=== PATIENT | male | born 1945 | race Caucasian/White ===

== ENCOUNTER 2023-03-13 09:13 | Outpatient (OUT) | payer MEDICARE, SELFPAY ==
--- NOTE | 2023-03-13 13:02 | PM.CN ---
Consult Note: HPI Data of Consult Patient: known to practice within the last 3 years Consult date: 03/13/23 Requesting Physician: DEANNA FAUST NP Primary Care Provider: Valentino ANDRES Consult Narrative Reason for consult: low back pain Narrative: Ramon is here for f/u of first dx MBB bilat L4/5, L5/S1 done 02/25/23. He had 100% relief of pain and increased fx for several hours after procedure. He would like to proceed with the second dx MBB. He is on plavix. No new sensorimotor or bowel or bladder issues. Pain is in bilat lower back worse with ROM. No radicular sx. cc:: CC: DEANNA FAUST NP Review of Systems ROS Status of ROS 10 or more systems reviewed and unremarkable except as noted in history and below [facility] Medical History (Updated 03/13/23 @ 13:06 by DEANNA FAUST NP) Surgical History Meds Home Medications and Allergies Home Medications Medication Instructions Recorded Confirmed Type B complex 11-folic acid 1 mg-C 100 1 tab PO QDAY 03/13/23 03/13/23 History mg-biotin 300 mcg-zinc 50 mg tablet (Dialyvite) acetaminophen 325 mg capsule 500 mg PO QID PRN pain 03/13/23 03/13/23 History (Tylenol) amlodipine 10 mg tablet 10 mg PO QDAY 03/13/23 03/13/23 History ascorbic acid (vitamin C) 1,000 mg 1 g PO QDAY 03/13/23 03/13/23 History tablet (C-1000) aspirin 325 mg tablet,delayed 81 mg PO QDAY 03/13/23 03/13/23 History release atorvastatin 20 mg tablet 20 mg PO QDAY 03/13/23 03/13/23 History baclofen 10 mg tablet 10 mg PO BID 03/13/23 03/13/23 History clopidogrel 75 mg tablet (Plavix) 75 mg PO QDAY 03/13/23 03/13/23 History coenzyme Q10 75 mg capsule (Ultra 75 mg PO QDAY 03/13/23 03/13/23 History CoQ10) glimepiride 1 mg tablet (Amaryl) 1 mg PO QDAY 03/13/23 03/13/23 History hydrocodone 5 mg-acetaminophen 325 1 tab PO BID 03/13/23 03/13/23 History mg tablet insulin glargine 100 unit/mL (3 10 unit subcut QAM 03/13/23 03/13/23 History mL) subcutaneous pen (Lantus Solostar U-100 Insulin) lisinopril 10 mg tablet 10 mg PO QDAY 03/13/23 03/13/23 History metoprolol succinate 25 mg PO QDAY 03/13/23 03/13/23 History omega 5-dip-msb-fish oil 1,000 mg 1 cap PO QDAY 03/13/23 03/13/23 History (120 mg-180 mg) capsule (Fish Oil) oxybutynin chloride 10 mg 10 mg PO QDAY 03/13/23 03/13/23 History tablet,extended release 24 hr vitamin B complex (B 1 tab PO QDAY 03/13/23 03/13/23 History Complex-Vitamin B12 tablet) vitamin E 268 mg (400 unit) capsule 180 mg PO QDAY 03/13/23 03/13/23 History Allergies Allergy/AdvReac Type Severity Reaction Status Date / Time No Known Drug Allergies Allergy Verified 03/13/23 11:51 Exam Constitutional: Common normals: no apparent distress, average body habitus, oriented x3, no limitations, healthy appearing, alert and well nourished Exam limitations: physical limitations General appearance: cooperative, comfortable, well developed and well hydrated Orientation/consciousness: Yes awake, Yes oriented to person, Yes oriented to place and Yes oriented to time HENMT: Common normals: normocephalic Head and scalp: normal to inspection Respiratory: Common normals: normal respiratory effort, no retractions and no use of accessory muscles Effort & inspection: able to speak in complete sentences Back & Pelvis: Lumbar spine/lower back: normal to inspection, ROM limited, pain with ROM, paraspinal muscle tenderness, straight leg raise negative bilaterally and other soft tissue findings (positive facet loading bilat) Other lumbar soft tissue findings laterality: bilateral Extremity: Common normals: normal to inspection and normal capillary refill Other: muscle strength 4/5 bilat with intact sensation to LE bilat Skin: Common normals: no rashes or lesions noted Assessment and Plan Assessment and Plan (1) Lumbar spondylosis: Plan schedule second dx MBB bilat lumbar L4/5, L5/S1 under fluoroscopy with ultimate progression to thermal RFA
== END 2023-03-13 09:14 ==
PROVIDERS: PCP Family Medicine; Visit Provider Nurse Practitioner
DX: M47.816 Spondylosis without myelopathy or radiculopathy, lumbar region (principal)
CPT/HCPCS: G0463

== ENCOUNTER 2023-04-08 09:16 | Day surgery (SDC) | payer MEDICARE, SELFPAY ==
[2023-04-08 11:01] VITALS: BP 156/96; PULSE 62; RESP 18; TEMP 37; O2SAT 98
[2023-04-08 11:07] LABS: Glucometer 222 mg/dL (74-106)
[2023-04-08 11:31] VITALS: RESP 20
[2023-04-08 11:33] VITALS: BP 156/77; PULSE 81; O2SAT 96
[2023-04-08] MEDS: BUPIVACAINE HCL 0.25% PF 25 MG/10 ML VIAL 8 ML INJ (11:34)
[2023-04-08 11:37] VITALS: BP 159/80; PULSE 78; O2SAT 97
--- NOTE | 2023-04-08 11:41 | W.PM.PROCNOT ---
Date of procedure: 04/08/23 Procedure: Bilateral Lumbar 4/5 & 5/Sacral 1 facet injection Preop diagnosis includes pain secondary to lumbar spondylosis, Postop diagnosis same Under fluoroscopic guidance Solution injected: 2milliliters Marcaine 0.25% Anesthesia :none Immediate complications none Time out process compliant After informed consent obtained from the patient placed in the [employer] proposition . area was prepped and draped in a sterile fashion using betadine. 25 gauge spinal needle inserted over each of the above mentioned target areas . [place] were directed towards the target under fluoroscopic guidance . after encountering each of the targets , no indication of intravascular intraneuronal or intrathecal needle tip placement. Then 0 .5 to 1 Milliliter was injected at each level. [place] removed postoperatively. patient transferred to recovery in stable condition to be discharged home after meeting criteria Surgeon: Mery Peterson
== END 2023-04-08 11:42 | disposition home or self-care (01) ==
LOC: SURGOUT 09:19
PROVIDERS: PCP Family Medicine; Visit Provider Anesthesiology Pain Medicine
DX: M47.816 Spondylosis without myelopathy or radiculopathy, lumbar region (principal)
CPT/HCPCS: 36415; 64493; 64494; 82948

== ENCOUNTER 2023-04-24 09:42 | Outpatient (OUT) | payer MEDICARE, SELFPAY ==
--- NOTE | 2023-04-24 10:04 | PM.CN ---
Consult Note: HPI Data of Consult Patient: known to practice within the last 3 years Consult date: 04/24/23 Requesting Physician: DEANNA FAUST NP Primary Care Provider: Valentino ANDRES Consult Narrative Narrative: Here for f/u of second MBB lumbar done 04/08/23. He received 100% relief of pain with increased fx for several hours after procedure. He would like to proceed with RFA of same area. Procedure discussed in detail. Pain is bilat lumbar area worse with all ROM. No radicular sx. No new sensorimotor or bowel or bladder issues. No adverse med SE. cc:: CC: DEANNA FAUST NP Review of Systems ROS Status of ROS 10 or more systems reviewed and unremarkable except as noted in history and below Musculoskeletal Reports: back pain PFSH PFSH Medical History (Updated 04/24/23 @ 10:14 by DEANNA FAUST NP) Surgical History Meds Home Medications and Allergies Home Medications Medication Instructions Recorded Confirmed Type B complex 11-folic acid 1 mg-C 100 1 tab PO QDAY 03/13/23 04/08/23 History mg-biotin 300 mcg-zinc 50 mg tablet (Dialyvite) acetaminophen 325 mg capsule 500 mg PO QID PRN pain 03/13/23 04/08/23 History (Tylenol) amlodipine 10 mg tablet 10 mg PO QDAY 03/13/23 04/08/23 History ascorbic acid (vitamin C) 1,000 mg 1 g PO QDAY 03/13/23 04/08/23 History tablet (C-1000) aspirin 325 mg tablet,delayed 81 mg PO QDAY 03/13/23 04/08/23 History release atorvastatin 20 mg tablet 20 mg PO QDAY 03/13/23 04/08/23 History baclofen 10 mg tablet 10 mg PO BID 03/13/23 04/08/23 History clopidogrel 75 mg tablet (Plavix) 75 mg PO QDAY 03/13/23 04/08/23 History coenzyme Q10 75 mg capsule (Ultra 75 mg PO QDAY 03/13/23 04/08/23 History CoQ10) glimepiride 1 mg tablet (Amaryl) 1 mg PO QDAY 03/13/23 04/08/23 History hydrocodone 5 mg-acetaminophen 325 1 tab PO BID 03/13/23 04/08/23 History mg tablet insulin glargine 100 unit/mL (3 10 unit subcut QAM 03/13/23 04/08/23 History mL) subcutaneous pen (Lantus Solostar U-100 Insulin) lisinopril 10 mg tablet 10 mg PO QDAY 03/13/23 04/08/23 History metoprolol succinate 25 mg PO QDAY 03/13/23 04/08/23 History omega 9-wed-zkm-fish oil 1,000 mg 1 cap PO QDAY 03/13/23 04/08/23 History (120 mg-180 mg) capsule (Fish Oil) oxybutynin chloride 10 mg 10 mg PO QDAY 03/13/23 04/08/23 History tablet,extended release 24 hr vitamin B complex (B 1 tab PO QDAY 03/13/23 04/08/23 History Complex-Vitamin B12 tablet) vitamin E 268 mg (400 unit) capsule 180 mg PO QDAY 03/13/23 04/08/23 History Allergies Allergy/AdvReac Type Severity Reaction Status Date / Time No Known Drug Allergies Allergy Verified 04/08/23 10:57 Exam Constitutional Documenting provider has reviewed patient's vital signs: yes Common normals: no apparent distress, average body habitus, oriented x3, alert and well nourished General appearance: cooperative, comfortable and well developed Orientation/consciousness: Yes awake, Yes oriented to person, Yes oriented to place and Yes oriented to time HENMO Common normals: normocephalic and moist oral mucous membranes Respiratory Common normals: normal respiratory effort, no retractions and no use of accessory muscles Effort & inspection: able to speak in complete sentences and symmetric chest movement Back & Pelvis Lumbar spine/lower back: normal to inspection, ROM limited, pain with ROM, paraspinal muscle tenderness and paraspinal muscle spasm Other: muscle strength 4/5 bilat LE with intact sensation no radicular sx positive facet load bilat Assessment and Plan Assessment and Plan (1) Lumbar spondylosis: (2) Muscle spasm: Plan schedule for right sided thermal RFA L4/5, L5/S1 followed by left RFA L4/5, L5/S1 under fluoroscopy
== END 2023-04-24 09:43 | disposition home or self-care (01) ==
LOC: PM 09:43
PROVIDERS: PCP Family Medicine; Visit Provider Nurse Practitioner
DX: M47.816 Spondylosis without myelopathy or radiculopathy, lumbar region (principal); M62.838 Other muscle spasm
CPT/HCPCS: G0463

== ENCOUNTER 2023-05-22 06:58 | Day surgery (SDC) | payer MEDICARE, SELFPAY ==
[2023-05-22 07:24] VITALS: BP 142/77; PULSE 73; RESP 18; TEMP 36.1; O2SAT 99
[2023-05-22 08:11] VITALS: RESP 20
[2023-05-22 08:13] VITALS: BP 194/63; PULSE 65; O2SAT 96
[2023-05-22 08:15] LABS: Glucometer 107 mg/dL (74-106)
[2023-05-22] MEDS: METHYLPREDNISOLONE ACETATE 40 MG/ML VIAL INJ (08:17)
[2023-05-22] MEDS: BUPIVACAINE HCL 0.25% PF 25 MG/10 ML VIAL 4 ML INJ (08:17)
[2023-05-22] MEDS: LIDOCAINE HCL 2% 400 MG/20 ML MDV 15 ML INJ (08:17)
[2023-05-22 08:19] VITALS: BP 169/77; PULSE 60; O2SAT 97
--- NOTE | 2023-05-22 08:47 | PC.NURSE ---
Stephanie interrogated post procedure, pt tolerated well. [employer] rep received transmission and stated that pacer was working properly. Written report faxed and p laced on pts chart.
--- NOTE | 2023-05-22 11:10 | W.PM.PROCNOT ---
Date of procedure: 05/22/23 Pre-op diagnosis: lumbar spondylosis Post-op diagnosis: same as pre-op Procedure: Right lumbar 4/5, 5/sacral 1 Radiofrequency ablation Under fluoroscopic guidance Rhizotomy was created using radio frequency ablation at 80?C for 90 seconds 1 to 2 lesions created at each site. Post lesioning injection of 2 mL each of 0.25% Marcaine and 2% lidocaine with Depo-Medrol 40mg. 0.5 to 1 mL injected at each site IV in place yes/no If Intravenous fluids: NS at KVO Anesthesia local 2% lidocaine for Anesthesia Other: MAC Timeout process compliant After informed consent obtained.Patient brought to the procedure room placed in the prone position skin overlying the area was prepped and draped in a sterile fashion using betadine. 25 gauge needle was used to create a skin wheal over each of the targeted areas utilizing 2% lidocaine. A rhizotomy needle with a 10 mm active tip was inserted over each of the anesthetized areas and directed towards each of the medial branches accomplished under fluoroscopic guidance. after encountering the same we had positive sensory stimulation, negative motor stimulation was noted. lesions were then created. Post lesioning, steroid solution was injected needles removed. Patient was transferred to recovery room in stable condition to be discharged home after meeting criteria. Anesthesia: MAC Surgeon: Mery Peterson Condition: stable
== END 2023-05-22 08:47 | disposition home or self-care (01) ==
PROVIDERS: PCP Family Medicine; Visit Provider Anesthesiology Pain Medicine
DX: M47.816 Spondylosis without myelopathy or radiculopathy, lumbar region (principal); E11.9 Type 2 diabetes mellitus without complications
CPT/HCPCS: 36415; 36416; 64635; 64636; 82948; J1030

== ENCOUNTER 2023-06-17 09:46 | Day surgery (SDC) | payer MEDICARE, SELFPAY ==
[2023-06-17 10:18] VITALS: BP 151/69; RESP 16; TEMP 37
[2023-06-17 11:15] VITALS: BP 142/69; PULSE 76; RESP 18; O2SAT 99
[2023-06-17] MEDS: LIDOCAINE HCL 2% 400 MG/20 ML MDV 15 ML INJ (11:17)
[2023-06-17] MEDS: BUPIVACAINE HCL 0.25% PF 25 MG/10 ML VIAL INJ (11:17)
[2023-06-17] MEDS: METHYLPREDNISOLONE ACETATE 40 MG/ML VIAL INJ (11:18)
[2023-06-17 11:20] VITALS: BP 140/69; PULSE 63; RESP 18; O2SAT 99
--- NOTE | 2023-06-17 13:03 | PC.NURSE ---
Patient cleared by [employer] Erick tran via phonecall after report transmitted. There was problematic connection on getting it transmitted to them, which was why the patient had to remain in recovery for so long. He was sending report by fax to us.
--- NOTE | 2023-06-17 13:12 | W.PM.PROCNOT ---
Date of procedure: 06/17/23 Pre-op diagnosis: Lumbar spondylosis Post-op diagnosis: same as pre-op Procedure: Left lumbar 4/5, 5/Sacral 1 Radiofrequency ablation Under fluoroscopic guidance Rhizotomy was created using radio frequency ablation at 80?C for 90 seconds 1 to 2 lesions created at each site. Post lesioning injection of 2 mL each of 0.25% Marcaine and 2% lidocaine with Depo-Medrol 40mg. 0.5 to 1 mL injected at each site If Intravenous fluids: NS at KVO Anesthesia local 2% lidocaine for Anesthesia Other: local, no IV Timeout process compliant After informed consent obtained.Patient brought to the procedure room placed in the prone position skin overlying the area was prepped and draped in a sterile fashion using betadine. 25 gauge needle was used to create a skin wheal over each of the targeted areas utilizing 2% lidocaine. A rhizotomy needle with a 10 mm active tip was inserted over each of the anesthetized areas and directed towards each of the medial branches accomplished under fluoroscopic guidance. after encountering the same we had positive sensory stimulation, negative motor stimulation was noted. lesions were then created. Post lesioning, steroid solution was injected needles removed. Patient was transferred to recovery room in stable condition to be discharged home after meeting criteria. Anesthesia: Local Surgeon: eMry Peterson Condition: stable
== END 2023-06-17 12:59 | disposition home or self-care (01) ==
LOC: SURGOUT 09:48
PROVIDERS: PCP Family Medicine; Visit Provider Anesthesiology Pain Medicine
DX: M47.816 Spondylosis without myelopathy or radiculopathy, lumbar region (principal); Z79.84 Long term (current) use of oral hypoglycemic drugs; Z79.4 Long term (current) use of insulin
CPT/HCPCS: 64635; 64636; 82948; J1030

== ENCOUNTER 2023-07-24 09:20 | Outpatient (OUT) | payer MEDICARE, SELFPAY ==
--- NOTE | 2023-07-24 09:45 | P.CN_ITS ---
Consult Note: HPI Data of Consult Patient: known to practice within the last 3 years Requesting Physician: DEANNA FAUST NP Primary Care Provider: Valentino ANDRES Consult Narrative Reason for consult: f/u Narrative: Ramon Mariee a pleasant 78 year old male presents for evaluation and management of chronic low back pain without radiculopathy. Today rating pain 4/10, pain is increased with walking standing ADLS bending lifting and decreased with rest and sleep. Patient recently had left and right L4-5 L5-S1 RFAs with 10% pain relief, no functional improvement per patient. Patient would like to discuss medication management. Patient has been taking tylenol without relief. Previously tried tramadol without relief, had filled hydrocodone-acetaminophen unsure of benefit. cc:: CC: DEANNA FAUST NP Review of Systems ROS Status of ROS 10 or more systems reviewed and unremarkable except as noted in history and below Musculoskeletal Reports: back pain PFSH PFSH Medical History Acute prostatitis ?N41.0 - Acute prostatitis (ICD-10) Angina at rest ?I20.8 - Other forms of angina pectoris (ICD-10) Congestive heart failure ?I50.9 - Heart failure, unspecified (ICD-10) Diabetes ?E11.9 - Type 2 diabetes mellitus without complications (ICD-10) Heart attack ?I21.9 - Acute myocardial infarction, unspecified (ICD-10) High cholesterol ?E78.00 - Pure hypercholesterolemia, unspecified (ICD-10) Hypertension ?I10 - Essential (primary) hypertension (ICD-10) Low back pain ?M54.50 - Low back pain, unspecified (ICD-10) Pacemaker ?Z95.0 - Presence of cardiac pacemaker (ICD-10) Surgical History H/O heart artery stent ?Z95.5 - Presence of coronary angioplasty implant and graft (ICD-10) History of arthroplasty of left knee ?Z96.652 - Presence of left artificial knee joint (ICD-10) History of arthroplasty of right knee ?Z96.651 - Presence of right artificial knee joint (ICD-10) History of cholecystectomy ?Z90.49 - Acquired absence of other specified parts of digestive tract (ICD- 10) Meds Home Medications and Allergies Home Medications Medication Instructions Recorded Confirmed Type B complex 11-folic acid 1 mg-C 100 1 tab PO QDAY 03/13/23 06/17/23 History mg-biotin 300 mcg-zinc 50 mg tablet (Dialyvite) acetaminophen 325 mg capsule 500 mg PO QID PRN pain 03/13/23 06/17/23 History (Tylenol) amlodipine 10 mg tablet 10 mg PO QDAY 03/13/23 06/17/23 History ascorbic acid (vitamin C) 1,000 mg 1 g PO QDAY 03/13/23 06/17/23 History tablet (C-1000) aspirin 325 mg tablet,delayed 81 mg PO QDAY 03/13/23 06/17/23 History release atorvastatin 20 mg tablet 20 mg PO QDAY 03/13/23 06/17/23 History clopidogrel 75 mg tablet (Plavix) 75 mg PO QDAY 03/13/23 06/17/23 History coenzyme Q10 75 mg capsule (Ultra 75 mg PO QDAY 03/13/23 06/17/23 History CoQ10) glimepiride 1 mg tablet (Amaryl) 1 mg PO QDAY 03/13/23 06/17/23 History insulin glargine 100 unit/mL (3 10 unit subcut QAM 03/13/23 06/17/23 History mL) subcutaneous pen (Lantus Solostar U-100 Insulin) lisinopril 10 mg tablet 10 mg PO QDAY 03/13/23 06/17/23 History metoprolol succinate 25 mg PO QDAY 03/13/23 06/17/23 History omega 6-fzv-vui-fish oil 1,000 mg 1 cap PO QDAY 03/13/23 06/17/23 History (120 mg-180 mg) capsule (Fish Oil) oxybutynin chloride 10 mg 10 mg PO QDAY 03/13/23 06/17/23 History tablet,extended release 24 hr vitamin B complex (B 1 tab PO QDAY 03/13/23 06/17/23 History Complex-Vitamin B12 tablet) vitamin E 268 mg (400 unit) capsule 180 mg PO QDAY 03/13/23 06/17/23 History Allergies Allergy/AdvReac Type Severity Reaction Status Date / Time No Known Drug Allergies Allergy Verified 06/17/23 10:24 Exam Constitutional Documenting provider has reviewed patient's vital signs: yes Common normals: no apparent distress, oriented x3, healthy appearing, alert and well nourished General appearance: cooperative HENMT Common normals: normocephalic, hearing grossly normal bilaterally and moist oral mucous membranes Head and scalp: normocephalic Eye Common normals: PERRL Pupil: PERRL Neck & C-Spine Common normals: full ROM General: normal visual inspection Chest Common normals: inspection of chest normal Respiratory Common normals: normal respiratory effort, no retractions and no use of accessory muscles Back & Pelvis Lumbar spine/lower back: ROM limited and pain with ROM Other: positive facet loading in low back no radiculopathy no RADU Extremity Common normals: normal to inspection and full ROM Neuro Common normals: oriented x3, CN's II-XII intact bilaterally, moves all extremities, no focal motor deficits, no sensory deficits noted and deep tendon reflexes 2+ bilaterally Sensorium/orientation: alert Gait (neuro): antalgic Motor exam: strength 5/5 throughout and no movement abnormalities noted Psych Common normals: mental status grossly normal, thought process normal, cooperative, affect normal, speech normal and activity/motor behavior normal Speech: normal speech Thought process: normal thought process Results Additional Findings Additional findings: I have checked an [place] report on this patient today and there are no aberrancies noted in the prescribing history.?? A drug screen was completed and reviewed within the last year, and if there has not been a drug screen completed we ordered one today to monitor higher risk, state monitored pain medication use. As part of providing excellent, safe, comprehensive care, the following was completed at our patient's visit: 1. A medication reconciliation and review to ensure accurate knowledge of current/active medications, including asking our patients to inform us about any [id number]-scl-[id number] medications or herbal remedies/nutritional supplements/alternative remedies. 2. A review to specifically ensure our patients have had annual screening for: elevated body mass index (BMI), tobacco use, screening for depression, and screening for unhealthy alcohol use. When screening is concerning, patients are provided with education and the specific recommendation to discuss the concerning health issue and treatment options with their primary care provider. Assessment and Plan Assessment and Plan (1) Lumbar spondylosis: (2) Muscle spasm: Plan refill hydrocodone-acetaminophen 5-325mg BID PRN moderate to severe pain. no side effects. risks vs benefits discussed. naloxone previously discussed and prescribed continue PRN baclofen 10mg PRN muscle spasms continue OTC tylenol PRN mild to moderate pain continue HEP f/u 3 months
== END 2023-07-24 09:21 | disposition home or self-care (01) ==
PROVIDERS: PCP Family Medicine; Visit Provider Nurse Practitioner
DX: M47.816 Spondylosis without myelopathy or radiculopathy, lumbar region (principal); M62.838 Other muscle spasm
CPT/HCPCS: G0463

== ENCOUNTER 2023-10-23 12:37 | Outpatient (OUT) | payer MEDICARE, SELFPAY ==
--- OUTSIDE RECORDS SUMMARY | 2023-10-23 12:40 | XMS_ITS | CCD ---
Author Name Unknown Address [address] [place] [address] Organization [facility] Care Team Providers Care Reheater Name Role Phone Poli Mercado MD Unavailable Unavailable Ashlee Henry Unavailable Unavailable Danny Thomson Unavailable Unavailable Ashlee Henry Unavailable Unavailable Unavailable Poli Mercado Attending Unavailable Dr. Ashlee Henry Primary Care Unavailable Poli Mercado Attending Unavailable UNKNOWN, PCP Referring Unavailable Dr. Ashlee Henry Primary Care Unavailable Valentino FIELD DO Primary Care Unavailable JOSY LEACH MD Attending Unavailable Valentino FIELD DO Primary Care Unavailable JOSY LEACH MD Referring Unavailable JOSY LEACH MD Attending Unavailable TOM FIELD Primary Care Unavailable Ethan Chowdary Admitting Unavailable Ethan Chowdary Attending Unavailable ORLANDO ., DR SADIE Parry Attending Unavailable ORLANDO ., DR SADIE Parry Admitting Unavailable DMITRY, DR Valentino LOPEZ Primary Care Unavailable DIAMANTE CONNORS Consulting Unavailable ORLANDO ., DR SADIE Parry Attending Unavailable ORLANDO ., DR SADIE Parry Admitting Unavailable DMITRY, DR Valentino LOPEZ Primary Care Unavailable ORLANDO ., DR SADIE Parry Consulting Unavailable ORLANDO ., DR SADIE Parry Attending Unavailable ORLANDO ., DR SADIE Parry Admitting Unavailable DMITRY, DR Valentino LOPEZ Primary Care Unavailable ARAMIS, DR AMATO Consulting Unavailable DEANNA ONTIVEROS Attending Unavailable DEANNA ONTIVEROS Admitting Unavailable DMITRY, DR Valentino LOPEZ Primary Care Unavailable ORLANDO ., DR SADIE Parry Attending Unavailable ORLANDO ., DR SADIE Parry Admitting Unavailable ARAMIS, DR AMATO Consulting Unavailable DR Valentino FIELD Primary Care Unavailable ORLANDO ., DR SADIE Parry Consulting Unavailable PERRY ., DR SADIE Parry Attending Unavailable PERRY ., DR SADIE Parry Admitting Unavailable KAFTAN, DR Valentino LOPEZ Primary Care Unavailable PERRY ., DR SADIE Parry Consulting Unavailable SPAULDING ., DIAMANTE Consulting Unavailable PERRY ., DR SADIE Parry Attending Unavailable SPAULDING ., DIAMANTE Consulting Unavailable KAFTAN, DR Valentino LOPEZ Primary Care Unavailable PERRY ., DR SADIE Parry Admitting Unavailable PERRY ., DR SADIE Parry Attending Unavailable SPAULDING ., DIAMANTE Consulting Unavailable KAFTAN, DR Valentino LOPEZ Primary Care Unavailable PERRY ., DR SADIE Parry Admitting Unavailable LAKSHMIPATHY ., NARENDRANATH Admitting Josy vailable LAKSHMIPATHY ., NARENDRANATH Consulting Josy vailable KAFTAN, DR Valentino LOPEZ Primary Care Unavailable LAKSHMIPATHY ., NARENDRANATH Attending Josy vailable SPAULDING ., DIAMANTE Attending Unavailable SPAULDING ., DIAMANTE Admitting Unavailable KALEIGHTON, DR Valentino LOPEZ Primary Care Unavailable LAKSHMIPATHY ., NARENDRANATH Attending Josy vailable LAKSHMIPATHY ., NARENDRANATH Admitting Josy vailable LAKSHMIPATHY ., NARENDRANATH Consulting Josy vailable KAFTAN, DR Valentino LOPEZ Primary Care Unavailable LAKSHMIPATHY ., NARENDRANATH Attending Josy vailable LAKSHMIPATHY ., NARENDRANATH Admitting Josy vailable LAKSHMIPATHY ., NARENDRANATH Consulting Josy vailable KALEIGHTON, DR Valentino LOPEZ Primary Care Unavailable Gregory Ybarra Unavailable MD Gregory Ybarra Attending Provider [phone] DO Benedicto Field Primary Care Provider DO Benedicto Field Referring Provider [phone] DO Benedicto Field Primary Care Provider MD Gregory Ybarra Attending Provider Benedicto Field Primary Care Unavailable Benedicto Field Referring Unavailable Gregory Ybarra Admitting Unavailable Gregory Ybarra Attending Unavailable Gregory Ybarra Admitting Unavailable Gregory Ybarra Attending Unavailable Benedicto Field Primary Care Unavailable TOM FIELD Attending Unavailable TOM FIELD Referring Unavailable SADIA CARRINGTON Attending Unavailable DAJA GUERRERO Attending Unavailable TOM FIELD Referring Unavailable DAJA GUERRERO Attending Unavailable TOM FIELD Referring Unavailable DAJA GUERRERO Attending Unavailable TOM FIELD Attending Unavailable TOM FIELD Referring Unavailable Medications Current Medications Medication Drug Class(es) Dates Sig (Normalized) Sig (Original) ascorbic acid 1000 mg oral tablet (1 source) Vitamin C take 1 tablet by mouth once daily Ascorbic Acid 1000 MG 1 tablet Orally Once a day Active aspirin 81 mg delayed release oral tablet (3 sources) Platelet Aggregation Inhibitor, Nonsteroidal Anti-inflammatory Drug Start: 06-04-2020 take 1 tablet by mouth once daily Aspirin (Ecotrin Low Strength) 81 mg Tablet,Delayed Release (Dr/Ec) Active 81 MG PO Daily June 03, 2020 11:00pm take 1 tablet by mouth once jean-pierre y Aspirin 81 81 MG 1 tablet Orally Once a day Active atorvastatin 20 mg oral tablet (20 sources) HMG-CoA Reductase Inhibitor Start: 04-12-2019 Atorvastatin Active TABLET June 03, 2020 11:00pm take 1 tablet by libra th every twenty-four hours Atorvastatin Calcium 10 MG 1 tablet Oral ly Once a day Active clopidogrel 75 mg oral tablet (20 sources) P2Y12 Platelet Inhibitor Start: 05-12-2012 Clopidogrel Active TABLET June 03, 2020 11:00pm CPAP Machine (1 source) CPAP Machine Act rosalva Fish Oils (1 source) take 1 capsule by mouth once daily Fish Oil 1000 MG 1 capsule Orally Once a day Active furosemide 40 mg oral tablet (1 source) Loop Diuretic take 1 tablet by mouth every twenty-four hours Furosemide 40 MG 1 tablet Orally Once a day Active glimepiride 1 mg oral tablet (20 sources) Sulfonylurea Start: 04-07-2019 Glimepiride Active MG TABLET June 03, 2020 11:00pm levothyroxine sodium 0.025 mg oral tablet (2 sources) l-Thyroxine Start: 06-04-2020 Levothyroxine Active TABLET June 03, 2020 11:00pm turmeric extract 450 mg oral capsule (1 source) Turmeric 450 MG as directed Orally Active ubidecarenone 200 mg oral capsule (1 source) CoQ10 200 MG as directed Orally Active vitamin B12 (1 source) Vitamin B12 Vitamin B12 Acti ve Vitamin D3 (1 source) Vitamin D3 Activ e Completed/Discontinued Medications Medication Drug Class(es) Dates Sig (Normalized) Sig (Original) acetaminophen 325 mg oral capsule (20 sources) Start: 08-15-2016 Tylenol 325 MG Oral Capsule as directed Quantity: 0 Refills: 0 Ordered: 15-Aug-2016 DO Start : 15-Aug-2016 Active Start: 08-15-2016 Tylenol 325 MG Oral Capsule as directed Refills: 0 Start : 15-Aug-2016 Active Tylenol Active amLODIPine 10 mg oral tablet (20 sources) Dihydropyridine Calcium Channel Mckenna Start: 08-25-2019 take 1 tablet by mouth once daily amLODIPine Besylate 10 MG Oral Tablet TAKE 1 TABLET BY MOUTH EVERY DAY Quantity: 90 Refills: 2 Ordered: 09-Jun-2020 Poli Mercado MD Start : 25-Aug-2019 Active azithromycin 250 mg oral tablet (1 source) Macrolide Antimicrobial Start: 03-28-2022 Azithromycin 250 MG Oral Tablet Quantity: 6 Refills: 0 Ordered: 28-Mar-2022 DO Start : 28-Mar-2022 Complete benzonatate 200 mg oral capsule (1 source) Non-narcotic Antitussive Start: 03-28-2022 take 1 capsule by mouth three times daily as needed Benzonatate 200 MG Oral Capsule TAKE 1 CAPSULE BY MOUTH THREE TIMES A DAY NEEDED Quantity: 20 Refills: 0 Ordered: 28-Mar-2022 DO Start : 28-Mar-2022 Complete doxycycline hyclate 100 mg oral capsule (3 sources) Tetracycline-class Drug Start: 10-17-2021 Doxycycline Hyclate 100 MG Oral Capsule Quantity: 10 Refills: 0 Ordered: 18-Oct-2021 DO Start : 17-Oct-2021 Complete Start: 06-04-2020 take 100 mg by mouth twice daily Doxycycline Hyclate Active 100 MG PO Twice daily June 03, 2020 11:00pm famotidine 20 mg oral tablet (18 sources) Histamine-2 Receptor Antagonist Start: 06-25-2021 Famotidine 20 MG Oral Tablet Quantity: 90 Refills: 0 Ordered: 25-Jun-2021 DO Start : 25-Jun-2021 Active ferrous sulfate 325 mg oral tablet (2 sources) Start: 05-05-2022 take 1 tablet by mouth twice daily Ferrous Sulfate 325 (65 Fe) MG Oral Tablet TAKE 1 TABLET BY MOUTH TWICE A DAY Quantity: 180 Refills: 0 Ordered: 05-May-2022 DO Start : 05-May-2022 Complete take 1 tablet by libra th every twenty-four hours Ferrous Sulfate 325 (65 Fe) MG 1 tablet Orally Once a day Active FreeStyle InsuLinx System w/Device Kit (2 sources) Start: 08-19-2017 FreeStyle Insu Linx System w/Device Kit USE DIRECTED Quantity: 1 Refills: 0 Poli Mercado MD Start : 19-Aug-2017 Active 3 ml insulin glargine 100 unt/ml pen injector (20 sources) Insulin Analog Start: 11-12-2012 Lantus SoloSta r 100 UNIT/ML Subcutaneous Solution Pen-injector INJECT 20 UNITS SUBCUTANEOUSLY EVERY DAY OR AMOUNT DIRECTED Quantity: 1 Refills: 1 Ordered: 10-May-2022 Poli Mercado MD Start : 12-Nov-2012 Active Lantus SoloStar 100 UNIT/ML 8 units as directed Subcutaneous Active ammonium lactate 120 mg/ml topical lotion (4 sources) Start: 08-22-2017 AmLactin 12 % External Lotion APPLY AND RUB IN A THIN FILM TO AFFECTED AREAS TWICE DAILY.(AM AND PM). Quantity: 1 Refills: 5 Ordered: 22-Aug-2017 Poli Mercado MD Start : 22-Aug-2017 Active Start: 08-22-2017 AmLactin 12 % External Lotion APPLY AND RUB IN A THIN FILM TO AFFECTED AREAS TWICE DAILY.(AM AND PM). Quantity: 1 Refills: 5 Poli Mercado MD Start : 22-Aug-2017 Active 225 GM Bottle lisinopril 20 mg oral tablet (20 sources) Angiotensin Converting Enzyme Inhibitor Start: 05-16-2021 Lisinopril 10 MG Ora l Tablet Quantity: 90 Refills: 0 Ordered: 12-Aug-2021 DO Start : 16-May-2021 Active Start: 06-04-2020 Lisinopril Act rosalva TABLET June 03, 2020 11:00pm meloxicam 15 mg oral tablet (3 sources) Nonsteroidal Anti-inflammatory Drug Start: 08-11-2020 Meloxicam 15 MG Oral Tablet Quantity: 30 Refills: 0 Ordered: 20-Feb-2021 DO Start : 11-Aug-2020 Active 24 hr metoprolol succinate 25 mg extended release oral tablet (18 sources) beta-Adrenergic Mckenna Start: 03-27-2021 take 1 tablet by mouth every twenty-four hours Metoprolol Succinate ER 25 MG Oral Tablet Extended Release 24 Hour Quantity: 90 Refills: 0 Ordered: 22-Jun-2021 DO Start : 27-Mar-2021 Active oseltamivir 30 mg oral capsule (1 source) Neuraminidase Inhibitor Start: 03-18-2022 take 1 capsule by mouth twice daily Oseltamivir Phosphate 30 MG Oral Capsule TAKE 1 CAPSULE BY MOUTH TWICE DAILY FOR 5 DAYS Quantity: 10 Refills: 0 Ordered: 18-Mar-2022 DO Start : 18-Mar-2022 Complete 24 hr oxybutynin chloride 10 mg extended release oral tablet (19 sources) Cholinergic Muscarinic Antagonist Start: 10-19-2020 take 1 tablet by mouth every twenty-four hours Oxybutynin Chloride ER 10 MG Oral Tablet Extended Release 24 Hour Quantity: 90 Refills: 0 Ordered: 02-Jul-2021 DO Start : 19-Oct-2020 Active take 1 tablet by libra th every twenty-four hours oxyBUTYnin Chloride ER 10 MG 1 tablet Orally Once a day Active ramipril 10 mg oral capsule (13 sources) Angiotensin Converting Enzyme Inhibitor Start: 08-31-2012 take 1 capsule by mouth once daily Ramipril 10 MG Oral Capsule TAKE 1 CAPSULE BY MOUTH DAILY Quantity: 90 Refills: 3 Ordered: 30-Jul-2019 Poli Mercado MD Start : 31-Aug-2012 Active sildenafil 100 mg oral tablet (1 source) Phosphodiesterase 5 Inhibitor Start: 01-24-2022 take 1 tablet by mouth once daily as needed Sildenafil Citrate 100 MG Oral Tablet TAKE 1 TABLET BY MOUTH NEEDED ONCE DAILY Quantity: 30 Refills: 0 Ordered: 24-Jan-2022 DO Start : 24-Jan-2022 Complete traMADol hydrochloride 50 mg oral tablet (19 sources) Opioid Agonist Start: 03-29-2021 traMADol HCl - 50 MG Oral Tablet Quantity: 120 Refills: 0 Ordered: 29-Mar-2021 DO Start : 29-Mar-2021 Active take 1 tablet by libra th every twenty-four hours traMADol HCl 50 MG 1 tablet as needed Orally Once a day Active Problems Active Problems Problem Classification Problem Date Documented Date Episodic/Chronic Congestive heart failure; nonhypertensive (2 sources) Chronic systolic heart failure; Translations: [Chronic systolic (congestive) heart failure] Chronic Coronary atherosclerosis and other heart disease (20 sources) Coronary arteriosclerosis; Translations: [Coronary atherosclerosis of unspecified type of vessel, cabazon or graft] Chronic Diabetes mellitus without complication (20 sources) Secondary diabetes mellitus; Translations: [Secondary diabetes mellitus without mention of complication, not stated as uncontrolled, or unspecified] Onset: 10-03-2022 Chronic Disorders of lipid metabolism (20 sources) Hyperlipidemia; Translations: [Other and unspecified hyperlipidemia] Chronic Essential hypertension (20 sources) Hypertensive disorder; Translations: [Unspecified essential hypertension] Chronic Joint disorders and dislocations; trauma-related (20 sources) Tear of medial meniscus of knee; Translations: [Tear of medial cartilage or meniscus of knee, current] Episodic Nutritional deficiencies (20 sources) Vitamin D deficiency; Translations: [Unspecified vitamin D deficiency] Chronic Other connective tissue disease (20 sources) Pain in lower limb; Translations: [Pain in limb] Episodic Other connective tissue disease (20 sources) H/O: osteoarthritis; Translations: [Personal history of arthritis] Episodic Other connective tissue disease (5 sources) Other muscle spasm; Translations: [OTHER MUSCLE SPASM] Onset: 11-12-2022 Episodic Other diseases of veins and lymphatics (20 sources) Vascular insufficiency; Translations: [Venous (peripheral) insufficiency, unspecified] Episodic Other lower respiratory disease (20 sources) Snoring; Translations: [Other respiratory abnormalities] Episodic Other male genital disorders (20 sources) H/O: male genital disorder; Translations: [Personal history of other specified diseases] Episodic Other nervous system disorders (1 source) H/O: eye disorder; Translations: [Personal history of other disorders of nervous system and sense organs] Episodic Other nervous system disorders (20 sources) Personal history of other diseases of the nervous system and sense organs; Translations: [History of conjunctivitis] Episodic Other nutritional; endocrine; and metabolic disorders (20 sources) Obesity; Translations: [Obesity, unspecified] Chronic Other nutritional; endocrine; and metabolic disorders (20 sources) Hyperphosphatemia; 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] Chronic Other nutritional; endocrine; and metabolic disorders (1 source) Body mass index 30+ - obesity; Translations: [Body mass index (BMI) 31.0-31.9, adult] Chronic Other nutritional; endocrine; and metabolic disorders (1 source) Body mass index (BMI) 31.0-31.9, adult Chronic Other nutritional; endocrine; and metabolic disorders (20 sources) H/O: raised blood lipids; Translations: [Personal history of other endocrine, metabolic, and immunity disorders] Episodic Other screening for suspected conditions (not mental disorders or infectious disease) (20 sources) Patient encounter status; Translations: [Screening for malignant neoplasms of prostate] Episodic Peripheral and visceral atherosclerosis (20 sources) Peripheral vascular disease, unspecified; Translations: [PAD (peripheral artery disease)] Chronic Residual codes; unclassified (20 sources) Obstructive sleep apnea syndrome; Translations: [Obstructive sleep apnea (adult)(pediatric)] Chronic Residual codes; unclassified (2 sources) Sleep apnea, unspecified; Translations: [Sleep apnea] Onset: 07-02-2023 Chronic Residual codes; unclassified (1 source) Obstructive sleep apnea (adult) (pediatric) Chronic Residual codes; unclassified (1 source) Obstructive sleep apnea (adult)(pediatric); Translations: [Obstructive sleep apnea (adult) (pediatric)] Onset: 10-01-2023 Chronic Residual codes; unclassified (1 source) Family history of malignant neoplasm of digestive organs; Translations: [Family history of colon cancer] Episodic Residual codes; unclassified (1 source) Other specified health status Episodic Skin and subcutaneous tissue infections (2 sources) Cellulitis; Translations: [Cellulitis, unspecified] 06-04-2020 Episodic Spondylosis; intervertebral disc disorders; other back problems (8 sources) Spondylosis without myelopathy or radiculopathy, lumbosacral region; Translations: [Other spondylosis, sacral and sacrococcygeal region] Onset: 02-28-2022 Chronic Spondylosis; intervertebral disc disorders; other back problems (18 sources) Spinal stenosis, site unspecified; Translations: [Radiculopathy, lumbar region] Onset: 05-23-2022 Episodic Unclassified (4 sources) LOW BACK PAIN, UNSPECIFIED; Translations: [LOW BACK PAIN, UNSPECIFIED] Onset: 03-06-2022 Past or Other Problems Problem Classification Problem Date Documented Da te Episodic/Chronic Other connective tissue disease (1 source) Muscle wasting and atrophy, not elsewhere classified, unspecified site; Translations: [MUSCLE WASTING ATROPHY NEC UNS SITE] Onset: 05-27-2022 Episodic Unclassified (1 source) LOW BACK PAIN, UNSPECIFIED; Translations: [LOW BACK PAIN, UNSPECIFIED] Onset: 02-06-2023 NEGATED: Highlighted row has not occurred!Residual codes; unclassified (6 sources) Disease Episodic Results Test Name Value Interpretation Reference Range Facility POINT OF CARE GLUCOSEon 05- Glucose [Mass/Vol] 223 mg/dL Critically high 74-[address] [facility] Comment on above: Performed By: #### P OCGLUC #### [facility] [address] [place] [address] Dr. Radha Camarena Coding Summaryon 01-30-2023 Coding Summary HTMLBase 64 EboczxecNEk7zYi+PGhlYW Q+EL0SPMBsM37zbSDwxX9R Q9rIKY2VWLTRYJICRX9JIN 1zjNG8BQifS1GkiiSs ShajhFOaHO57EBm6UEF8fY ekBApspS9nxVGlL7k7OiBj YG23wB43PVtpMOBrOuU5Gw ZpbjsgbWFy N8gwPwHxtJHoHtg+PHRhYm xlIHdpZHRoPScxMDAlJyBz aEhgWA7vAm3cYBStZXBweF xhcHNlOiBj g7jyJAXkGIlpAU1ipFxoF7 GrtWP0FOGxt9o4Ms13pCH+ IIImFFL5rVaiQZazx705Ep Cbu2drDVY4 jUSqEDtfKFQ8U13ag9B5KD HkDVEhENQ1pAA8cD4udYul vfqzI3WddXSmMpI6GSV0kZ VsnN1rfDcn lrdktO5pEtx+J51NRD3ZXY CCPY0MBrq3H7TsOochrHS+ GV45OLWdWP12mLNwxQQec9 ohgGc7WyHf PCEnXIO1yLmcOCupy1GzJV BoH68gaWWjj2Q8KFShwTwt vXBqLvIqwSR1tP1iKQnxxp lal9ajcvxf Ptxph5zokp51aR81Q57mUW usVBFeKAW9WKAwMGZwsDvs tz6ifQ0nFm6+ZFveb5owg5 joiQc5PgUy JABbijQjhRedQCJ3u9RmUn 40S4SrcVbcr1ScMjk9dq65 xFKyj8R4tFP8ACrkQLAtrV 2pDNpdWkJ8 OONgBnYlwQ29zTXyOWpfJz 9mwMfwaIuwZO3mGRAyqwtu EWReyN8eZUCrdWCncQdwUE 4wNTBpbjtm b483MxJaURW7GZGuyRFxE7 UnwJ6mZdEyUMBaBRYrW5Zb kOOuQYwqE745KEuuLlB6WI RusfYiV4Fp KJFarLmbOxY0j4O9Ip9Zj6 JbvpheEXF5OOryIKY7EtBs DuBfMdO5F3HqYyh6EECljR vlSC9eV2Lk LNKeqjuqqixqeKG7PRGfEA ZneK19vROyCJzbAt0kh0X5 u134BGNfWXPteF51Va5aiI ogMTBwdCBU hD4voyrcr2mjcwwcGbEbWP IwZIr4OKj6RHIbnEjmXyJm IVM0FuG1CKC3cWTeaX2npP qrafxcmO1t Oyc+Q25lhE6hZCU1OON1cl ofPEKuqxTmYG48LW19D1Di PjwvdGFibGU+PGRpdiBzdH amGQ1dHkVm y1ldy5BvGWcoP5PiLMDoQS kpJgk4QZMhUWB4jKP1fY1v QIPvSTajt9K0pQA9J4Peic Gyuz2vi3rd TEYbEJgyW90wlUBkc4T5PJ ZqmPA7YWYmkVwtMxMdvO09 Oyc+RJWtuObgj1ZuFntpp2 uqe1bgmFh6 HaNsGQPgelEsbHcyOQK5b6 DnJv67W66hDWpoBUOkDRJm KZBrMOLmzNsjdb1uwV7kHd 8+PGNvbCB3 cVH9oA4kTFLjYdC3FJmuA0 76EpJjfHAdJicsr2vor8xv gIy3TdAkOYDowgLjiKpbZU I6z3AjId66 F47tPTebUQIrJJZeSEKuMB DitJihgs8zxZ2bHy2+PC9j e0mrsz82lH84uKM+PHRkIH M7aDysLMha AZNyuZ8hKXazOsS2LDPgRe AwrJ93iYUnIHcdOw7leTmq xJliLP5iNOImndclo950Us Eqh1edOIVx pPTtEOspAQX9J68qr3A1UF OjCUDuVFX1xQX5eJ1dtXdd bjogbGVmdDsgdmVydGljYW arGAqvG636 IHRvcDsnPlBhdGllbnQgTm XgEQb6A6EnJiw3LQRnuIoa ZH7kvELyWVyeBj9upTyjeD pdOU1jNSGf rgsjf287PdNfp4yfINGxwP IsVUchHVF6T81fn3D2JWWe SPTiVFC7iEK9kP2vnSlpnt ogbGVmdDsg mqCxqZitAQrvOBzyJ685DZ RvcDsnPkJpcnRoIERhdGU6 LE53OO16eTKhu3I3lEB9K4 BhZGRpbmct znsjkCN7TGToTOKybP97Np 0frMzcWl9bNWAwMQG4CFPy tLKnA4OicX9uFmAnMYKdJG ZmA3SfvZDh DAsdB914ILzdTcV1DYLbbx ViU4WvFRBcrCrxUhA3g6J6 Eh8KO0Q2DA23RH68eHWyo8 S9yMQ2S1Tn JFSlqqrfcjimtGH6KEIsSS OrmH01Kw1qvFppTn1cQXBk EWX3WIGcdAEdK9VtdT7bOl AjMDAwMDAw Y4HkrDJhNLygY431WIejRp Q0QZXcvgOyC6OqQHTopSkw VyX8w0R1Yu2ASSi9XB70QO 04oHIwl6G4 aCB0C5KbBNAyfzsyuynddE U4JYOdEAOldM89Ro9zlGel Pf8cQOEkDPL6YAOoiCYgF1 HgtI3aZmHf MOHeOBQqS9DkhZMwMSqsU7 40ELddIlZ1DMMiehLyD4Ul ZCLenSglKkB5o0W8Ol0ZCI HbAK86IYR8 zER5CU96SE34A3LzSzwpaJ FibGU+PHRhYmxlIHdpZHRo JTxtOLQzYkWcsUixDL4qTd 9yZGVyLWNv dWlkiOVzPmWxf8njKELlKC skOR4zwRmqJ6VryIL8DSQf h2w9Qx47Y92iO5ZgjGW+PG FvzDX9pRA1 yM6kEdNlWkP1YTkqL083Xk DecQKrNahzm7ksc1gqxAi7 SzR5XVWvjrPqfDdbQTY4o1 OcFf73K52r IHdpZHRoPSIxNSUiIHZhbG jgdr2ltQ9cLc8+PGNvbCB3 rUI4yC4uLpToDoV3IUpeZ1 49InRvcCIv Yfjnh8ced1hsuCh8LvDzMK LyatHlxGwmELS3b9MaFp70 G6ArhDqkb9ZiYvv4wt82oJ Lox9M1vUX7 L7KhHKXyzdbalLOmxSeeKE 0gWFBfopkhPWDrmV8tMORv W1b8UpQjFdW2TLcmN4Gxux P1LBBrpPYd IKriNGJ0T83gh7N8OVQxAA GgBLJ8wGW0uO0ooJukzulh bGVmdDsgdmVydGljYWwtYW leU902KSVm nSnqOLGpoV5rJTUswPTdgT kqNF2zUYTuvlriHyaUCCiS JjvvH6rPIFdJUILDUOUNYT JKNT41OC54 jRKlw0U2fPD1Q3CcYBTauy hholljlHZ0GLMrDDFghE82 mIFaGHrjAr2jb7X5q289FO BcROQauU57 Zh7lsHfsYVTfqEFGcT2ahf tid8jjiymxZvReDAZuMBi9 SJd9EXGipCmmRqUbXDS8Rg D4KDT1zHEc tL0nzBpqiqazwT0rPoc+MT LsRDmtOQe7SXyzwXM+PHRk NBA9kWrqFYxwOZXkvW1iKZ GyJ7h6ArLg KbV6QOpoL9TqOOJczkfnQn 44lA5dLwJgKyW3KTmcR6Fd rlJ1YOJmwMGjAYzpUKR6H9 8zb6C4LZWz DRUuGUS9fMY7nF7dbKtxvn ogbGVmdDsgdmVydGljYWwt COfqR810AVTqsNdxFrx4VF cbJLQuOG73 MQ65pBQzv1F9gZQ1S9UjUQ AakpulrchtcWC5COMnMONg yT94jPNjKJqrZg1bq5O0s0 06IDAuMDUw oR18Oe1gsOjiRDPfmMTDmW 9ppystu6yveduaXjYjMGIt MNk3YJp8KVSsjQnqVhAhQY G7PiK5IVD4 kUSaqF3jiFltblozfZ9fQd c+TUFMRTwvdGQ+PHRkIHN0 xRntPXgiZSWfuT2pGFOsJ5 y6SxWuSqP3 IQssY0ZgFCIxnkhsEo25vZ 0dIiAhWpO5SLahX8AcmzU9 FQZlfDAwVXzzROG3H01zx9 D6LMYrYODm NLC0nCK6rE4pfUrbizuhrP VmdDsgdmVydGljYWwtYWxp U768CGCxlThtFb9PXK15EF 21A0DdXalh dGFibGU+PHRhYmxlIHdpZH PjPFncVQEnIiFqmZdiNC8t Kn6xPENkEEJjlXykdOIeTm Fiu2viCMXg PJrlLH6lmQlcJ0FcqBX4GD Njc7z6Yc66N54nZ0MezMG+ NGWydZC1oVH3bS6eJtOsSd K4CQgqR200 NwUteGVfBptoa4wfg4gmqI p0MaKnZVZcgiXwmHqqDJF9 u1QzJw46I21kRXmeDGKmJC IyMCUiIHZh jUqmke3wcD1eBk9+PGNvbC O9pMI8oF6lVcOwLsW6VSdm I294FwBnjOPwHbvbS97mU9 JvdXA+PHRy Fym2KQKalFtbCL3tcPVnGT jiOq7uEXG9XpEqJjSnCHec O0YvZHJczmytkfaykAZ9YJ YnCKExlX55 Bs5nkSphGn2bMLRpDLQ3UL BlbDDtM3KryE6fKlJiVBKd QBCmK4MzzBQjCXubH462AW pyPgH2YLVs kcAxX7JjUBUlhPaiKpM9e0 K1Bw5NyNdjlIPaCE9pJqTs YOg6R2WeTgd7RWNvlUsbZM 0ncGFkZGlu Od6qpUoleIzvIQ3fTFIptk lci016HpZxe5eeWKIqeSDd YXzgSNJ0D88bt8T7JZYgVY HyYGL5dJI6 rH9gmRayaulatADjfNvkgn GjlAjgXIutMWwxJ238YGMg aVooTfUMUul8R0WuAlv9WV HxtLswGT5o sLMxCIfjOh7zuTwnhAvgYD 5cZKKbcrdjy392XiUza4nu IBChwKStNRngGLX3V54ag8 V3XMDbWDCw EBS5vCD4gE4qqLcyzkyptJ VmdDsgdmVydGljYWwtYWxp P825GOAdkXhtCw4QYzh7Q9 TdMkw6RIYn pGwwBK6isTXvQEmhWv8ryO pufFcmLH9gGWEvntcju810 IyUyp7ynKOGpfVYjIOxhNF Q1A34hw8G7 LZZkDTDiHYD7dIW2eB1acV lnbjogbGVmdDsgdmVydGlj UHvwSFdrE549TNXtsMzqLg BheWVyOjwv dGQ+GT85eq43S2AnCnjhOq y8XMZlGMV9rCW1sZ4nMWXh CMffy2L6sLE0Y2UxfkOkib 3am8srPQNh ZTo (more content not included)... Normal [facility] Provider [place]erson 01-29-2023 Provider Orders [id number]#1.0 0OTGTIFF Normal [facility] PSA Diagnosticon 01-28-2023 PSA Diagnostic 5.10 ng/mL High 0.00-4.00 [facility] Comment on above: Result Comment: [employer] Clinical System (Chemiluminescence) Values obtained with different assay methods or kits cannot be used interchangeably. Results cannot be interpreted as absolute evidence of the presence or absence of malignant disease. Performed By: #### [id number] #### [facility] (DEFAULT) [address] [place] [address] MR LUMBAR SPINE WO CONTRASTo n 12-06-2022 MR LUMBAR SPINE WO CONTRAST MR LUMBAR SPINE WITHOUT IV CONTRAST TECHNIQUE: Sagittal T2, T1 and STIR; axial T1 and T2 weighted images. ORDERING PROVIDER: JOSY LEACH CLINICAL STATEMENT: M54.50;PAIN. TECHNOLOGIST NOTES: WHAT SYMPTOMS ARE YOU EXPERIENCING? - back pain pt has a medtronic pacemaker COMPARISON: MRI lumbar spine 07/06/2021. Lumbar spine radiograph same day. FINDINGS: For purposes of this dictation, it is assumed that there are 5 nus-cma-qdhgmxt, lumbar-type vertebrae, and the most caudal fully segmented lumbar vertebra is labeled L5. Anatomic alignment without acute fracture. No pathologic marrow replacement. The conus medullaris terminates at a normal level and the nerve roots of the cauda equina appear normal. The included paraspinal soft tissues and retroperitoneal structures are grossly normal. L1-2: Mild left greater than right foraminal stenosis. Small disc protrusion. Mild facet hypertrophy. L2-3: Mild left greater than right foraminal stenosis. Mild spinal canal stenosis. Disc extrusions into the foraminal zones. Mild to moderate facet hypertrophy. L3-4: Moderate bilateral foraminal stenosis, unchanged. Unchanged severe spinal canal stenosis. Broad disc extrusion. Moderate facet hypertrophy. L4-5: Unchanged moderate to severe bilateral foraminal stenosis and spinal canal stenosis. Disc extrusion. Severe facet hypertrophy with ligament flavum hypertrophy. L5-S1: Unchanged bilateral severe foraminal stenosis. Mild spinal canal stenosis. Severe facet hypertrophy. Disc extrusions into the right greater left subarticular zone with mass effect on the descending right S1 nerve root, also unchanged. IMPRESSION: Unchanged exam with multilevel degenerative disc disease and facet arthropathy detailed as above with severe spinal canal stenosis at L3-4 and L4-5 with severe bilateral foraminal stenosis at L5-S1. Electronically signed by: Inder Robb MD 12/06/2022 8:40 AM THERAPEUTIC PROGRAM WORKER Technologist: JR SHEFALI Dictated By: INDER ROBB DO Signed By: INDER ROBB DO Signed Out: 12/06/22 09:40:58 Normal [facility] XR LS SPINE W BEND MIN 6 VIE WSon 12-05-2022 XR LS SPINE W BEND MIN 6 VIEWS EXAM: XR LS SPINE W BEND MIN 6 VIEWS 12/02/2022 10:45 AM THERAPEUTIC PROGRAM WORKER HISTORY: BACK PAIN TECHNOLOGIST NOTES: WHAT SYMPTOMS ARE YOU EXPERIENCING? - low back pain COMPARISON: MRI December 02, 2022 FINDINGS: No compression deformity, malalignment or instability is evident in the lumbar spine. Multilevel endplate spurring is present. Mild disc space narrowing is present at L2-S1 levels. No pars defects are evident. Paraspinal soft tissue planes are maintained. Vascular calcifications are present. IMPRESSION: No compression deformity or significant listhesis. Multilevel degenerative disc disease. Electronically signed by: Chente Reaves MD 12/05/2022 3:25 PM THERAPEUTIC PROGRAM WORKER Technologist: SANTOSH TABARES Dictated By: CHENTE REAVES MD Signed By: CHENTE REAVES MD Signed Out: 12/05/22 16:25:19 Normal [facility] POINT OF CARE GLUCOSEon 12-2 Glucose [Mass/Vol] 95 mg/dL Normal 74-106 [facility] Comment on above: Performed By: #### P OCGLUC #### [facility] [address] [place], [place] [address] Dr. Radha Camarena XR Chest 2 Views*on 09-02-20 22 XR Chest 2 Views* CLINICAL HISTORY: Cough. COMPARISON: None. TECHNIQUE: Chest radiographs, PA and lateral RESULT: Eventration right hemidiaphragm. No distinct focal consolidation. No pleural effusion. No pneumothorax. Enlarged cardiomediastinal silhouette. Aortic vascular calcifications. Granulomatous calcifications. No acute osseous findings. Degenerative changes. Bridging endplate osteophytes. Left transvenous pacemaker. IMPRESSION: No acute radiographic abnormality. Report reported and signed by Roe Garcia on 09/02/2022 1057 Normal [facility] HEMOGLOBIN A1Con 05-28-2022 Glucose [Mass/Vol] 160 mg/dL Normal [facility] Comment on above: Order Comment: PATIE NT FASTING Performed By: #### H BA1E #### [facility] [address] [place] [address] HbA1c (Bld) [Mass fraction] 7.2 % Abnormal [facility] Comment on above: Order Comment: PATIE NT FASTING Result Comment: Diag nosis of Diabetes-Adults Non-Diabetic: < or = 5.6% Increased risk for developing diabetes: 5.7-6.4% Diagnostic of diabetes: > or = 6.5% . Monitoring of Diabetes Age (y) Therapeutic Goal (%) Adults: >18 <7.0 Pediatrics: 13-18 <7.5 7-12 <8.0 0- 6 7.5-8.5 [place] [employer]. Diabetes Care 33(S1), Oct 2009. Performed By: #### H BA1E #### [facility] [address] [place] [address] BASIC METABOLIC PANELon 05-13 Anion gap [Moles/Vol] 13 mmol/L Normal 10 - 20 [facility] Comment on above: Order Comment: PATIE NT FASTING Performed By: #### B MP #### [facility] [address] [place] [address] Calcium [Mass/Vol] 9.9 mg/dL Normal 8.6 - 10.6 [facility] Comment on above: Order Comment: PATIE NT FASTING Performed By: #### B MP #### [facility] [place] [address] Chloride [Moles/Vol] 101 mmol/L Normal 98 - 107 [facility] Comment on above: Order Comment: PATIE NT FASTING Performed By: #### B MP #### [facility] [address] [place] [address] Creatinine [Mass/Vol] 1.21 mg/dL Normal 0.50 - 1.30 [facility] Comment on above: Order Comment: PATIE NT FASTING Performed By: #### B MP #### [facility] [address] [place] [address] GFR/1.73 sq M.predicted among non-blacks MDRD (S/P/Bld) [Vol rate/Area] 62 mL/min/{1.73_m2} Normal >90 [facility] Comment on above: Order Comment: PATIE NT FASTING Result Comment: CALC ULATIONS OF ESTIMATED GFR ARE PERFORMED USING THE 2020 CKD-EPI STUDY REFIT EQUATION WITHOUT THE RACE VARIABLE FOR THE IDMS-TRACEABLE CREATININE METHODS. https://jasn.asnjournals.org/content/early//ASN.667092128 8 Performed By: #### B MP #### [facility] [address] [place] [address] Glucose [Mass/Vol] 88 mg/dL Normal 74 - 99 [facility] Comment on above: Order Comment: PATIE NT FASTING Performed By: #### B MP #### [facility] [address] [place] [address] HCO3 (Bld) [Moles/Vol] 30 mmol/L Normal 21 - 32 [facility] Comment on above: Order Comment: PATIE NT FASTING Performed By: #### B MP #### [facility] [place] [address] Potassium [Moles/Vol] 4.6 mmol/L Normal 3.5 - 5.3 [facility] Comment on above: Order Comment: PATIE NT FASTING Performed By: #### B MP #### [facility] [address] [place] [address] Sodium [Moles/Vol] 139 mmol/L Normal 136 - 145 [facility] Comment on above: Order Comment: PATIE NT FASTING Performed By: #### B MP #### [facility] [address] [place] [address] Urea nitrogen [Mass/Vol] 28 mg/dL High 6 - 23 [facility] Comment on above: Order Comment: PATIE NT FASTING Performed By: #### B MP #### [facility] [address] [place] [address] Blood Pressure Cuff Sizeon 0 05-27-2022 Fall risk assessment a) No falls within the last year [facility] Work Phone: Tobacco use status CPHS b) No -[employer] [facility] Work Phone: Blood Pressure Cuff Size Adult [facility] Work Phone: Hemoglobin A1Con 05-27-2022 Glucose [Mass/Vol] 160 mg/dL [facility] Work Phone: HbA1c (Bld) [Mass fraction] 7.2 % Abnormal [facility] Work Phone: Comment on above: Diagnosis of Diabete s-Adults Non-Diabetic: < or = 5.6% Increased risk for developing diabetes: 5.7-6.4% Diagnostic of diabetes: > or = 6.5%. Monitoring of Diabetes Age (y) Therapeutic Goal (%) Adults: >18 <7.0 Pediatrics: 13-18 <7.5 7-12 <8.0 0- 6 7.5-8.5 [place] [employer]. Diabetes Care 33(S1), Oct 2009. LIPID PANEL (CORONARY RISK 2 )on 05-27-2022 Cholesterol [Mass/Vol] 131 mg/dL Normal 0 - 199 [facility] Comment on above: Order Comment: PATIE NT FASTING Result Comment: . AGE DESIRABLE BORDERLINE HIGH HIGH 0-19 Y 0 - 169 170 - 199 >/= 200 20-24 Y 0 - 189 190 - 224 >/= 225 >24 Y 0 - 199 200 - 239 >/= 240 All ranges are based on fasting samples. Specific therapeutic targets will vary based on patient-specific cardiac risk. . Pediatric guidelines reference:Pediatrics 2011, 128(S5). Adult guidelines reference: NCEP ATPIII Guidelines, WALTER 2001, 258:2486-97 . Venipuncture immediately after or during the administration of Metamizole may lead to falsely low results. Testing should be performed immediately prior to Metamizole dosing. Performed By: #### L IPID #### [facility] [address] [place] [address] Cholesterol in HDL [Mass/Vol] 37.8 mg/dL Abnormal [facility] Comment on above: Order Comment: RICHARD NT FASTING Result Comment: . AGE VERY LOW LOW NORMAL HIGH 0-19 Y < 35 < 40 40-45 ---- 20-24 Y ---- < 40 >45 ---- >24 Y ---- < 40 40-60 >60 . Performed By: #### L IPID #### [facility] [address] [place] [address] Cholesterol in LDL [Mass/Vol] 59 mg/dL Normal 0 - 99 [facility] Comment on above: Order Comment: RICHARD VOSS FASTING Result Comment: . NEAR BORD AGE DESIRABLE OPTIMAL HIGH HIGH VERY HIGH 0-19 Y 0 - 109 --- 110-129 >/= 130 ---- 20-24 Y 0 - 119 --- 120-159 >/= 160 ---- >24 Y 0 - 99 100-129 130-159 160-189 >/=190 . Performed By: #### L IPID #### [facility] [address] [place] [address] Cholesterol in VLDL [Mass/Vol] 34 mg/dL Normal 0 - 40 [facility] Comment on above: Order Comment: NORME NT FASTING Performed By: #### L IPID #### [facility] [address] [place] [address] Cholesterol.total/ Cholesterol in HDL [Mass ratio] 3.5 {ratio} Normal [facility] Comment on above: Order Comment: PATIE NT FASTING Result Comment: REF VALUES DESIRABLE < 3.4 HIGH RISK > 5.0 Performed By: #### L IPID #### [facility] [address] [place] [address] Triglyceride [Mass/Vol] 169 mg/dL High 0 - 149 [facility] Comment on above: Order Comment: NORME NT FASTING Result Comment: . AGE DESIRABLE BORDERLINE HIGH HIGH VERY HIGH 0 D-90 D 19 - 174 ---- ---- ---- 91 D- 9 Y 0 - 74 75 - 99 >/= 100 ---- 10-19 Y 0 - 89 90 - 129 >/= 130 ---- 20-24 Y 0 - 114 115 - 149 >/= 150 ---- >24 Y 0 - 149 150 - 199 200- 499 >/= 500 . Venipuncture immediately after or during the administration of Metamizole may lead to falsely low results. Testing should be performed immediately prior to Metamizole dosing. Performed By: #### L IPID #### [facility] [address] [place] [address] Laboratory - Chemistry and C hemistry - challengeon 05-27-2022 Anion gap [Moles/Vol] 13 mmol/L 10 - 20 [facility] Work Phone: Calcium [Mass/Vol] 9.9 mg/dL 8.6 - 10.6 [facility] Work Phone: Chloride [Moles/Vol] 101 mmol/L 98 - 107 [facility] Work Phone: CO2 [Moles/Vol] 30 mmol/L 21 - 32 [facility] Work Phone: Creatinine [Mass/Vol] 1.21 mg/dL See Below [facility] Work Phone: Comment on above: Reference Range: 0.5 0 - 1.30 Glucose [Mass/Vol] 88 mg/dL 74 - 99 [facility] Work Phone: Potassium [Moles/Vol] 4.6 mmol/L 3.5 - 5.3 [facility] Work Phone: Sodium [Moles/Vol] 139 mmol/L 136 - 145 [facility] Work Phone: Urea nitrogen [Mass/Vol] 28 mg/dL above high threshold 6 - 23 [facility] Work Phone: Lipid Panelon 05-27-2022 Cholesterol [Mass/Vol] 131 mg/dL 0 - 199 [facility] Work Phone: Comment on above: . AGE DESIRABLE BORD JASMIN HIGH HIGH 0-19 Y 0 - 169 170 - 199 >/= 200 20-24 Y 0 - 189 190 - 224 >/= 225 >24 Y 0 - 199 200 - 239 >/= 240 All ranges are based on fasting samples. Specific therapeutic targets will vary based on patient-specific cardiac risk.. Pediatric guidelines reference:Pediatrics 2011, 128(S5). Adult guidelines reference: NCEP ATPIII Guidelines, WALTER 2001, 258:1764-97. Venipuncture immediately after or during the administration of Metamizole may lead to falsely low results. Testing should be performed immediately prior to Metamizole dosing. Cholesterol in HDL [Mass/Vol] 37.8 mg/dL Abnormal [facility] Work Phone: Comment on above: . AGE VERY LOW LOW N ORMAL HIGH 0-19 Y < 35 < 40 40-45 ---- 20- 24 Y ---- < 40 >45 ---- >24 Y ---- < 40 40-60 >60. Cholesterol in LDL [Mass/Vol] 59 mg/dL 0 - 99 [facility] Work Phone: Comment on above: . NEAR BORD AGE ANNE RABLE OPTIMAL HIGH HIGH VERY HIGH 0-19 Y 0 - 109 --- 110-129 >/= 130 ---- 20-24 Y 0 - 119 --- 120-159 >/= 160 ---- >24 Y 0 - 99 100-129 130-159 160-189 >/=190. Cholesterol.total/ Cholesterol in HDL [Mass ratio] 3.5 {ratio} [facility] Work Phone: Comment on above: REF VALUESDESIRABLE < 3.4HIGH RISK > 5.0 Triglyceride [Mass/Vol] 169 mg/dL above high threshold 0 - 149 [facility] Work Phone: Comment on above: . AGE DESIRABLE BORD JASMIN HIGH HIGH VERY HIGH 0 D-90 D 19 - 174 ---- ---- ----91 D- 9 Y 0 - 74 75 - 99 >/= 100 ---- 10-19 Y 0 - 89 90 - 129 >/= 130 ---- 20-24 Y 0 - 114 115 - 149 >/= 150 ---- >24 Y 0 - 149 150 - 199 200- 499 >/= 500. Venipuncture immediately after or during the administration of Metamizole may lead to falsely low results. Testing should be performed immediately prior to Metamizole dosing. 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.00) (E08.9) Elevated PSA (790.93) (R97.20) Diabetes mellitus (250.00) (E11.9) Orders Diabetes mellitus Stop: Ramipril 10 MG Oral Capsule Rx By: Poli Mercado; Dispense: 90 Days ; #:90 Capsule; Refill: 3;For: Diabetes mellitus; GAVIN = N; Print Rx Continue: BD Pen Needle Mini U/F 31G X 5 MM; use once a day as directed Rx By: Poli Mercado; Dispense: 0 Days ; #:1 X 100 Unit Box; Refill: 2;For: Diabetes mellitus; GAVIN = N; Verified Transmission to [facility]; Last Updated By: Pratima Callahan; 05/27/2022 10:05:07 AM Continue: FreeStyle InsuLinx System w/Device Kit; USE DIRECTED Rx By: Poli Mercado; Dispense: 0 Days ; #:1 Kit; Refill: 0;For: Diabetes mellitus; GAVIN = N; Verified Transmission to [facility]; Last Updated By: Pratima Callahan; 05/27/2022 10:05:07 AM Continue: FreeStyle InsuLinx Test In Vitro Strip; TEST ONCE DAILY *E11.9* Rx By: Poli Mercado; Dispense: 90 Days ; #:100 Strip; Refill: 3;For: Diabetes mellitus; GAVIN = N; Verified Transmission to [facility]; Last Updated By: Pratima Callahan; 05/27/2022 10:05:07 AM Continue: Glimepiride 1 MG Oral Tablet; TAKE 1 TABLET BY MOUTH EVERY DAY Rx By: Poli Mercado; Dispense: 90 Days ; #:90 Tablet; Refill: 2;For: Diabetes mellitus; GAVIN = N; Verified Transmission to [facility]; Last Updated By: Pratima Callahan; 05/27/2022 10:05:07 AM Continue: Lantus SoloStar 100 UNIT/ML Subcutaneous Solution Pen-injector; INJECT 20 UNITS SUBCUTANEOUSLY EVERY DAY OR AMOUNT DIRECTED Rx By: Poli Mercado; Dispense: 0 Days ; #:1 X 5 x 3 ML Pen; Refill: 1;For: Diabetes mellitus; AGVIN = N; Verified Transmission to [facility]; Last Updated By: Pratima Callahan; 05/27/2022 10:05:07 AM 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 Hemoglobin A1C; Status:In Progress - Specimen/Data Collected; Done: [id number] Perform:Lab Services - Lab To Draw (Blood Test); Due:25Aug2022;Ordered; For: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; Ordered By:Poli Mercado; Elevated PSA Prostate Specific Antigen; Status:In Progress - Specimen/Data Collected; Done: [id number] Perform:Lab Services - Lab To Draw (Blood Test); Due:25Aug2022;Ordered; For:Elevated PSA; Ordered By:Poli Mercado; Hyperlipidemia Continue: Atorvastatin Calcium 20 MG Oral Tablet; TAKE 1 TABLET BY MOUTH EVERY DAY Rx By: Poli Mercado; Dispense: 90 Days ; #:90 Tablet; Refill: 3;For: Hyperlipidemia; GAVIN = N; Verified Transmission to [facility]; Last Updated By: Pratima Callahan; 05/27/2022 10:05:07 AM Hypertension Start: Lisinopril 20 MG Oral Tablet; TAKE 1 TABLET DAILY Rx By: Poli Mercado; Dispense: 90 Days ; #:90 Tablet; Refill: 3;For: Hypertension; GAVIN = N; Verified Transmission to [facility]; Last Updated By: Alesha Claudio; 05/27/2022 10:28:27 AM Basic Metabolic Panel; Status:In Progress - Specimen/Data Collected; Done: [id number] Perform:Lab Services - Lab To Draw (Blood Test); Due:25Aug2022;Ordered; For:Hypertension; Ordered By:Poli Mercado; Continue: amLODIPine Besylate 10 MG Oral Tablet; TAKE 1 TABLET BY MOUTH EVERY DAY Rx By: Poli Mercado; Dispense: 90 Days ; #:90 Tablet; Refill: 2;For: Hypertension; GAVIN = N; Verified Transmission to [facility]; Last Updated By: Pratima Callahan; 05/27/2022 10:05:07 AM Lipid Panel; Status:In Progress - Specimen/Data Collected; Done: [id number] Perform:Lab Services - Lab To Draw (Blood Test); Due:25Aug2022;Ordered; For:Hypertension; Ordered By:Poli Mercado; Continue: Clopidogrel Bisulfate 75 MG Oral Tablet; TAKE 1 TABLET BY MOUTH EVERY DAY Rx By: Poli Mercado; Dispense: 90 Days ; #:90 Tablet; Refill: 3;For: Hypertension; GAVIN = N; Verified Transmission to [facility]; Last Updated By: Pratima Callahan; 05/27/2022 10:05:07 AM Unlinked Stop: Lisinopril 10 MG Oral Tablet Rx By: NICHOL; Dispense: 90 Days ; #:90; Refill: 0; GAVIN = N; Record; Last Updated By: Poli Mercado; 05/27/2022 10:27:56 AM Continue: Famotidine 20 MG Oral Tablet Rx By: DMITRY; Dispense: 90 Days ; #:90; Refill: 0; GAVIN = N; Record; Last Updated By: Pratima Callahan; 05/27/2022 10:05:07 AM Continue: Metoprolol Succinate ER 25 MG Oral Tablet Extended Release 24 Hour Rx By: DAVID; Dispense: 90 Days ; #:90; Refill: 0; GAVIN = N; Record; Last Updated By: Pratima Callahan; 05/27/2022 10:05:07 AM Continue: Oxybutynin Chloride ER 10 MG Oral Tablet Extended Release 24 Hour Rx By: JOSÉ LUIS; Dispense: 90 Days ; #:90; Refill: 0; GAVIN = N; Record; Last Updated By: Pratima Callahan; 05/27/2022 10:05:07 AM Continue: traMADol HCl - 50 MG Oral Tablet Rx By: TERE; Dispense: 30 Days ; #:120; Refill: 0; GAVIN = N; Record; Last Updated By: Pratima Callahan; 05/27/2022 10:05:07 AM Continue: Tylenol 325 MG Oral Capsule; as directed Dispense: 0 Days ; #: Sufficient Capsule; Refill: 0; GAVIN = N; Record; Last Updated (more content not included)... Normal [facility] PROSTATE SPECIFIC AGon 05-27 Prostate specific Ag [Mass/Vol] 4.54 ng/mL High 0.00 - 4.00 [facility] Comment on above: Order Comment: RICHARD NT FASTING Result Comment: The FDA requires that the method used for PSA assay be reported to the physician. Values obtained with different assay methods must not be used interchangeably. This test was performed at [facility] using the Siemens [employer] PSA method, which is a sandwich immunoassay using chemiluminescence for quantitation. The assay is approved for measurement of prostate-specific antigen (PSA) in serum and may be used in conjunction with a digital rectal examination in men 50 years and older as an aid in detection of prostate cancer. 6-Jkyzy-cjltaoqpn inhibitors (e.g. Proscar, Finasteride, Avodart, Dutasteride and Varsha) for the treatment of BPH have been shown to lower PSA levels by an average of 50% after 6 months of treatment. Performed By: #### P #### [facility] [address] [place] [address] Prostate Specific Antigenon 05-27-2022 Prostate specific Ag [Mass/Vol] 4.54 ng/mL above high threshold See Below [facility] Work Phone: Comment on above: Reference Range: 0.0 0 - 4.00The FDA requires that the method used for PSA assay be reported to the physician. Values obtained with different assay methods must not be used interchangeably. This test was performed at [facility] using the [employer] PSA method, which is a sandwich immunoassay using chemiluminescence for quantitation. The assay is approvedfor measurement of prostate-specific antigen (PSA) in serum and may be used in conjunction with a digital rectalexamination in men 50 years and older as an aid in detection of prostate cancer. 6-Hiejt-urqaptzco inhibitors (e.g. Proscar, Finasteride, Avodart, Dutasteride and Varsha) for the treatment of BPH have been shown to lower PSA levels by an average of 50% after 6 months of treatment. Prostatic Specific Antigen, Totalon 01-16-2022 TPSA 4.280 ng/mL High <4.000 [facility] Comment on above: Result Comment: PSA Test Method: ECLIA/Dung e 601 Performed By: #### P SA #### [facility] [address] [place], [place] [id number] BUNon 10-08-2021 Urea nitrogen [Mass/Vol] 31 mg/dL High 7-25 [facility] Comment on above: Performed By: #### C GUSTAVO, BUN #### [facility] [address] [place], [place] [id number] Creatinineon 10-08-2021 Creatinine [Mass/Vol] 1.3 mg/dL Normal 0.7-1.4 [facility] Comment on above: Performed By: #### C GUSTAVO, BUN #### [facility] [address] [place], [place] [id number] eGFRAA 66 mL/min/1.73m2 Normal >60 [facility] Comment on above: Performed By: #### C GUSTAVO, BUN #### [facility] [address] [place], [place] [id number] eGFRNAA 54 mL/min/1.73m2 Low >60 [facility]st Comment on above: Performed By: #### C GUSTAVO, BUN #### [facility] [address] [place], [place] [id number] Hemoglobin A1Con 10-08-2021 EAG 162.81 Normal [facility] Analyst Comment on above: Performed By: #### A 1C #### [facility] [address] [place], [place] [id number] HbA1c (Bld) [Mass fraction] 7.3 % High 4.0-6.0 [facility] Analyst Comment on above: Performed By: #### A 1C #### [facility] [address] [place], [place] [id number] Hemoglobin A1Con 09-05-2021 Glucose [Mass/Vol] 154 mg/dL [employer] [facility] Work Phone: HbA1c (Bld) [Mass fraction] 7.0 % Abnormal [facility] Work Phone: Comment on above: Diagnosis of Diabete s-Adults Non-Diabetic: < or = 5.6% Increased risk for developing diabetes: 5.7-6.4% Diagnostic of diabetes: > or = 6.5%. Monitoring of Diabetes Age (y) Therapeutic Goal (%) Adults: >18 <7.0 Pediatrics: 13-18 <7.5 7-12 <8.0 0- 6 7.5-8.5 [place] [employer]. Diabetes Care 33(S1), Oct 2009. Laboratory - Chemistry and C hemistry - challengeon 09-05-2021 Anion gap [Moles/Vol] 12 mmol/L 10 - 20 [facility] Work Phone: Calcium [Mass/Vol] 10.0 mg/dL 8.6 - 10.6 [employer] [facility] Work Phone: Chloride [Moles/Vol] 103 mmol/L 98 - 107 [facility] Work Phone: CO2 [Moles/Vol] 32 mmol/L 21 - 32 [facility] Work Phone: Creatinine [Mass/Vol] 1.50 mg/dL above high threshold See Below [facility] Work Phone: Comment on above: Reference Range: 0.5 0 - 1.30 Glucose [Mass/Vol] 109 mg/dL above high threshold 74 - 99 [facility] Work Phone: Potassium [Moles/Vol] 5.2 mmol/L 3.5 - 5.3 [facility] Work Phone: Sodium [Moles/Vol] 142 mmol/L 136 - 145 -[facility] Work Phone: Urea nitrogen [Mass/Vol] 26 mg/dL above high threshold 6 - 23 -[facility] Work Phone: Lipid Panelon 09-05-2021 Cholesterol [Mass/Vol] 141 mg/dL 0 - 199 -[facility] Work Phone: Comment on above: . AGE DESIRABLE BORD JASMIN HIGH HIGH 0-19 Y 0 - 169 170 - 199 >/= 200 20-24 Y 0 - 189 190 - 224 >/= 225 >24 Y 0 - 199 200 - 239 >/= 240 All ranges are based on fasting samples. Specific therapeutic targets will vary based on patient-specific cardiac risk.. Pediatric guidelines reference:Pediatrics 2011, 128(S5). Adult guidelines reference: NCEP ATPIII Guidelines, WALTER 2001, 258:2486-97. Venipuncture immediately after or during the administration of Metamizole may lead to falsely low results. Testing should be performed immediately prior to Metamizole dosing. Cholesterol in HDL [Mass/Vol] 48.3 mg/dL -[facility] Work Phone: Comment on above: . AGE VERY LOW LOW N ORMAL HIGH 0-19 Y < 35 < 40 40-45 ---- 20- 24 Y ---- < 40 >45 ---- >24 Y ---- < 40 40-60 >60. Cholesterol in LDL [Mass/Vol] 75 mg/dL 0 - 99 [facility] Work Phone: Comment on above: . NEAR BORD AGE ANNE RABLE OPTIMAL HIGH HIGH VERY HIGH 0-19 Y 0 - 109 --- 110-129 >/= 130 ---- 20-24 Y 0 - 119 --- 120-159 >/= 160 ---- >24 Y 0 - 99 100-129 130-159 160-189 >/=190. Cholesterol.total/ Cholesterol in HDL [Mass ratio] 2.9 {ratio} [employer] [facility] [place] Work Phone: Comment on above: REF VALUESDESIRABLE < 3.4HIGH RISK > 5.0 Triglyceride [Mass/Vol] 87 mg/dL 0 - 149 [employer] [facility] [place] [place] Work Phone: Comment on above: . AGE DESIRABLE BORD JASMIN HIGH HIGH VERY HIGH 0 D-90 D 19 - 174 ---- ---- ----91 D- 9 Y 0 - 74 75 - 99 >/= 100 ---- 10-19 Y 0 - 89 90 - 129 >/= 130 ---- 20-24 Y 0 - 114 115 - 149 >/= 150 ---- >24 Y 0 - 149 150 - 199 200- 499 >/= 500. Venipuncture immediately after or during the administration of Metamizole may lead to falsely low results. Testing should be performed immediately prior to Metamizole dosing. Lipid Panel 17 mg/dL 0 - 40 [employer] [facility] Work Phone: No Panel Informationon 09-05 54 {mL/min/1.73m2} Abnormal >60 [employer] [facility] Work Phone: Comment on above: CALCULATIONS OF ARISTIDES MATED GFR ARE PERFORMED USING THE MDRD STUDY EQUATION FOR THE IDMS-TRACEABLE CREATININE METHODS. CLIN CHEM 2007;53:766-72 45 {mL/min/1.73m2} Abnormal >60 -[facility] Work Phone: Office Visit (Internal Medic ine)on 09-05-2021 Follow-up visit Diagnoses/Problems Assessed Diabetes mellitus (250.00) (E11.9) 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 (249.00) (E08.9) Hypertension (401.9) (I10) Orders Diabetes mellitus Continue: BD Pen Needle Mini U/F 31G X 5 MM; use once a day as directed Rx By: Poli Mercado; Dispense: 0 Days ; #:100 Each; Refill: 2;For: Diabetes mellitus; GAVIN = N; Verified Transmission to [id number]; Last Updated By: Pratima Callahan; 09/05/2021 10:22:32 AM Basic Metabolic Panel; Status:In Progress - Specimen/Data Collected; Done: 05Sep2021 Perform:Lab Services - Lab To Draw (Blood Test); Due:04Dec2021;Ordered; For:Diabetes mellitus; Ordered By:Poli Mercado; Continue: FreeStyle In[employer]Linx System w/Device Kit; USE DIRECTED Rx By: Poli Mercado; Dispense: 0 Days ; #:1 Kit; Refill: 0;For: Diabetes mellitus; GAVIN = N; Verified Transmission to [employer] 00467; Last Updated By: Pratima Callahan; 09/05/2021 10:22:32 AM Continue: FreeStyle [employer] Test In Vitro Strip; TEST ONCE DAILY *E11.9* Rx By: Poli Mercado; Dispense: 90 Days ; #:100 Strip; Refill: 3;For: Diabetes mellitus; GAVIN = N; Verified Transmission to [facility]; Last Updated By: Pratima Callahan; 09/05/2021 10:22:32 AM Continue: Glimepiride 1 MG Oral Tablet; TAKE 1 TABLET BY MOUTH EVERY DAY Rx By: Poli Mercado; Dispense: 90 Days ; #:90 Tablet; Refill: 2;For: Diabetes mellitus; GAVIN = N; Verified Transmission to [id number]; Last Updated By: Pratima Callahan; 09/05/2021 10:22:32 AM Continue: Lantus SoloStar 100 UNIT/ML Subcutaneous Solution Pen-injector; INJECT 20 UNITS SUBCUTANEOUSLY EVERYDAY Rx By: Poli Mercado; Dispense: 0 Days ; #:1 X 5 x 3 ML Pen; Refill: 1;For: Diabetes mellitus; GAVIN = N; Verified Transmission to [facility]; Last Updated By: Pratima Callahan; 09/05/2021 10:22:32 AM Continue: Ramipril 10 MG Oral Capsule; TAKE 1 CAPSULE BY MOUTH DAILY Rx By: Poli Mercado; Dispense: 90 Days ; #:90 Capsule; Refill: 3;For: Diabetes mellitus; GAVIN = N; Print Rx; Last Updated By: Pratima Callahan; 09/05/2021 10:22:32 AM 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 Hemoglobin A1C; Status:In Progress - Specimen/Data Collected; Done: 05Sep2021 Perform:Lab Services - Lab To Draw (Blood Test); Due:04Dec2021;Ordered; For: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; Ordered By:Poli Mercado; Lipid Panel; Status:In Progress - Specimen/Data Collected; Done: 05Sep2021 Perform:Lab Services - Lab To Draw (Blood Test); Due:04Dec2021;Ordered; For: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; Ordered By:Poli Mercado; Hyperlipidemia Continue: Atorvastatin Calcium 20 MG Oral Tablet; TAKE 1 TABLET BY MOUTH EVERY DAY Rx By: Poli Mercado; Dispense: 90 Days ; #:90 Tablet; Refill: 3;For: Hyperlipidemia; GAVIN = N; Verified Transmission to [facility]; Last Updated By: Pratima Callahan; 09/05/2021 10:22:32 AM Hypertension Continue: amLODIPine Besylate 10 MG Oral Tablet; TAKE 1 TABLET BY MOUTH EVERY DAY Rx By: Poli Mercado; Dispense: 90 Days ; #:90 Tablet; Refill: 2;For: Hypertension; GAVIN = N; Verified Transmission to [id number]; Last Updated By: Pratima Callaahn; 09/05/2021 10:22:32 AM Continue: Clopidogrel Bisulfate 75 MG Oral Tablet; TAKE 1 TABLET BY MOUTH EVERY DAY Rx By: Poli Mercado; Dispense: 90 Days ; #:90 Tablet; Refill: 3;For: Hypertension; GAVIN = N; Verified Transmission to [id number]; Last Updated By: Pratima Callahan; 09/05/2021 10:22:32 AM Unlinked Continue: Tylenol 325 MG Oral Capsule; as directed Dispense: 0 Days ; #: Sufficient Capsule; Refill: 0; GAVIN = N; Record; Last Updated By: Pratima Callahan; 09/05/2021 10:22:32 AM Patient Discussion/Summary lab same meds follow 6 months Provider Impressions dm clin ok bp on rx..fair control Chief Complaint follow dm//bp History of Present Illness[place] had flu sjot/ had covid booster eye.. dr. mg sommer in [place] hg 120 s no log here, agent lantus plus glimep has a pcp in [facility] no hypos feels well drove here from [facility] this am will travel to [place] this winter Review of Systems Constitutional: no fever, no chills and not feeling poorly. ENT: no sore throat and no hoarseness. Cardiovascular: no chest pain, no palpitations and no lower extremity edema. Respiratory: no cough and no shortness of breath during exertion. Gastrointestinal: no abdominal pain, no nausea and no diarrhea. Genitourinary: no dysuria. Musculoskeletal: no arthralgias, no myalgias and no limb swelling. Neurological: no headache and no dizziness. Active Problems Problems CAD (coronary artery disease) (414.00) (I25.10) Claudication (443.9) (I73.9) Diabetes mellitus (250.00) (E11.9) 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 (249.00) (E08.9) Hyperlipidemia (272.4) (E78.5) Hypertension (401.9) (I10) Obes (more content not included)... Normal [facility] Vital Signs Date Time Vital Sign Value Performing Clinician Facility 07-02-2023 14:00-0400 Body height 172.72 cm Gregory Ybarra Other [facility] Other 07-02-2023 14:00-0400 Body mass index (BMI) [Ratio] 31.17 kg/m2 Gregory Ybarra Other [facility] Other 07-02-2023 14:00-0400 Body weight 92.99 kg Gregory Ybarra Other [facility] Other 07-02-2023 14:00-0400 Diastolic blood pressure 56 mm[Hg] Gregory Ybarra Other [facility] Other 07-02-2023 14:00-0400 SaO2% (BldA) [Mass fraction] 61 % Gregory Ybarra Other [facility] Other 07-02-2023 14:00-0400 Systolic blood pressure 137 mm[Hg] Gregory Ybarra Other [facility] Other 05-27-2022 10:03-0400 Body height 172.72 cm Ashlee C Kodz Work Phone: [employer] [place] Work Phone: 05-27-2022 10:03-0400 Body mass index (BMI) [Ratio] 31.78 kg/m2 [place] C Kodz Work Phone: [facility] Work Phone: 05-27-2022 10:03-0400 Body surface area Derived from formula 2.08 m2 Ashlee C Kodz Work Phone: [employer] [place] Work Phone: 05-27-2022 10:03-0400 Body temperature 96.4 [degF] [place] C Kodz Work Phone: [facility] Work Phone: 05-27-2022 10:03-0400 Body weight 94.8 kg [place] C Kodz Work Phone: [employer] [facility] Work Phone: 05-27-2022 10:03-0400 Diastolic blood pressure 62 mm[Hg] [place] C Kodz Work Phone: [employer] [facility] Work Phone: 05-27-2022 10:03-0400 Heart rate 70 /min Ashlee Henry Work Phone: [employer] [facility] Work Phone: 05-27-2022 10:03-0400 SaO2% (BldA) [Mass fraction] 98 % Ashlee Henry Work Phone: [employer] [facility] Work Phone: 05-27-2022 10:03-0400 Systolic blood pressure 140 mm[Hg] Ashlee Henry Work Phone: [employer] [facility] Work Phone: Encounters Encounter Date Encounter Type Care Provider Facility Start: 10-20-2023 End: 10-20-2023 ambulatory TOM FIELD Not Available Start: 10-02-2023 End: 10-02-2023 ambulatory TOM FIELD Not Available Start: 10-01-2023 End: 10-01-2023 ambulatory Gregory Ybarra Facility:[facility] Start: 10-01-2023 End: 10-01-2023 ambulatory DO Benedicto Field Work Phone: [facility] Work Phone: Start: 10-01-2023 End: 10-01-2023 Patient encounter procedure DO Benedicto Field Work Phone: [facility] Work Phone: Start: 09-24-2023 End: 09-24-2023 ambulatory DAJA GUERRERO Not Available Start: 09-17-2023 End: 09-17-2023 ambulatory DAJA GUERRERO Not Available Start: 09-10-2023 End: 09-10-2023 ambulatory DAJA GUERRERO Not Available Start: 08-30-2023 End: 08-30-2023 ambulatory SADIA CARRINGTON Not Available Start: 07-02-2023 Office outpatient ne w 45 minutes Gergory Ybarra [facility] Start: 07-02-2023 End: 07-02-2023 ambulatory DO Benedicto Field Work Phone: [facility] Work Phone: Start: 07-02-2023 End: 07-02-2023 Patient encounter procedure DO Benedicto Field Work Phone: [facility] Work Phone: Start: 03-13-2023 ambulatory DEANNA FAUST . Facili ty:[facility] Start: 02-25-2023 End: 02-25-2023 ambulatory NARENDRANATH LAKSHMIPATHY . Facility:[facility] Start: 02-06-2023 End: 02-07-2023 ambulatory NARENDRANATH LAKSHMIPATHY . Facility:[facility] Start: 01-28-2023 End: 01-29-2023 ambulatory TOM RODRIGUEZGRISELDA Facility:[facility] Start: 01-09-2023 End: 01-10-2023 ambulatory NARENDRANATH LAKSHMIPATHY . Facility:[facility] Start: 01-02-2023 ambulatory DIAMANTE SPAULDING . Facility:[facility] 1 Start: 12-19-2022 End: 12-20-[address] SADIE PERRY . Facility:[facility] Start: 12-14-2022 Rx Renewal [place] Mati Kodz Work Phone: [facility] Work Phone: Start: 12-02-2022 End: 12-03-2022 ambulatory Valentino BARNARDGRISELDA DO Facility:[id number] Start: 12-02-2022 End: 12-03-2022 ambulatory Valentino FIELD DO Facility:[id number] Start: 11-12-2022 End: 11-13-[address] SADIE PERRY . Facility:[facility] Start: 10-24-[address] SADIE PERRY . Faci lity:[facility]1 Start: 10-24-2022 Rx Renewal [place] C Kodz Work Phone: [facility] Work Phone: Start: 10-21-2022 ambulatory Poli Evan Jess Facil ity:[id number] Start: 10-18-2022 Rx Renewal Ashlee C Kodz Work Phone: -[facility] Work Phone: Start: 10-01-2022 End: 10-01-[address] SADIE PERRY . Facility:[facility]1 Start: 09-03-2022 End: 09-04-[address] SADIE PERRY . Facility:[facility] Start: 08-04-2022 Rx Renewal [place] C Kodz Work Phone: [facility] Work Phone: Start: 05-29-2022 AUDIT Ashlee C Kodz Work Phone: -[facility] Work Phone: Start: 05-27-2022 Office outpatient visit 25 minutes Ashlee C Kodz Work Phone: [facility] Work Phone: Start: 05-27-2022 ambulatory Poli Mercado [facility] ity:[id number] Start: 05-23-2022 End: 05-24-[address] SADIE PERRY . Facility:[facility] Start: 05-10-2022 Rx Renewal Ashlee C Kodz Work Phone: [facility] Work Phone: Start: 03-04-2022 Telephone encounter Ashlee C Ko dz Work Phone: -[facility] Work Phone: Start: 02-28-2022 End: 03-01-[address] SADIE PERRY . Facility:[facility]1 Start: 12-18-2021 Rx Renewal [place] C Kodz Work Phone: -[facility] Work Phone: Start: 10-06-2021 Rx Renewal Ashlee C Kodz Work Phone: -[facility] Work Phone: Start: 09-26-2021 AUDIT Ashlee C Kodz Work Phone: [employer] [facility] Work Phone: Start: 09-10-2021 AUDIT Ashlee C Kodz Work Phone: [employer] [facility] Work Phone: Start: 09-06-2021 Rx Renewal [place] C Kodz Work Phone: [employer] [facility] Work Phone: Start: 09-05-2021 Office outpatient visit 15 minutes [place] C Kodz Work Phone: [employer] [facility] Work Phone: Start: 09-05-2021 Patient encounter procedure [place] C Kodz Work Phone: [employer] [facility] Work Phone: Start: 08-12-2021 Rx Renewal Ashlee C Kodz Work Phone: [employer] [facility] Work Phone: Start: 03-09-2021 Rx Renewal Ashlee C Kodz Work Phone: [employer] [facility] Work Phone: Start: 02-23-2020 Patient encounter procedure Poli Mercado MD [id number] [facility] Work Phone: Start: 08-25-2019 Patient encounter procedure Poli Mercado MD [id number] [facility] Work Phone: Start: 04-07-2019 Patient encounter procedure Poli Mercado MD [employer] [facility] Work Phone: Procedures Date Procedure Procedure Detail Performing Clinician History of Cath Plac ement Of Stent 3 Poli Mercado MD Total knee replacement Yolanda Mercado MD Comment on above: Bilateral; Plan of Treatment Date Care Activity Detail Author Start: 10-21-2022 FUV, Provider: Poli Mercado, Status: Pen, Time: 9:45 AM FUV, Provider: Poli Mercado, Status: Pen, Time: 9:45 AM [facility] Work [facility]: Start: 05-27-2022 FUV, Provider: Poli Mercado, Status: Pen, Time: 11:00 AM FUV, Provider: Poli Mercado, Status: Pen, Time: 11:00 AM [employer] Work Phone: Start: 05-02-2022 FUV, Provider: Poli Mercado, Status: Pen, Time: 10:30 AM FUV, Provider: Poli Mercado, Status: Pen, Time: 10:30 AM [facility] Work [facility]: Start: 09-05-2021 FUV, Provider: Poli Mercado, Status: Pen, Time: 10:00 AM FUV, Provider: Poli Mercado, Status: Pen, Time: 10:00 AM [facility] Work Phone: Immunizations Immunization Date Immunization Notes Care Provider Oscar leon 08-24-2022 Pfizer COVID-19 Vac Bivalent 30 MCG/0.3ML Intramuscular Suspension Ashlee C Kodz Work Phone: [facility] Work Phone: 07-18-2022 influenza, injectabl e, quadrivalent, contains preservative Ashlee C Kodz Work Phone: [facility] Work Phone: 01-24-2022 Moderna COVID-19 Vac cine 100 MCG/0.5ML Intramuscular Suspension [place] C Kodz Work [facility] Work Phone: 08-09-2021 Moderna COVID-19 Vac cine 100 MCG/0.5ML Intramuscular Suspension Ashlee C Kodz Work Phone[facility] Work Phone: 2021 Fluzone High-Dose Quadrivalent 0.7 ML Intramuscular Suspension Prefilled Syringe [place] C Kodz Work Phone: [facility] Work Phone: 12-05-2020 Moderna COVID-19 Vac cine 100 MCG/0.5ML Intramuscular Suspension Ashlee C Kodz Work Phone: -[facility] Work Phone: 11-07-2020 Moderna COVID-19 Vac cine 100 MCG/0.5ML Intramuscular Suspension [place] C Kodz Work Phone: [facility] Work Phone: 10-04-2020 zoster vaccine recombinant [place] C Kodz Work Phone: [facility] Work Phone: 08-04-2020 zoster vaccine recombinant [place] C Kodz Work Phone: [facility] Work Phone: 2020 Fluad Quadrivalent 0 .5 ML Intramuscular Prefilled Syringe Ashlee C Kodz Work Phone: [facility] Work Phone: 07-28-2019 influenza, high dose seasonal, preservative-free Poli Mercado MD -[facility] Work Phone: Comment on above: Series: 08-25-2018 pneumococcal polysaccharide vaccine, 23 valent [place] C Kodz Work Phone: [facility] Work Phone: 07-13-2018 influenza, high dose seasonal, preservative-free [employer] Work Phone: [facility] Work Phone: 07-28-2017 influenza, high dose seasonal, preservative-free [employer] C [employer] Work Phone: -[facility] Work Phone: 07-26-2015 influenza, high dose seasonal, preservative-free [employer] C [employer] Work Phone: [facility] Work Phone: 07-21-2014 influenza, high dose seasonal, preservative-free Poli Mercado MD -[facility] Work Phone: Comment on above: Series: 11-04-2012 pneumococcal polysaccharide vaccine, 23 valent Poli Mercado MD [facility] Work Phone: Comment on above: Series: 10-09-2012 zoster vaccine, live Poli Mercado MD -[facility] Work Phone: Comment on above: Series: Payers Date Payer Category Payer Self-pay [id number] 2008 Medicare 2008 Private Health Insurance 1959 Medicare [id number] 1959 Unknown [id number] 1945 Unknown [id number] [id number]6 1945 Unknown [id number] 2..840.1.237213.3.579.2.356 1945 Unknown [id number] 2.16.840.1.457168.3.579.2.159 1945 Unknown [id number] 2.16.840.1.721790.3.579.2.159 1945 Unknown [id number] 2.16.840.1.368860.3.579.2.718 1945 Unknown [id number] 2.16.840.1.858612.3.579.2.593 1945 Unknown [id number] 2.16.840.1.724190.3.579.2.593 1945 Unknown [id number] 2.16.840.1.026199.3.579.2.593 1945 Unknown [id number] 2.16.840.1.490759.3.579.2.593 1945 Unknown [id number] 2.16.840.1.097627.3.579.2.593 1945 Unknown [id number] 2.16.840.1.726307.3.579.2.593 1945 Unknown [id number] 2.16.840.1.123703.3.579.2.593 1945 Unknown [id number] 2.16.840.1.958836.3.579.2.593 1945 Unknown [id number] 2.16.840.1.451905.3.579.2.593 1945 Unknown [id number] 2.16.840.1.069642.3.579.2.593 1945 Unknown [id number] 2.16.840.1.401367.3.579.2.593 1945 Unknown [id number] 2.16.840.1.464885.3.579.2.593 1945 Unknown [id number] 2.16.840.1.180395.3.579.2.125 9 1945 Unknown [id number] 2.16.840.1.654522.3.579.2.125 9 1945 Unknown [id number] 2.16.840.1.246060.3.579.2.125 9 1945 Unknown [id number] 2.16.840.1.815936.3.579.2.125 9 1945 Unknown [id number] 2.16.840.1.243009.3.579.2.125 9 1945 Unknown [id number] 2.16.840.1.228600.3.579.2.125 9 Medicare Medicare Outpatient [id number] 8A [id number] Unknown Unknown [id number] 2.16.840.1.070049.3.579.2.531 Unknown [id number] 2.16.840.1.138685.3.579.2.531 Social History Date Type Detail Facility Never Drank Alcohol Never Drank Alcohol [facility] Work Phone: Comment on above: Quit 1987 (1PPD x 20 years); Sex Assigned At Sex Assigned At [facility] Other Start: 06-04-2020 End: 06-04-2020 Tobacco smoking status NHIS Ex-smoker (finding) [facility] Start: 1945 Sex Assigned At Male [facility] NEGATED: Highlighted row - - [facility] [place] Work Phone: Medical Equipment Procedure Code Equipment Code Equipment Origin al Text Equipment Identifier Dates BD Pen Needle Mi ni U/F 31G X 5 MM use once a day as directed Quantity: 1 Refills: 2 Poli Mercado MD Start : 17-Jan-2014 Active 100 Unit Box Start: 01-17-2014 [employer] nx Test In Vitro Strip TEST ONCE DAILY *E11.9* Quantity: 100 Refills: 3 Poli Mercado MD Start : 23-Feb-2014 Active Start: 02-23-2014 BD Pen Needle Mi ni U/F 31G X 5 MM use once a day as directed Quantity: 1 Refills: 2 Poli Mercado MD Start : 17-Jan-2014 Active 100 Unit Box Start: 01-17-2014 FreeStyle InsuLi nx Test In Vitro Strip TEST ONCE DAILY *E11.9* Quantity: 100 Refills: 3 Poli Mercado MD Start : 23-Feb-2014 Active Start: 02-23-2014 Functional Status Date Assessment Result Facility NEGATED: Highlighted row Functional performance Functional status health issues are not documented Disease [facility] Work Phone: Mental Status Date Assessment Result Facility NEGATED: Highlighted row Cognitive function [Interpretation] Cognitive status health issues are not documented Disease [facility] Work Phone: Clinical Notes 02-28-2022 to 07-02-2023 Note Date & Type Note Facility 07-02-2023 Evaluation note Encounter Date Diagnosis Assessment Notes Jun, Obstructive sleep apnea (ICD-10 - G47.33) His previous sleep test showed apnea-hypopnea index of over 17 events per hour, and this moderate range of apnea can have significant medical and functional complications if not addressed. Over time apnea severity may also have changed. The patient and his providers would like reassessment of sleep apnea severity. Even more importantly, we need to enable the patient to effectively use the device on a daily basis so CPAP intolerance is a primary issue. I will try to get a download to assess current control and clarify current settings, and I encouraged the patient to use the device every night and all night. He will return after sleep testing Jun, Intolerance of continuous positive airway pressure (CPAP) ventilation (ICD-10 - Z78.9) He reports he is only using his device 2 days/week at most. He reports that when he does use it he sleeps better and feels better in the daytime. He reports the primary reason he does not use the device is that he does not think it is working right. , and that it gives pressures that feel too low much of the time. I am hopeful that appropriate settings and mask selection may improve toleration substantially for him. One way or another, achieving good control of sleep apnea is important as it will have substantial impact on his overall health and wellbeing Jun, Chronic systolic congestive heart failure (ICD-10 - I50.22) There is a strong, bidirectional relationship between congestive heart failure and severe sleep apnea. Patients with CHF will have sleep apnea a full 60% of the time, and controlling sleep apnea can have a substantial effect on cardiac function after hypoxia and catecholamine overload caused by recurring apneas are controlled. Jun, BMI 31.0-31.9,adult (ICD-10 - Z68.31) Weight reduction would be broadly beneficial for overall health, but would also have direct benefits on apnea severity and sleep quality. Even moderate weight reduction can affect LOPEZ and snoring, and in some patients weight reduction can completely resolve sleep apnea Jun, Essential hypertension (ICD-10 - I10) Control of sleep apnea will frequently have a positive effect on blood pressure control, and may additionally reduce blood pressure lability. Jun, Other The diagnosis of Sleep Apnea was reviewed in detail, and handout materials were provided. The patient expresses good understanding, We also reviewed the medical and accident risks associated with sleep apnea and excessive fatigue. The patient is advised to adhere to a proper sleep hygiene schedule and to assure adequate total sleep time; The patient was advised to continue efforts at progressive weight loss, including decreased overall caloric intake quantity and better food choices.The patient was advised to call or return any difficulties arise, including changes in symptoms and/or problems with treatment [facility] Other 03-30-2023 NoteCONSULTATION CONSULTATION DATE: 01/09/2023 TO: Dr. Field CHIEF COMPLAINT: Includes mild to moderate right lower back pain. HISTORY: He reports the pain as being 5-7/10 pain, sharp in character, increased with activities such as standing, walking and performing transitioning maneuvers. He reports no change in bowel and bladder habits or new sensorimotor changes in the lower extremities. EXAM: Notable for patient having some very mild weakness of his iliopsoas muscle bilaterally, as well as quadriceps. DTRs appear to be symmetrical but depressed bilaterally. He has negative straight leg raise and nothing to suggest myelopathy on examination on today's visit. He had nothing to suggest SI joint dysfunction or lumbar facet joint loaded pain clinically. Patient did have mild myofascial spasm involving the lumbar paravertebral muscles. IMPRESSION: Our impression is a patient with chronic pain secondary to known spinal stenosis. PLAN: At this point, I feel patient's pain is somewhat stable. I have asked him to continue with tramadol, if needed, 50 mg pill, half a pill to one pill t. i.d., 55 pills to last one month's time. Since he is doing fairly well, we will have him return to the office in three months' time or sooner if needed. He was informed to contact our office in approximately 1-2 weeks' time to update us on the response to his change in medication.[facility] 12-19-2022 NoteCONSULTATION CONSULTATION DATE: 12/26/2022 HISTORY: This is a 77-year-old gentleman who returns to the clinic for a two month follow up, as well as follow up from a gluteal trigger point injection completed on 11/12/2022. The patient received 90% relief for 12 hours. He is accompanied by his today and they present multiple medical papers and imaging from a physician they saw at the [facility]. The patient and the are interested in possible procedures before back surgery will need to be done. The patient has multiple comorbidities, so surgery would be risky. He rates his pain at rest 5/5 with increased. With increased activity it is 7/10. Standing, walking, lifting and bending aggravate his pain. Medications include tramadol 50 mg t.i.d., Plavix and a multivitamin regimen. Patient [facility], which shows advanced pathology. He leads a very sedentary life and does not move about a lot. Patient's REVIEW OF SYSTEMS / PAST MEDICAL HISTORY / ALLERGIES and IMAGES have been reviewed and noted on the chart. PHYSICAL EXAM: VITAL SIGNS: Blood pressure is 114/67. Heart rate is 76. Temperature is 98.2. He is 5'8 , weighs 92 kg. GENERAL IMPRESSION: Pleasant, appropriate, in no acute distress. FOCUSED EXAM - BACK: Range of motion is guarded in lateral rotation and flexion/extension. Point tenderness along the lower lumbar facet upon compression of L1, L2, L3, L4, L5, S1 bilaterally. Paravertebral muscles are taut but non-spasmodic. Jessica's point tender bilaterally with radiation to the hips. Positive compression and thigh thrust test. MUSCULOSKELETAL: Motor is 3/5 bilaterally. He walks with an assisted with a very slow, slightly shuffled gait. Bilateral pedal edema is noted. NEUROLOGICAL: Diffuse polyneuropathy bilateral lower extremities to the level of the toes. Blunt patellar and Achilles reflexes bilaterally. Patient is cognitively intact. DIAGNOSIS: Lumbar radiculopathy, lumbar spinal canal stenosis. PLAN: The patient will attend aqua therapy 2-3 times a week for six weeks. At the end of the six weeks, I recommended he follow up with Dr. Davidson [facility]. At that time, he can go more thoroughly in depth of the patient's MRI and to make a future plan of care. Patient and agree with this plan, and he will be scheduled at six weeks.[id number] Note CONSULTATION CONSULTATION DATE: 11/12/2022 CHIEF COMPLAINT: Tailbone pain. HISTORY OF PRESENT ILLNESS: This is a very pleasant, 77-year-old gentleman who is accompanied by his . The patient has chronic tailbone pain. The patient, in the past, was treated for lumbar spondylosis. The pain has now rescinded over there. The patient notices more of the pain; it was initially at the level of L5-S1 junction, not it is focused in his tailbone. We had performed a caudal epidural steroid injection that afforded the patient 90% improvement of his pain; however, the pain which was in the interspinous region, now is along the sacrococcygeal area. Sitting mitigates the pain. Standing, walking, activities, ADLs aggravate the pain. The patient has had a very sedentary lifestyle and the patient's states that, for the last two years, he has not done much and will sit constantly. Under x-ray/under fluoroscopy, we were able to define that the patient has arthrosis along the sacrococcygeal junction and also arthrosis along the distal sacral vertebral body. The patient's PAST MEDICAL HISTORY / SURGICAL HISTORY / REVIEW OF SYSTEMS are noted on the chart, along with the MEDICATION LIST / ALLERGIES and the X-RAYS and the FLUOROSCOPY which were reviewed in office today. PHYSICAL EXAM: Upon physical examination, this is a pleasant, cooperative gentleman, who does not appear to be in any acute distress. He is very soft spoken to baseline. VITAL SIGNS: 124/69 with a heart rate of 69. At a height of 5'8 , the patient weighs 92 kg. FOCUSED EVALUATION: Along the sacrococcygeal region shows the patient has exquisite tenderness along the gluteal muscle and also tenderness along the sacrococcygeal junction. 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 PLAN: We will look to perform gluteal trigger point injections in office today. The patient and his understand and would like to proceed.[facility] [id number] NoteCONSULTATION PROCEDURE DATE: 11/12/2022 PREOPERATIVE DIAGNOSIS: Gluteal spasm. POSTOPERATIVE DIAGNOSIS: Gluteal spasm. PROCEDURE: Bilateral gluteal trigger point injection x2. Subsequent to obtaining informed consent, the patient was placed in the prone position. Alcohol prep was used to sterilize the site. A 25 gauge needle was advanced and it comes to rest along the gluteal trigger points. Negative aspiration. Marcaine 0.125% along with Kenalog 20 mg are placed on each side, for a total volume of 2 cc. Negative heme. We will have the patient follow up, at which time, depending on how the patient responds, the patient would be a candidate for superior sacrococcygeal joint injection in the future.[facility] [id number] NoteCONSULTATION CONSULTATION DATE: 09/03/2022 CHIEF COMPLAINT: Low back pain. HISTORY OF PRESENT ILLNESS: This is a very pleasant, 77-year-old gentleman who is known to the [facility]. The patient has chronic low back pain, lumbar degenerative disc disease, lumbar spondylosis. The patient reports having increased pain with the change in weather. Walking aggravates the patient's pain. The patient currently does not take any pain medication. The patient is on Plavix and, as such, cannot take NSAIDs. The patient's PAST MEDICAL HISTORY / SURGICAL HISTORY / REVIEW OF SYSTEMS are noted on the chart, along with the MEDICATION LIST / ALLERGIES and the RADIOLOGICAL IMAGES. PHYSICAL EXAM: Upon physical examination, this is a pleasant, cooperative gentleman, who is soft spoken. VITAL SIGNS: 135/65, with a heart rate of 69. At a height of 5'8 , the patient weighs 96 kg. FOCUSED EXAMINATION: The patient is guarded with his movements. The patient has some rigidity throughout his whole body. With regards to his back, loss of lumbar lordosis is noted. Pelvis is rotated anteriorly. Extension, compression does not create overt pain. Deep palpation aggravates and reproduces the patient's pain interspinously at the level of L5-S1. EXTREMITIES: No pedal edema. MUSCULOSKELETAL: The patient does have generalized motor weakness in his lower extremities. Iliopsoas muscles is weak. NEUROLOGICALLY: The patient has hypoesthesia along the L5 distribution, left hand side greater than right hand side. PSYCHIATRICALLY: Affect is appropriate. IMPRESSION: Lumbosacral neuritis, radiculitis, deconditioning. PLAN: We will schedule the patient for a caudal epidural steroid injection under fluoroscopy. Subsequent to that, we will attempt to have the patient participate with physical therapy. The patient understands and would like to proceed.[facility] [id number] NoteCONSULTATION CONSULTATION DATE: 05/23/2022 This is a 76-year-old gentleman returning to the clinic for a 3-month follow-up with chronic lower back pain. He did have radiofrequency ablations in September of 2021 and they have been successful for him. He was last seen on 02/12/2022 which at that time he had bilateral SI joint injections that afford him 100% relief. He has no SI joint pain today, but is complaining of lower diffuse lumbar pain which is aggravated by prolonged standing and walking only. Sitting down mitigates his pain. He leads a very sedentary lifestyle, does not use heat, heat rub, magnesium or exercise. He is on Plavix and Tramadol 50 mg p.r.n. He is accompanied by his today. REVIEW OF SYSTEMS, PAST MEDICAL HISTORY, ALLERGIES AND IMAGES: Have been reviewed and noted in the chart. PHYSICAL EXAM: VITAL SIGNS: Blood pressure 13/67, heart rate is 81, temperature is 97.7. Height is 5'8 , weighs 95 kg. GENERAL APPEARANCE: Flat affect, quiet, no acute distress but appropriate. FOCUSED EXAM: BACK: Range of motion is decreased in lateral rotation and flexion/extension. Paravertebral muscles are spasmodic with bilateral trigger points identified along L4-L5 bilaterally. Compression along those trigger points reproduces the patient pain pattern. No reproduction of spinoaxial pain to facet compressions of L2, L3 and L4, L5 bilaterally. The pain is non-radiating. Jessica's point is nontender bilaterally. MUSCULOSKELETAL: Diffuse muscle atrophy noted to bilateral lower extremities. The patient does walk in a slow, shuffled gait. Does not use and assistive device. Motor is 4 out of 5 bilaterally. NEUROLOGICAL: Radicular sensory is intact. Negative polyneuropathy, +1 bilateral patellar and Achilles reflexes. DIAGNOSIS: Lumbar paravertebral spasms, lumbar spondylosis, lumbar degenerative disk disease and muscle atrophy. PLAN: The patient will receive bilateral lumbar trigger point injections which he does consent to in the office today. I discussed with him about getting up moving, doing exercise, walking and being more compliant heat rub and heat application. He is compliant with his vitamins. He will be seen in the clinic in 3 months' time unless otherwise indicated and the patient agrees with his plan.[facility] [id number] NoteCONSULTATION PROCEDURE DATE: 05/23/2022 PRE AND POSTOPERATIVE DIAGNOSIS: Bilateral lumbar paravertebral spasms. PROCEDURE: Bilateral lumbar trigger point injections. Subsequent to obtaining informed consent, the patient was placed in the upright standing forward flexion position. Alcohol prep was used to sterilize the site in two locations. 25-gauge needle with 0.125% Marcaine and 40 mg of Kenalog was divided into two locations. The needle was placed to rest inside the trigger zone, negative heme. Medication was dispersed in a fan-like pattern and the patient tolerated it well. He will be followed up in the office.[facility] [id number] NoteCONSULTATION CONSULTATION DATE: 02/28/2022 This is a pleasant 76-year-old gentleman returning to the clinic status post bilateral SI joint injection completed on 02/12/2022 that afforded him 100% relief and is ongoing. The patient is very pleased with his results and feels that he is getting around with better ease in all his activities. He is currently going to aquatic therapy at the hospital which will be completed on 03/19. The patient states he has felt significant benefit from that therapy. He is also going through cardiac rehab at the same time. He does not list any aggravating factors at this time. Medications include Tramadol 50 mg p.r.n. as well as vitamin D, fish oil, multivitamin and B12. He does take Plavix. He denies any new radicular pain or vasomotor changes. REVIEW OF SYSTEMS, PAST MEDICAL HISTORY, ALLERGIES AND IMAGES: Have been reviewed and noted in the chart. PHYSICAL EXAM: VITAL SIGNS: Blood pressure 138/65, heart rate is 64, temperature is 97.3. Height is 5'8 , weighs 94 kg. . GENERAL APPEARANCE: No acute distress, pleasant, appropriate and sitting in the chair. FOCUSED EXAM: BACK: No reproduction of spinoaxial pain to direct compression along the posterior elements of the facets. Paravertebral muscles are non-spasmodic. Jessica's point is nontender, Fidel's and compression test negative. MUSCULOSKELETAL: Motor is intact, 4 out of 5 bilaterally. The patient walks with a stable gait and does not use an assistive device. NEUROLOGICAL: Negative polyneuropathy, bilateral patellar reflexes are+1. DIAGNOSIS: Bilateral sacroiliitis and chronic spinoaxial lower back pain. PLAN: The patient is to continue with his aquatic therapy which will be completed next month. We will continue to prescribe p.r.n. Tramadol 50 mg. Overall the patient is doing quite well and is compliant with his vitamin and his Boost supplements. We will see him in three months' time to maintain his medications unless otherwise indicated. [facility] Signed and Approved by: DIAMANTE SPAULDING . 03/04/2022 15:07:00[facility] noteNo assessment information availableHolzer Hospital Work Phone: Hisgscf general Narrative - Reported* Type Description Date Medical History HTN Medical History DM Medical History AK Medical History CAD Medical History LOPEZ Medical History Congestive heart failure Surgical History 8 stents Surgical History pacemaker 03/26/21 Hospitalization History see above [facility] Other History of Present illness Narrative* moved to [facility] near [place] * had flu sjot/ had covid booster * eye.. dr. mg sommer in [place] * hgm 120 s * no log here, ran out of test strips * agent lantus plus glimep * has a pcp in [facility] * no hypos [employer] [facility] Work Phone: History of Present illness Narrative* moved to [facility] [place] * had flu sjot/ had covid booster * eye.. dr. mg sommer in [place] * hgm 120 s * no log here, * agent lantus plus glimep * has a pcp in [facility] * no hypos * feels well * drove here from [facility] this am * will travel to [place] this winter [employer] [facility] [place] Work Phone: History of Present illness Narrative* feels well * takes meds ok * hobbies... TV * agent lantus plus glimep * hgm 100-130 * cards d.r G * eye in [place] * no sob or chest pains [employer] [facility] Work Phone: Instructions* Name Dates Details Instructions not documented [facility] Work Phone: Family History No Family History Records Found Mother Name Dates Details Family history of Adenocarci noma Of The Liver Status:Active Family history of Mother Dec eased At Age ___ Status:Active Father Name Dates Details Family history of Coronary A rtery Disease(V17.49) Status:Active Family history of Father Dec eased At Age ___ Status:Active Unknown Family Member Name Dates Details Adenocarcinoma Of The Liver: Mother Status:Active Mother At Age ___: Mother Status:Active Coronary Artery Disease: Fat her(V17.49) Status:Active Father At Age ___: Father Status:Active Unknown Family Member Name Dates Details Adenocarcinoma Of The Liver: Mother Status:Active Mother At Age ___: Mother Status:Active Coronary Artery Disease: Fat her(V1749) Status:Active Father At Age ___: Father Status:Active Unknown Family Member Name Dates Details Adenocarcinoma Of The Liver: Mother Status:Active Mother At Age ___: Mother Status:Active Coronary Artery Disease: Fat her(V17.49) Status:Active Father At Age ___: Father Status:Active Unknown Family Member Name Dates Details Father At Age ___: Father Status:Active Coronary Artery Disease: Fat her(V1749) Status:Active Mother At Age ___: Mother Status:Active Adenocarcinoma Of The Liver: Mother Status:Active Unknown Family Member Name Dates Details Adenocarcinoma Of The Liver: Mother Status:Active Mother At Age ___: Mother Status:Active Coronary Artery Disease: Fat her(V1749) Status:Active Father At Age ___: Father Status:Active Unknown Family Member Name Dates Details Father At Age ___: Father Status:Active Coronary Artery Disease: Fat her(V1749) Status:Active Mother At Age ___: Mother Status:Active Adenocarcinoma Of The Liver: Mother Status:Active Unknown Family Member Name Dates Details Father At Age ___: Father Status:Active Coronary Artery Disease: Fat her(V1749) Status:Active Mother At Age ___: Mother Status:Active Adenocarcinoma Of The Liver: Mother Status:Active Unknown Family Member Name Dates Details Father At Age ___: Father Status:Active Coronary Artery Disease: Fat her(V17.49) Status:Active Mother At Age ___: Mother Status:Active Adenocarcinoma Of The Liver: Mother Status:Active Unknown Family Member Name Dates Details Adenocarcinoma Of The Liver: Mother Status:Active Mother At Age ___: Mother Status:Active Coronary Artery Disease: Fat her(V17.49) Status:Active Father At Age ___: Father Status:Active Unknown Family Member Name Dates Details Adenocarcinoma Of The Liver: Mother Status:Active Mother At Age ___: Mother Status:Active Coronary Artery Disease: Fat her(V1749) Status:Active Father At Age ___: Father Status:Active Unknown Family Member Name Dates Details Father At Age ___: Father Status:Active Coronary Artery Disease: Fat her(V1749) Status:Active Mother At Age ___: Mother Status:Active Adenocarcinoma Of The Liver: Mother Status:Active Unknown Family Member Name Dates Details Adenocarcinoma Of The Liver: Mother Status:Active Mother At Age ___: Mother Status:Active Coronary Artery Disease: Fat her(V1749) Status:Active Father At Age ___: Father Status:Active Unknown Family Member Name Dates Details Father At Age ___: Father Status:Active Coronary Artery Disease: Fat her() Status:Active Mother At Age ___: Mother Status:Active Adenocarcinoma Of The Liver: Mother Status:Active Unknown Family Member Name Dates Details Adenocarcinoma Of The Liver: Mother Status:Active Mother At Age ___: Mother Status:Active Coronary Artery Disease: Fat her(V1749) Status:Active Father At Age ___: Father Status:Active Unknown Family Member Name Dates Details Adenocarcinoma Of The Liver: Mother Status:Active Mother At Age ___: Mother Status:Active Coronary Artery Disease: Fat her(V1749) Status:Active Father At Age ___: Father Status:Active Unknown Family Member Name Dates Details Adenocarcinoma Of The Liver: Mother Status:Active Mother At Age ___: Mother Status:Active Coronary Artery Disease: Fat her(V1749) Status:Active Father At Age ___: Father Status:Active Unknown Family Member Name Dates Details Adenocarcinoma Of The Liver: Mother Status:Active Mother At Age ___: Mother Status:Active Coronary Artery Disease: Fat her(V17.49) Status:Active Father At Age ___: Father Status:Active Unknown Family Member Name Dates Details Adenocarcinoma Of The Liver: Mother Status:Active Mother At Age ___: Mother Status:Active Coronary Artery Disease: Fat her(V17) Status:Active Father At Age ___: Father Status:Active Chief Complaint follow dm//bpfollow dm//bphere for DM / bp visit Summary Purpose Advance Directives No Advanced Directives Records Found Advance Directive Response Recorded Date/ Time Advance Directives No September 17, 2019 10:56am Advance Directive Response Recorded Date/ Time Advance Directives No September 17, 2019 9:56am Chief Complaint and Reason for Visit Chief Complaint Obstructive sleep ap lauri Additional Source Comments (unrecognized sect ion and content) No Status Records FoundNo Status Records FoundNo Status Records FoundNo Status Records FoundNo Status Records FoundNo Status Records FoundNo Status Records FoundNo Status Records FoundNo Status Records Found INFORMATION SOURCE (unrecogn ized section and content) DATE CREATED AUTHOR 05/27/2022 [employer] DATE CREATED AUTHOR AUTHOR'S ORGANIZ ATION 09/02/2022 [facility] DATE CREATED AUTHOR AUTHOR'S ORGANIZ ATION 10/21/2022 [facility] DATE CREATED AUTHOR AUTHOR'S ORGANIZ ATION 12/03/2022 [facility] DATE CREATED AUTHOR AUTHOR'S ORGANIZ ATION 12/06/2022 [facility] DATE CREATED AUTHOR AUTHOR'S ORGANIZ ATION 01/30/2023 [facility] DATE CREATED AUTHOR AUTHOR'S ORGANIZ ATION 02/26/2023 [facility] DATE CREATED AUTHOR AUTHOR'S ORGANIZ ATION 10/09/2023 [facility] DATE CREATED AUTHOR AUTHOR'S ORGANIZ ATION 10/21/2023 [facility] EPIC Care Teams (unrecognized sec tion and content) Team Status: Active Member Role Status Dates Benedicto Field DO Primary Care Provider Active Team Status: Inactive Member Role Status Dates Gregory Ybarra MD Attending Provider Active Benedicto Field DO Primary Care Provider, Referring Provider Active Team Status: Inactive Member Role Status Dates Benedicto Field DO Primary Care Provider Active Gregory N. Tate , MD Attending Provider Active Goals (unrecognized section and content) Goals may be documented in a n alternate section FOR RECORDS PERTAINING TO PATIENTS WHO ARE OR HAVE BEEN ENROLLED IN A CHEMICAL DEPENDENCY/SUBSTANCEABUSE PROGRAM, SOME INFORMATION MAY BE OMITTED. This clinical summary was aggregated from multiple sources. Caution should be exercised in using it in the provision of clinical care. This summary normalizes information from multiple sources, and as a consequence, information in this document may materially change the coding, format and clinical context of patient data. In addition, data may be omitted in some cases. CLINICAL DECISIONS SHOULD BE BASED ON THE PRIMARY CLINICAL RECORDS. [employer] [facility]. provides no warranty or guarantee of the accuracy or completeness of information in this document."
--- NOTE | 2023-10-23 12:41 | PM.CN ---
Consult Note: HPI Data of Consult Patient: known to practice within the last 3 years Requesting Physician: Machelle Jimenez NP Primary Care Provider: Valentino ANDRES Consult Narrative Reason for consult: f/u Narrative: Ramon Mariee a pleasant 78 year old male presents for evaluation and management of chronic low back pain without radiculopathy. Today rating pain 4/10, pain is increased with walking standing ADLS bending lifting and decreased with rest and sleep. Patient is unsure of his response to norco. Notices mild benefit from baclofen. cc:: CC: Machelle Jimenez NP Review of Systems ROS Status of ROS 10 or more systems reviewed and unremarkable except as noted in history and below Musculoskeletal Reports: back pain PFSH PFSH Medical History Pacemaker ?Z95.0 - Presence of cardiac pacemaker (ICD-10) Low back pain ?M54.50 - Low back pain, unspecified (ICD-10) Diabetes ?E11.9 - Type 2 diabetes mellitus without complications (ICD-10) Acute prostatitis ?N41.0 - Acute prostatitis (ICD-10) High cholesterol ?E78.00 - Pure hypercholesterolemia, unspecified (ICD-10) Hypertension ?I10 - Essential (primary) hypertension (ICD-10) Congestive heart failure ?I50.9 - Heart failure, unspecified (ICD-10) Angina at rest ?I20.8 - Other forms of angina pectoris (ICD-10) Heart attack ?I21.9 - Acute myocardial infarction, unspecified (ICD-10) Surgical History H/O heart artery stent ?Z95.5 - Presence of coronary angioplasty implant and graft (ICD-10) History of arthroplasty of left knee ?Z96.652 - Presence of left artificial knee joint (ICD-10) History of arthroplasty of right knee ?Z96.651 - Presence of right artificial knee joint (ICD-10) History of cholecystectomy ?Z90.49 - Acquired absence of other specified parts of digestive tract (ICD-10) Meds Home Medications and Allergies Home Medications Medication Instructions Recorded Confirmed Type B complex 11-folic acid 1 mg-C 100 1 tab PO QDAY 03/13/23 06/17/23 History mg-biotin 300 mcg-zinc 50 mg tablet (Dialyvite) acetaminophen 325 mg capsule 500 mg PO QID PRN pain 03/13/23 06/17/23 History (Tylenol) amlodipine 10 mg tablet 10 mg PO QDAY 03/13/23 06/17/23 History ascorbic acid (vitamin C) 1,000 mg 1 g PO QDAY 03/13/23 06/17/23 History tablet (C-1000) aspirin 325 mg tablet,delayed 81 mg PO QDAY 03/13/23 06/17/23 History release atorvastatin 20 mg tablet 20 mg PO QDAY 03/13/23 06/17/23 History clopidogrel 75 mg tablet (Plavix) 75 mg PO QDAY 03/13/23 06/17/23 History coenzyme Q10 75 mg capsule (Ultra 75 mg PO QDAY 03/13/23 06/17/23 History CoQ10) glimepiride 1 mg tablet (Amaryl) 1 mg PO QDAY 03/13/23 06/17/23 History insulin glargine 100 unit/mL (3 10 unit subcut QAM 03/13/23 06/17/23 History mL) subcutaneous pen (Lantus Solostar U-100 Insulin) lisinopril 10 mg tablet 10 mg PO QDAY 03/13/23 06/17/23 History metoprolol succinate 25 mg PO QDAY 03/13/23 06/17/23 History omega 7-fem-lqb-fish oil 1,000 mg 1 cap PO QDAY 03/13/23 06/17/23 History (120 mg-180 mg) capsule (Fish Oil) oxybutynin chloride 10 mg 10 mg PO QDAY 03/13/23 06/17/23 History tablet,extended release 24 hr vitamin B complex (B 1 tab PO QDAY 03/13/23 06/17/23 History Complex-Vitamin B12 tablet) vitamin E 268 mg (400 unit) capsule 180 mg PO QDAY 03/13/23 06/17/23 History hydrocodone 5 mg-acetaminophen 325 1 tab PO BID PRN pain #60 tabs 07/24/23 Rx mg tablet Allergies Allergy/AdvReac Type Severity Reaction Status Date / Time No Known Drug Allergies Allergy Verified 06/17/23 10:24 Exam Constitutional Documenting provider has reviewed patient's vital signs: yes Common normals: no apparent distress, oriented x3, healthy appearing, alert and well nourished General appearance: cooperative HENMT Common normals: normocephalic, hearing grossly normal bilaterally and moist oral mucous membranes Head and scalp: normocephalic Eye Common normals: PERRL Pupil: PERRL Neck & C-Spine Common normals: full ROM General: normal visual inspection Chest Common normals: inspection of chest normal Respiratory Common normals: normal respiratory effort, no retractions and no use of accessory muscles Back & Pelvis Lumbar spine/lower back: ROM limited and pain with ROM Other: positive facet loading in low back no radiculopathy no RADU Extremity Common normals: normal to inspection and full ROM Neuro Common normals: oriented x3, CN's II-XII intact bilaterally, moves all extremities, no focal motor deficits, no sensory deficits noted and deep tendon reflexes 2+ bilaterally Sensorium/orientation: alert Gait (neuro): antalgic Motor exam: strength 5/5 throughout and no movement abnormalities noted Psych Common normals: mental status grossly normal, thought process normal, cooperative, affect normal, speech normal and activity/motor behavior normal Speech: normal speech Thought process: normal thought process Results Additional Findings Additional findings: I have checked an [place] report on this patient today and there are no aberrancies noted in the prescribing history.?? A drug screen was completed and reviewed within the last year, and if there has not been a drug screen completed we ordered one today to monitor higher risk, state monitored pain medication use. As part of providing excellent, safe, comprehensive care, the following was completed at our patient's visit: 1. A medication reconciliation and review to ensure accurate knowledge of current/active medications, including asking our patients to inform us about any frne-evz-kpxlurl medications or herbal remedies/nutritional supplements/alternative remedies. 2. A review to specifically ensure our patients have had annual screening for: elevated body mass index (BMI), tobacco use, screening for depression, and screening for unhealthy alcohol use. When screening is concerning, patients are provided with education and the specific recommendation to discuss the concerning health issue and treatment options with their primary care provider. Assessment and Plan Assessment and Plan (1) Lumbar spondylosis: (2) Muscle spasm: (3) Chronic, continuous use of opioids: Assessment and Plan: I feel these medications are improving the patient's quality of life and allow them to tolerate activities of daily living as well as participate in recreational activity.? The patient does not report intolerable side effects. The patient is NOT opioid naive and non-pharmacologic and non-opioid treatment has failed to significantly relieve the patient's pain and improve functionality. The patient has a diagnosis that is related to a somatic or visceral pain etiology. ? ?? I reviewed with the patient the potential risks and side effects with the use of? opioid medications including but not limited to respiratory depression,? sedation, and even . I verified the patient has access to naloxone should? these effects occur. I advised the patient to avoid the use of any other? sedation substances including alcohol, THC, and benzodiazepines while? taking opioid medications due to the risk of compounding side effects and? detrimental outcomes. I reviewed the [employer], pain treatment agreement, urine? drug screen, and opioid start talking forms. The patient was advised to let? their family know they had Naloxone in case they would need to administer? the medication.? ?? A drug screen was completed within the last year, and no aberrancies were noted regarding their use of controlled substances. The patient understands they are subject to the terms and conditions of the pain contract that they have signed. ? ?? I have checked an [place] report on this patient today and there are no aberrancies noted in the prescribing history.? Plan refill hydrocodone-acetaminophen 5-325mg BID PRN moderate to severe pain 14 tablets for a 1 week trial as patient cannot remember how much it helped in the past. narcan previously ordered and discussed today continue PRN baclofen 10mg PRN muscle spasms continue OTC tylenol PRN mild to moderate pain continue HEP f/u 1 month. encouraged to call next week to discuss hydrocodone-acetaminophen, I will have my nursing staff call him and discuss effectiveness.
== END 2023-10-23 12:38 | disposition home or self-care (01) ==
LOC: PM 12:37
PROVIDERS: PCP Family Medicine; Visit Provider Nurse Practitioner
DX: M47.816 Spondylosis without myelopathy or radiculopathy, lumbar region (principal); Z79.891 Long term (current) use of opiate analgesic
CPT/HCPCS: G0463

== ENCOUNTER 2023-11-20 13:14 | Outpatient (OUT) | payer MEDICARE, SELFPAY ==
--- OUTSIDE RECORDS SUMMARY | 2023-11-20 13:18 | XMS_ITS | CCD ---
Author Name Unknown Address [address] [place] [address] Organization [facility] Care Team Providers Care Funeral Car Driver Name Role Phone Poli Mercado MD Unavailable [...] Attending Unavailable SPAULDING ., DIAMANTE Admitting Unavailable KAFTAN, DR Valentino LOPEZ Primary Care Unavailable LAKSHMIPATHY ., NARENDRANATH Attending Josy vailable LAKSHMIPATHY ., NARENDRANATH Admitting Josy vailable LAKSHMIPATHY ., NARENDRANATH Consulting Josy vailable KAFTAN, DR Valentino LOPEZ Primary Care Unavailable LAKSHMIPATHY ., NARENDRANATH Attending Josy vailable LAKSHMIPATHY ., NARENDRANATH Admitting Josy vailable LAKSHMIPATHY ., NARENDRANATH Consulting Josy vailable KAFTGRISELDA, DR Valentino LOPEZ Primary Care Unavailable Gregory Ybarra Unavailable MD Gregory Ybarra Attending Provider DO Benedicto Field Primary Care Provider [phone] DO Benedicto Field Referring Provider [phone] DO Benedicto Field Primary Care Provider [phone] MD Gregory Ybarra Attending Provider Benedicto Field Primary Care Unavailable Benedicto Field Referring Unavailable Gregory Ybarra Admitting Unavailable Gregory Ybarra Attending Unavailable Gregory Ybarra Admitting Unavailable Gregory Ybarra Attending Unavailable Benedicto Field Primary Care Unavailable TOM FIELD Attending Unavailable TOM FIELD Referring Unavailable TOM FIELD Attending Unavailable DAJA GUERRERO Attending Unavailable TOM FIELD Referring Unavailable CHARISSA SADIA Yesenia Attending Unavailable DAJA GUERRERO Attending Unavailable TOM [...] [Coronary atherosclerosis of unspecified type of vessel, [place] cour[place] oreilles or graft] Chronic Diabetes mellitus without complication [...] Test Name Value Interpretation Reference Range Facility CT LUNG SCREENING LOW DOSEon 11-18-2023 CT LUNG SCREENING LOW DOSE This is a summary report. The complete report is available in the patient's medical record. If you cannot access the medical record, please contact the sending organization for a detailed fax or copy. EXAMINATION: CT LUNG SCREENING LOW DOSE, 11/18/2023 1:48 PM CLINICAL HISTORY: screening, smoking history COMPARISON: None TECHNIQUE: Multidetector LDCT was performed through the chest using screening low dose CT scanning parameters without contrast. All CT scans at this facility use dose modulation, iterative reconstruction, and/or weight based dosing when appropriate to reduce radiation dose to as low as reasonably achievable. 3-D, sagittal and coronal reconstructions were performed. FINDINGS: There is a cardiac pacemaker on the left. The thyroid gland is within normal limits. The axillary regions demonstrate no significant lymphadenopathy or solid or cystic lesions. There are numerous calcified lymph nodes in the pretracheal and prevascular spaces. There are calcified lymph nodes in the right paratracheal space and the bilateral jonathan and in the subcarinal space. There is cardiomegaly and there are coronary artery calcifications. There is no pericardial effusion. The great vessels of the chest are normal in course and caliber. The lungs are free of focal consolidations or infiltrates. There are numerous heavily calcified nodules in both lungs, greater on the right consistent with prior carcinomatous inflammation. There are no solid or groundglass nodules. There are no pleural effusions. There are no acute bony abnormalities. The visualized portions of the upper abdomen are within normal limits. IMPRESSION: There are no acute cardiopulmonary changes. There are numerous small calcified nodules in both lungs, greater on the right and numerous calcified lymph nodes in the bilateral jonathan and in the other mediastinal spaces indicating prior granulomatous inflammation. There are no solid or groundglass nodules. Lung RADS Category 2. Continue annual screening with LDCT in 12 months ELECTRONICALLY SIGNED BY: Chino Landry MD Normal Not Available POINT OF CARE GLUCOSEon 05 Glucose [Mass/Vol] 223 mg/dL Critically high 74-106 [facility] Comment on above: Performed By: #### P OCGLUC #### [facility] [address] [place] [address] Dr. Radha Camarena Coding Summaryon 01-30-2023 Coding Summary HTMLBase 64 WfxjnebbRQl5iDm+PGhlYW Q+CE6MQJHpZ58mjVQdqA8O R1hENT7CLGXIBOARNY0QJK 6nsCJ8ZYnzY9WiesOc TirtqWZcJC78BKs4ONU4fE spULnevY6xrYHvV1k5YeXl RC94vM80WNsaUOHcDkE7Yw ZpbjsgbWFy H9lkNhSbnNEyPli+PHRhYm xlIHdpZHRoPScxMDAlJyBz uYtiIZ1wKa8fCKOyWGWnaW xhcHNlOiBj b5qwJNGdJCdlJU3opNuvZ1 CgqGB0MGQgz4t7Gt06mZP+ SWVuRWM6aRklXMxgw834Hl Jsp8swWRS1 qJShWNayEHB4Q35hh1D7IA TzBDAwJPW2kGR9sT2gbHji cemwL2JkiSCaNhN0QNG6gD HoeD3djRgc rmbpcJ2kYxp+E24HGQ5PQX IBSY8MClr2K5VqGqwlwOO+ IE80NUYrXR07oVSvtFDil5 ywmZa0UaDf IEZiTAV7fXhzEOowt4UxQT JqS71bfWDva4O5TDHrvXes lQIdTdImuRZ3eL6mJPpoim keh7roezzu Ycupx9faif97dC33Q32qAU uqBXUqKMJ7TZTvSRFlqIwd ms6nwW3eLl2+OQxdu0aqn5 tdzRg8JfMx UPNohxVqjTydNOU7l9BdYf 51A3GgpLprp0XmXqx2vm66 oACwy5V9uHP0CQreNUYxrU 7qOWwcNkW4 UVBmSkStyF17mIDbKKsvFt 4dpNpjmOrvCU0pALBgtbqr SBHkxM5eAUJfvSJpdEjfHR 4wNTBpbjtm e738RcWfIOQ2ZZOnuJZjU2 MkfD8tOvQsSKDhAACtF1Ga gBQqTLmoV242CJksZeJ9UU KjudIwB2Nn QRJpkFkaHbI6c0W0Sw7Wa3 BeifmcBCW0SQfbGPG4XcCi DgGzDbO6M5KiLcy8AYPugP rjCD0oS2Eq PXBkvkjntkmwcXG9NIDvGX YjwD09fYBtESwsLn1oh9R5 v199YVBlNAYqpY08Sh3hiI ogMTBwdCBU oS3doswux6bcckdlUjZaQV McSOm8CIm6ZMFhcUpoBvUj EPF1FrR1ZAG6uECeyU7mhC gdxqgnvO0d Oyc+X60tvO9yYCW2GCJ1va fsCFZtxeBrMZ73UK72A4Ui PjwvdGFibGU+PGRpdiBzdH kaMJ6qYdZb s4oxe5HdAVwiT2MeHIOyCT bfQxi9GGRuQLM8pYE0xW4m RVQpFJmvq1R1eSL3M6Mkri Kenb2lh1fi HPBqIEozE69dcXJhr9A4ZO BynPK2WJGysKfyWiRsuF59 Oyc+BIRrnNeap6EtWbehe8 cjo2wzxGz8 QvXxGNKnalSjrTusILZ3v7 VbPv41F82rOKtaEVGlUZYm PZRmEYRnbQlomi6iiA7rHr 8+PGNvbCB3 hXL9nL0aLKNuQkL4PXglG2 49JdDyyBRjZiazm9xhz1eq vOt5QkOqTYYlnqXvaBngHT R6c9JlTp35 C18kSVwvYZQmHNXeODWuDT ClgJnqmf3jyQ5fAr1+PC9j l8zduw02pE01xPC+PHRkIH V4sLkiKIgi XHMczM9iRHsbEoE6ASNeUk IfrT12pPQiXCuvQh6zaRvr pJrgLF4hIXPudhzhv461Lh Llv5asUUEd rFLbZQshCFZ5O38ts5R5IA MhPAIqPXU9vVY9sF4alGbc bjogbGVmdDsgdmVydGljYW mkCLrgQ043 IHRvcDsnPlBhdGllbnQgTm KpBTe6B2NyRxy7OMPbnEsk UW4avDLbUBvcXp7gmWpzsM dcJR0bVQFc tzddm022OjDfu2jtTTMglP PzIMccSIY5E56gi0Z4GMNd YCCzQJV3iXU9pN3baRkspr ogbGVmdDsg mkZcmKqcANuiJLhlX204WL RvcDsnPkJpcnRoIERhdGU6 KD20CH51cDItj0F0rLI8M4 BhZGRpbmct ncbekOM9HIWoKKOccE55Ai 1qrWifUc5kPCVnDZE3UUBp cYFbN2OaiC8kYmUwWVTiOJ RuQ0SkhBAk HXqvE571NRhvGpM9EAZzhq LfR0QlRRVqzRqkOaP4r0B9 Vn8OY8C5TE74UA00mREik2 B6uCX2G9Wg KWApjhfiegsuxWX4IUMdEO GpiT99Bi2vmHhbQy0qPPIc YDQ6SYUrrCNeP4BfoX6uUi AjMDAwMDAw P8FbkRYfYQptY065WOrgIa K4RRVaijZmK0EaTSXvdObk QaC2x3R1Lo5LCYy4MX85RR 44bJJxp4F0 xCR0D2UzZBYruyisxxymxO F1STVsRKXhqH21Rw6bbAhy Wa8yGUTqSQK2SBRruVQrB1 AmaO4aUkGs QZPlOXGbL0BnkEWdYCagA3 89DBzmRgO0XSFnzyUmM9Rx LOOrmTyhJfK7j8K7Dn4XTJ OuJO10ZBR4 gVF2QM63ZM13Q3GkVivmrN FibGU+PHRhYmxlIHdpZHRo ICbaJDVrKpDkvFxeKG2sZg 9yZGVyLWNv uUsatPVfOoTrj5xkJVQpQI lgLP0nhLwfT1QgcSP0RSXe c9u7Nf55C47mH3RfqKF+PG KynTA2iSC0 wK4tUdLwMuO5XQhnU302Zf LfrFJeCxhiw6xar5oytCk2 YiZ1GIIejgUauJzzRUC8a3 EzGn62T58s IHdpZHRoPSIxNSUiIHZhbG wpui1xvD7uWq7+PGNvbCB3 eWP2jP0tXiXdYqI0TFyiF1 49InRvcCIv Ptyzp8jka0uytSz7VjBiPT IwjtNflSpdAOO2t2VnLq49 K4JflQkud0SoSow5jw00wE Qzl7L5jRV7 C8HoMWOjmsnexJJieDmsJQ 8yWBSiixgzEEAjtS5xODNx F7x7UuAfOfI2HTraS3Wvwe I1DGHrzPDt JOamCSL9J36nv1L2ENBzDZ MxOSZ8rIZ1yP4jpAlmszza bGVmdDsgdmVydGljYWwtYW qdU176CQFa pVwxSHPifW5xVXPalPTfxF mnZX3bEHIxjbycDkePHZzK VrfnT8nVEPyPRDYTOBMSPF YPED96SF47 gVHcb4G3qHL4L1QtEYXemd ywrphthOQ8XVYiEWPyzU06 vYFlBMllGk1qw5V7m959JP QxFSUyhR64 Xz5rxNkfOVOlgEAQvC6fqp elt2arsvjaYnKlCSFaJBf4 YSr1DQMmfTibXaLdSTT8Ny B8IMV7lUOe hY3wiBbvenhdmQ9qWkn+MT FiBVqzBMa7XQccqGO+PHRk LFY2cYwpZVlyPHIbfV9gBH TmV2f3ZxYc RoK4DLycE5JyEIEbojqsJy 77tQ5lZuJuEfK4ETwtP8Yc whC0YJHtoWTpHTyvRQG0G7 3nw5P1JGCr XOCjSVN8hOH1xA5pyKpesf ogbGVmdDsgdmVydGljYWwt KJouA794UTOaaPrsFct5CM fwVDRhXS30 DS14vGEwd4O0yLZ1Y5EpFT VtuqvjgtmuoRG9EOPyOYOd pQ68fOSdKXwbAh4tc7D5c2 06IDAuMDUw pB45Pl2euZsoMCQuhEBFkN 8mitnst0netmtcNxWcMBEy TVt2CQm0RCLtbTrjIyFtZA H2JrZ5KXM4 sRFfjG0iqLiskjymsB5mDc c+TUFMRTwvdGQ+PHRkIHN0 eIotTJweYZLbvP8cNHSyN0 f7QtMtOpD4 XSdlY7VjBVFhvjveGg67qU 7dPjYkJlW3NQnhG7FqluI9 GYJpzNExZDuvKPV8D60bh0 Y7CYHzRUSk EAJ1xRX7hM9hnObianxsbN VmdDsgdmVydGljYWwtYWxp H227OBHvwOfqKo8EZY82WD 59F6JiJkju dGFibGU+PHRhYmxlIHdpZH QuJMduJLVsQuQglMwvET4g Yu8gQXOhQLComLxgiHJkDn Brn5jsONWq KUpsIL5ndOpjR5FczUW8KY Bza7w1Ty07C32mJ0CywRQ+ EIDvcQZ0qDV5eV2bDqBiFf S4YCqjP560 NrIweJJeOamgn0ktz5nfeB c6GhYxGCPiiqWkrBsxFGK2 p2YhJj40F92pXSmdZFHhXM IyMCUiIHZh iNvgdm9fnV7iWu6+PGNvbC F8sWF4fH6rPlHgXrZ6TLba B957RzAyaRXjCexxO19vY5 JvdXA+PHRy Ujl6CYNmpCamTJ5bwPPkQM ugSd6nGVL2QoTbMtIvUHvy V8MiAHVnkdbrptzjjXR1OS VsBOQbbL00 Fi9ucVehAr6pTNXeKNW5MI WraIAlJ9XafO0wNrGwBJMm VPJpJ7DrhWVfQNbpG568ZI umBpN6BPBu nmUrS4PuTTNpcAvwYjQ7r5 Y8Eb9FzAmwfDHcRX2xRtIh KJf0T5KfAqr7RGLabVdzRX 0ncGFkZGlu Oz3blDrkmSdlRK9hHPLalz ulj383LcOgx7miBLArsPSr RUotWOY8X10hl5Q5PHXuAL AjKFY9eTW9 kQ6lvVkgaveueMMhdHbbor EcdZnzKElbSKfwJ855EXIs jMrnXgTJXxi1U6TxWaw2GH TxpJivPT5v sEAqHOywVw1hvCxvcSgtGD 6fVGIwugjdy427JdQra7eh EQHisJBhKJmpYFY4G87kp6 L0JBDmZGNy CSP3hGJ1uZ8qtIclmswamW VmdDsgdmVydGljYWwtYWxp L906JUIyjFrvHu1UIem9F7 VwOfl5KMIb aHshKJ7niZLtULxrCo5xaP vbsWewFS5oFLRocxzxr756 FgTfm7dhRPUeaBWoMYmlPJ W2N93ax6F2 OZVvDKRcBML3qML3iM6kkT lnbjogbGVmdDsgdmVydGlj NKbvKQhdT532IMLegAkoUh BheWVyOjwv dGQ+GJ20hf70O9PrBqhbQn p2XLBuUXF4iMB1wK8zPTSd HQecm7S5xDC7Y0VvyzWqtf 1sa9rsAIGl ZTo (more content not included)... Normal [facility] Provider Orderson 01-29-2023 Provider Orders [id number]#[id number] 0OTGTIFF Normal [facility] PSA Diagnosticon 01-28-2023 PSA Diagnostic 5.10 ng/mL High 0.00-4.00 [facility] Comment on above: Result Comment: Access[employer] DxI [facility] Clinical System (Chemiluminescence) Values obtained with different assay methods or kits cannot be used interchangeably. Results cannot be interpreted as absolute evidence of the presence or absence of malignant disease. Performed By: #### [id number] #### [facility] (DEFAULT) [address] [place] [address] MR LUMBAR SPINE WO CONTRASTo n 12-06-2022 [...] it is assumed that there are 5 adh-avw-vcgqdtt, lumbar-type vertebrae, and the most caudal fully [...] by: Inder Robb MD 12/06/2022 8:40 AM HOT KNIFE FOXING CUTTER Technologist: JR SHEFALI Dictated By: INDER ROBB DO Signed By: INDER ROBB DO Signed Out: 12/06/22 09:40:58 Normal [facility] XR LS SPINE W BEND MIN 6 VIE WSon 12-05-2022 XR LS SPINE W BEND MIN 6 VIEWS EXAM: XR LS SPINE W BEND MIN 6 VIEWS 12/02/2022 10:45 AM HOT KNIFE FOXING CUTTER HISTORY: BACK PAIN TECHNOLOGIST NOTES: WHAT SYMPTOMS [...] by: Chente Reaves MD 12/05/2022 3:25 PM HOT KNIFE FOXING CUTTER Technologist: SANTOSH TABARES Dictated By: CHENTE REAVES MD Signed By: CHENTE REAVES MD Signed Out: 12/05/22 16:25:19 Normal [facility] POINT OF CARE GLUCOSEon 12-2 Glucose [Mass/Vol] 95 mg/dL Normal 74-106 [facility] Comment on above: Performed By: #### P OCGLUC #### [facility] [address] [place] [address] Dr. Radha Camarena XR Chest 2 Views*on [...] by Roe Garcia on 09/02/2022 1057 Normal [facility] [employer] Mechan[employer] HEMOGLOBIN A1Con 05-28-2022 Glucose [Mass/Vol] 160 mg/dL Normal [facility] Comment on above: Order Comment: PATIE NT FASTING Performed By: #### H BA1E #### [facility] [address] [place] [address] HbA1c (Bld) [Mass fraction] 7.2 % Abnormal [facility] Comment on above: Order Comment: PATIE NT FASTING Result Comment: Diag nosis of Diabetes-Adults Non-Diabetic: < or = 5.6% Increased risk for developing diabetes: 5.7-6.4% Diagnostic of diabetes: > or = 6.5% . Monitoring of Diabetes Age (y) Therapeutic Goal (%) Adults: >18 <7.0 Pediatrics: 13-18 <7.5 7-12 <8.0 0- 6 7.5-8.5 [place] [employer]. Diabetes Care 33(S1), Oct 2009. Performed By: #### H BA1E #### [facility] [address] [place] [address] BASIC METABOLIC PANELon 05-13 Anion gap [Moles/Vol] 13 mmol/L Normal 10 - 20 [facility] Comment on above: Order Comment: PATIE NT FASTING Performed By: #### B MP #### [facility] [address] [place] [address] Calcium [Mass/Vol] 9.9 mg/dL Normal 8.6 - 10.6 [facility] Comment on above: Order Comment: PATIE NT FASTING Performed By: #### B MP #### [facility] [address] [place] [address] Chloride [Moles/Vol] 101 mmol/L Normal 98 - 107 [facility] Comment on above: Order Comment: PATIE NT FASTING Performed By: #### B MP #### [facility] [address] [place] [address] Creatinine [Mass/Vol] 1.21 mg/dL Normal 0.50 - 1.30 [facility] Comment on above: Order Comment: PATIE NT FASTING Performed By: #### B MP #### [facility] [address] [place] [address] GFR/1.73 sq M.predicted among non-blacks MDRD (S/P/Bld) [Vol rate/Area] 62 mL/min/{1.73_m2} Normal >90 [facility] Comment on above: Order Comment: PATIE NT FASTING Result Comment: CALC ULATIONS OF ESTIMATED GFR ARE PERFORMED USING THE 2020 CKD-EPI STUDY REFIT EQUATION WITHOUT THE RACE VARIABLE FOR THE IDMS-TRACEABLE CREATININE METHODS. https://jasn.asnjournals.org/content/early//ASN.836899803 8 Performed By: #### B MP #### [facility] [address] [place] [address] Glucose [Mass/Vol] 88 mg/dL Normal 74 - 99 [facility] Comment on above: Order Comment: PATIE NT FASTING Performed By: #### B MP #### [facility] [address] [place] [address] HCO3 (Bld) [Moles/Vol] 30 mmol/L Normal 21 - 32 [facility] Comment on above: Order Comment: PATIE NT FASTING Performed By: #### B MP #### [facility] [address] [place] [address] Potassium [Moles/Vol] 4.6 mmol/L Normal 3.5 - 5.3 [facility] Comment on above: Order Comment: PATIE NT FASTING Performed By: #### B MP #### [facility] [address] [place] [address] Sodium [Moles/Vol] 139 mmol/L Normal 136 - 145 [facility] Comment on above: Order Comment: PATIE NT FASTING Performed By: #### B MP #### [facility] [address] [place] [address] Urea nitrogen [Mass/Vol] 28 mg/dL High 6 - 23 [facility] Comment on above: Order Comment: PATIE NT FASTING Performed By: #### B MP #### [facility] [address] [place] [address] Blood Pressure Cuff Sizeon 0 05-27-2022 Fall risk assessment a) No falls within the last year [email or web address] [facility] Work Phone: Tobacco use status [facility]PH[facility] b) No SMS [email or web address] [facility] Work Phone: Blood Pressure Cuff Size Adult SMS [email or web address] [facility] Work Phone: Hemoglobin A1Con 05-27-2022 Glucose [Mass/Vol] 160 mg/dL [facility] Work Phone: HbA1c (Bld) [Mass fraction] 7.2 % Abnormal [facility] Work Phone: Comment on above: Diagnosis of Diabete s-Adults Non-Diabetic: < or = 5.6% Increased risk for developing diabetes: 5.7-6.4% Diagnostic of diabetes: > or = 6.5%. Monitoring of Diabetes Age (y) Therapeutic Goal (%) Adults: >18 <7.0 Pediatrics: 13-18 <7.5 7-12 <8.0 0- 6 7.5-8.5 [place] [employer]. Diabetes Care 33(S1), Oct 2009. LIPID PANEL (CORONARY RISK 2 )on 05-27-2022 Cholesterol [Mass/Vol] 131 mg/dL Normal 0 - 199 [facility] Comment on above: Order Comment: PATIE NT [...] Performed By: #### L IPID #### [facility] [address] [place] [address] Cholesterol in HDL [Mass/Vol] 37.8 mg/dL Abnormal [facility] Comment on above: Order Comment: PATIE NT FASTING Result Comment: . AGE VERY LOW LOW NORMAL HIGH 0-19 Y < 35 < 40 40-45 ---- 20-24 Y ---- < 40 >45 ---- >24 Y ---- < 40 40-60 >60 . Performed By: #### L IPID #### [facility] [address] [place] [address] Cholesterol in LDL [Mass/Vol] 59 mg/dL Normal 0 - 99 [facility] Comment on above: Order Comment: PATIE NT FASTING Result Comment: . NEAR BORD AGE DESIRABLE OPTIMAL HIGH HIGH VERY HIGH 0-19 Y 0 - 109 --- 110-129 >/= 130 ---- 20-24 Y 0 - 119 --- 120-159 >/= 160 ---- >24 Y 0 - 99 100-129 130-159 160-189 >/=190 . Performed By: #### L IPID #### [facility] [address] [place] [address] Cholesterol in VLDL [Mass/Vol] 34 mg/dL Normal 0 - 40 [facility] Comment on above: Order Comment: PATIE NT FASTING Performed By: #### L IPID #### [facility] [address] [place] [address] Cholesterol.total/ Cholesterol in HDL [Mass ratio] 3.5 {ratio} Normal [facility] Comment on above: Order Comment: PATIE NT FASTING Result Comment: REF VALUES DESIRABLE < 3.4 HIGH RISK > 5.0 Performed By: #### L IPID #### [facility] [address] [place] [address] Triglyceride [Mass/Vol] 169 mg/dL High 0 - 149 [facility] Comment on above: Order Comment: RICHARD NT FASTING Result Comment: . AGE DESIRABLE [...] dosing. Performed By: #### L IPID #### [facility] [address] [place] [address] Laboratory - Chemistry and C hemistry - challengeon 05-27-2022 Anion gap [Moles/Vol] 13 mmol/L 10 - 20 [facility] Work Phone: Calcium [Mass/Vol] 9.9 mg/dL 8.6 - 10.6 [facility] Work Phone: Chloride [Moles/Vol] 101 mmol/L 98 - 107 [facility] Work Phone: CO2 [Moles/Vol] 30 mmol/L 21 - 32 [facility] Work Phone: Creatinine [Mass/Vol] 1.21 mg/dL See Below [facility] Work Phone: Comment on above: Reference Range: 0.5 0 - 1.30 Glucose [Mass/Vol] 88 mg/dL 74 - 99 [facility] Work Phone: Potassium [Moles/Vol] 4.6 mmol/L 3.5 - 5.3 [facility] Work Phone: Sodium [Moles/Vol] 139 mmol/L 136 - 145 [facility] Work Phone: Urea nitrogen [Mass/Vol] 28 mg/dL above high threshold 6 - 23 [facility] Work Phone: Lipid Panelon 05-27-2022 Cholesterol [Mass/Vol] 131 mg/dL 0 - 199 [facility] Work Phone: Comment on above: . [...] Cholesterol in HDL [Mass/Vol] 37.8 mg/dL Abnormal [facility] Work Phone: Comment on above: . AGE VERY LOW LOW N ORMAL HIGH 0-19 Y < 35 < 40 40-45 ---- 20- 24 Y ---- < 40 >45 ---- >24 Y ---- < 40 40-60 >60. Cholesterol in LDL [Mass/Vol] 59 mg/dL 0 - 99 [facility] Work Phone: Comment on above: . NEAR BORD AGE ANNE RABLE OPTIMAL HIGH HIGH VERY HIGH 0-19 Y 0 - 109 --- 110-129 >/= 130 ---- 20-24 Y 0 - 119 --- 120-159 >/= 160 ---- >24 Y 0 - 99 100-129 130-159 160-189 >/=190. Cholesterol.total/ Cholesterol in HDL [Mass ratio] 3.5 {ratio} [facility] Work Phone: Comment on above: REF VALUESDESIRABLE < 3.4HIGH RISK > 5.0 Triglyceride [Mass/Vol] 169 mg/dL above high threshold 0 - 149 [facility] Work Phone: Comment on above: . [...] Lipid Panel 34 mg/dL 0 - 40 [facility] Work Phone: No Panel Informationon 05-27 62 {mL/min/1.73m2} >90 [facility] Work Phone: Comment on above: CALCULATIONS OF ARISTIDES MATED GFR ARE PERFORMED USING THE 2020 CKD-EPI STUDY REFIT EQUATION WITHOUT THE RACE VARIABLE FOR THE IDMS-TRACEABLE CREATININE METHODS.https://jasn.asnjournals.org/content/early//ASN.2 606305051 Office Visit (Internal Medic ine)on 05-27-2022 Follow-up [...] [address]; Refill: 2;For: Diabetes mellitus; GAVNI = N; Verified Transmission to [id number]; Last Updated By: Pratima Callahan; 05/27/2022 10:05:07 AM Continue: FreeStyle InsuLinx System w/Device Kit; USE DIRECTED Rx By: Poli Mercado; Dispense: 0 Days ; #:1 Kit; Refill: 0;For: Diabetes mellitus; GAVIN = N; Verified Transmission to [facility] [employer] [facility]; Last Updated By: Pratima Callahan; 05/27/2022 10:05:07 AM Continue: FreeStyle In[employer]x Test In Vitro Strip; TEST ONCE DAILY *E11.9* Rx By: Poli Mercado; Dispense: 90 Days ; #:100 Strip; Refill: 3;For: Diabetes mellitus; GAVIN = N; Verified Transmission to [facility][id number]; Last Updated By: Pratima Callahan; 05/27/2022 10:05:07 AM Continue: Glimepiride 1 MG Oral Tablet; TAKE 1 TABLET BY MOUTH EVERY DAY Rx By: Poli Mercado; Dispense: 90 Days ; #:90 Tablet; Refill: 2;For: Diabetes mellitus; GAVIN = N; Verified Transmission to [facility] #[id number]; Last Updated By: Pratima Callahan; 05/27/2022 10:05:07 AM Continue: Lantus SoloStar 100 UNIT/ML Subcutaneous Solution Pen-injector; INJECT 20 UNITS SUBCUTANEOUSLY EVERY DAY OR AMOUNT DIRECTED Rx By: Poli Mercado; Dispense: 0 Days ; #:1 X 5 x 3 ML Pen; Refill: 1;For: Diabetes mellitus; GAVIN = N; Verified Transmission to [facility] #[id number]; Last Updated By: Pratima Callahan; 05/27/2022 10:05:07 AM 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 Hemoglobin A1C; Status:In Progress - Specimen/Data Collected; Done: [id number] Perform:Lab Services - Lab To Draw (Blood Test); Due:25Aug2022;Ordered; For: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; Ordered By:Poli Mercado; Elevated PSA Prostate Specific Antigen; Status:In Progress - Specimen/Data Collected; Done: [id number] Perform:Lab Services - Lab To Draw (Blood Test); Due:25Aug2022;Ordered; For:Elevated PSA; Ordered By:Poli Mercado; Hyperlipidemia Continue: Atorvastatin Calcium 20 MG Oral Tablet; TAKE 1 TABLET BY MOUTH EVERY DAY Rx By: Poli Mercado; Dispense: 90 Days ; #:90 Tablet; Refill: 3;For: Hyperlipidemia; GAVIN = N; Verified Transmission to [facility][id number]; Last Updated By: Pratima Callahan; 05/27/2022 10:05:07 AM Hypertension Start: Lisinopril 20 MG Oral Tablet; TAKE 1 TABLET DAILY Rx By: Poli Mercado; Dispense: 90 Days ; #:90 Tablet; Refill: 3;For: Hypertension; GAVIN = N; Verified Transmission to [facility][id number]; Last Updated By: Alesha Claudio; 05/27/2022 10:28:27 AM Basic Metabolic Panel; Status:In Progress - Specimen/Data Collected; Done: [id number] Perform:Lab Services - Lab To Draw (Blood Test); Due:25Aug2022;Ordered; For:Hypertension; Ordered By:Poli Mercado; Continue: amLODIPine Besylate 10 MG Oral Tablet; TAKE 1 TABLET BY MOUTH EVERY DAY Rx By: Poli Mercado; Dispense: 90 Days ; #:90 Tablet; Refill: 2;For: Hypertension; GAVIN = N; Verified Transmission to [facility][id number]; Last Updated By: Pratima Callahan; 05/27/2022 10:05:07 AM Lipid Panel; Status:In Progress - Specimen/Data Collected; Done: [id number] Perform:Lab Services - Lab To Draw (Blood Test); Due:25Aug2022;Ordered; For:Hypertension; Ordered By:Poli Mercado; Continue: Clopidogrel Bisulfate 75 MG Oral Tablet; TAKE 1 TABLET BY MOUTH EVERY DAY Rx By: Poli Mercado; Dispense: 90 Days ; #:90 Tablet; Refill: 3;For: Hypertension; GAVIN = N; Verified Transmission to [facility][id number]; Last Updated By: Pratima Callahan; 05/27/2022 [...] Last Updated (more content not included)... Normal [facility] PROSTATE SPECIFIC AGon 05-27 Prostate specific Ag [Mass/Vol] 4.54 ng/mL High 0.00 - 4.00 [facility] Comment on above: Order Comment: PATIE NT FASTING Result Comment: The FDA requires that the method used for PSA assay be reported to the physician. Values obtained with different assay methods must not be used interchangeably. This test was performed at [facility] using the Siemens Light HarmonicllGreen Is Good PSA method, which is a sandwich immunoassay using chemiluminescence for quantitation. The assay is approved for measurement of prostate-specific antigen (PSA) in serum and may be used in conjunction with a digital rectal examination in men 50 years and older as an aid in detection of prostate cancer. 3-Jymje-zchbowpnz inhibitors (e.g. Proscar, Finasteride, Avodart, Dutasteride and Varsha) for the treatment of BPH have been shown to lower PSA levels by an average of 50% after 6 months of treatment. Performed By: #### P SA #### [facility] [id number] [place] [address] Prostate Specific Antigenon 05-27-2022 Prostate specific Ag [Mass/Vol] 4.54 ng/mL above high threshold See Below [employer] Work Phone: Comment on above: Reference Range: 0.0 0 - 4.00The FDA requires that the method used for PSA assay be reported to the physician. Values obtained with different assay methods must not be used interchangeably. This test was performed at [facility] using the aaTag PSA method, which is a sandwich immunoassay using chemiluminescence for quantitation. The assay is approvedfor measurement of prostate-specific antigen (PSA) in serum and may be used in conjunction with a digital rectalexamination in men 50 years and older as an aid in detection of prostate cancer. 6-Glenc-txsjxxpaw inhibitors (e.g. Proscar, Finasteride, Avodart, Dutasteride and Varsha) for the treatment of BPH have been shown to lower PSA levels by an average of 50% after 6 months of treatment. Prostatic Specific Antigen, Totalon 01-16-2022 TPSA 4.280 ng/mL High <4.000 [facility] Specialist Comment on above: Result Comment: PSA Test Method: ECLIA/Dung e 601 Performed By: #### P SA #### [facility] [address], [place] [id number] BUNon 10-08-2021 Urea nitrogen [Mass/Vol] 31 mg/dL High 7-25 [facility] Specialist Comment on above: Performed By: #### C GUSTAVO, BUN #### [facility] [address], [place] [id number] Creatinineon 10-08-2021 Creatinine [Mass/Vol] 1.3 mg/dL Normal 0.7-1.4 [facility] Comment on above: Performed By: #### C GUSTAVO, BUN #### [facility] [address], [place] [id number] eGFRAA 66 mL/min/1.73m2 Normal >60 [facility] Specialist Comment on above: Performed By: #### C GUSTAVO, BUN #### [facility] [address], [place] [id number] eGFRNAA 54 mL/min/1.73m2 Low >60 [facility] Specialist Comment on above: Performed By: #### C GUSTAVO, BUN #### [facility] [address], [place] [id number] Hemoglobin A1Con 10-08-2021 EAG 162.81 Normal [facility] Specialist Comment on above: Performed By: #### A 1C #### [facility] [address] [place], [place] [id number] HbA1c (Bld) [Mass fraction] 7.3 % High 4.0-6.0 [employer] Comment on above: Performed By: #### A 1C #### [facility] [address], [place] [id number] Hemoglobin A1Con 09-05-2021 Glucose [Mass/Vol] 154 mg/dL [facility] Work Phone: HbA1c (Bld) [Mass fraction] 7.0 % Abnormal -[facility] Work Phone: Comment on above: Diagnosis of Diabete s-Adults Non-Diabetic: < or = 5.6% Increased risk for developing diabetes: 5.7-6.4% Diagnostic of diabetes: > or = 6.5%. Monitoring of Diabetes Age (y) Therapeutic Goal (%) Adults: >18 <7.0 Pediatrics: 13-18 <7.5 7-12 <8.0 0- 6 7.5-8.5 [place] [employer]. Diabetes Care 33(S1), Oct 2009. Laboratory - Chemistry and C hemistry - challengeon 09-05-2021 Anion gap [Moles/Vol] 12 mmol/L 10 - 20 [facility] Work Phone: Calcium [Mass/Vol] 10.0 mg/dL 8.6 - 10.6 [employer] [facility] Work Phone: Chloride [Moles/Vol] 103 mmol/L 98 - 107 -[facility] Work Phone: CO2 [Moles/Vol] 32 mmol/L 21 - 32 -[facility] Work Phone: Creatinine [Mass/Vol] 1.50 mg/dL above high threshold See Below [facility] Work Phone: Comment on above: Reference Range: 0.5 0 - 1.30 Glucose [Mass/Vol] 109 mg/dL above high threshold 74 - 99 [facility] Work Phone: Potassium [Moles/Vol] 5.2 mmol/L 3.5 - 5.3 -[facility] Work Phone: Sodium [Moles/Vol] 142 mmol/L 136 - 145 [facility] Work Phone: Urea nitrogen [Mass/Vol] 26 mg/dL above high threshold 6 - 23 -[facility] Work Phone: Lipid Panelon 09-05-2021 Cholesterol [Mass/Vol] 141 mg/dL 0 - 199 -[facility] Work Phone: Comment on above: . [...] dosing. Cholesterol in HDL [Mass/Vol] 48.3 mg/dL [facility] Work Phone: Comment on above: . AGE VERY LOW LOW N ORMAL HIGH 0-19 Y < 35 < 40 40-45 ---- 20- 24 Y ---- < 40 >45 ---- >24 Y ---- < 40 40-60 >60. Cholesterol in LDL [Mass/Vol] 75 mg/dL 0 - 99 -[facility] Work Phone: Comment on above: . NEAR BORD AGE ANNE RABLE OPTIMAL HIGH HIGH VERY HIGH 0-19 Y 0 - 109 --- 110-129 >/= 130 ---- 20-24 Y 0 - 119 --- 120-159 >/= 160 ---- >24 Y 0 - 99 100-129 130-159 160-189 >/=190. Cholesterol.total/ Cholesterol in HDL [Mass ratio] 2.9 {ratio} [facility] Work Phone: Comment on above: REF VALUESDESIRABLE < 3.4HIGH RISK > 5.0 Triglyceride [Mass/Vol] 87 mg/dL 0 - 149 [facility] Work Phone: Comment on above: . [...] Lipid Panel 17 mg/dL 0 - 40 [facility] Work Phone: No Panel Informationon 09-05 54 {mL/min/1.73m2} Abnormal >60 -[facility] Work Phone: Comment on above: CALCULATIONS OF ARISTIDES MATED GFR ARE PERFORMED USING THE MDRD STUDY EQUATION FOR THE IDMS-TRACEABLE CREATININE METHODS. CLIN CHEM 2007;53:766-72 45 {mL/min/1.73m2} Abnormal >60 [facility] Work Phone: Office Visit (Internal Medic ine)on [...] mellitus; GAVIN = N; Verified Transmission to [id number]; Last Updated By: Pratima Callahan; 09/05/2021 10:22:32 AM Basic Metabolic Panel; Status:In Progress - Specimen/Data Collected; Done: 05Sep2021 Perform:Lab Services - Lab To Draw (Blood Test); Due:[id number];Ordered; For:Diabetes mellitus; Ordered By:Poli Mercado; Continue: FreeStyle [employer] System w/Device Kit; USE DIRECTED Rx By: Poli Mercado; Dispense: 0 Days ; #:1 Kit; Refill: 0;For: Diabetes mellitus; GAVIN = N; Verified Transmission to [facility] [id number]; Last Updated By: Pratima Callahan; 09/05/2021 10:22:32 AM Continue: [employer]Style [employer] Test In Vitro Strip; TEST ONCE DAILY *E11.9* Rx By: Poli Mercado; Dispense: 90 Days ; #:100 Strip; Refill: 3;For: Diabetes mellitus; GAVIN = N; Verified Transmission to [id number]; Last Updated By: Pratima Callahan; 09/05/2021 10:22:32 AM Continue: Glimepiride 1 MG Oral Tablet; TAKE 1 TABLET BY MOUTH EVERY DAY Rx By: Poli Mercado; Dispense: 90 Days ; #:90 Tablet; Refill: 2;For: Diabetes mellitus; GAVIN = N; Verified Transmission to [facility]; Last Updated By: Pratima Callahan; 09/05/2021 10:22:32 AM Continue: Lantus SoloStar 100 UNIT/ML Subcutaneous Solution Pen-injector; INJECT 20 UNITS SUBCUTANEOUSLY EVERYDAY Rx By: Poli Mercado; Dispense: 0 Days ; #:1 X 5 x 3 ML Pen; Refill: 1;For: Diabetes mellitus; GAVIN = N; Verified Transmission to [id number]; Last Updated By: Pratima Callahan; 09/05/2021 [...] Hyperlipidemia; GAVIN = N; Verified Transmission to [facility]; Last Updated By: Pratima Callahan; 09/05/2021 10:22:32 AM Hypertension Continue: amLODIPine Besylate 10 MG Oral Tablet; TAKE 1 TABLET BY MOUTH EVERY DAY Rx By: Poli Mercado; Dispense: 90 Days ; #:90 Tablet; Refill: 2;For: Hypertension; GAVIN = N; Verified Transmission to [id number]; Last Updated By: Pratima Callahan; 09/05/2021 10:22:32 AM Continue: Clopidogrel Bisulfate 75 MG Oral Tablet; TAKE 1 TABLET BY MOUTH EVERY DAY Rx By: Poli Mercado; Dispense: 90 Days ; #:90 Tablet; Refill: 3;For: Hypertension; GAVIN = N; Verified Transmission to [id number]; Last Updated By: Pratima Callahan; 09/05/2021 [...] of Present Illness[place] had flu sjot/ had covid booster eye.. dr. mg sommer in [place] hgm 120 s no log here, agent lantus plus glimep has a pcp in [facility] no hypos feels well drove here from [facility] this am will travel to [place] this winter Review of Systems Constitutional: no [...] (I10) Obes (more content not included)... Normal [facility] Vital Signs Date Time Vital Sign Value Performing Clinician Facility 07-02-2023 14:00-0400 Body height 172.72 cm Gregory Ybarra Other [facility] Other 07-02-2023 14:00-0400 Body mass index (BMI) [Ratio] 31.17 kg/m2 Gregory Ybarra Other [facility] Other 07-02-2023 14:00-0400 Body weight 92.99 kg Gregory Ybarra Other [facility] Other 07-02-2023 14:00-0400 Diastolic blood pressure 56 mm[Hg] Gregory Ybarra Other [facility] Other 07-02-2023 14:00-0400 SaO2% (BldA) [Mass fraction] 61 % Gregory Ybarra Other [facility] Other 07-02-2023 14:00-0400 Systolic blood pressure 137 mm[Hg] Gregory Ybarra Other [facility] Other 05-27-2022 10:03-0400 Body height 172.72 cm [place] [facility] Work Phone: [facility] Work Phone: 05-27-2022 10:03-0400 Body mass index (BMI) [Ratio] 31.78 kg/m2 [place] [facility] Work Phone: [facility] Work Phone: 05-27-2022 10:03-0400 Body surface area Derived from formula 2.08 m2 [facility] C [facility] Work Phone: [facility] Work Phone: 05-27-2022 10:03-0400 Body temperature 96.4 [degF] [facility]lee C [facility] Work Phone: [facility] Work Phone: 05-27-2022 10:03-0400 Body weight 94.8 kg [place] [facility] Work Phone: [facility] Work Phone: 05-27-2022 10:03-0400 Diastolic blood pressure 62 mm[Hg] [place] [facility] Work Phone: [facility] Work Phone: 05-27-2022 10:03-0400 Heart rate 70 /min Ashlee C Kodz Work Phone: [facility] Work Phone: 05-27-2022 10:03-0400 SaO2% (BldA) [Mass fraction] 98 % Ashlee Henry Work Phone: [employer] Work Phone: 05-27-2022 10:03-0400 Systolic blood pressure 140 mm[Hg] Ashlee Copelandz Work Phone: [employer] Work Phone: Encounters Encounter Date Encounter Type Care Provider Facility Start: 11-18-2023 ambulatory TOM BARNARDGRISELDA Not Isis ilable Start: 11-03-2023 End: 11-03-2023 ambulatory DAJA GUERRERO Not Available Start: 10-20-2023 End: 10-20-2023 ambulatory TOM RODRIGUEZLEIGHTON Not Available Start: 10-02-2023 End: 10-02-2023 ambulatory TOM Mayank RODRIGUEZLEIGHTON Not Available Start: 10-01-2023 End: 10-01-2023 ambulatory Gregory Ybarra Facility:[facility] Start: 10-01-2023 End: 10-01-2023 ambulatory DO Diane Roberto Rodriguezleighton Work Phone: [facility] Work Phone: Start: 10-01-2023 End: 10-01-2023 Patient encounter procedure DO Benedicto Roberto Rodriguezleighton Work Phone: [facility] Work Phone: Start: 09-24-2023 End: 09-24-2023 ambulatory DAJA GUERRERO Not Available Start: 09-17-2023 End: 09-17-2023 ambulatory DAJA GUERRERO Not Available Start: 09-10-2023 End: 09-10-2023 ambulatory DAJA GUERRERO Not Available Start: 08-30-2023 End: 08-30-2023 ambulatory SADIA CARRINGTON Not Available Start: 07-02-2023 Office outpatient ne w 45 minutes Gregory Ybarra [facility] Start: 07-02-2023 End: 07-02-2023 ambulatory DO Benedicto Lopez Myraleighton Work Phone: [facility] Work Phone: Start: 07-02-2023 End: 07-02-2023 Patient encounter procedure DO Benedicto Field Work Phone: [facility] Work Phone: Start: 03-13-2023 ambulatory DEANNA FAUST . Facili ty:[facility]1 Start: 02-25-2023 End: 02-25-2023 ambulatory NARENDRANATH LAKSHMIPATHY . Facility:[facility] Start: 02-06-2023 End: 02-07-2023 ambulatory NARENDRANATH LAKSHMIPATHY . Facility: Start: 01-28-2023 End: 01-29-2023 ambulatory TOM RODRIGUEZGRISELDA Facility:[facility] Start: 01-09-2023 End: 01-10-2023 ambulatory NARENDRANATH LAKSHMIPATHY . Facility: Start: 01-02-2023 ambulatory DIAMANTE SPAULDING . Facility:[facility] Start: 12-19-2022 End: 12-20-[address] SADIE PERRY . Facility: Start: 12-14-2022 Rx Renewal [place] [facility] Work Phone: [facility] Work Phone: Start: 12-02-2022 End: 12-03-2022 ambulatory Valentino FIELD DO Facility:[id number] Start: 12-02-2022 End: 12-03-2022 ambulatory Valentino FIELD DO Facility:[id number] Start: 11-12-2022 End: 11-13-[address] SADIE PERRY . Facility:[facility] Start: 10-24-[address] SADIE PERRY . Faci lity:[facility] Start: 10-24-2022 Rx Renewal [place] C Kodz Work Phone: [facility] Work Phone: Start: 10-21-2022 ambulatory Poli Pierson Jess Facil [id number] Start: 10-18-2022 Rx Renewal [place] [facility] Work Phone: -[facility] Work Phone: Start: 10-01-2022 End: 10-01-[address] SADIE PERRY . Facility:[facility] Start: 09-03-2022 End: 09-04-[address] SADIE PERRY . Facility:[facility] Start: 08-04-2022 Rx Renewal Ashlee C Kodz Work Phone: [facility] Work Phone: Start: 05-29-2022 AUDIT Ashlee C Kodz Work Phone: [facility] Work Phone: Start: 05-27-2022 Office outpatient visit 25 minutes Ashlee C Kodz Work Phone: [facility] Work Phone: Start: 05-27-2022 ambulatory Poli Pierson Jess Vanegas [id number] Start: 05-23-2022 End: 05-24-[address] SADIE PERRY . Facility:[facility] Start: 05-10-2022 Rx Renewal [place] [facility] Work Phone: [facility] Work Phone: Start: 03-04-2022 Telephone encounter [place] [facility] Ko dz Work Phone: [facility] Work Phone: Start: 02-28-2022 End: 03-01-[address] SADIE PERRY . Facility:[facility] Start: 12-18-2021 Rx Renewal [place] [facility] Work Phone: [facility] Work Phone: Start: 10-06-2021 Rx Renewal [place] [facility] Work Phone: [facility] Work Phone: Start: 09-26-2021 AUDIT [place] [facility] Work Phone: [facility] Work Phone: Start: 09-10-2021 AUDIT Ashlee C Kodz Work Phone: [facility] Work Phone: Start: 09-06-2021 Rx Renewal [place] [facility] Work Phone: [facility] Work Phone: Start: 09-05-2021 Office outpatient visit 15 minutes [place] [facility] Work Phone: [facility] Work Phone: Start: 09-05-2021 Patient encounter procedure [place] [facility] Work Phone: [facility] Work Phone: Start: 08-12-2021 Rx Renewal Ashlee C Kodz Work Phone: [facility] Work Phone: Start: 03-09-2021 Rx Renewal [place] [facility] Work Phone: [facility] Work Phone: Start: 02-23-2020 Patient encounter procedure Poli Mercado MD [facility] Work Phone: Start: 08-25-2019 Patient encounter procedure Poli Mercado MD [facility] Work Phone: Start: 04-07-2019 Patient encounter procedure Poli Mercado MD [facility] Work Phone: Procedures Date Procedure Procedure Detail Performing Clinician History of Cath Plac ement Of Stent 3 Poli Mercado MD Total knee replacement Yolanda Mercado MD Comment on above: Bilateral; Plan of Treatment Date Care Activity Detail Author Start: 10-21-2022 FUV, Provider: Poli Mercado, Status: Pen, Time: 9:45 AM FUV, Provider: Poli Mercado, Status: Pen, Time: 9:45 AM [facility] Work Phone: Start: 05-27-2022 FUV, Provider: Poli Mercado, Status: Pen, Time: 11:00 AM FUV, Provider: Poli Mercado, Status: Pen, Time: 11:00 AM [facility] Work Phone: Start: 05-02-2022 FUV, Provider: Poli Mercado, Status: Pen, Time: 10:30 AM FUV, Provider: Poli Mercado, Status: Pen, Time: 10:30 AM [employer] Work Phone: Start: 09-05-2021 FUV, Provider: Poli Mercado, Status: Pen, Time: 10:00 AM FUV, Provider: Poli Mercado, Status: Pen, Time: 10:00 AM [facility] Work Phone: Immunizations Immunization Date Immunization Notes Care Provider Fa rebecca 08-24-2022 Pfizer COVID-19 Vac Bivalent 30 MCG/0.3ML Intramuscular Suspension [place] [facility] Work Phone: [facility] Work Phone: 07-18-2022 influenza, injectabl e, quadrivalent, contains preservative Ashlee C Kodz Work Phone: [facility] Work Phone: 01-24-2022 Moderna COVID-19 Vac cine 100 MCG/0.5ML Intramuscular Suspension Ashlee C Kodz Work Phone: [facility] Work Phone: 08-09-2021 Moderna COVID-19 Vac cine 100 MCG/0.5ML Intramuscular Suspension Ashlee C Kodz Work Phone: [facility] Work Phone: 2021 Fluzone High-Dose Quadrivalent 0.7 ML Intramuscular Suspension Prefilled Syringe [place] [facility] Work Phone: [employer] Work Phone: 12-05-2020 Moderna COVID-19 Vac cine 100 MCG/0.5ML Intramuscular Suspension [place] [facility] Work Phone: -[facility] Work Phone: 11-07-2020 Moderna COVID-19 Vac cine 100 MCG/0.5ML Intramuscular Suspension [place] [facility] Work Phone: [employer] Work Phone: 10-04-2020 zoster vaccine recombinant Ashlee C Kodz Work Phone: [facility] Work Phone: 08-04-2020 zoster vaccine recombinant [place] [facility] Work Phone: -[facility] Work Phone: 2020 Fluad Quadrivalent 0 .5 ML Intramuscular Prefilled Syringe [place] [facility] Work Phone: [facility] Work Phone: 07-28-2019 influenza, high dose seasonal, preservative-free Poli Mercado MD -[facility] Work Phone: Comment on above: Series: 08-25-2018 pneumococcal polysaccharide vaccine, 23 valent [place] [facility] Work Phone: -[facility] Work Phone: 07-13-2018 influenza, high dose seasonal, preservative-free Ashlee C Kodz Work Phone: [facility] Work Phone: 07-28-2017 influenza, high dose seasonal, preservative-free Ashlee C Kodz Work Phone: -[facility] Work Phone: 07-26-2015 influenza, high dose seasonal, preservative-free Ashlee Henry Work Phone: [facility] Work Phone: 07-21-2014 influenza, high dose seasonal, preservative-free Poli Mercado MD -[facility] Work Phone: Comment on above: Series: 11-04-2012 pneumococcal polysaccharide vaccine, 23 valent Poli Mercado MD -[facility] Work Phone: Comment on above: Series: 10-09-2012 zoster vaccine, live Poli Mercado MD [facility] Work Phone: Comment on above: Series: Payers Date Payer Category Payer Self-pay [id number] 2008 Medicare 2008 Private Health Insurance 1959 Medicare [id number] 1959 Unknown [id number] 1945 Unknown [id number] 2.16.840.1.196386.3.579.2.356 1945 Unknown [id number] 2..840.1.559342.3.579.2.356 1945 Unknown [id number] 2.16.840.1.467207.3.579.2.159 1945 Unknown [id number] 2.16.840.1.205452.3.579.2.159 1945 Unknown [id number] 2.16.840.1.410752.3.579.2.718 1945 Unknown [id number] 2.16.840.1.176032.3.579.2.593 1945 Unknown [id number] 2.16.840.1.241307.3.579.2.593 1945 Unknown [id number] 2.16.840.1.762762.3.579.2.593 1945 Unknown [id number] 2.16.840.1.999382.3.579.2.593 1945 Unknown [id number] 2.16.840.1.626075.3.579.2.593 1945 Unknown [id number] 2.16.840.1.998338.3.579.2.593 1945 Unknown [id number] 2.16.840.1.290734.3.579.2.593 1945 Unknown [id number] 2.16.840.1.780087.3.579.2.593 1945 Unknown [id number] 2.16.840.1.339912.3.579.2.593 1945 Unknown [id number] 2.16.840.1.378339.3.579.2.593 1945 Unknown [id number] 2.16.840.1.277562.3.579.2.593 1945 Unknown [id number] 2.16.840.1.587395.3.579.2.593 1945 Unknown [id number] 2.16.840.1.082849.3.579.2.125 9 1945 Unknown [id number] 2.16.840.1.790546.3.579.2.125 9 1945 Unknown [id number] 2.16.840.1.659319.3.579.2.125 9 1945 Unknown [id number] 2.16.840.1.573383.3.579.2.125 9 1945 Unknown [id number] 2.16.840.1.917723.3.579.2.125 9 1945 Unknown [id number] 2.16.840.1.154544.3.579.2.125 9 1945 Unknown [id number] 2.16.840.1.347757.3.579.2.125 9 1945 Unknown [id number] 2.16.840.1.706093.3.579.2.125 9 1945 Unknown [id number] 2.16.840.1.849030.3.579.2.125 9 Medicare Medicare Outpatient [id number] 8A [id number] Unknown Unknown [id number] 2.16.840.1.875195.3.579.2.531 Unknown [id number] 2.16.840.1.659932.3.579.2.531 Social History Date Type Detail Facility Never Drank Alcohol Never Drank Alcohol M [facility] Work Phone: Comment on above: Quit 1987 (1PPD x 20 years); Sex Assigned At Sex Assigned At [facility] Other Start: 06-04-2020 End: 06-04-2020 Tobacco smoking status NHIS Ex-smoker (finding) [facility] Start: 1945 Sex Assigned At Male [facility] NEGATED: Highlighted row - - [facility] Work Phone: Medical Equipment Procedure Code Equipment [...] ONCE DAILY *E11.9* Quantity: 100 Refills: 3 Jess WU Poli Start : 23-Feb-2014 Active Start: 02-23-2014 Functional Status Date Assessment Result Facility NEGATED: Highlighted row Functional performance Functional status health issues are not documented Disease -[facility] Work Phone: Mental Status Date Assessment Result Facility NEGATED: Highlighted row Cognitive function [Interpretation] Cognitive status health issues are not documented Disease [facility] Work Phone: Clinical Notes 02-28-2022 to 07-02-2023 [...] changes in symptoms and/or problems with treatment [facility] Other 03-30-2023 NoteCONSULTATION CONSULTATION DATE: 01/09/2023 TO: [...] the response to his change in medication.[facility] 12-19-2022 NoteCONSULTATION CONSULTATION DATE: 12/26/2022 HISTORY: This [...] from a physician they saw at the [facility]. The patient and the are interested in [...] he will be scheduled at six weeks.[id number] Note CONSULTATION CONSULTATION DATE: 11/12/2022 CHIEF COMPLAINT: [...] his understand and would like to proceed.[id number] NoteCONSULTATION PROCEDURE DATE: 11/12/2022 PREOPERATIVE DIAGNOSIS: Gluteal [...] superior sacrococcygeal joint injection in the future.[id number] NoteCONSULTATION CONSULTATION DATE: 09/03/2022 CHIEF COMPLAINT: Low [...] patient understands and would like to proceed.[id number] NoteCONSULTATION CONSULTATION DATE: 05/23/2022 This is a [...] and the patient agrees with his plan.[id number] NoteCONSULTATION PROCEDURE DATE: 05/23/2022 PRE AND POSTOPERATIVE [...] will be followed up in the office.[id number] NoteCONSULTATION CONSULTATION DATE: 02/28/2022 This is a [...] to maintain his medications unless otherwise indicated. [facility] Signed and Approved by: DIAMANTE SPAULDING . 03/04/2022 15:07:00[facility] noteNo assessment information [facility]Ber[facility] Work Phone: Hiszero general Narrative - Reported* Type Description Date Medical History HTN Medical History DM Medical History MA Medical History CAD Medical History LOPEZ Medical History Congestive heart failure Surgical History 8 stents Surgical History pacemaker 03/26/21 Hospitalization History see above [facility] Other History of Present illness Narrative* moved to [facility] * had flu sjot/ had covid booster * eye.. dr. mg sommer in [place] * hgm 120 s * no log here, ran out of test strips * agent lantus plus glimep * has a pcp in [facility] * no hypos [employer] [facility] Work Phone: History of Present illness Narrative* moved to [facility] * had flu sjot/ had covid booster * eye.. dr. mg sommer in [place] * hgm 120 s * no log here, * agent lantus plus glimep * has a pcp in [facility] * no hypos * feels well * drove here from [facility] this am * will travel to [place] this winter [employer] [facility] Work Phone: History of Present illness Narrative* feels well * takes meds ok * hobbies... TV * agent lantus plus glimep * hgm 100-130 * cards d.r G * eye dr. catherine martins * no sob or chest pains [employer] Work Phone: Instructions* Name Dates Details Instructions not documented [facility] [employer] Phone: Family History No Family History Records [...] ___: Mother Status:Active Coronary Artery Disease: Fat her(V149) Status:Active Father At Age ___: Father Status:Active [...] ___: Father Status:Active Coronary Artery Disease: Fat her(49) Status:Active Mother At Age ___: Mother Status:Active Adenocarcinoma Of The Liver: Mother Status:Active Unknown Family Member Name Dates Details Adenocarcinoma Of The Liver: Mother Status:Active Mother At Age ___: Mother Status:Active Coronary Artery Disease: Fat her(749) Status:Active Father At Age ___: Father Status:Active [...] section and content) DATE CREATED AUTHOR 05/27/2022 [employer] DATE CREATED AUTHOR AUTHOR'S ORGANIZ ATION 09/02/2022 [facility] dical Specialist DATE CREATED AUTHOR AUTHOR'S ORGANIZ ATION 10/21/2022 [facility] [place] DATE CREATED AUTHOR AUTHOR'S ORGANIZ ATION 12/03/2022 [facility] DATE CREATED AUTHOR AUTHOR'S ORGANIZ ATION 12/06/2022 [facility] DATE CREATED AUTHOR AUTHOR'S ORGANIZ ATION 01/30/2023 [facility] DATE CREATED AUTHOR AUTHOR'S ORGANIZ ATION 02/26/2023 [facility] DATE CREATED AUTHOR AUTHOR'S ORGANIZ ATION 10/09/2023 [facility] DATE CREATED AUTHOR AUTHOR'S ORGANIZ ATION 11/19/2023 [facility] dical Specialists EPIC Care Teams (unrecognized sec tion and content) Team Status: Active Member Role Status Dates Benedicto Field DO Primary Care Provider Active Team Status: Inactive Member Role Status Dates Gregory Ybarra MD Attending Provider Active Benedicto Field , Primary Care Provider, Referring Provider Active Team Status: Inactive Member Role Status Dates Benedicto Field , Primary Care Provider Active Gregory Ybarra MD Attending Provider Active Goals (unrecognized section [...] BE BASED ON THE PRIMARY CLINICAL RECORDS. [facility] [employer] [facility]. provides no warranty or guarantee of the accuracy or completeness of information in this document.
--- NOTE | 2023-11-20 13:49 | PM.CN ---
Consult Note: HPI Data of Consult Patient: known to practice within the last 3 years Requesting Physician: Machelle Jimenez NP Primary Care Provider: Valentino ANDRES Consult Narrative Reason for consult: f/u Narrative: Ramon Mariee a pleasant 78 year old male presents for evaluation and management of chronic low back pain without radiculopathy. Today rating pain 4/10, pain is increased with walking standing ADLS bending lifting and decreased with rest and sleep. Patient reports norco is not as effective for his pain and daily goals as tramadol. Notices mild benefit from baclofen. Patient would like to stand during moravian and improve ambulation. did not benefit from bilateral l4-5 L5-S1 facet medial branch RFA. Patient would like to go back on tramadol as he has failed to benefit from tylenol, and cannot take NSAIDs on plavix. cc:: CC: Machelle Jimenez NP Review of Systems ROS Status of ROS 10 or more systems reviewed and unremarkable except as noted in history and below Musculoskeletal Reports: back pain PFSH PFSH Medical History Pacemaker ?Z95.0 - Presence of cardiac pacemaker (ICD-10) Low back pain ?M54.50 - Low back pain, unspecified (ICD-10) Diabetes ?E11.9 - Type 2 diabetes mellitus without complications (ICD-10) Acute prostatitis ?N41.0 - Acute prostatitis (ICD-10) High cholesterol ?E78.00 - Pure hypercholesterolemia, unspecified (ICD-10) Hypertension ?I10 - Essential (primary) hypertension (ICD-10) Congestive heart failure ?I50.9 - Heart failure, unspecified (ICD-10) Angina at rest ?I20.8 - Other forms of angina pectoris (ICD-10) Heart attack ?I21.9 - Acute myocardial infarction, unspecified (ICD-10) Surgical History H/O heart artery stent ?Z95.5 - Presence of coronary angioplasty implant and graft (ICD-10) History of arthroplasty of left knee ?Z96.652 - Presence of left artificial knee joint (ICD-10) History of arthroplasty of right knee ?Z96.651 - Presence of right artificial knee joint (ICD-10) History of cholecystectomy ?Z90.49 - Acquired absence of other specified parts of digestive tract (ICD-10) Meds Home Medications and Allergies Home Medications Medication Instructions Recorded Confirmed Type B complex 11-folic acid 1 mg-C 100 1 tab PO QDAY 03/13/23 06/17/23 History mg-biotin 300 mcg-zinc 50 mg tablet (Dialyvite) acetaminophen 325 mg capsule 500 mg PO QID PRN pain 03/13/23 06/17/23 History (Tylenol) amlodipine 10 mg tablet 10 mg PO QDAY 03/13/23 06/17/23 History ascorbic acid (vitamin C) 1,000 mg 1 g PO QDAY 03/13/23 06/17/23 History tablet (C-1000) aspirin 325 mg tablet,delayed 81 mg PO QDAY 03/13/23 06/17/23 History release atorvastatin 20 mg tablet 20 mg PO QDAY 03/13/23 06/17/23 History clopidogrel 75 mg tablet (Plavix) 75 mg PO QDAY 03/13/23 06/17/23 History coenzyme Q10 75 mg capsule (Ultra 75 mg PO QDAY 03/13/23 06/17/23 History CoQ10) glimepiride 1 mg tablet (Amaryl) 1 mg PO QDAY 03/13/23 06/17/23 History insulin glargine 100 unit/mL (3 10 unit subcut QAM 03/13/23 06/17/23 History mL) subcutaneous pen (Lantus Solostar U-100 Insulin) lisinopril 10 mg tablet 10 mg PO QDAY 03/13/23 06/17/23 History metoprolol succinate 25 mg PO QDAY 03/13/23 06/17/23 History omega 6-ruj-fqu-fish oil 1,000 mg 1 cap PO QDAY 03/13/23 06/17/23 History (120 mg-180 mg) capsule (Fish Oil) oxybutynin chloride 10 mg 10 mg PO QDAY 03/13/23 06/17/23 History tablet,extended release 24 hr vitamin B complex (B 1 tab PO QDAY 03/13/23 06/17/23 History Complex-Vitamin B12 tablet) vitamin E 268 mg (400 unit) capsule 180 mg PO QDAY 03/13/23 06/17/23 History hydrocodone 5 mg-acetaminophen 325 1 tab PO BID PRN pain #60 tabs 07/24/23 Rx mg tablet baclofen 10 mg tablet 10 mg PO BID #60 tabs 10/23/23 Rx baclofen 10 mg tablet 10 mg PO BID #60 tabs 10/23/23 Rx hydrocodone 5 mg-acetaminophen 325 1 tab PO BID PRN pain #14 tabs 10/23/23 Rx mg tablet Allergies Allergy/AdvReac Type Severity Reaction Status Date / Time No Known Drug Allergies Allergy Verified 06/17/23 10:24 Exam Constitutional Documenting provider has reviewed patient's vital signs: yes Common normals: no apparent distress, oriented x3, healthy appearing, alert and well nourished General appearance: cooperative HENMT Common normals: normocephalic, hearing grossly normal bilaterally and moist oral mucous membranes Head and scalp: normocephalic Eye Common normals: PERRL Pupil: PERRL Neck & C-Spine Common normals: full ROM General: normal visual inspection Chest Common normals: inspection of chest normal Respiratory Common normals: normal respiratory effort, no retractions and no use of accessory muscles Back & Pelvis Lumbar spine/lower back: ROM limited and pain with ROM Other: positive facet loading in low back no radiculopathy no RADU Extremity Common normals: normal to inspection and full ROM Neuro Common normals: oriented x3, CN's II-XII intact bilaterally, moves all extremities, no focal motor deficits, no sensory deficits noted and deep tendon reflexes 2+ bilaterally Sensorium/orientation: alert Gait (neuro): antalgic Motor exam: strength 5/5 throughout and no movement abnormalities noted Psych Common normals: mental status grossly normal, thought process normal, cooperative, affect normal, speech normal and activity/motor behavior normal Speech: normal speech Thought process: normal thought process Results Additional Findings Additional findings: I have checked an OARRS report on this patient today and there are no aberrancies noted in the prescribing history.?? A drug screen was completed and reviewed within the last year, and if there has not been a drug screen completed we ordered one today to monitor higher risk, state monitored pain medication use. As part of providing excellent, safe, comprehensive care, the following was completed at our patient's visit: 1. A medication reconciliation and review to ensure accurate knowledge of current/active medications, including asking our patients to inform us about any [id number]-meb-[id number] medications or herbal remedies/nutritional supplements/alternative remedies. 2. A review to specifically ensure our patients have had annual screening for: elevated body mass index (BMI), tobacco use, screening for depression, and screening for unhealthy alcohol use. When screening is concerning, patients are provided with education and the specific recommendation to discuss the concerning health issue and treatment options with their primary care provider. Assessment and Plan Assessment and Plan (1) Lumbar spondylosis: (2) Muscle spasm: (3) Chronic, continuous use of opioids: Assessment and Plan: I feel these medications are improving the patient's quality of life and allow them to tolerate activities of daily living as well as participate in recreational activity.? The patient does not report intolerable side effects. The patient is NOT opioid naive and non-pharmacologic and non-opioid treatment has failed to significantly relieve the patient's pain and improve functionality. The patient has a diagnosis that is related to a somatic or visceral pain etiology. ? ?? I reviewed with the patient the potential risks and side effects with the use of? opioid medications including but not limited to respiratory depression,? sedation, and even . I verified the patient has access to naloxone should? these effects occur. I advised the patient to avoid the use of any other? sedation substances including alcohol, THC, and benzodiazepines while? taking opioid medications due to the risk of compounding side effects and? detrimental outcomes. I reviewed the [employer], pain treatment agreement, urine? drug screen, and opioid start talking forms. The patient was advised to let? their family know they had Naloxone in case they would need to administer? the medication.? ?? A drug screen was completed within the last year, and no aberrancies were noted regarding their use of controlled substances. The patient understands they are subject to the terms and conditions of the pain contract that they have signed. ? ?? I have checked an OARRS report on this patient today and there are no aberrancies noted in the prescribing history.? (4) Weakness: Plan restart tramadol 50mg BID PRN moderate to severe pain, will provide 1 week supply as a trial. If patient finds pain relief and functional improvement we will refill. PT for low back pain and weakness continue PRN baclofen 10mg PRN muscle spasms continue OTC tylenol PRN mild to moderate pain continue HEP f/u 2 months
== END 2023-11-20 13:15 | disposition home or self-care (01) ==
LOC: PM 13:15
PROVIDERS: PCP Family Medicine; Visit Provider Nurse Practitioner
DX: M47.816 Spondylosis without myelopathy or radiculopathy, lumbar region (principal); M62.838 Other muscle spasm; Z79.891 Long term (current) use of opiate analgesic; R53.1 Weakness
CPT/HCPCS: G0463

== ENCOUNTER 2023-11-24 09:27 | Outpatient (RCR) | payer MEDICARE, SELFPAY | END 2023-12-03 11:19 | disposition home or self-care (01) | LOC: PT 09:27 | PROVIDERS: PCP Family Medicine; Visit Provider Nurse Practitioner | DX: M54.50 Low back pain, unspecified (principal); R53.1 Weakness | CPT/HCPCS: 97110; 97161 ==

== ENCOUNTER 2024-03-12 18:39 | Emergency (ER) | payer MEDICARE, SELFPAY ==
[2024-03-12 18:41] VITALS: BP 136/67; PULSE 78; TEMP 36.6; O2SAT 97; BMI 29.5
[2024-03-12 18:54] VITALS: O2SAT 97
--- NOTE | 2024-03-12 19:13 | CT_ITS ---
The [address] [address] Patient Name: BEATRICE CRUZ MRN: [id number] date: 1945 Sex: M Assigned Patient Location: ER Current Patient Location: ER Accession/Order Number: [id number] Exam Date: 03/12/2024 19:19 Report Date: 03/12/2024 20:44 At the request of: KIM HILARIO Procedure: CT cervical spine wo con EXAM: CT cervical spine wo con HISTORY: neck pain s/p fall COMPARISON: None. TECHNIQUE: Unenhanced axial CT of the cervical spine was performed with coronal and sagittal reformats provided. FINDINGS: Craniocervical junction is maintained. Vertebral body heights and alignment are preserved. Prominent anteriorly projecting bridging osteophytes throughout the cervical spine. No acute fracture or aggressive osseous abnormality. Multilevel degenerative disc disease without significant osseous narrowing of the spinal canal. Multilevel bilateral facet arthrosis resulting in moderate to severe areas of neural foraminal narrowing more prominent on the left. Paraspinal soft tissues are within normal limits. Lung apices are clear. CT/CT cervical spine wo con IMPRESSION: No acute osseous abnormality of the cervical spine. Electronically authenticated by: MICAELA LIPSCOMB Date: 03/12/2024 20:44
--- NOTE | 2024-03-12 19:13 | CT_ITS ---
The [address] [address] Patient Name: BEATRICE CRUZ MRN: [id number] date: 1945 Sex: M Assigned Patient Location: ER Current Patient Location: ER Accession/Order Number: [id number] Exam Date: 03/12/2024 19:19 Report Date: 03/12/2024 20:09 At the request of: KIM HILARIO Procedure: CT head/brain wo con EXAM: CT head/brain wo con HISTORY: fall , head injury COMPARISON: None. TECHNIQUE: Axial CT scans through the head were obtained without IV contrast administration. Dose reduction techniques were achieved by using: automated exposure control and/or adjustment of mA and /or kV according to patient size and/or use of iterative reconstruction technique. FINDINGS: There is no evidence of acute intracranial hemorrhage or abnormal extra-axial fluid collection. No mass effect or midline shift is seen. There is no evidence of large acute territorial infarction. There is no hydrocephalus. Mild enlarged ventricles and sulci, consistent with age appropriate cerebral atrophy. Mild decreased attenuation of the supratentorial white matter, likely represents chronic microvascular ischemia. To the limit of CT, the posterior fossa appears unremarkable. No definite acute fracture is identified. Soft tissues are unremarkable. The visualized orbits show no abnormality. The visualized paranasal sinuses show no air-fluid level. There are mild opacifications of ethmoid air cells. Mastoid air cells are clear. CT/CT head/brain wo con IMPRESSION: No CT evidence of acute intracranial abnormality. Mild chronic microvascular ischemia and involutional changes. Electronically authenticated by: NAGI HAGEN Date: 03/12/2024 20:09
--- NOTE | 2024-03-12 19:17 | ED.FALL1 ---
HPI HPI - Fall General Chief Complaint: Fall Stated Complaint: FELL Time Seen by Provider: 03/12/24 19:05 Source: patient Mode of arrival: walk-in Limitations: no limitations History of Present Illness HPI Narrative: Patient is a 78-year-old male with a history of Parkinson's and diabetes who presents to the ER for evaluation of fall. Patient states he was walking into his bathroom, tripped over a pair of shoes falling backwards landing with his head up against a wall, he denies loss of consciousness. states she knew he fell immediately and contacted EMS to help him up and bring him in for evaluation. Patient only has complaint of very mild neck pain. He denies any headache or loss of consciousness. He denies any chest pain or shortness of breath. Patient is on Plavix and states he did strike the back of his head against the wall but the description of his fall was more seated with his legs half in a tub and half out. Patient has and daughter at the bedside. MD complaint: Reports fall Onset (ago): minute(s) Fall from: Reports standing Fall witnessed: Reports no Place fall occurred: Reports home Loss of consciousness: none Prolonged down time: Reports no Symptoms prior to fall: Reports none (tripped over shoes in walkway) Location of injury: Reports head, neck and other (Small abrasion/ Skin tear left forearm) Related Data Home Medications ?Medication ?Instructions ?Recorded ?Confirmed acetaminophen 500 mg tablet 500 mg PO .8 hours 03/12/24 03/12/24 (Tylenol Extra Strength) amlodipine 10 mg tablet (Norvasc) 10 mg PO DAILY 03/12/24 03/12/24 atorvastatin 20 mg tablet (Lipitor) 20 mg PO DAILY 03/12/24 03/12/24 carbidopa 25 mg-levodopa 100 mg 1 tab PO BID 03/12/24 03/12/24 tablet (Sinemet) clopidogrel 75 mg tablet (Plavix) 75 mg PO DAILY 03/12/24 03/12/24 insulin glargine 100 unit/mL (3 8 unit subcut QPM 03/12/24 03/12/24 mL) subcutaneous pen (Lantus Solostar U-100 Insulin) lisinopril 20 mg tablet 20 mg PO DAILY 03/12/24 03/12/24 metformin 500 mg tablet 500 mg PO DAILY 03/12/24 03/12/24 metoprolol succinate 25 mg 25 mg PO DAILY 03/12/24 03/12/24 tablet,extended release 24 hr tramadol 50 mg tablet 50 mg PO DAILY PRN pain 03/12/24 03/12/24 Allergies Allergy/AdvReac Type Severity Reaction Status Date / Time No Known Drug Allergies Allergy Verified 03/12/24 18:44 Opioid HPI Opioid Management Most Recent Pain and Opioid Data: Last Pain Scale 5 03/12/24 18:57 Last ED Pain Assessment 03/12/24 18:57 Review of Systems ROS Constitutional Denies: fever or chills Eyes Denies: change in vision or blurry vision Ears, nose, mouth, and throat Denies: throat pain or neck pain Cardiovascular Denies: chest pain Respiratory Denies: shortness of breath Gastrointestinal Denies: abdominal pain, nausea or vomiting Integumentary/Breast Denies: rash Neurological Denies: headache, numbness in extremities or weakness in extremities PFSH [facility] Medical History (Updated 03/12/24 @ 20:48 by BERE Erwin) Cellulitis of left lower leg ?L03.116 - Cellulitis of left lower limb (ICD-10) Parkinson disease ?G20.A1 - Parkinson's disease without dyskinesia, without mention of fluctuations (ICD-10) CKD (chronic kidney disease) ?N18.9 - Chronic kidney disease, unspecified (ICD-10) Diabetes type 2, controlled ?E11.9 - Type 2 diabetes mellitus without complications (ICD-10) Hypertension ?I10 - Essential (primary) hypertension (ICD-10) Exam Narrative Exam Narrative: Vital signs and nurses notes reviewed. The patient is not hypoxic. General: The patient appears well and in no apparent distress. Patient is resting comfortably on cart. c-collar placed on arrival Skin: Warm, dry, no pallor noted. The patient has no evidence of rash, petechiae, or purpura noted. , remote bruises to forearm. dorsal surface, small dime size skin tear left forearm non tender Head: Normocephalic, atraumatic, ? small swelling to occiput Neck: Supple, trachea mid-line, no tenderness ( pt reports pain) , no lymphadenopathy. No meningeal signs. No nuchal rigidity. Eye: Pupils are equal, round and reactive to light, EOMI Ears, Nose, Mouth, and Throat: Oral mucosa is moist, TMs are clear bilaterally, no hemotympanum noted. Cardiovascular: Regular Rate and Rhythm Respiratory: Patient is in no distress, no accessory muscle use, lungs are clear to auscultation, no wheezing, rales or rhonchi Back: non-tender to thoracic or lumbar spine, no CVA tenderness Musculoskeletal: normal ROM, no tenderness, no swelling, normal strength 5/5. Normal pulses to radial 2+ bilaterally and 2+ at DP and PT bilaterally and symmetrically. GI: Normal bowel sounds, no tenderness to palpation, no masses appreciated. No rebound, guarding, or rigidity noted. 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 The patient is not ataxic. The patient has normal speech. The patient has normal coordination. . Normal motor and sensory observed. Psychiatric: Cooperative Constitutional Vital Signs, click to edit/add: Last Vital Signs Temp 98 F 03/12/24 18:41 Pulse 78 03/12/24 18:41 Resp 16 03/12/24 18:41 BP 136/67 03/12/24 18:41 Pulse Ox 97 03/12/24 18:54 O2 Del Method Room Air 03/12/24 18:54 Course Vital Signs Vital signs: Vital Signs Temperature 98 F 03/12/24 18:41 Pulse Rate 78 03/12/24 18:41 Respiratory Rate 16 03/12/24 18:41 Blood Pressure 136/67 03/12/24 18:41 Pulse Oximetry 97 03/12/24 18:41 Oxygen Delivery Method Room Air 03/12/24 18:41 Temperature 98 F 03/12/24 18:41 Pulse Rate 78 03/12/24 18:41 Respiratory Rate 16 03/12/24 18:41 Blood Pressure 136/67 03/12/24 18:41 Pulse Oximetry 97 03/12/24 18:54 Oxygen Delivery Method Room Air 03/12/24 18:54 MDM - Fall MDM Narrative Medical decision making narrative: Mechanical fall, patient has Parkinson's, tripped over her shoes that were in the walkway. Recommend CT of the head and neck given complaint of vague neck pain and head injury with his Plavix use. Blood sugar stable per EMS, rechecked here. Patient ambulated here after CT Examination: With no further complaints. The patient is to followup with primary care physician in next 2-3 days or to return to the emergency department should any of the signs or symptoms worsen or new symptoms develop. Patient had questions answered. The patient agrees with the following Diagnosis and Treatment plan and the patient will be discharged home. Lab Data Attestation: I reviewed the patient's lab results. Labs: Lab Results 03/12/24 Range/Units 20:21 POC Glucose 156 H (74-106) mg/dL Imaging Data CT scan - head: Attestation: I personally reviewed and interpreted this imaging study as follows: Radiologist's impression: ITS Impressions Head CT 03/12/24 19:13 IMPRESSION: No CT evidence of acute intracranial abnormality. Mild chronic microvascular ischemia and involutional changes. Electronically authenticated by: Quote Roller Date: 03/12/2024 20:09 Ct C-spine: Radiologist's impression: ITS Impressions Cervical Spine CT 03/12/24 19:13 IMPRESSION: No acute osseous abnormality of the cervical spine. Electronically authenticated by: MICAELA LIPSCOMB Date: 03/12/2024 20:[address] 03/12/24 19:13 IMPRESSION: No CT evidence of acute intracranial abnormality. Mild chronic microvascular ischemia and involutional changes. Electronically authenticated by: [employer] Date: 03/12/2024 20:09 Discharge Plan Discharge Stand Alone Forms: Portal Instructions Chief Complaint: Fall Clinical Impression: Closed head injury, Neck pain Patient Disposition: Home, Self-Care Time of Disposition Decision: 20:48 Condition: Good Prescriptions / Home Meds: No Action acetaminophen [Tylenol Extra Strength] 500 mg tablet 500 mg PO .8 hours amlodipine [Norvasc] 10 mg tablet 10 mg PO DAILY atorvastatin [Lipitor] 20 mg tablet 20 mg PO DAILY carbidopa-levodopa [Sinemet] 25-100 mg tablet 1 tab PO BID clopidogrel [Plavix] 75 mg tablet 75 mg PO DAILY insulin glargine [Lantus Solostar U-100 Insulin] 100 unit/mL (3 mL) insulin pen 8 unit subcut QPM lisinopril 20 mg tablet 20 mg PO DAILY metformin 500 mg tablet 500 mg PO DAILY Rx Instructions: In evening metoprolol succinate 25 mg tablet extended release 24 hr 25 mg PO DAILY Rx Instructions: Toprol XL tramadol 50 mg tablet 50 mg PO DAILY PRN (Reason: pain) Print Language: Czech Instructions: Head Injury (ED) Referrals: Valentino ANDRES [Primary Care Provider] - As soon as possible
[2024-03-12] MEDS: BACITRACIN 0.9 GM PACKET 1 PACKET TOPICAL (19:43)
--- NOTE | 2024-03-12 19:47 | PC.NURSE ---
Skin tear to left arm cleaned, bacitracin applied per order & dry dressing placed. Pt. tolerated well. Pt. denies any needs at this time. Family at bedside.
[2024-03-12 20:22] LABS: Glucometer 156 mg/dL (74-106)
--- NOTE | 2024-03-12 20:56 | PC.NURSE ---
Pt. ambulated in hallway stand by assist. Pt. denies any dizziness. Per family pt. appears to be at baseline with ambulation.
== END 2024-03-12 20:58 | disposition home or self-care (01) ==
PROVIDERS: Emergency Provider Emergency Medicine Emergency Medical Services; PCP Family Medicine
DX: S09.8XXA Other specified injuries of head, initial encounter (principal); M54.2 Cervicalgia; W18.09XA Striking against other object with subsequent fall, initial encounter; Z79.02 Long term (current) use of antithrombotics/antiplatelets; E11.9 Type 2 diabetes mellitus without complications; G20.A1 Parkinson's disease without dyskinesia, without mention of fluctuations
CPT/HCPCS: 36415; 70450; 72125; 82948; 99284

== ENCOUNTER 2024-10-21 08:15 | Outpatient (OUT) | payer MEDICARE, SELFPAY ==
--- NOTE | 2024-10-21 08:27 | PM.CN ---
Consult Note: HPI Data of Consult Patient: known to practice within the last 3 years Requesting Physician: Machelle Jimenez NP Primary Care Provider: Valentino ANDRES Consult Narrative Reason for consult: f/u Narrative: Ramon Mariee a pleasant 79 year old male presents for evaluation and management of chronic low back pain without radiculopathy. Today rating pain 8/10, pain is increased with walking standing ADLS bending lifting and decreased with rest and sleep. longstanding hx of low back pain secondary to lumbar spondylosis. has completed 6 weeks of provider guided HEP without improvement in pain or function. no benefit to heat or ice. cannot take NSAIDs, on plavix. mild relief from baclofen and tylenol, moderate relief from tramadol. Pt and report prior bilateral L4-5 L5-S1 facet RFAs provided pt with significant pain relief, >50% improvement greater than 6 months and they would like to repeat. cc:: CC: Machelle Jimenez NP Review of Systems ROS Status of ROS 10 or more systems reviewed and unremarkable except as noted in history and below Musculoskeletal Reports: back pain PFSH PFSH Medical History Pacemaker ?Z95.0 - Presence of cardiac pacemaker (ICD-10) Low back pain ?M54.50 - Low back pain, unspecified (ICD-10) Diabetes ?E11.9 - Type 2 diabetes mellitus without complications (ICD-10) Acute prostatitis ?N41.0 - Acute prostatitis (ICD-10) High cholesterol ?E78.00 - Pure hypercholesterolemia, unspecified (ICD-10) Hypertension ?I10 - Essential (primary) hypertension (ICD-10) Congestive heart failure ?I50.9 - Heart failure, unspecified (ICD-10) Angina at rest ?I20.8 - Other forms of angina pectoris (ICD-10) Heart attack ?I21.9 - Acute myocardial infarction, unspecified (ICD-10) Surgical History H/O heart artery stent ?Z95.5 - Presence of coronary angioplasty implant and graft (ICD-10) History of arthroplasty of left knee ?Z96.652 - Presence of left artificial knee joint (ICD-10) History of arthroplasty of right knee ?Z96.651 - Presence of right artificial knee joint (ICD-10) History of cholecystectomy ?Z90.49 - Acquired absence of other specified parts of digestive tract (ICD-10) Meds Home Medications and Allergies Home Medications ?Medication ?Instructions ?Recorded ?Confirmed ?Type B complex 11-folic acid 1 mg-C 100 1 tab PO QDAY 03/13/23 06/17/23 History mg-biotin 300 mcg-zinc 50 mg tablet (Dialyvite) acetaminophen 325 mg capsule 500 mg PO QID PRN pain 03/13/23 06/17/23 History (Tylenol) amlodipine 10 mg tablet 10 mg PO QDAY 03/13/23 06/17/23 History ascorbic acid (vitamin C) 1,000 mg 1 g PO QDAY 03/13/23 06/17/23 History tablet (C-1000) aspirin 325 mg tablet,delayed 81 mg PO QDAY 03/13/23 06/17/23 History release atorvastatin 20 mg tablet 20 mg PO QDAY 03/13/23 06/17/23 History clopidogrel 75 mg tablet (Plavix) 75 mg PO QDAY 03/13/23 06/17/23 History coenzyme Q10 75 mg capsule (Ultra 75 mg PO QDAY 03/13/23 06/17/23 History CoQ10) glimepiride 1 mg tablet (Amaryl) 1 mg PO QDAY 03/13/23 06/17/23 History insulin glargine 100 unit/mL (3 10 unit subcut QAM 03/13/23 06/17/23 History mL) subcutaneous pen (Lantus Solostar U-100 Insulin) lisinopril 10 mg tablet 10 mg PO QDAY 03/13/23 06/17/23 History metoprolol succinate 25 mg PO QDAY 03/13/23 06/17/23 History omega 5-ujo-fvc-fish oil 1,000 mg 1 cap PO QDAY 03/13/23 06/17/23 History (120 mg-180 mg) capsule (Fish Oil) oxybutynin chloride 10 mg 10 mg PO QDAY 03/13/23 06/17/23 History tablet,extended release 24 hr vitamin B complex (B 1 tab PO QDAY 03/13/23 06/17/23 History Complex-Vitamin B12 tablet) vitamin E 268 mg (400 unit) capsule 180 mg PO QDAY 06/01/23 09/05/23 History baclofen 10 mg tablet 10 mg PO BID #60 tabs 10/23/23 Rx baclofen 10 mg tablet 10 mg PO BID #60 tabs 10/23/23 Rx tramadol 50 mg tablet 50 mg PO BID 11/20/23 History tramadol 50 mg tablet 50 mg PO BID PRN pain #14 tabs 01/07/24 Rx acetaminophen 500 mg tablet 500 mg PO .8 hours 03/12/24 03/12/24 History (Tylenol Extra Strength) amlodipine 10 mg tablet (Norvasc) 10 mg PO DAILY 03/12/24 03/12/24 History atorvastatin 20 mg tablet (Lipitor) 20 mg PO DAILY 03/12/24 03/12/24 History carbidopa 25 mg-levodopa 100 mg 1 tab PO BID 03/12/24 03/12/24 History tablet (Sinemet) clopidogrel 75 mg tablet (Plavix) 75 mg PO DAILY 03/12/24 03/12/24 History insulin glargine 100 unit/mL (3 8 unit subcut QPM 03/12/24 03/12/24 History mL) subcutaneous pen (Lantus Solostar U-100 Insulin) lisinopril 20 mg tablet 20 mg PO DAILY 03/12/24 03/12/24 History metformin 500 mg tablet 500 mg PO DAILY 03/12/24 03/12/24 History metoprolol succinate 25 mg 25 mg PO DAILY 03/12/24 03/12/24 History tablet,extended release 24 hr tramadol 50 mg tablet 50 mg PO DAILY PRN pain 03/12/24 03/12/24 History Allergies Allergy/AdvReac Type Severity Reaction Status Date / Time No Known Drug Allergies Allergy Verified 03/16/24 07:53 Exam Constitutional Documenting provider has reviewed patient's vital signs: yes Common normals: no apparent distress, oriented x3, healthy appearing, alert and well nourished General appearance: cooperative [facility] Common normals: normocephalic, hearing grossly normal bilaterally and moist oral mucous membranes Head and scalp: normocephalic Eye Common normals: PERRL Pupil: PERRL Neck & C-Spine Common normals: full ROM General: normal visual inspection Chest Common normals: inspection of chest normal Respiratory Common normals: normal respiratory effort, no retractions and no use of accessory muscles Back & Pelvis Lumbar spine/lower back: ROM limited, pain with ROM and straight leg raise negative bilaterally Other: positive facet loading in low back over L4-S1 sensation intact BLE strength 5/5 in BLE Extremity Common normals: normal to inspection and full ROM Neuro Common normals: oriented x3, CN's II-XII intact bilaterally, moves all extremities, no focal motor deficits, no sensory deficits noted and deep tendon reflexes 2+ bilaterally Sensorium/orientation: alert Gait (neuro): antalgic Motor exam: strength 5/5 throughout and no movement abnormalities noted Psych Common normals: mental status grossly normal, thought process normal, cooperative, affect normal, speech normal and activity/motor behavior normal Speech: normal speech Thought process: normal thought process Results Additional Findings Additional findings: I have checked an [place] report on this patient today and there are no aberrancies noted in the prescribing history.?? A drug screen was completed and reviewed within the last year, and if there has not been a drug screen completed we ordered one today to monitor higher risk, state monitored pain medication use. As part of providing excellent, safe, comprehensive care, the following was completed at our patient's visit: 1. A medication reconciliation and review to ensure accurate knowledge of current/active medications, including asking our patients to inform us about any [id number] medications or herbal remedies/nutritional supplements/alternative remedies. 2. A review to specifically ensure our patients have had annual screening for: elevated body mass index (BMI), tobacco use, screening for depression, and screening for unhealthy alcohol use. When screening is concerning, patients are provided with education and the specific recommendation to discuss the concerning health issue and treatment options with their primary care provider. Assessment and Plan Assessment and Plan (1) Lumbar spondylosis: Assessment and Plan: The patient has had over 3 months of moderate to severe low back pain with functional impairment and inadequate response to conservative care including NSAIDS (unless there are contraindication such as concurrent blood thinners), multiple oral or topical pain medications, and home exercise program/physical therapy.? Patient has completed >6 weeks of guided home exercise program and/or formal physical therapy program without relief of their symptoms.? I have reviewed the imaging of the lumbar spine and no red flags were identified.? The imaging reveals radiographic findings consistent with lumbar spondylosis The Oswestry Disability Index was completed, and the patient scored a 44%.? The patient noted the following:?? severe pain, severe pain with standing, walking, travel We discussed the risks and benefits of the procedure with the patient, and we are NOT planning on using sedation as outlined in the guidelines from Medicare unless there is a documented reason that sedation would be strongly recommended.?? ?The procedure will be completed with fluoroscopic guidance.? (2) Muscle spasm: Plan repeat right and left L4-5 L5-S1 facet RFA under fluoroscopy, risks vs benefits reviewed. will request 5 day hold of plavix prior to procedure and clear with cardiology, pt does have a pacemaker continue HEP as tolerated continue f/u with neurology and PCP f/u 1 month after RFAs complete
== END 2024-10-21 08:16 | disposition home or self-care (01) ==
LOC: PM 08:15
PROVIDERS: PCP Family Medicine; Visit Provider Nurse Practitioner
DX: M47.816 Spondylosis without myelopathy or radiculopathy, lumbar region (principal); M62.838 Other muscle spasm
CPT/HCPCS: G0463

== ENCOUNTER 2024-11-30 07:05 | Day surgery (SDC) | payer MEDICARE, SELFPAY ==
--- OUTSIDE RECORDS SUMMARY | 2024-11-30 07:09 | XMS_ITS | CCD ---
Author Organization [facility] Care Team Providers Care Tooth Cutter Pinion Name Role Phone Poli Mercado MD Unavailable Unavailable Ashlee Henry Unavailable Unavailable Danny Thomson Unavailable Unavailable sAhlee Henry Unavailable Unavailable Unavailable Poli Mercado Attending [...] ORLANDO ., DR SADIE Parry Admitting Unavailable RASHIDA, DR Valentino LOPEZ Primary Care Unavailable DIAMANTE CONNORS Consulting Unavailable ORLANDO ., DR SADIE Parry Attending Unavailable ORLANDO ., DR SADIE Parry Admitting Unavailable RASHIDA, DR Valentino LOPEZ Primary Care Unavailable PERRY ., DR SADIE Parry Consulting Unavailable PERRY ., DR SADIE Parry Attending Unavailable PERRY ., DR SADIE Parry Admitting Unavailable RASHIDA, DR Valentino LOPEZ Primary Care Unavailable ARAMIS, DR AMATO Consulting Unavailable DEANNA ONTIVEROS Attending Unavailable DEANNA ONTIVEROS Admitting Unavailable RASHIDA, DR Valentino LOPEZ Primary Care Unavailable ORLANDO ., DR SADIE Parry Attending Unavailable PERRY ., DR SADIE Parry Admitting Unavailable ARAMIS, DR AMATO Consulting Unavailable RASHIDA, DR Valentino LOPEZ Primary Care Unavailable ORLANDO ., DR SADIE Parry Consulting Unavailable ORLANDO ., DR SADIE Parry Attending Unavailable PERRY [...] Attending Unavailable SPAULDING ., DIAMANTE Consulting Unavailable KALEIGHTON, DR Valentino LOPEZ Primary Care Unavailable PERRY [...] KAFTAN, DR Valentino LOPEZ Primary Care Unavailable Lili Gonsales Unavailable MD Lili Gonsales Attending Provider [phone] DO Benedicto Field Primary Care Provider DO Benedicto Field Referring Provider DO Benedicto Field Primary Care Provider MD Lili Gonsales Attending Provider DO Benedicto Field Primary Care Provider MD Manda Lockwood Attending Provider [phone] MD Coleman Gale Attending Provider [phone] DO Benedicto Field Primary Care Provider [phone] MD Tom Conde Attending Provider Valentino FIELD DO Primary Care Unavailable DAVID WU-PhD, BARBY Attending Unavailable DO TOM FIELD Referring Unavailable Valentino FIELD DO Primary Care Unavailable DAVID WU-PhD, BARBY Attending Unavailable GISELLE GANDARA MD Attending Unavailable Valentino FIELD DO Primary Care Unavailable Tom Field DO Primary Care Provider Tom Field DO Unavailable [phone] Nate HENRIQUEZ, Charlene Unavailable Lili Gonsales MD Unavailable [phone] Sunny Vasquez DO Unavailable Truong WU, Eusebio Unavailable [phone] Tom Conde Admitting Unavaalejandro Conde, Tom Bueno Attending Benedicto Dunbar Primary Care Unavailable Tom Conde Admitting Jacques Conde, Tom Bueno Attending Benedicto Dunbar Primary Care Unavailable Robert Lockett Admitting Unavailable Robert Lockett Attending Unavailable Benedicto Field Primary Care Unavailable Tom Conde Admitting Jacques Conde, Tom Bueno Attending Benedicto Dunbar Primary Care Unavailable Asaad, Imad Admitting Unavailable Asaad Imad Attending Unavailable Benedicto Field Primary Care Unavailable Tom Conde Admitting Jacques Conde, Tom Bueno Attending Benedicto Dunbar Primary Care Unavailable Benedicto Field Primary Care Unavailable Roe Carpenter Admitting Unavailable Uday Raman Consulting Unavailable Homar Gonzalez Attending Unavailable Coleman Gale Admitting Unavailable Coleman Gale Attending Unavailable Benedicto Field Primary Care Unavailable TOM FIELD Referring Unavailable SARAH CONNELL Attending Unavailable TOM FIELD Attending Unavailable TOM FIELD Referring Unavailable SARA ORTIZ Attending Unavailable TOM FIELD Attending Unavailable TOM FIELD Referring Unavailable TOM FIELD Attending Unavailable TOM FIELD Referring Unavailable TOM FIELD Attending Unavailable TOM FIELD Referring Unavailable SARAH CONNELL Attending Unavailable FER GARCÍA Attending Unavailable TOM FIELD Attending Unavailable DAJA GUERRERO Attending Unavailable TOM IFELD Attending Unavailable FER GARCÍA Attending Unavailable TOM FIELD Attending Unavailable SARAH CONNELL Attending Unavailable SUNNY VASQUEZ Attending Unavailable LILI GONSALES Referring Unavailable AUTUMN VALENCIA Attending Unavailable SUNNY VASQUEZ Attending Unavailable SARAH CONNELL Attending Unavailable SUNNY VASQUEZ Attending Unavailable TOM FIELD Attending Unavailable Allergies Allergy Classification Reported Allergen(s) Allergy Type Date of Onset Reaction(s) Facility (20 sources) Lactose (non-medical use) Propensity to adverse reactions 4 [facility] Healthcare Work Phone: (1 source) Lactose Drug Allergy 4 [facility] Repository Medications Current Medications Medication Drug Class(es) Dates Sig (Normalized) Sig (Original) amLODIPine 10 mg oral tablet (20 sources) Dihydropyridine Calcium Channel Mckenna Start: 08-25-2019 take 10 mg by mouth once daily Amlodipine Active 10 MG PO Daily June 15, 2024 12:00am ascorbic acid 1000 mg oral tablet (1 source) Vitamin C take 1 tablet by mouth once daily Ascorbic Acid 1000 MG 1 tablet Orally Once a day Active aspirin 81 mg delayed release oral tablet (20 sources) Platelet Aggregation Inhibitor, Nonsteroidal Anti-inflammatory Drug Start: 06-04-2020 End: 06-18-2025 take 1 tablet by mouth once daily aspirin 81 MG EC tablet Indications: 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, unspecified vessel or lesion type, unspecified whether [place] or transplanted heart ([facility]) , Type 2 diabetes mellitus without complication, with long-term current use of insulin ([facility]) Take 1 tablet (81 mg) by mouth Daily 30 tablet 06/18/2024 06/18/2025 Active take 1 tablet by mouth once jean-pierre y Aspirin 81 81 MG 1 tablet Orally Once a day Active atorvastatin 20 mg oral tablet (20 sources) HMG-CoA Reductase Inhibitor Start: 08-20-2024 take 1 tablet by mouth once daily atorvastatin (Lipitor) 20 MG tablet Indications: Hypertensive heart disease with heart failure ([facility]) TAKE 1 TABLET BY MOUTH EVERYDAY AT THE SAME TIME 90 tablet 1 08/20/2024 Active Start: 04-12-2019 take 1 tablet by libra once daily atorvastatin (Lipitor) 20 MG tablet Indications: Hypertensive heart disease with heart failure (CMS/HCC) Take 1 tablet (20 mg) by mouth 1 (one) time each day at the same time 90 tablet 1 02/27/2024 Active take 1 tablet by libra every twenty-four hours Atorvastatin Calcium 10 MG 1 tablet Orally Once a day Active carbidopa 25 mg / levodopa 100 mg oral tablet (20 sources) Aromatic Amino Acid Decarboxylation Inhibitor, Aromatic Amino Acid Start: 09-17-2024 carbidopa-levodopa (Sinemet) 25-100 MG tablet Indications: 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) TAKE 2 TABLET BY MOUTH AT 8AM, 1 tablet at NOON, 2 tablets at 3PM, AND 1 tablet at 6PM 09/17/2024 Active Start: 08-10-2024 carbidopa-levo dopa (Sinemet) 25-100 MG tablet Indications: 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) TAKE 1 TABLET BY MOUTH AT 8AM, NOON, 3PM AND 6PM 360 tablet 08/10/2024 Active Start: 06-15-2024 take 1 tablet by libra th four times daily Carbidopa-Levodopa (Sinemet) 25-100 mg tablet Active 1 TAB PO Four times daily June 15, 2024 11:17am Start: 05-11-2024 carbidopa-levo dopa (Sinemet) 25-100 MG tablet Indications: 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) TAKE 1 TABLET BY MOUTH AT 8AM, NOON, 3PM, AND 6PM 360 tablet 05/11/2024 Active Start: 02-26-2024 End: 06-15-2024 take 1 tablet by mouth once at mealtime Carbidopa-Levodopa (Sinemet) 25-100 mg Tablet Discontinued 1 TAB PO 3x/Day with meals 270 90 February 26, 2024 12:00am June 15, 2024 11:19am clopidogrel 75 mg oral tablet (20 sources) [id number] Platelet Inhibitor Start: 05-12-2012 End: 06-18-2024 take 1 tablet by mouth in the morning clopidogrel (Plavix) 75 MG tablet Indications: Hypertensive heart disease with heart failure ([facility]) Take 1 tablet (75 mg) by mouth in the morning. 90 tablet 1 02/27/2024 06/18/2024 Discontinued (Therapy completed) Continuous Glucose Fund Controller (FreeStyle [place]) device (5 sources) Start: 02-02-2024 End: 06-15-2024 Continuous Glucose Fund Controller (FreeStyle [place]) device Indications: Type 2 diabetes mellitus without complication, with long-term current use of insulin ([facility]) Dispense 1 reader device for every day use to check blood sugars E11.9 1 each 02/02/2024 06/15/2024 Discontinued (Therapy completed) Start: 02-02-2024 Continuous Glu cose Fund Controller (FreeStyle [place]) device Indications: Type 2 diabetes mellitus without complication, with long-term current use of insulin ([facility]) Dispense 1 reader device for every day use to check blood sugars E11.9 1 each 02/02/2024 Active Continuous Glucose Sensor (FreeStyle Lillian 2 Sensor) misc (20 sources) Start: 06-30-2024 Continuous Glu cose Sensor (FreeStyle Lillian 2 Sensor) misc Indications: Type 2 diabetes mellitus with hyperglycemia, without long-term current use of insulin ([facility]) , Type 2 diabetes mellitus with stage 3b chronic kidney disease, without long-term current use of insulin ([facility]) ([facility]) 1 Units every 14 (fourteen) days 2 each 06/30/2024 Active Start: 04-19-2024 Continuous Glu cose Sensor (FreeStyle Lillian 2 Sensor) misc Indications: Type 2 diabetes mellitus with hyperglycemia, without long-term current use of insulin ([facility]) 1 Units every 14 (fourteen) days 1 each 04/19/2024 Active Start: 02-02-2024 Continuous Glu cose Sensor (FreeStyle Lillian 2 Sensor) misc Indications: Type 2 diabetes mellitus with hyperglycemia, without long-term current use of insulin ([facility]) , Type 2 diabetes mellitus with stage 3b chronic kidney disease, without long-term current use of insulin (HCC) ([facility]) 1 Units every 14 (fourteen) days 2 each 02/02/2024 Active CPAP Machine (1 source) CPAP Machine Act rosalva docosahexaenoic acid 120 mg / eicosapentaenoic acid 180 mg oral capsule (20 sources) Start: 06-15-20 24 omega-3, EPA+DHA, (Super Maple-3) 1000 MG capsule 1 capsule 06/15/2024 Active Fish Oil-Cholecalciferol (FISH OIL + D3 PO) (2 sources) End: 06-07-20 24 Fish Oil-Cholecalciferol (FISH OIL + D3 PO) Take by mouth 06/07/2024 Discontinued Fish Oils (1 source) take 1 capsule by mouth once daily Fish Oil 1000 MG 1 capsule Orally Once a day Active furosemide 40 mg oral tablet (1 source) Loop Diuretic take 1 tablet by mouth every twenty-four hours Furosemide 40 MG 1 tablet Orally Once a day Active 3 ml insulin glargine 100 unt/ml pen injector (20 sources) Insulin Analog Start: 03-24-20 24 inject 10 [IU] by subcutaneous injection once daily at bedtime insulin glargine (Lantus SoloStar) 100 UNIT/ML pen Indications: Type 2 diabetes mellitus without complication, with long-term current use of insulin (CMS/HCC) INJECT 10 UNITS UNDER THE SKIN EVERY DAY AT BEDTIME 15 mL 3 03/24/2024 Active Start: 02-24-2024 End: 02-26-2024 inject 100 [IU] by subcutaneous injection at bedtime Insulin Glargine (Lantus Solostar U-100 Insulin) 100 unit/mL (3 mL) insulin pen Active 6 UNIT SUBCUT Bedtime 3 February 26, 2024 5:19pm FreeTextSi to 12 units as directed Subcutaneous; Note: Source Status: Taking; Provider: Tate Jenkins ( ) Start: 11-12-2012 Lantus SoloSta r 100 UNIT/ML Subcutaneous Solution Pen-injector INJECT 20 UNITS SUBCUTANEOUSLY EVERY DAY OR AMOUNT DIRECTED Quantity: 1 Refills: 1 Ordered: 10-May-2022 Poli Mercado MD Start : 12-Nov-2012 Active Lantus SoloStar 100 UNIT/ML 8 units as directed Subcutaneous Active lisinopril 5 mg oral tablet (20 sources) Angiotensin Converting Enzyme Inhibitor Start: 04-07-2024 take 1 tablet by mouth once daily lisinopril 5 MG tablet Indications: Essential (primary) hypertension (CMS/HCC) Take 1 tablet (5 mg) by mouth Daily 30 tablet 11 04/07/2024 Active Start: 05-16-2021 Lisinopril 10 MG Oral Tablet Quantity: 90 Refills: 0 Ordered: 12-Aug-2021 DO Start : 16-May-2021 Active Start: 06-04-2020 End: 06-15-2024 take 20 mg by mouth once daily Lisinopril Discontinued 20 MG PO Daily June 04, 2020 12:00am June 15, 2024 11:18am 24 hr metFORMIN hydrochloride 500 mg extended release oral tablet (20 sources) Biguanide Start: 10-04-2024 take 2 tablets by mouth every twenty-four hours at bedtime metFORMIN XR (Glucophage-XR) 500 MG 24 hr tablet Indications: Type 2 diabetes mellitus without complication, with long-term current use of insulin (CMS/HCC) TAKE 2 TABLETS BY MOUTH IN THE MORNING AND BEFORE BEDTIME*DO NOT CRUSH,CHEW,OR SPLIT* 180 tablet 1 10/04/2024 Active Start: 06-18-2024 take 2 tablets by mo [facility] every twenty-four hours in the morning metFORMIN XR (Glucophage-XR) 500 MG 24 hr tablet Indications: Type 2 diabetes mellitus without complication, with long-term current use of insulin (CMS/HCC) Take 2 tablets (1,000 mg) by mouth in the morning and 2 tablets (1,000 mg) before bedtime. Do not crush, chew, or split.. 180 tablet 1 06/18/2024 Active Start: 06-18-2024 take 2 tablets by mo ut every twenty-four hours in the morning metFORMIN XR (Glucophage-XR) 500 MG 24 hr tablet Indications: Type 2 diabetes mellitus without complication, with long-term current use of insulin (CMS/HCC) Take 2 tablets (1,000 mg) by mouth in the morning and 2 tablets (1,000 mg) before bedtime. Do not crush, chew, or split.. 180 tablet 1 06/18/2024 Active Start: 06-15-2024 take 500 mg by mouth once jean-pierre y Metformin Active 500 MG PO Daily June 15, 2024 11:17am Start: 06-01-2024 End: 06-15-2024 Metformin Discontinued MG PO June 01, 2024 12:00am June 15, 2024 11:19am Start: 04-19-2024 End: 06-18-2024 take 2 tablets by mouth every twenty-four hours in the morning metFORMIN XR (Glucophage-XR) 500 MG 24 hr tablet Indications: Type 2 diabetes mellitus without complication, with long-term current use of insulin (CMS/HCC) Take 2 tablets (1,000 mg) by mouth in the morning and 2 tablets (1,000 mg) before bedtime. Do not crush, chew, or split.. 180 tablet 1 06/18/2024 Active 24 hr metoprolol succinate 25 mg extended release oral tablet (20 sources) beta-Adrenergic Mckenna Start: 07-26-2022 take 1 tablet by mouth once daily metoprolol succinate XL (Toprol-XL) 25 MG 24 hr tablet Take 1 tablet by mouth 1 (one) time each day. 07/26/2022 Active Start: 03-27-2021 take 1 tablet by libra th every twenty-four hours Metoprolol Succinate ER 25 MG Oral Tablet Extended Release 24 Hour Quantity: 90 Refills: 0 Ordered: 22-Jun-2021 DO Start : 27-Mar-2021 Active 24 hr mirabegron 50 mg extended release oral tablet (20 sources) beta3-Adrenergic Agonist Start: 03-18-2024 take 1 tablet by mouth once daily, then take 1 tablet by mouth every twenty-four hours mirabegron ER (Myrbetriq) 50 MG 24 hr tablet Take 50 mg by mouth 1 (one) time each day at the same time 03/18/2024 Active Misc. Devices (Rollator Ultra-Light) misc (20 sources) Start: 06-07-2024 End: 09-29-2024 Misc. Devices (Rollator Ultra-Light) misc Indications: 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) 1 rollator with seat for every day use 1 each 06/07/2024 09/29/2024 Discontinued Start: 06-07-2024 Misc. Devices (Rollator Ultra-Light) misc Indications: 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) 1 rollator with seat for every day use 1 each 06/07/2024 Active Multiple Vitamins-Minerals (CENTRUM SILVER 50+MEN PO) (2 sources) End: 06-07-2024 Multiple Vitamins-Minerals (CENTRUM SILVER 50+MEN PO) Take by mouth 06/07/2024 Discontinued Maple 6-Icw-Zkj-Fish Oil (Fish Oil) 1,000 mg (120 mg-180 mg) capsule (4 sources) Start: 06-15-2024 take 1 capsule by mouth once daily Maple 8-Umg-Cxw-Fish Oil (Fish Oil) 1,000 mg (120 mg-180 mg) capsule Active 1 CAP PO Daily June 15, 2024 12:00am terbinafine 250 mg oral tablet (20 sources) Allylamine Antifungal Start: 04-19-2024 End: 08-26-2024 take 1 tablet by mouth once daily terbinafine (LamISIL) 250 MG tablet Indications: Onychomycosis TAKE 1 TABLET BY MOUTH EVERY DAY 90 tablet 08/26/2024 Active traMADol hydrochloride 50 mg oral tablet (20 sources) Opioid Agonist Start: 08-26-2024 End: 10-21-2024 take 1 tablet by mouth every eight hours for pain traMADol (Ultram) 50 MG tablet Indications: Myalgia Take 1 tablet (50 mg) by mouth every 8 (eight) hours if needed for severe pain 30 tablet 10/21/2024 Active Start: 07-19-2024 End: 08-18-2024 take 1 tablet by mouth once daily as needed for pain traMADol (Ultram) 50 MG tablet Indications: Myalgia Take 1 tablet (50 mg) by mouth Daily as needed for severe pain 30 tablet 07/19/2024 08/18/2024 Active Start: 06-07-2024 End: 07-19-2024 take 1 tablet by mouth every eight hours for pain traMADol (Ultram) 50 MG tablet Indications: Myalgia Take 1 tablet (50 mg) by mouth every 8 (eight) hours if needed for severe pain 30 tablet 06/07/2024 07/19/2024 Discontinued Start: 02-24-2024 take 1 tablet by libra once daily as needed Tramadol Active 50 MG PO Daily February 24, 2024 12:00am FreeTextSi tablet as needed Orally Once a day; Note: Source Status: Taking; Provider: Tate Jenkins ( ) Start: 03-29-2021 traMADol HCl - 50 MG Oral Tablet Quantity: 120 Refills: 0 Ordered: 29-Mar-2021 DO Start : 29-Mar-2021 Active take 1 tablet by libra every twenty-four hours traMADol HCl 50 MG 1 tablet as needed Orally Once a day Active turmeric extract 450 mg oral capsule (1 source) Turmeric 450 MG as directed Orally Active ubidecarenone 200 mg oral ca psule (1 source) CoQ10 200 MG as directed [...] directed Refills: 0 Start : 15-Aug-2016 Active take 2 tablets by mo [facility] once daily acetaminophen (Tylenol) 500 MG tablet Indications: Pain Take 1,000 mg by mouth Daily Active Tylenol Active azithromycin 250 mg oral tablet (1 [...] 28-Mar-2022 DO Start : 28-Mar-2022 Complete doxycycline monohydrate 100 mg oral tablet (16 sources) Tetracycline-class Drug Start: 02-24-2024 End: 02-26-2024 take 100 mg by mouth twice daily Doxycycline Monohydrate Discontinued 100 MG PO Twice daily February 24, 2024 12:00am February 26, 2024 1:58pm started on 02/18/24 x7 days. Start: 10-17-2021 Doxycycline Hy clate 100 MG Oral Capsule Quantity: 10 Refills: 0 Ordered: 18-Oct-2021 DO Start : 17-Oct-2021 Complete Start: 06-04-2020 End: 02-06-2024 take 100 mg by mouth twice daily Doxycycline Hyclate Discontinued 100 MG PO Twice daily June 04, 2020 12:00am February 06, 2024 2:19pm erythromycin 0.005 mg/mg ophthalmic ointment (4 sources) Macrolide, Macrolide Antimicrobial Start: 09-15-2024 End: 10-25-2024 erythromycin (Romycin) 5 MG/GM ophthalmic ointment Apply 1 application to both eyes in the morning and 1 application in the evening and 1 application before bedtime. 09/15/2024 10/25/2024 Discontinued Start: 04-13-2024 End: 06-07-2024 erythromycin (Romycin) 5 MG/ GM ophthalmic ointment APPLY 1/4 INCH RIBBON TO BOTH EYES AT BEDTIME FOR 7 DAYS 04/13/2024 06/07/2024 Discontinued famotidine 20 mg oral tablet (18 sources) [...] Poli Mercado MD Start : 19-Aug-2017 Active glimepiride 1 mg oral tablet (20 sources) Sulfonylurea Start: 04-07-2019 End: 02-26-2024 take 1 mg by mouth once daily Glimepiride Discontinued 1 MG PO Daily June 04, 2020 12:00am February 26, 2024 1:58pm ammonium lactate 120 mg/ml topical lotion (4 [...] Start : 22-Aug-2017 Active 225 GM Bottle levothyroxine sodium 0.025 mg oral tablet (9 sources) l-Thyroxine Start: 06-04-2020 End: 02-06-2024 Levothyroxine Discontinued TABLET June 04, 2020 12:00am February 06, 2024 2:19pm meloxicam 15 mg oral tablet (3 sources) Nonsteroidal Anti-inflammatory Drug Start: 08-11-2020 Meloxicam 15 MG Oral Tablet Quantity: 30 Refills: 0 Ordered: 20-Feb-2021 DO Start : 11-Aug-2020 Active oseltamivir 30 mg oral capsule (1 source) Neuraminidase Inhibitor Start: 03-18-2022 take 1 capsule by mouth twice daily Oseltamivir Phosphate 30 MG Oral Capsule TAKE 1 CAPSULE BY MOUTH TWICE DAILY FOR 5 DAYS Quantity: 10 Refills: 0 Ordered: 18-Mar-2022 DO Start : 18-Mar-2022 Complete 24 hr oxybutynin chloride 10 mg extended release oral tablet (20 sources) Cholinergic Muscarinic Antagonist Start: 02-24-2024 End: 02-26-2024 take 10 mg by mouth once daily Oxybutynin Chloride Discontinued 10 MG PO Daily February 24, 2024 12:00am February 26, 2024 1:58pm Start: 10-19-2020 take 1 tablet by libra th every twenty-four hours Oxybutynin Chloride ER 10 [...] Ordered: 24-Jan-2022 DO Start : 24-Jan-2022 Complete Problems Active Problems Problem Classification Problem Date Documented Date Episodic/Chronic Acute myocardial infarction (20 sources) Myocardial infarction; Translations: [Acute myocardial infarction, unspecified] Onset: 08-07-2024 06-28-2024 Chronic Cardiac dysrhythmias (20 sources) Sick sinus syndrome; Translations: [Sick sinus syndrome] Onset: 05-15-2023 06-15-2024 Chronic Chronic kidney disease (20 sources) Chronic kidney disease stage 3A ; Translations: [Stage 3a chronic kidney disease (HCC)] Onset: 05-15-2023 05-15-2023 Chronic Complications of surgical procedures or medical care (19 sources) Complication of ventilation therapy; Translations: [Complication of inhalation therapy, initial encounter] Onset: 08-07-2024 08-07-2024 Episodic Conduction disorders (20 sources) H/O: cardiac pacemaker in situ; Translations: [Presence of cardiac pacemaker] Onset: 06-18-2024 06-15-2024 Chronic Congestive heart failure; nonhypertensive (20 sources) Chronic systolic heart failure; Translations: [Chronic systolic (congestive) heart failure] Onset: 05-15-2023 Chronic Coronary atherosclerosis and other heart disease (20 sources) Coronary arteriosclerosis; Translations: [Coronary atherosclerosis of unspecified type of vessel, [place] or graft] Onset: 03-09-2015 06-15-2024 Chronic Delirium, dementia, and amnestic and other cognitive disorders (7 sources) Dementia; Translations: [Unspecified dementia without behavioral disturbance] Onset: 02-25-2024 03-05-2024 Chronic Diabetes mellitus with complications (20 sources) Disorder of kidney due to diabetes mellitus; Translations: [Type 2 diabetes mellitus with diabetic nephropathy] Onset: 05-15-2023 05-15-2023 Chronic Diabetes mellitus without complication (20 sources) Secondary diabetes mellitus; Translations: [Secondary diabetes mellitus without mention of complication, not stated as uncontrolled, or unspecified] Onset: 10-03-2022 06-28-2024 Chronic Disorders of lipid metabolism (20 sources) Hyperlipidemia; Translations: [Other and unspecified hyperlipidemia] Onset: 05-15-2023 05-15-2023 Chronic Essential hypertension (20 sources) Hypertensive disorder; Translations: [Unspecified essential hypertension] Onset: 03-09-2015 Chronic Heart valve disorders (1 source) Cardiac murmur, unspecified; Translations: [Cardiac murmur, unspecified] Onset: 10-04-2024 Episodic Hyperplasia of prostate (20 sources) Benign prostatic hyperplasia; Translations: [Benign prostatic hyperplasia without lower urinary tract symptoms] Onset: 05-15-2023 05-15-2023 Chronic Hypertension with complications and secondary hypertension (2 sources) Hypertensive heart failure; Translations: [Hypertensive heart disease with heart failure] 10-24-2024 Chronic Joint disorders and dislocations; trauma-related (20 sources) Tear of medial meniscus of knee; Translations: [Tear of medial cartilage or meniscus of knee, current] Episodic Mycoses (3 sources) Onychomycosis; Translations: [Tinea unguium] 08-26-2024 Episodic Nutritional deficiencies (20 sources) Vitamin D deficiency; Translations: [Unspecified vitamin D deficiency] Onset: 02-01-2024 02-01-2024 Chronic Osteoarthritis (20 sources) Degenerative joint disease involving multiple joints; Translations: [Polyosteoarthritis, unspecified] Onset: 02-01-2024 02-01-2024 Chronic Other circulatory disease (2 sources) Raynaud's disease; Translations: [Raynaud's syndrome without gangrene] 10-25-2024 Chronic Other circulatory disease (6 sources) Abnormal peripheral pulse; Translations: [Other specified symptoms and signs involving the circulatory and respiratory systems] 06-01-2024 Episodic Other circulatory disease (6 sources) Other specified symptoms and signs involving the circulatory and respiratory systems; Translations: [Other symptoms involving cardiovascular system] 06-01-2024 Episodic Other connective tissue disease (20 sources) Pain in lower limb; Translations: [Pain in limb] Episodic Other connective tissue disease (20 sources) H/O: osteoarthritis; Translations: [Personal history of arthritis] Episodic Other connective tissue disease (5 sources) Other muscle spasm; Translations: [OTHER MUSCLE SPASM] Onset: 11-12-2022 Episodic Other connective tissue disease (5 sources) Muscle pain; Translations: [Myalgia, unspecified site] 07-18-2024 Episodic Other connective tissue disease (1 source) Pain in both feet; Translations: [Pain in right foot] 09-29-2024 Episodic Other diseases of veins and lymphatics (20 sources) Vascular insufficiency; Translations: [Venous (peripheral) insufficiency, unspecified] Episodic Other eye disorders (1 source) Myogenic ptosis of unspecified eyelid; Translations: [Myogenic ptosis of unspecified eyelid] Onset: 09-16-2024 Episodic Other lower respiratory disease (20 sources) Snoring; Translations: [Other respiratory abnormalities] Episodic Other lower respiratory disease (1 source) Shortness of breath; Translations: [Shortness of breath] Onset: 10-04-2024 Episodic Other male genital disorders (20 sources) [...] other endocrine, metabolic, and immunity disorders] Episodic Parkinson`s disease (1 source) Parkinson`s disease; Translations: [Parkinson's disease without dyskinesia, without mention of fluctuations] Onset: 02-25-2024 Peripheral and visceral atherosclerosis (20 sources) Peripheral vascular disease, unspecified; Translations: [PAD (peripheral artery disease)] Onset: 05-15-2023 06-01-2024 Chronic Residual codes; unclassified (20 sources) Obstructive sleep apnea syndrome; Translations: [Obstructive sleep apnea (adult)(pediatric)] Onset: 05-15-2023 06-28-2024 Chronic Residual codes; unclassified (1 source) Sleep apnea, unspecified; Translations: [Sleep apnea] Chronic Residual codes; unclassified (2 sources) Obstructive sleep apnea (adult) (pediatric); Translations: [Obstructive sleep apnea (adult)(pediatric)] Chronic Residual codes; unclassified (1 source) Family history of malignant neoplasm of digestive organs; Translations: [Family history of colon cancer] Episodic Residual codes; unclassified (5 sources) Other specified health status; Translations: [Other specified conditions influencing health status] Episodic Residual codes; unclassified (6 sources) Altered mental status; Translations: [Altered mental status, unspecified] 03-05-2024 Episodic Skin and subcutaneous tissue infections (9 sources) Cellulitis; Translations: [Cellulitis, unspecified] 06-04-2020 Episodic Spondylosis; intervertebral disc disorders; other back problems (20 sources) Spondylosis without myelopathy or radiculopathy, lumbosacral region; Translations: [Other spondylosis, sacral and sacrococcygeal region] Onset: 02-28-2022 Chronic Spondylosis; intervertebral disc disorders; other back problems (18 sources) Spinal stenosis, site unspecified; Translations: [Radiculopathy, lumbar region] Onset: 05-23-2022 Episodic Thyroid disorders (20 sources) Hypothyroidism; Translations: [Hypothyroidism, unspecified] Onset: 05-15-2023 05-15-2023 Chronic Unclassified (14 sources) Parkinson's disease; Translations: [Parkinson's disease] 03-05-2024 Chronic Unclassified (20 sources) Parkinsonism; Translations: [Parkinsonism] Onset: 03-01-2024 03-01-2024 Chronic Unclassified (4 sources) LOW BACK PAIN, UNSPECIFIED; Translations: [LOW BACK PAIN, UNSPECIFIED] Onset: 03-06-2022 Unclassified (2 sources) Complication of ventilation therapy; Translations: [Intolerance of noninvasive positive pressure therapy] 06-28-2024 Past or Other Problems Problem Classification Problem Date Documented Da te Episodic/Chronic Coronary atherosclerosis and other heart disease (20 sources) Patient post percutaneous transluminal coronary angioplasty; Translations: [Coronary angioplasty status] Onset: 03-09-2015 06-15-2024 Episodic Fluid and electrolyte disorders (7 sources) Dehydration; Translations: [Dehydration] Onset: 02-25-2024 03-05-2024 Episodic Mood disorders (20 sources) Mood disorders Onset: 11-03-2023 11-03-2023 Other connective tissue disease (1 source) Muscle wasting and atrophy, not elsewhere classified, unspecified site; Translations: [MUSCLE WASTING ATROPHY NEC UNS SITE] Onset: 05-27-2022 Episodic Other screening for suspected conditions (not mental disorders or infectious disease) (20 sources) Patient encounter status; Translations: [Screening for malignant neoplasms of prostate] Onset: 02-09-2024 03-05-2024 Episodic Residual codes; unclassified (1 source) Altered mental status, unspecified; Translations: [Altered mental status, unspecified] Onset: 02-25-2024 Episodic Unclassified (1 source) LOW BACK PAIN, UNSPECIFIED; Translations: [LOW BACK PAIN, UNSPECIFIED] Onset: 02-06-2023 NEGATED: Highlighted row has not occurred!Residual codes; unclassified (6 sources) Disease Episodic Results Test Name Value Interpretation Reference Range Facility CT LUNG SCREENING LOW DOSEon 11-22-2024 CT LUNG SCREENING LOW DOSE This is a summary report. The complete report is available in the patient's medical record. If you cannot access the medical record, please contact the sending organization for a detailed fax or copy. HISTORY: Smoking history. TECHNIQUE: Spiral low dose CT acquisition of the chest from the thoracic inlet to the upper abdomen without contrast for lung screening. All CT scans at this facility use dose modulation, iterative reconstruction, and/or weight based dosing when appropriate to reduce radiation dose to as low as reasonably achievable. COMPARISON: 11/18/2023. RESULT: Lung parenchyma and pleura: Central airways grossly patent. No consolidation. No pleural effusion. No pneumothorax. Dependent atelectasis. Multiple calcified granulomas, similar to prior. No suspicious lung nodules. Thoracic inlet, heart, and mediastinum: Visualized thyroid unremarkable. Calcified lymph nodes, similar to prior. Mild thoracic aorta atherosclerotic calcifications without aneurysm. Normal pulmonary size artery. Stable heart size. Coronary calcifications and/or stents. No pericardial effusion. Esophagus unremarkable. Bones and soft tissues: No acute osseous findings. No destructive osseous lesions. Degenerative changes. DISH. Underlying decreased bone mineral density. Left-sided pacemaker, grossly unchanged. Upper abdomen: No acute abnormality in the imaged upper abdomen. IMPRESSION: Lung-RADS: LUNGRADS 2 - Benign Follow-Up Recommendation: LDCT 1 Year ELECTRONICALLY SIGNED BY: Roe Garcia MD Normal Not Available [facility] echo transthoracicon [facility] echo transthoracic [facility] [place] [address] [place] [id number] Echocardiogram Signed Patient: Ramon Cruz MR#: [id number] : 1945 Acct:[id number] Age/Sex: 79 / M ADM Date: 10/04/24 Loc: Room: Type: [facility] Attending Dr: Tom Conde MD Ordering Provider: Tom Conde MD Date of Service: 10/04/24 [facility] echo transthoracic: R06.02 - Shortness of breath Copies to: MD Darlene Baca MD, [facility] Weight: 190 lb Performed By: BRENDA Batista BSA: 2.0 m2 BP: 152/73 mmHg HR: 54 Reason For Study: R06.02 - Shortness of breath History: CT, DM, former smoker, pacemaker, family history of CAD Interpretation Summary Mild concentric left ventricular hypertrophy. Left ventricular systolic function is normal. Ejection Fraction = 60-65%. A variety of Doppler measurements indicate impaired left ventricular relaxation, which is associated with grade I/IV or mild diastolic dysfunction. The left atrium appears mildly dilated. There is trace tricuspid regurgitation. The right ventricular systolic pressure is 40 mmHg. Right ventricular systolic pressure is consistent with mild pulmonary hypertension. Pacemaker wire seen There is no prior echocardiogram noted for this patient. Procedure/Quality: A two-dimensional transthoracic echocardiogram with color flow and Doppler was performed. The study was technically good in quality. There is no prior echocardiogram noted for this patient. Left Ventricle: Mild concentric left ventricular hypertrophy. Left ventricular systolic function is normal. Ejection Fraction = 60-65%. A variety of Doppler measurements indicate impaired left ventricular relaxation, which is associated with grade I/IV or mild diastolic dysfunction. Left Atrium: The left atrium appears mildly dilated. The atrial septum appears normal. Right Atrium: The right atrium appears normal in size. Right Ventricle: The right ventricular size, thickness and function are normal. Aortic Valve: The aortic valve is normal in structure and function. Mitral Valve: The mitral valve is mildly sclerotic. Tricuspid Valve: The tricuspid valve is normal. There is trace tricuspid regurgitation. The right ventricular systolic pressure is 40 mmHg. Right ventricular systolic pressure is consistent with mild pulmonary hypertension. Pulmonic Valve: The pulmonic valve is not well seen, but is grossly normal. Arteries: The aortic root is normal size. Pericardium/Pleura: No pericardial effusion seen. There is no pleural effusion. IVC/Hepatic Veins: The IVC is normal in size with an inspiratory collapse of greater then 50%, suggesting normal right atrial pressure. Miscellaneous: No thrombus, vegetation or mass is seen. Pacemaker wire seen. Measurements with Normals IVSd: 1.5 cm (0.7-1.1 cm)LVIDd: 5.1 cm (3.7-5.4 cm) LVPWd: 1.4 cm (0.7-1.1 cm)LVIDs: 4.4 cm (2.3-3.6 cm) LA dimension: 4.6 cm (2.3-4.0 cm)Ao root diam: 3.3 cm(2.0-3.6 cm) asc Aorta Diam: 3.3 cm(2.1-3.4cm) Doppler with Normals RVSP(TR): 40.7 mmHg (18-35mmHg) LV V1 max: 109.0 cm/sec (0.7-1.7m/s)MV E max kj: 71.6 cm/sec(0.8-1.3m/s) MV A max kj: 130.4 cm/sec(0.0-0.0m/s) MV E/A: 0.55 (<1.5) MMode/2D Measurements Calculations RVDd: 3.4 cm FS: 13.9 % Ao root area: LVOT diam: 2.0 cm TAPSE: 2.6 cm EDV(Teich): 8.7 cm2 LVOT area: 3.1 cm2 RV S Kj: 123.9 ml 11.3 cm/sec ESV(Teich): 87.2 ml EF(Teich): 29.6 % __ LVLd ap4: 8.3 cm SV(MOD-sp4): LAV(MOD-sp4): LA A2 area: 19.3 cm2 EDV(MOD-sp4): 45.5 ml 53.3 ml 73.4 ml LAV(MOD-sp2): LA A4 area: 21.3 cm2 LVLs ap4: 7.8 cm 45.1 ml LA length (vol): ESV(MOD-sp4): 6.7 cm 27.9 ml LA vol: 52.5 ml EF(MOD-sp4): 62.0 % LA vol index: 26.5 ml/m2 Doppler Measurements Calculations MV dec time: MV V2 max: E/E' lat: 8.2 MV dec slope: 0.30 sec 127.3 cm/sec E/E' med: 8.5 MV max P.5 mmHg 237.9 cm/sec2 MV V2 mean: 65.3 cm/sec MV mean P.0 mmHg MV V2 VTI: 34.3 cm MVA(VTI): 2.4 cm2 __ Ao V2 max: LV V1 max PG: TV max PG: TR max kj: 178.1 cm/sec 4.7 mmHg 36.0 mmHg 298.6 cm/sec Ao max PG: LV V1 mean PG: TR max P.7 mmHg 12.7 mmHg 2.4 mmHg RAP systole: 5.0 mmHg Ao mean PG: LV V1 mean: 8.3 mmHg 71.8 cm/sec Ao V2 mean: LV V1 VTI: 26.9 cm 138.4 cm/sec Ao V2 VTI: 46.4 cm SHON(I,D): 1.8 cm2 SHON(V,D): 1.9 cm2 Measurements from QLAB CI (HM): ED Mass (HM): LAEF (): 60.0 % BSA (): 2.0 m2 213.0 grams 3.2 l/min/m2 __ MAGALIS (): LAVmax (HM): LAVmin (HM): 35.0 mlPat Height (HM): 45.0 ml/m2 88.0 ml 170.0 cm __ Pat Weight (): 86.2 kg QLAB Heart Model EDV ()_phl: 194.0 ml EF ()_phl: 53.0 % ED Current ()_phl: 60.0 % ESV ()_phl: 91.0 ml HR ()_phl: 61.0 BPMES Current ()_phl: 30.0 % LV Length ED (HM)_phl: 98.0 mmSV (HM)_phl: 103.0 mlED Default (HM)_phl: 60.0 % LV Length ES (HM (more content not included)... Normal [facility] Complete Blood Count Auto Di ffon 09-16-2024 Basophils (Bld) [#/Vol] 0.1 10*3/uL Normal 0.0-0.2 [facility] Comment on above: Result Comment: PERF ORMED BY: [place] [address] PATHOLOGIST ACCOUNTING GENERALIST GEOFFREY VARGAS M.D. Performed By: #### C BC #### [address] Basophils/100 WBC (Bld) 0.7 % Normal . [facility] Comment on above: Performed By: #### C BC #### [address] Eosinophils (Bld) [#/Vol] 0.3 10*3/uL Normal 0.0-0.45 [facility] Comment on above: Performed By: #### C BC #### [address] Eosinophils/100 WBC (Bld) 3.7 % Normal . [facility] Comment on above: Performed By: #### C BC #### [address] Erythrocyte distribution width (RBC) [Ratio] 14.3 % Normal 12.0-14.8 [facility] Comment on above: Performed By: #### C BC #### [address] Hematocrit (Bld) [Volume fraction] 36.8 % Low 38.8-50.0 [facility] Comment on above: Performed By: #### C BC #### [address] Hemoglobin (Bld) [Mass/Vol] 12.1 g/dL Low 13.0-17.0 [facility] Comment on above: Performed By: #### C BC #### [address] Lymphocytes (Bld) [#/Vol] 2.5 10*3/uL Normal 1.00-4.8 [facility] Comment on above: Performed By: #### C BC #### [address] Lymphocytes/100 WBC (Bld) 26.8 % Normal . [facility] Comment on above: Performed By: #### C BC #### [address] MCH (RBC) [Entitic mass] 29.1 pg Normal 27.5-35.2 [facility] Comment on above: Performed By: #### C BC #### [address] MCV (RBC) [Entitic vol] 88.7 fL Normal 83.5-101 [facility] Comment on above: Performed By: #### C BC #### [address] Mean Corpuscular HGB Conc 32.9 g/dL Normal 32.5-35.6 [facility] Comment on above: Performed By: #### C BC #### [address] Monocytes (Bld) [#/Vol] 0.8 10*3/uL Normal 0.0-0.8 [facility] Comment on above: Performed By: #### C BC #### [address] Monocytes/100 WBC (Bld) 8.2 % Normal . [facility] Comment on above: Performed By: #### C BC #### [address] Neutrophils (Bld) [#/Vol] 5.7 10*3/uL Normal 1.8-7.7 [facility] Comment on above: Performed By: #### C BC #### [place] [address] Neutrophils/100 WBC (Bld) 60.6 % Normal . [facility] Comment on above: Performed By: #### C BC #### [address] NRBC% 0.0 /100{WBC} Normal 0-0.[address] [facility] Comment on above: Performed By: #### C BC #### [address] Platelet mean volume (Bld) [Entitic vol] 8.1 fL Normal 6.6-10.1 [facility] Comment on above: Performed By: #### C BC #### [address] Platelets (Bld) [#/Vol] 248 10*3/uL Normal 150-450 [facility] Comment on above: Performed By: #### C BC #### [address] RBC (Bld) [#/Vol] 4.15 10*6/uL Normal 3.90-5.60 [facility] Comment on above: Performed By: #### C BC #### [address] WBC (Bld) [#/Vol] 9.4 10*3/uL Normal 4.1-10.5 [facility] Comment on above: Performed By: #### C BC #### [address] CBC W Auto Differential pane l (Bld)on 06-16-2024 Basophils (Bld) [#/Vol] 0.1 10*3/uL [facility] Basophils/100 WBC (Bld) 1 % Not Estab. [facility] Eosinophils (Bld) [#/Vol] 0.5 10*3/uL High [facility] Eosinophils/100 WBC (Bld) 5 % Not Estab. [facility] Erythrocyte distribution width (RBC) [Ratio] 13.0 % 11.6 - 15.4 % [facility] Hematocrit (Bld) [Volume fraction] 36.2 % Low 37.5 - 51.0 % [facility] Hemoglobin (Bld) [Mass/Vol] 11.2 g/dL Low 13.0 - 17.7 g/dL [facility] Immature granulocytes (Bld) [#/Vol] 0.1 10*3/uL [facility] Immature granulocytes/100 WBC (Bld) 1 % Not Estab. [facility] Lymphocytes (Bld) [#/Vol] 3.0 10*3/uL [facility] Lymphocytes/100 WBC (Bld) 30 % Not Estab. [facility] MCH (RBC) [Entitic mass] 29.3 pg 26.6 - 33.0 pg [facility] MCHC (RBC) [Mass/Vol] 30.9 g/dL Low 31.5 - 35.7 g/dL [facility] MCV (RBC) [Entitic vol] 95 fL 79 - 97 fL [facility] Monocytes (Bld) [#/Vol] 0.7 10*3/uL [facility] Monocytes/100 WBC (Bld) 7 % Not Estab. [facility] Neutrophils (Bld) [#/Vol] 5.6 10*3/uL [facility] Neutrophils/100 WBC (Bld) 56 % Not Estab. [facility] Platelets (Bld) [#/Vol] 302 10*3/uL [facility] RBC (Bld) [#/Vol] 3.82 10*6/uL Low [facility] WBC (Bld) [#/Vol] 9.9 10*3/uL [facility] Comprehensive metabolic pane jt 06-16-2024 Albumin [Mass/Vol] 3.9 g/dL 3.8 - 4.8 g/dL [facility] ALP [Catalytic activity/Vol] 172 U/L High [facility] ALT [Catalytic activity/Vol] U/L [facility] Comment on above: Verified by repeat analysis AST [Catalytic activity/Vol] 14 U/L [facility] Bilirubin [Mass/Vol] 0.2 mg/dL 0.0 - 1 .2 mg/dL [facility] Calcium [Mass/Vol] 9.5 mg/dL 8.6 - 10. 2 mg/dL [facility] Chloride [Moles/Vol] 102 mmol/L 96 - 10 6 mmol/L [facility] CO2 [Moles/Vol] 22 mmol/L 20 - 29 mmol/L [facility] Creatinine [Mass/Vol] 1.63 mg/dL High 0.76 - 1.27 mg/dL [facility] GFR/1.73 sq M.predicted among non-blacks MDRD (S/P/Bld) [Vol rate/Area] 43 mL/min/{1.73_m2} Low 59 - PINF mL/min/1.73 [facility] Globulin (S) [Mass/Vol] 2.8 g/dL 1.5 - 4.5 g/dL [facility] Glucose [Mass/Vol] 165 mg/dL High 70 - 99 mg/dL [facility] Potassium [Moles/Vol] 5.5 mmol/L High 3.5 - 5.2 mmol/L [facility] Protein [Mass/Vol] 6.7 g/dL 6.0 - 8.5 g/dL [facility] Sodium [Moles/Vol] 137 mmol/L 134 - 144 mmol/L [facility] Urea nitrogen [Mass/Vol] 43 mg/dL High 8 - 27 mg/dL [facility] Urea nitrogen/Creatinine [Mass ratio] 26 mg/mg High 10 - 24 [facility] Hemoglobin A1con 06-16-2024 HbA1c (Bld) [Mass fraction] 7.6 % High 4.8 - 5.6 % [facility] Comment on above: Prediabetes: 5.7 - 6 .4 Diabetes: >6.4 Glycemic control for adults with diabetes: <7.0 Lipid 1996 panelon Cholesterol [Mass/Vol] 132 mg/dL 100 - 199 mg/dL [facility] Cholesterol in HDL [Mass/Vol] 43 mg/dL 39 - PINF mg/dL [facility] Cholesterol in LDL [Mass/Vol] 63 mg/dL 0 - 99 mg/dL [facility] Cholesterol in VLDL [Mass/Vol] 26 mg/dL 5 - 40 mg/dL [facility] Triglyceride [Mass/Vol] 149 mg/dL 0 - 149 mg/dL [facility] Microalbumin/Creatinine rati o panel (U)on 06-16-2024 Albumin DL <= 20 mg/L (U) [Mass/Vol] 17.0 ug/mL Not Estab. [facility] Albumin/Creatinine (U) [Mass ratio] 18 [facility] Comment on above: Normal: 0 - 29 Moderately increased: 30 - 300 Severely increased: >300 Creatinine (U) [Mass/Vol] 93.3 mg/dL Not Estab. [facility] No Panel Informationon 06-16 Interpretation and review of laboratory results Abnormal [facility] Performed at: [address] [place] [id number] Smokehouse Operator: Nahun Pickering PhD, Phone: [phone] [facility] Specimen Status Reporton Clindamycin Disk diffusion (KB) [[facility]] Comment [facility] Comment on above: Jennifer Veras LP Defa ult Jennifer Veras [employer] Default A hand-written panel/profile was received from your office. In accordance with the [facility] Ambiguous Test Code Policy dated April 2003, we have completed your order by using the closest currently or formerly recognized AMA panel. We have assigned Lipid Panel, Test Code #[id number] to this request. If this is not the testing you wished to receive on this specimen, please contact the [facility] Client Inquiry/Technical Services Department to clarify the test order. We appreciate your business. [facility] ECG *CARDIOLOGY ONLY*on 06-15-2024 [facility] ECG *CARDIOLOGY ONLY* [facility] [place] [address] [place] [address] Electrocardiograph Report Signed Patient: Ramon Cruz MR#: [id number] : 1945 Acct:[id number] Age/Sex: 78 / M ADM Date: 06/15/24 Loc: [facility] Room: Type: [facility] Attending Dr: Tom Conde MD Ordering Provider: Tom Conde MD Date of Service: 06/15/2401/03/1113 ECG/FPG ECG *CARDIOLOGY ONLY*: I49.1 - Atrial premature depolarization Copies to: Test Reason : Blood Pressure : */* mmHG Vent. Rate : 61 BPM Atrial Rate : 61 BPM P-R Int : 280 ms QRS Dur : 142 ms QT Int : 418 ms P-R-T Axes : 9 -52 190 degrees QTcB Int : 420 ms Atrial-paced rhythm with prolonged AV conduction Left bundle branch block Abnormal ECG When compared with ECG of 24-Feb-2024 23:01, Electronic atrial pacemaker has replaced Sinus rhythm Nonspecific T wave abnormality now evident in Inferior leads Confirmed by Tom Conde ([id number]) on 06/16/2024 3:02:16 PM Referred By: Electronically Signed By: Tom Conde Transcribed By: MUS Signed By Tom Conde MD 06/16/24 1501 Normal [facility] US ankle/arm indiceson 06-01 US ankle/arm indices [facility] [address] [place] [address] Ultrasound Report Signed Patient: Ramon Cruz MR#: [id number] : 1945 Acct:[id number] Age/Sex: 78 / M ADM Date: 06/01/24 Loc: [facility] Room: Type: [facility] Attending Dr: Coleman Gale MD Ordering Provider: Coleman Gale MD Date of Service: 06/01/24 US/US ankle/arm indices: I70.213 - Atherosclerosis of [place] arteries of extremiti... Copies to: Coleman Gale MD LOWER EXTREMITY SEGMENTAL ARTERIAL DOPSCAN (PVR) INDICATION: Follow-up known peripheral vascular occlusive disease PROCEDURE: Right arm blood pressure is 124 , left is 123 . Pressures at the right ankle are 175 using the posterior tibial artery, and 172 using the dorsalis pedis artery with ankle-brachial index of 1.41 1.39 . Pressures at the left ankle are 196 using the posterior tibial artery, and 178 with ankle-brachial index of 1.58 1.44 . Wave forms by plethysmography are normal US/US ankle/arm indices IMPRESSION: There is an element of incompressibility making higher than expected ankle-brachial indices bilaterally. However waveforms suggest overall good arterial perfusion. If there is any significant peripheral vascular occlusive disease it is likely to be mild Impression dictated by: Coleman Gale M.D.06/01/2024 2:27 PM Dictation Location: [place] [address] Tech: Maryan Otero Transcribed By: KEVEN 06/01/24 1427 Dictated By: Coleman Gale MD 06/01/24 1425 Signed By: 08/20/24 1427 Normal [facility] Glucose Poct Glucometerson 0 02-26-2024 Glucose [Mass/Vol] 95 mg/dL Normal [facility] Comment on above: Result Comment: [place] Glucose Reference Range is dependent on time and content of last meal. Glucose of more than 200 mg/dL in a nonstressed, ambulatory subject supports the diagnosis of Diabetes Mellitus. PERFORMED BY: [place] [address] PATHOLOGIST ACCOUNTING GENERALIST PADDY RAY M.D. Performed By: #### H S TROP, BMP #### [address] Commemt1 Glu2: Cleaned Meter Normal [facility] Comment on above: Result Comment: PERF ORMED BY: [place] [address] PATHOLOGIST ACCOUNTING GENERALIST PADDY RAY M.D. Performed By: #### H S TROP, BMP #### [address] Glucose [Mass/Vol] 204 mg/dL Normal [facility] Comment on above: Result Comment: [place] [facility] Glucose Reference Range is dependent on time and content of last meal. Glucose of more than 200 mg/dL in a nonstressed, ambulatory subject supports the diagnosis of Diabetes Mellitus. Performed By: #### H S TROP, BMP #### [address] Glucose [Mass/Vol] 121 mg/dL Normal [facility] Comment on above: Result Comment: [place] om Glucose Reference Range is dependent on time and content of last meal. Glucose of more than 200 mg/dL in a nonstressed, ambulatory subject supports the diagnosis of Diabetes Mellitus. PERFORMED BY: [place] [address] PATHOLOGIST ACCOUNTING GENERALIST PADDY RAY M.D. Performed By: #### G LULS #### Point of Care testing , MR head/brain wo conon 02-25 MR head/brain wo con [facility] [place] [address] MRI Report Signed Patient: Ramon Cruz MR#: [id number] : 1945 Acct:[id number] Age/Sex: 78 / M ADM Date: 02/25/24 Loc: 3T Room: [address] [place] [address] Type: ADM INOo Attending Dr: Homar Gonzalez MD Copies to: DO Homar Patel MD Ordering Provider: Uday Raman DO Date of Service: 02/26/24 MR/MR head/brain wo con: parkinsonism MR head/brain wo con 02/25/2024 1:46 PM SIGN AND SYMPTOMS: Decreased responsiveness, hyperglycemia, fatigue PROTOCOL: Multiplanar multisequence MR images of the brain were obtained without IV contrast COMPARISON: 02/24/2024 FINDINGS: Extra axial spaces: There is diffuse age-related cortical atrophy. Hemorrhage: None. Ventricular system: Within normal limits. Basal cisterns: Within normal limits and not effaced. Cerebral parenchyma: There is periventricular white matter T2 and FLAIR hyperintense signal suggesting chronic microvascular ischemic change. There is a peripherally T2 FLAIR hyperintense lesion which is centrally T2 FLAIR hyperintense in the right frontal cortex/subcortical white matter. This most likely represents a remote lacunar infarct. Midline shift: None.. Cerebellum: Within normal limits. Brainstem: Within normal limits. OTHER: Calvarium: Normal marrow signal. Vascular system: Satisfactory flow voids within the anterior and posterior circulation. Visualized Paranasal sinuses: Mucosal thickening is noted in the ethmoid air cells. Visualized Orbits: Within normal limits. Visualized upper cervical spine: Within normal limits. Sella and skull base: Within normal limits. MR/MR head/brain wo con IMPRESSION: No acute intracranial pathology. There is diffuse age-related cortical atrophy. There is periventricular white matter T2 and FLAIR hyperintense signal suggesting chronic microvascular ischemic change. There is a peripherally T2 FLAIR hyperintense lesion which is centrally T2 FLAIR hyperintense in the right frontal cortex/subcortical white matter. This most likely represents a remote lacunar infarct. Impression dictated by: Robert Callaway M.D.02/26/2024 3:13 PM Dictation Location: [place] [address] Transcribed By: [facility] 02/26/24 1513 Dictated By: Robert Callaway II, MD 02/26/24 1507 Signed By: 02/26/24 1513 Normal [facility] B-Type Natriuretic Peptideon 02-25-2024 Natriuretic peptide B (Bld) [Mass/Vol] 137.0 pg/mL High 5-100 [facility] Comment on above: Result Comment: PERF ORMED BY: [place] [address] PATHOLOGIST ACCOUNTING GENERALIST PADDY RAY M.D. Performed By: #### H S TROP, BMP #### [facility] [address] [place] [address] Basic Metabolic Panelon 02-10 Anion gap [Moles/Vol] 3.2 mmol/L Low 6.0-15.0 [facility] Comment on above: Performed By: #### H S TROP, BMP #### [facility] [address] [place] [address] Calcium [Mass/Vol] 9.2 mg/dL Normal 8.6-10.3 [facility] Comment on above: Performed By: #### H S TROP, BMP #### [place] [address] [place] Chloride [Moles/Vol] 106 mmol/L Normal 98-107 [facility] Comment on above: Performed By: #### H S TROP, BMP #### [facility] [address] [place] [address] [place] CO2 [Moles/Vol] 31.2 mmol/L High 21.0-31.0 [facility] Comment on above: Performed By: #### H S TROP, BMP #### [facility] [address] [place] [address] [place] Creatinine [Mass/Vol] 1.23 mg/dL Normal 0.70-1.30 [facility] Comment on above: Performed By: #### H S TROP, BMP #### [facility] [address] [place] [address] [place] Creatinine Clr Calc Pharmacy 51.09 Normal [facility] Comment on above: Result Comment: PERF ORMED BY: [place] [address] PATHOLOGIST ACCOUNTING GENERALIST PADDY RAY M.D. Performed By: #### H S TROP, BMP #### [place] [address] [place] GFR/1.73 sq M.predicted MDRD (S/P/Bld) [Vol rate/Area] mL/min/{1.73_m2} Normal [facility] Comment on above: Performed By: #### H S TROP, BMP #### [address] Glucose [Mass/Vol] 204 mg/dL High 70-100 [facility] Comment on above: Result Comment: [facility] [place] Glucose Reference Range is dependent on time and content of last meal. Glucose of more than 200 mg/dL in a nonstressed, ambulatory subject supports the diagnosis of Diabetes Mellitus. ADA recommended reference range Performed By: #### H S TROP, BMP #### [address] Potassium [Moles/Vol] 4.4 mmol/L Normal 3.5-5.1 [facility] Comment on above: Performed By: #### H S TROP, BMP #### [address] Sodium [Moles/Vol] 136 mmol/L Normal 136-145 [facility] Comment on above: Performed By: #### H S TROP, BMP #### [place] [address] [place] Urea nitrogen [Mass/Vol] 27 mg/dL High 7-25 [facility] Comment on above: Performed By: #### H S TROP, BMP #### [place] [address] head/brain wo kayla 02-24 CT head/brain wo [facility] [place] [address] [place] [address] CT Scan Report Signed Patient: Ramon Cruz MR#: [id number] : 1945 Acct:[id number] Age/Sex: 78 / M ADM Date: 02/25/24 Loc: Room: [address] [place] [address] Type: ADM INOo Attending Dr: Homar Gonzalez MD Copies to: MD Silvestre Gill Jr, MD Ordering Provider: Silvestre Alexander Jr, MD Date of Service: 02/25/24 CT/CT head/brain wo con: AMS, weak, not eating CT BRAIN WITHOUT CONTRAST: CLINICAL HISTORY: Altered mental status for one week. COMPARISON: None TECHNIQUE: Contiguous axial unenhanced images were obtained through the brain. This CT exam was performed using one or more following dose reduction techniques: Automated exposure control, adjustment of the mA and/or kV according to patient size, or use of iterative reconstruction technique. FINDINGS: There is no evidence of midline shift, intra or extra-axial fluid collection, hemorrhage or CT evidence of stroke. Cortical atrophy with chronic microvascular ischemic changes. Posterior fossa appears unremarkable. Visualized intraorbital contents demonstrate no acute findings. Visualized paranasal sinuses are clear. The surrounding soft tissues are normal. CT/CT head/brain wo con IMPRESSION: NO ACUTE INTRACRANIAL ABNORMALITY. Impression dictated by: Carlos Chen Jr., D.O.02/25/2024 9:44 AM Dictation Location: [place] [address] Transcribed By: [facility] 02/25/24 0944 Dictated By: Carlos Chen Jr, DO 02/25/24 0932 Signed By: 02/25/24 0944 Normal [facility] Complete Blood Count Auto Di ffon 02-25-2024 Basophils (Bld) [#/Vol] 0.1 10*3/uL Normal 0.0-0.2 [facility] Comment on above: Result Comment: PERF ORMED BY: [place] [address] PATHOLOGIST ACCOUNTING GENERALIST PADDY RAY M.D. Performed By: #### H S TROP, BMP #### [address] Basophils/100 WBC (Bld) 1.0 % Normal . [facility] Comment on above: Performed By: #### H S TROP, BMP #### [address] [place] [address] [place] Eosinophils (Bld) [#/Vol] 0.3 10*3/uL Normal 0.0-0.45 [facility] Comment on above: Performed By: #### H S TROP, BMP #### [place] [address] [place] Eosinophils/100 WBC (Bld) 3.3 % Normal . [facility] Comment on above: Performed By: #### H S TROP, BMP #### [address] Erythrocyte distribution width (RBC) [Ratio] 13.7 % Normal 12.0-14.8 [facility] Comment on above: Performed By: #### H S TROP, BMP #### [address] Hematocrit (Bld) [Volume fraction] 40.6 % Normal 38.8-50.0 [facility] Comment on above: Performed By: #### H S TROP, BMP #### [address] Hemoglobin (Bld) [Mass/Vol] 13.4 g/dL Normal 13.0-17.0 [facility] Comment on above: Performed By: #### H S TROP, BMP #### [place] [address] [place] Lymphocytes (Bld) [#/Vol] 2.2 10*3/uL Normal 1.00-4.8 [facility] Comment on above: Performed By: #### H S TROP, BMP #### [place] [address] [place] Lymphocytes/100 WBC (Bld) 26.0 % Normal . [facility] Comment on above: Performed By: #### H S TROP, BMP #### [address] MCH (RBC) [Entitic mass] 29.3 pg Normal 27.5-35.2 [facility] Comment on above: Performed By: #### H S TROP, BMP #### [address] MCV (RBC) [Entitic vol] 89.0 fL Normal 83.5-101 [facility] Comment on above: Performed By: #### H S TROP, BMP #### [address] Mean Corpuscular HGB Conc 32.9 g/dL Normal 32.5-35.6 [facility] Comment on above: Performed By: #### H S TROP, BMP #### [place] [address] [place] Monocytes (Bld) [#/Vol] 0.8 10*3/uL Normal 0.0-0.8 [facility] Comment on above: Performed By: #### H S TROP, BMP #### [address] Monocytes/100 WBC (Bld) 21.11 % High 0.00-20.00 [facility] Comment on above: Result Comment: For adults in ED, MDW > 20.0 may be associated with a higher risk of sepsis during the first 12 hrs of hospital admission Performed By: #### H S TROP, BMP #### [place] [address] [place] Monocytes/100 WBC (Bld) 8.9 % Normal . [facility] Comment on above: Performed By: #### H S TROP, BMP #### [place] [address] [place] Neutrophils (Bld) [#/Vol] 5.2 10*3/uL Normal 1.8-7.7 [facility] Comment on above: Performed By: #### H S TROP, BMP #### [place] [address] [place] Neutrophils/100 WBC (Bld) 60.8 % Normal . [facility] Comment on above: Performed By: #### H S TROP, BMP #### [place] [address] [place] NRBC% 0.1 /100{WBC} Normal 0-0.[address] [facility] Comment on above: Performed By: #### H S TROP, BMP #### [address] Platelet mean volume (Bld) [Entitic vol] 8.2 fL Normal 6.6-10.1 [facility] Comment on above: Performed By: #### H S TROP, BMP #### [address] Platelets (Bld) [#/Vol] 271 10*3/uL Normal 150-450 [facility] Comment on above: Performed By: #### H S TROP, BMP #### [address] RBC (Bld) [#/Vol] 4.57 10*6/uL Normal 3.90-5.60 [facility] Comment on above: Performed By: #### H S TROP, BMP #### [address] WBC (Bld) [#/Vol] 8.6 10*3/uL Normal 4.1-10.5 [facility] Comment on above: Performed By: #### H S TROP, BMP #### [address] Comprehensive Metabolic Pane jt 02-25-2024 Albumin [Mass/Vol] 3.8 g/dL Normal 3.5-5.7 [facility] Comment on above: Performed By: #### H S TROP, BMP #### [address] Albumin/Globulin [Mass ratio] 1.1 {ratio} Normal [facility] Comment on above: Performed By: #### H S TROP, BMP #### [address] ALP [Catalytic activity/Vol] 114 U/L High 34-104 [facility] Comment on above: Performed By: #### H S TROP, BMP #### [address] ALT [Catalytic activity/Vol] 7 U/L Normal 7-52 [facility] Comment on above: Performed By: #### H S TROP, BMP #### [address] Anion gap [Moles/Vol] 7.7 mmol/L Normal 6.0-15.0 [facility] Comment on above: Performed By: #### H S TROP, BMP #### [address] AST [Catalytic activity/Vol] 17 U/L Normal 13-39 [facility] Comment on above: Performed By: #### H S TROP, BMP #### [address] Bilirubin [Mass/Vol] 0.4 mg/dL Normal 0.3-1.0 [facility] Comment on above: Performed By: #### H S TROP, BMP #### [address] Calcium [Mass/Vol] 9.8 mg/dL Normal 8.6-10.3 [facility] Comment on above: Performed By: #### H S TROP, BMP #### [place] [address] [place] Chloride [Moles/Vol] 102 mmol/L Normal 98-107 [facility] Comment on above: Performed By: #### H S TROP, BMP #### [address] CO2 [Moles/Vol] 31.8 mmol/L High 21.0-31.0 [facility] Comment on above: Performed By: #### H S TROP, BMP #### [place] [address] [place] Creatinine [Mass/Vol] 1.46 mg/dL High 0.70-1.30 [facility] Comment on above: Performed By: #### H S TROP, BMP #### [facility] [address] [place] [address] [place] Creatinine Clr Calc Pharmacy 43.83 Normal [facility] Comment on above: Performed By: #### H S TROP, BMP #### [facility] [address] [place] [address] [place] GFR/1.73 sq M.predicted MDRD (S/P/Bld) [Vol rate/Area] 48.919 mL/min/{1.73_m2} Normal [facility] Comment on above: Performed By: #### H S TROP, BMP #### [facility] [address] [place] [address] [place] Globulin (S) [Mass/Vol] 3.5 g/dL Normal [facility] Comment on above: Performed By: #### H S TROP, BMP #### [address] Glucose [Mass/Vol] 216 mg/dL High 70-100 [facility] Comment on above: Result Comment: [place] Glucose Reference Range is dependent on time and content of last meal. Glucose of more than 200 mg/dL in a nonstressed, ambulatory subject supports the diagnosis of Diabetes Mellitus. ADA recommended reference range Performed By: #### H S TROP, BMP #### [place] [address] [place] Potassium [Moles/Vol] 4.5 mmol/L Normal 3.5-5.1 [facility] Comment on above: Performed By: #### H S TROP, BMP #### [place] [address] [place] Protein [Mass/Vol] 7.3 g/dL Normal 6.4-8.9 [facility] Comment on above: Performed By: #### H S TROP, BMP #### [place] [address] [place] Sodium [Moles/Vol] 137 mmol/L Normal 136-145 [facility] Comment on above: Performed By: #### H S TROP, BMP #### [place] [address] [place] Urea nitrogen [Mass/Vol] 31 mg/dL High 7-25 [facility] Comment on above: Performed By: #### H S TROP, BMP #### [facility] [address] [place] [address] [place] Dipstick and Microscopicon 0 02-25-2024 Appearance (U) Clear Normal Clear [facility] Comment on above: Order Comment: Name Collection Type:: Clean-Voided Midstream Performed By: #### H S TROP, BMP #### [place] [address] [place] Bacteria,Urine None Seen Normal None Seen [facility] Comment on above: Order Comment: Name Collection Type:: Clean-Voided Midstream Performed By: #### H S TROP, BMP #### [place] [address] [place] Bilirubin,Urine Negative Normal Negative [facility] Comment on above: Order Comment: Name Collection Type:: Clean-Voided Midstream Performed By: #### H S TROP, BMP #### [address] Color (U) Yellow Normal Yellow [facility] Comment on above: Order Comment: Name Collection Type:: Clean-Voided Midstream Performed By: #### H S TROP, BMP #### [address] Glucose Ql (U) 500 mg/dL High Normal [facility] Comment on above: Order Comment: Name Collection Type:: Clean-Voided Midstream Performed By: #### H S TROP, BMP #### [place] [address] [place] Hyaline Casts,Urine None Seen Normal 0-8 [facility] Comment on above: Order Comment: Name Collection Type:: Clean-Voided Midstream Result Comment: PERF ORMED BY: [place] [address] PATHOLOGIST ACCOUNTING GENERALIST PADDY RAY M.D. Performed By: #### H S TROP, BMP #### [address] Ketones Ql (U) Negative Normal Negative [facility] Comment on above: Order Comment: Name Collection Type:: Clean-Voided Midstream Performed By: #### H S TROP, BMP #### [address] Leukocyte esterase Test strip Ql (U) Negative Normal Negative [facility] Comment on above: Order Comment: Name Collection Type:: Clean-Voided Midstream Performed By: #### H S TROP, BMP #### [address] Nitrite,Urine Negative Normal Negative [facility] Comment on above: Order Comment: Name Collection Type:: Clean-Voided Midstream Performed By: #### H S TROP, BMP #### [address] Occult Blood,Urine Negative Normal Negative [facility] Comment on above: Order Comment: Name Collection Type:: Clean-Voided Midstream Result Comment: PERF ORMED BY: [place] [address] PATHOLOGIST ACCOUNTING GENERALIST PADDY RAY M.D. Performed By: #### H S TROP, BMP #### [address] pH (U) 5.0 [pH] Normal 5.0-9.0 [facility] Comment on above: Order Comment: Name Collection Type:: Clean-Voided Midstream Performed By: #### H S TROP, BMP #### [address] Protein (U) [Mass/Vol] 100 mg/dL High Negative Th [facility] Comment on above: Order Comment: Name Collection Type:: Clean-Voided Midstream Performed By: #### H S TROP, BMP #### [place] [address] [place] RBC LM.HPF (Urine sed) [#/Area] 0 /[HPF] Normal 0-4 [facility] Comment on above: Order Comment: Name Collection Type:: Clean-Voided Midstream Performed By: #### H S TROP, BMP #### [address] Specificy [place],Urine 1.019 Normal 1.001-1.030 [facility] Comment on above: Order Comment: Name Collection Type:: Clean-Voided Midstream Performed By: #### H S TROP, BMP #### [address] Squamous Epithelial Cell,Urine None Seen Normal 0-2 [facility] Comment on above: Order Comment: Name Collection Type:: Clean-Voided Midstream Performed By: #### H S TROP, BMP #### [address] Urobilinogen,Urine Normal Normal Normal [facility] Comment on above: Order Comment: Name Collection Type:: Clean-Voided Midstream Performed By: #### H S TROP, BMP #### [address] WBC LM.HPF (Urine sed) [#/Area] 0 /[HPF] Normal 0-4 [facility] Comment on above: Order Comment: Name Collection Type:: Clean-Voided Midstream Performed By: #### H S TROP, BMP #### [address] Glucose Poct Glucometerson 0 02-25-2024 Glucose [Mass/Vol] 224 mg/dL Normal [facility] Comment on above: Result Comment: [place] Glucose Reference Range is dependent on time and content of last meal. Glucose of more than 200 mg/dL in a nonstressed, ambulatory subject supports the diagnosis of Diabetes Mellitus. PERFORMED BY: [place] [address] PATHOLOGIST ACCOUNTING GENERALIST PADDY RAY M.D. Performed By: #### G LULS #### Point of Care testing , Commemt1 Normal [facility] Comment on above: Result Comment: Glu2 : WILL NOTIFY DR/RN Performed By: #### H S TROP, BMP #### [address] Commemt2 Cleaned Meter Normal The [facility] Comment on above: Result Comment: PERF ORMED BY: [place] [address] PATHOLOGIST ACCOUNTING GENERALIST PADDY RAY M.D. Performed By: #### H S TROP, BMP #### [address] Glucose [Mass/Vol] 72 mg/dL Normal [facility] Comment on above: Result Comment: [place] om Glucose Reference Range is dependent on time and content of last meal. Glucose of more than 200 mg/dL in a nonstressed, ambulatory subject supports the diagnosis of Diabetes Mellitus. Performed By: #### H S TROP, BMP #### [address] Commemt1 Glu2: Cleaned Meter Normal [facility] Comment on above: Result Comment: PERF ORMED BY: [place] [address] PATHOLOGIST ACCOUNTING GENERALIST PADDY RAY M.D. Performed By: #### G LULS #### Point of Care testing , Glucose [Mass/Vol] 258 mg/dL Normal [facility] Comment on above: Result Comment: [place] om Glucose Reference Range is dependent on time and content of last meal. Glucose of more than 200 mg/dL in a nonstressed, ambulatory subject supports the diagnosis of Diabetes Mellitus. Performed By: #### G LULS #### Point of Care testing , Glucose [Mass/Vol] 197 mg/dL Normal [facility] Comment on above: Result Comment: [place] om Glucose Reference Range is dependent on time and content of last meal. Glucose of more than 200 mg/dL in a nonstressed, ambulatory subject supports the diagnosis of Diabetes Mellitus. PERFORMED BY: [place] [address] PATHOLOGIST ACCOUNTING GENERALIST PADDY RAY M.D. Performed By: #### G LULS #### Point of Care testing , Glucose [Mass/Vol] 194 mg/dL Normal [facility] Comment on above: Result Comment: [place] om Glucose Reference Range is dependent on time and content of last meal. Glucose of more than 200 mg/dL in a nonstressed, ambulatory subject supports the diagnosis of Diabetes Mellitus. PERFORMED BY: [place] [address] PATHOLOGIST ACCOUNTING GENERALIST PADDY RAY M.D. Performed By: #### G MONET #### Point of Care testing , Magnesiumon 02-25-2024 Magnesium [Mass/Vol] 2.0 mg/dL Normal 1.9-2.7 [facility] Comment on above: Performed By: #### H S TROP, BMP #### [place] [address] [place] Partial Thromboplastin Timeo n 02-25-2024 aPTT Coag (Bld) [Time] 26.4 s Normal 25.1-36.5 Th e [facility] Comment on above: Result Comment: A he matocrit value greater than 55% may lead to inaccurate results in coagulation testing. Patients having hematocrit values >55% require a special collection tube for coagulation studies. Please contact the laboratory at [phone] for redraw instructions. PERFORMED BY: [place] [id number] PATHOLOGIST ACCOUNTING GENERALIST PADDY RAY M.D. Performed By: #### H S TROP, BMP #### [address] [address] [place] Prothrombin Time INRon 02-24 INR Coag (PPP) [Relative time] 1.0 {INR} Normal [facility] Comment on above: Result Comment: INR Therapeutic Range A) Pre- and Peroperative OAT started two weeks before surgery. NOT HIP SURGERY: 1.5 - 2.5 HIP SURGERY: 2 - 3 B) Primary and secondary prevention of venous THROMBOSIS: 2 - 3 C) Active venous thrombosis, pulmonary embolism and prevention of recurrent venous thrombosis: 2 - 3 D) Prevention of arterial thromboembolism including patients with mechanical heart valves: 3 - 4.5 Performed By: #### H S TROP, BMP #### [address] [address] [place] PT Coag (PPP) [Time] 12.0 s Normal 9.0-12.9 [facility] Comment on above: Result Comment: A he matocrit value greater than 55% may lead to inaccurate results in coagulation testing. Patients having hematocrit values >55% require a special collection tube for coagulation studies. Please contact the laboratory at [phone] for redraw instructions. Performed By: #### H S TROP, BMP #### [address] Thyroid Stimulating Hormoneo n 02-25-2024 TSH Qn 1.69 m[IU]/L Normal 0.45-5.33 [facility] Comment on above: Result Comment: PERF ORMED BY: [place] [address] PATHOLOGIST ACCOUNTING GENERALIST PADDY RAY M.D. Performed By: #### H S TROP, BMP #### [address] Troponin I High Sensitivityo n 02-25-2024 Troponin I High Sensitivity 93.3 pg/mL Off scale high 0.0-20.0 [facility] Comment on above: Result Comment: Crit ical Result : Called to and read back by: NATASHA QUIÑONES at: 02/25/2024 08:20:19 by:[id number] PERFORMED BY: [place] [address] PATHOLOGIST ACCOUNTING GENERALIST PADDY RAY M.D. Performed By: #### H S TROP, BMP #### [address] Troponin I High Sensitivity 130.7 pg/mL Off scale high 0.0-20.0 [facility] Comment on above: Result Comment: Crit ical Result : Called to and read back by: CASH MANCINI at: 02/25/2024 03:54:01 by:[id number] PERFORMED BY: [place] [address] PATHOLOGIST ACCOUNTING GENERALIST PADDY RAY M.D. Performed By: #### H S TROP, BMP #### [address] XR chest 1V portableon 02-24 XR chest 1V portable [facility] Main [place] [id number] XRay Report Signed Patient: Ramon Cruz MR#: [id number] : 1945 Acct:[id number] Age/Sex: 78 / M ADM Date: 02/25/24 Loc: 3T Room: [address] [place] [address] Type: ADM INOo Attending Dr: Homar Gonzalez MD Copies to: MD Silvestre Gill Jr, MD Ordering Provider: Silvestre Alexander Jr, MD Date of Service: 02/25/24 XR/XR chest 1V portable: Recheck/Abnormal Lab/Rx XR chest 1V portable 02/25/2024 2:02 AM SIGNS AND SYMPTOMS: Hypertension, difficulty ambulating PROTOCOL: Frontal radiograph of the chest COMPARISON: None FINDINGS: The trachea is midline. There is a dual lead pacer device in the left hemithorax. The heart and mediastinal structures are within normal limits. The lung parenchyma is clear. The bony thorax is intact. Degenerative changes are noted in the shoulders and thoracic spine. XR/XR chest 1V portable IMPRESSION: No acute cardiopulmonary pathology. Impression dictated by: Robert Callaway M.D.02/25/2024 9:28 AM Dictation Location: [place] [address] Transcribed By: [facility] 02/25/24927 Dictated By: Robert Callaway II, MD 02/25/24926 Signed By: 02/25/24927 Normal [facility] ECG 12 lead ECGon 02-24-2024 ECG 12 lead ECG [facility] Main [address] [address] Electrocardiograph Report Signed Patient: Ramon Cruz MR#: [id number] : 1945 Acct:[id number] Age/Sex: 78 / M ADM Date: 02/25/24 Loc: 3T Room: [address] [place] [address] Type: ADM INOo Attending Dr: Roe Carpenter MD Ordering Provider: Silvestre Alexander Jr, MD Date of Service: 05/ ECG/ECG 12 lead ECG: Weakness Copies to: Test Reason : Blood Pressure : / mmHG Vent. Rate : 061 BPM Atrial Rate : 061 BPM P-R Int : 170 ms QRS Dur : 124 ms QT Int : 410 ms P-R-T Axes : -17 -64 102 degrees QTc Int : 412 ms Atrial-paced rhythm Nonspecific intraventricular conduction delay Abnormal ECG When compared with ECG of 02-JUL-2014 11:48, Sinus rhythm has replaced Junctional rhythm Confirmed by SILVESTRE ALEXANDER MD ([id number]) on 02/25/2024 5:41:44 AM Referred By: Electronically Signed By:SILVESTRE ALEXANDER MD Transcribed By: MUS Signed By Silvestre Alexander Jr, MD 0541 Normal [facility] Glucose Poct Glucometerson 0 02-24-2024 Commemt1 Glu2: Cleaned Meter Normal [facility] Comment on above: Result Comment: PERF ORMED BY: [address] [address] PATHOLOGIST ACCOUNTING GENERALIST PADDY RAY M.D. Performed By: #### G LULS #### Point of Care testing , Glucose [Mass/Vol] 230 mg/dL Normal [facility] Comment on above: Result Comment: [facility] [place] Glucose Reference Range is dependent on time and content of last meal. Glucose of more than 200 mg/dL in a nonstressed, ambulatory subject supports the diagnosis of Diabetes Mellitus. Performed By: #### G LULS #### Point of Care testing , Capillary blood glucose jerardo urement by glucometer (mass/volume)Ordered By: Manda [place] on 02-09-2024 Glucose [Mass/Vol] 165 mg/dL Normal [facility] Comment on above: Random Glucose Refer ence Range is dependent on time and content of last meal. Glucose of more than 200 mg/dL in a nonstressed, ambulatory subject supports the diagnosis of Diabetes Mellitus. Result Comment: [facility] [place] Glucose Reference Range is dependent on time and content of last meal. Glucose of more than 200 mg/dL in a nonstressed, ambulatory subject supports the diagnosis of Diabetes Mellitus. Performed By: #### H S TROP, BMP #### [address] [place] [address] [place] Glucose Poct Glucometerson 0 02-09-2024 Commemt1 Glu2: Cleaned Meter Normal [facility] Comment on above: Result Comment: PERF ORMED BY: [address] [place] [address] PATHOLOGIST ACCOUNTING GENERALIST PADDY RAY M.D. Performed By: #### H S TROP, BMP #### [place] [address] [place] Jt 02-09-2024 L Specimen: [id number] Received: 02/09/24 Status: SOUJina Renoemi Num: [id number] Spec Type: Surgical Subm Dr: Manda [place] MD Tissues: A Colon Biopsy (SIGMOID POLYP) Procedures: HE/2, Gross/Micro L4 Age/ Patient Sex Location Account Attending Physician Ramon Cruz 78/M [id number] Manda [place] MD SPEC NUM: [id number] RECD: 02/09/24 STATUS: RAMBO ERNST NUM: [id number] CAIO: 02/09/24 DR: Manda [place] MD ENTERED: 02/09/24 [facility] DR: SPEC TYPE: Surgical DEPT: S ORDERED: HE/2, Gross/Micro L4 ORDERED: HE/2, Gross/Micro L4 Pathological Diagnosis Sigmoid polyp, polypectomy: - Hyperplastic polyp. Gross Description Received in formalin, labeled with the patient's name, date of and sigmoid polyp is a 0.5 x 0.4 x 0.1 cm griffith polypoid tissue fragment admixed with mucus, entirely submitted in A1. Clinical history: Family history of colon cancer CPT Codes 68325 -------- -------- Specimen: [id number] Received: 02/09/24-1040 Status: RAMBO Ernst Num: [id number] Spec Type: Surgical Subm Dr: Manda [place] MD Tissues: A Colon Biopsy (SIGMOID POLYP) Procedures: HE/2, Gross/Micro L4 -------- Patient: Ramon Cruz [id number] (Continued) -------- Signed (signature on file) Lili Vicente MD 02/10/24 1037 Normal [facility] No Panel InformationOrdered By: Manda [place] on 02-09-2024 Bedside Glucose Comment Glu2: cleaned meter [facility] POINT OF CARE GLUCOSEon 05- Glucose [Mass/Vol] 223 mg/dL Critically high 74-106 [facility] Comment on above: Performed By: #### P OCGLUC #### [facility] [address] [place] [address] Dr. Radha Camarena Coding Summaryon 01-30-2023 Coding Summary HTMLBase 64 XrqbycqmMNc7tMa+PGhlY WQ+RI4MVCXaX65auCJztA 2BV0pNER5AUEHXNLEVTN3 KXM3nnLJ3HQrzO3JuedSl ZgqvtXJvJT81UZj3SBI0n MqkRQvmqF5ipHFdA2p3Ho LxDS97tA31PUfbSPEjDdU 3LjZpbjsgbWFy G1ujMkKhsWYzKqi+PHRhY mxlIHdpZHRoPScxMDAlJy IfzBjxPF5pDi2yOOBfSGE vbGxhcHNlOiBj c1vgQFPkFZvqBE1uiRsqA 6ZemLA9UKJea7q3Kn33yX I+KRCbROW9bRnwFLldh54 6WoGmx3dsJQR8 hMHgAIipPAF1J29ld9Y1H BIiVCXgBFX2xQO2gI8zdO fzweqdU5HlpIJaExN7ERW 7gDKmnC3iwAug cvinyU1fMjf+I14KGV0IE RQTPC9PCbm2C2UyCvfbqF I+KZ72ZTBtIZ18iEPbmBL js7innUd5EjLa HWSlZST1fWjbRQoma9FmZ YKjM63mgMHbr8H9RGYurF szhDKyHhIawGN9eY0zKAn sjrlyn3gfgipr Bjske3zslt53xC20M13xI YekOBYlLNR0DNHsPLWtlR jbyv0apK5pLv2+MAzkg1n rd1uqvNu8SgLn WVNdcdKdfGhlOHR6y0XuQ j71A5OjgEohx9MpUzx3vs 25tHAxb9G6pEB4MMyaEYP woC6zTAraOcV8 KLDzGoJziL74tOFlGAgzC j6yxDucsUajXO2xAZEdxt phDDSthO7rLDKwvCHxeOn aOF9vUFKssusy y879DgMjNAS4RTNanRNgZ 2WgzB7yRlUjCJHkVIXdK2 BvgOQrSTepX396AIdaXmI 4PSCpvtSuG1Dz LLEtvGtlGfN1t1W7Et6Ze 7ZplvylGYR6SAayBOJ5Fi XlHsVoUyF5R3DgDgv6TZY gpBioOX7cZ6Wc UYYosvnjoauipIO1ZLJuJ CCplN82eYHyBHcdEp9in0 K7n917GSVeCKOwsT46Pk4 udDogMTBwdCBU gZ4yiffzb3rpfanxDrSuU RJnXAw2QAc8VUQgpWwdHt LmPVF6KqG2CHB3rHFelL2 xfIkpyifsiU2d Oyc+Q89txM9mMAJ7HTL0a xaeVHXwgjHlKP65ED37E2 RyPjwvdGFibGU+PGRpdiB cpXmgVE8wQfGv v1gxx9TfEAwqG7RpFIPxS XbtKey7EIEnSMP5qNI3jG 2bFIQnNXsdh0T9wYW1N2X imyAtwq0qe4gr PZMrHYxxV62jbWXpi7L8N TPqcGB0PZPzlJarPpWinS 93Oyc+YJLtmUpzj6SpWxz ma0owx6ghkLf4 HdKuOONihwPgtQqcATQ2q 7OjRe33S41wJOpuMYVyJM TdDNJnGUSlaHtdrv2hrX4 wIi8+PGNvbCB3 mPT5xS6iBSAyHuC0YFkwE 496WxLeyAIaJtgae2lnf4 ltuAe8SlCrVNPrjtLncSa cBDN4d3TxWz25 I03zZOwjVWOqAGTpNXLeD BKnkOehuw8fqD5rEa1+PC 3uj4ofnc49lM44gUL+PHR wQYD6dNubJRvh KPJbqU0oUYakPuV8YTHkG oDavO58hLBzGBfwZq4psQ qeyOgvMZ7vRHYqysgxx60 4GwEle0fxCRJf gWGyQKhzNER9P56lc8Z8F CHmBXAiABS4pCF5sG4ujS lnbjogbGVmdDsgdmVydGl zEQppQUfyZ822 IHRvcDsnPlBhdGllbnQgT bAvLBj2J2QjFyg0CGTwkO igDA5exSMkXShuWk6ixHj ruCdpTD2pWLIw jjlbd556SyPlh3gtPUTxg SOwJLfmAFO1C10rp0M1NO DpDLAzCRJ1pUR6yS3spHy nbjogbGVmdDsg lvEnwXxnMUiwERxbJ736Q HRvcDsnPkJpcnRoIERhdG O4JD21NU91jQXfk0B2jUM 0K6CgNYPbmhrk dqcmeEA8XQYtQJJbmD27W v8vdWkfYe0zJWMzTHO4JU NklZLlC3DteC6bQxFmWNW cBSVtY8LllRSx LJvjZ546NOjzGeJ4AQVrc tMaX8MlPMEbcPueMsQ3i7 F7Uo8KI2H5CO23HE31yNT uy1I5lOR8F3Bv TVUimzpfrjkffZK8OWHtJ LImeB36Rp7bjPrhXd8tQQ XgXUZ5EGEobWEzR6WusA1 yOiAjMDAwMDAw N1SacFTeIYipP314WIljB iU3LQGidjNzL2TrSFRhlE tgCqW2v7D1Ty4VADh4JI1 4YB95vZOwz9Z2 fSV3L8EiTOMrdzfkfzuuv NM5IONkLINhjG80Fz8wbK olGx5nUPTiAJR3YPUceKQ qU9PidG7iDxAm LWIyHEZfP6AvuKHnUWbmA 636OZgnBzJ0UFJofxLkN6 ZjFMNccDxvAwV2q7E8Yh1 HQOMkZI06ARL9 pHE7XL29TR07H3JxEbznf GFibGU+PHRhYmxlIHdpZH RoPScxMDAlJyBzdHlsZT0 gYb0zFZInZLNr bWhsbZRoVjNts3luEVLtM CdpYP9jwJcoJ8UcyOL7OU Qof4c5Vn84W72uE8ByxJK +CDIwePL7fUL6 mZ5dAzBvUuG6LEmxO445L qThvEDtRksyh9sbi4vstP a5FxF7YGZmpoPkaKwbGSH 1n5XpYh92X40b IHdpZHRoPSIxNSUiIHZhb Cgjbz8bjV0gLi4+PGNvbC S1aFD1sR6fLtMqVrI8MXw oN969SpRnhUWv Wytdf3iia4zusUl3YzKxT EBfkmCbqOlvJPD2q1EqOq 40P6UajGixq7RoHla1fs5 2eVYyi1E7jVH9 J2KgQMZkjgbegNGkoNrvB J8xLYHleuinVYOixR2vKO FuR7z5NvDlEjR7DRfjO2M ewrK4QLKcvMTl ICxqLPX6T08wf2H2YNPbB MWfATZ6nVK6tR7fjKrdsc ogbGVmdDsgdmVydGljYWw tVXijW558CVEm lDkiCJHzgC8nHAEyjIDkw XmfCE7pEWLybjxpZriUZJ fVUkjwK9jSSHgFMDPZTHA DNJWRUH96LE79 dHRsr3S0dPB4H2NlYLYnu qmgruceyFX8PLQyACLixS 54aAWdXRvxBt5tu0O4w37 9RNBfQBElnC89 Gf4mmYvnRXFxdKCJsU5fa gowf1wcznxcWiSwGYQgDU x2XJn8HDRvfZahHwPxXWV 0EyM3BYI3ySTg aN2wzKpebiuiiH0bKix+M EVhTJthRLh5ZAtzcNT+PH WaHKJ3gEucJGxqAUXfvR7 iXCMdR9n7PlAb PyP8JDgaV4UyCVDwgqlbK g99tZ5zNwUcVvV6BYdnW5 UbldO0RMCfxXFmIGpuSIP 7G35yu7E7UELj ACOvRYH2bIM8rZ8ykSxge jogbGVmdDsgdmVydGljYW egHGmnA050TDOdoRhmJbi 4JFxjHUPyJC20 BK85zVRqw6X5mQZ6R8ItB LPtooevrjcduIO4IZZyFA NoiO88hHUeEShtLv1io5J 4s897DDHcULMw lH28Cg4keTucUFKbvJONm J6dlstzy4gjvkknIkExKA MjXWc0NLq3QGKzwDxtBrY pWXK5IhO6VFT1 nPSbwJ2ecZlteioqfG5bG yc+TUFMRTwvdGQ+PHRkIH G5yAvdUTakZNZooF9jXRS nA9j4DzTuRbR1 INytL1XgZSNjhhlyQc87o F9oMdWcCxC2NDqfQ3Odnv H6KPMuaUHkWXsjQOO1T16 ad7J3FBQyFGIg XBY7wHD3nT8vmCbwdgnzj GVmdDsgdmVydGljYWwtYW dbV702WLBlxLagVv7FKE9 3JP30U1OyRave dGFibGU+PHRhYmxlIHdpZ HRoPScxMDAlJyBzdHlsZT 4zBn2gGAVrIAWlcJbnbSJ sZlYrf9ljYQIb SOusZR3jwDezT5AarEK5Y ORhd2h9Sq11H71cU3WzrB A+TYDtjTJ5iWB5hY3hCjM uEqZ2ZYccI895 KnYemZTiQypex0spf4yuv Ll8DlKgKOFizbQgnGyuAA M2j1XzKq17R75hFWdhBYF oPSIyMCUiIHZh mVupst8pkV9vNa0+PGNvb VN9pTZ9mB0lRiOfEdH2OQ reQ347YoUylQLoBmpuK72 mU3MjqZX+PHRy Fdi3TTHxxNhmOL6zdQRlF EpoJe4mJXS2JbLwFkSuWP piS0LlZVXetenrvqvegNQ 3XANlFTTsvE03 Cf5ccTpjNo8yGFTyRDC2Y NXocJEiF7SygK2aMcMnHN SqRTEpI7MwsWKhLIzhI77 1UKqcSjM7UQPn msQpJ0MzYRDjoSlaGaG7h 0X9Ny2GxSzeiMRjRB0bEu ZyWUz5W7TvGar9CFUkaAn kRV8ouLMeQCma Ik7usAuekVtpVL2jEGRwo hpmy914XjNtt6vlALHhkR YeYSphLMO1Y04mb2C8UYJ aYGOdBYB5jEO0 pJ5zwRkdpmozzKKmhTsff zImtZxdOSrrSCezP245QE UxiQvaArBGUho9L2GsFmu 1ICFihKhxLN4b bLIyPEmzEv5hmAynjDcnX C7iVZEjrjxso315BqOmi5 ojFOXmfFPpZDfjGJJ6U26 co9S7FOSkEBDn GKZ2zNP6xR1fdTxdghokw GVmdDsgdmVydGljYWwtYW znC010AMZahYlrSx7VRqg 3Z2DfJke0YMOo bXwcPB8lfJPwKPknXf6th NskqCpdMB2iXCEaiidro4 49PlHif0ctPSRjnBKtBTg fIXC6P41hw6R4 HCJjNUKiOLL8bDM5lF2gf GlnbjogbGVmdDsgdmVydG rmLJgoCMwhW498YNPrdCz nPlBheWVyOjwv dGQ+BH94jz96O0AlRhpwQ ix4TYZmDZD4rIX5fJ6xFU PvQFazt3N6fES5F0KnyjV gnn1et8dyAMSb ZTo (more content not included)... Normal [facility] Provider Orderson 01-29-2023 Provider Orders [id number] .[id number] Normal [facility] PSA Diagnosticon 01-28-2023 PSA Diagnostic 5.10 ng/mL High 0.00-4.00 [facility] Comment on above: Result Comment: [employer] DxI Fubles Clinical System (Chemiluminescence) Values obtained with different assay methods or kits cannot be used interchangeably. Results cannot be interpreted as absolute evidence of the presence or absence of malignant disease. Performed By: #### [id number] #### [facility] (DEFAULT) [address] [place] [address] POINT OF CARE GLUCOSEon 09-13 Glucose [Mass/Vol] 95 mg/dL Normal 74-106 [facility] Comment on above: Performed By: #### P OCGLUC #### [facility] [address] [place], [place] [address] Dr. Radha Camarena XR Chest 2 Views*on [...] by Roe Garcia on 09/02/2022 1057 Normal [facility] Specialist HEMOGLOBIN A1Con 05-28-2022 Glucose [Mass/Vol] 160 mg/dL Normal [facility] Comment on above: Order Comment: PATIE NT FASTING Performed By: #### H BA1E #### [facility] [address] [place] [address] HbA1c (Bld) [Mass fraction] 7.2 % Abnormal [facility] Comment on above: Order Comment: PATIE NT FASTING Result Comment: Diag nosis of Diabetes-Adults Non-Diabetic: < or = 5.6% Increased risk for developing diabetes: 5.7-6.4% Diagnostic of diabetes: > or = 6.5% . Monitoring of Diabetes Age (y) Therapeutic Goal (%) Adults: >18 <7.0 Pediatrics: 13-18 <7.5 7-12 <8.0 0- 6 7.5-8.5 [place] [employer]. Diabetes Care 33(S1), Oct 2009. Performed By: #### H BA1E #### [facility] [address] [place] [address] BASIC METABOLIC PANELon 08- Anion gap [Moles/Vol] 13 mmol/L Normal 10 - 20 [facility] Comment on above: Order Comment: PATIE NT FASTING Performed By: #### B MP #### [facility] [address] [place] [address] Calcium [Mass/Vol] 9.9 mg/dL Normal 8.6 - 10.6 [facility] Comment on above: Order Comment: PATIE NT FASTING Performed By: #### B MP #### [facility] [address] [place] [address] Chloride [Moles/Vol] 101 mmol/L Normal 98 - 107 [facility] Comment on above: Order Comment: PATIE NT FASTING Performed By: #### B MP #### [facility] [address] [place] [address] Creatinine [Mass/Vol] 1.21 mg/dL Normal 0.50 - 1.30 [facility] Comment on above: Order Comment: PATIE NT FASTING Performed By: #### B MP #### [facility] [address] [place] [address] GFR/1.73 sq M.predicted among non-blacks MDRD (S/P/Bld) [Vol rate/Area] 62 mL/min/{1.73_m2} Normal >90 [facility] Comment on above: Order Comment: PATIE NT FASTING Result Comment: CALC ULATIONS OF ESTIMATED GFR ARE PERFORMED USING THE 2020 CKD-EPI STUDY REFIT EQUATION WITHOUT THE RACE VARIABLE FOR THE IDMS-TRACEABLE CREATININE METHODS. https://jasn.asnjournals.org/content//ASN.32650 30815 Performed By: #### B MP #### [facility] [address] [place] [address] Glucose [Mass/Vol] 88 mg/dL Normal 74 - 99 [facility] Comment on above: Order Comment: PATIE NT FASTING Performed By: #### B MP #### [facility] [address] [place] [address] HCO3 (Bld) [Moles/Vol] 30 mmol/L Normal 21 - 32 [facility] Comment on above: Order Comment: PATIE NT FASTING Performed By: #### B MP #### [facility] [address] [place] [address] Potassium [Moles/Vol] 4.6 mmol/L Normal 3.5 - 5.3 [facility] Comment on above: Order Comment: PATIE NT FASTING Performed By: #### B MP #### [facility] [address] [place] [address] Sodium [Moles/Vol] 139 mmol/L Normal 136 - 145 [facility] Comment on above: Order Comment: PATIE NT FASTING Performed By: #### B MP #### [facility] [address] [place] [address] Urea nitrogen [Mass/Vol] 28 mg/dL High 6 - 23 [facility] Comment on above: Order Comment: PATIE NT FASTING Performed By: #### B MP #### [facility] [address] [place] [address] Blood Pressure Cuff Sizeon 0 05-27-2022 Fall risk assessment a) No falls within the last year -[facility] Work Phone: Tobacco use status CPHS b) No -[facility] Work Phone: Blood Pressure Cuff Size Adult MP-[facility] Work Phone: Hemoglobin A1Con 05-27-2022 Glucose [Mass/Vol] 160 mg/dL [facility] Work Phone: HbA1c (Bld) [Mass fraction] 7.2 % Abnormal [facility] Work Phone: Comment on above: Diagnosis of Diabete s-Adults Non-Diabetic: < or = 5.6% Increased risk for developing diabetes: 5.7-6.4% Diagnostic of diabetes: > or = 6.5%. Monitoring of Diabetes Age (y) Therapeutic Goal (%) Adults: >18 <7.0 Pediatrics: 13-18 <7.5 7-12 <8.0 0- 6 7.5-8.5 [place] [employer]. Diabetes Care 33(S1), Oct 2009. LIPID PANEL (CORONARY RISK 2 )on 05-27-2022 Cholesterol [Mass/Vol] 131 mg/dL Normal 0 - 199 [facility] Comment on above: Order Comment: RICHARD NT [...] dosing. Performed By: #### L IPID #### [facility] [address] [place] [address] Cholesterol in HDL [Mass/Vol] 37.8 mg/dL Abnormal [facility] Comment on above: Order Comment: RICHARD NT FASTING Result Comment: . AGE VERY LOW LOW NORMAL HIGH 0-19 Y < 35 < 40 40-45 ---- 20-24 Y ---- < 40 >45 ---- >24 Y ---- < 40 40-60 >60 . Performed By: #### L IPID #### [facility] [address] [place] [address] Cholesterol in LDL [Mass/Vol] 59 mg/dL Normal 0 - 99 [facility] Comment on above: Order Comment: PATIE NT FASTING Result Comment: . NEAR BORD AGE DESIRABLE OPTIMAL HIGH HIGH VERY HIGH 0-19 Y 0 - 109 --- 110-129 >/= 130 ---- 20-24 Y 0 - 119 --- 120-159 >/= 160 ---- >24 Y 0 - 99 100-129 130-159 160-189 >/=190 . Performed By: #### L IPID #### [facility] [address] [place] [address] Cholesterol in VLDL [Mass/Vol] 34 mg/dL Normal 0 - 40 [facility] Comment on above: Order Comment: PATIE NT FASTING Performed By: #### L IPID #### [facility] [address] [place] [address] Cholesterol.total/Chol esterol in HDL [Mass ratio] 3.5 {ratio} Normal [facility] Comment on above: Order Comment: PATIE NT FASTING Result Comment: REF VALUES DESIRABLE < 3.4 HIGH RISK > 5.0 Performed By: #### L IPID #### [facility] [address] [place] [address] Triglyceride [Mass/Vol] 169 mg/dL High 0 - 149 [facility] Comment on above: Order Comment: PATIE NT [...] Performed By: #### L IPID #### [facility] [address] [place] [address] Laboratory - Chemistry and C hemistry - challengeon 05-27-2022 Anion gap [Moles/Vol] 13 mmol/L 10 - 20 [facility] Work Phone: Calcium [Mass/Vol] 9.9 mg/dL 8.6 - 10.6 [facility] Work Phone: Chloride [Moles/Vol] 101 mmol/L 98 - 107 [facility] Work Phone: CO2 [Moles/Vol] 30 mmol/L 21 - 32 [facility] Work Phone: Creatinine [Mass/Vol] 1.21 mg/dL See Below [facility] Work Phone: [phone] Comment on above: Reference Range: 0.5 0 - 1.30 Glucose [Mass/Vol] 88 mg/dL 74 - 99 [facility] Work Phone: Potassium [Moles/Vol] 4.6 mmol/L 3.5 - 5.3 [facility] Work Phone: [phone] Sodium [Moles/Vol] 139 mmol/L 136 - 145 [facility] Work Phone: Urea nitrogen [Mass/Vol] 28 mg/dL above high threshold 6 - 23 [facility] Work Phone: Lipid Panelon 05-27-2022 Cholesterol [Mass/Vol] 131 mg/dL 0 - 199 [facility] Work Phone: Comment on above: . AGE [...] guidelines reference: NCEP ATPIII Guidelines, WALTER 2001, 258:[id number]. Venipuncture immediately after or during the administration of Metamizole may lead to falsely low results. Testing should be performed immediately prior to Metamizole dosing. Cholesterol in HDL [Mass/Vol] 37.8 mg/dL Abnormal [facility] Work Phone: Comment on above: . AGE VERY LOW LOW N ORMAL HIGH 0-19 Y < 35 < 40 40-45 ---- 20-24 Y ---- < 40 >45 ---- >24 Y ---- < 40 40-60 >60. Cholesterol in LDL [Mass/Vol] 59 mg/dL 0 - 99 [facility] Work Phone: Comment on above: . NEAR BORD AGE ANNE RABLE OPTIMAL HIGH HIGH VERY HIGH 0-19 Y 0 - 109 --- 110-129 >/= 130 ---- 20-24 Y 0 - 119 --- 120-159 >/= 160 ---- >24 Y 0 - 99 100-129 130-159 160-189 >/=190. Cholesterol.total/Chol esterol in HDL [Mass ratio] 3.5 {ratio} [facility] Work Phone: Comment on above: REF VALUESDESIRABLE < 3.4HIGH RISK > 5.0 Triglyceride [Mass/Vol] 169 mg/dL above high threshold 0 - 149 [facility] Work Phone: Comment on above: . AGE [...] 34 mg/dL 0 - 40 [facility] Work Phone: No Panel Informationon 05-27 62 {mL/min/1.73m2} >90 [facility] Work Phone: Comment on above: CALCULATIONS OF ARISTIDES MATED GFR ARE PERFORMED USING THE 2020 CKD-EPI STUDY REFIT EQUATION WITHOUT THE RACE VARIABLE FOR THE IDMS-TRACEABLE CREATININE METHODS.https://jasn.asnjournals.org/content/early/A SN.4122479996 Office Visit (Internal Medic ine)on 05-27-2022 Follow-up [...] mellitus; GAVIN = N; Verified Transmission to [id number]; Last Updated By: Pratima Callahan; 05/27/2022 10:05:07 AM Continue: FreeStyle InsuLinx System w/Device Kit; USE DIRECTED Rx By: Poli Mercado; Dispense: 0 Days ; #:1 Kit; Refill: 0;For: Diabetes mellitus; GAVIN = N; Verified Transmission to [facility] [place] [id number]; Last Updated By: Pratima Callahan; 05/27/2022 10:05:07 AM Continue: FreeStyle InsuLinx Test In Vitro Strip; TEST ONCE DAILY *E11.9* Rx By: Ploi Mercado; Dispense: 90 Days ; #:100 Strip; Refill: 3;For: Diabetes mellitus; GAVIN = N; Verified Transmission to [id number]; Last Updated By: Pratima Callahan; 05/27/2022 10:05:07 AM Continue: Glimepiride 1 MG Oral Tablet; TAKE 1 TABLET BY MOUTH EVERY DAY Rx By: Poli Mercado; Dispense: 90 Days ; #:90 Tablet; Refill: 2;For: Diabetes mellitus; GAVIN = N; Verified Transmission to [id number]; Last Updated By: Pratima Callahan; 05/27/2022 10:05:07 AM Continue: Lantus SoloStar 100 UNIT/ML Subcutaneous Solution Pen-injector; INJECT 20 UNITS SUBCUTANEOUSLY EVERY DAY OR AMOUNT DIRECTED Rx By: Poli Mercado; Dispense: 0 Days ; #:1 X 5 x 3 ML Pen; Refill: 1;For: Diabetes mellitus; GAVIN = N; Verified Transmission to [id number]; Last Updated By: Pratima Callahan; 05/27/2022 10:05:07 AM 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 Hemoglobin A1C; Status:In Progress - Specimen/Data Collected; Done: 27May2022 Perform:Lab Services - Lab To Draw (Blood Test); Due:25Aug2022;Ordered ; For: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; Ordered By:Poli Mercado; Elevated PSA Prostate Specific Antigen; Status:In Progress - Specimen/Data Collected; Done: 27May2022 Perform:Lab Services - Lab To Draw (Blood Test); Due:25Aug2022;Ordered ; For:Elevated PSA; Ordered By:Poli Mercado; Hyperlipidemia Continue: Atorvastatin Calcium 20 MG Oral Tablet; TAKE 1 TABLET BY MOUTH EVERY DAY Rx By: Poli Mercado; Dispense: 90 Days ; #:90 Tablet; Refill: 3;For: Hyperlipidemia; GAVIN = N; Verified Transmission to [facility] #[id number]; Last Updated By: Pratima Callahan; 05/27/2022 10:05:07 AM Hypertension Start: Lisinopril 20 MG Oral Tablet; TAKE 1 TABLET DAILY Rx By: Poli Mercado; Dispense: 90 Days ; #:90 Tablet; Refill: 3;For: Hypertension; GAVIN = N; Verified Transmission to [id number]; Last Updated By: Alesha Claudio; 05/27/2022 10:28:27 AM Basic Metabolic Panel; Status:In Progress - Specimen/Data Collected; Done: 27May2022 Perform:Lab Services - Lab To Draw (Blood Test); Due:25Aug2022;Ordered ; For:Hypertension; Ordered By:Poli Mercado; Continue: amLODIPine Besylate 10 MG Oral Tablet; TAKE 1 TABLET BY MOUTH EVERY DAY Rx By: Poli Mercado; Dispense: 90 Days ; #:90 Tablet; Refill: 2;For: Hypertension; GAVIN = N; Verified Transmission to [id number]; Last Updated By: Pratima Callahan; 05/27/2022 10:05:07 AM Lipid Panel; Status:In Progress - Specimen/Data Collected; Done: [id number] Perform:Lab Services - Lab To Draw (Blood Test); Due:25Aug2022;Ordered ; For:Hypertension; Ordered By:Poli Mercado; Continue: Clopidogrel Bisulfate 75 MG Oral Tablet; TAKE 1 TABLET BY MOUTH EVERY DAY Rx By: Poli Mercado; Dispense: 90 Days ; #:90 Tablet; Refill: 3;For: Hypertension; GAVIN = N; Verified Transmission to [id number]; Last Updated By: Pratima Callahan; 05/27/2022 10:05:07 AM Unlinked Stop: Lisinopril 10 MG Oral Tablet Rx By: NICHOL; Dispense: 90 Days ; #:90; Refill: 0; GAVIN = N; Record; Last Updated By: Poli Mercado; 05/27/2022 10:27:56 AM Continue: Famotidine 20 MG Oral Tablet Rx By: RASHIDA; Dispense: 90 Days ; #:90; Refill: 0; [...] Last Updated (more content not included)... Normal [facility] PROSTATE SPECIFIC AGon 05-27 Prostate specific Ag [Mass/Vol] 4.54 ng/mL High 0.00 - 4.00 [facility] Comment on above: Order Comment: RICHARD NT FASTING Result Comment: The FDA requires that the method used for PSA assay be reported to the physician. Values obtained with different assay methods must not be used interchangeably. This test was performed at [facility] using the Siemens Atellica PSA method, which is a sandwich immunoassay using chemiluminescence for quantitation. The assay is approved for measurement of prostate-specific antigen (PSA) in serum and may be used in conjunction with a digital rectal examination in men 50 years and older as an aid in detection of prostate cancer. 3-Edzzw-zstfbaear inhibitors (e.g. Proscar, Finasteride, Avodart, Dutasteride and Varsha) for the treatment of BPH have been shown to lower PSA levels by an average of 50% after 6 months of treatment. Performed By: #### P SA #### [facility] [address] [place] [address] Prostate Specific Antigenon 05-27-2022 Prostate specific Ag [Mass/Vol] 4.54 ng/mL above high threshold See Below [facility] Work Phone: Comment on above: Reference Range: 0.0 0 - 4.00The FDA requires that the method used for PSA assay be reported to the physician. Values obtained with different assay methods must not be used interchangeably. This test was performed at [facility] using the SiemensAtellica PSA method, which is a sandwich immunoassay using chemiluminescence for quantitation. The assay is approvedfor measurement of prostate-specific antigen (PSA) in serum and may be used in conjunction with a digital rectalexamination in men 50 years and older as an aid in detection of prostate cancer. 0-Vrlsc-ficaiisfm inhibitors (e.g. Proscar, Finasteride, Avodart, Dutasteride and Varsha) for the treatment of BPH have been shown to lower PSA levels by an average of 50% after 6 months of treatment. Prostatic Specific Antigen, Totalon 01-16-2022 TPSA 4.280 ng/mL High <4.000 [facility] Comment on above: Result Comment: PSA Test Method: ECLIA/Dung e 601 Performed By: #### P SA #### [facility] [address], [place] [id number] BUNon 10-08-2021 Urea nitrogen [Mass/Vol] 31 mg/dL High 7-25 [facility] Comment on above: Performed By: #### C GUSTAVO, BUN #### [facility] [address], [place] [id number] Creatinineon 10-08-2021 Creatinine [Mass/Vol] 1.3 mg/dL Normal 0.7-1.4 [facility] Comment on above: Performed By: #### C GUSTAVO, BUN #### [facility] [address], [place] [id number] eGFRAA 66 mL/min/1.73m2 Normal >60 [facility] Special[facility] Comment on above: Performed By: #### C GUSTAVO, BUN #### [facility] [address], [place] [id number] eGFRNAA 54 mL/min/1.73m2 Low >60 [facility] Special[facility] Comment on above: Performed By: #### C GUSTAVO, BUN #### [facility] [address], [place] [id number] Hemoglobin A1Con 10-08-2021 EAG 162.81 Normal [facility] Comment on above: Performed By: #### A 1C #### [facility] [address], [place] [id number] HbA1c (Bld) [Mass fraction] 7.3 % High 4.0-6.0 [facility] Comment on above: Performed By: #### A 1C #### [facility] [address], [place] [id number] Hemoglobin A1Con 09-05-2021 Glucose [Mass/Vol] 154 mg/dL [facility] Work Phone: HbA1c (Bld) [Mass fraction] 7.0 % Abnormal [facility] Work Phone: Comment on above: Diagnosis of Diabete s-Adults Non-Diabetic: < or = 5.6% Increased risk for developing diabetes: 5.7-6.4% Diagnostic of diabetes: > or = 6.5%. Monitoring of Diabetes Age (y) Therapeutic Goal (%) Adults: >18 <7.0 Pediatrics: 13-18 <7.5 7-12 <8.0 0- 6 7.5-8.5 [place] [employer]. Diabetes Care 33(S1), Oct 2009. Laboratory - Chemistry and C hemistry - challengeon 09-05-2021 Anion gap [Moles/Vol] 12 mmol/L 10 - 20 [facility]- [facility] n Work Phone: Calcium [Mass/Vol] 10.0 mg/dL 8.6 - 10.6 [facility] n Work Phone: Chloride [Moles/Vol] 103 mmol/L 98 - 107 -S [facility] Work Phone: CO2 [Moles/Vol] 32 mmol/L 21 - 32 [facility] Work Phone: Creatinine [Mass/Vol] 1.50 mg/dL above high threshold See Below [facility] n Work Phone: Comment on above: Reference Range: 0.5 0 - 1.30 Glucose [Mass/Vol] 109 mg/dL above high threshold 74 - 99 [facility] n Work Phone: [phone] Potassium [Moles/Vol] 5.2 mmol/L 3.5 - 5.3 [facility]- [facility] Work Phone: Sodium [Moles/Vol] 142 mmol/L 136 - 145 [facility] Work Phone: Urea nitrogen [Mass/Vol] 26 mg/dL above high threshold 6 - 23 [facility] Work Phone: [phone] Lipid Panelon 09-05-2021 Cholesterol [Mass/Vol] 141 mg/dL 0 - 199 [employer] [facility] Work Phone: Comment on above: . AGE [...] dosing. Cholesterol in HDL [Mass/Vol] 48.3 mg/dL [employer] [facility] Work Phone: Comment on above: . AGE VERY LOW LOW N ORMAL HIGH 0-19 Y < 35 < 40 40-45 ---- 20-24 Y ---- < 40 >45 ---- >24 Y ---- < 40 40-60 >60. Cholesterol in LDL [Mass/Vol] 75 mg/dL 0 - 99 [employer] [facility] Work Phone: Comment on above: . NEAR BORD AGE ANNE RABLE OPTIMAL HIGH HIGH VERY HIGH 0-19 Y 0 - 109 --- 110-129 >/= 130 ---- 20-24 Y 0 - 119 --- 120-159 >/= 160 ---- >24 Y 0 - 99 100-129 130-159 160-189 >/=190. Cholesterol.total/Chol esterol in HDL [Mass ratio] 2.9 {ratio} [employer] [facility] Work Phone: Comment on above: REF VALUESDESIRABLE < 3.4HIGH RISK > 5.0 Triglyceride [Mass/Vol] 87 mg/dL 0 - 149 [employer] [facility] Work Phone: Comment on above: . AGE [...] Lipid Panel 17 mg/dL 0 - 40 [facility] Work Phone: No Panel Informationon 09-05 54 {mL/min/1.73m2} Abnormal >60 [facility] Work Phone: Comment on above: CALCULATIONS OF ARISTIDES MATED GFR ARE PERFORMED USING THE MDRD STUDY EQUATION FOR THE IDMS-TRACEABLE CREATININE METHODS. CLIN CHEM 2007;53:766-72 45 {mL/min/1.73m2} Abnormal >60 [facility] Work Phone: Office Visit (Internal Medic [...] mellitus; GAVIN = N; Verified Transmission to [facility] #[id number]; Last Updated By: Pratima Callahan; 09/05/2021 10:22:32 AM Basic Metabolic Panel; Status:In Progress - Specimen/Data Collected; Done: 05Sep2021 Perform:Lab Services - Lab To Draw (Blood Test); Due:04Dec2021;Ordered ; For:Diabetes mellitus; Ordered By:Poli Mercado; Continue: FreeStyle [employer] System w/Device Kit; USE DIRECTED Rx By: Poli Mercado; Dispense: 0 Days ; #:1 Kit; Refill: 0;For: Diabetes mellitus; GAVIN = N; Verified Transmission to [id number]; Last Updated By: Pratima Callahan; 09/05/2021 10:22:32 AM Continue: FreeStyle [employer] Test In Vitro Strip; TEST ONCE DAILY *E11.9* Rx By: Poli Mercado; Dispense: 90 Days ; #:100 Strip; Refill: 3;For: Diabetes mellitus; GAVIN = N; Verified Transmission to [facility][id number]; Last Updated By: Pratima Callahan; 09/05/2021 10:22:32 AM Continue: Glimepiride 1 MG Oral Tablet; TAKE 1 TABLET BY MOUTH EVERY DAY Rx By: Poli Mercado; Dispense: 90 Days ; #:90 Tablet; Refill: 2;For: Diabetes mellitus; GAVIN = N; Verified Transmission to [id number]; Last Updated By: Pratima Callahan; 09/05/2021 10:22:32 AM Continue: Lantus SoloStar 100 UNIT/ML Subcutaneous Solution Pen-injector; INJECT 20 UNITS SUBCUTANEOUSLY EVERYDAY Rx By: Poli Mercado; Dispense: 0 Days ; #:1 X 5 x 3 ML Pen; Refill: 1;For: Diabetes mellitus; GAVIN = N; [id number]; Last Updated By: Pratima Callahan; 09/05/2021 [...] Services - Lab To Draw (Blood Test); Due:04Dec2021;Ordered ; For: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; Ordered By:Poli Mercado; Lipid Panel; Status:In Progress - Specimen/Data Collected; Done: 05Sep2021 Perform:Lab Services - Lab To Draw (Blood Test); Due:[id number];Ordered ; For: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; Ordered By:Poli Mercado; Hyperlipidemia Continue: Atorvastatin Calcium 20 MG Oral Tablet; TAKE 1 TABLET BY MOUTH EVERY DAY Rx By: Poli Mercado; Dispense: 90 Days ; #:90 Tablet; Refill: 3;For: Hyperlipidemia; GAVIN = N; Verified Transmission to [id number]; Last Updated By: Pratima Callahan; 09/05/2021 10:22:32 AM Hypertension Continue: amLODIPine Besylate 10 MG Oral Tablet; TAKE 1 TABLET BY MOUTH EVERY DAY Rx By: Poli Mercado; Dispense: 90 Days ; #:90 Tablet; Refill: 2;For: Hypertension; GAVIN = N; Verified Transmission to [id number]; Last Updated By: Pratima Callahan; 09/05/2021 10:22:32 AM Continue: Clopidogrel Bisulfate 75 MG Oral Tablet; TAKE 1 TABLET BY MOUTH EVERY DAY Rx By: Poli Mercado; Dispense: 90 Days ; #:90 Tablet; Refill: 3;For: Hypertension; GAVIN = N; Verified Transmission to [id number]; Last Updated By: Pratima Callahan; 09/05/2021 [...] follow dm//bp History of Present Illnessmoved to [facility] town near [place] had flu sjot/ had covid booster eye.. dr. mg sommer in [place] hg 120 s no log here, agent lantus plus glimep has a pcp in [facility] no hypos feels well drove here from [facility] this am will travel to [place] this winter Review of Systems Constitutional: no [...] (I10) Obes (more content not included)... Normal [facility] Vital Signs Date Time Vital Sign Value Performing Clinician Facility 10-25-2024 10:13-0500 Body height 170.2 cm Tom Field [employer] Phone: [facility] [employer] 10-25-2024 10:13-0500 Body temperature 97.3 [degF] Tom [employer] Phone: [facility] [employer] 10-25-2024 10:13-0500 Diastolic blood pressure 60 mm[Hg] Sydney Seed [employer] Phone: [facility] [employer] 10-25-2024 10:13-0500 Heart rate 62 /min Tom [employer] Phone: [facility] [employer] 10-25-2024 10:13-0500 SaO2% (BldA) [Mass fraction] 97 % Tom [employer] Phone: [facility] [employer] 10-25-2024 10:13-0500 Systolic blood pressure 122 mm[Hg] Tom [employer] Phone: [facility] [employer] 10-05-2024 07:56-0500 Body height 170.2 cm Sunny Vasquez [employer] Phone: [facility] [employer] 10-05-2024 07:56-0500 Body mass index (BMI) [Ratio] 29.76 kg/m2 Sunny [employer] Phone: [facility] [employer] 10-05-2024 07:56-0500 Body weight 86.18 kg Sunny Phank DO Work Phone: [facility] 09-06-2024 10:17-0500 Body height 170.2 cm Autumn Valencia PA Work Phone: [facility] 09-06-2024 10:17-0500 Body mass index (BMI) [Ratio] 29.76 kg/m2 Autumn Valencia PA Work Phone: [facility] 09-06-2024 10:17-0500 Body weight 86.18 kg Autumn Valencia PA Work Phone: [facility] 09-06-2024 10:17-0500 Diastolic blood pressure 74 mm[Hg] Autumn Valencia PA Work Phone: [facility] 09-06-2024 10:17-0500 Heart rate 66 /min Autumn Valencia PA Work Phone: [facility] 09-06-2024 10:17-0500 Respiratory rate 16 /min Autumn Valencia PA Work Phone: [facility] 09-06-2024 10:17-0500 SaO2% (BldA) [Mass fraction] 95 % Autumn Valencia PA Work Phone: [facility] 09-06-2024 10:17-0500 Systolic blood pressure 130 mm[Hg] Autumn Valencia PA Work Phone: [facility] 08-10-2024 09:10-0400 Body height 170.2 cm Sunny Phank DO Work Phone: [facility] 08-10-2024 09:10-0400 Body mass index (BMI) [Ratio] 30.07 kg/m2 Sunny Phank DO Work Phone: [facility] 08-10-2024 09:10-0400 Body weight 87.09 kg Sunny Phank DO Work Phone: [facility] 06-28-2024 15:12-0400 Body height 167.64 cm DO Benedicto Field Work Phone: [facility] 06-28-2024 15:12-0400 Body mass index (BMI) [Ratio] 30.2 kg/m2 DO Benedicto Field Work Phone: [facility] 06-28-2024 15:12-0400 Body weight 84.82 kg DO Benedicto Field Work Phone: [facility] 06-28-2024 15:12-0400 Diastolic blood pressure 61 mm[Hg] DO Benedicto Field Work Phone: [facility] 06-28-2024 15:12-0400 Heart rate 78 /min DO Benedicto Field Work Phone: [facility] 06-28-2024 15:12-0400 SaO2% (BldA) [Mass fraction] 98 % DO Benedicto Field Work Phone: [facility] 06-28-2024 15:12-0400 Systolic blood pressure 102 mm[Hg] DO Benedicto Field Work Phone: [facility] 06-18-2024 12:30-0400 Body height 172.7 cm Tom Field DO Work Phone: [facility] 06-18-2024 12:30-0400 Body mass index (BMI) [Ratio] 28.74 kg/m2 Tom Field DO Work Phone: [facility] 06-18-2024 12:30-0400 Body temperature 97.39 [degF] Tom Field DO Work Phone: [facility] 06-18-2024 12:30-0400 Body weight 85.73 kg Tom Field DO Work Phone: [facility] 06-18-2024 12:30-0400 Diastolic blood pressure 62 mm[Hg] Tom Graffan DO Work Phone: [facility] 06-18-2024 12:30-0400 Heart rate 60 /min Tom Field DO Work Phone: [facility] 06-18-2024 12:30-0400 SaO2% (BldA) [Mass fraction] 100 % Tom Field DO Work Phone: [facility] 06-18-2024 12:30-0400 Systolic blood pressure 118 mm[Hg] Tom Field DO Work Phone: [facility] 06-15-2024 11:24-0400 Body height 170.18 cm DO Benedicto Field Work Phone: [facility] 06-15-2024 11:24-0400 Body mass index (BMI) [Ratio] 30.4 kg/m2 DO Benedicto Field Work Phone: [facility] 06-15-2024 11:24-0400 Body weight 87.99 kg DO Benedicto Field Work Phone: [facility] 06-15-2024 11:24-0400 Diastolic blood pressure 62 mm[Hg] DO Benedicto Field Work Phone: [facility] 06-15-2024 11:24-0400 Heart rate 61 /min DO Benedicto Field Work Phone: [facility] 06-15-2024 11:24-0400 Respiratory rate 18 /min DO Benedicto Field Work Phone: [facility] 06-15-2024 11:24-0400 SaO2% (BldA) [Mass fraction] 98 % DO Benedicto Field Work Phone: [facility] 06-15-2024 11:24-0400 Systolic blood pressure 120 mm[Hg] DO Benedicto Field Work Phone: [facility] 06-15-2024 08:34-0400 Body height 172.7 cm Fer García [employer] Work Phone: [facility] 06-15-2024 08:34-0400 Body mass index (BMI) [Ratio] 29.5 kg/m2 Fer García [employer] Work Phone: [facility] 06-15-2024 08:34-0400 Body weight 88 kg Fer García [employer] TECHNIC[employer] Work Phone: [facility] 06-15-2024 08:34-0400 Diastolic blood pressure 60 mm[Hg] Fer García [employer] TECHNIC[employer] Work Phone: [facility] 06-15-2024 08:34-0400 Heart rate 75 /min Fer García [employer] TECH[employer]IC[employer] Work Phone: [facility] 06-15-2024 08:34-0400 Systolic blood pressure 126 mm[Hg] Fer García [employer]CHNIC[employer] Work Phone: [facility] 06-07-2024 10:03-0400 Body height 172.7 cm Tom Field DO Work Phone: [facility] 06-07-2024 10:03-0400 Body mass index (BMI) [Ratio] 29.32 kg/m2 Tom Field DO Work Phone: [facility] 06-07-2024 10:03-0400 Body temperature 97.3 [degF] Tom Field DO Work Phone: [facility] 06-07-2024 10:03-0400 Body weight 87.45 kg Tom Field DO Work Phone: [facility] 06-07-2024 10:03-0400 Diastolic blood pressure 62 mm[Hg] Tom Field DO Work Phone: [facility] 06-07-2024 10:03-0400 Heart rate 61 /min Tom Field DO Work Phone: [facility] 06-07-2024 10:03-0400 SaO2% (BldA) [Mass fraction] 97 % Tom Field DO Work Phone: [facility] 06-07-2024 10:03-0400 Systolic blood pressure 118 mm[Hg] Tom Field DO Work Phone: [facility] 06-01-2024 10:44-0400 Body height 167.64 cm DO Benedicto Field Work Phone: [facility] 06-01-2024 10:44-0400 Body mass index (BMI) [Ratio] 31.4 kg/m2 DO Benedicto Field Work Phone: [facility] 06-01-2024 10:44-0400 Body temperature 97.8 [degF] DO Benedicto Field Work Phone: [facility] 06-01-2024 10:44-0400 Body weight 88.45 kg DO Benedicto Field Work Phone: [facility] 06-01-2024 10:44-0400 Diastolic blood pressure 76 mm[Hg] DO Benedicto Field Work Phone: [facility] 06-01-2024 10:44-0400 Heart rate 68 /min DO Benedicto Field Work Phone: [facility] 06-01-2024 10:44-0400 Respiratory rate 16 /min DO Benedicto Field Work Phone: [facility] 06-01-2024 10:44-0400 SaO2% (BldA) [Mass fraction] 98 % DO Benedicto Field Work Phone: [facility] 06-01-2024 10:44-0400 Systolic blood pressure 122 mm[Hg] DO Benedicto Field Work Phone: [facility] 02-09-2024 10:28-0400 Diastolic blood pressure 62 mm[Hg] DO Benedicto Field Work Phone: [facility] 02-09-2024 10:28-0400 Heart rate 62 /min DO Benedicto Field Work Phone: [facility] 02-09-2024 10:28-0400 Respiratory rate 18 /min DO Benedicto Field Work Phone: [facility] 02-09-2024 10:28-0400 SaO2% (BldA) [Mass fraction] 98 % DO Benedicto Field Work Phone: [facility] 02-09-2024 10:28-0400 Systolic blood pressure 120 mm[Hg] DO Benedicto Field Work Phone: [facility] 02-09-2024 07:44-0400 Body height 172.72 cm DO Benedicto Field Work Phone: [facility] 02-09-2024 07:44-0400 Body weight 87.09 kg DO Benedicto Field Work Phone: [facility] 07-02-2023 14:00-0400 Body height 172.72 cm Lili Gonsales Other [facility] [employer] Other 07-02-2023 14:00-0400 Body mass index (BMI) [Ratio] 31.17 kg/m2 Lili Gonsales Other [employer] Other 07-02-2023 14:00-0400 Body weight 92.99 kg Lili Gonsales Other [employer] Other 07-02-2023 14:00-0400 Diastolic blood pressure 56 mm[Hg] Lili Gonsales Other [employer] Other 07-02-2023 14:00-0400 SaO2% (BldA) [Mass fraction] 61 % Lili Gonsales Other [employer] Other 07-02-2023 14:00-0400 Systolic blood pressure 137 mm[Hg] Lili Gonsales Other [employer] Other 05-27-2022 10:03-0400 Body height 172.72 cm Ashlee Henry Work Phone: [facility] Work Phone: 05-27-2022 10:03-0400 Body mass index (BMI) [Ratio] 31.78 kg/m2 Ashlee Henry Work Phone: [employer] [facility] Work Phone: 05-27-2022 10:03-0400 Body surface area Derived from formula 2.08 m2 Ashlee Thorne Kodz Work Phone: [employer] [facility] Work Phone: 05-27-2022 10:03-0400 Body temperature 96.4 [degF] Ashlee Thorne Kodtarah Work Phone: [employer] [facility] Work Phone: 05-27-2022 10:03-0400 Body weight 94.8 kg Ashlee Thorne Kodz Work Phone: [employer] [facility] Work Phone: 05-27-2022 10:03-0400 Diastolic blood pressure 62 mm[Hg] Ashlee Thorne Kodz Work Phone: [employer] [facility] Work Phone: 05-27-2022 10:03-0400 Heart rate 70 /min Ashlee Thorne Kodtarah Work Phone: [employer] [facility] Work Phone: 05-27-2022 10:03-0400 SaO2% (BldA) [Mass fraction] 98 % Ashlee Thorne Kodz Work Phone: [employer] [facility] Work Phone: 05-27-2022 10:03-0400 Systolic blood pressure 140 mm[Hg] Ashlee C Kodz Work Phone: [employer] [facility] Work Phone: Encounters Encounter Date Encounter Type Care Provider Facility Start: 11-22-2024 End: 11-22-2024 ambulatory TOM FIELD Not Available Start: 10-25-2024 End: 10-25-2024 Bamboo flowsheet Tom Field DO Work Phone: [facility] 230 Start: 10-25-2024 End: 10-25-2024 Bamboo flowsheet Tom Field DO [facility] Start: 10-25-2024 End: 10-25-2024 Office outpatient visit 25 minutes Tom Field DO 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, unspecified vessel or lesion type, unspecified whether [place] or transplanted heart (CMS/HCC) (Primary Dx); Type 2 diabetes mellitus with diabetic chronic kidney disease ([facility]/HCC); Chronic kidney disease, stage 3b (HCC) ([facility]/HCC); Sick sinus syndrome ([facility]/HCC); Hypertensive heart disease with heart failure ([facility]/HCC); Hypertension, unspecified type ([facility]/HCC); Mixed hyperlipidemia ([facility]/HCC); Stage 3a chronic kidney disease (HCC) ([facility]); Type 2 diabetes mellitus with hyperglycemia, without long-term current use of insulin ([facility]); Raynaud's disease without gangrene Start: 10-25-2024 End: 10-25-2024 ambulatory TOM FIELD Not Available Start: 10-21-2024 End: 10-21-2024 Refill Frankie Cordon LPN Work Phone: [facility] 230 Comment on above: Myalgia Start: 10-08-2024 End: 10-08-2024 ambulatory Tom Conde Facility:[facility] Start: 10-05-2024 End: 10-05-2024 Bamboo flowsheet Sunny Vasquez DO Work Phone: [facility] Start: 10-05-2024 End: 10-05-2024 Bamboo flowsheet Sunny Vasquez DO Work Phone: [facility] Start: 10-05-2024 End: 10-05-2024 Office outpatient visit 25 minutes Sunny Vasquez DO Work Phone: [facility] Comment on above: Obstructive sleep ap lauri (Primary Dx); Intolerance of continuous positive airway pressure (CPAP) ventilation Start: 10-05-2024 End: 10-05-2024 ambulatory SUNNY Yusuf CHANDLERLUCIUS Not Available Start: 10-04-2024 End: 10-04-2024 ambulatory Tom Conde Facility:[facility] Start: 09-29-2024 End: 09-29-2024 Bamboo flowsheet Sarah Connell DPM Work Phone: [facility] Start: 09-29-2024 End: 09-29-2024 Bamboo flowsheet Sarah Connell DPM Work Phone: [facility] Start: 09-29-2024 End: 09-29-2024 Patient encounter procedure Sarah Connell DPM Work Phone: [facility] Comment on above: Onychomycosis (Prima ry Dx); Type II diabetes mellitus with neurological manifestations (CMS/HCC); Pain in both feet Start: 09-29-2024 End: 09-29-2024 ambulatory SARAH CONNELL Not Available Start: 09-27-2024 End: 09-27-2024 ambulatory SUNNY Yusuf PEDRO Not Available Start: 09-27-2024 End: 09-27-2024 Patient encounter procedure Sunny Yusuf Chandlernannettelupe DO Work Phone: [facility] EXT DEP Comment on above: LOPEZ (obstructive sle ep apnea) (Primary Dx) Start: 09-23-2024 End: 09-23-2024 Telephone encounter Dwight Anand MA [facility] NEUROLOGY Start: 09-16-2024 End: 09-16-2024 ambulatory Robert Lockett Facility:[facility] Start: 09-06-2024 End: 09-06-2024 Bamboo flowsheet Autumn BLACKBURN Work Phone: [facility] [address] [facility] Start: 09-06-2024 End: 09-06-2024 Bamboo flowsheet Autumn BLACKBURN Work Phone: [facility] [address] Start: 09-06-2024 End: 09-06-2024 Office outpatient visit 25 minutes Autumn Hill PA Work Phone: [facility] [place] [address] Comment on above: 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) (Primary Dx); Obstructive sleep apnea syndrome Start: 09-06-2024 End: 09-06-2024 ambulatory AUTUMN VALENCIA Not Available Start: 08-26-2024 End: 08-26-2024 Refill Tom Field DO Work Phone: [facility] [address] Comment on above: Myalgia Onychomycosis Start: 08-23-2024 End: 08-23-2024 Telephone encounter Tom Talley Myraleighton DO Work Phone: [facility] [address] Start: 08-10-2024 End: 08-10-2024 Office outpatient new 45 minutes Sunny Vasquez DO Work Phone: [facility] [place] Comment on above: Obstructive sleep ap lauri (Primary Dx); Intolerance of continuous positive airway pressure (CPAP) ventilation Start: 08-10-2024 End: 08-10-2024 ambulatory SUNNY VASQUEZ Not Available Start: 07-18-2024 End: 07-19-2024 Refill Tom Talley Myraleighton DO Work Phone: [facility] [address] Comment on above: Myalgia Start: 07-07-2024 End: 07-07-2024 Patient encounter procedure DO Benedicto Field Work Phone: [facility] Start: 07-07-2024 End: 07-07-2024 ambulatory DO Benedicto Field Work Phone: [facility] Work Phone: Start: 06-30-2024 End: 06-30-2024 ambulatory GISELLE GANDARA MD Facility:[id number] Start: 06-30-2024 End: 06-30-2024 Patient encounter procedure Sarah NOGUERAM Work Phone: [facility] Comment on above: Onychomycosis (Prima ry Dx); Type II diabetes mellitus with neurological manifestations (CMS/HCC) Start: 06-30-2024 End: 06-30-2024 ambulatory SARAH H ANKIT Not Available Start: 06-28-2024 End: 06-28-2024 ambulatory DO Benedicto Field Work Phone: [facility] Work Phone: Start: 06-28-2024 End: 06-28-2024 Patient encounter procedure DO Benedicto Field Work Phone: [facility] Sleep Lab Work Phone: Start: 06-27-2024 End: 06-27-2024 ambulatory Valentino FIELD DO Facility:[facility] Start: 06-18-2024 End: 06-18-2024 Bamboo flowsheet Tom Fiedl DO Work Phone: [facility] [address] Start: 06-18-2024 End: 06-18-2024 Bamboo flowsheet Tom Field DO Work Phone: [facility] [address] Start: 06-18-2024 End: 06-18-2024 Office outpatient visit 25 minutes Tom Rodriguezleighton DO Work Phone: [facility] [address] Comment on above: 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, unspecified vessel or lesion type, unspecified whether [place] or transplanted heart ([facility]/HCC) (Primary Dx); Type 2 diabetes mellitus without complication, with long-term current use of insulin ([facility]); Diabetic nephropathy associated with type 2 diabetes mellitus (HCC) ([facility]); Mixed hyperlipidemia ([facility]/HCC); Hypertension, unspecified type ([facility]/HCC); Hypothyroidism, unspecified type ([facility]/HCC) Start: 06-18-2024 End: 06-18-2024 ambulatory TOM FIELD Not Available Start: 06-15-2024 End: 06-15-2024 Bamboo flowsheet Fer García SOLAR LAB TECHNICIAN Work Phone: [facility] [employer] [address] Start: 06-15-2024 End: 06-15-2024 Bamboo flowsheet Fer García SOLAR LAB TECHNICIAN Work Phone: [facility] [place] [address] Start: 06-15-2024 End: 06-16-2024 Orders Only Tom Mayank Field DO Work Phone: [facility] External Department Unsolicited Start: 06-15-2024 End: 06-15-2024 ambulatory DO Benedicto Field Work Phone: [facility] Work Phone: Start: 06-15-2024 End: 06-15-2024 Patient encounter procedure DO Benedicto Field Work Phone: [facility] Cardiology Work Phone: Start: 06-15-2024 End: 06-15-2024 Office outpatient visit 25 minutes Fer García SOLAR LAB TECHNICIAN Work Phone: [facility] Comment on above: 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) (Primary Dx) Start: 06-15-2024 End: 06-15-2024 ambulatory FER GARCÍA Not Available Start: 06-07-2024 End: 06-07-2024 Office outpatient visit 25 minutes Tom Field DO Work Phone: [facility] 230 Comment on above: 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) (Primary Dx); Peripheral vascular disease (CMS/HCC); Hypertension, unspecified type (CMS/HCC); Hypothyroidism, unspecified type (CMS/HCC); Stage 3a chronic kidney disease (HCC) (CMS/HCC); 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, unspecified vessel or lesion type, unspecified whether [place] or transplanted heart (CMS/HCC); Type 2 diabetes mellitus with hyperglycemia, without long-term current use of insulin (CMS/HCC); Myalgia Start: 06-07-2024 End: 06-07-2024 ambulatory TOM FIELD Not Available Start: 06-01-2024 End: 06-01-2024 ambulatory DO Benedicto Field Work Phone: [facility] Work Phone: Start: 06-01-2024 End: 06-01-2024 Patient encounter procedure DO Benedicto Rodriguezsarinafelix Work Phone: [facility] Physician [facility] Vascular Surgery Work Phone: Start: 04-13-2024 End: 04-13-2024 ambulatory DAJA Patterson GUERRERO Not Available Start: 03-26-2024 End: 03-26-2024 ambulatory TOM Talley RASHIDA Not Available Start: 03-23-2024 End: 03-23-2024 ambulatory FERPRABHJOT GARCÍA Not Available Start: 03-22-2024 End: 03-22-2024 ambulatory SARAH CONNELL Not Available Start: 03-11-2024 End: 03-11-2024 ambulatory TOM RODRIGUEZLEIGHTON Not Available Start: 03-01-2024 End: 03-01-2024 ambulatory TOM RODRIGUEZLEIGHTON Not Available Start: 02-25-2024 End: 02-26-2024 ambulatory Benedicto Roberto Rashida Facility:[facility] Start: 02-17-2024 End: 02-17-2024 ambulatory TOM RODRIGUEZLEIGHTON Not Available Start: 02-13-2024 End: 02-13-2024 ambulatory SARA Talley DIANA Not Available Start: 02-09-2024 Non-patient / Non-visit DO Benedicto Rodriguezsarinafelix Work Phone: [facility] Physician [facility] Gastroenterology Work Phone: Start: 02-09-2024 End: 02-09-2024 Admission to same day surgery center DO Benedcito Rodriguezsarinafelix Work Phone: [facility] Work Phone: Start: 02-09-2024 End: 02-09-2024 ambulatory DO Benedicto Rodriguezsarinafelix Work Phone: [facility] Work Phone: Start: 02-02-2024 End: 02-02-2024 ambulatory TOM RODRIGUEZLEIGHTON Not Available Start: 12-04-2023 End: 12-04-2023 ambulatory SARAH CONNELL Not Available Start: 10-01-2023 End: 10-01-2023 ambulatory DO Benedicto Rodriguezleighton Work Phone: [facility] Work Phone: Start: 10-01-2023 End: 10-01-2023 Patient encounter procedure DO Benedicto Field Work Phone: [facility] Work Phone: Start: 07-02-2023 Office outpatient ne w 45 minutes Lili [facility] Start: 07-02-2023 End: 07-02-2023 ambulatory DO Benedicto Field Work Phone: [facility] Work Phone: Start: 07-02-2023 End: 07-02-2023 Patient encounter procedure DO Benedicto Field Work Phone: [facility] Work Phone: Start: 03-13-2023 ambulatory DEANNA FAUST . Facili ty:H1 Start: 02-25-2023 End: 02-25-2023 ambulatory NARENDRANATH LAKSHMIPATHY . Facility:[facility]1 Start: 02-06-2023 End: 02-07-2023 ambulatory NARENDRANATH LAKSHMIPATHY . Facility:[facility] Start: 01-28-2023 End: 01-29-2023 ambulatory TOM FIELD Facility:[facility] Start: 01-09-2023 End: 01-10-2023 ambulatory NARENDRANATH LAKSHMIPATHY . Facility:[facility] Start: 01-02-2023 ambulatory DIAMANTE SPAULDING . Facility:H 1 Start: 12-19-2022 End: 12-20-[address] SADIE PERRY . Facility:[facility]1 Start: 12-14-2022 Rx Renewal Ashlee Henry Work Phone: [facility] Work Phone: Start: 12-02-2022 End: 12-03-2022 ambulatory Valentino FIELD DO Facility:[id number] Start: 12-02-2022 End: 12-03-2022 ambulatory Valentino RODRIGUEZLEIGHTON DO Facility:[id number] Start: 11-12-2022 End: 11-13-[address] SADIE PERRY . Facility:[facility]1 Start: 10-24-[address] SADIE PERRY . Faci lity:H1 Start: 10-24-2022 Rx Renewal Ashlee C Kodz Work Phone: [facility] Work Phone: Start: 10-21-2022 ambulatory Poli Dangelo Kruger Facil [id number] Start: 10-18-2022 Rx Renewal [place] Kodz Work Phone: [facility] Work Phone: Start: 10-01-2022 End: 10-01-[address] SADIE PERRY . Facility:[facility]1 Start: 09-03-2022 End: 09-04-[address] SADIE PERRY . Facility:H1 Start: 08-04-2022 Rx Renewal [place] C Kodz Work Phone: [facility] Work Phone: Start: 05-29-2022 AUDIT [place] C Kodz Work Phone: [facility] Work Phone: Start: 05-27-2022 Office outpatient vi sit 25 minutes [place] C Kodz Work Phone: -[facility] Work Phone: Start: 05-27-2022 ambulatory Poli Dangelo Kruger Facil [id number] Start: 05-23-2022 End: 05-24-[address] SADIE PERRY . Facility:H1 Start: 05-10-2022 Rx Renewal Ashlee C Kodz Work Phone: [facility] Work Phone: Start: 03-04-2022 Telephone encounter Ashlee C Ko dz Work Phone: [facility] Work Phone: Start: 02-28-2022 End: 03-01-[address] SADIE PERRY . Facility: Start: 12-18-2021 Rx Renewal Ashlee C Kodz Work Phone: [employer] [facility] Work Phone: Start: 10-06-2021 Rx Renewal Ashlee C Kodz Work Phone: [employer] [facility] Work Phone: Start: 09-26-2021 AUDIT [place] C Kodz Work Phone: [employer] Work Phone: Start: 09-10-2021 AUDIT [place] Kodz Work Phone: [employer] [facility] Work Phone: Start: 09-06-2021 Rx Renewal [place] Kodz Work Phone: [employer] [facility] Work Phone: Start: 09-05-2021 Office outpatient vi sit 15 minutes [place] Kodz Work Phone: [employer] [facility] Work Phone: Start: 09-05-2021 Patient encounter procedure Ashlee C Kodz Work Phone: [employer] [facility] Work Phone: Start: 08-12-2021 Rx Renewal [place] C Kodz Work Phone: [employer] [facility] Work Phone: Start: 03-09-2021 Rx Renewal [place] Kodz Work Phone: [employer] [facility] Work Phone: Start: 02-23-2020 Patient encounter procedure Poli Mercado MD [employer] Work Phone: Start: 08-25-2019 Patient encounter procedure Poli Mercado MD [employer] [facility] Work Phone: Start: 04-07-2019 Patient encounter procedure Poli Mercado MD -[facility] Work Phone: Procedures Date Procedure Procedure Detail Performing Clinician Start: 06-15-2024 Complete blood count with white cell differential, automated Tom Field DO Work Phone: Start: 06-15-2024 Comprehensive metabo lic panel Tom Fiedl DO Work Phone: Start: 06-15-2024 Lipid panel Tom Quiroga caiogladis DO Work Phone: Start: 06-15-2024 SPECIMEN STATUS REPORT Tom Field DO Work Phone: Start: 06-15-2024 Urine albumin quantitative Tom Field DO Work Phone: Start: 06-01-2024 Ankle brachial press ure index DO Benedicto Field Work Phone: Start: 02-09-2024 Colonoscopy DO Benedicto Joshua Rashida Work Phone: History of Cath Plac ement Of Stent 3 Poli Mercado MD Total knee replacement Yolanda Mercado MD Comment on above: Bilateral; Plan of Treatment Date Care Activity Detail Author Start: 04-23-2026 Glaucoma screening Diabetes: R etinopathy Screening [facility] Start: 10-19-2025 Urine screening for protein Diabetes: Urine Protein Screening [facility] Start: 06-15-2025 Urine screening for protein Diabetes: Urine Protein Screening [facility] Start: 03-26-2025 Urine screening for protein Diabetes: Urine Protein Screening [facility] Start: 03-01-2025 End: 03-01-2025 Patient encounter procedure 03/01/2025 9:00 AM EDT Office Visit [facility] [address] [place] [address] Tom Field DO [address] [place] [address] [facility] [address] Start: 02-22-2025 End: 10-25-2025 CBC W Auto Differential panel - Blood CBC and differential Lab Routine 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/HCC) Chronic kidney disease, stage 3b (HCC) (CMS/HCC) Sick sinus syndrome (CMS/HCC) Hypertensive heart disease with heart failure (CMS/HCC) 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, unspecified vessel or lesion type, unspecified whether [place] or transplanted heart (CMS/HCC) Hypertension, unspecified type (CMS/HCC) Mixed hyperlipidemia (CMS/HCC) Stage 3a chronic kidney disease (HCC) (CMS/HCC) Type 2 diabetes mellitus with hyperglycemia, without long-term current use of insulin (CMS/HCC) Raynaud's disease without gangrene Expected: 02/22/2025 (Approximate), Expires: 10/25/2025 [facility] Comment on above: Expected: 02/22/2025 (Approximate), Expires: 10/25/2025 Start: 02-22-2025 End: 10-25-2025 Comprehensive metabolic 2000 panel - Serum or Plasma Comprehensive metabolic panel Lab Routine 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/HCC) Chronic kidney disease, stage 3b (HCC) (CMS/HCC) Sick sinus syndrome (CMS/HCC) Hypertensive heart disease with heart failure (CMS/HCC) 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, unspecified vessel or lesion type, unspecified whether [place] or transplanted heart (CMS/HCC) Hypertension, unspecified type (CMS/HCC) Mixed hyperlipidemia (CMS/HCC) Stage 3a chronic kidney disease (HCC) (CMS/HCC) Type 2 diabetes mellitus with hyperglycemia, without long-term current use of insulin (CMS/HCC) Raynaud's disease without gangrene Expected: 02/22/2025 (Approximate), Expires: 10/25/2025 [facility] Comment on above: Expected: 02/22/2025 (Approximate), Expires: 10/25/2025 Start: 02-22-2025 End: 10-25-2025 Hemoglobin A1c/Hemoglobin.total in Blood Hemoglobin A1c Lab Routine 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/HCC) Expected: 02/22/2025 (Approximate), Expires: 10/25/2025 [facility] Comment on above: Expected: 02/22/2025 (Approximate), Expires: 10/25/2025 Start: 02-22-2025 End: 10-25-2025 Lipid 1996 panel - Serum or Plasma Lipid panel Lab Routine 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, unspecified vessel or lesion type, unspecified whether [place] or transplanted heart ([facility]/HCC) Hypertension, unspecified type ([facility]/HCC) Expected: 02/22/2025 (Approximate), Expires: 10/25/2025 [facility] Comment on above: Expected: 02/22/2025 (Approximate), Expires: 10/25/2025 Start: 02-22-2025 End: 10-25-2025 Microalbumin/Creatinine panel in random Urine Microalbumin / creatinine urine ratio Lab Routine Type 2 diabetes mellitus with diabetic chronic kidney disease ([facility]) Expected: 02/22/2025 (Approximate), Expires: 10/25/2025 [facility] Work Phone: Comment on above: Expected: 02/22/2025 (Approximate), Expires: 10/25/2025 Start: 01-18-2025 End: 01-18-2025 Patient encounter procedure 01/18/2025 11:30 AM EDT Procedure Visit [facility] [address] [place] [phone] Sarah Connell DPM [address] [place] [address] [facility] Start: 01-17-2025 Hemoglobin A1c measurement Diabetes: Hemoglobin A1C [facility] Start: 12-29-2024 End: 12-29-2024 Patient encounter procedure [facility] [place] [facility] Start: 11-01-2024 End: 11-01-2024 Patient encounter procedure 11/01/2024 8:40 AM EST Office Visit [facility] [place] [address] [place] [phone] Fer García, WILL [address] [place] [address] [facility] Start: 10-25-2024 End: 10-25-2024 Patient encounter procedure [facility] [address] Comment on above: Type 2 diabetes li itus with diabetic chronic kidney disease ([facility]/HCC); Chronic kidney disease, stage 3b (HCC) (CMS/HCC); Sick sinus syndrome (CMS/HCC); Hypertensive heart disease with heart failure (CMS/HCC) Start: 10-18-2024 End: 06-18-2025 CBC W Auto Differential panel - Blood CBC and differential Lab Routine Mixed hyperlipidemia (CMS/HCC) Hypertension, unspecified type (CMS/HCC) Hypothyroidism, unspecified type (CMS/HCC) Expected: 10/18/2024 (Approximate), Expires: 06/18/2025 [facility] Comment on above: Expected: 10/18/2024 (Approximate), Expires: 06/18/2025 Start: 10-18-2024 End: 06-18-2025 Comprehensive metabolic 2000 panel - Serum or Plasma Comprehensive metabolic panel Lab Routine 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, unspecified vessel or lesion type, unspecified whether [place] or transplanted heart ([facility]/HCC) Type 2 diabetes mellitus without complication, with long-term current use of insulin ([facility]) Diabetic nephropathy associated with type 2 diabetes mellitus (HCC) ([facility]/HCC) Expected: 10/18/2024 (Approximate), Expires: 06/18/2025 [facility] Comment on above: Expected: 10/18/2024 (Approximate), Expires: 06/18/2025 Start: 10-18-2024 End: 06-18-2025 Hemoglobin A1c/Hemoglobin.total in Blood Hemoglobin A1c Lab Routine Type 2 diabetes mellitus without complication, with long-term current use of insulin ([facility]/HCC) Expected: 10/18/2024 (Approximate), Expires: 06/18/2025 [facility] Comment on above: Expected: 10/18/2024 (Approximate), Expires: 06/18/2025 Start: 10-18-2024 End: 06-18-2025 Microalbumin/Creatinine panel in random Urine Microalbumin / creatinine urine ratio Lab Routine 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, unspecified vessel or lesion type, unspecified whether [place] or transplanted heart ([facility]/HCC) Type 2 diabetes mellitus without complication, with long-term current use of insulin ([facility]) Diabetic nephropathy associated with type 2 diabetes mellitus (HCC) ([facility]/HCC) Hypertension, unspecified type ([facility]/HCC) Expected: 10/18/2024 (Approximate), Expires: 06/18/2025 [facility] Work Phone: Comment on above: Expected: 10/18/2024 (Approximate), Expires: 06/18/2025 Start: 10-05-2024 End: 10-05-2024 Patient encounter procedure [facility] [place] Comment on above: Arrived Start: 09-29-2024 End: 09-29-2024 Patient encounter procedure [facility] Comment on above: Arrived Start: 09-27-2024 End: 09-27-2024 Patient encounter procedure 09/27/2024 10:20 AM EST Office Visit [facility] [address] [place] [address] Tom Field, DO [address] [place] [address] [facility] [address] Start: 09-14-2024 Hemoglobin A1c measurement Diabetes: Hemoglobin A1C [facility] Start: 09-07-2024 End: 09-07-2024 Patient encounter procedure 09/07/2024 10:00 AM EST Office Visit [facility] [place] [address] [place] [address] Fer García, SOLAR LAB TECHNICIAN [address] [place] [address] [facility] Start: 09-06-2024 End: 09-06-2024 Patient encounter procedure [facility] Comment on above: Arrived Start: 08-10-2024 End: 08-10-2024 Patient encounter procedure 08/10/2024 9:30 AM EDT Office Visit [facility] [place] [address] [place] [address] Sunny Vasquez, DO [address] [place] [place] [address] [facility] [place] Start: 06-28-2024 End: 06-28-2024 Patient encounter procedure 06/28/2024 8:00 AM EDT Procedure Visit [facility] [address] [place] [phone] Sarah Connell DPM [address] [place] [address] [facility] Start: 06-18-2024 End: 06-18-2024 Patient encounter procedure 06/18/2024 12:20 PM EDT Office Visit [facility] [address] [place] [phone] Tom Field DO [address] [place] [address] Arrived [facility] [address] Comment on above: Arrived Start: 06-15-2024 End: 06-15-2024 Patient encounter procedure [facility] [place] [address] Comment on above: Arrived Start: 06-13-2024 Influenza vaccination Influenza Vacc ine (#1) [facility] Start: 06-01-2024 Ankle brachial press ure index [facility] Start: 05-03-2024 Hemoglobin A1c measurement Diabetes: Hemoglobin A1C [facility] Start: 02-09-2024 [facility] Start: 10-21-2022 FUV, Provider: Poli Mercado, Status: Pen, Time: 9:45 AM FUV, Provider: Poli Mercado, Status: Pen, Time: 9:45 AM [employer] [facility] Work Phone: Start: 05-27-2022 FUV, Provider: Poli Mercado, Status: Pen, Time: 11:00 AM FUV, Provider: Poli Mercado, Status: Pen, Time: 11:00 AM [employer] [facility] Work Phone: Start: 05-02-2022 FUV, Provider: Poli Mercado, Status: Pen, Time: 10:30 AM FUV, Provider: Poli Mercado, Status: Uziel, Time: 10:30 AM [facility] [employer] [facility] Work Phone: Start: 09-05-2021 FUV, Provider: Poli Mercado, Status: Uziel, Time: 10:00 AM FUV, Provider: Poli Mercado, Status: Uziel, Time: 10:00 AM [facility] Work [facility]: Patient Education Colon polyps H emorrhoids (DC) Diverticulosis (DC) [facility] Work Phone: [facility] Immunizations Immunization Date Immunization Notes Care Provider Oscar leon 08-12-2024 Seasonal trivalent influenza vaccine, adjuvanted, preservative free Dwight Anand MA [facility] 06-22-2024 RSV, recombinant, protein subunit RSVpreF, adjuvant reconstitu, 120mcg/0.5mL, PF (Arexvy) Sunny Pedro DO Work Phone: [facility] 08-27-2023 Influenza, Seasonal, Quadrivalent, Adjuvanted Tmo Field DO Work Phone: [facility] 08-27-2023 influenza virus vacc ine, unspecified formulation Tom Field DO Work Phone: [facility] 10-24-2022 Pneumococcal Conjuga te PCV 20 Tom Field DO Work Phone: [facility] 08-24-2022 Moderna Bivalent Conrad ster Vaccination Tom [facility] DO Work Phone: [facility] 08-24-2022 Pfizer COVID-19 Vac Bivalent 30 MCG/0.3ML Intramuscular Suspension Ashlee Henry Work Phone: [employer] [facility] Work Phone: 07-22-2022 Influenza, High-dose Seasonal, Quadrivalent, Preservative Free Tom Field DO Work Phone: [facility] 07-18-2022 influenza, injectabl e, quadrivalent, contains preservative Ashlee C Kodz Work Phone: -[facility] Work Phone: 01-24-2022 Moderna COVID-19 Vac cine 100 MCG/0.5ML Intramuscular Suspension Ashlee C Kodz Work Phone: [facility] Work Phone: 08-09-2021 Moderna COVID-19 Vac cine 100 MCG/0.5ML Intramuscular Suspension Ashlee C Kodz Work Phone: -[facility] Work Phone: 2021 Fluzone High-Dose Quadrivalent 0.7 ML Intramuscular Suspension Prefilled Syringe Ashlee C Kodz Work Phone: [facility] Work Phone: 2021 influenza, high dose seasonal, preservative-free Tom Field Work Phone: [facility] 12-05-2020 Moderna COVID-19 Vac cine 100 MCG/0.5ML Intramuscular Suspension Ashlee C Kodz Work Phone: [facility] Work Phone: 11-07-2020 Moderna COVID-19 Vac cine 100 MCG/0.5ML Intramuscular Suspension [place] Kodz Work Phone: [facility] Work Phone: 10-04-2020 zoster vaccine recombinant Ashlee C Kodz Work Phone: -[facility] Work Phone: 08-04-2020 zoster vaccine recombinant [place] Kodz Work Phone: -[facility] Work Phone: 2020 Fluad Quadrivalent 0 .5 ML Intramuscular Prefilled Syringe [place] C Kodz Work Phone: [facility] Work Phone: 07-28-2019 influenza, high dose seasonal, preservative-free Poli Mercado MD -[facility] Work Phone: Comment on above: Series: 07-28-2019 influenza, injectabl e, quadrivalent, preservative free Tom Kaftan DO Work Phone: [facility] 08-25-2018 pneumococcal polysaccharide vaccine, 23 valent Ashlee C Kodz Work Phone: [facility] 07-13-2018 influenza, high dose seasonal, preservative-free Ashlee C Kodz Work Phone: [facility] Work Phone: 07-13-2018 influenza, injectabl e, quadrivalent, preservative free Tom Kaftan DO Work Phone: [facility] 07-28-2017 influenza, high dose seasonal, preservative-free Ashlee C Kodz Work Phone: [facility] Work Phone: 07-28-2017 influenza, injectabl e, quadrivalent, preservative free Tom Kaftan DO Work Phone: [facility] 07-26-2015 influenza, high dose seasonal, preservative-free [place] C Kodz Work Phone: [facility] Work Phone: 07-26-2015 influenza, injectabl e, quadrivalent, preservative free Tom Kaftan DO Work Phone: [facility] 09-23-2014 tetanus toxoid, redu priyank diphtheria toxoid, and acellular pertussis vaccine, adsorbed Tom Kaftan DO Work Phone: [facility] 07-21-2014 influenza, high dose seasonal, preservative-free Poli Mercado MD [facility] Work Phone: Comment on above: Series: 11-04-2012 pneumococcal polysaccharide vaccine, 23 valent Poli Mercado MD [facility] Work Phone: Comment on above: Series: 10-09-2012 zoster vaccine, live Poli Mercado MD [facility] Work Phone: Comment on above: Series: Payers Date Payer Category Payer Self-pay [id number] 2022 Unknown 2008 Medicare 2008 Private Health Insurance 1959 Medicare [id number] 1959 Unknown [id number] 1945 Unknown [id number] 2.16.840.1.522207.3.579.2.356 1945 Unknown [id number] 2.16.840.1.106941.3.579.2.356 1945 Unknown [id number] 2.16.840.1.114815.3.579.2.159 1945 Unknown [id number] 2.16.840.1.264553.3.579.2.159 1945 Unknown [id number] 2.16.840.1.011507.3.579.2.718 1945 Unknown [id number] 2.16.840.1.734850.3.579.2.593 1945 Unknown [id number] 2.16.840.1.121439.3.579.2.593 1945 Unknown [id number] 2.16.840.1.490615.3.579.2.593 1945 Unknown [id number] 2.16.840.1.229146.3.579.2.593 1945 Unknown [id number] 2.16.840.1.543648.3.579.2.593 1945 Unknown [id number] 2.16.840.1.799266.3.579.2.593 1945 Unknown [id number] 2.16.840.1.068877.3.579.2.593 1945 Unknown [id number] 2.16.840.1.749372.3.579.2.593 1945 Unknown [id number] 2.16.840.1.503170.3.579.2.593 1945 Unknown [id number] 2.16.840.1.957226.3.579.2.593 1945 Unknown [id number] 2.16.840.1.394236.3.579.2.593 1945 Unknown [id number] 2.16.840.1.532157.3.579.2.593 1945 Unknown [id number] 2.16.840.1.110582.3.579.2.159 1945 Unknown [id number] 2.16.840.1.426940.3.579.2.159 1945 Unknown [id number] 2.16.840.1.649481.3.579.2.159 1945 Unknown [id number] 2.16.840.1.580331.3.579.2.125 9 1945 Unknown [id number] 2.16.840.1.461700.3.579.2.125 9 1945 Unknown [id number] 2.16.840.1.512248.3.579.2.125 9 1945 Unknown [id number] 2.16.840.1.937310.3.579.2.125 9 1945 Unknown [id number] 2.16.840.1.120366.3.579.2.125 9 1945 Unknown [id number] 2.16.840.1.598613.3.579.2.125 9 1945 Unknown [id number] 2.16.840.1.354690.3.579.2.125 9 1945 Unknown [id number] 2.16.840.1.320804.3.579.2.125 9 1945 Unknown [id number] 2.16.840.1.884609.3.579.2.125 9 1945 Unknown [id number] 2.16.840.1.463274.3.579.2.125 9 1945 Unknown [id number] 2.16.840.1.242276.3.579.2.125 9 1945 Unknown [id number] 2.16.840.1.512265.3.579.2.125 9 1945 Unknown [id number] 2.16.840.1.184971.3.579.2.125 9 1945 Unknown [id number] 2.16.840.1.114272.3.579.2.125 9 1945 Unknown [id number] 2.16.840.1.697301.3.579.2.125 9 1945 Unknown [id number] 2.16.840.1.332277.3.579.2.125 9 1945 Unknown [id number] 2.16.840.1.873066.3.579.2.125 9 1945 Unknown [id number] 2.16.840.1.837160.3.579.2.125 9 1945 Unknown [id number] 2.16.840.1.197341.3.579.2.125 9 1945 Unknown [id number] 2.16.840.1.803833.3.579.2.125 9 1945 Unknown [id number] 2.16.840.1.249291.3.579.2.125 9 Medicare Medicare Outpatient [id number] 8A [id number] Unknown [id number] 2.16.840.1.801026.3.579.2.531 Unknown [id number] 2.16.840.1.835685.3.579.2.531 Unknown [id number] 2.16.840.1.575471.3.579.2.531 Unknown [id number] 2.16.840.1.606527.3.579.2.531 Unknown [id number] 2.16.840.1.683944.3.579.2.531 Unknown [id number] 2.16.840.1.599499.3.579.2.531 Unknown [id number] 2.16.840.1.463675.3.579.2.531 Unknown [id number] 2.16.840.1.823412.3.579.2.531 Social History Date Type Detail Facility Start: 03-17-2024 End: 03-25-2024 Never Drank Alcohol Never Drank Alcohol [facility] Comment on above: Quit 1987 (1PPD x 20 years); Start: 03-17-2024 End: 03-25-2024 Sex Assigned At [facility] Start: 06-04-2020 End: 06-15-2024 Tobacco smoking status KYIS Ex-smoker (finding) [facility] Start: 1945 Sex Assigned At Male F [facility] Start: 05-15-2023 Tobacco smoking stat us [facility] Never smoked tobacco [facility] Start: 05-15-2023 Tobacco use and exposure Smoke less tobacco non-user [facility] Start: 06-30-2024 End: 10-25-2024 Alcoholic beverage intake Ex-drinker (finding) [facility] How often do you nee d to have someone help you when you read instructions, pamphlets, or other written material from your doctor or pharmacy [SILS] Rarely [facility] Do you belong to any clubs or organizations such as temple groups, unions, fraternal or athletic groups, or school groups? No [facility] Are you now , , , , never or living with a partner? [facility] How often to you hav e a drink containing alcohol? Monthly or less [facility] How many standard dr inks containing alcohol do you have on a typical day? 1 or 2 [facility] How often do you hav e 6 or more drinks on 1 occasion? Never [facility] Do you feel stress - tense, restless, nervous, or anxious, or unable to sleep at night because your mind is troubled all the time - these days [OSQ] Not at all [facility] (I/We) worried wheth er (my/our) food would run out before (I/we) got money to buy more. Never true [facility] Start: 09-11-2023 Alcohol Comment caffeine intak e : none [facility] Start: 1945 Sex assigned at Not on file [facility] NEGATED: Highlighted row - - [employer] [facility] Work Phone: Medical Equipment Procedure Code Equipment [...] MD Start : 23-Feb-2014 Active Start: 02-23-2014 Use daily as directed [id number] Start: 02-02-2024 Goals Date Patient Goal Desired Activity /State Functional Status Date Assessment Result Facility NEGATED: Highlighted row Functional performance Functional status health issues are not documented Disease [employer] [facility]: Mental Status Date Assessment Result Facility NEGATED: Highlighted row Cognitive function [Interpretation] Cognitive status health issues are not documented [facility] Work Phone: Clinical Notes 02-28-2022 to 10-25-2024 Tom Field, DO - 10/25/2024 10:20 AM ESTSunny Vasquez, DO - 10/05/2024 8:00 AM Sixto Connell, DPM - 09/29/2024 11:30 AM ESTBenabdifatah Vasquez, DO - 09/27/2024 10:45 AM EST Note Date & Type Note Facility 10-25-2024 History of Present illness Narrative Images from the original note were not included. SUBJECTIVE: Ramon Cruz is a 79 y.o. male presents with chief complaint of Results, Diabetes, Pain, Hypertension, and Hyperlipidemia Pt presents to the office for routine OV, review blood work results. Pt does have a lillian device and has been monitoring sugars regularly. states sugar has been about the same since last OV. states if sugar does increase they do make quick diet changes. Denies any hypoglycemic episodes since last OV. Chronic pain: Pt states he is now taking 2 tramadol bid for chronic pain. She states he started taking 1 in the am and 1 at bedtime pain is well managed. Would like this updated for future refills. Hand issue: Has complaints of bilateral hand coldness and fingers gets white. Onset: this past winter. Denies any numbness or tingling when this occurs. Diabetes He presents for his follow-up diabetic visit. He has type 2 diabetes mellitus. His disease course has been stable. Pain This is a chronic problem. The current episode started more than 1 year ago. The problem occurs constantly. Hypertension This is a chronic problem. The current episode started more than 1 year ago. The problem is unchanged. The problem is controlled. Hyperlipidemia This is a chronic problem. The current episode started more than 1 year ago. The problem is controlled. Recent lipid tests were reviewed and are normal. Review of Systems: Review of Systems Problem List: Patient Active Problem List Diagnosis Benign prostatic hyperplasia Coronary artery disease (CMS/HCC) Diabetic renal disease (CMS/HCC) Exercise-induced angina (CMS/HCC) Heart failure (CMS/HCC) Hyperlipidemia (CMS/HCC) Hypothyroid (CMS/HCC) Obstructive sleep apnea syndrome Hypertension (CMS/HCC) Peripheral vascular disease (CMS/HCC) Sick sinus syndrome (CMS/HCC) Stage 3a chronic kidney disease (HCC) (CMS/HCC) Stented coronary artery Type 2 diabetes mellitus with hyperglycemia, without long-term current use of insulin (CMS/HCC) Vitamin D deficiency Generalized osteoarthritis DDD (degenerative disc disease), lumbosacral Parkinsonism (CMS/HCC) PAC (premature atrial contraction) S/P placement of cardiac pacemaker S/P PTCA (percutaneous transluminal coronary angioplasty) Complication of ventilation therapy Myocardial infarction (CMS/HCC) Past Medical History: Past Medical History: Diagnosis Date Diabetes (CMS/HCC) Heart attack (CMS/HCC) Hypercholesteremia (CMS/HCC) Hypertension (CMS/HCC) Family History: Family History Problem Relation Name Age of Onset Cancer Mother Heart disease Father Diabetes Sister Allergies: Allergies Allergen Reactions Lactose Surgical History: Past Surgical History: Procedure Laterality Date CARDIAC PACEMAKER PLACEMENT 03/2021 CARDIAC SURGERY 2019 CORONARY STENT PLACEMENT 8 stents OTHER SURGICAL HISTORY 09/27/2024 DISE TOTAL KNEE ARTHROPLASTY 2009; 2011 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 [employer] Tobacco Use: Low Risk (10/25/2024) Patient History Smoking Tobacco Use: Never Smokeless Tobacco Use: Never Passive Exposure: Not on file Alcohol Use: Not At Risk (03/25/2024) AUDIT-C Frequency of Alcohol Consumption: Monthly or less Average Number of Drinks: 1 or 2 Frequency of Binge Drinking: Never Financial Resource Strain: Low Risk (03/25/2024) Overall Financial Resource Strain (CARDIA) Difficulty of Paying Living Expenses: Not hard at all Food Insecurity: No Food Insecurity (03/25/2024) Hunger Vital Sign Worried About Running Out of Food in the Last Year: Never true Ran Out of Food in the Last Year: Never true Transportation Needs: No Transportation Needs (03/25/2024) PRAPARE - Transportation Lack of Transportation (Medical): No Lack of Transportation (Non-Medical): No Physical Activity: Inactive (03/25/2024) Exercise Vital Sign Days of Exercise per Week: 0 days Minutes of Exercise per Session: 0 min Stress: No Stress Concern Present (03/25/2024) [employer] - Occupational Stress Questionnaire Feeling of Stress : Not at all Recent Concern: Stress - Stress Concern Present (03/17/2024) [employer] - Occupational Stress Questionnaire Feeling of Stress : To some extent Social Connections: Moderately Integrated (03/25/2024) Social Connection and Isolation Panel [NHANES] Frequency of Communication with Friends and Family: Three times a week Frequency of Social Gatherings with Friends and Family: Not on file Attends Yazidi Services: More than 4 times per year Active Member of Clubs or Organizations: No Attends Club or Organization Meetings: Never Marital Status: Intimate Partner Violence: Not on file Depression: Not at risk (10/25/2024) PHQ-2 PHQ-2 Score: 0 Housing Stability: Low Risk (03/25/2024) Housing Stability Vital Sign Unable to Pay for Housing in the Last Year: No Number of Times Moved in the Last Year: 0 Homeless in the Last Year: No Health Literacy: Adequate Health Literacy (03/25/2024) B1300 Health Literacy Frequency of need for help with medical instructions: Rarely OBJECTIVE: Visit Vitals Ht 5' 7 BMI 29.76 kg/m Smoking Status Never BSA 2.02 m Physical Exam Constitutional: General: He is not in acute distress. Appearance: Normal appearance. He is obese. He is ill-appearing. HENT: Head: Normocephalic and atraumatic. Mouth/Throat: Mouth: Mucous membranes are moist. Neck: Vascular: No carotid bruit. Cardiovascular: Rate and Rhythm: Normal rate and regular rhythm. Pulses: Normal pulses. Heart sounds: No murmur heard. No friction rub. No gallop. Pulmonary: Effort: No respiratory distress. Breath sounds: Normal breath sounds. No wheezing, rhonchi or rales. Abdominal: General: Bowel sounds are normal. There is no distension. Palpations: Abdomen is soft. Tenderness: There is no abdominal tenderness. Musculoskeletal: Cervical back: Neck supple. No tenderness. Right lower leg: Edema present. Left lower leg: Edema present. Skin: General: Skin is warm and dry. Findings: Erythema: of LLE; warm to touch; no abscesses or abrasions. Neurological: General: No focal deficit present. Mental Status: He is alert and oriented to person, place, and time. Motor: Weakness present. Coordination: Coordination abnormal. Gait: Gait abnormal (slow; shuffling). Psychiatric: Mood and Affect: Mood normal. Behavior: Behavior normal. Judgment: Judgment normal. Recent Results (from the past 4 weeks) Microalbumin / creatinine urine ratio Collection Time: 10/19/24 9:48 AM Result Value Ref Range Creat Ur 74.0 Not Estab. mg/dL Albumin Ur 35.0 Not Estab. ug/mL Alb/Creat Ratio Urine 47 (H) 0 - 29 mg/g creat Comprehensive metabolic panel Collection Time: 10/19/24 9:48 AM Result Value Ref Range Glucose 168 (H) 70 - 99 mg/dL BUN 33 (H) 8 - 27 mg/dL Creat 1.59 (H) 0.76 - 1.27 mg/dL EGFR 44 (L) >59 mL/min/1.73 BUN/Creat Ratio 21 10 - 24 Sodium 140 134 - 144 mmol/L Potassium 5.2 3.5 - 5.2 mmol/L Chloride 105 96 - 106 mmol/L Carbon Dioxide 23 20 - 29 mmol/L Calcium 9.5 8.6 - 10.2 mg/dL Protein Total 6.6 6.0 - 8.5 g/dL Albumin 3.9 3.8 - 4.8 g/dL Globulin Total 2.7 1.5 - 4.5 g/dL Bili Total 0.4 0.0 - 1.2 mg/dL Alk Phosphatase 170 (H) 44 - 121 IU/L AST 15 0 - 40 IU/L ALT <5 0 - 44 IU/L CBC and differential Collection Time: 10/19/24 9:48 AM Result Value Ref Range WBC 8.7 3.4 - 10.8 x10E3/uL RBC 4.25 4.14 - 5.80 x10E6/uL Hgb 12.1 (L) 13.0 - 17.7 g/dL Hct 38.3 37.5 - 51.0 % MCV 90 79 - 97 fL MCH 28.5 26.6 - 33.0 pg MCHC 31.6 31.5 - 35.7 g/dL RDW 13.1 11.6 - 15.4 % Platelets 264 150 - 450 x10E3/uL Neutrophils 53 Not Estab. % Lymphs 31 Not Estab. % Monocytes 8 Not Estab. % Eos 6 Not Estab. % Basos 1 Not Estab. % Neutrophils Abs 4.6 1.4 - 7.0 x10E3/uL Lymphs Abs 2.7 0.7 - 3.1 x10E3/uL MonocytesAbs 0.7 0.1 - 0.9 x10E3/uL Eos Abs 0.5 (H) 0.0 - 0.4 x10E3/uL Baso Abs 0.1 0.0 - 0.2 x10E3/uL Immature Granulocytes 1 Not Estab. % Immature Grans Abs 0.1 0.0 - 0.1 x10E3/uL Hemoglobin A1c Collection Time: 10/19/24 9:48 AM Result Value Ref Range HgbA1C 8.4 (H) 4.8 - 5.6 % ASSESSMENT AND PLAN: Assessment/Plan Diagnoses and all orders for this visit: 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, unspecified vessel or lesion type, unspecified whether [place] or transplanted heart ([facility]) Problem is stable, will continue with current treatment plan. Call or return to clinic if any changes occur - Lipid panel; Future - Comprehensive metabolic panel; Future - CBC and differential; Future Type 2 diabetes mellitus with diabetic chronic kidney disease ([facility]) Labs ordered today, will follow up when results available - Microalbumin / creatinine urine ratio; Future - Comprehensive metabolic panel; Future - CBC and differential; Future - Hemoglobin A1c; Future Chronic kidney disease, stage 3b (HCC) ([facility]) - Comprehensive metabolic panel; Future - CBC and differential; Future Sick sinus syndrome ([facility]) - Comprehensive metabolic panel; Future - CBC and differential; Future Hypertensive heart disease with heart failure ([facility]) Record Blood Pressures 2-4 times weekly and record. Return with readings at next appointment. Call with readings if sees significant changes - Comprehensive metabolic panel; Future - CBC and differential; Future Hypertension, unspecified type ([facility]) - Lipid panel; Future - Comprehensive metabolic panel; Future - CBC and differential; Future Mixed hyperlipidemia ([facility]) - Comprehensive metabolic panel; Future - CBC and differential; Future Stage 3a chronic kidney disease (HCC) ([facility]) Labs ordered today, will follow up when results available - Comprehensive metabolic panel; Future - CBC and differential; Future Type 2 diabetes mellitus with hyperglycemia, without long-term current use of insulin ([facility]) - Comprehensive metabolic panel; Future - CBC and differential; Future Raynaud's disease without gangrene Patient advised to return if symptoms worsen and/or persist despite treatment. - Comprehensive metabolic panel; Future - CBC and differential; Future Updated Medications: I have reviewed and reconciled the history and medication list with the patient today. Current Outpatient Medications: acetaminophen (Tylenol) 500 MG tablet, Take 1,000 mg by mouth Daily, Disp: , Rfl: amLODIPine (Norvasc) 10 MG tablet, 1 (one) time each day at the same time., Disp: , Rfl: aspirin 81 MG EC tablet, Take 1 tablet (81 mg) by mouth Daily, Disp: 30 tablet, Rfl: 11 atorvastatin (Lipitor) 20 MG tablet, TAKE 1 TABLET BY MOUTH EVERYDAY AT THE SAME TIME, Disp: 90 tablet, Rfl: 1 carbidopa-levodopa (Sinemet) 25-100 MG tablet, TAKE 2 TABLET BY MOUTH AT 8AM, 1 tablet at NOON, 2 tablets at 3PM, AND 1 tablet at 6PM, Disp: , Rfl: Continuous Glucose Sensor (FreeStyle Lillian 2 Sensor) misc, 1 Units every 14 (fourteen) days, Disp: 2 each, Rfl: 11 insulin glargine (Lantus SoloStar) 100 UNIT/ML pen, INJECT 10 UNITS UNDER THE SKIN EVERY DAY AT BEDTIME, Disp: 15 mL, Rfl: 3 insulin pen needle (B-D UF III MINI PEN NEEDLES) 31G x 5 mm misc, Use daily as directed, Disp: 100 each, Rfl: 11 lisinopril 5 MG tablet, Take 1 tablet (5 mg) by mouth Daily, Disp: 30 tablet, Rfl: 11 metFORMIN XR (Glucophage-XR) 500 MG 24 hr tablet, TAKE 2 TABLETS BY MOUTH IN THE MORNING AND BEFORE BEDTIME*DO NOT CRUSH,CHEW,OR SPLIT*, Disp: 180 tablet, Rfl: 1 metoprolol succinate XL (Toprol-XL) 25 MG 24 hr tablet, Take 1 tablet by mouth 1 (one) time each day., Disp: , Rfl: mirabegron ER (Myrbetriq) 50 MG 24 hr tablet, Take 50 mg by mouth 1 (one) time each day at the same time, Disp: , Rfl: omega-3, EPA+DHA, (Super Maple-3) 1000 MG capsule, 1 capsule, Disp: , Rfl: terbinafine (LamISIL) 250 MG tablet, TAKE 1 TABLET BY MOUTH EVERY DAY, Disp: 90 tablet, Rfl: 0 traMADol (Ultram) 50 MG tablet, Take 1 tablet (50 mg) by mouth every 8 (eight) hours if needed for severe pain, Disp: 30 tablet, Rfl: 0 documented in this encounter [facility] 10-05-2024 History of Present illness Narrative Allergies as of 10/05/2024 - Reviewed 09/29/2024 Allergen Reaction Noted Lactose 03/01/2024 Past Medical History: Diagnosis Date Diabetes (CMS/HCC) Heart attack (CMS/HCC) Hypercholesteremia (CMS/HCC) Hypertension (CMS/HCC) Current Outpatient Medications: acetaminophen (Tylenol) 500 MG tablet, Take 1,000 mg by mouth Daily, Disp: , Rfl: amLODIPine (Norvasc) 10 MG tablet, 1 (one) time each day at the same time., Disp: , Rfl: aspirin 81 MG EC tablet, Take 1 tablet (81 mg) by mouth Daily, Disp: 30 tablet, Rfl: 11 atorvastatin (Lipitor) 20 MG tablet, TAKE 1 TABLET BY MOUTH EVERYDAY AT THE SAME TIME, Disp: 90 tablet, Rfl: 1 carbidopa-levodopa (Sinemet) 25-100 MG tablet, TAKE 2 TABLET BY MOUTH AT 8AM, 1 tablet at NOON, 2 tablets at 3PM, AND 1 tablet at 6PM, Disp: , Rfl: Continuous Glucose Sensor (FreeStyle Lillian 2 Sensor) [facility] [place] [place], 1 Units every 14 (fourteen) days, Disp: 2 each, Rfl: 11 insulin glargine (Lantus SoloStar) 100 UNIT/ML pen, INJECT 10 UNITS UNDER THE SKIN EVERY DAY AT BEDTIME, Disp: 15 mL, Rfl: 3 insulin pen needle (B-D UF III MINI PEN NEEDLES) 31G x 5 mm [facility] [place], Use daily as directed, Disp: 100 each, Rfl: 11 lisinopril 5 MG tablet, Take 1 tablet (5 mg) by mouth Daily, Disp: 30 tablet, Rfl: 11 metFORMIN XR (Glucophage-XR) 500 MG 24 hr tablet, Take 2 tablets (1,000 mg) by mouth in the morning and 2 tablets (1,000 mg) before bedtime. Do not crush, chew, or split.., Disp: 180 tablet, Rfl: 1 metoprolol succinate XL (Toprol-XL) 25 MG 24 hr tablet, Take 1 tablet by mouth 1 (one) time each day., Disp: , Rfl: mirabegron ER (Myrbetriq) 50 MG 24 hr tablet, Take 50 mg by mouth 1 (one) time each day at the same time, Disp: , Rfl: omega-3, EPA+DHA, (Super Maple-3) 1000 MG capsule, 1 capsule, Disp: , Rfl: terbinafine (LamISIL) 250 MG tablet, TAKE 1 TABLET BY MOUTH EVERY DAY, Disp: 90 tablet, Rfl: 0 traMADol (Ultram) 50 MG tablet, Take 1 tablet (50 mg) by mouth every 8 (eight) hours if needed for severe pain, Disp: 30 tablet, Rfl: 0 Past Surgical History: Procedure Laterality Date CARDIAC PACEMAKER PLACEMENT 03/2021 CARDIAC SURGERY 2019 CORONARY STENT PLACEMENT 8 stents TOTAL KNEE ARTHROPLASTY 2011 Social History Socioeconomic History Marital status: Spouse name: Not on file Number of children: Not on file Years of education: Not on file Highest education level: Not on file Occupational History Not on file Tobacco Use Smoking status: Never Smokeless tobacco: Never Substance and Sexual Activity Alcohol use: Not Currently Comment: caffeine intake : none Drug use: Never Sexual activity: Not Currently Other Topics Concern Not on file Social History Narrative Not on file Social Drivers of Health Financial Resource Strain: Low Risk (03/25/2024) Overall Financial Resource Strain (CARDIA) Difficulty of Paying Living Expenses: Not hard at all Food Insecurity: No Food Insecurity (03/25/2024) Hunger Vital Sign Worried About Running Out of Food in the Last Year: Never true Ran Out of Food in the Last Year: Never true Transportation Needs: No Transportation Needs (03/25/2024) PRAPARE - Transportation Lack of Transportation (Medical): No Lack of Transportation (Non-Medical): No Physical Activity: Inactive (03/25/2024) Exercise Vital Sign Days of Exercise per Week: 0 days Minutes of Exercise per Session: 0 min Stress: No Stress Concern Present (03/25/2024) [employer] - Occupational Stress Questionnaire Feeling of Stress : Not at all Recent Concern: Stress - Stress Concern Present (03/17/2024) [employer] - Occupational Stress Questionnaire Feeling of Stress : To some extent Social Connections: Moderately Integrated (03/25/2024) Social Connection and Isolation Panel [NHANES] Frequency of Communication with Friends and Family: Three times a week Frequency of Social Gatherings with Friends and Family: Not on file Attends Yazidi Services: More than 4 times per year Active Member of Clubs or Organizations: No Attends Club or Organization Meetings: Never Marital Status: Intimate Partner Violence: Not on file Housing Stability: Low Risk (03/25/2024) Housing Stability Vital Sign Unable to Pay for Housing in the Last Year: No Number of Times Moved in the Last Year: 0 Homeless in the Last Year: No Subjective Patient ID: HPI Patient presents today status post DISE a week ago. During the procedure 85+ percent of his obstruction secondary to posterior tongue movement obstructing the airway, he has virtually no lateral wall movement and nearly 100 percent at the level of the soft palate. Review of Systems ROS The specialty specific review of systems is noncontributory except for that recorded in the intake questionnaire and /or described in the history of present illness. Objective ENT Physical Exam Physical Exam Constitutional: Appearance: Normal appearance. HENT: Head: Atraumatic. Ears: External ear shows no abnormality Bilateral ear canals are clear Tympanic membranes intact, no evidence of middle ear fluid or other pathology. Nose: External nose appears to be normal Nares patent. Septal deviation to the right No evidence of polyp, mass or pus bilaterally. Oral Cavity: No evidence of trismus Lips appear normal Dental decent Tongue of normal size and configuration, floor of mouth mucosa clear. Buccal mucosa shows no evidence of ulceration, mass or other abnormality Hard palate soft palate mucosa intact with no evidence of mass, ulceration or other abnormality. Mild laxity of the soft palate Uvula of normal size and configuration Oropharynx: Tonsils atrophic Posterior pharyngeal wall normal Neck: No evidence of palpable abnormality Thyroid without evidence of thyromegaly or mass. No cervical lymphadenopathy present. Cardiovascular: Rate and Rhythm: Normal rate and regular rhythm. . Skin: General: Skin is warm and dry. Neurological: General: No focal deficit present. Mental Status: alert and oriented to person, place, and time. Assessment/Plan Ramon was seen today for sleep apnea. Diagnoses and all orders for this visit: Obstructive sleep apnea (Primary) Comments: Patient anatomically as a reasonable candidate for the inspire implant and he would like to proceed. Intolerance of continuous positive airway pressure (CPAP) ventilation Comments: See above The risks and benefits of implantation of a hypoglossal nerve stimulator(Inspire or similar device)were discussed with the patient. These include but are not limited to bleeding, infection, poor cosmetic outcome, scaring, need for further surgery, neurovascular injury, difficulty speaking or eating, damage to the marginal mandibular nerve, pneumothorax, need for a chest tube, need to explant the device, etc. The patient has consented to proceed. We will get this approved by the insurance company, call him to schedule once it is. documented in this encounter [facility] 09-29-2024 History of Present illness Narrative Images from the original note were not included. HPI: Patient presents to clinic for diabetic nailcare. They were diagnosed with diabetes years. He states that they has no pain in the feet. There is pain related to the toenails, especially with shoe gear and pressure. They have difficulty with trimming the nails due to trouble reaching them and because of the thickness in the nail. Patient has not problems with slow healing wounds or sores on the feet. Patient does have burning, tingling and numbness in the feet. Patient's PCP is Tom Field DO. Date of Last visit: 06/18/24. No other pedal complaints at this time. Exam: General Examination: GENERAL APPEARANCE: awake, aware of surroundings, in no acute distress FOOT EXAM: 09/24/24 Vascular: DORSALIS PEDIS PULSE: 2/4 bilateral POSTERIOR TIBIAL PULSE: 1/4 bilateral TEMPERATURE GRADIENT: warm to cool EDEMA: none CAPILLARY FILLING TIME(sec): capillary fill intact bilateral digits less than 3 secs Neurologic: VIBRATORY: decreased to the hallux IPJ bilateral SEMMES-MIKE 5.07 MONOFILAMENT: decreased along the toes, intact to the plantar ball of the foot and toes Dermatologic: SKIN FINDINGS: normal HYPERKERATOSIS: none NAIL PATHOLOGY: digits 1-5 bilateral are intact SKIN PATHOLOGY: thin, decreased hair growth bilateral Nail Pathology: Left Foot: 1 (great toe): Long, Thick, Crumbly, Deformed, Discolored, Brittle, Dystrophic 2: Long, Thick, Crumbly, Deformed, Discolored, Brittle, Dystrophic 3: Long, Thick, Crumbly, Deformed, Discolored, Brittle, Dystrophic 4: Long, Thick, Crumbly, Deformed, Discolored, Brittle, Dystrophic 5: Long, Thick, Crumbly, Deformed, Discolored, Brittle, Dystrophic Nail Pathology: Right Foot: 1 (great toe): Long, Thick, Crumbly, Deformed, Discolored, Brittle, Dystrophic 2: Long, Thick, Crumbly, Deformed, Discolored, Brittle, Dystrophic 3: Long, Thick, Crumbly, Deformed, Discolored, Brittle, Dystrophic 4: Long, Thick, Crumbly, Deformed, Discolored, Brittle, Dystrophic 5: Long, Thick, Crumbly, Deformed, Discolored, Brittle, Dystrophic Orthopedic: FOOT MORPHOLOGY: neutral JOINT RANGE OF MOTION: without pain or crepitus to the ankle, subtalar joint and 1st MPJ bilateral DEFORMITIES: mild hammertoes bilateral MUSCLE STRENGTH: 5/5 for all pedal groups tested Modifier: -: Q9 Assessments: ICD 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 Nails were debrided in length and thickness by manual and mechanical means. 2. Advised patient on continued proper diabetic foot care including daily monitoring of their feet for any new complaints or concerns that may arise. 3. Discussed importance of tight blood sugar control to prevent future complications. 4. RTC: 9-12 weeks or as needed if problems arise. documented in this encounter [facility] 09-27-2024 History of Present illness Narrative mmm mmm documented in this encounter [facility] 09-23-2024 Telephone encounter Note Robert [facility] calls to state that they've set up pt for PT once weekly for the next 9 weeks. [facility] 09-23-2024 Miscellaneous Notes Robert [facility] calls to state that they've set up pt for PT once weekly for the next 9 weeks. documented in this encounter [facility] 09-06-2024 History of Present illness Narrative Subjective Ramon Cruz is a 79 y.o. year old male Chief Complaint Patient presents with Parkinson's Disease Past Medical History: Diagnosis Date Diabetes (CMS/HCC) Heart attack (CMS/HCC) Hypercholesteremia (CMS/HCC) Hypertension (CMS/HCC) Past Surgical History: Procedure Laterality Date CARDIAC PACEMAKER PLACEMENT 03/2021 CARDIAC SURGERY 2019 CORONARY STENT PLACEMENT 8 stents TOTAL KNEE ARTHROPLASTY 2009; 2011 Family History Problem Relation Name Age of Onset Cancer Mother Heart disease Father Diabetes Sister Social History Tobacco Use Smoking status: Never Smokeless tobacco: Never Substance Use Topics Alcohol use: Not Currently Comment: caffeine intake : none Medication Documentation Review Audit Reviewed by Marcia eSlf MA (Maintenance Planner) on 09/06/24 at 1026 Medication Order Taking? Sig Documenting Provider Last Dose Status acetaminophen (Tylenol) 500 MG tablet [id number] No Take 1,000 mg by mouth Daily Taking Active amLODIPine (Norvasc) 10 MG tablet [id number] No 1 (one) time each day at the same time. Historical Provider, Taking Active aspirin 81 MG EC tablet [id number] Take 1 tablet (81 mg) by mouth Daily Tom Field DO Active atorvastatin (Lipitor) 20 MG tablet [id number] TAKE 1 TABLET BY MOUTH EVERYDAY AT THE SAME TIME Tom Field DO Active carbidopa-levodopa (Sinemet) 25-100 MG tablet [id number] TAKE 1 TABLET BY MOUTH AT 8AM, NOON, 3PM AND 6PM Fer García NP Active Continuous Glucose Sensor (FreeStyle Lillian 2 Sensor) [facility] [place] [id number] No 1 Units every 14 (fourteen) days Tom Field DO Taking Active Continuous Glucose Sensor (FreeStyle Lillian 2 Sensor) mis [id number] 1 Units every 14 (fourteen) days Tom Field DO Active insulin glargine (Lantus SoloStar) 100 UNIT/ML pen [id number] No INJECT 10 UNITS UNDER THE SKIN EVERY DAY AT BEDTIME Tom Field DO Taking Active insulin pen needle (B-D UF III MINI PEN NEEDLES) 31G x 5 mm misc [id number] No Use daily as directed Tom Field DO Taking Active lisinopril 5 MG tablet [id number] No Take 1 tablet (5 mg) by mouth Daily Tom Field DO Taking Active metFORMIN XR (Glucophage-XR) 500 MG 24 hr tablet [id number] Take 2 tablets (1,000 mg) by mouth in the morning and 2 tablets (1,000 mg) before bedtime. Do not crush, chew, or split.. Tom Field DO Active metoprolol succinate XL (Toprol-XL) 25 MG 24 hr tablet [id number] No Take 1 tablet by mouth 1 (one) time each day. Historical Provider, Taking Active mirabegron ER (Myrbetriq) 50 MG 24 hr tablet [id number] No Take 50 mg by mouth 1 (one) time each day at the same time Taking Active Misc. Devices (Rollator Ultra-Light) [facility] [place] [id number] No 1 rollator with seat for every day use Tom Field DO Taking Active omega-3, EPA+DHA, (Super Maple-3) 1000 MG capsule [id number] No 1 capsule Tom Field DO Taking Active terbinafine (LamISIL) 250 MG tablet [id number] TAKE 1 TABLET BY MOUTH EVERY DAY Sarah Connell DPM Active traMADol (Ultram) 50 MG tablet [id number] Take 1 tablet (50 mg) by mouth every 8 (eight) hours if needed for severe pain Tom Field DO Active HPI HPI PARKINSON DISEASE -on the sinemet -denies any tremor -slowness in movement has become a little more slow - reports more shuffling of his feet -admits to some imbalance -denies any recent falls -occasional freezing up spells -sleeping well at night - states he will yell out in his sleep on occasion -averages 8 hours a night -does not wake feeling rested -currently working on Needle ROS Review of Systems Constitutional: Positive for fatigue. Negative for appetite change. Respiratory: Negative for cough and shortness of breath. Cardiovascular: Negative for chest pain and palpitations. Gastrointestinal: Negative for nausea and vomiting. Musculoskeletal: Positive for gait problem. Negative for back pain and neck pain. Neurological: Negative for dizziness, tremors, numbness and headaches. Objective Visit Vitals BP 130/74 Pulse 66 Resp 16 Ht 5' 7 Wt 190 lb SpO2 95% BMI 29.76 kg/m Smoking Status Never BSA 2.02 m GENERAL Apical RRR, no murmur Neurological Exam Mental Status Awake, alert and oriented to person, place and time. Speech is normal. Language is fluent with no aphasia. Attention and concentration are normal. Fund of knowledge is appropriate for level of education. Cranial Nerves CN II: Visual acuity is normal. Visual abreu full to confrontation. CN III, IV, : Extraocular movements intact bilaterally. Normal lids and orbits bilaterally. Pupils equal round and reactive to light bilaterally. CN V: Facial sensation is normal. Masked facies. CN VII: Full and symmetric facial movement. CN VIII: Hearing is normal. CN IX, X: Palate elevates symmetrically. Normal gag reflex. CN XI: Shoulder shrug strength is normal. CN XII: Tongue midline without atrophy or fasciculations. Sensory Light touch is normal in upper and lower extremities. Coordination Right: Rapid alternating movement abnormality:Left: Rapid alternating movement abnormality: Bradykinesia noted with MONY. Gait Slow, shuffle gait. Decreased arm swing bilaterally. Uses arms to get out of the chair. Motor Examination RUE Strength deltoid, biceps, triceps, wrist extensors, wrist extensors, wrist flexor, physician coding specialist strength 5/5. LUE Strength deltoid, biceps, triceps, wrist extensors, wrist extensors, wrist flexor, physician coding specialist strength 5/5. RLE Strength illopsoas, quadriceps, tibialis anterior, and gastrocnemius strength 5/5. LLE Strength illopsoas, quadriceps, tibialis anterior, and gastrocnemius strength 5/5. Slight cogwheel rigidity at the wrist bilaterally and elbows, L>R Reflexes: RUE biceps reflex 2, brachioradialis reflex 2 LUE biceps reflex 2, brachioradialis reflex 2 RLE knee reflex 2, LLE knee reflex 2, Assessment and Plan Diagnoses and all orders for this visit: 1. Parkinsonism - 79-year-old male who [place] [facility] [place] with altered mental status and general unwell feeling for approximately 2 weeks. Medical history includes obstructive sleep apnea, diabetes mellitus type 2, hyperlipidemia, coronary artery disease, cellulitis and hypertension. He had a CT head and MRI brain that did not reveal acute pathology. He was noted to exhibit Parkinsonian features and started on Sinemet 25/100 TID. His and daughter state they have seen improvement in his gait and he is moving better but the medication seem to wear off with a definite notable difference. He did fall in February 2024 after his hospitalization and was evaluated at [facility] with nonacute CT head and cervical spine that were nonacute. I counseled the patient, and daughter on the diagnosis, prognosis, and possible treatment options. His Sinemet has since been increased to QID to see if this minimizes off time. He has had increase in freezing episodes and bradykinesia reportedly. I counseled the patient and family on fall precautions. I discussed the high risk of trauma and debility associated with falls. Patient verbalized understanding. He has a walker that he uses at times. He would likely benefit to repeat PT and ST. 2. LOPEZ - Patient has a CPAP that he does not wear. He followed with Dr Gonsales [place] [facility] His will call to schedule an appointment to discuss alternative therapies and/or mask. He is working towards Inspire device. We discussed the affects and risks associated with untreated LOPEZ Evaluation [place] [facility] [place] [address] scan of the head can cervical spine nonacute 2. MRI scan of the brain was nonacute. Cortical atrophy and small-vessel ischemic changes noted 3. TSH 1.69. BUN 31 and creatinine 1.46. PLAN Increase sinemet to 25/100 2 tabs PO 8am, 1 tab PO noon, 2 tabs PO 3pm, and 1 tab PO 6pm. I counseled the patient on fall precautions. I discussed the high risk of trauma and debility associated with falls. Patient verbalized understanding. I will refer patient to home health PT for strengthening and balance I will refer patient to home health ST Fall precautions discussed. I will see the patient back in 2-3 months or sooner if needed documented in this encounter [facility] 08-26-2024 Telephone encounter Note Patient's recent lab work in June was normal for LFTs. He can continue with the Lamisil. Rx was sent. [facility] 08-26-2024 Miscellaneous Notes Patient's recent lab work in June was normal for LFTs. He can continue with the Lamisil. Rx was sent. documented in this encounter [facility] 08-23-2024 Telephone encounter Note Rescheduled appt for after labs are completed. [facility] 08-23-2024 Miscellaneous Notes Rescheduled appt for after labs are completed. Pt's spouse called and wanted to make sure the labs ordered are active and can be done prior to appointment on 09/27. I told her yes they were active. She would like someone to call her to confirm this. documented in this encounter [facility] 08-23-2024 Telephone encounter Note Pt's spouse called and wanted to make sure the labs ordered are active and can be done prior to appointment on 09/27. I told her yes they were active. She would like someone to call her to confirm this. [facility] 08-10-2024 History of Present illness Narrative Allergies as of 08/10/2024 - Reviewed 06/30/2024 Allergen Reaction Noted Lactose 03/01/2024 Past Medical History: Diagnosis Date Diabetes ([facility]) Heart attack (CMS/HCC) Hypercholesteremia (CMS/HCC) Hypertension (CMS/HCC) Current Outpatient Medications: acetaminophen (Tylenol) 500 MG tablet, Take 1,000 mg by mouth Daily, Disp: , Rfl: amLODIPine (Norvasc) 10 MG tablet, 1 (one) time each day at the same time., Disp: , Rfl: aspirin 81 MG EC tablet, Take 1 tablet (81 mg) by mouth Daily, Disp: 30 tablet, Rfl: 11 atorvastatin (Lipitor) 20 MG tablet, Take 1 tablet (20 mg) by mouth 1 (one) time each day at the same time, Disp: 90 tablet, Rfl: 1 carbidopa-levodopa (Sinemet) 25-100 MG tablet, TAKE 1 TABLET BY MOUTH AT 8AM, NOON, 3PM, AND 6PM, Disp: 360 tablet, Rfl: 0 Continuous Glucose Sensor (FreeStyle Lillian 2 Sensor) misc, 1 Units every 14 (fourteen) days, Disp: 1 each, Rfl: 0 Continuous Glucose Sensor (FreeStyle Lillian 2 Sensor) misc, 1 Units every 14 (fourteen) days, Disp: 2 each, Rfl: 11 insulin glargine (Lantus SoloStar) 100 UNIT/ML pen, INJECT 10 UNITS UNDER THE SKIN EVERY DAY AT BEDTIME, Disp: 15 mL, Rfl: 3 insulin pen needle (B-D UF III MINI PEN NEEDLES) 31G x 5 mm misc, Use daily as directed, Disp: 100 each, Rfl: 11 lisinopril 5 MG tablet, Take 1 tablet (5 mg) by mouth Daily, Disp: 30 tablet, Rfl: 11 metFORMIN XR (Glucophage-XR) 500 MG 24 hr tablet, Take 2 tablets (1,000 mg) by mouth in the morning and 2 tablets (1,000 mg) before bedtime. Do not crush, chew, or split.., Disp: 180 tablet, Rfl: 1 metoprolol succinate XL (Toprol-XL) 25 MG 24 hr tablet, Take 1 tablet by mouth 1 (one) time each day., Disp: , Rfl: mirabegron ER (Myrbetriq) 50 MG 24 hr tablet, Take 50 mg by mouth 1 (one) time each day at the same time, Disp: , Rfl: Misc. Devices (Rollator Ultra-Light) misc, 1 rollator with seat for every day use, Disp: 1 each, Rfl: 0 omega-3, EPA+DHA, (Super Maple-3) 1000 MG capsule, 1 capsule, Disp: , Rfl: terbinafine (LamISIL) 250 MG tablet, TAKE 1 TABLET BY MOUTH EVERY DAY, Disp: 90 tablet, Rfl: 0 traMADol (Ultram) 50 MG tablet, Take 1 tablet (50 mg) by mouth Daily as needed for severe pain, Disp: 30 tablet, Rfl: 0 Past Surgical History: Procedure Laterality Date CARDIAC PACEMAKER PLACEMENT 03/2021 CARDIAC SURGERY 2019 CORONARY STENT PLACEMENT 8 stents TOTAL KNEE ARTHROPLASTY 2009; 2011 Social History Socioeconomic History Marital status: Spouse name: Not on file Number of children: Not on file Years of education: Not on file Highest education level: Not on file Occupational History Not on file Tobacco Use Smoking status: Never Smokeless tobacco: Never Substance and Sexual Activity Alcohol use: Not Currently Comment: caffeine intake : none Drug use: Never Sexual activity: Not Currently Other Topics Concern Not on file Social History Narrative Not on file Social Drivers of Health Financial Resource Strain: Low Risk (03/25/2024) Overall Financial Resource Strain (CARDIA) Difficulty of Paying Living Expenses: Not hard at all Food Insecurity: No Food Insecurity (03/25/2024) Hunger Vital Sign Worried About Running Out of Food in the Last Year: Never true Ran Out of Food in the Last Year: Never true Transportation Needs: No Transportation Needs (03/25/2024) PRAPARE - Transportation Lack of Transportation (Medical): No Lack of Transportation (Non-Medical): No Physical Activity: Inactive (03/25/2024) Exercise Vital Sign Days of Exercise per Week: 0 days Minutes of Exercise per Session: 0 min Stress: No Stress Concern Present (03/25/2024) [employer] - Occupational Stress Questionnaire Feeling of Stress : Not at all Recent Concern: Stress - Stress Concern Present (03/17/2024) [employer] - Occupational Stress Questionnaire Feeling of Stress : To some extent Social Connections: Moderately Integrated (03/25/2024) Social Connection and Isolation Panel [NHANES] Frequency of Communication with Friends and Family: Three times a week Frequency of Social Gatherings with Friends and Family: Not on file Attends Yazidi Services: More than 4 times per year Active Member of Clubs or Organizations: No Attends Club or Organization Meetings: Never Marital Status: Intimate Partner Violence: Not on file Housing Stability: Low Risk (03/25/2024) Housing Stability Vital Sign Unable to Pay for Housing in the Last Year: No Number of Times Moved in the Last Year: 0 Homeless in the Last Year: No Subjective Patient ID: HPI Patient is a 79-year-old male referred by the sleep lab for consideration of inspire. Patient has been diagnosed with moderately severe sleep apnea, RDI of 25, initially was compliant with CPAP but really isn't using it any longer. He feels claustrophobic with the, often ripping it off at nighttime. He has some underlying medical issues including multiple coronary stents and has a pacemaker. Review of Systems ROS The specialty specific review of systems is noncontributory except for that recorded in the intake questionnaire and /or described in the history of present illness. Objective ENT Physical Exam Physical Exam Constitutional: Appearance: Normal appearance. HENT: Head: Atraumatic. Ears: External ear shows no abnormality Bilateral ear canals are clear Tympanic membranes intact, no evidence of middle ear fluid or other pathology. Nose: External nose appears to be normal Nares patent. Septal deviation to the left No evidence of polyp, mass or pus bilaterally. Oral Cavity: No evidence of trismus Lips appear normal Dental , edentulous Tongue of normal size and configuration, floor of mouth mucosa clear. Buccal mucosa shows no evidence of ulceration, mass or other abnormality Hard palate soft palate mucosa intact with no evidence of mass, ulceration or other abnormality Uvula of normal size and configuration Oropharynx: Tonsils 1+ Posterior pharyngeal wall normal Neck: No evidence of palpable abnormality Thyroid without evidence of thyromegaly or mass. No cervical lymphadenopathy present. Cardiovascular: Rate and Rhythm: Normal rate and regular rhythm. . Skin: General: Skin is warm and dry. Neurological: General: No focal deficit present. Mental Status: alert and oriented to person, place, and time. FIBEROPTIC NASOPHARYNGOLARYNGOSCOPY A diagnostic flexible fiberoptic laryngoscopy was performed. The flexible fiberoptic laryngoscope was placed into the nose and advanced to the level of the tip of the epiglottis. Examination of the larynx including both surfaces of the epiglottis false and true vocal folds, arytenoids and surrounding mucosal surfaces show no evidence of lesion, ulceration or mass. Normal bilateral true vocal fold motion is present. Bilateral piriform sinuses and base of tongue appear without lesion . Patient has significant retroflexion of epiglottis. With extrusion of the tongue that takes care of itself. Valadez's maneuver performed at the level of the tongue base shows about a 50 percent posterior movement, very minimal lateral wall collapse. 100 percent collapse at the level of soft palate. Assessment/Plan Ramon was seen today for inspire. Diagnoses and all orders for this visit: Obstructive sleep apnea (Primary) Comments: Patient appears to be reasonable candidate for consideration of inspire. Would like to proceed. Intolerance of continuous positive airway pressure (CPAP) ventilation I explained drug-induced sleep endoscopy with the patient and his , he would like to undergo this. We will get that approved by insurance and schedule him once we have approval. documented in this encounter [facility] 06-30-2024 History of Present illness Narrative Images from the original note were not included. HPI: Patient presents to clinic for diabetic nailcare. They were diagnosed with diabetes years. He states that they has no pain in the feet. There is pain related to the toenails, especially with shoe gear and pressure. They have difficulty with trimming the nails due to trouble reaching them and because of the thickness in the nail. Patient has not problems with slow healing wounds or sores on the feet. Patient does have burning, tingling and numbness in the feet. Patient's PCP is Tom Field DO. Date of Last visit: 03/11/24. No other pedal complaints at this time. Exam: General Examination: GENERAL APPEARANCE: awake, aware of surroundings, in no acute distress FOOT EXAM: 06/30/24 Vascular: DORSALIS PEDIS PULSE: 2/4 bilateral POSTERIOR TIBIAL PULSE: 1/4 bilateral TEMPERATURE GRADIENT: warm to cool EDEMA: none CAPILLARY FILLING TIME(sec): capillary fill intact bilateral digits less than 3 secs Neurologic: VIBRATORY: decreased to the hallux IPJ bilateral SEMMES-MIKE 5.07 MONOFILAMENT: decreased along the toes, intact to the plantar ball of the foot and toes Dermatologic: SKIN FINDINGS: normal HYPERKERATOSIS: none NAIL PATHOLOGY: digits 1-5 bilateral are intact SKIN PATHOLOGY: thin, decreased hair growth bilateral Nail Pathology: Left Foot: 1 (great toe): Long, Thick, Crumbly, Deformed, Discolored, Brittle, Dystrophic 2: Long, Thick, Crumbly, Deformed, Discolored, Brittle, Dystrophic 3: Long, Thick, Crumbly, Deformed, Discolored, Brittle, Dystrophic 4: Long, Thick, Crumbly, Deformed, Discolored, Brittle, Dystrophic 5: Long, Thick, Crumbly, Deformed, Discolored, Brittle, Dystrophic Nail Pathology: Right Foot: 1 (great toe): Long, Thick, Crumbly, Deformed, Discolored, Brittle, Dystrophic 2: Long, Thick, Crumbly, Deformed, Discolored, Brittle, Dystrophic 3: Long, Thick, Crumbly, Deformed, Discolored, Brittle, Dystrophic 4: Long, Thick, Crumbly, Deformed, Discolored, Brittle, Dystrophic 5: Long, Thick, Crumbly, Deformed, Discolored, Brittle, Dystrophic Orthopedic: FOOT MORPHOLOGY: neutral JOINT RANGE OF MOTION: without pain or crepitus to the ankle, subtalar joint and 1st MPJ bilateral DEFORMITIES: mild hammertoes bilateral MUSCLE STRENGTH: 5/5 for all pedal groups tested Modifier: -: Q9 Assessments: ICD 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 Affected nails were debrided in length and thickness by manual and mechanical means. 2. Instructed patient that there is clearing noted to the affected tonails. We discussed that it can take 6-9 months for a toenail to completely grow out and that they should continue to notice improvement over time. 3. Advised patient on conservative treatment options to prevent recurrence. 4. RTC: 3-4 months for recheck. Diabetes, Onychomycosis: 1. Nails were debrided in length and thickness by manual and mechanical means. 2. Advised patient on continued proper diabetic foot care including daily monitoring of their feet for any new complaints or concerns that may arise. 3. Discussed importance of tight blood sugar control to prevent future complications. 4. RTC: 9-12 weeks or as needed if problems arise. documented in this encounter [facility] 06-18-2024 History of Present illness Narrative Images from the original note were not included. SUBJECTIVE: Ramon Cruz is a 78 y.o. male presents with chief complaint of No chief complaint on file. Pt presents to discuss his lab results. Pt's notes that pt now has diabetic retinopathy. No other concerns at this time. Review of Systems: Review of Systems All other systems reviewed and are negative. Problem List: Patient Active Problem List Diagnosis Benign prostatic hyperplasia Coronary artery disease (CMS/HCC) Diabetic renal disease (CMS/HCC) Exercise-induced angina (CMS/HCC) Heart failure (CMS/HCC) Hyperlipidemia (CMS/HCC) Hypothyroid (CMS/HCC) Obstructive sleep apnea syndrome Hypertension (CMS/HCC) Peripheral vascular disease (CMS/HCC) Sick sinus syndrome (CMS/HCC) Stage 3a chronic kidney disease (HCC) (CMS/HCC) Stented coronary artery Type 2 diabetes mellitus with hyperglycemia, without long-term current use of insulin (CMS/HCC) Vitamin D deficiency Generalized osteoarthritis DDD (degenerative disc disease), lumbosacral Parkinsonism (CMS/HCC) PAC (premature atrial contraction) S/P placement of cardiac pacemaker S/P PTCA (percutaneous transluminal coronary angioplasty) Past Medical History: Past Medical History: Diagnosis Date Diabetes (CMS/HCC) Heart attack (CMS/HCC) Hypercholesteremia (CMS/HCC) Hypertension (CMS/HCC) Family History: Family History Problem Relation Name Age of Onset Cancer Mother Heart disease Father Diabetes Sister Allergies: Allergies Allergen Reactions Lactose Surgical History: Past Surgical History: Procedure Laterality Date CARDIAC PACEMAKER PLACEMENT 03/2021 CARDIAC SURGERY 2019 CORONARY STENT PLACEMENT 8 stents TOTAL KNEE ARTHROPLASTY 2009; 2011 Social History: Social Determinants of Health Tobacco Use: Low Risk (06/15/2024) Patient History Smoking Tobacco Use: Never Smokeless Tobacco Use: Never Passive Exposure: Not on file Alcohol Use: Not At Risk (03/25/2024) AUDIT-C Frequency of Alcohol Consumption: Monthly or less Average Number of Drinks: 1 or 2 Frequency of Binge Drinking: Never Financial Resource Strain: Low Risk (03/25/2024) Overall Financial Resource Strain (CARDIA) Difficulty of Paying Living Expenses: Not hard at all Food Insecurity: No Food Insecurity (03/25/2024) Hunger Vital Sign Worried About Running Out of Food in the Last Year: Never true Ran Out of Food in the Last Year: Never true Transportation Needs: No Transportation Needs (03/25/2024) PRAPARE - Transportation Lack of Transportation (Medical): No Lack of Transportation (Non-Medical): No Physical Activity: Inactive (03/25/2024) Exercise Vital Sign Days of Exercise per Week: 0 days Minutes of Exercise per Session: 0 min Stress: No Stress Concern Present (03/25/2024) [employer] - Occupational Stress Questionnaire Feeling of Stress : Not at all Recent Concern: Stress - Stress Concern Present (03/17/2024) [employer] - Occupational Stress Questionnaire Feeling of Stress : To some extent Social Connections: Moderately Integrated (03/25/2024) Social Connection and Isolation Panel [NHANES] Frequency of Communication with Friends and Family: Three times a week Frequency of Social Gatherings with Friends and Family: Not on file Attends Yazidi Services: More than 4 times per year Active Member of Clubs or Organizations: No Attends Club or Organization Meetings: Never Marital Status: Intimate Partner Violence: Not on file Depression: Not at risk (06/07/2024) PHQ-2 PHQ-2 Score: 0 Housing Stability: Low Risk (03/25/2024) Housing Stability Vital Sign Unable to Pay for Housing in the Last Year: No Number of Times Moved in the Last Year: 0 Homeless in the Last Year: No Health Literacy: Adequate Health Literacy (03/25/2024) B1300 Health Literacy Frequency of need for help with medical instructions: Rarely OBJECTIVE: Visit Vitals Smoking Status Never Physical Exam Constitutional: General: He is not in acute distress. Appearance: Normal appearance. HENT: Head: Normocephalic and atraumatic. Mouth/Throat: Mouth: Mucous membranes are moist. Neck: Vascular: No carotid bruit. Cardiovascular: Rate and Rhythm: Normal rate and regular rhythm. Pulses: Normal pulses. Heart sounds: No murmur heard. No friction rub. No gallop. Pulmonary: Effort: No respiratory distress. Breath sounds: Normal breath sounds. No wheezing, rhonchi or rales. Abdominal: General: Bowel sounds are normal. There is no distension. Palpations: Abdomen is soft. Tenderness: There is no abdominal tenderness. Musculoskeletal: Cervical back: Neck supple. No tenderness. Right lower leg: Edema present. Left lower leg: Edema present. Skin: General: Skin is warm and dry. Findings: Erythema: of LLE; warm to touch; no abscesses or abrasions. Neurological: General: No focal deficit present. Mental Status: He is alert and oriented to person, place, and time. Motor: Weakness present. Coordination: Coordination abnormal. Gait: Gait abnormal (slow; shuffling). Psychiatric: Mood and Affect: Mood normal. Behavior: Behavior normal. Judgment: Judgment normal. Recent Results (from the past 672 hour(s)) CBC and differential Collection Time: 06/15/24 7:51 AM Result Value Ref Range WBC 9.9 3.4 - 10.8 x10E3/uL RBC 3.82 (L) 4.14 - 5.80 x10E6/uL Hgb 11.2 (L) 13.0 - 17.7 g/dL Hct 36.2 (L) 37.5 - 51.0 % MCV 95 79 - 97 fL MCH 29.3 26.6 - 33.0 pg MCHC 30.9 (L) 31.5 - 35.7 g/dL RDW 13.0 11.6 - 15.4 % Platelets 302 150 - 450 x10E3/uL Neutrophils 56 Not Estab. % Lymphs 30 Not Estab. % Monocytes 7 Not Estab. % Eos 5 Not Estab. % Basos 1 Not Estab. % Neutrophils Abs 5.6 1.4 - 7.0 x10E3/uL Lymphs Abs 3.0 0.7 - 3.1 x10E3/uL MonocytesAbs 0.7 0.1 - 0.9 x10E3/uL Eos Abs 0.5 (H) 0.0 - 0.4 x10E3/uL Baso Abs 0.1 0.0 - 0.2 x10E3/uL Immature Granulocytes 1 Not Estab. % Immature Grans Abs 0.1 0.0 - 0.1 x10E3/uL Comprehensive metabolic panel Collection Time: 06/15/24 7:51 AM Result Value Ref Range Glucose 165 (H) 70 - 99 mg/dL BUN 43 (H) 8 - 27 mg/dL Creat 1.63 (H) 0.76 - 1.27 mg/dL EGFR 43 (L) >59 mL/min/1.73 BUN/Creat Ratio 26 (H) 10 - 24 Sodium 137 134 - 144 mmol/L Potassium 5.5 (H) 3.5 - 5.2 mmol/L Chloride 102 96 - 106 mmol/L Carbon Dioxide 22 20 - 29 mmol/L Calcium 9.5 8.6 - 10.2 mg/dL Protein Total 6.7 6.0 - 8.5 g/dL Albumin 3.9 3.8 - 4.8 g/dL Globulin Total 2.8 1.5 - 4.5 g/dL Bili Total 0.2 0.0 - 1.2 mg/dL Alk Phosphatase 172 (H) 44 - 121 IU/L AST 14 0 - 40 IU/L ALT <5 0 - 44 IU/L Lipid panel Collection Time: 06/15/24 7:51 AM Result Value Ref Range Cholesterol, Total 132 100 - 199 mg/dL Triglycerides 149 0 - 149 mg/dL HDL Cholesterol 43 >39 mg/dL VLDL Cholesterol Jose 26 5 - 40 mg/dL LDL Chol Calc (NIH) 63 0 - 99 mg/dL Microalbumin / creatinine urine ratio Collection Time: 06/15/24 7:51 AM Result Value Ref Range Creat Ur 93.3 Not Estab. mg/dL Albumin Ur 17.0 Not Estab. ug/mL Alb/Creat Ratio Urine 18 0 - 29 mg/g creat Hemoglobin A1c Collection Time: 06/15/24 7:51 AM Result Value Ref Range HgbA1C 7.6 (H) 4.8 - 5.6 % Specimen Status Report Collection Time: 06/15/24 7:51 AM Result Value Ref Range Clindamycin Comment ASSESSMENT AND PLAN: Assessment/Plan Diagnoses and all orders for this visit: 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, unspecified vessel or lesion type, unspecified whether [place] or transplanted heart ([facility]) Problem is stable, will continue with current treatment plan. Call or return to clinic if any changes occur - aspirin 81 MG EC tablet; Take 1 tablet (81 mg) by mouth Daily - Microalbumin / creatinine urine ratio; Future - Comprehensive metabolic panel; Future Type 2 diabetes mellitus without complication, with long-term current use of insulin ([facility]) Reviewed labs and/or imaging at ov today. Will continue current treatment regimen and follow up at next scheduled visit unless problems arise. - metFORMIN XR (Glucophage-XR) 500 MG 24 hr tablet; Take 2 tablets (1,000 mg) by mouth in the morning and 2 tablets (1,000 mg) before bedtime. Do not crush, chew, or split.. - aspirin 81 MG EC tablet; Take 1 tablet (81 mg) by mouth Daily - Microalbumin / creatinine urine ratio; Future - Comprehensive metabolic panel; Future - Hemoglobin A1c; Future Diabetic nephropathy associated with type 2 diabetes mellitus (HCC) ([facility]) Reviewed labs and/or imaging at ov today. advised that it appears that he is dehydrated and this may be contributing to the kidney problems - Microalbumin / creatinine urine ratio; Future - Comprehensive metabolic panel; Future Mixed hyperlipidemia ([facility]) Reviewed labs and/or imaging at ov today. Will continue current treatment regimen and follow up at next scheduled visit unless problems arise. - CBC and differential; Future Hypertension, unspecified type ([facility]) Record Blood Pressures 2-4 times weekly and record. Return with readings at next appointment. Call with readings if sees significant changes - Microalbumin / creatinine urine ratio; Future - CBC and differential; Future Hypothyroidism, unspecified type ([facility]) Problem is stable, will continue with current treatment plan. Call or return to clinic if any changes occur - CBC and differential; Future Updated Medications: I have reviewed and reconciled the history and medication list with the patient today. Current Outpatient Medications: omega-3, EPA+DHA, (Super Maple-3) 1000 MG capsule, 1 capsule, Disp: , Rfl: acetaminophen (Tylenol) 500 MG tablet, Take 1,000 mg by mouth Daily, Disp: , Rfl: amLODIPine (Norvasc) 10 MG tablet, 1 (one) time each day at the same time., Disp: , Rfl: atorvastatin (Lipitor) 20 MG tablet, Take 1 tablet (20 mg) by mouth 1 (one) time each day at the same time, Disp: 90 tablet, Rfl: 1 carbidopa-levodopa (Sinemet) 25-100 MG tablet, TAKE 1 TABLET BY MOUTH AT 8AM, NOON, 3PM, AND 6PM, Disp: 360 tablet, Rfl: 0 clopidogrel (Plavix) 75 MG tablet, Take 1 tablet (75 mg) by mouth in the morning., Disp: 90 tablet, Rfl: 1 Continuous Glucose Sensor (FreeStyle Lillian 2 Sensor) misc, 1 Units every 14 (fourteen) days, Disp: 2 each, Rfl: 11 Continuous Glucose Sensor (FreeStyle Lillian 2 Sensor) misc, 1 Units every 14 (fourteen) days, Disp: 1 each, Rfl: 0 insulin glargine (Lantus SoloStar) 100 UNIT/ML pen, INJECT 10 UNITS UNDER THE SKIN EVERY DAY AT BEDTIME, Disp: 15 mL, Rfl: 3 insulin pen needle (B-D UF III MINI PEN NEEDLES) 31G x 5 mm misc, Use daily as directed, Disp: 100 each, Rfl: 11 lisinopril 5 MG tablet, Take 1 tablet (5 mg) by mouth Daily, Disp: 30 tablet, Rfl: 11 metFORMIN XR (Glucophage-XR) 500 MG 24 hr tablet, TAKE 1 TABLET BY MOUTH IN THE EVENING. TAKE WITH MEALS DO NOT CRUSH, CHEW, OR SPLIT., Disp: 90 tablet, Rfl: 1 metoprolol succinate XL (Toprol-XL) 25 MG 24 hr tablet, Take 1 tablet by mouth 1 (one) time each day., Disp: , Rfl: mirabegron ER (Myrbetriq) 50 MG 24 hr tablet, Take 50 mg by mouth 1 (one) time each day at the same time, Disp: , Rfl: Misc. Devices (Rollator Ultra-Light) misc, 1 rollator with seat for every day use, Disp: 1 each, Rfl: 0 terbinafine (LamISIL) 250 MG tablet, TAKE 1 TABLET BY MOUTH EVERY DAY, Disp: 90 tablet, Rfl: 0 traMADol (Ultram) 50 MG tablet, Take 1 tablet (50 mg) by mouth every 8 (eight) hours if needed for severe pain, Disp: 30 tablet, Rfl: 0 documented in this encounter [facility] 06-15-2024 History of Present illness Narrative Subjective Ramon Cruz is a 78 y.o. year old male No chief complaint on file. Past Medical History: Diagnosis Date Diabetes (CMS/HCC) Heart attack (CMS/HCC) Hypercholesteremia (CMS/HCC) Hypertension (CMS/HCC) Past Surgical History: Procedure Laterality Date CARDIAC PACEMAKER PLACEMENT 03/2021 CARDIAC SURGERY 2019 CORONARY STENT PLACEMENT 8 stents TOTAL KNEE ARTHROPLASTY 2009; 2011 Family History Problem Relation Name Age of Onset Cancer Mother Heart disease Father Diabetes Sister Social History Tobacco Use Smoking status: Never Smokeless tobacco: Never Substance Use Topics Alcohol use: Not Currently Comment: caffeine intake : none Medication Documentation Review Audit Reviewed by Frankie Cosby MA (Maintenance Planner) on 06/15/24 at 0841 Medication Order Taking? Sig Documenting Provider Last Dose Status acetaminophen (Tylenol) 500 MG tablet [id number] Take 1,000 mg by mouth Daily Active amLODIPine (Norvasc) 10 MG tablet [id number] 1 (one) time each day at the same time. Historical Provider, Active atorvastatin (Lipitor) 20 MG tablet [id number] Take 1 tablet (20 mg) by mouth 1 (one) time each day at the same time Tom Field DO Active carbidopa-levodopa (Sinemet) 25-100 MG tablet [id number] TAKE 1 TABLET BY MOUTH AT 8AM, NOON, 3PM, AND 6PM Fer García NP Active clopidogrel (Plavix) 75 MG tablet [id number] Take 1 tablet (75 mg) by mouth in the morning. Tom Field DO Active Continuous Glucose Fund Controller (FreeStyle L[place] 2 [place]) device [id number] Dispense 1 reader device for every day use to check blood sugars E11.9 Tom Field DO Active Continuous Glucose Sensor (FreeStyle Lillian 2 Sensor) [facility] [id number] 1 Units every 14 (fourteen) days Tom Field DO Active Continuous Glucose Sensor (FreeStyle Lillian 2 Sensor) [facility] [place] [id number] 1 Units every 14 (fourteen) days Tom Field DO Active insulin glargine (Lantus SoloStar) 100 UNIT/ML pen [id number] INJECT 10 UNITS UNDER THE SKIN EVERY DAY AT BEDTIME Tom Field DO Active insulin pen needle (B-D UF III MINI PEN NEEDLES) 31G x 5 mm [facility] [id number] Use daily as directed Tom Field DO Active lisinopril 5 MG tablet [id number] Take 1 tablet (5 mg) by mouth Daily Tom Field DO Active metFORMIN XR (Glucophage-XR) 500 MG 24 hr tablet [id number] TAKE 1 TABLET BY MOUTH IN THE EVENING. TAKE WITH MEALS DO NOT CRUSH, CHEW, OR SPLIT. Tom Field, DO Active metoprolol succinate XL (Toprol-XL) 25 MG 24 hr tablet [id number] Take 1 tablet by mouth 1 (one) time each day. Historical Provider, Active mirabegron ER (Myrbetriq) 50 MG 24 hr tablet [id number] Take 50 mg by mouth 1 (one) time each day at the same time Active Misc. Devices (Rollator Ultra-Light) [facility] [place] [id number] 1 rollator with seat for every day use Tom Field DO Active terbinafine (LamISIL) 250 MG tablet [id number] TAKE 1 TABLET BY MOUTH EVERY DAY Sarah Connell DPM Active traMADol (Ultram) 50 MG tablet [id number] Take 1 tablet (50 mg) by mouth every 8 (eight) hours if needed for severe pain Tom Field DO Active HPI HPI AMS/PARKINSON DISEASE -Patient states he is doing well on the sinemet, spouse says if he remembers to take the sinemet. Her forgets this on average once a day -His spouse states she check his vital signs at home which are good. -He felt tired and his daughter stated he was glassy eyed. -spouse states patient fell in March and was seen at [facility], was not admitted. Did hit his head. He fell into the tub after tripping on his shoes -he tripped over a folding chair and tripped on the chair and fell into the recliner, this was a month ago -He is tolerating the sinemet without side effects. -The patient has not had a tremor. -He did have bradykinesias and the sinemet is helping with this. His can tell when it wears off or he misses a dose -He denies changes in taste or smell. -He denies postural lightheadedness. -He was having freezing spells before starting sinemet but this had resolved since being on the medication. -He is still fatigued. spouse states this is all the time. -His appetite is better with antibiotic changes. -He denies nausea. -He is sleeping better. 8 hours during the night. -Patient admits to sleeping during the day. -He has trouble staying asleep. He has a CPAP that he does not wear. He refuses to wear the CPAP so has an appt to discuss the Inspire Device -he is taking tramadol for back pain at night ROS Review of Systems Constitutional: Positive for fatigue. Negative for appetite change. Respiratory: Negative for cough and shortness of breath. Cardiovascular: Negative for chest pain and palpitations. Gastrointestinal: Negative for nausea and vomiting. Musculoskeletal: Negative for back pain and neck pain. Neurological: Negative for dizziness, tremors, numbness and headaches. Objective Visit Vitals BP 126/60 Pulse 75 Ht 5' 8 Wt 194 lb BMI 29.50 kg/m Smoking Status Never BSA 2.05 m GENERAL Apical RRR, no murmur LS CTA throughout, dimished Carotid - no bruit Abdomen soft, BS normal Neurological Exam Mental Status Awake, alert and oriented to person, place and time. Speech is normal. Language is fluent with no aphasia. Attention and concentration are normal. Fund of knowledge is appropriate for level of education. Cranial Nerves CN II: Visual acuity is normal. Visual abreu full to confrontation. CN III, IV, : Extraocular movements intact bilaterally. Normal lids and orbits bilaterally. Pupils equal round and reactive to light bilaterally. CN V: Facial sensation is normal. Masked facies. CN VII: Full and symmetric facial movement. CN VIII: Hearing is normal. CN IX, X: Palate elevates symmetrically. Normal gag reflex. CN XI: Shoulder shrug strength is normal. CN XII: Tongue midline without atrophy or fasciculations. Sensory Light touch is normal in upper and lower extremities. Temperature is normal in upper and lower extremities. Vibration abnormality: Decreased at the knee, ankle and great toe bilaterally. Coordination Right: [id number] normal. Rapid alternating movement abnormality:Left: [id number]-[id number]-eiga normal. Rapid alternating movement abnormality: Bradykinesia noted with MONY. Gait Slow, shuffle gait. Decreased arm swing bilaterally. Uses arms to get out of the chair. Motor Examination RUE Strength deltoid, biceps, triceps, wrist extensors, wrist extensors, wrist flexor, physician coding specialist strength 5/5. LUE Strength deltoid, biceps, triceps, wrist extensors, wrist extensors, wrist flexor, physician coding specialist strength 5/5. RLE Strength illopsoas, quadriceps, tibialis anterior, and gastrocnemius strength 5/5. LLE Strength illopsoas, quadriceps, tibialis anterior, and gastrocnemius strength 5/5. Slight cogwheel rigidity at the wrist bilaterally Reflexes: RUE biceps reflex 2, brachioradialis reflex 2 LUE biceps reflex 2, brachioradialis reflex 2 RLE knee reflex 2, LLE knee reflex 2, Assessment and Plan 1. Parkinsonism - 78-year-old male who is being [place] [facility] [place] with altered mental status and general feeling if un wellness for approximately 2 weeks. Medical history includes obstructive sleep apnea, diabetes mellitus type 2, hyperlipidemia, coronary artery disease, cellulitis and hypertension. He had a CT head and MRI brain that did not reveal acute pathology. He was noted to exhibit Parkinsonian features and started on Sinemet 25/100 TID. His and daughter state they have seen improvement in his gait and he is moving better but the medication seem to wear off with a definite notable difference. He did fall in February 2024 after his hospitalization and was evaluated at [facility] with nonacute CT head and cervical spine that were nonacute. He is working with PT/OT. I counseled the patient, and daughter on the diagnosis, prognosis, and possible treatment options. We will continue the Sinemet to QID to see if this minimizes off time. His will look into a med minder or set the alarm on his phone so he does not forget to take his medication. I counseled the patient and family on fall precautions. I discussed the high risk of trauma and debility associated with falls. Patient verbalized understanding. He has a walker that he uses at times. 2. LOPEZ - Patient has a CPAP that he does not wear. He followed with Dr Gonsales at [facility]. His will call to schedule an appointment to discuss alternative therapies and/or mask. He has an appt to discuss the Inspire device. We discussed the affects and risks associated with untreated LOPEZ Evaluation at [facility] in February 2024: 1. CT scan of the head can cervical spine nonacute 2. MRI scan of the brain was nonacute. Cortical atrophy and small-vessel ischemic changes noted 3. TSH 1.69. BUN 31 and creatinine 1.46. Diagnoses and all orders for this visit: 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) PLAN: I counseled the patient on the diagnosis, prognosis, and possible treatment options. Continue sinemet to 25/100 QID. 8am, noon, 3pm, and 6pm. He will set an alarm to remind him to take his meds or look into a med-minder I counseled the patient on fall precautions. I discussed the high risk of trauma and debility associated with falls. Patient verbalized understanding. His made an appt with Dr Gonsales, sleep medicine, to discuss untreated LOPEZ Fall precautions discussed. I will see the patient back in 4 months or sooner if needed documented in this encounter [facility] 06-07-2024 History of Present illness Narrative Images from the original note were not included. SUBJECTIVE: Ramon Cruz is a 78 y.o. male presents with chief complaint of Diabetes, Hypothyroidism, and Hypertension Pt presents to the office with to routine OV and a few concerns. states they discontinued both the Centrum and vitamin d + fish oil. Pt discontinued as she read it effected the sinemet rx. Cardiology: Pt is now seeing Dr. Conde cardiology recently switched from [facility]. Has upcoming appt. Weakness/ Unsteady gait. Parkinsonism: Pt currently uses a Rollator walker for every day use due to above diagnoses. Asking if new Rollator rx could be prescribed as the currently one is currently beyond repair. He is unable to use a standard walker or cane due to unsteadiness. He needs the Rollator as it is helpful when having to take a break. Diabetes: Sugars are running 68-245. Sugar was 68 in the middle of the night the other day. Pt states last night sugar was 69. is asking what is the high and low they should be looking out for. Pt does have free style lillian 2 device and has been helpful in regulating and monitoring blood sugars. Chronic pain: is asking if tramadol can still be prescribed as not currently seeing pain management. She states pt has increased to once a night and has been very helpful. Diabetes He presents for his follow-up diabetic visit. He has type 2 diabetes mellitus. His disease course has been stable. There are no hypoglycemic complications. Hypertension This is a chronic problem. The current episode started more than 1 year ago. The problem is unchanged. The problem is controlled. Review of Systems: Review of Systems Problem List: Patient Active Problem List Diagnosis Benign prostatic hyperplasia Coronary artery disease (CMS/HCC) Diabetic renal disease (CMS/HCC) Exercise-induced angina (CMS/HCC) Heart failure (CMS/HCC) Hyperlipidemia (CMS/HCC) Hypothyroid (CMS/HCC) Obstructive sleep apnea syndrome Hypertension (CMS/HCC) Peripheral vascular disease (CMS/HCC) Sick sinus syndrome (CMS/HCC) Stage 3a chronic kidney disease (HCC) (CMS/HCC) Stented coronary artery Type 2 diabetes mellitus with hyperglycemia, without long-term current use of insulin (CMS/HCC) Vitamin D deficiency Generalized osteoarthritis DDD (degenerative disc disease), lumbosacral Parkinsonism (CMS/HCC) Past Medical History: Past Medical History: Diagnosis Date Diabetes (CMS/HCC) Heart attack (CMS/HCC) Hypercholesteremia (CMS/HCC) Hypertension (CMS/HCC) Family History: Family History Problem Relation Name Age of Onset Cancer Mother Heart disease Father Diabetes Sister Allergies: Allergies Allergen Reactions Lactose Surgical History: Past Surgical History: Procedure Laterality Date CARDIAC PACEMAKER PLACEMENT 03/2021 CARDIAC SURGERY 2019 CORONARY STENT PLACEMENT 8 stents TOTAL KNEE ARTHROPLASTY 2009; 2011 Social History: Social Determinants of Health Tobacco Use: Low Risk (06/07/2024) Patient History Smoking Tobacco Use: Never Smokeless Tobacco Use: Never Passive Exposure: Not on file Alcohol Use: Not At Risk (03/25/2024) AUDIT-C Frequency of Alcohol Consumption: Monthly or less Average Number of Drinks: 1 or 2 Frequency of Binge Drinking: Never Financial Resource Strain: Low Risk (03/25/2024) Overall Financial Resource Strain (CARDIA) Difficulty of Paying Living Expenses: Not hard at all Food Insecurity: No Food Insecurity (03/25/2024) Hunger Vital Sign Worried About Running Out of Food in the Last Year: Never true Ran Out of Food in the Last Year: Never true Transportation Needs: No Transportation Needs (03/25/2024) PRAPARE - Transportation Lack of Transportation (Medical): No Lack of Transportation (Non-Medical): No Physical Activity: Inactive (03/25/2024) Exercise Vital Sign Days of Exercise per Week: 0 days Minutes of Exercise per Session: 0 min Stress: No Stress Concern Present (03/25/2024) [employer] - Occupational Stress Questionnaire Feeling of Stress : Not at all Recent Concern: Stress - Stress Concern Present (03/17/2024) [employer] - Occupational Stress Questionnaire Feeling of Stress : To some extent Social Connections: Moderately Integrated (03/25/2024) Social Connection and Isolation Panel [NHANES] Frequency of Communication with Friends and Family: Three times a week Frequency of Social Gatherings with Friends and Family: Not on file Attends Yazidi Services: More than 4 times per year Active Member of Clubs or Organizations: No Attends Club or Organization Meetings: Never Marital Status: Intimate Partner Violence: Not on file Depression: Not at risk (06/07/2024) PHQ-2 PHQ-2 Score: 0 Housing Stability: Low Risk (03/25/2024) Housing Stability Vital Sign Unable to Pay for Housing in the Last Year: No Number of Times Moved in the Last Year: 0 Homeless in the Last Year: No Health Literacy: Adequate Health Literacy (03/25/2024) B1300 Health Literacy Frequency of need for help with medical instructions: Rarely OBJECTIVE: Visit Vitals Ht 5' 8 Wt 192 lb 12.8 oz BMI 29.32 kg/m Smoking Status Never BSA 2.05 m Physical Exam Constitutional: General: He is not in acute distress. Appearance: Normal appearance. HENT: Head: Normocephalic and atraumatic. Mouth/Throat: Mouth: Mucous membranes are moist. Neck: Vascular: No carotid bruit. Cardiovascular: Rate and Rhythm: Normal rate and regular rhythm. Pulses: Normal pulses. Heart sounds: No murmur heard. No friction rub. No gallop. Pulmonary: Effort: No respiratory distress. Breath sounds: Normal breath sounds. No wheezing, rhonchi or rales. Abdominal: General: Bowel sounds are normal. There is no distension. Palpations: Abdomen is soft. Tenderness: There is no abdominal tenderness. Musculoskeletal: Cervical back: Neck supple. No tenderness. Skin: General: Skin is warm and dry. Findings: Erythema: of LLE; warm to touch; no abscesses or abrasions. Comments: LLE mild edema with erythema and peeling skin, no open wounds Neurological: General: No focal deficit present. Mental Status: He is alert and oriented to person, place, and time. Motor: Weakness present. Coordination: Coordination abnormal. Gait: Gait abnormal (slow; shuffling). Psychiatric: Mood and Affect: Mood normal. Behavior: Behavior normal. Judgment: Judgment normal. No results found for this or any previous visit (from the past 672 hour(s)). ASSESSMENT AND PLAN: Assessment/Plan Diagnoses and all orders for this visit: Parkinson's disease with dyskinesia and fluctuating manifestations ([facility]/HCC) Patient has need of a walker/rollator in home to help her complete her ADL's i.e. walking to toilet, walking to kitchen, walking to bedroom and weakness in legs require to have a seat on walker to sit when needed to prevent further falls. Pt is able to safely use walker and her functional mobility in home would be resolved by the use of a walker. Discussed patient's need for a front wheel walker. The patient has mobility limitations that significantly impair their ability to participate in activities of daily living without the risk of fall. The patient would benefit from this walker to reasonably complete activities of daily living and an acceptable timeframe given current limitations. As the patient is considered a fall risk, the utilization of a front-wheeled walker would mitigate the risk for height morbidity and mortality secondary to the possibility of fall. After further discussion at bedside the patient is able to safely use a walker in the benefit of walker use would improve her functional mobility to resolve deficit discussed above in her diagnosis. - Misc. Devices (Rollator Ultra-Light) misc; 1 rollator with seat for every day use Peripheral vascular disease ([facility]/HCC) Reviewed vascular surgery notes in office today. Will continue current treatment regimen and follow up at next scheduled visit unless problems arise. Hypertension, unspecified type ([facility]/HCC) Record Blood Pressures 2-4 times weekly and record. Return with readings at next appointment. Call with readings if sees significant changes Hypothyroidism, unspecified type (CMS/HCC) Labs ordered today, will follow up when results available Stage 3a chronic kidney disease (HCC) (CMS/HCC) Problem is stable, will continue with current treatment plan. Call or return to clinic if any changes occur 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, unspecified vessel or lesion type, unspecified whether [place] or transplanted heart ([facility]) Patient advised to return if symptoms worsen and/or persist despite treatment. Type 2 diabetes mellitus with hyperglycemia, without long-term current use of insulin ([facility]) Labs ordered today, will follow up when results availableProblem is stable, will continue with current treatment plan. Call or return to clinic if any changes occur Myalgia improved significantly, continue current treatment - traMADol (Ultram) 50 MG tablet; Take 1 tablet (50 mg) by mouth every 8 (eight) hours if needed for severe pain Updated Medications: I have reviewed and reconciled the history and medication list with the patient today. Current Outpatient Medications: acetaminophen (Tylenol) 500 MG tablet, Take 1,000 mg by mouth Daily, Disp: , Rfl: amLODIPine (Norvasc) 10 MG tablet, 1 (one) time each day at the same time., Disp: , Rfl: atorvastatin (Lipitor) 20 MG tablet, Take 1 tablet (20 mg) by mouth 1 (one) time each day at the same time, Disp: 90 tablet, Rfl: 1 carbidopa-levodopa (Sinemet) 25-100 MG tablet, TAKE 1 TABLET BY MOUTH AT 8AM, NOON, 3PM, AND 6PM, Disp: 360 tablet, Rfl: 0 clopidogrel (Plavix) 75 MG tablet, Take 1 tablet (75 mg) by mouth in the morning., Disp: 90 tablet, Rfl: 1 Continuous Glucose Fund Controller (FreeStyle Lillian 2 [place]aks) device, Dispense 1 reader device for every day use to check blood sugars E11.9, Disp: 1 each, Rfl: 0 Continuous Glucose Sensor (FreeStyle Lillian 2 Sensor) misc, 1 Units every 14 (fourteen) days, Disp: 2 each, Rfl: 11 Continuous Glucose Sensor (FreeStyle Lillian 2 Sensor) misc, 1 Units every 14 (fourteen) days, Disp: 1 each, Rfl: 0 insulin glargine (Lantus SoloStar) 100 UNIT/ML pen, INJECT 10 UNITS UNDER THE SKIN EVERY DAY AT BEDTIME, Disp: 15 mL, Rfl: 3 insulin pen needle (B-D UF III MINI PEN NEEDLES) 31G x 5 mm misc, Use daily as directed, Disp: 100 each, Rfl: 11 lisinopril 5 MG tablet, Take 1 tablet (5 mg) by mouth Daily, Disp: 30 tablet, Rfl: 11 metFORMIN XR (Glucophage-XR) 500 MG 24 hr tablet, TAKE 1 TABLET BY MOUTH IN THE EVENING. TAKE WITH MEALS DO NOT CRUSH, CHEW, OR SPLIT., Disp: 90 tablet, Rfl: 1 metoprolol succinate XL (Toprol-XL) 25 MG 24 hr tablet, Take 1 tablet by mouth 1 (one) time each day., Disp: , Rfl: mirabegron ER (Myrbetriq) 50 MG 24 hr tablet, Take 50 mg by mouth 1 (one) time each day at the same time, Disp: , Rfl: terbinafine (LamISIL) 250 MG tablet, TAKE 1 TABLET BY MOUTH EVERY DAY, Disp: 90 tablet, Rfl: 0 documented in this encounter [facility] 02-09-2024 Procedure note [facility] 07-02-2023 Evaluation note Encounter Date Diagnosis Assessment [...] changes in symptoms and/or problems with treatment [employer] Other 03-30-2023 NoteCONSULTATION CONSULTATION DATE: 01/09/2023 TO: [...] the response to his change in medication.[facility] 12-19-2022 NoteCONSULTATION CONSULTATION DATE: 12/26/2022 HISTORY: This [...] from a physician they saw at the [facility]. The patient and the are interested in [...] he will be scheduled at six weeks.[facility] [id number] Note CONSULTATION CONSULTATION DATE: 11/12/2022 CHIEF COMPLAINT: [...] his understand and would like to proceed.[facility] [id number] NoteCONSULTATION PROCEDURE DATE: 11/12/2022 PREOPERATIVE DIAGNOSIS: Gluteal [...] superior sacrococcygeal joint injection in the future.[facility] [id number] NoteCONSULTATION CONSULTATION DATE: 09/03/2022 CHIEF COMPLAINT: Low [...] patient understands and would like to proceed.[facility] [id number] NoteCONSULTATION CONSULTATION DATE: 05/23/2022 This is a [...] and the patient agrees with his plan.[facility] [id number] NoteCONSULTATION PROCEDURE DATE: 05/23/2022 PRE AND POSTOPERATIVE [...] will be followed up in the office.[facility] [id number] NoteCONSULTATION CONSULTATION DATE: 02/28/2022 This is a [...] to maintain his medications unless otherwise indicated. [facility] Signed and Approved by: DIAMANTE SPAULDING . 03/04/2022 15:07:00[facility] noteNo assessment information availableVeterans Health Administration Work Phone: Evaluation note* Diagnosis Onset Date Resolution Status Diminished pulses in lower extremity acute PVD (peripheral vascular disease) acute [facility] Work Phone: Evaluation note* Diagnosis Onset Date Resolution Status Diminished pulses in lower extremity acute PVD (peripheral vascular disease) acute [id number] acute S/P placement of cardiac pacemaker acute S/P PTCA (percutaneous trans luminal coronary angioplasty) acute Sick sinus syndrome acute [facility] Work Phone: Evaluation note* Diagnosis Onset Date Resolution Status Diminished pulses in lower extremity acute PVD (peripheral vascular disease) acute [id number] acute S/P placement of cardiac pacemaker acute S/P PTCA (percutaneous trans luminal coronary angioplasty) acute Sick sinus syndrome acute Congestive heart failure acu te Diabetes acute HTN (hypertension) acute Intolerance to BiPAP/CPAP ac quechan Myocardial infarction acute Obstructive sleep apnea acut e [facility] Work Phone: Evaluation note* Diagnosis Myalgia Unspecified myalgia and myositis documented in this encounter [facility]* Diagnosis Obstructive sleep apnea- Primary Obstructive sleep apnea (adult) (pediatric) Intolerance of continuous positive airway pressure (CPAP) ventilation documented in this encounter [facility]* Diagnosis Onychomycosis Dermatophytosis of nail documented in this encounter [facility]* Diagnosis Parkinson's disease with dyskinesia and fluctuating manifestations ([facility]/HCC)- Primary Obstructive sleep apnea syndrome Obstructive sleep apnea (adult) (pediatric) documented in this encounter [facility]* Diagnosis Onychomycosis- Primary Dermatophytosis of nail Type II diabetes mellitus with neurological manifestations ([facility]/HCC) Type II or unspecified type diabetes mellitus with neurological manifestations, not stated as uncontrolled documented [facility] encounter [facility]* Diagnosis LOPEZ (obstructive sleep apnea)- Primary Obstructive sleep apnea (adult) (pediatric) documented in [facility] encounter [facility]* Diagnosis Parkinson's disease with dyskinesia and fluctuating manifestations ([facility])- Primary Peripheral vascular disease ([facility]) Unspecified peripheral vascular disease Hypertension, unspecified type ([facility]) Hypothyroidism, unspecified type ([facility]) Stage 3a chronic kidney disease (HCC) ([facility]) 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, unspecified vessel or lesion type, unspecified whether [place] or transplanted heart ([facility]) Type 2 diabetes mellitus with hyperglycemia, without long-term current use of insulin ([facility]) Myalgia Unspecified myalgia and myositis documented [facility] encounter [facility]* Diagnosis Onychomycosis- Primary Dermatophytosis of nail Type II diabetes mellitus with neurological manifestations ([facility]) Type II or unspecified type diabetes mellitus with neurological manifestations, not stated as uncontrolled Pain in both feet documented in this encounter [facility]* Diagnosis Parkinson's disease with dyskinesia and fluctuating manifestations ([facility])- Primary documented in this encounter [facility]* Diagnosis 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, unspecified vessel or lesion type, unspecified whether [place] or transplanted heart ([facility])- Primary Type 2 diabetes mellitus without complication, with long-term current use of insulin ([facility]) Diabetic nephropathy associated with type 2 diabetes mellitus (HCC) ([facility]) Mixed hyperlipidemia ([facility]) Mixed hyperlipidemia Hypertension, unspecified type ([facility]) Hypothyroidism, unspecified type ([facility]) documented in this encounter [facility]* Diagnosis Obstructive sleep apnea- Primary Obstructive sleep apnea (adult) (pediatric) Intolerance of continuous positive airway pressure (CPAP) ventilation documented in this encounter [facility]* Diagnosis Myalgia Unspecified myalgia and myositis documented in this encounter [facility]* Diagnosis 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, unspecified vessel or lesion type, unspecified whether [place] or transplanted heart (CMS/HCC)- Primary 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/HCC) Chronic kidney disease, stage 3b (HCC) (CMS/HCC) Sick sinus syndrome (CMS/HCC) Sinoatrial node dysfunction Hypertensive heart disease with heart failure (CMS/HCC) Unspecified hypertensive heart disease with heart failure Hypertension, unspecified type (CMS/HCC) Mixed hyperlipidemia (CMS/HCC) Mixed hyperlipidemia Stage 3a chronic kidney disease (HCC) (CMS/HCC) Type 2 diabetes mellitus with hyperglycemia, without long-term current use of insulin (CMS/HCC) Raynaud's disease without gangrene documented in this encounter [facility] HealthcareHistory and physical note Author Manda Lockwood [facility] February 09, 2024 9:53am Note Date/Time February 09, 2024 9:2 0am [facility] [address] [place] [address] Gastroenterology H&P Signed Patient: Ramon Cruz MR#: [id number] : 1945 Acct:[id number] Age/Sex: 78 / M Adm Date: 4 Loc: Room: Type: [facility] Attending Dr: Manda Lockwood MD Copies to: Valentino Field Jr, DO Manda Lockwood MD~ Date of Service: 02/09/2024 HISTORY & PHYSICAL: Patient's history with special attention to the cardiovascular, pulmonary systems and the current problem was reviewed with the patient immediately prior to the procedure. Present medications and doses reviewed in the EMR. Allergies and pertinent laboratory tests were also reviewedat this time in the EMR. The physical examination, as below, was then performed. Indication, assessment and HPI: 78-year-old man with family history of colon cancer(sister) here for screening colonoscopy Family history of GI malignancy? Yes PHYSICAL EXAMINATION General appearance: Pleasant, NAD Skin: No jaundice Head: NC/AT Eyes: Anicteric Neck: Supple Lungs: Normal respiratory effort, no use of accessory muscles Abdomen: Soft, nondistended Neuro: Ox3. REVIEW OF SYSTEMS Constitutional: Denies malaise, fevers Cardiovascular: Denies chest pain, palpitations Respiratory: Denies shortness of breath, wheezing Gastrointestinal: As per HPI Genitourinary: Denies dysuria, polyuria Musculoskeletal: Denies joint swelling, joint stiffness Neurological: Denies confusion, numbness, tingling Endocrine: Denies fatigue Written informed consent obtained from the [patient]. Risks (including but not limited to perforation, infection, bloating, bleeding, need for emergent surgery and loss of life), benefits and alternatives explained and questions answered. The [patient] verbalized understanding. Based on history patient is an appropriate candidate for the procedure. Manda Lockwood M.D. Documented By: Manda Lockwood MD 02/09/24 0920 Signed By: <Electronically signed by Manda Lockwood MD> 02/09/24 0996 [facility] Work Phone: History general Narrative - Reported* Type Description Date Medical History HTN Medical History DM Medical History CT Medical History CAD Medical History LOPEZ Medical History Congestive heart failure Surgical History 8 stents Surgical History pacemaker 03/26/21 Hospitalization History see above [employer] Other History of Present illness Narrative* moved to [facility] * had flu sjot/ had covid booster * eye.. dr. mg sommer in [place] * hgm 120 s * no log here, ran out of test strips * agent lantus plus glimep * has a pcp in [facility] * no hypos [employer] [facility] Work Phone: History of Present illness Narrative* moved to [facility] * had flu sjot/ had covid booster * eye.. dr. mg sommer in [place] * hgm 120 s * no log here, * agent lantus plus glimep * has a pcp in [facility] * no hypos * feels well * drove here from [facility] this am * will travel to [place] this winter [employer] [facility] Work Phone: History of Present illness Narrative* feels well * takes meds ok * hobbies... TV * agent lantus plus glimep * hgm 100-130 * cards d.r G * eye dr. catherine valentineusky * no sob or chest pains -[facility] Work Phone: Hospital Discharge instructions Additional Instructions DISCHARGE INSTRUCTIONS FOR COLONOSCOPY WHAT TO EXPECT: - You may feel full, gassy or cramping after your procedure. In some cases, this may be from a few hours to a day. Walking may help relieve the discomfort. - If you have polyp(s) removed you may note some minor bloody discharge after your first bowel movements. - You should begin to recover from anesthesia within 1 hour of the procedure, however may feel groggy for the next 24 hours. DO's AND DON'Ts: - Call your doctor right away if you have a hard abdomen, severe pain, are passing lots of bright red blood or clots. - Call your doctor if you develop any rashes, hives or difficulty breathing. - Let your doctor know if you have not had a bowel movement by 3 days after your procedure. - If you take 81 mg aspirin for your heart it is safe to resume this medication. - If you take other blood thinner medications your doctor will instruct you when these can safely be resumed. - Do NOT drive for 24 hours. - Do NOT operate machinery such as power tools, lawn mowers, snow blowers, sewing machines, etc. for 24 hours. - Avoid alcoholic beverages and drugs for allergies, nerves, or sleep. - Do NOT stay alone. Do NOT leave your child unattended. - Do NOT make important personal or business decisions or sign any legal documents. - Eat solid foods and drink liquids in smaller amounts than usual until normal appetite returns. If you should experience an upset stomach, liquids high in sugar content (soda, Gonzales-Aid, non-acid juices) are recommended. - You can resume normal activities tomorrow. FOLLOW UP & RECOMMENDATIONS: -Notify the doctor if you have any problems. -Repeat colonoscopy in 5 years. -Follow up with PCP. -Office number [phone]. [facility] Work Phone: Instructions* Name Dates Details Instructions not documented [employer] [facility] Work Phone: Family History No Family History [...] Status:Active Father At Age ___: Father Status:Active Relationship Condition Age at Onset Recorded Date/T jeff Not Specified Malignant neoplasm of breast Unknown sister Malignant neoplasm of colon Unknown Relationship Condition Age at Onset Recorded Date/T jeff mother Malignant neoplasm of breast Unknown sister Malignant neoplasm of colon Unknown Relationship Condition Age at Onset Recorded Date/T jeff mother Malignant neoplasm of breast Unknown Heart disease Unknown sister Malignant neoplasm of colon Unknown father Heart disease Unknown sister Heart disease Unknown sister Malignant neoplasm Unknown Chief Complaint follow dm//bpfollow dm//bphere for DM / bp visit Summary Purpose Advance Directives No Advanced Directives Records Found Advance Directive Response Recorded Date/ Time Advance Directives No September 17, 2019 10:56am Advance Directive Response Recorded Date/ Time Advance Directives No September 17, 2019 9:56am Documents on File Type Date Recorded [facility] [employer] Expl anation Advance Directives and Living Will 11/13/20222022.02.01 living [place] ll Documents on File Type Date Recorded [facility] [employer] Expl anation Advance Directives and Living Will 11/13/20222022.02.01 living wi ll Chief Complaint and Reason for Visit Chief Complaint Obstructive sleep ap lauri Chief Complaint fm hx of colon ca fm hx of colon ca Chief Complaint Ref from Dr. Field for PVD I70.213 - Atherosclerosis of [place] arteries of ex Reason for Visit Diminished pulses in lower extremity PVD (peripheral vascular disease) Chief Complaint Ref from Dr. Field for PVD I70.213 - Atherosclerosis of [place] arteries of ex pacemaker/stents establish Reason for Visit Diminished pulses in lower extremity PVD (peripheral vascular disease) Chief Complaint Ref from Dr. Field for PVD I70.213 - Atherosclerosis of [place] arteries of ex pacemaker/stents establish Reason for Visit Diminished pulses in lower extremity PVD (peripheral vascular disease) [id number] S/P placement of cardiac pacemaker S/P PTCA (percutaneous transluminal coronary angioplasty) Sick sinus syndrome Chief Complaint Ref from Dr. Field for PVD I70.213 - Atherosclerosis of [place] arteries of ex pacemaker/stents establish I49.1 I50.9 lopez/ interested in inspire Reason for Visit Diminished pulses in lower extremity PVD (peripheral vascular disease) [id number] S/P placement of cardiac pacemaker S/P PTCA (percutaneous transluminal coronary angioplasty) Sick sinus syndrome Chief Complaint Ref from Dr. Field for PVD I70.213 - Atherosclerosis of [place] arteries of ex pacemaker/stents establish I49.1 I50.9 lopez/ interested in inspire Z95.0 Reason for Visit Diminished pulses in lower extremity PVD (peripheral vascular disease) [id number] S/P placement of cardiac pacemaker S/P PTCA (percutaneous transluminal coronary angioplasty) Sick sinus syndrome Congestive heart failure Diabetes HTN (hypertension) Intolerance to BiPAP/CPAP Myocardial infarction Obstructive sleep apnea Additional Source Comments (unrecognized sect ion and content) No Status Records FoundNo Status Records FoundNo Status Records FoundNo Status Records FoundNo Status Records FoundNo Status Records FoundNo Status Records FoundNo Status Records FoundNo Status Records Found INFORMATION SOURCE (unrecogn ized section and content) DATE CREATED AUTHOR 05/27/2022 [employer] DATE CREATED AUTHOR AUTHOR'S ORGANIZ ATION 09/02/[address] [facility] dical Specialist DATE CREATED AUTHOR AUTHOR'S ORGANIZ ATION 10/21/2022 [facility] DATE CREATED AUTHOR AUTHOR'S ORGANIZ ATION 12/03/2022 [facility] DATE CREATED AUTHOR AUTHOR'S ORGANIZ ATION 01/30/2023 [facility] DATE CREATED AUTHOR AUTHOR'S ORGANIZ ATION 02/26/2023 [facility] DATE CREATED AUTHOR AUTHOR'S ORGANIZ ATION 07/03/2024 [facility] DATE CREATED AUTHOR AUTHOR'S ORGANIZ ATION 10/10/2024 [facility] DATE CREATED AUTHOR AUTHOR'S ORGANIZ ATION 11/28/[address] [facility] dical Specialists [employer] Care Teams (unrecognized sec tion and content) Team Status: Active Member Role Status Dates Benedicto Field DO Primary Care Provider Active Team Status: Inactive Member Role Status Dates Lili Gonsales MD Attending Provider Active Benedicto Field DO Primary Care Provider, Referring Provider Active Team Status: Inactive Member Role Status Dates Benedicto Field DO Primary Care Provider Active Lili Gonsales MD Attending Provider Active Team Status: Inactive Member Role Status Dates Benedicto Field DO Primary Care Provider Active Start: February 09, 2024 End: February 09, 2024 Manda Lockwood MD Attending Provider Active Start: February 09, 2024 End: February 09, 2024 Team Status: Active Member Role Status Dates Benedicto Field DO Primary Care Provider Active Start: February 09, 2024 Manda Lockwood MD Attending Provider, Other Provider Active Start: February 09, 2024 Team Status: Inactive Member Role Status Dates Benedicto Field DO Primary Care Provider Active Start: June 01, 2024 End: June 01, 2024 Coleman Gale MD Attending Provider Active S tart: June 01, 2024 End: June 01, 2024 Team Status: Active Member Role Status Dates Coleman Gale MD Attending Provider Active S tart: June 01, 2024 Benedicto Field DO Primary Care Provider Active Start: June 01, 2024 Team Status: Inactive Member Role Status Dates Coleman Gale MD Attending Provider Active S tart: June 01, 2024 End: June 01, 2024 Benedicto Field DO Primary Care Provider Active Start: June 01, 2024 End: June 01, 2024 Team Status: Inactive Member Role Status Dates Benedicto Field DO Primary Care Provider Active Start: June 15, 2024 End: June 15, 2024 Tom Conde MD Attending Provider Activ e Start: June 15, 2024 End: June 15, 2024 Team Status: Active Member Role Status Ina Field DO Primary Care Provider Active Start: June 15, 2024 Tom Conde MD Attending Provider Activ e Start: June 15, 2024 Team Status: Active Member Role Status Dates Tom Conde MD Marine Diesel Technician Active Benedicto Field DO Primary Care Provider Active Team Status: Inactive Member Role Status Ina Field DO Primary Care Provider Active Start: June 28, 2024 End: June 28, 2024 Apolonia Hardin NP Attending Provider Active Start: June 28, 2024 End: June 28, 2024 Team Status: Inactive Member Role Status Dates Benedicto Field DO Primary Care Provider Active Start: July 07, 2024 End: July 07, 2024 Tom Conde MD Attending Provider Active Start: June End: July 07, 2024 Tooth Cutter Pinion Relationship Specialty Start Date End Date Tom Field DO [address] [place] [address] PCP - General Family Medicine 02/18/23 Tom Field DO [address] [place] [address] PCP - ACO Reach 12/12/23 Charlene Sullivan, [place] Registered Nurse Family Medicine 03/17/24 Tooth Cutter Pinion Relationship Specialty Start Date End Date Tom Field DO [address] [place] [address] PCP - General Family Medicine 02/18/23 Tom Field DO [address] [place] [address] PCP - ACO Reach 12/12/23 Charlene Sullivan, [place] Registered Nurse Family Medicine 03/17/24 Lili Gonsales MD [address] [place] [address] Referring Physician Sleep Medicine 08/10/24 Sunny Vasquez, DO [address] [place] [address] Otolaryngology 08/10/24 Tooth Cutter Pinion Relationship Specialty Start Date End Date Tom Field DO [address] [place] [address] PCP - General Family Medicine 02/18/23 Tom Field DO [address] [place] [address] PCP - ACO Reach 12/12/23 Charlene Sullivan, [place] Registered Nurse Family Medicine 03/17/24 Lili Gonsales MD [address] [place] [address] Referring Physician Sleep Medicine 08/10/24 Sunny Vasquez, DO [address] [place] [address] Otolaryngology 08/10/24 Tooth Cutter Pinion Relationship Specialty Start Date End Date Tom Field DO [address] [place] [address] PCP - General Family Medicine 02/18/23 Tom Field DO [address] [place] [address] PCP - ACO Reach 12/12/23 Charlene Sullivan, RN Registered Nurse Family Medicine 03/17/24 Lili Gonsales MD [address] [place] [address] Referring Physician Sleep Medicine 08/10/24 Sunny Vasquez, DO [address] [place] [address] Otolaryngology 08/10/24 Tooth Cutter Pinion Relationship Specialty Start Date End Date Tom Field DO [address] [place] [address] PCP - General Family Medicine 02/18/23 Tom Field DO [address] [place] [address] PCP - ACO Reach 12/12/23 Charlene Sullivan, [place] Registered Nurse Family Medicine 03/17/24 Lili Gonsales MD [address] [place] [address] Referring Physician Sleep Medicine 08/10/24 Sunny Vasquez DO [address] [place] [address] Otolaryngology 08/10/24 Tooth Cutter Pinion Relationship Specialty Start Date End Date Tom Field DO [address] [place] [address] PCP - General Family Medicine 02/18/23 Tom Field DO [address] [place] [address] PCP - ACO Reach 12/12/23 Charlene Sullivan, RN Registered Nurse Family Medicine 03/17/24 Lili Gonsales MD [address] [place] [address] Referring Physician Sleep Medicine 08/10/24 Sunny Vasquez DO [address] [place] [address] Otolaryngology 08/10/24 Eusebio Guerin MD [address] [place] [address] Referring Physician Neurology 09/06/24 Tooth Cutter Pinion Relationship Specialty Start Date End Date Tom Field DO [address] [place] [address] PCP - General Family Medicine 02/18/23 Tom Field DO [address] [place] [address] PCP - ACO Reach 12/12/23 Charlene Sullivan, [place] Registered Nurse Family Medicine 03/17/24 Tooth Cutter Pinion Relationship Specialty Start Date End Date Tom Field DO [address] [place] [address] PCP - General Family Medicine 02/18/23 Tom Field DO [address] [place] [address] PCP - ACO Reach 12/12/23 Charlene Sullivan, [place] Registered Nurse Family Medicine 03/17/24 Lili Gonsales MD [address] [place] [address] Referring Physician Sleep Medicine 08/10/24 Sunny Vasquez, DO [address] [place] [address] Otolaryngology 08/10/24 Eusebio Guerin MD [address] [place] [address] Referring Physician Neurology 09/06/24 Tooth Cutter Pinion Relationship Specialty Start Date End Date Tom Field DO [address] [place] [address] PCP - General Family Medicine 02/18/23 Tom Field DO [address] [place] [address] PCP - ACO Reach 12/12/23 Charlene Sullivan, RN Registered Nurse Family Medicine 03/17/24 Lili Gonsales MD [address] [place] [address] Referring Physician Sleep Medicine 08/10/24 Sunny Vasquez DO [address] [place] [address] Otolaryngology 08/10/24 Eusebio Guerin MD [address] [place] [address] Referring Physician Neurology 09/06/24 Tooth Cutter Pinion Relationship Specialty Start Date End Date Tom Field DO [address] [place] [address] PCP - General Family Medicine 02/18/23 Tom Field DO [address] [place] [address] PCP - ACO Reach 12/12/23 Charlene Sullivan, [place] Registered Nurse Family Medicine 03/17/24 Lili Gonsales MD [address] [place] [address] Referring Physician Sleep Medicine 08/10/24 Sunny Vasquez, DO [address] [place] [address] Otolaryngology 08/10/24 Eusebio Guerin MD [address] [place] [address] Referring Physician Neurology 09/06/24 Tooth Cutter Pinion Relationship Specialty Start Date End Date Tom Field DO [address] [place] [address] PCP - General Family Medicine 02/18/23 Tom Field DO [address] [place] [address] PCP - ACO Reach 12/12/23 Charlene Sullivan, RN Registered Nurse Family Medicine 03/17/24 Tooth Cutter Pinion Relationship Specialty Start Date End Date Tom Field DO [address] [place] [address] PCP - General Family Medicine 02/18/23 Tom Field DO [address] [place] [address] PCP - ACO Reach 12/12/23 Charlene Sullivan, RN Registered Nurse Family Medicine 03/17/24 Lili Gonsales MD [address] [place] [address] Referring Physician Sleep Medicine 08/10/24 Sunny Vasquez, DO [address] [place] [address] Otolaryngology 08/10/24 Eusebio Guerin MD [address] [place] [address] Referring Physician Neurology 09/06/24 Tooth Cutter Pinion Relationship Specialty Start Date End Date Tom Field, DO [address] [place] [address] PCP - General Family Medicine 02/18/23 Tom Field, DO [address] [place] [address] PCP - ACO Reach 12/12/23 Charlene Sullivan, RN Registered Nurse Family Medicine 03/17/24 Tooth Cutter Pinion Relationship Specialty Start Date End Date Tom Field DO [address] [place] [address] PCP - General Family Medicine 02/18/23 Tom Field DO [address] [place] [address] PCP - ACO Reach 12/12/23 Charlene Sullivan, [place] Registered Nurse Family Medicine 03/17/24 Tooth Cutter Pinion Relationship Specialty Start Date End Date Tom Field DO [address] [place] [address] PCP - General Family Medicine 02/18/23 Tom Field DO [address] [place] [address] PCP - ACO Reach 12/12/23 Charlene Sullivan, [place] Registered Nurse Family Medicine 03/17/24 Tooth Cutter Pinion Relationship Specialty Start Date End Date Tom Field, DO [address] [place] [address] PCP - General Family Medicine 02/18/23 Tom Field, DO [address] [place] [address] PCP - ACO Reach 12/12/23 Charlene Sullivan, [place] Registered Nurse Family Medicine 03/17/24 Tooth Cutter Pinion Relationship Specialty Start Date End Date Tom Field, DO [address] [place] [address] PCP - General Family Medicine 02/18/23 Tom Field, DO [address] [place] [address] PCP - ACO Reach 12/12/23 Charlene Sullivan, [place] Registered Nurse Family Medicine 03/17/24 Lili Gonsales MD [address] [place] [address] Referring Physician Sleep Medicine 08/10/24 Sunny Vasquez, DO [address] [place] [address] Otolaryngology 08/10/24 Eusebio Guerin MD [address] [place] [address] Referring Physician Neurology 09/06/24 Tooth Cutter Pinion Relationship Specialty Start Date End Date Tom Field DO [address] [place] [address] PCP - General Family Medicine 02/18/23 Tom Field DO [address] [place] [address] PCP - ACO Reach 12/12/23 Charlene Sullivan, RN Registered Nurse Family Medicine 03/17/24 Lili Gonsales MD [address] [place] [address] Referring Physician Sleep Medicine 08/10/24 Sunny Vasquez DO [address] [facility] [place] [address] Otolaryngology 08/10/24 Eusebio Guerin MD [address] [place] [address] Referring Physician Neurology 09/06/24 Tooth Cutter Pinion Relationship Specialty Start Date End Date Tom Field DO [address] [place] [address] PCP - General Family Medicine 02/18/23 Tom Field DO [address] [place] [address] PCP - ACO Reach 12/12/23 Charlene Sullivan, RN Registered Nurse Family Medicine 03/17/24 Lili Gonsales MD [address] [place] [address] Referring Physician Sleep Medicine 08/10/24 Sunny Vasquez DO [address] [place] [address] Otolaryngology 08/10/24 Eusebio Guerin MD [address] [place] [address] Referring Physician Neurology 09/06/24 Goals (unrecognized section and content) Goals may be documented in a n alternate section Reason for Visit (unrecogniz ed section and content) Reason Comments Results Diabetes Pain Hypertension Hyperlipidemia Reason Onset Date Comments Med Refill 10/21/2024 Reason Comments Sleep Apnea S/p DISE Reason Comments Diabetes Hypothyroidism Hypertension Reason Comments Parkinson's Disease Reason Comments Inspire New Patient: Inspire Reason Comments Med Refill FOR RECORDS PERTAINING TO PATIENTS WHO ARE [...] BE BASED ON THE PRIMARY CLINICAL RECORDS. [employer] provides no warranty or guarantee of the accuracy or completeness of information in this document.
[2024-11-30 07:23] VITALS: BP 103/60; PULSE 68; TEMP 36.6; O2SAT 99
[2024-11-30 07:26] LABS: Glucometer 156 mg/dL (74-106)
[2024-11-30 07:57] VITALS: BP 116/56; PULSE 78; O2SAT 99
[2024-11-30 07:59] VITALS: BP 116/56; PULSE 66; O2SAT 99
[2024-11-30] MEDS: BUPIVACAINE HCL 0.25% PF 25 MG/10 ML VIAL 4 ML INJ (08:16)
[2024-11-30] MEDS: METHYLPREDNISOLONE ACETATE 40 MG/ML VIAL INJ (08:17)
[2024-11-30] MEDS: LIDOCAINE HCL 2% 400 MG/20 ML MDV 9 ML INJ (08:17)
[2024-11-30 08:20] VITALS: BP 117/56; PULSE 69; O2SAT 94
--- NOTE | 2024-11-30 08:21 | PC.NURSE ---
[employer] interrogation processing at bedside.
--- NOTE | 2024-11-30 08:25 | W.PM.PROCNOT ---
Date of procedure: 11/30/24 Post-op diagnosis: same as pre-op Procedure: Right Lumbar 4/5, 5/sacral 1 Radiofrequency ablation Under fluoroscopic guidance Rhizotomy was created using radio frequency ablation at 80?C for 90 seconds 1 to 2 lesions created at each site. Post lesioning injection of 2 mL each of 0.25% Marcaine and 2% lidocaine with Depo-Medrol 40mg. 0.5 to 1 mL injected at each site IV in place no If Intravenous fluids: NS at KVO Anesthesia local 2% lidocaine for Anesthesia Other: local Timeout process compliant After informed consent obtained.Patient brought to the procedure room placed in the prone position skin overlying the area was prepped and draped in a sterile fashion using betadine. 25 gauge needle was used to create a skin wheal over each of the targeted areas utilizing 2% lidocaine. A rhizotomy needle with a 10 mm active tip was inserted over each of the anesthetized areas and directed towards each of the medial branches accomplished under fluoroscopic guidance. after encountering the same we had positive sensory stimulation, negative motor stimulation was noted. lesions were then created. Post lesioning, steroid solution was injected needles removed. Patient was transferred to recovery room in stable condition to be discharged home after meeting criteria. Anesthesia: Local Surgeon: Mery Peterson Condition: stable
--- NOTE | 2024-11-30 08:26 | PC.NURSE ---
Nae from [employer] called to note good report with pacemaker interrogation
== END 2024-11-30 08:28 | disposition home or self-care (01) ==
LOC: SURGOUT 07:06
PROVIDERS: PCP Family Medicine; Visit Provider Anesthesiology Pain Medicine
DX: M47.816 Spondylosis without myelopathy or radiculopathy, lumbar region (principal); E11.9 Type 2 diabetes mellitus without complications; Z79.4 Long term (current) use of insulin
CPT/HCPCS: 36415; 64635; 64636; 82948; J0665; J1010

== ENCOUNTER 2024-12-14 06:40 | Day surgery (SDC) | payer MEDICARE, SELFPAY ==
--- OUTSIDE RECORDS SUMMARY | 2024-12-14 06:45 | XMS_ITS | CCD ---
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 Role Phone Poli Mercado MD Unavailable [...] Gonsales Unavailable MD Lili Gonsales Attending Provider [phone] DO Benedicto Field Primary Care Provider [phone] DO Benedicto Field Referring Provider DO Benedicto Field Primary Care Provider [phone] MD Lili Gonsales Attending Provider [phone] DO Benedicto Field Primary Care Provider MD Manda Lockwood Attending Provider [phone] MD Coleman Gale Attending Provider DO Benedicto Field Primary Care Provider MD Tom Conde Attending Provider Valentino FIELD DO Primary Care Unavailable DAVID WU-PhD, BARBY Attending Unavailable DO TOM FIELD Referring Unavailable Valentino FIELD DO Primary Care Unavailable DAVID WU-PhD, BARBY Attending Unavailable GISELLE GANDARA MD Attending Unavailable Valentino FIELD DO Primary Care Unavailable Tom Field DO Primary Care Provider Tom Field DO Unavailable [phone] Nate HENRIQUEZ, Charlene Unavailable Lili Gonsales MD Unavailable Sunny Vasquez DO Unavailable Truong WU, Eusebio Unavailable [phone] Tom Conde Admitting Unavaalejandro Conde, Tom [...] GUERRERO Attending Unavailable TOM FIELD Attending Unavailable FER GARCÍA Attending Unavailable TOM [...] (non-medical use) Propensity to adverse reactions 4 [facility] Healthcare Work Phone: (1 source) Lactose Drug Allergy 4 [facility] Medications Current Medications Medication Drug Class(es) [...] unspecified vessel or lesion type, unspecified whether qawalangin or transplanted heart ([facility]) , Type 2 diabetes mellitus without complication, with long-term current use of insulin ([facility]) Take 1 tablet (81 mg) by mouth Daily 30 tablet 06/18/2024 06/18/2025 Active take 1 tablet by mouth once jean-pierre y Aspirin 81 81 MG 1 tablet Orally Once a day Active atorvastatin 20 mg oral tablet (20 sources) HMG-CoA Reductase Inhibitor Start: 08-20-2024 take 1 tablet by mouth once daily atorvastatin (Lipitor) 20 MG tablet Indications: Hypertensive heart disease with heart failure ([facility]) TAKE 1 TABLET BY MOUTH EVERYDAY AT [...] Indications: Hypertensive heart disease with heart failure ([facility]) Take 1 tablet (75 mg) by mouth in the morning. 90 tablet 1 02/27/2024 06/18/2024 Discontinued (Therapy completed) Continuous Glucose Canvas Goods Supervisor (FreeStyle Lillian 2 [place]) device (5 sources) Start: 02-02-2024 End: 06-15-2024 Continuous Glucose Canvas Goods Supervisor (FreeStyle Llilian 2 [place]) device Indications: Type 2 diabetes mellitus without complication, with long-term current use of insulin ([facility]) Dispense 1 reader device for every day use to check blood sugars E11.9 1 each 02/02/2024 06/15/2024 Discontinued (Therapy completed) Start: 02-02-2024 Continuous Glu cose Canvas Goods Supervisor (FreeStyle Lillian 2 [place]) device Indications: Type 2 diabetes mellitus without complication, with long-term current use of insulin ([facility]) Dispense 1 reader device for every day use to check blood sugars E11.9 1 each 02/02/2024 Active Continuous Glucose Sensor (FreeStyle Lillian 2 Sensor) misc (20 sources) Start: 06-30-2024 Continuous Glu cose Sensor (FreeStyle Lillian 2 Sensor) misc Indications: Type 2 diabetes mellitus with hyperglycemia, without long-term current use of insulin ([facility]) , Type 2 diabetes mellitus with stage 3b chronic kidney disease, without long-term current use of insulin ([facility]) ([facility]) 1 Units every 14 (fourteen) days 2 each 06/30/2024 Active Start: 04-19-2024 Continuous Glu cose Sensor (FreeStyle Lillian 2 Sensor) misc Indications: Type 2 diabetes mellitus with hyperglycemia, without long-term current use of insulin ([facility]) 1 Units every 14 (fourteen) days 1 each 04/19/2024 Active Start: 02-02-2024 Continuous Glu cose Sensor (FreeStyle Lillian 2 Sensor) misc Indications: Type 2 diabetes mellitus with hyperglycemia, without long-term current use of insulin ([facility]) , Type 2 diabetes mellitus with stage 3b chronic kidney disease, without long-term current use of insulin (HCC) ([facility]) 1 Units every 14 (fourteen) days 2 each 02/02/2024 Active CPAP Machine (1 source) CPAP Machine Act rosalva docosahexaenoic acid 120 mg / eicosapentaenoic acid 180 mg oral capsule (20 sources) Start: 06-15-20 24 omega-3, EPA+DHA, ([place]-3) 1000 MG capsule 1 capsule 06/15/2024 Active [...] Start: 06-18-2024 take 2 tablets by mo [facility] every twenty-four hours in the morning [...] 50+MEN PO) Take by mouth 06/07/2024 Discontinued [place] 7-Uyp-Wyu-Fish Oil (Fish Oil) 1,000 mg (120 mg-180 mg) capsule (4 sources) Start: 06-15-2024 take 1 capsule by mouth once daily [place] 5-Qfe-Pll-Fish Oil (Fish Oil) 1,000 mg (120 mg-180 [...] 15-Aug-2016 Active take 2 tablets by mo [facility] once daily acetaminophen (Tylenol) 500 MG [...] [Coronary atherosclerosis of unspecified type of vessel, qawalangin or graft] Onset: 03-09-2015 06-15-2024 Chronic Delirium, [...] BY: Roe Garcia MD Normal Not Available [facility] echo transthoracicon [facility] echo transthoracic [facility] Main [place] [address] [place] [id number] Echocardiogram Signed Patient: Ramon Cruz MR#: [id number] : 1945 Acct:[id number] Age/Sex: 79 / M ADM Date: 10/04/24 Loc: Room: Type: [facility] Attending Dr: Tom Conde MD Ordering Provider: Tom Conde MD Date of Service: 10/04/24 [facility] echo transthoracic: R06.02 - Shortness of breath Copies to: MD Darlene Baca MD, [facility] Weight: 190 lb Performed By: BRENDA Batista BSA: 2.0 m2 BP: 152/73 mmHg HR: 54 Reason For Study: R06.02 - Shortness of breath History: [place], DM, former smoker, pacemaker, family history of [...] (HM (more content not included)... Normal [facility] Complete Blood Count Auto Di ffon 09-16-2024 Basophils (Bld) [#/Vol] 0.1 10*3/uL Normal 0.0-0.2 [facility] Comment on above: Result Comment: PERF ORMED BY: [place] [address] PATHOLOGIST RAYON WINDER GEOFFREY VARGAS M.D. Performed By: #### C BC #### [address] Basophils/100 WBC (Bld) 0.7 % Normal . [facility] Comment on above: Performed By: #### C BC #### [address] Eosinophils (Bld) [#/Vol] 0.3 10*3/uL Normal 0.0-0.45 [facility] Comment on above: Performed By: #### C BC #### [address] Eosinophils/100 WBC (Bld) 3.7 % Normal . [facility] Comment on above: Performed By: #### C BC #### [address] Erythrocyte distribution width (RBC) [Ratio] 14.3 % Normal 12.0-14.8 [facility] Comment on above: Performed By: #### C BC #### [address] Hematocrit (Bld) [Volume fraction] 36.8 % Low 38.8-50.0 [facility] Comment on above: Performed By: #### C BC #### [address] Hemoglobin (Bld) [Mass/Vol] 12.1 g/dL Low 13.0-17.0 [facility] Comment on above: Performed By: #### C BC #### [address] Lymphocytes (Bld) [#/Vol] 2.5 10*3/uL Normal 1.00-4.8 [facility] Comment on above: Performed By: #### C BC #### [address] Lymphocytes/100 WBC (Bld) 26.8 % Normal . [facility] Comment on above: Performed By: #### C BC #### [address] MCH (RBC) [Entitic mass] 29.1 pg Normal 27.5-35.2 [facility] Comment on above: Performed By: #### C BC #### [address] MCV (RBC) [Entitic vol] 88.7 fL Normal 83.5-101 [facility] Comment on above: Performed By: #### C BC #### [address] Mean Corpuscular HGB Conc 32.9 g/dL Normal 32.5-35.6 [facility] Comment on above: Performed By: #### C BC #### [address] Monocytes (Bld) [#/Vol] 0.8 10*3/uL Normal 0.0-0.8 [facility] Comment on above: Performed By: #### C BC #### [address] Monocytes/100 WBC (Bld) 8.2 % Normal . [facility] Comment on above: Performed By: #### C BC #### [address] Neutrophils (Bld) [#/Vol] 5.7 10*3/uL Normal 1.8-7.7 [facility] Comment on above: Performed By: #### C BC #### [place] [address] Neutrophils/100 WBC (Bld) 60.6 % Normal . [facility] Comment on above: Performed By: #### C BC #### [address] NRBC% 0.0 /100{WBC} Normal 0-0.5 [facility] Comment on above: Performed By: #### C BC #### [address] Platelet mean volume (Bld) [Entitic vol] 8.1 fL Normal 6.6-10.[address] [facility] Comment on above: Performed By: #### C BC #### [address] Platelets (Bld) [#/Vol] 248 10*3/uL Normal 150-450 [facility] Comment on above: Performed By: #### C BC #### [address] RBC (Bld) [#/Vol] 4.15 10*6/uL Normal 3.90-5.[address] [facility] Comment on above: Performed By: #### C BC #### [address] WBC (Bld) [#/Vol] 9.4 10*3/uL Normal 4.1-10.5 [facility] Comment on above: Performed By: #### C BC #### [address] CBC W Auto Differential pane l [...] 36.2 % Low 37.5 - 51.0 % [facility] Hemoglobin (Bld) [Mass/Vol] 11.2 g/dL Low 13.0 - 17.7 g/dL [facility] Immature granulocytes (Bld) [#/Vol] 0.1 10*3/uL [facility] Immature granulocytes/100 WBC (Bld) 1 % Not Estab. [facility] Lymphocytes (Bld) [#/Vol] 3.0 10*3/uL [facility] Lymphocytes/100 WBC (Bld) 30 % Not Estab. [facility] MCH (RBC) [Entitic mass] 29.3 pg 26.6 - 33.0 pg [facility] MCHC (RBC) [Mass/Vol] 30.9 g/dL Low 31.5 - 35.7 g/dL [facility] MCV (RBC) [Entitic vol] 95 fL 79 - 97 fL [facility] Monocytes (Bld) [#/Vol] 0.7 10*3/uL [facility] Monocytes/100 WBC (Bld) 7 % Not Estab. [facility] Neutrophils (Bld) [#/Vol] 5.6 10*3/uL [facility] Neutrophils/100 WBC (Bld) 56 % Not Estab. [facility] Platelets (Bld) [#/Vol] 302 10*3/uL [facility] RBC (Bld) [#/Vol] 3.82 10*6/uL Low [facility] WBC (Bld) [#/Vol] 9.9 10*3/uL [facility] Comprehensive metabolic pane jt 06-16-2024 Albumin [Mass/Vol] 3.9 g/dL 3.8 - 4.8 g/dL [facility] ALP [Catalytic activity/Vol] 172 U/L High [facility] ALT [Catalytic activity/Vol] U/L [facility] Comment on above: Verified by repeat analysis AST [Catalytic activity/Vol] 14 U/L [facility] Bilirubin [Mass/Vol] 0.2 mg/dL 0.0 - 1 .2 mg/dL [facility] Calcium [Mass/Vol] 9.5 mg/dL 8.6 - 10. 2 mg/dL [facility] Chloride [Moles/Vol] 102 mmol/L 96 - 10 6 mmol/L [facility] CO2 [Moles/Vol] 22 mmol/L 20 - 29 mmol/L [facility] Creatinine [Mass/Vol] 1.63 mg/dL High 0.76 - 1.27 mg/dL [facility] GFR/1.73 sq M.predicted among non-blacks MDRD (S/P/Bld) [Vol rate/Area] 43 mL/min/{1.73_m2} Low 59 - PINF mL/min/1.73 [facility] Globulin (S) [Mass/Vol] 2.8 g/dL 1.5 - 4.5 g/dL [facility] Glucose [Mass/Vol] 165 mg/dL High 70 - 99 mg/dL [facility] Potassium [Moles/Vol] 5.5 mmol/L High 3.5 - 5.2 mmol/L [facility] Protein [Mass/Vol] 6.7 g/dL 6.0 - 8.5 g/dL [facility] Sodium [Moles/Vol] 137 mmol/L 134 - 144 mmol/L [facility] Urea nitrogen [Mass/Vol] 43 mg/dL High 8 - 27 mg/dL [facility] Urea nitrogen/Creatinine [Mass ratio] 26 mg/mg High 10 - 24 [facility] Hemoglobin A1con 06-16-2024 HbA1c (Bld) [Mass fraction] 7.6 % High 4.8 - 5.6 % [facility] Comment on above: Prediabetes: 5.7 - 6 .4 Diabetes: >6.4 Glycemic control for adults with diabetes: <7.0 Lipid 1996 panelon Cholesterol [Mass/Vol] 132 mg/dL 100 - 199 mg/dL [facility] Cholesterol in HDL [Mass/Vol] 43 mg/dL 39 - PINF mg/dL [facility] Cholesterol in LDL [Mass/Vol] 63 mg/dL 0 - 99 mg/dL [facility] Cholesterol in VLDL [Mass/Vol] 26 mg/dL 5 - 40 mg/dL [facility] Triglyceride [Mass/Vol] 149 mg/dL 0 - 149 mg/dL [facility] Microalbumin/Creatinine rati o panel (U)on 06-16-2024 Albumin DL <= 20 mg/L (U) [Mass/Vol] 17.0 ug/mL Not Estab. [facility] Albumin/Creatinine (U) [Mass ratio] 18 [facility] Comment on above: Normal: 0 - 29 Moderately increased: 30 - 300 Severely increased: >300 Creatinine (U) [Mass/Vol] 93.3 mg/dL Not Estab. [facility] No Panel Informationon 06-16 Interpretation and review of laboratory results Abnormal [facility] Performed at: [address] [place] [id number] Stabilizer Operator: Nahun Pickering PhD, Phone: [phone] [facility] Specimen Status Reporton Clindamycin Disk diffusion (KB) [[facility]] Comment [facility] Comment on above: Jennifer Veras LP Defa ult Jennifer Veras [employer] Default A hand-written panel/profile was received from your office. In accordance with the [facility] Ambiguous Test Code Policy dated April 2003, we have completed your order by using the closest currently or formerly recognized AMA panel. We have assigned Lipid Panel, Test Code #503417 to this request. If this is not the testing you wished to receive on this specimen, please contact the [facility] Client Inquiry/Technical Services Department to clarify the test order. We appreciate your business. [facility] ECG *CARDIOLOGY ONLY*on 06-15-2024 [facility] ECG *CARDIOLOGY ONLY* [facility] Main [place] [address] [place] [address] Electrocardiograph Report Signed Patient: Ramon Cruz MR#: [id number] : 1945 Acct:[id number] Age/Sex: 78 / M ADM Date: 06/15/24 Loc: [facility] Room: Type: [facility] Attending Dr: Tom Conde MD Ordering Provider: [...] in Inferior leads Confirmed by Tom Conde ([id number]) on 06/16/2024 3:02:16 PM Referred By: Electronically Signed By: Tom Conde Transcribed By: MUS Signed By Tom Conde MD 06/16/24 1509 Normal [facility] US ankle/arm indiceson 06-01 US ankle/arm indices [facility] [address] [place] [address] Ultrasound Report Signed Patient: Ramon Cruz MR#: [id number] : 1945 Acct:[id number] Age/Sex: 78 / M ADM Date: 06/01/24 Loc: [facility] Room: Type: [facility] Attending Dr: Coleman Gale MD Ordering Provider: Coleman Gale MD Date of Service: 06/01/24 US/US ankle/arm indices: I70.213 - Atherosclerosis of qawalangin arteries of extremiti... Copies to: Coleman Gale [...] Coleman Gale M.D.06/01/2024 2:27 PM Dictation Location: [place] [address] Tech: Maryan Otero Transcribed By: KEVEN 06/01/24 1427 Dictated By: Coleman Gale MD 06/01/24 1425 Signed By: 08/20/24 1427 Normal [facility] Glucose Poct Glucometerson 0 02-26-2024 Glucose [Mass/Vol] 95 mg/dL Normal [facility] Comment on above: Result Comment: [place] om Glucose Reference Range is dependent on time and content of last meal. Glucose of more than 200 mg/dL in a nonstressed, ambulatory subject supports the diagnosis of Diabetes Mellitus. PERFORMED BY: [place] [address] PATHOLOGIST RAYON WINDER PADDY RAY M.D. Performed By: #### H S TROP, BMP #### [address] Commemt1 Glu2: Cleaned Meter Normal [facility] Comment on above: Result Comment: PERF ORMED BY: [place] [address] PATHOLOGIST RAYON WINDER PADDY RAY M.D. Performed By: #### H S TROP, BMP #### [address] Glucose [Mass/Vol] 204 mg/dL Normal [facility] Comment on above: Result Comment: [place] om Glucose Reference Range is dependent on time and content of last meal. Glucose of more than 200 mg/dL in a nonstressed, ambulatory subject supports the diagnosis of Diabetes Mellitus. Performed By: #### H S TROP, BMP #### [address] Glucose [Mass/Vol] 121 mg/dL Normal [facility] Comment on above: Result Comment: [place] om Glucose Reference Range is dependent on time and content of last meal. Glucose of more than 200 mg/dL in a nonstressed, ambulatory subject supports the diagnosis of Diabetes Mellitus. PERFORMED BY: [place] [address] PATHOLOGIST RAYON WINDER PADDY RAY M.D. Performed By: #### G LULS #### Point of Care testing , MR head/brain wo conon 02-25 MR head/brain wo con [facility] [address] MRI Report Signed Patient: Ramon Cruz MR#: [id number] : 1945 Acct:[id number] Age/Sex: 78 / M ADM Date: 02/25/24 Loc: 3T Room: [address] [place] [address] Type: ADM INOo Attending Dr: Homar Gonzalez [...] Robert Callaway M.D.02/26/2024 3:13 PM Dictation Location: [place] [address] Transcribed By: [facility] 02/26/24 1513 Dictated By: Robert Callaway II, MD 02/26/24 1507 Signed By: 02/26/24 1513 Normal [facility] B-Type Natriuretic Peptideon 02-25-2024 Natriuretic peptide B (Bld) [Mass/Vol] 137.0 pg/mL High 5-100 [facility] Comment on above: Result Comment: PERF ORMED BY: [place] [address] PATHOLOGIST RAYON WINDER PADDY RAY M.D. Performed By: #### H S TROP, BMP #### [facility] [address] [place] [address] Basic Metabolic Panelon 02-10 Anion gap [Moles/Vol] 3.2 mmol/L Low 6.0-15.0 [facility] Comment on above: Performed By: #### H S TROP, BMP #### [facility] [address] [place] [address] Calcium [Mass/Vol] 9.2 mg/dL Normal 8.6-10.3 [facility] Comment on above: Performed By: #### H S TROP, BMP #### [place] [address] [place] Chloride [Moles/Vol] 106 mmol/L Normal 98-107 [facility] Comment on above: Performed By: #### H S TROP, BMP #### [facility] [address] [place] [address] [place] CO2 [Moles/Vol] 31.2 mmol/L High 21.0-31.0 [facility] Comment on above: Performed By: #### H S TROP, BMP #### [facility] [address] [place] [address] [place] Creatinine [Mass/Vol] 1.23 mg/dL Normal 0.70-1.30 [facility] Comment on above: Performed By: #### H S TROP, BMP #### [facility] [address] [place] [address] [place] Creatinine Clr Calc Pharmacy 51.09 Normal [facility] Comment on above: Result Comment: PERF ORMED BY: [place] [address] PATHOLOGIST RAYON WINDER PADDY RAY M.D. Performed By: #### H S TROP, BMP #### [place] [address] [place] GFR/1.73 sq M.predicted MDRD (S/P/Bld) [Vol rate/Area] mL/min/{1.73_m2} Normal [facility] Comment on above: Performed By: #### H S TROP, BMP #### [address] Glucose [Mass/Vol] 204 mg/dL High 70-100 [facility] Comment on above: Result Comment: [facility] Glucose Reference Range is dependent on time and content of last meal. Glucose of more than 200 mg/dL in a nonstressed, ambulatory subject supports the diagnosis of Diabetes Mellitus. ADA recommended reference range Performed By: #### H S TROP, BMP #### [address] Potassium [Moles/Vol] 4.4 mmol/L Normal 3.5-5.1 [facility] Comment on above: Performed By: #### H S TROP, BMP #### [address] Sodium [Moles/Vol] 136 mmol/L Normal 136-145 [facility] Comment on above: Performed By: #### H S TROP, BMP #### [place] [address] [place] Urea nitrogen [Mass/Vol] 27 mg/dL High 7-25 [facility] Comment on above: Performed By: #### H S TROP, BMP #### [place] [address] head/brain wo kayla 02-24 CT head/brain wo [facility] [place] [address] [place] [address] CT Scan Report Signed Patient: Ramon Cruz MR#: [id number] : 1945 Acct:[id number] Age/Sex: 78 / M ADM Date: 02/25/24 Loc: Room: [address] [place] [address] Type: ADM INOo Attending Dr: Homar Gonzalez [...] Chen Jr., D.O.02/25/2024 9:44 AM Dictation Location: [place] [address] Transcribed By: [facility] 02/25/24 0944 Dictated By: Carlos Chen Jr, DO 02/25/24 0932 Signed By: 02/25/24 0944 Normal [facility] Complete Blood Count Auto Di ffon 02-25-2024 Basophils (Bld) [#/Vol] 0.1 10*3/uL Normal 0.0-0.2 [facility] Comment on above: Result Comment: PERF ORMED BY: [place] [address] PATHOLOGIST RAYON WINDER PADDY RAY M.D. Performed By: #### H S TROP, BMP #### [address] Basophils/100 WBC (Bld) 1.0 % Normal . [facility] Comment on above: Performed By: #### H S TROP, BMP #### [address] [place] [address] [place] Eosinophils (Bld) [#/Vol] 0.3 10*3/uL Normal 0.0-0.45 [facility] Comment on above: Performed By: #### H S TROP, BMP #### [place] [address] [place] Eosinophils/100 WBC (Bld) 3.3 % Normal . [facility] Comment on above: Performed By: #### H S TROP, BMP #### [address] Erythrocyte distribution width (RBC) [Ratio] 13.7 % Normal 12.0-14.8 [facility] Comment on above: Performed By: #### H S TROP, BMP #### [address] Hematocrit (Bld) [Volume fraction] 40.6 % Normal 38.8-50.0 [facility] Comment on above: Performed By: #### H S TROP, BMP #### [address] Hemoglobin (Bld) [Mass/Vol] 13.4 g/dL Normal 13.0-17.0 [facility] Comment on above: Performed By: #### H S TROP, BMP #### [place] [address] [place] Lymphocytes (Bld) [#/Vol] 2.2 10*3/uL Normal 1.00-4.8 [facility] Comment on above: Performed By: #### H S TROP, BMP #### [place] [address] [place] Lymphocytes/100 WBC (Bld) 26.0 % Normal . [facility] Comment on above: Performed By: #### H S TROP, BMP #### [address] MCH (RBC) [Entitic mass] 29.3 pg Normal 27.5-35.2 [facility] Comment on above: Performed By: #### H S TROP, BMP #### [address] MCV (RBC) [Entitic vol] 89.0 fL Normal 83.5-101 [facility] Comment on above: Performed By: #### H S TROP, BMP #### [address] Mean Corpuscular HGB Conc 32.9 g/dL Normal 32.5-35.6 [facility] Comment on above: Performed By: #### H S TROP, BMP #### [place] [address] [place] Monocytes (Bld) [#/Vol] 0.8 10*3/uL Normal 0.0-0.8 [facility] Comment on above: Performed By: #### H S TROP, BMP #### [address] Monocytes/100 WBC (Bld) 21.11 % High 0.00-20.00 [facility] Comment on above: Result Comment: For adults in ED, MDW > 20.0 may be associated with a higher risk of sepsis during the first 12 hrs of hospital admission Performed By: #### H S TROP, BMP #### [place] [address] [place] Monocytes/100 WBC (Bld) 8.9 % Normal . [facility] Comment on above: Performed By: #### H S TROP, BMP #### [place] [address] [place] Neutrophils (Bld) [#/Vol] 5.2 10*3/uL Normal 1.8-7.7 [facility] Comment on above: Performed By: #### H S TROP, BMP #### [place] [address] [place] Neutrophils/100 WBC (Bld) 60.8 % Normal . [facility] Comment on above: Performed By: #### H S TROP, BMP #### [place] [address] [place] NRBC% 0.1 /100{WBC} Normal 0-0.5 [facility] Comment on above: Performed By: #### H S TROP, BMP #### [address] Platelet mean volume (Bld) [Entitic vol] 8.2 fL Normal 6.6-10.[address] [facility] Comment on above: Performed By: #### H S TROP, BMP #### [address] Platelets (Bld) [#/Vol] 271 10*3/uL Normal 150-450 [facility] Comment on above: Performed By: #### H S TROP, BMP #### [address] RBC (Bld) [#/Vol] 4.57 10*6/uL Normal 3.90-5.[address] [facility] Comment on above: Performed By: #### H S TROP, BMP #### [address] WBC (Bld) [#/Vol] 8.6 10*3/uL Normal 4.1-10.5 [facility] Comment on above: Performed By: #### H S TROP, BMP #### [address] Comprehensive Metabolic Pane jt 02-25-2024 Albumin [Mass/Vol] 3.8 g/dL Normal 3.5-5.7 [facility] Comment on above: Performed By: #### H S TROP, BMP #### [address] Albumin/Globulin [Mass ratio] 1.1 {ratio} Normal [facility] Comment on above: Performed By: #### H S TROP, BMP #### [address] ALP [Catalytic activity/Vol] 114 U/L High 34-104 [facility] Comment on above: Performed By: #### H S TROP, BMP #### [address] ALT [Catalytic activity/Vol] 7 U/L Normal 7-52 [facility] Comment on above: Performed By: #### H S TROP, BMP #### [address] Anion gap [Moles/Vol] 7.7 mmol/L Normal 6.0-15.0 [facility] Comment on above: Performed By: #### H S TROP, BMP #### [address] AST [Catalytic activity/Vol] 17 U/L Normal 13-39 [facility] Comment on above: Performed By: #### H S TROP, BMP #### [address] Bilirubin [Mass/Vol] 0.4 mg/dL Normal 0.3-1.0 [facility] Comment on above: Performed By: #### H S TROP, BMP #### [address] Calcium [Mass/Vol] 9.8 mg/dL Normal 8.6-10.3 [facility] Comment on above: Performed By: #### H S TROP, BMP #### [place] [address] [place] Chloride [Moles/Vol] 102 mmol/L Normal 98-107 [facility] Comment on above: Performed By: #### H S TROP, BMP #### [address] CO2 [Moles/Vol] 31.8 mmol/L High 21.0-31.0 [facility] Comment on above: Performed By: #### H S TROP, BMP #### [place] [address] [place] Creatinine [Mass/Vol] 1.46 mg/dL High 0.70-1.30 [facility] Comment on above: Performed By: #### H S TROP, BMP #### [facility] [address] [place] [address] [place] Creatinine Clr Calc Pharmacy 43.83 Normal [facility] Comment on above: Performed By: #### H S TROP, BMP #### [facility] [address] [place] [address] [place] GFR/1.73 sq M.predicted MDRD (S/P/Bld) [Vol rate/Area] 48.919 mL/min/{1.73_m2} Normal [facility] Comment on above: Performed By: #### H S TROP, BMP #### [facility] [address] [place] [address] [place] Globulin (S) [Mass/Vol] 3.5 g/dL Normal [facility] Comment on above: Performed By: #### H S TROP, BMP #### [address] Glucose [Mass/Vol] 216 mg/dL High 70-100 [facility] Comment on above: Result Comment: [place] Glucose Reference Range is dependent on time and content of last meal. Glucose of more than 200 mg/dL in a nonstressed, ambulatory subject supports the diagnosis of Diabetes Mellitus. ADA recommended reference range Performed By: #### H S TROP, BMP #### [place] [address] [place] Potassium [Moles/Vol] 4.5 mmol/L Normal 3.5-5.1 [facility] Comment on above: Performed By: #### H S TROP, BMP #### [place] [address] [place] Protein [Mass/Vol] 7.3 g/dL Normal 6.4-8.9 [facility] Comment on above: Performed By: #### H S TROP, BMP #### [place] [address] [place] Sodium [Moles/Vol] 137 mmol/L Normal 136-145 [facility] Comment on above: Performed By: #### H S TROP, BMP #### [place] [address] [place] Urea nitrogen [Mass/Vol] 31 mg/dL High 7-25 [facility] Comment on above: Performed By: #### H S TROP, BMP #### [facility] [address] [place] [address] [place] Dipstick and Microscopicon 0 02-25-2024 Appearance (U) Clear Normal Clear [facility] Comment on above: Order Comment: Name Collection Type:: Clean-Voided Midstream Performed By: #### H S TROP, BMP #### [place] [address] [place] Bacteria,Urine None Seen Normal None Seen [facility] Comment on above: Order Comment: Name Collection Type:: Clean-Voided Midstream Performed By: #### H S TROP, BMP #### [place] [address] [place] Bilirubin,Urine Negative Normal Negative [facility] Comment on above: Order Comment: Name Collection Type:: Clean-Voided Midstream Performed By: #### H S TROP, BMP #### [address] Color (U) Yellow Normal Yellow [facility] Comment on above: Order Comment: Name Collection Type:: Clean-Voided Midstream Performed By: #### H S TROP, BMP #### [address] Glucose Ql (U) 500 mg/dL High Normal [facility] Comment on above: Order Comment: Name Collection Type:: Clean-Voided Midstream Performed By: #### H S TROP, BMP #### [place] [address] [place] Hyaline Casts,Urine None Seen Normal 0-8 [facility] Comment on above: Order Comment: Name Collection Type:: Clean-Voided Midstream Result Comment: PERF ORMED BY: [place] [address] PATHOLOGIST RAYON WINDER PADDY RAY M.D. Performed By: #### H S TROP, BMP #### [address] Ketones Ql (U) Negative Normal Negative [facility] Comment on above: Order Comment: Name Collection Type:: Clean-Voided Midstream Performed By: #### H S TROP, BMP #### [address] Leukocyte esterase Test strip Ql (U) Negative Normal Negative [facility] Comment on above: Order Comment: Name Collection Type:: Clean-Voided Midstream Performed By: #### H S TROP, BMP #### [address] Nitrite,Urine Negative Normal Negative [facility] Comment on above: Order Comment: Name Collection Type:: Clean-Voided Midstream Performed By: #### H S TROP, BMP #### [address] Occult Blood,Urine Negative Normal Negative [facility] Comment on above: Order Comment: Name Collection Type:: Clean-Voided Midstream Result Comment: PERF ORMED BY: [place] [address] PATHOLOGIST RAYON WINDER PADDY RAY M.D. Performed By: #### H S TROP, BMP #### [address] pH (U) 5.0 [pH] Normal 5.0-9.0 [facility] Comment on above: Order Comment: Name Collection Type:: Clean-Voided Midstream Performed By: #### H S TROP, BMP #### [address] Protein (U) [Mass/Vol] 100 mg/dL High Negative [facility] Comment on above: Order Comment: Name Collection Type:: Clean-Voided Midstream Performed By: #### H S TROP, BMP #### [place] [address] [place] RBC LM.HPF (Urine sed) [#/Area] 0 /[HPF] Normal 0-4 [facility] Comment on above: Order Comment: Name Collection Type:: Clean-Voided Midstream Performed By: #### H S TROP, BMP #### [address] Specificy [place],Urine 1.019 Normal 1.001-1.030 [facility] Comment on above: Order Comment: Name Collection Type:: Clean-Voided Midstream Performed By: #### H S TROP, BMP #### [address] Squamous Epithelial Cell,Urine None Seen Normal 0-2 [facility] Comment on above: Order Comment: Name Collection Type:: Clean-Voided Midstream Performed By: #### H S TROP, BMP #### [address] Urobilinogen,Urine Normal Normal Normal [facility] Comment on above: Order Comment: Name Collection Type:: Clean-Voided Midstream Performed By: #### H S TROP, BMP #### [address] WBC LM.HPF (Urine sed) [#/Area] 0 /[HPF] Normal 0-4 [facility] Comment on above: Order Comment: Name Collection Type:: Clean-Voided Midstream Performed By: #### H S TROP, BMP #### [address] Glucose Poct Glucometerson 0 02-25-2024 Glucose [Mass/Vol] 224 mg/dL Normal [facility] Comment on above: Result Comment: [place] Glucose Reference Range is dependent on time and content of last meal. Glucose of more than 200 mg/dL in a nonstressed, ambulatory subject supports the diagnosis of Diabetes Mellitus. PERFORMED BY: [place] [address] PATHOLOGIST RAYON WINDER PADDY RAY M.D. Performed By: #### G LULS #### Point of Care testing , Commemt1 Normal [facility] Comment on above: Result Comment: Glu2 : WILL NOTIFY DR/RN Performed By: #### H S TROP, BMP #### [address] Commemt2 Cleaned Meter Normal [facility] Comment on above: Result Comment: PERF ORMED BY: [place] [address] PATHOLOGIST RAYON WINDER PADDY RAY M.D. Performed By: #### H S TROP, BMP #### [address] Glucose [Mass/Vol] 72 mg/dL Normal [facility] Comment on above: Result Comment: [place] om Glucose Reference Range is dependent on time and content of last meal. Glucose of more than 200 mg/dL in a nonstressed, ambulatory subject supports the diagnosis of Diabetes Mellitus. Performed By: #### H S TROP, BMP #### [address] Commemt1 Glu2: Cleaned Meter Normal [facility] Comment on above: Result Comment: PERF ORMED BY: [place] [address] PATHOLOGIST RAYON WINDER PADDY RAY M.D. Performed By: #### G LULS #### Point of Care testing , Glucose [Mass/Vol] 258 mg/dL Normal [facility] Comment on above: Result Comment: [place] om Glucose Reference Range is dependent on time and content of last meal. Glucose of more than 200 mg/dL in a nonstressed, ambulatory subject supports the diagnosis of Diabetes Mellitus. Performed By: #### G LULS #### Point of Care testing , Glucose [Mass/Vol] 197 mg/dL Normal [facility] Comment on above: Result Comment: [place] om Glucose Reference Range is dependent on time and content of last meal. Glucose of more than 200 mg/dL in a nonstressed, ambulatory subject supports the diagnosis of Diabetes Mellitus. PERFORMED BY: [place] [address] PATHOLOGIST RAYON WINDER PADDY RAY M.D. Performed By: #### G LULS #### Point of Care testing , Glucose [Mass/Vol] 194 mg/dL Normal [facility] Comment on above: Result Comment: [place] om Glucose Reference Range is dependent on time and content of last meal. Glucose of more than 200 mg/dL in a nonstressed, ambulatory subject supports the diagnosis of Diabetes Mellitus. PERFORMED BY: [place] [address] PATHOLOGIST RAYON WINDER PADDY RAY M.D. Performed By: #### G MONET #### Point of Care testing , Magnesiumon 02-25-2024 Magnesium [Mass/Vol] 2.0 mg/dL Normal 1.9-2.7 [facility] Comment on above: Performed By: #### H S TROP, BMP #### [place] [address] [place] Partial Thromboplastin Timeo n 02-25-2024 aPTT Coag (Bld) [Time] 26.4 s Normal 25.1-36.5 [facility] Comment on above: Result Comment: A he matocrit value greater than 55% may lead to inaccurate results in coagulation testing. Patients having hematocrit values >55% require a special collection tube for coagulation studies. Please contact the laboratory at [phone] for redraw instructions. PERFORMED BY: [place] [id number] PATHOLOGIST RAYON WINDER PADDY RAY M.D. Performed By: #### H S TROP, BMP #### [address] [address] [place] Prothrombin Time INRon 02-24 INR Coag (PPP) [Relative time] 1.0 {INR} Normal [facility] Comment on above: Result Comment: [...] By: #### H S TROP, BMP #### [address] [address] [place] PT Coag (PPP) [Time] 12.0 s Normal 9.0-12.9 [facility] Comment on above: Result Comment: A he matocrit value greater than 55% may lead to inaccurate results in coagulation testing. Patients having hematocrit values >55% require a special collection tube for coagulation studies. Please contact the laboratory at [phone] for redraw instructions. Performed By: #### H S TROP, BMP #### [address] Thyroid Stimulating Hormoneo n 02-25-2024 TSH Qn 1.69 m[IU]/L Normal 0.45-5.[address] [facility] Comment on above: Result Comment: PERF ORMED BY: [place] [address] PATHOLOGIST RAYON WINDER PADDY RAY M.D. Performed By: #### H S TROP, BMP #### [address] Troponin I High Sensitivityo n 02-25-2024 Troponin I High Sensitivity 93.3 pg/mL Off scale high 0.0-20.0 [facility] Comment on above: Result Comment: Crit ical Result : Called to and read back by: NATASHA QUIÑONES at: 02/25/2024 08:20:19 by:[id number] PERFORMED BY: [place] [address] PATHOLOGIST RAYON WINDER PADDY RAY M.D. Performed By: #### H S TROP, BMP #### [address] Troponin I High Sensitivity 130.7 pg/mL Off scale high 0.0-20.0 [facility] Comment on above: Result Comment: Crit ical Result : Called to and read back by: CASH MANCINI at: 02/25/2024 03:54:01 by:[id number] PERFORMED BY: [place] [address] PATHOLOGIST RAYON WINDER PADDY RAY M.D. Performed By: #### H S TROP, BMP #### [address] XR chest 1V portableon 02-[address] [facility] Main [place] [id number] XRay Report Signed Patient: Ramon Cruz MR#: [id number] : 1945 Acct:[id number] Age/Sex: 78 / M ADM Date: 02/25/24 Loc: 3T Room: [address] [place] [address] Type: ADM INOo Attending Dr: Homar Gonzalez [...] No acute cardiopulmonary pathology. Impression dictated by: Roebrt Callaway M.D.02/25/2024 9:28 AM Dictation Location: [place] [address] Transcribed By: [facility] 02/25/24927 Dictated By: Robert Callaway II, MD 02/25/24926 Signed By: 02/25/24927 Normal [facility] ECG 12 lead ECGon 02-24-2024 [address] [facility] Main [address] [address] Electrocardiograph Report Signed Patient: Ramon Cruz MR#: [id number] : 1945 Acct:[id number] Age/Sex: 78 / M ADM Date: 02/25/24 Loc: 3T Room: [address] [place] [address] Type: ADM INOo Attending Dr: Roe Carpenter [...] Junctional rhythm Confirmed by SILVESTRE ALEXANDER MD ([id number]) on 02/25/2024 5:41:44 AM Referred By: Electronically Signed By:SILVESTRE ALEXANDER MD Transcribed By: MUS Signed By Silvestre Alexander Jr, MD 0541 Normal [facility] Glucose Poct Glucometerson 0 02-24-2024 Commemt1 Glu2: Cleaned Meter Normal [facility] Comment on above: Result Comment: PERF ORMED BY: [address] [address] PATHOLOGIST RAYON WINDER PADDY RAY M.D. Performed By: #### G LULS #### Point of Care testing , Glucose [Mass/Vol] 230 mg/dL Normal [facility] Comment on above: Result Comment: [facility] Glucose Reference Range is dependent on time and content of last meal. Glucose of more than 200 mg/dL in a nonstressed, ambulatory subject supports the diagnosis of Diabetes Mellitus. Performed By: #### G LULS #### Point of Care testing , Capillary blood glucose jerardo urement by glucometer (mass/volume)Ordered By: Manda Lockwood on 02-09-2024 Glucose [Mass/Vol] 165 mg/dL Normal [facility] Comment on above: Random Glucose Refer ence Range is dependent on time and content of last meal. Glucose of more than 200 mg/dL in a nonstressed, ambulatory subject supports the diagnosis of Diabetes Mellitus. Result Comment: [facility] Glucose Reference Range is dependent on time and content of last meal. Glucose of more than 200 mg/dL in a nonstressed, ambulatory subject supports the diagnosis of Diabetes Mellitus. Performed By: #### H S TROP, BMP #### [address] [place] [address] [place] Glucose Poct Glucometerson 0 02-09-2024 Commemt1 Glu2: Cleaned Meter Normal [facility] Comment on above: Result Comment: PERF ORMED BY: [address] [place] [address] PATHOLOGIST RAYON WINDER PADDY RAY M.D. Performed By: #### H S TROP, BMP #### [place] [address] [place] Jt 02-09-2024 L Specimen: [id number] Received: 02/09/24 Status: SOUJina Renoemi Num: [id number] Spec Type: Surgical Subm Dr: Manda Lockwood MD Tissues: A Colon Biopsy (SIGMOID POLYP) Procedures: HE/2, Gross/Micro L4 Age/ Patient Sex Location Account Attending Physician Ramon Cruz 78/M [id number] Manda Lockwood MD SPEC NUM: [id number] RECD: 02/09/24 STATUS: RAMBO ERNST NUM: [id number] CAIO: 02/09/24 DR: Manda Lockwood MD ENTERED: 02/09/[address] [facility] [address]: SPEC TYPE: Surgical DEPT: S ORDERED: [...] Family history of colon cancer CPT Codes 67012 -------- -------- Specimen: [id number] Received: 02/09/24-1040 Status: RAMBO Ernst Num: [id number] Spec Type: Surgical Subm Dr: Manda Lockwood MD Tissues: A Colon Biopsy (SIGMOID POLYP) Procedures: HE/2, Gross/Micro L4 -------- Patient: Ramon Cruz [id number] (Continued) -------- Signed (signature on file) Lili Vicente MD 02/10/24 1037 Normal [facility] No Panel InformationOrdered By: Manda Lockwood on 02-09-2024 Bedside Glucose Comment Glu2: cleaned meter [facility] POINT OF CARE GLUCOSEon 05- Glucose [Mass/Vol] 223 mg/dL Critically high 74-106 T [facility] Comment on above: Performed By: #### P OCGLUC #### [facility] [address] [place] [address] Dr. Radha Camarena Coding Summaryon 01-30-2023 Coding Summary HTMLBase 64 UcleonsrQIi4bHb+PGhlY WQ+UW4PXYFdR29meNWvuU 6QP9eZMA7RWRDETAHEHP9 STA6slYK4VJarN6NyouVf DjoceEVkXP61SXm0FDE0b MhcKPcplL5arQJuS3c6Jf IwLD70aQ08HDrpTXCsLbD 3LjZpbjsgbWFy G0jnWjYptCKpXgt+PHRhY mxlIHdpZHRoPScxMDAlJy ZbxFdcMF6gTf5cVYEnJMT vbGxhcHNlOiBj b4tsVSIyABlfBY9vwYrdD 8FhjVL7VJXvh6l6Gx01vW I+JGFnTFG5wMweJJtci17 9BlWkc3vjHPL4 zINqIEtpQGO9S79zo5P4E LOlFAIwTYP0oUH0rP6vnC kvvnjeC9MklOMkUpO3RSY 6fDHtcR1lsAqt ksbqhR6wOul+B01PVI7WL PMHCH5LRfv1Q1ZnUhfmcZ I+HN03IXTcCM51vYRgvFW mx4mngUl2TqMn NVTcINF0oHyhNRgwr8YsQ DNtL87ldHCzh8B7LHVuuN ymwOYoCjEdeXO3kC8qCNm nfinnf5pzrfmo Rguxm3gzbg76xZ48W85zX HbcQBDvWEG9TACrCMHdoK rwwk3bbS9fJk3+JWfdw9o xe3aqwVv7UmJw WVXtnvAunJabRAJ4p0YbT a65N8UymKhvl0XwTki7rs 25pHGyb1N5hBD2HXxrBJM fiZ8jOHukUqF6 JWMeVbHshH23xTYoMSahS g2reYsjqAucAT4gBJElvl nsRJKxvU5yVMRzhXXxpOx nEZ2pATGywyhz z609NiVgUAU8NBTmfCTxY 4PmfW0aXyYxGZGeYCWqW1 YdrMMkYOzyZ617CUluVrV 2ZOHgmeJfK0Dg OEKijHwgObZ5b1C6Ap6Zg 7YmhduaYCI6WLkrCQB6Ch GbGbGbPsE5I6TqLfi6PEL nwPmnWU4rZ2Gx UZAkidclfmteyGN7FPBwS BVyfR26hSNoYFcdKq4dh4 A9c130MVGiIYTndQ92Ww6 udDogMTBwdCBU sZ2cwipjx2uhglldQvMqZ QWpVEf2OPb1BGNccBtfOy TjORI3DcW0BLK2lCVdhM6 jzUbuxewvvP7a Oyc+N61flI2mAIH9ZAA7f bhcQPByhhCyKD64YT85M6 RyPjwvdGFibGU+PGRpdiB ueCdcHO9iNrIk v2mmn8YjGHjqR6GlIPKjW ApiXgl7TIDcFOZ9iHC9xH 7dGUEsHQudu2T9kHE2I8B tujQnkq8jm1tt CQSbIXidD14ntIShs8P2O HPesOF6TYGgmJlhXjCgxW 93Oyc+RJUwcNwuq7UvDab ht5kat8etqNi2 SuKbOKXlbsIxaFelUSS7t 5FtPx16X49iCBpqFEAcOU FyVFKrNSSupPoljf3jgH7 wIi8+PGNvbCB3 tZY2lI5nNVUgUnE1DSrtM 797AuZqaFQsLuzgp9nel1 klyQy8NuSyAHYhamDxjNu wPIA4n7LaEp03 I09zWAquATAlQYKbLKCrO TKcsVibry9htD7tDc0+PC 5lm7djxj87cB65mGT+PHR qXCG9oFipHCzf RCTejM4hMFcuAgC2UZOlU nJhnX56aXRiTEtnGf6fmX ukpNyxAN6kNVFtfntpp38 5BuMif9baUGFy dTBaONgaJRO5G56ka8X0D KBpZOLsFRN3uVU5yJ4uxP lnbjogbGVmdDsgdmVydGl lLIbrAMeyR599 IHRvcDsnPlBhdGllbnQgT wGpGEc7J0UgRfd0BDCspJ wqXN3mhMLhKEuuHy2fvJx dtVsoQM0hGHTz mttad843QcJax9wgKACxh WCyDTbeZUN6P28ww4J4ZC YzQXCcQBQ7iCR5bJ3auDx nbjogbGVmdDsg iuDvcNnfWHdlSWscJ908U HRvcDsnPkJpcnRoIERhdG U7OK44QG16kJEge1X2tMP 5W0GqEOZkdfao tfrlqTQ2OLFnOSZqxH78W v9dvCsbXw7mIVEzPLC6QE NpmQEgV3WddN3oXhGyZEP iYPVlX4YjyKSf BDrmU500PVmqZjF2WWIot tOmJ2LqCHNaiDojHmP3b1 I4Rr9KY6A8JC47UW07mAS vt0G3wVZ3Z2Ti NRLumvpalmldmVJ3TJCrJ TBkkZ78Vu3vwFwbZg2vIF QyAQT6TKLetLObB7LblO5 yOiAjMDAwMDAw H2WwvXLeMXhrC325XItpL zU0DTMwryDrH7LdOZEmpA ntSoV1v9J0We0WNEn1OQ3 0OG96pJUkb7C5 yBL1G1IaUSOclqrsdwpus OU4XNOnRJSwqA35Hv5vrG saOd2dYYJtJVJ8FXBzfRW eE9BskY1dEdPr TQHiQSIzO4AopDMtGTusJ 019IJzsNzA3BUZikxOlU6 GiHNEjyNddOgD4b8F8No3 BESHeQS26RZO7 aRY6AG05PL89P5LyFkger GFibGU+PHRhYmxlIHdpZH RoPScxMDAlJyBzdHlsZT0 oFb8pQRHgGAAr yCjsxHHuImSnm3lyUDUgN KvoRS7hzJnpV3XpaMR1SC Fdk1b8Gp41Y64dM8IrbGS +GSPwjSS4eEU4 wZ1lKqCtFbO9PEmpV287C aXfiOOfOkcku2gvf0bucB p9LeX5LUSsyiMbzRewUTR 8f5MzAo48P02p IHdpZHRoPSIxNSUiIHZhb Ghpdm4rbB4gZs1+PGNvbC L3xDA0iS6qOqJpZtS1VPz yS526AhGsoSHv Ynequ3lkl8weyNx9PmUcH EKuckFqtNrnCDR7l0HjAe 20P4LziUyny4IzOmo6cu2 7oCAtt9I6mFB4 U2EsCTThtevipOMxnZyrN P8hVOItgorxPVZrfR7zGB PqS5z6RsRnAlG7ZXqyQ0Y wbwG5GXSwjTIx ATjuZRB5T35qq6G1NAKqH UQeIYD8hAG5zH0agZkuak ogbGVmdDsgdmVydGljYWw eHOshX378IDQi oOirFLTwxF8fOHMukAAag OtoJG0pLHZezlvrStpFFD kUDxdyH0bUMLnWJADVTBS TCGRJKZ59KL08 lBHqs0I8lZM9Y3KfVQJso ujkiybkeCL0OLWzNPJqtI 40nIYqXRqwSq9ze1H2r46 4JFVaXENryC01 Ig5lxSmkSSMriSDKvS6lb skny0yjtrcfJmXdLCYhSC w9BQw0PLUxiEidUqMuUIO 1NyT4DPP5pDIi gK3laJxxtsgwsG4lTlq+M YIvDSpxCDf5RBpunGM+PH KpQAN5eQrjFKjzGYSvoO4 kTUTuH2j8JySv VcX7WKarK7RiNNFnloznI v79yC2eRqWmWaR6KGthZ2 PpsxV7LIOusCWcPAqeGHV 7U18ky1C7SPGq UBTzULB5hJC3mG8kkRfif jogbGVmdDsgdmVydGljYW qpBIjeR492WOFztUrlIqs 5YVeoEKOcHZ09 VQ62rKJyb8U1mVC3X3GgO AMdurgtynajwSH1IFPcFQ XksL70zVHvBKypBk2un2R 5r562CXKyEIZb aM74Kp4iqQkdQIYirBTQi G7jmmwgw2ligfhyAkCzKG HjNAi6OVr1DHYrjNimIwC wTBP9HyY0OFE8 kVPhmG7obQgsjieebO6eZ yc+TUFMRTwvdGQ+PHRkIH U2vPzaYJfoUFRpiJ1uBWB xN6q4UtIxCrO9 WOjsI1OkMCBiitesDy38h O2dSeTdUbX2RKlkB9Iqdi I1GTEgaJTwPZcjDYD9H89 wx4F5ZHHgKBJl DXM6lGB9aZ1peKjlwzddm GVmdDsgdmVydGljYWwtYW ueF935ILAcnJhgGk0XDT3 6KC71D2RtWbhf dGFibGU+PHRhYmxlIHdpZ HRoPScxMDAlJyBzdHlsZT 1yHi9lAWDwQSKrhVnepOD eIrIvp1hrBHGh YWrvDN9nvCoiE3VdfMR3K HHmd3u2Nc29T13eV9YepM A+PRJuaHN7yFH7cP6lWgY kPvG6JObnR184 AgVjhYBoKyasg6oue0tfu Vu0DjHiOBCxpqUdyZsnRE Q0i2RvCc49E43zBUdrZVV oPSIyMCUiIHZh zUehnm0hvA9kMk1+PGNvb GH4mUS8kN8sLqTiLdD3DV mrV679KdLyzNGqHuivH42 vB5YiyFY+PHRy Son2AWRvcPwhEI4vkUXuI HatSl5iLYZ7PlJtLpXaVZ biX9TsSKTrqexfoayjfMC 1PDLcHTYtoV39 Be9htPmcFk1dSURcUBV8L AFxtFFzV8SjqV1wYkDzCF IgLZUwN9XjoWPfBTndX53 4LRsqTdF0YIFf enRzW1DxTCYyoByxSfG4w 1T8Wr9EiVawqZEcDZ5oDv IzNBb6S6MiVxt1SFSvwZd qZO1udJLrPQdq Cm2luZgzcKjzDP2rYRGgj pzuu419FfLct7wfBIVatL FgIYqyLSQ6K23iz6C2UQM oZPSjHBY5nLM1 cN5owDumguzoaNDyvGadg dIbcDcmSFrhXGvqY522OY JsyRloVlESYrr2I1HwGlw 8ZZWkvIvaNA5n gPYiVAayZt3mrVroyRisZ Y7lNFWdyzagk963KqCng5 kwPFFqdPQsWFxuTFD5M16 ok7W9SSSgSUQc HST5iWF5iY7vkRbsfkiqo GVmdDsgdmVydGljYWwtYW bhE687XCHeoEdoJj8CZkt 6Q9QbDco1JDAn oTqkJT2gsUPdPUmnBp1sp SewmPjuFF3lXPGaddjtt8 09HxPac0yaBRZzdHBoXWa oMHE3B50lh8T1 OREeSQNiAMB3eBU1cV7md GlnbjogbGVmdDsgdmVydG kiRKeuGJhhZ753CVWopMo nPlBheWVyOjwv dGQ+CE70sd44Y2SyZswyW xk3PGSeWRD3eQY9zG4rPF BjUQxld6O6yFB1L5RbzuE els3dn5haJZNr ZTo (more content not included)... Normal [facility] Provider Orderson 01-29-2023 Provider Orders [id number] Normal [facility] PSA Diagnosticon 01-28-2023 PSA Diagnostic 5.10 ng/mL High 0.00-4.00 [facility] Comment on above: Result Comment: [employer] Clinical System (Chemiluminescence) Values obtained with different assay methods or kits cannot be used interchangeably. Results cannot be interpreted as absolute evidence of the presence or absence of malignant disease. Performed By: #### [id number] #### [facility] (DEFAULT) [address] [place] [address] POINT OF CARE GLUCOSEon 09-13 Glucose [Mass/Vol] 95 mg/dL Normal 74-106 [facility] Comment on above: Performed By: #### P OCGLUC #### [facility] [address] [place], [place] [address] Dr. Rdaha Camarena XR Chest 2 Views*on 09-02-20 22 [...] Roe Garcia on 09/02/2022 1057 Normal [facility] HEMOGLOBIN A1Con 05-28-2022 Glucose [Mass/Vol] 160 mg/dL Normal [facility] Comment on above: Order Comment: PATIE NT FASTING Performed By: #### H BA1E #### [facility] [address] [place] [address] HbA1c (Bld) [Mass fraction] 7.2 % Abnormal [facility] Comment on above: Order Comment: PATIE NT FASTING Result Comment: Diag nosis of Diabetes-Adults Non-Diabetic: < or = 5.6% Increased risk for developing diabetes: 5.7-6.4% Diagnostic of diabetes: > or = 6.5% . Monitoring of Diabetes Age (y) Therapeutic Goal (%) Adults: >18 <7.0 Pediatrics: 13-18 <7.5 7-12 <8.0 0- 6 7.5-8.5 [place] [employer]. Diabetes Care 33(S1), Oct 2009. Performed By: #### H BA1E #### [facility] [address] [place] [address] BASIC METABOLIC PANELon 08- Anion gap [Moles/Vol] 13 mmol/L Normal 10 - 20 [facility] Comment on above: Order Comment: PATIE NT FASTING Performed By: #### B MP #### [facility] [address] [place] [address] Calcium [Mass/Vol] 9.9 mg/dL Normal 8.6 - 10.6 [facility] Comment on above: Order Comment: PATIE NT FASTING Performed By: #### B MP #### [facility] [address] [place] [address] Chloride [Moles/Vol] 101 mmol/L Normal 98 - 107 [facility] Comment on above: Order Comment: PATIE NT FASTING Performed By: #### B MP #### [facility] [address] [place] [address] Creatinine [Mass/Vol] 1.21 mg/dL Normal 0.50 - 1.30 [facility] Comment on above: Order Comment: PATIE NT FASTING Performed By: #### B MP #### [facility] [address] [place] [address] GFR/1.73 sq M.predicted among non-blacks MDRD (S/P/Bld) [Vol rate/Area] 62 mL/min/{1.73_m2} Normal >90 [facility] Comment on above: Order Comment: PATIE NT FASTING Result Comment: CALC ULATIONS OF ESTIMATED GFR ARE PERFORMED USING THE 2020 CKD-EPI STUDY REFIT EQUATION WITHOUT THE RACE VARIABLE FOR THE IDMS-TRACEABLE CREATININE METHODS. https://jasn.asnjournals.org/content//ASN.41930 39495 Performed By: #### B MP #### [facility] [address] [place] [address] Glucose [Mass/Vol] 88 mg/dL Normal 74 - 99 [facility] Comment on above: Order Comment: PATIE NT FASTING Performed By: #### B MP #### [facility] [address] [place] [address] HCO3 (Bld) [Moles/Vol] 30 mmol/L Normal 21 - 32 [facility] Comment on above: Order Comment: PATIE NT FASTING Performed By: #### B MP #### [facility] [address] [place] [address] Potassium [Moles/Vol] 4.6 mmol/L Normal 3.5 - 5.3 [facility] Comment on above: Order Comment: PATIE NT FASTING Performed By: #### B MP #### [facility] [address] [place] [address] Sodium [Moles/Vol] 139 mmol/L Normal 136 - 145 [facility] Comment on above: Order Comment: PATIE NT FASTING Performed By: #### B MP #### [facility] [address] [place] [address] Urea nitrogen [Mass/Vol] 28 mg/dL High 6 - 23 [facility] Comment on above: Order Comment: PATIE NT FASTING Performed By: #### B MP #### [facility] [address] [place] [address] Blood Pressure Cuff Sizeon 0 05-27-2022 Fall risk assessment a) No falls within the last year -[facility] Work Phone: Tobacco use status CPHS b) No -[facility] Work Phone: Blood Pressure Cuff Size Adult MP-[facility] Work Phone: Hemoglobin A1Con 05-27-2022 Glucose [Mass/Vol] 160 mg/dL [facility] Work Phone: HbA1c (Bld) [Mass fraction] 7.2 % Abnormal [facility] Work Phone: Comment on above: Diagnosis of Diabete s-Adults Non-Diabetic: < or = 5.6% Increased risk for developing diabetes: 5.7-6.4% Diagnostic of diabetes: > or = 6.5%. Monitoring of Diabetes Age (y) Therapeutic Goal (%) Adults: >18 <7.0 Pediatrics: 13-18 <7.5 7-12 <8.0 0- 6 7.5-8.5 [place] [employer]. Diabetes Care 33(S1), Oct 2009. LIPID PANEL (CORONARY RISK 2 )on 05-27-2022 Cholesterol [Mass/Vol] 131 mg/dL Normal 0 - 199 [facility] Comment on above: Order Comment: RICHARD [...] dosing. Performed By: #### L IPID #### [facility] [address] [place] [address] Cholesterol in HDL [Mass/Vol] 37.8 mg/dL Abnormal [facility] Comment on above: Order Comment: RICHARD NT FASTING Result Comment: . AGE VERY LOW LOW NORMAL HIGH 0-19 Y < 35 < 40 40-45 ---- 20-24 Y ---- < 40 >45 ---- >24 Y ---- < 40 40-60 >60 . Performed By: #### L IPID #### [facility] [address] [place] [address] Cholesterol in LDL [Mass/Vol] 59 mg/dL Normal 0 - 99 [facility] Comment on above: Order Comment: PATIE NT FASTING Result Comment: . NEAR BORD AGE DESIRABLE OPTIMAL HIGH HIGH VERY HIGH 0-19 Y 0 - 109 --- 110-129 >/= 130 ---- 20-24 Y 0 - 119 --- 120-159 >/= 160 ---- >24 Y 0 - 99 100-129 130-159 160-189 >/=190 . Performed By: #### L IPID #### [facility] [address] [place] [address] Cholesterol in VLDL [Mass/Vol] 34 mg/dL Normal 0 - 40 [facility] Comment on above: Order Comment: PATIE NT FASTING Performed By: #### L IPID #### [facility] [address] [place] [address] Cholesterol.total/Chol esterol in HDL [Mass ratio] 3.5 {ratio} Normal [facility] Comment on above: Order Comment: PATIE NT FASTING Result Comment: REF VALUES DESIRABLE < 3.4 HIGH RISK > 5.0 Performed By: #### L IPID #### [facility] [address] [place] [address] Triglyceride [Mass/Vol] 169 mg/dL High 0 - 149 [facility] Comment on above: Order Comment: PATIE [...] Performed By: #### L IPID #### [facility] [address] [place] [address] Laboratory - Chemistry and C hemistry - challengeon 05-27-2022 Anion gap [Moles/Vol] 13 mmol/L 10 - 20 [facility] Work Phone: Calcium [Mass/Vol] 9.9 mg/dL 8.6 - 10.6 [facility] Work Phone: Chloride [Moles/Vol] 101 mmol/L 98 - 107 [facility] Work Phone: CO2 [Moles/Vol] 30 mmol/L 21 - 32 [facility] Work Phone: Creatinine [Mass/Vol] 1.21 mg/dL See Below [facility] Work Phone: [phone] Comment on above: Reference Range: 0.5 0 - 1.30 Glucose [Mass/Vol] 88 mg/dL 74 - 99 [facility] Work Phone: Potassium [Moles/Vol] 4.6 mmol/L 3.5 - 5.3 [facility] Work Phone: [phone] Sodium [Moles/Vol] 139 mmol/L 136 - 145 [facility] Work Phone: Urea nitrogen [Mass/Vol] 28 mg/dL above high threshold 6 - 23 [facility] Work Phone: Lipid Panelon 05-27-2022 Cholesterol [Mass/Vol] 131 mg/dL 0 - 199 [facility] Work Phone: Comment on above: . [...] guidelines reference: NCEP ATPIII Guidelines, WALTER 2001, 258:7176-97. Venipuncture immediately after or during the administration of Metamizole may lead to falsely low results. Testing should be performed immediately prior to Metamizole dosing. Cholesterol in HDL [Mass/Vol] 37.8 mg/dL Abnormal [facility] Work Phone: Comment on above: . AGE VERY LOW LOW N ORMAL HIGH 0-19 Y < 35 < 40 40-45 ---- 20-24 Y ---- < 40 >45 ---- >24 Y ---- < 40 40-60 >60. Cholesterol in LDL [Mass/Vol] 59 mg/dL 0 - 99 [facility] Work Phone: Comment on above: . NEAR BORD AGE ANNE RABLE OPTIMAL HIGH HIGH VERY HIGH 0-19 Y 0 - 109 --- 110-129 >/= 130 ---- 20-24 Y 0 - 119 --- 120-159 >/= 160 ---- >24 Y 0 - 99 100-129 130-159 160-189 >/=190. Cholesterol.total/Chol esterol in HDL [Mass ratio] 3.5 {ratio} [facility] Work Phone: Comment on above: REF VALUESDESIRABLE < 3.4HIGH RISK > 5.0 Triglyceride [Mass/Vol] 169 mg/dL above high threshold 0 - 149 [facility] Work Phone: Comment on above: [...] Lipid Panel 34 mg/dL 0 - 40 [facility] Work Phone: No Panel Informationon 05-27 62 {mL/min/1.73m2} >90 [facility] Work Phone: Comment on above: CALCULATIONS OF ARISTIDES MATED GFR ARE PERFORMED USING THE 2020 CKD-EPI STUDY REFIT EQUATION WITHOUT THE RACE VARIABLE FOR THE IDMS-TRACEABLE CREATININE METHODS.https://jasn.asnjournals.org/content/early/A SN.9072693142 Office Visit (Internal Medic ine)on 05-27-2022 Follow-up [...] mellitus; GAVIN = N; Verified Transmission to [facility]; Last Updated By: Pratima Callahan; 05/27/2022 10:05:07 AM Continue: FreeStyle InsuLinx System w/Device Kit; USE DIRECTED Rx By: Poli Mercado; Dispense: 0 Days ; #:1 Kit; Refill: 0;For: Diabetes mellitus; GAVIN = N; Verified Transmission to [id number]; Last Updated By: Pratima Callahan; 05/27/2022 10:05:07 AM Continue: FreeStyle InsuLinx Test In Vitro Strip; TEST ONCE DAILY *E11.9* Rx By: Poli Mercado; Dispense: 90 Days ; #:100 Strip; Refill: 3;For: Diabetes mellitus; GAVIN = N; Verified Transmission to [facility]; Last Updated By: Pratima Callahan; 05/27/2022 10:05:07 AM Continue: Glimepiride 1 MG Oral Tablet; TAKE 1 TABLET BY MOUTH EVERY DAY Rx By: Poli Mercado; Dispense: 90 Days ; #:90 Tablet; Refill: 2;For: Diabetes mellitus; GAVIN = N; Verified Transmission to [facility]; Last Updated By: Pratima Callahan; 05/27/2022 10:05:07 AM Continue: Lantus SoloStar 100 UNIT/ML Subcutaneous Solution Pen-injector; INJECT 20 UNITS SUBCUTANEOUSLY EVERY DAY OR AMOUNT DIRECTED Rx By: Poli Mercado; Dispense: 0 Days ; #:1 X 5 x 3 ML Pen; Refill: 1;For: Diabetes mellitus; GAVIN = N; Verified Transmission to [facility]; Last Updated By: Pratima Callahan; 05/27/2022 [...] Hyperlipidemia; GAVIN = N; Verified Transmission to [facility]; Last Updated By: Pratima Callahan; 05/27/2022 10:05:07 AM Hypertension Start: Lisinopril 20 MG Oral Tablet; TAKE 1 TABLET DAILY Rx By: Poli Mercado; Dispense: 90 Days ; #:90 Tablet; Refill: 3;For: Hypertension; GAVIN = N; Verified Transmission to [facility]; Last Updated By: Alesha Claudio; 05/27/2022 [...] Hypertension; GAVIN = N; Verified Transmission to [facility]; Last Updated By: Pratima Callahan; 05/27/2022 10:05:07 AM Lipid Panel; Status:In Progress - Specimen/Data Collected; Done: [id number] Perform:Lab Services - Lab To Draw (Blood Test); Due:25Aug2022;Ordered ; For:Hypertension; Ordered By:Poli Mercado; Continue: Clopidogrel Bisulfate 75 MG Oral Tablet; TAKE 1 TABLET BY MOUTH EVERY DAY Rx By: Poli Mercado; Dispense: 90 Days ; #:90 Tablet; Refill: 3;For: Hypertension; GAVIN = N; Verified Transmission to [facility]; Last Updated By: Pratima Callahan; 05/27/2022 [...] Last Updated (more content not included)... Normal [facility] PROSTATE SPECIFIC AGon 05-27 Prostate specific Ag [Mass/Vol] 4.54 ng/mL High 0.00 - 4.00 [facility] Comment on above: Order Comment: RICHARD NT FASTING Result Comment: The FDA requires that the method used for PSA assay be reported to the physician. Values obtained with different assay methods must not be used interchangeably. This test was performed at [facility] using the Siemens Atellica PSA method, which is a sandwich immunoassay using chemiluminescence for quantitation. The assay is approved for measurement of prostate-specific antigen (PSA) in serum and may be used in conjunction with a digital rectal examination in men 50 years and older as an aid in detection of prostate cancer. 5-Gxxbe-gomuerbcj inhibitors (e.g. Proscar, Finasteride, Avodart, Dutasteride and Varsha) for the treatment of BPH have been shown to lower PSA levels by an average of 50% after 6 months of treatment. Performed By: #### P SA #### [facility] [address] [place] [address] Prostate Specific Antigenon 05-27-2022 Prostate specific Ag [Mass/Vol] 4.54 ng/mL above high threshold See Below [facility] Work Phone: Comment on above: Reference Range: 0.0 0 - 4.00The FDA requires that the method used for PSA assay be reported to the physician. Values obtained with different assay methods must not be used interchangeably. This test was performed at [facility] using the SiemensAtellica PSA method, which is a sandwich immunoassay using chemiluminescence for quantitation. The assay is approvedfor measurement of prostate-specific antigen (PSA) in serum and may be used in conjunction with a digital rectalexamination in men 50 years and older as an aid in detection of prostate cancer. 3-Rxkyi-ruxavwbup inhibitors (e.g. Proscar, Finasteride, Avodart, Dutasteride and Varsha) for the treatment of BPH have been shown to lower PSA levels by an average of 50% after 6 months of treatment. Prostatic Specific Antigen, Totalon 01-16-2022 TPSA 4.280 ng/mL High <4.000 [facility] Comment on above: Result Comment: PSA Test Method: ECLIA/Dung e 601 Performed By: #### P SA #### [facility] [address], [place] [id number] BUNon 10-08-2021 Urea nitrogen [Mass/Vol] 31 mg/dL High 7-25 [facility] Comment on above: Performed By: #### C GUSTAVO, BUN #### [facility] [address], [place] [id number] Creatinineon 10-08-2021 Creatinine [Mass/Vol] 1.3 mg/dL Normal 0.7-1.4 [facility] Comment on above: Performed By: #### C GUSTAVO, BUN #### [facility] [address], [place] [id number] eGFRAA 66 mL/min/1.73m2 Normal >60 [facility] Comment on above: Performed By: #### C GUSTAVO, BUN #### [facility] [address], [place] [id number] eGFRNAA 54 mL/min/1.73m2 Low >60 [facility] Comment on above: Performed By: #### C GUSTAVO, BUN #### [facility] [address], [place] [id number] Hemoglobin A1Con 10-08-2021 EAG 162.81 Normal [facility] Comment on above: Performed By: #### A 1C #### [facility] [address], [place] [id number] HbA1c (Bld) [Mass fraction] 7.3 % High 4.0-6.0 [facility] Comment on above: Performed By: #### A 1C #### [facility] [address], [place] [id number] Hemoglobin A1Con 09-05-2021 Glucose [Mass/Vol] 154 mg/dL [facility] Work Phone: HbA1c (Bld) [Mass fraction] 7.0 % Abnormal [facility] Work Phone: Comment on above: Diagnosis of Diabete s-Adults Non-Diabetic: < or = 5.6% Increased risk for developing diabetes: 5.7-6.4% Diagnostic of diabetes: > or = 6.5%. Monitoring of Diabetes Age (y) Therapeutic Goal (%) Adults: >18 <7.0 Pediatrics: 13-18 <7.5 7-12 <8.0 0- 6 7.5-8.5 [place] [employer]. Diabetes Care 33(S1), Oct 2009. Laboratory - Chemistry and C hemistry - challengeon 09-05-2021 Anion gap [Moles/Vol] 12 mmol/L 10 - 20 MP- [facility] Work Phone: Calcium [Mass/Vol] 10.0 mg/dL 8.6 - 10.6 [facility] Work Phone: Chloride [Moles/Vol] 103 mmol/L 98 - 107 -[facility] Work Phone: CO2 [Moles/Vol] 32 mmol/L 21 - 32 [facility] Work Phone: Creatinine [Mass/Vol] 1.50 mg/dL above high threshold See Below [facility] Work Phone: Comment on above: Reference Range: 0.5 0 - 1.30 Glucose [Mass/Vol] 109 mg/dL above high threshold 74 - 99 [facility] Work Phone: Potassium [Moles/Vol] 5.2 mmol/L 3.5 - 5.3 [facility]- [facility] Work Phone: Sodium [Moles/Vol] 142 mmol/L 136 - 145 [facility] Work Phone: Urea nitrogen [Mass/Vol] 26 mg/dL above high threshold 6 - 23 [facility] Work Phone: Lipid Panelon 09-05-2021 Cholesterol [Mass/Vol] 141 mg/dL 0 - 199 [facility] Work Phone: Comment on above: [...] dosing. Cholesterol in HDL [Mass/Vol] 48.3 mg/dL [facility] Work Phone: Comment on above: . AGE VERY LOW LOW N ORMAL HIGH 0-19 Y < 35 < 40 40-45 ---- 20-24 Y ---- < 40 >45 ---- >24 Y ---- < 40 40-60 >60. Cholesterol in LDL [Mass/Vol] 75 mg/dL 0 - 99 [facility] Work Phone: Comment on above: . NEAR BORD AGE ANNE RABLE OPTIMAL HIGH HIGH VERY HIGH 0-19 Y 0 - 109 --- 110-129 >/= 130 ---- 20-24 Y 0 - 119 --- 120-159 >/= 160 ---- >24 Y 0 - 99 100-129 130-159 160-189 >/=190. Cholesterol.total/Chol esterol in HDL [Mass ratio] 2.9 {ratio} [facility] Work Phone: Comment on above: REF VALUESDESIRABLE < 3.4HIGH RISK > 5.0 Triglyceride [Mass/Vol] 87 mg/dL 0 - 149 [facility] Work Phone: Comment on above: [...] Lipid Panel 17 mg/dL 0 - 40 [facility] Work Phone: No Panel Informationon 09-05 54 {mL/min/1.73m2} Abnormal >60 MP-[facility] Work Phone: Comment on above: CALCULATIONS OF ARISTIDES MATED GFR ARE PERFORMED USING THE MDRD STUDY EQUATION FOR THE IDMS-TRACEABLE CREATININE METHODS. CLIN CHEM 2007;53:766-72 45 {mL/min/1.73m2} Abnormal >60 [facility] Work Phone: Office Visit [...] mellitus; GAVIN = N; Verified Transmission to [facility]; Last Updated By: Pratima Callahan; 09/05/2021 10:22:32 AM Basic Metabolic Panel; Status:In Progress - Specimen/Data Collected; Done: 05Sep2021 Perform:Lab Services - Lab To Draw (Blood Test); Due:04Dec2021;Ordered ; For:Diabetes mellitus; Ordered By:Poli Mercado; Continue: FreeStyle InsuLinx System w/Device Kit; USE DIRECTED Rx By: Poli Mercado; Dispense: 0 Days ; #:1 Kit; Refill: 0;For: Diabetes mellitus; GAVIN = N; Verified Transmission to [facility] [id number]; Last Updated By: Pratima Callahan; 09/05/2021 10:22:32 AM Continue: FreeStyle InsuLinx Test In Vitro Strip; TEST ONCE DAILY *E11.9* Rx By: Poli Mercado; Dispense: 90 Days ; #:100 Strip; Refill: 3;For: Diabetes mellitus; GAVIN = N; Verified Transmission to [facility]; Last Updated By: Pratima Callahan; 09/05/2021 10:22:32 AM Continue: Glimepiride 1 MG Oral Tablet; TAKE 1 TABLET BY MOUTH EVERY DAY Rx By: Poli Mercado; Dispense: 90 Days ; #:90 Tablet; Refill: 2;For: Diabetes mellitus; GAVIN = N; Verified Transmission to [facility]; Last Updated By: Pratima Callahan; 09/05/2021 10:22:32 AM Continue: Lantus SoloStar 100 UNIT/ML Subcutaneous Solution Pen-injector; INJECT 20 UNITS SUBCUTANEOUSLY EVERYDAY Rx By: Poli Mercado; Dispense: 0 Days ; #:1 X 5 x 3 ML Pen; Refill: 1;For: Diabetes mellitus; GAVIN = N; [facility]; Last Updated By: Pratima Callahan; 09/05/2021 [...] Services - Lab To Draw (Blood Test); Due:[id number];Ordered ; For: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; Ordered By:Poli Mercado; Hyperlipidemia Continue: Atorvastatin Calcium 20 MG Oral Tablet; TAKE 1 TABLET BY MOUTH EVERY DAY Rx By: Poli Mercado; Dispense: 90 Days ; #:90 Tablet; Refill: 3;For: Hyperlipidemia; GAVIN = N; Verified Transmission to [facility]; Last Updated By: Pratima Callahan; 09/05/2021 10:22:32 AM Hypertension Continue: amLODIPine Besylate 10 MG Oral Tablet; TAKE 1 TABLET BY MOUTH EVERY DAY Rx By: Poli Mercado; Dispense: 90 Days ; #:90 Tablet; Refill: 2;For: Hypertension; GAVIN = N; Verified Transmission to [facility]; Last Updated By: Pratima Callahan; 09/05/2021 10:22:32 AM Continue: Clopidogrel Bisulfate 75 MG Oral Tablet; TAKE 1 TABLET BY MOUTH EVERY DAY Rx By: Poli Mercado; Dispense: 90 Days ; #:90 Tablet; Refill: 3;For: Hypertension; GAVIN = N; Verified Transmission to [facility]; Last Updated By: Pratima Callahan; 09/05/2021 [...] follow dm//bp History of Present [facility]nessm[place] [facility] [place] had flu sjot/ had covid booster eye.. dr. mg sommer in [place] hg 120 s no log here, agent lantus plus glimep has a pcp in [facility] no hypos feels well drove here from [facility] this am will travel to [place] this winter Review of Systems Constitutional: no [...] (I10) Obes (more content not included)... Normal [facility] Vital Signs Date Time Vital Sign Value Performing Clinician Facility 10-25-2024 10:13-0500 Body height 170.2 cm Tom Field Couple Phone: [email or web address] 10-25-2024 10:13-0500 Body temperature 97.3 [degF] Tom RodriguezGolden [employer] Couple Phone: [email or web address] 10-25-2024 10:13-0500 Diastolic blood pressure 60 mm[Hg] [employer] Phone: [email or web address] 10-25-2024 10:13-0500 Heart rate 62 /min Tom [employer] Phone: [email or web address] 10-25-2024 10:13-0500 SaO2% (BldA) [Mass fraction] 97 % Tom [employer] Phone: [email or web address] 10-25-2024 10:13-0500 Systolic blood pressure 122 mm[Hg] Tom RodriguezGolden [employer] Couple Phone: [email or web address] 10-05-2024 07:56-0500 Body height 170.2 cm Sunny Vasquez Couple Phone: [email or web address] 10-05-2024 07:56-0500 Body mass index (BMI) [Ratio] 29.76 kg/m2 Sunny [employer] Phone: [email or web address] 10-05-2024 07:56-0500 Body weight 86.18 kg Sunny Phank DO Work Phone: [facility] 09-06-2024 10:17-0500 Body height 170.2 cm Autumn Valencia PA Work Phone: [facility] 09-06-2024 10:17-0500 Body mass index (BMI) [Ratio] 29.76 kg/m2 Autumn Valencia PA Work Phone: [facility] 09-06-2024 10:17-0500 Body weight 86.18 kg Autumn Valencia PA Work Phone: [facility] 09-06-2024 10:17-0500 Diastolic blood pressure 74 mm[Hg] Autumn Valencia PA Work Phone: [facility] 09-06-2024 10:17-0500 Heart rate 66 /min Autumn Valencia PA Work Phone: [facility] 09-06-2024 10:17-0500 Respiratory rate 16 /min Autumn Valencia PA Work Phone: [facility] 09-06-2024 10:17-0500 SaO2% (BldA) [Mass fraction] 95 % Autumn Valencia PA Work Phone: [facility] 09-06-2024 10:17-0500 Systolic blood pressure 130 mm[Hg] Autumn Valencia PA Work Phone: [facility] 08-10-2024 09:10-0400 Body height 170.2 cm Sunny Phank DO Work Phone: [facility] 08-10-2024 09:10-0400 Body mass index (BMI) [Ratio] 30.07 kg/m2 Sunny Phank DO Work Phone: [facility] 08-10-2024 09:10-0400 Body weight 87.09 kg Sunny Phank DO Work Phone: [facility] 06-28-2024 15:12-0400 Body height 167.64 cm DO Benedicto Field Work Phone: [facility] 06-28-2024 15:12-0400 Body mass index (BMI) [Ratio] 30.2 kg/m2 DO Benedicto Field Work Phone: [facility] 06-28-2024 15:12-0400 Body weight 84.82 kg DO Benedicto Field Work Phone: [facility] 06-28-2024 15:12-0400 Diastolic blood pressure 61 mm[Hg] DO Benedicto Field Work Phone: [facility] 06-28-2024 15:12-0400 Heart rate 78 /min DO Benedicto Field Work Phone: [facility] 06-28-2024 15:12-0400 SaO2% (BldA) [Mass fraction] 98 % DO Benedicto Field Work Phone: [facility] 06-28-2024 15:12-0400 Systolic blood pressure 102 mm[Hg] DO Benedicto Field Work Phone: [facility] 06-18-2024 12:30-0400 Body height 172.7 cm Tom Field DO Work Phone: [facility] 06-18-2024 12:30-0400 Body mass index (BMI) [Ratio] 28.74 kg/m2 Tom Field DO Work Phone: [facility] 06-18-2024 12:30-0400 Body temperature 97.39 [degF] Tom Field DO Work Phone: [facility] 06-18-2024 12:30-0400 Body weight 85.73 kg Tom Field DO Work Phone: [facility] 06-18-2024 12:30-0400 Diastolic blood pressure 62 mm[Hg] Tom Graffan DO Work Phone: [facility] 06-18-2024 12:30-0400 Heart rate 60 /min Tom Field DO Work Phone: [facility] 06-18-2024 12:30-0400 SaO2% (BldA) [Mass fraction] 100 % Tom Field DO Work Phone: [facility] 06-18-2024 12:30-0400 Systolic blood pressure 118 mm[Hg] Tom Field DO Work Phone: [facility] 06-15-2024 11:24-0400 Body height 170.18 cm DO Benedicto Field Work Phone: [facility] 06-15-2024 11:24-0400 Body mass index (BMI) [Ratio] 30.4 kg/m2 DO Benedicto Field Work Phone: [facility] 06-15-2024 11:24-0400 Body weight 87.99 kg DO Benedicto Field Work Phone: [facility] 06-15-2024 11:24-0400 Diastolic blood pressure 62 mm[Hg] DO Benedicto Field Work Phone: [facility] 06-15-2024 11:24-0400 Heart rate 61 /min DO Benedicto Field Work Phone: [facility] 06-15-2024 11:24-0400 Respiratory rate 18 /min DO Benedicto Field Work Phone: [facility] 06-15-2024 11:24-0400 SaO2% (BldA) [Mass fraction] 98 % DO Benedicto Field Work Phone: [facility] 06-15-2024 11:24-0400 Systolic blood pressure 120 mm[Hg] DO Benedicto Field Work Phone: [facility] 06-15-2024 08:34-0400 Body height 172.7 cm Fer García NUMERICAL CONTROL NESTING OPERATOR Work Phone: [facility] 06-15-2024 08:34-0400 Body mass index (BMI) [Ratio] 29.5 kg/m2 Fer García NUMERICAL CONTROL NESTING OPERATOR Work Phone: [facility] 06-15-2024 08:34-0400 Body weight 88 kg Fer García NUMERICAL CONTROL NESTING OPERATOR Work Phone: [facility] 06-15-2024 08:34-0400 Diastolic blood pressure 60 mm[Hg] Fer García NUMERICAL CONTROL NESTING OPERATOR Work Phone: [facility] 06-15-2024 08:34-0400 Heart rate 75 /min Fer García NUMERICAL CONTROL NESTING OPERATOR Work Phone: [facility] 06-15-2024 08:34-0400 Systolic blood pressure 126 mm[Hg] Fer García NUMERICAL CONTROL NESTING OPERATOR Work Phone: [facility] 06-07-2024 10:03-0400 Body height 172.7 cm Tom Field DO Work Phone: [facility] 06-07-2024 10:03-0400 Body mass index (BMI) [Ratio] 29.32 kg/m2 Tom Field DO Work Phone: [facility] 06-07-2024 10:03-0400 Body temperature 97.3 [degF] Tom Field DO Work Phone: [facility] 06-07-2024 10:03-0400 Body weight 87.45 kg Tom Field DO Work Phone: [facility] 06-07-2024 10:03-0400 Diastolic blood pressure 62 mm[Hg] Tom Field DO Work Phone: [facility] 06-07-2024 10:03-0400 Heart rate 61 /min Tom Field DO Work Phone: [facility] 06-07-2024 10:03-0400 SaO2% (BldA) [Mass fraction] 97 % Tom Field DO Work Phone: [facility] 06-07-2024 10:03-0400 Systolic blood pressure 118 mm[Hg] Tom Field DO Work Phone: [facility] 06-01-2024 10:44-0400 Body height 167.64 cm DO Benedicto Field Work Phone: [facility] 06-01-2024 10:44-0400 Body mass index (BMI) [Ratio] 31.4 kg/m2 DO Benedicto Field Work Phone: [facility] 06-01-2024 10:44-0400 Body temperature 97.8 [degF] DO Benedicto Field Work Phone: [facility] 06-01-2024 10:44-0400 Body weight 88.45 kg DO Benedicto Field Work Phone: [facility] 06-01-2024 10:44-0400 Diastolic blood pressure 76 mm[Hg] DO Benedicto Field Work Phone: [facility] 06-01-2024 10:44-0400 Heart rate 68 /min DO Benedicto Field Work Phone: [facility] 06-01-2024 10:44-0400 Respiratory rate 16 /min DO Benedicto Field Work Phone: [facility] 06-01-2024 10:44-0400 SaO2% (BldA) [Mass fraction] 98 % DO Benedicto Field Work Phone: [facility] 06-01-2024 10:44-0400 Systolic blood pressure 122 mm[Hg] DO Benedicto Field Work Phone: [facility] 02-09-2024 10:28-0400 Diastolic blood pressure 62 mm[Hg] DO Benedicto Field Work Phone: [facility] 02-09-2024 10:28-0400 Heart rate 62 /min DO Benedicto Field Work Phone: [facility] 02-09-2024 10:28-0400 Respiratory rate 18 /min DO Benedicto Field Work Phone: [facility] 02-09-2024 10:28-0400 SaO2% (BldA) [Mass fraction] 98 % DO Benedicto Field Work Phone: [facility] 02-09-2024 10:28-0400 Systolic blood pressure 120 mm[Hg] DO Benedicto Field Work Phone: [facility] 02-09-2024 07:44-0400 Body height 172.72 cm DO Benedicto Field Work Phone: [facility] 02-09-2024 07:44-0400 Body weight 87.09 kg DO Benedicto Field Work Phone: [facility] 07-02-2023 14:00-0400 Body height 172.72 cm Lili Gonsales Other [employer] [facility] [employer] Other 07-02-2023 14:00-0400 Body mass index (BMI) [Ratio] 31.17 kg/m2 Lili Gonsales Other [employer] Other 07-02-2023 14:00-0400 Body weight 92.99 kg Lili Gonsales Other [employer] Other 07-02-2023 14:00-0400 Diastolic blood pressure 56 mm[Hg] Lili Gonsales Other [employer] Other 07-02-2023 14:00-0400 SaO2% (BldA) [Mass fraction] 61 % Lili Gonsales Other [employer] Other 07-02-2023 14:00-0400 Systolic blood pressure 137 mm[Hg] Lili Gonsales Other [employer] Other 05-27-2022 10:03-0400 Body height 172.72 cm Ashlee Henry Work Phone: [facility] Work Phone: 05-27-2022 10:03-0400 Body mass index (BMI) [Ratio] 31.78 kg/m2 Ashlee Henry Work Phone: [employer] [facility] Work Phone: 05-27-2022 10:03-0400 Body surface area Derived from formula 2.08 m2 Ashlee Thorne Kodz Work Phone: [employer] [facility] Work Phone: 05-27-2022 10:03-0400 Body temperature 96.4 [degF] Ashlee Thorne Kodtarah Work Phone: [employer] [facility] Work Phone: 05-27-2022 10:03-0400 Body weight 94.8 kg Ashlee Thorne Kodz Work Phone: [employer] [facility] Work Phone: 05-27-2022 10:03-0400 Diastolic blood pressure 62 mm[Hg] Ashlee Thorne Kodz Work Phone: [employer] [facility] Work Phone: 05-27-2022 10:03-0400 Heart rate 70 /min Ashlee Thorne Kodtarah Work Phone: [employer] [facility] Work Phone: 05-27-2022 10:03-0400 SaO2% (BldA) [Mass fraction] 98 % Ashlee Thorne Kodz Work Phone: [employer] [facility] Work Phone: 05-27-2022 10:03-0400 Systolic blood pressure 140 mm[Hg] Ashlee C Kodz Work Phone: [employer] [facility] Work Phone: Encounters Encounter Date Encounter Type Care Provider Facility Start: 11-22-2024 End: 11-22-2024 ambulatory TOM FIELD Not Available Start: 10-25-2024 End: 10-25-2024 Bamboo flowsheet Tom Field DO Work Phone: [facility] 230 Start: 10-25-2024 End: 10-25-2024 Bamboo flowsheet Tom Field DO Work Phone: [facility] 230 Start: 10-25-2024 End: 10-25-2024 Office outpatient visit 25 minutes Tom Field DO Work Phone: [facility] 230 Comment on above: 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, unspecified vessel or lesion type, unspecified whether qawalangin or transplanted heart (CMS/HCC) (Primary Dx); Type 2 diabetes mellitus with diabetic chronic kidney disease ([facility]/HCC); Chronic kidney disease, stage 3b (HCC) ([facility]/HCC); Sick sinus syndrome ([facility]/HCC); Hypertensive heart disease with heart failure ([facility]/HCC); Hypertension, unspecified type ([facility]/HCC); Mixed hyperlipidemia ([facility]/HCC); Stage 3a chronic kidney disease (HCC) ([facility]); Type 2 diabetes mellitus with hyperglycemia, without long-term current use of insulin ([facility]); Raynaud's disease without gangrene Start: 10-25-2024 End: 10-25-2024 ambulatory TOM FIELD Not Available Start: 10-21-2024 End: 10-21-2024 Refill Frankie Cordon LPN Work Phone: [facility] 230 Comment on above: Myalgia Start: 10-08-2024 End: 10-08-2024 ambulatory Tom Conde Facility:[facility] Start: 10-05-2024 End: 10-05-2024 Bamboo flowsheet Sunny [...] Start: 10-04-2024 End: 10-04-2024 ambulatory Tom Conde Facility:[facility] Start: 09-29-2024 End: 09-29-2024 Bamboo flowsheet Sarah Connell DPM Work Phone: [facility] Start: 09-29-2024 End: 09-29-2024 Bamboo flowsheet Sarah Connell DPM Work Phone: [facility] Start: 09-29-2024 End: 09-29-2024 Patient encounter procedure Sarah Connell DPM Work Phone: [facility] Comment on above: Onychomycosis (Prima ry Dx); Type II diabetes mellitus with neurological manifestations (CMS/HCC); Pain in both feet Start: 09-29-2024 End: 09-29-2024 ambulatory SARAH CONNELL Not Available Start: 09-27-2024 End: 09-27-2024 ambulatory SUNNY Yusuf PEDRO Not Available Start: 09-27-2024 End: 09-27-2024 Patient encounter procedure Sunny Yusuf Chandlernannettelupe DO Work Phone: [facility] Comment on above: LOPEZ (obstructive sle ep apnea) (Primary Dx) Start: 09-23-2024 End: 09-23-2024 Telephone encounter Dwight Anand MA [facility] Start: 09-16-2024 End: 09-16-2024 ambulatory Robert Lockett Facility:[facility] Start: 09-06-2024 End: 09-06-2024 Bamboo flowsheet Autumn [...] Refill Tom Field DO Work Phone: [facility] 230 Comment on above: Myalgia Onychomycosis Start: 08-23-2024 End: 08-23-2024 Telephone encounter Tom Talley Myraleighton DO Work Phone: [facility] 230 Start: 08-10-2024 End: 08-10-2024 Office outpatient new 45 minutes Sunny Vasquez DO Work Phone: [facility] Comment on above: Obstructive sleep ap lauri (Primary Dx); Intolerance of continuous positive airway pressure (CPAP) ventilation Start: 08-10-2024 End: 08-10-2024 ambulatory SUNNY VASQUEZ Not Available Start: 07-18-2024 End: 07-19-2024 Refill Tom Talley Myraleighton DO Work Phone: [facility] 230 Comment on above: Myalgia Start: 07-07-2024 End: 07-07-2024 Patient encounter procedure DO Benedicto Field Work Phone: [facility] Start: 07-07-2024 End: 07-07-2024 ambulatory DO Benedicto Field Work Phone: [facility] Work Phone: Start: 06-30-2024 End: 06-30-2024 ambulatory GISELLE GANDARA MD Facility:[id number] Start: 06-30-2024 End: 06-30-2024 Patient encounter procedure Sarah NOGUERAM Work Phone: [facility] Comment on above: Onychomycosis (Prima ry Dx); Type II diabetes mellitus with neurological manifestations (CMS/HCC) Start: 06-30-2024 End: 06-30-2024 ambulatory SARAH H ANKIT Not Available Start: 06-28-2024 End: 06-28-2024 ambulatory DO Benedicto Field Work Phone: [facility] Work Phone: Start: 06-28-2024 End: 06-28-2024 Patient encounter procedure DO Benedicto Field Work Phone: [facility] Work Phone: Start: 06-27-2024 End: 06-27-2024 ambulatory Valentino FIELD DO Facility:[facility] Start: 06-18-2024 End: 06-18-2024 Bamboo flowsheet Tom Field DO Work Phone: [facility] 230 Start: 06-18-2024 End: 06-18-2024 Bamboo flowsheet Tom Feild DO Work Phone: [facility] 230 Start: 06-18-2024 End: 06-18-2024 Office outpatient visit 25 minutes Tom Rodriguezleighton DO Work Phone: [facility] 230 Comment on above: 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, unspecified vessel or lesion type, unspecified whether qawalangin or transplanted heart ([facility]/HCC) (Primary Dx); Type 2 diabetes mellitus without complication, with long-term current use of insulin ([facility]); Diabetic nephropathy associated with type 2 diabetes mellitus (HCC) ([facility]); Mixed hyperlipidemia ([facility]/HCC); Hypertension, unspecified type ([facility]/HCC); Hypothyroidism, unspecified type ([facility]/HCC) Start: 06-18-2024 End: 06-18-2024 ambulatory TOM FIELD Not Available Start: 06-15-2024 End: 06-15-2024 Bamboo flowsheet Fer García NUMERICAL CONTROL NESTING OPERATOR Work Phone: [facility] [employer] [address] Start: 06-15-2024 End: 06-15-2024 Bamboo flowsheet Fer García NUMERICAL CONTROL NESTING OPERATOR Work Phone: [facility] [place] [address] Start: 06-15-2024 End: 06-16-2024 Orders Only Tom Mayank Field DO Work Phone: [facility] External Department Unsolicited Start: 06-15-2024 End: 06-15-2024 ambulatory DO Benedicto Field Work Phone: [facility] Work Phone: Start: 06-15-2024 End: 06-15-2024 Patient encounter procedure DO Benedicto Field Work Phone: [facility] Card[facility] Work Phone: Start: 06-15-2024 End: 06-15-2024 Office outpatient visit 25 minutes Fer García NUMERICAL CONTROL NESTING OPERATOR Work Phone: [facility] Comment on above: 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) (Primary Dx) Start: 06-15-2024 End: 06-15-2024 ambulatory FER GARCÍA Not Available Start: 06-07-2024 End: 06-07-2024 Office outpatient visit 25 minutes Tom Field DO Work Phone: [facility] 230 Comment on above: 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) (Primary Dx); Peripheral vascular disease (CMS/HCC); Hypertension, unspecified type (CMS/HCC); Hypothyroidism, unspecified type (CMS/HCC); Stage 3a chronic kidney disease (HCC) (CMS/HCC); 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, unspecified vessel or lesion type, unspecified whether qawalangin or transplanted heart (CMS/HCC); Type 2 diabetes mellitus with hyperglycemia, without long-term current use of insulin (CMS/HCC); Myalgia Start: 06-07-2024 End: 06-07-2024 ambulatory TOM FIELD Not Available Start: 06-01-2024 End: 06-01-2024 ambulatory DO Benedicto Field Work Phone: [facility] Work Phone: Start: 06-01-2024 End: 06-01-2024 Patient encounter procedure DO Benedicto Rodriguezsarinafelix Work Phone: [facility] Vascular Surgery Work Phone: Start: 04-13-2024 [...] 02-25-2024 End: 02-26-2024 ambulatory Benedicto Roberto Rashida Facility:[facility] Start: 02-17-2024 End: 02-17-2024 ambulatory TOM RODRIGUEZLEIGHTON Not Available Start: 02-13-2024 End: 02-13-2024 ambulatory SARA Talley DIANA Not Available Start: 02-09-2024 Non-patient / Non-visit DO Benedicto Rodriguezsarinafelix Work Phone: [facility] Work Phone: Start: 02-09-2024 End: 02-09-2024 Admission to same day surgery center DO Benedicto Rodriguezsarinafelix Work Phone: [facility] Work Phone: Start: 02-09-2024 End: 02-09-2024 ambulatory DO Benedicto Rodriguezsarinafelix Work Phone: [facility] Work Phone: Start: 02-02-2024 End: 02-02-2024 ambulatory TOM RODRIGUEZLEIGHTON Not Available Start: 12-04-2023 End: 12-04-2023 ambulatory SARAH CONNELL Not Available Start: 10-01-2023 End: 10-01-2023 ambulatory DO Benedicto Rodriguezleighton Work Phone: [facility] Work Phone: Start: 10-01-2023 End: 10-01-2023 Patient encounter procedure DO Benedicto Field Work Phone: [facility] Work Phone: Start: 07-02-2023 Office outpatient ne w 45 minutes Lili [facility] Start: 07-02-2023 End: 07-02-2023 ambulatory DO Benedicto Field Work Phone: [facility] Work Phone: Start: 07-02-2023 End: 07-02-2023 Patient encounter procedure DO Benedicto Field Work Phone: [facility] Work Phone: Start: 03-13-2023 ambulatory DEANNA FAUST . Facili ty:[facility]1 Start: 02-25-2023 End: 02-25-2023 ambulatory NARENDRANATH LAKSHMIPATHY . Facility:[facility] Start: 02-06-2023 End: 02-07-2023 ambulatory NARENDRANATH LAKSHMIPATHY . Facility:[facility] Start: 01-28-2023 End: 01-29-2023 ambulatory TOM FIELD Facility:[facility] Start: 01-09-2023 End: 01-10-2023 ambulatory NARENDRANATH LAKSHMIPATHY . Facility:[facility] Start: 01-02-2023 ambulatory DIAMANTE SPAULDING . Facility:[facility] 1 Start: 12-19-2022 End: 12-20-[address] SADIE PERRY . Facility:[facility] Start: 12-14-2022 Rx Renewal Ashlee Henry Work Phone: [facility] Work Phone: Start: 12-02-2022 End: 12-03-2022 ambulatory Valentino FIELD DO Facility:[id number] Start: 12-02-2022 End: 12-03-2022 ambulatory Valentino RODRIGUEZLEIGHTON DO Facility:[id number] Start: 11-12-2022 End: 11-13-[address] SADIE PERRY . Facility:[facility] Start: 10-24-[address] SADIE PERRY . Faci lity:[facility]1 Start: 10-24-2022 Rx Renewal Ashlee C Kodz Work Phone: [facility] Work Phone: Start: 10-21-2022 ambulatory Poli Dangelo Kruger Facil [id number] Start: 10-18-2022 Rx Renewal Potter C Kodz Work Phone: [facility] Work Phone: Start: 10-01-2022 End: 10-01-[address] SADIE PERRY . Facility:[facility]1 Start: 09-03-2022 End: 09-04-[address] SADIE PERRY . Facility:[facility] Start: 08-04-2022 Rx Renewal Potter C Kodz Work Phone: [facility] Work Phone: Start: 05-29-2022 AUDIT Potter C Kodz Work Phone: [facility] Work Phone: Start: 05-27-2022 Office outpatient vi sit 25 minutes Ashlee C Kodz Work Phone: -[facility] Work Phone: Start: 05-27-2022 ambulatory Poli Dangelo Kruger Facil [id number] Start: 05-23-2022 End: 05-24-[address] SADIE PERRY . Facility:[facility]1 Start: 05-10-2022 Rx Renewal Ashlee C Kodz Work Phone: [facility] Work Phone: Start: 03-04-2022 Telephone encounter Ashlee C Ko dz Work Phone: [facility] Work Phone: Start: 02-28-2022 End: 03-01-[address] SADIE PERRY . Facility: Start: 12-18-2021 Rx Renewal Potter C Kodz Work Phone: [employer] [facility] Work Phone: Start: 10-06-2021 Rx Renewal Potter C Kodz Work Phone: [employer] [facility] Work Phone: Start: 09-26-2021 AUDIT Potter C Kodz Work Phone: [employer] [facility] Work Phone: Start: 09-10-2021 AUDIT Ashlee C Kodz Work Phone: [employer] [facility] Work Phone: Start: 09-06-2021 Rx Renewal Ashlee C Kodz Work Phone: [facility] [facility] Work Phone: Start: 09-05-2021 Office outpatient vi sit 15 minutes Potter C Kodz Work Phone: [facility] [facility] Work Phone: Start: 09-05-2021 Patient encounter procedure Ashlee C Kodz Work Phone: [employer] [facility] Work Phone: Start: 08-12-2021 Rx Renewal Ashlee C Kodz Work Phone: [employer] [facility] Work Phone: Start: 03-09-2021 Rx Renewal Potter C Kodz Work Phone: [employer] [facility] Work Phone: Start: 02-23-2020 Patient encounter procedure Poli Mercado MD [employer] [facility] Work Phone: Start: 08-25-2019 Patient encounter procedure Poli Mercado MD [employer] [facility] Work Phone: Start: 04-07-2019 Patient encounter procedure Poli Mercado MD -[facility] Work Phone: Procedures Date Procedure Procedure Detail Performing Clinician Start: 06-15-2024 Complete blood count with white cell differential, automated Tom Field DO Work Phone: Start: 06-15-2024 Comprehensive metabo lic panel Tom Field DO Work Phone: Start: 06-15-2024 Lipid panel [...] 04-23-2026 Glaucoma screening Diabetes: R etinopathy Screening [facility] Start: 10-19-2025 Urine screening for protein Diabetes: Urine Protein Screening [facility] Start: 06-15-2025 Urine screening for protein Diabetes: Urine Protein Screening [facility] Start: 03-26-2025 Urine screening for protein Diabetes: Urine Protein Screening [facility] Start: 03-01-2025 End: 03-01-2025 Patient encounter procedure 03/01/2025 9:00 AM EDT Office Visit [facility] [address] [place] [address] Tom Field DO [address] [place] [address] [facility] Start: 02-22-2025 End: [...] unspecified vessel or lesion type, unspecified whether qawalangin or transplanted heart (CMS/HCC) Hypertension, unspecified type (CMS/HCC) Mixed hyperlipidemia (CMS/HCC) Stage 3a chronic kidney disease (HCC) (CMS/HCC) Type 2 diabetes mellitus with hyperglycemia, without long-term current use of insulin (CMS/HCC) Raynaud's disease without gangrene Expected: 02/22/2025 (Approximate), Expires: 10/25/2025 [facility] Comment on above: Expected: 02/22/2025 (Approximate), [...] unspecified vessel or lesion type, unspecified whether qawalangin or transplanted heart (CMS/HCC) Hypertension, unspecified type (CMS/HCC) Mixed hyperlipidemia (CMS/HCC) Stage 3a chronic kidney disease (HCC) (CMS/HCC) Type 2 diabetes mellitus with hyperglycemia, without long-term current use of insulin (CMS/HCC) Raynaud's disease without gangrene Expected: 02/22/2025 (Approximate), Expires: 10/25/2025 [facility] Comment on above: Expected: 02/22/2025 (Approximate), Expires: 10/25/2025 Start: 02-22-2025 End: 10-25-2025 Hemoglobin A1c/Hemoglobin.total in Blood Hemoglobin A1c Lab Routine 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/HCC) Expected: 02/22/2025 (Approximate), Expires: 10/25/2025 [facility] Comment on above: Expected: 02/22/2025 (Approximate), Expires: 10/25/2025 Start: 02-22-2025 End: 10-25-2025 Lipid 1996 panel - Serum or Plasma Lipid panel Lab Routine 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, unspecified vessel or lesion type, unspecified whether qawalangin or transplanted heart ([facility]/HCC) Hypertension, unspecified type ([facility]/HCC) Expected: 02/22/2025 (Approximate), Expires: 10/25/2025 [facility] Comment on above: Expected: 02/22/2025 (Approximate), Expires: 10/25/2025 Start: 02-22-2025 End: 10-25-2025 Microalbumin/Creatinine panel in random Urine Microalbumin / creatinine urine ratio Lab Routine Type 2 diabetes mellitus with diabetic chronic kidney disease ([facility]) Expected: 02/22/2025 (Approximate), Expires: 10/25/2025 [facility] Work Phone: Comment on above: Expected: 02/22/2025 (Approximate), Expires: 10/25/2025 Start: 01-18-2025 End: 01-18-2025 Patient encounter procedure 01/18/2025 11:30 AM EDT Procedure Visit [facility] [address] [place] [id number] Sarah Connell DPM [address] [place] [address] [facility] Start: 01-17-2025 Hemoglobin A1c measurement Diabetes: Hemoglobin A1C [facility] Start: 12-29-2024 End: 12-29-2024 Patient encounter procedure [facility] [place] [address] Start: 11-01-2024 End: 11-01-2024 Patient encounter procedure 11/01/2024 8:40 AM EST Office Visit [facility] [place] [address] [place] [id number] Fer García, WILL [address] [place] [address] [facility] Start: 10-25-2024 End: 10-25-2024 Patient encounter procedure [facility] Comment on above: Type 2 diabetes li itus with diabetic chronic kidney disease ([facility]/HCC); Chronic kidney disease, stage 3b (HCC) (CMS/HCC); Sick sinus syndrome (CMS/HCC); Hypertensive heart disease with heart failure (CMS/HCC) Start: 10-18-2024 End: 06-18-2025 CBC W Auto Differential panel - Blood CBC and differential Lab Routine Mixed hyperlipidemia (CMS/HCC) Hypertension, unspecified type (CMS/HCC) Hypothyroidism, unspecified type (CMS/HCC) Expected: 10/18/2024 (Approximate), Expires: 06/18/2025 [facility] Comment on above: Expected: 10/18/2024 (Approximate), Expires: 06/18/2025 Start: 10-18-2024 End: 06-18-2025 Comprehensive metabolic 2000 panel - Serum or Plasma Comprehensive metabolic panel Lab Routine 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, unspecified vessel or lesion type, unspecified whether qawalangin or transplanted heart ([facility]/HCC) Type 2 diabetes mellitus without complication, with long-term current use of insulin ([facility]) Diabetic nephropathy associated with type 2 diabetes mellitus (HCC) ([facility]/HCC) Expected: 10/18/2024 (Approximate), Expires: 06/18/2025 [facility] Comment on above: Expected: 10/18/2024 (Approximate), Expires: 06/18/2025 Start: 10-18-2024 End: 06-18-2025 Hemoglobin A1c/Hemoglobin.total in Blood Hemoglobin A1c Lab Routine Type 2 diabetes mellitus without complication, with long-term current use of insulin ([facility]/HCC) Expected: 10/18/2024 (Approximate), Expires: 06/18/2025 [facility] Comment on above: Expected: 10/18/2024 (Approximate), Expires: 06/18/2025 Start: 10-18-2024 End: 06-18-2025 Microalbumin/Creatinine panel in random Urine Microalbumin / creatinine urine ratio Lab Routine 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, unspecified vessel or lesion type, unspecified whether qawalangin or transplanted heart ([facility]/HCC) Type 2 diabetes mellitus without complication, with long-term current use of insulin ([facility]) Diabetic nephropathy associated with type 2 diabetes mellitus (HCC) ([facility]/HCC) Hypertension, unspecified type ([facility]/HCC) Expected: 10/18/2024 (Approximate), Expires: 06/18/2025 [facility] Work Phone: Comment on above: Expected: 10/18/2024 (Approximate), Expires: 06/18/2025 Start: 10-05-2024 End: 10-05-2024 Patient encounter procedure [facility] [place] Comment on above: Arrived Start: 09-29-2024 End: 09-29-2024 Patient encounter procedure [facility] Comment on above: Arrived Start: 09-27-2024 End: 09-27-2024 Patient encounter procedure 09/27/2024 10:20 AM EST Office Visit [facility] [address] [place] [address] Tom Field, DO [address] [place] [address] [facility] [address] Start: 09-14-2024 Hemoglobin A1c measurement Diabetes: Hemoglobin A1C [facility] Start: 09-07-2024 End: 09-07-2024 Patient encounter procedure 09/07/2024 10:00 AM EST Office Visit [facility] [address] [place] [address] Fer García, NUMERICAL CONTROL NESTING OPERATOR [address] [place] [address] [facility] Start: 09-06-2024 End: 09-06-2024 Patient encounter procedure [facility] Comment on above: Arrived Start: 08-10-2024 End: 08-10-2024 Patient encounter procedure 08/10/2024 9:30 AM EDT Office Visit [facility] [place] [address] [place] [address] Sunny Vasquez, DO [address] [place] [address] [facility] [place] Start: 06-28-2024 End: 06-28-2024 Patient encounter procedure 06/28/2024 8:00 AM EDT Procedure Visit [facility] [address] [place] [phone] Sarah Connell DPM [address] [place] [address] [facility] Start: 06-18-2024 End: 06-18-2024 Patient encounter procedure 06/18/2024 12:20 PM EDT Office Visit [facility] [address] [place] [id number] Tom Field DO [address] [place] [address] Arrived [facility] [address] Comment on above: Arrived Start: 06-15-2024 End: 06-15-2024 Patient encounter procedure [facility] Comment on above: Arrived Start: 06-13-2024 Influenza vaccination Influenza Vacc ine (#1) [facility] Start: 06-01-2024 Ankle brachial press ure index [facility] Start: 05-03-2024 Hemoglobin A1c measurement Diabetes: Hemoglobin A1C [facility] Start: 02-09-2024 [facility] Start: 10-21-2022 FUV, Provider: Poli Mercado, Status: Pen, Time: 9:45 AM FUV, Provider: Poli Mercado, Status: Pen, Time: 9:45 AM [employer] [facility] Work Phone: Start: 05-27-2022 FUV, Provider: Poli Mercado, Status: Pen, Time: 11:00 AM FUV, Provider: Poli Mercado, Status: Pen, Time: 11:00 AM [employer] [facility] Work Phone: Start: 05-02-2022 FUV, Provider: Poli Mercado, Status: Pen, Time: 10:30 AM FUV, Provider: Poli Mercado, Status: Uziel, Time: 10:30 AM [facility] Work Phone: Start: 09-05-2021 FUV, Provider: Poli Mercado, Status: Uziel, Time: 10:00 AM FUV, Provider: Poli Mercado, Status: Uziel, Time: 10:00 AM [facility] Work Phone: Patient Education Colon polyps H emorrhoids (DC) Diverticulosis (DC) [facility] Work Phone: [facility] Immunizations Immunization Date Immunization Notes Care Provider Oscar leon 08-12-2024 Seasonal trivalent influenza vaccine, adjuvanted, preservative free Dwight Anand MA [facility] 06-22-2024 RSV, recombinant, protein subunit RSVpreF, adjuvant reconstitu, 120mcg/0.5mL, PF (Arexvy) Sunny Pedro DO Work Phone: [facility] 08-27-2023 Influenza, Seasonal, Quadrivalent, Adjuvanted Tom Field DO Work Phone: [facility] 08-27-2023 influenza virus vacc ine, unspecified formulation Tom Field DO Work Phone: [facility] 10-24-2022 Pneumococcal Conjuga te PCV 20 Tom Field DO Work Phone: [facility] 08-24-2022 Moderna Bivalent Conrad ster Vaccination [facility] Work Phone: [facility] 08-24-2022 Pfizer COVID-19 Vac Bivalent 30 MCG/0.3ML Intramuscular Suspension Ashlee Henry Work Phone: [facility] Work Phone: 07-22-2022 Influenza, High-dose Seasonal, Quadrivalent, Preservative Free Tom Field DO Work Phone: [facility] 07-18-2022 influenza, injectabl e, quadrivalent, contains preservative Ashlee C Kodz Work Phone: [facility] Work Phone: 01-24-2022 Moderna COVID-19 Vac cine 100 MCG/0.5ML Intramuscular Suspension Ashlee C Kodz Work Phone: [facility] Work Phone: 08-09-2021 Moderna COVID-19 Vac cine 100 MCG/0.5ML Intramuscular Suspension Potter C Kodz Work Phone: -[facility] Work Phone: 2021 Fluzone High-Dose Quadrivalent 0.7 ML Intramuscular Suspension Prefilled Syringe Potter C Kodz Work Phone: [facility] Work Phone: 2021 influenza, high dose seasonal, preservative-free Tom Field Work Phone: [facility] 12-05-2020 Moderna COVID-19 Vac cine 100 MCG/0.5ML Intramuscular Suspension Ashlee C Kodz Work Phone: [facility] Work Phone: 11-07-2020 Moderna COVID-19 Vac cine 100 MCG/0.5ML Intramuscular Suspension Potter C Kodz Work Phone: [facility] Work Phone: 10-04-2020 zoster vaccine recombinant Ashlee C Kodz Work Phone: -[facility] Work Phone: 08-04-2020 zoster vaccine recombinant Ashlee C Kodz Work Phone: -[facility] Work Phone: 2020 Fluad Quadrivalent 0 .5 ML Intramuscular Prefilled Syringe Ashlee C Kodz Work Phone: [facility] Work Phone: 07-28-2019 influenza, high dose seasonal, preservative-free Poli Mercado MD -[facility] Work Phone: Comment on above: Series: 07-28-2019 influenza, injectabl e, quadrivalent, preservative free Tom Kaftan DO Work Phone: [facility] 08-25-2018 pneumococcal polysaccharide vaccine, 23 valent Ashlee C Kodz Work Phone: [facility] 07-13-2018 influenza, high dose seasonal, preservative-free Potter C Kodz Work Phone: [facility] Work Phone: 07-13-2018 influenza, injectabl e, quadrivalent, preservative free Tom Kaftan DO Work Phone: [facility] 07-28-2017 influenza, high dose seasonal, preservative-free Ashlee C Kodz Work Phone: [facility] Work Phone: 07-28-2017 influenza, injectabl e, quadrivalent, preservative free Tom Kaftan DO Work Phone: [facility] 07-26-2015 influenza, high dose seasonal, preservative-free Ashlee C Kodz Work Phone: [facility] Work Phone: 07-26-2015 influenza, injectabl e, quadrivalent, preservative free Tom Kaftan DO Work Phone: [facility] 09-23-2014 tetanus toxoid, redu priyank diphtheria toxoid, and acellular pertussis vaccine, adsorbed Tom Kaftan DO Work Phone: [facility] 07-21-2014 influenza, high dose seasonal, preservative-free Poli Mercado MD [facility] Work Phone: Comment on above: Series: 11-04-2012 pneumococcal polysaccharide vaccine, 23 valent Poli Mercado MD [facility] Work Phone: Comment on above: Series: 10-09-2012 zoster vaccine, live Poli Mercado MD [facility] Work Phone: Comment on above: Series: Payers Date Payer Category Payer Self-pay [id number] 2022 Unknown 2008 Medicare 2008 Private Health Insurance 1959 Medicare [id number] 1959 Unknown [id number] 1945 Unknown [id number] 2.16.840.1.572495.3.579.2.356 1945 Unknown [id number] 2.16.840.1.606030.3.579.2.356 1945 Unknown [id number] 2.16.840.1.243938.3.579.2.159 1945 Unknown [id number] 2.16.840.1.576965.3.579.2.159 1945 Unknown [id number] 2.16.840.1.674261.3.579.2.718 1945 Unknown [id number] 2.16.840.1.838098.3.579.2.593 1945 Unknown [id number] 2.16.840.1.432947.3.579.2.593 1945 Unknown [id number] 2.16.840.1.051421.3.579.2.593 1945 Unknown [id number] 2.16.840.1.017797.3.579.2.593 1945 Unknown [id number] 2.16.840.1.329430.3.579.2.593 1945 Unknown [id number] 2.16.840.1.124240.3.579.2.593 1945 Unknown [id number] 2.16.840.1.944205.3.579.2.593 1945 Unknown [id number] 2.16.840.1.423356.3.579.2.593 1945 Unknown [id number] 2.16.840.1.655920.3.579.2.593 1945 Unknown [id number] 2.16.840.1.219875.3.579.2.593 1945 Unknown [id number] 2.16.840.1.557795.3.579.2.593 1945 Unknown [id number] 2.16.840.1.031208.3.579.2.593 1945 Unknown [id number] 2.16.840.1.656254.3.579.2.159 1945 Unknown [id number] 2.16.840.1.146478.3.579.2.159 1945 Unknown [id number] 2.16.840.1.541557.3.579.2.159 1945 Unknown [id number] 2.16.840.1.147636.3.579.2.125 9 1945 Unknown [id number] 2.16.840.1.253429.3.579.2.125 9 1945 Unknown [id number] 2.16.840.1.814070.3.579.2.125 9 1945 Unknown [id number] 2.16.840.1.736935.3.579.2.125 9 1945 Unknown [id number] 2.16.840.1.287246.3.579.2.125 9 1945 Unknown [id number] 2.16.840.1.546255.3.579.2.125 9 1945 Unknown [id number] 2.16.840.1.800901.3.579.2.125 9 1945 Unknown [id number] 2.16.840.1.833746.3.579.2.125 9 1945 Unknown [id number] 2.16.840.1.863701.3.579.2.125 9 1945 Unknown [id number] 2.16.840.1.401562.3.579.2.125 9 1945 Unknown [id number] 2.16.840.1.985423.3.579.2.125 9 1945 Unknown [id number] 2.16.840.1.758495.3.579.2.125 9 1945 Unknown [id number] 2.16.840.1.774580.3.579.2.125 9 1945 Unknown [id number] 2.16.840.1.045045.3.579.2.125 9 1945 Unknown [id number] 2.16.840.1.451878.3.579.2.125 9 1945 Unknown [id number] 2.16.840.1.113020.3.579.2.125 9 1945 Unknown [id number] 2.16.840.1.475331.3.579.2.125 9 1945 Unknown [id number] 2.16.840.1.792703.3.579.2.125 9 1945 Unknown [id number] 2.16.840.1.870903.3.579.2.125 9 1945 Unknown [id number] 2.16.840.1.109149.3.579.2.125 9 1945 Unknown [id number] 2.16.840.1.196461.3.579.2.125 9 Medicare Medicare Outpatient [id number] [id number] Unknown [id number] 2.16.840.1.644603.3.579.2.531 Unknown [id number] 2.16.840.1.411012.3.579.2.531 Unknown [id number] 2.16.840.1.557334.3.579.2.531 Unknown [id number] 2.16.840.1.611035.3.579.2.531 Unknown [id number] 2.16.840.1.030285.3.579.2.531 Unknown [id number] 2.16.840.1.103158.3.579.2.531 Unknown [id number] 2.16.840.1.475650.3.579.2.531 Unknown [id number] 2.16.840.1.382042.3.579.2.531 Social History Date Type Detail Facility Start: 03-17-2024 End: 03-25-2024 Never Drank Alcohol Never Drank Alcohol [facility] Comment on above: Quit 1987 (1PPD x 20 years); Start: 03-17-2024 End: 03-25-2024 Sex Assigned At [facility] Start: 06-04-2020 End: 06-15-2024 Tobacco smoking status RIIS Ex-smoker (finding) [facility] Start: 1945 Sex Assigned At Male F [facility] Start: 05-15-2023 Tobacco smoking stat us [facility] Never smoked tobacco [facility] Start: 05-15-2023 [...] to any clubs or organizations such as lutheran groups, unions, fraternal or athletic groups, or [...] [facility] NEGATED: Highlighted row - - [employer] [facility] Work Phone: Medical Equipment Procedure Code Equipment [...] Active Start: 02-23-2014 Use daily as directed [id number] Start: 02-02-2024 Goals Date Patient Goal Desired Activity /State Functional Status Date Assessment Result Facility NEGATED: Highlighted row Functional performance Functional status health issues are not documented Disease [employer] [facility] Work Phone: Mental Status Date Assessment Result Facility NEGATED: Highlighted row Cognitive function [Interpretation] Cognitive status health issues are not documented Disease [facility] Work Phone: Clinical Notes 02-28-2022 to 10-25-2024 [...] 2009; 2011 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 [employer] Tobacco Use: Low Risk (10/25/2024) Patient History [...] min Stress: No Stress Concern Present (03/25/2024) Citizen [place] [employer] - Occupational Stress Questionnaire Feeling of Stress : Not at all Recent Concern: Stress - Stress Concern Present (03/17/2024) Citizen [place] [employer] - Occupational Stress Questionnaire Feeling of Stress : To some extent Social Connections: Moderately Integrated (03/25/2024) Social Connection and Isolation Panel [NHANES] Frequency of Communication with Friends and Family: Three times a week Frequency of Social Gatherings with Friends and Family: Not on file Attends Christianity Services: More than 4 times per year [...] unspecified vessel or lesion type, unspecified whether qawalangin or transplanted heart ([facility]) Problem is stable, will continue with current treatment plan. Call or return to clinic if any changes occur - Lipid panel; Future - Comprehensive metabolic panel; Future - CBC and differential; Future Type 2 diabetes mellitus with diabetic chronic kidney disease ([facility]) Labs ordered today, will follow up when results available - Microalbumin / creatinine urine ratio; Future - Comprehensive metabolic panel; Future - CBC and differential; Future - Hemoglobin A1c; Future Chronic kidney disease, stage 3b (HCC) ([facility]) - Comprehensive metabolic panel; Future - CBC and differential; Future Sick sinus syndrome ([facility]) - Comprehensive metabolic panel; Future - CBC and differential; Future Hypertensive heart disease with heart failure ([facility]) Record Blood Pressures 2-4 times weekly and record. Return with readings at next appointment. Call with readings if sees significant changes - Comprehensive metabolic panel; Future - CBC and differential; Future Hypertension, unspecified type ([facility]) - Lipid panel; Future - Comprehensive metabolic panel; Future - CBC and differential; Future Mixed hyperlipidemia ([facility]) - Comprehensive metabolic panel; Future - CBC and differential; Future Stage 3a chronic kidney disease (HCC) ([facility]) Labs ordered today, will follow up when results available - Comprehensive metabolic panel; Future - CBC and differential; Future Type 2 diabetes mellitus with hyperglycemia, without long-term current use of insulin ([facility]) - Comprehensive metabolic panel; Future - CBC [...] time, Disp: , Rfl: omega-3, EPA+DHA, ([place]-3) 1000 MG capsule, 1 capsule, Disp: , Rfl: terbinafine (LamISIL) 250 MG tablet, TAKE 1 TABLET BY MOUTH EVERY DAY, Disp: 90 tablet, Rfl: 0 traMADol (Ultram) 50 MG tablet, Take 1 tablet (50 mg) by mouth every 8 (eight) hours if needed for severe pain, Disp: 30 tablet, Rfl: 0 documented in this encounter [facility] 10-05-2024 History of Present illness Narrative [...] Continuous Glucose Sensor (FreeStyle Lillian [address]) [facility], 1 Units every 14 (fourteen) days, Disp: 2 each, Rfl: 11 insulin glargine (Lantus SoloStar) 100 UNIT/ML pen, INJECT 10 UNITS UNDER THE SKIN EVERY DAY AT BEDTIME, Disp: 15 mL, Rfl: 3 insulin pen needle (B-D UF III MINI PEN NEEDLES) 31G x [address] [facility], Use daily as directed, Disp: 100 each, [...] time, Disp: , Rfl: omega-3, EPA+DHA, ([place]-3) 1000 MG capsule, 1 capsule, Disp: , [...] min Stress: No Stress Concern Present (03/25/2024) Citizen [place] [employer] - Occupational Stress Questionnaire Feeling of Stress : Not at all Recent Concern: Stress - Stress Concern Present (03/17/2024) Citizen [place] [employer] - Occupational Stress Questionnaire Feeling of Stress : To some extent Social Connections: Moderately Integrated (03/25/2024) Social Connection and Isolation Panel [NHANES] Frequency of Communication with Friends and Family: Three times a week Frequency of Social Gatherings with Friends and Family: Not on file Attends Christianity Services: More than 4 times per year [...] once it is. documented in this encounter [facility] 09-29-2024 History of Present illness Narrative [...] if problems arise. documented in this encounter [facility] 09-27-2024 History of Present illness Narrative mmm mmm documented in this encounter [facility] 09-23-2024 Telephone encounter Note [facility] calls to state that they've set up pt for PT once weekly for the next 9 weeks. [facility] 09-23-2024 Miscellaneous Notes Robert Her[facility] calls to state that they've set up pt for PT once weekly for the next 9 weeks. documented in this encounter [facility] 09-06-2024 History of Present illness Narrative [...] Medication Documentation Review Audit Reviewed by Marcia Self MA (Ice Rink Attendant) on 09/06/24 at 1026 Medication Order Taking? Sig Documenting Provider Last Dose Status acetaminophen (Tylenol) 500 MG tablet [id number] No Take 1,000 mg by mouth Daily Taking Active amLODIPine (Norvasc) 10 MG tablet [id number] No 1 (one) time each day at the same time. Historical Provider, Taking Active aspirin 81 MG EC tablet [id number] Take 1 tablet (81 mg) by mouth Daily Tom Field DO Active atorvastatin (Lipitor) 20 MG tablet [id number] TAKE 1 TABLET BY MOUTH EVERYDAY AT THE SAME TIME Tom Field DO Active carbidopa-levodopa (Sinemet) 25-100 MG tablet [id number] TAKE 1 TABLET BY MOUTH AT 8AM, NOON, 3PM AND 6PM Fer García NP Active Continuous Glucose Sensor (FreeStyle Lillian [address]) [facility] [id number] No 1 Units every 14 (fourteen) days Tom Field DO Taking Active Continuous Glucose Sensor (FreeStyle Lillian 2 Sensor) mis [id number] 1 Units every 14 (fourteen) days Tom Field DO Active insulin glargine (Lantus SoloStar) 100 UNIT/ML pen [id number] No INJECT 10 UNITS UNDER THE SKIN EVERY DAY AT BEDTIME Tom Field DO Taking Active insulin pen needle (B-D UF III MINI PEN NEEDLES) 31G x 5 mm misc [id number] No Use daily as directed Tom Field DO Taking Active lisinopril 5 MG tablet [id number] No Take 1 tablet (5 mg) by mouth Daily Tom Field DO Taking Active metFORMIN XR (Glucophage-XR) 500 MG 24 hr tablet [id number] Take 2 tablets (1,000 mg) by mouth in the morning and 2 tablets (1,000 mg) before bedtime. Do not crush, chew, or split.. Tom Field DO Active metoprolol succinate XL (Toprol-XL) 25 MG 24 hr tablet [id number] No Take 1 tablet by mouth 1 (one) time each day. Historical Provider, Taking Active mirabegron ER (Myrbetriq) 50 MG 24 hr tablet [id number] No Take 50 mg by mouth 1 (one) time each day at the same time Taking Active Misc. Devices (Rollator Ultra-Light) [facility] [id number] No 1 rollator with seat for every day use Tom Field DO Taking Active omega-3, EPA+DHA, ([place]-3) 1000 MG capsule [id number] No 1 capsule Tom Field DO Taking Active terbinafine (LamISIL) 250 MG tablet [id number] TAKE 1 TABLET BY MOUTH EVERY DAY Sarah Connell DPM Active traMADol (Ultram) 50 MG tablet [id number] Take 1 tablet (50 mg) by mouth [...] not wake feeling rested -currently working on [employer] ROS Review of Systems Constitutional: Positive for [...] triceps, wrist extensors, wrist extensors, wrist flexor, measurement operator strength 5/5. LUE Strength deltoid, biceps, triceps, wrist extensors, wrist extensors, wrist flexor, measurement operator strength 5/5. RLE Strength illopsoas, quadriceps, tibialis [...] - 79-year-old male who was seen at [facility] on 02/25/2024 with altered mental status and [...] after his hospitalization and was evaluated at [facility] with nonacute CT head and cervical spine [...] wear. He followed with Dr Gonsales at [facility]. His will call to schedule an appointment to discuss alternative therapies and/or mask. He is working towards Insp[employer] device. We discussed the affects and risks associated with untreated LOPEZ Evaluation at [facility] in February [address] scan of [...] sooner if needed documented in this encounter [facility] 08-26-2024 Telephone encounter Note Patient's recent lab work in June was normal for LFTs. He can continue with the Lamisil. Rx was sent. [facility] 08-26-2024 Miscellaneous Notes Patient's recent lab work in June was normal for LFTs. He can continue with the Lamisil. Rx was sent. documented in this encounter [facility] 08-23-2024 Telephone encounter Note Rescheduled appt for after labs are completed. [facility] 08-23-2024 Miscellaneous Notes Rescheduled appt for after labs are completed. Pt's spouse called and wanted to make sure the labs ordered are active and can be done prior to appointment on 09/27. I told her yes they were active. She would like someone to call her to confirm this. documented in this encounter [facility] 08-23-2024 Telephone encounter Note Pt's spouse called and wanted to make sure the labs ordered are active and can be done prior to appointment on 09/27. I told her yes they were active. She would like someone to call her to confirm this. [facility] 08-10-2024 History of Present illness Narrative Allergies as of 08/10/2024 - Reviewed 06/30/2024 Allergen Reaction Noted Lactose 03/01/2024 Past Medical History: Diagnosis Date Diabetes ([facility]) Heart attack (CMS/HCC) Hypercholesteremia (CMS/HCC) Hypertension (CMS/HCC) [...] 1 each, Rfl: 0 omega-3, EPA+DHA, ([place]-3) 1000 MG capsule, 1 capsule, Disp: , [...] min Stress: No Stress Concern Present (03/25/2024) Citizen [place] of Occupational Health - Occupational Stress Questionnaire Feeling of Stress : Not at all Recent Concern: Stress - Stress Concern Present (03/17/2024) [place] of Occupational Health - Occupational Stress Questionnaire Feeling of Stress : To some extent Social Connections: Moderately Integrated (03/25/2024) Social Connection and Isolation Panel [NHANES] Frequency of Communication with Friends and Family: Three times a week Frequency of Social Gatherings with Friends and Family: Not on file Attends Christianity Services: More than 4 times per year [...] we have approval. documented in this encounter [facility] 06-30-2024 History of Present illness Narrative [...] if problems arise. documented in this encounter [facility] 06-18-2024 History of Present illness Narrative [...] min Stress: No Stress Concern Present (03/25/2024) [place] of Occupational Health - Occupational Stress Questionnaire Feeling of Stress : Not at all Recent Concern: Stress - Stress Concern Present (03/17/2024) [place] of Occupational Health - Occupational Stress Questionnaire Feeling of Stress : To some extent Social Connections: Moderately Integrated (03/25/2024) Social Connection and Isolation Panel [NHANES] Frequency of Communication with Friends and Family: Three times a week Frequency of Social Gatherings with Friends and Family: Not on file Attends Christianity Services: More than 4 times per year [...] unspecified vessel or lesion type, unspecified whether qawalangin or transplanted heart ([facility]) Problem is stable, will continue with current treatment plan. Call or return to clinic if any changes occur - aspirin 81 MG EC tablet; Take 1 tablet (81 mg) by mouth Daily - Microalbumin / creatinine urine ratio; Future - Comprehensive metabolic panel; Future Type 2 diabetes mellitus without complication, with long-term current use of insulin ([facility]) Reviewed labs and/or imaging at ov today. [...] associated with type 2 diabetes mellitus (HCC) ([facility]) Reviewed labs and/or imaging at ov today. advised that it appears that he is dehydrated and this may be contributing to the kidney problems - Microalbumin / creatinine urine ratio; Future - Comprehensive metabolic panel; Future Mixed hyperlipidemia ([facility]) Reviewed labs and/or imaging at ov today. Will continue current treatment regimen and follow up at next scheduled visit unless problems arise. - CBC and differential; Future Hypertension, unspecified type ([facility]) Record Blood Pressures 2-4 times weekly and record. Return with readings at next appointment. Call with readings if sees significant changes - Microalbumin / creatinine urine ratio; Future - CBC and differential; Future Hypothyroidism, unspecified type ([facility]) Problem is stable, will continue with current treatment plan. Call or return to clinic if any changes occur - CBC and differential; Future Updated Medications: I have reviewed and reconciled the history and medication list with the patient today. Current Outpatient Medications: omega-3, EPA+DHA, ([place]-3) 1000 MG capsule, 1 capsule, Disp: , [...] tablet, Rfl: 0 documented in this encounter [facility] 06-15-2024 History of Present illness Narrative [...] Review Audit Reviewed by Frankie Cosby MA (Ice Rink Attendant) on 06/15/24 at 0841 Medication Order Taking? Sig Documenting Provider Last Dose Status acetaminophen (Tylenol) 500 MG tablet [id number] Take 1,000 mg by mouth Daily Active amLODIPine (Norvasc) 10 MG tablet [id number] 1 (one) time each day at the same time. Historical Provider, Active atorvastatin (Lipitor) 20 MG tablet [id number] Take 1 tablet (20 mg) by mouth 1 (one) time each day at the same time Tom Field DO Active carbidopa-levodopa (Sinemet) 25-100 MG tablet [id number] TAKE 1 TABLET BY MOUTH AT 8AM, NOON, 3PM, AND 6PM Fer García NP Active clopidogrel (Plavix) 75 MG tablet [id number] Take 1 tablet (75 mg) by mouth in the morning. Tom Field DO Active Continuous Glucose Canvas Goods Supervisor (FreeStyle Lillian 2 [place]) device [id number] Dispense 1 reader device for every day use to check blood sugars E11.9 Tom Field DO Active Continuous Glucose Sensor (FreeStyle Lillian 2 Sensor) [facility] [id number] 1 Units every 14 (fourteen) days Tom Field DO Active Continuous Glucose Sensor (FreeStyle Lillian [address]) [facility] [id number] 1 Units every 14 (fourteen) days Tom Field DO Active insulin glargine (Lantus SoloStar) 100 UNIT/ML pen [id number] INJECT 10 UNITS UNDER THE SKIN EVERY DAY AT BEDTIME Tom Field DO Active insulin pen needle (B-D UF III MINI PEN NEEDLES) 31G x [address] [facility] [id number] Use daily as directed Tom Field DO Active lisinopril 5 MG tablet [id number] Take 1 tablet (5 mg) by mouth Daily Tom Field DO Active metFORMIN XR (Glucophage-XR) 500 MG 24 hr tablet [id number] TAKE 1 TABLET BY MOUTH IN THE EVENING. TAKE WITH MEALS DO NOT CRUSH, CHEW, OR SPLIT. Tom Field, DO Active metoprolol succinate XL (Toprol-XL) 25 MG 24 hr tablet [id number] Take 1 tablet by mouth 1 (one) time each day. Historical Provider, Active mirabegron ER (Myrbetriq) 50 MG 24 hr tablet [id number] Take 50 mg by mouth 1 (one) time each day at the same time Active Misc. Devices (Rollator Ultra-Light) [facility] [id number] 1 rollator with seat for every day use Tom Field DO Active terbinafine (LamISIL) 250 MG tablet [id number] TAKE 1 TABLET BY MOUTH EVERY DAY Sarah Connell DPM Active traMADol (Ultram) 50 MG tablet [id number] Take 1 tablet (50 mg) by mouth [...] fell in March and was seen at [facility], was not admitted. Did hit his head. [...] ankle and great toe bilaterally. Coordination Right: [id number] normal. Rapid alternating movement abnormality:Left: Hfymry-rp-qwrk normal. Rapid alternating movement abnormality: Bradykinesia noted with MONY. Gait Slow, shuffle gait. Decreased arm swing bilaterally. Uses arms to get out of the chair. Motor Examination RUE Strength deltoid, biceps, triceps, wrist extensors, wrist extensors, wrist flexor, measurement operator strength 5/5. LUE Strength deltoid, biceps, triceps, wrist extensors, wrist extensors, wrist flexor, measurement operator strength 5/5. RLE Strength illopsoas, quadriceps, tibialis [...] male who is being seen in at [facility] on 02/25/2024 with altered mental status and [...] after his hospitalization and was evaluated at [facility] with nonacute CT head and cervical spine [...] wear. He followed with Dr Gonsales at [facility]. His will call to schedule an appointment to discuss alternative therapies and/or mask. He has an appt to discuss the Inspire device. We discussed the affects and risks associated with untreated LOPEZ Evaluation at [facility] in February 2024: 1. CT scan of [...] sooner if needed documented in this encounter [facility] 06-07-2024 History of Present illness Narrative [...] seeing Dr. Conde cardiology recently switched from [facility]. Has upcoming appt. Weakness/ Unsteady gait. Parkinsonism: [...] min Stress: No Stress Concern Present (03/25/2024) [place] of Occupational Health - Occupational Stress Questionnaire Feeling of Stress : Not at all Recent Concern: Stress - Stress Concern Present (03/17/2024) [place] of Occupational Health - Occupational Stress Questionnaire Feeling of Stress : To some extent Social Connections: Moderately Integrated (03/25/2024) Social Connection and Isolation Panel [NHANES] Frequency of Communication with Friends and Family: Three times a week Frequency of Social Gatherings with Friends and Family: Not on file Attends Christianity Services: More than 4 times per year [...] Parkinson's disease with dyskinesia and fluctuating manifestations ([facility]) Patient has need of a walker/rollator in [...] for every day use Peripheral vascular disease ([facility]) Reviewed vascular surgery notes in office today. Will continue current treatment regimen and follow up at next scheduled visit unless problems arise. Hypertension, unspecified type ([facility]) Record Blood Pressures 2-4 times weekly and [...] unspecified vessel or lesion type, unspecified whether qawalangin or transplanted heart ([facility]) Patient advised to return if symptoms worsen and/or persist despite treatment. Type 2 diabetes mellitus with hyperglycemia, without long-term current use of insulin ([facility]) Labs ordered today, will follow up when [...] Disp: 90 tablet, Rfl: 1 Continuous Glucose Canvas Goods Supervisor (FreeStyle Lillian 2 [place]house) device, Dispense 1 reader device for every [...] tablet, Rfl: 0 documented in this encounter [facility] 02-09-2024 Procedure note [facility] 07-02-2023 Evaluation note Encounter Date Diagnosis Assessment [...] changes in symptoms and/or problems with treatment [facility] Other 03-30-2023 NoteCONSULTATION CONSULTATION DATE: 01/09/2023 TO: [...] in medication.[facility] 12-19-2022 NoteCONSULTATION CONSULTATION DATE: 12/26/2022 HISTORY: This [...] from a physician they saw at the [facility]. The patient and the are interested in [...] six weeks.[id number] Note CONSULTATION CONSULTATION DATE: 11/12/2022 CHIEF COMPLAINT: [...] to proceed.[id number] NoteCONSULTATION PROCEDURE DATE: 11/12/2022 PREOPERATIVE DIAGNOSIS: Gluteal [...] the future.[id number] NoteCONSULTATION CONSULTATION DATE: 09/03/2022 CHIEF COMPLAINT: Low [...] to proceed.[id number] NoteCONSULTATION CONSULTATION DATE: 05/23/2022 This is a [...] his plan.[id number] NoteCONSULTATION PROCEDURE DATE: 05/23/2022 PRE AND POSTOPERATIVE [...] the office.[id number] NoteCONSULTATION CONSULTATION DATE: 02/28/2022 This is a [...] to maintain his medications unless otherwise indicated. [facility] Signed and Approved by: DIAMANTE SPAULDING . 03/04/2022 15:07:00[facility]Evaluation noteNo assessment information availableMagruder [facility] Hospital Work Phone: Evaluation note* Diagnosis Onset Date Resolution Status Diminished pulses in lower extremity acute PVD (peripheral vascular disease) acute [facility] Work Phone: Evaluation note* Diagnosis Onset Date Resolution Status Diminished pulses in lower extremity acute PVD (peripheral vascular disease) acute [id number] acute S/P placement of cardiac pacemaker acute S/P PTCA (percutaneous trans luminal coronary angioplasty) acute Sick sinus syndrome acute [facility] Work Phone: Evaluation note* Diagnosis Onset Date Resolution Status Diminished pulses in lower extremity acute PVD (peripheral vascular disease) acute [id number] acute S/P placement of cardiac pacemaker acute S/P PTCA (percutaneous trans luminal coronary angioplasty) acute Sick sinus syndrome acute Congestive heart failure acu te Diabetes acute HTN (hypertension) acute Intolerance to BiPAP/CPAP ac pauma Myocardial infarction acute Obstructive sleep apnea acut e [facility] Work Phone: Evaluation note* Diagnosis Myalgia Unspecified myalgia and myositis documented in [facility] encounter [facility]* Diagnosis Obstructive sleep apnea- Primary Obstructive sleep apnea (adult) (pediatric) Intolerance of continuous positive airway pressure (CPAP) ventilation documented in this encounter [facility]* Diagnosis Onychomycosis Dermatophytosis of nail documented in this encounter [facility]* Diagnosis Parkinson's disease with dyskinesia and fluctuating manifestations ([facility]CC)- Primary Obstructive sleep apnea syndrome Obstructive sleep apnea (adult) (pediatric) documented [facility] encounter [facility]* Diagnosis Onychomycosis- Primary Dermatophytosis of nail Type II diabetes mellitus with neurological manifestations ([facility]CC) Type II or unspecified type diabetes mellitus with neurological manifestations, not stated as uncontrolled documented [facility]* Diagnosis LOPEZ (obstructive sleep apnea)- Primary Obstructive sleep apnea (adult) (pediatric) documented [facility]* Diagnosis Parkinson's disease with dyskinesia and fluctuating manifestations ([facility])- Primary Peripheral vascular disease ([facility]) Unspecified peripheral vascular disease Hypertension, unspecified type ([facility]) Hypothyroidism, unspecified type ([facility]) Stage 3a chronic kidney disease (HCC) ([facility]) 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, unspecified vessel or lesion type, unspecified whether qawalangin or transplanted heart ([facility]) Type 2 diabetes mellitus with hyperglycemia, without long-term current use of insulin ([facility]) Myalgia Unspecified myalgia and myositis documented [facility]* Diagnosis Onychomycosis- Primary Dermatophytosis of nail Type II diabetes mellitus with neurological manifestations ([facility]) Type II or unspecified type diabetes mellitus with neurological manifestations, not stated as uncontrolled Pain in both feet documented [facility]* Diagnosis Parkinson's disease with dyskinesia and fluctuating manifestations ([facility])- Primary documented in [facility]* Diagnosis 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, unspecified vessel or lesion type, unspecified whether qawalangin or transplanted heart ([facility])- Primary Type 2 diabetes mellitus without complication, with long-term current use of insulin ([facility]) Diabetic nephropathy associated with type 2 diabetes mellitus (HCC) ([facility]) Mixed hyperlipidemia ([facility]) Mixed hyperlipidemia Hypertension, unspecified type ([facility]) Hypothyroidism, unspecified type ([facility]) documented [facility]* Diagnosis Obstructive sleep apnea- Primary Obstructive sleep apnea (adult) (pediatric) Intolerance of continuous positive airway pressure (CPAP) ventilation documented [facility]* Diagnosis Myalgia Unspecified myalgia and myositis documented [facility]* Diagnosis 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, unspecified vessel or lesion type, unspecified whether qawalangin or transplanted heart (CMS/HCC)- Primary Type 2 [...] HealthcareHistory and physical note Author Manda Lockwood [facility] February 09, 2024 9:53am Note Date/Time February 09, 2024 9:2 0am [facility] [address] [place] [address] Gastroenterology H&P Signed Patient: Ramon Cruz MR#: [id number] : 1945 Acct:[id number] Age/Sex: 78 / M Adm Date: 4 Loc: Room: Type: [facility] Attending Dr: Manda Lockwood MD Copies to: [...] <Electronically signed by Manda Lockwood MD> 02/09/24 0929 [facility] Work Phone: History general Narrative - Reported* Type Description Date Medical History HTN Medical History DM Medical History AR Medical History CAD Medical History LOPEZ Medical History Congestive heart failure Surgical History 8 stents Surgical History pacemaker 03/26/21 Hospitalization History see above [facility] Other History of Present illness Narrative* moved to [facility] * had flu sjot/ had covid booster * eye.. dr. mg sommer in [place] * hgm 120 s * no log here, ran out of test strips * agent lantus plus glimep * has a pcp in [facility] * no hypos [employer] [facility] Work Phone: History of Present illness Narrative* moved to [facility] * had flu sjot/ had covid booster * eye.. dr. mg sommer in [place] * hgm 120 s * no log here, * agent lantus plus glimep * has a pcp in [facility] * no hypos * feels well * drove here from [facility] this am * will travel to [place] this winter [employer] [facility] Work Phone: History of Present illness Narrative* feels well * takes meds ok * hobbies... TV * agent lantus plus glimep * hgm 100-130 * cards d.r G * eye dr. catherine valentineusky * no sob or chest pains -[employer] [facility] Work Phone: Hospital Discharge instructions Additional Instructions [...] years. -Follow up with PCP. -Office number [phone]. 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 Field for PVD I70.213 - Atherosclerosis of qawalangin arteries of ex Reason for Visit Diminished pulses in lower extremity PVD (peripheral vascular disease) Chief Complaint Ref from Dr. Field for PVD I70.213 - Atherosclerosis of qawalangin arteries of ex pacemaker/stents establish Reason for Visit Diminished pulses in lower extremity PVD (peripheral vascular disease) Chief Complaint Ref from Dr. Field for PVD I70.213 - Atherosclerosis of qawalangin arteries of ex pacemaker/stents establish Reason for Visit Diminished pulses in lower extremity PVD (peripheral vascular disease) [id number] S/P placement of cardiac pacemaker S/P PTCA (percutaneous transluminal coronary angioplasty) Sick sinus syndrome Chief Complaint Ref from Dr. Field for PVD I70.213 - Atherosclerosis of qawalangin arteries of ex pacemaker/stents establish I49.1 I50.9 lopez/ interested in inspire Reason for Visit Diminished pulses in lower extremity PVD (peripheral vascular disease) [id number] S/P placement of cardiac pacemaker S/P PTCA (percutaneous transluminal coronary angioplasty) Sick sinus syndrome Chief Complaint Ref from Dr. Field for PVD I70.213 - Atherosclerosis of q[place] arteries of ex pacemaker/stents establish I49.1 I50.9 lopez/ interested in inspire Z95.0 Reason for Visit Diminished pulses in lower extremity PVD (peripheral vascular disease) [id number] S/P placement of cardiac pacemaker S/P PTCA [...] section and content) DATE CREATED AUTHOR 05/27/2022 [employer] DATE CREATED AUTHOR AUTHOR'S ORGANIZ ATION 09/02/2022 [facility] dical Specialist DATE CREATED AUTHOR AUTHOR'S ORGANIZ ATION 10/21/2022 [facility] DATE CREATED AUTHOR AUTHOR'S ORGANIZ ATION 12/03/2022 [facility] DATE CREATED AUTHOR AUTHOR'S ORGANIZ ATION [facility]/2023 [facility] DATE CREATED AUTHOR AUTHOR'S ORGANIZ ATION 02/26/2023 [facility] DATE CREATED AUTHOR AUTHOR'S ORGANIZ ATION 07/03/2024 [facility] DATE CREATED AUTHOR AUTHOR'S ORGANIZ ATION 10/10/2024 [facility] DATE CREATED AUTHOR AUTHOR'S ORGANIZ ATION 11/28/2024 [facility] dical Specialists EPIC Care Teams (unrecognized sec [...] Member Role Status Dates Tom Conde MD Oil Expeller Active Benedicto Field DO Primary Care Provider [...] Active Start: June End: July 07, 2024 Drill Rig Operator Helper Relationship Specialty Start Date End Date Tom Field DO [address] [place] [address] PCP - General Family Medicine 02/18/23 Tom Field DO [address] [place] [address] PCP - ACO Reach 12/12/23 Charlene Sullivan, [place] Registered Nurse Family Medicine 03/17/24 Drill Rig Operator Helper Relationship Specialty Start Date End Date Tom Field DO [address] [place] [address] PCP - General Family Medicine 02/18/23 Tom Field DO [address] [place] [address] PCP - ACO Reach 12/12/23 Charlene Sullivan, [place] Registered Nurse Family Medicine 03/17/24 Lili Gonsales MD [address] [place] [address] Referring Physician Sleep Medicine 08/10/24 Sunny Vasquez, DO [address] [place] [address] Otolaryngology 08/10/24 Drill Rig Operator Helper Relationship Specialty Start Date End Date Tom Field DO [address] [place] [address] PCP - General Family Medicine 02/18/23 Tom Field DO [address] [place] [address] PCP - ACO Reach 12/12/23 Charlene Sullivan, [place] Registered Nurse Family Medicine 03/17/24 Lili Gonsales MD [address] [place] [address] Referring Physician Sleep Medicine 08/10/24 Sunny Vasquez, DO [address] [place] [address] Otolaryngology 08/10/24 Drill Rig Operator Helper Relationship Specialty Start Date End Date Tom Field DO [address] [place] [address] PCP - General Family Medicine 02/18/23 Tom Field DO [address] [place] [address] PCP - ACO Reach 12/12/23 Charlene Sullivan, RN Registered Nurse Family Medicine 03/17/24 Lili Gonsales MD [address] [place] [address] Referring Physician Sleep Medicine 08/10/24 Sunny Vasquez, DO [address] [place] [address] Otolaryngology 08/10/24 Drill Rig Operator Helper Relationship Specialty Start Date End Date Tom Field DO [address] [place] [address] PCP - General Family Medicine 02/18/23 Tom Field DO [address] [place] [address] PCP - ACO Reach 12/12/23 Charlene Sullivan, [place] Registered Nurse Family Medicine 03/17/24 Lili Gonsales MD [address] [place] [address] Referring Physician Sleep Medicine 08/10/24 Sunny Vasquez DO [address] [place] [address] Otolaryngology 08/10/24 Drill Rig Operator Helper Relationship Specialty Start Date End Date Tom Field DO [address] [place] [address] PCP - General Family Medicine 02/18/23 Tom Field DO [address] [place] [address] PCP - ACO Reach 12/12/23 Charlene Sullivan, RN Registered Nurse Family Medicine 03/17/24 Lili Gonsales MD [address] [place] [address] Referring Physician Sleep Medicine 08/10/24 Sunny Vasquez DO [address] [place] [address] Otolaryngology 08/10/24 Eusebio Guerin MD [address] [place] [address] Referring Physician Neurology 09/06/24 Drill Rig Operator Helper Relationship Specialty Start Date End Date Tom Field DO [address] [place] [address] PCP - General Family Medicine 02/18/23 Tom Field DO [address] [place] [address] PCP - ACO Reach 12/12/23 Charlene Sullivan, [place] Registered Nurse Family Medicine 03/17/24 Drill Rig Operator Helper Relationship Specialty Start Date End Date Tom Field DO [address] [place] [address] PCP - General Family Medicine 02/18/23 Tom Field DO [address] [place] [address] PCP - ACO Reach 12/12/23 Charlene Sullivan, [place] Registered Nurse Family Medicine 03/17/24 Lili Gonsales MD [address] [place] [address] Referring Physician Sleep Medicine 08/10/24 Sunny Vasquez, DO [address] [place] [address] Otolaryngology 08/10/24 Eusebio Guerin MD [address] [place] [address] Referring Physician Neurology 09/06/24 Drill Rig Operator Helper Relationship Specialty Start Date End Date Tom Field DO [address] [place] [address] PCP - General Family Medicine 02/18/23 Tom Field DO [address] [place] [address] PCP - ACO Reach 12/12/23 Charlene Sullivan, RN Registered Nurse Family Medicine 03/17/24 Lili Gonsales MD [address] [place] [address] Referring Physician Sleep Medicine 08/10/24 Sunny Vasquez DO [address] [place] [address] Otolaryngology 08/10/24 Eusebio Guerin MD [address] [place] [address] Referring Physician Neurology 09/06/24 Drill Rig Operator Helper Relationship Specialty Start Date End Date Tom Field DO [address] [place] [address] PCP - General Family Medicine 02/18/23 Tom Field DO [address] [place] [address] PCP - ACO Reach 12/12/23 Charlene Sullivan, [place] Registered Nurse Family Medicine 03/17/24 Lili Gonsales MD [address] [place] [address] Referring Physician Sleep Medicine 08/10/24 Sunny Vasquez, DO [address] [place] [address] Otolaryngology 08/10/24 Eusebio Guerin MD [address] [place] [address] Referring Physician Neurology 09/06/24 Drill Rig Operator Helper Relationship Specialty Start Date End Date Tom Field DO [address] [place] [address] PCP - General Family Medicine 02/18/23 Tom Field DO [address] [place] [address] PCP - ACO Reach 12/12/23 Charlene Sullivan, RN Registered Nurse Family Medicine 03/17/24 Drill Rig Operator Helper Relationship Specialty Start Date End Date Tom Field DO [address] [place] [address] PCP - General Family Medicine 02/18/23 Tom Field DO [address] [place] [address] PCP - ACO Reach 12/12/23 Charlene Sullivan, RN Registered Nurse Family Medicine 03/17/24 Lili Gonsales MD [address] [place] [address] Referring Physician Sleep Medicine 08/10/24 Sunny Vasquez, DO [address] [place] [address] Otolaryngology 08/10/24 Eusebio Guerin MD [address] [place] [address] Referring Physician Neurology 09/06/24 Drill Rig Operator Helper Relationship Specialty Start Date End Date Tom Field, DO [address] [place] [address] PCP - General Family Medicine 02/18/23 Tom Field, DO [address] [place] [address] PCP - ACO Reach 12/12/23 Charlene Sullivan, RN Registered Nurse Family Medicine 03/17/24 Drill Rig Operator Helper Relationship Specialty Start Date End Date Tom Field DO [address] [place] [address] PCP - General Family Medicine 02/18/23 Tom Field DO [address] [place] [address] PCP - ACO Reach 12/12/23 Charlene Sullivan, [place] Registered Nurse Family Medicine 03/17/24 Drill Rig Operator Helper Relationship Specialty Start Date End Date Tom Field DO [address] [place] [address] PCP - General Family Medicine 02/18/23 Tom Field DO [address] [place] [address] PCP - ACO Reach 12/12/23 Charlene Sullivan, [place] Registered Nurse Family Medicine 03/17/24 Drill Rig Operator Helper Relationship Specialty Start Date End Date Tom Field, DO [address] [place] [address] PCP - General Family Medicine 02/18/23 Tom Field, DO [address] [place] [address] PCP - ACO Reach 12/12/23 Charlene Sullivan, [place] Registered Nurse Family Medicine 03/17/24 Drill Rig Operator Helper Relationship Specialty Start Date End Date Tom Field, DO [address] [place] [address] PCP - General Family Medicine 02/18/23 Tom Field, DO [address] [place] [address] PCP - ACO Reach 12/12/23 Charlene Sullivan, [place] Registered Nurse Family Medicine 03/17/24 Lili Gonsales MD [address] [place] [address] Referring Physician Sleep Medicine 08/10/24 Sunny Vasquez, DO [address] [place] [address] Otolaryngology 08/10/24 Eusebio Guerin MD [address] [place] [address] Referring Physician Neurology 09/06/24 Drill Rig Operator Helper Relationship Specialty Start Date End Date Tom Field DO [address] [place] [address] PCP - General Family Medicine 02/18/23 Tom Field DO [address] [place] [address] PCP - ACO Reach 12/12/23 Charlene Sullivan, RN Registered Nurse Family Medicine 03/17/24 Lili Gonsales MD [address] [place] [address] Referring Physician Sleep Medicine 08/10/24 Sunny Vasquez DO [address] [facility] [place] [address] Otolaryngology 08/10/24 Eusebio Guerin MD [address] [place] [address] Referring Physician Neurology 09/06/24 Drill Rig Operator Helper Relationship Specialty Start Date End Date Tom Field DO [address] [place] [address] PCP - General Family Medicine 02/18/23 Tom Field DO [address] [place] [address] PCP - ACO Reach 12/12/23 Charlene Sullivan, RN Registered Nurse Family Medicine 03/17/24 Lili Gonsales MD [address] [place] [address] Referring Physician Sleep Medicine 08/10/24 Sunny Vasquez DO [address] [place] [address] Otolaryngology 08/10/24 Eusebio Guerin MD [address] [place] [address] Referring Physician Neurology 09/06/24 Goals (unrecognized section [...] BE BASED ON THE PRIMARY CLINICAL RECORDS. [employer] provides no warranty or guarantee of the accuracy or completeness of information in this document.
[2024-12-14 06:54] VITALS: BP 113/61; PULSE 48; TEMP 36.3; O2SAT 97
[2024-12-14 07:56] VITALS: BP 123/60; PULSE 84; O2SAT 99
[2024-12-14 07:58] VITALS: BP 138/72; PULSE 85; O2SAT 100
[2024-12-14] MEDS: METHYLPREDNISOLONE ACETATE 40 MG/ML VIAL INJ (08:06)
[2024-12-14] MEDS: LIDOCAINE HCL 2% 400 MG/20 ML MDV 5 ML INJ (08:19)
[2024-12-14] MEDS: BUPIVACAINE HCL 0.25% PF 25 MG/10 ML VIAL 5 ML INJ (08:19)
--- NOTE | 2024-12-14 08:41 | W.PM.PROCNOT ---
Date of procedure: 12/14/24 Pre-op diagnosis: Lumbar spondylosis Post-op diagnosis: same as pre-op Procedure: Left Lumbar 4/5, 5/sacral 1 Radiofrequency ablation Under fluoroscopic guidance Rhizotomy was created using radio frequency ablation at 80?C for 90 seconds 1 to 2 lesions created at each site. Post lesioning injection of 2 mL each of 0.25% Marcaine and 2% lidocaine with Depo-Medrol 40mg. 0.5 to 1 mL injected at each site IV in place no If Intravenous fluids: NS at KVO Anesthesia local 2% lidocaine for Anesthesia Other: local Timeout process compliant After informed consent obtained.Patient brought to the procedure room placed in the prone position skin overlying the area was prepped and draped in a sterile fashion using betadine. 25 gauge needle was used to create a skin wheal over each of the targeted areas utilizing 2% lidocaine. A rhizotomy needle with a 10 mm active tip was inserted over each of the anesthetized areas and directed towards each of the medial branches accomplished under fluoroscopic guidance. after encountering the same we had positive sensory stimulation, negative motor stimulation was noted. lesions were then created. Post lesioning, steroid solution was injected needles removed. Patient was transferred to recovery room in stable condition to be discharged home after meeting criteria. Anesthesia: Local Surgeon: Mery Peterson Condition: stable
--- NOTE | 2024-12-14 08:42 | PC.NURSE ---
Nae [employer] rep, called to report no interference and stability with patient's pacemaker device. Ok to be discharged.
== END 2024-12-14 08:41 | disposition home or self-care (01) ==
LOC: SURGOUT 06:41
PROVIDERS: PCP Family Medicine; Visit Provider Anesthesiology Pain Medicine
DX: M47.816 Spondylosis without myelopathy or radiculopathy, lumbar region (principal); E11.9 Type 2 diabetes mellitus without complications; Z79.84 Long term (current) use of oral hypoglycemic drugs; Z79.4 Long term (current) use of insulin
CPT/HCPCS: 64635; 64636; 82948; J0665; J1010

== ENCOUNTER 2025-01-06 08:22 | Outpatient (OUT) | payer MEDICARE, SELFPAY ==
--- NOTE | 2025-01-06 08:57 | PM.CN ---
Consult Note: HPI Data of Consult Patient: known to practice within the last 3 years Requesting Physician: Machelle Jimenez NP Primary Care Provider: Valentino ANDRES Consult Narrative Reason for consult: f/u Narrative: Ramon Mariee a pleasant 79 year old male presents for evaluation and management of chronic low back pain. Today rating pain 8/10, pain is increased with walking standing ADLS bending lifting and decreased with rest and sleep. longstanding hx of low back pain secondary to lumbar spondylosis and lumbar stenosis. has completed 6 weeks of provider guided HEP without improvement in pain or function. no benefit to heat or ice. cannot take NSAIDs, on plavix. mild relief from baclofen and tylenol, moderate relief from tramadol. Recently underwent repeat right and left L4-5 L5-S1 facet RFA with significant improvement in axial pain, however hes having moderate to severe pain with standing and walking, improved with sitting and forward flexion. currently utilizing his walker. cc:: CC: Machelle Jimenez NP Review of Systems ROS Status of ROS 10 or more systems reviewed and unremarkable except as noted in history and below Musculoskeletal Reports: back pain PFSH PFSH Medical History Pacemaker ?Z95.0 - Presence of cardiac pacemaker (ICD-10) Low back pain ?M54.50 - Low back pain, unspecified (ICD-10) Diabetes ?E11.9 - Type 2 diabetes mellitus without complications (ICD-10) Acute prostatitis ?N41.0 - Acute prostatitis (ICD-10) High cholesterol ?E78.00 - Pure hypercholesterolemia, unspecified (ICD-10) Hypertension ?I10 - Essential (primary) hypertension (ICD-10) Congestive heart failure ?I50.9 - Heart failure, unspecified (ICD-10) Angina at rest ?I20.8 - Other forms of angina pectoris (ICD-10) Heart attack ?I21.9 - Acute myocardial infarction, unspecified (ICD-10) Surgical History H/O heart artery stent ?Z95.5 - Presence of coronary angioplasty implant and graft (ICD-10) History of arthroplasty of left knee ?Z96.652 - Presence of left artificial knee joint (ICD-10) History of arthroplasty of right knee ?Z96.651 - Presence of right artificial knee joint (ICD-10) History of cholecystectomy ?Z90.49 - Acquired absence of other specified parts of digestive tract (ICD-10) Meds Home Medications and Allergies Home Medications ?Medication ?Instructions ?Recorded ?Confirmed ?Type B complex 11-folic acid 1 mg-C 100 1 tab PO QDAY 03/13/23 12/14/24 History mg-biotin 300 mcg-zinc 50 mg tablet (Dialyvite) acetaminophen 325 mg capsule 500 mg PO QID PRN pain 03/13/23 12/14/24 History (Tylenol) amlodipine 10 mg tablet 10 mg PO QDAY 03/13/23 12/14/24 History aspirin 325 mg tablet,delayed 81 mg PO QDAY 03/13/23 12/14/24 History release atorvastatin 20 mg tablet 20 mg PO QDAY 03/13/23 12/14/24 History coenzyme Q10 75 mg capsule (Ultra 75 mg PO QDAY 03/13/23 12/14/24 History CoQ10) glimepiride 1 mg tablet (Amaryl) 1 mg PO QDAY 03/13/23 12/14/24 History insulin glargine 100 unit/mL (3 10 unit subcut QAM 03/13/23 12/14/24 History mL) subcutaneous pen (Lantus Solostar U-100 Insulin) lisinopril 10 mg tablet 5 mg PO QDAY 03/13/23 12/14/24 History metoprolol succinate 25 mg PO QDAY 03/13/23 12/14/24 History omega 6-vgn-joo-fish oil 1,000 mg 1 cap PO QDAY 03/13/23 12/14/24 History (120 mg-180 mg) capsule (Fish Oil) oxybutynin chloride 10 mg 10 mg PO QDAY 03/13/23 12/14/24 History tablet,extended release 24 hr vitamin E 268 mg (400 unit) capsule 180 mg PO QDAY 03/13/23 12/14/24 History tramadol 50 mg tablet 50 mg PO BID 11/20/23 12/14/24 History acetaminophen 500 mg tablet 500 mg PO .8 hours 03/12/24 12/14/24 History (Tylenol Extra Strength) carbidopa 25 mg-levodopa 100 mg 1 tab PO BID 03/12/24 12/14/24 History tablet (Sinemet) metformin 500 mg tablet 500 mg PO DAILY 03/12/24 12/14/24 History Allergies Allergy/AdvReac Type Severity Reaction Status Date / Time No Known Drug Allergies Allergy Verified 12/14/24 06:53 Exam Constitutional Documenting provider has reviewed patient's vital signs: yes Common normals: no apparent distress, oriented x3, healthy appearing, alert and well nourished General appearance: cooperative HENMT Common normals: normocephalic, hearing grossly normal bilaterally and moist oral mucous membranes Head and scalp: normocephalic Eye Common normals: PERRL Pupil: PERRL Neck & C-Spine Common normals: full ROM General: normal visual inspection Chest Common normals: inspection of chest normal Respiratory Common normals: normal respiratory effort, no retractions and no use of accessory muscles Back & Pelvis Lumbar spine/lower back: ROM limited, pain with ROM, straight leg raise positive right and straight leg raise positive left Other: decreased sensation bilateral L4,5,S1 strength 4/5 in BLE Extremity Common normals: normal to inspection and full ROM Neuro Common normals: oriented x3, CN's II-XII intact bilaterally, moves all extremities, no focal motor deficits, no sensory deficits noted and deep tendon reflexes 2+ bilaterally Sensorium/orientation: alert Gait (neuro): antalgic Motor exam: strength 5/5 throughout and no movement abnormalities noted Psych Common normals: mental status grossly normal, thought process normal, cooperative, affect normal, speech normal and activity/motor behavior normal Speech: normal speech Thought process: normal thought process Results Additional Findings Additional findings: I have checked an OARRS report on this patient today and there are no aberrancies noted in the prescribing history.?? A drug screen was completed and reviewed within the last year, and if there has not been a drug screen completed we ordered one today to monitor higher risk, state monitored pain medication use. As part of providing excellent, safe, comprehensive care, the following was completed at our patient's visit: 1. A medication reconciliation and review to ensure accurate knowledge of current/active medications, including asking our patients to inform us about any [id number] medications or herbal remedies/nutritional supplements/alternative remedies. 2. A review to specifically ensure our patients have had annual screening for: elevated body mass index (BMI), tobacco use, screening for depression, and screening for unhealthy alcohol use. When screening is concerning, patients are provided with education and the specific recommendation to discuss the concerning health issue and treatment options with their primary care provider. Assessment and Plan Assessment and Plan (1) Lumbar spondylosis: (2) Lumbar stenosis with neurogenic claudication: Assessment and Plan: The patient has had over 3 months of moderate to severe low back pain with functional impairment and inadequate response to conservative care including NSAIDS (unless there are contraindication such as concurrent blood thinners), multiple oral or topical pain medications, and home exercise program/physical therapy.? Patient has completed >6 weeks of guided home exercise program and/or formal physical therapy program without relief of their symptoms.? I have reviewed the imaging of the lumbar spine and no red flags were identified.? The imaging reveals radiographic findings consistent with lumbar spondylosis and lumbar stenosis with NC The Oswestry Disability Index was completed, and the patient scored a 67%.? The patient noted the following:?? severe pain, severe pain with standing, walking, travel We discussed the risks and benefits of the procedure with the patient, and we are NOT planning on using sedation as outlined in the guidelines from Medicare unless there is a documented reason that sedation would be strongly recommended.?? ?The procedure will be completed with fluoroscopic guidance.? 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 The patient does not report intolerable side effects. The patient is NOT opioid naive and non-pharmacologic and non-opioid treatment has failed to significantly relieve the patient's pain and improve functionality. The patient has a diagnosis that is related to a somatic or visceral pain etiology. ? ?? I reviewed with the patient the potential risks and side effects with the use of? opioid medications including but not limited to respiratory depression,? sedation, and even . Within the last 12 months I have verified the patient has access to naloxone should? these effects occur. The patient was advised to let? their family know they had Naloxone in case they would need to administer? the medication. I advised the patient to avoid the use of any other? sedation substances including alcohol, THC, and benzodiazepines while? taking opioid medications due to the risk of compounding side effects and? detrimental outcomes. within the last 12 months I have reviewed the BIOSOLIDS MANAGEMENT TECHNICIAN, pain treatment agreement and urine drug screen.? ?? A drug screen was completed within the last year, and no aberrancies were noted regarding their use of controlled substances. The patient understands they are subject to the terms and conditions of the pain contract that they have signed. ? ?? I have checked an OARRS report on this patient today and there are no aberrancies noted in the prescribing history.? Plan bilateral L4-5 TFESI under fluoroscopy for lumbar stenosis with NC, consider bilateral L5-S1 TFESI as well refill baclofen 10mg BID PRN pain/spasms continue tramadol 50mg BID PRN moderate to severe pain risks vs benefits of current medication reviewed f/u 2 weeks after injection
== END 2025-01-06 08:23 | disposition home or self-care (01) ==
LOC: PM 08:23
PROVIDERS: PCP Family Medicine; Visit Provider Nurse Practitioner
DX: M47.816 Spondylosis without myelopathy or radiculopathy, lumbar region (principal); M48.062 Spinal stenosis, lumbar region with neurogenic claudication; M62.838 Other muscle spasm; Z79.891 Long term (current) use of opiate analgesic
CPT/HCPCS: G0463

== ENCOUNTER 2025-03-16 08:28 | Outpatient (OUT) | payer MEDICARE, SELFPAY ==
--- OUTSIDE RECORDS SUMMARY | 2025-03-16 08:36 | XMS_ITS | CCD ---
Author Organization [facility] Care Team Providers Care Instructor Traffic Safety Name Role Phone Poli Mercado MD Unavailable Unavailable Ashlee Henry Unavailable Unavailable Danny Thomson Unavailable Unavailable Ashlee Henry Unavailable Unavailable Unavailable Poli Mercado Attending Unavailable Dr. Ashlee Henry Primary Care Unavailable Poli Mercado Attending Unavailable UNKNOWN, PCP Referring Unavailable Dr. Ashlee Henry Primary Care Unavailable Valentino FIELD DO Primary Care Unavailable JOSY LEACH MD Attending Unavailable Vlaentino FIELD DO Primary Care Unavailable JOSY LEACH [...] Gonsales Unavailable MD Lili Gonsales Attending Provider DO Benedicto Field Primary Care Provider DO Benedicto Field Referring Provider DO Benedicto Field Primary Care Provider [phone] MD Lili Gonsales Attending Provider DO Benedicto Field Primary Care Provider [phone] MD Manda Lockwood Attending Provider MD Coleman Gale Attending Provider DO Benedicto Field Primary Care Provider MD Tom Conde Attending Provider Valentino FIELD DO Primary Care Unavailable DAVID WU-PhD, BARBY Attending Unavailable DO TOM FIELD Referring Unavailable Valentino FIELD DO Primary Care Unavailable DAVID WU-PhD, BARBY Attending Unavailable GISELLE GANDARA MD Attending Unavailable Valentino FIELD DO Primary Care Unavailable MyraTom singer DO Primary Care Provider MyraTom singer DO Unavailable [phone] Nate HENRIQUEZ, Charlene Unavailable [phone] Lili Gonsales MD Unavailable Sunny Vasquez DO Unavailable [phone] Eusebio Guerin MD Unavailable Benedicto Field DO Primary Care Provider [phone] Tom Conde MD Attending Provider Sunny Vasquez DO Attending Provider Benedicto Field DO Primary Care Provider Tom Conde MD Attending Provider Uday Raman Consulting Unavailable Roe Carpenter Admitting Unavailable Homar Gonzalez Attending Unavailable Benedicto Field Primary Care Unavailable Benedicto Field Primary Care Unavailable Tom Conde Attending Tom Scott Admitting Unavai labSunny Blanc Admitting Unavailable Sunny Vasquez Attending Unavailable Benedicto Field Primary Care Unavailable Asaad, Imad Admitting Unavailable Asaad, Imad Attending Unavailable Benedicto Field Primary Care Unavailable Sunny Vasquez Admitting Unavailable Sunny Vasquez Attending Unavailable Benedicto Field Primary Care Unavailable Benedicto Field Primary Care Unavailable Coleman Gale Admitting Unavailable Coleman Gale Attending Unavailable Benedicto Field Primary Care Unavailable Tom Conde Admitting Unavai labTom Bernard Attending Benedicto Dunbar Primary Care Unavailable Tom Conde Admitting Tom Scott Attending Benedicto Dunbar Primary Care Unavailable Robert Lockett Admitting Unavailable Robert Lockett Attending Unavailable Benedicto Field Primary Care Unavailable Tom Conde Attending Tom Scott Admitting Benedicto Dunbar Primary Care Unavailable Tmo Conde Attending Tom Scott Admitting Lili Baca MD Unavailable [phone] Hillary Lyles Unavailable Lili Gonsales MD Unavailable [phone] Lili Gonsales MD Unavailable Eusebio Guerin MD Unavailable Unavailable TOM FIELD Referring Unavailable HILLARY WILHELM Attending Unavailable SUE LOVING Attending Unavailable TOM FIELD Attending Unavailable SARAH CONNELL Attending Unavailable HETAL DAVIES Attending Unavailable TOM FIELD Attending Unavailable TOM FIELD Referring Unavailable SARAH CONNELL Attending Unavailable FER GARCÍA Attending Unavailable TMO FIELD Attending Unavailable DAJA MORENO Attending Unavailable RASHIDA, TOM Talley Attending Unavailable DAJA MORENO Attending Unavailable HILLARY WILHELM Attending Unavailable TOM FIELD Attending Unavailable FER [...] (non-medical use) Propensity to adverse reactions 4 Unknown Reaction [facility] Work Phone: Comment on above: intolerant (17 sources) HYDROcodone; Translations: [hydrocodone] Drug Allergy [facility] (1 source) Lactose Drug Allergy [address] [place] [address] Repository Medications Current Medications Medication Drug Class(es) Dates Sig (Normalized) Sig (Original) acetaminophen 500 mg / diphenhydrAMINE hydrochloride 25 mg oral tablet (3 sources) Histamine-1 Receptor Antagonist Start: 12-20-2024 take 2 tablets by mouth once daily at bedtime as needed for sleep and pain Diphenhydramine-A cetaminophen (Tylenol Pm Extra Strength) 25-500 mg tablet Active 2 TAB PO Daily at bedtime as needed for sleep and pain December 20, 2024 12:00am amLODIPine 10 mg oral tablet (20 sources) Dihydropyridine Calcium Channel Mckenna Start: 08-25-2019 take 1 tablet by mouth once daily in the morning Amlodipine 10 mg tablet Active 10 MG PO Every morning June 15, 2024 12:00am ascorbic acid 1000 [...] unspecified vessel or lesion type, unspecified whether upper [place] or transplanted heart (CMS/HCC) , Type 2 diabetes mellitus without complication, with long-term current use of insulin Take 1 tablet (81 mg) by mouth Daily 30 tablet 06/18/2024 06/18/2025 Active take 1 tablet by mouth once jean-pierre y Aspirin 81 81 MG 1 tablet Orally Once a day Active atorvastatin 20 mg oral tablet (20 sources) HMG-CoA Reductase Inhibitor Start: 01-14-2025 take 1 tablet by mouth once daily atorvastatin (Lipitor) 20 MG tablet Indications: Hypertensive heart disease with heart failure (CMS/HCC) TAKE 1 TABLET BY MOUTH EVERYDAY AT THE SAME TIME 90 tablet 1 01/14/2025 Active Start: 04-12-2019 take 1 tablet by libra th once daily atorvastatin (Lipitor) 20 MG tablet Indications: Hypertensive heart disease with heart failure (CMS/HCC) TAKE 1 TABLET BY MOUTH EVERYDAY AT THE SAME TIME 90 tablet 1 08/20/2024 Active take 1 tablet by libra th every twenty-four hours Atorvastatin Calcium 10 MG 1 tablet Orally Once a day Active baclofen 10 mg oral tablet (10 sources) gamma-Aminobutyric Acid-ergic Agonist Start: 01-06-2025 take 1 tablet by mouth in the morning baclofen (Lioresal) 10 MG tablet Take 10 mg by mouth in the morning and 10 mg before bedtime. 01/06/2025 Active carbidopa 25 mg / levodopa 100 mg oral tablet (20 sources) Aromatic Amino Acid Decarboxylation Inhibitor, Aromatic Amino Acid Start: 09-14-2024 carbidopa-levodopa (Sinemet) 25-100 MG tablet Indications: 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) TAKE 2 TABLET BY MOUTH AT 8AM, 2 tablet at NOON, 2 tablets at 3PM, AND 2 tablet at 6PM 240 tablet 3 12/29/2024 Active Start: 08-10-2024 carbidopa-levo dopa (Sinemet) 25-100 MG tablet Indications: 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) TAKE 1 TABLET BY MOUTH AT 8AM, NOON, 3PM AND 6PM 360 tablet 08/10/2024 Active Start: 06-15-2024 End: 09-14-2024 take 1 tablet by mouth four times daily Carbidopa-Levodopa (Sinemet) 25-100 mg tablet Discontinued 1 TAB PO Four times daily June 15, 2024 11:17am September 14, 2024 11:32am Start: 05-11-2024 carbidopa-levo dopa (Sinemet) 25-100 MG [...] 26, 2024 12:00am June 15, 2024 11:19am Continuous Glucose Hospice Administrator (FreeStyle Lillian [facility] [place]) device (5 sources) Start: 02-02-2024 End: 06-15-2024 Continuous Glucose Hospice Administrator (FreeStyle Lillian 2 [place]) device Indications: Type 2 diabetes mellitus without complication, with long-term current use of insulin (CMS/HCC) Dispense 1 reader device for every day use to check blood sugars E11.9 1 each 02/02/2024 06/15/2024 Discontinued (Therapy completed) Start: 02-02-2024 Continuous Glu cose Hospice Administrator (FreeStyle Lillian 2 [place]) device Indications: Type 2 diabetes mellitus without complication, with long-term current use of insulin (CMS/[facility]) Dispense 1 reader device for every day use to check blood sugars E11.9 1 each 02/02/2024 Active Continuous Glucose Sensor (FreeStyle Lillian 2 Sensor) [facility] (20 sources) Start: 06-30-2024 Continuous Glu cose Sensor (FreeStyle Lillian 2 Sensor) [facility] Indications: Type 2 diabetes mellitus with hyperglycemia, without long-term current use of insulin (CMS/HCC) , Type 2 diabetes mellitus with stage 3b chronic kidney disease, without long-term current use of insulin (HCC) (CMS/[facility]) 1 Units every 14 (fourteen) days 2 each 06/30/2024 Active Start: 04-19-2024 Continuous Glu cose Sensor (FreeStyle Lillian 2 Sensor) [facility] Indications: Type 2 diabetes mellitus with hyperglycemia, without long-term current use of insulin (CMS/HCC) 1 Units every 14 (fourteen) days 1 each 04/19/2024 Active Start: 02-02-2024 Continuous Glu cose Sensor (FreeStyle Lillian 2 Sensor) [facility] Indications: Type 2 diabetes mellitus with hyperglycemia, without long-term current use of insulin (CMS/HCC) , Type 2 diabetes mellitus with stage 3b chronic kidney disease, without long-term current use of insulin (HCC) (CMS/[facility]) 1 Units every 14 (fourteen) days 2 each 02/02/2024 Active CPAP Machine (1 source) CPAP Machine Act rosalva 24 hr dapagliflozin 10 mg / metFORMIN hydrochloride 500 mg extended release oral tablet (5 sources) Biguanide, Sodium-Glucose Cotransporter 2 Inhibitor Start: 025 dapagliflozin-metFO RMIN ER (Xigduo XR) 10-500 MG per 24 hr tablet 1 tablet docosahexaenoic acid 120 mg / eicosapentaenoic acid 180 mg oral capsule (20 sources) Start: 024 omega-3, EPA+DHA, (Super Social Circle-3) 1000 MG capsule 1 capsule 06/15/2024 Active Fish Oil-Cholecalciferol (FISH OIL + D3 PO) (2 sources) End: Fish Oil-Cholecalciferol (FISH OIL + D3 PO) [...] pen injector (20 sources) Insulin Analog Start: End: insulin glargine (Lantus SoloStar) 100 UNIT/ML pen Indications: Type 2 diabetes mellitus without complication, with long-term current use of insulin If blood sugar below 180 do not take. If blood sugar between 180 and 250 take 5 units. If blood sugar over 250 take 10 units. 15 mL 3 03/01/2025 03/01/2025 Discontinued Start: 03-01-2025 insulin glargi ne (Lantus SoloStar) 100 UNIT/ML pen Indications: Type 2 diabetes mellitus without complication, with long-term current use of insulin If blood sugar below 180 do not take. If blood sugar between 180 and 250 take 5 units. If blood sugar over 250 take 10 units. 15 mL 3 03/01/2025 Active Start: 12-20-2024 inject 100 [IU] by s ubcutaneous injection at bedtime Insulin Glargine (Lantus Solostar U-100 Insulin) 100 unit/mL (3 mL) insulin pen Active 10 UNIT SUBCUT Bedtime December 20, 2024 12:00am FreeTextSi to 12 units as directed Subcutaneous; Note: Source Status: Taking; Provider: Tate Jenkins ( ) Start: 03-24-2024 End: 03-01-2025 inject 10 [IU] by subcutaneous injection once daily at bedtime insulin glargine (Lantus SoloStar) 100 UNIT/ML pen Indications: Type 2 diabetes mellitus without complication, with long-term current use of insulin INJECT 10 UNITS UNDER THE SKIN EVERY DAY AT BEDTIME 15 mL 3 03/24/2024 03/01/2025 Discontinued (Reorder) Start: 02-24-2024 End: 12-20-2024 inject 100 [IU] by subcutaneous injection at bedtime Insulin Glargine (Lantus Solostar U-100 Insulin) 100 unit/mL (3 mL) insulin pen Discontinued 6 UNIT SUBCUT Bedtime 3 February 26, 2024 5:19pm December 20, 2024 10:51am FreeTextSi to 12 units as directed Subcutaneous; [...] sources) Angiotensin Converting Enzyme Inhibitor Start: 04-07-2024 End: 01-13-2025 take 1 tablet by mouth once daily lisinopril 5 MG tablet Indications: Essential (primary) hypertension (CMS/HCC) TAKE 1 TABLET BY MOUTH EVERY DAY 90 tablet 3 01/13/2025 Active Start: 05-16-2021 Lisinopril 10 MG Oral Tablet Quantity: 90 Refills: 0 Ordered: 12-Aug-2021 DO Start : 16-May-2021 Active Start: 06-04-2020 End: 06-15-2024 take 1 tablet by mouth once daily Lisinopril 20 mg tablet Discontinued 20 MG PO Daily June 04, 2020 12:00am June 15, 2024 11:18am 24 hr metFORMIN hydrochloride 500 mg extended release oral tablet (20 sources) Biguanide Start: 01-31-2025 End: 03-01-2025 take 2 tablets by mouth every twenty-four hours at bedtime metFORMIN XR (Glucophage-XR) 500 MG 24 hr tablet Indications: Type 2 diabetes mellitus without complication, with long-term current use of insulin TAKE 2 TABLETS BY MOUTH IN THE MORNING AND BEFORE BEDTIME*DO NOT CRUSH,CHEW,OR SPLIT* 180 tablet 1 01/31/2025 03/01/2025 Discontinued (Ineffective) Start: 10-04-2024 take 2 tablets by mo [facility] every twenty-four hours at bedtime metFORMIN XR (Glucophage-XR) 500 MG 24 hr tablet Indications: Type 2 diabetes mellitus without complication, with long-term current use of insulin TAKE 2 TABLETS BY MOUTH IN THE MORNING AND BEFORE BEDTIME*DO NOT CRUSH,CHEW,OR SPLIT* 180 tablet 1 10/04/2024 Active Start: 09-14-2024 take 1 tablet by libra twice daily Metformin 500 mg tablet extended release 24 hr Active 500 MG PO Twice daily September 14, 2024 11:30am Start: 06-18-2024 take 2 tablets by mo uth every twenty-four hours in the morning metFORMIN XR (Glucophage-XR) 500 MG 24 hr tablet Indications: Type 2 diabetes mellitus without complication, with long-term current use of insulin (CMS/HCC) Take 2 tablets (1,000 mg) by mouth in the morning and 2 tablets (1,000 mg) before bedtime. Do not crush, chew, or split.. 180 tablet 1 06/18/2024 Active Start: 06-18-2024 take 2 tablets by mo uth every twenty-four hours in the morning metFORMIN XR (Glucophage-XR) 500 MG 24 hr tablet Indications: Type 2 diabetes mellitus without complication, with long-term current use of insulin (CMS/HCC) Take 2 tablets (1,000 mg) by mouth in the morning and 2 tablets (1,000 mg) before bedtime. Do not crush, chew, or split.. 180 tablet 1 06/18/2024 Active Start: 06-15-2024 End: 09-14-2024 take 1 tablet by mouth once daily Metformin 500 mg tablet extended release 24 hr Discontinued 500 MG PO Daily June 15, 2024 11:17am September 14, 2024 11:32am Start: 06-01-2024 End: 06-15-2024 take 1 tablet by mouth every twenty-four hours Metformin 500 mg tablet extended release 24 hr Discontinued MG PO June 01, 2024 12:00am June 15, 2024 11:19am Start: 06-01-2024 End: 06-15-2024 Metformin Discontinued MG [...] oral tablet (20 sources) beta-Adrenergic Mckenna Start: 02-04-2025 take 1 tablet by mouth once daily metoprolol succinate XL (Toprol-XL) 25 MG 24 hr tablet Indications: Hypertensive heart disease with heart failure (CMS/HCC) Take 1 tablet (25 mg) by mouth Daily 90 tablet 3 02/04/2025 Active Start: 07-26-2022 take 1 tablet by libra th once daily metoprolol succinate XL (Toprol-XL) 25 MG 24 hr tablet Take 1 tablet by mouth 1 (one) time each day 07/26/2022 Active Start: 03-27-2021 take 1 tablet [...] 50+MEN PO) Take by mouth 06/07/2024 Discontinued [place] 5-Ttr-Pno-Fish Oil (Fish Oil) 1,000 mg (120 mg-180 mg) capsule (7 sources) Start: 06-15-2024 take 1 capsule by mouth once daily [place] 1-Vba-Syg-Fish Oil (Fish Oil) 1,000 mg (120 mg-180 mg) capsule Active 1 CAP PO Daily June 15, 2024 12:00am sildenafil 100 mg oral tablet (6 sources) Phosphodiesterase 5 Inhibitor Start: 03-01-2025 End: 03-01-2026 take 1 tablet by mouth once daily as needed sildenafil (Viagra) 100 MG tablet Indications: Erectile dysfunction, unspecified erectile dysfunction type Take 1 tablet (100 mg) by mouth Daily as needed for erectile dysfunction 12 tablet 5 03/01/2025 03/01/2026 Active Start: 01-24-2022 take 1 tablet by libra once daily as needed Sildenafil Citrate 100 MG Oral Tablet TAKE 1 TABLET BY MOUTH NEEDED ONCE DAILY Quantity: 30 Refills: 0 Ordered: 24-Jan-2022 DO Start : 24-Jan-2022 Complete tamsulosin hydrochloride 0.4 mg oral capsule (16 sources) alpha-Adrenergic Mckenna Start: 12-20-2024 take 1 capsule by mouth once daily Tamsulosin (Flomax) 0.4 mg capsule Active 0.4 MG PO Daily December 20, 2024 12:00am Start: 12-16-2024 take 1 capsule by mo [facility] every twenty-four hours at bedtime tamsulosin (Flomax) 0.4 MG 24 hr capsule Take 0.4 mg by mouth at bedtime 12/16/2024 Active terbinafine 250 mg oral tablet (20 sources) Allylamine Antifungal Start: 02-07-2025 take 1 tablet by mouth once daily terbinafine (LamISIL) 250 MG tablet Indications: Onychomycosis Take 1 tablet (250 mg) by mouth Daily 90 tablet 02/07/2025 Active Start: 04-19-2024 End: 02-03-2025 take 1 tablet by mouth once daily terbinafine (LamISIL) 250 MG tablet Indications: Onychomycosis TAKE 1 TABLET BY MOUTH EVERY DAY 90 tablet 08/26/2024 02/03/2025 Discontinued (Reorder) traMADol hydrochloride 50 mg oral tablet (20 sources) Opioid Agonist Start: 08-26-2024 End: 10-21-2024 take 1 tablet by mouth every eight hours for pain traMADol (Ultram) 50 MG tablet Indications: Myalgia Take 1 tablet (50 mg) by mouth every 8 (eight) hours if needed for severe pain 30 tablet 10/21/2024 Active Start: 06-07-2024 End: 07-19-2024 take 1 tablet by mouth every eight hours for pain traMADol (Ultram) 50 MG tablet Indications: Myalgia Take 1 tablet (50 mg) by mouth every 8 (eight) hours if needed for severe pain 30 tablet 06/07/2024 07/19/2024 Discontinued Start: 02-24-2024 End: 08-18-2024 take 1 tablet by mouth once daily as needed for pain Tramadol 50 mg tablet Active 50 MG PO Daily as needed for pain February 24, 2024 12:00am FreeTextSi tablet as [...] 15-Aug-2016 Active take 2 tablets by mo [facility] once daily acetaminophen (Tylenol) 500 MG tablet [...] Ordered: 28-Mar-2022 DO Start : 28-Mar-2022 Complete clopidogrel 75 mg oral tablet (20 sources) [id number] Platelet Inhibitor Start: 05-12-2012 End: 06-18-2024 take 1 tablet by mouth once daily Clopidogrel 75 mg tablet Discontinued 75 MG PO Daily June 04, 2020 12:00am June 15, 2024 12:00pm doxycycline monohydrate 100 mg oral tablet (20 sources) Tetracycline-class Drug Start: 02-24-2024 End: 02-26-2024 take 1 tablet by mouth twice daily Doxycycline Monohydrate 100 mg tablet Discontinued 100 MG PO Twice daily February 24, 2024 12:00am February 26, 2024 1:58pm started on 02/18/24 x7 days. Start: 10-17-2021 Doxycycline Hy clate 100 MG Oral Capsule Quantity: 10 Refills: 0 Ordered: 18-Oct-2021 DO Start : 17-Oct-2021 Complete Start: 06-04-2020 End: 02-06-2024 take 1 capsule by mouth twice daily Doxycycline Hyclate 100 mg capsule Discontinued 100 MG PO Twice daily June [...] Sulfonylurea Start: 04-07-2019 End: 02-26-2024 take 1 tablet by mouth once daily Glimepiride 1 mg tablet Discontinued 1 MG PO Daily June 04, [...] Bottle levothyroxine sodium 0.025 mg oral tablet (12 sources) l-Thyroxine Start: 06-04-2020 End: 02-06-2024 Levothyroxine 25 mcg tablet Discontinued TABLET June 04, 2020 12:00am February 06, 2024 2:19pm Start: 06-04-2020 End: 02-06-2024 Levothyroxine Discontinued T ABLET June 04, 2020 12:00am February 06, 2024 [...] Muscarinic Antagonist Start: 02-24-2024 End: 02-26-2024 take 1 tablet by mouth once daily Oxybutynin Chloride 10 mg tablet extended release 24hr Discontinued 10 MG PO Daily February 24, [...] Poli Mercado MD Start : 31-Aug-2012 Active Problems Active Problems Problem Classification Problem [...] kidney disease (HCC)] Onset: 05-15-2023 05-15-2023 Chronic Conduction disorders (20 sources) H/O: cardiac pacemaker in situ; Translations: [Presence of cardiac pacemaker] Onset: 06-18-2024 06-15-2024 Chronic Congestive heart failure; nonhypertensive (20 sources) Chronic systolic heart failure; Translations: [Chronic systolic (congestive) heart failure] Onset: 05-15-2023 Chronic Coronary atherosclerosis and other heart disease (20 sources) Coronary arteriosclerosis; Translations: [Coronary atherosclerosis of unspecified type of vessel, upper [place] or graft] Onset: 03-09-2015 06-15-2024 Chronic Delirium, dementia, and amnestic and other cognitive disorders (10 sources) Dementia; Translations: [Unspecified dementia without behavioral [...] Translations: [Unspecified essential hypertension] Onset: 03-09-2015 Chronic Fluid and electrolyte disorders (20 sources) Dehydration; Translations: [Dehydration] Onset: 02-25-2024 03-05-2024 Episodic Hyperplasia of prostate (20 sources) Benign [...] or meniscus of knee, current] Episodic Mycoses (5 sources) Onychomycosis; Translations: [Tinea unguium] 08-26-2024 Episodic Neoplasms of unspecified nature or uncertain behavior (2 sources) Neoplastic disease; Translations: [Neoplasm of unspecified behavior of bone, soft tissue, and skin] 02-01-2025 Episodic Nutritional deficiencies (20 sources) Vitamin D deficiency; Translations: [Unspecified vitamin D deficiency] Onset: 02-01-2024 02-01-2024 Chronic Osteoarthritis (20 sources) Degenerative joint disease involving multiple joints; Translations: [Polyosteoarthritis, unspecified] Onset: 02-01-2024 02-01-2024 Chronic Other circulatory disease (2 sources) Raynaud's disease; Translations: [Raynaud's syndrome without gangrene] 10-25-2024 Chronic Other circulatory disease (9 sources) Abnormal peripheral pulse; Translations: [Other specified symptoms and signs involving the circulatory and respiratory systems] 06-01-2024 Episodic Other circulatory disease (6 sources) Other specified symptoms and signs involving the circulatory and respiratory systems; Translations: [Other symptoms involving cardiovascular system] 06-01-2024 Episodic Other circulatory disease (2 sources) Spider nevus; Translations: [Nevus, non-neoplastic] 02-01-2025 Episodic Other connective tissue disease (20 sources) [...] site] 07-18-2024 Episodic Other connective tissue disease (2 sources) Pain in both feet; Translations: [Pain in right foot] 09-29-2024 Episodic Other diseases of veins and lymphatics (20 sources) Vascular insufficiency; Translations: [Venous (peripheral) insufficiency, unspecified] Episodic Other lower respiratory disease (20 sources) Snoring; Translations: [Other respiratory abnormalities] Episodic Other male genital disorders (2 sources) Male erectile dysfunction, unspecified; Translations: [Impotence of organic origin] 03-01-2025 Chronic Other male genital disorders (20 sources) H/O: [...] organs; Translations: [History of conjunctivitis] Episodic Other non-epithelial cancer of skin (2 sources) History of malignant neoplasm of skin; Translations: [Personal history of other malignant neoplasm of skin] 02-01-2025 Episodic Other nutritional; endocrine; and metabolic disorders [...] endocrine, metabolic, and immunity disorders] Episodic Other skin disorders (2 sources) Seborrheic keratosis; Translations: [Other seborrheic keratosis] 02-01-2025 Episodic Other skin disorders (2 sources) Lentiginosis; Translations: [Other melanin hyperpigmentation] 02-01-2025 Episodic Parkinson`s disease (1 source) Parkinson`s disease; Translations: [Parkinson's disease without dyskinesia, without mention of fluctuations] Onset: 02-25-2024 Peripheral and visceral atherosclerosis (20 sources) Peripheral vascular disease, unspecified; Translations: [PAD (peripheral artery disease)] Onset: 05-15-2023 06-01-2024 Chronic Residual codes; unclassified (20 sources) Obstructive sleep apnea syndrome; Translations: [Obstructive sleep apnea (adult)(pediatric)] Onset: 05-15-2023 06-28-2024 Chronic Comment on above: unable to tolerate c pap Residual codes; unclassified (1 source) Sleep apnea, unspecified; Translations: [Sleep apnea] Chronic Residual codes; unclassified (3 sources) Obstructive sleep apnea (adult) (pediatric); Translations: [Obstructive sleep apnea (adult)(pediatric)] Onset: 01-03-2025 Chronic Residual codes; unclassified (1 source) Family history of malignant neoplasm of digestive organs; Translations: [Family history of colon cancer] Episodic Residual codes; unclassified (5 sources) Other specified health status; Translations: [Other specified conditions influencing health status] Episodic Residual codes; unclassified (9 sources) Altered mental status; Translations: [Altered mental status, unspecified] 03-05-2024 Episodic Skin and subcutaneous tissue infections (12 sources) Cellulitis; Translations: [Cellulitis, unspecified] 06-04-2020 Episodic Comment on above: Problem List clean-u p per request of Phys. EHR Cmte Spondylosis; intervertebral disc disorders; other back problems (20 sources) Spondylosis without myelopathy or radiculopathy, lumbosacral region; Translations: [Other spondylosis, sacral and sacrococcygeal region] Onset: 02-28-2022 Chronic Spondylosis; intervertebral disc disorders; other back problems (18 sources) Spinal stenosis, site unspecified; Translations: [Radiculopathy, lumbar region] Onset: 05-23-2022 Episodic Thyroid disorders (20 sources) Hypothyroidism; Translations: [Hypothyroidism, unspecified] Onset: 05-15-2023 05-15-2023 Chronic Unclassified (17 sources) Parkinson's disease; Translations: [Parkinson's disease] 03-05-2024 Chronic Unclassified (20 sources) Parkinsonism; Translations: [Parkinsonism] Onset: 03-01-2024 03-01-2024 Chronic Unclassified (4 sources) LOW BACK PAIN, UNSPECIFIED; Translations: [LOW BACK PAIN, UNSPECIFIED] Onset: 03-06-2022 Unclassified (2 sources) Complication of ventilation therapy; Translations: [Intolerance of noninvasive positive pressure therapy] 06-28-2024 Past or Other Problems Problem Classification Problem Date Documented Da te Episodic/Chronic Complications of surgical procedures or medical care (20 sources) Complication of ventilation therapy; Translations: [Complication of inhalation therapy, initial encounter] Onset: 08-07-2024 08-07-2024 Episodic Coronary atherosclerosis and other heart disease (20 sources) Patient post percutaneous transluminal coronary angioplasty; Translations: [Coronary angioplasty status] Onset: 03-09-2015 06-15-2024 Episodic Heart valve disorders (1 source) Cardiac murmur, unspecified; Translations: [Cardiac murmur, unspecified] Onset: 10-04-2024 Episodic Mood disorders (20 sources) Mood disorders Onset: 11-03-2023 Resolved: 03-01-2025 11-03-2023 Other connective tissue disease (1 source) Muscle wasting and atrophy, not elsewhere classified, unspecified site; Translations: [MUSCLE WASTING ATROPHY NEC UNS SITE] Onset: 05-27-2022 Episodic Other eye disorders (1 source) Myogenic ptosis of unspecified eyelid; Translations: [Myogenic ptosis of unspecified eyelid] Onset: 09-16-2024 Episodic Other lower respiratory disease (1 source) Shortness of breath; Translations: [Shortness of breath] Onset: 10-04-2024 Episodic Other screening for suspected conditions (not [...] Test Name Value Interpretation Reference Range Facility No Panel Informationon 02-01 Type of biopsy: tangential Informed consent: discussed and consent obtained Informed consent comment: The risks and benefits of the biopsy were discussed. Risks include but are not limited to bleeding, infection, scarring, pain, and nerve damage. An opportunity to ask questions prior to the procedure was permitted and all questions were answered. Patient was prepped and draped in usual sterile fashion: area cleansed with alcohol. Anesthesia: the lesion was anesthetized in a standard fashion Anesthetic: 1% lidocaine w/ epinephrine 1-100,000 buffered w/ 8.4% NaHCO3 Instrument used: DermaBlade Hemostasis achieved with: electrodesiccation Outcome: patient tolerated procedure well Outcome comment: The specimen was placed in a prelabeled formalin container to be sent for pathology Post-procedure details: sterile dressing applied and wound care instructions given Post-procedure details comment: Emphasized need to contact clinic for any signs of infection, uncontrollable bleeding, or complications. Dressing type: bandage Additional details: Photo taken Amount of lidocaine used: 1.0 cc [facility] Arterial blood standard base excess determination by calculationOrdered By: Sunny Vasquez on 01-03-2025 Base excess standard Calc (BldA) [Moles/Vol] Arterial blood standard base excess determination by calculation Low -2-3 [facility] Basic Metabolic Panelon 12-12 Anion gap [Moles/Vol] 12.3 mmol/L Normal 6.0-15.0 [facility] Comment on above: Performed By: #### B DANISH, K #### [address] Calcium [Mass/Vol] 8.9 mg/dL Normal 8.6-10.3 [facility] Comment on above: Performed By: #### Rao PENG, K #### [address] Chloride [Moles/Vol] 110 mmol/L High 98-107 [facility] Comment on above: Performed By: #### Rao PENG, K #### [address] CO2 [Moles/Vol] 22.6 mmol/L Normal 21.0-31.0 [facility] Comment on above: Performed By: #### B DANISH, K #### [address] Creatinine [Mass/Vol] 1.66 mg/dL High 0.70-1.30 [facility] Comment on above: Performed By: #### Rao PENG, K #### [place] [address] [place] Creatinine Clr Calc Pharmacy 37.41 Normal [facility] Comment on above: Result Comment: PERF ORMED BY: [place] [address] PATHOLOGIST TRAFFIC ATTENDANT GEOFFREY VARGAS M.D. Performed By: #### B DANISH, K #### [place] [address] [place] Estimated GFR 41.675 mL/Min Normal [facility] Comment on above: Performed By: #### B DANISH, K #### [facility] [address] Glucose [Mass/Vol] 183 mg/dL High 70-100 [facility] Comment on above: Result Comment: [place] Glucose Reference Range is dependent on time and content of last meal. Glucose of more than 200 mg/dL in a nonstressed, ambulatory subject supports the diagnosis of Diabetes Mellitus. ADA recommended reference range Performed By: #### B DANISH, K #### [facility] [address] Sodium [Moles/Vol] 139 mmol/L Normal 136-145 [facility] Comment on above: Performed By: #### B DANISH, K #### [facility] [address] Urea nitrogen [Mass/Vol] 54 mg/dL High 7-25 [facility] Comment on above: Performed By: #### B DANISH, K #### [facility] [address] Blood carbon dioxide, total measurement by calculation (moles/volume)Ordered By: Sunny Vasquez on 01-03-2025 CO2 Calc (Bld) [Moles/Vol] Blood carbon dioxide, total measurement by calculation (moles/volume) 23- [facility] Calcium [Mass/volume] in Ser um or PlasmaOrdered By: LILI VALADEZ on 01-03-2025 Calcium [Mass/Vol] Calcium [Mass/volume ] in Serum or Plasma 8.6-10.3 [facility] Carbon dioxide WBOrdered By: Sunny Vasquez on 01-03-2025 Basophil percentage Basophil percentage Low 80-105 [facility] Carbon dioxide, total [Moles /volume] in Serum or PlasmaOrdered By: LILI VALADEZ on 01-03-2025 CO2 [Moles/Vol] Carbon dioxide, tota l [Moles/volume] in Serum or Plasma 21.0-31.0 [facility] Chloride [Moles/volume] in S renee or PlasmaOrdered By: LILI VALADEZ on 01-03-2025 Chloride [Moles/Vol] Chloride [Moles/volume] in Serum or Plasma High 98-107 [facility] Creatinine [Mass/volume] in Serum or PlasmaOrdered By: LILI VALADEZ on 01-03-2025 Creatinine [Mass/Vol] Creatinine [Mass/volume] in Serum or Plasma High 0.70-1.30 [facility] ECG 12 lead ECGon 01-03-2025 ECG 12 lead ECG [facility] [address] Electrocardiograph Report Signed Patient: Ramon Cruz MR#: [id number] : 1945 Acct:[id number] Age/Sex: 79 / M ADM Date: 01/03/25 Loc: [place] Room: Type: [facility] Attending Dr: Sunny Vasquez DO Ordering Provider: LILI VALADEZ DO Date of Service: 01/03/25 ECG/ECG 12 lead ECG: elevated K+ Copies to: Test Reason : Blood Pressure : */* mmHG Vent. Rate : 60 BPM Atrial Rate : 60 BPM P-R Int : 260 ms QRS Dur : 136 ms QT Int : 402 ms P-R-T Axes : * -58 105 degrees QTcB Int : 402 ms Atrial-paced rhythm with prolonged AV conduction Left bundle branch block Abnormal ECG When compared with ECG of 20-Dec-2024 10:35, No significant change was found Confirmed by ROMAINE WU [facility] ([id number][facility] on 01/03/2025 11:53:16 AM Referred By: Electronically Signed By: DARLENE GAVIN MD [facility] Transcribed By: MUS Signed By Darlene Gavin MD, FAC 01/03/25 1153 Normal [facility] Glucose Glucometer (BldC) [M ass/Vol]Ordered By: Sunny Vasquez on 01-03-2025 Glucose [Mass/Vol] Capillary blood glucose measurement by glucometer (mass/volume) High 70-105 [facility] Glucose [Mass/Vol] Capillary blood glucose measurement by glucometer (mass/volume) [facility] Comment on above: Random Glucose Refer ence Range is dependent on time and content of last meal. Glucose of more than 200 mg/dL in a nonstressed, ambulatory subject supports the diagnosis of Diabetes Mellitus. Glucose Poct Glucometerson 0 01-03-2025 Commemt1 Glu2: Cleaned Meter Normal [facility] Comment on above: Result Comment: PERF ORMED BY: [place] [address] PATHOLOGIST TRAFFIC ATTENDANT GEOFFREY VARGAS M.D. Performed By: #### G LULS #### Point of Care testing , Glucose [Mass/Vol] 178 mg/dL Normal [facility] Comment on above: Result Comment: [place] Glucose Reference Range is dependent on time and content of last meal. Glucose of more than 200 mg/dL in a nonstressed, ambulatory subject supports the diagnosis of Diabetes Mellitus. Performed By: #### G LULS #### Point of Care testing , Glucose [Mass/volume] in Ser um or PlasmaOrdered By: LILI VALADEZ on 01-03-2025 Glucose [Mass/Vol] Glucose [Mass/volume ] in Serum or Plasma High 70-100 [facility] Comment on above: ADA recommended refe rence rangeRandom Glucose Reference Range is dependent on time and content of last meal. Glucose of more than 200 mg/dL in a nonstressed, ambulatory subject supports the diagnosis of Diabetes Mellitus. Hemoglobin Calc (Bld) [Mass/ Vol]Ordered By: Sunny Vasquez on 01-03-2025 Hemoglobin (Bld) [Mass/Vol] Blood hemoglobin measurement by calculation (mass/volume) Low 12.0-17.0 [facility] ISTAT ABGon 01-03-2025 CO2 [Moles/Vol] 23 mmol/L Normal 23-29 [facility] Comment on above: Performed By: #### I SABG #### [address] Glucose [Mass/Vol] 174 mg/dL High 70-105 [facility] Comment on above: Result Comment: PERF ORMED BY: [address] [address] PATHOLOGIST TRAFFIC ATTENDANT GEOFFREY VARGAS M.D. Performed By: #### I SABG #### [address] HCO3 (Bld) [Moles/Vol] 22.2 mmol/L Normal 22.0-28.0 [facility] Comment on above: Performed By: #### I SABG #### [address] Hemoglobin (Bld) [Mass/Vol] 11.6 g/dL Low 12.0-17.0 [facility] Comment on above: Performed By: #### I SABG #### [address] ISTAT Base Excess -3 mmol/L Low -2 TO 3 [facility] Comment on above: Performed By: #### I SABG #### [address] ISTAT Ionized Calcium 1.24 mol/L Normal 1.12-1.32 [facility] Comment on above: Performed By: #### I SABG #### [address] ISTAT PCO2 38.9 mm[Hg] Normal 35-51 [facility] Comment on above: Performed By: #### I SABG #### [address] ISTAT Ph 7.364 Normal 7.31-7.45 [facility] Comment on above: Performed By: #### I SABG #### [address] ISTAT PO2 49 mm[Hg] Low 80-105 [facility] Comment on above: Performed By: #### I SABG #### [address] Oxygen saturation in Blood 83 % Low 95-98 [facility] Comment on above: Result Comment: Refe rence ranges reflect baseline specimens only Performed By: #### I SABG #### [address] Potassium [Moles/Vol] 6.2 mmol/L Off scale high 3.5-4.9 [facility] Comment on above: Performed By: #### I SABG #### [address] Sodium [Moles/Vol] 139 mmol/L Normal 138-146 [facility] Comment on above: Performed By: #### I SABG #### [facility] [address] [place] [address] ISTAT ABGOrdered By: Yaneth Vasquez on 01-03-2025 Hematocrit (Bld) [Volume fraction] 34.0 % Low 38.0-51.0 [facility] Comment on above: Performed By: #### I SABG #### [address] No Panel InformationOrdered By: LILI VALADEZ on 01-03-2025 Estimated GFR (CKD-EPI) 41.675 mL/Min [facility] Creatinine Clearance (Chem 37.41 [facility] No Panel InformationOrdered By: Sunny Vasquez on 01-03-2025 Bedside Glucose Comment Glu2: cleaned meter [facility] Potassiumon 01-03-2025 Potassium [Moles/Vol] 5.9 mmol/L High 3.5-5.1 [facility] Comment on above: Result Comment: PERF ORMED BY: [place] [address] PATHOLOGIST TRAFFIC ATTENDANT GEOFFREY VARGAS M.D. Performed By: #### B MP, K #### [address] Potassium (Bld) [Moles/Vol]O rdered By: Sunny Vasquez on 01-03-2025 Potassium [Moles/Vol] Whole blood potass ium measurement Critically high 3.5-4.9 [facility] Potassium [Moles/volume] in Serum or PlasmaOrdered By: LILI VALADEZ on 01-03-2025 Potassium [Moles/Vol] Potassium [Moles/volume] in Serum or Plasma High 3.5-5.1 [facility] Serum or plasma anion gap de terminationOrdered By: LILI VALADEZ on 01-03-2025 Anion gap [Moles/Vol] Serum or plasma an ion gap determination 6.0-15.0 [facility] Sodium (Bld) [Moles/Vol]Orde red By: Sunny Vasquez on 01-03-2025 Sodium [Moles/Vol] Whole blood sodium measurement 138-146 [facility] Sodium [Moles/volume] in Ser um or PlasmaOrdered By: LILI VALADEZ on 01-03-2025 Sodium [Moles/Vol] Sodium [Moles/volume ] in Serum or Plasma 136-145 [facility] Urea nitrogen [Mass/volume] in Serum or PlasmaOrdered By: LILI VALADEZ on 01-03-2025 Urea nitrogen [Mass/Vol] Urea nitrogen [Mass/volume] in Serum or Plasma High 7-25 [facility] Whole blood bicarbonate jerardo urementOrdered By: Sunny Vasquez on 01-03-2025 HCO3 (Bld) [Moles/Vol] Whole blood bicarbonate measurement 22.0-28.0 [facility] Whole blood ionized calcium measurement (moles/volume)Ordered By: Sunny Vasquez on 01-03-2025 Calcium.ionized (Bld) [Moles/Vol] Whole blood ionized calcium measurement (moles/volume) 1.12-1.32 [facility] Whole blood oxygen saturatio n measurementOrdered By: Sunny Vasquez on 01-03-2025 Oxygen saturation in Blood Whole blood oxygen saturation measurement Low 95-98 [facility] Comment on above: Reference ranges ref lect baseline specimens only Whole blood pHOrdered By: Gustavo Vasquez on 01-03-2025 pH (Bld) Whole blood pH 7.31-7.45 [facility] Basic Metabolic Panelon 12-11 Anion gap [Moles/Vol] 9.9 mmol/L Normal 6.0-15.0 [facility] Comment on above: Performed By: #### B MP, CBC #### [address] Calcium [Mass/Vol] 8.9 mg/dL Normal 8.6-10.3 [facility] Comment on above: Result Comment: PERF ORMED BY: [place] [address] PATHOLOGIST TRAFFIC ATTENDANT GEOFFREY VARGAS M.D. Performed By: #### B MP, CBC #### [place] [address] [place] Chloride [Moles/Vol] 107 mmol/L Normal 98-107 [facility] Comment on above: Performed By: #### B MP, CBC #### [place] [address] [place] CO2 [Moles/Vol] 26.4 mmol/L Normal 21.0-31.0 [facility] Comment on above: Performed By: #### B MP, CBC #### [address] Creatinine [Mass/Vol] 1.39 mg/dL High 0.70-1.30 [facility] Comment on above: Performed By: #### B MP, CBC #### [address] Estimated GFR 51.568 mL/Min Normal [facility] Comment on above: Performed By: #### B MP, CBC #### [address] Glucose [Mass/Vol] 214 mg/dL High 70-100 [facility] Comment on above: Result Comment: [place] Glucose Reference Range is dependent on time and content of last meal. Glucose of more than 200 mg/dL in a nonstressed, ambulatory subject supports the diagnosis of Diabetes Mellitus. ADA recommended reference range Performed By: #### B MP, CBC #### [place] [address] [place] Potassium [Moles/Vol] 5.3 mmol/L High 3.5-5.1 [facility] Comment on above: Performed By: #### B MP, CBC #### [place] [address] [place] Sodium [Moles/Vol] 138 mmol/L Normal 136-145 [facility] Comment on above: Performed By: #### B MP, CBC #### [place] [address] [place] Urea nitrogen [Mass/Vol] 49 mg/dL High 7-25 [facility] Comment on above: Performed By: #### B MP, CBC #### [facility] [address] Basophils Auto (Bld) [#/Vol] Ordered By: Sunny Vasquez on 12-20-2024 Basophils (Bld) [#/Vol] Automated basoph il count 0.0-0.2 [facility] Basophils/100 WBC Auto (Bld) Ordered By: Sunny Vasquez on 12-20-2024 Basophils/100 WBC (Bld) Automated basophil % . [facility] Calcium [Mass/volume] in Ser um or PlasmaOrdered By: Sunny Vasquez on 12-20-2024 Calcium [Mass/Vol] Calcium [Mass/volume ] in Serum or Plasma 8.6-10.3 [facility] Carbon dioxide, total [Moles /volume] in Serum or PlasmaOrdered By: Sunny Vasquez on 12-20-2024 CO2 [Moles/Vol] Carbon dioxide, tota l [Moles/volume] in Serum or Plasma 21.0-31.0 [facility] Chloride [Moles/volume] in S renee or PlasmaOrdered By: Sunny Vasquez on 12-20-2024 Chloride [Moles/Vol] Chloride [Moles/volume] in Serum or Plasma 98-107 [facility] Complete Blood Count Auto Di ffon 12-20-2024 Basophils (Bld) [#/Vol] 0.0 10*3/uL Normal 0.0-0.2 [facility] Comment on above: Result Comment: PERF ORMED BY: [place] [address] PATHOLOGIST TRAFFIC ATTENDANT GEOFFREY VARGAS M.D. Performed By: #### B MP, CBC #### [address] Basophils/100 WBC (Bld) 0.4 % Normal . [facility] Comment on above: Performed By: #### B MP, CBC #### [facility] [address] [place] [address] Eosinophils (Bld) [#/Vol] 0.2 10*3/uL Normal 0.0-0.45 [facility] Comment on above: Performed By: #### B MP, CBC #### [address] Eosinophils/100 WBC (Bld) 2.9 % Normal . [facility] Comment on above: Performed By: #### B MP, CBC #### [address] Erythrocyte distribution width (RBC) [Ratio] 15.3 % High 12.0-14.8 [facility] Comment on above: Performed By: #### B MP, CBC #### [address] Hematocrit (Bld) [Volume fraction] 36.2 % Low 38.8-50.0 [facility] Comment on above: Performed By: #### B MP, CBC #### [address] Hemoglobin (Bld) [Mass/Vol] 12.0 g/dL Low 13.0-17.0 [facility] Comment on above: Performed By: #### B MP, CBC #### [address] Lymphocytes (Bld) [#/Vol] 1.6 10*3/uL Normal 1.00-4.8 [facility] Comment on above: Performed By: #### B MP, CBC #### [address] Lymphocytes/100 WBC (Bld) 18.9 % Normal . [facility] Comment on above: Performed By: #### B MP, CBC #### [address] MCH (RBC) [Entitic mass] 29.6 pg Normal 27.5-35.2 [facility] Comment on above: Performed By: #### B MP, CBC #### [address] MCV (RBC) [Entitic vol] 89.1 fL Normal 83.5-101 [facility] Comment on above: Performed By: #### B MP, CBC #### [address] Mean Corpuscular HGB Conc 33.2 g/dL Normal 32.5-35.6 [facility] Comment on above: Performed By: #### B MP, CBC #### [address] Monocytes (Bld) [#/Vol] 0.5 10*3/uL Normal 0.0-0.8 [facility] Comment on above: Performed By: #### B MP, CBC #### [address] Monocytes/100 WBC (Bld) 6.1 % Normal . [facility] Comment on above: Performed By: #### B MP, CBC #### [address] Neutrophils (Bld) [#/Vol] 6.0 10*3/uL Normal 1.8-7.7 [facility] Comment on above: Performed By: #### B MP, CBC #### [address] Neutrophils/100 WBC (Bld) 71.7 % Normal . [facility] Comment on above: Performed By: #### B MP, CBC #### [address] NRBC% 0.0 /100{WBC} Normal 0-0.5 [facility] Comment on above: Performed By: #### B MP, CBC #### [address] Platelet mean volume (Bld) [Entitic vol] 8.7 fL Normal 6.6-10.1 [facility] Comment on above: Performed By: #### B MP, CBC #### [address] Platelets (Bld) [#/Vol] 211 10*3/uL Normal 150-450 [facility] Comment on above: Performed By: #### B MP, CBC #### [address] RBC (Bld) [#/Vol] 4.06 10*6/uL Normal 3.90-5.60 [facility] Comment on above: Performed By: #### B MP, CBC #### [facility] [address] WBC (Bld) [#/Vol] 8.4 10*3/uL Normal 4.1-10.5 [facility] Comment on above: Performed By: #### B MP, CBC #### [address] Creatinine [Mass/volume] in Serum or PlasmaOrdered By: Sunny Vasquez on 12-20-2024 Creatinine [Mass/Vol] Creatinine [Mass/volume] in Serum or Plasma High 0.70-1.30 [facility] ECG 12 lead ECGon 12-20-2024 ECG 12 lead ECG [facility] [place] [address] [place] [address] Electrocardiograph Report Signed Patient: Ramon Cruz MR#: [id number] : 1945 Acct:[id number] Age/Sex: 79 / M ADM Date: 12/20/24 Loc: Room: Type: [facility] Attending Dr: Sunny Vasquez DO Ordering Provider: Sunny Vasquez DO Date of Service: 12/20/2408/06/1016 ECG/ECG 12 lead ECG: surgery 01/03 Copies to: Test Reason : Blood Pressure : */* mmHG Vent. Rate : 60 BPM Atrial Rate : 60 BPM P-R Int : 216 ms QRS Dur : 140 ms QT Int : 422 ms P-R-T Axes : * -69 115 degrees QTcB Int : 422 ms Atrial-paced rhythm with prolonged AV conduction Left bundle branch block Abnormal ECG Confirmed by Tom Conde ([id number]) on 12/20/2024 4:19:47 PM Referred By: Electronically Signed By: Tom Conde Transcribed By: MUS Signed By Tom Conde MD 12/20/24 1619 Normal [facility] Eosinophils Auto (Bld) [#/Vo l]Ordered By: Sunny Vasquez on 12-20-2024 Eosinophils (Bld) [#/Vol] Automated eosinophil count 0.0-0.45 [facility] Eosinophils/100 WBC Auto (Bl d)Ordered By: Sunny Vasquez on 12-20-2024 Eosinophils/100 WBC (Bld) Automated eosinophil % . [facility] Erythrocyte distribution wid th Auto (RBC) [Ratio]Ordered By: Sunny Vasquez on 12-20-2024 Erythrocyte distribution width (RBC) [Ratio] Erythrocyte distribution width [Ratio] by Automated count High 12.0-14.8 [facility] Glucose [Mass/volume] in Ser um or PlasmaOrdered By: Sunny Vasquez on 12-20-2024 Glucose [Mass/Vol] Glucose [Mass/volume ] in Serum or Plasma High 70-100 [facility] Comment on above: ADA recommended refe rence rangeRandom Glucose Reference Range is dependent on time and content of last meal. Glucose of more than 200 mg/dL in a nonstressed, ambulatory subject supports the diagnosis of Diabetes Mellitus. Hematocrit Auto (Bld) [Volum e fraction]Ordered By: Sunny Vasquez on 12-20-2024 Hematocrit (Bld) [Volume fraction] Hematocrit [Volume Fraction] of Blood by Automated count Low 38.8-50.0 [facility] Hemoglobin [Mass/volume] in BloodOrdered By: Sunny Vasquez on 12-20-2024 Hemoglobin (Bld) [Mass/Vol] Hemoglobin [Mass/volume] in Blood Low 13.0-17.0 [facility] Leukocytes [#/volume] correc phil for nucleated erythrocytes in Blood by Automated counOrdered By: Sunny Vasquez on 12-20-2024 WBC corrected for nucl RBC Auto (Bld) [#/Vol] Leukocytes [#/volume] corrected for nucleated erythrocytes in Blood by Automated coun 4.1-10.5 [facility] Lymphocytes Auto (Bld) [#/Vo l]Ordered By: Sunny Vasquez on 12-20-2024 Lymphocytes (Bld) [#/Vol] Lymphocytes [#/volume] in Blood by Automated count 1.00-4.8 [facility] Lymphocytes/100 WBC Auto (Bl d)Ordered By: Sunny Vasquez on 12-20-2024 Lymphocytes/100 WBC (Bld) Lymphocytes/100 leukocytes in Blood by Automated count . [facility] MCH Auto (RBC) [Entitic mass ]Ordered By: Sunny Vasquez on 12-20-2024 MCH (RBC) [Entitic mass] MCH [Entitic mass] by Automated count 27.5-35.2 [facility] MCHC Auto (RBC) [Mass/Vol]Or dered By: Sunny Vasquez on 12-20-2024 MCHC (RBC) [Mass/Vol] MCHC [Mass/volume] by Automated count 32.5-35.6 [facility] MCV Auto (RBC) [Entitic vol] Ordered By: Sunny Vasquez on 12-20-2024 MCV (RBC) [Entitic vol] MCV [Entitic vol ume] by Automated count 83.5-101 [facility] Monocytes Auto (Bld) [#/Vol] Ordered By: Sunny Vasquez on 12-20-2024 Monocytes (Bld) [#/Vol] Automated blood monocyte count 0.0-0.8 [facility] Monocytes/100 WBC Auto (Bld) Ordered By: Sunny Vasquez on 12-20-2024 Monocytes/100 WBC (Bld) Automated monocyte % . [facility] Neutrophils Auto (Bld) [#/Vo l]Ordered By: Sunny Vasquez on 12-20-2024 Neutrophils (Bld) [#/Vol] Neutrophils [#/volume] in Blood by Automated count 1.8-7.7 [facility] Neutrophils/100 WBC Auto (Bl d)Ordered By: Sunny Vasquez on 12-20-2024 Neutrophils/100 WBC (Bld) Automated neutrophil % . [facility] No Panel InformationOrdered By: Sunny Vasquez on 12-20-2024 Estimated GFR (CKD-EPI) 51.568 mL/Min [facility] Creatinine Clearance (Chem N/A [facility] Nucleated erythrocytes [Pres ence] in Blood by Automated countOrdered By: Sunny Vasquez on 12-20-2024 Nucleated RBC Auto Ql (Bld) Nucleated erythrocytes [Presence] in Blood by Automated count 0-0.5 [facility] Platelet mean volume Auto (B ld) [Entitic vol]Ordered By: Sunny Vasquez on 12-20-2024 Platelet mean volume (Bld) [Entitic vol] Platelet mean volume [Entitic volume] in Blood by Automated count 6.6-10.1 [facility] Platelets Auto (Bld) [#/Vol] Ordered By: Sunny Vasquez on 12-20-2024 Platelets (Bld) [#/Vol] Platelets [#/vol ume] in Blood by Automated count 150-450 [facility] Potassium [Moles/volume] in Serum or PlasmaOrdered By: Sunny Vasquez on 12-20-2024 Potassium [Moles/Vol] Potassium [Moles/volume] in Serum or Plasma High 3.5-5.1 [facility] RBC Auto (Bld) [#/Vol]Ordere d By: Sunny Vasquez on 12-20-2024 RBC (Bld) [#/Vol] Erythrocytes [#/volume] in Blood by Automated count 3.90-5.60 [facility] Serum or plasma anion gap de terminationOrdered By: Sunny Vasquez on 12-20-2024 Anion gap [Moles/Vol] Serum or plasma an ion gap determination 6.0-15.0 [facility] Sodium [Moles/volume] in Ser um or PlasmaOrdered By: Sunny Vasquez on 12-20-2024 Sodium [Moles/Vol] Sodium [Moles/volume ] in Serum or Plasma 136-145 [facility] Urea nitrogen [Mass/volume] in Serum or PlasmaOrdered By: Sunny Vasquez on 12-20-2024 Urea nitrogen [Mass/Vol] Urea nitrogen [Mass/volume] in Serum or Plasma High 7-25 [facility] WBC Auto (Bld) [#/Vol]Ordere d By: Sunny Vasquez on 12-20-2024 WBC (Bld) [#/Vol] Leukocytes [#/volume ] in Blood by Automated count 4.1-10.[address] [facility] [address] LUNG SCREENING LOW DOSEon 11-22-2024 CT [...] BY: Roe Garcia MD Normal Not Available [facility] echo transthoracicon [facility] echo transthoracic [facility] [place] [address] [place] [address] Echocardiogram Signed Patient: Ramon Cruz MR#: [id number] : 1945 Acct:[id number] Age/Sex: 79 / M ADM Date: 10/04/24 Loc: Room: Type: [facility] Attending Dr: Tom Conde MD Ordering Provider: Tom Conde MD Date of Service: 10/04/24 [facility] echo transthoracic: R06.02 - Shortness of breath Copies to: MD Darlene Baca MD, [facility] Weight: 190 lb Performed By: BRENDA Batista BSA: 2.0 m2 BP: 152/73 mmHg HR: 54 Reason For Study: R06.02 - Shortness of breath History: [place], DM, former smoker, pacemaker, family history of [...] V2 VTI: 46.4 cm SHON(I,D): 1.8 cm2 SOHN(V,D): 1.9 cm2 Measurements from QLAB CI (HM): ED Mass (HM): LAEF (HM): 60.0 % BSA (HM): 2.0 m2 213.0 grams 3.2 l/min/m2 __ MAGALIS (HM): LAVmax (HM): LAVmin (HM): 35.0 mlPat Height (HM): 45.0 ml/m2 88.0 ml 170.0 cm __ Pat Weight (HM): 86.2 kg QLAB Heart Model EDV (HM)_phl: 194.0 ml EF (HM)_phl: 53.0 % ED Current (HM)_phl: 60.0 % ESV (HM)_phl: 91.0 ml HR (HM)_phl: 61.0 BPMES Current (HM)_phl: 30.0 % LV Length ED (HM)_phl: 98.0 mmSV (HM)_phl: 103.0 mlED Default (HM)_phl: 60.0 % LV Length ES (HM (more content not included)... Normal [facility] Complete Blood Count Auto Di ffon 09-16-2024 Basophils (Bld) [#/Vol] 0.1 10*3/uL Normal 0.0-0.2 [facility] Comment on above: Result Comment: PERF ORMED BY: [facility] [address] [place] [address] PATHOLOGIST TRAFFIC ATTENDANT GEOFFREY VARGAS M.D. Performed By: #### G LULS #### Point of Care testing , Basophils/100 WBC (Bld) 0.7 % Normal . [facility] Comment on above: Performed By: #### G LULS #### Point of Care testing , Eosinophils (Bld) [#/Vol] 0.3 10*3/uL Normal 0.0-0.45 [facility] Comment on above: Performed By: #### G LULS #### Point of Care testing , Eosinophils/100 WBC (Bld) 3.7 % Normal . [facility] Comment on above: Performed By: #### G LULS #### Point of Care testing , Erythrocyte distribution width (RBC) [Ratio] 14.3 % Normal 12.0-14.8 [facility] Comment on above: Performed By: #### G LULS #### Point of Care testing , Hematocrit (Bld) [Volume fraction] 36.8 % Low 38.8-50.0 [facility] Comment on above: Performed By: #### G LULS #### Point of Care testing , Hemoglobin (Bld) [Mass/Vol] 12.1 g/dL Low 13.0-17.0 [facility] Comment on above: Performed By: #### G LULS #### Point of Care testing , Lymphocytes (Bld) [#/Vol] 2.5 10*3/uL Normal 1.00-4.8 [facility] Comment on above: Performed By: #### G LULS #### Point of Care testing , Lymphocytes/100 WBC (Bld) 26.8 % Normal . [facility] Comment on above: Performed By: #### G LULS #### Point of Care testing , MCH (RBC) [Entitic mass] 29.1 pg Normal 27.5-35.2 [facility] Comment on above: Performed By: #### G LULS #### Point of Care testing , MCV (RBC) [Entitic vol] 88.7 fL Normal 83.5-101 [facility] Comment on above: Performed By: #### G LULS #### Point of Care testing , Mean Corpuscular HGB Conc 32.9 g/dL Normal 32.5-35.6 [facility] Comment on above: Performed By: #### G LULS #### Point of Care testing , Monocytes (Bld) [#/Vol] 0.8 10*3/uL Normal 0.0-0.8 [facility] Comment on above: Performed By: #### G LULS #### Point of Care testing , Monocytes/100 WBC (Bld) 8.2 % Normal . T [facility] Comment on above: Performed By: #### G LULS #### Point of Care testing , Neutrophils (Bld) [#/Vol] 5.7 10*3/uL Normal 1.8-7.7 [facility] Comment on above: Performed By: #### G LULS #### Point of Care testing , Neutrophils/100 WBC (Bld) 60.6 % Normal . [facility] Comment on above: Performed By: #### G LULS #### Point of Care testing , NRBC% 0.0 /100{WBC} Normal 0-0.5 [facility] Comment on above: Performed By: #### G LULS #### Point of Care testing , Platelet mean volume (Bld) [Entitic vol] 8.1 fL Normal 6.6-10.1 [facility] Comment on above: Performed By: #### G LULS #### Point of Care testing , Platelets (Bld) [#/Vol] 248 10*3/uL Normal 150-450 [facility] Comment on above: Performed By: #### G LULS #### Point of Care testing , RBC (Bld) [#/Vol] 4.15 10*6/uL Normal 3.90-5.60 [facility] Comment on above: Performed By: #### G LULS #### Point of Care testing , WBC (Bld) [#/Vol] 9.4 10*3/uL Normal 4.1-10.5 [facility] Comment on above: Performed By: #### G LULS #### Point of Care testing , CBC W Auto Differential pane l (Bld)on 06-16-2024 Basophils (Bld) [#/Vol] 0.1 10*3/uL [facility] Basophils/100 WBC (Bld) 1 % Not Estab. N [facility] Eosinophils (Bld) [#/Vol] 0.5 10*3/uL High [facility] Eosinophils/100 WBC (Bld) 5 % Not Estab. [facility] Erythrocyte distribution width (RBC) [Ratio] 13.0 % 11.6 - 15.4 % [facility] Hematocrit (Bld) [Volume fraction] 36.2 % Low 37.5 - 51.0 % [facility] Hemoglobin (Bld) [Mass/Vol] 11.2 g/dL Low 13.0 - 17.7 g/dL [facility] Immature granulocytes (Bld) [#/Vol] 0.1 10*3/uL [facility] Immature granulocytes/100 WBC (Bld) 1 % Not Estab. [facility] Lymphocytes (Bld) [#/Vol] 3.0 10*3/uL [facility] Lymphocytes/100 WBC (Bld) 30 % Not Estab. [facility] MCH (RBC) [Entitic mass] 29.3 pg 26.6 - 33.0 pg [facility] MCHC (RBC) [Mass/Vol] 30.9 g/dL Low 31.5 - 35.7 g/dL [facility] MCV (RBC) [Entitic vol] 95 fL 79 - 97 fL N [facility] Monocytes (Bld) [#/Vol] 0.7 10*3/uL [facility] Monocytes/100 WBC (Bld) 7 % Not Estab. N [facility] Neutrophils (Bld) [#/Vol] 5.6 10*3/uL [facility] Neutrophils/100 WBC (Bld) 56 % Not Estab. [facility] Platelets (Bld) [#/Vol] 302 10*3/uL [facility] RBC (Bld) [#/Vol] 3.82 10*6/uL Low [facility] WBC (Bld) [#/Vol] 9.9 10*3/uL [facility] Comprehensive metabolic pane jt 06-16-2024 Albumin [Mass/Vol] 3.9 g/dL 3.8 - 4.8 g/dL [facility] ALP [Catalytic activity/Vol] 172 U/L High [facility] ALT [Catalytic activity/Vol] U/L [facility] Comment on above: Verified by repeat analysis AST [Catalytic activity/Vol] 14 U/L [facility] Bilirubin [Mass/Vol] 0.2 mg/dL 0.0 - 1 .2 mg/dL [facility] Calcium [Mass/Vol] 9.5 mg/dL 8.6 - 10. 2 mg/dL [facility] Chloride [Moles/Vol] 102 mmol/L 96 - 10 6 mmol/L [facility] CO2 [Moles/Vol] 22 mmol/L 20 - 29 mmol/L [facility] Creatinine [Mass/Vol] 1.63 mg/dL High 0.76 - 1.27 mg/dL [facility] GFR/1.73 sq M.predicted among non-blacks MDRD (S/P/Bld) [Vol rate/Area] 43 mL/min/{1.73_m2} Low 59 - PINF mL/min/1.73 [facility] Globulin (S) [Mass/Vol] 2.8 g/dL 1.5 - 4.5 g/dL [facility] Glucose [Mass/Vol] 165 mg/dL High 70 - 99 mg/dL [facility] Potassium [Moles/Vol] 5.5 mmol/L High 3.5 - 5.2 mmol/L [facility] Protein [Mass/Vol] 6.7 g/dL 6.0 - 8.5 g/dL [facility] Sodium [Moles/Vol] 137 mmol/L 134 - 144 mmol/L [facility] Urea nitrogen [Mass/Vol] 43 mg/dL High 8 - 27 mg/dL [facility] Urea nitrogen/Creatinine [Mass ratio] 26 mg/mg High 10 - 24 [facility] Hemoglobin A1con 06-16-2024 HbA1c (Bld) [Mass fraction] 7.6 % High 4.8 - 5.6 % [facility] Comment on above: Prediabetes: 5.7 - 6 .4 Diabetes: >6.4 Glycemic control for adults with diabetes: <7.0 Lipid 1996 panelon Cholesterol [Mass/Vol] 132 mg/dL 100 - 199 mg/dL [facility] Cholesterol in HDL [Mass/Vol] 43 mg/dL 39 - PINF mg/dL [facility] Cholesterol in LDL [Mass/Vol] 63 mg/dL 0 - 99 mg/dL [facility] Cholesterol in VLDL [Mass/Vol] 26 mg/dL 5 - 40 mg/dL [facility] Triglyceride [Mass/Vol] 149 mg/dL 0 - 149 mg/dL [facility] Microalbumin/Creatinine rati o panel (U)on 06-16-2024 Albumin DL <= 20 mg/L (U) [Mass/Vol] 17.0 ug/mL Not Estab. [facility] Albumin/Creatinine (U) [Mass ratio] 18 [facility] Comment on above: Normal: 0 - 29 Moderately increased: 30 - 300 Severely increased: >300 Creatinine (U) [Mass/Vol] 93.3 mg/dL Not Estab. [facility] No Panel Informationon 06-16 Interpretation and review of laboratory results Abnormal [facility] Performed at: [address] [id number] Shelf Filler: Nahun Pickering PhD, Phone: [phone] [facility] Specimen Status Reporton Clindamycin Disk diffusion (KB) [[facility]] Comment [facility] Comment on above: Jennifer Veras [employer] Defa ult Jennifer [employer]as [employer] Default A hand-written panel/profile was received from your office. In accordance with the [facility] Ambiguous Test Code Policy dated April 2003, we have completed your order by using the closest currently or formerly recognized AMA panel. We have assigned Lipid Panel, Test Code #003403 to this request. If this is not the testing you wished to receive on this specimen, please contact the [facility] Client Inquiry/Technical Services Department to clarify the test order. We appreciate your business. [facility] ECG *CARDIOLOGY ONLY*on 06-15-2024 [facility]PG ECG *CARDIOLOGY ONLY* [facility] [address] [place] [address] [place] [address] Electrocardiograph Report Signed Patient: Ramon Cruz MR#: [id number] : 1945 Acct:[id number] Age/Sex: 78 / M ADM Date: 06/15/24 Loc: [facility] Room: Type: [facility] Attending Dr: Tom Conde MD Ordering Provider: [...] in Inferior leads Confirmed by Tom Conde ([id number]) on 06/16/2024 3:02:16 PM Referred By: Electronically Signed By: Tom Conde Transcribed By: MUS Signed By Tom Conde MD 06/16/24 1506 Normal [facility] US ankle/arm indiceson 06-01 US ankle/arm indices [facility] [address] [place] [address] Ultrasound Report Signed Patient: Ramon Cruz MR#: [id number] : 1945 Acct:[id number] Age/Sex: 78 / M ADM Date: 06/01/24 Loc: [facility] Room: Type: [facility] Attending Dr: Coleman Gale MD Ordering Provider: Coleman Gale MD Date of Service: 06/01/24 US/US ankle/arm indices: I70.213 - Atherosclerosis of upper [place] arteries of extremiti... Copies to: Coleman Gale [...] Coleman Gale M.D.06/01/2024 2:27 PM Dictation Location: [place] [address] Tech: Maryan Otero Transcribed By: KEVEN 06/01/24 1427 Dictated By: Coleman Gale MD 06/01/24 1425 Signed By: 06/01/24 1427 Normal [facility] Glucose Poct Glucometerson 0 02-26-2024 Glucose [Mass/Vol] 95 mg/dL Normal [facility] Comment on above: Result Comment: [place] Glucose Reference Range is dependent on time and content of last meal. Glucose of more than 200 mg/dL in a nonstressed, ambulatory subject supports the diagnosis of Diabetes Mellitus. PERFORMED BY: [place] [address] PATHOLOGIST TRAFFIC ATTENDANT PADDY RAY M.D. Performed By: #### G LULS #### Point of Care testing , Commemt1 Glu2: Cleaned Meter Normal [facility] Comment on above: Result Comment: PERF ORMED BY: [place] [address] PATHOLOGIST TRAFFIC ATTENDANT PADDY RAY M.D. Performed By: #### B MP, CBC #### [address] Glucose [Mass/Vol] 204 mg/dL Normal [facility] Comment on above: Result Comment: [place] Glucose Reference Range is dependent on time and content of last meal. Glucose of more than 200 mg/dL in a nonstressed, ambulatory subject supports the diagnosis of Diabetes Mellitus. Performed By: #### B MP, CBC #### [address] Glucose [Mass/Vol] 121 mg/dL Normal [facility] Comment on above: Result Comment: [place] Glucose Reference Range is dependent on time and content of last meal. Glucose of more than 200 mg/dL in a nonstressed, ambulatory subject supports the diagnosis of Diabetes Mellitus. PERFORMED BY: [place] [address] PATHOLOGIST TRAFFIC ATTENDANT PADDY RAY M.D. Performed By: #### B MP, CBC #### [facility] [address] [place], [place] [id number] [facility] MR head/brain wo conon 02-25 MR head/brain wo con [facility] [address] [place] [address] [place] [address] MRI Report Signed Patient: Ramon Cruz MR#: [id number] : 1945 Acct:[id number] Age/Sex: 78 / M ADM Date: 02/25/24 Loc: 3T Room: [address] [place] [address] Type: ADM INOo Attending Dr: Homar Gonzalez [...] Robert Callaway M.D.02/26/2024 3:13 PM Dictation Location: [place] [address] Transcribed By: KEVEN 02/26/24 1513 Dictated By: Robert Callaway II, MD 02/26/24 1507 Signed By: 02/26/24 1513 Normal [facility] B-Type Natriuretic Peptideon 02-25-2024 Natriuretic peptide B (Bld) [Mass/Vol] 137.0 pg/mL High 5-100 [facility] Comment on above: Result Comment: PERF ORMED BY: [place] [address] PATHOLOGIST TRAFFIC ATTENDANT PADDY RAY M.D. Performed By: #### B MP, CBC #### [address] Basic Metabolic Panelon 02-10 Anion gap [Moles/Vol] 3.2 mmol/L Low 6.0-15.0 [facility] Comment on above: Performed By: #### B MP, CBC #### [address] Calcium [Mass/Vol] 9.2 mg/dL Normal 8.6-10.3 [facility] Comment on above: Performed By: #### B MP, CBC #### [place] [address] [place] Chloride [Moles/Vol] 106 mmol/L Normal 98-107 [facility] Comment on above: Performed By: #### B MP, CBC #### [address] CO2 [Moles/Vol] 31.2 mmol/L High 21.0-31.0 [facility] Comment on above: Performed By: #### B MP, CBC #### [place] [address] [place] Creatinine [Mass/Vol] 1.23 mg/dL Normal 0.70-1.30 [facility] Comment on above: Performed By: #### B MP, CBC #### [place] [address] [place] Creatinine Clr Calc Pharmacy 51.09 Normal [facility] Comment on above: Result Comment: PERF ORMED BY: [place] [address] PATHOLOGIST TRAFFIC ATTENDANT PADDY RAY M.D. Performed By: #### B MP, CBC #### [place] [address] [place] GFR/1.73 sq M.predicted MDRD (S/P/Bld) [Vol rate/Area] mL/min/{1.73_m2} Normal [facility] Comment on above: Performed By: #### B MP, CBC #### [address] Glucose [Mass/Vol] 204 mg/dL High 70-100 [facility] Comment on above: Result Comment: [facility] Glucose Reference Range is dependent on time and content of last meal. Glucose of more than 200 mg/dL in a nonstressed, ambulatory subject supports the diagnosis of Diabetes Mellitus. ADA recommended reference range Performed By: #### B MP, CBC #### [address] Potassium [Moles/Vol] 4.4 mmol/L Normal 3.5-5.1 [facility] Comment on above: Performed By: #### B MP, CBC #### [address] Sodium [Moles/Vol] 136 mmol/L Normal 136-145 [facility] Comment on above: Performed By: #### B MP, CBC #### [place] [address] [place] Urea nitrogen [Mass/Vol] 27 mg/dL High 7-25 [facility] Comment on above: Performed By: #### B MP, CBC #### [address] head/brain wo kayla 02-24 CT head/brain wo [facility] [place] [address] CT Scan Report Signed Patient: Ramon Cruz MR#: [id number] : 1945 Acct:[id number] Age/Sex: 78 / M ADM Date: 02/25/24 Loc: 3T Room: [address] [place] [address] Type: ADM INOo Attending Dr: Homar Gonzalez [...] ABNORMALITY. Impression dictated by: Carlos Chen Jr., Kishan02/25/2024 9:44 AM Dictation Location: [place] [address] Transcribed By: [facility] 02/25/24 0944 Dictated By: Carlos Chen Jr, DO 02/25/24 0932 Signed By: 02/25/24 0944 Normal [facility] Complete Blood Count Auto Di ffon 02-25-2024 Basophils (Bld) [#/Vol] 0.1 10*3/uL Normal 0.0-0.2 [facility] Comment on above: Result Comment: PERF ORMED BY: [facility] [address] [place] [address] PATHOLOGIST TRAFFIC ATTENDANT PADDY RAY M.D. Performed By: #### G LULS #### Point of Care testing , Basophils/100 WBC (Bld) 1.0 % Normal . T [facility] Comment on above: Performed By: #### G LULS #### Point of Care testing , Eosinophils (Bld) [#/Vol] 0.3 10*3/uL Normal 0.0-0.45 [facility] Comment on above: Performed By: #### G LULS #### Point of Care testing , Eosinophils/100 WBC (Bld) 3.3 % Normal . [facility] Comment on above: Performed By: #### G LULS #### Point of Care testing , Erythrocyte distribution width (RBC) [Ratio] 13.7 % Normal 12.0-14.8 [facility] Comment on above: Performed By: #### G LULS #### Point of Care testing , Hematocrit (Bld) [Volume fraction] 40.6 % Normal 38.8-50.0 [facility] Comment on above: Performed By: #### G LULS #### Point of Care testing , Hemoglobin (Bld) [Mass/Vol] 13.4 g/dL Normal 13.0-17.0 [facility] Comment on above: Performed By: #### G LULS #### Point of Care testing , Lymphocytes (Bld) [#/Vol] 2.2 10*3/uL Normal 1.00-4.8 [facility] Comment on above: Performed By: #### G LULS #### Point of Care testing , Lymphocytes/100 WBC (Bld) 26.0 % Normal . [facility] Comment on above: Performed By: #### G LULS #### Point of Care testing , MCH (RBC) [Entitic mass] 29.3 pg Normal 27.5-35.2 [facility] Comment on above: Performed By: #### G LULS #### Point of Care testing , MCV (RBC) [Entitic vol] 89.0 fL Normal 83.5-101 T [facility] Comment on above: Performed By: #### G LULS #### Point of Care testing , Mean Corpuscular HGB Conc 32.9 g/dL Normal 32.5-35.6 [facility] Comment on above: Performed By: #### G LULS #### Point of Care testing , Monocytes (Bld) [#/Vol] 0.8 10*3/uL Normal 0.0-0.8 [facility] Comment on above: Performed By: #### G LULS #### Point of Care testing , Monocytes/100 WBC (Bld) 21.11 % High 0.00-20.00 [facility] Comment on above: Result Comment: For adults in ED, MDW > 20.0 may be associated with a higher risk of sepsis during the first 12 hrs of hospital admission Performed By: #### G LULS #### Point of Care testing , Monocytes/100 WBC (Bld) 8.9 % Normal . T [facility] Comment on above: Performed By: #### G LULS #### Point of Care testing , Neutrophils (Bld) [#/Vol] 5.2 10*3/uL Normal 1.8-7.7 [facility] Comment on above: Performed By: #### G LULS #### Point of Care testing , Neutrophils/100 WBC (Bld) 60.8 % Normal . [facility] Comment on above: Performed By: #### G LULS #### Point of Care testing , NRBC% 0.1 /100{WBC} Normal 0-0.5 [facility] Comment on above: Performed By: #### G LULS #### Point of Care testing , Platelet mean volume (Bld) [Entitic vol] 8.2 fL Normal 6.6-10.1 [facility] Comment on above: Performed By: #### G LULS #### Point of Care testing , Platelets (Bld) [#/Vol] 271 10*3/uL Normal 150-450 [facility] Comment on above: Performed By: #### G LULS #### Point of Care testing , RBC (Bld) [#/Vol] 4.57 10*6/uL Normal 3.90-5.60 [facility] Comment on above: Performed By: #### G LULS #### Point of Care testing , WBC (Bld) [#/Vol] 8.6 10*3/uL Normal 4.1-10.5 [facility] [facility] Comment on above: Performed By: #### G LULS #### Point of Care testing , Comprehensive Metabolic Pane jt 02-25-2024 Albumin [Mass/Vol] 3.8 g/dL Normal 3.5-5.7 [facility] Comment on above: Performed By: #### G NIKLS #### Point of Care testing , Albumin/Globulin [Mass ratio] 1.1 {ratio} Normal [facility] Comment on above: Performed By: #### G LULS #### Point of Care testing , ALP [Catalytic activity/Vol] 114 U/L High 34-104 [facility] Comment on above: Performed By: #### G LULS #### Point of Care testing , ALT [Catalytic activity/Vol] 7 U/L Normal 7-52 [facility] Comment on above: Performed By: #### G NIKLS #### Point of Care testing , Anion gap [Moles/Vol] 7.7 mmol/L Normal 6.0-15.0 [facility] Comment on above: Performed By: #### G NIKLS #### Point of Care testing , AST [Catalytic activity/Vol] 17 U/L Normal 13-39 [facility] Comment on above: Performed By: #### G NIKLS #### Point of Care testing , Bilirubin [Mass/Vol] 0.4 mg/dL Normal 0.3-1.0 [facility] Comment on above: Performed By: #### G NIKLS #### Point of Care testing , Calcium [Mass/Vol] 9.8 mg/dL Normal 8.6-10.3 [facility] Comment on above: Performed By: #### G NIKLS #### Point of Care testing , Chloride [Moles/Vol] 102 mmol/L Normal 98-107 [facility] Comment on above: Performed By: #### G NIKLS #### Point of Care testing , CO2 [Moles/Vol] 31.8 mmol/L High 21.0-31.0 [facility] Comment on above: Performed By: #### G NIKLS #### Point of Care testing , Creatinine [Mass/Vol] 1.46 mg/dL High 0.70-1.30 [facility] Comment on above: Performed By: #### G LULS #### Point of Care testing , Creatinine Clr Calc Pharmacy 43.83 Normal [facility] Comment on above: Performed By: #### G LULS #### Point of Care testing , GFR/1.73 sq M.predicted MDRD (S/P/Bld) [Vol rate/Area] 48.919 mL/min/{1.73_m2} Normal [facility] Comment on above: Performed By: #### G LULS #### Point of Care testing , Globulin (S) [Mass/Vol] 3.5 g/dL Normal T [facility] Comment on above: Performed By: #### G LULS #### Point of Care testing , Glucose [Mass/Vol] 216 mg/dL High 70-100 [facility] Comment on above: Result Comment: [facility] Glucose Reference Range is dependent on time and content of last meal. Glucose of more than 200 mg/dL in a nonstressed, ambulatory subject supports the diagnosis of Diabetes Mellitus. ADA recommended reference range Performed By: #### G LULS #### Point of Care testing , Potassium [Moles/Vol] 4.5 mmol/L Normal 3.5-5.1 [facility] Comment on above: Performed By: #### G LULS #### Point of Care testing , Protein [Mass/Vol] 7.3 g/dL Normal 6.4-8.9 [facility] Comment on above: Performed By: #### G LULS #### Point of Care testing , Sodium [Moles/Vol] 137 mmol/L Normal 136-145 [facility] Comment on above: Performed By: #### G LULS #### Point of Care testing , Urea nitrogen [Mass/Vol] 31 mg/dL High 7-25 [facility] Comment on above: Performed By: #### G LULS #### Point of Care testing , Dipstick and Microscopicon 0 02-25-2024 Appearance (U) Clear Normal Clear [facility] Comment on above: Order Comment: Name Collection Type:: Clean-Voided Midstream Performed By: #### B MP, CBC #### [facility] [address] [place] [address] Bacteria,Urine None Seen Normal None Seen [facility] Comment on above: Order Comment: Name Collection Type:: Clean-Voided Midstream Performed By: #### B MP, CBC #### [place] [address] [place] Bilirubin,Urine Negative Normal Negative [facility] Comment on above: Order Comment: Name Collection Type:: Clean-Voided Midstream Performed By: #### B MP, CBC #### [address] Color (U) Yellow Normal Yellow [facility] Comment on above: Order Comment: Name Collection Type:: Clean-Voided Midstream Performed By: #### B MP, CBC #### [address] Glucose Ql (U) 500 mg/dL High Normal [facility] Comment on above: Order Comment: Name Collection Type:: Clean-Voided Midstream Performed By: #### B MP, CBC #### [address] Hyaline Casts,Urine None Seen Normal 0-8 [facility] Comment on above: Order Comment: Name Collection Type:: Clean-Voided Midstream Result Comment: PERF ORMED BY: [place] [address] PATHOLOGIST TRAFFIC ATTENDANT PADDY RAY M.D. Performed By: #### B MP, CBC #### [place] [address] [place] Ketones Ql (U) Negative Normal Negative [facility] Comment on above: Order Comment: Name Collection Type:: Clean-Voided Midstream Performed By: #### B MP, CBC #### [place] [address] [place] Leukocyte esterase Test strip Ql (U) Negative Normal Negative [facility] Comment on above: Order Comment: Name Collection Type:: Clean-Voided Midstream Performed By: #### B MP, CBC #### [place] [address] [place] Nitrite,Urine Negative Normal Negative [facility] Comment on above: Order Comment: Name Collection Type:: Clean-Voided Midstream Performed By: #### B MP, CBC #### [address] Occult Blood,Urine Negative Normal Negative [facility] Comment on above: Order Comment: Name Collection Type:: Clean-Voided Midstream Result Comment: PERF ORMED BY: [place] [address] PATHOLOGIST TRAFFIC ATTENDANT PADDY RAY M.D. Performed By: #### B MP, CBC #### [address] pH (U) 5.0 [pH] Normal 5.0-9.0 [facility] Comment on above: Order Comment: Name Collection Type:: Clean-Voided Midstream Performed By: #### B MP, CBC #### [address] Protein (U) [Mass/Vol] 100 mg/dL High Negative [facility] Comment on above: Order Comment: Name Collection Type:: Clean-Voided Midstream Performed By: #### B MP, CBC #### [address] RBC LM.HPF (Urine sed) [#/Area] 0 /[HPF] Normal 0-4 [facility] Comment on above: Order Comment: Name Collection Type:: Clean-Voided Midstream Performed By: #### B MP, CBC #### [address] Specificy [place],Urine 1.019 Normal 1.001-1.030 [facility] Comment on above: Order Comment: Name Collection Type:: Clean-Voided Midstream Performed By: #### B MP, CBC #### [address] Squamous Epithelial Cell,Urine None Seen Normal 0-2 [facility] Comment on above: Order Comment: Name Collection Type:: Clean-Voided Midstream Performed By: #### B MP, CBC #### [facility] [address] Urobilinogen,Urine Normal Normal Normal [facility] Comment on above: Order Comment: Name Collection Type:: Clean-Voided Midstream Performed By: #### B MP, CBC #### [facility] [address] WBC LM.HPF (Urine sed) [#/Area] 0 /[HPF] Normal 0-4 [facility] Comment on above: Order Comment: Name Collection Type:: Clean-Voided Midstream Performed By: #### B MP, CBC #### [address] Glucose Poct Glucometerson 0 02-25-2024 Glucose [Mass/Vol] 224 mg/dL Normal [facility] Comment on above: Result Comment: [place] om Glucose Reference Range is dependent on time and content of last meal. Glucose of more than 200 mg/dL in a nonstressed, ambulatory subject supports the diagnosis of Diabetes Mellitus. PERFORMED BY: [place] [address] PATHOLOGIST TRAFFIC ATTENDANT PADDY RAY M.D. Performed By: #### B MP, CBC #### [address] Commemt1 Normal [facility] Comment on above: Result Comment: Glu2 : WILL NOTIFY DR/RN Performed By: #### B MP, CBC #### [address] Commemt2 Cleaned Meter Normal [facility] Comment on above: Result Comment: PERF ORMED BY: [place] [address] PATHOLOGIST TRAFFIC ATTENDANT PADDY RAY M.D. Performed By: #### B MP, CBC #### [address] Glucose [Mass/Vol] 72 mg/dL Normal [facility] Comment on above: Result Comment: [place] om Glucose Reference Range is dependent on time and content of last meal. Glucose of more than 200 mg/dL in a nonstressed, ambulatory subject supports the diagnosis of Diabetes Mellitus. Performed By: #### B MP, CBC #### [address] Commemt1 Glu2: Cleaned Meter Normal [facility] Comment on above: Result Comment: PERF ORMED BY: [place] [address] PATHOLOGIST TRAFFIC ATTENDANT PADDY RAY M.D. Performed By: #### B MP, CBC #### [address] Glucose [Mass/Vol] 258 mg/dL Normal [facility] Comment on above: Result Comment: [place] om Glucose Reference Range is dependent on time and content of last meal. Glucose of more than 200 mg/dL in a nonstressed, ambulatory subject supports the diagnosis of Diabetes Mellitus. Performed By: #### B MP, CBC #### [address] Glucose [Mass/Vol] 197 mg/dL Normal [facility] Comment on above: Result Comment: [place] om Glucose Reference Range is dependent on time and content of last meal. Glucose of more than 200 mg/dL in a nonstressed, ambulatory subject supports the diagnosis of Diabetes Mellitus. PERFORMED BY: [place] [address] PATHOLOGIST TRAFFIC ATTENDANT PADDY RAY M.D. Performed By: #### B MP, CBC #### [address] Glucose [Mass/Vol] 194 mg/dL Normal [facility] Comment on above: Result Comment: [place] om Glucose Reference Range is dependent on time and content of last meal. Glucose of more than 200 mg/dL in a nonstressed, ambulatory subject supports the diagnosis of Diabetes Mellitus. PERFORMED BY: [place] [address] PATHOLOGIST TRAFFIC ATTENDANT PADDY RAY M.D. Performed By: #### B MP, CBC #### [address] [place] [address] [facility] Magnesiumon 02-25-2024 Magnesium [Mass/Vol] 2.0 mg/dL Normal 1.9-2.7 [facility] Comment on above: Performed By: #### G MONET #### Point of Care testing , Partial Thromboplastin Timeo n 02-25-2024 aPTT Coag (Bld) [Time] 26.4 s Normal 25.1-36.5 [facility] Comment on above: Result Comment: A he matocrit value greater than 55% may lead to inaccurate results in coagulation testing. Patients having hematocrit values >55% require a special collection tube for coagulation studies. Please contact the laboratory at [phone] for redraw instructions. PERFORMED BY: [place] [address] PATHOLOGIST TRAFFIC ATTENDANT PADDY RAY M.D. Performed By: #### G MONET #### Point of Care testing , Prothrombin Time INRon 02-24 INR Coag (PPP) [Relative time] 1.0 {INR} Normal [facility] Comment on above: Result Comment: [...] valves: 3 - 4.5 Performed By: #### B MP, CBC #### [place] [id number] [facility] PT Coag (PPP) [Time] 12.0 s Normal 9.0-12.9 [facility] Comment on above: Result Comment: A he matocrit value greater than 55% may lead to inaccurate results in coagulation testing. Patients having hematocrit values >55% require a special collection tube for coagulation studies. Please contact the laboratory at [phone] for redraw instructions. Performed By: #### B MP, CBC #### [place] [id number] [facility] Thyroid Stimulating Hormoneo n 02-25-2024 TSH Qn 1.69 m[IU]/L Normal 0.45-5.33 [facility] Comment on above: Result Comment: PERF ORMED BY: [place] [id number] PATHOLOGIST TRAFFIC ATTENDANT PADDY RAY M.D. Performed By: #### G LULS #### Point of Care testing , Troponin I High Sensitivityo n 02-25-2024 Troponin I High Sensitivity 93.3 pg/mL Off scale high 0.0-20.0 [facility] Comment on above: Result Comment: Crit ical Result : Called to and read back by: NATASHA QUIÑONES at: 02/25/2024 08:20:19 by:[id number] PERFORMED BY: [phone] PATHOLOGIST TRAFFIC ATTENDANT PADDY RAY M.D. Performed By: #### B MP, CBC #### [address] Troponin I High Sensitivity 130.7 pg/mL Off scale high 0.0-20.0 [facility] Comment on above: Result Comment: Crit ical Result : Called to and read back by: CASH MANCINI at: 02/25/2024 03:54:01 by:[id number] PERFORMED BY: [phone] PATHOLOGIST TRAFFIC ATTENDANT PADDY RAY M.D. Performed By: #### G LULS #### Point of Care testing , XR chest 1V portableon 02-24 XR chest 1V portable [facility] [place] [address] [place] [address] XRay Report Signed Patient: Ramon Cruz MR#: [id number] : 1945 Acct:[id number] Age/Sex: 78 / M ADM Date: 02/25/24 Loc: Room: [address] [place] [address] Type: ADM INOo Attending Dr: Homar Gonzalez [...] Robert Callaway M.D.02/25/2024 9:28 AM Dictation Location: [place] [address] Transcribed By: [facility] 02/25/24927 Dictated By: Robert Callaway II, MD 02/25/24926 Signed By: 02/25/24927 Normal [facility] ECG 12 lead ECGon 02-24-2024 ECG 12 lead ECG [facility] [place] [address] [place] [address] Electrocardiograph Report Signed Patient: Ramon Cruz MR#: [id number] : 1945 Acct:[id number] Age/Sex: 78 / M ADM Date: 02/25/24 Loc: Room: [address] [place] [address] Type: ADM INOo Attending Dr: Roe Carpenter MD Ordering Provider: Silvestre Alexander Jr, MD Date of Service: 02/24/24 ECG/ECG 12 lead ECG: Weakness Copies to: [...] Junctional rhythm Confirmed by SILVESTRE ALEXANDER MD ([id number]) on 02/25/2024 5:41:44 AM Referred By: Electronically Signed By:SILVESTRE ALEXANDER MD Transcribed By: MUS Signed By Silvestre Alexander Jr, MD 0541 Normal [facility] Glucose Poct Glucometerson 0 02-24-2024 Commemt1 Glu2: Cleaned Meter Normal [facility] Comment on above: Result Comment: PERF ORMED BY: [facility] [address] [place] [address] PATHOLOGIST TRAFFIC ATTENDANT PADDY RAY M.D. Performed By: #### G LULS #### Point of Care testing , Glucose [Mass/Vol] 230 mg/dL Normal [facility] Comment on above: Result Comment: [place] om Glucose Reference Range is dependent on time and content of last meal. Glucose of more than 200 mg/dL in a nonstressed, ambulatory subject supports the diagnosis of Diabetes Mellitus. Performed By: #### G LULS #### Point of Care testing , Capillary blood glucose jerardo urement by glucometer (mass/volume)Ordered By: Manda Lockwood on 02-09-2024 Glucose [Mass/Vol] 165 mg/dL Normal [facility] Comment on above: Random Glucose Refer ence Range is dependent on time and content of last meal. Glucose of more than 200 mg/dL in a nonstressed, ambulatory subject supports the diagnosis of Diabetes Mellitus. Result Comment: [place] om Glucose Reference Range is dependent on time and content of last meal. Glucose of more than 200 mg/dL in a nonstressed, ambulatory subject supports the diagnosis of Diabetes Mellitus. Performed By: #### G LULS #### Point of Care testing , Glucose Poct Glucometerson 0 02-09-2024 Commemt1 Glu2: Cleaned Meter Normal [facility] Comment on above: Result Comment: PERF ORMED BY: [facility] [address] [place] [address] PATHOLOGIST TRAFFIC ATTENDANT PADDY RAY M.D. Performed By: #### G LULS #### Point of Care testing , Jt 02-09-2024 L Specimen: [id number] Received: 02/09/24-1040 Status: SOUT Req Num: [id number] Spec Type: Surgical Subm Dr: Manda Lockwood MD Tissues: A Colon Biopsy (SIGMOID POLYP) Procedures: HE/2, Gross/Micro L4 Age/ Patient Sex Location Account Attending Physician Ramon Cruz 78/M [id number] Manda Lockwood MD SPEC NUM: [id number] RECD: 02/09/24 STATUS: RAMBO SUJATA NUM: [id number] CAIO: 02/09/24- SUBM DR: Manda Lockwood MD ENTERED: 02/09/24 [facility] DR: SPEC TYPE: Surgical DEPT: [...] Family history of colon cancer CPT Codes 62068 -------- -------- Specimen: [id number] Received: 02/09/24 Status: DAVIDJina Pina Num: [id number] Spec Type: Surgical Subm Dr: Manda Lockwood MD Tissues: A Colon Biopsy (SIGMOID POLYP) Procedures: HE/2, Gross/Micro L4 -------- Patient: Ramon Cruz [id number] (Continued) -------- Signed (signature on file) Lili Vicente MD 02/10/24 1037 Normal [facility] No Panel InformationOrdered By: Manda Lockwood on 02-09-2024 Bedside Glucose Comment Glu2: cleaned meter [facility] POINT OF CARE GLUCOSEon 05- Glucose [Mass/Vol] 223 mg/dL Critically high 74-106 T [facility] Comment on above: Performed By: #### P OCGLUC #### [facility] [place] [facility] [address] [place] [address] Dr. Radha Camarena Coding Summaryon 01-30-2023 Coding Summary HTMLBase 64 IqghfxqbERg2dVi+PGhlY WQ+OA4RHYXuH90dvTNfdF 5VR8mBOQ0RRIRWXPKRXV6 MLK7elRO9FVvxD9RotoBx YbbhvXBtOT46YAb2NZK7u DfxQGckqR7ldPMxI1m5Bc NnGZ15nU82GFptOTOsUqL 3LjZpbjsgbWFy J8nnZhMqnKTaXji+PHRhY mxlIHdpZHRoPScxMDAlJy AsvYsvBH3hIm8tDQPkRCV vbGxhcHNlOiBj f2zyCFVeGFhqAG5dtPaxT 6YgxOL5HAIwu3h2Mo55sQ I+BITrCBH1pNvdDSajo76 9TcBzk6owOER6 uDHgPRlnOAI7Z64fs1T7O ANeQFIcSKB2lDK7dH7fzZ mfpvpxD4ZdmRGqSuM0SIA 9lXPfsD3ysOsa sutrfO1zJdb+Q29GZS4UX MOLUN7NChe3X4SyUomykG I+PY89EHZtBO40tEMlsAG nl8qgcAx7AyTq MZFpWNR2hOfaSDfid2BiH LRgK30quVCbl3A2WXKzdB qrhDXvCvBdrFW4zB5sWUn hpsrrn3ehrbuq Lpfay7hfjk63yP29G07oS FjcFMQpBKS1ENAcKNGwoK lmez7egT1xIq3+MBwqo6j ey0jzeLl3WkZe YPItynGvqLypGGK8x3LtF r94E7TyzMici2DrXiv0qm 25sYKqf0U3iYM7GLctFZX lkO0dHUesJhT4 LCWeQkDsbB84wHAmJVngS k1usUewhFdoJM0tBTVtht eaVOHhmS6qZUDusFCurHy jRX9cCTMmdkui k235BgDwAQF5AMZcnIOfD 5SegP4kQtErSDAzATDxK4 UvlHVkQVntC110WIpgJsJ 9PVNcloMjI8Jc XLIprWvxShT3l1Y1Ta7Gr 8ZvxbzwMVY6QGzcGWM5Ag HyDcRaMbJ6W4DpObg9YAR rcAwlPX1aU2Wb LXQbngxnbknwgKQ6XRKyO JTjqX42aYKlTKxjFk9ap6 J6y037NTGgPGUweM56Rq6 udDogMTBwdCBU pE1xhmkyz3zkgnesIbBnY PRdGVi4JCk7HUFnpUfkGz IyGTI3OeL4IVI5xSMqrU5 vsWjfeeisuZ2a Oyc+R12ybN1fPUF4SGW2m hhlNTTiklBfCO72GV71E4 RyPjwvdGFibGU+PGRpdiB qtPjrDU9dPvXr f0mro5BuVBliU3LmPNVuU HqpMct2SFUdNJM6oQE6bL 0yFLOfVYrfy7F2wUB0J0M rsuCbzl5ou3xw ZZLxETjaO93rrPRnp7G7E NWjxVX8LEWniOpyDgZyaB 93Oyc+NRXirZhio1VmJfa pe2kbn4tytLk2 QhJrOVEudpJlvKfxNYS1y 6PgPc64O49jEPeeJFTnIW MeNSPsKVIdfRdgty8zjD1 wIi8+PGNvbCB3 bPE9sB6vTDImDdO2TBrtK 424BsHdoXAqBnkqb9tqf4 mcuWh1XkAiBSCamwEyeJc iBLH2x5QuDb94 I31hFHsxYVSfXSDoIGWeG AAheEopap2axQ2mHd0+PC 0dm3kqui64aL41kND+PHR aQJJ9mVrgCWgk HWBfpO7uIVvlIlL8UATdP hNdvQ51jBKoKBeyLo5qqJ nifAztMA0xKURybhmnw89 9EkWfk8ybRDAo hELhEBfoQJR4N72iw2S2Q YJeRVLqIPW3rDE1hN8ygM lnbjogbGVmdDsgdmVydGl jBOijMExiA203 IHRvcDsnPlBhdGllbnQgT hOwKTg1J9HuGfa4QGRdeX iwNL2wpZPsHWgjHe2khYn hoJcgBF7yMREj wfiqt299PkSsw8ugVCEsu SJjITauHPT3S49ck0Z0LW VhVMScWZT9lFN0nI4jdPs nbjogbGVmdDsg wbPqfThkSXbhRZmhN523E HRvcDsnPkJpcnRoIERhdG X9DJ32OO05eYGbj6N6aEM 5W4QeMYHehujt cxeouZA7GKLvZNKbkL11N n2uuNmhEi5oHZUdWFB6ZU YjhUMlB3PziQ0tVaOwKLM mXTPlB7KgiJNd AGzhR931FDfcTkI8IFRbz pHjO0ToNHNtqCcfEwA1n7 C0Xu8XS3T3VQ42OW64pLQ mw8D8uOT2M0Yg GCXwquhnwrwmnIQ7IFXmY VHooN05Zc6dsUglUp9aCY UtBBI4XDHlkWIoP6ElnW8 yOiAjMDAwMDAw I3KicLAfRWqkI254DKhvW xA1IDTnyrFtY8FbTMDmwE ekXvW2v4G3Vu4ZTUy1JF4 3WV60iYWpi6H9 kSU6I3RnVPBrzcriljwzo EP0EFRuRMBcsW13Jn0idG hdCf5fSYOfVXU2DGUvaNV lD1RamK2xWxMw WJSbJZBkQ9KryFFpVHlvS 332NVteWeX1QVNinfFwV9 XpVJKxhUszYaH9z1F0Jv6 EGBGvAV48KVP9 aCU2PW50CH55H4TrYpehy GFibGU+PHRhYmxlIHdpZH RoPScxMDAlJyBzdHlsZT0 iFo6cHNHySJSy yTbraZSvCmFkw8miPAPaN RqkAO6djJwmG7GwfQM4QH Gvw0m7Sr29N74dR6HnqFB +LZYxiUH1vHA1 hF8gCfFrPgP9IVntH558Y lMedYAyBicuh5pzi1qisF s3MwQ4LWZwvsEygSfkGMZ 0i5UfVz65I94w IHdpZHRoPSIxNSUiIHZhb Efvpq6pvX8cBj1+PGNvbC F0xOS5hR4yApUvHvB5HGg zS477BdBmkKWo Yqwzk1rfo3dydVp6YxFgJ FMcfnXtbDrkAVK2p6ObPy 81Z7UinXdcr3ImSsz6rs1 7xKVzq1A7lCX6 W0TfBRJkgoraxWYvaGrqN I1wQIGxncxoZWAxhT6uHR DmY4s3UvYrFsB2PZmvQ0Z mmrG7UDXtoIAi IGqyJXC5W92mn5I7GPDaB BUoSRN6zLW0oH8wiSpxnj ogbGVmdDsgdmVydGljYWw wOEaoO297TKSc gNtuSVDqcL1qPUAvrNHda EvtDI2lOSVqcyjnZhbYGL jDDiirC8mSMXmILFPDXVQ YCXAWRT68YD24 kKXvb0N3rIL3G1WuOQDjc lmiwslxiJA1RVWfCEGhwQ 95gQVfABvgZb9mc5A6r63 9MTSwFCRtiA95 Ib7lvCaiSSZulRAFiT6io slzh0ydtgzwIkPcOCLgXG g7KVx7BSNsqCfzFfBhZIP 9GuM7EMH9uJWj jO4jtMspkiwjmT5cEay+M RZzUSjqRDa0LOnvhFT+PH ClNMD2cLheTCfnFSYzyB8 gENCvE3m5NdSs IgT8FQnsY2RpJQJejubsW g36vP8sJmJdTeC9TPpkJ2 JngxE7TAXkxHUjUTqpRBW 2N56hj0O5YBMj RLZgXDU8tPR2gO7vvLkki jogbGVmdDsgdmVydGljYW bwTYzgA512BHKekWlkTgu 4DTtvWWUcXX55 QY60hOSnz2Z2tWW6Z8TfR EYejesavpbusGK5HOViXP OyyO81wPKrARyqMv1iy8G 7p376YICpMFMj sV19Js8nnCmbFOPxtUJMa H9rrymjg2rhmfcsFpHkXI NnDYv2NKf8QVVxvMswOrZ dNMC8OkB5HGA5 gMFzjO2bxJutomsqlD7yD yc+TUFMRTwvdGQ+PHRkIH V3dUssOAviGBCkaN5eTIT mB9t2SmFdJhR1 VWqhC5UaPHIajpqlVa86b P0fMkZpMrU6YZxwZ8Samy Q7UKCxkMKsAKwlRII7V58 ad0J6OOXfKEId BTU5qCZ2iZ4ijRwyzsjcf GVmdDsgdmVydGljYWwtYW oqX033ZTIjpGkjZl3CGM2 5HA84Q7SfUnib dGFibGU+PHRhYmxlIHdpZ HRoPScxMDAlJyBzdHlsZT 3zTi2kZMTjQEFjlMtteFO zFrVyb9jiQUEz TSadFU4rvRsnS0XowUT4B EAtj1r7Nb25U77sH8PjwJ A+TYCidRJ1zSS7hW9mHmU iJvU6INvoG827 NuCepJQbFyrdp2vnj9cyw Ha9VvXeJKQvlbRneHwsFK S3p4RpPv35V41dWInzPSQ oPSIyMCUiIHZh uXopnk4bkM6rJy7+PGNvb IO5iSP4rC3gPcZcYwG5MS lsB398IaXqgREaEgumY77 hM9DzlAO+PHRy Pyx0KCYniAniYY9xyAWuD EgxKv5uEBN2PiTvKaVsAR htU2NvLUYlduabrbwiqBK 6RSEgLHIovV26 Rd7jiLnlFs0eAOSxTYZ7W MXneARwK9GubA6lYuWkZG ViNITtL8OxvQBaDAhsI49 8KLqsJvX7VRFw trLhV4YyNXSclQehBuC5f 6U3Vh9ZzUoqzGYqAJ0vOg VmJWs1C4BqFbl6ITYrxMb iTG8wqNFeHHww Kg0zcKngqLfeXU8tPGOmh fctt977FrUyo8nsEDRudF RpBThhTVF4W80bt3U8SVJ fYQGpPWX7bIV7 vB7rxDhilmsqtNCbmRyco bGtlRnhKKlmEKxaK690NL SasSjiEwCIPol5V5NjWip 4NMPvnAnzNF6f mUFzVMueVm9wlSovvEliE S7xEEYokocgm233QqKzr7 kmPIWahWDeUXklLKU3X68 np3R1OIUzBHEi ZWD0jSK3rW9kpPhluzqbo GVmdDsgdmVydGljYWwtYW ghL285HNUxdWtiQc1APhd 0T0EmBct3FFJb tCllUL1ksZNuRCmvLt8ty FlblCjjCF7tTWPrdukas7 11DmCjv3pcBYPkmNSdKLj wELQ1A09ae6Y0 OTXvTEKhUZS5sML0fR1bt GlnbjogbGVmdDsgdmVydG huURayWCjdD685SLWjkEx nPlBheWVyOjwv dGQ+LM20tx49Q8YjXxtdY pb6FHInJUD2cWM7oF3rJP KnITafa0X4hVT6T7TqrhW dtc0eb7ohPGMj ZTo (more content not included)... Normal [facility] Provider [facility]erson 01-29-2023 Provider Orders [id number] [facility] PSA Diagnosticon 01-28-2023 PSA Diagnostic 5.10 ng/mL High 0.00-4.00 [facility] Comment on above: Result Comment: [employer] Clinical System (Chemiluminescence) Values obtained with different assay methods or kits cannot be used interchangeably. Results cannot be interpreted as absolute evidence of the presence or absence of malignant disease. Performed By: #### [id number] #### [facility] (DEFAULT) [address] [place] [address] POINT OF CARE GLUCOSEon 09-13 Glucose [Mass/Vol] 95 mg/dL Normal 74-106 [facility] Comment on above: Performed By: #### P OCGLUC #### [facility] [address], [place] [address] Dr. Radha Camarena XR Chest 2 Views*on [...] by Roe Garcia on 09/02/2022 1057 Normal [facility] Specialist HEMOGLOBIN A1Con 05-28-2022 Glucose [Mass/Vol] 160 mg/dL Normal [facility] Comment on above: Order Comment: RICHARD NT FASTING Performed By: #### H BA1E #### [facility] [address] [place] [address] HbA1c (Bld) [Mass fraction] 7.2 % Abnormal [facility] Comment on above: Order Comment: RICHARD NT FASTING Result Comment: Diag nosis of Diabetes-Adults Non-Diabetic: < or = 5.6% Increased risk for developing diabetes: 5.7-6.4% Diagnostic of diabetes: > or = 6.5% . Monitoring of Diabetes Age (y) Therapeutic Goal (%) Adults: >18 <7.0 Pediatrics: 13-18 <7.5 7-12 <8.0 0- 6 7.5-8.5 [employer]. Diabetes Care 33(S1), Oct 2009. Performed By: #### H BA1E #### [facility] [address] [place] [address] BASIC METABOLIC PANELon 05-13 Anion gap [Moles/Vol] 13 mmol/L Normal 10 - 20 [facility] Comment on above: Order Comment: PATIE NT FASTING Performed By: #### B MP #### [facility] [address] [place] [address] Calcium [Mass/Vol] 9.9 mg/dL Normal 8.6 - 10.6 [facility] Comment on above: Order Comment: PATIE NT FASTING Performed By: #### B MP #### [facility] [address] [place] [address] Chloride [Moles/Vol] 101 mmol/L Normal 98 - 107 [facility] [place] Comment on above: Order Comment: PATIE NT FASTING Performed By: #### B MP #### [facility] [address] [place] [address] Creatinine [Mass/Vol] 1.21 mg/dL Normal 0.50 - 1.30 [facility] Comment on above: Order Comment: PATIE NT FASTING Performed By: #### B MP #### [facility] [address] [place] [address] GFR/1.73 sq M.predicted among non-blacks MDRD (S/P/Bld) [Vol rate/Area] 62 mL/min/{1.73_m2} Normal >90 [facility] Comment on above: Order Comment: PATIE NT FASTING Result Comment: CALC ULATIONS OF ESTIMATED GFR ARE PERFORMED USING THE 2020 CKD-EPI STUDY REFIT EQUATION WITHOUT THE RACE VARIABLE FOR THE IDMS-TRACEABLE CREATININE METHODS. https://jasn.asnjournals.org/content/early//ASN.2020 316170 Performed By: #### B MP #### [facility] [address] [place] [address] Glucose [Mass/Vol] 88 mg/dL Normal 74 - 99 [facility] Comment on above: Order Comment: PATIE NT FASTING Performed By: #### B MP #### [facility] [address] [place] [address] HCO3 (Bld) [Moles/Vol] 30 mmol/L Normal 21 - 32 [facility] Comment on above: Order Comment: PATIE NT FASTING Performed By: #### B MP #### [facility] [address] [place] [address] Potassium [Moles/Vol] 4.6 mmol/L Normal 3.5 - 5.3 [facility] Comment on above: Order Comment: PATIE NT FASTING Performed By: #### B MP #### [facility] [address] [place] [address] Sodium [Moles/Vol] 139 mmol/L Normal 136 - 145 [facility] Comment on above: Order Comment: PATIE NT FASTING Performed By: #### B MP #### [facility] [address] [place] [address] Urea nitrogen [Mass/Vol] 28 mg/dL High 6 - 23 [facility] Comment on above: Order Comment: PATIE NT FASTING Performed By: #### B MP #### [facility] [address] [place] [address] Blood Pressure Cuff Sizeon 0 05-27-2022 Fall risk assessment a) No falls within the last year [facility] on Work Phone: Tobacco use status CPHS b) No M [facility] on Work Phone: Blood Pressure Cuff Size Adult [facility] Work Phone: Hemoglobin A1Con 05-27-2022 Glucose [Mass/Vol] 160 mg/dL [facility] Work Phone: HbA1c (Bld) [Mass fraction] 7.2 % [facility] Work Phone: Comment on above: Diagnosis of Diabete s-Adults Non-Diabetic: < or = 5.6% Increased risk for developing diabetes: 5.7-6.4% Diagnostic of diabetes: > or = 6.5%. Monitoring of Diabetes Age (y) Therapeutic Goal (%) Adults: >18 <7.0 Pediatrics: 13-18 <7.5 7-12 <8.0 0- 6 7.5-8.5 [employer]. Diabetes Care 33(S1), Oct 2009. LIPID PANEL (CORONARY RISK 2 )on 05-27-2022 Cholesterol [Mass/Vol] 131 mg/dL Normal 0 - 199 [facility] Comment on above: Order Comment: PATIE [...] guidelines reference: NCEP ATPIII Guidelines, WALTER 2001, 258:7126-97 . Venipuncture immediately after or during the administration of Metamizole may lead to falsely low results. Testing should be performed immediately prior to Metamizole dosing. Performed By: #### L IPID #### [facility] [address] [place] [address] Cholesterol in HDL [Mass/Vol] 37.8 mg/dL Abnormal [facility] Comment on above: Order Comment: PATIE NT FASTING Result Comment: . AGE VERY LOW LOW NORMAL HIGH 0-19 Y < 35 < 40 40-45 ---- 20-24 Y ---- < 40 >45 ---- >24 Y ---- < 40 40-60 >60 . Performed By: #### L IPID #### [facility] [address] [place] [address] Cholesterol in LDL [Mass/Vol] 59 mg/dL Normal 0 - 99 [facility] Comment on above: Order Comment: PATIE NT FASTING Result Comment: . NEAR BORD AGE DESIRABLE OPTIMAL HIGH HIGH VERY HIGH 0-19 Y 0 - 109 --- 110-129 >/= 130 ---- 20-24 Y 0 - 119 --- 120-159 >/= 160 ---- >24 Y 0 - 99 100-129 130-159 160-189 >/=190 . Performed By: #### L IPID #### [facility] [address] [place] [address] Cholesterol in VLDL [Mass/Vol] 34 mg/dL Normal 0 - 40 [facility] Comment on above: Order Comment: PATIE NT FASTING Performed By: #### L IPID #### [facility] [address] [place] [address] Cholesterol.total/Maryellen sterol in HDL [Mass ratio] 3.5 {ratio} Normal [facility] Comment on above: Order Comment: PATIE NT FASTING Result Comment: REF VALUES DESIRABLE < 3.4 HIGH RISK > 5.0 Performed By: #### L IPID #### [facility] [address] [place] [address] Triglyceride [Mass/Vol] 169 mg/dL High 0 - 149 [facility] Comment on above: Order Comment: PATIE [...] Performed By: #### L IPID #### [facility] [address] [place] [address] Laboratory - Chemistry and C hemistry - challengeon 05-27-2022 Anion gap [Moles/Vol] 13 mmol/L 10 - 20 [facility] Work Phone: Calcium [Mass/Vol] 9.9 mg/dL 8.6 - 10.6 [facility] Work Phone: Chloride [Moles/Vol] 101 mmol/L 98 - 107 [facility] Work Phone: CO2 [Moles/Vol] 30 mmol/L 21 - 32 [facility] Work Phone: Creatinine [Mass/Vol] 1.21 mg/dL See Below [facility] Work Phone: Comment on above: Reference Range: 0.5 0 - 1.30 Glucose [Mass/Vol] 88 mg/dL 74 - 99 [facility] Work Phone: Potassium [Moles/Vol] 4.6 mmol/L 3.5 - 5.3 [facility] Work Phone: Sodium [Moles/Vol] 139 mmol/L 136 - 145 [facility] Work Phone: Urea nitrogen [Mass/Vol] 28 mg/dL above high threshold 6 - 23 [facility] Work Phone: Lipid Panelon 05-27-2022 Cholesterol [Mass/Vol] 131 mg/dL 0 - 199 [facility] Work Phone: Comment on above: [...] Cholesterol in HDL [Mass/Vol] 37.8 mg/dL Abnormal [facility] Work Phone: Comment on above: . AGE VERY LOW LOW N ORMAL HIGH 0-19 Y < 35 < 40 40-45 ---- 20-24 Y ---- < 40 >45 ---- >24 Y ---- < 40 40-60 >60. Cholesterol in LDL [Mass/Vol] 59 mg/dL 0 - 99 [facility] Work Phone: Comment on above: . NEAR BORD AGE ANNE RABLE OPTIMAL HIGH HIGH VERY HIGH 0-19 Y 0 - 109 --- 110-129 >/= 130 ---- 20-24 Y 0 - 119 --- 120-159 >/= 160 ---- >24 Y 0 - 99 100-129 130-159 160-189 >/=190. Cholesterol.total/Maryellen sterol in HDL [Mass ratio] 3.5 {ratio} [facility] Work Phone: Comment on above: REF VALUESDESIRABLE < 3.4HIGH RISK > 5.0 Triglyceride [Mass/Vol] 169 mg/dL above hi gh threshold 0 - 149 [facility] Work Phone: Comment on above: . [...] Lipid Panel 34 mg/dL 0 - 40 [facility] Work Phone: No Panel Informationon 05-27 62 {mL/min/1.73m2} >90 [facility] Work Phone: Comment on above: CALCULATIONS OF ARISTIDES MATED GFR ARE PERFORMED USING THE 2020 CKD-EPI STUDY REFIT EQUATION WITHOUT THE RACE VARIABLE FOR THE IDMS-TRACEABLE CREATININE METHODS.https://jasn.asnjournals.org/content// ASN.3144351939 Office Visit (Internal Medic ine)on 05-27-2022 Follow-up [...] mellitus; GAVIN = N; [facility]; Last Updated By: Pratima Callahan; 05/27/2022 10:05:07 AM Continue: FreeStyle InsuLinx System w/Device Kit; USE DIRECTED Rx By: Poli Mercado; Dispense: 0 Days ; #:1 Kit; Refill: 0;For: Diabetes mellitus; GAVIN = N; Verified Transmission to [facility] [address]; Last Updated By: Pratima Callahan; 05/27/2022 10:05:07 AM Continue: FreeStyle InsuLinx Test In Vitro Strip; TEST ONCE DAILY *E11.9* Rx By: Poli Mercado; Dispense: 90 Days ; #:100 Strip; Refill: 3;For: Diabetes mellitus; GAVIN = N; Verified Transmission to [facility]; Last Updated By: Pratima Callahan; 05/27/2022 10:05:07 AM Continue: Glimepiride 1 MG Oral Tablet; TAKE 1 TABLET BY MOUTH EVERY DAY Rx By: Poli Mercado; Dispense: 90 Days ; #:90 Tablet; Refill: 2;For: Diabetes mellitus; GAVIN = N; Verified Transmission to [facility]; Last Updated By: Pratima Callahan; 05/27/2022 10:05:07 AM Continue: Lantus SoloStar 100 UNIT/ML Subcutaneous Solution Pen-injector; INJECT 20 UNITS SUBCUTANEOUSLY EVERY DAY OR AMOUNT DIRECTED Rx By: Poli Mercado; Dispense: 0 Days ; #:1 X 5 x 3 ML Pen; Refill: 1;For: Diabetes mellitus; GAVIN = N; Verified Transmission to [facility]; Last Updated By: Pratima Callahan; 05/27/2022 10:05:07 AM 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 Hemoglobin A1C; Status:In Progress - Specimen/Data Collected; Done: [id number] Perform:Lab Services - Lab To Draw (Blood Test); Due:25Aug2022;Ordered ; For: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; Ordered By:Poli Mercado; Elevated PSA Prostate Specific Antigen; Status:In Progress - Specimen/Data Collected; Done: [id number] Perform:Lab Services - Lab To Draw (Blood Test); Due:25Aug2022;Ordered ; For:Elevated PSA; Ordered By:Poli Mercado; Hyperlipidemia Continue: Atorvastatin Calcium 20 MG Oral Tablet; TAKE 1 TABLET BY MOUTH EVERY DAY Rx By: Poli Mercado; Dispense: 90 Days ; #:90 Tablet; Refill: 3;For: Hyperlipidemia; GAVIN = N; Verified Transmission to [facility]; Last Updated By: Pratima Callahan; 05/27/2022 10:05:07 AM Hypertension Start: Lisinopril 20 MG Oral Tablet; TAKE 1 TABLET DAILY Rx By: Poli Mercado; Dispense: 90 Days ; #:90 Tablet; Refill: 3;For: Hypertension; GAVIN = N; Verified Transmission to [facility]; Last Updated By: Alesha Claudio; 05/27/2022 10:28:27 AM Basic Metabolic Panel; Status:In Progress - Specimen/Data Collected; Done: [id number] Perform:Lab Services - Lab To Draw (Blood Test); Due:25Aug2022;Ordered ; For:Hypertension; Ordered By:Poli Mercado; Continue: amLODIPine Besylate 10 MG Oral Tablet; TAKE 1 TABLET BY MOUTH EVERY DAY Rx By: Poli Mercado; Dispense: 90 Days ; #:90 Tablet; Refill: 2;For: Hypertension; GAVIN = N; Verified Transmission to [facility]; Last Updated By: Pratima Callahan; 05/27/2022 10:05:07 AM Lipid Panel; Status:In Progress - Specimen/Data Collected; Done: [id number] Perform:Lab Services - Lab To Draw (Blood Test); Due:25Aug2022;Ordered ; For:Hypertension; Ordered By:Poli Mercado; Continue: Clopidogrel Bisulfate 75 MG Oral Tablet; TAKE 1 TABLET BY MOUTH EVERY DAY Rx By: Poli Mercado; Dispense: 90 Days ; #:90 Tablet; Refill: 3;For: Hypertension; GAVIN = N; Verified Transmission to [facility]; Last Updated By: Pratima Callahan; [...] Last Updated (more content not included)... Normal [facility] PROSTATE SPECIFIC AGon 05-27 Prostate specific Ag [Mass/Vol] 4.54 ng/mL High 0.00 - 4.00 [facility] Comment on above: Order Comment: RICHARD NT FASTING Result Comment: The FDA requires that the method used for PSA assay be reported to the physician. Values obtained with different assay methods must not be used interchangeably. This test was performed at [facility] using the Siemens Atellica PSA method, which is a sandwich immunoassay using chemiluminescence for quantitation. The assay is approved for measurement of prostate-specific antigen (PSA) in serum and may be used in conjunction with a digital rectal examination in men 50 years and older as an aid in detection of prostate cancer. 4-Ladqk-vnhgzeueg inhibitors (e.g. Proscar, Finasteride, Avodart, Dutasteride and Varsha) for the treatment of BPH have been shown to lower PSA levels by an average of 50% after 6 months of treatment. Performed By: #### P SA #### [facility] [address] [place] [address] Prostate Specific Antigenon 05-27-2022 Prostate specific Ag [Mass/Vol] 4.54 ng/mL above high threshold See Below [facility] Work Phone: Comment on above: Reference Range: 0.0 0 - 4.00The FDA requires that the method used for PSA assay be reported to the physician. Values obtained with different assay methods must not be used interchangeably. This test was performed at [facility] using the INSOMENIA PSA method, which is a sandwich immunoassay using chemiluminescence for quantitation. The assay is approvedfor measurement of prostate-specific antigen (PSA) in serum and may be used in conjunction with a digital rectalexamination in men 50 years and older as an aid in detection of prostate cancer. 3-Imcyh-pjcksjygg inhibitors (e.g. Proscar, Finasteride, Avodart, Dutasteride and Varsha) for the treatment of BPH have been shown to lower PSA levels by an average of 50% after 6 months of treatment. Prostatic Specific Antigen, Totalon 01-16-2022 TPSA 4.280 ng/mL High <4.000 [facility] Comment on above: Result Comment: PSA Test Method: ECLIA/Dung e 601 Performed By: #### P SA #### [facility] [address], [place] [id number] BUNon 10-08-2021 Urea nitrogen [Mass/Vol] 31 mg/dL High 7-25 [facility] Comment on above: Performed By: #### C GUSTAVO BUN #### [facility] [address], [place] [id number] Creatinineon 10-08-2021 Creatinine [Mass/Vol] 1.3 mg/dL Normal 0.7-1.4 [facility] Comment on above: Performed By: #### C GUSTAVO, BUN #### [facility] [address], [place] [id number] eGFRAA 66 mL/min/1.73m2 Normal >60 [facility] Facilities Officer Comment on above: Performed By: #### C GUSTAVO, BUN #### [facility] [address], [place] [id number] eGFRNAA 54 mL/min/1.73m2 Low >60 [facility] Facilities Officer Comment on above: Performed By: #### C GUSTAVO, BUN #### [facility] [address], [place] [id number] Hemoglobin A1Con 10-08-2021 EAG 162.81 Normal [facility] Comment on above: Performed By: #### A 1C #### [facility] [address], [place] [id number] HbA1c (Bld) [Mass fraction] 7.3 % High 4.0-6.0 [facility] Facilities Officer Comment on above: Performed By: #### A 1C #### [facility] [address], [place] [id number] Hemoglobin A1Con 09-05-2021 Glucose [Mass/Vol] 154 mg/dL [employer] [facility] on Work Phone: HbA1c (Bld) [Mass fraction] 7.0 % Abnormal [employer] on Work Phone: Comment on above: Diagnosis of Diabete s-Adults Non-Diabetic: < or = 5.6% Increased risk for developing diabetes: 5.7-6.4% Diagnostic of diabetes: > or = 6.5%. Monitoring of Diabetes Age (y) Therapeutic Goal (%) Adults: >18 <7.0 Pediatrics: 13-18 <7.5 7-12 <8.0 0- 6 7.5-8.5 [employer]. Diabetes Care 33(S1), Oct 2009. Laboratory - Chemistry and C hemistry - challengeon 09-05-2021 Anion gap [Moles/Vol] 12 mmol/L 10 - 20 [employer] Work Phone: Calcium [Mass/Vol] 10.0 mg/dL 8.6 - 10.6 [facility] Work Phone: [phone] Chloride [Moles/Vol] 103 mmol/L 98 - 107 [facility] Work Phone: CO2 [Moles/Vol] 32 mmol/L 21 - 32 [facility] Work Phone: [phone] Creatinine [Mass/Vol] 1.50 mg/dL above high threshold See Below [facility] Work Phone: [phone] Comment on above: Reference Range: 0.5 0 - 1.30 Glucose [Mass/Vol] 109 mg/dL above high threshold 74 - 99 [facility] Work Phone: [phone] Potassium [Moles/Vol] 5.2 mmol/L 3.5 - 5.3 [facility] Work Phone: [phone] Sodium [Moles/Vol] 142 mmol/L 136 - 145 [facility] Work Phone: [phone] Urea nitrogen [Mass/Vol] 26 mg/dL above high threshold 6 - 23 [facility] Work Phone: [phone] Lipid Panelon 09-05-2021 Cholesterol [Mass/Vol] 141 mg/dL 0 - 199 [facility] Work Phone: [phone] Comment on above: . AGE DESIRABLE BORD [...] guidelines reference: NCEP ATPIII Guidelines, WALTER 2001, 258:6986-97. Venipuncture immediately after or during the administration of Metamizole may lead to falsely low results. Testing should be performed immediately prior to Metamizole dosing. Cholesterol in HDL [Mass/Vol] 48.3 mg/dL [facility] on Work Phone: Comment on above: . AGE VERY LOW LOW N ORMAL HIGH 0-19 Y < 35 < 40 40-45 ---- 20-24 Y ---- < 40 >45 ---- >24 Y ---- < 40 40-60 >60. Cholesterol in LDL [Mass/Vol] 75 mg/dL 0 - 99 -[facility] on Work Phone: Comment on above: . NEAR BORD AGE ANNE RABLE OPTIMAL HIGH HIGH VERY HIGH 0-19 Y 0 - 109 --- 110-129 >/= 130 ---- 20-24 Y 0 - 119 --- 120-159 >/= 160 ---- >24 Y 0 - 99 100-129 130-159 160-189 >/=190. Cholesterol.total/Maryellen sterol in HDL [Mass ratio] 2.9 {ratio} -[facility] on Work Phone: Comment on above: REF VALUESDESIRABLE < 3.4HIGH RISK > 5.0 Triglyceride [Mass/Vol] 87 mg/dL 0 - 149 [facility] -[facility] on Work Phone: Comment on above: . AGE [...] Lipid Panel 17 mg/dL 0 - 40 -[facility] on Work Phone: No Panel Informationon 09-05 54 {mL/min/1.73m2} Abnormal >60 -[facility] on Work Phone: Comment on above: CALCULATIONS OF ARISTIDES MATED GFR ARE PERFORMED USING THE MDRD STUDY EQUATION FOR THE IDMS-TRACEABLE CREATININE METHODS. CLIN CHEM 2007;53:766-72 45 {mL/min/1.73m2} Abnormal >60 [facility] on Work Phone: Office Visit (Internal Medic ine)on [...] mellitus; GAVIN = N; Verified Transmission to [facility]167; Last Updated By: Pratima Callahan; 09/05/2021 10:22:32 AM Basic Metabolic Panel; Status:In Progress - Specimen/Data Collected; Done: 05Sep2021 Perform:Lab Services - Lab To Draw (Blood Test); Due:[id number];Ordered ; For:Diabetes mellitus; Ordered By:Poli Mercado; Continue: FreeStyle InsuLinx System w/Device Kit; USE DIRECTED Rx By: Poli Mercado; Dispense: 0 Days ; #:1 Kit; Refill: 0;For: Diabetes mellitus; GAVIN = N; Verified Transmission to [facility] [address]; Last Updated By: Pratima Callahan; 09/05/2021 10:22:32 AM Continue: FreeStyle InsuLinx Test In Vitro Strip; TEST ONCE DAILY *E11.9* Rx By: Poli Mercado; Dispense: 90 Days ; #:100 Strip; Refill: 3;For: Diabetes mellitus; GAVIN = N; Verified Transmission to [facility]6122; Last Updated By: Pratima Callahan; 09/05/2021 10:22:32 AM Continue: Glimepiride 1 MG Oral Tablet; TAKE 1 TABLET BY MOUTH EVERY DAY Rx By: Poli Mercado; Dispense: 90 Days ; #:90 Tablet; Refill: 2;For: Diabetes mellitus; GAVIN = N; Verified Transmission to [facility]; Last Updated By: Pratima Callahan; 09/05/2021 10:22:32 AM Continue: Lantus SoloStar 100 UNIT/ML Subcutaneous Solution Pen-injector; INJECT 20 UNITS SUBCUTANEOUSLY EVERYDAY Rx By: Poli Mercado; Dispense: 0 Days ; #:1 X 5 x 3 ML Pen; Refill: 1;For: Diabetes mellitus; GAVIN = N; Verified Transmission to [facility]; Last Updated By: Pratima Callahan; [...] Services - Lab To Draw (Blood Test); Due:[id number];Ordered ; For: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; Ordered By:Poli Mercado; Hyperlipidemia Continue: Atorvastatin Calcium 20 MG Oral Tablet; TAKE 1 TABLET BY MOUTH EVERY DAY Rx By: Poli Mercado; Dispense: 90 Days ; #:90 Tablet; Refill: 3;For: Hyperlipidemia; GAVIN = N; Verified Transmission to [facility]; Last Updated By: Pratima Callahan; 09/05/2021 10:22:32 AM Hypertension Continue: amLODIPine Besylate 10 MG Oral Tablet; TAKE 1 TABLET BY MOUTH EVERY DAY Rx By: Poli Mercado; Dispense: 90 Days ; #:90 Tablet; Refill: 2;For: Hypertension; GAVIN = N; Verified Transmission to [facility]; Last Updated By: Pratima Callahan; 09/05/2021 10:22:32 AM Continue: Clopidogrel Bisulfate 75 MG Oral Tablet; TAKE 1 TABLET BY MOUTH EVERY DAY Rx By: Poli Mercado; Dispense: 90 Days ; #:90 Tablet; Refill: 3;For: Hypertension; GAVIN = N; Verified Transmission to [facility]; Last Updated By: Pratima Callahan; [...] follow dm//bp History of Present [facility] [place] [facility] [place] had flu sjot/ had covid booster eye.. dr. mg sommer in [place] hg 120 s no log here, agent lantus plus glimep has a pcp in [facility] no hypos feels well drove here from [facility] this am will travel to [place] this winter Review of Systems Constitutional: no [...] (I10) Obes (more content not included)... Normal [facility] Vital Signs Date Time Vital Sign Value Performing Clinician Facility 03-01-2025 10:04-0400 Body height 170.2 cm Daja Moreno PA Work Phone: [facility] 03-01-2025 10:04-0400 Body mass index (BMI) [Ratio] 31.01 kg/m2 Daja Moreno PA Work Phone: [facility] 03-01-2025 10:04-0400 Body temperature 97.3 [degF] Daja Moreno PA Work Phone: [facility] 03-01-2025 10:04-0400 Body weight 89.81 kg Daja Moreno PA Work Phone: [facility] 03-01-2025 10:04-0400 Diastolic blood pressure 62 mm[Hg] Daja Moreno PA Work Phone: [facility] 03-01-2025 10:04-0400 Heart rate 63 /min Daja Moreno PA Work Phone: [facility] 03-01-2025 10:04-0400 SaO2% (BldA) [Mass fraction] 96 % Daja Moreno PA Work Phone: [facility] 03-01-2025 10:04-0400 Systolic blood pressure 100 mm[Hg] Daja Moreno PA Work Phone: [facility] 03-01-2025 09:03-0400 Body height 170.2 cm Tom Field DO Work Phone: [facility] 03-01-2025 09:03-0400 Body mass index (BMI) [Ratio] 31.01 kg/m2 Tom Rashida DO Work Phone: [facility] 03-01-2025 09:03-0400 Body temperature 97.3 [degF] Tom Field DO Work Phone: [facility] 03-01-2025 09:03-0400 Body weight 89.81 kg Tom Field DO Work Phone: [facility] 03-01-2025 09:03-0400 Diastolic blood pressure 62 mm[Hg] Tom Rashida DO Work Phone: [facility] 03-01-2025 09:03-0400 Heart rate 63 /min Tom Prernafelix DO Work Phone: [facility] 03-01-2025 09:03-0400 SaO2% (BldA) [Mass fraction] 96 % Tom Field DO Work Phone: [facility] 03-01-2025 09:03-0400 Systolic blood pressure 100 mm[Hg] Tom Field DO Work Phone: [facility] 01-03-2025 06:32-0400 Body height 167.64 cm GGlendy Field DO Work Phone: [facility] 01-03-2025 06:32-0400 Body temperature 97.4 [degF] Benedicto Field DO Work Phone: [facility] 01-03-2025 06:32-0400 Body weight 87.54 kg Benedicto Field DO Work Phone: [facility] 01-03-2025 06:32-0400 Diastolic blood pressure 57 mm[Hg] Benedicto Field DO Work Phone: [facility] 01-03-2025 06:32-0400 Heart rate 62 /min G. Roberto Field DO Work Phone: [facility] 01-03-2025 06:32-0400 Respiratory rate 16 /min Benedicto Field DO Work Phone: [facility] 01-03-2025 06:32-0400 SaO2% (BldA) [Mass fraction] 97 % Benedicto Field DO Work Phone: [facility] 01-03-2025 06:32-0400 Systolic blood pressure 120 mm[Hg] Benedicto Field DO Work [facility] [employer] 10-25-2024 10:130500 Body height 170.2 cm Tom Field DO Work Phone: [facility] 10-25-2024 10:130500 Body temperature 97.3 [degF] Tom Grafffelix DO Work Phone: [facility] 10-25-2024 10:13-0500 Diastolic blood pressure 60 mm[Hg] Tom Field DO Work Phone: [facility] 10-25-2024 10:130500 Heart rate 62 /min Tom Field DO Work Phone: [facility] 10-25-2024 10:13-0500 SaO2% (BldA) [Mass fraction] 97 % Tom Field DO Work Phone: [facility] 10-25-2024 10:13-0500 Systolic blood pressure 122 mm[Hg] Tom Field DO Work Phone: [facility] 10-05-2024 07:56-0500 Body height 170.2 cm Sunny Vasquez DO Work Phone: [facility] 10-05-2024 07:56-0500 Body mass index (BMI) [Ratio] 29.76 kg/m2 Sunny Vasquez DO Work Phone: [facility] 10-05-2024 07:56-0500 Body weight 86.18 kg Sunny Phank DO Work Phone: [facility] 09-06-2024 10:17-0500 Body height 170.2 cm Autumn Valencia PA Work Phone: [facility] 09-06-2024 10:17-0500 Body mass index (BMI) [Ratio] 29.76 kg/m2 Autumn Valencia PA Work Phone: [facility] 09-06-2024 10:17-0500 Body weight 86.18 kg Autumn Valencia PA Work Phone: [facility] 09-06-2024 10:17-0500 Diastolic blood pressure 74 mm[Hg] Autumn Valencia PA Work Phone: [facility] 09-06-2024 10:17-0500 Heart rate 66 /min Autumn Valencia PA Work Phone: [facility] 09-06-2024 10:17-0500 Respiratory rate 16 /min Autumn Valencia PA Work Phone: [facility] 09-06-2024 10:17-0500 SaO2% (BldA) [Mass fraction] 95 % Autumn BLACKBURN Work Phone: [facility] 09-06-2024 10:17-0500 Systolic blood pressure 130 mm[Hg] Autumn BLACKBURN Work Phone: [facility] 08-10-2024 09:10-0400 Body height 170.2 cm Sunny Vasquez DO Work Phone: [facility] 08-10-2024 09:10-0400 Body mass index (BMI) [Ratio] 30.07 kg/m2 Sunny Vasquez DO Work Phone: [facility] 08-10-2024 09:10-0400 Body weight 87.09 kg Sunny Vasquez DO Work Phone: [facility] 06-28-2024 15:12-0400 Body height 167.64 cm DO Benedicto Field Work Phone: [facility] 06-28-2024 15:12-0400 Body mass index (BMI) [Ratio] 30.2 kg/m2 DO Benedicto Field Work Phone: [facility] 06-28-2024 15:12-0400 Body weight 84.82 kg DO Benedicto Field Work Phone: [facility] 06-28-2024 15:12-0400 Diastolic blood pressure 61 mm[Hg] DO Benedicto Field Work Phone: [facility] 06-28-2024 15:12-0400 Heart rate 78 /min DO Benedicto Field Work Phone: [facility] 06-28-2024 15:12-0400 SaO2% (BldA) [Mass fraction] 98 % DO Benedicto Rodrigueznicolasafelix Work Phone: [facility] 06-28-2024 15:12-0400 Systolic blood pressure 102 mm[Hg] DO ValentinoGlendy Rodriguezleighton Work Phone: [facility] 06-18-2024 12:30-0400 Body height 172.7 cm Tom Field DO Work Phone: [facility] 06-18-2024 12:30-0400 Body mass index (BMI) [Ratio] 28.74 kg/m2 Tom Field DO Work Phone: [facility] 06-18-2024 12:30-0400 Body temperature 97.39 [degF] Tmo Field DO Work Phone: [facility] 06-18-2024 12:30-0400 Body weight 85.73 kg Tom Field DO Work Phone: [facility] 06-18-2024 12:30-0400 Diastolic blood pressure 62 mm[Hg] Tom Field DO Work Phone: [facility] 06-18-2024 12:30-0400 Heart rate 60 /min Tom Field DO Work Phone: [facility] 06-18-2024 12:30-0400 SaO2% (BldA) [Mass fraction] 100 % Tom Field DO Work Phone: [facility] 06-18-2024 12:30-0400 Systolic blood pressure 118 mm[Hg] Tom Field DO Work Phone: [facility] 06-15-2024 11:24-0400 Body height 170.18 cm DO Benedicto Rodriguezleighton Work Phone: [facility] 06-15-2024 11:24-0400 Body mass index (BMI) [Ratio] 30.4 kg/m2 DO Benedicto Lopez Myraleighton Work Phone: [facility] 06-15-2024 11:24-0400 Body weight 87.99 kg DO Benedicto Lopez Myraleighton Work Phone: [facility] 06-15-2024 11:24-0400 Diastolic blood pressure 62 mm[Hg] DO Benedicto Lopez Myraleighton Work Phone: [facility] 06-15-2024 11:24-0400 Heart rate 61 /min DO Benedicto Field Work Phone: [facility] 06-15-2024 11:24-0400 Respiratory rate 18 /min DO Benedicto Field Work Phone: [facility] 06-15-2024 11:24-0400 SaO2% (BldA) [Mass fraction] 98 % DO Benedicto Field Work Phone: [facility] 06-15-2024 11:24-0400 Systolic blood pressure 120 mm[Hg] DO Benedicto Field Work Phone: [facility] 06-15-2024 08:34-0400 Body height 172.7 cm Fer Mabelizzy SHOWPLACE MANAGER Work Phone: [facility] 06-15-2024 08:34-0400 Body mass index (BMI) [Ratio] 29.5 kg/m2 Fer Monroegel SHOWPLACE MANAGER Work Phone: [facility] 06-15-2024 08:34-0400 Body weight 88 kg Fer Bandaremeritagel SHOWPLACE MANAGER Work Phone: [facility] 06-15-2024 08:34-0400 Diastolic blood pressure 60 mm[Hg] Fer Bandarnagel SHOWPLACE MANAGER Work Phone: [facility] 06-15-2024 08:34-0400 Heart rate 75 /min Fer Mabelgel SHOWPLACE MANAGER Work Phone: [facility] 06-15-2024 08:34-0400 Systolic blood pressure 126 mm[Hg] Fer Bandarnagel SHOWPLACE MANAGER Work Phone: [facility] 06-07-2024 10:03-0400 Body height 172.7 cm Tom Grafffelix DO Work Phone: [facility] 06-07-2024 10:03-0400 Body mass index (BMI) [Ratio] 29.32 kg/m2 Tom Grafffelix DO Work Phone: [facility] 06-07-2024 10:03-0400 Body temperature 97.3 [degF] Tom Myraleighton DO Work Phone: [facility] 06-07-2024 10:03-0400 Body weight 87.45 kg Tom Field DO Work Phone: [facility] 06-07-2024 10:03-0400 Diastolic blood pressure 62 mm[Hg] Tom Field DO Work Phone: [facility] 06-07-2024 10:03-0400 Heart rate 61 /min Tom Field DO Work Phone: [facility] 06-07-2024 10:03-0400 SaO2% (BldA) [Mass fraction] 97 % Tom Field DO Work Phone: [facility] 06-07-2024 10:03-0400 Systolic blood pressure 118 mm[Hg] Tom Field DO Work Phone: [facility] 06-01-2024 10:44-0400 Body height 167.64 cm DO Benedicto Field Work Phone: [facility] 06-01-2024 10:44-0400 Body mass index (BMI) [Ratio] 31.4 kg/m2 DO Benedicto Field Work Phone: [facility] 06-01-2024 10:44-0400 Body temperature 97.8 [degF] DO Benedicto Field Work Phone: [facility] 06-01-2024 10:44-0400 Body weight 88.45 kg DO Benedicto Field Work Phone: [facility] 06-01-2024 10:44-0400 Diastolic blood pressure 76 mm[Hg] DO Benedicto Field Work Phone: [facility] 06-01-2024 10:44-0400 Heart rate 68 /min DO Benedicto Rodrigueznicolasafelix Work Phone: [facility] 06-01-2024 10:44-0400 Respiratory rate 16 /min DO Benedicto Rodriguezleighton Work Phone: [facility] 06-01-2024 10:44-0400 SaO2% (BldA) [Mass fraction] 98 % DO Benedicto Field Work Phone: [facility] 06-01-2024 10:44-0400 Systolic blood pressure 122 mm[Hg] DO Benedicto Field Work Phone: [facility] 02-09-2024 10:28-0400 Diastolic blood pressure 62 mm[Hg] DO Benedicto Field Work Phone: [facility] 02-09-2024 10:28-0400 Heart rate 62 /min DO Benedicto Field Work Phone: [facility] 02-09-2024 10:28-0400 Respiratory rate 18 /min DO Benedicto Field Work Phone: [facility] 02-09-2024 10:28-0400 SaO2% (BldA) [Mass fraction] 98 % DO Benedicto Field Work Phone: [facility] 02-09-2024 10:28-0400 Systolic blood pressure 120 mm[Hg] DO Benedicto Field Work Phone: [facility] 02-09-2024 07:44-0400 Body height 172.72 cm DO Benedicto Field Work Phone: [facility] 02-09-2024 07:44-0400 Body weight 87.09 kg DO Benedicto Field Work Phone: [facility] 07-02-2023 14:00-0400 Body height 172.72 cm Lili Gonsales Other [employer] Other 07-02-2023 14:00-0400 Body mass index (BMI) [Ratio] 31.17 kg/m2 Lili Gonsales Other [employer] [facility] [employer] Other 07-02-2023 14:00-0400 Body weight 92.99 kg Lili Gonsales Other [employer] Other 07-02-2023 14:00-0400 Diastolic blood pressure 56 mm[Hg] Lili Gonsales Other [employer] Other 07-02-2023 14:00-0400 SaO2% (BldA) [Mass fraction] 61 % Lili Gonsales Other [employer] Other 07-02-2023 14:00-0400 Systolic blood pressure 137 mm[Hg] Lili Gonsales Other [employer] Other 05-27-2022 10:03-0400 Body height 172.72 cm Ivalee C Kodz Work Phone: [employer] Work Phone: 05-27-2022 10:03-0400 Body mass index (BMI) [Ratio] 31.78 kg/m2 Ashlee C Kodz Work Phone: [employer] Work Phone: 05-27-2022 10:03-0400 Body surface area Derived from formula 2.08 m2 Ashlee C Kodz Work Phone: [employer] Work Phone: 05-27-2022 10:03-0400 Body temperature 96.4 [degF] Ivalee C Kodz [facility] Work Phone: 05-27-2022 10:03-0400 Body weight 94.8 kg Ashlee C Kodz Work Phone: [employer] [facility] Work Phone: 05-27-2022 10:03-0400 Diastolic blood pressure 62 mm[Hg] Ashlee C Kodz Work Phone: [facility] Work Phone: 05-27-2022 10:03-0400 Heart rate 70 /min Ashlee Henry Work Phone: [employer] [facility] Work Phone: 05-27-2022 10:03-0400 SaO2% (BldA) [Mass fraction] 98 % Ashlee Henry Work Phone: [employer] [facility] Work Phone: 05-27-2022 10:03-0400 Systolic blood pressure 140 mm[Hg] Ashlee Henry Work Phone: [employer] [facility] Work Phone: Encounters Encounter Date Encounter Type Care Provider Facility Start: 03-03-2025 End: 03-03-2025 ambulatory HILLARY WILHELM Not Available Start: 03-01-2025 End: 03-01-2025 Bamboo flowsheet Tom Field [employer] Work Phone: [facility] Start: 03-01-2025 End: 03-01-2025 Bamboo flowsheet Tom Field [employer] Work Phone: [facility] Start: 03-01-2025 End: 03-01-2025 Assay of hemosiderin, quant Daja BLACKBURN Work Phone: [employer] Work Phone: Start: 03-01-2025 End: 03-01-2025 Patient encounter procedure Daja BLACKBURN Work Phone: [facility] Comment on above: Routine general medi feng examination at health care facility (Primary Dx) Start: 03-01-2025 End: 03-01-2025 Office outpatient visit 25 minutes Tom Field [employer] Work Phone: [facility] 230 Comment on above: 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, unspecified vessel or lesion type, unspecified whether upper sioux or transplanted heart (CMS/HCC) (Primary Dx); Type 2 diabetes mellitus without complication, with long-term current use of insulin; Hypertension, unspecified type ([facility]/HCC); Mixed hyperlipidemia ([facility]/HCC); Stage 3a chronic kidney disease (HCC) ([facility]); Type 2 diabetes mellitus with hyperglycemia, without long-term current use of insulin ([facility]); Erectile dysfunction, unspecified erectile dysfunction type Start: 03-01-2025 End: 03-01-2025 Refill Tom Field Work Phone: [facility] 230 Comment on above: Type 2 diabetes li itus without complication, with long-term current use of insulin Start: 02-03-2025 End: 02-07-2025 Refill Sarah Connell DPM Work Phone: [facility] Comment on above: Onychomycosis Start: 02-01-2025 End: 02-01-2025 Aditi Davies MD Work Phone: [facility] Start: 02-01-2025 End: 02-01-2025 Bamboo panda Davies MD Work Phone: [facility] Start: 02-01-2025 End: 02-01-2025 Office outpatient new 30 minutes Hetal Davies MD Work Phone: [facility] Comment on above: Seborrheic keratosis (Primary Dx); Lentigines; Capillary angioma; Neoplasm of unspecified behavior of bone, soft tissue, and skin; History of skin cancer Start: 02-01-2025 End: 02-01-2025 ambulatory HETAL DAVIES Not Available Start: 01-18-2025 End: 01-18-2025 Bamboo flowsheet Sarah Connell DPM Work Phone: [facility] Start: 01-18-2025 End: 01-18-2025 Lydiao panda Connell DPM Work Phone: [facility] Start: 01-18-2025 End: 01-18-2025 Patient encounter procedure Sarah Connell DPM Work Phone: [facility] Comment on above: Onychomycosis (Prima ry Dx); Type II diabetes mellitus with neurological manifestations (CMS/HCC); Pain in both feet Start: 01-18-2025 End: 01-18-2025 ambulatory SARAH CONNELL Not Available Start: 01-13-2025 End: 01-13-2025 Refill Tom Field DO Work Phone: [facility] 230 Comment on above: Essential (primary) hypertension (CMS/HCC) Start: 01-05-2025 End: 01-05-2025 Patient encounter procedure Benedicto Field DO Work Phone: [facility]-Pacemaker Check Start: 01-05-2025 End: 01-05-2025 ambulatory Benedicto Field DO Work Phone: [facility] Work Phone: Start: 01-05-2025 Non-patient / Non-visit eBnedicto Field DO Work Phone: [facility] Start: 01-04-2025 End: 01-04-2025 ambulatory TOM FIELD Not Available Start: 01-03-2025 End: 01-03-2025 Admission to same day surgery center Benedicto Field DO Work Phone: [facility] [place] Start: 01-03-2025 End: 01-03-2025 ambulatory Benedicto Field DO Work Phone: [facility] Work Phone: Start: 12-31-2024 End: 12-31-2024 ambulatory SUE LOVING Not Available Start: 12-29-2024 End: 12-29-2024 ambulatory HILLARY WILHELM Not Available Start: 12-20-2024 End: 12-20-2024 Patient encounter procedure Benedicto Field DO Work Phone: [facility]-Pre-Surgical Testing Work Phone: Start: 12-20-2024 End: 12-20-2024 ambulatory Benedicto Field DO Work Phone: [facility] Work Phone: Start: 12-20-2024 Encounter for preprocedural laboratory examination Sunny Vasquez [facility] Start: 11-22-2024 End: 11-22-2024 ambulatory TOM Mayank RASHIDA Not Available Start: 10-25-2024 End: 10-25-2024 Bamboo flowsheet Tom Rodriguezleighton DO Work Phone: [facility] Start: 10-25-2024 End: 10-25-2024 Bamboo flowsheet Tom Rodriguezleighton DO Work Phone: [facility] Start: 10-25-2024 End: 10-25-2024 Office outpatient visit 25 minutes Tom Field DO Work Phone: [facility] 230 Comment on above: 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, unspecified vessel or lesion type, unspecified whether upper [place] or transplanted heart (CMS/HCC) (Primary Dx); 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/HCC); Chronic kidney disease, stage 3b (HCC) (CMS/HCC); Sick sinus syndrome (CMS/HCC); Hypertensive heart disease with heart failure (CMS/HCC); Hypertension, unspecified type (CMS/HCC); Mixed hyperlipidemia (CMS/HCC); Stage 3a chronic kidney disease (HCC) ([facility]/HCC); Type 2 diabetes mellitus with hyperglycemia, without long-term current use of insulin ([facility]/HCC); Raynaud's disease without gangrene Start: 10-25-2024 End: 10-25-2024 ambulatory TOM FIELD Not Available Start: 10-21-2024 End: 10-21-2024 Refill Frankie Cordon LPN Work Phone: [facility] 175 Comment on above: Myalgia Start: 10-08-2024 Non-patient / Non-visit Benedicto Field DO Work Phone: [facility] Start: 10-08-2024 End: 10-08-2024 Patient encounter procedure Benedicto Field DO Work Phone: [facility] Start: 10-08-2024 End: 10-08-2024 ambulatory Benedicto Field Facility:[facility] Start: 10-05-2024 End: 10-05-2024 Bamboo flowsheet Sunny [...] ventilation Start: 10-05-2024 End: 10-05-2024 ambulatory SUNNY VASQUEZ Not Available Start: 10-04-2024 End: 10-04-2024 Patient encounter procedure Benedicto Field DO Work Phone: [facility]-Electrodiagnostics Work Phone: Start: 10-04-2024 End: 10-04-2024 ambulatory Benedicto Field Facility:[facility] Start: 09-29-2024 End: 09-29-2024 Bamboo flowsheet Sarah Connell DPM Work Phone: [facility] Start: 09-29-2024 End: 09-29-2024 Bamboo flowsheet Sarah Connell DPM Work Phone: [facility] Start: 09-29-2024 End: 09-29-2024 Patient encounter procedure Sarah Connell DPM Work Phone: [facility] Comment on above: Onychomycosis (Prima ry Dx); Type II diabetes mellitus with neurological manifestations (CMS/HCC); Pain in both feet Start: 09-29-2024 End: 09-29-2024 ambulatory SARAH Rouse ANKIT Not Available Start: 09-27-2024 End: 09-27-2024 ambulatory SUNNY Yusuf HAILEYKimber Not Available Start: 09-27-2024 End: 09-27-2024 Patient encounter procedure Sunny Vasquez DO Work Phone: [facility] Comment on above: LOPEZ (obstructive sle ep apnea) (Primary Dx) Start: 09-23-2024 End: 09-23-2024 Telephone encounter Dwight Anand MA [facility] Start: 09-16-2024 End: 09-16-2024 ambulatory Benedicto Field Facility:[facility] Start: 09-06-2024 End: 09-06-2024 Bamboo flowsheet Autumn BLACKBURN [facility] [address] Start: 09-06-2024 End: 09-06-2024 Bamboo flowsheet Autumn BLACKBURN [facility] [address] Start: 09-06-2024 End: 09-06-2024 Office outpatient visit 25 minutes Autumn BLACKBURN Work Phone: [facility] [address] Comment on above: 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) (Primary Dx); Obstructive sleep apnea syndrome Start: 09-06-2024 End: 09-06-2024 ambulatory AUTUMN VALENCIA Not Available Start: 08-26-2024 End: 08-26-2024 Refill Tom Field DO Work Phone: [facility] Comment on above: Myalgia Onychomycosis Start: 08-23-2024 End: 08-23-2024 Telephone encounter Tom Field DO Work Phone: [facility] Start: 08-10-2024 End: 08-10-2024 Office outpatient new 45 minutes Sunny Yusuf Pedro DO Work Phone: [facility] Comment on above: Obstructive sleep ap lauri (Primary Dx); Intolerance of continuous positive airway pressure (CPAP) ventilation Start: 08-10-2024 End: 08-10-2024 ambulatory SUNNY VASQUEZ Not Available Start: 07-18-2024 End: 07-19-2024 Refill Tom Field DO Work Phone: [facility] Comment on above: Myalgia Start: 07-07-2024 End: 07-07-2024 Patient encounter procedure DO Benedicto Field Work Phone: [facility] Start: 07-07-2024 End: 07-07-2024 ambulatory DO Benedicto Field Work Phone: [facility] Work Phone: Start: 06-30-2024 End: 06-30-2024 ambulatory GISELLE GANDARA MD Facility:[facility] Start: 06-30-2024 End: 06-30-2024 Patient encounter procedure Sarah Connell DPM Work Phone: [facility] Comment on above: Onychomycosis (Prima ry Dx); Type II diabetes mellitus with neurological manifestations ([facility]) Start: 06-30-2024 End: 06-30-2024 ambulatory SARAH CONNELL Not Available Start: 06-28-2024 End: 06-28-2024 ambulatory DO Benedicto Field Work Phone: [facility] Work Phone: Start: 06-28-2024 End: 06-28-2024 Patient encounter procedure DO Benedicto Field Work Phone: [facility] Work Phone: Start: 06-27-2024 End: 06-27-2024 ambulatory Valentino FIELD DO Facility:[facility] Start: 06-18-2024 End: 06-18-2024 Bamboo flowsheet Tom Field DO Work Phone: [facility] Start: 06-18-2024 End: 06-18-2024 Bamboo flowsheet Tom Field DO Work Phone: [facility] Start: 06-18-2024 End: 06-18-2024 Office outpatient visit 25 minutes Tom Field DO Work Phone: [facility] 230 Comment on above: 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, unspecified vessel or lesion type, unspecified whether upper [place] or transplanted heart (CMS/HCC) (Primary Dx); Type 2 diabetes mellitus without complication, with long-term current use of insulin (CMS/HCC); 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); Mixed hyperlipidemia (CMS/HCC); Hypertension, unspecified type (CMS/HCC); Hypothyroidism, unspecified type (CMS/HCC) Start: 06-18-2024 End: 06-18-2024 ambulatory TOM RODRIGUEZNICOLASAFELIX Not Available Start: 06-15-2024 End: 06-15-2024 Bamboo flowsheet Fer García SHOWPLACE MANAGER Work Phone: [facility] Start: 06-15-2024 End: 06-15-2024 Bamboo flowsheet Fer García SHOWPLACE MANAGER Work Phone: [facility] [employer] [address] Start: 06-15-2024 End: 06-16-2024 Orders Only Tom Field DO Work Phone: [facility] Department Unsolicited Start: 06-15-2024 End: 06-15-2024 ambulatory DO Beendicto Rodrigueznicolasafelix Work Phone: [facility] Work Phone: Start: 06-15-2024 End: 06-15-2024 Patient encounter procedure DO Benedicto Field Work Phone: [facility] Cardiology Work Phone: Start: 06-15-2024 End: 06-15-2024 Office outpatient visit 25 minutes Fer García SHOWPLACE MANAGER Work Phone: [facility] [employer] [address] Comment on above: Parkinson's disease with dyskinesia and fluctuating manifestations ([facility]/HCC) (Primary Dx) Start: 06-15-2024 End: 06-15-2024 ambulatory FER GARCÍA Not Available Start: 06-07-2024 End: 06-07-2024 Office outpatient visit 25 minutes Tom Field DO Work Phone: [facility] 230 Comment on above: 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) (Primary Dx); Peripheral vascular disease (CMS/HCC); Hypertension, unspecified type (CMS/HCC); Hypothyroidism, unspecified type (CMS/HCC); Stage 3a chronic kidney disease (HCC) (CMS/HCC); 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, unspecified vessel or lesion type, unspecified whether upper [place] or transplanted heart (CMS/HCC); Type 2 diabetes mellitus with hyperglycemia, without long-term current use of insulin ([facility]); Myalgia Start: 06-07-2024 End: 06-07-2024 ambulatory TOM FIELD Not Available Start: 06-01-2024 End: 06-01-2024 ambulatory DO Benedicto Field Work Phone: [facility] Work Phone: Start: 06-01-2024 End: 06-01-2024 Patient encounter procedure DO Benedicto Field Work Phone: [facility] Vascular Surgery Work Phone: Start: 04-13-2024 End: 04-13-2024 ambulatory DAJA MORENO Not Available Start: 03-26-2024 End: 03-26-2024 ambulatory TOM FIELD Not Available Start: 03-23-2024 End: 03-23-2024 ambulatory FER GARCÍA Not Available Start: 03-22-2024 End: 03-22-2024 ambulatory SARAH CONNELL Not Available Start: 03-11-2024 End: 03-11-2024 ambulatory TOM FIELD Not Available Start: 02-25-2024 End: 02-26-2024 ambulatory Uday Raman Facility:[facility] Start: 02-09-2024 Non-patient / Non-visit DO Benedicto Field Work Phone: [facility] Gastroenterology Work Phone: Start: 02-09-2024 End: 02-09-2024 Admission to same day surgery center DO Benedicto Field Work Phone: [facility] Work Phone: Start: 02-09-2024 End: 02-09-2024 ambulatory DO Benedicto Field Work Phone: [facility] Work Phone: Start: 10-01-2023 End: 10-01-2023 ambulatory DO Benedicto Field Work Phone: [facility] Work Phone: Start: 10-01-2023 End: 10-01-2023 Patient encounter procedure DO Benedicto Field Work Phone: [facility] Work Phone: Start: 07-02-2023 Office outpatient ne w [address] [facility] Start: 07-02-2023 End: 07-02-2023 ambulatory DO Benedicto Field Work Phone: [facility] Work Phone: Start: 07-02-2023 End: 07-02-2023 Patient encounter procedure DO Benedicto Field Work Phone: [facility] Work Phone: Start: 03-13-2023 ambulatory DEANNA FAUST . Facili ty:H1 Start: 02-25-2023 End: 02-25-2023 ambulatory NARENDRANATH LAKSHMIPATHY . Facility:H1 Start: 02-06-2023 End: 02-07-2023 ambulatory NARENDRANATH LAKSHMIPATHY . Facility:H1 Start: 01-28-2023 End: 01-29-2023 ambulatory TOM FIELD Facility[facility] Start: 01-09-2023 End: 01-10-2023 ambulatory NARENDRANATH LAKSHMIPATHY . Facility:H1 Start: 01-02-2023 ambulatory DIAMANTE SPAULDING . Facility:H 1 Start: 12-19-2022 End: 12-20-[address] SADIE PERRY . Facility:H1 Start: 12-14-2022 Rx Renewal Ashlee C Kodz Work Phone: [facility] Work Phone: Start: 12-02-2022 End: 12-03-2022 ambulatory Valentino FIELD DO Facility:[id number] Start: 12-02-2022 End: 12-03-2022 ambulatory Valentino FIELD DO Facility:[id number] Start: 11-12-2022 End: 11-13-[address] SADIE PERRY . Facility:H1 Start: 10-24-[address] SADIE PERRY . Faci lity:H1 Start: 10-24-2022 Rx Renewal Ashlee C Kodz Work Phone: [facility] Work Phone: Start: 10-21-2022 ambulatory Poli Krugeranival [facility] [id number] Start: 10-18-2022 Rx Renewal Ashlee C Kodz Work Phone: [facility] Work Phone: Start: 10-01-2022 End: 10-01-[address] SADIE PERRY . Facility:H1 Start: 09-03-2022 End: 09-04-[address] SADIE PERRY . Facility:H1 Start: 08-04-2022 Rx Renewal Ashlee C Kodz Work Phone: -[facility] Work Phone: Start: 05-29-2022 AUDIT Ivalee C Kodz Work Phone: [employer] Work Phone: Start: 05-27-2022 Office outpatient vi sit 25 minutes Ivalee C Kodz Work Phone: [employer] Work Phone: Start: 05-27-2022 ambulatory Poli Vanegas [id number] Start: 05-23-2022 End: 05-24-[address] SADIE PERRY . Facility:H1 Start: 05-10-2022 Rx Renewal Ashlee C Kodz Work Phone: -[facility] Work Phone: Start: 03-04-2022 Telephone encounter Ashlee C Ko dz Work Phone: -[facility] Work Phone: Start: 02-28-2022 End: 03-01-[address] SADIE PERRY . Facility:H1 Start: 12-18-2021 Rx Renewal Ashlee C Kodz Work Phone: -[facility] Work Phone: Start: 10-06-2021 Rx Renewal Ashlee C Kodz Work Phone: -[facility] Work Phone: Start: 09-26-2021 AUDIT Ashlee C Kodz Work Phone: [facility] Work Phone: Start: 09-10-2021 AUDIT Ashlee C Kodz Work Phone: -[facility] Work Phone: Start: 09-06-2021 Rx Renewal Ashlee C Kodz Work Phone: -[facility] Work Phone: Start: 09-05-2021 Office outpatient vi sit 15 minutes Ivalee C Kodz Work Phone: [facility] Work Phone: Start: 09-05-2021 Patient encounter procedure Ashlee C Kodz Work Phone: -[facility] Work Phone: Start: 08-12-2021 Rx Renewal Ashlee C Kodz Work Phone: [employer] [facility] Work Phone: Start: 03-09-2021 Rx Renewal Ashlee Henry Work Phone: [employer] [facility] Work Phone: Start: 02-23-2020 Patient encounter procedure Poli Mercado MD -[facility] Work Phone: Start: 08-25-2019 Patient encounter procedure Poli Mercado MD -[employer] [facility] Work Phone: Start: 04-07-2019 Patient encounter procedure Poli Mercado MD -[facility] Work Phone: Procedures Date Procedure Procedure Detail Performing Clinician Start: 02-01-2025 SKIN / NAIL BIOPSY Dinesh Davies MD Work Phone: Start: 06-15-2024 Complete blood count with white cell differential, automated Tom Field DO Work Phone: Start: 06-15-2024 Comprehensive metabo lic panel Tom Field DO Work Phone: Start: 06-15-2024 Lipid panel Tom Talley Kimber kearneygladis DO Work Phone: Start: 06-15-2024 SPECIMEN STATUS REPORT Tom Field DO Work Phone: Start: 06-15-2024 Urine albumin quantitative Tom Mayank [employer] Work Phone: Start: 06-01-2024 Ankle brachial press ure index DO Benedicto Lopez [employer] Work Phone: Start: 02-09-2024 Colonoscopy DO Benedicto gaytan Rashida Work Phone: History of Cath Plac ement Of Stent 3 Poli Mercado MD Total knee replacement Yolanda Mercado MD Comment on above: Bilateral; Plan of Treatment Date Care Activity Detail Author Start: 11-15-2026 Glaucoma screening Diabetes: Retinopathy Screening [facility] Start: 04-23-2026 Glaucoma screening Diabetes: Retinopathy Screening [facility] Start: 03-01-2026 Medicare Annual Wellness (AWV) Medicare Annual Wellness (AWV) [facility] Start: 02-22-2026 Urine screening for protein Diabetes: Urine Protein Screening [facility] Start: 02-01-2026 End: 02-01-2026 Patient encounter procedure 02/01/2026 9:05 AM EDT Office Visit [facility] [address] [place] [phone] Hetal Davies MD [address] [place] [address] [facility] Start: 10-19-2025 Urine screening for protein Diabetes: Urine Protein Screening [facility] Start: 06-15-2025 Urine screening for protein Diabetes: Urine Protein Screening [facility] Start: 06-14-2025 End: 06-14-2025 Patient encounter procedure 06/14/2025 9:00 AM EDT Office Visit [facility] [address] [place] [phone] Tom Field DO [address] [place] [address] [facility] [address] Start: 05-30-2025 End: 07-29-2025 CBC W Auto Differential panel - Blood CBC and differential Lab Routine Type 2 diabetes mellitus without complication, with long-term current use of insulin 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, unspecified vessel or lesion type, unspecified whether upper sioux or transplanted heart ([facility]) Hypertension, unspecified type ([facility]) Mixed hyperlipidemia ([facility]) Stage 3a chronic kidney disease (HCC) ([facility]) Type 2 diabetes mellitus with hyperglycemia, without long-term current use of insulin ([facility]) Erectile dysfunction, unspecified erectile dysfunction type Expected: 05/30/2025 (Approximate), Expires: 07/29/2025 [facility] Comment on above: Expected: 05/30/2025 (Approximate), Expi res: 07/29/2025 Start: 05-30-2025 End: 07-29-2025 Comprehensive metabolic 2000 panel - Serum or Plasma Comprehensive metabolic panel Lab Routine Type 2 diabetes mellitus without complication, with long-term current use of insulin 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, unspecified vessel or lesion type, unspecified whether upper sioux or transplanted heart ([facility]) Hypertension, unspecified type ([facility]/HCC) Mixed hyperlipidemia ([facility]) Stage 3a chronic kidney disease (HCC) ([facility]) Type 2 diabetes mellitus with hyperglycemia, without long-term current use of insulin ([facility]) Erectile dysfunction, unspecified erectile dysfunction type Expected: 05/30/2025 (Approximate), Expires: 07/29/2025 [facility] Comment on above: Expected: 05/30/2025 (Approximate), Expi res: 07/29/2025 Start: 05-30-2025 End: 07-29-2025 Hemoglobin A1c/Hemoglobin.total in Blood Hemoglobin A1c Lab Routine Type 2 diabetes mellitus without complication, with long-term current use of insulin Expected: 05/30/2025 (Approximate), Expires: 07/29/2025 [facility] Comment on above: Expected: 05/30/2025 (Approximate), Expi res: 07/29/2025 Start: 05-30-2025 End: 07-29-2025 Microalbumin/Creatinine panel in random Urine Microalbumin / creatinine urine ratio Lab Routine Type 2 diabetes mellitus without complication, with long-term current use of insulin Expected: 05/30/2025 (Approximate), Expires: 07/29/2025 [facility] Work Phone: Comment on above: Expected: 05/30/2025 (Approximate), Expi res: 07/29/2025 Start: 05-25-2025 Hemoglobin A1c measurement Diabetes: Hemoglobin A1C [facility] Start: 04-25-2025 End: 04-25-2025 Patient encounter procedure 04/25/2025 10:15 AM EDT Procedure Visit [facility] [address] [place] [phone] Sarah Connell DPM [address] [place] [address] [facility] Start: 04-06-2025 End: 04-06-2025 Patient encounter procedure 04/06/2025 1:30 PM EDT Office Visit [facility] [address] [place] [address] Silvestre Key MD [address] [place] [address] [facility] Start: 03-26-2025 Urine screening for protein Diabetes: Urine Protein Screening [facility] Start: 03-23-2025 End: 03-23-2025 Patient encounter procedure 03/23/2025 10:00 AM EDT Office Visit [facility] [address] [place] [phone] Hillary Wilhelm PA [address] [place] [address] [facility] Start: 03-03-2025 End: 03-03-2025 Patient encounter procedure 03/03/2025 8:40 AM EDT Office Visit [facility] [address] [place] [phone] Hillary Wilhelm PA [address] [place] [address] [facility] Start: 03-01-2025 End: 03-01-2025 Patient encounter procedure [facility] [address] Comment on above: Arrived Start: 02-22-2025 End: 10-25-2025 CBC W Auto Differential panel - Blood CBC and differential Lab Routine 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/HCC) Chronic kidney disease, stage 3b (HCC) (CMS/HCC) Sick sinus syndrome (CMS/HCC) Hypertensive heart disease with heart failure (CMS/HCC) 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, unspecified vessel or lesion type, unspecified whether upper sioux or transplanted heart (CMS/HCC) Hypertension, unspecified type (CMS/HCC) Mixed hyperlipidemia (CMS/HCC) Stage 3a chronic kidney disease (HCC) (CMS/HCC) Type 2 diabetes mellitus with hyperglycemia, without long-term current use of insulin (CMS/HCC) Raynaud's disease without gangrene Expected: 02/22/2025 (Approximate), Expires: 10/25/2025 [facility] Comment on above: Expected: 02/22/2025 (Approximate), Expi res: 10/25/2025 Start: 02-22-2025 End: 10-25-2025 Comprehensive metabolic 2000 panel - Serum or Plasma Comprehensive metabolic panel Lab Routine Type 2 diabetes mellitus with diabetic chronic kidney disease ([facility]/HCC) Chronic kidney disease, stage 3b (HCC) ([facility]/HCC) Sick sinus syndrome (CMS/HCC) Hypertensive heart disease with heart failure (CMS/HCC) 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, unspecified vessel or lesion type, unspecified whether upper sioux or transplanted heart (CMS/HCC) Hypertension, unspecified type (CMS/HCC) Mixed hyperlipidemia (CMS/HCC) Stage 3a chronic kidney disease (HCC) ([facility]/HCC) Type 2 diabetes mellitus with hyperglycemia, without long-term current use of insulin ([facility]/HCC) Raynaud's disease without gangrene Expected: 02/22/2025 (Approximate), Expires: 10/25/2025 [facility] Comment on above: Expected: 02/22/2025 (Approximate), Expi res: 10/25/2025 Start: 02-22-2025 End: 10-25-2025 Hemoglobin A1c/Hemoglobin.total in Blood Hemoglobin A1c Lab Routine 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/HCC) Expected: 02/22/2025 (Approximate), Expires: 10/25/2025 [facility] Comment on above: Expected: 02/22/2025 (Approximate), Expi res: 10/25/2025 Start: 02-22-2025 End: 10-25-2025 Lipid 1996 panel - Serum or Plasma Lipid panel Lab Routine 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, unspecified vessel or lesion type, unspecified whether upper sioux or transplanted heart ([facility]/HCC) Hypertension, unspecified type (CMS/HCC) Expected: 02/22/2025 (Approximate), Expires: 10/25/2025 [facility] Comment on above: Expected: 02/22/2025 (Approximate), Expi res: 10/25/2025 Start: 02-22-2025 End: 10-25-2025 Microalbumin/Creatinine panel in random Urine Microalbumin / creatinine urine ratio Lab Routine 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/HCC) Expected: 02/22/2025 (Approximate), Expires: 10/25/2025 [facility] Work Phone: Comment on above: Expected: 02/22/2025 (Approximate), Expi res: 10/25/2025 Start: 02-01-2025 End: 02-01-2025 Patient encounter procedure [facility] Comment on above: Arrived Start: 01-18-2025 End: 01-18-2025 Patient encounter procedure [facility] Comment on above: Arrived Start: 01-17-2025 Hemoglobin A1c measurement Diabetes: Hemoglobin A1C [facility] Start: 01-03-2025 [facility] Start: 01-03-2025 Neurostimulation of cranial nerve OR Inspire Hypoglossal Nerve Stim Imp (Not Applicable) [facility] Start: 12-29-2024 End: 12-29-2024 Patient encounter procedure [facility] Start: 11-03-2024 Medicare Annual Wellness (AWV) Medicare Annual Wellness (AWV) [facility] Start: 11-01-2024 End: 11-01-2024 Patient encounter procedure 11/01/2024 8:40 AM EST Office Visit [facility] [address] [facility] [address] [place] [phone] Fer García, SHOWPLACE MANAGER [address] [place] [address] [facility] Start: 10-25-2024 End: 10-25-2024 Patient encounter procedure [facility] Comment on above: Type 2 diabetes mellitus with diabetic c hronic kidney disease (CMS/HCC); Chronic kidney disease, stage 3b (HCC) (CMS/HCC); Sick sinus syndrome (CMS/HCC); Hypertensive heart disease with heart failure (CMS/HCC) Start: 10-18-2024 End: 06-18-2025 CBC W Auto Differential panel - Blood CBC and differential Lab Routine Mixed hyperlipidemia (CMS/HCC) Hypertension, unspecified type (CMS/HCC) Hypothyroidism, unspecified type (CMS/HCC) Expected: 10/18/2024 (Approximate), Expires: 06/18/2025 [facility] Comment on above: Expected: 10/18/2024 (Approximate), Expi res: 06/18/2025 Start: 10-18-2024 End: 06-18-2025 Comprehensive metabolic 2000 panel - Serum or Plasma Comprehensive metabolic panel Lab Routine 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, unspecified vessel or lesion type, unspecified whether upper sioux or transplanted heart (CMS/HCC) Type 2 diabetes mellitus without complication, with long-term current use of insulin (CMS/HCC) 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) Expected: 10/18/2024 (Approximate), Expires: 06/18/2025 [facility] Comment on above: Expected: 10/18/2024 (Approximate), Expi res: 06/18/2025 Start: 10-18-2024 End: 06-18-2025 Hemoglobin A1c/Hemoglobin.total in Blood Hemoglobin A1c Lab Routine Type 2 diabetes mellitus without complication, with long-term current use of insulin (CMS/HCC) Expected: 10/18/2024 (Approximate), Expires: 06/18/2025 [facility] Comment on above: Expected: 10/18/2024 (Approximate), Expi res: 06/18/2025 Start: 10-18-2024 End: 06-18-2025 Microalbumin/Creatinine panel in random Urine Microalbumin / creatinine urine ratio Lab Routine 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, unspecified vessel or lesion type, unspecified whether upper sioux or transplanted heart (CMS/HCC) Type 2 diabetes mellitus without complication, with long-term current use of insulin (CMS/HCC) Diabetic nephropathy associated with type 2 diabetes mellitus (HCC) ([facility]/HCC) Hypertension, unspecified type (CMS/HCC) Expected: 10/18/2024 (Approximate), Expires: 06/18/2025 [facility] Work Phone: Comment on above: Expected: 10/18/2024 (Approximate), Expi res: 06/18/2025 Start: 10-05-2024 End: 10-05-2024 Patient encounter procedure [facility] Comment on above: Arrived Start: 09-29-2024 End: 09-29-2024 Patient encounter procedure [facility] Comment on above: Arrived Start: 09-27-2024 End: 09-27-2024 Patient encounter procedure 09/27/2024 10:20 AM EST Office Visit [facility] [address] [place] [address] Tom Field, DO [address] [place] [address] [facility] Start: 09-14-2024 Hemoglobin A1c measurement Diabetes: Hemoglobin A1C [facility] Start: 09-07-2024 End: 09-07-2024 Patient encounter procedure 09/07/2024 10:00 AM EST Office Visit [facility] [address] [facility] [address] [place] [address] [address] Fer García, SHOWPLACE MANAGER [address] [place] [address] [facility] Start: 09-06-2024 End: 09-06-2024 Patient encounter procedure [facility] Comment on above: Arrived Start: 08-10-2024 End: 08-10-2024 Patient encounter procedure 08/10/2024 9:30 AM EDT Office Visit [facility] [place] [address] [place] [address] Sunny Vasquez, DO [address] [place] [address] [facility] [place] Start: 06-28-2024 End: 06-28-2024 Patient encounter procedure 06/28/2024 8:00 AM EDT Procedure Visit [facility] [address] [place] [address] Sarah Connell DPM [address] [place] [address] [facility] Start: 06-18-2024 End: 06-18-2024 Patient encounter procedure 06/18/2024 12:20 PM EDT Office Visit [facility] [address] [place] [address] Tom Field DO [address] [place] [address] Arrived [facility] [address] Comment on above: Arrived Start: 06-15-2024 End: 06-15-2024 Patient encounter procedure [facility] [address] Comment on above: Arrived Start: 06-13-2024 Influenza vaccination Influenza Vaccine (#1) [facility] Start: 06-01-2024 Ankle brachial pressure index [facility] Start: 05-03-2024 Hemoglobin A1c measurement Diabetes: Hemoglobin A1C [facility] Start: 02-09-2024 [facility] Start: 10-21-2022 FUV, Provider: Poli Mercado, Status: Pen, Time: 9:45 AM FUV, Provider: Poli Mercado, Status: Pen, Time: 9:45 AM [employer] [facility] Work Phone: Start: 05-27-2022 FUV, Provider: Poli Mercado, Status: Pen, Time: 11:00 AM FUV, Provider: Poli Mercado, Status: Pen, Time: 11:00 AM [employer] [facility] Work Phone: Start: 05-02-2022 FUV, Provider: Poli Mercado, Status: Pen, Time: 10:30 AM FUV, Provider: Poli Mercado, Status: Pen, Time: 10:30 AM [employer] [facility] Work Phone: Start: 09-05-2021 FUV, Provider: Poli Mercado, Status: Pen, Time: 10:00 AM FUV, Provider: Poli Mercado, Status: Pen, Time: 10:00 AM [facility] Work Phone: Dermatopathology exam Dermatopat hology exam Pathology and Cytology Timed Neoplasm of unspecified behavior of bone, soft tissue, and skin Release Upon Ordering for 1 Occurrences starting 02/01/2025 [facility] Work Phone: Comment on above: Release Upon Ordering for 1 Occurrences starting 02/01/2025 Patient Education [facility] Work Phone: Patient referral [facility] Work Phone: [facility] Immunizations Immunization Date Immunization Notes Care Provider Fa carolyn 10-21-2024 COVID-19 (PFIZER) 12Y and older Benedicto Field DO Work Phone: [facility] 08-12-2024 Seasonal trivalent influenza vaccine, adjuvanted, preservative free Dwight Anand MA [facility] 06-22-2024 RSV, recombinant, protein subunit RSVpreF, adjuvant reconstitu, 120mcg/0.5mL, PF (Arexvy) Sunny Vasquez DO Work Phone: [facility] 09-14-2023 COVID-19 (PFIZER) 12Y and older Benedicto Field DO Work Phone: [facility] 08-27-2023 Influenza, Seasonal, Quadrivalent, Adjuvanted Tom Field DO Work Phone: [facility] 08-27-2023 influenza virus vacc ine, unspecified formulation Tom Field DO Work Phone: [facility] 10-24-2022 Pneumococcal Conjuga te PCV 20 Tom Field DO Work Phone: [facility] 08-24-2022 Moderna Bivalent Conrad ster Vaccination Tom Field DO Work Phone: [facility] 08-24-2022 Pfizer COVID-19 Vac Bivalent 30 MCG/0.3ML Intramuscular Suspension Ashlee Henry Work Phone: [facility] 07-22-2022 Influenza, High-dose Seasonal, Quadrivalent, Preservative Free Tom Field DO Work Phone: [facility] 07-18-2022 influenza, injectabl e, quadrivalent, contains preservative Ashlee C Kodz Work Phone: [facility] Work Phone: 01-24-2022 Moderna COVID-19 Vac cine 100 MCG/0.5ML Intramuscular Suspension Ashlee C Kodz Work Phone: [facility] 08-09-2021 Moderna COVID-19 Vac cine 100 MCG/0.5ML Intramuscular Suspension Ivalee C Kodz Work Phone: [facility] 2021 Fluzone High-Dose Quadrivalent 0.7 ML Intramuscular Suspension Prefilled Syringe Ivalee C Kodz Work Phone: [facility] Work Phone: 2021 influenza, high dose seasonal, preservative-free Tom Field DO Work Phone: [facility] 12-05-2020 Moderna COVID-19 Vac cine 100 MCG/0.5ML Intramuscular Suspension Ivalee C Kodz Work Phone: [facility] 11-07-2020 Moderna COVID-19 Vac cine 100 MCG/0.5ML Intramuscular Suspension Ivalee C Kodz Work Phone: [facility] 10-04-2020 zoster vaccine recombinant Ivalee C Kodz Work Phone: [facility] Work Phone: 08-04-2020 zoster vaccine recombinant Ashlee C Kodz Work Phone: [facility] Work Phone: 2020 Fluad Quadrivalent 0 .5 ML Intramuscular Prefilled Syringe Ashlee C Kodz Work Phone: -[facility] Work Phone: 07-28-2019 influenza, high dose seasonal, preservative-free Poli Mercado MD -[facility] Work Phone: Comment on above: Series: 07-28-2019 influenza, injectabl e, quadrivalent, preservative free Tom Kaftan DO Work Phone: [facility] 08-25-2018 pneumococcal polysaccharide vaccine, 23 valent Ivalee C Kodz Work Phone: [facility] 07-13-2018 influenza, high dose seasonal, preservative-free Ashlee C Kodz Work Phone: [facility] Work Phone: 07-13-2018 influenza, injectabl e, quadrivalent, preservative free Tom Kaftan DO Work Phone: [facility] 07-28-2017 influenza, high dose seasonal, preservative-free Ashlee C Kodz Work Phone: [facility] Work Phone: 07-28-2017 influenza, injectabl e, quadrivalent, preservative free Tom Kaftan DO Work Phone: [facility] 07-26-2015 influenza, high dose seasonal, preservative-free Ivalee C Kodz Work Phone: [facility] Work Phone: 07-26-2015 influenza, injectabl e, quadrivalent, preservative free Tom Kaftan DO Work Phone: [facility] 09-23-2014 tetanus toxoid, redu priyank diphtheria toxoid, and acellular pertussis vaccine, adsorbed Tom Kaftan DO Work Phone: [facility] 07-21-2014 influenza, high dose seasonal, preservative-free Poli Mercado MD [facility] Work Phone: Comment on above: Series: 11-04-2012 pneumococcal polysaccharide vaccine, 23 valent Poli Mercado MD -[facility] Work Phone: Comment on above: Series: 10-09-2012 zoster vaccine, live Poli Mercado MD -[facility] Work Phone: Comment on above: Series: Payers Date Payer Category Payer Self-pay [id number] 2022 Unknown 2008 Medicare 2008 Private Health Insurance 1959 Medicare [id number] 1959 Unknown [id number] 1945 Unknown [id number] 2.16.840.1.546695.3.579.2.356 1945 Unknown [id number] 2.16.840.1.222650.3.579.2.356 1945 Unknown [id number] 2.16.840.1.651551.3.579.2.159 1945 Unknown [id number] 2.16.840.1.091538.3.579.2.159 1945 Unknown [id number] 2.16.840.1.805049.3.579.2.718 1945 Unknown [id number] 2.16.840.1.641592.3.579.2.593 1945 Unknown [id number] 2.16.840.1.542609.3.579.2.593 1945 Unknown [id number] 2.16.840.1.173939.3.579.2.593 1945 Unknown [id number] 2.16.840.1.948130.3.579.2.593 1945 Unknown [id number] 2.16.840.1.944978.3.579.2.593 1945 Unknown [id number] 2.16.840.1.442254.3.579.2.593 1945 Unknown [id number] 2.16.840.1.174792.3.579.2.593 1945 Unknown [id number] 2.16.840.1.826130.3.579.2.593 1945 Unknown [id number] 2.16.840.1.093936.3.579.2.593 1945 Unknown [id number] 2.16.840.1.529585.3.579.2.593 1945 Unknown [id number] 2.16.840.1.673526.3.579.2.593 1945 Unknown [id number] 2.16.840.1.540184.3.579.2.593 1945 Unknown [id number] 2.840.1.155564.3.579.2.159 1945 Unknown [id number] 2.16.840.1.065866.3.579.2.159 1945 Unknown [id number] 2.16.840.1.324311.3.579.2.159 1945 Unknown [id number] 2..840.1.380799.3.579.2.125 9 1945 Unknown [id number] 2..840.1.771258.3.579.2.125 9 1945 Unknown [id number] 2.16.840.1.067062.3.579.2.125 9 1945 Unknown [id number] 2.16.840.1.662525.3.579.2.125 9 1945 Unknown [id number] 2.16.840.1.267552.3.579.2.125 9 1945 Unknown [id number] 2.16.840.1.220522.3.579.2.125 9 1945 Unknown [id number] 2.16.840.1.781067.3.579.2.125 9 1945 Unknown [id number] 2.16.840.1.020809.3.579.2.125 9 1945 Unknown [id number] 2.16.840.1.743926.3.579.2.125 9 1945 Unknown [id number] 2.16.840.1.961976.3.579.2.125 9 1945 Unknown [id number] 2.16.840.1.476595.3.579.2.125 9 1945 Unknown [id number] 2.16.840.1.196593.3.579.2.125 9 1945 Unknown [id number] 2.16.840.1.974897.3.579.2.125 9 1945 Unknown [id number] 2.16.840.1.162412.3.579.2.125 9 1945 Unknown [id number] 2.16.840.1.874254.3.579.2.125 9 1945 Unknown [id number] 2.16.840.1.211675.3.579.2.125 9 1945 Unknown [id number] 2.16.840.1.173344.3.579.2.125 9 1945 Unknown [id number] 2.16.840.1.204765.3.579.2.125 9 1945 Unknown [id number] 2.16.840.1.227397.3.579.2.125 9 1945 Unknown [id number] 2.16.840.1.940162.3.579.2.125 9 1945 Unknown [id number] 2.16.840.1.676305.3.579.2.125 9 1945 Unknown [id number] 2.16.840.1.780335.3.579.2.125 9 1945 Unknown [id number] 2.16.840.1.408829.3.579.2.125 9 1945 Unknown [id number] 2.16.840.1.495649.3.579.2.125 9 Medicare Medicare Outpatient [id number] Unknown [id number] 2.16.840.1.193210.3.579.2.531 Unknown [id number] 2.16.840.1.558584.3.579.2.531 Unknown [id number] 2.16.840.1.113354.3.579.2.531 Unknown [id number] 2.16.840.1.179532.3.579.2.531 Unknown [id number] 2.16.840.1.584407.3.579.2.531 Unknown [id number] 2.16.840.1.953613.3.579.2.531 Unknown [id number] 2.16.840.1.177033.3.579.2.531 Unknown [id number] 2.16.840.1.110296.3.579.2.531 Unknown [id number] 2.16.840.1.791122.3.579.2.531 Unknown [id number] 2.16.840.1.948727.3.579.2.531 Unknown [id number] 2.16.840.1.476251.3.579.2.531 Social History Date Type Detail Facility Start: 03-17-2024 End: 03-25-2024 Never Drank Alcohol Never Drank Alcohol [facility] Comment on above: Quit 1987 (1PPD x 20 years); Start: 03-17-2024 End: 03-25-2024 Sex Assigned At [facility] Start: 06-04-2020 End: 01-04-2025 Tobacco smoking status OHIS Ex-smoker (finding) [facility] Start: 1945 Sex Assigned At Male F [facility] Start: 05-15-2023 Tobacco smoking stat us NHIS Never smoked tobacco [facility] Start: 05-15-2023 End: 01-04-2025 Tobacco use and exposure Smokeless tobacco non-user [facility] Start: 06-30-2024 End: 03-01-2025 Alcoholic beverage intake Ex-drinker (finding) [facility] How often do you nee d to have someone help you when you read instructions, pamphlets, or other written material from your doctor or pharmacy [SILS] Rarely [facility] Do you belong to any clubs or organizations such as orthodox groups, unions, fraternal or athletic groups, or [...] Not at all [facility] (I/We) worried christine er (my/our) food would run out before (I/we) got money to buy more. Never true [facility] Start: 09-11-2023 Alcohol Comment caffeine intak e : none [facility] Start: 1945 Sex assigned at Not on file [facility] Start: 12-21-2024 End: 01-06-2025 Sex Male (finding) [facility] History of tobacco use Current smoker [facility] History of tobacco use Cigarette Smoker [facility] How often do you nee d to have someone help you when you read instructions, pamphlets, or other written material from your doctor or pharmacy [SILS] Rarely [facility] NEGATED: Highlighted row - - [facility] Work Phone: Medical Equipment Procedure Code Equipment [...] Active Start: 02-23-2014 Use daily as directed [id number] Start: 02-02-2024 Goals Date Patient Goal Desired Activity /State Functional Status Date Assessment Result Facility 03-01-2025 Patient Health Questionnaire 2 item (PHQ-2) [Reported] [facility] NEGATED: Highlighted row Functional performance Functional status health issues are not documented Disease -[facility] Work Phone: Mental Status Date Assessment Result Facility NEGATED: Highlighted row Cognitive function [Interpretation] Cognitive status health issues are not documented Disease [facility] Work Phone: Clinical Notes 02-28-2022 to 03-01-2025 BERE Montenegro - 03/01/2025 9:20 AM Savi Field DO - 03/01/2025 9:00 AM EDTTelephone Encounter - Adwoa Luis MA - 02/07/2025 8:04 AM Maranda Davies MD - 02/01/2025 9:00 AM EDT Note Date & Type Note Facility 03-01-2025 History of Present illness Narrative Images from the original note were not included. Subjective Chief Complaint: Ramon Cruz is an 79 y.o. male here for an annual wellness visit. I have reviewed and reconciled the history and medication list with the patient today. Current Outpatient Medications Medication Sig Dispense Refill acetaminophen (Tylenol) 500 MG tablet Take 1,000 mg by mouth Daily amLODIPine (Norvasc) 10 MG tablet 1 (one) time each day at the same time aspirin 81 MG EC tablet Take 1 tablet (81 mg) by mouth Daily 30 tablet 11 atorvastatin (Lipitor) 20 MG tablet TAKE 1 TABLET BY MOUTH EVERYDAY AT THE SAME TIME 90 tablet 1 baclofen (Lioresal) 10 MG tablet Take 10 mg by mouth in the morning and 10 mg before bedtime. carbidopa-levodopa (Sinemet) 25-100 MG tablet TAKE 2 TABLET BY MOUTH AT 8AM, 2 tablet at NOON, 2 tablets at 3PM, AND 2 tablet at 6PM 240 tablet 3 Continuous Glucose Sensor (FreeStyle Lillian 2 Sensor) misc 1 Units every 14 (fourteen) days 2 each 11 insulin glargine (Lantus SoloStar) 100 UNIT/ML pen If blood sugar below 180 do not take. If blood sugar between 180 and 250 take 5 units. If blood sugar over 250 take 10 units. 15 mL 3 insulin pen needle (B-D UF III MINI PEN NEEDLES) 31G x 5 mm misc Use daily as directed 100 each 11 lisinopril 5 MG tablet TAKE 1 TABLET BY MOUTH EVERY DAY 90 tablet 3 metoprolol succinate XL (Toprol-XL) 25 MG 24 hr tablet Take 1 tablet (25 mg) by mouth Daily 90 tablet 3 mirabegron ER (Myrbetriq) 50 MG 24 hr tablet Take 50 mg by mouth 1 (one) time each day at the same time omega-3, EPA+DHA, (Super Social Circle-3) 1000 MG capsule 1 capsule sildenafil (Viagra) 100 MG tablet Take 1 tablet (100 mg) by mouth Daily as needed for erectile dysfunction 12 tablet 5 tamsulosin (Flomax) 0.4 MG 24 hr capsule Take 0.4 mg by mouth at bedtime terbinafine (LamISIL) 250 MG tablet Take 1 tablet (250 mg) by mouth Daily 90 tablet 0 traMADol (Ultram) 50 MG tablet Take 1 tablet (50 mg) by mouth every 8 (eight) hours if needed for severe pain 30 tablet 0 Current Facility-Administered Medications Medication Dose Route Frequency Provider Last Rate Last Admin dapagliflozin-metFORMIN ER (Xigduo XR) 10-500 MG per 24 hr tablet 1 tablet 1 tablet Oral Daily with breakfast Tom R Kaftan, DO Review of Systems All other systems reviewed and are negative. List of current healthcare providers: Patient Care Team: Tom Field DO as PCP - General (Family Medicine) Tom Field DO as PCP - [facility] Reach Lili Gonsales MD as Referring Physician (Sleep Medicine) Sunny Vasquez DO (Otolaryngology) Eusebio Guerin MD as Referring Physician (Neurology) BERE Quesada as Physician [employer] (Neurology) Medicare Annual Visit Over the past 2 weeks, how often have you been bothered by any of the following problems? Little interest or pleasure in doing things: Not at all Feeling down, depressed, or hopeless: Not at all Patient Health Questionnaire-2 Score: 0 Over the past 2 weeks, how often have you been bothered by any of the following problems? Trouble falling or staying asleep, or sleeping too much: Not at all Feeling tired or having little energy: Not at all Poor appetite or overeating: Not at all Feeling bad about yourself - or that you are a failure or have let yourself or your family down: Not at all Trouble concentrating on things, such as reading the newspaper or watching television: Not at all Moving or speaking so slowly that other people could have noticed? Or the opposite - being so fidgety or restless that you have been moving around a lot more than usual.: Not at all Thoughts that you would be better off or hurting yourself in some way: Not at all Patient Health Questionnaire-9 Score: 0 Alonzo Fall Risk History of Falling, Immediate or Within 3 Months: No Secondary Diagnosis: No Ambulatory Aid: Crutches/cane/walker (As needed) Intravenous Therapy/Heparin Lock: No Gait/Transferring: Normal/bedrest/immobile Mental Status: Oriented to own ability Alonzo Fall Risk Score: 15 Health Risk Assessment Form Do you need help eating, bathing, using the toilet, dressing, or getting around your home?: No Can you prepare your own meals?: Yes Can you do your own housework without help?: Yes Can you shop for groceries or clothes without help?: Yes Do you exercise for about 20 minutes 3 or more days a week?: No How confident are you that you can control and manage most of your health problems?: Very confident Can you mange your money, credit cards and accounts, pay bills and taxes?: Yes Vision Screening: Yes, no gross abnormalities Hearing Screening: Not done Cognitive Screening Three Word Registration: Ilya Minaya, Chair Clock Drawing: Normal Clock - 2 Three Word Recall: 2/3 words correct - 2 Total Score (0-5 Points): 4 Pain Assessment Pain Score: 9 Advance Care Planning Do you have a living will?: Yes Do you have a medical power of spare fixer?: Yes Who is your medical power of spare fixer?: Keri daughter Objective BP 100/62 Pulse 63 Temp 97.3 F Ht 5' 7 Wt 198 lb SpO2 96% BMI 31.01 kg/m Physical Exam Constitutional: General: He is not in acute distress. Appearance: Normal appearance. HENT: Head: Normocephalic and atraumatic. Mouth/Throat: Mouth: Mucous membranes are moist. Eyes: Extraocular Movements: Extraocular movements intact. Neck: Vascular: No carotid bruit. Cardiovascular: Rate and Rhythm: Normal rate and regular rhythm. Pulses: Normal pulses. Heart sounds: No murmur heard. No friction rub. No gallop. Pulmonary: Effort: No respiratory distress. Breath sounds: Normal breath sounds. No wheezing, rhonchi or rales. Abdominal: General: Bowel sounds are normal. There is no distension. Palpations: Abdomen is soft. Tenderness: There is no abdominal tenderness. Musculoskeletal: Right lower leg: Edema present. Left lower leg: Edema present. Skin: General: Skin is warm and dry. Findings: No rash. Neurological: General: No focal deficit present. Mental Status: He is alert and oriented to person, place, and time. Psychiatric: Mood and Affect: Mood normal. Behavior: Behavior normal. Judgment: Judgment normal. Assessment/Plan The following health maintenance schedule was reviewed with the patient and provided in printed form in the after visit summary: Health Maintenance Topic Date Due Medicare Annual Wellness (AWV) 11/03/2024 Diabetes: Hemoglobin A1C 05/25/2025 Diabetes: Urine Protein Screening 02/22/2026 Diabetes: Retinopathy Screening 11/15/2026 Influenza Vaccine Completed Pneumococcal Vaccine: 65+ Years Completed Patient Active Problem List Diagnosis Benign prostatic hyperplasia Coronary artery disease (CMS/HCC) Diabetic renal disease (CMS/HCC) Exercise-induced angina (CMS/HCC) Heart failure Hyperlipidemia (CMS/HCC) Hypothyroid ([facility]/HCC) Obstructive sleep apnea syndrome Hypertension ([facility]/HCC) Peripheral vascular disease ([facility] Sick sinus syndrome ([facility]) Stage 3a chronic kidney disease (HCC) ([facility]) Stented coronary artery Type 2 diabetes mellitus with hyperglycemia, without long-term current use of insulin ([facility]) Vitamin D deficiency Generalized osteoarthritis DDD (degenerative disc disease), lumbosacral Parkinsonism ([facility]) PAC (premature atrial contraction) S/P placement of cardiac pacemaker S/P PTCA (percutaneous transluminal coronary angioplasty) Complication of ventilation therapy Myocardial infarction ([facility]) Dehydration Continue with care team regarding the diagnoses above: Patient here for annual Medicare Wellness visit. Demographics were updated. Self-assessment was completed. Past medical, family and social history were updated. The medication list, including supplements being taken, was updated. A list of other current medical providers was established/updated. Time was spent discussing health maintenance issues, ordering proper testing, and schedule was provided regarding recommended screening. We discussed safety issues and fall risk. Depression screening was completed and addressed. Cognitive function was assessed by direct observation and assessment of ability to perform ADL's and IADL's was done. We also discussed Advanced Directives and code status. The current BMI was provided along with an education packet regarding healthy living and maintenance of a healthy weight. The BMI will continue to be monitored at routine office visits as well. Major risk factors for chronic disease including family history were discussed. documented in this encounter [facility] 03-01-2025 History of Present illness Narrative Images from the original note were not included. SUBJECTIVE: Ramon Cruz is a 79 y.o. male presents with chief complaint of Results, Hyperlipidemia, Hypertension, Hypothyroidism, Diabetes. Pt presents to the office for a routine check up and to review blood work results. Diabetes: Pt does have lillian 3 device and monitors sugars regularly. States sugars have been well controlled. Diabetes He presents for his follow-up diabetic visit. He has type 2 diabetes mellitus. His disease course has been stable. Hypertension This is a chronic problem. The current episode started more than 1 year ago. The problem is unchanged. The problem is controlled. Hyperlipidemia This is a chronic problem. The current episode started more than 1 year ago. The problem is controlled. Review of Systems: Review of Systems Problem List: Patient Active Problem List Diagnosis Benign prostatic hyperplasia Coronary artery disease ([facility]/HCC) Diabetic renal disease ([facility]/HCC) Exercise-induced angina ([facility]/HCC) Heart failure Hyperlipidemia (CMS/HCC) Hypothyroid (CMS/HCC) Obstructive sleep apnea syndrome Hypertension (CMS/HCC) Peripheral vascular disease ([facility]/HCC) Sick sinus syndrome ([facility]/HCC) Stage 3a chronic kidney disease (HCC) ([facility]) Stented coronary artery Type 2 diabetes mellitus with hyperglycemia, without long-term current use of insulin ([facility]/HCC) Vitamin D deficiency Generalized osteoarthritis DDD (degenerative disc disease), lumbosacral Parkinsonism (CMS/HCC) PAC (premature atrial contraction) S/P placement of cardiac pacemaker S/P PTCA (percutaneous transluminal coronary angioplasty) Complication of ventilation therapy Myocardial infarction ([facility]/HCC) Dehydration Past Medical History: Past Medical History: Diagnosis Date Arthritis Diabetes ([facility]/HCC) Eczema Heart attack ([facility]/HCC) Hypercholesteremia ([facility]/HCC) Hypertension ([facility]) Family History: Family History Problem Relation Name Age of Onset Cancer Mother Vicky Cruz Heart disease Father Pastor Cruz Diabetes Sister Morelia Cruz Allergies: Allergies Allergen Reactions Hydrocodone Other Reaction(s): Nausea Lactose Surgical History: Past Surgical History: Procedure Laterality Date CARDIAC PACEMAKER PLACEMENT 03/2021 CARDIAC SURGERY 2019 CORONARY STENT PLACEMENT 8 stents EYE SURGERY JOINT REPLACEMENT OTHER SURGICAL HISTORY 09/27/2024 DISE TOTAL KNEE ARTHROPLASTY 2009; 2011 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 Health Tobacco Use: Medium Risk (02/01/2025) Patient History Smoking Tobacco Use: Former Smokeless Tobacco Use: Never Passive Exposure: Not [...] min Stress: No Stress Concern Present (03/25/2024) [employer] [place] [employer] - Occupational Stress Questionnaire Feeling of Stress : Not at all Recent Concern: Stress - Stress Concern Present (03/17/2024) [employer] [place] [employer] - Occupational Stress Questionnaire Feeling of Stress : To some extent Social Connections: Moderately Integrated (03/25/2024) Social Connection and Isolation Panel [NHANES] Frequency of Communication with Friends and Family: Three times a week Frequency of Social Gatherings with Friends and Family: Not on file Attends Spiritism Services: More than 4 times per year Active Member of Clubs or Organizations: No Attends Club or Organization Meetings: Never Marital Status: Intimate Partner Violence: Not on file Depression: Not at risk (01/04/2025) PHQ-2 PHQ-2 Score: 0 Housing Stability: Low Risk (03/25/2024) Housing Stability Vital Sign Unable to Pay for Housing in the Last Year: No Number of Times Moved in the Last Year: 0 Homeless in the Last Year: No Health Literacy: Adequate Health Literacy (03/25/2024) B1300 Health Literacy Frequency of need for help with medical instructions: Rarely OBJECTIVE: Visit Vitals Smoking Status Former Physical Exam Constitutional: General: He is not [...] Microalbumin / creatinine urine ratio Collection Time: 02/22/25 8:13 AM Result Value Ref Range Creat Ur 72.0 Not Estab. mg/dL Albumin Ur 43.1 Not Estab. ug/mL Alb/Creat Ratio Urine 60 (H) 0 - 29 mg/g creat Lipid panel Collection Time: 02/22/25 8:13 AM Result Value Ref Range Cholesterol, Total 135 100 - 199 mg/dL Triglycerides 58 0 - 149 mg/dL HDL Cholesterol 54 >39 mg/dL VLDL Cholesterol Feng 12 5 - 40 mg/dL LDL Chol Calc (NIH) 69 0 - 99 mg/dL Comprehensive metabolic panel Collection Time: 02/22/25 8:13 AM Result Value Ref Range Glucose 155 (H) 70 - 99 mg/dL BUN 21 8 - 27 mg/dL Creat 1.13 0.76 - 1.27 mg/dL EGFR 66 >59 mL/min/1.73 BUN/Creat Ratio 19 10 - 24 Sodium 141 134 - 144 mmol/L Potassium 4.8 3.5 - 5.2 mmol/L Chloride 106 96 - 106 mmol/L Carbon Dioxide 26 20 - 29 mmol/L Calcium 9.8 8.6 - 10.2 mg/dL Protein Total 6.8 6.0 - 8.5 g/dL Albumin 4.2 3.8 - 4.8 g/dL Globulin Total 2.6 1.5 - 4.5 g/dL Bili Total 0.4 0.0 - 1.2 mg/dL Alk Phosphatase 168 (H) 44 - 121 IU/L AST 17 15 - 59 IU/L ALT <5 0 - 50 IU/L CBC and differential Collection Time: 02/22/25 8:13 AM Result Value Ref Range WBC 8.0 3.4 - 10.8 x10E3/uL RBC 3.93 (L) 4.14 - 5.80 x10E6/uL Hgb 11.8 (L) 13.0 - 17.7 g/dL Hct 37.4 (L) 37.5 - 51.0 % MCV 95 79 - 97 fL MCH 30.0 26.6 - 33.0 pg MCHC 31.6 31.5 - 35.7 g/dL RDW 13.5 11.6 - 15.4 % Platelets 302 150 - 450 x10E3/uL Neutrophils 54 Not Estab. % Lymphs 30 Not Estab. % Monocytes 9 Not Estab. % Eos 6 Not Estab. % Basos 1 Not Estab. % Neutrophils Abs 4.3 1.4 - 7.0 x10E3/uL Lymphs Abs 2.4 0.7 - 3.1 x10E3/uL MonocytesAbs 0.7 0.1 - 0.9 x10E3/uL Eos Abs 0.5 (H) 0.0 - 0.4 x10E3/uL Baso Abs 0.0 0.0 - 0.2 x10E3/uL Immature Granulocytes 0 Not Estab. % Immature Grans Abs 0.0 0.0 - 0.1 x10E3/uL Hemoglobin A1c Collection Time: 02/22/25 8:13 AM Result Value Ref Range HgbA1C 8.0 (H) 4.8 - 5.6 % ASSESSMENT AND PLAN: Assessment/Plan Diagnoses and all orders for this visit: 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, unspecified vessel or lesion type, unspecified whether [place] or transplanted heart ([facility]) Problem is stable, will continue with current treatment plan. Call or return to clinic if any changes occur - Comprehensive metabolic panel; Future - CBC and differential; Future Type 2 diabetes mellitus without complication, with long-term current use of insulin Reviewed labs and/or imaging at today. Will continue current treatment regimen and follow up at next scheduled visit unless problems arise. - dapagliflozin-metFORMIN ER (Xigduo XR) 10-500 MG per 24 hr tablet 1 tablet - insulin glargine (Lantus SoloStar) 100 UNIT/ML pen; If blood sugar below 180 do not take. If blood sugar between 180 and 250 take 5 units. If blood sugar over 250 take 10 units. - Microalbumin / creatinine urine ratio; Future - Comprehensive metabolic panel; Future - CBC and differential; Future - Hemoglobin A1c; Future Hypertension, unspecified type ([facility]) Record Blood Pressures 2-4 times weekly and record. Return with readings at next appointment. Call with readings if sees significant changes - Comprehensive metabolic panel; Future - CBC and differential; Future Mixed hyperlipidemia (CMS/HCC) - Comprehensive metabolic panel; Future - CBC and differential; Future Stage 3a chronic kidney disease (HCC) ([facility]) Reviewed labs and/or imaging at today. Will continue current treatment regimen and follow up at next scheduled visit unless problems arise. - Comprehensive metabolic panel; Future - CBC and differential; Future Type 2 diabetes mellitus with hyperglycemia, without long-term current use of insulin ([facility]) - Comprehensive metabolic panel; Future - CBC and differential; Future Erectile dysfunction, unspecified erectile dysfunction type - sildenafil (Viagra) 100 MG tablet; Take 1 tablet (100 mg) by mouth Daily as needed for erectile dysfunction - Comprehensive metabolic panel; Future - CBC and differential; Future Updated Medications: I have reviewed and reconciled the history and medication list with the patient today. Current Outpatient Medications: acetaminophen (Tylenol) 500 MG tablet, Take 1,000 mg by mouth Daily, Disp: , Rfl: amLODIPine (Norvasc) 10 MG tablet, 1 (one) time each day at the same time, Disp: , Rfl: aspirin 81 MG EC tablet, Take 1 tablet (81 mg) by mouth Daily, Disp: 30 tablet, Rfl: 11 atorvastatin (Lipitor) 20 MG tablet, TAKE 1 TABLET BY MOUTH EVERYDAY AT THE SAME TIME, Disp: 90 tablet, Rfl: 1 baclofen (Lioresal) 10 MG tablet, Take 10 mg by mouth in the morning and 10 mg before bedtime., Disp: , Rfl: carbidopa-levodopa (Sinemet) 25-100 MG tablet, TAKE 2 TABLET BY MOUTH AT 8AM, 2 tablet at NOON, 2 tablets at 3PM, AND 2 tablet at 6PM, Disp: 240 tablet, Rfl: 3 Continuous Glucose Sensor (FreeStyle Lillian 2 Sensor) misc, 1 Units every 14 (fourteen) days, Disp: 2 each, Rfl: 11 insulin glargine (Lantus SoloStar) 100 UNIT/ML pen, INJECT 10 UNITS UNDER THE SKIN EVERY DAY AT BEDTIME, Disp: 15 mL, Rfl: 3 insulin pen needle (B-D UF III MINI PEN NEEDLES) 31G x 5 mm [facility], Use daily as directed, Disp: 100 each, Rfl: 11 lisinopril 5 MG tablet, TAKE 1 TABLET BY MOUTH EVERY DAY, Disp: 90 tablet, Rfl: 3 metFORMIN XR (Glucophage-XR) 500 MG 24 hr tablet, TAKE 2 TABLETS BY MOUTH IN THE MORNING AND BEFORE BEDTIME*DO NOT CRUSH,CHEW,OR SPLIT*, Disp: 180 tablet, Rfl: 1 metoprolol succinate XL (Toprol-XL) 25 MG 24 hr tablet, Take 1 tablet (25 mg) by mouth Daily, Disp: 90 tablet, Rfl: 3 mirabegron ER (Myrbetriq) 50 MG 24 hr tablet, Take 50 mg by mouth 1 (one) time each day at the same time, Disp: , Rfl: omega-3, EPA+DHA, (Super Social Circle-3) 1000 MG capsule, 1 capsule, Disp: , Rfl: tamsulosin (Flomax) 0.4 MG 24 hr capsule, Take 0.4 mg by mouth at bedtime, Disp: , Rfl: terbinafine (LamISIL) 250 MG tablet, Take 1 tablet (250 mg) by mouth Daily, Disp: 90 tablet, Rfl: 0 traMADol (Ultram) 50 MG tablet, Take 1 tablet (50 mg) by mouth every 8 (eight) hours if needed for severe pain, Disp: 30 tablet, Rfl: 0 documented in this encounter [facility] 02-07-2025 Telephone encounter Note Please advise, thank you. [facility] 02-07-2025 Miscellaneous Notes Please advise, thank you. documented in this encounter [facility] 02-01-2025 History of Present illness Narrative Images from the original note were not included. Skin Check Location: Patient requests a skin examination from the waist up Dermatologic history: history of skin cancer (unsure what type), history of actinic keratosis New patient. All pertinent medical history, medications, and allergies were reviewed. General Exam: alert, oriented to person, place, and time, normal affect, well appearing Unaccompanied A complete skin exam was offered, pt declined. Areas not examined despite medical recommendation: From the waist down Scalp, Examined Head, Face Examined Neck Examined Chest Examined Back Examined Abdomen Examined Right arm Examined Left arm Examined Hands Examined Digits,nails: Examined Lymphatics: Not examined Skin Exam 1. SEBORRHEIC KERATOSIS Generalized Stuck on verrucous, griffith-brown papules and plaques. Patient was counseled regarding these benign growths. Removal is normally not necessary, but they may be removed if they are symptomatic or for cosmetic reasons. 2. LENTIGINES Trunk Scattered griffith macules in sun-exposed areas. The patient was informed that lentigines are benign pigmented lesions that occur on sun-exposed and sun-damaged skin. No treatment is necessary. Recommended regular use of broad spectrum sunscreen SPF 30 or higher 3. CAPILLARY ANGIOMA Trunk Scattered bunch-red papule(s). The patient was informed that angiomas are benign growths on the the skin. No treatment is necessary. 4. NEOPLASM OF UNSPECIFIED BEHAVIOR OF BONE, SOFT TISSUE, AND SKIN Right Temporal Scalp Erythematous hyperkeratotic patch. Lesion biopsy Type of biopsy: tangential Informed consent: discussed and consent obtained Informed consent comment: The risks and benefits of the biopsy were discussed. Risks include but are not limited to bleeding, infection, scarring, pain, and nerve damage. An opportunity to ask questions prior to the procedure was permitted and all questions were answered. Patient was prepped and draped in usual sterile fashion: area cleansed with alcohol. Anesthesia: the lesion was anesthetized in a standard fashion Anesthetic: 1% lidocaine w/ epinephrine 1-100,000 buffered w/ 8.4% NaHCO3 Instrument used: DermaBlade Hemostasis achieved with: electrodesiccation Outcome: patient tolerated procedure well Outcome comment: The specimen was placed in a prelabeled formalin container to be sent for pathology Post-procedure details: sterile dressing applied and wound care instructions given Post-procedure details comment: Emphasized need to contact clinic for any signs of infection, uncontrollable bleeding, or complications. Dressing type: bandage Additional details: Photo taken Amount of lidocaine used: 1.0 cc Specimen A - Dermatopathology exam Differential Diagnosis: AK vs SCC vs jose alberto derm Check Margins: No Size of lesion: 1.8 x 1.8 cm 5. HISTORY OF SKIN CANCER Unspecified The patient was counseled that scars from excisional sites of nonmelanoma skin cancers should be monitored closely for recurrence. The patient was instructed to contact the office for any new, changing, or symptomatic moles. The patient was also instructed to contact the office for any new lesions that develop within or around the previous surgery scar. Next Visit: 1 year documented in this encounter [facility] 01-18-2025 History of Present illness Narrative Images from [...] surroundings, in no acute distress FOOT EXAM: 01/18/25 Vascular: DORSALIS PEDIS PULSE: 2/4 bilateral POSTERIOR [...] if problems arise. documented in this encounter [facility] 10-25-2024 History of Present illness Narrative Images [...] Diagnosis Benign prostatic hyperplasia Coronary artery disease ([facility]/HCC) Diabetic renal disease ([facility]/HCC) Exercise-induced angina ([facility]/HCC) Heart failure ([facility]/HCC) Hyperlipidemia ([facility]/HCC) Hypothyroid ([facility]/HCC) Obstructive sleep apnea syndrome Hypertension ([facility]/HCC) Peripheral vascular disease ([facility] Sick sinus syndrome ([facility]) Stage 3a chronic kidney disease (HCC) ([facility]) Stented coronary artery Type 2 diabetes mellitus with hyperglycemia, without long-term current use of insulin ([facility]) Vitamin D deficiency Generalized osteoarthritis DDD (degenerative disc disease), lumbosacral Parkinsonism ([facility]/HCC) PAC (premature atrial contraction) S/P placement of cardiac pacemaker S/P PTCA (percutaneous transluminal coronary angioplasty) Complication of ventilation therapy Myocardial infarction ([facility]) Past Medical History: Past Medical History: Diagnosis Date Diabetes ([facility]/HCC) Heart attack ([facility]/HCC) Hypercholesteremia ([facility]) Hypertension ([facility]) Family History: Family History Problem Relation Name Age of Onset Cancer Mother Heart disease Father Diabetes Sister Allergies: Allergies Allergen Reactions Lactose Surgical History: Past Surgical History: Procedure Laterality Date CARDIAC PACEMAKER PLACEMENT 03/2021 CARDIAC SURGERY 2019 CORONARY STENT PLACEMENT 8 stents OTHER SURGICAL HISTORY 09/27/2024 DISE TOTAL KNEE ARTHROPLASTY 2009; 2011 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 Health Tobacco Use: Low Risk (10/25/2024) Patient History [...] min Stress: No Stress Concern Present (03/25/2024) [employer] [place] [employer] - Occupational Stress Questionnaire Feeling of Stress : Not at all Recent Concern: Stress - Stress Concern Present (03/17/2024) [employer] [place] [employer] - Occupational Stress Questionnaire Feeling of Stress : To some extent Social Connections: Moderately Integrated (03/25/2024) Social Connection and Isolation Panel [NHANES] Frequency of Communication with Friends and Family: Three times a week Frequency of Social Gatherings with Friends and Family: Not on file Attends Spiritism Services: More than 4 times per year [...] unspecified vessel or lesion type, unspecified whether [place] or transplanted heart ([facility]) Problem is stable, will continue with current treatment plan. Call or return to clinic if any changes occur - Lipid panel; Future - Comprehensive metabolic panel; Future - CBC and differential; Future Type 2 diabetes mellitus with diabetic chronic kidney disease ([facility]) Labs ordered today, will follow up when results available - Microalbumin / creatinine urine ratio; Future - Comprehensive metabolic panel; Future - CBC and differential; Future - Hemoglobin A1c; Future Chronic kidney disease, stage 3b (HCC) ([facility]) - Comprehensive metabolic panel; Future - CBC and differential; Future Sick sinus syndrome ([facility]) - Comprehensive metabolic panel; Future - CBC and differential; Future Hypertensive heart disease with heart failure ([facility]) Record Blood Pressures 2-4 times weekly and record. Return with readings at next appointment. Call with readings if sees significant changes - Comprehensive metabolic panel; Future - CBC and differential; Future Hypertension, unspecified type (CMS/HCC) - Lipid panel; Future - Comprehensive metabolic panel; Future - CBC and differential; Future Mixed hyperlipidemia (CMS/HCC) - Comprehensive metabolic panel; Future - CBC and differential; Future Stage 3a chronic kidney disease (HCC) ([facility]) Labs ordered today, will follow up when results available - Comprehensive metabolic panel; Future - CBC and differential; Future Type 2 diabetes mellitus with hyperglycemia, without long-term current use of insulin ([facility]) - Comprehensive metabolic panel; Future - [...] Continuous Glucose Sensor (FreeStyle Lillian 2 Sensor) [facility], 1 Units every 14 (fourteen) days, Disp: 2 each, Rfl: 11 insulin glargine (Lantus SoloStar) 100 UNIT/ML pen, INJECT 10 UNITS UNDER THE SKIN EVERY DAY AT BEDTIME, Disp: 15 mL, Rfl: 3 insulin pen needle (B-D UF III MINI PEN NEEDLES) 31G x 5 mm mis, Use daily as directed, Disp: 100 each, [...] time, Disp: , Rfl: omega-3, EPA+DHA, (Super Social Circle-3) 1000 MG capsule, 1 capsule, Disp: , Rfl: terbinafine (LamISIL) 250 MG tablet, TAKE 1 TABLET BY MOUTH EVERY DAY, Disp: 90 tablet, Rfl: 0 traMADol (Ultram) 50 MG tablet, Take 1 tablet (50 mg) by mouth every 8 (eight) hours if needed for severe pain, Disp: 30 tablet, Rfl: 0 documented in this encounter [facility] 10-05-2024 History of Present illness [...] MINI PEN NEEDLES) 31G x 5 mm [facility], Use daily as directed, Disp: 100 each, [...] time, Disp: , Rfl: omega-3, EPA+DHA, (Super Social Circle-3) 1000 MG capsule, 1 capsule, Disp: , [...] min Stress: No Stress Concern Present (03/25/2024) [employer] [place] [employer] - Occupational Stress Questionnaire Feeling of Stress : Not at all Recent Concern: Stress - Stress Concern Present (03/17/2024) [employer] [place] [employer] - Occupational Stress Questionnaire Feeling of Stress : To some extent Social Connections: Moderately Integrated (03/25/2024) Social Connection and Isolation Panel [NHANES] Frequency of Communication with Friends and Family: Three times a week Frequency of Social Gatherings with Friends and Family: Not on file Attends Spiritism Services: More than 4 times per year [...] once it is. documented in this encounter [facility] 09-29-2024 History of Present illness [...] if problems arise. documented in this encounter [facility] 09-27-2024 History of Present illness Narrative mmm mmm documented in this encounter [facility] 09-23-2024 Telephone encounter Note [facility] calls to state that they've set up pt for PT once weekly for the next 9 weeks. [facility] 09-23-2024 Miscellaneous Notes [facility] calls to state that they've set up pt for PT once weekly for the next 9 weeks. documented in this encounter [facility] 09-06-2024 History of Present illness Narrative Subjective Ramon Cruz is a 79 y.o. year old male Chief Complaint Patient presents with Parkinson's Disease Past Medical History: Diagnosis Date Diabetes (CMS/HCC) Heart attack (CMS/HCC) Hypercholesteremia ([facility]/HCC) Hypertension ([facility]/HCC) Past Surgical History: Procedure Laterality Date CARDIAC [...] Review Audit Reviewed by Marcia Self MA (Reservation Agent) on 09/06/24 at 1026 Medication Order Taking? Sig Documenting Provider Last Dose Status acetaminophen (Tylenol) 500 MG tablet [id number] No Take 1,000 mg by mouth Daily Taking Active amLODIPine (Norvasc) 10 MG tablet [id number] No 1 (one) time each day at the same time. Historical Provider, Taking Active aspirin 81 MG EC tablet [id number] Take 1 tablet (81 mg) by mouth Daily Tom Field DO Active atorvastatin (Lipitor) 20 MG tablet [id number] TAKE 1 TABLET BY MOUTH EVERYDAY AT THE SAME TIME Tom Field DO Active carbidopa-levodopa (Sinemet) 25-100 MG tablet [id number] TAKE 1 TABLET BY MOUTH AT 8AM, NOON, 3PM AND 6PM Fer García NP Active Continuous Glucose Sensor (FreeStyle Lillian 2 Sensor) [facility] [id number] No 1 Units every 14 (fourteen) days Tom Field DO Taking Active Continuous Glucose Sensor (FreeStyle Lillian 2 Sensor) mis [id number] 1 Units every 14 (fourteen) days Tom Field DO Active insulin glargine (Lantus SoloStar) 100 UNIT/ML pen [id number] No INJECT 10 UNITS UNDER THE SKIN EVERY DAY AT BEDTIME Tom Field DO Taking Active insulin pen needle (B-D UF III MINI PEN NEEDLES) 31G x 5 mm [facility] [id number] No Use daily as directed Tom Field DO Taking Active lisinopril 5 MG tablet [id number] No Take 1 tablet (5 mg) by mouth Daily Tom Field DO Taking Active metFORMIN XR (Glucophage-XR) 500 MG 24 hr tablet [id number] Take 2 tablets (1,000 mg) by mouth in the morning and 2 tablets (1,000 mg) before bedtime. Do not crush, chew, or split.. Tom Field DO Active metoprolol succinate XL (Toprol-XL) 25 MG 24 hr tablet [id number] No Take 1 tablet by mouth 1 (one) time each day. Historical Provider, Taking Active mirabegron ER (Myrbetriq) 50 MG 24 hr tablet [id number] No Take 50 mg by mouth 1 (one) time each day at the same time Taking Active Misc. Devices (Rollator Ultra-Light) [facility] [id number] No 1 rollator with seat for every day use Tom Field DO Taking Active omega-3, EPA+DHA, (Super Social Circle-3) 1000 MG capsule [id number] No 1 capsule Tom FieldDO Taking Active terbinafine (LamISIL) 250 MG tablet [id number] TAKE 1 TABLET BY MOUTH EVERY DAY Sarah Connell DPM Active traMADol (Ultram) 50 MG tablet [id number] Take 1 tablet (50 mg) by mouth every 8 (eight) hours if needed for severe pain Tom Field Active HPI HPI PARKINSON DISEASE -on the [...] not wake feeling rested -currently working on [facility] [employer] Review of Systems Constitutional: Positive for fatigue. [...] triceps, wrist extensors, wrist extensors, wrist flexor, manager social strength 5/5. LUE Strength deltoid, biceps, triceps, wrist extensors, wrist extensors, wrist flexor, manager social strength 5/5. RLE Strength illopsoas, quadriceps, tibialis [...] - 79-year-old male who [place] [facility] [place] with altered mental status and [...] after his hospitalization and was evaluated at [facility] with nonacute CT head and cervical spine [...] wear. He followed with Dr Gonsales [place] [facility] [place] His will call to schedule an appointment to discuss alternative therapies and/or mask. He is working towards curated.by. We discussed the affects and risks associated with untreated LOPEZ [place] [facility] [place] [address] scan of [...] sooner if needed documented in this encounter [facility] 08-26-2024 Telephone encounter Note Patient's recent lab work in June was normal for LFTs. He can continue with the Lamisil. Rx was sent. [facility] 08-26-2024 Miscellaneous Notes Patient's recent lab work in June was normal for LFTs. He can continue with the Lamisil. Rx was sent. documented in this encounter [facility] 08-23-2024 Telephone encounter Note Rescheduled appt for after labs are completed. [facility] 08-23-2024 Miscellaneous Notes Rescheduled appt for after labs are completed. Pt's spouse called and wanted to make sure the labs ordered are active and can be done prior to appointment on 09/27. I told her yes they were active. She would like someone to call her to confirm this. documented in this encounter [facility] 08-23-2024 Telephone encounter Note Pt's spouse called and wanted to make sure the labs ordered are active and can be done prior to appointment on 09/27. I told her yes they were active. She would like someone to call her to confirm this. [facility] 08-10-2024 History of Present illness Narrative Allergies as of 08/10/2024 - Reviewed 06/30/2024 Allergen Reaction Noted Lactose 03/01/2024 Past Medical History: Diagnosis Date Diabetes ([facility]) Heart attack ([facility] Hypercholesteremia ([facility]) Hypertension ([facility]) Current Outpatient Medications: acetaminophen (Tylenol) 500 MG [...] 1 each, Rfl: 0 omega-3, EPA+DHA, (Super Social Circle-3) 1000 MG capsule, 1 capsule, Disp: , [...] min Stress: No Stress Concern Present (03/25/2024) [employer] [place] [employer] - Occupational Stress Questionnaire Feeling of Stress : Not at all Recent Concern: Stress - Stress Concern Present (03/17/2024) [employer] [place] [employer] - Occupational Stress Questionnaire Feeling of Stress : To some extent Social Connections: Moderately Integrated (03/25/2024) Social Connection and Isolation Panel [NHANES] Frequency of Communication with Friends and Family: Three times a week Frequency of Social Gatherings with Friends and Family: Not on file Attends Spiritism Services: More than 4 times per year [...] we have approval. documented in this encounter [facility] 06-30-2024 History of Present illness [...] if problems arise. documented in this encounter [facility] 06-18-2024 History of Present illness [...] min Stress: No Stress Concern Present (03/25/2024) [employer] [place] [employer] - Occupational Stress Questionnaire Feeling of Stress : Not at all Recent Concern: Stress - Stress Concern Present (03/17/2024) [employer] [place] [employer] - Occupational Stress Questionnaire Feeling of Stress : To some extent Social Connections: Moderately Integrated (03/25/2024) Social Connection and Isolation Panel [NHANES] Frequency of Communication with Friends and Family: Three times a week Frequency of Social Gatherings with Friends and Family: Not on file Attends Spiritism Services: More than 4 times per year [...] HDL Cholesterol 43 >39 mg/dL VLDL Cholesterol Feng 26 5 - 40 mg/dL LDL Chol [...] unspecified vessel or lesion type, unspecified whether [place] or transplanted heart ([facility]) Problem is stable, will continue with current treatment plan. Call or return to clinic if any changes occur - aspirin 81 MG EC tablet; Take 1 tablet (81 mg) by mouth Daily - Microalbumin / creatinine urine ratio; Future - Comprehensive metabolic panel; Future Type 2 diabetes mellitus without complication, with long-term current use of insulin ([facility]) Reviewed labs and/or imaging at ov [...] associated with type 2 diabetes mellitus (HCC) ([facility]) Reviewed labs and/or imaging at ov today. advised that it appears that he is dehydrated and this may be contributing to the kidney problems - Microalbumin / creatinine urine ratio; Future - Comprehensive metabolic panel; Future Mixed hyperlipidemia ([facility]) Reviewed labs and/or imaging at ov today. Will continue current treatment regimen and follow up at next scheduled visit unless problems arise. - CBC and differential; Future Hypertension, unspecified type ([facility]) Record Blood Pressures 2-4 times weekly and record. Return with readings at next appointment. Call with readings if sees significant changes - Microalbumin / creatinine urine ratio; Future - CBC and differential; Future Hypothyroidism, unspecified type ([facility]) Problem is stable, will continue with current treatment plan. Call or return to clinic if any changes occur - CBC and differential; Future Updated Medications: I have reviewed and reconciled the history and medication list with the patient today. Current Outpatient Medications: omega-3, EPA+DHA, (Super Social Circle-3) 1000 MG capsule, 1 capsule, Disp: , [...] tablet, Rfl: 0 documented in this encounter [facility] 06-15-2024 History of Present illness [...] Review Audit Reviewed by Frankie Cosby MA (Reservation Agent) on 06/15/24 at 0841 Medication Order Taking? Sig Documenting Provider Last Dose Status acetaminophen (Tylenol) 500 MG tablet [id number] Take 1,000 mg by mouth Daily Active amLODIPine (Norvasc) 10 MG tablet [id number] 1 (one) time each day at the same time. Historical Provider, Active atorvastatin (Lipitor) 20 MG tablet [id number] Take 1 tablet (20 mg) by mouth 1 (one) time each day at the same time Tom Field DO Active carbidopa-levodopa (Sinemet) 25-100 MG tablet [id number] TAKE 1 TABLET BY MOUTH AT 8AM, NOON, 3PM, AND 6PM Fer García NP Active clopidogrel (Plavix) 75 MG tablet [id number] Take 1 tablet (75 mg) by mouth in the morning. Tom Field DO Active Continuous Glucose Hospice Administrator (FreeStyle Lillian 2 [place]) device [id number] Dispense 1 reader device for every day use to check blood sugars E11.9 Tom Field DO Active Continuous Glucose Sensor (FreeStyle Lillian 2 Sensor) [facility] [id number] 1 Units every 14 (fourteen) days Tom Field DO Active Continuous Glucose Sensor (FreeStyle Lillian 2 Sensor) [facility] [id number] 1 Units every 14 (fourteen) days Tom Field DO Active insulin glargine (Lantus SoloStar) 100 UNIT/ML pen [id number] INJECT 10 UNITS UNDER THE SKIN EVERY DAY AT BEDTIME Tom Field DO Active insulin pen needle (B-D UF III MINI PEN NEEDLES) 31G x 5 mm [facility] [id number] Use daily as directed Tom Field DO Active lisinopril 5 MG tablet [id number] Take 1 tablet (5 mg) by mouth Daily Tom Field DO Active metFORMIN XR (Glucophage-XR) 500 MG 24 hr tablet [id number] TAKE 1 TABLET BY MOUTH IN THE EVENING. TAKE WITH MEALS DO NOT CRUSH, CHEW, OR SPLIT. Tom Field DO Active metoprolol succinate XL (Toprol-XL) 25 MG 24 hr tablet [id number] Take 1 tablet by mouth 1 (one) time each day. Historical Provider, Active mirabegron ER (Myrbetriq) 50 MG 24 hr tablet [id number] Take 50 mg by mouth 1 (one) time each day at the same time Active Misc. Devices (Rollator Ultra-Light) [facility] [id number] 1 rollator with seat for every day use Tom Field DO Active terbinafine (LamISIL) 250 MG tablet [id number] TAKE 1 TABLET BY MOUTH EVERY DAY Sarah Connell DPM Active traMADol (Ultram) 50 MG tablet [id number] Take 1 tablet (50 mg) by mouth [...] fell in March and was seen at [facility], was not admitted. Did hit his [...] ankle and great toe bilaterally. Coordination Right: Sbotuv-by-acjr normal. Rapid alternating movement abnormality:Left: Atrgbw-xv-gqro normal. Rapid alternating movement abnormality: Bradykinesia noted with MONY. Gait Slow, shuffle gait. Decreased arm swing bilaterally. Uses arms to get out of the chair. Motor Examination RUE Strength deltoid, biceps, triceps, wrist extensors, wrist extensors, wrist flexor, manager social strength 5/5. LUE Strength deltoid, biceps, triceps, wrist extensors, wrist extensors, wrist flexor, manager social strength 5/5. RLE Strength illopsoas, quadriceps, tibialis [...] male who [place] [facility] [place] with altered mental status and [...] after his hospitalization and was evaluated at [facility] with nonacute CT head and cervical spine [...] wear. He followed with Dr Gonsales [place] [facility]. His will call to schedule an appointment to discuss alternative therapies and/or mask. He has an appt to discuss the Inspire device. We discussed the affects and risks associated with untreated LOPEZ Evaluation [place] [facility] in February [place]: 1. CT scan of [...] sooner if needed documented in this encounter [facility] 06-07-2024 History of Present illness [...] seeing Dr. Conde cardiology recently switched from [facility]. Has upcoming appt. Weakness/ Unsteady gait. Parkinsonism: [...] (CMS/HCC) Diabetic renal disease (CMS/HCC) Exercise-induced angina ([facility]/HCC) Heart failure ([facility]/HCC) Hyperlipidemia ([facility]/HCC) Hypothyroid ([facility]/HCC) Obstructive sleep apnea syndrome Hypertension (CMS/HCC) Peripheral vascular disease (CMS/HCC) Sick sinus syndrome (CMS/HCC) Stage 3a chronic kidney disease (HCC) (CMS/HCC) Stented coronary artery Type 2 diabetes mellitus with hyperglycemia, without long-term current use of insulin ([facility]/HCC) Vitamin D deficiency Generalized osteoarthritis DDD (degenerative disc disease), lumbosacral Parkinsonism (CMS/HCC) Past Medical History: Past Medical History: Diagnosis Date Diabetes ([facility]/HCC) Heart attack ([facility]/HCC) Hypercholesteremia ([facility]/HCC) Hypertension ([facility]/HCC) Family History: Family History Problem Relation Name [...] min Stress: No Stress Concern Present (03/25/2024) [employer] [place] [employer] - Occupational Stress Questionnaire Feeling of Stress : Not at all Recent Concern: Stress - Stress Concern Present (03/17/2024) [employer] [place] [employer] - Occupational Stress Questionnaire Feeling of Stress : To some extent Social Connections: Moderately Integrated (03/25/2024) Social Connection and Isolation Panel [NHANES] Frequency of Communication with Friends and Family: Three times a week Frequency of Social Gatherings with Friends and Family: Not on file Attends Spiritism Services: More than 4 times per year [...] disease with dyskinesia and fluctuating manifestations (CMS/HCC) Patient has need of a walker/rollator in [...] for every day use Peripheral vascular disease ([facility]) Reviewed vascular surgery notes in office today. Will continue current treatment regimen and follow up at next scheduled visit unless problems arise. Hypertension, unspecified type ([facility]) Record Blood Pressures 2-4 times weekly and record. Return with readings at next appointment. Call with readings if sees significant changes Hypothyroidism, unspecified type ([facility]) Labs ordered today, will follow up when results available Stage 3a chronic kidney disease (HCC) ([facility]) Problem is stable, will continue with current treatment plan. Call or return to clinic if any changes occur 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, unspecified vessel or lesion type, unspecified whether upper sioux or transplanted heart ([facility]) Patient advised to return if symptoms worsen and/or persist despite treatment. Type 2 diabetes mellitus with hyperglycemia, without long-term current use of insulin ([facility]) Labs ordered today, will follow up [...] Disp: 90 tablet, Rfl: 1 Continuous Glucose Hospice Administrator (FreeStyle Lillian 2 [place]) device, Dispense 1 reader device for every [...] MINI PEN NEEDLES) 31G x 5 mm [facility], Use daily as directed, Disp: 100 each, [...] tablet, Rfl: 0 documented in this encounter [facility] 02-09-2024 Procedure note [facility] 07-02-2023 Evaluation note Encounter Date Diagnosis Assessment [...] changes in symptoms and/or problems with treatment [employer] Other 03-30-2023 NoteCONSULTATION CONSULTATION DATE: 01/09/2023 TO: [...] the response to his change in medication.[facility] 12-19-2022 NoteCONSULTATION CONSULTATION DATE: 12/26/2022 HISTORY: [...] from a physician they saw at the [facility] [place]. The patient and the are interested in [...] he will be scheduled at six weeks.[facility] [id number] Note CONSULTATION CONSULTATION DATE: 11/12/2022 CHIEF COMPLAINT: [...] his understand and would like to proceed.[facility] [id number] NoteCONSULTATION PROCEDURE DATE: 11/12/2022 PREOPERATIVE DIAGNOSIS: Gluteal [...] superior sacrococcygeal joint injection in the future.[facility] [id number] NoteCONSULTATION CONSULTATION DATE: 09/03/2022 CHIEF COMPLAINT: Low [...] patient understands and would like to proceed.[facility] [id number] NoteCONSULTATION CONSULTATION DATE: 05/23/2022 This is a [...] and the patient agrees with his plan.[facility] [id number] NoteCONSULTATION PROCEDURE DATE: 05/23/2022 PRE AND POSTOPERATIVE [...] will be followed up in the office.[facility] [id number] NoteCONSULTATION CONSULTATION DATE: 02/28/2022 This is a [...] and Approved by: DIAMANTE SPAULDING . 03/04/2022 15:07:00[facility] noteNo assessment information available[facility] Work Phone: Evaluation note* Diagnosis Onset Date Resolution Status Diminished pulses in lower extremity acute PVD (peripheral vascular disease) [facility] Work Phone: Evaluation note* Diagnosis Onset Date Resolution Status Diminished pulses in lower extremity acute PVD (peripheral vascular disease) acute [id number] acute S/P placement of cardiac pacemaker acute S/P PTCA (percutaneous trans luminal coronary angioplasty) acute Sick sinus syndrome [facility] Work Phone: Evaluation note* Diagnosis Onset Date Resolution Status Diminished pulses in lower extremity acute PVD (peripheral vascular disease) acute [id number] acute S/P placement of cardiac pacemaker acute S/P PTCA (percutaneous trans luminal coronary angioplasty) acute Sick sinus syndrome acute Congestive heart failure acu te Diabetes acute HTN (hypertension) acute Intolerance to BiPAP/CPAP ac elliott Myocardial infarction acute Obstructive sleep apnea acut e [facility] Work Phone: Evaluation note* Diagnosis Myalgia Unspecified myalgia and myositis [facility] Diagnosis Obstructive sleep apnea- Primary Obstructive sleep apnea (adult) (pediatric) Intolerance of continuous positive airway pressure (CPAP) ventilation [facility] Diagnosis Onychomycosis Dermatophytosis of nail [facility]* Diagnosis 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)- Primary Obstructive sleep apnea syndrome Obstructive sleep apnea (adult) (pediatric) [facility] Diagnosis Onychomycosis- Primary Dermatophytosis of nail Type II diabetes mellitus with neurological manifestations (CMS/HCC) Type II or unspecified type diabetes mellitus with neurological manifestations, not stated as uncontrolled [facility] Diagnosis LOPEZ (obstructive sleep apnea)- Primary Obstructive sleep apnea (adult) (pediatric) [facility]* Diagnosis 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)- Primary Peripheral vascular disease (CMS/HCC) Unspecified peripheral vascular disease Hypertension, unspecified type (CMS/HCC) Hypothyroidism, unspecified type (CMS/HCC) Stage 3a chronic kidney disease (HCC) (CMS/HCC) 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, unspecified vessel or lesion type, unspecified whether upper sioux or transplanted heart (CMS/HCC) Type 2 diabetes mellitus with hyperglycemia, without long-term current use of insulin (CMS/HCC) Myalgia Unspecified myalgia and myositis [facility] Diagnosis Onychomycosis- Primary Dermatophytosis of nail Type II diabetes mellitus with neurological manifestations (CMS/HCC) Type II or unspecified type diabetes mellitus with neurological manifestations, not stated as uncontrolled Pain in both feet [facility]* Diagnosis 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)- Primary [facility]* Diagnosis 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, unspecified vessel or lesion type, unspecified whether upper sioux or transplanted heart ([facility])- Primary Type 2 diabetes mellitus without complication, with long-term current use of insulin ([facility]) Diabetic nephropathy associated with type 2 diabetes mellitus (HCC) ([facility]) Mixed hyperlipidemia ([facility]) Mixed hyperlipidemia Hypertension, unspecified type ([facility]) Hypothyroidism, unspecified type ([facility]) [facility] Diagnosis Obstructive sleep apnea- Primary Obstructive sleep apnea (adult) (pediatric) Intolerance of continuous positive airway pressure (CPAP) ventilation [facility]* Diagnosis Myalgia Unspecified myalgia and myositis [facility]* Diagnosis 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, unspecified vessel or lesion type, unspecified whether upper sioux or transplanted heart ([facility])- Primary Type 2 diabetes mellitus with diabetic chronic kidney disease ([facility]) Chronic kidney disease, stage 3b (HCC) ([facility]) Sick sinus syndrome ([facility]) Sinoatrial node dysfunction Hypertensive heart disease with heart failure ([facility]) Unspecified hypertensive heart disease with heart failure Hypertension, unspecified type ([facility]) Mixed hyperlipidemia ([facility]) Mixed hyperlipidemia Stage 3a chronic kidney disease (HCC) ([facility]) Type 2 diabetes mellitus with hyperglycemia, without long-term current use of insulin ([facility]) Raynaud's disease without gangrene [facility]* Diagnosis Essential (primary) hypertension ([facility]) Unspecified essential hypertension [facility]* Diagnosis Onychomycosis- Primary Dermatophytosis of nail Type II diabetes mellitus with neurological manifestations ([facility]) Type II or unspecified type diabetes mellitus with neurological manifestations, not stated as uncontrolled Pain in both feet [facility]* Diagnosis Seborrheic keratosis- Primary Lentigines Capillary angioma Nevus, non-neoplastic Neoplasm of unspecified behavior of bone, soft tissue, and skin History of skin cancer Personal history of other malignant neoplasm of skin [facility]* Diagnosis Onychomycosis Dermatophytosis of nail [facility]* Diagnosis 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, unspecified vessel or lesion type, unspecified whether upper sioux or transplanted heart (CMS/HCC)- Primary Type 2 diabetes mellitus without complication, with long-term current use of insulin Hypertension, unspecified type (CMS/HCC) Mixed hyperlipidemia (CMS/HCC) Mixed hyperlipidemia Stage 3a chronic kidney disease (HCC) ([facility]/HCC) Type 2 diabetes mellitus with hyperglycemia, without long-term current use of insulin ([facility]/HCC) Erectile dysfunction, unspecified erectile dysfunction type [facility]* Diagnosis Routine general medical examination at health care facility- Primary Routine general medical examination at a health care facility [facility]* Diagnosis Type 2 diabetes mellitus without complication, with long-term current use of insulin documented [facility] encounter [facility] HealthcareHistory and physical note Author Manda Lockwood [facility] February 09, 2024 9:53am Note Date/Time February 09, 2024 9:2 0am [facility] [address] [place] [address] Gastroenterology H&P Signed Patient: Ramon Cruz MR#: [id number] : 1945 Acct:[id number] Age/Sex: 78 / M Adm Date: 4 Loc: Room: Type: [facility] Attending Dr: Manda Lockwood MD Copies to: [...] Lockwood M.D. Documented By: Manda Lockwood MD 02/09/24919 Signed By: <Electronically signed by Manda Lockwood MD> 02/09/24 0953 [facility] Work Phone: Hiszhwh general Narrative - Reported* Type Description Date Medical History HTN Medical History DM Medical History IA Medical History CAD Medical History LOPEZ Medical History Congestive heart failure Surgical History 8 stents Surgical History pacemaker 03/26/21 Hospitalization History see above [employer] Other History of Present illness Narrative* moved to [facility] * had flu sjot/ had covid booster * eye.. dr. mg sommer in [place] * hgm 120 s * no log here, ran out of test strips * agent lantus plus glimep * has a pcp in [facility] * no hypos [facility] Work Phone: History of Present illness Narrative* moved to [facility] * had flu sjot/ had covid booster * eye.. dr. mg sommer in [place] * hgm 120 s * no log here, * agent lantus plus glimep * has a pcp in [facility] * no hypos * feels well * drove here from [facility] this am * will travel to [place] this winter [facility] Work Phone: History of Present illness Narrative* feels well * takes meds ok * hobbies... TV * agent lantus plus glimep * [facility] 100-130 * cards d.r G * eye dr. catherine valentineusky * no sob or chest pains -[facility] Work Phone: Hospital Discharge instructions Additional Instructions [...] machinery such as power tools, lawn mowers, [employer] blowers, sewing machines, etc. for 24 hours. [...] years. -Follow up with PCP. -Office number [phone]. 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 Field for PVD I70.213 - Atherosclerosis of upper [place] arteries of ex Reason for Visit Diminished pulses in lower extremity PVD (peripheral vascular disease) Chief Complaint Ref from Dr. Field for PVD I70.213 - Atherosclerosis of upper [place] arteries of ex pacemaker/stents establish Reason for Visit Diminished pulses in lower extremity PVD (peripheral vascular disease) Chief Complaint Ref from Dr. Field for PVD I70.213 - Atherosclerosis of upper [place] arteries of ex pacemaker/stents establish Reason for Visit Diminished pulses in lower extremity PVD (peripheral vascular disease) [id number] S/P placement of cardiac pacemaker S/P PTCA (percutaneous transluminal coronary angioplasty) Sick sinus syndrome Chief Complaint Ref from Dr. Fiedl for PVD I70.213 - Atherosclerosis of upper [place] arteries of ex pacemaker/stents establish I49.1 I50.9 lopez/ interested in inspire Reason for Visit Diminished pulses in lower extremity PVD (peripheral vascular disease) [id number] S/P placement of cardiac pacemaker S/P PTCA (percutaneous transluminal coronary angioplasty) Sick sinus syndrome Chief Complaint Ref from Dr. Field for PVD I70.213 - Atherosclerosis of upper [place] arteries of ex pacemaker/stents establish I49.1 I50.9 lopez/ interested in inspire Z95.0 Reason for Visit Diminished pulses in lower extremity PVD (peripheral vascular disease) [id number] S/P placement of cardiac pacemaker S/P PTCA (percutaneous transluminal coronary angioplasty) Sick sinus syndrome Congestive heart failure Diabetes HTN (hypertension) Intolerance to BiPAP/CPAP Myocardial infarction Obstructive sleep apnea Chief Complaint Admit Date R06.02 October 04, 2024 9:24am Z95.0 October 08, 2024 11:37am Z95.0 October 08, 2024 3:30pm sleep apnea December 20, 2024 9:5 7am Chief Complaint Admit Date Z95.0 October 08, 2024 11:37am Z95.0 October 08, 2024 3:30pm sleep apnea December 20, 2024 9:5 7am sleep apnea January 03, 2025 6:0 2am Chief Complaint Admit Date Z95.0 October 08, 2024 11:37am Z95.0 October 08, 2024 3:30pm sleep apnea December 20, 2024 9:5 7am sleep apnea January 03, 2025 6:0 2am Z95.0 January 05, 2025 8:0 0am Z95.0 January 05, 2025 2:0 3pm Additional Source Comments (unrecognized sect ion and content) No Status Records FoundNo Status Records FoundNo Status Records FoundNo Status Records FoundNo Status Records FoundNo Status Records FoundNo Status Records FoundNo Status Records FoundNo Status Records Found INFORMATION SOURCE (unrecogn ized section and content) DATE CREATED AUTHOR 05/27/2022 [employer] DATE CREATED AUTHOR AUTHOR'S ORGANIZ ATION 09/02/2022 [facility] dical Specialist DATE CREATED AUTHOR AUTHOR'S ORGANIZ ATION 10/21/2022 [facility] DATE CREATED AUTHOR AUTHOR'S ORGANIZ ATION 12/03/2022 [facility] DATE CREATED AUTHOR AUTHOR'S ORGANIZ ATION 01/30/2023 [facility] DATE CREATED AUTHOR AUTHOR'S ORGANIZ ATION 02/26/2023 [facility] DATE CREATED AUTHOR AUTHOR'S ORGANIZ ATION 07/03/2024 [facility] DATE CREATED AUTHOR AUTHOR'S ORGANIZ ATION 01/12/2025 [facility] DATE CREATED AUTHOR AUTHOR'S ORGANIZ ATION 03/09/2025 [facility] dical Specialists EPIC Care Teams [...] Member Role Status Dates Tom Conde MD Cnp Active Benedicto Field DO Primary Care Provider [...] Active Start: June End: July 07, 2024 Instructor Traffic Safety Relationship Specialty Start Date End Date Tom Field DO [address] [place] [address] PCP - General Family Medicine 02/18/23 Tom Field DO [address] [place] [address] PCP - ACO Reach 12/12/23 Charlene Sullivan, [place] Registered Nurse Family Medicine 03/17/24 Instructor Traffic Safety Relationship Specialty Start Date End Date Tom Field DO [address] [place] [address] PCP - General Family Medicine 02/18/23 Tom Field DO [address] [place] [address] PCP - ACO Reach 12/12/23 Charlene Sullivan, [place] Registered Nurse Family Medicine 03/17/24 Lili Gonsales MD [address] [place] [address] Referring Physician Sleep Medicine 08/10/24 Sunny Vasquez, DO [address] [address] Otolaryngology 08/10/24 Instructor Traffic Safety Relationship Specialty Start Date End Date Tom Field DO [address] [place] [address] PCP - General Family Medicine 02/18/23 Tom Field DO [address] [place] [address] PCP - ACO Reach 12/12/23 Charlene Sullivan, [place] Registered Nurse Family Medicine 03/17/24 Lili Gonsales MD [address] [place] [address] Referring Physician Sleep Medicine 08/10/24 Sunny Vasquez, DO [address] [place] [address] Otolaryngology 08/10/24 Instructor Traffic Safety Relationship Specialty Start Date End Date Tom Field DO [address] [place] [address] PCP - General Family Medicine 02/18/23 Tom Field DO [address] [place] [address] PCP - ACO Reach 12/12/23 Charlene Sullivan, RN Registered Nurse Family Medicine 03/17/24 Lili Gonsales MD [address] [place] [address] Referring Physician Sleep Medicine 08/10/24 Sunny Vasquez, DO [address] [place] [address] Otolaryngology 08/10/24 Instructor Traffic Safety Relationship Specialty Start Date End Date Tom Field DO [address] [place] [address] PCP - General Family Medicine 02/18/23 Tom Field, [address] [place] [address] PCP - ACO Reach 12/12/23 Charlene Sullivan, RN Registered Nurse Family Medicine 03/17/24 Lili Gonsales MD [address] [place] [address] Referring Physician Sleep Medicine 08/10/24 Sunny Vasquez, DO [address] [place] [address] Otolaryngology 08/10/24 Instructor Traffic Safety Relationship Specialty Start Date End Date Tom Field, DO [address] [place] [address] PCP - General Family Medicine 02/18/23 Tom Field DO [address] [place] [address] PCP - ACO Reach 12/12/23 Charlene Sullivan, [place] Registered Nurse Family Medicine 03/17/24 Lili Gonsales MD [address] [place] [address] Referring Physician Sleep Medicine 08/10/24 Sunny Vasquez DO [address] [facility] [place] [address] Otolaryngology 08/10/24 Eusebio Guerin MD [address] [place] [address] Referring Physician Neurology 09/06/24 Instructor Traffic Safety Relationship Specialty Start Date End Date Tom Field DO [address] [place] [address] PCP - General Family Medicine 02/18/23 Tom Field DO [address] [place] [address] PCP - ACO Reach 12/12/23 Charlene Sullivan, [place] Registered Nurse Family Medicine 03/17/24 Instructor Traffic Safety Relationship Specialty Start Date End Date Tom Field DO [address] [place] [address] PCP - General Family Medicine 02/18/23 Tom Field DO [address] [place] [address] PCP - ACO Reach 12/12/23 Charlene Sullivan, [place] Registered Nurse Family Medicine 03/17/24 Lili Gonsales MD [address] [place] [address] Referring Physician Sleep Medicine 08/10/24 Sunny Vasquez DO [address] [place] [address] Otolaryngology 08/10/24 Eusebio Guerin MD [address] [place] [address] Referring Physician Neurology 09/06/24 Instructor Traffic Safety Relationship Specialty Start Date End Date Tom Field DO [address] [place] [address] PCP - General Family Medicine 02/18/23 Tom Field DO [address] [place] [address] PCP - ACO Reach 12/12/23 Charlene Sullivan, [place] Registered Nurse Family Medicine 03/17/24 Lili Gonsales MD [address] [place] [address] Referring Physician Sleep Medicine 08/10/24 Sunny Vasquez DO [address] [place] [address] Otolaryngology 08/10/24 Eusebio Guerin MD [address] [place] [address] Referring Physician Neurology 09/06/24 Instructor Traffic Safety Relationship Specialty Start Date End Date Tom Field DO [address] [place] [address] PCP - General Family Medicine 02/18/23 Tom Field DO [address] [place] [address] PCP - ACO Reach 12/12/23 Charlene Sullivan RN Registered Nurse Family Medicine 03/17/24 Lili Gonsales MD [address] [place] [address] Referring Physician Sleep Medicine 08/10/24 Sunny Vasquez DO [address] [place] [address] Otolaryngology 08/10/24 Eusebio Guerin MD [address] [place] [address] Referring Physician Neurology 09/06/24 Instructor Traffic Safety Relationship Specialty Start Date End Date Tom Field DO [address] [place] [address] PCP - General Family Medicine 02/18/23 Tom Field DO [address] [place] [address] PCP - ACO Reach 12/12/23 Charlene Sullivan RN Registered Nurse Family Medicine 03/17/24 Instructor Traffic Safety Relationship Specialty Start Date End Date Tom Field, DO [address] [place] [address] PCP - General Family Medicine 02/18/23 Tom Field DO [address] [place] [address] PCP - ACO Reach 12/12/23 Charlene Sullivan, [place] Registered Nurse Family Medicine 03/17/24 Lili Gonsales MD [address] [place] [address] Referring Physician Sleep Medicine 08/10/24 Sunny Vasquez, DO [address] [place] [address] Otolaryngology 08/10/24 Eusebio Guerin MD [address] [place] [address] Referring Physician Neurology 09/06/24 Instructor Traffic Safety Relationship Specialty Start Date End Date Tom Field DO [address] [place] [address] PCP - General Family Medicine 02/18/23 Tom Field, DO [address] [place] [address] PCP - ACO Reach 12/12/23 Charlene Sullivan, [place] Registered Nurse Family Medicine 03/17/24 Instructor Traffic Safety Relationship Specialty Start Date End Date Tom Field DO [address] [place] [address] PCP - General Family Medicine 02/18/23 Tom Field, [address] [place] [address] PCP - ACO Reach 12/12/23 Charlene Sullivan, [place] Registered Nurse Family Medicine 03/17/24 Instructor Traffic Safety Relationship Specialty Start Date End Date Tom Field DO [address] [place] [address] PCP - General Family Medicine 02/18/23 Tom Field DO [address] [place] [address] PCP - ACO Reach 12/12/23 Charlene Sullivan, [place] Registered Nurse Family Medicine 03/17/24 Instructor Traffic Safety Relationship Specialty Start Date End Date Tom Field DO [address] [place] [address] PCP - General Family Medicine 02/18/23 Tom Field DO [address] [place] [address] PCP - ACO Reach 12/12/23 Charlene Sullivan, [place] Registered Nurse Family Medicine 03/17/24 Instructor Traffic Safety Relationship Specialty Start Date End Date Tom Field DO [address] [place] [address] PCP - General Family Medicine 02/18/23 Tom Field DO [address] [place] [address] PCP - ACO Reach 12/12/23 Charlene Sullivan, [place] Registered Nurse Family Medicine 03/17/24 Lili Gonsales MD [address] [place] [address] Referring Physician Sleep Medicine 08/10/24 Sunny Vasquez, DO [address] [place] [address] Otolaryngology 08/10/24 Eusebio Guerin MD [address] [place] [address] Referring Physician Neurology 09/06/24 Instructor Traffic Safety Relationship Specialty Start Date End Date Tom Field DO [address] [place] [address] PCP - General Family Medicine 02/18/23 Tom Field DO [address] [place] [address] PCP - ACO Reach 12/12/23 Charlene Sullivan, [place] Registered Nurse Family Medicine 03/17/24 Lili Gonsales MD [address] [place] [address] Referring Physician Sleep Medicine 08/10/24 Sunny Vasquez, DO [address] [place] [address] Otolaryngology 08/10/24 Eusebio Guerin MD [address] [place] [address] Referring Physician Neurology 09/06/24 Instructor Traffic Safety Relationship Specialty Start Date End Date Tom Field DO [address] [place] [address] PCP - General Family Medicine 02/18/23 Tom Field DO [address] [place] [address] PCP - ACO Reach 12/12/23 Charlene Sullivan, RN Registered Nurse Family Medicine 03/17/24 Lili Gonsalse MD [address] [place] [address] Referring Physician Sleep Medicine 08/10/24 Sunny Vasquez DO [address] [place] [address] Otolaryngology 08/10/24 Eusebio Guerin MD [address] [place] [address] Referring Physician Neurology 09/06/24 Team Status: Inactive Member Role Status Dates Benedicto Field DO Primary Care Provider Active Start: October 04, 2024 End: October 04, 2024 Tom Conde MD Attending Provider Activ e Start: October 04, 2024 End: October 04, 2024 Team Status: Inactive Member Role Status Dates Benedicto Field DO Primary Care Provider Active Start: October 08, 2024 End: October 08, 2024 Tom Conde MD Attending Provider Activ e Start: October 08, 2024 End: October 08, 2024 Team Status: Active Member Role Status Dates Benedicto Field DO Primary Care Provider Active Start: October 08, 2024 Tom Conde MD Other Provider Active Start: October 08, 2024 Alf Levine MD Attending Provider Active Start: October 08, 2024 Team Status: Inactive Member Role Status Dates Benedicto Field DO Primary Care Provider Active Start: December 20, 2024 End: December 20, 2024 Sunny Vasquez DO Attending Provider Active S tart: December 20, 2024 End: December 20, 2024 Team Status: Inactive Member Role Status Dates Benedicto Field DO Primary Care Provider Active Start: January 03, 2025 End: January 03, 2025 Sunny Vasquez DO Attending Provider Active S tart: January 03, 2025 End: January 03, 2025 Team Status: Active Member Role Status Dates Benedicto Field DO Primary Care Provider Active Start: January 05, 2025 Tom Conde MD Other Provider Active Start: January 05, 2025 Alf Levine MD Attending Provider Active Start: January 05, 2025 Team Status: Inactive Member Role Status Dates Benedicto Field DO Primary Care Provider Active Start: January 05, 2025 End: January 05, 2025 Tom Conde MD Attending Provider Activ e Start: January 05, 2025 End: January 05, 2025 Instructor Traffic Safety Relationship Specialty Start Date End Date Tom Field DO [address] [place] [address] PCP - General Family Medicine 02/18/23 Tom Field DO [address] [place] [address] PCP - ACO Reach 12/12/23 Charlene Sullivan, RN Registered Nurse Family Medicine 03/17/24 Lili Gonsales MD [address] [place] [id number] Referring Physician Sleep Medicine 08/10/24 Sunny Vasquez, DO [address] [place] [address] Otolaryngology 08/10/24 Eusebio Guerin MD [address] [place] [address] Referring Physician Neurology 09/06/24 Hillary Wilhelm PA [address] [place], [place] [address] Physician Maker [employer] Neurology 12/29/24 Instructor Traffic Safety Relationship Specialty Start Date End Date Tom Field DO [address] [place] [address] PCP - General Family Medicine 02/18/23 Tom Field DO [address] [facility] [address] [facility] [address] [place] [address] PCP - ACO Reach 12/12/23 Charlene Sullivan, [place] Registered Nurse Family Medicine 03/17/24 Lili Gonsales MD [address] [facility] [place] [id number] Referring Physician Sleep Medicine 08/10/24 Sunny Vasquez, DO [address] [place] [address] Otolaryngology 08/10/24 Eusebio Guerin MD [address] [place] [address] Referring Physician Neurology 09/06/24 Hillary Wilhelm PA [address] [place] [address] Physician Maker [employer] Neurology 12/29/24 Instructor Traffic Safety Relationship Specialty Start Date End Date Tom Field DO [address] [place] [address] PCP - General Family Medicine 02/18/23 Tom Field DO [address] [place] [address] PCP - ACO Reach 12/12/23 Charlene Sullivan, [place] Registered Nurse Family Medicine 03/17/24 Lili Gonsales MD Referring Physician Sleep Medicine 08/10/24 Sunny Vasquez DO [address] [place] [address] Otolaryngology 08/10/24 Eusebio Guerin MD [address] [facility] [place] [address] Referring Physician Neurology 09/06/24 Hillary Wilhelm PA [address] [facility] [address] Physician Maker [employer] Neurology 12/29/24 Instructor Traffic Safety Relationship Specialty Start Date End Date Tom Field DO [address] [place] [address] PCP - General Family Medicine 02/18/23 Tom Field DO [address] [place] [address] PCP - ACO Reach 12/12/23 Charlene Sullivan, RN Registered Nurse Family Medicine 03/17/24 Lili Gonsales MD Referring Physician Sleep Medicine 08/10/24 Sunny Vasquez DO [address] [facility] [place] [address] Otolaryngology 08/10/24 Eusebio Guerin MD [address] [place], [place] [address] Referring Physician Neurology 09/06/24 Hillary Wilhelm PA [address] [place] [address] Physician Maker [employer] Neurology 12/29/24 Instructor Traffic Safety Relationship Specialty Start Date End Date Tom Field DO [address] [place] [address] PCP - General Family Medicine 02/18/23 Tom Field DO [address] [place] [address] PCP - ACO Reach 12/12/23 Charlene Sullivan, [place] Registered Nurse Family Medicine 03/17/24 Lili Gonsales MD Referring Physician Sleep Medicine 08/10/24 Sunny Vasquez DO [address] [place] [address] Otolaryngology 08/10/24 Eusebio Guerin MD [address] [place] [address] Referring Physician Neurology 09/06/24 Hillary Wilhelm PA [address] [place] [address] Physician Maker [employer] Neurology 12/29/24 Instructor Traffic Safety Relationship Specialty Start Date End Date Tom Field DO [address] [place] [address] PCP - General Family Medicine 02/18/23 Tom Field DO [address] [place] [address] PCP - ACO Reach 12/12/23 Lili Gonsales MD [address] [place] [address] Referring Physician Sleep Medicine 08/10/24 Sunny Vasquez DO [address] [place] [address] Otolaryngology 08/10/24 Eusebio Guerin MD [address] [place] [address] Referring Physician Neurology 09/06/24 Hillary Wilhelm PA [address] [place] [address] Physician Maker [employer] Neurology 12/29/24 Instructor Traffic Safety Relationship Specialty Start Date End Date Tom Field DO [address] [place] [address] PCP - General Family Medicine 02/18/23 Tom Field DO [address] [place] [address] PCP - ACO Reach 12/12/23 Lili Gonsales MD [address] [place] [address] Referring Physician Sleep Medicine 08/10/24 Sunny Vasquez DO [address] [place] [address] Otolaryngology 08/10/24 Eusebio Guerin MD [address] [place] [address] Referring Physician Neurology 09/06/24 Hillary Wilhelm PA [address] [place] [address] Physician Maker [employer] Neurology 12/29/24 Instructor Traffic Safety Relationship Specialty Start Date End Date Tom Field DO [address] [place] [address] PCP - General Family Medicine 02/18/23 Tom Field DO [address] [place] [address] PCP - ACO Reach 12/12/23 Lili Gonsales MD [address] [place] [address] Referring Physician Sleep Medicine 08/10/24 Sunny Vasquez DO [address] [place] [address] Otolaryngology 08/10/24 Eusebio Guerin MD [address] [place] [address] Referring Physician Neurology 09/06/24 Hillary Wilhelm PA [address] [place] [address] Physician Maker [employer] Neurology 12/29/24 Instructor Traffic Safety Relationship Specialty Start Date End Date Tom Field DO [address] [place] [address] PCP - General Family Medicine 02/18/23 Tom Field DO [address] [place] [address] PCP - ACO Reach 12/12/23 Lili Gonsales MD [address] [place] [address] Referring Physician Sleep Medicine 08/10/24 Sunny Vasquez DO [address] [place] [address] Otolaryngology 08/10/24 Eusebio Guerin MD [address] [place] [address] Referring Physician Neurology 09/06/24 Hillary Wilhelm PA [address] [place] [address] Physician Maker [employer] Neurology 12/29/24 Goals (unrecognized section and content) Goals may be documented in a n alternate section Reason for Visit (unrecogniz ed section and content) Reason Comments Med Change Request Reason Onset Date Comments Med Refill 02/03/2025 Reason Comments Skin Check Reason Comments Results Diabetes Pain Hypertension Hyperlipidemia [...] BE BASED ON THE PRIMARY CLINICAL RECORDS. [employer] provides no warranty or guarantee of the accuracy or completeness of information in this document.
--- NOTE | 2025-03-16 08:38 | PM.CN ---
Consult Note: HPI Data of Consult Patient: known to practice within the last 3 years Requesting Physician: Machelle Jimenez NP Primary Care Provider: Valentino ANDRES Consult Narrative Reason for consult: f/u Narrative: Ramon Mariee a pleasant 79 year old male presents for evaluation and management of chronic low back pain. Today rating pain 4/10, pain is increased with walking standing ADLS bending lifting and decreased with rest and sleep. longstanding hx of low back pain secondary to lumbar spondylosis and lumbar stenosis. has completed 6 weeks of provider guided HEP without improvement in pain or function. no benefit to heat or ice. mild relief from baclofen and tylenol, moderate relief from tramadol. since last visit has noticed his pain and functional ability has been well controlled with his current medication regimen. he is not interested in steroidal injections right now as he is trying to improve his A1c. cc:: CC: Machelle Jimenez NP Review of Systems ROS Status of ROS 10 or more systems reviewed and unremarkable except as noted in history and below [facility] Medical History Pacemaker ?Z95.0 - Presence of cardiac pacemaker (ICD-10) Low back pain ?M54.50 - Low back pain, unspecified (ICD-10) Diabetes ?E11.9 - Type 2 diabetes mellitus without complications (ICD-10) Acute prostatitis ?N41.0 - Acute prostatitis (ICD-10) High cholesterol ?E78.00 - Pure hypercholesterolemia, unspecified (ICD-10) Hypertension ?I10 - Essential (primary) hypertension (ICD-10) Congestive heart failure ?I50.9 - Heart failure, unspecified (ICD-10) Angina at rest ?I20.8 - Other forms of angina pectoris (ICD-10) Heart attack ?I21.9 - Acute myocardial infarction, unspecified (ICD-10) Surgical History H/O heart artery stent ?Z95.5 - Presence of coronary angioplasty implant and graft (ICD-10) History of arthroplasty of left knee ?Z96.652 - Presence of left artificial knee joint (ICD-10) History of arthroplasty of right knee ?Z96.651 - Presence of right artificial knee joint (ICD-10) History of cholecystectomy ?Z90.49 - Acquired absence of other specified parts of digestive tract (ICD-10) Meds Home Medications and Allergies Home Medications ?Medication ?Instructions ?Recorded ?Confirmed ?Type B complex 11-folic acid 1 mg-C 100 1 tab PO QDAY 03/13/23 12/14/24 History mg-biotin 300 mcg-zinc 50 mg tablet (Dialyvite) acetaminophen 325 mg capsule 500 mg PO QID PRN pain 03/13/23 12/14/24 History (Tylenol) amlodipine 10 mg tablet 10 mg PO QDAY 03/13/23 12/14/24 History aspirin 325 mg tablet,delayed 81 mg PO QDAY 03/13/23 12/14/24 History release atorvastatin 20 mg tablet 20 mg PO QDAY 03/13/23 12/14/24 History coenzyme Q10 75 mg capsule (Ultra 75 mg PO QDAY 03/13/23 12/14/24 History CoQ10) glimepiride 1 mg tablet (Amaryl) 1 mg PO QDAY 03/13/23 12/14/24 History insulin glargine 100 unit/mL (3 10 unit subcut QAM 03/13/23 12/14/24 History mL) subcutaneous pen (Lantus Solostar U-100 Insulin) lisinopril 10 mg tablet 5 mg PO QDAY 03/13/23 12/14/24 History metoprolol succinate 25 mg PO QDAY 03/13/23 12/14/24 History omega 2-ive-gjz-fish oil 1,000 mg 1 cap PO QDAY 03/13/23 12/14/24 History (120 mg-180 mg) capsule (Fish Oil) oxybutynin chloride 10 mg 10 mg PO QDAY 03/13/23 12/14/24 History tablet,extended release 24 hr vitamin E 268 mg (400 unit) capsule 180 mg PO QDAY 03/13/23 12/14/24 History tramadol 50 mg tablet 50 mg PO BID 11/20/23 12/14/24 History acetaminophen 500 mg tablet 500 mg PO .8 hours 03/12/24 12/14/24 History (Tylenol Extra Strength) carbidopa 25 mg-levodopa 100 mg 1 tab PO BID 03/12/24 12/14/24 History tablet (Sinemet) metformin 500 mg tablet 500 mg PO DAILY 03/12/24 12/14/24 History baclofen 10 mg tablet 10 mg PO BID #60 tabs 01/06/25 Rx tramadol 50 mg tablet 50 mg PO BID PRN pain #60 tabs 01/06/25 Rx Allergies Allergy/AdvReac Type Severity Reaction Status Date / Time No Known Drug Allergies Allergy Verified 12/14/24 06:53 Exam Constitutional Documenting provider has reviewed patient's vital signs: yes Common normals: no apparent distress, oriented x3, healthy appearing, alert and well nourished General appearance: cooperative HENMT Common normals: normocephalic, hearing grossly normal bilaterally and moist oral mucous membranes Head and scalp: normocephalic Eye Common normals: PERRL Pupil: PERRL Neck & C-Spine Common normals: full ROM General: normal visual inspection Chest Common normals: inspection of chest normal Respiratory Common normals: normal respiratory effort, no retractions and no use of accessory muscles Back & Pelvis Lumbar spine/lower back: ROM limited, pain with ROM, straight leg raise positive right and straight leg raise positive left Other: decreased sensation bilateral L4,5,S1 strength 4/5 in BLE Extremity Common normals: normal to inspection and full ROM Neuro Common normals: oriented x3 Sensorium/orientation: alert Gait (neuro): antalgic Motor exam: strength 5/5 throughout and no movement abnormalities noted Psych Common normals: mental status grossly normal, thought process normal, cooperative, affect normal, speech normal and activity/motor behavior normal Speech: normal speech Thought process: normal thought process Results Additional Findings Additional findings: If on a controlled substance or opioids, I have checked an [place] report on this patient and there are no aberrancies noted in the prescribing history.??If on a controlled substance or opioid a drug screen was completed and reviewed within the last year, and if there has not been a drug screen completed we ordered one today to monitor higher risk, state monitored pain medication use. As part of providing excellent, safe, comprehensive care, the following was completed at our patient's visit: 1. A medication reconciliation and review to ensure accurate knowledge of current/active medications, including asking our patients to inform us about any [id number] medications or herbal remedies/nutritional supplements/alternative remedies. 2. A review to specifically ensure our patients have had annual screening for screening for depression, screening for tobacco use, and screening for unhealthy alcohol use. For concerning screenings had a discussion with the patient, provided patient education, and recommended follow-up with primary care provider when appropriate. If patient noted with a risk of falling, they received education on strength, gait, and balance training to prevent future risk of falling. Portions of this note may have been carried over from the previous visit and updated as appropriate. Please note this office utilizes paper charting in addition to the electronic medical record. A list of current medications, vitals, and PMH is available there as the clinical staff outside of myself do not have access to [employer] charting during the clinic day operations. As part of providing quality comprehensive care the current medications, vitals, and PMH were reviewed in the paper chart. Assessment and Plan Assessment and Plan (1) Lumbar stenosis with neurogenic claudication: Assessment and Plan: The patient has had over 3 months of moderate to severe low back pain with functional impairment and inadequate response to conservative care including NSAIDS (unless there are contraindication such as concurrent blood thinners), multiple oral or topical pain medications, and home exercise program/physical therapy.? Patient has completed >6 weeks of guided home exercise program and/or formal physical therapy program without relief of their symptoms.? I have reviewed the imaging of the lumbar spine and no red flags were identified.? The imaging reveals radiographic findings consistent with lumbar spondylosis and lumbar stenosis with NC The Oswestry Disability Index was completed, and the patient scored a 38%.?significant improvement from prior The patient noted the following:?? 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 The patient does not report intolerable side effects. The patient is NOT opioid naive and non-pharmacologic and non-opioid treatment has failed to significantly relieve the patient's pain and improve functionality. The patient has a diagnosis that is related to a somatic or visceral pain etiology. ? ?? I reviewed with the patient the potential risks and side effects with the use of? opioid medications including but not limited to respiratory depression,? sedation, and even . Within the last 12 months I have verified the patient has access to naloxone should? these effects occur. The patient was advised to let? their family know they had Naloxone in case they would need to administer? the medication. I advised the patient to avoid the use of any other? sedation substances including alcohol, THC, and benzodiazepines while? taking opioid medications due to the risk of compounding side effects and? detrimental outcomes. within the last 12 months I have reviewed the [employer], pain treatment agreement and urine drug screen.? ?? A drug screen was completed within the last year, and no aberrancies were noted regarding their use of controlled substances. The patient understands they are subject to the terms and conditions of the pain contract that they have signed. ? ?? I have checked an [place] report on this patient today and there are no aberrancies noted in the prescribing history.? Plan continue baclofen 10mg BID PRN pain/spasms continue tramadol 50mg BID PRN moderate to severe pain risks vs benefits of current medication reviewed update narcan script f/u 3 months, sooner if needed
== END 2025-03-16 08:29 | disposition home or self-care (01) ==
PROVIDERS: PCP Family Medicine; Visit Provider Nurse Practitioner
DX: M48.062 Spinal stenosis, lumbar region with neurogenic claudication (principal); M47.816 Spondylosis without myelopathy or radiculopathy, lumbar region; M79.18 Myalgia, other site; Z79.891 Long term (current) use of opiate analgesic
CPT/HCPCS: G0463

== ENCOUNTER 2025-06-08 08:17 | Outpatient (OUT) | payer MEDICARE, SELFPAY ==
--- OUTSIDE RECORDS SUMMARY | 2025-06-08 08:34 | XMS_ITS | CCD ---
Author Organization [facility] Care Team Providers Care Dental Biller Name Role Phone Poli Mercado MD Unavailable Unavailable Ashlee Henry Unavailable Unavailable Danny Thomson Unavailable Unavailable Ashlee Henry Unavailable Unavailable Unavailable Poli Mercado Attending Unavailable Carl, Dr. Ashlee Thorne Primary Care Unavailable Poli Mercado Attending Unavailable UNKNOWN, PCP Referring Unavailable Carl, Dr. Ashlee Thorne Primary Care Unavailable Valentino FIELD DO Primary Care Unavailable JOSY LEACH MD Attending Unavailable Valentino FIELD DO Primary Care Unavailable JOSY LEACH MD Referring Unavailable JOSY LEACH MD Attending Unavailable PERRY ., DR SADIE Parry Attending Unavailable PERRY ., DR SADIE Parry Admitting Unavailable KANICOLASAAN, DR Valentino LOPEZ Primary Care Unavailable DIAMANTE CONNORS Consulting Unavailable PERRY ., DR SADIE Parry Attending Unavailable PERRY ., DR SADIE Parry Admitting Unavailable KALEIGHTON, DR Valentino LOPEZ Primary Care Unavailable PERRY ., DR SADIE Parry Consulting Unavailable PERRY ., DR SADIE Parry Attending Unavailable PERRY ., DR SADIE Parry Admitting Unavailable KALEIGHTON, DR Valentino LOPEZ Primary Care Unavailable ARAMIS, DR AMATO Consulting Unavailable DEANNA ONTIVEROS Attending Unavailable CHRISTIANNE .DEANNA Admitting Unavailable RASHIDA, DR Valentino LOPEZ Primary [...] PERRY ., DR SADIE Parry Consulting Unavailable JASSON .DIAMANTE Consulting Unavailable PERRY ., DR SADIE Parry Attending Unavailable SPAULDING ., DIAMANTE Consulting Unavailable RASHIDA, DR Valentino LOPEZ Primary [...] vailable LAKSHMIPATHY ., NARENDRANATH Consulting Josy vailable KAFTFELIX, DR Valentino LOPEZ Primary Care Unavailable Lili Gonsales Unavailable MD Lili Gonsales Attending Provider DO Benedicto Field Primary Care Provider [phone] DO Benedicto Field Referring Provider [phone] DO Benedicto Field Primary Care Provider MD Lili Gonsales Attending Provider DO Benedicto Field Primary Care Provider [phone] MD Manda Lockwood Attending Provider [phone] MD Coleman Gale Attending Provider DO [...] Primary Care Provider Tom Field DO Unavailable Nate RN, Charlene Unavailable Lili Gonsales MD Unavailable [phone] Sunny Vasquez DO Unavailable Eusebio Guerin MD Unavailable Benedicto Field DO Primary Care Provider Tom Conde MD Attending Provider Sunny Vasquez DO Attending Provider Benedicto Field DO Primary Care Provider [phone] Tom Conde MD Attending Provider Lili Gonsales MD Unavailable [phone] Hillary Lyles Unavailable Lili Gonsales MD Unavailable Lili Gonsales MD Unavailable Eusebio Guerin MD Unavailable Unavailable Benedicto Field DO Primary Care Provider Tom Conde MD Attending Provider Benedicto Field DO Primary Care Provider Tom Conde MD Attending Provider Tom Conde MD Referring Provider Alf Levine MD Attending Provider Eusebio Guerin MD Unavailable Nnamdi Dozier DO Emergency Provider [phone] TOM FIELD Referring Unavailable HILLARY WILHELM Attending Unavailable SUE LOVING Attending Unavailable TOM FIELD Attending Unavailable SARAH CONNELL Attending Unavailable HETAL DAVIES Attending Unavailable TOM FIELD Attending Unavailable DAJA MORENO Attending Unavailable HILLARY WILHELM Attending Unavailable SILVESRTE COOLEY Attending Unavailable SARAH CONNELL Attending Unavailable TOM FIELD Attending Unavailable TOM FIELD Referring Unavailable TOM FIELD Attending Unavailable FER GARCÍA Attending Unavailable TOM FIELD Attending Unavailable SARAH CONNELL Attending Unavailable SUNNY VASQUEZ Attending Unavailable LILI GONSALES Referring Unavailable AUTUMN VALENCIA Attending Unavailable SUNNY VASQUEZ Attending Unavailable SARAH CONNELL Attending Unavailable SUNNY VASQUEZ Attending Unavailable TOM FIELD Attending Unavailable Benedicto Field Primary Care Unavailable Elton, Tom Bueno Attending Unavai lable Elton, Tom Bueno Referring Unavai lable Elton, Tom Bueno Admitting Unavai lable Sunny Vasquez Admitting Unavailable Sunny Vasquez Attending Unavailable Benedicto Field Primary Care Unavailable Sunny Vasquez Attending Unavailable Benedicto Field Primary Care Unavailable Sunny Vasquez Admitting Unavailable Nnamdi Dozier Admitting Unavailable Nnamdi Dozier Attending Unavailable Benedicto Field Primary Care Unavailable Coleman Gale Admitting Unavailable Coleman Gale Attending Unavailable Benedicto Field Primary Care Unavailable Patriciaomnick, Tom Bueno Admitting Unavai lable Benedicto Field Primary Care Unavailable PatriciaomTom romero Attending JosyvaBenedicto Andrews Primary Care Unavailable PatriciaomTom romero Attending Unavai lable Tom Conde Admitting Unavai lable Benedicto Field Primary Care Unavailable Robert Lockett Admitting Unavailable Robert Lockett Attending Unavailable Benedicto Field Primary Care Unavailable Tom Conde Attending Unavai lable Tom Conde Admitting Unavai lable Benedicto Field Primary Care Unavailable PatriciaomTom romero Attending Unavai lable PatriciaomTom romero Admitting Unavai lable Benedicto Field Primary Care Unavailable KoromTom romero Attending Unavai lable Patriciaomnick, Tom Bueno Admitting Unavai lable Allergies Allergy Classification Reported Allergen(s) Allergy Type Date of Onset Reaction(s) Facility (20 sources) Lactose (non-medical use) Propensity to adverse reactions 4 Unknown Reaction [facility] Work Phone: Comment on above: intolerant (20 sources) HYDROcodone; Translations: [hydrocodone] Drug Allergy 5 Nausea [facility] (1 source) Lactose Drug Allergy 5 [facility] Repository Medications Current Medications Medication Drug Class(es) Dates Sig (Normalized) Sig (Original) amLODIPine 5 mg oral tablet (20 sources) Dihydropyridine Calcium Channel Mckenna Start: 05-04-2025 take 1 tablet by mouth once daily amLODIPine (Norvasc) 5 MG tablet Indications: Hypertension, unspecified type , Orthostatic lightheadedness Take 1 tablet (5 mg) by mouth 1 (one) time each day at the same time 90 tablet 1 05/04/2025 Active Start: 05-04-2025 take 1 tablet by libra once daily amLODIPine (Norvasc) 5 MG tablet Indications: Hypertension, unspecified type , Orthostatic lightheadedness Take 1 tablet (5 mg) by mouth 1 (one) time each day at the same time 90 tablet 1 05/04/2025 Active Start: 08-25-2019 End: 05-04-2025 take 1 tablet by mouth once daily in the morning ascorbic acid 1000 mg oral tablet (1 source) Vitamin C take 1 tablet by mouth once daily Ascorbic Acid 1000 MG 1 tablet Orally Once a day Active aspirin 81 mg delayed release oral tablet (20 sources) Platelet Aggregation Inhibitor, Nonsteroidal Anti-inflammatory Drug Start: 0 End: 5 take 1 tablet by mouth once daily Aspirin Low Dose 81 MG EC tablet Indications: 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, unspecified vessel or lesion type, unspecified whether [place] or transplanted heart , Type 2 diabetes mellitus without complication, with long-term current use of insulin (HCC) TAKE 1 TABLET BY MOUTH EVERY DAY 90 tablet 3 04/14/2025 Active take 1 tablet by mouth once jean-pierre y Aspirin 81 81 MG 1 tablet Orally Once a day Active atorvastatin 20 mg oral tablet (20 sources) HMG-CoA Reductase Inhibitor Start: 04-12-2019 take 1 tablet by mouth once daily atorvastatin (Lipitor) 20 MG tablet Indications: Hypertensive heart disease with heart failure (HCC) TAKE 1 TABLET BY MOUTH EVERYDAY AT THE SAME TIME 90 tablet 1 01/14/2025 Active take 1 tablet by libra th every twenty-four hours Atorvastatin Calcium 10 MG 1 tablet Oral ly Once a day Active baclofen 10 mg oral tablet (20 sources) gamma-Aminobutyric Acid-ergic Agonist Start: 01-06-2025 End: 05-04-2025 take 1 tablet by mouth in the morning baclofen (Lioresal) 10 MG tablet Take 10 mg by mouth in the morning and 10 mg before bedtime. 01/06/2025 05/04/2025 Discontinued carbidopa 25 mg / levodopa 100 mg oral tablet (20 sources) Aromatic Amino Acid Decarboxylation Inhibitor, Aromatic Amino Acid Start: 05-04-2025 carbidopa-levodopa (Sinemet) 25-100 MG tablet Indications: Parkinson's disease with dyskinesia and fluctuating manifestations (HCC) TAKE 2 TABLET BY MOUTH AT 8AM, 2 tablet at eleven, 2 tablets at 2PM, AND 2 tablet at 5PM 05/04/2025 Active Start: 05-04-2025 carbidopa-levo dopa (Sinemet) 25-100 MG tablet Indications: Parkinson's disease with dyskinesia and fluctuating manifestations (HCC) TAKE 2 TABLET BY MOUTH AT 8AM, 2 tablet at eleven, 2 tablets at 2PM, AND 2 tablet at 5PM 05/04/2025 Active Start: 05-02-2025 take 2 tablets by mo uth four times daily Start: 09-14-2024 End: 05-04-2025 carbidopa-levodopa (Sinemet) 25-100 MG tablet Indications: Parkinson's disease with dyskinesia and fluctuating manifestations (HCC) TAKE 2 TABLET BY MOUTH AT 8AM, 2 tablet at NOON, 2 tablets at 3PM, AND 2 tablet at 6PM 240 tablet 3 12/29/2024 05/04/2025 Discontinued Start: 09-14-2024 End: 05-02-2025 take 2 tablets by mouth every three hours Carbidopa-Levodopa (Sinemet) 25-100 mg tablet Discontinued 1 TAB PO .COMPLEX September 14, 2024 11:29am May 02, 2025 2:48pm take 2 tabs q3h Start: 08-10-2024 carbidopa-levo dopa (Sinemet) 25-100 MG [...] 12:00am June 15, 2024 11:19am Continuous Glucose Advertisement Distributor (FreeStyle Lillian 2 Markle) device (5 sources) Start: 02-02-2024 End: 06-15-2024 Continuous Glucose Advertisement Distributor (FreeStyle Lillian 2 Markle) device Indications: Type 2 diabetes mellitus without complication, with long-term current use of insulin ([facility]) Dispense 1 reader device for every day use to check blood sugars E11.9 1 each 02/02/2024 06/15/2024 Discontinued (Therapy completed) Start: 02-02-2024 Continuous Glu cose Advertisement Distributor (FreeStyle Lillian 2 Markle) device Indications: Type 2 diabetes mellitus without complication, with long-term current use of insulin ([facility]) Dispense 1 reader device for every day use to check blood sugars E11.9 1 each 02/02/2024 Active Continuous Glucose Sensor (FreeStyle Lillian 2 Sensor) misc (20 sources) Start: 06-30-2024 Continuous Glu cose Sensor (FreeStyle Lillian 2 Sensor) misc Indications: Type 2 diabetes mellitus with hyperglycemia, without long-term current use of insulin ([facility]) , Type 2 diabetes mellitus with stage 3b chronic kidney disease, without long-term current use of insulin ([facility]) 1 Units every 14 (fourteen) days 2 each 06/30/2024 Active Start: 06-30-2024 Continuous Glu cose Sensor (FreeStyle Lillian 2 Sensor) [facility] Indications: Type 2 diabetes mellitus with hyperglycemia, without long-term current use of insulin (CMS/HCC) , Type 2 diabetes mellitus with stage 3b chronic kidney disease, without long-term current use of insulin (HCC) (CMS/HCC) 1 Units every 14 (fourteen) days 2 each 06/30/2024 Active Start: 04-19-2024 Continuous Glu cose Sensor (FreeStyle Lillian 2 Sensor) [facility] Indications: Type 2 diabetes mellitus with hyperglycemia, without long-term current use of insulin (CMS/HCC) 1 Units every 14 (fourteen) days 1 each 04/19/2024 Active Start: 02-02-2024 Continuous Glu cose Sensor (FreeStyle Lillian 2 Sensor) [facility] Indications: Type 2 diabetes mellitus with hyperglycemia, without long-term current use of insulin (CMS/HCC) , Type 2 diabetes mellitus with stage 3b chronic kidney disease, without long-term current use of insulin (HCC) (CMS/HCC) 1 Units every 14 (fourteen) days 2 each 02/02/2024 Active CPAP Machine (1 source) CPAP Machine Active 24 hr dapagliflozin 10 mg / metFORMIN hydrochloride 500 mg extended release oral tablet (20 sources) Biguanide, Sodium-Glucose Cotransporter 2 Inhibitor Start: take 1 tablet by mouth once daily in the morning Start: 03-01-2025 take 1 tablet by libra th at mealtime dapagliflozin-metFORMIN ER (Xigduo XR) 10-500 MG Indications: Type 2 diabetes mellitus without complication, with long-term current use of insulin ([facility]) Take 1 tablet by mouth in the morning. Take with meals. 30 tablet 5 03/01/2025 Active Start: 03-01-2025 End: 05-04-2025 dapagliflozin-metFORMIN ER ( Xigduo XR) 10-500 MG per 24 hr tablet 1 tablet docosahexaenoic acid 120 mg / eicosapentaenoic acid 180 mg oral capsule (20 sources) Start: 06-15-2024 End: 05-04-2025 omega-3, EPA+DHA, (Super Sieper-3) 1000 MG capsule 1 capsule 06/15/2024 05/04/2025 Discontinued Fish Oil-Cholecalciferol (FISH OIL + D3 PO) (2 sources) End: 06-07-2024 Fish Oil-Cholecalcifero l (FISH OIL + D3 PO) Take by [...] pen injector (20 sources) Insulin Analog Start: 03-01-2025 insulin glargine (Lantus SoloStar) 100 UNIT/ML pen Indications: Type 2 diabetes mellitus without complication, with long-term current use of insulin (HCC) IF BLOOD SUGAR BELOW 180 DO NOT TAKE, IF BLOOD SUGAR BETWEEN 180 AND 250 INJECT 5 UNITS UNDER THE SKIN. IF BLOOD SUGAR OVER 250 INJECT 10 UNITS ONLY ONCE DAILY. 15 mL 3 03/01/2025 Active Start: 03-01-2025 End: 03-01-2025 insulin glargine (Lantus Tracy oStar) 100 UNIT/ML pen Indications: Type 2 diabetes mellitus without complication, with long-term current use of insulin If blood sugar below 180 do not take. If blood sugar between 180 and 250 take 5 units. If blood sugar over 250 take 10 units. 15 mL 3 03/01/2025 03/01/2025 Discontinued Start: 12-20-2024 Start: 12-20-2024 inject 100 [IU] by s ubcutaneous injection at bedtime Start: 03-24-2024 End: 03-01-2025 inject 10 [IU] [...] 5 MG tablet Indications: Essential (primary) hypertension TAKE 1 TABLET BY MOUTH EVERY DAY [...] Start: 10-04-2024 take 2 tablets by mo uth every twenty-four hours at bedtime metFORMIN XR (Glucophage-XR) 500 MG 24 hr tablet Indications: Type 2 diabetes mellitus without complication, with long-term current use of insulin TAKE 2 TABLETS BY MOUTH IN THE MORNING AND BEFORE BEDTIME*DO NOT CRUSH,CHEW,OR SPLIT* 180 tablet 1 10/04/2024 Active Start: 09-14-2024 End: 03-15-2025 take 1 tablet by mouth twice daily Metformin 500 mg tablet extended release 24 hr Discontinued 500 MG PO Twice daily September 14, 2024 11:30am March 15, 2025 10:20am Start: 06-18-2024 take 2 tablets by mo [...] Indications: Hypertensive heart disease with heart failure (HCC) Take 1 tablet (25 mg) by mouth Daily 90 tablet 3 02/04/2025 Active Start: 03-27-2021 take 1 tablet by [...] 50+MEN PO) Take by mouth 06/07/2024 Discontinued Sieper 7-Uzu-Qnp-Fish Oil (Fish Oil) 1,000 mg (120 mg-180 mg) capsule (10 sources) Start: 06-15-2024 take 1 capsule by mouth once daily Start: 06-15-2024 take 1 capsule by mo uth once daily Sieper 7-Hzu-Pes-Fish Oil (Fish Oil) 1,000 mg (120 mg-180 mg) capsule Active 1 CAP PO Daily June 15, 2024 12:00am psyllium 400 mg oral capsule (10 sources) Start: 03-15-2025 take 6 capsules by mouth once da chraisma psyllium (Metamucil) 0.36 g capsule Take 6 capsules by mouth Daily Active Psyllium Husk (Metamucil) 0.4 gram capsule (1 source) Start: 03-15-2025 Psyllium Husk (Metamucil) 0.4 gram capsule Active 0.4 GM PO Twice daily March 15, 2025 12:00am sildenafil 100 mg oral tablet (17 sources) Phosphodiesterase 5 Inhibitor Start: 03-01-2025 End: 03-01-2026 take 1 tablet by mouth once daily as needed sildenafil (Viagra) 100 MG tablet Indications: Erectile dysfunction, unspecified erectile dysfunction type Take 1 tablet (100 mg) by mouth Daily as needed for erectile dysfunction 12 tablet 5 03/01/2025 03/01/2026 Active Start: 01-24-2022 take 1 tablet by [facility] once daily as needed Sildenafil Citrate 100 MG Oral Tablet TAKE 1 TABLET BY MOUTH NEEDED ONCE DAILY Quantity: 30 Refills: 0 Ordered: 24-Jan-2022 DO Start : 24-Jan-2022 Complete tamsulosin hydrochloride 0.4 mg oral capsule (20 sources) alpha-Adrenergic Mckenna Start: 12-20-2024 take 1 capsule by mouth once daily Start: 12-16-2024 take 1 capsule by [facility] every twenty-four hours at bedtime tamsulosin (Flomax) [...] by mouth Daily 90 tablet 02/07/2025 Active traMADol hydrochloride 50 mg oral tablet [...] mouth once daily as needed for pain Start: 03-29-2021 traMADol HCl - 50 MG [...] 15-Aug-2016 Active take 2 tablets by mo [facility] once daily acetaminophen (Tylenol) 500 MG tablet Indications: Pain Take 1,000 mg by mouth Daily Active Tylenol Active acetaminophen 500 mg / diphenhydrAMINE hydrochloride 25 mg oral tablet (6 sources) Histamine-1 Receptor Antagonist Start: 12-20-2024 End: 05-02-2025 take 2 tablets by mouth once daily at bedtime as needed for sleep and pain Diphenhydramine-Acetaminophen (Tylenol Pm Extra Strength) 25-500 mg tablet Discontinued 2 TAB PO Daily at bedtime as needed for sleep and pain December 20, 2024 12:00am May 02, 2025 12:29pm azithromycin 250 mg oral tablet (1 source) Macrolide Antimicrobial Start: 03-28-2022 Azithromycin 250 MG Oral Tab let Quantity: 6 Refills: 0 Ordered: 28-Mar-2022 DO [...] monohydrate 100 mg oral tablet (20 sources) Tetracycline-cl ass Drug Start: 02-24-2024 End: 02-26-2024 take 1 [...] Bottle levothyroxine sodium 0.025 mg oral tablet (15 sources) l-Thyroxine Start: 06-04-2020 End: 02-06-2024 Levothyroxine 25 mcg tablet Discontinued June 04, 2020 12:00am February 06, 2024 2:19pm Start: 06-04-2020 End: 02-06-2024 Levothyroxine 25 mcg [...] kidney disease (HCC)] Onset: 05-15-2023 05-15-2023 Chronic Conditions associated with dizziness or vertigo (7 sources) Orthostatic hypotension; Translations: [Dizziness and giddiness] Onset: 05-03-2025 05-02-2025 Episodic Conduction disorders (20 sources) H/O: cardiac pacemaker in situ; Translations: [Presence of cardiac pacemaker] Onset: 06-18-2024 06-15-2024 Chronic Congestive heart failure; nonhypertensive (20 sources) Chronic systolic heart failure; Translations: [Chronic systolic (congestive) heart failure] Onset: 05-15-2023 Chronic Coronary atherosclerosis and other heart disease (20 sources) Coronary arteriosclerosis; Translations: [Coronary atherosclerosis of unspecified type of vessel, [place] or graft] Onset: 03-09-2015 06-15-2024 Chronic Delirium, dementia, and amnestic and other cognitive disorders (12 sources) Dementia; Translations: [Unspecified dementia without behavioral disturbance] 03-05-2024 Chronic Diabetes mellitus with complications (20 [...] and unspecified hyperlipidemia] Onset: 05-15-2023 05-15-2023 Chronic E Codes: Fall (2 sources) Fall; Translations: [Unspecified fall, sequela] 05-04-2025 Episodic Essential hypertension (20 sources) Hypertensive disorder; Translations: [Unspecified essential hypertension] Onset: 03-09-2015 Chronic Hyperplasia of prostate (20 sources) Benign prostatic [...] or meniscus of knee, current] Episodic Mycoses (6 sources) Onychomycosis; Translations: [Tinea unguium] 08-26-2024 Episodic [...] without gangrene] 10-25-2024 Chronic Other circulatory disease (12 sources) Abnormal peripheral pulse; Translations: [Other specified [...] site] 07-18-2024 Episodic Other connective tissue disease (3 sources) Pain in both feet; Translations: [Pain [...] conjunctivitis] Episodic Other non-epithelial cancer of skin (4 sources) History of malignant neoplasm of skin; Translations: [Personal history of other malignant neoplasm of skin] 02-01-2025 Episodic Other non-traumatic joint disorders (2 sources) Pain in right knee; Translations: [Pain in joint, lower leg] 05-04-2025 Episodic Other nutritional; endocrine; and metabolic disorders [...] Translations: [Screening for malignant neoplasms of prostate] 03-05-2024 Episodic Other skin disorders (2 sources) Seborrheic keratosis; Translations: [Other seborrheic keratosis] 02-01-2025 Episodic Other skin disorders (2 sources) Lentiginosis; Translations: [Other melanin hyperpigmentation] 02-01-2025 Episodic Peripheral and visceral atherosclerosis (20 sources) [...] influencing health status] Episodic Residual codes; unclassified (12 sources) Altered mental status; Translations: [Altered mental status, unspecified] 03-05-2024 Episodic Skin and subcutaneous tissue infections (15 sources) Cellulitis; Translations: [Cellulitis, unspecified] 06-04-2020 Episodic [...] Translations: [Radiculopathy, lumbar region] Onset: 05-23-2022 Episodic Syncope (2 sources) Near syncope; Translations: [Syncope and collapse] Onset: 05-02-2025 05-02-2025 Episodic Thyroid disorders (20 sources) Hypothyroidism; Translations: [Hypothyroidism, unspecified] Onset: 05-15-2023 05-15-2023 Chronic Unclassified (20 sources) Parkinson's disease; Translations: [Parkinson's disease] 03-05-2024 [...] 03-09-2015 06-15-2024 Episodic Fluid and electrolyte disorders (20 sources) Dehydration; Translations: [Dehydration] Onset: 01-04-2025 03-05-2024 Episodic Heart valve disorders (1 source) Cardiac [...] Translations: [Shortness of breath] Onset: 10-04-2024 Episodic Unclassified (1 source) LOW BACK PAIN, UNSPECIFIED; Translations: [LOW BACK PAIN, UNSPECIFIED] Onset: 02-06-2023 NEGATED: Highlighted row has not occurred!Residual codes; unclassified (6 sources) Disease Episodic Results Test Name Value Interpretation Reference Range Facility Hepatic function 2000 panelo n 05-12-2025 Albumin [Mass/Vol] 3.9 g/dL 3.8 - 4.8 g/dL [facility] ALP [Catalytic activity/Vol] 160 U/L High [facility] ALT [Catalytic activity/Vol] U/L [facility] Comment on above: Verified by repeat analysis AST [Catalytic activity/Vol] 6 U/L [facility] Bilirubin [Mass/Vol] 0.3 mg/dL 0.0 - 1 .2 mg/dL [facility] Bilirubin.direct [Mass/Vol] 0.13 mg/dL 0.00 - 0.40 mg/dL [facility] Interpretation and review of laboratory results Abnormal [facility] Protein [Mass/Vol] 6.8 g/dL 6.0 - 8.5 g/dL [facility] No Panel Informationon 05-12 Performed at: [address] [place] [id number] Heel Splitter: Nahun Pickering PhD, Phone: [phone] [facility] Specimen Status Reporton Clindamycin Disk diffusion (KB) [Susc] Comment [facility] Comment on above: Jennifer Veras [facility] Default A hand-written panel/profile was received from your office. In accordance with the [facility] Ambiguous Test Code Policy dated April 2003, we have completed your order by using the closest currently or formerly recognized AMA panel. We have assigned Hepatic Function Panel (7), Test Code #[id number] to this request. If this is not the testing you wished to receive on this specimen, please contact the [facility] Client Inquiry/Technical Services Department to clarify the test order. We appreciate your business. XR KNEE 3 VIEWS RIGHTon 04-13 XR KNEE 3 VIEWS RIGHT EXAMINATION/TECHNI QUE : XR KNEE 3 VIEWS RIGHT HISTORY: Fall with right knee pain. COMPARISON: None RESULT: Right total knee arthroplasty with patellar resurfacing. Hardware grossly intact. No evidence for periprosthetic fracture or acute fracture elsewhere about the knee. Mild soft tissue edema. Vascular calcifications. IMPRESSION: No acute osseous findings. ELECTRONICALLY SIGNED BY: Roe Garcia MD Normal Not Available B-Type Natriuretic Peptideon 05-02-2025 Natriuretic peptide B (Bld) [Mass/Vol] 83.0 pg/mL Normal 5-100 [facility] Comment on above: Result Comment: PERF ORMED BY: [facility] [address] [place] [address] PATHOLOGIST JACQUARD LOOM WEAVER MARE CARLOS M.D. Performed By: #### B PROOF MACHINE OPERATOR, CBC, PT, CMP, CK, HS TROP, MG, PTT ####[address] Complete Blood Count Auto Di ffon 05-02-2025 Basophils (Bld) [#/Vol] 0.0 10*3/uL Normal 0.0-0.2 [facility] Comment on above: Result Comment: PERF ORMED BY: [facility] [address] [place] [address] PATHOLOGIST JACQUARD LOOM WEAVER MARE CARLOS M.D. Performed By: #### B PROOF MACHINE OPERATOR, CBC, PT, CMP, CK, HS TROP, MG, PTT ####[address] Basophils/100 WBC (Bld) 0.6 % Normal . [facility] [facility] Comment on above: Performed By: #### B PROOF MACHINE OPERATOR, CBC, PT, CMP, CK, HS TROP, MG, PTT ####[address] Eosinophils (Bld) [#/Vol] 0.3 10*3/uL Normal 0.0-0.45 [facility] Comment on above: Performed By: #### B PROOF MACHINE OPERATOR, CBC, PT, CMP, CK, HS TROP, MG, PTT ####[address] Eosinophils/100 WBC (Bld) 3.8 % Normal . [facility] Comment on above: Performed By: #### B PROOF MACHINE OPERATOR, CBC, PT, CMP, CK, HS TROP, MG, PTT ####[address] Erythrocyte distribution width (RBC) [Ratio] 14.5 % Normal 12.0-14.8 [facility] Comment on above: Performed By: #### B PROOF MACHINE OPERATOR, CBC, PT, CMP, CK, HS TROP, MG, PTT ####[address] Hematocrit (Bld) [Volume fraction] 37.6 % Low 38.8-50.0 [facility] Comment on above: Performed By: #### B PROOF MACHINE OPERATOR, CBC, PT, CMP, CK, HS TROP, MG, PTT ####[address] Hemoglobin (Bld) [Mass/Vol] 12.4 g/dL Low 13.0-17.0 [facility] Comment on above: Performed By: #### B PROOF MACHINE OPERATOR, CBC, PT, CMP, CK, HS TROP, MG, PTT ####[address] Lymphocytes (Bld) [#/Vol] 2.2 10*3/uL Normal 1.00-4.8 [facility] Comment on above: Performed By: #### B PROOF MACHINE OPERATOR, CBC, PT, CMP, CK, HS TROP, MG, PTT ####[address] Lymphocytes/100 WBC (Bld) 30.5 % Normal . [facility] Comment on above: Performed By: #### B PROOF MACHINE OPERATOR, CBC, PT, CMP, CK, HS TROP, MG, PTT ####[address] MCH (RBC) [Entitic mass] 29.4 pg Normal 27.5-35.2 [facility] Comment on above: Performed By: #### B PROOF MACHINE OPERATOR, CBC, PT, CMP, CK, HS TROP, MG, PTT ####[address] MCV (RBC) [Entitic vol] 89.2 fL Normal 83.5-101 [facility] Comment on above: Performed By: #### B PROOF MACHINE OPERATOR, CBC, PT, CMP, CK, HS TROP, MG, PTT ####[address] Mean Corpuscular HGB Conc 33.0 g/dL Normal 32.5-35.6 [facility] Comment on above: Performed By: #### B PROOF MACHINE OPERATOR, CBC, PT, CMP, CK, HS TROP, MG, PTT ####[address] Monocytes (Bld) [#/Vol] 0.6 10*3/uL Normal 0.0-0.8 [facility] Comment on above: Performed By: #### B PROOF MACHINE OPERATOR, CBC, PT, CMP, CK, HS TROP, MG, PTT ####[address] Monocytes/100 WBC (Bld) 18.89 % Normal 0.00-20.00 [facility] Comment on above: Performed By: #### B PROOF MACHINE OPERATOR, CBC, PT, CMP, CK, HS TROP, MG, PTT ####[address] Monocytes/100 WBC (Bld) 8.0 % Normal . [facility] Comment on above: Performed By: #### B PROOF MACHINE OPERATOR, CBC, PT, CMP, CK, HS TROP, MG, PTT ####[address] Neutrophils (Bld) [#/Vol] 4.1 10*3/uL Normal 1.8-7.7 [facility] Comment on above: Performed By: #### B PROOF MACHINE OPERATOR, CBC, PT, CMP, CK, HS TROP, MG, PTT ####[address] Neutrophils/100 WBC (Bld) 57.1 % Normal . [facility] Comment on above: Performed By: #### B PROOF MACHINE OPERATOR, CBC, PT, CMP, CK, HS TROP, MG, PTT ####[address] NRBC% 0.1 /100{WBC} Normal 0-0.5 [facility] Comment on above: Performed By: #### B PROOF MACHINE OPERATOR, CBC, PT, CMP, CK, HS TROP, MG, PTT ####[address] Platelet mean volume (Bld) [Entitic vol] 8.4 fL Normal 6.6-10.1 [facility] Comment on above: Performed By: #### B PROOF MACHINE OPERATOR, CBC, PT, CMP, CK, HS TROP, MG, PTT ####[address] Platelets (Bld) [#/Vol] 254 10*3/uL Normal 150-450 [facility] Comment on above: Performed By: #### B PROOF MACHINE OPERATOR, CBC, PT, CMP, CK, HS TROP, MG, PTT ####[address] RBC (Bld) [#/Vol] 4.22 10*6/uL Normal 3.90-5.60 [facility] Comment on above: Performed By: #### B PROOF MACHINE OPERATOR, CBC, PT, CMP, CK, HS TROP, MG, PTT ####[address] WBC (Bld) [#/Vol] 7.2 10*3/uL Normal 4.1-10.5 [facility] Comment on above: Performed By: #### B PROOF MACHINE OPERATOR, CBC, PT, CMP, CK, HS TROP, MG, PTT ####[address] White Blood Count 7.2 [CFU]/mL Normal 4.1-10.5 [facility] Comment on above: Performed By: #### B PROOF MACHINE OPERATOR, CBC, PT, CMP, CK, HS TROP, MG, PTT ####[address] Comprehensive Metabolic Pane lars 05-02-2025 Albumin [Mass/Vol] 3.8 g/dL Normal 3.5-5.7 [facility] Comment on above: Performed By: #### B PROOF MACHINE OPERATOR, CBC, PT, CMP, CK, HS TROP, MG, PTT ####[address] Albumin/Globulin [Mass ratio] 1.2 {ratio} Normal [facility] Comment on above: Performed By: #### B PROOF MACHINE OPERATOR, CBC, PT, CMP, CK, HS TROP, MG, PTT ####[address] ALP [Catalytic activity/Vol] 146 U/L High 34-104 [facility] Comment on above: Performed By: #### B PROOF MACHINE OPERATOR, CBC, PT, CMP, CK, HS TROP, MG, PTT ####[address] ALT [Catalytic activity/Vol] U/L Low 7-52 [facility] Comment on above: Performed By: #### B PROOF MACHINE OPERATOR, CBC, PT, CMP, CK, HS TROP, MG, PTT ####[address] Anion gap [Moles/Vol] 10.7 mmol/L Normal 6.0-15.0 [facility] Comment on above: Performed By: #### B PROOF MACHINE OPERATOR, CBC, PT, CMP, CK, HS TROP, MG, PTT ####[address] AST [Catalytic activity/Vol] 12 U/L Low 13-39 [facility] Comment on above: Performed By: #### B PROOF MACHINE OPERATOR, CBC, PT, CMP, CK, HS TROP, MG, PTT ####[address] Bilirubin [Mass/Vol] 0.4 mg/dL Normal 0.3-1.0 [facility] Comment on above: Performed By: #### B PROOF MACHINE OPERATOR, CBC, PT, CMP, CK, HS TROP, MG, PTT ####[address] Calcium [Mass/Vol] 9.4 mg/dL Normal 8.6-10.3 [facility] Comment on above: Performed By: #### B PROOF MACHINE OPERATOR, CBC, PT, CMP, CK, HS TROP, MG, PTT ####[address] Chloride [Moles/Vol] 106 mmol/L Normal 98-107 [facility] Comment on above: Performed By: #### B PROOF MACHINE OPERATOR, CBC, PT, CMP, CK, HS TROP, MG, PTT ####[address] CO2 [Moles/Vol] 23.7 mmol/L Normal 21.0-31.0 [facility] Comment on above: Performed By: #### B PROOF MACHINE OPERATOR, CBC, PT, CMP, CK, HS TROP, MG, PTT ####[address] Creatinine [Mass/Vol] 1.55 mg/dL High 0.70-1.30 [facility] Comment on above: Performed By: #### B PROOF MACHINE OPERATOR, CBC, PT, CMP, CK, HS TROP, MG, PTT ####[address] Creatinine Clr Calc Pharmacy 42.23 Normal [facility] Comment on above: Performed By: #### B PROOF MACHINE OPERATOR, CBC, PT, CMP, CK, HS TROP, MG, PTT ####[address] GFR/1.73 sq M.predicted MDRD (S/P/Bld) [Vol rate/Area] 45.249 mL/min/{1.73_m2} Normal [facility] Comment on above: Performed By: #### B PROOF MACHINE OPERATOR, CBC, PT, CMP, CK, HS TROP, MG, PTT ####[address] Globulin (S) [Mass/Vol] 3.2 g/dL Normal [facility] Comment on above: Performed By: #### B PROOF MACHINE OPERATOR, CBC, PT, CMP, CK, HS TROP, MG, PTT ####[address] Glucose [Mass/Vol] 192 mg/dL High 70-100 [facility] Comment on above: Result Comment: [place] Glucose Reference Range is dependent on time and content of last meal. Glucose of more than 200 mg/dL in a nonstressed, ambulatory subject supports the diagnosis of Diabetes Mellitus. ADA recommended reference range Performed By: #### B PROOF MACHINE OPERATOR, CBC, PT, CMP, CK, HS TROP, MG, PTT ####[address] Potassium [Moles/Vol] 4.4 mmol/L Normal 3.5-5.1 [facility] Comment on above: Performed By: #### B PROOF MACHINE OPERATOR, CBC, PT, CMP, CK, HS TROP, MG, PTT ####[address] Protein [Mass/Vol] 7.0 g/dL Normal 6.4-8.9 [facility] Comment on above: Performed By: #### B PROOF MACHINE OPERATOR, CBC, PT, CMP, CK, HS TROP, MG, PTT ####[address] Sodium [Moles/Vol] 136 mmol/L Normal 136-145 [facility] Comment on above: Performed By: #### B PROOF MACHINE OPERATOR, CBC, PT, CMP, CK, HS TROP, MG, PTT ####[address] Urea nitrogen [Mass/Vol] 35 mg/dL High 7-25 [facility] Comment on above: Performed By: #### B PROOF MACHINE OPERATOR, CBC, PT, CMP, CK, HS TROP, MG, PTT ####[place] [id number] [facility] Creatine Kinaseon 05-02-2025 CK [Catalytic activity/Vol] 41 U/L Normal 30-223 [facility] Comment on above: Performed By: #### B PROOF MACHINE OPERATOR, CBC, PT, CMP, CK, HS TROP, MG, PTT ####[place] [id number] [facility] ECG 12 lead ECGon 05-02-2025 ECG 12 lead ECG [facility] [address] [place] [address] Electrocardiograph Report Signed Patient: Ramon Mariee MR#: [id number] : 1945 Acct:[id number] Age/Sex: 79 / M ADM Date: 05/02/25 Loc: ER Room: Type: [facility] ER Attending Dr: Ordering Provider: Nnamdi Dozier DO Date of Service: 05/02/25 ECG/ECG 12 lead ECG: Syncope Copies to: Test Reason : Blood Pressure : 129/62 mmHG Vent. Rate : 76 BPM Atrial Rate : 76 BPM P-R Int : 370 ms QRS Dur : 144 ms QT Int : 398 ms P-R-T Axes : * -63 105 degrees QTcB Int : 447 ms Atrial-paced rhythm with prolonged AV conduction with occasional supraventricular complexes Confirmed by Nnamdi DOZIER DO ([id number]) on 05/02/2025 7:13:53 PM Referred By: Electronically Signed By: Nnamdi DOZIER DO Transcribed By: MUS Signed By Nnamdi Dozier DO 0 05/02/251912 Normal [facility] Glucose Poct Glucometerson 0 05-02-2025 Glucose [Mass/Vol] 172 mg/dL Normal [facility] Comment on above: Result Comment: [place] Glucose Reference Range is dependent on time and content of last meal. Glucose of more than 200 mg/dL in a nonstressed, ambulatory subject supports the diagnosis of Diabetes Mellitus. PERFORMED BY: [facility] [address] [place] [address] PATHOLOGIST JACQUARD LOOM WEAVER MARE CARLOS M.D. Performed By: #### G MONET #### Point of Care testing , Magnesiumon 05-02-2025 Magnesium [Mass/Vol] 2.1 mg/dL Normal 1.9-2.7 [facility] Comment on above: Result Comment: PERF ORMED BY: [address] [address] PATHOLOGIST JACQUARD LOOM WEAVER MARE CARLOS M.D. Performed By: #### B PROOF MACHINE OPERATOR, CBC, PT, CMP, CK, HS TROP, MG, PTT ####[facility] [id number] [place] [address] [place] Partial Thromboplastin Timeo n 05-02-2025 aPTT Coag (Bld) [Time] 27.9 s Normal 25.1-36.5 [facility] Comment on above: Result Comment: A he matocrit value greater than 55% may lead to inaccurate results in coagulation testing. Patients having hematocrit values >55% require a special collection tube for coagulation studies. Please contact the laboratory at [phone] for redraw instructions. PERFORMED BY: [facility] [address] [place] [address] PATHOLOGIST JACQUARD LOOM WEAVER MARE CARLOS M.D. Performed By: #### B PROOF MACHINE OPERATOR, CBC, PT, CMP, CK, HS TROP, MG, PTT ####[place] [id number] [place] [id number] [facility] Prothrombin Time INRon 05-02 INR Coag (PPP) [Relative time] 1.0 {INR} Normal [facility] Comment on above: Result Comment: [...] 3 - 4.5 Performed By: #### B PROOF MACHINE OPERATOR, CBC, PT, CMP, CK, HS TROP, MG, PTT ####[place] [id number] [place] [address] [facility] PT Coag (PPP) [Time] 11.2 s Normal 9.0-12.9 [facility] Comment on above: Result Comment: A he matocrit value greater than 55% may lead to inaccurate results in coagulation testing. Patients having hematocrit values >55% require a special collection tube for coagulation studies. Please contact the laboratory at [phone] for redraw instructions. Performed By: #### B PROOF MACHINE OPERATOR, CBC, PT, CMP, CK, HS TROP, MG, PTT ####[place] [id number] [place] [id number] [facility] Troponin I High Sensitivityo n 05-02-2025 Troponin I High Sensitivity 9 Normal 0-20 [facility] Comment on above: Result Comment: The Troponin units of report have been changed to meet the Chest Pain Accreditation requirement, element EC5.M1l2. Troponin units are changed from pg/ml to ng/L. Also, the decimal is removed and results are in whole numbers. PERFORMED BY: [place] [address] PATHOLOGIST JACQUARD LOOM WEAVER MARE CARLOS M.D. Performed By: #### H S TROP #### [address] Troponin I High Sensitivity 9 Normal 0-20 [facility] Comment on above: Result Comment: The Troponin units of report have been changed to meet the Chest Pain Accreditation requirement, element EC5.M1l2. Troponin units are changed from pg/ml to ng/L. Also, the decimal is removed and results are in whole numbers. PERFORMED BY: [place] [address] PATHOLOGIST JACQUARD LOOM WEAVER MARE CARLOS M.D. Performed By: #### B PROOF MACHINE OPERATOR, CBC, PT, CMP, CK, HS TROP, MG, PTT ####[address] Urinalysison 05-02-2025 Appearance (U) Clear Normal Clear [facility] Comment on above: Order Comment: Name Collection Type:: Clean-Voided Midstream Performed By: #### U A #### [address] Bilirubin,Urine Negative Normal Negative [facility] Comment on above: Order Comment: Name Collection Type:: Clean-Voided Midstream Performed By: #### U A #### [address] Color (U) Yellow Normal Yellow [facility] Comment on above: Order Comment: Name Collection Type:: Clean-Voided Midstream Performed By: #### U A #### [address] Glucose Ql (U) >= Normal Normal [facility] Comment on above: Order Comment: Name Collection Type:: Clean-Voided Midstream Performed By: #### U A #### [address] Ketones Ql (U) Negative Normal Negative [facility] Comment on above: Order Comment: Name Collection Type:: Clean-Voided Midstream Performed By: #### U A #### [address] Leukocyte esterase Test strip Ql (U) Negative Normal Negative [facility] Comment on above: Order Comment: Name Collection Type:: Clean-Voided Midstream Performed By: #### U A #### [place] [address] [place] Nitrite,Urine Negative Normal Negative [facility] Comment on above: Order Comment: Name Collection Type:: Clean-Voided Midstream Performed By: #### U A #### [address] Occult Blood,Urine Negative Normal Negative [facility] Comment on above: Order Comment: Name Collection Type:: Clean-Voided Midstream Result Comment: PERF ORMED BY: [place] [address] PATHOLOGIST JACQUARD LOOM WEAVER MARE CARLOS M.D. Performed By: #### U A #### [address] pH (U) 7.0 [pH] Normal 5.0-9.0 [facility] Comment on above: Order Comment: Name Collection Type:: Clean-Voided Midstream Performed By: #### U A #### [place] [address] [place] Protein,Urine Negative Normal Negative [facility] Comment on above: Order Comment: Name Collection Type:: Clean-Voided Midstream Performed By: #### U A #### [place] [address] [place] Specificy [place],Urine 1.019 Normal 1.001-1.030 [facility] Comment on above: Order Comment: Name Collection Type:: Clean-Voided Midstream Performed By: #### U A #### [place] [address] [place] Urobilinogen,Urine Normal Normal Normal [facility] Comment on above: Order Comment: Name Collection Type:: Clean-Voided Midstream Performed By: #### U A #### [facility] [address] [place] [address] [facility] XR chest 2V*on 05-02-2025 XR chest 2V* [facility] [address] [place] [address] XRay Report Signed Patient: Ramon Mariee MR#: [id number] : 1945 Acct:[id number] Age/Sex: 79 / M ADM Date: 05/02/25 Loc: ER Room: Type: PRE ER Attending Dr: Copies to: Nnamdi Dozier DO Ordering Provider: Nnamdi Dozier DO Date of Service: 05/02/25 XR/XR chest 2V*: Syncope Chest 2 views CLINICAL HISTORY: Dizziness syncopal episode. COMPARISON: Chest 02/25/2024 FINDINGS: Pacemaker device in place. Heart is normal in size. Evidence of old granulomatous disease. No consolidation pneumothorax pleural effusion or free air. XR/XR chest 2V* IMPRESSION: NO ACUTE CARDIOPULMONARY ABNORMALITY. Impression dictated by: Carlos Chen Jr., D.OGlendy 05/02/2025 1:03 PM Dictation Location: [facility]--22 Transcribed By: [facility] 05/02/25 1303 Dictated By: Carlos Chen Jr, DO 05/02/25 1303 Signed By: 05/02/25 1303 Normal [facility] No Panel Informationon 04-06 Consent obtained: written (The rationale for Mohs as well as the risks, benefits, and alternatives. The risks of infection, scarring, bleeding, prolonged wound healing, incomplete removal, allergy to anesthesia or meds, nerve injury, and recurrence were addressed.) [place] Protocol: Procedure explained and questions answered to patient or proxy's satisfaction: Yes Test results available and properly labeled: Yes Pathology report reviewed: Yes Photo or diagram used for site identification: Yes Site/side marked: Yes Anticoagulation: Is the patient taking prescription anticoagulant and/or aspirin prescribed/recommende d by a physician? Yes (81 mg ASA) Was the anticoagulation regimen changed prior to Mohs? 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 No Mohs Appropriate Use Criteria Score: 8 Details of micrographic surgery: Mohs accession number: [id number] Micrographic Surgery Details: Post-operative length (cm): 3.1 Post-operative width (cm): 1.8 Number of Mohs stages: 1 Post surgery depth of defect: dermis Stage 1 Comments: The area was prepped with Betadine, draped in a sterile fashion, and infiltrated with local anesthetic. Sterile technique was used throughout the procedure. The marked area of clinical tumor with a small rim of clinically normal surrounding skin was removed using Mohs technique with beveled edges. Hash mar were placed for orientation of the specimen. Hemostasis was achieved with electrodessication. After hemostasis, the defect was measured and recorded, a temporary sterile dressing was placed over the wound, and the patient was escorted to the waiting area. The specimen was oriented, mapped, and if necessary, divided into sections. A Mohs map was prepared. The specimen was placed in a labeled paddy dish and was taken to the Mohs lab where it was chromacoded and processed. Mohs sections were prepared with serial tissue sections, stained, and evaluated by Dr. Cooley for interpretation of deep and peripheral margins. The Mohs map was marked accordingly. Amount of lidocaine used: 4.0 cc Estimated blood loss: <1.0 mL Defect size: 3.1 x 1.8 cm Number of blocks per stage: 2 Number of positive blocks: 0. Tumor free margins were obtained and the Mohs procedure was considered complete. Tumor features identified on Mohs section: no tumor identified Depth of tumor invasion after stage: dermis Patient tolerance of procedure: tolerated well, no immediate complications Reconstruction: Was the defect reconstructed?: No Antibiotics: Were antibiotics given on the day of surgery?: No [facility] Consultation/Specialist Note on 03-24-2025 Consultation/Specialist Note [id number]# 1.00[facility] Outside Recordson 03-24-2025 Outside Records [id number]# 1.00[facility] No Panel Informationon 02-01 Type of biopsy: [...] taken Amount of lidocaine used: 1.0 cc [facility] Arterial blood standard base excess determination by calculationOrdered By: Sunny Vasquez on 01-03-2025 Base excess standard Calc (BldA) [Moles/Vol] Arterial blood standard base excess determination by calculation Low -2-3 [facility] Basic Metabolic Panelon 12-12 Anion gap [Moles/Vol] 12.3 mmol/L Normal 6.0-15.0 [facility] Comment on above: Performed By: #### B Kimber PENG ####[facility] [place] [address] [facility] Calcium [Mass/Vol] 8.9 mg/dL Normal 8.6-10.3 [facility] Comment on above: Performed By: #### B DANISH K ####[facility] [id number] Chloride [Moles/Vol] 110 mmol/L High 98-107 [facility] Comment on above: Performed By: #### Rao PENG, K ####[address] CO2 [Moles/Vol] 22.6 mmol/L Normal 21.0-31.0 [facility] Comment on above: Performed By: #### Rao PENG, K ####[address] Creatinine [Mass/Vol] 1.66 mg/dL High 0.70-1.30 [facility] Comment on above: Performed By: #### Rao PENG, K ####[address] Creatinine Clr Calc Pharmacy 37.41 Normal [facility] Comment on above: Result Comment: PERF ORMED BY: [facility] [address] [facility] [place] [address] PATHOLOGIST JACQUARD LOOM WEAVER GEOFFREY VARGAS M.D. Performed By: #### Rao PENG, K ####[address] Estimated GFR 41.675 mL/Min Normal [facility] Comment on above: Performed By: #### Rao PENG, K ####[address] Glucose [Mass/Vol] 183 mg/dL High 70-100 [facility] Comment on above: Result Comment: [place] Glucose Reference Range is dependent on time and content of last meal. Glucose of more than 200 mg/dL in a nonstressed, ambulatory subject supports the diagnosis of Diabetes Mellitus. ADA recommended reference range Performed By: #### Rao PENG, K ####[address] Sodium [Moles/Vol] 139 mmol/L Normal 136-145 [facility] Comment on above: Performed By: #### Rao PENG, K ####[address] Urea nitrogen [Mass/Vol] 54 mg/dL High 7-25 [facility] Comment on above: Performed By: #### B MP, K ####[facility] [id number] Blood carbon dioxide, total measurement by calculation (moles/volume)Ordered By: Sunny Vasquez on 01-03-2025 CO2 Calc (Bld) [Moles/Vol] Blood carbon dioxide, total measurement by calculation (moles/volume) 23-29 [facility] Calcium [Mass/volume] in Ser um or PlasmaOrdered By: LILI VALADEZ on 01-03-2025 Calcium [Mass/Vol] Calcium [Mass/volume ] in Serum or Plasma 8.6-10.3 [facility] Carbon dioxide WBOrdered By: Sunny Vasquez on 01-03-2025 Basophil percentage Basophil percentage Low 80-105 [facility] Carbon dioxide, total [Moles /volume] in Serum or PlasmaOrdered By: LILI VALADEZ on 01-03-2025 CO2 [Moles/Vol] Carbon dioxide, tota l [Moles/volume] in Serum or Plasma 21.0-31.0 [facility] Chloride [Moles/volume] in S re[place] or PlasmaOrdered By: LILI VALADEZ on 01-03-2025 Chloride [Moles/Vol] Chloride [Moles/volume] in Serum or Plasma High 98-107 [facility] Creatinine [Mass/volume] in Serum or PlasmaOrdered By: LILI VALADEZ on 01-03-2025 Creatinine [Mass/Vol] Creatinine [Mass/volume] in Serum or Plasma High 0.70-1.30 [facility] ECG 12 lead ECGon 01-03-2025 ECG 12 lead ECG [facility] [address] [place] [address] Electrocardiograph Report Signed Patient: Ramon Mariee MR#: [id number] : 1945 Acct:[id number] Age/Sex: 79 / M ADM Date: 01/03/25 Loc: [place] Room: Type: [facility] Attending Dr: [...] change was found Confirmed by ROMAINE WU [facility], DARLENE ([id number]) on 01/03/2025 11:53:16 AM Referred By: Electronically Signed By: DARLENE GAVIN MD [facility] Transcribed By: MUS Signed By Darlene Gavin MD, [facility] 01/03/25 1153 Normal [facility] Glucose Glucometer (BldC) [M ass/Vol]Ordered By: Sunny Vasquez on 01-03-2025 Glucose [Mass/Vol] Capillary blood glucose measurement by glucometer (mass/volume) High 70-105 [facility] Glucose [Mass/Vol] Capillary blood glucose measurement by glucometer (mass/volume) [facility] Comment on above: Random Glucose Refer ence Range is dependent on time and content of last meal. Glucose of more than 200 mg/dL in a nonstressed, ambulatory subject supports the diagnosis of Diabetes Mellitus. Glucose Poct Glucometerson 0 01-03-2025 Commemt1 Glu2: Cleaned Meter Normal [facility] Comment on above: Result Comment: PERF ORMED BY: [facility] [address] [facility] [place] [address] PATHOLOGIST JACQUARD LOOM WEAVER GEOFFREY VARGAS M.D. Performed By: #### G LULS #### Point of Care testing , Glucose [Mass/Vol] 178 mg/dL Normal [facility] Comment on above: Result Comment: [place] Glucose Reference Range is dependent on time and content of last meal. Glucose of more than 200 mg/dL in a nonstressed, ambulatory subject supports the diagnosis of Diabetes Mellitus. Performed By: #### G LULS #### Point of Care testing , Glucose [Mass/volume] in Ser um or PlasmaOrdered By: LILI VALADEZ on 01-03-2025 Glucose [Mass/Vol] Glucose [Mass/volume ] in Serum or Plasma High 70-100 [facility] Comment on above: ADA recommended refe rence rangeRandom Glucose Reference Range is dependent on time and content of last meal. Glucose of more than 200 mg/dL in a nonstressed, ambulatory subject supports the diagnosis of Diabetes Mellitus. Hemoglobin Calc (Bld) [Mass/ Vol]Ordered By: Sunny Vasquez on 01-03-2025 Hemoglobin (Bld) [Mass/Vol] Blood hemoglobin measurement by calculation (mass/volume) Low 12.0-17.0 [facility] ISTAT ABGon 01-03-2025 CO2 [Moles/Vol] 23 mmol/L Normal 23-29 [facility] Comment on above: Performed By: #### I SABG ####[address] Glucose [Mass/Vol] 174 mg/dL High 70-105 [facility] Comment on above: Result Comment: PERF ORMED BY: [facility] [address] [place] [address] PATHOLOGIST JACQUARD LOOM WEAVER GEOFFREY VARGAS M.D. Performed By: #### I SABG ####[address] HCO3 (Bld) [Moles/Vol] 22.2 mmol/L Normal 22.0-28.0 [facility] Comment on above: Performed By: #### I SABG ####[place] [id number] [facility] Hemoglobin (Bld) [Mass/Vol] 11.6 g/dL Low 12.0-17.0 [facility] Comment on above: Performed By: #### I SABG ####[address] ISTAT Base Excess -3 mmol/L Low -2 TO 3 [facility] Comment on above: Performed By: #### I SABG ####[address] ISTAT Ionized Calcium 1.24 mol/L Normal 1.12-1.32 [facility] Comment on above: Performed By: #### I SABG ####[place] [id number] [facility] ISTAT PCO2 38.9 mm[Hg] Normal 35-51 [facility] Comment on above: Performed By: #### I SABG ####[place] [id number] [facility] ISTAT Ph 7.364 Normal 7.31-7.45 [facility] Comment on above: Performed By: #### I SABG ####[place] [id number] [facility] ISTAT PO2 49 mm[Hg] Low 80-105 [facility] Comment on above: Performed By: #### I SABG ####[place] [id number] [facility] Oxygen saturation in Blood 83 % Low 95-98 [facility] Comment on above: Result Comment: Refe rence ranges reflect baseline specimens only Performed By: #### I SABG ####[place] [id number] [facility] Potassium [Moles/Vol] 6.2 mmol/L Off scale high 3.5-4.9 [facility] Comment on above: Performed By: #### I SABG ####[place] [id number] [facility] Sodium [Moles/Vol] 139 mmol/L Normal 138-146 [facility] Comment on above: Performed By: #### I SABG ####[address] [address] [facility] ISTAT ABGOrdered By: Yaneth Vasquez on 01-03-2025 Hematocrit (Bld) [Volume fraction] 34.0 % Low 38.0-51.0 [facility] Comment on above: Performed By: #### I SABG ####[place] [id number] [facility] No Panel InformationOrdered By: LILI VALADEZ on 01-03-2025 Estimated GFR (CKD-EPI) 41.675 mL/Min [facility] Pharmacy Creatinine Clearance (Chem 37.41 [facility] No Panel InformationOrdered By: Sunny Vasquez on 01-03-2025 Bedside Glucose Comment Glu2: cleaned meter [facility] Potassiumon 01-03-2025 Potassium [Moles/Vol] 5.9 mmol/L High 3.5-5.1 [facility] Comment on above: Result Comment: PERF ORMED BY: [facility] [address] [place] [id number] PATHOLOGIST JACQUARD LOOM WEAVER GEOFFREY VARGAS M.D. Performed By: #### B Kimber PENG ####[facility] [place] [id number] [facility] Potassium (Bld) [Moles/Vol]O rdered By: Sunny Vasquez on 01-03-2025 Potassium [Moles/Vol] Whole blood potass ium measurement Critically high 3.5-4.9 [facility] Potassium [Moles/volume] in Serum or PlasmaOrdered By: LILI VALADEZ on 01-03-2025 Potassium [Moles/Vol] Potassium [Moles/volume] in Serum or Plasma High 3.5-5.1 [facility] Serum or plasma anion gap de terminationOrdered By: LILI VALADEZ on 01-03-2025 Anion gap [Moles/Vol] Serum or plasma an ion gap determination 6.0-15.0 [facility] Sodium (Bld) [Moles/Vol]Orde red By: Sunny Vasquez on 01-03-2025 Sodium [Moles/Vol] Whole blood sodium measurement 138-146 [facility] Sodium [Moles/volume] in Ser um or PlasmaOrdered By: LILI VALADEZ on 01-03-2025 Sodium [Moles/Vol] Sodium [Moles/volume ] in Serum or Plasma 136-145 [facility] Urea nitrogen [Mass/volume] in Serum or PlasmaOrdered By: LILI VALADEZ on 01-03-2025 Urea nitrogen [Mass/Vol] Urea nitrogen [Mass/volume] in Serum or Plasma High 7-25 [facility] Whole blood bicarbonate jerardo urementOrdered By: Sunny Vasquez on 01-03-2025 HCO3 (Bld) [Moles/Vol] Whole blood bicarbonate measurement 22.0-28.0 [facility] Whole blood ionized calcium measurement (moles/volume)Ordered By: Sunny Vasquez on 01-03-2025 Calcium.ionized (Bld) [Moles/Vol] Whole blood ionized calcium measurement (moles/volume) 1.12-1.32 [facility] Whole blood oxygen saturatio n measurementOrdered By: Sunny Vasquez on 01-03-2025 Oxygen saturation in Blood Whole blood oxygen saturation measurement Low 95-98 [facility] Comment on above: Reference ranges ref lect baseline specimens only Whole blood pHOrdered By: Gustavo Vasquez on 01-03-2025 pH (Bld) Whole blood pH 7.31-7.45 [facility] Basic Metabolic Panelon 12-11 Anion gap [Moles/Vol] 9.9 mmol/L Normal 6.0-15.0 [facility] Comment on above: Performed By: #### B MP, CBC #### [address] Calcium [Mass/Vol] 8.9 mg/dL Normal 8.6-10.3 [facility] Comment on above: Result Comment: PERF ORMED BY: [place] [address] PATHOLOGIST JACQUARD LOOM WEAVER GEOFFREY VARGAS M.D. Performed By: #### B MP, CBC #### [address] Chloride [Moles/Vol] 107 mmol/L Normal 98-107 [facility] Comment on above: Performed By: #### B MP, CBC #### [facility] [address] [place] [address] [place] CO2 [Moles/Vol] 26.4 mmol/L Normal 21.0-31.0 [facility] Comment on above: Performed By: #### B MP, CBC #### [facility] [address] [place] [address] [place] Creatinine [Mass/Vol] 1.39 mg/dL High 0.70-1.30 [facility] Comment on above: Performed By: #### B MP, CBC #### [address] Estimated GFR 51.568 mL/Min Normal [facility] Comment on above: Performed By: #### B MP, CBC #### [address] Glucose [Mass/Vol] 214 mg/dL High 70-100 [facility] Comment on above: Result Comment: [facility] Glucose Reference Range is dependent on time and content of last meal. Glucose of more than 200 mg/dL in a nonstressed, ambulatory subject supports the diagnosis of Diabetes Mellitus. ADA recommended reference range Performed By: #### B MP, CBC #### [address] Potassium [Moles/Vol] 5.3 mmol/L High 3.5-5.1 [facility] Comment on above: Performed By: #### B MP, CBC #### [address] Sodium [Moles/Vol] 138 mmol/L Normal 136-145 [facility] Comment on above: Performed By: #### B MP, CBC #### [address] Urea nitrogen [Mass/Vol] 49 mg/dL High 7-25 [facility] Comment on above: Performed By: #### B MP, CBC #### [place] [address] [place] Basophils Auto (Bld) [#/Vol] Ordered By: Sunny Vasquez on 12-20-2024 Basophils (Bld) [#/Vol] Automated basoph il count 0.0-0.2 [facility] Basophils/100 WBC Auto (Bld) Ordered By: Sunny Vasquez on 12-20-2024 Basophils/100 WBC (Bld) Automated basophil % . [facility] Calcium [Mass/volume] in Ser um or PlasmaOrdered By: Sunny Vasquez on 12-20-2024 Calcium [Mass/Vol] Calcium [Mass/volume ] in Serum or Plasma 8.6-10.3 [facility] Carbon dioxide, total [Moles /volume] in Serum or PlasmaOrdered By: Sunny Vasquez on 12-20-2024 CO2 [Moles/Vol] Carbon dioxide, tota l [Moles/volume] in Serum or Plasma 21.0-31.0 [facility] Chloride [Moles/volume] in S [place] or PlasmaOrdered By: Sunny Vasquez on 12-20-2024 Chloride [Moles/Vol] Chloride [Moles/volume] in Serum or Plasma 98-107 [facility] Complete Blood Count Auto Di ffon 12-20-2024 Basophils (Bld) [#/Vol] 0.0 10*3/uL Normal 0.0-0.2 [facility] Comment on above: Result Comment: PERF ORMED BY: [place] [address] PATHOLOGIST JACQUARD LOOM WEAVER GEOFFREY VARGAS M.D. Performed By: #### B MP, CBC #### [address] Basophils/100 WBC (Bld) 0.4 % Normal . [facility] Comment on above: Performed By: #### B MP, CBC #### [address] Eosinophils (Bld) [#/Vol] 0.2 10*3/uL Normal 0.0-0.45 [facility] Comment on above: Performed By: #### B MP, CBC #### [address] Eosinophils/100 WBC (Bld) 2.9 % Normal . [facility] Comment on above: Performed By: #### B MP, CBC #### [address] Erythrocyte distribution width (RBC) [Ratio] 15.3 % High 12.0-14.8 [facility] Comment on above: Performed By: #### B MP, CBC #### [address] [place] [address] [place] Hematocrit (Bld) [Volume fraction] 36.2 % Low 38.8-50.0 [facility] Comment on above: Performed By: #### B MP, CBC #### [address] Hemoglobin (Bld) [Mass/Vol] 12.0 g/dL Low 13.0-17.0 [facility] Comment on above: Performed By: #### B MP, CBC #### [address] Lymphocytes (Bld) [#/Vol] 1.6 10*3/uL Normal 1.00-4.8 [facility] Comment on above: Performed By: #### B MP, CBC #### [address] Lymphocytes/100 WBC (Bld) 18.9 % Normal . [facility] Comment on above: Performed By: #### B MP, CBC #### [address] MCH (RBC) [Entitic mass] 29.6 pg Normal 27.5-35.2 [facility] Comment on above: Performed By: #### B MP, CBC #### [address] MCV (RBC) [Entitic vol] 89.1 fL Normal 83.5-101 [facility] Comment on above: Performed By: #### B MP, CBC #### [address] Mean Corpuscular HGB Conc 33.2 g/dL Normal 32.5-35.6 [facility] Comment on above: Performed By: #### B MP, CBC #### [address] Monocytes (Bld) [#/Vol] 0.5 10*3/uL Normal 0.0-0.8 [facility] Comment on above: Performed By: #### B MP, CBC #### [address] Monocytes/100 WBC (Bld) 6.1 % Normal . [facility] Comment on above: Performed By: #### B MP, CBC #### [address] Neutrophils (Bld) [#/Vol] 6.0 10*3/uL Normal 1.8-7.7 [facility] Comment on above: Performed By: #### B MP, CBC #### [address] Neutrophils/100 WBC (Bld) 71.7 % Normal . [facility] Comment on above: Performed By: #### B MP, CBC #### [address] NRBC% 0.0 /100{WBC} Normal 0-0.5 [facility] Comment on above: Performed By: #### B MP, CBC #### [address] Platelet mean volume (Bld) [Entitic vol] 8.7 fL Normal 6.6-10.1 [facility] Comment on above: Performed By: #### B MP, CBC #### [place] [address] [place] Platelets (Bld) [#/Vol] 211 10*3/uL Normal 150-450 [facility] Comment on above: Performed By: #### B MP, CBC #### [place] [address] [place] RBC (Bld) [#/Vol] 4.06 10*6/uL Normal 3.90-5.60 [facility] Comment on above: Performed By: #### B MP, CBC #### [place] [address] [place] WBC (Bld) [#/Vol] 8.4 10*3/uL Normal 4.1-10.5 [facility] Comment on above: Performed By: #### B MP, CBC #### [place] [id number] [facility] Creatinine [Mass/volume] in Serum or PlasmaOrdered By: uSnny Vasquez on 12-20-2024 Creatinine [Mass/Vol] Creatinine [Mass/volume] in Serum or Plasma High 0.70-1.30 [facility] ECG 12 lead ECGon 12-20-2024 ECG 12 lead ECG [facility] [address] [place] [address] Electrocardiograph Report Signed Patient: Ramon Mariee MR#: [id number] : 1945 Acct:[id number] Age/Sex: 79 / M ADM Date: 12/20/24 Loc: Room: Type: [facility] Attending Dr: Sunny Vasquez DO Ordering [...] block Abnormal ECG Confirmed by Tom Conde ([id number]) on 12/20/2024 4:19:47 PM Referred By: Electronically Signed By: Tom Conde Transcribed By: MUS Signed By Tom Conde MD 12/20/24 1619 Normal [facility] Eosinophils Auto (Bld) [#/Vo l]Ordered By: Sunny Vasquez on 12-20-2024 Eosinophils (Bld) [#/Vol] Automated eosinophil count 0.0-0.45 [facility] Eosinophils/100 WBC Auto (Bl d)Ordered By: Sunny Vasquez on 12-20-2024 Eosinophils/100 WBC (Bld) Automated eosinophil % . [facility] Erythrocyte distribution wid th Auto (RBC) [Ratio]Ordered By: Sunny Vasquez on 12-20-2024 Erythrocyte distribution width (RBC) [Ratio] Erythrocyte distribution width [Ratio] by Automated count High 12.0-14.8 [facility] Glucose [Mass/volume] in Ser um or PlasmaOrdered By: Sunny Vasquez on 12-20-2024 Glucose [Mass/Vol] Glucose [Mass/volume ] in Serum or Plasma High 70-100 [facility] Comment on above: ADA recommended refe rence rangeRandom Glucose Reference Range is dependent on time and content of last meal. Glucose of more than 200 mg/dL in a nonstressed, ambulatory subject supports the diagnosis of Diabetes Mellitus. Hematocrit Auto (Bld) [Volum e fraction]Ordered By: Sunny Vasquez on 12-20-2024 Hematocrit (Bld) [Volume fraction] Hematocrit [Volume Fraction] of Blood by Automated count Low 38.8-50.0 [facility] Hemoglobin [Mass/volume] in BloodOrdered By: Sunny Vasquez on 12-20-2024 Hemoglobin (Bld) [Mass/Vol] Hemoglobin [Mass/volume] in Blood Low 13.0-17.0 [facility] Leukocytes [#/volume] correc phil for nucleated erythrocytes in Blood by Automated counOrdered By: Sunny Vasquez on 12-20-2024 WBC corrected for nucl RBC Auto (Bld) [#/Vol] Leukocytes [#/volume] corrected for nucleated erythrocytes in Blood by Automated coun 4.1-10.5 [facility] Lymphocytes Auto (Bld) [#/Vo l]Ordered By: Sunny Vasquez on 12-20-2024 Lymphocytes (Bld) [#/Vol] Lymphocytes [#/volume] in Blood by Automated count 1.00-4.8 [facility] Lymphocytes/100 WBC Auto (Bl d)Ordered By: Sunny Vasquez on 12-20-2024 Lymphocytes/100 WBC (Bld) Lymphocytes/100 leukocytes in Blood by Automated count . [facility] MCH Auto (RBC) [Entitic mass ]Ordered By: Sunny Vasquez on 12-20-2024 MCH (RBC) [Entitic mass] MCH [Entitic mass] by Automated count 27.5-35.2 [facility] MCHC Auto (RBC) [Mass/Vol]Or dered By: Sunny Vasquez on 12-20-2024 MCHC (RBC) [Mass/Vol] MCHC [Mass/volume] by Automated count 32.5-35.6 [facility] MCV Auto (RBC) [Entitic vol] Ordered By: Sunny Vasquez on 12-20-2024 MCV (RBC) [Entitic vol] MCV [Entitic vol ume] by Automated count 83.5-101 [facility] Monocytes Auto (Bld) [#/Vol] Ordered By: Sunny Vasquez on 12-20-2024 Monocytes (Bld) [#/Vol] Automated blood monocyte count 0.0-0.8 [facility] Monocytes/100 WBC Auto (Bld) Ordered By: Sunny Vasquez on 12-20-2024 Monocytes/100 WBC (Bld) Automated monocyte % . [facility] Neutrophils Auto (Bld) [#/Vo l]Ordered By: Sunny Vasquez on 12-20-2024 Neutrophils (Bld) [#/Vol] Neutrophils [#/volume] in Blood by Automated count 1.8-7.7 [facility] Neutrophils/100 WBC Auto (Bl d)Ordered By: Sunny Vasquez on 12-20-2024 Neutrophils/100 WBC (Bld) Automated neutrophil % . [facility] No Panel InformationOrdered By: Sunny Vasquez on 12-20-2024 Estimated GFR (CKD-EPI) 51.568 mL/Min [facility] Pharmacy Creatinine Clearance (Chem N/A [facility] Nucleated erythrocytes [Pres ence] in Blood by Automated countOrdered By: Sunny Vasquez on 12-20-2024 Nucleated RBC Auto Ql (Bld) Nucleated erythrocytes [Presence] in Blood by Automated count 0-0.5 [facility] Platelet mean volume Auto (B ld) [Entitic vol]Ordered By: Sunny Vasquez on 12-20-2024 Platelet mean volume (Bld) [Entitic vol] Platelet mean volume [Entitic volume] in Blood by Automated count 6.6-10.1 [facility] Platelets Auto (Bld) [#/Vol] Ordered By: Sunny Vasquez on 12-20-2024 Platelets (Bld) [#/Vol] Platelets [#/vol ume] in Blood by Automated count 150-450 [facility] Potassium [Moles/volume] in Serum or PlasmaOrdered By: Sunny Vasquez on 12-20-2024 Potassium [Moles/Vol] Potassium [Moles/volume] in Serum or Plasma High 3.5-5.1 [facility] RBC Auto (Bld) [#/Vol]Ordere d By: Sunny Vasquez on 12-20-2024 RBC (Bld) [#/Vol] Erythrocytes [#/volume] in Blood by Automated count 3.90-5.60 [facility] Serum or plasma anion gap de terminationOrdered By: Sunny Vasquez on 12-20-2024 Anion gap [Moles/Vol] Serum or plasma an ion gap determination 6.0-15.0 [facility] Sodium [Moles/volume] in Ser um or PlasmaOrdered By: Sunny Vasquez on 12-20-2024 Sodium [Moles/Vol] Sodium [Moles/volume ] in Serum or Plasma 136-145 [facility] Urea nitrogen [Mass/volume] in Serum or PlasmaOrdered By: Sunny Vasquez on 12-20-2024 Urea nitrogen [Mass/Vol] Urea nitrogen [Mass/volume] in Serum or Plasma High 7-25 [facility] WBC Auto (Bld) [#/Vol]Ordere d By: Sunny Vasquez on 12-20-2024 WBC (Bld) [#/Vol] Leukocytes [#/volume ] in Blood by Automated count 4.1-10.5 [facility] CT LUNG SCREENING LOW DOSEon 11-22-2024 CT [...] BY: Roe Garcia MD Normal Not Available [facility] echo transthoracicon [facility] echo transthoracic [facility] [address] [place] [address] Echocardiogram Signed Patient: Ramon Mariee MR#: [id number] : 1945 Acct:[id number] Age/Sex: 79 / M ADM Date: 10/04/24 Loc: Room: Type: [facility] Attending Dr: Tom Conde MD Ordering Provider: Tom Conde MD Date of Service: 10/04/24 [facility] echo transthoracic: R06.02 - Shortness of breath Copies to: MD Darlene Baca MD, [facility] Weight: 190 lb Performed By: BRENDA Batista BSA: 2.0 m2 BP: 152/73 mmHg HR: 54 Reason For Study: R06.02 - Shortness of breath History: SC, DM, former smoker, pacemaker, family history of [...] SHON(V,D): 1.9 cm2 Measurements from QLAB CI (): ED Mass (): LAEF (): 60.0 % BSA (): 2.0 m2 213.0 grams 3.2 l/min/m2 __ MAGALIS (): LAVmax (): LAVmin (): 35.0 mlPat Height (HM): 45.0 ml/m2 88.0 ml 170.0 cm __ Pat Weight (): 86.2 kg QLAB Heart Model EDV (HM)_phl: 194.0 ml EF (HM)_phl: 53.0 % ED Current (HM)_phl: 60.0 % ESV (HM)_phl: 91.0 ml HR (HM)_phl: 61.0 BPMES Current (HM)_phl: 30.0 % LV Length ED (HM)_phl: 98.0 mmSV (HM)_phl: 103.0 mlED Default (HM)_phl: 60.0 % LV Length ES (HM (more content not included)... Normal [facility] Complete Blood Count Auto Di ffon 09-16-2024 Basophils (Bld) [#/Vol] 0.1 10*3/uL Normal 0.0-0.2 [facility] Comment on above: Result Comment: PERF ORMED BY: [place] [address] PATHOLOGIST JACQUARD LOOM WEAVER GEOFFREY VARGAS M.D. Performed By: #### C BC #### [address] Basophils/100 WBC (Bld) 0.7 % Normal . [facility] Comment on above: Performed By: #### C BC #### [address] Eosinophils (Bld) [#/Vol] 0.3 10*3/uL Normal 0.0-0.45 [facility] Comment on above: Performed By: #### C BC #### [address] Eosinophils/100 WBC (Bld) 3.7 % Normal . [facility] Comment on above: Performed By: #### C BC #### [address] Erythrocyte distribution width (RBC) [Ratio] 14.3 % Normal 12.0-14.8 [facility] Comment on above: Performed By: #### C BC #### [address] Hematocrit (Bld) [Volume fraction] 36.8 % Low 38.8-50.0 [facility] Comment on above: Performed By: #### C BC #### [address] Hemoglobin (Bld) [Mass/Vol] 12.1 g/dL Low 13.0-17.0 [facility] [facility] Comment on above: Performed By: #### C BC #### [address] Lymphocytes (Bld) [#/Vol] 2.5 10*3/uL Normal 1.00-4.8 [facility] Comment on above: Performed By: #### C BC #### [address] Lymphocytes/100 WBC (Bld) 26.8 % Normal . [facility] Comment on above: Performed By: #### C BC #### [address] MCH (RBC) [Entitic mass] 29.1 pg Normal 27.5-35.2 [facility] Comment on above: Performed By: #### C BC #### [address] MCV (RBC) [Entitic vol] 88.7 fL Normal 83.5-101 [facility] Comment on above: Performed By: #### C BC #### [address] Mean Corpuscular HGB Conc 32.9 g/dL Normal 32.5-35.6 [facility] Comment on above: Performed By: #### C BC #### [address] Monocytes (Bld) [#/Vol] 0.8 10*3/uL Normal 0.0-0.8 [facility] Comment on above: Performed By: #### C BC #### [address] Monocytes/100 WBC (Bld) 8.2 % Normal . [facility] Comment on above: Performed By: #### C BC #### [address] Neutrophils (Bld) [#/Vol] 5.7 10*3/uL Normal 1.8-7.7 [facility] Comment on above: Performed By: #### C BC #### [address] Neutrophils/100 WBC (Bld) 60.6 % Normal . [facility] Comment on above: Performed By: #### C BC #### [address] NRBC% 0.0 /100{WBC} Normal 0-0.5 [facility] Comment on above: Performed By: #### C BC #### [address] Platelet mean volume (Bld) [Entitic vol] 8.1 fL Normal 6.6-10.1 [facility] Comment on above: Performed By: #### C BC #### [address] Platelets (Bld) [#/Vol] 248 10*3/uL Normal 150-450 [facility] Comment on above: Performed By: #### C BC #### [address] RBC (Bld) [#/Vol] 4.15 10*6/uL Normal 3.90-5.60 [facility] Comment on above: Performed By: #### C BC #### [address] WBC (Bld) [#/Vol] 9.4 10*3/uL Normal 4.1-10.5 [facility] Comment on above: Performed By: #### C BC #### [address] CBC W Auto Differential pane l (Bld)on 06-16-2024 Basophils (Bld) [#/Vol] 0.1 10*3/uL [facility] Basophils/100 WBC (Bld) 1 % Not Estab. N [facility] Eosinophils (Bld) [#/Vol] 0.5 10*3/uL High [facility] Eosinophils/100 WBC (Bld) 5 % Not Estab. [facility] Erythrocyte distribution width (RBC) [Ratio] 13.0 % 11.6 - 15.4 % [facility] Hematocrit (Bld) [Volume fraction] 36.2 % Low 37.5 - 51.0 % [facility] Hemoglobin (Bld) [Mass/Vol] 11.2 g/dL Low 13.0 - 17.7 g/dL [facility] Immature granulocytes (Bld) [#/Vol] 0.1 10*3/uL [facility] Immature granulocytes/100 WBC (Bld) 1 % Not Estab. [facility] Lymphocytes (Bld) [#/Vol] 3.0 10*3/uL [facility] Lymphocytes/100 WBC (Bld) 30 % Not Estab. [facility] MCH (RBC) [Entitic mass] 29.3 pg 26.6 - 33.0 pg [facility] MCHC (RBC) [Mass/Vol] 30.9 g/dL Low 31.5 - 35.7 g/dL [facility] MCV (RBC) [Entitic vol] 95 fL 79 - 97 fL N [facility] Monocytes (Bld) [#/Vol] 0.7 10*3/uL [facility] Monocytes/100 WBC (Bld) 7 % Not Estab. N [facility] Neutrophils (Bld) [#/Vol] 5.6 10*3/uL [facility] Neutrophils/100 WBC (Bld) 56 % Not Estab. [facility] Platelets (Bld) [#/Vol] 302 10*3/uL [facility] RBC (Bld) [#/Vol] 3.82 10*6/uL Low [facility] WBC (Bld) [#/Vol] 9.9 10*3/uL [facility] Comprehensive metabolic pane lars 06-16-2024 Albumin [Mass/Vol] 3.9 g/dL 3.8 - 4.8 g/dL [facility] ALP [Catalytic activity/Vol] 172 U/L High [facility] ALT [Catalytic activity/Vol] U/L [facility] Comment on above: Verified by repeat analysis AST [Catalytic activity/Vol] 14 U/L [facility] Bilirubin [Mass/Vol] 0.2 mg/dL 0.0 - 1 .2 mg/dL [facility] Calcium [Mass/Vol] 9.5 mg/dL 8.6 - 10. 2 mg/dL [facility] Chloride [Moles/Vol] 102 mmol/L 96 - 10 6 mmol/L [facility] CO2 [Moles/Vol] 22 mmol/L 20 - 29 mmol/L [facility] Creatinine [Mass/Vol] 1.63 mg/dL High 0.76 - 1.27 mg/dL [facility] GFR/1.73 sq M.predicted among non-blacks MDRD (S/P/Bld) [Vol rate/Area] 43 mL/min/{1.73_m2} Low 59 - PINF mL/min/1.73 [facility] Globulin (S) [Mass/Vol] 2.8 g/dL 1.5 - 4.5 g/dL [facility] Glucose [Mass/Vol] 165 mg/dL High 70 - 99 mg/dL [facility] Potassium [Moles/Vol] 5.5 mmol/L High 3.5 - 5.2 mmol/L [facility] Protein [Mass/Vol] 6.7 g/dL 6.0 - 8.5 g/dL [facility] Sodium [Moles/Vol] 137 mmol/L 134 - 144 mmol/L [facility] Urea nitrogen [Mass/Vol] 43 mg/dL High 8 - 27 mg/dL [facility] Urea nitrogen/Creatinine [Mass ratio] 26 mg/mg High 10 - 24 [facility] Hemoglobin A1con 06-16-2024 HbA1c (Bld) [Mass fraction] 7.6 % High 4.8 - 5.6 % [facility] Comment on above: Prediabetes: 5.7 - 6 .4 Diabetes: >6.4 Glycemic control for adults with diabetes: <7.0 Lipid 1996 panelon Cholesterol [Mass/Vol] 132 mg/dL 100 - 199 mg/dL [facility] Cholesterol in HDL [Mass/Vol] 43 mg/dL 39 - PINF mg/dL [facility] Cholesterol in LDL [Mass/Vol] 63 mg/dL 0 - 99 mg/dL [facility] Cholesterol in VLDL [Mass/Vol] 26 mg/dL 5 - 40 mg/dL [facility] Triglyceride [Mass/Vol] 149 mg/dL 0 - 149 mg/dL [facility] Microalbumin/Creatinine rati o panel (U)on 06-16-2024 Albumin DL <= 20 mg/L (U) [Mass/Vol] 17.0 ug/mL Not Estab. [facility] Albumin/Creatinine (U) [Mass ratio] 18 [facility] Comment on above: Normal: 0 - 29 Moderately increased: 30 - 300 Severely increased: >300 Creatinine (U) [Mass/Vol] 93.3 mg/dL Not Estab. [facility] No Panel Informationon 06-16 Interpretation and review of laboratory results Abnormal [facility] Performed at: [address] [place] [id number] Heel Splitter: Nahun Pickering PhD, Phone: [phone] [facility] Specimen Status Reporton Clindamycin Disk diffusion (KB) [[facility]] Comment [facility] Comment on above: Jennifer Veras LP Defa ult Jennifer eVras LP Default A hand-written panel/profile was received from your office. In accordance with the [facility] Ambiguous Test Code Policy dated April 2003, we have completed your order by using the closest currently or formerly recognized AMA panel. We have assigned Lipid Panel, Test Code #[id number] to this request. If this is not the testing you wished to receive on this specimen, please contact the [employer] Client Inquiry/Technical Services Department to clarify the test order. We appreciate your business. [facility] ECG *CARDIOLOGY ONLY*on 06-15-2024 [facility] ECG *CARDIOLOGY ONLY* [facility] Main [place] [address] [place] [address] Electrocardiograph Report Signed Patient: Ramon Mariee MR#: [id number] : 1945 Acct:[id number] Age/Sex: 78 / M ADM Date: 06/15/24 Loc: [facility] Room: Type: [facility] Attending Dr: Tom Conde MD Ordering Provider: [...] in Inferior leads Confirmed by Tom Conde ([id number]) on 06/16/2024 3:02:16 PM Referred By: Electronically Signed By: Tom Conde Transcribed By: MUS Signed By Tom Conde MD 06/16/24 1502 Normal [facility] US ankle/arm indiceson 06-01 US ankle/arm indices [facility] [address] [place] [address] Ultrasound Report Signed Patient: Ramon Mariee MR#: [id number] : 1945 Acct:[id number] Age/Sex: 78 / M ADM Date: 06/01/24 Loc: [facility] Room: Type: [facility] Attending Dr: Coleman Gale MD Ordering Provider: Coleman Gale MD Date of Service: 06/01/24 US/US ankle/arm indices: I70.213 - Atherosclerosis of [place] arteries [facility]... Copies to: Coleman Gale MD LOWER EXTREMITY [...] Coleman Gale M.D.06/01/2024 2:27 PM Dictation Location: [place] [address] Tech: Maryan Desaiesteban Transcribed By: KEVEN 06/01/24 1427 Dictated By: Coleman Gale MD 06/01/24 1425 Signed By: 06/01/24 1427 Normal [facility] Glucose Glucometer (BldC) [M ass/Vol]Ordered By: Manda Lockwood on 02-09-2024 Glucose [Mass/Vol] 165 mg/dL [facility] Comment on above: Random Glucose Refer ence Range is dependent on time and content of last meal. Glucose of more than 200 mg/dL in a nonstressed, ambulatory subject supports the diagnosis of Diabetes Mellitus. No Panel InformationOrdered By: Manda Lockwood on 02-09-2024 Bedside Glucose Comment Glu2: cleaned meter [facility] POINT OF CARE GLUCOSEon 05-1 Glucose [Mass/Vol] 223 mg/dL Critically high 74-106 [facility] Comment on above: Performed By: #### P OCGLUC #### [facility] [address] [address] [address] Radha Camarena POINT OF CARE GLUCOSEon 12-2 Glucose [Mass/Vol] 95 mg/dL Normal 74-106 [facility] Comment on above: Performed By: #### P OCGLUC #### [facility] [address] [place], [place] [address] Dr. Radha Camarena XR Chest 2 Views*on [...] by Roe Garcia on 09/02/2022 1057 Normal [facility] Specialist HEMOGLOBIN A1Con 05-28-2022 Glucose [Mass/Vol] 160 mg/dL Normal [facility] Comment on above: Order Comment: PATIE NT FASTING Performed By: #### H BA1E #### [facility] [address] [place] [address] HbA1c (Bld) [Mass fraction] 7.2 % Abnormal [facility] Comment on above: Order Comment: PATIE NT FASTING Result Comment: Diag nosis of Diabetes-Adults Non-Diabetic: < or = 5.6% Increased risk for developing diabetes: 5.7-6.4% Diagnostic of diabetes: > or = 6.5% . Monitoring of Diabetes Age (y) Therapeutic Goal (%) Adults: >18 <7.0 Pediatrics: 13-18 <7.5 7-12 <8.0 0- 6 7.5-8.5 [employer] [employer]. Diabetes Care 33(S1), Oct 2009. Performed By: #### H BA1E #### [facility] [address] [place] [address] BASIC METABOLIC PANELon 08- Anion gap [Moles/Vol] 13 mmol/L Normal 10 - 20 [facility] Comment on above: Order Comment: PATIE NT FASTING Performed By: #### B MP #### [facility] [address] [place] [address] Calcium [Mass/Vol] 9.9 mg/dL Normal 8.6 - 10.6 [facility] Comment on above: Order Comment: PATIE NT FASTING Performed By: #### B MP #### [facility] [address] [place] [address] Chloride [Moles/Vol] 101 mmol/L Normal 98 - 107 [facility] Comment on above: Order Comment: PATIE NT FASTING Performed By: #### B MP #### [facility] [address] [place] [address] Creatinine [Mass/Vol] 1.21 mg/dL Normal 0.50 - 1.30 [facility] Comment on above: Order Comment: PATIE NT FASTING Performed By: #### B MP #### [facility] [address] [place] [address] GFR/1.73 sq M.predicted among non-blacks MDRD (S/P/Bld) [Vol rate/Area] 62 mL/min/{1.73_m2} Normal >90 [facility] Comment on above: Order Comment: PATIE NT FASTING Result Comment: CALC ULATIONS OF ESTIMATED GFR ARE PERFORMED USING THE 2020 CKD-EPI STUDY REFIT EQUATION WITHOUT THE RACE VARIABLE FOR THE IDMS-TRACEABLE CREATININE METHODS. https://jasn.asnjournals.org/content/early//ASN.2020 777815 Performed By: #### B MP #### [facility] [address] [place] [address] Glucose [Mass/Vol] 88 mg/dL Normal 74 - 99 [facility] Comment on above: Order Comment: PATIE NT FASTING Performed By: #### B MP #### [facility] [address] [place] [address] HCO3 (Bld) [Moles/Vol] 30 mmol/L Normal 21 - 32 [facility] Comment on above: Order Comment: PATIE NT FASTING Performed By: #### B MP #### [facility] [address] [place] [address] Potassium [Moles/Vol] 4.6 mmol/L Normal 3.5 - 5.3 [facility] Comment on above: Order Comment: PATIE NT FASTING Performed By: #### B MP #### [facility] [address] [place] [address] Sodium [Moles/Vol] 139 mmol/L Normal 136 - 145 [facility] Comment on above: Order Comment: PATIE NT FASTING Performed By: #### B MP #### [facility] [address] [place] [address] Urea nitrogen [Mass/Vol] 28 mg/dL High 6 - 23 [facility] Comment on above: Order Comment: PATIE NT FASTING Performed By: #### B MP #### [facility] [address] [place] [address] Blood Pressure Cuff Sizeon 0 05-27-2022 Fall risk assessment a) No falls within the last year [facility] Work Phone: Tobacco use status CPHS b) No M [facility] Work Phone: Blood Pressure Cuff Size Adult [facility] on Work Phone: Hemoglobin A1Con 05-27-2022 Glucose [Mass/Vol] 160 mg/dL [facility] Work Phone: HbA1c (Bld) [Mass fraction] 7.2 % Abnormal [facility] Work Phone: Comment on above: Diagnosis of Diabete s-Adults Non-Diabetic: < or = 5.6% Increased risk for developing diabetes: 5.7-6.4% Diagnostic of diabetes: > or = 6.5%. Monitoring of Diabetes Age (y) Therapeutic Goal (%) Adults: >18 <7.0 Pediatrics: 13-18 <7.5 7-12 <8.0 0- 6 7.5-8.5 [employer]. Diabetes Care 33(S1), Oct 2009. LIPID PANEL (CORONARY RISK 2 )on 05-27-2022 Cholesterol [Mass/Vol] 131 mg/dL Normal 0 - 199 [facility] Comment on above: Order Comment: RICHARD NT [...] dosing. Performed By: #### L IPID #### [facility] [address] [place] [address] Cholesterol in HDL [Mass/Vol] 37.8 mg/dL Abnormal [facility] Comment on above: Order Comment: PATIE NT FASTING Result Comment: . AGE VERY LOW LOW NORMAL HIGH 0-19 Y < 35 < 40 40-45 ---- 20-24 Y ---- < 40 >45 ---- >24 Y ---- < 40 40-60 >60 . Performed By: #### L IPID #### [facility] [address] [place] [address] Cholesterol in LDL [Mass/Vol] 59 mg/dL Normal 0 - 99 [facility] Comment on above: Order Comment: PATIE NT FASTING Result Comment: . NEAR BORD AGE DESIRABLE OPTIMAL HIGH HIGH VERY HIGH 0-19 Y 0 - 109 --- 110-129 >/= 130 ---- 20-24 Y 0 - 119 --- 120-159 >/= 160 ---- >24 Y 0 - 99 100-129 130-159 160-189 >/=190 . Performed By: #### L IPID #### [facility] [address] [place] [address] Cholesterol in VLDL [Mass/Vol] 34 mg/dL Normal 0 - 40 [facility] Comment on above: Order Comment: PATIE NT FASTING Performed By: #### L IPID #### [facility] [address] [place] [address] Cholesterol.total/Maryellen sterol in HDL [Mass ratio] 3.5 {ratio} Normal [facility] Comment on above: Order Comment: PATIE NT FASTING Result Comment: REF VALUES DESIRABLE < 3.4 HIGH RISK > 5.0 Performed By: #### L IPID #### [facility] [address] [place] [address] Triglyceride [Mass/Vol] 169 mg/dL High 0 - 149 [facility] Comment on above: Order Comment: PATIE NT [...] Performed By: #### L IPID #### [facility] [address] [place] [address] Laboratory - Chemistry and C hemistry - challengeon 05-27-2022 Anion gap [Moles/Vol] 13 mmol/L 10 - 20 [facility] Work Phone: [phone] Calcium [Mass/Vol] 9.9 mg/dL 8.6 - 10.6 [facility] Work Phone: [phone] Chloride [Moles/Vol] 101 mmol/L 98 - 107 [facility] Work Phone: [phone] CO2 [Moles/Vol] 30 mmol/L 21 - 32 [facility] Work Phone: [phone] Creatinine [Mass/Vol] 1.21 mg/dL See Below [facility] Work Phone: [phone] Comment on above: Reference Range: 0.5 0 - 1.30 Glucose [Mass/Vol] 88 mg/dL 74 - 99 [facility] Work Phone: [phone] Potassium [Moles/Vol] 4.6 mmol/L 3.5 - 5.3 [facility] Work Phone: [phone] Sodium [Moles/Vol] 139 mmol/L 136 - 145 [facility] Work Phone: [phone] Urea nitrogen [Mass/Vol] 28 mg/dL above high threshold 6 - [address] [facility] Work Phone: [phone] Lipid Panelon 05-27-2022 Cholesterol [Mass/Vol] 131 mg/dL 0 - 199 [facility] Work Phone: [phone] Comment on above: . AGE DESIRABLE [...] Cholesterol in HDL [Mass/Vol] 37.8 mg/dL Abnormal [facility] Work Phone: Comment on above: . AGE VERY LOW LOW N ORMAL HIGH 0-19 Y < 35 < 40 40-45 ---- 20-24 Y ---- < 40 >45 ---- >24 Y ---- < 40 40-60 >60. Cholesterol in LDL [Mass/Vol] 59 mg/dL 0 - [address] [facility] Work Phone: Comment on above: . NEAR BORD AGE ANNE RABLE OPTIMAL HIGH HIGH VERY HIGH 0-19 Y 0 - 109 --- 110-129 >/= 130 ---- 20-24 Y 0 - 119 --- 120-159 >/= 160 ---- >24 Y 0 - 99 100-129 130-159 160-189 >/=190. Cholesterol.total/Maryellen sterol in HDL [Mass ratio] 3.5 {ratio} [facility] Work Phone: Comment on above: REF VALUESDESIRABLE < 3.4HIGH RISK > 5.0 Triglyceride [Mass/Vol] 169 mg/dL above hi gh threshold 0 - [address] [facility] Work Phone: Comment on above: . [...] Lipid Panel 34 mg/dL 0 - [address] [facility] Work Phone: No Panel Informationon 05-27 62 {mL/min/1.73m2} >90 [facility] Work Phone: Comment on above: CALCULATIONS OF ARISTIDES MATED GFR ARE PERFORMED USING THE 2020 CKD-EPI STUDY REFIT EQUATION WITHOUT THE RACE VARIABLE FOR THE IDMS-TRACEABLE CREATININE METHODS.https://jasn.asnjournals.org/content// ASN.1608640189 Office Visit (Internal Medic ine)on 05-27-2022 Follow-up [...] mellitus; GAVIN = N; Verified Transmission to [facility]; Last Updated By: Pratima Callahan; 05/27/2022 10:05:07 AM Continue: FreeStyle InsuLinx System w/Device Kit; USE DIRECTED Rx By: Poli Mercado; Dispense: 0 Days ; #:1 Kit; Refill: 0;For: Diabetes mellitus; GAVIN = N; Verified Transmission to [facility] [id number]; Last Updated By: Pratima Callahan; 05/27/2022 10:05:07 AM Continue: FreeStyle InsuLinx Test In Vitro Strip; TEST ONCE DAILY *E11.9* Rx By: Poli Mercado; Dispense: 90 Days ; #:100 Strip; Refill: 3;For: Diabetes mellitus; GAVIN = N; Verified Transmission to [facility]; Last Updated By: Pratima Callahan; 05/27/2022 10:05:07 AM Continue: Glimepiride 1 MG Oral Tablet; TAKE 1 TABLET BY MOUTH EVERY DAY Rx By: Poli Mercado; Dispense: 90 Days ; #:90 Tablet; Refill: 2;For: Diabetes mellitus; GAVIN = N; Verified Transmission to [facility]; Last Updated By: Pratima Callahan; 05/27/2022 10:05:07 AM Continue: Lantus SoloStar 100 UNIT/ML Subcutaneous Solution Pen-injector; INJECT 20 UNITS SUBCUTANEOUSLY EVERY DAY OR AMOUNT DIRECTED Rx By: Poli Mercado; Dispense: 0 Days ; #:1 X 5 x 3 ML Pen; Refill: 1;For: Diabetes mellitus; GAVIN = N; Verified Transmission to [facility]; Last Updated By: Pratima Callahan; 05/27/2022 10:05:07 AM 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 Hemoglobin A1C; Status:In Progress - Specimen/Data Collected; Done: [id number] Perform:Lab Services - Lab To Draw (Blood [...] Hyperlipidemia; GAVIN = N; Verified Transmission to [facility]; Last Updated By: Pratima Callahan; 05/27/2022 10:05:07 AM Hypertension Start: Lisinopril 20 MG Oral Tablet; TAKE 1 TABLET DAILY Rx By: Poli Mercado; Dispense: 90 Days ; #:90 Tablet; Refill: 3;For: Hypertension; GAVIN = N; Verified Transmission to [facility]; Last Updated By: Alesha Claudio; 05/27/2022 10:28:27 AM Basic Metabolic Panel; Status:In Progress - Specimen/Data Collected; Done: [id number] Perform:Lab Services - Lab To Draw (Blood Test); Due:25Aug2022;Ordered ; For:Hypertension; Ordered By:Poli Mercado; Continue: amLODIPine Besylate 10 MG Oral Tablet; TAKE 1 TABLET BY MOUTH EVERY DAY Rx By: Poli Mercado; Dispense: 90 Days ; #:90 Tablet; Refill: 2;For: Hypertension; GAVIN = N; Verified Transmission to [facility]; Last Updated By: Pratima Callahan; 05/27/2022 10:05:07 AM Lipid Panel; Status:In Progress - Specimen/Data Collected; Done: [id number] Perform:Lab Services - Lab To Draw (Blood Test); Due:[id number];Ordered ; For:Hypertension; Ordered By:Poli Mercado; Continue: Clopidogrel Bisulfate 75 MG Oral Tablet; TAKE 1 TABLET BY MOUTH EVERY DAY Rx By: Poli Mercado; Dispense: 90 Days ; #:90 Tablet; Refill: 3;For: Hypertension; GAVIN = N; Verified Transmission to [facility]; Last Updated By: Pratima Callahan; 05/27/2022 [...] Last Updated (more content not included)... Normal [facility] PROSTATE SPECIFIC AGon 05-27 Prostate specific Ag [Mass/Vol] 4.54 ng/mL High 0.00 - 4.00 [facility] Comment on above: Order Comment: PATIE NT FASTING Result Comment: The FDA requires that the method used for PSA assay be reported to the physician. Values obtained with different assay methods must not be used interchangeably. This test was performed at [facility] using the Siemens Atellica PSA method, which is a sandwich immunoassay using chemiluminescence for quantitation. The assay is approved for measurement of prostate-specific antigen (PSA) in serum and may be used in conjunction with a digital rectal examination in men 50 years and older as an aid in detection of prostate cancer. 3-Eadkm-vtthxbmuz inhibitors (e.g. Proscar, Finasteride, Avodart, Dutasteride and Varsha) for the treatment of BPH have been shown to lower PSA levels by an average of 50% after 6 months of treatment. Performed By: #### P #### [facility] [address] [place] [address] Prostate Specific Antigenon 05-27-2022 Prostate specific Ag [Mass/Vol] 4.54 ng/mL above high threshold See Below [facility] Work Phone: Comment on above: Reference Range: 0.0 0 - 4.00The FDA requires that the method used for PSA assay be reported to the physician. Values obtained with different assay methods must not be used interchangeably. This test was performed at [facility] using the SiemensAtellica PSA method, which is a sandwich immunoassay using chemiluminescence for quantitation. The assay is approvedfor measurement of prostate-specific antigen (PSA) in serum and may be used in conjunction with a digital rectalexamination in men 50 years and older as an aid in detection of prostate cancer. 1-Cmpir-gjbwrxmoy inhibitors (e.g. Proscar, Finasteride, Avodart, Dutasteride and Varsha) for the treatment of BPH have been shown to lower PSA levels by an average of 50% after 6 months of treatment. Prostatic Specific Antigen, Totalon 01-16-2022 TPSA 4.280 ng/mL High <4.000 [facility] Comment on above: Result Comment: PSA Test Method: ECLIA/Dung e 601 Performed By: #### P SA #### [facility] [address] [place], [place] [id number] BUNon 10-08-2021 Urea nitrogen [Mass/Vol] 31 mg/dL High 7-25 [facility] Specialist Comment on above: Performed By: #### C GUSTAVO, BUN #### [facility] [address] [place], [place] [id number] Creatinineon 10-08-2021 Creatinine [Mass/Vol] 1.3 mg/dL Normal 0.7-1.4 [facility] Comment on above: Performed By: #### C GUSTAVO, BUN #### [facility] [address] [place], [place] [id number] eGFRAA 66 mL/min/1.73m2 Normal >60 [facility] Specialist Comment on above: Performed By: #### C GUSTAVO, BUN #### [facility] [address] [place], [place] [id number] eGFRNAA 54 mL/min/1.73m2 Low >60 [facility] Specialist Comment on above: Performed By: #### C GUSTAVO, BUN #### [facility] [address] [place], [place] [id number] Hemoglobin A1Con 10-08-2021 EAG 162.81 Normal [facility] Comment on above: Performed By: #### A 1C #### [facility] [address] [place], [place] [id number] HbA1c (Bld) [Mass fraction] 7.3 % High 4.0-6.0 [facility] Specialist Comment on above: Performed By: #### A 1C #### [facility] [address] [place], [place] [id number] Hemoglobin A1Con 09-05-2021 Glucose [Mass/Vol] 154 mg/dL [facility] on Work Phone: HbA1c (Bld) [Mass fraction] 7.0 % Abnormal [facility] on Work Phone: [phone] Comment on above: Diagnosis of Diabete s-Adults Non-Diabetic: < or = 5.6% Increased risk for developing diabetes: 5.7-6.4% Diagnostic of diabetes: > or = 6.5%. Monitoring of Diabetes Age (y) Therapeutic Goal (%) Adults: >18 <7.0 Pediatrics: 13-18 <7.5 7-12 <8.0 0- 6 7.5-8.5 [employer]. Diabetes Care 33(S1), Oct 2009. Laboratory - Chemistry and C hemistry - challengeon 09-05-2021 Anion gap [Moles/Vol] 12 mmol/L 10 - 20 [facility] on Work Phone: [phone] Calcium [Mass/Vol] 10.0 mg/dL 8.6 - 10.6 [facility] on Work Phone: [phone] Chloride [Moles/Vol] 103 mmol/L 98 - 107 [facility] on Work Phone: [phone] CO2 [Moles/Vol] 32 mmol/L 21 - 32 [facility] on Work Phone: [phone] Creatinine [Mass/Vol] 1.50 mg/dL above high threshold See Below [facility] on Work Phone: [phone] Comment on above: Reference Range: 0.5 0 - 1.30 Glucose [Mass/Vol] 109 mg/dL above high threshold 74 - 99 [facility] on Work Phone: Potassium [Moles/Vol] 5.2 mmol/L 3.5 - 5.3 [facility] on Work Phone: Sodium [Moles/Vol] 142 mmol/L 136 - 145 [facility] on Work Phone: Urea nitrogen [Mass/Vol] 26 mg/dL above high threshold 6 - 23 [facility] on Work Phone: Lipid Panelon 09-05-2021 Cholesterol [Mass/Vol] 141 mg/dL 0 - 199 -[facility] on Work Phone: Comment on above: . [...] dosing. Cholesterol in HDL [Mass/Vol] 48.3 mg/dL -[facility] on Work Phone: Comment on above: . AGE VERY LOW LOW N ORMAL HIGH 0-19 Y < 35 < 40 40-45 ---- 20-24 Y ---- < 40 >45 ---- >24 Y ---- < 40 40-60 >60. Cholesterol in LDL [Mass/Vol] 75 mg/dL 0 - 99 -[facility] on Work Phone: Comment on above: . NEAR BORD AGE ANNE RABLE OPTIMAL HIGH HIGH VERY HIGH 0-19 Y 0 - 109 --- 110-129 >/= 130 ---- 20-24 Y 0 - 119 --- 120-159 >/= 160 ---- >24 Y 0 - 99 100-129 130-159 160-189 >/=190. Cholesterol.total/Maryellen sterol in HDL [Mass ratio] 2.9 {ratio} [facility] on Work Phone: Comment on above: REF VALUESDESIRABLE < 3.4HIGH RISK > 5.0 Triglyceride [Mass/Vol] 87 mg/dL 0 - 149 M -[facility] on Work Phone: Comment on above: . [...] Lipid Panel 17 mg/dL 0 - 40 [facility] on Work Phone: No Panel Informationon 09-05 54 {mL/min/1.73m2} Abnormal >60 [facility] on Work Phone: Comment on above: CALCULATIONS OF ARISTIDES MATED GFR ARE PERFORMED USING THE MDRD STUDY EQUATION FOR THE IDMS-TRACEABLE CREATININE METHODS. CLIN CHEM 2007;53:766-72 45 {mL/min/1.73m2} Abnormal >60 [facility] on Work Phone: Office Visit (Internal Medic [...] mellitus; GAVIN = N; Verified Transmission to [id number]; Last Updated By: Pratima Callahan; 09/05/2021 10:22:32 AM Basic Metabolic Panel; Status:In Progress - Specimen/Data Collected; Done: 05Sep2021 Perform:Lab Services - Lab To Draw (Blood Test); Due:04Dec2021;Ordered ; For:Diabetes mellitus; Ordered By:Poli Mercado; Continue: FreeStyle InsuLinx System w/Device Kit; USE DIRECTED Rx By: Poli Mercado; Dispense: 0 Days ; #:1 Kit; Refill: 0;For: Diabetes mellitus; GAVIN = N; Verified Transmission to [id number]; Last Updated By: Pratima Callahan; 09/05/2021 10:22:32 AM Continue: FreeStyle InsuLinx Test In Vitro Strip; TEST ONCE DAILY *E11.9* Rx By: Poli Mercado; Dispense: 90 Days ; #:100 Strip; Refill: 3;For: Diabetes mellitus; GAVIN = N; Verified Transmission to [id number]; Last Updated By: Pratima Callahan; 09/05/2021 10:22:32 AM Continue: Glimepiride 1 MG Oral Tablet; TAKE 1 TABLET BY MOUTH EVERY DAY Rx By: Poli Mercado; Dispense: 90 Days ; #:90 Tablet; Refill: 2;For: Diabetes mellitus; GAVIN = N; Verified Transmission to [id number]; Last Updated By: Pratima Callahan; 09/05/2021 10:22:32 AM Continue: Lantus SoloStar 100 UNIT/ML Subcutaneous Solution Pen-injector; INJECT 20 UNITS SUBCUTANEOUSLY EVERYDAY Rx By: Poli Mercado; Dispense: 0 Days ; #:1 X 5 x 3 ML Pen; Refill: 1;For: Diabetes mellitus; GAVIN = N; Verified Transmission to [id number]; Last Updated By: Pratima Callahan; 09/05/2021 [...] Services - Lab To Draw (Blood Test); Due:[id number];Ordered ; For: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; Ordered By:Poli Mercado; Hyperlipidemia Continue: Atorvastatin Calcium 20 MG Oral Tablet; TAKE 1 TABLET BY MOUTH EVERY DAY Rx By: Poli Mercado; Dispense: 90 Days ; #:90 Tablet; Refill: 3;For: Hyperlipidemia; GAVIN = N; Verified Transmission to [id number]; Last Updated By: Pratima Callahan; 09/05/2021 10:22:32 AM Hypertension Continue: amLODIPine Besylate 10 MG Oral Tablet; TAKE 1 TABLET BY MOUTH EVERY DAY Rx By: Poli Mercado; Dispense: 90 Days ; #:90 Tablet; Refill: 2;For: Hypertension; GAVIN = N; Verified Transmission to [id number]; Last Updated By: Pratima Callahan; 09/05/2021 10:22:32 AM Continue: Clopidogrel Bisulfate 75 MG Oral Tablet; TAKE 1 TABLET BY MOUTH EVERY DAY Rx By: Poli Mercado; Dispense: 90 Days ; #:90 Tablet; Refill: 3;For: Hypertension; GAVIN = N; Verified Transmission to [id number]; Last Updated By: Pratima Callahan; 09/05/2021 [...] of Present [place] had flu sjot/ had covid booster eye.. dr. mg sommer in [facility] 120 s no log here, agent lantus plus glimep has a pcp in [facility] no hypos feels well drove here from [facility] this [place] travel [place] [...] (I10) Obes (more content not included)... Normal [employer] Vital Signs Date Time Vital Sign Value Performing Clinician Facility 05-04-2025 10:41-0400 Body height 167.6 cm Tom Field [employer] Phone: [facility] 05-04-2025 10:41-0400 Body mass index (BMI) [Ratio] 29.86 kg/m2 Tom Field [employer] Phone: [facility] 05-04-2025 10:41-0400 Body temperature 96.91 [degF] Tom Field [employer] [facility] 05-04-2025 10:41-0400 Body weight 83.92 kg Tom Field [employer] Phone: [facility] [employer] [facility] 05-04-2025 10:41-0400 Diastolic blood pressure 58 mm[Hg] Tom Field [employer] Phone: [facility] 05-04-2025 10:41-0400 Heart rate 62 /min Tom Field [employer] Phone: [facility] 05-04-2025 10:41-0400 SaO2% (BldA) [Mass fraction] 99 % Tom Field [employer] Phone: [facility] 05-04-2025 10:41-0400 Systolic blood pressure 100 mm[Hg] Tom Field [employer] Phone: [facility] 05-02-2025 16:38-0400 Diastolic blood pressure 54 mm[Hg] Benedicto Field DO Work Phone: [facility] 05-02-2025 16:38-0400 Heart rate 83 /min Benedicto Field DO Work Phone: [facility] 05-02-2025 16:38-0400 Respiratory rate 22 /min Benedicto Field DO Work Phone: [facility] 05-02-2025 16:38-0400 SaO2% (BldA) [Mass fraction] 97 % Benedicto Field DO Work Phone: [facility] 05-02-2025 16:38-0400 Systolic blood pressure 99 mm[Hg] Benedicto Field DO Work Phone: [facility] 05-02-2025 12:30-0400 Body height 175.26 cm Benedicto Field DO Work Phone: [facility] 05-02-2025 12:30-0400 Body temperature 97.7 [degF] Benedicto Field DO Work Phone: [facility] 05-02-2025 12:30-0400 Body weight 87.08 kg Benedicto Field DO Work Phone: [facility] 04-06-2025 15:13-0400 Diastolic blood pressure 87 mm[Hg] Silvestre Cooley MD Work Phone: [facility] 04-06-2025 15:13-0400 Systolic blood pressure 176 mm[Hg] Silvestre Cooley MD Work Phone: [facility] 03-15-2025 10:30-0400 Body height 172.72 cm Benedicto Field DO Work Phone: [facility] 03-15-2025 10:30-0400 Body mass index (BMI) [Ratio] 29.7 kg/m2 Benedicto Field DO Work Phone: [facility] 03-15-2025 10:30-0400 Body weight 88.9 kg Benedicto Field DO Work Phone: [facility] 03-15-2025 10:30-0400 Diastolic blood pressure 60 mm[Hg] Benedicto Field DO Work Phone: [facility] 03-15-2025 10:30-0400 Heart rate 67 /min Benedicto Field DO Work Phone: [facility] 03-15-2025 10:30-0400 Respiratory rate 18 /min Benedicto Field DO Work Phone: [facility] 03-15-2025 10:30-0400 SaO2% (BldA) [Mass fraction] 97 % Benedicto Field DO Work Phone: [facility] 03-15-2025 10:30-0400 Systolic blood pressure 136 mm[Hg] Benedicto Field DO Work Phone: [facility] 03-01-2025 10:04-0400 Body height 170.2 cm Daja Moreno PA Work Phone: [facility] 03-01-2025 10:04-0400 Body mass index (BMI) [Ratio] 31.01 kg/m2 Daja Moreno PA Work Phone: [facility] 03-01-2025 10:04-0400 Body temperature 97.3 [degF] Daja Moreno PA Work Phone: [facility] 03-01-2025 10:04-0400 Body weight 89.81 kg Daja Moreno PA Work Phone: [facility] 03-01-2025 10:04-0400 Diastolic blood pressure 62 mm[Hg] Daja Moreno PA Work Phone: [facility] 03-01-2025 10:04-0400 Heart rate 63 /min Daja Moreno PA Work Phone: [facility] 03-01-2025 10:04-0400 SaO2% (BldA) [Mass fraction] 96 % Daja Moreno PA Work Phone: [facility] 03-01-2025 10:04-0400 Systolic blood pressure 100 mm[Hg] Daja Moreno PA Work Phone: [facility] 03-01-2025 09:03-0400 Body height 170.2 cm Tom Field DO Work Phone: [facility] 03-01-2025 09:03-0400 Body mass index (BMI) [Ratio] 31.01 kg/m2 Tom Field DO Work Phone: [facility] 03-01-2025 09:03-0400 Body temperature 97.3 [degF] Tom Field DO Work Phone: [facility] 03-01-2025 09:03-0400 Body weight 89.81 kg Tom Field DO Work Phone: [facility] 03-01-2025 09:03-0400 Diastolic blood pressure 62 mm[Hg] Tom Field DO Work Phone: [facility] 03-01-2025 09:03-0400 Heart rate 63 /min Tom Field DO Work Phone: [facility] 03-01-2025 09:03-0400 SaO2% (BldA) [Mass fraction] 96 % Tom Field DO Work Phone: [facility] 03-01-2025 09:03-0400 Systolic blood pressure 100 mm[Hg] Tom Field DO Work Phone: [facility] 01-03-2025 06:32-0400 Body height 167.64 cm Benedicto Field DO Work Phone: [facility] 01-03-2025 06:32-0400 Body temperature 97.4 [degF] Benedicto Grafffelix DO Work Phone: [facility] 01-03-2025 06:32-0400 Body weight 87.54 kg Benedicto Field DO Work Phone: [facility] 01-03-2025 06:32-0400 Diastolic blood pressure 57 mm[Hg] Benedicto Field DO Work Phone: [facility] 01-03-2025 06:32-0400 Heart rate 62 /min Benedicto Field DO Work Phone: [facility] 01-03-2025 06:32-0400 Respiratory rate 16 /min Benedicto Field DO Work Phone: [facility] 01-03-2025 06:32-0400 SaO2% (BldA) [Mass fraction] 97 % Benedicto Field DO Work Phone: [facility] 01-03-2025 06:32-0400 Systolic blood pressure 120 mm[Hg] Benedicto Field DO Work Phone: [facility] 10-25-2024 10:13-0500 Body height 170.2 cm Tom Field DO Work Phone: [facility] 10-25-2024 10:13-0500 Body temperature 97.3 [degF] Tom Field DO Work Phone: [facility] 10-25-2024 10:13-0500 Diastolic blood pressure 60 mm[Hg] Tom Field DO Work Phone: [facility] 10-25-2024 10:13-0500 Heart rate 62 /min Tom Field DO Work Phone: [facility] 10-25-2024 10:13-0500 SaO2% (BldA) [Mass fraction] 97 % Tom Field DO Work Phone: [facility] 10-25-2024 10:13-0500 Systolic blood pressure 122 mm[Hg] Tom Field DO Work Phone: [facility] 10-05-2024 07:56-0500 Body height 170.2 cm Sunny Vasquez DO Work Phone: [facility] 10-05-2024 07:56-0500 Body mass index (BMI) [Ratio] 29.76 kg/m2 Sunny Vasquez DO Work Phone: [facility] 10-05-2024 07:56-0500 Body weight 86.18 kg Sunny Vasquez DO Work Phone: [facility] 09-06-2024 10:17-0500 Body height 170.2 cm Autumn Valencia PA Work Phone: [facility] 09-06-2024 10:17-0500 Body mass index (BMI) [Ratio] 29.76 kg/m2 Autumn Valencia PA Work Phone: [facility] 09-06-2024 10:17-0500 Body weight 86.18 kg Autumn Valencia PA Work Phone: [facility] 09-06-2024 10:17-0500 Diastolic blood pressure 74 mm[Hg] Autumn Valencia PA Work Phone: [facility] 09-06-2024 10:17-0500 Heart rate 66 /min Autumn Valencia PA Work Phone: [facility] 09-06-2024 10:17-0500 Respiratory rate 16 /min Autumn Valencia PA Work Phone: [facility] 09-06-2024 10:17-0500 SaO2% (BldA) [Mass fraction] 95 % Autumn Valencia PA Work Phone: [facility] 09-06-2024 10:17-0500 Systolic blood pressure 130 mm[Hg] Autumn Valencia PA Work Phone: [facility] 08-10-2024 09:10-0400 Body height 170.2 cm Sunny Vasquez DO Work Phone: [facility] 08-10-2024 09:10-0400 Body mass index (BMI) [Ratio] 30.07 kg/m2 Sunny Vasquez DO Work Phone: [facility] 08-10-2024 09:10-0400 Body weight 87.09 kg Sunny Vasquez DO Work Phone: [facility] 06-28-2024 15:12-0400 Body height 167.64 cm DO Benedicto Field Work Phone: [facility] 06-28-2024 15:12-0400 Body mass index (BMI) [Ratio] 30.2 kg/m2 DO Benedicto Field Work Phone: [facility] 06-28-2024 15:12-0400 Body weight 84.82 kg DO Benedicto Field Work Phone: [facility] 06-28-2024 15:12-0400 Diastolic blood pressure 61 mm[Hg] DO Benedicto Field Work Phone: [facility] 06-28-2024 15:12-0400 Heart rate 78 /min DO Benedicto Field Work Phone: [facility] 06-28-2024 15:12-0400 SaO2% (BldA) [Mass fraction] 98 % DO Benedicto Field Work Phone: [facility] 06-28-2024 15:12-0400 Systolic blood pressure 102 mm[Hg] DO Benedicto Field Work Phone: [facility] 06-18-2024 12:30-0400 Body height 172.7 cm Tom Field DO Work Phone: [facility] 06-18-2024 12:30-0400 Body mass index (BMI) [Ratio] 28.74 kg/m2 Tom Field DO Work Phone: [facility] 06-18-2024 12:30-0400 Body temperature 97.39 [degF] Tom Field DO Work Phone: [facility] 06-18-2024 12:30-0400 Body weight 85.73 kg Tom Field DO Work Phone: [facility] 06-18-2024 12:30-0400 Diastolic blood pressure 62 mm[Hg] Tom Prernafelix DO Work Phone: [facility] 06-18-2024 12:30-0400 Heart rate 60 /min Tom Myraleighton DO Work Phone: [facility] 06-18-2024 12:30-0400 SaO2% (BldA) [Mass fraction] 100 % Tom Field DO Work Phone: [facility] 06-18-2024 12:30-0400 Systolic blood pressure 118 mm[Hg] Tom Field DO Work Phone: [facility] 06-15-2024 11:24-0400 Body height 170.18 cm DO Benedicto Field Work Phone: [facility] 06-15-2024 11:24-0400 Body mass index (BMI) [Ratio] 30.4 kg/m2 DO Benedicto Field Work Phone: [facility] 06-15-2024 11:24-0400 Body weight 87.99 kg DO Benedicto Field Work Phone: [facility] 06-15-2024 11:24-0400 Diastolic blood pressure 62 mm[Hg] DO Benedicto Field Work Phone: [facility] 06-15-2024 11:24-0400 Heart rate 61 /min DO Benedicto Field Work Phone: [facility] 06-15-2024 11:24-0400 Respiratory rate 18 /min DO Benedicto Field Work Phone: [facility] 06-15-2024 11:24-0400 SaO2% (BldA) [Mass fraction] 98 % DO Benedicto Field Work Phone: [facility] 06-15-2024 11:24-0400 Systolic blood pressure 120 mm[Hg] DO Benedicto Field Work Phone: [facility] 06-15-2024 08:34-0400 Body height 172.7 cm Fer García PROOF MACHINE OPERATOR Work Phone: [facility] 06-15-2024 08:34-0400 Body mass index (BMI) [Ratio] 29.5 kg/m2 Fer García PROOF MACHINE OPERATOR Work Phone: [facility] 06-15-2024 08:34-0400 Body weight 88 kg Fer García PROOF MACHINE OPERATOR Work Phone: [facility] 06-15-2024 08:34-0400 Diastolic blood pressure 60 mm[Hg] Fer García PROOF MACHINE OPERATOR Work Phone: [facility] 06-15-2024 08:34-0400 Heart rate 75 /min Fer García PROOF MACHINE OPERATOR Work Phone: [facility] 06-15-2024 08:34-0400 Systolic blood pressure 126 mm[Hg] Fer García PROOF MACHINE OPERATOR Work Phone: [facility] 06-07-2024 10:03-0400 Body height 172.7 cm Tom Field DO Work Phone: [facility] 06-07-2024 10:03-0400 Body mass index (BMI) [Ratio] 29.32 kg/m2 Tom Field DO Work Phone: [facility] 06-07-2024 10:03-0400 Body temperature 97.3 [degF] Tom Field DO Work Phone: [facility] 06-07-2024 10:03-0400 Body weight 87.45 kg Tom Field DO Work Phone: [facility] 06-07-2024 10:03-0400 Diastolic blood pressure 62 mm[Hg] Tom Field DO Work Phone: [facility] 06-07-2024 10:03-0400 Heart rate 61 /min Tom Field DO Work Phone: [facility] 06-07-2024 10:03-0400 SaO2% (BldA) [Mass fraction] 97 % Tom Field DO Work Phone: [facility] 06-07-2024 10:03-0400 Systolic blood pressure 118 mm[Hg] Tom Field DO Work Phone: [facility] 06-01-2024 10:44-0400 Body height 167.64 cm DO Benedicto Field Work Phone: [facility] 06-01-2024 10:44-0400 Body mass index (BMI) [Ratio] 31.4 kg/m2 DO Benedicto Field Work Phone: [facility] 06-01-2024 10:44-0400 Body temperature 97.8 [degF] DO Benedicto Field Work Phone: [facility] 06-01-2024 10:44-0400 Body weight 88.45 kg DO Benedicto Field Work Phone: [facility] 06-01-2024 10:44-0400 Diastolic blood pressure 76 mm[Hg] DO Benedicto Field Work Phone: [facility] 06-01-2024 10:44-0400 Heart rate 68 /min DO Benedicto Field Work Phone: [facility] 06-01-2024 10:44-0400 Respiratory rate 16 /min DO Benedicto Field Work Phone: [facility] 06-01-2024 10:44-0400 SaO2% (BldA) [Mass fraction] 98 % DO Benedicto Field Work Phone: [facility] 06-01-2024 10:44-0400 Systolic blood pressure 122 mm[Hg] DO Benedicto Field Work Phone: [facility] 02-09-2024 10:28-0400 Diastolic blood pressure 62 mm[Hg] DO Benedicto Field Work Phone: [facility] 02-09-2024 10:28-0400 Heart rate 62 /min DO Benedicto Field Work Phone: [facility] 02-09-2024 10:28-0400 Respiratory rate 18 /min DO Benedicto Field Work Phone: [facility] 02-09-2024 10:28-0400 SaO2% (BldA) [Mass fraction] 98 % DO Benedicto Field Work Phone: [facility] 02-09-2024 10:28-0400 Systolic blood pressure 120 mm[Hg] DO Benedicto Field Work Phone: [facility] 02-09-2024 07:44-0400 Body height 172.72 cm DO Benedicto Field Work Phone: [facility] 02-09-2024 07:44-0400 Body weight 87.09 kg DO Benedicto Field Work Phone: [facility] 07-02-2023 14:00-0400 Body height 172.72 cm Lili Gonsales Other [facility] Other 07-02-2023 14:00-0400 Body mass index (BMI) [Ratio] 31.17 kg/m2 Lili Gonsales Other [facility] Other 07-02-2023 14:00-0400 Body weight 92.99 kg Lili Gonsales Other [facility] Other 07-02-2023 14:00-0400 Diastolic blood pressure 56 mm[Hg] Lili Gonsales Other [facility] Other 07-02-2023 14:00-0400 SaO2% (BldA) [Mass fraction] 61 % Lili Gonsales Other [facility] Other 07-02-2023 14:00-0400 Systolic blood pressure 137 mm[Hg] Lili Gonsales Other [facility] Other 05-27-2022 10:03-0400 Body height 172.72 cm Ashlee Henry Work Phone: [facility] Work Phone: 05-27-2022 10:03-0400 Body mass index (BMI) [Ratio] 31.78 kg/m2 Colmesneil C Kodz Work Phone: [facility] [facility] Work Phone: 05-27-2022 10:03-0400 Body surface area Derived from formula 2.08 m2 Ashlee C Kodz Work Phone: [employer] [facility] Work Phone: 05-27-2022 10:03-0400 Body temperature 96.4 [degF] Colmesneil C Kodz Work Phone: [facility] Work Phone: 05-27-2022 10:03-0400 Body weight 94.8 kg Colmesneil C Kodz Work Phone: [facility] [facility] Work Phone: 05-27-2022 10:03-0400 Diastolic blood pressure 62 mm[Hg] Ashele C Kodz Work Phone: [facility] Work Phone: 05-27-2022 10:03-0400 Heart rate 70 /min Ashlee C Kodz Work Phone: [facility] Work Phone: 05-27-2022 10:03-0400 SaO2% (BldA) [Mass fraction] 98 % Ashlee C Kodz Work Phone: [employer] [facility] Work Phone: 05-27-2022 10:03-0400 Systolic blood pressure 140 mm[Hg] Colmesneil C Kodz Work Phone: [facility] Work Phone: Encounters Encounter Date Encounter Type Care Provider Facility Start: 05-11-2025 End: 05-12-2025 Orders Only Sarah Connell DPM Work Phone: [facility] External Department Unsolicited Start: 05-04-2025 End: 05-04-2025 Bamboo flowsheet Tom Field DO Work Phone: [facility] [address] Start: 05-04-2025 End: 05-04-2025 Bamboo flowsheet Tom Field DO Work Phone: [facility] [address] Start: 05-04-2025 End: 05-04-2025 Office outpatient visit 25 minutes Tom Field DO Work Phone: [facility] [address] Comment on above: Orthostatic lighthea dedness (Primary Dx); Parkinson's disease with dyskinesia and fluctuating manifestations (HCC); Hypertension, unspecified type ; Hypothyroidism, unspecified type ; Fall, sequela; Acute pain of right knee Start: 05-04-2025 End: 05-04-2025 ambulatory TOM FIELD Not Available Start: 05-02-2025 End: 05-02-2025 Emergency department patient visit Nnamdi Dozier Facility:[facility] Start: 05-02-2025 Non-patient / Non-visit [facility] Start: 04-25-2025 End: 04-25-2025 Bamboo flowsheet Sarah Connell DPM Work Phone: [facility] Start: 04-25-2025 End: 04-25-2025 Bamboo flowsheet Sarah Connell DPM Work Phone: [facility] Start: 04-25-2025 End: 04-25-2025 ambulatory SARAH CONNELL Not Available Start: 04-25-2025 End: 04-25-2025 Patient encounter procedure Sarah Connell DPM Work Phone: [facility] Comment on above: Onychomycosis (Prima ry Dx); Type II diabetes mellitus with neurological manifestations (HCC); Pain in both feet Start: 04-06-2025 End: 04-06-2025 Patient encounter procedure Tom Conde MD -Pacemaker Check Start: 04-06-2025 End: 04-06-2025 ambulatory Benedicto Field DO Work Phone: [facility] Work Phone: Start: 04-06-2025 End: 04-06-2025 Patient encounter procedure Silvestre Cooley MD Work Phone: [facility] Comment on above: 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 Start: 04-06-2025 End: 04-06-2025 ambulatory SILVESTRE COOLEY Not Available Start: 04-06-2025 Non-patient / [facility] Start: 03-15-2025 End: 03-15-2025 ambulatory Benedicto Field DO Work Phone: [facility] Work Phone: Start: 03-15-2025 End: 03-15-2025 Patient encounter procedure Benedicto Renterianicolasafelix DO Work Phone: [facility] Work Phone: Start: 03-03-2025 End: 03-03-2025 ambulatory HILLARY WILHELM Not Available Start: 03-01-2025 End: 03-01-2025 Bamboo flowsheet Tom Field DO Work Phone: [facility] Start: 03-01-2025 End: 03-01-2025 Bamboo flowsheet Tom Field DO Work Phone: [facility] Start: 03-01-2025 End: 03-01-2025 Assay of hemosiderin, quant Daja BLACKBURN Work Phone: [facility] Work Phone: Start: 03-01-2025 End: 03-01-2025 Patient encounter procedure Daja BLACKBURN Work Phone: [facility] Comment on above: Routine general medi feng examination at health care facility (Primary Dx) Start: 03-01-2025 End: 03-01-2025 Office outpatient visit 25 minutes Tom Field DO Work Phone: [facility] 230 Comment on above: 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, unspecified vessel or lesion type, unspecified whether [place] or transplanted heart ([facility]/HCC) (Primary Dx); Type 2 diabetes mellitus without complication, with long-term current use of insulin; Hypertension, unspecified type ([facility]); Mixed hyperlipidemia ([facility]); Stage 3a chronic kidney disease (HCC) ([facility]); Type 2 diabetes mellitus with hyperglycemia, without long-term current use of insulin ([facility]); Erectile dysfunction, unspecified erectile dysfunction type Start: 03-01-2025 End: 03-01-2025 Refill Tom Field DO Work Phone: [facility] 230 Comment on above: Type 2 diabetes li itus without complication, with long-term current use of insulin Start: 02-03-2025 End: 02-07-2025 Refill Sarah NOGUERAM Work Phone: [facility] Comment on above: Onychomycosis Start: 02-01-2025 End: 02-01-2025 Bamboo flowsorlando Davies MD Work Phone: [facility] Start: 02-01-2025 End: 02-01-2025 Bamboo flowsorlando Davies MD Work Phone: [facility] Start: 02-01-2025 End: 02-01-2025 Office outpatient new 30 minutes Hetal Davies MD Work Phone: [facility] Comment on above: Seborrheic keratosis (Primary Dx); Lentigines; Capillary angioma; Neoplasm of unspecified behavior of bone, soft tissue, and skin; History of skin cancer Start: 02-01-2025 End: 02-01-2025 ambulatory HETAL DAVIES Not Available Start: 01-18-2025 End: 01-18-2025 Bamboo flowsheet Sarah NOGUERAM Work Phone: [facility] Start: 01-18-2025 End: 01-18-2025 Bamboo flowsheet Sarah Connell DPM Work Phone: [facility] Start: 01-18-2025 End: 01-18-2025 Patient encounter procedure Sarah Connell DPM Work Phone: [facility] Comment on above: Onychomycosis (Prima ry Dx); Type II diabetes mellitus with neurological manifestations (CMS/HCC); Pain in both feet Start: 01-18-2025 End: 01-18-2025 ambulatory SARAH CONNELL Not Available Start: 01-13-2025 End: 01-13-2025 Refill Tom Field DO Work Phone: [facility] 230 Comment on above: Essential (primary) hypertension (CMS/HCC) Start: 01-05-2025 End: 01-05-2025 Patient encounter procedure Benedicto Field DO Work Phone: [facility]-Pacemaker Check Start: 01-05-2025 End: 01-05-2025 ambulatory Benedicto Field DO Work Phone: [facility] Work Phone: Start: 01-05-2025 Non-patient / Non-visit Benedicto Field DO Work Phone: [facility] Start: 01-04-2025 End: 01-04-2025 ambulatory TOM FIELD Not Available Start: 01-03-2025 End: 01-03-2025 Admission to same day surgery center Benedicto Field DO Work Phone: [facility] [place] Start: 01-03-2025 End: 01-03-2025 ambulatory Benedicto Field DO Work Phone: [facility] Work Phone: Start: 12-31-2024 End: 12-31-2024 ambulatory SUE LOVING Not Available Start: 12-29-2024 End: 12-29-2024 ambulatory HILLARY WILHELM Not Available Start: 12-20-2024 End: 12-20-2024 Patient encounter procedure Benedicto Field DO Work Phone: [facility] Work Phone: Start: 12-20-2024 End: 12-20-2024 ambulatory Benedicto Field DO Work Phone: [facility] Work Phone: Start: 12-20-2024 Encounter for preprocedural laboratory examination Sunny Vasquez [facility] Start: 11-22-2024 End: 11-22-2024 ambulatory TOM FIELD Not Available Start: 10-25-2024 End: 10-25-2024 Bamboo flowsheet Tom Field DO Work Phone: [facility] Start: 10-25-2024 End: 10-25-2024 Bamboo flowsheet Tom Field DO Work Phone: [facility] Start: 10-25-2024 End: 10-25-2024 Office outpatient visit 25 minutes Tom Field DO Work Phone: [facility] 230 Comment on above: 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, unspecified vessel or lesion type, unspecified whether [place] or transplanted heart ([facility]/HCC) (Primary Dx); Type 2 diabetes mellitus with diabetic chronic kidney disease ([facility]/HCC); Chronic kidney disease, stage 3b (HCC) ([facility]/HCC); Sick sinus syndrome ([facility]/HCC); Hypertensive heart disease with heart failure ([facility]/HCC); Hypertension, unspecified type ([facility]/HCC); Mixed hyperlipidemia ([facility]/HCC); Stage 3a chronic kidney disease (HCC) ([facility]/HCC); Type 2 diabetes mellitus with hyperglycemia, without long-term current use of insulin ([facility]); Raynaud's disease without gangrene Start: 10-25-2024 End: 10-25-2024 ambulatory TOM FIELD Not Available Start: 10-21-2024 End: 10-21-2024 Refill Frankie Cordon LPN Work Phone: [facility] 230 Comment on above: Myalgia Start: 10-08-2024 Non-patient / Non-visit Benedicto Field DO Work Phone: [facility] Start: 10-08-2024 End: 10-08-2024 Patient encounter procedure Benedicto Field DO Work Phone: [facility]-Pacemaker Check Start: 10-08-2024 End: 10-08-2024 ambulatory Benedicto Field Facility:[facility] Start: 10-05-2024 End: 10-05-2024 Bamboo flowsheet Sunny Yusuf Pedro DO Work Phone: [facility] Start: 10-05-2024 End: 10-05-2024 Bamboo flowsheet Sunny Yusuf Michaelfrancois DO Work Phone: [facility] Start: 10-05-2024 End: 10-05-2024 Office outpatient visit 25 minutes Sunny Vasquez DO Work Phone: [facility] Comment on above: Obstructive sleep ap lauri (Primary Dx); Intolerance of continuous positive airway pressure (CPAP) ventilation Start: 10-05-2024 End: 10-05-2024 ambulatory SUNNY Yusuf PEDRO Not Available Start: 10-04-2024 End: 10-04-2024 Patient encounter procedure Benedicto Field DO Work Phone: [facility] Work Phone: Start: 10-04-2024 End: 10-04-2024 ambulatory Benedicto Field Facility:[facility] Start: 09-29-2024 End: 09-29-2024 Bamboo flowsheet Sarah Connell DPM Work Phone: [facility] Start: 09-29-2024 End: 09-29-2024 Bamboo flowsheet Sarah Connell DPM Work Phone: [facility] Start: 09-29-2024 End: 09-29-2024 Patient encounter procedure Sarah Connell DPM Work Phone: [facility] Comment on above: Onychomycosis (Prima ry Dx); Type II diabetes mellitus with neurological manifestations (CMS/HCC); Pain in both feet Start: 09-29-2024 End: 09-29-2024 ambulatory SARAH H ANKIT Not Available Start: 09-27-2024 End: 09-27-2024 ambulatory SUNNY VASQUEZ Not Available Start: 09-27-2024 End: 09-27-2024 Patient encounter procedure Sunny Vasquez DO Work Phone: [facility] Comment on above: LOPEZ (obstructive sle ep apnea) (Primary Dx) Start: 09-23-2024 End: 09-23-2024 Telephone encounter Dwight Anand MA [facility] Start: 09-16-2024 End: 09-16-2024 ambulatory Benedicto Field Facility:[facility] Start: 09-06-2024 End: 09-06-2024 Bamboo flowsheet Autumn BLACKBURN Work Phone: [facility] Start: 09-06-2024 End: 09-06-2024 Bamboo flowsheet Autumn BLACKBURN Work Phone: [facility] Start: 09-06-2024 End: 09-06-2024 Office [...] encounter procedure DO Benedicto Field Work Phone: [facility]Pacemaker Check Start: 07-07-2024 End: 07-07-2024 ambulatory DO Benedicto Field Work Phone: [facility] Work Phone: Start: 06-30-2024 End: 06-30-2024 ambulatory GISELLE GANDARA MD Facility:[facility] Start: 06-30-2024 End: 06-30-2024 Patient encounter procedure Sarah Connell DPM Work Phone: [facility] Comment on above: Onychomycosis (Prima ry Dx); Type II diabetes mellitus with neurological manifestations ([facility]) Start: 06-30-2024 End: 06-30-2024 ambulatory SARAH CONNELL Not Available Start: 06-28-2024 End: 06-28-2024 ambulatory DO Benedicto Field Work Phone: [facility] Work Phone: Start: 06-28-2024 End: 06-28-2024 Patient encounter procedure DO Benedicto Field Work Phone: [facility] Work Phone: Start: 06-27-2024 End: 06-27-2024 ambulatory Valentino FIELD DO [facility] Start: 06-18-2024 End: 06-18-2024 Bamboo flowsheet Tom Field DO Work Phone: [facility] 230 Start: 06-18-2024 End: 06-18-2024 Bamboo flowsheet Tom Field DO Work Phone: [facility] 230 Start: 06-18-2024 End: 06-18-2024 Office outpatient visit 25 minutes Tom Field DO Work Phone: [facility] 230 Comment on above: 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, unspecified vessel or lesion type, unspecified whether [place] or transplanted heart (CMS/HCC) (Primary Dx); Type 2 diabetes mellitus without complication, with long-term current use of insulin ([facility]/HCC); Diabetic nephropathy associated with type 2 diabetes mellitus (HCC) ([facility]/HCC); Mixed hyperlipidemia ([facility]/HCC); Hypertension, unspecified type ([facility]/HCC); Hypothyroidism, unspecified type ([facility]/HCC) Start: 06-18-2024 End: 06-18-2024 ambulatory TOM FIELD Not Available Start: 06-15-2024 End: 06-15-2024 Bamboo flowsheet Fer García PROOF MACHINE OPERATOR Work Phone: [facility] Start: 06-15-2024 End: 06-15-2024 Bamboo flowsheet Fer García PROOF MACHINE OPERATOR Work Phone: [facility] Start: 06-15-2024 End: 06-16-2024 Orders Only Tom Field DO Work Phone: [facility] External Department Unsolicited Start: 06-15-2024 End: 06-15-2024 ambulatory DO Benedicto Field Work Phone: [facility] Work Phone: Start: 06-15-2024 End: 06-15-2024 Patient encounter procedure DO Benedicto Field Work Phone: [facility] Work Phone: Start: 06-15-2024 End: 06-15-2024 Office outpatient visit 25 minutes Fer García PROOF MACHINE OPERATOR Work Phone: [facility] Comment on above: 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) (Primary Dx) Start: 06-15-2024 End: 06-15-2024 ambulatory FER GARCÍA Not Available Start: 06-07-2024 End: 06-07-2024 Office outpatient visit 25 minutes Tom Field DO Work Phone: [facility] 230 Comment on above: 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) (Primary Dx); Peripheral vascular disease (CMS/HCC); Hypertension, unspecified type (CMS/HCC); Hypothyroidism, unspecified type (CMS/HCC); Stage 3a chronic kidney disease (HCC) (CMS/HCC); 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, unspecified vessel or lesion type, unspecified whether [place] or transplanted heart (CMS/HCC); Type 2 diabetes mellitus with hyperglycemia, without long-term current use of insulin (CMS/HCC); Myalgia Start: 06-07-2024 End: 06-07-2024 ambulatory TOM FIELD Not Available Start: 06-01-2024 End: 06-01-2024 ambulatory DO Benedicto Field Work Phone: [facility] Work Phone: Start: 06-01-2024 End: 06-01-2024 Patient encounter procedure DO Benedicto Field Work Phone: [facility] Work Phone: Start: 02-09-2024 Non-patient / Non-visit DO Benedicto Field Work Phone: [facility] Work Phone: Start: 02-09-2024 End: 02-09-2024 Admission to same day surgery center DO Benedicto Field Work Phone: [facility] Work Phone: Start: 02-09-2024 End: 02-09-2024 ambulatory DO Benedicto Field Work Phone: [facility] Work Phone: Start: 10-01-2023 End: 10-01-2023 ambulatory DO Benedicto Field Work Phone: [facility] Work Phone: Start: 10-01-2023 End: 10-01-2023 Patient encounter procedure DO Benedicto Field Work Phone: [facility] Work Phone: Start: 07-02-2023 Office outpatient ne w 45 minutes Lili [facility] Start: 07-02-2023 End: 07-02-2023 ambulatory DO Benedicto Field Work Phone: [facility] Work Phone: Start: 07-02-2023 End: 07-02-2023 Patient encounter procedure DO Benedicto Field Work Phone: [facility] Work Phone: Start: 03-13-2023 ambulatory DEANNA FAUST . Facili ty:H1 Start: 02-25-2023 End: 02-25-2023 ambulatory NARENDRANATH LAKSHMIPATHY . Facility:H1 Start: 02-06-2023 End: 02-07-2023 ambulatory NARENDRANATH LAKSHMIPATHY . Facility:H1 Start: 01-09-2023 End: 01-10-2023 ambulatory NARENDRANATH LAKSHMIPATHY . Facility:H1 Start: 01-02-2023 ambulatory DIAMANTE SPAULDING . Facility:H 1 Start: 12-19-2022 End: 12-20-[address] SADIE PERRY . Facility:H1 Start: 12-14-2022 Rx Renewal Ashlee Henry Work Phone: [facility] Work Phone: Start: 12-02-2022 End: 12-03-2022 ambulatory Valentino FIELD DO Facility:[id number] Start: 12-02-2022 End: 12-03-2022 ambulatory Valentino FIELD DO Facility:[id number] Start: 11-12-2022 End: 11-13-[address] SADIE PERRY . Facility:H1 Start: 10-24-[address] SADIE PERRY . Faci lity:H1 Start: 10-24-2022 Rx Renewal Ashlee C Kodz Work Phone: [facility] Work Phone: Start: 10-21-2022 ambulatory [place] [facility] Facil [id number] Start: 10-18-2022 Rx Renewal Ashlee C Kodz Work Phone: [facility] Work Phone: Start: 10-01-2022 End: 10-01-[address] SADIE PERRY . Facility:H1 Start: 09-03-2022 End: 09-04-[address] SADIE PERRY . Facility:H1 Start: 08-04-2022 Rx Renewal Ashlee C Kodz Work Phone: [facility] Work Phone: Start: 05-29-2022 AUDIT Ashlee C Kodz Work Phone: [facility] Work Phone: Start: 05-27-2022 Office outpatient vi sit 25 minutes Ashlee C Kodz Work Phone: [facility] Work Phone: Start: 05-27-[address] [facility] Facil [id number] Start: 05-23-2022 End: 05-24-[address] SADIE PERRY . Facility:H1 Start: 05-10-2022 Rx Renewal Ashlee C Kodz Work Phone: [facility] Work Phone: Start: 03-04-2022 Telephone encounter Ashlee C Ko dz Work Phone: [facility] Work Phone: Start: 02-28-2022 End: 03-01-[address] SADIE PERRY . Facility: Start: 12-18-2021 Rx Renewal Ashlee C Kodz Work Phone: [facility] Work Phone: Start: 10-06-2021 Rx Renewal Colmesneil C Kodz Work Phone: [facility] Work Phone: Start: 09-26-2021 AUDIT Ashlee C Kodz Work Phone: [facility] Work Phone: Start: 09-10-2021 AUDIT Colmesneil C Kodz Work Phone: [facility] Work Phone: Start: 09-06-2021 Rx Renewal Colmesneil C Kodz Work Phone: [facility] Work Phone: Start: 09-05-2021 Office outpatient vi sit 15 minutes Colmesneil C Kodz Work Phone: [facility] Work Phone: Start: 09-05-2021 Patient encounter procedure Ashlee C Kodz Work Phone: [facility] Work Phone: Start: 08-12-2021 Rx Renewal Colmesneil C Kodz Work Phone: [facility] Work Phone: Start: 03-09-2021 Rx Renewal Ashlee C Kodz Work Phone: [facility] Work Phone: Start: 02-23-2020 Patient encounter procedure Poli Mercado MD [facility] Work Phone: Start: 08-25-2019 Patient encounter procedure Poli Mercado MD -[facility] Work Phone: Start: 04-07-2019 Patient encounter procedure Poli Mercado MD -[facility] Work Phone: Procedures Date Procedure Procedure Detail Performing Clinician Start: 05-11-2025 Hepatic function panel Sarah Connell DPM Work Phone: Start: 05-11-2025 SPECIMEN STATUS REPORT Sarah Connell DPM Work Phone: Start: 04-06-2025 MOHS SURGERY Silvestre ambrose MD Work Phone: Start: 02-01-2025 SKIN / NAIL BIOPSY Dinesh Davies MD Work Phone: Start: 06-15-2024 Complete blood count with white cell differential, automated Tom Field DO Work Phone: Start: 06-15-2024 Comprehensive metabo lic panel Tom Field DO Work Phone: Start: 06-15-2024 Lipid panel Tom Quiroga caiogladis ABDUL Work Phone: Start: 06-15-2024 SPECIMEN STATUS REPORT [...] Start: 11-15-2026 Glaucoma screening Diabetes: Retinopathy Screening [facility] Start: 04-23-2026 Glaucoma screening Diabetes: Retinopathy Screening [facility] Start: 03-01-2026 Medicare Annual Wellness (AWV) Medicare Annual Wellness (AWV) [facility] Start: 02-22-2026 Urine screening for protein Diabetes: Urine Protein Screening [facility] Start: 02-01-2026 End: 02-01-2026 Patient encounter procedure [facility] Start: 10-19-2025 Urine screening for protein Diabetes: Urine Protein Screening [facility] Start: 07-26-2025 End: 07-26-2025 Patient encounter procedure [facility] Start: 06-15-2025 Urine screening for protein Diabetes: Urine Protein Screening [facility] Start: 06-14-2025 End: 06-14-2025 Patient encounter procedure [facility] Start: 06-13-2025 Influenza vaccination Influenza Vaccine (#1) [facility] Start: 05-30-2025 End: 07-29-2025 CBC W Auto Differential panel - Blood CBC and differential Lab Routine Type 2 diabetes mellitus without complication, with long-term current use of insulin 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, unspecified vessel or lesion type, unspecified whether [place] or transplanted heart (CMS/HCC) Hypertension, unspecified type (CMS/HCC) Mixed hyperlipidemia (CMS/HCC) Stage 3a chronic kidney disease (HCC) (CMS/HCC) Type 2 diabetes mellitus with hyperglycemia, without long-term current use of insulin (CMS/HCC) Erectile dysfunction, unspecified erectile dysfunction type Expected: 05/30/2025 (Approximate), Expires: 07/29/2025 [facility] Comment on above: Expected: 05/30/2025 (Approximate), Expi res: 07/29/2025 Start: 05-30-2025 End: 07-29-2025 Comprehensive metabolic 2000 panel - Serum or Plasma Comprehensive metabolic panel Lab Routine Type 2 diabetes mellitus without complication, with long-term current use of insulin 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, unspecified vessel or lesion type, unspecified whether [place] or transplanted heart (CMS/HCC) Hypertension, unspecified type (CMS/HCC) Mixed hyperlipidemia (CMS/HCC) Stage 3a chronic kidney disease (HCC) (CMS/HCC) Type 2 diabetes mellitus with hyperglycemia, without long-term current use of insulin (CMS/HCC) Erectile dysfunction, unspecified erectile dysfunction type Expected: 05/30/2025 (Approximate), Expires: 07/29/2025 [facility] Comment on above: Expected: 05/30/2025 (Approximate), Expi res: 07/29/2025 Start: 05-30-2025 End: 07-29-2025 Hemoglobin A1c/Hemoglobin.total in Blood Hemoglobin A1c Lab Routine Type 2 diabetes mellitus without complication, with long-term current use of insulin Expected: 05/30/2025 (Approximate), Expires: 07/29/2025 [facility] Comment on above: Expected: 05/30/2025 (Approximate), Expi res: 07/29/2025 Start: 05-30-2025 End: 07-29-2025 Microalbumin/Creatinine panel in random Urine Microalbumin / creatinine urine ratio Lab Routine Type 2 diabetes mellitus without complication, with long-term current use of insulin Expected: 05/30/2025 (Approximate), Expires: 07/29/2025 [facility] Work Phone: Comment on above: Expected: 05/30/2025 (Approximate), Expi res: 07/29/2025 Start: 05-25-2025 Hemoglobin A1c measurement Diabetes: Hemoglobin A1C [facility] Start: 05-05-2025 End: 06-03-2025 Thyrotropin [Units/volume] in Serum or Plasma TSH Lab Routine Hypothyroidism, unspecified type Expected: 05/05/2025 (Approximate), Expires: 06/03/2025 [facility] Comment on above: Expected: 05/05/2025 (Approximate), Expi res: 06/03/2025 Start: 05-05-2025 End: 06-03-2025 Thyroxine (T4) free [Mass/volume] in Serum or Plasma T4, free Lab Routine Hypothyroidism, unspecified type Expected: 05/05/2025 (Approximate), Expires: 06/03/2025 [facility] Comment on above: Expected: 05/05/2025 (Approximate), Expi res: 06/03/2025 Start: 05-05-2025 End: 06-03-2025 Triiodothyronine (T3) [Mass/volume] in Serum or Plasma T3 Lab Routine Hypothyroidism, unspecified type Expected: 05/05/2025 (Approximate), Expires: 06/03/2025 [facility] Comment on above: Expected: 05/05/2025 (Approximate), Expi res: 06/03/2025 Start: 05-04-2025 End: 05-04-2026 XR Knee - right 3 Views [facility] Work Phone: Comment on above: Expected: 05/04/2025, Expires: Start: 05-04-2025 End: 05-04-2025 Patient encounter procedure 05/04/2025 10:40 AM EDT Office Visit [facility] [address] [place] [id number] Tom Field DO [address] [place] [address] Arrived [facility] Comment on above: Arrived Start: 04-25-2025 End: 04-25-2025 Patient encounter procedure 04/25/2025 10:15 AM EDT Procedure Visit [facility] [address] [place] [phone] Sarah Connell DPM [address] [place] [address] [facility] Start: 04-06-2025 End: 04-06-2025 Patient encounter procedure 04/06/2025 1:30 PM EDT Office Visit [facility] [address] [place] [phone] Silvestre Cooley MD [address] [place] [address] [facility] Start: 03-26-2025 Urine screening for protein Diabetes: Urine Protein Screening [facility] Healthcare Start: 03-23-2025 End: 03-23-2025 Patient encounter procedure 03/23/2025 10:00 AM EDT Office Visit KRISTY SIL[facility] [address] [place] [phone] Hillary Wilhelm PA [address] [place] [address] KRISTY SIL[facility] Start: 03-03-2025 End: 03-03-2025 Patient encounter procedure 03/03/2025 8:40 AM EDT Office Visit KRISTY SILVA [address] [place] [phone] Hillary Wilhelm PA [address] [place] [address] KRISTY SILVA Start: 03-01-2025 End: 03-01-2025 Patient encounter procedure [facility] 230 Comment on above: Arrived Start: 02-22-2025 [...] unspecified vessel or lesion type, unspecified whether [place] or transplanted heart (CMS/HCC) Hypertension, unspecified type (CMS/HCC) Mixed hyperlipidemia (CMS/HCC) Stage 3a chronic kidney disease (HCC) (CMS/HCC) Type 2 diabetes mellitus with hyperglycemia, without long-term current use of insulin (CMS/HCC) Raynaud's disease without gangrene Expected: 02/22/2025 (Approximate), Expires: 10/25/2025 [facility] Comment on above: Expected: 02/22/2025 (Approximate), [...] unspecified vessel or lesion type, unspecified whether [place] or transplanted heart (CMS/HCC) Hypertension, unspecified type (CMS/HCC) Mixed hyperlipidemia (CMS/HCC) Stage 3a chronic kidney disease (HCC) (CMS/HCC) Type 2 diabetes mellitus with hyperglycemia, without long-term current use of insulin ([facility] Raynaud's disease without gangrene Expected: 02/22/2025 (Approximate), Expires: 10/25/2025 [facility] Comment on above: Expected: 02/22/2025 (Approximate), Expi res: 10/25/2025 Start: 02-22-2025 End: 10-25-2025 Hemoglobin A1c/Hemoglobin.total in Blood Hemoglobin A1c Lab Routine Type 2 diabetes mellitus with diabetic chronic kidney disease ([facility]) Expected: 02/22/2025 (Approximate), Expires: 10/25/2025 [facility] Comment on above: Expected: 02/22/2025 (Approximate), Expi res: 10/25/2025 Start: 02-22-2025 End: 10-25-2025 Lipid 1996 panel - Serum or Plasma Lipid panel Lab Routine 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, unspecified vessel or lesion type, unspecified whether [place] or transplanted heart ([facility]) Hypertension, unspecified type ([facility]) Expected: 02/22/2025 (Approximate), Expires: 10/25/2025 [facility] Comment on above: Expected: 02/22/2025 (Approximate), Expi res: 10/25/2025 Start: 02-22-2025 End: 10-25-2025 Microalbumin/Creatinine panel in random Urine Microalbumin / creatinine urine ratio Lab Routine Type 2 diabetes mellitus with diabetic chronic kidney disease ([facility]) Expected: 02/22/2025 (Approximate), Expires: 10/25/2025 [facility] Work Phone: Comment on above: Expected: 02/22/2025 (Approximate), Expi res: 10/25/2025 Start: 02-01-2025 End: 02-01-2025 Patient encounter procedure [facility] Comment on above: Arrived Start: 01-18-2025 End: 01-18-2025 Patient encounter procedure [facility] Comment on above: Arrived Start: 01-17-2025 Hemoglobin A1c measurement Diabetes: Hemoglobin A1C [facility] Start: 01-03-2025 [facility] Start: 01-03-2025 Neurostimulation of cranial nerve OR Inspire Hypoglossal Nerve Stim Imp (Not Applicable) [facility] Start: 12-29-2024 End: 12-29-2024 Patient encounter procedure [facility] [place] [address] Start: 11-03-2024 Medicare Annual Wellness (AWV) Medicare Annual Wellness (AWV) [facility] Start: 11-01-2024 End: 11-01-2024 Patient encounter procedure 11/01/2024 8:40 AM EST Office Visit [facility] [place] [facility] [address] [place] [phone] Fer García, PROOF MACHINE OPERATOR [address] [place] [address] [facility] [place] [facility] Start: 10-25-2024 End: 10-25-2024 Patient encounter procedure [facility] 230 Comment on above: Type 2 [...] type (CMS/HCC) Expected: 10/18/2024 (Approximate), Expires: 06/18/2025 [facility] Comment on above: Expected: 10/18/2024 (Approximate), Expi res: 06/18/2025 Start: 10-18-2024 End: 06-18-2025 Comprehensive metabolic 2000 panel - Serum or Plasma Comprehensive metabolic panel Lab Routine 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, unspecified vessel or lesion type, unspecified whether [place] or transplanted heart (CMS/HCC) Type 2 diabetes mellitus without complication, with long-term current use of insulin (CMS/HCC) 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) Expected: 10/18/2024 (Approximate), Expires: 06/18/2025 [facility] Comment on above: Expected: 10/18/2024 (Approximate), Expi res: 06/18/2025 Start: 10-18-2024 End: 06-18-2025 Hemoglobin A1c/Hemoglobin.total in Blood Hemoglobin A1c Lab Routine Type 2 diabetes mellitus without complication, with long-term current use of insulin ([facility]) Expected: 10/18/2024 (Approximate), Expires: 06/18/2025 [facility] Comment on above: Expected: 10/18/2024 (Approximate), Expi res: 06/18/2025 Start: 10-18-2024 End: 06-18-2025 Microalbumin/Creatinine panel in random Urine Microalbumin / creatinine urine ratio Lab Routine 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, unspecified vessel or lesion type, unspecified whether [place] or transplanted heart ([facility]) Type 2 diabetes mellitus without complication, with long-term current use of insulin ([facility]) Diabetic nephropathy associated with type 2 diabetes mellitus (HCC) ([facility]) Hypertension, unspecified type ([facility]) Expected: 10/18/2024 (Approximate), Expires: 06/18/2025 [facility] Healthcare Work Phone: Comment on above: Expected: 10/18/2024 (Approximate), Expi res: 06/18/2025 Start: 10-05-2024 End: 10-05-2024 Patient encounter procedure [facility] [place] Comment on above: Arrived Start: 09-29-2024 End: 09-29-2024 Patient encounter procedure [facility] Comment on above: Arrived Start: 09-27-2024 End: 09-27-2024 Patient encounter procedure 09/27/2024 10:20 AM EST Office Visit [facility] [address] [place] [phone] Tom Field DO [address] [place] [address] [facility] 230 Start: 09-14-2024 Hemoglobin A1c measurement Diabetes: Hemoglobin A1C [facility] Start: 09-07-2024 End: 09-07-2024 Patient encounter procedure 09/07/2024 10:00 AM EST Office Visit [facility] [place] [facility] [address] [facility] [address] [place] [phone] Fer García, PROOF MACHINE OPERATOR [address] [place] [address] [facility] Start: 09-06-2024 End: 09-06-2024 Patient encounter [facility] Comment on above: Arrived Start: 08-10-2024 End: 08-10-2024 Patient encounter procedure 08/10/2024 9:30 AM EDT Office Visit [facility] [place] [address] [place] [phone] Sunny Vasquez, DO [address] [place] [address] [facility] [place] Start: 06-28-2024 End: 06-28-2024 Patient encounter procedure 06/28/2024 8:00 AM EDT Procedure Visit [facility] [address] [place] [phone] Sarah Connell DPM [address] [place] [address] [facility] Start: 06-18-2024 End: 06-18-2024 Patient encounter procedure 06/18/2024 12:20 PM EDT Office Visit [facility] [address] [place] [phone] Tom Field, DO [address] [place] [address] Arrived [facility] 230 Comment on above: Arrived Start: 06-15-2024 End: 06-15-2024 Patient encounter procedure [facility] [place] [facility] Comment on above: Arrived Start: 06-13-2024 Influenza vaccination Influenza Vaccine (#1) [facility] Start: 06-01-2024 Ankle brachial pressure index [facility] Start: 05-03-2024 Hemoglobin A1c measurement Diabetes: Hemoglobin A1C [facility] Start: 02-09-2024 [facility] Start: 10-21-2022 FUV, Provider: Poli Mercado, Status: Pen, Time: 9:45 AM FUV, Provider: Poli Mercado, Status: Pen, Time: 9:45 AM -[facility] Work Phone: Start: 05-27-2022 FUV, Provider: Poli Mercado, Status: Pen, Time: 11:00 AM FUV, Provider: Poli Mercado, Status: Pen, Time: 11:00 AM [employer] [facility] Work Phone: Start: 05-02-2022 FUV, Provider: Poli Mercado, Status: Pen, Time: 10:30 AM FUV, Provider: Poli Mercado, Status: Pen, Time: 10:30 AM [employer] [facility] Work Phone: Start: 09-05-2021 FUV, Provider: Poli Mercado, Status: Pen, Time: 10:00 AM FUV, Provider: Poli Mercado, Status: Pen, Time: 10:00 AM [employer] [facility] Work Phone: Dermatopathology exam Dermatopat hology exam Pathology and Cytology Timed Neoplasm of unspecified behavior of bone, soft tissue, and skin Release Upon Ordering for 1 Occurrences starting 02/01/2025 [facility] Healthcare Work Phone: Comment on above: Release Upon Ordering for 1 Occurrences starting 02/01/2025 Patient Education [facility] Work Phone: Patient referral [facility] Work Phone: [facility] Immunizations Immunization Date Immunization Notes Care Provider Oscar leon 10-21-2024 COVID-19 (PFIZER) 12Y and older eBnedicto Field DO Work Phone: [facility] 08-12-2024 Seasonal trivalent influenza vaccine, adjuvanted, preservative free Dwight Anand MA [facility] 08-12-2024 influenza virus vacc ine, unspecified formulation Sarah Connell DPM Work Phone: [facility] 06-22-2024 RSV, recombinant, protein subunit RSVpreF, adjuvant reconstitu, 120mcg/0.5mL, PF (Arexvy) Sunny Vasquez DO Work Phone: [facility] 09-14-2023 COVID-19 (PFIZER) 12Y and older Benedicto Field DO Work Phone: [facility] 08-27-2023 Influenza, Seasonal, Quadrivalent, Adjuvanted Tom Field DO Work Phone: [facility] 08-27-2023 influenza virus vacc ine, unspecified formulation Tom Field DO Work Phone: [facility] 10-24-2022 Pneumococcal Conjuga te PCV 20 Tom Field DO Work Phone: [facility] 08-24-2022 Moderna Bivalent Conrda ster Vaccination Tom Field DO Work Phone: [facility] 08-24-2022 Pfizer COVID-19 Vac Bivalent 30 MCG/0.3ML Intramuscular Suspension Colmesneil C Kodz Work Phone: [facility] 07-22-2022 Influenza, High-dose Seasonal, Quadrivalent, Preservative Free Tom Field DO Work Phone: [facility] 07-18-2022 influenza, injectabl e, quadrivalent, contains preservative Colmesneil C Kodz Work Phone: [facility] Work Phone: 01-24-2022 Moderna COVID-19 Vac cine 100 MCG/0.5ML Intramuscular Suspension Colmesneil C Kodz Work Phone: [facility] 08-09-2021 Moderna COVID-19 Vac cine 100 MCG/0.5ML Intramuscular Suspension Colmesneil C Kodz Work Phone: [facility] 2021 Fluzone High-Dose Quadrivalent 0.7 ML Intramuscular Suspension Prefilled Syringe Colmesneil C Kodz Work Phone: [facility] Work Phone: 2021 influenza, high dose seasonal, preservative-free Tom Field DO Work Phone: [facility] 12-05-2020 Moderna COVID-19 Vac cine 100 MCG/0.5ML Intramuscular Suspension Colmesneil C Kodz Work Phone: [facility] 11-07-2020 Moderna COVID-19 Vac cine 100 MCG/0.5ML Intramuscular Suspension Ashlee C Kodz Work Phone: [facility] 10-04-2020 zoster vaccine recombinant Ashlee C Kodz Work Phone: [facility] Work Phone: 08-04-2020 zoster vaccine recombinant Ashlee C Kodz Work Phone: [facility] Work Phone: 2020 Fluad Quadrivalent 0 .5 ML Intramuscular Prefilled Syringe Ashlee C Kodz Work Phone: [facility] Work Phone: 07-28-2019 influenza, high dose seasonal, preservative-free Poli Mercado MD -[facility] Work Phone: Comment on above: Series: 07-28-2019 influenza, injectabl e, quadrivalent, preservative free Tom Field DO Work Phone: [facility] 08-25-2018 pneumococcal polysaccharide vaccine, 23 valent Ashlee C Kodz Work Phone: [facility] 07-13-2018 influenza, high dose seasonal, preservative-free Ashlee C Kodz Work Phone: [facility] Work Phone: 07-13-2018 influenza, injectabl e, quadrivalent, preservative free Tom Myraftan DO Work Phone: [facility] 07-28-2017 influenza, high dose seasonal, preservative-free Colmesneil C Kodz Work Phone: [facility] Work Phone: 07-28-2017 influenza, injectabl e, quadrivalent, preservative free Tom Kaftan DO Work Phone: [facility] 07-26-2015 influenza, high dose seasonal, preservative-free Ashlee C Kodz Work Phone: [facility] Work Phone: 07-26-2015 influenza, injectabl e, quadrivalent, preservative free Tom Myraftan DO Work Phone: [facility] 09-23-2014 tetanus toxoid, redu priyank diphtheria toxoid, and acellular pertussis vaccine, adsorbed Tom Field DO Work Phone: [facility] 07-21-2014 influenza, high dose seasonal, preservative-free Poli Mercado MD [facility] Work Phone: Comment on above: Series: 11-04-2012 pneumococcal polysaccharide vaccine, 23 valent Poli Mercado MD [facility] Work Phone: Comment on above: Series: 10-09-2012 zoster vaccine, live Poli Mercado MD -[facility] Work Phone: Comment on above: Series: Payers Date Payer Category Payer Self-pay [id number] 2022 Unknown 2008 Medicare 2008 Private Health Insurance 1959 Medicare [id number] 1959 Unknown [id number] 1945 Unknown [id number] 2.16.840.1.125409.3.579.2.356 1945 Unknown [id number] 2.16.840.1.612321.3.579.2.356 1945 Unknown [id number] 2.16.840.1.291736.3.579.2.159 1945 Unknown [id number] 2.16.840.1.175524.3.579.2.159 1945 Unknown [id number] 2.16.840.1.506916.3.579.2.593 1945 Unknown [id number] 2.16.840.1.143916.3.579.2.593 1945 Unknown [id number] 2.16.840.1.281283.3.579.2.593 1945 Unknown [id number] 2.16.840.1.474212.3.579.2.593 1945 Unknown [id number] 2.16.840.1.704432.3.579.2.593 1945 Unknown [id number] 2.16.840.1.542411.3.579.2.593 1945 Unknown [id number] 2.16.840.1.199976.3.579.2.593 1945 Unknown [id number] 2.16.840.1.092681.3.579.2.593 1945 Unknown [id number] 2.16.840.1.978140.3.579.2.593 1945 Unknown [id number] 2.16.840.1.476935.3.579.2.593 1945 Unknown [id number] 2.16.840.1.950079.3.579.2.593 1945 Unknown [id number] 2.16.840.1.292214.3.579.2.593 1945 Unknown [id number] 2.16.840.1.120189.3.579.2.159 1945 Unknown [id number] 2.16.840.1.073447.3.579.2.159 1945 Unknown [id number] 2.16.840.1.628132.3.579.2.159 1945 Unknown [id number] 2.16.840.1.372678.3.579.2.125 9 1945 Unknown [id number] 2.16.840.1.493642.3.579.2.125 9 1945 Unknown [id number] 2.16.840.1.723715.3.579.2.125 9 1945 Unknown [id number] 2.16.840.1.597093.3.579.2.125 9 1945 Unknown [id number] 2.16.840.1.883320.3.579.2.125 9 1945 Unknown [id number] 2.16.840.1.835298.3.579.2.125 9 1945 Unknown [id number] 2.16.840.1.602970.3.579.2.125 9 1945 Unknown [id number] 2.16.840.1.662961.3.579.2.125 9 1945 Unknown [id number] 2.16.840.1.857134.3.579.2.125 9 1945 Unknown [id number] 2.16.840.1.044554.3.579.2.125 9 1945 Unknown [id number] 2.16.840.1.747479.3.579.2.125 9 1945 Unknown [id number] 2.16.840.1.158467.3.579.2.125 9 1945 Unknown [id number] 2.16.840.1.769860.3.579.2.125 9 1945 Unknown [id number] 2.16.840.1.290455.3.579.2.125 9 1945 Unknown [id number] 2.16.840.1.490685.3.579.2.125 9 1945 Unknown [id number] 2.16.840.1.069121.3.579.2.125 9 1945 Unknown [id number] 2.16.840.1.406749.3.579.2.125 9 1945 Unknown [id number] 2..840.1.274353.3.579.2.125 9 1945 Unknown [id number] 2.16.840.1.127760.3.579.2.125 9 1945 Unknown [id number] 2..840.1.741261.3.579.2.125 9 1945 Unknown [id number] 2..840.1.442272.3.579.2.125 9 1945 Unknown [id number] 2..840.1.586696.3.579.2.125 9 1945 Unknown [id number] 2.16.840.1.339780.3.579.2.125 9 Medicare Medicare Outpatient [id number] Unknown [id number] 2.16.840.1.803289.3.579.2.531 Unknown [id number] 2.16.840.1.047500.3.579.2.531 Unknown [id number] 2.16.840.1.492118.3.579.2.531 Unknown [id number] 2.16.840.1.271563.3.579.2.531 Unknown [id number] 2.16.840.1.919583.3.579.2.531 Unknown [id number] 2.16.840.1.719282.3.579.2.531 Unknown [id number] 2.16.840.1.020337.3.579.2.531 Unknown [id number] 2.16.840.1.154542.3.579.2.531 Unknown [id number] 2.16.840.1.474456.3.579.2.531 Unknown [id number] 2.16.840.1.191147.3.579.2.531 Unknown [id number] 2.16.840.1.875154.3.579.2.531 Social History Date Type Detail Facility Start: 03-17-2024 End: 03-25-2024 Never Drank Alcohol Never Drank Alcohol [facility] Comment on above: Quit 1987 (1PPD x 20 years); Start: 03-17-2024 End: 03-25-2024 Sex Assigned At [facility] Start: 06-04-2020 End: 01-04-2025 Tobacco smoking status [facility] Ex-smoker (finding) [facility] Start: 1945 Sex Assigned At Male [facility] Start: 05-15-2023 End: 05-02-2025 Tobacco smoking status [facility] Never smoked tobacco [facility] Start: 05-15-2023 End: 01-04-2025 Tobacco use and exposure Smokeless tobacco non-user [facility] Start: 06-30-2024 End: 05-04-2025 Alcoholic beverage intake Ex-drinker (finding) [facility] How often do you nee d to have someone help you when you read instructions, pamphlets, or other written material from your doctor or pharmacy [SILS] Rarely [facility] Do you belong to any clubs or organizations such as episcopalian groups, unions, fraternal or athletic groups, or [...] file [facility] Start: 12-21-2024 End: 03-15-2025 Sex Male (finding) [facility] History of tobacco use Current smoker [facility] History of tobacco use Cigarette Smoker [facility] How often do you nee d to have someone help you when you read instructions, pamphlets, or other written material from your doctor or pharmacy [SILS] Rarely [facility] NEGATED: Highlighted row - - [facility] Work Phone: Medical Equipment Procedure Code Equipment [...] Active Start: 02-23-2014 Use daily as directed [id number] Start: 02-02-2024 Goals Date Patient Goal Desired Activity /State Functional Status Date Assessment Result Facility 03-01-2025 Patient Health Questionnaire 2 item (PHQ-2) [Reported] [facility] NEGATED: Highlighted row Functional performance Functional status health issues are not documented Disease -[facility] Work Phone: Mental Status Date Assessment Result Facility NEGATED: Highlighted row Cognitive function [Interpretation] Cognitive status health issues are not documented Disease -[facility] Work Phone: Clinical Notes 02-28-2022 to 05-04-2025 Tom Field, - 05/04/2025 10:40 AM EDYeimi Field, DO - 05/04/2025 10:40 AM EDYeimi Field, DO - 05/04/2025 10:40 AM EDYeimi Field, DO - 05/04/2025 10:40 AM EDT Note Date & Type Note Facility 05-04-2025 History of Presen t illness Narrative Associated Problem(s): Parkinsonism (HCC) Problem is stable, will continue with current treatment plan. Call or return to clinic if any changes occur Associated Problem(s): Hypertension Record Blood Pressures 2-4 times weekly and record. Return with readings at next appointment. Call with readings if sees significant changes Orders: amLODIPine (Norvasc) 5 MG tablet; Take 1 tablet (5 mg) by mouth 1 (one) time each day at the same time Associated Problem(s): Hypothyroid Labs ordered today, will follow up when results available Orders: TSH; Future T4, free; Future T3; Future Associated Problem(s): Orthostatic lightheadedness Reviewed ER notes including labs and imaging. Will lower amlodipine, as pt has lost weight since starting the xigduo and bp is trending lower. Orders: amLODIPine (Norvasc) 5 MG tablet; Take 1 tablet (5 mg) by mouth 1 (one) time each day at the same time Images from the original note were not included. Subjective Patient ID: Ramon Mariee is a 79 y.o. male who presents for ER follow up, SOB. Dyspnea Ramon Mariee is a 79 y.o. male who presents for evaluation of shortness of breath. Occurred approx 2 months ago. Dyspnea has been moderate. Episodes usually occur during little exertion and have been gradually worsening. Associated symptoms include: none. The symptoms are aggravated by exertion, and relieved by rest. Unintentional Weight loss: Pt has lost 13 lbs since last OV. Pt states he is eating a normal diet. Pt states sugars have been running ok. Pt was out of xigduo for a couple days but has the rx now. ER follow up: Seen at [facility] on 05/02 after syncopal episode resulting in a fall while coming into appt. XR and labs were done. Pt states he is overall doing well. Flowsheet Row Patient Outreach from 05/03/2025 in [facility] with Manasa Friday, [employer] Hospital Information ED, Hospital or [facility] Facility Discharge? ED Patient has been contacted within 2 days of being seen in the ED Yes Diagnosis Syncope Discharge Date 05/02/25 Discharged To: Home Setting Discharge [facility] Engagement Call Start Time 1615 Admission Date 05/02/25 Medications Discharge medications reviewed and reconciled from hospital? No [Spouse reported no new medication changes] Is the patient having any side effects they believe may be caused by any medication additions or changes? No Does the patient have all medications ordered at discharge? Not applicable Is the patient taking all medications as directed (includes completed medication regime)? Yes Appointments Does the patient have a primary care provider? Yes Does the patient have any upcoming specialty appointments? No Self Management Patient Teaching Does the patient have access to their discharge instructions? Yes What is the patient's perception of their health status since discharge? Worsening [Pt is having Right knee pain/ issues with it givig out on him while walking.] Is the patient/caregiver able to teach back the hierarchy of who to call/visit for symptoms/problems? PCP, Specialist, Home Health nurse, Urgent Care, ED, 911 Yes Wrap Up Wrap Up Additional Comments XR, Labs done while there. Pt is compaining of right knee issues causing it to give out while walking after ER visit. Call End Time 1621 Objective There were no vitals taken for this visit. Physical Exam Constitutional: General: He is not [...] normal. Behavior: Behavior normal. Judgment: Judgment normal. 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 Call or return to clinic if any changes occur Hypertension, unspecified type Record Blood Pressures 2-4 times weekly and record. Return with readings at next appointment. Call with readings if sees significant changes Orders: amLODIPine (Norvasc) 5 MG tablet; Take 1 tablet (5 mg) by mouth 1 (one) time each day at the same time Hypothyroidism, unspecified type Labs ordered today, will follow up when results available Orders: TSH; Future T4, free; Future T3; Future Orthostatic lightheadedness Reviewed ER notes including labs and imaging. Will lower amlodipine, as pt has lost weight since starting the xigduo and bp is trending lower. Orders: amLODIPine (Norvasc) 5 MG tablet; Take 1 tablet (5 mg) by mouth 1 (one) time each day at the same time Fall, sequela Reviewed ER notes including labs and imaging. Pt does seem to be improved. Advised to continue current meds and rtc if problem recurs Orders: XR knee 3 views right; Future Acute pain of right knee Patient advised to return if symptoms worsen and/or persist despite treatment. Orders: XR knee 3 views right; Future documented in this encounter [facility] 04-25-2025 History of Presen t illness Narrative Images from the original note [...] Tom Field DO. Date of Last visit: 03/01/25. No other pedal complaints at this time. Exam: General Examination: GENERAL APPEARANCE: awake, aware of surroundings, in no acute distress FOOT EXAM: 04/25/25 Vascular: DORSALIS PEDIS PULSE: 2/4 bilateral POSTERIOR [...] if problems arise. documented in this encounter [facility] 04-06-2025 History of Presen t illness Narrative Images from the original note were not included. Mohs Surgery Location: Right hinduism Date of biopsy: 02/01/2025 Diagnosis: Squamous Cell Carcinoma, in situ All pertinent medical history, medications, and allergies were reviewed. General Exam: alert, oriented to person, place, and time, normal affect, well appearing A focused exam completed based on patient reported problems, see below: Skin Exam 1. SQUAMOUS CELL CARCINOMA IN SITU (SCCIS) OF SKIN OF RIGHT [place] REGION Right hinduism Poorly defined, erythematous, hyperkeratotic patch at the biopsy site Mohs surgery Consent obtained: written (The rationale for Mohs as well as the risks, benefits, and alternatives. The risks of infection, scarring, bleeding, prolonged wound healing, incomplete removal, allergy to anesthesia or meds, nerve injury, and recurrence were addressed.) [facility] Protocol: Procedure explained and questions answered to patient or proxy's satisfaction: Yes Test results available and properly labeled: Yes Pathology report reviewed: Yes Photo or diagram used for site identification: Yes Site/side marked: Yes Anticoagulation: Is the patient taking prescription anticoagulant and/or aspirin prescribed/recommended by a physician? Yes (81 mg ASA) Was the anticoagulation regimen changed prior to Mohs? No Anesthesia: Anesthesia method: local infiltration Local anesthetic: lidocaine 1% WITH epi and sodium bicarbonate Procedure Details: Biopsy accession number: [id number] Biopsy lab: [facility] Date of biopsy: 02/01/2025 Frozen section biopsy performed: Yes Specimen debulked: No Pre-Op diagnosis: squamous cell carcinoma SCC subtype: in situ MohsAIQ Surgical site (if tumor spans multiple areas, please select predominant area): hinduism Surgery side: right Surgical site (from skin exam): Right hinduism Pre-operative length (cm): 1.8 Pre-operative width (cm): 1.8 Indications for Mohs surgery: anatomic location where tissue conservation is critical Other indications for Mohs surgery: tumor size is greater than 1 cm on the face Previously treated? No Mohs Appropriate Use Criteria Score: 8 Details of micrographic surgery: Mohs accession number: [id number] Micrographic Surgery Details: Post-operative length (cm): 3.1 Post-operative width (cm): 1.8 Number of Mohs stages: 1 Post surgery depth of defect: dermis Stage 1 Comments: The area was prepped with Betadine, draped in a sterile fashion, and infiltrated with local anesthetic. Sterile technique was used throughout the procedure. The marked area of clinical tumor with a small rim of clinically normal surrounding skin was removed using Mohs technique with beveled edges. Hash mar were placed for orientation of the specimen. Hemostasis was achieved with electrodessication. After hemostasis, the defect was measured and recorded, a temporary sterile dressing was placed over the wound, and the patient was escorted to the waiting area. The specimen was oriented, mapped, and if necessary, divided into sections. A Mohs map was prepared. The specimen was placed in a labeled paddy dish and was taken to the Mohs lab where it was chromacoded and processed. Mohs sections were prepared with serial tissue sections, stained, and evaluated by Dr. Cooley for interpretation of deep and peripheral margins. The Mohs map was marked accordingly. Amount of lidocaine used: 4.0 cc Estimated blood loss: <1.0 mL Defect size: 3.1 x 1.8 cm Number of blocks per stage: 2 Number of positive blocks: 0. Tumor free margins were obtained and the Mohs procedure was considered complete. Tumor features identified on Mohs section: no tumor identified Depth of tumor invasion after stage: dermis Patient tolerance of procedure: tolerated well, no immediate complications Reconstruction: Was the defect reconstructed?: No Antibiotics: Were antibiotics given on the day of surgery?: No Mohs Post Operative Type of repair: None. Wound to heal by secondary intention. Wound Care: A dressing was placed on the surgical wound. Post-operative instructions were given in writing and were reviewed with the patient. A follow-up appointment was made, and instructions were given to follow-up sooner if necessary. Next visit: 02/01/2026 documented in this encounter [facility] 03-15-2025 Evaluation note Diagnosis Onset Date Resolution Coronary artery disease involving [place] coronary artery of [place] heart wi acute March 15, 2025 10:11am S/P placement of cardiac pacemaker acute March 15, 2025 10:11am S/P PTCA (percutaneous transluminal coronary angioplasty) acute March 15, 2025 10:11am Sick sinus syndrome acute March 15, 2025 10:11am [facility] Work Phone: [phone] 246-320505-20-2025 History of Present illness Narrative* BERE Montenegro - 03/01/2025 9:20 AM EDT Images from the original note were not included. Subjective Chief Complaint: Ramon Mariee is an 79 y.o. male here for [...] at the same time omega-3, EPA+DHA, (Super Sieper-3) 1000 MG capsule 1 capsule sildenafil (Viagra) [...] tablet 1 tablet 1 tablet Oral Daily withbreakfast Tom Field DO Review of Systems All other systems reviewed and are negative. List of current healthcare providers: Patient Care Team: Tom Field DO as PCP - General (Family Medicine) Tom Field DO as PCP - ACO Reach Lili Gonsales MD as Referring Physician (Sleep Medicine) Sunny Vasquez DO (Otolaryngology) Eusebio Guerin MD as Referring Physician (Neurology) BERE Quesada as Physician [employer] [facility] (Neurology) Medicare Annual Visit Over the past [...] Not done Cognitive Screening Three Word Registration: Banana, [place], Chair Clock Drawing: Normal Clock - 2 Three Word Recall: 2/3 words correct - 2 Total Score (0-5 Points): 4 Pain Assessment Pain Score: 9 Advance Care Planning Do you have a living will?: Yes Do you have a medical power of nutrition tech?: Yes Who is your medical power of nutrition tech?: Keri daughter Objective BP 100/62 Pulse 63 [...] Diagnosis Benign prostatic hyperplasia Coronary artery disease ([facility]) Diabetic renal disease ([facility]) Exercise-induced angina ([facility]) Heart failure Hyperlipidemia ([facility] Hypothyroid ([facility] Obstructive sleep apnea syndrome Hypertension ([facility]) Peripheral vascular disease ([facility]) Sick sinus syndrome ([facility]) Stage 3a chronic kidney disease (HCC) ([facility]) Stented coronary artery Type 2 diabetes mellitus with hyperglycemia, without long-term current use of insulin ([facility]) Vitamin D deficiency Generalized osteoarthritis DDD (degenerative disc disease), lumbosacral Parkinsonism ([facility]) PAC (premature atrial contraction) S/P placement of cardiac pacemaker S/P PTCA (percutaneous transluminal coronary angioplasty) Complication of ventilation therapy Myocardial infarction ([facility]) Dehydration Continue with care team regarding [...] an education packet regarding healthy living and maintenanceof a healthy weight. The BMI will continue to be monitored at routine office visits as well. Major risk factors for chronic disease including family history were discussed. documented in this encounterSaint [facility] Health [id number] History of Present illness Narrative* Tom Field DO - 03/01/2025 9:00 AM EDT Images from the original note were not included. SUBJECTIVE: Ramon Mariee is a 79 y.o. male presents with [...] Diagnosis Benign prostatic hyperplasia Coronary artery disease ([facility]) Diabetic renal disease ([facility]) Exercise-induced angina ([facility]) Heart failure Hyperlipidemia ([facility] Hypothyroid ([facility]) Obstructive sleep apnea syndrome Hypertension ([facility]) Peripheral vascular disease ([facility]) Sick sinus syndrome ([facility]) Stage 3a chronic kidney disease (HCC) ([facility]) Stented coronary artery Type 2 diabetes mellitus with hyperglycemia, without long-term current use of insulin ([facility]) Vitamin D deficiency Generalized osteoarthritis DDD (degenerative disc disease), lumbosacral Parkinsonism ([facility]) PAC (premature atrial contraction) S/P placement of cardiac pacemaker S/P PTCA (percutaneous transluminal coronary angioplasty) Complication of ventilation therapy Myocardial infarction ([facility]) Dehydration Past Medical History: Past Medical History: Diagnosis Date Arthritis Diabetes ([facility]) Eczema Heart attack ([facility]) Hypercholesteremia ([facility]) Hypertension ([facility]) Family History: Family History Problem Relation Name Age of Onset Cancer Mother Vicky Mariee Heart disease Father Pastor Mariee Diabetes Sister Morelia Mariee Allergies: Allergies Allergen Reactions Hydrocodone Other Reaction(s): [...] min Stress: No Stress Concern Present (03/25/2024) [employer] - Occupational Stress Questionnaire Feeling of Stress : Not at all Recent Concern: Stress - Stress Concern Present (03/17/2024) [employer] - Occupational Stress Questionnaire Feeling of Stress : To some extent Social Connections: Moderately Integrated (03/25/2024) Social Connection and Isolation Panel [NHANES] Frequency of Communication with Friends and Family: Three times a week Frequency of Social Gatherings with Friends and Family: Not on file Attends Tenriism Services: More than 4 times per year [...] unspecified vessel or lesion type, unspecified whether [place] or transplanted heart ([facility]) Problem is stable, will continue with current [...] - Hemoglobin A1c; Future Hypertension, unspecified type ([facility]) Record Blood Pressures 2-4 times weekly and record. Return with readings at next appointment. Call with readings if sees significant changes - Comprehensive metabolic panel; Future - CBC and differential; Future Mixed hyperlipidemia ([facility]) - Comprehensive metabolic panel; Future - CBC and differential; Future Stage 3a chronic kidney disease (HCC) ([facility]) Reviewed labs and/or imaging at today. Will continue current treatment regimen and follow up at next scheduled visit unless problems arise. - Comprehensive metabolic panel; Future - CBC and differential; Future Type 2 diabetes mellitus with hyperglycemia, without long-term current use of insulin ([facility]) - Comprehensive metabolic panel; Future - [...] Continuous Glucose Sensor (FreeStyle Lillian 2 Sensor) [facility], 1 Units every 14 (fourteen) days, Disp: 2 each, Rfl: 11 insulin glargine (Lantus SoloStar) 100 UNIT/ML pen, INJECT 10 UNITS UNDER THE SKIN EVERY DAY AT BEDTIME, Disp: 15 mL, Rfl: 3 insulin pen needle (B-D UF III MINI PEN NEEDLES) 31G x 5 mm [facility], Use daily as directed, Disp: 100 each, Rfl: 11 lisinopril 5 MG tablet, TAKE 1 TABLET BY MOUTH EVERY DAY, Disp: 90 tablet, Rfl: 3 metFORMIN XR (Glucophage-XR) 500 MG 24 hr tablet, TAKE 2 TABLETS BY MOUTH IN THE MORNING AND BEFOREBEDTIME*DO NOT CRUSH,CHEW,OR SPLIT*, Disp: 180 tablet, Rfl: 1 metoprolol succinate XL (Toprol-XL) 25 MG 24 hr tablet, Take 1 tablet (25 mg) by mouth Daily, Disp:90 tablet, Rfl: 3 mirabegron ER (Myrbetriq) 50 MG 24 hr tablet, Take 50 mg by mouth 1 (one) time each day at the sametime, Disp: , Rfl: omega-3, EPA+DHA, (Super Sieper-3) 1000 MG capsule, 1 capsule, Disp: , [...] 30 tablet, Rfl: 0 documented in this encounterSaint Joseph Health [id number] Telephone encounter Note* Telephone Encounter - Adwoa Luis MA - 02/07/2025 8:04 AM EDT Please advise, thank you. [facility] [id number] Miscellaneous Notes* Telephone Encounter - Adwoa Luis MA - 02/07/2025 8:04 AM EDT Please advise, thank you. documented in this encounterSaint Joseph Health [id number] History of Present illness Narrative* Hetal Davies MD - 02/01/2025 9:00 AM EDT Images from the original note were not [...] benign pigmented lesions that occur on sun-exposed andsun-damaged skin. No treatment is necessary. Recommended regular [...] Next Visit: 1 year documented in this encounterSaint Joseph Health [id number] History of Present illness Narrative* Sarah Connell DPM - 01/18/2025 11:30 AM EDT Images from the original note were not [...] needed if problems arise. documented in this encounterSaint Joseph Health [id number] History of Present illness Narrative* Tom Field, DO - 10/25/2024 10:20 AM EST Images from the original note were not included. SUBJECTIVE: Ramon Mariee is a 79 y.o. male presents with [...] min Stress: No Stress Concern Present (03/25/2024) [employer] - Occupational Stress Questionnaire Feeling of Stress : Not at all Recent Concern: Stress - Stress Concern Present (03/17/2024) [employer] - Occupational Stress Questionnaire Feeling of Stress : To some extent Social Connections: Moderately Integrated (03/25/2024) Social Connection and Isolation Panel [NHANES] Frequency of Communication with Friends and Family: Three times a week Frequency of Social Gatherings with Friends and Family: Not on file Attends Tenriism Services: More than 4 times per year [...] unspecified vessel or lesion type, unspecified whether [place] or transplanted heart ([facility]) Problem is stable, will continue with current treatment plan. Call or return to clinic if any changes occur - Lipid panel; Future - Comprehensive metabolic panel; Future - CBC and differential; Future Type 2 diabetes mellitus with diabetic chronic kidney disease ([facility] Labs ordered today, will follow up when results available - Microalbumin / creatinine urine ratio; Future - Comprehensive metabolic panel; Future - CBC and differential; Future - Hemoglobin A1c; Future Chronic kidney disease, stage 3b (HCC) ([facility]) - Comprehensive metabolic panel; Future - CBC and differential; Future Sick sinus syndrome ([facility]) - Comprehensive metabolic panel; Future - CBC and differential; Future Hypertensive heart disease with heart failure ([facility]) Record Blood Pressures 2-4 times weekly and record. Return with readings at next appointment. Call with readings if sees significant changes - Comprehensive metabolic panel; Future - CBC and differential; Future Hypertension, unspecified type ([facility]) - Lipid panel; Future - Comprehensive metabolic panel; Future - CBC and differential; Future Mixed hyperlipidemia ([facility]) - Comprehensive metabolic panel; Future - CBC and differential; Future Stage 3a chronic kidney disease (HCC) ([facility] Labs ordered today, will follow up when results available - Comprehensive metabolic panel; Future - CBC and differential; Future Type 2 diabetes mellitus with hyperglycemia, without long-term current use of insulin ([facility]) - Comprehensive metabolic panel; Future - CBC [...] Continuous Glucose Sensor (FreeStyle Lillian 2 Sensor) mis, 1 Units every 14 (fourteen) days, Disp: 2 each, Rfl: 11 insulin glargine (Lantus SoloStar) 100 UNIT/ML pen, INJECT 10 UNITS UNDER THE SKIN EVERY DAY AT BEDTIME, Disp: 15 mL, Rfl: 3 insulin pen needle (B-D UF III MINI PEN NEEDLES) 31G x 5 mm [facility], Use daily as directed, Disp: 100 each, Rfl: 11 lisinopril 5 MG tablet, Take 1 tablet (5 mg) by mouth Daily, Disp: 30 tablet, Rfl: 11 metFORMIN XR (Glucophage-XR) 500 MG 24 hr tablet, TAKE 2 TABLETS BY MOUTH IN THE MORNING AND BEFOREBEDTIME*DO NOT CRUSH,CHEW,OR SPLIT*, Disp: 180 tablet, Rfl: 1 metoprolol succinate XL (Toprol-XL) 25 MG 24 hr tablet, Take 1 tablet by mouth 1 (one) time each day., Disp: , Rfl: mirabegron ER (Myrbetriq) 50 MG 24 hr tablet, Take 50 mg by mouth 1 (one) time each day at the sametime, Disp: , Rfl: omega-3, EPA+DHA, (Super Sieper-3) 1000 MG capsule, 1 capsule, Disp: , Rfl: terbinafine (LamISIL) 250 MG tablet, TAKE 1 TABLET BY MOUTH EVERY DAY, Disp: 90 tablet, Rfl: 0 traMADol (Ultram) 50 MG tablet, Take 1 tablet (50 mg) by mouth every 8 (eight) hours if needed for severe pain, Disp: 30 tablet, Rfl: 0 documented in this encounterSaint Joseph Health [id number] History of Present illness Narrative* Sunny Vasquez DO - 10/05/2024 8:00 AM EST Allergies as of 10/05/2024 - Reviewed 09/29/2024 [...] tablets (1,000 mg) by mouth in the morningand 2 tablets (1,000 mg) before bedtime. Do not crush, chew, or split.., Disp: 180 tablet, Rfl: 1 metoprolol succinate XL (Toprol-XL) 25 MG 24 hr tablet, Take 1 tablet by mouth 1 (one) time each day., Disp: , Rfl: mirabegron ER (Myrbetriq) 50 MG 24 hr tablet, Take 50 mg by mouth 1 (one) time each day at the sametime, Disp: , Rfl: omega-3, EPA+DHA, (Super Sieper-3) 1000 MG capsule, 1 capsule, Disp: , [...] min Stress: No Stress Concern Present (03/25/2024) [employer] - Occupational Stress Questionnaire Feeling of Stress : Not at all Recent Concern: Stress - Stress Concern Present (03/17/2024) [employer] - Occupational Stress Questionnaire Feeling of Stress : To some extent Social Connections: Moderately Integrated (03/25/2024) Social Connection and Isolation Panel [NHANES] Frequency of Communication with Friends and Family: Three times a week Frequency of Social Gatherings with Friends and Family: Not on file Attends Tenriism Services: More than 4 times per year [...] the airway, he has virtually no lateral wallmovement and nearly 100 percent at the level [...] schedule once it is. documented in this encounterSaint Joseph Health [id number] History of Present illness Narrative* Sarah Connell, DPM - 09/29/2024 11:30 AM EST Images from the original note were not [...] needed if problems arise. documented in this [facility]12-16-2024 History of Present illness Narrative* Sunny Vasquez DO - 09/27/2024 10:45 AM EST mmm * Sunny Vasquez DO - 09/27/2024 10:45 AM EST mmm documented in this [facility]12-12-2024 Telephone encounter Note* Telephone Encounter - Dwight Anand MA - 09/23/2024 10:43 AM EST [facility] calls to state that they've set up pt for PT once weekly for the next 9 weeks. [place] [id number] Miscellaneous Notes* Telephone Encounter - Dwight Anand MA - 09/23/2024 10:43 AM EST [facility] calls to state that they've set up pt for PT once weekly for the next 9 weeks. documented in this encounterSaint Joseph Health [id number] History of Present illness Narrative* BERE Valadez - 09/06/2024 10:20 AM EST Subjective Ramon Mariee is a 79 y.o. year old male [...] Review Audit Reviewed by Marcia Self MA ([employer] Tiler) on 09/06/24 at 1026 Medication Order Taking? Sig Documenting Provider Last Dose Status acetaminophen (Tylenol) 500 MG tablet [id number] No Take 1,000 mg by mouth Daily Taking Active amLODIPine (Norvasc) 10 MG tablet [id number] No 1 (one) time each day at the same time. Historical Provider, Taking Active aspirin 81 MG EC tablet [id number] Take 1 tablet (81 mg) by mouth Daily Tom Field DO Active atorvastatin (Lipitor) 20 MG tablet [id number] TAKE 1 TABLET BY MOUTH EVERYDAY AT THE SAME TIME Tom Field DO Active carbidopa-levodopa (Sinemet) 25-100 MG tablet [id number] TAKE 1 TABLET BY MOUTH AT 8AM, NOON, 3PM AND6PM Fer García NP Active Continuous Glucose Sensor (FreeStyle Lillian 2 Sensor) [facility] [id number] No 1 Units every 14 (fourteen) days Tom Field DO Taking Active Continuous Glucose Sensor (FreeStyle Lillian 2 Sensor) [facility] [id number] 1 Units every 14 (fourteen) daysGeorroshni Field DO Active insulin glargine (Lantus SoloStar) 100 UNIT/ML pen [id number] No INJECT 10 UNITS UNDER THE SKIN EVERYDAY AT BEDTIME Tom Field DO Taking Active insulin pen needle (B-D UF III MINI PEN NEEDLES) 31G x 5 mm [facility] [id number] No Use daily as directed Tom Field DO Taking Active lisinopril 5 MG tablet [id number] No Take 1 tablet (5 mg) by mouth Daily oTm Field DO Taking Active metFORMIN XR (Glucophage-XR) 500 MG 24 hr tablet [id number] Take 2 tablets (1,000 mg) by mouth in themorning and 2 tablets (1,000 mg) before bedtime. Do not crush, chew, or split.. Tom Field DOActive metoprolol succinate XL (Toprol-XL) 25 MG 24 hr tablet [id number] No Take 1 tablet by mouth 1 (one) time each day. Historical Provider, Taking Active mirabegron ER (Myrbetriq) 50 MG 24 hr tablet [id number] No Take 50 mg by mouth 1 (one) time each day at the same time Taking Active Misc. Devices (Rollator Ultra-Light) [facility] [id number] No 1 rollator with seat for every day use Néstor Field DO Taking Active omega-3, EPA+DHA, (Super Sieper-3) 1000 MG capsule [id number] No 1 capsule Tom Field DO Taking Active terbinafine (LamISIL) 250 MG tablet [id number] TAKE 1 TABLET BY MOUTH EVERY DAY Sarah Connell DPM Active traMADol (Ultram) 50 MG tablet [id number] Take 1 tablet (50 mg) by mouth [...] not wake feeling rested -currently working on [employer] Review of Systems Constitutional: Positive for fatigue. [...] triceps, wrist extensors, wrist extensors, wrist flexor, ncr operator strength 5/5. LUE Strength deltoid, biceps, triceps, wrist extensors, wrist extensors, wrist flexor, ncr operator strength 5/5. RLE Strength illopsoas, quadriceps, [...] - 79-year-old male who was seen at [facility] on 02/25/2024 with altered mental status and general unwell feeling for approximately 2 weeks. Medical history includes obstructive sleep apnea, diabetes mellitus type 2, hyperlipidemia, coronary artery disease, cellulitis and hypertension. Hehad a CT head and MRI brain that [...] after his hospitalization and was evaluated at [facility] with nonacute CT head and cervical spine that were nonacute. I counseled the patient, and daughter on the diagnosis, prognosis, and possible treatment options. His Sinemet has since been increased to QID to seeif this minimizes off time. He has had increase in freezing episodes and bradykinesia reportedly. Icounseled the patient and family on fall precautions. I discussed the high risk of trauma and debility associated with falls. Patient verbalized understanding. He has a walker that he uses at times. He would likely benefit to repeat PT and ST. 2. LOPEZ - Patient has a CPAP that he does not wear. He followed with Dr Gonsales at [facility]. His will call to schedule an appointment to discuss alternative therapies and/or mask. He is working towards Inspire device. We discussed the affects and risks associated with untreated LOPEZ Evaluation at [facility] in February [address] scan of [...] or sooner if needed documented in this encounterSaint Joseph Health [id number] Telephone encounter Note* Telephone Encounter - Sarah Connell DPM - 08/26/2024 4:32 PM EST Patient's recent lab work in June was normal for LFTs. He can continue with the Lamisil. Rx was sent. [facility] [id number] Miscellaneous Notes* Telephone Encounter - Sarah Connell DPM - 08/26/2024 4:32 PM EST Patient's recent lab work in June was normal for LFTs. He can continue with the Lamisil. Rx was sent. documented in this encounterSaint Joseph Health [id number] Telephone encounter Note* Telephone Encounter - Frankie Cordon LPN - 08/23/2024 10:45 AM EST Rescheduled appt for after labs are completed. [facility] [id number] Miscellaneous Notes* Telephone Encounter - Frankie Cordon LPN - 08/23/2024 10:45 AM EST Rescheduled appt for after labs are completed. * Telephone Encounter - Autumn Gibbons - 08/23/2024 9:51 AM EST Pt's spouse called and wanted to make sure the labs ordered are active and can be done prior to appointment on 09/27. I told her yes they were active. She would like someone to call her to confirm this. documented in this encounterSaint Joseph Health [id number] Telephone encounter Note* Telephone Encounter - Autumn Gibbons - 08/23/2024 9:51 AM EST Pt's spouse called and wanted to make sure the labs ordered are active and can be done prior to appointment on 09/27. I told her yes they were active. She would like someone to call her to confirm this. [facility] [id number] History of Present illness Narrative* Sunny Vasquez, - 08/10/2024 9:30 AM EDT Allergies as of 08/10/2024 - Reviewed 06/30/2024 [...] tablets (1,000 mg) by mouth in the morningand 2 tablets (1,000 mg) before bedtime. Do not crush, chew, or split.., Disp: 180 tablet, Rfl: 1 metoprolol succinate XL (Toprol-XL) 25 MG 24 hr tablet, Take 1 tablet by mouth 1 (one) time each day., Disp: , Rfl: mirabegron ER (Myrbetriq) 50 MG 24 hr tablet, Take 50 mg by mouth 1 (one) time each day at the sametime, Disp: , Rfl: Misc. Devices (Rollator Ultra-Light) misc, 1 rollator with seat for every day use, Disp: 1 each, Rfl: 0 omega-3, EPA+DHA, (Super Sieper-3) 1000 MG capsule, 1 capsule, Disp: , [...] min Stress: No Stress Concern Present (03/25/2024) [employer] [place] [employer] - Occupational Stress Questionnaire Feeling of Stress : Not at all Recent Concern: Stress - Stress Concern Present (03/17/2024) [employer] [place] [employer] - Occupational Stress Questionnaire Feeling of Stress : To some extent Social Connections: Moderately Integrated (03/25/2024) Social Connection and Isolation Panel [NHANES] Frequency of Communication with Friends and Family: Three times a week Frequency of Social Gatherings with Friends and Family: Not on file Attends Tenriism Services: More than 4 times per year [...] ulceration or mass. Normal bilateral true vocal foldmotion is present. Bilateral piriform sinuses and base [...] once we have approval. documented in this encounterSaint Joseph Health [id number] History of Present illness Narrative* Sarah Connell DPM - 06/30/2024 3:45 PM EDT Images from the original note were not [...] needed if problems arise. documented in this encounterSaint Joseph Health CenterObhwgjoyww63-21-1136 History of Present illness Narrative* Tom Field DO - 06/18/2024 12:20 PM EDT Images from the original note were not included. SUBJECTIVE: Ramon Mariee is a 78 y.o. male presents with [...] min Stress: No Stress Concern Present (03/25/2024) [employer] [place] [employer] - Occupational Stress Questionnaire Feeling of Stress : Not at all Recent Concern: Stress - Stress Concern Present (03/17/2024) [employer] [place] [employer] - Occupational Stress Questionnaire Feeling of Stress : To some extent Social Connections: Moderately Integrated (03/25/2024) Social Connection and Isolation Panel [NHANES] Frequency of Communication with Friends and Family: Three times a week Frequency of Social Gatherings with Friends and Family: Not on file Attends Tenriism Services: More than 4 times per year [...] unspecified vessel or lesion type, unspecified whether [place] or transplanted heart ([facility]) Problem is stable, will continue with current treatment plan. Call or return to clinic if any changes occur - aspirin 81 MG EC tablet; Take 1 tablet (81 mg) by mouth Daily - Microalbumin / creatinine urine ratio; Future - Comprehensive metabolic panel; Future Type 2 diabetes mellitus without complication, with long-term current use of insulin ([facility]) Reviewed labs and/or imaging at ov [...] associated with type 2 diabetes mellitus (HCC) ([facility]) Reviewed labs and/or imaging at ov today. advised that it appears that he is dehydrated and this may be contributing to the kidney problems - Microalbumin / creatinine urine ratio; Future - Comprehensive metabolic panel; Future Mixed hyperlipidemia ([facility]) Reviewed labs and/or imaging at ov today. Will continue current treatment regimen and follow up at next scheduled visit unless problems arise. - CBC and differential; Future Hypertension, unspecified type ([facility]) Record Blood Pressures 2-4 times weekly and record. Return with readings at next appointment. Call with readings if sees significant changes - Microalbumin / creatinine urine ratio; Future - CBC and differential; Future Hypothyroidism, unspecified type (CMS/HCC) Problem is stable, will continue with current treatment plan. Call or return to clinic if any changes occur - CBC and differential; Future Updated Medications: I have reviewed and reconciled the history and medication list with the patient today. Current Outpatient Medications: omega-3, EPA+DHA, (Super Sieper-3) 1000 MG capsule, 1 capsule, Disp: , [...] by mouth in the morning., Disp: 90 tablet,Rfl: 1 Continuous Glucose Sensor (FreeStyle Lillian 2 [...] 1 (one) time each day at the sametime, Disp: , Rfl: Misc. Devices (Rollator Ultra-Light) [...] 30 tablet, Rfl: 0 documented in this encounterSaint Joseph Health [id number] History of Present illness Narrative* Fer García NP - 06/15/2024 8:40 AM EDT Subjective Ramon Mariee is a 78 y.o. year old male [...] Review Audit Reviewed by Frankie Cosby MA (Mosaic Tiler) on 06/15/24 at 0841 Medication Order Taking? Sig Documenting Provider Last Dose Status acetaminophen (Tylenol) 500 MG tablet [id number] Take 1,000 mg by mouth Daily Active amLODIPine (Norvasc) 10 MG tablet [id number] 1 (one) time each day at the same time. Historical Provider, Active atorvastatin (Lipitor) 20 MG tablet [id number] Take 1 tablet (20 mg) by mouth 1 (one) time each day at the same time Tom Field DO Active carbidopa-levodopa (Sinemet) 25-100 MG tablet [id number] TAKE 1 TABLET BY MOUTH AT 8AM, NOON, 3PM, AND 6PM Fer García NP Active clopidogrel (Plavix) 75 MG tablet [id number] Take 1 tablet (75 mg) by mouth in the morning. Tom Field DO Active Continuous Glucose Advertisement Distributor (FreeStyle Lillian 2 Markle) device [id number] Dispense 1 reader device forevery day use to check blood sugars E11.9 Tom Field DO Active Continuous Glucose Sensor (FreeStyle Lillian 2 Sensor) [facility] [id number] 1 Units every 14 (fourteen) daysGeorroshni Field DO Active Continuous Glucose Sensor (FreeStyle Lillian 2 Sensor) [facility] [id number] 1 Units every 14 (fourteen) daysTom Field DO Active insulin glargine (Lantus SoloStar) 100 UNIT/ML pen [id number] INJECT 10 UNITS UNDER THE SKIN EVERY DAY AT BEDTIME Tom Field DO Active insulin pen needle (B-D UF III MINI PEN NEEDLES) 31G x 5 mm [facility] [id number] Use daily as directed Tom Field DO Active lisinopril 5 MG tablet [id number] Take 1 tablet (5 mg) by mouth Daily Tom Field DO Active metFORMIN XR (Glucophage-XR) 500 MG 24 hr tablet [id number] TAKE 1 TABLET BY MOUTH IN THE EVENING. TAKE WITH MEALS DO NOT CRUSH, CHEW, OR SPLIT. Tom Field DO Active metoprolol succinate XL (Toprol-XL) 25 MG 24 hr tablet [id number] Take 1 tablet by mouth 1 (one) timeeach day. Historical Provider, Active mirabegron ER (Myrbetriq) 50 MG 24 hr tablet [id number] Take 50 mg by mouth 1 (one) time each day at the same time Active Misc. Devices (Rollator Ultra-Light) mis [id number] 1 rollator with seat for every day use Tom Field DO Active terbinafine (LamISIL) 250 MG tablet [id number] TAKE 1 TABLET BY MOUTH EVERY DAY Sarah Connell DPM Active traMADol (Ultram) 50 MG tablet [id number] Take 1 tablet (50 mg) by mouth [...] fell in March and was seen at [facility], was not admitted. Did hit his [...] wear. He refuses to wear the CPAP sohas an appt to discuss the Inspire Device [...] ankle and great toe bilaterally. Coordination Right: Mfexwb-et-gcwp normal. Rapid alternating movement abnormality:Left: Fpnlgq-pu-aari normal. Rapid alternating movement abnormality: Bradykinesia noted with MONY. Gait Slow, shuffle gait. Decreased arm swing bilaterally. Uses arms to get out of the chair. Motor Examination RUE Strength deltoid, biceps, triceps, wrist extensors, wrist extensors, wrist flexor, ncr operator strength 5/5. LUE Strength deltoid, biceps, triceps, wrist extensors, wrist extensors, wrist flexor, ncr operator strength 5/5. RLE Strength illopsoas, quadriceps, [...] male who is being seen in at [facility] on 02/25/2024 with altered mental status and [...] 25/100 TID. His and daughter state they haveseen improvement in his gait and he is moving better but the medication seem to wear off with a definite notable difference. He did fall in February 2024 after his hospitalization [facility] [...] wear. He followed with Dr Gonsales at [facility]. His will call to schedule an appointment to discuss alternative therapies and/or mask. He has an appt to discuss the Inspire device. We discussed the affects and risks associated with untreated LOPEZ Evaluation at [facility] in February 2024: 1. CT scan of [...] set an alarm to remind him to takehis meds or look into a med-minder I counseled the patient on fall precautions. I discussed the high risk of trauma and debility associated with falls. Patient verbalized understanding. His made an appt with Dr Gonsales, sleep medicine, to discuss untreated LOPEZ Fall precautions discussed. I will see the patient back in 4 months or sooner if needed documented in this encounterSaint Joseph Health [id number] History of Present illness Narrative* Tom Field, - 06/07/2024 10:00 AM EDT Images from the original note were not included. SUBJECTIVE: Ramon Mariee is a 78 y.o. male presents with chief complaint of Diabetes, Hypothyroidism, and Hypertension Pt presents to the office with to routine OV and a few concerns. states they discontinued both the Centrum and vitamin d + fish oil. Pt discontinued as she read it effected the sinemet rx. Cardiology: Pt is now seeing Dr. Conde cardiology recently switched from [facility]. Has upcoming appt. Weakness/ Unsteady gait. [...] min Stress: No Stress Concern Present (03/25/2024) [employer] [employer] - Occupational Stress Questionnaire Feeling of Stress : Not at all Recent Concern: Stress - Stress Concern Present (03/17/2024) [employer] [employer] - Occupational Stress Questionnaire Feeling of Stress : To some extent Social Connections: Moderately Integrated (03/25/2024) Social Connection and Isolation Panel [NHANES] Frequency of Communication with Friends and Family: Three times a week Frequency of Social Gatherings with Friends and Family: Not on file Attends Tenriism Services: More than 4 times per year [...] Discussed patient's need for a front wheel walker.The patient has mobility limitations that significantly impair [...] for every day use Peripheral vascular disease ([facility]) Reviewed vascular surgery notes in office today. Will continue current treatment regimen and followup at next scheduled visit unless problems arise. Hypertension, unspecified type ([facility]) Record Blood Pressures 2-4 times weekly and record. Return with readings at next appointment. Call with readings if sees significant changes Hypothyroidism, unspecified type ([facility]) Labs ordered today, will follow up when results available Stage 3a chronic kidney disease (HCC) ([facility]) Problem is stable, will continue with current treatment plan. Call or return to clinic if any changes occur 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, unspecified vessel or lesion type, unspecified whether [place] or transplanted heart ([facility]) Patient advised to return if symptoms worsen and/or persist despite treatment. Type 2 diabetes mellitus with hyperglycemia, without long-term current use of insulin ([facility]) Labs ordered today, will follow up [...] by mouth in the morning., Disp: 90 tablet,Rfl: 1 Continuous Glucose Advertisement Distributor (FreeStyle Lillian 2 Markle) device, Dispense 1 reader device for every [...] 1 (one) time each day at the sametime, Disp: , Rfl: terbinafine (LamISIL) 250 MG tablet, TAKE 1 TABLET BY MOUTH EVERY DAY, Disp: 90 tablet, Rfl: 0 documented in this encounterSaint Joseph Health [id number] Procedure [facility]09-20-2023 Evaluation note* Encounter Date Diagnosis Assessment Notes Treatment Notes Treatment Clinical Notes Jun, Obstructive sleep apnea (ICD-10 - [...] blood pressure lability. Jun, Other The diagnosis o f Sleep Apnea was reviewed in detail, and [...] changes in symptoms and/or problems with treatment [employer] Other 03-30-2023 NoteCONSULTATION CONSULTATION DATE: 01/09/2023 TO: [...] the response to his change in medication.[facility] 12-19-2022 NoteCONSULTATION CONSULTATION DATE: 12/26/2022 [...] from a physician they saw at the [facility]. The patient and the are interested in [...] he will be scheduled at six weeks.[facility] [id number] Note CONSULTATION CONSULTATION DATE: 11/12/2022 CHIEF COMPLAINT: [...] his understand and would like to proceed.[facility] [id number] NoteCONSULTATION PROCEDURE DATE: 11/12/2022 PREOPERATIVE DIAGNOSIS: Gluteal [...] superior sacrococcygeal joint injection in the future.[facility] [id number] NoteCONSULTATION CONSULTATION DATE: 09/03/2022 CHIEF COMPLAINT: Low [...] patient understands and would like to proceed.[facility] [id number] NoteCONSULTATION CONSULTATION DATE: 05/23/2022 This is a [...] and the patient agrees with his plan.[facility] [id number] NoteCONSULTATION PROCEDURE DATE: 05/23/2022 PRE AND POSTOPERATIVE [...] will be followed up in the office.[facility] CenterKkbjidiv21-30-3622 NoteCONSULTATION CONSULTATION DATE: 02/28/2022 This is a [...] to maintain his medications unless otherwise indicated. [facility] Signed and Approved by: DIAMANTE SPAULDING . 03/04/2022 15:07:00[facility]Evaluation noteNo assessment information availableSelect [facility] Work Phone: Evaluation note* Diagnosis Onset Date Resolution Status Diminished pulses in lower extremity acute PVD (peripheral vascular disease) [facility] Work Phone: Evaluation note* Diagnosis Onset Date Resolution Status Diminished pulses in lower extremity acute PVD (peripheral vascular disease) acute [id number] acute S/P placement of cardiac pacemaker acute S/P PTCA (percutaneous trans luminal coronary angioplasty) acute Sick sinus syndrome acute [facility] Work Phone: Evaluation note* Diagnosis Onset Date Resolution Status Diminished pulses in lower extremity acute PVD (peripheral vascular disease) acute [id number] acute S/P placement of cardiac pacemaker acute S/P PTCA (percutaneous trans luminal coronary angioplasty) acute Sick sinus syndrome acute Congestive heart failure acu te Diabetes acute HTN (hypertension) acute Intolerance to BiPAP/CPAP ac elliott Myocardial infarction acute Obstructive sleep apnea acut e [facility] Work Phone: Evaluation note* Diagnosis Myalgia [...] Type II diabetes mellitus with neurological manifestations ([facility]) Type II or unspecified type diabetes mellitus [...] unspecified vessel or lesion type, unspecified whether [place] or transplanted heart (CMS/HCC) Type 2 diabetes mellitus with hyperglycemia, without long-term current use of insulin ([facility]) Myalgia Unspecified myalgia and myositis documented [facility] encounter [facility]* Diagnosis Onychomycosis- Primary Dermatophytosis of nail Type II diabetes mellitus with neurological manifestations ([facility]) Type II or unspecified type diabetes mellitus with neurological manifestations, not stated as uncontrolled Pain in both feet documented [facility]* Diagnosis Parkinson's disease with dyskinesia and fluctuating manifestations ([facility])- Primary documented in [facility]* Diagnosis 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, unspecified vessel or lesion type, unspecified whether [place] or transplanted heart ([facility])- Primary Type 2 diabetes mellitus without complication, with long-term current use of insulin ([facility]) Diabetic nephropathy associated with type 2 diabetes mellitus (HCC) ([facility]) Mixed hyperlipidemia ([facility]) Mixed hyperlipidemia Hypertension, unspecified type ([facility]) Hypothyroidism, unspecified type ([facility]) documented [facility]* Diagnosis Obstructive sleep apnea- Primary Obstructive sleep apnea (adult) (pediatric) Intolerance of continuous positive airway pressure (CPAP) ventilation documented [facility]* Diagnosis Myalgia Unspecified myalgia and myositis documented [facility]* Diagnosis 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, unspecified vessel or lesion type, unspecified whether [place] or transplanted heart ([facility])- Primary Type 2 diabetes mellitus with diabetic chronic kidney disease ([facility]) Chronic kidney disease, stage 3b (HCC) ([facility]) Sick sinus syndrome ([facility]) Sinoatrial node dysfunction Hypertensive heart disease with heart failure ([facility]) Unspecified hypertensive heart disease with heart failure Hypertension, unspecified type ([facility]) Mixed hyperlipidemia ([facility]) Mixed hyperlipidemia Stage 3a chronic kidney disease (HCC) ([facility]) Type 2 diabetes mellitus with hyperglycemia, without long-term current use of insulin ([facility]) Raynaud's disease without gangrene documented [facility]* Diagnosis Essential (primary) hypertension ([facility]) Unspecified essential hypertension documented [facility] this [facility]* Diagnosis Onychomycosis- Primary Dermatophytosis of nail Type II diabetes mellitus with neurological manifestations ([facility]) Type II or unspecified type diabetes mellitus with neurological manifestations, not stated as uncontrolled Pain in both feet documented in this encounter [facility]* Diagnosis Seborrheic keratosis- Primary Lentigines Capillary angioma Nevus, non-neoplastic Neoplasm of unspecified behavior of bone, soft tissue, and skin History of skin cancer Personal history of other malignant neoplasm of skin documented in this encounter [facility] HealthcareEvaluation note* Diagnosis Onychomycosis Dermatophytosis of nail documented in this encounter [facility] HealthcareEvaluation note* Diagnosis 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, unspecified vessel or lesion type, unspecified whether [place] or transplanted heart ([facility])- Primary Type 2 diabetes mellitus without complication, with long-term current use of insulin Hypertension, unspecified type ([facility]) Mixed hyperlipidemia ([facility]) Mixed hyperlipidemia Stage 3a chronic kidney disease (HCC) ([facility]) Type 2 diabetes mellitus with hyperglycemia, without long-term current use of insulin ([facility]) Erectile dysfunction, unspecified erectile dysfunction type documented in this encounter [facility] HealthcareEvaluation note* Diagnosis Routine general medical examination at health care facility- Primary Routine general medical examination at a health care facility documented in this encounter [facility] HealthcareEvaluation note* Diagnosis Type 2 diabetes mellitus without complication, with long-term current use of insulin documented in this encounter [facility] HealthcareEvaluation note* Diagnosis Onset Date Resolution Status Admit Date Coronary artery disease invo lving [place] coronary artery of [place] heart wi acute March 15, 2025 1 0:11am S/P placement of cardiac pacemaker acute March 15, 2025 1 0:11am S/P PTCA (percutaneous transluminal coronary angioplasty) acute March 15, 2025 1 0:11am Sick sinus syndrome acute March 15, 2025 10:11am [facility] Work Phone: Evaluation note* Diagnosis 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 documented in this encounter [facility] HealthcareEvaluation note* Diagnosis Onychomycosis- Primary Dermatophytosis of nail Type II diabetes mellitus with neurological manifestations (HCC) Type II or unspecified type diabetes mellitus with neurological manifestations, not stated as uncontrolled Pain in both feet documented in this encounter [facility]* Diagnosis Orthostatic lightheadedness- Primary Parkinson's disease with dyskinesia and fluctuating manifestations (HCC) Hypertension, unspecified type Hypothyroidism, unspecified type Fall, sequela Acute pain of right knee documented in this encounter [facility] HealthcareHistory and physical note Author Manda Lockwood [facility] February 09, 2024 9:53am Note Date/Time February 09, 2024 9:2 0am [facility] [address] [place] [address] Gastroenterology H&P Signed Patient: Ramon Mariee MR#: [id number] : 1945 Acct:[id number] Age/Sex: 78 / M Adm Date: 4 Loc: Room: Type: [facility] Attending Dr: Manda Lockwood MD [...] Lockwood M.D. Documented By: Manda Lockwood MD 02/09/2420 Signed By: <Electronically signed by Manda Lockwood MD> 02/09/24 0953 [facility] Work Phone: Hisaowk general Narrative - Reported* Type Description Date Medical History HTN Medical History DM Medical History SC Medical History CAD Medical History LOPEZ Medical History Congestive heart failure Surgical History 8 stents Surgical History pacemaker 03/26/21 Hospitalization History see above ACSIAN Other History of Present illness Narrative* [facility] [place] * had flu sjot/ had covid booster * eye.. dr. mg sommer in [place] * hgm 120 s * no log here, ran out of test strips * agent lantus plus glimep * has a pcp in [facility] * no hypos [employer] [facility] Work Phone: History of Present illness Narrative* [facility] [place] * had flu sjot/ had covid booster * eye.. dr. mg sommer in [place] * hgm 120 s * no log here, * agent lantus plus glimep * has a pcp in [facility] * no hypos * feels well * drove here from [facility] this am * will travel to [place] this winter [employer] [facility] Work Phone: History of Present illness Narrative* feels well * takes meds ok * hobbies... TV * agent lantus plus glimep * hgm 100-130 * cards d.r G * eye in [place] * no sob or chest pains [employer] [facility] Work Phone: Hospital Discharge instructions Additional Instructions [...] years. -Follow up with PCP. -Office number [phone]. [facility] [place] Work Phone: Hospital Discharge instructions Additional Instructions If your symptoms return/worsen or you develop any further concerns or symptoms please see your doctor or return to the emergency department immediately. It is imperative that you go over today's visit and all results with your primary care provider.[facility] [place] Work Phone: Instructions* Name Dates Details Instructions not documented -[facility] Work Phone: Reason for referral (narrative)No reason for referral information available[facility] 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 living wi ll Advance Directive Response Recorded Date/ Time Advance Directives No March 15 11:08am Chief Complaint and Reason for Visit Chief Complaint Admit Date 6 months March 15, 2025 10:11 am Z95.0 April 06, 2025 8:00 am Z95.0 April 06, 2025 2:51 pm Reason for Visit Admit Date Coronary artery disease invo lving [place] coronary artery of [place] heart wi March 15, 2025 10:11am S/P placement of cardiac pacemaker March 15, 2025 10:11am S/P PTCA (percutaneous transluminal juanito nary angioplasty) March 15, 2025 10:11am Sick sinus syndrome March 15, 2025 10:11 am Chief Complaint Obstructive sleep ap lauri Chief Complaint fm hx of colon ca fm hx of colon ca Chief Complaint Ref from Dr. Field for PVD I70.213 - Atherosclerosis of [place] arteries of ex Reason for Visit Diminished pulses in lower extremity PVD (peripheral vascular disease) Chief Complaint Ref from Dr. Field for PVD I70.213 - Atherosclerosis of [place] arteries of ex pacemaker/stents establish Reason for Visit Diminished pulses in lower extremity PVD (peripheral vascular disease) Chief Complaint Ref from Dr. Field for PVD I70.213 - Atherosclerosis of [place] arteries of ex pacemaker/stents establish Reason for Visit Diminished pulses in lower extremity PVD (peripheral vascular disease) [id number] S/P placement of cardiac pacemaker S/P PTCA (percutaneous transluminal coronary angioplasty) Sick sinus syndrome Chief Complaint Ref from Dr. Field for PVD I70.213 - Atherosclerosis of [place] arteries of ex pacemaker/stents establish I49.1 I50.9 lopez/ interested in inspire Reason for Visit Diminished pulses in lower extremity PVD (peripheral vascular disease) [id number] S/P placement of cardiac pacemaker S/P PTCA (percutaneous transluminal coronary angioplasty) Sick sinus syndrome Chief Complaint Ref from Dr. Field for PVD I70.213 - Atherosclerosis of [place] arteries of ex pacemaker/stents establish I49.1 I50.9 lopez/ interested in inspire Z95.0 Reason for Visit Diminished pulses in lower extremity PVD (peripheral vascular disease) [id number] S/P placement of cardiac pacemaker S/P PTCA [...] 0am Z95.0 January 05, 2025 2:0 3pm Chief Complaint Admit Date sleep apnea December 20, 2024 9:5 7am sleep apnea January 03, 2025 6:0 2am Z95.0 January 05, 2025 8:0 0am Z95.0 January 05, 2025 2:0 3pm 6 months March 15, 2025 10:11 am Chief Complaint Admit Date 6 months March 15, 2025 10:11 am Z95.0 April 06, 2025 8:00 am Z95.0 April 06, 2025 2:51 pm Syncope May 02, 2025 12:1 9pm Additional Source Comments (unrecognized sect ion and content) No Status Records FoundNo Status Records FoundNo Status Records FoundNo Status Records FoundNo Status Records FoundNo Status Records FoundNo Status Records FoundNo Status Records FoundNo Status Records Found INFORMATION SOURCE (unrecogn ized section and content) DATE CREATED AUTHOR 05/27/2022 [employer] DATE CREATED AUTHOR AUTHOR'S ORGANIZ ATION 09/02/2022 [facility] dical Specialist DATE CREATED AUTHOR AUTHOR'S ORGANIZ ATION 10/21/2022 [facility] DATE CREATED AUTHOR AUTHOR'S ORGANIZ ATION 12/03/2022 [facility] DATE CREATED AUTHOR AUTHOR'S ORGANIZ ATION 02/26/2023 [facility] DATE CREATED AUTHOR AUTHOR'S ORGANIZ ATION 07/03/2024 [facility] DATE CREATED AUTHOR AUTHOR'S ORGANIZ ATION 03/26/2025 [facility] DATE CREATED AUTHOR AUTHOR'S ORGANIZ ATION 05/08/2025 [facility] dical Specialists EPIC DATE CREATED AUTHOR AUTHOR'S ORGANIZ ATION 05/25/2025 [facility] ysician Group Care Teams (unrecognized sec tion and content) [...] Member Role Status Dates Tom Conde MD Legal Stenographer Active Benedicto Field DO Primary Care Provider [...] Active Start: June End: July 07, 2024 Dental Biller Relationship Specialty Start Date End Date Tom Field DO [address] [address] PCP - General Family Medicine 02/18/23 Tom Field, DO [address] [place] [address] PCP - ACO Reach 12/12/23 Charlene Sullivan RN Registered Nurse Family Medicine 03/17/24 Dental Biller Relationship Specialty Start Date End Date Tom Field, DO [address] [place] [address] PCP - General Family Medicine 02/18/23 Tom Field, DO [address] [place] [address] PCP - ACO Reach 12/12/23 Charlene Sullivan RN Registered Nurse Family Medicine 03/17/24 Lili Gonsales MD [address] [place] [address] Referring Physician Sleep Medicine 08/10/24 Sunny Vasquez, DO [address] [facility] [place] [address] Otolaryngology 08/10/24 Dental Biller Relationship Specialty Start Date End Date Tom Field, DO [address] [place] [address] PCP - General Family Medicine 02/18/23 Tom Field, DO [address] [place] [address] PCP - ACO Reach 12/12/23 Charlene Sullivan RN Registered Nurse Family Medicine 03/17/24 Lili Gonsales MD [address] [place] [address] Referring Physician Sleep Medicine 08/10/24 Sunny Vasquez, DO [address] [place] [address] Otolaryngology 08/10/24 Dental Biller Relationship Specialty Start Date End Date Tom Field DO [address] [place] [address] PCP - General Family Medicine 02/18/23 Tom Field DO [address] [place] [address] PCP - ACO Reach 12/12/23 Charlene Sullivan, RN Registered Nurse Family Medicine 03/17/24 Lili Gonsales MD [address] [place] [address] Referring Physician Sleep Medicine 08/10/24 Sunny Vasquez, DO [address] [place] [address] Otolaryngology 08/10/24 Dental Biller Relationship Specialty Start Date End Date Tom Field DO [address] [place] [address] PCP - General Family Medicine 02/18/23 Tom Field DO [address] [place] [address] PCP - ACO Reach 12/12/23 Charlene Sullivan, RN Registered Nurse Family Medicine 03/17/24 Lili Gonsales MD [address] [place] [address] Referring Physician Sleep Medicine 08/10/24 Sunny Vasquez, DO [address] [place] [address] Otolaryngology 08/10/24 Dental Biller Relationship Specialty Start Date End Date Tom Field DO [address] [place] [address] PCP - General Family Medicine 02/18/23 Tom Field DO [address] [place] [address] PCP - ACO Reach 12/12/23 Charlene Sullivan, RN Registered Nurse Family Medicine 03/17/24 Lili Gonsales MD [address] [place] [address] Referring Physician Sleep Medicine 08/10/24 Sunny Vasquez, DO [address] [place] [address] Otolaryngology 08/10/24 Eusebio Guerin MD [address] [place] [address] Referring Physician Neurology 09/06/24 Dental Biller Relationship Specialty Start Date End Date Tom Field, DO [address] [place] [address] PCP - General Family Medicine 02/18/23 Tom Field, DO [address] [place] [address] PCP - ACO Reach 12/12/23 Charlene Sullivan, [place] Registered Nurse Family Medicine 03/17/24 Dental Biller Relationship Specialty Start Date End Date Tom Field DO [address] [place] [address] PCP - General Family Medicine 02/18/23 Tom Field DO [address] [place] [address] PCP - ACO Reach 12/12/23 Charlene Sullivan, [place] Registered Nurse Family Medicine 03/17/24 Lili Gonsales MD [address] [place] [address] Referring Physician Sleep Medicine 08/10/24 Sunny Vasquez, DO [address] [place] [address] Otolaryngology 08/10/24 Eusebio Guerin MD [address] [place] [address] Referring Physician Neurology 09/06/24 Dental Biller Relationship Specialty Start Date End Date Tom Field DO [address] [place] [address] PCP - General Family Medicine 02/18/23 Tom Field DO [address] [place] [address] PCP - ACO Reach 12/12/23 Charlene Sullivan, [place] Registered Nurse Family Medicine 03/17/24 Lili Gonsales MD [address] [place] [address] Referring Physician Sleep Medicine 08/10/24 Sunny Vasquez DO [address] [place] [address] Otolaryngology 08/10/24 Eusebio Guerin MD [address] [place] [address] Referring Physician Neurology 09/06/24 Dental Biller Relationship Specialty Start Date End Date Tom Field DO [address] [facility] [address] [place] [address] PCP - General Family Medicine 02/18/23 Tom Field DO [address] [place] [address] PCP - ACO Reach 12/12/23 Charlene Sullivan, RN Registered Nurse Family Medicine 03/17/24 Lili Gonsales MD [address] [place] [address] Referring Physician Sleep Medicine 08/10/24 Sunny Vasquez DO [address] [place] [address] Otolaryngology 08/10/24 Eusebio Guerin MD [address] [place] [address] Referring Physician Neurology 09/06/24 Dental Biller Relationship Specialty Start Date End Date Tom Field, DO [address] [place] [address] PCP - General Family Medicine 02/18/23 Tom Field DO [address] [place] [address] PCP - ACO Reach 12/12/23 Charlene Sullivan, [place] Registered Nurse Family Medicine 03/17/24 Dental Biller Relationship Specialty Start Date End Date Tom Field DO [address] [place] [address] PCP - General Family Medicine 02/18/23 Tom Field DO [address] [place] [address] PCP - ACO Reach 12/12/23 Charlene Sullivan, [place] Registered Nurse Family Medicine 03/17/24 Lili Gonsales MD [address] [place] [address] Referring Physician Sleep Medicine 08/10/24 Sunny Vasquez DO [address] [place] [address] Otolaryngology 08/10/24 Eusebio Guerin MD [address] [place] [address] Referring Physician Neurology 09/06/24 Dental Biller Relationship Specialty Start Date End Date Tom Field DO [address] [place] [address] PCP - General Family Medicine 02/18/23 Tom Field, DO [address] [place] [address] PCP - ACO Reach 12/12/23 Charlene Sullivan, [place] Registered Nurse Family Medicine 03/17/24 Dental Biller Relationship Specialty Start Date End Date Tom Field DO [address] [place] [address] PCP - General Family Medicine 02/18/23 Tom Field DO [address] [place] [address] PCP - ACO Reach 12/12/23 Charlene Sullivan, [place] Registered Nurse Family Medicine 03/17/24 Dental Biller Relationship Specialty Start Date End Date Tom Field DO [address] [place] [address] PCP - General Family Medicine 02/18/23 Tom Field DO [address] [place] [address] PCP - ACO Reach 12/12/23 Charlene Sullivan, [place] Registered Nurse Family Medicine 03/17/24 Dental Biller Relationship Specialty Start Date End Date Tom Field, DO [address] [place] [address] PCP - General Family Medicine 02/18/23 Tom Field DO [address] [place] [address] PCP - ACO Reach 12/12/23 Charlene Sullivan, [place] Registered Nurse Family Medicine 03/17/24 Dental Biller Relationship Specialty Start Date End Date Tom Field DO [address] [place] [address] PCP - General Family Medicine 02/18/23 Tom Field DO [address] [place] [address] PCP - ACO Reach 12/12/23 Charlene Sullivan, [place] Registered Nurse Family Medicine 03/17/24 Lili Gonsales MD [address] [place] [address] Referring Physician Sleep Medicine 08/10/24 Sunny Vasquez, DO [address] [place] [address] Otolaryngology 08/10/24 Eusebio Guerin MD [address] [place] [address] Referring Physician Neurology 09/06/24 Dental Biller Relationship Specialty Start Date End Date Tom Field DO [address] [place] [address] PCP - General Family Medicine 02/18/23 Tom Field DO [address] [place] [address] PCP - ACO Reach 12/12/23 Charlene Sullivan, RN Registered Nurse Family Medicine 03/17/24 Lili Gonsales MD [address] [place] [address] Referring Physician Sleep Medicine 08/10/24 Sunny Vasquez, [address] [place] [address] Otolaryngology 08/10/24 Eusebio Guerin MD [address] [place] [address] Referring Physician Neurology 09/06/24 Dental Biller Relationship Specialty Start Date End Date Tom Field DO [address] [place] [address] PCP - General Family Medicine 02/18/23 Tom Field DO [address] [place] [address] PCP - ACO Reach 12/12/23 Charlene Sullivan, RN Registered Nurse Family Medicine 03/17/24 Lili Gonsales MD [address] [place] [address] Referring Physician Sleep Medicine 08/10/24 Sunny Vasquez DO [address] [place] [address] Otolaryngology 08/10/24 Eusebio Guerin MD [address] [place] [address] Referring Physician Neurology 09/06/24 Team Status: Inactive Member Role Status Dates Benedicto Field DO Primary Care Provider Active Start: October 04, 2024 End: October 04, 2024 Tom Conde MD Attending Provider Activ e Start: October 04, 2024 End: October 04, 2024 Team Status: Inactive Member Role Status Ina [...] 2025 Team Status: Active Member Role Status Ina [...] January 05, 2025 End: January 05, 2025 Dental Biller Relationship Specialty Start Date End Date Tom Field DO [address] [place] [address] PCP - General Family Medicine 02/18/23 Tom Field DO [address] [place] [address] PCP - ACO Reach 12/12/23 Charlene Sullivan, [place] Registered Nurse Family Medicine 03/17/24 Lili Gonsales MD [address] [facility] [address] [place] [address] Referring Physician Sleep Medicine 08/10/24 Sunny Vasquez DO [address] [facility] [place] [address] Otolaryngology 08/10/24 Eusebio Guerin MD [address] [place] [address] Referring Physician Neurology 09/06/24 Hillary Wilhelm PA [address] [place] [address] Physician Freight Car [employer] Neurology 12/29/24 Dental Biller Relationship Specialty Start Date End Date Tom Field DO [address] [place] [address] PCP - General Family Medicine 02/18/23 Tom Field DO [address] [place] [address] PCP - ACO Reach 12/12/23 Charlene Sullivan, RN Registered Nurse Family Medicine 03/17/24 Llii Gonsales MD [address] [place] [address] Referring Physician Sleep Medicine 08/10/24 Sunny Vasquez DO [address] [place] [address] Otolaryngology 08/10/24 Eusebio Guerin MD [address] [place] [address] Referring Physician Neurology 09/06/24 Hillary Wilhelm PA [address] [place] [address] Physician Freight Car [employer] Neurology 12/29/24 Dental Biller Relationship Specialty Start Date End Date Tom Field DO [address] [place] [address] PCP - General Family Medicine 02/18/23 Tom Field DO [address] [place] [address] PCP - ACO Reach 12/12/23 Charlene Sullivan, RN Registered Nurse Family Medicine 03/17/24 Lili Gonsales MD Referring Physician Sleep Medicine 08/10/24 Sunny Vasquez DO [address] [place] [address] Otolaryngology 08/10/24 Eusebio Guerin MD [address] [place] [id number] Referring Physician Neurology 09/06/24 Hillary Wilhelm PA [address] [place] [id number] Physician Freight Car [employer] Neurology 12/29/24 Dental Biller Relationship Specialty Start Date End Date Tom Field DO [address] [place] [address] PCP - General Family Medicine 02/18/23 Tom Field DO [address] [place] [address] PCP - ACO Reach 12/12/23 Charlene Sullivan, [place] Registered Nurse Family Medicine 03/17/24 Lili Gonsales MD Referring Physician Sleep Medicine 08/10/24 Sunny Vasquez DO [address] [place] [address] Otolaryngology 08/10/24 Eusebio Guerin MD [address] [place] [address] Referring Physician Neurology 09/06/24 Hillary Wilhelm PA [address] [place] [address] Physician Freight Car [employer] Neurology 12/29/24 Dental Biller Relationship Specialty Start Date End Date Tom Field DO [address] [place] [address] PCP - General Family Medicine 02/18/23 Tom Field DO [address] [place] [address] PCP - ACO Reach 12/12/23 Charlene Sullivan, [place] Registered Nurse Family Medicine 03/17/24 Lili Gonsales MD Referring Physician Sleep Medicine 08/10/24 Sunny Vasquez DO [address] [place] [address] Otolaryngology 08/10/24 Eusebio Guerin MD [address] [place] [address] Referring Physician Neurology 09/06/24 Hillary Wilhelm PA [address] [place] [address] Physician Freight Car [employer] Neurology 12/29/24 Dental Biller Relationship Specialty Start Date End Date Tom Field DO [address] [place] [address] PCP - General Family Medicine 02/18/23 Tom Field DO [address] [place] [address] PCP - ACO Reach 12/12/23 Lili Gonsales MD [address] [place] [address] Referring Physician Sleep Medicine 08/10/24 Sunny Vasquez DO [address] [place] [address] Otolaryngology 08/10/24 Eusebio Guerin MD [address] [place] [address] Referring Physician Neurology 09/06/24 Hillary Wilhelm PA [address] [facility] [address] [place] [address] Physician Freight Car [employer] Neurology 12/29/24 Dental Biller Relationship Specialty Start Date End Date Tom Field DO [address] [place] [address] PCP - General Family Medicine 02/18/23 Tom Field DO [address] [place] [address] PCP - ACO Reach 12/12/23 Lili Gonsales MD [address] [place] [address] Referring Physician Sleep Medicine 08/10/24 Sunny Vasquez DO [address] [place] [address] Otolaryngology 08/10/24 Eusebio Guerin MD [address] [place] [address] Referring Physician Neurology 09/06/24 Hillary Wilhelm PA [address] [place] [address] Physician Freight Car [employer] Neurology 12/29/24 Dental Biller Relationship Specialty Start Date End Date Tom Field DO [address] [place] [address] PCP - General Family Medicine 02/18/23 Tom Field DO [address] [place] [address] PCP - ACO Reach 12/12/23 Lili Gonsales MD [address] [place] [address] Referring Physician Sleep Medicine 08/10/24 Sunny Vasquez DO [address] [place] [address] Otolaryngology 08/10/24 Eusebio Guerin MD [address] [place] [address] Referring Physician Neurology 09/06/24 Hillary Wilhelm PA [address] [facility] [address] Physician Freight Car [employer] Neurology 12/29/24 Dental Biller Relationship Specialty Start Date End Date Tom Field DO [address] [place] [address] PCP - General Family Medicine 02/18/23 Tom Field DO [address] [place] [address] PCP - ACO Reach 12/12/23 Lili Gonsales MD [address] [place] [address] Referring Physician Sleep Medicine 08/10/24 Sunny Vasquez DO [address] [place] [address] Otolaryngology 08/10/24 Eusebio Guerin MD [address] [place] [address] Referring Physician Neurology 09/06/24 Hillary Wilhelm PA [address] [place] [address] Physician Freight Car [employer] Neurology 12/29/24 Team Status: Inactive Member Role Status Dates Benedicto Field DO Primary Care Provider Active Start: March 15, 2025 End: March 15, 2025 Tom Conde MD Attending Provider Activ e Start: March 15, 2025 End: March 15, 2025 Team Status: Active Member Role Status Dates Benedicto Field DO Primary Care Provider Active Start: April 06, 2025 Tom Conde MD Referring Provider Activ e Start: April 06, 2025 Tom Conde MD Other Provider Active Start: April 06, 2025 Alf Levine MD Attending Provider Active Start: April 06, 2025 Team Status: Inactive Member Role Status Dates Benedicto Field DO Primary Care Provider Active Start: April 06, 2025 End: April 06, 2025 Tom Conde MD Attending Provider Activ e Start: April 06, 2025 End: April 06, 2025 Tom Conde MD Referring Provider Activ e Start: April 06, 2025 End: April 06, 2025 Dental Biller Relationship Specialty Start Date End Date Tom Field DO [address] [place] [address] PCP - General Family Medicine 02/18/23 Tom Field DO [address] [place] [address] PCP - ACO Reach 12/12/23 Lili Gonsales MD [address] [place] [address] Referring Physician Sleep Medicine 08/10/24 Sunny Vasquez DO [address] [place] [address] Otolaryngology 08/10/24 Eusebio Guerin MD [address] [place] [address] Referring Physician Neurology 09/06/24 Hillary Wilhelm PA [address] [facility] [facility] [address] [place] [address] Physician Freight Car [employer] [facility] Neu[facility] 12/29/24 Dental Biller Relationship Specialty Start Date End Date Tom Field DO [address] [place] [address] PCP - General Family Medicine 02/18/23 Tom Field DO [address] [place] [address] PCP - ACO Reach 12/12/23 Lili Gonsales MD [address] [place] [address] Referring Physician Sleep Medicine 08/10/24 Sunny Vasquez, DO [address] [place] [address] Otolaryngology 08/10/24 Eusebio Guerin MD [address] [place] [address] Referring Physician Neurology 09/06/24 Hillary Wilhelm PA [address] [place] [address] Physician Freight [employer] [facility] 12/29/24 Team Status: Active Member Role Status Ina Field DO Primary Care Provider Active Start: May 02, 2025 Nnamdi Dozier DO Emergency Provider Active Start: May 02, 2025 Alf Levine MD Attending Provider Active Start: May 02, 2025 Dental Biller Relationship Specialty Start Date End Date Tom Field DO [address] [place] [address] PCP - General Family Medicine 02/18/23 Tom Field DO [address] [place] [address] PCP - ACO Reach 12/12/23 Lili Gonsales MD [address] [place] [address] Referring Physician Sleep Medicine 08/10/24 Sunny Vasquez DO [address] [place] [address] Otolaryngology 08/10/24 Eusebio Guerin MD [address] [place] [address] Referring Physician Neurology 09/06/24 Hillary Wilhelm PA [address] [place] [address] Physician Freight Car [employer] [facility] 12/29/24 Dental Biller Relationship Specialty Start Date End Date Tom Field DO [address] [place] [address] PCP - General Family Medicine 02/18/23 Tom Field DO [address] [place] [address] PCP - ACO Reach 12/12/23 Lili Gonsales MD [address] [place] [address] Referring Physician Sleep Medicine 08/10/24 Sunny Vasquez DO [address] [place] [address] Otolaryngology 08/10/24 Eusebio Guerin MD [address] [place] [address] Referring Physician Neurology 09/06/24 Hillary Wilhelm PA [address] [place] [address] Physician Freight Car [employer] [facility] 12/29/24 Dental Biller Relationship Specialty Start Date End Date Tom Field DO [address] [place] [address] PCP - General Family Medicine 02/18/23 Tom Field DO [address] [place] [address] PCP - ACO Reach 12/12/23 Lili Gonsales MD [address] [place] [address] Referring Physician Sleep Medicine 08/10/24 Sunny Vasquez DO [address] [place] [address] Otolaryngology 08/10/24 Eusebio Guerin MD [address] [place] [address] Referring Physician Neurology 09/06/24 Hillary Wilhelm PA [address] [place] [address] Physician Freight Car [employer] [facility] 12/29/24 Goals (unrecognized section and content) Goals may be documented in a n alternate section Reason for Visit (unrecogniz ed section and content) Reason Comments Mohs Micrographic Surgery Reason Comments Med Change Request Reason Onset [...] BE BASED ON THE PRIMARY CLINICAL RECORDS. [employer] [facility] provides no warranty or guarantee of the accuracy or completeness of information in this document.
--- NOTE | 2025-06-08 08:48 | PM.CN ---
Consult Note: HPI Data of Consult Patient: known to practice within the last 3 years Consult date: 06/08/25 Requesting Physician: Machelle Jimenez NP Primary Care Provider: Valentino ANDRES Consult Narrative Reason for consult: back pain Narrative: Ramon Mariee a pleasant 79 year old male presents for evaluation and management of chronic low back pain. Today rating pain 4/10, pain is increased with walking standing ADLS bending lifting and decreased with rest and sleep. longstanding hx of low back pain secondary to lumbar spondylosis and lumbar stenosis. no benefit to heat or ice. mild relief from baclofen and tylenol, moderate relief from tramadol. no longer utilizing baclofen, likely discontinued due to polypharmacy and frequent falls. since last visit has had numerous falls due to parkinsons, now utilizing a walker and has upcoming PT for frequent falls. cc:: CC: Machelle Jimenez NP Review of Systems ROS Status of ROS 10 or more systems reviewed and unremarkable except as noted in history and below [facility] Medical History Pacemaker ?Z95.0 - Presence of cardiac pacemaker (ICD-10) Low back pain ?M54.50 - Low back pain, unspecified (ICD-10) Diabetes ?E11.9 - Type 2 diabetes mellitus without complications (ICD-10) Acute prostatitis ?N41.0 - Acute prostatitis (ICD-10) High cholesterol ?E78.00 - Pure hypercholesterolemia, unspecified (ICD-10) Hypertension ?I10 - Essential (primary) hypertension (ICD-10) Congestive heart failure ?I50.9 - Heart failure, unspecified (ICD-10) Angina at rest ?I20.8 - Other forms of angina pectoris (ICD-10) Heart attack ?I21.9 - Acute myocardial infarction, unspecified (ICD-10) Surgical History H/O heart artery stent ?Z95.5 - Presence of coronary angioplasty implant and graft (ICD-10) History of arthroplasty of left knee ?Z96.652 - Presence of left artificial knee joint (ICD-10) History of arthroplasty of right knee ?Z96.651 - Presence of right artificial knee joint (ICD-10) History of cholecystectomy ?Z90.49 - Acquired absence of other specified parts of digestive tract (ICD-10) Meds Home Medications and Allergies Home Medications ?Medication ?Instructions ?Recorded ?Confirmed ?Type B complex 11-folic acid 1 mg-C 100 1 tab PO QDAY 03/13/23 12/14/24 History mg-biotin 300 mcg-zinc 50 mg tablet (Dialyvite) acetaminophen 325 mg capsule 500 mg PO QID PRN pain 03/13/23 12/14/24 History (Tylenol) amlodipine 10 mg tablet 10 mg PO QDAY 03/13/23 12/14/24 History aspirin 325 mg tablet,delayed 81 mg PO QDAY 03/13/23 12/14/24 History release atorvastatin 20 mg tablet 20 mg PO QDAY 03/13/23 12/14/24 History coenzyme Q10 75 mg capsule (Ultra 75 mg PO QDAY 03/13/23 12/14/24 History CoQ10) glimepiride 1 mg tablet (Amaryl) 1 mg PO QDAY 03/13/23 12/14/24 History insulin glargine 100 unit/mL (3 10 unit subcut QAM 03/13/23 12/14/24 History mL) subcutaneous pen (Lantus Solostar U-100 Insulin) lisinopril 10 mg tablet 5 mg PO QDAY 03/13/23 12/14/24 History metoprolol succinate 25 mg PO QDAY 03/13/23 12/14/24 History omega 6-knb-oua-fish oil 1,000 mg 1 cap PO QDAY 03/13/23 12/14/24 History (120 mg-180 mg) capsule (Fish Oil) oxybutynin chloride 10 mg 10 mg PO QDAY 03/13/23 12/14/24 History tablet,extended release 24 hr vitamin E 268 mg (400 unit) capsule 180 mg PO QDAY 03/13/23 12/14/24 History tramadol 50 mg tablet 50 mg PO BID 11/20/23 12/14/24 History acetaminophen 500 mg tablet 500 mg PO .8 hours 03/12/24 12/14/24 History (Tylenol Extra Strength) carbidopa 25 mg-levodopa 100 mg 1 tab PO BID 03/12/24 12/14/24 History tablet (Sinemet) metformin 500 mg tablet 500 mg PO DAILY 03/12/24 12/14/24 History baclofen 10 mg tablet 10 mg PO BID #60 tabs 01/06/25 Rx tramadol 50 mg tablet 50 mg PO BID PRN pain #60 tabs 01/06/25 Rx baclofen 10 mg tablet 10 mg PO BID PRN muscle spasm #60 03/16/25 Rx tabs naloxone 4 mg/actuation nasal 4 mg intranasal Q3M PRN opioid 03/16/25 Rx spray (Narcan) overdose #2 ea tramadol 50 mg tablet 50 mg PO BID PRN pain #60 tabs 03/16/25 Rx Allergies Allergy/AdvReac Type Severity Reaction Status Date / Time No Known Drug Allergies Allergy Verified 12/14/24 06:53 Exam Constitutional Documenting provider has reviewed patient's vital signs: yes Common normals: no apparent distress, oriented x3, healthy appearing, alert and well nourished General appearance: cooperative HENMT Common normals: normocephalic, hearing grossly normal bilaterally and moist oral mucous membranes Head and scalp: normocephalic Eye Common normals: PERRL Pupil: PERRL Neck & C-Spine Common normals: full ROM General: normal visual inspection Chest Common normals: inspection of chest normal Respiratory Common normals: normal respiratory effort, no retractions and no use of accessory muscles Back & Pelvis Lumbar spine/lower back: ROM limited, pain with ROM and straight leg raise negative bilaterally Extremity Common normals: normal to inspection and full ROM Neuro Common normals: oriented x3 Sensorium/orientation: alert Gait (neuro): antalgic Motor exam: strength 5/5 throughout and no movement abnormalities noted Psych Common normals: mental status grossly normal, thought process normal, cooperative, affect normal, speech normal and activity/motor behavior normal Speech: normal speech Thought process: normal thought process Results Additional Findings Additional findings: If on a controlled substance or opioids, I have checked an OARRS report on this patient and there are no aberrancies noted in the prescribing history.??If on a controlled substance or opioid a drug screen was completed and reviewed within the last year, and if there has not been a drug screen completed we ordered one today to monitor higher risk, state monitored pain medication use. As part of providing excellent, safe, comprehensive care, the following was completed at our patient's visit: 1. A medication reconciliation and review to ensure accurate knowledge of current/active medications, including asking our patients to inform us about any cqyv-xoa-njfoojd medications or herbal remedies/nutritional supplements/alternative remedies. 2. A review to specifically ensure our patients have had annual screening for screening for depression, screening for tobacco use, and screening for unhealthy alcohol use. For concerning screenings had a discussion with the patient, provided patient education, and recommended follow-up with primary care provider when appropriate. If patient noted with a risk of falling, they received education on strength, gait, and balance training to prevent future risk of falling. Portions of this note may have been carried over from the previous visit and updated as appropriate. Please note this office utilizes paper charting in addition to the electronic medical record. A list of current medications, vitals, and PMH is available there as the clinical staff outside of myself do not have access to [email or web address] charting during the clinic day operations. As part of providing quality comprehensive care the current medications, vitals, and PMH were reviewed in the paper chart. 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 The patient does not report intolerable side effects. The patient is NOT opioid naive and non-pharmacologic and non-opioid treatment has failed to significantly relieve the patient's pain and improve functionality. The patient has a diagnosis that is related to a somatic or visceral pain etiology. ? ?? I reviewed with the patient the potential risks and side effects with the use of? opioid medications including but not limited to respiratory depression,? sedation, and even . Within the last 12 months I have verified the patient has access to naloxone should? these effects occur. The patient was advised to let? their family know they had Naloxone in case they would need to administer? the medication. I advised the patient to avoid the use of any other? sedation substances including alcohol, THC, and benzodiazepines while? taking opioid medications due to the risk of compounding side effects and? detrimental outcomes. within the last 12 months I have reviewed the [employer], pain treatment agreement and urine drug screen.? ?? A drug screen was completed within the last year, and no aberrancies were noted regarding their use of controlled substances. The patient understands they are subject to the terms and conditions of the pain contract that they have signed. ? ?? I have checked an OARRS report on this patient today and there are no aberrancies noted in the prescribing history.? (3) Chronic myofascial pain: (4) Frequent falls: Plan continue tramadol 50mg BID PRN moderate to severe pain continue utilizing walker, continue with PT continue f/u with PC and neurology for parkinsons continue otc tylenol f/u 3 months for medication management, sooner if needed
== END 2025-06-08 08:18 | disposition home or self-care (01) ==
LOC: PM 08:17
PROVIDERS: PCP Family Medicine; Visit Provider Nurse Practitioner
DX: M47.816 Spondylosis without myelopathy or radiculopathy, lumbar region (principal); Z79.891 Long term (current) use of opiate analgesic; M79.18 Myalgia, other site; R29.6 Repeated falls
CPT/HCPCS: G0463

== ENCOUNTER 2025-09-07 10:31 | Outpatient (OUT) | payer MEDICARE, SELFPAY ==
--- OUTSIDE RECORDS SUMMARY | 2024-10-28 05:10 | XMS_ITS ---
Author Organization [facility] in [place] Address [address] [place] [address] Care Team Providers Care Air Brake Worker Name Role Phone Gerald Field DO Primary Care Provider Ethan Heredia [phone] REASON FOR VISIT 1 year f/u with PSA Encounters Encounter Location Date Provider Diagnosis Urology [facility] [address] [address] 10/28/2024 Ethan Chowdary Plan Of Treatment No Information Progress Notes * Ramon CRUZ BDOB: [birth year] (80 yo M)Acc No.[id number]:10/28/2024 UNLOCKED PROGRESS NOTE Patient:?Ramon CRUZ :?Ethan Chowdary MDDOB:1945???Age:79 Y ???Sex:MaleDate:10/28/2024Phone:[phone]:[id number] [facility] [address] [address] [place] [phone]:Gerald Field DO Subjective: * Chief Complaints: * 1 . 1 year f/u with PSA. * Medical History: Objective: * Vitals: Assessment: Plan: * Treatment: * * Electronic signature of Ethan Chowdary MD, [id number] on 09/07/2025 at 10:35 AM ESTSign off status: PendingVisit Status:?R/S (Rescheduled) * Provider: Rao Chowdary MD Date: 0 10/28/2024 Generated for Printing/Faxing/eTransmitting on:?09/07/2025 10:35 AM EST
--- OUTSIDE RECORDS SUMMARY | 2025-06-16 04:30 | XMS_ITS ---
Author Organization [facility] [place] Address [address] [place] [address] Care Team Providers Care Line Installer Trolley Name Role Phone Gerald Field DO Primary Care Provider Ethan Heredia [phone] REASON FOR VISIT 6 mo f/u w PVR Encounters Encounter Location Date Provider Diagnosis Urology [facility] [address] [address] 06/16/2025 Ethan Chowdary Plan Of Treatment No Information Progress Notes * Ramon CRUZ BDOB: [birth year] (80 yo M)Acc No.[id number]:06/16/2025 UNLOCKED PROGRESS NOTE Patient:?Ramon CRUZ :?Ethan Chowdary MDDOB:1945???Age:79 Y ???Sex:MaleDate:06/16/2025Phone:[phone]:[address] [place] [phone]:Gerald Field DO Subjective: * Chief Complaints: * 1 . 6 mo f/u w PVR. * Medical History: Objective: * Vitals: Assessment: Plan: * Treatment: * * Electronic signature of Ethan Chowdary MD, [id number] on 09/07/2025 at 10:35 AM ESTSign off status: PendingVisit Status:?CANC (Cancelled) * Provider: Rao Chowdary MD Date: 0 06/16/2025 Generated for Printing/Faxing/eTransmitting on:?09/07/2025 10:35 AM EST
--- OUTSIDE RECORDS SUMMARY | 2025-08-25 13:45 | XMS_ITS | Encounter Summary ---
Author Organization [facility] Address [address] [facility] [place] [address] Care Team Providers Care Inventory Control Coordinator Name Role Phone Gerald Field DO Primary Care Provider [phone] Gerald Field DO Unavailable Gregory Ybarra MD Unavailable [phone] Sunny Yusuf DO Unavailable Eusebio Guerin MD Unavailable Hillary Wilhelm Unavailable Encounter Details DateTypeDepartmentCare Team (Latest Contact Info)Zqohyumihuc77/13/2025 1:45 PM ESTOffice Visit [facility] [address] [place] [address] Tanja Connell DPM [address] [place] [address] Hammer toes of both feet (Primary Dx); Pain in both feet Social History Tobacco UseTypesPacks/DayYears UsedDateSmoking Tobacco: FormerCigarettes1.522 Smokeless Tobacco: NeverAlcohol UseStandard Drinks/WeekCommentsNot Currently0 (1 standard drink = 0.6 oz pure alcohol)caffeine intake : ourdS3723 Health Literacy AnswerDate RecordedHow often do you need to have someone help you when you read instructions, pamphlets, or other written material from your doctor or pharmacy? Zviqqx6103/25/2024Social Connection and Isolation PanelAnswerDate Recorded Frequency of Communication with Friends and FamilyNot on file03/25/2024Frequency of Social Gatherings with Friends and FamilyNot on file03/25/2024How often do you attend orthodox or scientologist services?More than 4 times per year03/25/2024o you belong to any clubs or organizations such as orthodox groups, unions, fraternal or athletic groups, or school groups?No03/25/2024How often do you attend meetings of the clubs or organizations you belong to?Never03/25/2024re you , , , , never , or living with a partner?Mohyhpm6603/25/2024UDIT-CAnswerDate RecordedQ1: How often do you have a drink containing alcohol?Monthly or less03/25/2024Q2: How many drinks containing alcohol do you have on a typical day when you are drinking?1 or Q3: How often do you have six or more drinks on one occasion?Never03/25/2024Overall Financial Resource Strain (CARDIA)AnswerDate RecordedHow hard is it for you to pay for the very basics like food, housing, medical care, and heating?Not hard at all03/25/2024HQ-2AnswerDate RecordedPatient Health Questionnaire-2 Score0 08/08/2025[facility] - Occupational Stress QuestionnaireAnswerDate RecordedDo you feel stress - tense, restless, nervous, or anxious, or unable to sleep at night because yourmind is troubled all the time - these days?Not at all03/25/2024Exercise Vital SignAnswerDate RecordedOn average, how many days per week do you engage in moderate to strenuous exercise (like a brisk walk)?0 days03/25/2024On average, how many minutes do you engage in exercise at this level?0 min03/25/2024Hunger Vital SignAnswerDate Recorded Within the past 12 months, you worried that your food would run out before you got the money to buymore.Never true03/25/2024Within the past 12 months, the food you bought just didn't last and you didn't have money to get more.Never true 03/25/2024RAPARE - TransportationAnswerDate RecordedIn the past 12 months, has lack of transportation kept you from medical appointments or from getting medications?No03/25/2024In the past 12 months, has lack of transportation kept you from meetings, work, or from getting things needed for daily living?No 03/25/2024Housing Stability Vital SignAnswerDate RecordedIn the last 12 months, was there a time when you were not able to pay the mortgage or rent on time?No 03/17/2024In the last 12 months, how many places have you lived?In the last 12 months, was there a time when you did not have a steady place to sleep or slept in ashelter (including now)?No03/17/2024Housing Stability Vital SignAnswerDate RecordedIn the last 12 months, was there a time when you were not able to pay the mortgage or rent on time?No03/25/2024In the past 12 months, how many times have you moved where you were living?t any time in the past 12 months, were you homeless or living in a care home (including now)?No 03/25/2024Sex and Gender InformationValueDate RecordedSex Assigned at BirthNot on fileLegal OutNjid1112/25/2022 10:58 PM EDTGender IdentityNot on fileSexual OrientationNot on filedocumented as of this encounter Progress Notes * Tanja Connell, JENA - 08/25/2025 1:45 PM EST Images from the original note were not included. HPI: Patient has noted a hammertoe deformity for the past chronic. He is having pain to the toe mostly related with shoe gear and pressure. Patient has tried none for treatment without improvement. They relate a negative family history of foot deformities. He tried the crest pads, but this started to cause a wound on the left 2nd digit so they discontinued it. They would like to proceed with the tenotomy procedure that we discussed due to his persistent pain and symptoms. No other pedal complaints. Exam: General Examination: GENERAL APPEARANCE: awake, aware of surroundings, in no acute distress FOOT EXAM: 08/17/25 Vascular: DORSALIS PEDIS PULSE: 2/4 bilateral POSTERIOR TIBIAL PULSE: 1/4 bilateral TEMPERATURE GRADIENT: warm to cool EDEMA: none CAPILLARY FILLING TIME(sec): capillary fill intact bilateral digits less than 3 secs Neurologic: VIBRATORY: decreased to the hallux IPJ bilateral SEMMES-MIKE 5.07 MONOFILAMENT: decreased along the toes, intact to the plantar ball of the foot and toes Dermatologic: SKIN FINDINGS: normal HYPERKERATOSIS: end of the left 2nd digit NAIL PATHOLOGY: digits 1-5 bilateral are intact SKIN PATHOLOGY: thin, decreased hair growth bilateral Orthopedic: FOOT MORPHOLOGY: neutral JOINT RANGE OF MOTION: without pain or crepitus to the ankle, subtalar joint and 1st MPJ bilateral DEFORMITIES: mild hammertoes bilateral, 2nd digit bilateral hammertoe MUSCLE STRENGTH: 5/5 for all pedal groups tested Assessments: ICD E11.49 - DM neuro manif type II: ICD B35.1 - Dermatophytosis of nail: ICD M79.672 - Pain in left foot: ICD M79.671 - Pain in right foot: Callous left 2nd digit Hammertoe 2nd digit bilateral Treatment Note: Hammertoe: 1. Discussed with patient the findings of the examination and further options for treatment including conservative and surgical treatment of the deformities. 2. Specifically discussed with the patient conservative treatment including shoe gear modification,stretching of the shoes, corrective splinting which may alleviate some tenderness but does not provide long-term correction of the deformity and padding with silpos vs. use of crest pads for splinting. 3. Briefly discussed with the patient the surgical options for correction of the deformity including hammertoe arthrodesis vs, arthroplasty and addressing the deformity at the MPJ if applicable and the associated surgical procedure, complications and recovery time. Based on the proximal nature of the hammertoe I do feel that the patient would be of a candidate for a flexor tenotomy. We discussed the benefits of this procedure be more minimally invasive as well as the shortened recovery time. documented in this encounter Plan of Treatment DateTypeDepartmentCare Team (Latest Contact Info)Whmzmdqyoqa83/04/2025 2:00 PM ESTOffice Visit [facility] [place] [facility] [address] [place] [phone] Tanja Connell, DPM [address] [place] [address] 09/20/2025 11:20 AM ESTOffice Visit [facility] [address] [place] [address] Gerald Field DO [address] [place] [address] 09/29/2025 1:45 PM ESTOffice Visit [facility] [place] [facility] [address] [place] [phone] Tanja Connell, DPM [address] [place] [address] 11/01/2025 10:00 AM ESTProcedure Visit [facility] [place] [facility] [address] [place] [address] Tanja Connell, DPM [address] [place] [address] 02/01/2026 9:05 AM EDTOffice Visit [facility] [facility] [address] [place] [phone] Mary Davies MD [address] [place] [address] documented as of this encounter Visit Diagnoses Diagnosis Hammer toes of both feet- Primary Pain in both feet documented in this encounter Additional Health Concerns AssessmentNoted TimePHQ-9 Depression Total Score: 6003/01/2025 10:00 AM EDT documented as of this encounter Care Teams Team MemberRelationshipSpecialtyStart DateEnd Date Gerald Field DO [address] [place] [address] PCP - GeneralFamily Medicine02/18/23 Gerald Field DO [address] [place] [address] PCP - ACO Reach12/12/23 Gregory Ybarra MD [address] [place] [address] Referring PhysicianSle Eefzjwgz83/29/24 Sunny Vasquez DO [address] [place] [address] Kebpfssnhcioye85/29/24 Eusebio Guerin MD [address] [place] [address] Referring IugmllrkvNvdnmotdj99/25/24 Hillary Wilhelm PA [address] [place] [address] Physician AssistantNeurology12/29/24documented as of this encounter
--- OUTSIDE RECORDS SUMMARY | 2025-09-07 10:34 | XMS_ITS | Clinical Summary ---
Author Organization [facility] Address [facility] [place] [address] Care Team Providers Care Superintendent Plant Name Role Phone Valentino Field DO Unavailable Unavailable Valentino Field DO Primary Care Provider Unavai lable Allergies No known active allergies Medications MedicationSigDispense QuantityRefillsLast FilledStart DateEnd DateStatus amLODIPine (NORVASC) 2.5 mg tablet Take 2.5 mg by mouth once daily.Active atorvastatin (LIPITOR) 20 mg tablet Take 20 mg by mouth once daily.Active clopidogrel (PLAVIX) 75 mg tablet Take 75 mg by mouth once daily.Active glipiZIDE (GLUCOTROL) 5 mg tablet Take 5 mg by mouth twice daily before meals.Active ramipril (ALTACE) 10 mg capsule Take 10 mg by mouth once daily.Active insulin glargine (LANTUS) 100 unit/mL injection Inject subcutaneously daily at bedtime.Active Active Problems ProblemNoted DateDiagnosed DateHTN (hypertension)03/09/2015Diabetes mellitus type 1, uncontrolled, without bqqxqafeuiqfy28/28/2015Stented coronary artery 03/09/2015ngina ugbpzw9403/09/2015 Social History Tobacco UseTypesPacks/DayYears UsedDateSmoking Tobacco: Never AssessedSex and Gender InformationValueDate RecordedSex Assigned at BirthNot on fileLegal Sex Male09/13/2012 10:21 AM ESTGender IdentityNot on fileSexual OrientationNot on file Last Filed Vital Signs Vital SignReadingTime TakenCommentsBlood Cxjznmcf230/7805 4:37 PM EDT Phxkk898503/09/2015 4:37 PM HQWNclietfuvit07.8 ??C (98.2 ??F)12/29/2008 8:00 AM EDTRespiratory Bbpn218712/29/2008 8:00 AM EDTOxygen Gagjpedtqs64%12/29/2008 8:00 AM EDTInhaled Oxygen Concentration--Ucrrzv961.3 kg (230 lb)03/09/2015 4:37 PM ZQNUylsmo088.7 cm (5' 8 )12/28/2008 3:00 PM EDTBody Mass Index34.9712/28/2008 3:00 PM EDT Plan of Treatment Health MaintenanceDue DateLast DoneCommentsAnxiety Nkhigmjcv79/08/1963Depression Zttqzzpns41/08/1963DTaP,Tdap,Td Vaccine (1 - Tdap)1964Pneumococcal Vaccine: 50+ (1 of 1 - PCV)1995Shingrix Vaccine (1 of 2)1995Diabetes Uctclhsbj36RSV Vaccine (1 - 1-dose 75+ series)2020 Advance Directive Vznixarems90/01/2025Covid-19 Vaccine (1 - 2024- season) 2025Influenza Vaccine (#1)2431QyexfedbbqcMkemddeaygpq39/16/2018, 08/19/2014Colorectal Cancer ScreeningDiscontinuedCT ColonographyDiscontinued Cologuard (FIT-DNA)DiscontinuedFecal Occult BloodDiscontinuedSigmoidoscopy Discontinued Procedures Procedure NamePriorityDate/TimeAssociated DiagnosisCommentsBASIC METABOLIC PANEL STAT12/28/2008 8:30 AM EDT from Last 3 Months or Most Recently Relevant to Health Maintenance Results * (ABNORMAL) BASIC METABOLIC PNL (12/28/2008 8:30 AM EDT)ComponentValueRef Range Test MethodAnalysis TimePerformed AtPathologist BaauykdvfCHR2391 - 25 mg/dL [facility] DXYOVHQSZHMucxzk612414 - 146 mmol/LFAIRVIEW LABORATORYPotassium4.33.5 - 5.0 mmol/L[facility] PNFMZRARHUUafcnjou30126 - 110 mmol/LFAIRVIEW LABOR[facility]ORY EI99936 - 32 mmol/L[facility] ZOYIAFNNXDGgkuxrr281(H)65 - 100 mg/dLFAIRVIEW LABORATORYCreatinine0.800.70 - 1.40 mg/dLFAIRVIEW LABORATORYCalcium9.58.5 - 10.5 mg/dLFAIRVIEW LABORATORYGlom Filtration Rate (SHERWIN)>60>60 ml/min/1.73sqm [facility] LABORATORYGlom Filtration Rate (AA)>60>60 ml/min/1.73sqmFAIRVIEW LABORATORYSpecimen (Source)Anatomical Location / LateralityCollection Method / VolumeCollection TimeReceived TimeBlood specimen (specimen)BLOOD SPECIMEN / Mnobyzh3412/28/2008 8:30 AM EDT12/28/2008 8:52 AM EDT Narrative Authorizing ProviderResult TypeResult StatusAli N (Hist) ShaikhLABORATORYFinal ResultPerforming OrganizationAddressCity/State/ZIP CodePhone Number [facility] [address] [place], [place] [id number] from Last 3 Months or Most Recently Relevant to Health Maintenance Insurance * Guarantor: Ramon Mariee TypeRelation to PatientDate of BirthPhone Billing AddressPersonal/WlbjlrBcqo1945 [id number] [address] Care Teams Team MemberRelationshipSpecialtyStart DateEnd Date Valentino Field DO PCP - GeneralFamily Fivlaofu97/10/20 Valentino Field DO [facility] Tduuuxxa88/10/20
--- OUTSIDE RECORDS SUMMARY | 2025-09-07 10:35 | XMS_ITS | Clinical Summary ---
Author Organization [facility] Address [address] [place] [address] Phone Care Team Providers Care Email Producer Name Role Phone Ashlee Henry MD Primary Care Provider [phone] Social History Tobacco UseTypesPacks/DayYears UsedDateSmoking Tobacco: Never AssessedSex and Gender InformationValueDate RecordedSex Assigned at BirthNot on fileLegal Sex Male09/06/2022 11:52 AM ESTGender IdentityNot on fileSexual OrientationNot on file Last Filed Vital Signs Vital SignReadingTime TakenCommentsBlood Iukpvfab727/6208 10:03 AM EDT Dzmbz384005/27/2022 10:03 AM JTLBugfwbbfrih85.8 ??C (96.4 ??F)05/27/2022 10:03 AM EDTRespiratory Rate--Oxygen Rycdsfciuj77%05/27/2022 10:03 AM EDTInhaled Oxygen Concentration--Rcapux62.8 kg (209 lb)05/27/2022 10:03 AM JVAZunucj371.7 cm (5' 8 )05/27/2022 10:03 AM EDTBody Mass Index31.78005/27/2022 10:03 AM EDT Plan of Treatment Health MaintenanceDue DateLast DoneCommentsDTaP/Tdap/Td Vaccines (1 - Tdap) 1967Zoster Vaccines (2 of 3)Pneumococcal Vaccine (2 of 2 - PCV), 11/04/2012RSV High Risk: (Elderly (60+) or Population) (1 - 1-dose 75+ series)2020Medicare Annual Wellness Visit (AWV)/12/2022, 09/27/2021, 06/28/2020, Additional history existsInfluenza Vaccine (#1)512/, 2021, 07/28/2019, Additional history existsCOVID-19 Vaccine ( - season)2025Lipid Panel/, 09/05/2021, 04/07/2019, Additional history exists Irritable Bowel GzukzmwjUruddksnmmtn73/07/2014HIB VaccinesAged OutNo longer eligible based on patient's age to complete this topicHPV VaccinesAged OutNo longer eligible based on patient's age to complete this topicHepatitis A VaccinesAged OutNo longer eligible based on patient's age to complete this topic Hepatitis B VaccinesAged OutNo longer eligible based on patient's age to complete this topicIPV VaccinesAged OutNo longer eligible based on patient's age to complete this topicMeningococcal VaccineAged OutNo longer eligible based on patient's age to complete this topicRotavirus VaccinesAged OutNo longer eligible based on patient's age to complete this topic Procedures Procedure NamePriorityDate/TimeAssociated DiagnosisCommentsLIPID PANELRoutine 05/27/2022 10:49 AM EDT OVDCRFKVEID47/07/2014 from Last 3 Months or Most Recently Relevant to Health Maintenance Results * (ABNORMAL) Lipid Panel (05/27/2022 10:49 AM EDT)ComponentValueRef RangeTest MethodAnalysis TimePerformed AtPathologist IrfegicnoXuilospdhpv3474 - 199 mg/dLKINDRED HEALTHCARE LABComment: . ?AGE ?DESIRABLE ?? BORDERLINE HIGH ?? HIGH 0-19 Y 0 - 169 170 - 199 >/= 200 20-24 Y 0 - 189 190 - 224 >/= 225 >24 Y 0 - 199 200 - 239 >/= 240 All ranges are based on fasting samples. Specific therapeutic targets will vary based on patient-specific cardiac risk. . Pediatric guidelines reference:Pediatrics 2011, 128(S5). Adult guidelines reference: NCEP ATPIII Guidelines, ??WALTER 2001, 258:2486-97 . Venipuncture immediately after or during the administration of Metamizole may lead to falsely low results. Testing should be performed immediately prior to Metamizole dosing. HDL37.8(A)mg/dLKINDRED HEALTHCARE LABComment: . ?AGE ?VERY LOW ?? LOW ? NORMAL ?HIGH ?? 0-19 Y < 35 < 40 40-45 ---- 20-24 Y ---- < 40 >45 ---- >24 Y ---- < 40 40-60 >60 . Cholesterol/HDL Ratio3.5[facility] LABComment: REF VALUES DESIRABLE < 3.4 HIGH RISK > 5.0 EFL510 - 99 mg/dLKINDRED HEALTHCARE LABComment: . ? NEAR ?BORD ?AGE ?DESIRABLE ??OPTIMAL ?HIGH ? HIGH ? VERY HIGH 0-19 Y 0 - 109 --- 110-129 >/= 130 ---- 20-24 Y 0 - 119 --- 120-159 >/= 160 ---- >24 Y 0 - 99 100-129 130-159 160-189 >/=190 . ZDLE756 - 40 mg/dLKINDRED [facility]ALTHCARE TXUPonfbjlovxyex833(H)0 - 149 mg/dLFIRSTHEALTH MOORE REGIONAL [facility]ITAL - RICHMONDC LABComment: . ?AGE ?DESIRABLE ?? BORDERLINE HIGH ?? HIGH ? VERY HIGH 0 D-90 D ?19 - 174 ? ---- ? ---- ?---- 91 D- 9 Y 0 - 74 [...] be performed immediately prior to Metamizole dosing. Specimen (Source)Anatomical Location / LateralityCollection Method / Volume Collection TimeReceived Time05/27/2022 10:49 AM EDT05/27/2022 7:12 PM EDT Narrative Authorizing ProviderResult TypeResult StatusPoli Mercado MDASHLAND HEALTH CENTER BLOOD ORDERABLESFinal ResultPerforming OrganizationAddressCity/State/ZIP CodePhone Number [facility] [address] [address] * COLONOSCOPY (08/19/2014)Anatomical RegionLateralityModalityEndoscopy Narrative 08/19/2014 Ordered by an unspecified provider. Authorizing ProviderResult TypeResult StatusOnbase ConversionENDOSCOPY PROCEDURE ORDERABLESFinal Result from Last 3 Months or Most Recently Relevant to Health Maintenance Insurance * Guarantor: Ramon Mariee TypeRelation to PatientDate of BirthPhone Billing AddressPersonal/RtenqkXrhl1945 [id number] [address] Care Teams Team MemberRelationshipSpecialtyStart DateEnd Date Ashlee Henry MD [facility] - General04/12/19
--- OUTSIDE RECORDS SUMMARY | 2025-09-07 10:35 | XMS_ITS | Clinical Summary ---
Author Organization [facility] Address [address] [place] [address] Care Team Providers Care [employer] Supervisor Name Role Phone Gerald Field DO Primary Care Provider [phone] Gerald Field DO Unavailable [phone] Gregory Ybarra MD Unavailable [phone] Sylvesterlupe Sunny Yusuf DO Unavailable Eusebio Guerin MD Unavailable Hillary Wilhelm Unavailable Allergies Active AllergyReactionsCriticalityNoted DbidVxrkdlzwRupfqodaodj31/24/2025 Other Reaction(s): Nausea Qmnjljx8803/01/2024 Medications MedicationSigDispense QuantityRefillsLast FilledStart DateEnd DateStatus insulin pen needle (B-D UF III MINI PEN NEEDLES) 31G x 5 mm misc Indications:Type 2 diabetes mellitus with hyperglycemia, without long-term current use of insulin (HCC)Use daily as directed 100 each 11002/02/2024ctive acetaminophen (Tylenol) 500 MG tablet Indications:PainTake 1,000 mg by mouth DailyActive mirabegron ER (Myrbetriq) 50 MG 24 hr tablet Take 50 mg by mouth 1 (one) time each day at the same time03/18/2024ctive Continuous Glucose Sensor (FreeStyle Wilfred 2 Sensor) misc Indications:Type 2 diabetes mellitus with hyperglycemia, without long-term current use of insulin (HCC),Type 2 diabetes mellitus with stage 3b chronic kidney disease, without long-term current use of insulin ([facility])1 Units every 14 (fourteen) days 2 each 4Active traMADol (Ultram) 50 MG tablet Indications:MyalgiaTake 1 tablet (50 mg) by mouth every 8 (eight) hours if needed for severe pain 30 tablet 5Active tamsulosin (Flomax) 0.4 MG 24 hr capsule Take 0.4 mg by mouth at zibnbfo63/06/2025Active lisinopril 5 MG tablet Indications:Essential (primary) hypertensionTAKE 1 TABLET BY MOUTH EVERY DAY 90 tablet 5Active metoprolol succinate XL (Toprol-XL) 25 MG 24 hr tablet Indications:Hypertensive heart disease with heart failure ([facility])Take 1 tablet (25 mg) by mouth Daily 90 tablet 5Active sildenafil (Viagra) 100 MG tablet Indications:Erectile dysfunction, unspecified erectile dysfunction typeTake 1 tablet (100 mg) by mouth Daily as needed for erectile dysfunction 12 tablet //6Active dapagliflozin-metFORMIN ER (Xigduo XR) 10-500 MG Indications:Type 2 diabetes mellitus without complication, with long-term current use of insulin ([facility])Take 1 tablet by mouth in the morning. Take with meals. 30 tablet 5Active psyllium (Metamucil) 0.36 g capsule Take 6 capsules by mouth DailyActive Aspirin Low Dose 81 MG EC tablet Indications: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, unspecified vessel or lesion type, unspecified whether napaimute or transplanted heart,Type 2 diabetes mellitus without complication, with long-term current use of insulin ([facility])TAKE 1 TABLET BY MOUTH EVERY DAY 90 tablet 5Active carbidopa-levodopa (Sinemet) 25-100 MG tablet Indications:Parkinson's disease with dyskinesia and fluctuating manifestations ([facility])TAKE 2 TABLET BY MOUTH AT 8AM, 2 tablet at eleven, 2 tablets at 2PM, AND 2 tablet at 5PM5Active terbinafine (LamISIL) 250 MG tablet Indications:OnychomycosisTake 1 tablet (250 mg) by mouth Daily 90 tablet 5Active atorvastatin (Lipitor) 20 MG tablet Indications:Hypertensive heart disease with heart failure (HCC)Take 1 tablet (20 mg) by mouth at bedtime 90 tablet 5Active entacapone (Comtan) 200 MG tablet Take 200 mg by mouth in the morning and 200 mg in the evening and 200 mg before bedtime.5Active insulin glargine (Lantus SoloStar) 100 UNIT/ML pen Indications:Type 2 diabetes mellitus without complication, with long-term current use of insulin (HCC)IF BLOOD SUGAR BELOW 150 DO NOT TAKE, IF BLOOD SUGAR BETWEEN 150 AND 250 INJECT 5 UNITS UNDER THE SKIN. IF BLOOD SUGAR OVER 250 INJECT 10 UNITS ONLY ONCE DAILY.5Active nystatin (Mycostatin) 003034 UNIT/GM powder Indications:Tinea crurisApply topically in the morning and before bedtime. ctive ciprofloxacin (Cipro) 500 MG tablet Indications:Cellulitis of other specified siteTake 1 tablet (500 mg) by mouth in the morning and 1 tablet (500 mg) before bedtime. Do all this for 10 days. 20 tablet Discontinued(Reorder) nystatin (Mycostatin) 087839 UNIT/GM powder Indications:Tinea crurisApply topically in the morning and before bedtime. 30 g Discontinued(Reorder) ciprofloxacin (Cipro) 500 MG tablet Indications:Cellulitis of other specified siteTake 1 tablet (500 mg) by mouth in the morning and 1 tablet (500 mg) before bedtime. Do all this for 5 days. 10 tablet Expired Active Problems ProblemNoted DateDiagnosed DateOrthostatic ycprwcvxpkweuhv66/22/2025 Assessment & Plan (05/04/2025 12:14 PM EDT): Reviewed ER notes including labs and imaging. Will lower amlodipine, as pt has lost weight since starting the xigduo and bp is trending lower. Orders: amLODIPine (Norvasc) 5 MG tablet; Take 1 tablet (5 mg) by mouth 1 (one) time each day at the same time Kjtefuljkbm65/25/2025omplication of ventilation ffvmdzc0208/07/2024Myocardial glqwayomiu36/26/2024AC (premature atrial contraction)06/18/2024Status post cardiac pacemaker dealggksc14/06/2024 Assessment & Plan (06/24/2025 12:46 PM EDT): stable S/P PTCA (percutaneous transluminal coronary angioplasty)06/18/2024arkinsonism 03/01/2024 Assessment & Plan (06/24/2025 12:46 PM EDT): Patient advised to return if symptoms worsen and/or persist despite treatment. Assessment & Plan (06/14/2025 9:37 AM EDT): Problem is stable, will continue with current treatment plan. Call or return to clinic if any changes occur Assessment & Plan (05/04/2025 12:14 PM EDT): Problem is stable, will continue with current treatment plan. Call or return to clinic if any changes occur Vitamin D egvyoieuiy77/21/2024Generalized ildjcfkrqamqov09/21/2024DD (degenerative disc disease), afaynpcaqvm69/21/2024 Assessment & Plan (06/14/2025 9:37 AM EDT): Patient advised to return if symptoms worsen and/or persist despite treatment. Type 2 diabetes mellitus with hyperglycemia, without long-term current use of fbjqysb9410/02/2023 Assessment & Plan (06/14/2025 9:37 AM EDT): Reviewed labs and/or imaging at ov today. Will continue current treatment regimen and follow up at next scheduled visit unless problems arise. Benign prostatic eslvfarpwwv25/03/2023oronary artery tjbqhad2905/15/2023iabetic renal brqsnpe4405/15/2023Heart rbsnzlw3405/15/20232464Xtmpydkkowipsk25/03/2023 Assessment & Plan (06/14/2025 9:37 AM EDT): Reviewed labs and/or imaging at ov today. Will continue current treatment regimen and follow up at next scheduled visit unless problems arise. Bolomvcrqas01/03/2023 Assessment & Plan (06/14/2025 9:37 AM EDT): Labs ordered today, will follow up when results available Assessment & Plan (05/04/2025 12:14 PM EDT): Labs ordered today, will follow up when results available Orders: TSH; Future T4, free; Future T3; Future Obstructive sleep apnea omvwszgb42/03/2023eripheral vascular vxokjrw4205/15/2023 Sick sinus yrbgpioz08/03/2023 Assessment & Plan (06/24/2025 12:46 PM EDT): Cont fu with cardiology Stage 3a chronic kidney jfwlmkd7505/15/2023 Assessment & Plan (06/14/2025 9:37 AM EDT): Reviewed labs and/or imaging at ov today. eincouraged hydration. Orders: Microalbumin / creatinine urine ratio; Future Comprehensive metabolic panel; Future CBC and differential; Future Exercise-induced ydfnxx9603/09/20153268Pkcvgovhwelv26/28/2015 Assessment & Plan (06/14/2025 9:37 AM EDT): Record Blood Pressures 2-4 times weekly and record. Return with readings at next appointment. Call with readings if sees significant changes Orders: Comprehensive metabolic panel; Future CBC and differential; Future Assessment & Plan (05/04/2025 12:14 PM EDT): Record Blood Pressures 2-4 times weekly and record. Return with readings at next appointment. Call with readings if sees significant changes Orders: amLODIPine (Norvasc) 5 MG tablet; Take 1 tablet (5 mg) by mouth 1 (one) time each day at the same time Stented coronary dzhldl4603/09/2015 Encounters DateTypeDepartmentCare GkekRsdkdbydadt88/13/2025 1:45 PM ESTOffice Visit [facility] [address] [place] [address] Tanja Connell, DPM Hammer toes of both feet (Primary Dx); Pain in both feet08/25/2025amboo flowsheet [facility] [address] [place] [address] Tanja Connell DPM 08/25/20253308Udlehd70/03/2025 12:40 PM ESTOffice Visit [facility] [address] [place] [address] Gerald Field DO Acquired hammertoes of both feet (Primary Dx); Cellulitis of other specified site; Tinea sdqxdm1710/15/2024amboo flowsheet [facility] [address] [place] [address] Gerald Field DO 08/15/20258371Klvlfc23/28/2025 10:15 AM EDTAncillary Procedure [facility] [address] [place] [address] Falls; Back pain, unspecified back location, unspecified back pain laterality, unspecified chronicity; Hip pain, unspecified uxyzbraskj83/28/2025Results Follow-Up [facility] [address] [place] [address] Frankie Cordon LPN XR hip right 2 or 3 views08/09/20258500Wtyqln64/27/2025 11:40 AM EDTOffice Visit [facility] [address] [place] [address] Gerald Field DO Scrotal edema (Primary Dx); Type 2 diabetes mellitus without complication, with long-term current use of insulin (HCC); Cellulitis of other specified site; Tinea cruris; Chronic bilateral low back pain, unspecified whether sciatica dcfvpvd0608/08/2025 Telephone [facility] [address] [place] [address] Gerald Field DO 08/08/2025amboo flowsheet [facility] [address] [place] [address] Gerald Feild DO 08/08/20251580Bulhix75/14/2025 9:15 AM EDTProcedure Visit [facility] [address] [place] [address] Tanja Connell, JENA Onychomycosis (Primary Dx); Type II diabetes mellitus with neurological manifestations (HCC); Pain in both feet; Corns and callosities; Hammer toes of both feet07/26/2025amboo flowsheet [facility] [address] [place] [address] Tanja Connell DPM 07/26/20253536Zgyove32/23/2025 9:00 AM EDTClinical Support [facility] [address] [place] [address] Urinary tract infection without hematuria, site bknotxuffcp15/23/2025Telephone [facility] [address] [place] [address] Frankie Cordon LPN Ogjyejk4107/05/20252456Etudut31/17/2025Results Follow-Up [facility] [address] [place] [address] Frankie Cordon LPN POCT Urinalysis dipstick, CBC and differential, Basic metabolic panel, Additional followed-up results: Telephone [facility] [address] [place] [address] Frankie Cordon LPN 06/28/2025Refill [facility] [address] [place] [address] Frankie Cordon LPN Urinary tract infection without hematuria, site ixfelynygmv05/12/2025 11:40 AM EDTOffice Visit [facility] [address] [facility] [place] [address] Gerald Field DO Hypotension, unspecified hypotension type (Primary Dx); Altered mental status, unspecified altered mental status type; Falls; Bradycardia; Sick sinus syndrome (HCC); Status post cardiac pacemaker procedure; Parkinson's disease with dyskinesia and fluctuating manifestations (HCC); Urinary tract infection without hematuria, site xibsspjplrw05/12/2025amb flowsheet [facility] [address] [facility] [place] [place] [address] Gerald Field DO 06/24/20251031Odibga05/02/2025 9:00 AM EDTOffice Visit [facility] [address] [facility] [place] [address] Gerald Field DO Degeneration of intervertebral disc of lumbosacral region, unspecified whether pain present (Primary Dx); Type 2 diabetes mellitus with hyperglycemia, without long-term current use of insulin (HCC); Mixed hyperlipidemia ; Hypertension, unspecified type ; Hypothyroidism, unspecified type ; Parkinson's disease with dyskinesia and fluctuating manifestations (HCC); Stage 3a chronic kidney disease ([facility]-HCC); Type 2 diabetes mellitus without complication, with long-term current use of insulin (HCC)06/14/2025[facility] flowsheet [facility] [address] [facility] [place] [address] Gerald Field DO 06/14/20259645Jwglmp53/28/2025Results Follow-Up [facility] [address] [facility] [address] [place] [address] Frankie Cordon LPN Microalbumin / creatinine urine ratio, Comprehensive metabolic panel, CBC and differential, Hemoglobin U8qtsyl Last 3 Months Immunizations ImmunizationAdministration DatesNext DueInfluenza, High Dose Seasonal, Preservative Free2021,07/28/2019,07/13/2018,07/28/2017,07/26/2015 Influenza, High-dose Seasonal, Quadrivalent, Preservative Free07/22/2022, 2021Influenza, Seasonal, Quadrivalent, Yicgkttudw23/15/2023,2020 Influenza, injectable, xkhshuhgbafg17/06/2022Influenza, injectable, quadrivalent, preservative free07/28/2019,07/13/2018,07/28/2017,07/26/2015 Influenza, trivalent, jnbrsboxbh04/31/2024Moderna Bivalent Booster Vaccination 2Pneumococcal Conjugate PCV 3Pneumococcal Polysaccharide TMQU913810/25/2017,11/04/2012RSV, recombinant, protein subunit RSVpreF, adjuvant reconstitu, 120mcg/0.5mL, PF (Arexvy)06/22/2024Tdap111/24/2013Zoster, Recombinant 10/04/2020,08/04/2020Zoster, live10/09/2012 Family History Medical HistoryRelationNameCommentsHeart diseaseFatherElmer KolkerCancerMother Vicky KolkerDiabetesSisterChristine KolkerRelationNameStatusCommentsDaughter2 daughtersFatherElmer KolkerDeceasedMotherMarie KolkerDeceasedSisterChristine KolkerAlive1 sisterSon1 son Social History Tobacco UseTypesPacks/DayYears UsedDateSmoking Tobacco: FormerCigarettes1.522 Smokeless Tobacco: Never Tobacco Cessation:Counseling Given: Yes Alcohol UseStandard Drinks/WeekCommentsNot Currently0 (1 standard drink = 0.6 oz pure alcohol)caffeine intake : inxzO6293 Health LiteracyAnswerDate RecordedHow often do you need to have someone help you when you read instructions, pamphlets, or other written material from your doctor or pharmacy?Rarely 03/25/2024Social Connection and Isolation PanelAnswerDate RecordedFrequency of Communication with Friends and FamilyNot on file03/25/2024Frequency of Social Gatherings with Friends and FamilyNot on file03/25/2024How often do you attend orthodoxy or mu-ism services?More than 4 times per year03/25/2024o you belong to any clubs or organizations such as orthodoxy groups, unions, fraternal or athletic groups, or school groups?No03/25/2024How often do you attend meetings of the clubs or organizations you belong to?Never03/25/2024re you , , , , never , or living with a partner? 03/25/2024UDIT-CAnswerDate RecordedQ1: How often do you have a [...] housing, medical care, and heating?Not hard at all 03/25/2024HQ-2AnswerDate RecordedPatient Health Questionnaire-2 Score0 08/08/2025[facility] [place] [facility] - Occupational Stress QuestionnaireAnswerDate [...] were you homeless or living in a group home (including now)?No 03/25/2024Sex and Gender InformationValueDate RecordedSex Assigned at BirthNot on fileLegal ZdjOmbe9012/25/2022 10:58 PM EDTGender IdentityNot on fileSexual OrientationNot on file Last Filed Vital Signs Vital SignReadingTime TakenCommentsBlood Xmaqxurq110/6408/15/2025 12:42 PM EST Oarcx833208/15/2025 12:42 PM TANCeppldvpetv25.1 ??C (96.9 ??F)08/15/2025 12:42 PM ESTRespiratory Frap668611/06/2023 10:17 AM ESTOxygen Myzbkhqbpu79%08/15/2025 12:42 PM ESTInhaled Oxygen Concentration--Jdkxue36 kg (183 lb)08/15/2025 12:42 PM EST Vyqhoa011.6 cm (5' 6 )08/15/2025 12:42 PM ESTBody Mass Index29.5408/15/2025 12:42 PM EST Plan of Treatment DateTypeDepartmentCare Team (Latest Contact Info)Hzmffqmqblr15/04/2025 2:00 PM ESTOffice Visit [facility] [address] [facility] [address] [place] [phone] Tanja Connell DPM [address] [facility] [address] [place] [address] 09/20/2025 11:20 AM ESTOffice Visit [facility] [address] [place] [address] Gerald Field DO [address] [place] [address] 09/29/2025 1:45 PM ESTOffice [address] [facility] [address] [place] [address] Tanja Connell, DPM [address] [place] [address] 11/01/2025 10:00 AM ESTProcedure Visit [facility] [address] [place] [address] Tanja Connell, DPM [address] [place] [address] 02/01/2026 9:05 AM EDTOffice Visit [facility] [address] [place] [address] Mary Davies MD [address] [place] [address] Health MaintenanceDue DateLast DoneCommentsCOVID-19 Vaccine ( season) , 10/21/2024, 09/14/2023, Additional history existsDiabetes: Hemoglobin A1C/, 02/22/2025, 10/19/2024, Additional history existsDiabetes: Urine Protein Fnecrahhw40, 02/22/2025, 10/19/2024, Additional history existsDiabetes: Retinopathy Nqgekqokd48/03/2027 11/15/2024, 4Pneumococcal Vaccine: 65+ CjmtoMbguomdjj74/12/2023, 08/25/2018, 11/04/2012Influenza DxwtphjWvpeooxss76/10/2025, 08/12/2024, 08/27/2023, Additional history exists Procedures Procedure NamePriorityDate/TimeAssociated DiagnosisCommentsXR HIP 2 OR 3 VW VDFNQCswebhg42/28/2025 10:20 AM EDT Falls Hip pain, unspecified laterality XR LUMBAR SPINE 2-3 GPMWFYgocwvn56/28/2025 10:20 AM EDT [place] Back pain, unspecified back location, unspecified back pain laterality, unspecified chronicity POCT URINALYSIS AQNHKXPLCmhosbz97/23/2025 9:44 AM EDT Urinary tract infection without hematuria, site unspecified BASIC METABOLIC OZEEXOrcgglh44/12/2025 12:49 PM EDT Altered mental status, unspecified altered mental status type Hypotension, unspecified hypotension type [place] CBC (INCLUDES DIFF/PLT)Zbjlcxf4806/24/2025 12:49 PM EDT Altered mental status, unspecified altered mental status type Hypotension, unspecified hypotension type Falls T3, DJXSGGtkeaww48/12/2025 12:48 PM EDT Hypothyroidism, unspecified type T4, TXJZKokqogi09/12/2025 12:48 PM EDT Hypothyroidism, unspecified type ZSGCtdkrvl48/12/2025 12:48 PM EDT Hypothyroidism, unspecified type POCT URINALYSIS HCFZLSDKOpnsyac18/12/2025 12:33 PM EDT Altered mental status, unspecified altered mental status type URINE CULTURE CLEAN CATCH HVZQSISeoqfkg72/12/2025 12:00 AM EDT CULTURE, URINE, YJGXMEOCfawwri12/12/2025 12:00 AM EDT Altered mental status, unspecified altered mental status type HEMOGLOBIN J4QZvxblzc39/27/2025 9:40 AM EDT Type 2 diabetes mellitus without complication, with long-term current use of insulin (HCC) CBC (INCLUDES DIFF/PLT)Esvkogt8906/08/2025 9:40 AM EDT Type 2 diabetes mellitus without complication, with long-term current use of insulin (HCC) 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, unspecified vessel or lesion type, unspecified whether napaimute or transplanted heart Hypertension, unspecified type Mixed hyperlipidemia Stage 3a chronic kidney disease ([facility]-HCC) Type 2 diabetes mellitus with hyperglycemia, without long-term current use of insulin (HCC) Erectile dysfunction, unspecified erectile dysfunction type COMPREHENSIVE METABOLIC CVEPEViclbtu35/27/2025 9:40 AM EDT Type 2 diabetes mellitus without complication, with long-term current use of insulin (HCC) 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, unspecified vessel or lesion type, unspecified whether napaim[place] or transplanted heart Hypertension, unspecified type Mixed hyperlipidemia Stage 3a chronic kidney disease (CMS-HCC) Type 2 diabetes mellitus with hyperglycemia, without long-term current use of insulin (HCC) Erectile dysfunction, unspecified erectile dysfunction type MICROALBUMIN / CREATININE URINE IQMOKDhjnggd08/27/2025 9:40 AM EDT Type 2 diabetes mellitus without complication, with long-term current use of insulin (HCC) DIABETIC RETINOPATHY SCREENING - OU - BOTH HPNMPnwkpxl43/03/2025 1:29 PM ESTfrom Last 3 Months or Most Recently Relevant to Health Maintenance Results * XR hip right 2 or 3 views (08/09/2025 10:20 AM EDT)Anatomical RegionLaterality ModalityLower Extremities, HipRightRadiographic ImagingSpecimen (Source) Anatomical Location / LateralityCollection Method / VolumeCollection Time Received Time08/09/2025 11:14 AM EDT Impressions 08/09/2025 11:15 AM EDT No acute osseous abnormality. ELECTRONICALLY SIGNED BY: Roberto Anders DO Narrative 08/09/2025 11:15 AM EDT EXAMINATION: XR HIP 2 OR 3 VW RIGHT HISTORY: Hip pain since a fall COMPARISONS: None available TECHNIQUE: Frontal view of the pelvis and frontal and lateral views of the hip. FINDINGS: No acute proximal femur fracture. ??No hip dislocation. Mild degenerative changes of both hips. Prominence at the femoral head-neck junction can be seen with cam type impingement. Visualized bones ofthe pelvis are within normal limits. Degenerative changes of the lower lumbar spine. Atherosclerotic vascular calcifications noted. Procedure Note Roberto Anders DO - 08/09/2025 EXAMINATION: XR HIP 2 OR 3 VW RIGHT HISTORY: Hip pain since a fall COMPARISONS: None available TECHNIQUE: Frontal view of the pelvis and frontal and lateral views of thehip. FINDINGS: No acute proximal femur fracture. No hip dislocation. Mild degenerativechanges of both hips. Prominence at the femoral head-neck junction can beseen with cam type impingement. Visualized bones of the pelvis are withinnormal limits. Degenerative changes of the lower lumbar spine.Atherosclerotic vascular calcifications noted. IMPRESSION: No acute osseous abnormality. ELECTRONICALLY SIGNED BY: Roberto Anders DO Authorizing ProviderResult TypeResult StatusGeorroshni Field DOI XR PROCEDURES Final Result * XR lumbar spine 2 or 3 views (08/09/2025 10:20 AM EDT)Anatomical Region LateralityModalitySpine, L-spineRadiographic ImagingSpecimen (Source) Anatomical Location / LateralityCollection Method / VolumeCollection Time Received Time08/09/2025 11:56 AM EDT Impressions 08/09/2025 12:04 PM EDT No acute osseous abnormality. Degenerative changes of the lumbar spine. ELECTRONICALLY SIGNED BY: Roberto Anders DO Narrative 08/09/2025 12:04 PM EDT EXAMINATION: XR LUMBAR SPINE 2-3 VIEWS TECHNIQUE: 4 views of the lumbar spine. HISTORY: Low back pain COMPARISONS: None available. FINDINGS: Minimal dextrocurvature. Lumbar vertebral body heights are maintained. Moderate intervertebral discheight loss at L5-S1 and mild intervertebral disc height loss elsewhere throughout the lumbar spine. Multilevel degenerative endplate spurring. Facet arthropathy throughout the lumbar spine. No acutefracture. No spondylolysis or spondylolisthesis. Atherosclerotic calcification of the abdominal aorta. Procedure Note Roberto Anders DO - 08/09/2025 EXAMINATION: XR LUMBAR SPINE 2-3 VIEWS TECHNIQUE: 4 views of the lumbar spine. HISTORY: Low back pain COMPARISONS: None available. FINDINGS: Minimal dextrocurvature. Lumbar vertebral body heights are maintained.Moderate intervertebral disc height loss at L5-S1 and mild intervertebraldisc height loss elsewhere throughout the lumbar spine. Multileveldegenerative endplate spurring. Facet arthropathy throughout the lumbarspine. No acute fracture. No spondylolysis or spondylolisthesis.Atherosclerotic calcification of the abdominal aorta. IMPRESSION: No acute osseous abnormality. Degenerative changes of the lumbar spine. ELECTRONICALLY SIGNED BY: Roberto Anders DO Authorizing ProviderResult TypeResult StatusGerald Field DOI XR PROCEDURES Final Result * POCT Urinalysis dipstick (07/05/2025 9:44 AM EDT) Only the most recent of2 resultswithin the time period is included. ComponentValueRef RangeTest MethodAnalysis TimePerformed AtPathologist Signature Color, UAYellowClarity, UAClearGlucose, UA2+Negative - 1999(110) ++++ mg/dL Bilirubin, UANegativeNegative - 4(70) +++ mg/dLKetones, UANegativeNegative - 160(16) ++++ mg/dLSpec Grav, UA1.0151 - 1.03Blood, UANegativeNegative - 50 Dario/mcLpH, UA5.05 - 9Protein, UANegativeNegative - 2000(20) ++++ mg/dL Urobilinogen, UA1.00.2 - 12 mg/dLLeukocytes, UANegativeNegative - 500+++ Jenn/mcL Nitrite, UANegativeNegative - PositiveSpecimen (Source)Anatomical Location / LateralityCollection Method / VolumeCollection TimeReceived HynvWeddl84/23/2025 9:44 AM EDT Narrative Authorizing ProviderResult TypeResult StatusGerald Field DOPOINT OF CARE TEST ENTER/EDIT ORDERABLESFinal Result * (ABNORMAL) CBC and differential (06/24/2025 12:49 PM EDT) Only the most recent of2 resultswithin the time period is included. ComponentValueRef RangeTest MethodAnalysis TimePerformed AtPathologist Signature WBC21.6(HH)3.4 - 10.8 x10E3/uLLABCORPRBC4.00(L)4.14 - 5.80 x10E6/uLLABCORPHgb 11.9(L)13.0 - 17.7 g/cULYFLTKXYqb47.9(L)37.5 - 51.0 %BTYBZLQWPE6965 - 97 fL REAERAMEVW31.826.6 - 33.0 chSWCZSFZAHSU73.131.5 - 35.7 g/vKBSEHMZYOCE68.211.6 - 15.4 %BBHNLNCMzogvudux046780 - 450 x10E3/vPKYKXOBXXiiervoyslr61Wez Estab. % ENSTOUEVlqhrd5Ozr Estab. %DGFLDZUZvnlxvswj3Grg Estab. %VCDKBCBWfq6Onr Estab. % STDEIAIOixem3Yfj Estab. %LABCORPNeutrophils Abs18.7(H)1.4 - 7.0 x10E3/uLLABCORP Lymphs Abs1.60.7 - 3.1 x10E3/uLLABCORPMonocytesAbs1.3(H)0.1 - 0.9 x10E3/uL LABCORPEos Abs0.00.0 - 0.4 x10E3/uLLABCORPBaso Abs0.10.0 - 0.2 x10E3/uLL[facility]P Immature Ekvmsmvdprqh1Aos Estab. %LABCORPImmature Grans Abs0.10.0 - 0.1 x10E3/uL LABCORPHem CommentsNote:LABCORPComment:Verified by microscopic examination. Specimen (Source)Anatomical Location / LateralityCollection Method / Volume Collection TimeReceived TimeBloodVenous blood specimen / Semnetw7006/24/2025 12:49 PM EDT06/24/2025 Narrative [facility] - 06/24/2025 5:07 PM EDT Performed at: 01 - [facility] [address] , [address], [place], [place] ??[id number] Ticket Worker: Edgar Armenta MD, Phone: ??[phone] Authorizing ProviderResult TypeResult StatusGecrispin JERNIGAN BLOOD ORDERABLESFinal ResultPerforming OrganizationAddressCity/State/ZIP CodePhone Number [facility] * (ABNORMAL) Basic metabolic panel (06/24/2025 12:49 PM EDT)ComponentValueRef RangeTest MethodAnalysis TimePerformed AtPathologist PoshnfircFhgagdb023(H)70 - 99 mg/gGDLGQSGWXNA81(H)8 - 27 mg/dLLABCORPCreat1.81(H)0.76 - 1.27 mg/dL WEZOKMFPMVG41(L)>59 mL/min/1.73LABCORPBUN/Creat Ratio28(H)10 - 24LABCORPSodium 476036 - 144 mmol/LLABCORPPotassium4.43.5 - 5.2 mmol/ACKXPWDRIlbdqyzc85266 - 106 mmol/LLABCORPCarbon Gjscsty80(L)20 - 29 mmol/LLABCORPCalcium9.18.6 - 10.2 mg/dLLABCORPSpecimen (Source)Anatomical Location / LateralityCollection Method / VolumeCollection TimeReceived TimeBloodVenous blood specimen / Unknown 06/24/2025 12:49 PM EDT06/24/2025 Narrative [facility] - 06/24/2025 5:07 PM EDT Performed at: 01 - [place] [address] [facility], [address], [place], [place] ??[id number] Ticket Worker: Edgar Armenta MD, Phone: ??[phone] Authorizing ProviderResult TypeResult StatusGeorroshni JERNIGAN BLOOD ORDERABLESFinal ResultPerforming OrganizationAddressCity/State/ZIP CodePhone Number [facility] * (ABNORMAL) T3 (06/24/2025 12:48 PM EDT)ComponentValueRef RangeTest Method Analysis TimePerformed AtPathologist SignatureT3 Xuzpnutlnnkkyduu87(L)71 - 180 ng/dLLABCORPSpecimen (Source)Anatomical Location / LateralityCollection Method / VolumeCollection TimeReceived TimeBloodVenous blood specimen / Unknown 06/24/2025 12:48 PM EDT06/24/2025 Narrative [facility] - 06/25/2025 6:07 AM EDT Performed at: 02 - [address] ??[id number] Ticket Worker: Nahun Pickering PhD, Phone: ??[phone] Authorizing ProviderResult TypeResult StatusGeorge R Kaftan DOLAB BLOOD ORDERABLESFinal ResultPerforming OrganizationAddressCity/State/ZIP CodePhone Number [facility] * TSH (06/24/2025 12:48 PM EDT)ComponentValueRef RangeTest MethodAnalysis Time Performed AtPathologist SignatureTSH1.9900.450 - 4.500 uIU/mLLABCORPSpecimen (Source)Anatomical Location / LateralityCollection Method / VolumeCollection TimeReceived TimeBloodVenous blood specimen / Qyclxnu4506/24/2025 12:48 PM EDT 06/24/2025 Narrative [facility] - 06/25/2025 6:07 AM EDT Performed at: - [place] [address] [address] [facility], [address] [place] [address] ??[id number] Ticket Worker: Edgar Armenta MD, Phone: ??[phone] Authorizing ProviderResult TypeResult StatusGeorge R Kaftan DOLAB BLOOD ORDERABLESFinal ResultPerforming OrganizationAddressCity/State/ZIP CodePhone Number [facility] * T4, free (06/24/2025 12:48 PM EDT)ComponentValueRef RangeTest MethodAnalysis TimePerformed AtPathologist OtvcydxwhJ1Knlg(Direct)1.390.82 - 1.77 ng/dL LABC[facility]PSpecimen (Source)Anatomical Location / LateralityCollection Method / VolumeCollection TimeReceived TimeBloodVenous blood specimen / Unknown 06/24/2025 12:48 PM EDT06/24/2025 Narrative [facility] - 06/25/2025 6:07 AM EDT Performed at: - [place] [address] [address] [facility], [address] [place] [address] ??[id number] Ticket Worker: Edgar Armenta MD, Phone: ??[phone] Authorizing ProviderResult TypeResult StatusGeorge R Kaftan DOLAB BLOOD ORDERABLESFinal ResultPerforming OrganizationAddressCity/State/ZIP CodePhone Number [facility] * (ABNORMAL) Urine Culture Clean Catch Reflex (06/24/2025 12:00 AM EDT)Component ValueRef RangeTest MethodAnalysis TimePerformed AtPathologist SignatureUr Cult 1Escherichia coli(A)LABCORPComment: Cefazolin with an AMARI <=16 predicts susceptibility to the oral agents cefaclor, cefdinir, cefpodoxime, cefprozil, cefuroxime, cephalexin, and loracarbef when used for therapy of uncomplicated urinary tract infections due to E. coli, Klebsiella pneumoniae, and Proteus mirabilis. Multi-Drug Resistant Organism Greater than 100,000 colony forming units per mL Ur Cult SuscepCommentLABCORPComment: ? S = Susceptible; I = Intermediate; R = Resistant ? P = Positive; N = Negative ?MICS are expressed in micrograms per mL ?? Antibiotic ? RSLT#1 ?RSLT#2 ?RSLT#3 ?RSLT#4 Amoxicillin/Clavulanic Acid ?S Ampicillin ? R Cefazolin ?S Cefepime ? S Cefoxitin ?S Cefpodoxime ?S Ceftriaxone ?S Ciprofloxacin ?R Ertapenem ?S Gentamicin ? S Levofloxacin ? I Meropenem ?S Nitrofurantoin ? S Piperacillin/Tazobactam ?S Tetracycline ? R Tobramycin ? S Trimethoprim/Sulfa ? R Specimen (Source)Anatomical Location / LateralityCollection Method / Volume Collection TimeReceived Time/09/2025 Narrative [facility] - 06/28/2025 5:07 PM EDT Performed at: [address] [place] [address] ??[id number] Ticket Worker: Nahun Pickering PhD, Phone: ??[phone] Authorizing ProviderResult TypeResult StatusGerald JERNIGAN URINE ORDERABLESFinal ResultPerforming OrganizationAddEllwood Medical Center/[facility] RockdalePhone Number [facility] * (ABNORMAL) Urine culture (clean catch) (06/24/2025 12:00 AM EDT)ComponentValue Ref RangeTest MethodAnalysis TimePerformed AtPathologist SignatureUrine Cult Rt StatusFinal report(A)LABCORPSpecimen (Source)Anatomical Location / LateralityCollection Method / VolumeCollection TimeReceived TimeUrineUrine specimen obtained by clean catch procedure / Sbrrkzk54 Comment:Urine, Clean Catch Pr Narrative [facility] - 06/28/2025 5:07 PM EDT Performed at: [address] [place] [id number] Ticket Worker: Nahun Pickering PhD, Phone: ??[phone] Authorizing ProviderResult TypeResult StatusGerald JERNIGAN MICROBIOLOGY - GENERAL ORDERABLESFinal ResultPerforming OrganizationAddressCity/State/ZIP Code Phone Number [facility] * Microalbumin / creatinine urine ratio (06/08/2025 9:40 AM EDT)ComponentValue Ref RangeTest MethodAnalysis TimePerformed AtPathologist SignatureCreat Ur74.2 Not Estab. mg/dLLABCORPAlbumin Ur18.5Not Estab. ug/mLLABCORPAlb/Creat Ratio Itavb766 - 29 mg/g creatLABCORPComment: ? Normal: ?0 - ??29 ? Moderately increased: 30 - 300 Severely increased: >300 Specimen (Source)Anatomical Location / LateralityCollection Method / Volume Collection TimeReceived TimeUrineUrine specimen obtained by clean catch procedure / Hlpvczn9606/08/2025 9:40 AM EDT06/08/2025 Narrative [facility] - 06/09/2025 6:07 AM EDT Performed at: 01 - [address] ??[id number] Ticket Worker: Nahun Pickering PhD, Phone: ??[phone] Authorizing ProviderResult TypeResult StatusGecrispin WEEMSAB URINE ORDERABLESFinal ResultPerforming OrganizationAddressCity/State/[facility] CodePhone Number [facility] * (ABNORMAL) Hemoglobin A1c (06/08/2025 9:40 AM EDT)ComponentValueRef RangeTest MethodAnalysis TimePerformed AtPathologist TgvnnkvoaYntD9J9.3(H)4.8 - 5.6 % L[facility]PComment: ? Prediabetes: 5.7 - 6.4 Diabetes: >6.4 Glycemic control for adults with diabetes: <7.0 Specimen (Source)Anatomical Location / LateralityCollection Method / Volume Collection TimeReceived TimeBloodVenous blood specimen / Wipvvke3806/08/2025 9:40 AM EDT06/08/2025 Narrative [facility] - 06/09/2025 6:07 AM EDT Performed at: 01 - [facility] ??[id number] Ticket Worker: Nahun Pickering PhD, Phone: ??[phone] Authorizing ProviderResult TypeResult StatusGerald WEEMSAB BLOOD ORDERABLESFinal ResultPerforming OrganizationAddressCity/State/ZIP CodePhone Number [facility] * (ABNORMAL) Comprehensive metabolic panel (06/08/2025 9:40 AM EDT)Component ValueRef RangeTest MethodAnalysis TimePerformed AtPathologist SignatureGlucose 139(H)70 - 99 mg/pVFEGQFISVOJ86(H)8 - 27 mg/dLLABCORPCreat1.57(H)0.76 - 1.27 mg/aXMDMRXFBHXBW64(L)>59 mL/min/1.73LABC[facility]PBUN/Creat Ratio27(H)10 - 24[facility] Cobokq175711 - 144 mmol/LLABCORPPotassium5.13.5 - 5.2 mmol/GSVKKZHXCzsjfbzq601 96 - 106 mmol/LLABCORPCarbon Tempemb60(L)20 - 29 mmol/LISQEURJXmgddbv19.08.6 - 10.2 mg/dLLABCORPProtein Total7.46.0 - 8.5 g/dLLABCORPAlbumin4.33.8 - 4.8 g/dL LABCORPGlobulin Total3.11.5 - 4.5 g/dLLABCORPBili Total0.40.0 - 1.2 mg/dL LABCORPAlk Eltraocgwnc907(H)44 - 121 IU/AITOHMUCLFA86 - 40 IU/[facility]ORPALT<50 - 44 IU/LLABCORPComment:Verified by repeat analysisSpecimen (Source) Anatomical Location / LateralityCollection Method / VolumeCollection Time Received TimeBloodVenous blood specimen / Qsgyyke3906/08/2025 9:40 AM EDT 06/08/2025 Narrative [facility] - 06/09/2025 6:07 AM EDT Performed at: [address] ??[id number] Ticket Worker: Nahun Pickering PhD, Phone: ??[phone] Authorizing ProviderResult TypeResult StatusGecrispin Field DOLAB BLOOD ORDERABLESFinal ResultPerforming OrganizationAddressCity/State/ZIP CodePhone Number [facility] * (ABNORMAL) Diabetic Retinopathy Screening - OU - Both Eyes (11/15/2024 1:29 PM EST)Anatomical RegionLateralityModalityHeadOther Narrative Authorizing ProviderResult TypeResult StatusGeorroshni Field DOOPH PHOTOGRAPHY Final Result from Last 3 Months or Most Recently Relevant to Health Maintenance Insurance Advance Directives TypeDate RecordedPatient RepresentativeExplanationAdvance Directives and Living [id number] living will Care Teams Team MemberRelationshipSpecialtyStart DateEnd Date Gerald Field DO [address] [place] [address] [facility] Gerald Field DO [address] [place] [address] PCP - ACO [place]12/12/23 Gregory Ybarra MD [address] [place] [address] Referring PhysicianSle Kqsanpvi29/29/24 Sunny Vasquez DO [address] [place] [address] Jkukgcuejtuozc49/29/24 Eusebio Guerin MD [address] [place] [address] [place] [address] Referring YwkdvcaddEyylshfcz12/25/24 Hillary Wilhelm PA [address] [place] [address] Physician AssistantNeurology12/29/24
--- OUTSIDE RECORDS SUMMARY | 2025-09-07 10:35 | XMS_ITS | Patient Health Record ---
Author Organization [facility] [place] Address [address] [place] [address] Care Team Providers Care Ribbon Inker Name Role Phone Gerald Field DO Primary Care Provider Ethan Heredia [phone] Allergies No Known Allergies Reason For Referral No Information Medications Medication SIG (Take, Route, Frequency, Duration) Notes Start Date End Date Status Myrbetriq 50 MG 1 tablet - sample Or ally Once a day; Duration: 30 days Lot# [id number] Exp: 04/202603/18/2024 ActiveFish OilActiveLantus SoloStarActiveLisinoprilActiveClindamycin HCl 300 MG TAKE 1 CAPSULE BY MOUTH IN THE MORNING, EVENING AND BEFORE BEDTIME FOR 10 DAYS Oral; Duration: 10 DaysNot-TakingVitamin CNot-TakingVitamin ENot-Taking Tamsulosin HCl 0.4 MG1 capsule Orally Once a day; Duration: 90 days12/16/2024 ActiveGlimepirideActiveVitamin B ComplexNot-TakingVitamin C32Iay-Bekpos Carbidopa-Levodopa 25-100 MGOral; Duration: 90 DaysActiveoxyBUTYnin Chloride ER 10 MG1 tablet Orally Once a day; Duration: Not-TakingClopidogrel BisulfateActiveSildenafil Citrate 100 MG1 tablet as needed Orally Once a day; Duration: 30 day(s)01/24/20226389Exw-AkbshfImdrp-08BujtliWjsuHag-TakingAtorvastatin CalciumActiveoxyBUTYnin Chloride ER 10 MG1 tablet Orally Once a day; Duration: Not-TakingCo Q 10Not-TakingamLODIPine BesylateActiveDitropan XL 10 MG1 tablet Orally Once a day; Duration: 90 days01/24/2022Not-Taking Social History Tobacco Use: Social History Observation Description Date Details (start date - stop date) Former Smoker NA - NA Tobacco Use/Smoking Question Answer Notes Patient is a former smoker AUDIT-C (Standard) Question Answer Notes Did you have a drink containing alcohol in the p ast year? No Ojxcsi1WvocyzxjugeyjlUuebvsqz Problems Problem Type SNOMED Code ICD Code Onset Dates Problem Status W/U Status Risk Notes Problem Urge incontinence of urine (97151870) Urg e incontinence (N39.41) ActiveconfirmedProblemBenign prostatic hyperplasia (501539664)BPH (benign prostatic hyperplasia) (N40.0)ActiveconfirmedProblemErectile dysfunction (disorder) (150440757)Erectile dysfunction, unspecified erectile dysfunction type (N52.9)ActiveconfirmedProblemLower urinary tract symptoms due to benign prostatic hypertrophy (40703073030071)Benign prostatic hyperplasia with lower urinary tract symptoms (N40.1)Activeconfirmed Vital Signs Height 68 in 12/16/2024 Akksii860 lbs12/16/2024BMI29.04 kg/m212/16/2024 Encounters Encounter Location Date Provider Diagnosis Urology [address] [address] 12/16/2024 Ethan Chowdary Frequency of micturition R35.0 ; Urge incontinence N39.41 and BPH (benign prostatic hyperplasia) N40.0 Assessments Encounter Date Diagnosis (ICD Code) Assessment Notes Treatment Notes Treatment Clinical Notes Section Notes 12/16/2024 Frequency of micturition (ICD-10 - R35.0) 12/16/2024Urge incontinence (ICD-10 - N39.41)12/16/2024PH (benign prostatic hyperplasia) (ICD-10 - N40.0)12/16/2024Other Continue Myrbetriq. Start Flomax. See back in 6 months w PVR Plan Of Treatment Pending Test Test Name Order Date UA DIP NONAUTO WO MICRO (51609) - IN OFF ICE 09/21/2020 Future Test Test Name Order Date PSA, TOTAL 01/31/2024 PSA, TOTAL 10/30/2024 Insurance Providers Payer Name Payer Address Payer Phone Subscriber Number Group Number Insured Name Patient Relationship to Insured Coverage Start Date Coverage End Date [place] [address] [place] [address] [id number] Jakob Mariee - patient is the [facility] [address] [place] [phone], WilliamSelf - patient is the [id number] 2012 Medical (General) History Medical History History ICD Code diabetes mellitus hypertensionhyperlipidemiaheart attackheart diseaseElevated prostate specific antigen (PSA)R97.20Frequency of hugojkvafabP93.0Leg infectionparkinsons disease Surgical History Surgery Date(Month/Year) right knee replacement left knee replacementcardiac ablationNerve [facility] Hospitalization History Reason Date(Month/Year)
--- OUTSIDE RECORDS SUMMARY | 2025-09-07 10:35 | XMS_ITS | Patient Health Record ---
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 [address] [id number] Jakob Mariee - [facility] the [facility])[address] [place] [id number] Jakob Vieira - patient is the insured
--- OUTSIDE RECORDS SUMMARY | 2025-09-07 10:36 | XMS_ITS | Encounter Summary ---
Author Organization [facility] Address [address] [place] [address] Care Team Providers Care Multi Purpose Machine Operator Name Role Phone Gerald Field DO Primary Care Provider [phone] Gerald Field DO Unavailable Gregory Ybarra MD Unavailable [phone] MichaelSunny parrish Madelin DO Unavailable Eusebio Guerin MD Unavailable Hillary Wilhelm Unavailable Encounter Details DateTypeDepartmentCare Team (Latest Contact Info)Iwvpadtguvf14/13/2025Bamboo flowsheet [facility] [place] [facility] [address] [place] [phone] Tanja Connell DPM [address] [place] [address] Social History Tobacco UseTypesPacks/DayYears UsedDateSmoking Tobacco: FormerCigarettes1.522 Smokeless Tobacco: NeverAlcohol UseStandard Drinks/WeekCommentsNot Currently0 (1 standard drink = 0.6 oz pure alcohol)caffeine intake : gucoD3364 Health Literacy AnswerDate RecordedHow often do you need to have someone help you when you read instructions, pamphlets, or other written material from your doctor or pharmacy? Laswta8503/25/2024Social Connection and Isolation PanelAnswerDate Recorded Frequency of Communication with Friends and FamilyNot on file03/25/2024Frequency of Social Gatherings with Friends and FamilyNot on file03/25/2024How often do you attend buddhist or anglican services?More than 4 times per year03/25/2024o you belong to any clubs or organizations such as buddhist groups, unions, fraternal or athletic groups, or school groups?No03/25/2024How often do you attend meetings of the clubs or organizations you belong to?Never03/25/2024re you , , , , never , or living with a partner?Ceoibqt7303/25/2024UDIT-CAnswerDate RecordedQ1: How often do you have a [...] hard at all03/25/2024HQ-2AnswerDate RecordedPatient Health Questionnaire-2 Score0 08/08/2025[facility] [place] of Occupational Health - Occupational Stress QuestionnaireAnswerDate [...] steady place to sleep or slept in [place] (including now)?No03/17/2024Housing Stability Vital SignAnswerDate RecordedIn the last 12 months, was there a time when you were not able to pay the mortgage or rent on time?No03/25/2024In the past 12 months, how many times have you moved where you were living?t any time in the past 12 months, were you homeless or living in a [place] (including now)?No 03/25/2024Sex and Gender InformationValueDate RecordedSex Assigned at BirthNot on fileLegal HrnZtfv7312/25/2022 10:58 PM EDTGender IdentityNot on fileSexual OrientationNot on filedocumented as of this encounter Plan of Treatment DateTypeDepartmentCare Team (Latest Contact Info)Tuelgvjzpeu98/04/2025 2:00 PM ESTOffice Visit [facility] [address] [place] [phone] Tanja Connell DPM [address] [place] [address] 09/20/2025 11:20 AM ESTOffice Visit [facility] [address] [place] [phone] Gerald Field DO [address] [place] [address] 09/29/2025 1:45 PM ESTOffice Visit [facility] [place] [facility] [address] [place] [phone] Tanja Connell, DPM [address] [place], [place] 11/01/2025 10:00 AM ESTProcedure Visit [facility] [place] [facility] [address] [place] [phone] Tanja Connell, DPM [address] [place] [address] 02/01/2026 9:05 AM EDTOffice Visit [facility] [place] [facility] [address] [place] [phone] Mary Davies MD [address] [place] [address] documented as of this encounter Visit Diagnoses Not on filedocumented in this encounter Additional Health Concerns AssessmentNoted TimePHQ-9 Depression Total Score: 6003/01/2025 10:00 AM EDT documented as of this encounter Care Teams Team MemberRelationshipSpecialtyStart DateEnd Date Gerald Field DO [address] [place] [address] PCP - GeneralFamily Medicine02/18/23 Gerald Field DO [address] [place] [address] PCP - ACO [facility]12/12/23 Gregory Ybarra MD [address] [place] [address] Referring PhysicianSle Bdnsoyqx61/29/24 Sunny Vasquez DO [address] [place] [address] Blwryldzvuochp02/29/24 Eusebio Guerin MD [address] [place] [address] [place] [address] Referring LptkrlycfPujmdwayj18/25/24 Hillary Wilhelm PA [address] [place] [address] Physician AssistantNeurology12/29/24documented as of this encounter
--- OUTSIDE RECORDS SUMMARY | 2025-09-07 10:36 | XMS_ITS | Encounter Summary ---
Author Organization [facility] Address [address] [place] [address] Care Team Providers Care Breakfast Manager Name Role Phone Gerald Field DO Primary Care Provider [phone] Gerald Field DO Unavailable [phone] Gregory Ybarra MD Unavailable [phone] SylvesterlupeSunny DO Unavailable [phone] Eusebio Guerin MD Unavailable Hillary Wilhelm Unavailable Encounter Details DateTypeDepartmentCare Team (Latest Contact Info)Bowbgxkoeuu50/13/2025Travel Social History Tobacco UseTypesPacks/DayYears UsedDateSmoking Tobacco: FormerCigarettes1.522 Smokeless Tobacco: NeverAlcohol UseStandard Drinks/WeekCommentsNot Currently0 (1 standard drink = 0.6 oz pure alcohol)caffeine intake : [id number] Health Literacy AnswerDate RecordedHow often do you need to have someone help you when you read instructions, pamphlets, or other written material from your doctor or pharmacy? Jhowfl5303/25/2024Social Connection and Isolation PanelAnswerDate Recorded Frequency of Communication with Friends and FamilyNot on file03/25/2024Frequency of Social Gatherings with Friends and FamilyNot on file03/25/2024How often do you attend christian or christian services?More than 4 times per year03/25/2024o you belong to any clubs or organizations such as christian groups, unions, fraternal or athletic groups, or school groups?No03/25/2024How often do you attend meetings of the clubs or organizations you belong to?Never03/25/2024re you , , , , never , or living with a partner?Dwqbybg6603/25/2024UDIT-CAnswerDate RecordedQ1: How often do you have a [...] hard at all03/25/2024HQ-2AnswerDate RecordedPatient Health Questionnaire-2 Score0 08/08/2025[facility] [place] [facility] - Occupational Stress QuestionnaireAnswerDate [...] steady place to sleep or slept in kellelter (including now)?No03/17/2024Housing Stability Vital SignAnswerDate RecordedIn the last 12 months, was there a time when you were not able to pay the mortgage or rent on time?No03/25/2024In the past 12 months, how many times have you moved where you were living?t any time in the past 12 months, were you homeless or living in a long term (including now)?No 03/25/2024Sex and Gender InformationValueDate RecordedSex Assigned at BirthNot on fileLegal EprZnwp3112/25/2022 10:58 PM EDTGender IdentityNot on fileSexual OrientationNot on filedocumented as of this encounter Plan of Treatment DateTypeDepartmentCare Team (Latest Contact Info)Eddvmueghfi66/04/2025 2:00 PM ESTOffice Visit [facility] [address] [place] [address] Tanja Connell DPM [address] [place] [address] 09/20/2025 11:20 AM ESTOffice Visit [facility] [address] [place] [phone] Gerald Field DO [address] [place] [address] 09/29/2025 1:45 PM ESTOffice Visit [facility] [place] [facility] [address] [place] [address] Tanja Connell, DPM [address] [place] [address] 11/01/2025 10:00 AM ESTProcedure Visit [facility] [place] [facility] [address] [place] [phone] Tanja Connell, DPM [address] [place] [address] 02/01/2026 9:05 AM EDTOffice Visit [facility] [place] [facility] [address] [place] [phone] Mary Davies MD [address] [place] [address] documented as of this encounter Visit Diagnoses Not on filedocumented in this encounter Additional Health Concerns AssessmentNoted TimePHQ-9 Depression Total Score: 6003/01/2025 10:00 AM EDT documented as of this encounter Care Teams Team MemberRelationshipSpecialtyStart DateEnd Date Gerald Field DO [address] [place] [address] [facility] - [facility]/23 Gerald Field DO [address] [place] [address] PCP - ACO Reach12/12/23 Gregory Ybarra MD [address] [place] [address] [facility]erring [facility] Tqzfdwsn41/29/24 Sunny Vasquez DO [address] [place] [place] [address] Xbuaqzxvijunbh46/29/24 Eusebio Guerin MD [address] [place] [address] [place] [address] Referring MlnkyowvqFigebnxfb53/25/24 Hillary Wilhelm PA [address] [place] [address] Physician AssistantNeurology12/29/24documented as of this encounter
--- OUTSIDE RECORDS SUMMARY | 2025-09-07 10:37 | XMS_ITS | CCD ---
Author Organization [facility] Care Team Providers Care Seismograph Shooter Name Role Phone Poli Mercado MD Unavailable [...] Referring Unavailable JOSY LEACH MD Attending Unavailable ORLANDO ., DR SADIE Parry [...] SPAULDING ., DIAMANTE Consulting Unavailable KALEIGHTON, DR Vlaentino LOPEZ Primary Care Unavailable PERRY ., DR [...] DR Valentino LOPEZ Primary Care Unavailable Lili Ybarra Unavailable MD Lili Ybarra Attending Provider DO Benedicto Field Primary Care Provider [phone] DO Benedicto Field Referring Provider DO Benedicto Field Primary Care Provider MD Lili Ybarra Attending Provider [phone] DO Benedicto Field Primary Care Provider MD Manda Lockwood Attending Provider MD Coleman Gale Attending Provider [phone] DO Benedicto Field Primary Care Provider [phone] MD Tom Conde Attending Provider Valentino FIELD DO Primary Care Unavailable DAVID WU-PhD, BARBY Attending Unavailable DO TOM FIELD Referring Unavailable Valentino FIELD DO Primary Care Unavailable DAVID WU-PhD, BARBY Attending Unavailable GISELLE GANDARA MD Attending Unavailable Valentino FIELD DO Primary Care Unavailable Tom Field DO Primary Care Provider Tom Field DO Unavailable Nate RN, Charlene Unavailable Lili Ybarra MD Unavailable Sunny Vasquez DO Unavailable Eusebio Guerin MD Unavailable [phone] Benedicto Field DO Primary Care Provider Tom Conde MD Attending Provider Sunny Vasquez DO Attending Provider Benedicto Field DO Primary Care Provider [phone] Tom Conde MD Attending Provider Lili Ybarra MD Unavailable [phone] Hillary Lyles Unavailable Lili Ybarra MD Unavailable Lili Ybarra MD Unavailable Eusebio Guerin MD Unavailable Unavailable Benedicto Field DO Primary Care Provider [phone] Tom Conde MD Attending Provider Benedicto Field DO Primary Care Provider Tom Conde MD Attending Provider Tom Conde MD Referring Provider Alf Levine MD Attending Provider Eusebio Guerin MD Unavailable [phone] Nnamdi Dozier DO Emergency Provider [phone] Ethan Chowdary Attending Unavailable TOM FIELD Primary Care Unavailable Valentino FIELD DO Primary Care Physician Unava ilable Benedicto Field DO Primary Care Provider [phone] Alf Levine MD Attending Provider Tom Conde MD Other Provider Nnamdi Dozier Admitting Unavailable Nnamdi Dozier Attending Unavailable Benedicto Field Primary Care Unavailable Koromia, Tom Bueno Referring Unavai lable Koromia, Tom Bueno Admitting Unavai lable Kaftan, Benedicto Lopez Primary Care Unavailable Koromia, Tom Bueno Attending Unavai lable Koromia, Tom Bueno Admitting Unavai lable Kaftan, Benedicto Lopez Primary Care Unavailable Koromia, Tom Bueno Attending Unavai lable KaBenedicto singer Primary Care Unavailable Robert Lockett Admitting Unavailable Robert Lockett Attending Unavailable [place], Benedicto Lopez Primary Care Unavailable Koromia, Tom Bueno Admitting Unavai lable Koromia, Tom Bueno Attending Unavai lable Koromnick, Tom Bueno Admitting Unavai lable KaftanBenedicto Primary Care Unavailable Koromia, Tom Bueno Attending Unavai lable Koromia, Tom Bueno Admitting Unavai lable Kaftan, Benedicto Lopez Primary Care Unavailable Koromnick, Tom Bueno Attending JosyvaSunny Vance Admitting Unavailable Sunny Vasquez Attending Unavailable Benedicto Field Primary Care Unavailable Sunny Vasquez Attending Unavailable Benedicto Field Primary Care Unavailable Sunny Vasquez Admitting Unavailable Hillary Lyles Unavailable TOM FIELD Referring Unavailable HILLARY WILHELM Attending Unavailable SUE LOVING Attending Unavailable TOM FIELD Attending Unavailable SARAH CONNELL Attending Unavailable HETAL DAVIES Attending Unavailable TOM FIELD Attending Unavailable DAJA MORENO Attending Unavailable HILLARY WILHELM Attending Unavailable SILVESTRE COOLEY Attending Unavailable SARAH CONNELL Attending Unavailable TOM FIELD Attending Unavailable TOM FIEDL Referring Unavailable TOM FIELD Attending Unavailable AUTUMN VALENCIA Attending Unavailable USNNY VASQUEZ Attending Unavailable SARAH CONNELL Attending Unavailable SUNNY VASQUEZ Attending Unavailable TOM FIELD Attending Unavailable TOM FIELD Attending Unavailable SARAH CONNELL Attending Unavailable TOM FIELD Attending Unavailable TOM FIELD Referring Unavailable TOM FIELD Referring Unavailable TOM FIELD Attending Unavailable Allergies Allergy ClassificationReported Allergen(s)Allergy TypeDate of OnsetReaction(s) Facility (20 sources)Lactose (non-medical use)Propensity to adverse [id number] Unknown ReactionNOMS Healthcare Work Phone: Comment on above:intolerant (20 sources)HYDROcodone; Translations: [hydrocodone]Drug Eupyawc17-97-1026LswducSumma Health [facility] (1 source)LactoseDrug Uyhblcz47-73-7330VgpcvsmagMer[facility] Health [facility] Rep[facility] Medications Current Medications MedicationDrug Class(es)DatesSig (Normalized)Sig (Original)ascorbic acid 1000 mg oral tablet (1 source)Vitamin Ctake 1 tablet by mouth once dailyAscorbic Acid 1000 MG 1 tablet Orally Once a day Activeaspirin 81 mg delayed release oral tablet (20 sources)Platelet Aggregation Inhibitor, Nonsteroidal Anti-inflammatory Drug Start: 06-04-2020 End: 02-31-6059tnlq 1 tablet by mouth once dailyAspirin Low Dose 81 MG EC tablet Indications: 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, unspecified vessel or lesion type, unspecified whether [place] or transplanted heart , Type 2 diabetes mellitus without complication, with long-term current use of insulin (HCC) TAKE 1 TABLET BYMOUTH EVERY DAY 90 tablet 3 04/14/2025 ActiveStart: 70-87-6024Hnjiyes Low Dose 81 mg oral enteric coated tablet 81 mg 1 tab(s), ORAL, DAILY WITH BREAKFAST, 30 tab(s), Date: 10/30/11 8:52:00 AM EST, Tablet EC Start Date: 10/30/11 Status: Ordered Medication Dispense Status: Completed Quantity: 30.0 Unit: tabs Total Allowed Fills: 1 Fills Dispensed: 0 atorvastatin 20 mg oral tablet (20 sources)HMG-CoA Reductase InhibitorStart: 30-04-2215ifyg 1 tablet by mouth at bedtimeatorvastatin (Lipitor) 20 MG tablet Indications: Hypertensive heart disease with heart failure (HCC) Take 1 tablet (20 mg) by mouth at bedtime 90 tablet 1 05/30/2025 Activetake 1 tablet by mouth every twenty-four hours Atorvastatin Calcium 10 MG 1 tablet Orally Once a day Activecarbidopa 25 mg / levodopa 100 mg oral tablet (20 sources)Aromatic Amino Acid Decarboxylation Inhibitor, Aromatic Amino Acid Start: 58-47-6397mpbp 2 tablets by mouth four times dailyStart: 09-14-2024 End: 01-82-4192wvrfkoenz-levodopa (Sinemet) 25-100 MG tablet Indications: Parkinson's disease with dyskinesia and fluctuating manifestations (HCC) TAKE 2 TABLET BY MOUTH AT 8AM, 2 tablet at eleven, 2 tablets at 2PM, AND 2 tablet at 5PM 05/04/2025 ActiveStart: 09-14-2024 End: 61-37-9061ytqw 2 tablets by mouth every three hoursCarbidopa-Levodopa (Sinemet) 25-100 mg tablet Discontinued 1 TAB PO .COMPLEX September 14, 2024 11:29am May 02, 2025 2:48pm take 2 tabs i0zRphcn: 57-51-9091tlgircewa- levodopa (Sinemet) 25-100 MG tablet Indications: 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) TAKE 1 TABLET BY MOUTH AT 8AM, NOON, 3PM AND 6PM 360 tablet 08/10/2024 ActiveStart: 06-15-2024 End: 05-35-5957wjvt 1 tablet by mouth four times dailyCarbidopa-Levodopa (Sinemet) 25-100 mg tablet Discontinued 1 TAB PO Four times daily June 15, 2024 11:17am September 14, 2024 11:32amStart: 57-45-2262fwrewypwx-levodopa (Sinemet) 25-100 MG tablet Indications: 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) TAKE 1 TABLET BY MOUTH AT 8AM, NOON, 3PM, AND 6PM 360 tablet 05/11/2024 ActiveStart: 02-26-2024 End: 88-57-1040usyz 1 tablet by mouth once at mealtimeCarbidopa-Levodopa (Sinemet) 25-100 mg Tablet Discontinued 1 TAB PO 3x/Day with meals 270 90 February 26, 2024 12:00am June 15, 2024 11:19amciprofloxacin 500 mg oral tablet (12 sources)Quinolone AntimicrobialStart: 08-08-2025 End: 02-06-8134xbhk 1 tablet by mouth in the morningciprofloxacin (Cipro) 500 MG tablet Indications: Cellulitis of other specified site Take 1 tablet (500 mg) by mouth in the morning and 1 tablet (500 mg) before bedtime. Do all this for 5 days. 10 tablet 08/15/2025 08/20/2025 ActiveStart: 06-24-2025 End: 87-40-6544agqm 1 tablet by mouth in the morningciprofloxacin (Cipro) 250 MG tablet Indications: Urinary tract infection without hematuria, site unspecified Take 1 tablet (250 mg) by mouth in the morning and 1 tablet (250 mg) before bedtime. Do all this for 5 days. 10 tablet 06/28/2025 07/03/2025 Active Continuous Glucose Marker Machine (FreeStyle Lillian 2 Mart) device (5 sources)Start: 02-02-2024 End: 38-81-6974Bpiewauowc Glucose Marker Machine (FreeStyle Lillian 2 Mart) device Indications: Type 2 diabetes mellituswithout complication, with long-term current use of insulin ([facility]) Dispense 1 reader device for every day use to check blood sugars E11.9 1 each 02/02/2024 06/15/2024 Discontinued (Therapy completed)Start: 50-12-3594Jyhxfbdlwj Glucose Marker Machine (FreeStyle Lillian 2 Mart) device Indications: Type 2 diabetes mellituswithout complication, with long-term current use of insulin ([facility]) Dispense 1 reader device for every day use to check blood sugars E11.9 1 each 02/02/2024 ActiveContinuous Glucose Sensor (FreeStyle Lillian 2 Sensor) misc (20 sources)Start: 29-80-9992Aaxryrvieb Glucose Sensor (FreeStyle Lillian 2 Sensor) [facility] Indications: Type 2 diabetes mellitus with hyperglycemia, without long-term current use of insulin ([facility]) , Type 2 diabetes mellitus with stage 3b chronic kidney disease, without long-term current use of insulin ([facility]) 1 Units every 14 (fourteen) days 2 each 06/30/2024 ActiveStart: 21-03-8087Vscoijqfgt Glucose Sensor (FreeStyle Lillian 2 Sensor) misc Indications: Type 2 diabetes mellitus with hyperglycemia, without long-term current use of insulin ([facility]) , Type 2 diabetes mellitus with stage 3b chronic kidney disease, without long- term current use of insulin (HCC) (CMS/HCC) 1 Units every 14 (fourteen) days 2 each 06/30/2024 ActiveStart: 58-57-1021Ohbkzffqwx Glucose Sensor (FreeStyle Lillian 2 Sensor) [facility] Indications: Type 2 diabetes mellitus with hyperglycemia, without long-term current use of insulin (CMS/HCC) 1 Units every 14 (fourteen) days1 each 04/19/2024 ActiveStart: 14-01-1765Bullrrpxcq Glucose Sensor (FreeStyle Lillian 2 Sensor) [facility] Indications: Type 2 diabetes mellitus with hyperglycemia, without long-term current use of insulin (CMS/HCC) , Type 2 diabetes mellitus with stage 3b chronic kidney disease, without long-term current use of insulin (HCC) ([facility]) 1 Units every 14 (fourteen) days 2 each 02/02/2024 ActiveCPAP Machine (1 source)CPAP Machine Oqnsmm12 hr dapagliflozin 10 mg / metFORMIN hydrochloride 500 mg extended release oral tablet (20 sources)Biguanide, Sodium-Glucose Cotransporter 2 InhibitorStart: 03-15-2025 take 1 tablet by mouth once daily in the morningStart: 08-23-3781gynl 1 tablet by mouth at mealtimedapagliflozin-metFORMIN ER (Xigduo XR) 10-500 MG Indications: Type 2 diabetes mellitus without complication, with long-term current use of insulin ([facility]) Take 1 tablet by mouth in the morning. Take with meals. 30 tablet 5 03/01/2025 ActiveStart: 03-01-2025 End: 24-03-6169ehtzkpqhuhqrs-metFORMIN ER (Xigduo XR) 10-500 MG per 24 hr tablet 1 tabletdocosahexaenoic acid 120 mg / eicosapentaenoic acid 180 mg oral capsule (20 sources)Start: 06-15-2024 End: 01-78-0229qsxvo-3, EPA+DHA, (Super [place]-3) 1000 MG capsule 1 capsule 06/15/2024 05/04/2025 Discontinuedentacapone 200 mg oral tablet (7 sources)Bflmdqsg-E-Bwwlsjxsoudcnwohc InhibitorStart: 97-04-1822evtv 1 tablet by mouth in the morning, then take 1 tablet by mouth in the evening, then take 1 tablet by mouth at bedtimeentacapone (Comtan) 200 MG tablet Take 200 mg by mouth in the morning and 200 mg in the evening byt248 mg before bedtime. 08/02/2025 ActiveFish Oil-Cholecalciferol (FISH OIL + D3 PO) (2 sources) End: 53-42-0770Fuyz Oil-Cholecalciferol (FISH OIL + D3 PO) Take by mouth 06/07/2024 DiscontinuedFish Oils (2 sources)Start: 17-14-4481Vmuh Oil 1000 mg oral capsule 1,000 mg 1 caps, ORAL, DAILY, Date: 05/13/18 10:34:00 AM EDT Start Date: 05/13/18 Status: Ordered Medication Dispense Status: Completed Total Allowed Fills: 1 Fills Dispensed: 0 take 1 capsule by mouth once dailyFish Oil 1000 MG 1 capsule Orally Once a day Activefurosemide 40 mg oral tablet (1 source)Loop Diuretictake 1 tablet by mouth every twenty-four hoursFurosemide 40 MG 1 tablet Orally Once a day Active3 ml insulin glargine 100 unt/ml pen injector (20 sources)Insulin AnalogStart: 05-30-2025 End: 61-92-7969wqxpvbj glargine (Lantus SoloStar) 100 UNIT/ML pen Indications: Type 2 diabetes mellitus without complication, with long-term current use of insulin (HCC) IF BLOOD SUGAR BELOW 150 DO NOT TAKE, IF BLOOD SUGAR BETWEEN 150 AND 250 INJECT 5 UNITS UNDER THE SKIN. IF BLOOD SUGAR OVER 250 INJECT 10 UNITS O NLY ONCE DAILY. 08/08/2025 ActiveStart: 21-53-6638oovwwpu glargine (Lantus SoloStar) 100 UNIT/ML pen Indications: Type 2 diabetes mellitus without com plication, with long-term current use of insulin (HCC) IF BLOOD SUGAR BELOW 180 DO NOT TAKE, IF BLOOD SUGAR BETWEEN 180 AND 250 INJECT 5 UNITS UNDER THE SKIN. IF BLOOD SUGAR OVER 250 INJECT 10 UNITS ONLY ONCE DAILY. 15 mL 3 03/01/2025 ActiveStart: 03-01-2025 End: 00-35-6216qjgrebc glargine (Lantus SoloStar) 100 UNIT/ML pen Indications: Type 2 diabetes mellitus without complication, with long-term current use of insulin If blood sugar below 180 do not take. If blood sugar between 180 and 250 take 5 units. If blood sugar over 250 take 10 units. 15 mL 3 03/01/20252024 DiscontinuedStart: 45-64-8965Qpbls: 20-99-3890gewqwn 100 [IU] by subcutaneous injection at bedtimeStart: 03-24-2024 End: 13-60-0194yqgdoj 10 [IU] by subcutaneous injection once daily at bedtime insulin glargine (Lantus SoloStar) 100 UNIT/ML pen Indications: Type 2 diabetes mellitus without complication, with long-term current use of insulin INJECT 10 UNITS UNDER THE SKIN EVERY DAY AT BEDTIME 15 mL 3 03/24/2024 03/01/2025 Discontinued (Reorder)Start: 02-24-2024 End: 40-31-4014nulefh 100 [IU] by subcutaneous injection at bedtimeInsulin Glargine (Lantus Solostar U-100 Insulin) 100 unit/mL (3 mL) insulin pen Discontinued 6 UNITSUBCUT Bedtime 3 February 26, 2024 5:19pm December 20, 2024 10:51am FreeTextSi to 12 units as directed Subcutaneous; Note: Source Status: Taking; Provider: Tate Jenkins ( )Start: 39-91-3402cuilsl 10 [IU] by subcutaneous injection once daily at bedtimeLantus Solostar Pen 100 units/mL subcutaneous solution 10 units, Subcutaneous, QHS, Date: 03/26/21 2: 11:00 PM EDT, Solution Start Date: 03/26/21 Status: Ordered Medication Dispense Status: Completed Total Allowed Fills: 1 Fills Dispensed: 0Start: 11-12-2012 Lantus SoloStar 100 UNIT/ML Subcutaneous Solution Pen-injector INJECT 20 UNITS SUBCUTANEOUSLY EVERYDAY OR AMOUNT DIRECTED Quantity: 1 Refills: 1 Ordered: 10-May-2022 Poli Mercado MD Start : 12-Nov-2012 ActiveLantus SoloStar 100 UNIT/ML 8 units as directed Subcutaneous Activelisinopril 5 mg oral tablet (20 sources)Angiotensin Converting Enzyme InhibitorStart: 04-07-2024 End: 82-88-3917kzwc 1 tablet by mouth once dailylisinopril 5 MG tablet Indications: Essential (primary) hypertension TAKE 1 TABLET BY MOUTH EVERY DAY 90 tablet 3 01/13/2025 ActiveStart: 25-53-0247Vtzlwvbbgw 10 MG Oral Tablet Quantity: 90 Refills: 0 Ordered: 12-Aug-2021 DO Start : 16-May-2021 ActiveStart: 06-04-2020 End: 32-32-7407vvzy 1 tablet by mouth once dailyLisinopril 20 mg tablet Discontinued 20 MG PO Daily June 04, 2020 12:00am June 15, 2024 11 :18am24 hr metFORMIN hydrochloride 500 mg extended release oral tablet (20 sources)BiguanideStart: 01-31-2025 End: 07-67-8134iwti 2 tablets by mouth every twenty-four hours at bedtime metFORMIN XR (Glucophage-XR) 500 MG 24 hr tablet Indications: Type 2 diabetes mellitus without complication, with long-term current use of insulin TAKE 2 TABLETS BY MOUTH IN THE MORNING AND BEFORE BEDTIME*DO NOT CRUSH,CHEW,OR SPLIT* 180 tablet 1 01/31/2025 03/01/2025 Discontinued (Ineffective)Start: 10-04-2024 take 2 tablets by mouth every twenty-four hours at bedtimemetFORMIN XR (Glucophage-XR) 500 MG 24 hr tablet Indications: Type 2 diabetes mellitus without complication, with long-term current use of insulin TAKE 2 TABLETS BY MOUTH IN THE MORNING AND BEFORE BEDTIME*DO NOT CRUSH,CHEW,OR SPLIT* 180 tablet 1 10/04/2024 ActiveStart: 09-14-2024 End: 82-86-6804ughc 1 tablet by mouth twice dailyMetformin 500 mg tablet extended release 24 hr Discontinued 500 MG PO Twice daily September 14, 2024 11:30am March 15, 2025 10:20amStart: 44-30-9429rfph 2 tablets by mouth every twenty-four hours in the morningmetFORMIN XR (Glucophage-XR) 500 MG 24 hr tablet Indications: Type 2 diabetes mellitus without complication, with long-term current use of insulin ([facility]) Take 2 tablets (1,000 mg) by mouth in the m orning and 2 tablets (1,000 mg) before bedtime. Do not crush, chew, or split.. 180 tablet 1 06/18/2024 ActiveStart: 66-90-3382ymrm 2 tablets by mouth every twenty-four hours in the morningmetFORMIN XR (Glucophage-XR) 500 MG 24 hr tablet Indications: Type 2 diabetes mellitus without complication, with long-term current use of insulin (CMS/HCC) Take 2 tablets (1,000 mg) by mouth in the m orning and 2 tablets (1,000 mg) before bedtime. Do not crush, chew, or split.. 180 tablet 1 06/18/2024 ActiveStart: 06-15-2024 End: 69-33-9616kvrt 1 tablet by mouth once dailyMetformin 500 mg tablet extended release 24 hr Discontinued 500 MG PO Daily June 15, 2024 11:17am September 14, 2024 11:32amStart: 06-01-2024 End: 97-53-1069ynjw 1 tablet by mouth every twenty-four hoursMetformin 500 mg tablet extended release 24 hr Discontinued MG PO June 01, 2024 12:00am June 15, 2024 11:19amStart: 06-01-2024 End: 31-36-8498Sdmasmnad Discontinued MG PO June 01, 2024 12:00am June 15, 2024 11:19amStart: 04-19-2024 End: 60-18-2174ozza 2 tablets by mouth every twenty-four hours in the morning metFORMIN XR (Glucophage-XR) 500 MG 24 hr tablet Indications: Type 2 diabetes mellitus without complication, with long-term current use of insulin (CMS/[facility]) Take 2 tablets (1,000 mg) by mouth in the morning and 2 tablets (1,000 mg) before bedtime. Do not crush, chew, or split.. 180 tablet 1 06/18/2024 Jwfdlb26 hr metoprolol succinate 25 mg extended release oral tablet (20 sources)beta-Adrenergic BlockerStart: 47-94-8768wqlf 1 tablet by mouth every twenty-four hoursMetoprolol Succinate ER 25 MG Oral Tablet Extended Release 24 Hour Quantity: 90 Refills: 0 Ordered:22-Jun-2021 DO Start : 27-Mar-2021 Active Start: 84-26-7746tynq 1 tablet by mouth once dailymetoprolol succinate XL (Toprol-XL) 25 MG 24 hr tablet Indications: Hypertensive heart disease withheart failure (HCC) Take 1 tablet (25 mg) by mouth Daily 90 tablet 3 02/04/2025 Gtbpio13 hr mirabegron 50 mg extended release oral tablet (20 sources)beta3-Adrenergic AgonistStart: 50-34-4025tlzi 1 tablet by mouth once daily, then take 1 tablet by mouth every twenty-four hoursmirabegron ER (Myrbetriq) 50 MG 24 hr tablet Take 50 mg by mouth 1 (one) time each day at the same time 03/18/2024 ActiveMisc. Devices (Rollator Ultra-Light) [facility] (20 sources)Start: 06-07-2024 End: 56-67-1477Fbur. Devices (Rollator Ultra-Light) [facility] Indications: 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) 1 rollator with seat for every day use 1 each 06/07/2024 09/29/2024iscontinued Start: 66-74-3209Jnyb. Devices (Rollator Ultra-Light) [facility] Indications: 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) 1 rollator with seat for every day use 1 each 06/07/2024 ActiveMultiple Vitamins- Minerals (CENTRUM SILVER 50+MEN PO) (2 sources) End: 48-13-5196Erxxwxwv Vitamins-Minerals (CENTRUM SILVER 50+MEN PO) Take by mouth 06/07/2024 Discontinuednitroglycerin 0.4 mg sublingual tablet (1 source)Nitrate VasodilatorStart: 01-29-0432uifxijzndpwyq 0.4 mg sublingual tablet 0.4 mg 1 tabs, Sublingual, Q5MIN, PRN, 25 tabs, Date: 08/12/18 9:50:00 AM [facility] [address], Tablet, 1 tabs Sublingual Q5MIN,PRN:Chest Pain Start Date: 08/12/18 Status: Ordered Medication Dispense Status: Completed Quantity: 25.0 Unit: tabs TotalAllowed Fills: 1 Fills Dispensed: 0nystatin 100 unt/mg topical powder (8 sources)Polyene AntifungalStart: 08-15-2025 End: 47-80-3728bhuvruvk (Mycostatin) 847235 UNIT/GM powder Indications: Tinea cruris Apply topically in the morning and before bedtime. 08/15/2025 08/15/2026 ActiveStart: 08-08-2025 End: 15-38-4426ymjakibv (Mycostatin) 273079 UNIT/GM powder Indications: Tinea cruris Apply topically in the morning and before bedtime. 30 g 1 08/08/2025 08/15/2025 Discontinued (Reorder)[place] 4-Zva-Uby-Fish Oil (Fish Oil) 1,000 mg (120 mg-180 mg) capsule (11 sources)Start: 12-60-5177ufbl 1 capsule by mouth once dailyStart: 06-15-2024 take 1 capsule by mouth once dailyOmega 5-Xtq-Ecp-Fish Oil (Fish Oil) 1,000 mg (120 mg-180 mg) capsule Active 1 CAP PO Daily June 15, 2024 12:00am psyllium 400 mg oral capsule (20 sources)Start: 46-80-6244yxhy 6 capsules by mouth once dailypsyllium (Metamucil) 0.36 g capsule Take 6 capsules by mouth Daily ActivePsyllium Husk (Metamucil) 0.4 gram capsule (1 source)Start: 68-17-5360Vrdsexzd Husk (Metamucil) 0.4 gram capsule Active 0.4 GM PO Twice daily March 15, 2025 12:00amsildenafil 100 mg oral tablet (20 sources)Phosphodiesterase 5 InhibitorStart: 03-01-2025 End: 67-69-0050jdhi 1 tablet by mouth once daily as neededsildenafil (Viagra) 100 MG tablet Indications: Erectile dysfunction, unspecified erectile dysfunctio n type Take 1 tablet (100 mg) by mouth Daily as needed for erectile dysfunction 12 tablet 5 03/01/2025 03/01/2026 ActiveStart: 79-80-4670opea 1 tablet by mouth once daily as neededSildenafil Citrate 100 MG Oral Tablet TAKE 1 TABLET BY MOUTH NEEDED ONCE DAILY Quantity: 30 Refills: 0 Ordered: 24-Jan-2022 DO Start : 24-Jan-2022 Completetamsulosin hydrochloride 0.4 mg oral capsule (20 sources)alpha-Adrenergic BlockerStart: 51-89-4492snug 1 capsule by mouth once dailyStart: 48-80-0616gtkq 1 capsule by mouth every twenty-four hours at bedtimetamsulosin (Flomax) 0.4 MG 24 hr capsule Take 0.4 mg by mouth at bedtime 12/16/2024 Activeterbinafine 250 mg oral tablet (20 sources)Allylamine AntifungalStart: 28-69-8463tvxm 1 tablet by mouth once dailyterbinafine (LamISIL) 250 MG tablet Indications: Onychomycosis Take 1 tablet (250 mg) by mouth Daily 90 tablet 1 05/12/2025 ActiveStart: 04-19-2024 End: 58-16-7952uvxr 1 tablet by mouth once dailyterbinafine (LamISIL) 250 MG tablet Indications: Onychomycosis Take 1 tablet (250 mg) by mouth Daily 90 tablet 1 05/12/2025 ActivetraMADol hydrochloride 50 mg oral tablet (20 sources)Opioid AgonistStart: 08-26-2024 End: 75-18-2598fgqq 1 tablet by mouth every eight hours for paintraMADol (Ultram) 50 MG tablet Indications: Myalgia Take 1 tablet (50 mg) by mouth every 8 (eight) hours if needed for severe pain 30 tablet 10/21/2024 ActiveStart: 06-07-2024 End: 69-63-0511glym 1 tablet by mouth every eight hours for paintraMADol (Ultram) 50 MG tablet Indications: Myalgia Take 1 tablet (50 mg) by mouth every 8 (eight) hours if needed for severe pain 30 tablet 06/07/2024 07/19/2024 DiscontinuedStart: 08-53-2930yafPQWes HCl - 50 MG Oral Tablet Quantity: 120 Refills: 0 Ordered: 29-Mar-2021 DO Start : 29-Mar-2021 ActiveStart: 03-26-2021 End: 12-02-7472byit 1 tablet by mouth once daily as needed for painturmeric extract 450 mg oral capsule (1 source)Turmeric 450 MG as directed Orally Activeubidecarenone 200 mg oral capsule (1 source)CoQ10 200 MG as directed Orally Activevitamin B12 (1 source)Vitamin N78Yydubea B12 ActiveVitamin B12 500 mcg oral tablet (1 source)Start: 10-47-2616Mdyrwgz B12 500 mcg oral tablet 500 mcg 1 tabs, ORAL, M,W,F, 90 tabs, Date: 08/25/18 9:23:00 AM [id number], Tablet Start Date: 08/25/18 Status: Ordered Medication Dispense Status: Completed Quantity: 90.0 Unit: tabs Total Allowed Fills: 1 Fills Dispensed: 0 Vitamin C 1000 mg oral tablet (1 source)Start: 48-23-6223Bdhnbmg C 1000 mg oral tablet 1,000 mg 1 tab(s), ORAL, DAILY, Date: 09/07/10 11:34:47 AM EST, Tablet Start Date: 09/07/10 Status: Ordered Medication Dispense Status: Completed Total Allowed Fills: 1 Fills Dispensed: 0Vitamin D3 (1 source)Vitamin D3 ActiveVitamin D3 5000 intl units oral capsule (1 source)Start: 58-76-9073Dkrvtwb D3 5000 intl units oral capsule 5,000 intl_unit 1 caps, ORAL, DAILY, with food, 100 caps, Date: 05/13/18 10:35:00 AM EDT, Capsule Start Date: 05/13/18 Status: Ordered Medication Dispense Status: C ompleted Quantity: 100.0 Unit: caps Total Allowed Fills: 1 Fills Dispensed: 0 vitamin e 180 mg oral capsule (1 source)Start: 55-79-1566bbdrggf E 400 intl units oral capsule 400 intl_unit 1 caps, ORAL, DAILY, Date: 05/13/18 10:35:00 AM EDT, Capsule Start Date: 05/13/18 Status: Ordered Medication Dispense Status: Completed Total Allowed Fills: 1 Fills Dispensed: 0 Completed/Discontinued Medications MedicationDrug Class(es)DatesSig (Normalized)Sig (Original)acetaminophen 325 mg oral capsule (20 sources)Start: 35-83-8115Jlozgzy 325 MG Oral Capsule as directed Quantity: 0 Refills: 0 Ordered: 15-Aug-2016 DO Start : 15-Aug-2016 ActiveStart: 08-15-2016 Tylenol 325 MG Oral Capsule as directed Refills: 0 Start : 15-Aug-2016 Activetake 2 tablets by mouth once dailyacetaminophen (Tylenol) 500 MG tablet Indications: Pain Take 1,000 mg by mouth Daily ActiveTylenol Activeacetaminophen 500 mg / diphenhydrAMINE hydrochloride 25 mg oral tablet (7 sources)Histamine-1 Receptor AntagonistStart: 12-20-2024 End: 61-59-8523roil 2 tablets by mouth once daily at bedtime as needed for sleep and painDiphenhydramine-Acetaminophen (Tylenol Pm Extra Strength) 25-500 mg tablet Discontinued 2 TAB PO Daily at bedtime as needed for sleep and pain December 20, 2024 12:00am May 02, 2025 12:29pmamLODIPine 5 mg oral tablet (20 sources)Dihydropyridine Calcium Channel BlockerStart: 05-04-2025 End: 44-29-2999dopq 1 tablet by mouth once dailyamLODIPine (Norvasc) 5 MG tablet Indications: Hypertension, unspecified type , Orthostatic lightheadedness Take 1 tablet (5 mg) by mouth 1 (one) time each day at the same time 90 tablet 1 05/04/2025 08/08/2025 DiscontinuedStart: 08-25-2019 End: 61-91-0188lydw 1 tablet by mouth once daily in the morningazithromycin 250 mg oral tablet (1 source)Macrolide AntimicrobialStart: 30-59-0374Gtbgawbsdkyw 250 MG Oral Tablet Quantity: 6 Refills: 0 Ordered: 28-Mar-2022 DO Start : 28-Mar-2022 C ompletebaclofen 10 mg oral tablet (20 sources)gamma-Aminobutyric Acid-ergic AgonistStart: 01-06-2025 End: 91-34-1407bjnr 1 tablet by mouth once daily at bedtimeBaclofen 10 mg tablet Discontinued 10 MG PO Daily at bedtime March 15, 2025 12:00am May 02, 2025 12:28pmbenzonatate 200 mg oral capsule (1 source)Non-narcotic AntitussiveStart: 17-31-4935knlm 1 capsule by mouth three times daily as neededBenzonatate 200 MG Oral Capsule TAKE 1 CAPSULE BY MOUTH THREE TIMES A DAY NEEDED Quantity: 20 Refills: 0 Ordered: 28-Mar-2022 DO Start : 28-Mar-2022 Completeclopidogrel 75 mg oral tablet (20 sources)P2Y12 Platelet InhibitorStart: 05-12-2012 End: 83-28-7821ylju 1 tablet by mouth once dailyClopidogrel 75 mg tablet Discontinued 75 MG PO Daily June 04, 2020 12:00am June 15, 2024 1 2:00pmdoxycycline monohydrate 100 mg oral tablet (20 sources)Tetracycline-class DrugStart: 02-24-2024 End: 71-95-1274scmt 1 tablet by mouth twice dailyDoxycycline Monohydrate 100 mg tablet Discontinued 100 MG PO Twice daily February 24, 2024 12:00am 2023 1:58pm started on 02/18/24 x7 days.Start: 60-13-3813Guplhxikrae Hyclate 100 MG Oral Capsule Quantity: 10 Refills: 0 Ordered: 18-Oct-2021 DO Start : 17-Oct-2021 CompleteStart: 06-04-2020 End: 84-87-8396kivk 1 capsule by mouth twice dailyDoxycycline Hyclate 100 mg capsule Discontinued 100 MG PO Twice daily June 04, 2020 12:00am February 06, 2024 2:19pmerythromycin 0.005 mg/mg ophthalmic ointment (4 sources)Macrolide, Macrolide AntimicrobialStart: 09-15-2024 End: 92-81-7289fstceaqljiwe (Romycin) 5 MG/GM ophthalmic ointment Apply 1 application to both eyes in the morning and 1 application in the evening and 1 application before bedtime. 09/15/2024 10/25/2024 DiscontinuedStart: 04-13-2024 End: 42-92-0224ahbwrjldubrx (Romycin) 5 MG/GM ophthalmic ointment APPLY 1/4 INCH RIBBON TO BOTH EYES AT BEDTIME FOR 7 DAYS 04/13/2024 06/07/2024 Discontinued famotidine 20 mg oral tablet (18 sources)Histamine-2 Receptor AntagonistStart: 64-52-2643Ubsgtfraxx 20 MG Oral Tablet Quantity: 90 Refills: 0 Ordered: 25-Jun-2021 DO Start : 25-Jun-2021 Activeferrous sulfate 325 mg oral tablet (2 sources)Start: 82-12-1640wbkc 1 tablet by mouth twice dailyFerrous Sulfate 325 (65 Fe) MG Oral Tablet TAKE 1 TABLET BY MOUTH TWICE A DAY Quantity: 180 Refills: 0 Ordered: 05-May-2022 DO Start : 05-May-2022 Completetake 1 tablet by mouth every twenty-four hoursFerrous Sulfate 325 (65 Fe) MG 1 tablet Orally Once a day ActiveFreeStyle InsuLinx System w/Device Kit (2 sources)Start: 61-14-2630XeepJvahc InsuLinx System w/Device Kit USE DIRECTED Quantity: 1 Refills: 0 Poli Mercado MD Start : 19-Aug-2017 Active glimepiride 1 mg oral tablet (20 sources)SulfonylureaStart: 04-07-2019 End: 50-05-5049vjug 1 tablet by mouth once dailyGlimepiride 1 mg tablet Discontinued 1 MG PO Daily June 04, 2020 12:00am February 26, 2024 1:58pm ammonium lactate 120 mg/ml topical lotion (4 sources)Start: 00-60-9367IcRaztju 12 % External Lotion APPLY AND RUB IN A THIN FILM TO AFFECTED AREAS TWICE DAILY.(AM AND PM). Quantity: 1 Refills: 5 Ordered: 22-Aug-2017 Poli Mercado MD Start : 22-Aug-2017 ActiveStart: 14-76-3882CsQrftnx 12 % External Lotion APPLY AND RUB IN A THIN FILM TO AFFECTED AREAS TWICE DAILY.(AM AND PM). Quantity: 1 Refills: 5 Poli Mercado MD Start : 22-Aug-2017 Active 225 GM Bottlelevothyroxine sodium 0.025 mg oral tablet (16 sources)l-ThyroxineStart: 06-04-2020 End: 87-35-5774Bcovutfsagryl 25 mcg tablet Discontinued June 04, 2020 12:00am February 06, 2024 2:19pmStart: 06-04-2020 End: 78-14-5600Aakynvapqvnda 25 mcg tablet Discontinued TABLET June 04, 2020 12:00am February 06, 2024 2:19pmStart: 06-04-2020 End: 89-19-4652Jxutehruwrxfm Discontinued TABLET June 04, 2020 12:00am February 06, 2024 2:19pmmeloxicam 15 mg oral tablet (3 sources)Nonsteroidal Anti-inflammatory DrugStart: 37-98-1913Qphruttzq 15 MG Oral Tablet Quantity: 30 Refills: 0 Ordered: 20-Feb-2021 DO Start : 11-Aug-2020 Activeoseltamivir 30 mg oral capsule (1 source)Neuraminidase InhibitorStart: 46-30-7485tbnj 1 capsule by mouth twice dailyOseltamivir Phosphate 30 MG Oral Capsule TAKE 1 CAPSULE BY MOUTH TWICE DAILY FOR 5 DAYS Quantity: 10 Refills: 0 Ordered: 18-Mar-2022 DO Start : 18-Mar-2022 Zzgnwqpu46 hr oxybutynin chloride 10 mg extended release oral tablet (20 sources)Cholinergic Muscarinic AntagonistStart: 03-26-2021 End: 30-05-3564kccr 1 tablet by mouth once dailyOxybutynin Chloride 10 mg tablet extended release 24hr Discontinued 10 MG PO Daily February 24, 2024 12:00am February 26, 2024 1:58pmStart: 87-11-1035opuq 1 tablet by mouth every twenty-four hours Oxybutynin Chloride ER 10 MG Oral Tablet Extended Release 24 Hour Quantity: 90 Refills: 0 Ordered: 02-Jul-2021 DO Start : 19-Oct-2020 Activeramipril 10 mg oral capsule (13 sources)Angiotensin Converting Enzyme InhibitorStart: 50-30-7019uwhc 1 capsule by mouth once dailyRamipril 10 MG Oral Capsule TAKE 1 CAPSULE BY MOUTH DAILY Quantity: 90 Refills: 3 Ordered: 30-Jul-2019 Poli Mercado MD Start : 31-Aug-2012 Active Problems Active Problems Problem ClassificationProblemDateDocumented DateEpisodic/ChronicAcquired foot deformities (3 sources)Hammer toe; Translations: [Other hammer toe(s) (acquired), right foot]36-28-0108ZzrtxifTvvgk myocardial infarction (20 sources)Myocardial infarction; Translations: [Acute myocardial infarction, unspecified]Onset: 169343-26-2446EqwfuwwGufaiscyysotdc/social admission (1 source)Total self-care cdlbcyh49-00-0787DynsbwjmMjybntx dysrhythmias (20 sources)Sick sinus syndrome; Translations: [Sick sinus syndrome]Onset: 650071-98-7003PgxfawuSzygveb dysrhythmias (3 sources)Bradycardia; Translations: [Bradycardia, unspecified]06-24-2025 EpisodicChronic kidney disease (20 sources)Chronic kidney disease stage 3A ; Translations: [Stage 3a chronic kidney disease (HCC)]Onset: 888056-99-6127GmtaidaZionmpyyot disorders (20 sources)H/O: cardiac pacemaker in situ; Translations: [Presence of cardiac pacemaker]Onset: 181421-14-5987RjnigeqDijctivwlm heart failure; nonhypertensive (20 sources)Chronic systolic heart failure; Translations: [Chronic systolic (congestive) heart failure]Onset: 72-36-3562SqbpwhvLfqcddaf atherosclerosis and other heart disease (20 sources)Coronary arteriosclerosis; Translations: [Coronary atherosclerosis of unspecified type of vessel, [place] or graft]Onset: ChronicDeficiency and other anemia (1 source)Flstjd31-58-2468QapladhwWlwaitpv, dementia, and amnestic and other cognitive disorders (13 sources)Dementia; Translations: [Unspecified dementia without behavioral disturbance]51-67-2651JjkbmqkMyepbezn mellitus with complications (20 sources)Disorder of kidney due to diabetes mellitus; Translations: [Type 2 diabetes mellitus with diabetic nephropathy]Onset: hronic Diabetes mellitus without complication (20 sources)Secondary diabetes mellitus; Translations: [Secondary diabetes mellitus without mention of complication, not stated as uncontrolled, or unspecified]Onset: 909151-70-0403ZtspxioPsiujlaiq of lipid metabolism (20 sources)Hyperlipidemia; Translations: [Other and unspecified hyperlipidemia] Onset: 670962-73-9922TyqmczpR Codes: Fall (2 sources)Fall; Translations: [Unspecified fall, sequela]86-65-6541Vwaqdpfu Essential hypertension (20 sources)Hypertensive disorder; Translations: [Unspecified essential hypertension]Onset: 32-34-1028YjhvudmCmrypzhvzrb of prostate (20 sources)Benign prostatic hyperplasia; Translations: [Benign prostatic hyperplasia without lower urinary tract symptoms]Onset: ChronicHypertension with complications and secondary hypertension (3 sources)Hypertensive heart failure; Translations: [Hypertensive heart disease with heart failure]88-92-8549UnmezsiSmdrj disorders and dislocations; trauma-related (20 sources)Tear of medial meniscus of knee; Translations: [Tear of medial cartilage or meniscus of knee, current]EpisodicMycoses (11 sources)Onychomycosis; Translations: [Tinea unguium]10-20-4417Ombgjitq Neoplasms of unspecified nature or uncertain behavior (2 sources)Neoplastic disease; Translations: [Neoplasm of unspecified behavior of bone, soft tissue, and skin]54-11-1187OgyqlmmtVbaobawrtcn deficiencies (20 sources)Vitamin D deficiency; Translations: [Unspecified vitamin D deficiency]Onset: 642839-83-6697TkjgohmZtrqnxgnxyrvgd (20 sources)Degenerative joint disease involving multiple joints; Translations: [Polyosteoarthritis, unspecified]Onset: 382680-40-9899ZwakhxxBioln circulatory disease (2 sources)Raynaud's disease; Translations: [Raynaud's syndrome without gangrene]83-64-3648VaxjmuhEwdcp circulatory disease (13 sources)Abnormal peripheral pulse; Translations: [Other specified symptoms and signs involving the circulatory and respiratory systems]72-57-4769Ygmczigd Other circulatory disease (6 sources)Other specified symptoms and signs involving the circulatory and respiratory systems; Translations:[Other symptoms involving cardiovascular system]49-04-7691HqhjfcgdPzhfe circulatory disease (2 sources)Spider nevus; Translations: [Nevus, non-neoplastic]64-57-7616Qjetdcqe Other circulatory disease (2 sources)Low blood pressure; Translations: [Hypotension, unspecified] 65-16-1236RbgmsxeiUtiiq connective tissue disease (20 sources)Pain in lower limb; Translations: [Pain in limb]EpisodicOther connective tissue disease (20 sources)H/O: osteoarthritis; Translations: [Personal history of arthritis] EpisodicOther connective tissue disease (5 sources)Other muscle spasm; Translations: [OTHER MUSCLE SPASM]Onset: 91-82-7633LpygwnvcRkmyc connective tissue disease (5 sources)Muscle pain; Translations: [Myalgia, unspecified site]07-18-2024 EpisodicOther connective tissue disease (4 sources)Pain in both feet; Translations: [Pain in right foot]09-29-2024 EpisodicOther connective tissue disease (2 sources)Recurrent falls ; Translations: [Repeated falls]18-17-4775Alhsrxqe Other diseases of bladder and urethra (1 source)Overactive bladder; Translations: [Overactive bladder]Onset: 54-23-4869FlkbolrCrrxm diseases of veins and lymphatics (20 sources)Vascular insufficiency; Translations: [Venous (peripheral) insufficiency, unspecified]EpisodicOther gastrointestinal disorders (1 source)Obese -18-9632EeqlbztzGnsix lower respiratory disease (20 sources)Snoring; Translations: [Other respiratory abnormalities]Episodic Other male genital disorders (2 sources)Male erectile dysfunction, unspecified; Translations: [Impotence of organic origin]17-44-8809WafmlyeKrnza male genital disorders (20 sources)H/O: male genital disorder; Translations: [Personal history of other specified diseases]EpisodicOther male genital disorders (2 sources)Edema of scrotum; Translations: [Other specified disorders of the male genital organs]32-38-4858RfvzlmkzYngqq nervous system disorders (1 source)H/O: eye disorder; Translations: [Personal history of other disorders of nervous system and sense organs]EpisodicOther nervous system disorders (20 sources)Personal history of other diseases of the nervous system and sense organs; Translations: [History of conjunctivitis]EpisodicOther non-epithelial cancer of skin (4 sources)History of malignant neoplasm of skin; Translations: [Personal history of other malignant neoplasm of skin]11-94-8415KvmjybjfBioxu non- traumatic joint disorders (2 sources)Pain in right knee; Translations: [Pain in joint, lower leg] 64-57-1326HgqiruocUmmte nutritional; endocrine; and metabolic disorders (20 sources)Obesity; Translations: [Obesity, unspecified]ChronicOther nutritional; endocrine; and metabolic disorders (20 sources)Hyperphosphatemia; 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]ChronicOther nutritional; endocrine; and metabolic disorders (1 source)Body mass index 30+ - obesity; Translations: [Body mass index (BMI) 31.0-31.9, adult]ChronicOther nutritional; endocrine; and metabolic disorders (1 source)Body mass index (BMI) 31.0-31.9, adultChronicOther nutritional; endocrine; and metabolic disorders (20 sources)H/O: raised blood lipids; Translations: [Personal history of other endocrine, metabolic, and immunity disorders]EpisodicOther screening for suspected conditions (not mental disorders or infectious disease) (20 sources)Patient encounter status; Translations: [Screening for malignant neoplasms of prostate]Onset: 002572-99-4116JfksyntwQmzis skin disorders (2 sources)Seborrheic keratosis; Translations: [Other seborrheic keratosis] 53-96-4249OpfrcxgwQeedu skin disorders (2 sources)Lentiginosis; Translations: [Other melanin hyperpigmentation] 47-36-3833CobrsarxRpotn skin disorders (1 source)Callosity; Translations: [Corns and callosities]30-13-0595Zwyynyma Peripheral and visceral atherosclerosis (20 sources)Peripheral vascular disease, unspecified; Translations: [PAD (peripheral artery disease)]Onset: 687959-70-6868ZhgqbmgPjcpcxmi codes; unclassified (20 sources)Obstructive sleep apnea syndrome; Translations: [Obstructive sleep apnea (adult)(pediatric)]Onset: 574000-75-5512JdxudezVhjmnzt on above: unable to tolerate cpapResidual codes; unclassified (1 source)Sleep apnea, unspecified; Translations: [Sleep apnea]ChronicResidual codes; unclassified (3 sources)Obstructive sleep apnea (adult) (pediatric); Translations: [Obstructive sleep apnea (adult)(pediatric)]Onset: 29-24-4533DwjivueRegxtcuh codes; unclassified (1 source)Family history of malignant neoplasm of digestive organs; Translations: [Family history of colon cancer]EpisodicResidual codes; unclassified (5 sources)Other specified health status; Translations: [Other specified conditions influencing health status]EpisodicResidual codes; unclassified (15 sources)Altered mental status; Translations: [Altered mental status, unspecified]56-62-7636SelgcpckVsqsihel codes; unclassified (1 source)Edema of right lower pppu93-49-1467GzujolacWabjwikn codes; unclassified (1 source)Requires -33-1798ZyycmujdVdvs and subcutaneous tissue infections (20 sources)Cellulitis; Translations: [Cellulitis, unspecified]06-04-2020 EpisodicComment on above:Problem List clean-up per request of Phys. EHR Cmte Spondylosis; intervertebral disc disorders; other back problems (20 sources)Spondylosis without myelopathy or radiculopathy, lumbosacral region; Translations: [Other spondylosis, sacral and sacrococcygeal region]Onset: 64-91-7591BvlyxcfCikpsvncebo; intervertebral disc disorders; other back problems (20 sources)Spinal stenosis, site unspecified; Translations: [Radiculopathy, lumbar region]Onset: 87-47-2244YskclonfMuwmfqp (3 sources)Near syncope; Translations: [Syncope and collapse]Onset: 05-02-2025 35-31-4811PclrkngbOcbjahb disorders (20 sources)Hypothyroidism; Translations: [Hypothyroidism, unspecified]Onset: 594102-05-4493XkokhvbTbqvsoxvhyko (20 sources)Parkinson's disease; Translations: [Parkinson's disease]03-05-2024 ChronicUnclassified (20 sources)Parkinsonism; Translations: [Parkinsonism]Onset: 03-01-2024 63-68-9297TjzmrcjFazijnrjudlm (4 sources)LOW BACK PAIN, UNSPECIFIED; Translations: [LOW BACK PAIN, UNSPECIFIED]Onset: 88-40-9679Qzwqszqnbjll (2 sources)Complication of ventilation therapy; Translations: [Intolerance of noninvasive positive pressure therapy]17-31-3582Klokrysmolur (1 source)Patient encounter -37-6080Ivjincs tract infections (3 sources)Urinary tract infectious disease; Translations: [Urinary tract infection, site not specified]52-16-1661Amtudryg Past or Other Problems Problem ClassificationProblemDateDocumented DateEpisodic/ChronicComplications of surgical procedures or medical care (20 sources)Complication of ventilation therapy; Translations: [Complication of inhalation therapy, initial encounter]Onset: 673024-94-1302Cadhqrml Conditions associated with dizziness or vertigo (20 sources)Orthostatic hypotension; Translations: [Dizziness and giddiness] Onset: 355049-82-6292HqhneggaLxvlpijh atherosclerosis and other heart disease (20 sources)Patient post percutaneous transluminal coronary angioplasty; Translations: [Coronary angioplasty status]Onset: 054358-09-5482Mapyqlzt Fluid and electrolyte disorders (20 sources)Dehydration; Translations: [Dehydration]Onset: EpisodicHeart valve disorders (1 source)Cardiac murmur, unspecified; Translations: [Cardiac murmur, unspecified]Onset: 92-69-3525VyezirlwGpwg disorders (20 sources)Mood disordersOnset: 11-03-2023 Resolved: Other connective tissue disease (1 source)Muscle wasting and atrophy, not elsewhere classified, unspecified site; Translations: [MUSCLE WASTING ATROPHY NEC UNS SITE]Onset: 05-27-2022 EpisodicOther eye disorders (1 source)Myogenic ptosis of unspecified eyelid; Translations: [Myogenic ptosis of unspecified eyelid]Onset: 56-14-5318AbidrnaxMuqrq lower respiratory disease (1 source)Shortness of breath; Translations: [Shortness of breath]Onset: 26-28-0433VcigyzzsLkgukjlbsanf (1 source)LOW BACK PAIN, UNSPECIFIED; Translations: [LOW BACK PAIN, UNSPECIFIED] Onset: 87-08-5374ZZZEUNL: Highlighted row has not occurred!Residual codes; unclassified (6 sources)DiseaseEpisodic Results Test NameValueInterpretationReference RangeFacilityXR HIP 2 OR 3 VW RIGHTon 32-03-6441PX HIP 2 OR 3 VW RIGHTEXAMINATION: XR HIP 2 OR 3 VW RIGHT HISTORY: Hip pain since a fall COMPARISONS: None available TECHNIQUE: Frontal view of the pelvis and frontal and lateral views of the hip. FINDINGS: No acute proximal femur fracture. No hip dislocation. Mild degenerative changes of both hips. Prominence at the femoral head-neck junction can be seen with cam type impingement. Visualized bones of the pelvis are within normal limits. Degenerative changes of the lower lumbar spine. Atherosclerotic vascular calcifications noted. IMPRESSION: No acute osseous abnormality. ELECTRONICALLY SIGNED BY: Bridgett Otto AvailableXR LUMBAR SPINE 2-3 VIEWSon [id number] LUMBAR SPINE 2-3 VIEWSEXAMINATION: XR LUMBAR SPINE 2-3 VIEWS TECHNIQUE: 4 [...] spondylolisthesis. Atherosclerotic calcification of the abdominal aorta. IMPRESSION: No acute osseous abnormality. Degenerative changes of the lumbar spine. ELECTRONICALLY SIGNED BY: Xochitl OttoNot AvailableUrinalysis macro (dipstick) panel (U)on 37-20-2295Gslzduqyz, UANegativeNegative - 4(70) +++ mg/dL [facility] HealthcareBlood, UAPositiveNegative - 50 Dario/mcLNOMS HealthcareComment on above:TraceClarity, UACloudyNOMS HealthcareColor, UAYellowNOMS Healthcare Glucose, UAManyNegative - 1999(110) ++++ mg/dLNOTX HealthcareInterpretation and review of laboratory resultsAbnormalNOTX HealthcareKetones, UANegativeNegative - 160(16) ++++ mg/dLNOTX HealthcareLeukocytes, UAPositiveNegative - 500+++ Jenn/mcL [facility] HealthcareComment on above:smallNitrite, UANegativeNegative - PositiveNOMS HealthcarepH, UA5.55 - 9NOMS HealthcareProtein, UA3+Negative - 1999(20) ++++ mg/dLNOTX HealthcareSpec Grav, UA1.0151 - 1.03NOMS HealthcareUrobilinogen, UA0.2 0.2 - 12 mg/dLNOParkland Health CenterNOTX HealthcareHepatic function 1999 panelon [id number] [Mass/Vol]3.9 g/dL3.8 - 4.8 g/dLNOTX HealthcareALP [Catalytic activity/Vol]160 U/LHighNOTX HealthcareALT [Catalytic activity/Vol]U/LNOMS HealthcareComment on above:Verified by repeat analysisAST [Catalytic activity/Vol]6 U/LNOMS HealthcareBilirubin [Mass/Vol]0.3 mg/dL0.0 - 1.2 mg/dL NOM HealthcareBilirubin.direct [Mass/Vol]0.13 mg/dL0.00 - 0.40 mg/dLNOTX HealthcareInterpretation and review of laboratory resultsAbnoSelect Specialty Hospital - York Protein [Mass/Vol]6.8 g/dL6.0 - 8.5 g/dLNOTX HealthcareNo Panel Informationon [id number] at: Lab[address] [id number] Technical Sales Consultant: Nahun Pickering PhD, Phone: [phone] Healthcare Specimen Status Reporton [id number] Disk diffusion (KB) [Susc]Comment NOMS HealthcareComment on above:Jennifer Veras HFP7 Default Jennifer Martinv HFP7 Default A hand-written panel/profile was received from your office. In accordance with the [facility] Ambig[facility] Test Code Policy dated April 2003, we have completed your order by using the closest currently or formerly recognized AMA panel. We have assigned Hepatic Function Panel (7), Test Code #[id number] to this request. If this is not the testing you wished to receive on this specimen, please contact the [facility] Client Inquiry/Technical Services Department to clarify the test order. We appreciate your business. XR KNEE 3 VIEWS RIGHTon [id number] KNEE 3 VIEWS RIGHTEXAMINATION/TECHNIQUE: XR KNEE 3 VIEWS RIGHT HISTORY: Fall with right knee pain. COMPARISON: None RESULT: Right total knee arthroplasty with patellar resurfacing. Hardware grossly intact. No evidence for periprosthetic fracture or acute fracture elsewhere about the knee. Mild soft tissue edema. Vascular calcifications. IMPRESSION: No acute osseous findings. ELECTRONICALLY SIGNED BY: Roe Garcia MDNorayrayalNot AvailableB-Type Natriuretic Peptideon [id number] peptide B (Bld) [Mass/Vol]83.0 pg/mL Normal5-100[facility] Physician [facility] Children'S HospitalComment on above:Result Comment: PERFORMED BY: [facility] [address] [place] [address] PATHOLOGIST HIP HOP ARTIST MARE CARLOS M.D.Performed By: #### BNP, CBC, PT, CMP, CK, HS TROP, MG, PTT ####[place] [id number] [place] [id number] [facility] Complete Blood Count Auto Diffon 69-24-3818Sntmmjxxg (Bld) [#/Vol]0.0 10*3/uL Normal0.0-0.2The [facility]. [facility]andt Veterans Affairs Medical CenterComment on above:Result Comment: PERFORMED BY: [facility] [address] [place] [id number] PATHOLOGIST HIP HOP ARTIST MARE CARLOS M.D.Performed By: #### BNP, CBC, PT, CMP, CK, HS TROP, MG, PTT ####[place] [address] [place] [id number] [facility] Basophils/100 WBC (Bld)0.6 %Normal.The [facility] Physician GroupComment on above:Performed By: #### BNP, CBC, PT, CMP, CK, HS TROP, MG, PTT ####[place] [address] USAEosinophils (Bld) [#/Vol]0.3 10*3/uLNormal0.0-0.45The [facility] Physician GroupComment on above: Performed By: #### BNP, CBC, PT, CMP, CK, HS TROP, MG, PTT ####[place] [address] USAEosinophils/100 WBC (Bld)3.8 %Normal.The [facility] Physician GroupComment on above:Performed By: #### BNP, CBC, PT, CMP, CK, HS TROP, MG, PTT ####[place] [address] USAErythrocyte distribution width (RBC) [Ratio]14.5 %Mykcij28.0-14.8The [facility] Physician GroupComment on above: Performed By: #### BNP, CBC, PT, CMP, CK, HS TROP, MG, PTT ####[place] [address] USAHematocrit (Bld) [Volume fraction]37.6 %Low38.8-50.0The [facility] Physician GroupComment on above:Performed By: #### BNP, CBC, PT, CMP, CK, HS TROP, MG, PTT ####[place] [address] USAHemoglobin (Bld) [Mass/Vol]12.4 g/dLLow13.0-17.0The [facility] Physician GroupComment on above: Performed By: #### BNP, CBC, PT, CMP, CK, HS TROP, MG, PTT ####[place] [address] USALymphocytes (Bld) [#/Vol]2.2 10*3/uLNormal1.00-4.8The [facility] Physician GroupComment on above: Performed By: #### BNP, CBC, PT, CMP, CK, HS TROP, MG, PTT ####[place] [address] USALymphocytes/100 WBC (Bld)30.5 %Normal.The [facility] Physician GroupComment on above:Performed By: #### BNP, CBC, PT, CMP, CK, HS TROP, MG, PTT ####[address] (RBC) [Entitic mass]29.4 pgNormal 27.5-35.2The [facility] Physician GroupComment on above:Performed By: #### BNP, CBC, PT, CMP, CK, HS TROP, MG, PTT ####[address] (RBC) [Entitic vol]89.2 tDPjvrfv94.5-101The [facility] Physician GroupComment on above:Performed By: #### BNP, CBC, PT, CMP, CK, HS TROP, MG, PTT ####[place] [address] USAMe Corpuscular HGB Conc33.0 g/dGBgpcgr47.5-35.6The [facility] Physician GroupComment on above:Performed By: #### BNP, CBC, PT, CMP, CK, HS TROP, MG, PTT ####[place] [address] USAMonocytes (Bld) [#/Vol]0.6 10*3/uLNormal0.0-0.8The [facility] Physician GroupComment on above:Performed By: #### BNP, CBC, PT, CMP, CK, HS TROP, MG, PTT ####[place] [address] USAMonocytes/100 WBC (Bld)18.89 %Normal0.00-20.00The [facility] Physician GroupComment on above:Performed By: #### BNP, CBC, PT, CMP, CK, HS TROP, MG, PTT ####[address]Monocytes/100 WBC (Bld)8.0 %Normal.The [facility] Physician GroupComment on above:Performed By: #### BNP, CBC, PT, CMP, CK, HS TROP, MG, PTT ####[place] [address] USANeutrophils (Bld) [#/Vol]4.1 10*3/uLNormal1.8-7.7The [facility] Physician GroupComment on above:Performed By: #### BNP, CBC, PT, CMP, CK, HS TROP, MG, PTT ####[place] [address] USANeutrophils/100 WBC (Bld)57.1 %Normal.The [facility] Comment on above:Performed By: #### BNP, CBC, PT, CMP, CK, HS TROP, MG, PTT ####[place] [address] USANRBC% 0.1 /100{WBC}Normal0-0.5The [facility] Physician GroupComment on above:Performed By: #### BNP, CBC, PT, CMP, CK, HS TROP, MG, PTT ####[place] [address] USAPlatelet mean volume (Bld) [Entitic vol]8.4 fLNormal6.6-10.1The [facility] Physician GroupComment on above:Performed By: #### BNP, CBC, PT, CMP, CK, HS TROP, MG, PTT ####[place] [address] USAPlatelets (Bld) [#/Vol]254 10*3/uL Ibrxwq195-030Dks [facility] Physician GroupComment on above:Performed By: #### BNP, CBC, PT, CMP, CK, HS TROP, MG, PTT ####[place] [address] USARBC (Bld) [#/Vol]4.22 10*6/uLNormal3.90-5.60 The [facility] Physician GroupComment on above:Performed By: #### BNP, CBC, PT, CMP, CK, HS TROP, MG, PTT ####[place] [address] USAWBC (Bld) [#/Vol]7.2 10*3/uLNormal4.1-10.5The [facility] Physician GroupComment on above:Performed By: #### BNP, CBC, PT, CMP, CK, HS TROP, MG, PTT ####[place] [address] USAWhite Blood Count7.2 [CFU]/mLNormal4.1-10.5The [facility] Physician GroupComment on above:Performed By: #### BNP, CBC, PT, CMP, CK, HS TROP, MG, PTT ####[place] [address] USAComprehensive Metabolic Panelon 43-54-5223Vzfmkoy [Mass/Vol]3.8 g/dLNormal3.5-5.7The [facility] Physician GroupComment on above: Performed By: #### BNP, CBC, PT, CMP, CK, HS TROP, MG, PTT ####[place] [address] USAAlbumin/Globulin [Mass ratio]1.2 {ratio}NormalThe [facility] Physician GroupComment on above: Performed By: #### BNP, CBC, PT, CMP, CK, HS TROP, MG, PTT ####[place] [address] USAALP [Catalytic activity/Vol]146 U/WSujs66-300Zdp [facility] Physician GroupComment on above: Performed By: #### BNP, CBC, PT, CMP, CK, HS TROP, MG, PTT ####[place] [address] USAALT [Catalytic activity/Vol]U/LLow7-52The [facility] Physician GroupComment on above:Performed By: #### BNP, CBC, PT, CMP, CK, HS TROP, MG, PTT ####[place] [address] USAAnion gap [Moles/Vol]10.7 mmol/LNormal 6.0-15.0The [facility] Physician GroupComment on above:Performed By: #### BNP, CBC, PT, CMP, CK, HS TROP, MG, PTT ####[place] [address] USAAST [Catalytic activity/Vol]12 U/XQos83-02Uyn [facility] Physician GroupComment on above:Performed By: #### BNP, CBC, PT, CMP, CK, HS TROP, MG, PTT ####[place] [address] USABilirubin [Mass/Vol]0.4 mg/dLNormal0.3-1.0The [facility] Physician GroupComment on above:Performed By: #### BNP, CBC, PT, CMP, CK, HS TROP, MG, PTT ####[place] [address] USACalcium [Mass/Vol]9.4 mg/dLNormal8.6-10.3The [facility] Physician GroupComment on above:Performed By: #### BNP, CBC, PT, CMP, CK, HS TROP, MG, PTT ####[place] [address] USAChloride [Moles/Vol]106 mmol/YJuwxlc23-181Lqc [facility] Physician GroupComment on above:Performed By: #### BNP, CBC, PT, CMP, CK, HS TROP, MG, PTT ####[place] [address] USACO2 [Moles/Vol]23.7 mmol/GVghrjx56.0-31.0The [facility] Physician GroupComment on above:Performed By: #### BNP, CBC, PT, CMP, CK, HS TROP, MG, PTT ####[place] [address] USACreatinine [Mass/Vol]1.55 mg/dLHigh0.70-1.30The [facility] Physician GroupComment on above:Performed By: #### BNP, CBC, PT, CMP, CK, HS TROP, MG, PTT ####[place] [address] [place] [id number] USACreatinine Clr Calc Uizhjkpv64.23NormalThe [facility] Physician GroupComment on above:Performed By: #### BNP, CBC, PT, CMP, CK, HS TROP, MG, PTT ####[place] [address] [place] [address] USAGFR/1.73 sq M.predicted MDRD (S/P/Bld) [Vol rate/Area]45.249 mL/min/{1.73_m2}NormalThe [facility] Physician GroupComment on above:Performed By: #### BNP, CBC, PT, CMP, CK, HS TROP, MG, PTT ####[place] [address] [place] [address] USAGlobulin (S) [Mass/Vol]3.2 g/dLNormal The [facility] Physician GroupComment on above:Performed By: #### BNP, CBC, PT, CMP, CK, HS TROP, MG, PTT ####[place] [address] USAGlucose [Mass/Vol]192 mg/yREued56-448Ltk [facility] Physician GroupComment on above:Result Comment: Random Glucose Reference Range is dependent on time and content of last meal. Glucose of more than 200 mg/dL in a nonstressed, ambulatory subject supports the diagnosis of Diabetes Mellitus. ADA recommended reference rangePerformed By: #### BNP, CBC, PT, CMP, CK, HS TROP, MG, PTT ####[place] [id number] USAPotassium [Moles/Vol]4.4 mmol/LNormal3.5-5.1The [facility] Physician GroupComment on above:Performed By: #### BNP, CBC, PT, CMP, CK, HS TROP, MG, PTT ####[place] [address] [place] Protein [Mass/Vol]7.0 g/dLNormal6.4-8.9The [facility] Physician GroupComment on above:Performed By: #### BNP, CBC, PT, CMP, CK, HS TROP, MG, PTT ####[place] [address] [place] [id number] USASodium [Moles/Vol]136 mmol/YJxajeq788-515Qod [facility] Physician GroupComment on above:Performed By: #### BNP, CBC, PT, CMP, CK, HS TROP, MG, PTT ####[place] [address] [place] [phone] USAUrea nitrogen [Mass/Vol]35 mg/dLHigh 7 [facility] Physician GroupComment on above:Performed By: #### BNP, CBC, PT, CMP, CK, HS TROP, MG, PTT ####[place] [address] [place] [phone] USACreatine Kinaseon 02-34-5991ZX [Catalytic activity/Vol]41 U/ZAwrzuy57-003Kub [facility] Physician [facility]S HospitalComment on above: Performed By: #### BNP, CBC, PT, CMP, CK, HS TROP, MG, PTT ####[place] [address] USAECG 12 lead ECGon 68-25-2344JHK 12 lead ECGST. [facility] Main [place] [address] [place] [address] Electrocardiograph Report Signed Patient: Ramon Mariee MR#: [id number] : 1945 Acct:[id number] Age/Sex: 79 / M ADM Date: 05/02/25 Loc: ER Room: Type: [facility] ER Attending Dr: Ordering Provider: Nnamdi [...] supraventricular complexes Confirmed by Nnamdi DOZIER DO ([id number]) on 05/02/2025 7:13:53 PM Referred By: Electronically Signed By: Nnamdi DOZIER DO Transcribed By: MUS Signed By Nnamdi Dozier, DO 0 05/02/25 1913NormBaptist Health [facility] Physician [facility]S HospitalGlucose Poct Glucometerson 20-22-8953Qxprixl [Mass/Vol]172 mg/dLNoSouthwest General Health CenterComment on above:Result Comment: Random Glucose Reference Range is dependent on time and content of last meal. Glucose of more than 200 mg/dL in a nonstressed, ambulatory subject supports the diagnosis of Diabetes Mellitus. PERFORMED BY: [address] [id number] PATHOLOGIST HIP HOP ARTIST MARE CARLOS M.D.Performed By: #### GLULS ####Point of Care testing, Magnesiumon 62-54-8899Lhumqexuf [Mass/Vol]2.1 mg/dLNormal1.9-2.7The [facility] Physician [facility]S HospitalComment on above:Result Comment: PERFORMED BY: [address] [id number] PATHOLOGIST HIP HOP ARTIST MARE CARLOS M.D.Performed By: #### BNP, CBC, PT, CMP, CK, HS TROP, MG, PTT ####[address] [address] USAPartial Thromboplastin Timeon 75-41-5837cRIK Coag (Bld) [Time]27.9 cZmwapg34.1-36.5The [facility] Physician [facility]S HospitalComment on above:Result Comment: A hematocrit value greater than 55% may lead to inaccurate results in coagulation testing. Patients having hematocrit values >55% require a special collection tube for coagulation studies. Please contact the laboratory at [phone] for redraw instructions. PERFORMED BY: [address] [place] [address] PATHOLOGIST HIP HOP ARTIST MARE CARLOS M.D.Performed By: #### BNP, CBC, PT, CMP, CK, HS TROP, MG, PTT ####[address] [address] [place] Prothrombin Time INRon 39-32-8913TPI Coag (PPP) [Relative time]1.0 {INR}Normal The [facility] Physician GroupComment on above:Result Comment: INR Therapeutic Range A) Pre- and [...] patients with mechanical heart valves: 3 - 4.5Performed By: #### BNP, CBC, PT, CMP, CK, HS TROP, MG, PTT ####[place] [address] [place] [phone] USAPT Coag (PPP) [Time]11.2 sNormal9.0-12.9The [facility] Physician GroupComment on above:Result Comment: A hematocrit value greater than 55% may lead to inaccurate results in coagulation testing. Patients having hematocrit values >55% require a special collection tube for coagulation studies. Please contact the laboratory at [phone] for redraw instructions.Performed By: #### BNP, CBC, PT, CMP, CK, HS TROP, MG, PTT ####[place] [id number] [place] Troponin I High Sensitivityon 14-89-4237Pjntqopl I High Blefdknldce5Cenvvf1-52 The [facility] Physician GroupComment on above:Result Comment: The Troponin units of report have been changed to meet the Chest Pain Accreditation requirement, element EC5.M1l2. Troponin units are changed from pg/ml to ng/L. Also, the decimal is removed and results are in whole numbers. PERFORMED BY: [place] [id number] PATHOLOGIST HIP HOP ARTIST MARE CARLOS M.D.Performed By: #### HS TROP #### [place] [address] USATroponin I High Xahkxtuqojg5Ghowfr3-16Hxt [facility] Physician GroupComment on above:Result Comment: The Troponin units of report have been changed to meet the Chest Pain Accreditation requirement, element EC5.M1l2. Troponin units are changed from pg/ml to ng/L. Also, the decimal is removed and results are in whole numbers. PERFORMED BY: [place] [id number] PATHOLOGIST HIP HOP ARTIST MARE CARLOS M.D.Performed By: #### BNP, CBC, PT, CMP, CK, HS TROP, MG, PTT ####[facility] [address] [place] [address] Urinalysison 56-94-7390Uxkappdchx (U)ClearNormalClearEd [facility] Physician GroupComment on above:Order Comment: Name Collection Type:: Clean-Voided MidstreamPerformed By: #### UA #### [place] [address] USABilirubin,UrineNegativeNormalNegativeEd [facility] Physician GroupComment on above:Order Comment: Name Collection Type:: Clean- Voided MidstreamPerformed By: #### UA #### [place] [address] USAColor (U)YellowNormalYellowEd [facility] Physician Group Comment on above:Order Comment: Name Collection Type:: Clean-Voided Midstream Performed By: #### UA #### [place] [address] USAGlucose Ql (U)>=NormalNormalThe [facility] Group Comment on above:Order Comment: Name Collection Type:: Clean-Voided Midstream Performed By: #### UA #### [place] [address] USAKetones Ql (U)NegativeNormalNegativeEd [facility] Physician GroupComment on above:Order Comment: Name Collection Type:: Clean- Voided MidstreamPerformed By: #### UA #### [place] [address] USALeukocyte esterase Test strip Ql (U)NegativeNormalNegative The [facility] Physician GroupComment on above:Order Comment: Name Collection Type:: Clean-Voided MidstreamPerformed By: #### UA #### [place] [address] USANitrite,UrineNegativeNormalNegativeThe [facility] Physician GroupComment on above:Order Comment: Name Collection Type:: Clean-Voided MidstreamPerformed By: #### UA #### [place] [address] USAOccult Blood,UrineNegativeNormalNegativeThe [facility] Physician GroupComment on above:Order Comment: Name Collection Type:: Clean- Voided MidstreamResult Comment: PERFORMED BY: [place] [id number] PATHOLOGIST HIP HOP ARTIST MARE CARLOS M.D.Performed By: #### UA #### [place] [address] USApH (U)7.0 [pH]Normal5.0-9.0The [facility] Comment on above:Order Comment: Name Collection Type:: Clean-Voided Midstream Performed By: #### UA #### [place] [address] USAProtein,UrineNegativeNormalNegativeThe [facility] Physician GroupComment on above:Order Comment: Name Collection Type:: Clean-Voided MidstreamPerformed By: #### UA #### [place] [address] USASpecificy [place],Urine1.569Zkpcdt2.001-1.030The [facility] Physician GroupComment on above:Order Comment: Name Collection Type:: Clean- Voided MidstreamPerformed By: #### UA #### [place] [address] USAUrobilinogen,UrineNormalNormalNormalThe [facility] Physician GroupComment on above:Order Comment: Name Collection Type:: Clean- Voided MidstreamPerformed By: #### UA #### [place] [address] USAXR chest 2V*on 61-85-4988ZS chest 2V*[facility] Main [place] [address] [place] [address] XRay Report Signed Patient: Ramon Mariee MR#: [id number] : 1945 Acct:[id number] Age/Sex: 79 / M ADM Date: 05/02/25 [...] ABNORMALITY. Impression dictated by: Carlos Chen Jr., D.O. 05/02/2025 1:03 PM Dictation Location: [place] [address] Transcribed By: [facility] 05/02/25 1303 Dictated By: Carlos Chen Jr, DO 05/02/25 1303 Signed By: 05/02/25 1303[facility] Physician GroupNo Panel Informationon 27-03-0755Tormrtb obtained: written (The rationale for Mohs as well as the risks, benefits, and alternatives. 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 MohsAIQ Surgical site (if tumor spans multiple areas, please select predominant area): mu-ism Surgery side: right Surgical site (from skin exam): Right mu-ism Pre-operative length (cm): 1.8 Pre-operative width (cm): [...] antibiotics given on the day of surgery?: NoNOMS HealthcareNOMS Healthcare Consultation/Specialist Noteon 09-89-5369Kgzuxlhfufck/Specialist Note 170...[id number]#1.00OTGTGenesis Hospital Outside Recordson 22-58-7178Gviaqie Records 170..[id number]#1.00OTGTIFFNoKettering Health Behavioral Medical Center Panel Informationon 72-77-6805Gchw of biopsy: tangential Informed consent: discussed and [...] Photo taken Amount of lidocaine used: 1.0 [facility] Medical CenterArterial blood standard base excess determination by calculationOrdered By: Sunny Vasquez on 75-82-3521Bjdl excess standard Calc (BldA) [Moles/Vol]Arterial blood standard base excess determination by hjodqanstrfRyx-0-8MouyhofchOhioHealth O'Bleness Hospital Basic Metabolic Panelon 51-21-2625Ymvfr gap [Moles/Vol]12.3 mmol/LNormal6.0-15.0 The [facility] Physician GroupComment on above:Performed By: #### GABRIELLE, K ####[place] [address] [place] [address] USACalcium [Mass/Vol]8.9 mg/dLNormal8.6-10.3The [facility] Physician GroupComment on above: Performed By: #### GABRIELLE K ####[facility] [place] [address] USAChloride [Moles/Vol]110 mmol/SMcpv71-046Srk [facility] Physician GroupComment on above:Performed By: #### GABRIELLE, K ####[facility] [place] [address] USACO2 [Moles/Vol]22.6 mmol/GFjwgou89.0-31.0The [facility] Physician GroupComment on above:Performed By: #### BMP, K ####[place] [address] USACreatinine [Mass/Vol]1.66 mg/dLHigh0.70-1.30The [facility] Physician GroupComment on above:Performed By: #### BMP, K ####[place] [address] [place] Creatinine Clr Calc Wxttahzs41.41NormBaptist Health Bethesda Hospital East Physician GroupComment on above:Result Comment: PERFORMED BY: [facility] [address] [facility] [place] [id number] PATHOLOGIST HIP HOP ARTIST GEOFFREY VARGAS M.D.Performed By: #### GABRIELLE, K ####[place] [address] USAEstimated GFR41.675 mL/Min NormalThe [facility] Physician GroupComment on above:Performed By: #### GABRIELLE, K ####[place] [address] USAGlucose [Mass/Vol]183 mg/hABmhy71-545Crf [facility] Physician GroupComment on above: Result Comment: Random Glucose Reference Range is dependent on time and content of last meal. Glucose of more than 200 mg/dL in a nonstressed, ambulatory subject supports the diagnosis of Diabetes Mellitus. ADA recommended reference rangePerformed By: #### BMP, K ####[place] [address] USASodium [Moles/Vol]139 mmol/L Deylme597-112Fwc [facility] Physician GroupComment on above:Performed By: #### BMP, K ####[place] [address] [place] Urea nitrogen [Mass/Vol]54 mg/dLHigh7-25The [facility] Physician GroupComment on above:Performed By: #### BMP, K ####[place] [address] USABlood carbon dioxide, total measurement by calculation (moles/volume)Ordered By: Sunny Vasquez on 67-20-3713QC4 Calc (Bld) [Moles/Vol]Blood carbon dioxide, total measurement by calculation (moles/volume)23-29[facility] HospitalCalcium [Mass/volume] in Serum or PlasmaOrdered By: LILI VALADEZ on 74-46-8519Jhbvtdt [Mass/Vol]Calcium [Mass/volume] in Serum or Plasma8.6-10.3FOhioHealth O'Bleness HospitalCarbon dioxide WBOrdered By: Sunny Vasquez on 30-37-9886Unzkcpcl percentageBasophil benibxuovgFwd08-138BtpnpuzfcMercy Health Perrysburg HospitalCarbon dioxide, total [Moles/volume] in Serum or PlasmaOrdered By: LILI VALADEZ on 73-79-2317KQ4 [Moles/Vol]Carbon dioxide, total [Moles/volume] in Serum or Mmtwkw46.0-31.0 [facility] HospitalChloride [Moles/volume] in Serum or Plasma Ordered By: LILI VALADEZ on 04-19-2934Trbjbdai [Moles/Vol]Chloride [Moles/volume] in Serum or FvjqfoHixu29-708EnitjipiyMercy Health Perrysburg Hospital Creatinine [Mass/volume] in Serum or PlasmaOrdered By: LILI VALADEZ on 68-83-8113Qbhzadijad [Mass/Vol]Creatinine [Mass/volume] in Serum or PlasmaHigh 0.70-1.30[facility] Perrysburg HospitalECG 12 lead ECGon 02-73-5537QXE 12 lead ECGST. MARY'S [place] [address] Electrocardiograph Report Signed Patient: Ramon Mareie MR#: [id number] : 1945 Acct:[id number] Age/Sex: 79 / M ADM Date: 01/03/25 Loc: [place] Room: Type: [facility] Attending Dr: Sunny Vasquez DO Ordering Provider: [...] change was found Confirmed by ROMAINE WU [facility], DARLENE ([id number]) on 01/03/2025 11:53:16 AM Referred By: Electronically Signed By: DARLENE GAVIN MD [facility] Transcribed By: MUS Signed By Darlene Gavin MD, [facility] 01/03/25 1153Swift [facility] Benson Health ServicesGlucose Glucometer (dC) [Mass/Vol]Ordered By: Sunny Vasquez on 59-52-4502Zijcqgu [Mass/Vol]Capillary blood glucose measurement by glucometer (mass/volume)Nztd95-986AiisxchhsMercy Health Perrysburg HospitalGlucose [Mass/Vol]Capillary blood glucose measurement by glucometer (mass/volume)[facility] HospitalComment on above:Random Glucose Reference Range is dependent on time and content of last meal. Glucose of more than 200 mg/dL in a nonstressed, ambulatory subject supports the diagnosis of Diabetes Mellitus.Glucose Poct Glucometerson 64-72-7891Ulcdwfe5 Glu2: Cleaned MeterNoSouthwest General Health CenterComment on above:Result Comment: PERFORMED BY: [facility] [address] [place] [address] PATHOLOGIST HIP HOP ARTIST GEOFFREY VARGAS M.D.Performed By: #### GLULS #### Point of Care testing ,Glucose [Mass/Vol]178 mg/dLSwift County Benson Health ServicesComment on above: Result Comment: Random Glucose Reference Range is dependent on time and content of last meal. Glucose of more than 200 mg/dL in a nonstressed, ambulatory subject supports the diagnosis of Diabetes Mellitus.Performed By: #### GLULS #### Point of Care testing ,Glucose [Mass/volume] in Serum or PlasmaOrdered By: LILI VALADEZ on 01-03-2025 Glucose [Mass/Vol]Glucose [Mass/volume] in Serum or LvpcklWxqv77-369ClfmgqbalMercy Health Perrysburg HospitalComment on above:ADA recommended reference rangeRandom Glucose Reference Range is dependent on time and content of last meal. Glucose of more than 200 mg/dL in a nonstressed, ambulatory subject supports the diagnosisof Diabetes Mellitus.Hemoglobin Calc (Bld) [Mass/Vol]Ordered By: Sunny Vasquez on 31-22-2774Ggrrrpxldv (Bld) [Mass/Vol]Blood hemoglobin measurement by calculation (mass/volume)Low12.0-17.0Mer[facility] Perrysburg HospitalISTAT ABGon 52-41-7660KJ3 [Moles/Vol]23 mmol/WKlbzrs69-69Rbp [facility] Physician GroupComment on above:Performed By: #### ISABG ####[place] [address] USAGlucose [Mass/Vol]174 mg/dL Pnhs53-378Gsw [facility] Physician GroupComment on above:Result Comment: PERFORMED BY: [facility] [address] [facility] CENTERJonyGlendy [place] [id number] PATHOLOGIST HIP HOP ARTIST GEOFFREY VARGAS M.D.Performed By: #### ISABG ####[place] [address] USAHCO3 (Bld) [Moles/Vol]22.2 mmol/KBgmwwg19.0-28.0The [facility] Physician GroupComment on above:Performed By: #### ISABG ####[address] [address] USAHemoglobin (Bld) [Mass/Vol]11.6 g/dLLow12.0-17.0The [facility] Physician GroupComment on above:Performed By: #### ISABG ####[place] [id number] USAISTAT Base Excess-3 mmol/LLow-2 TO 3 [facility] Physician GroupComment on above:Performed By: #### ISABG ####[place] [id number] [place] Ionized Calcium1.24 mol/LNormal1.12-1.32The [facility] Physician GroupComment on above:Performed By: #### ISABG ####[address] [address] [place]IST[place] QZY479.9 mm[Hg]Nhpchq16-48Utk [facility] Physician [facility]S HospitalComment on above:Performed By: #### ISABG ####[address] [address] USAISTAT Ph7.901Jgunbt9.31-7.45 [facility] Physician [facility]S HospitalComment on above:Performed By: #### ISABG ####[address] [address] USAISTAT PO249 mm[Hg]Nzt89-064Fyu [facility] Physician [facility]S HospitalComment on above:Performed By: #### ISABG ####[address] [address] USAOxygen saturation in Blood83 %Rpe45-19Elq [facility] Comment on above:Result Comment: Reference ranges reflect baseline specimens onlyPerformed By: #### ISABG ####[address] [address] USAPotassium [Moles/Vol]6.2 mmol/LOff scale high3.5-4.9 [facility] Physician [facility]S HospitalComment on above:Performed By: #### ISABG ####[address] [address] USASodium [Moles/Vol]139 mmol/LKfhgwn857-590Mlt [facility] Physician [facility] HospitalComment on above: Performed By: #### ISABG ####[address] [address] USAISTAT ABGOrdered By: Sunny Vasquez on 01-03-2025 Hematocrit (Bld) [Volume fraction]34.0 %Low38.0-51.0[facility] Perrysburg HospitalComment on above:Performed By: #### ISABG ####[address] [address] USANo Panel InformationOrdered By: LILI VALADEZ on 89-76-4919Ynjlyiwbz GFR (CKD-EPI)41.675 mL/MinMercy Health Perrysburg HospitalPharmacy Creatinine Clearance (Chem37.41[facility] HospitalNo Panel InformationOrdered By: Sunny Vasquez on 44-31-0570Sebdhzi Glucose CommentGlu2: cleaned meterMercy Health Perrysburg HospitalPotassiumon 63-73-7193Akvuyyiji [Moles/Vol]5.9 mmol/LHigh3.5-5.1The [facility] Physician GroupComment on above:Result Comment: PERFORMED BY: [facility] [address] [place] [id number] PATHOLOGIST HIP HOP ARTIST GEOFFREY VARGAS M.D.Performed By: #### GABRIELLE, K ####[facility] [place] [address] USAPotassium (Bld) [Moles/Vol] Ordered By: Sunny Vasquez on 56-83-2242Bftcpaagm [Moles/Vol]Whole blood potassium measurementCritically high3.5-4.9[facility] Potassium [Moles/volume] in Serum or PlasmaOrdered By: LILI VALADEZ on 44-66-8347Svehjdljz [Moles/Vol]Potassium [Moles/volume] in Serum or PlasmaHigh 3.5-5.1FClinton Memorial Hospitalerum or plasma anion gap determination Ordered By: LILI VALADEZ on 97-75-0686Cwkpo gap [Moles/Vol]Serum or plasma anion gap determination6.0-15.0[facility] Medical Centerodium (Bld) [Moles/Vol]Ordered By: Sunny Vasquez on 63-20-5937Zfobtn [Moles/Vol]Whole blood sodium fzqwgehhyhg155-895WmhfxnubhCommunity Regional Medical Centerodium [Moles/volume] in Serum or PlasmaOrdered By: LILI VALADEZ on 58-44-7685Ibvdvg [Moles/Vol]Sodium [Moles/volume] in Serum or Aucnwy239-889EokukirggMercy Health Perrysburg HospitalUrea nitrogen [Mass/volume] in Serum or PlasmaOrdered By: LILI VALADEZ on 19-61-8033Tfig nitrogen [Mass/Vol]Urea nitrogen [Mass/volume] in Serum or PlasmaHigh7-25[facility] HospitalWhole blood bicarbonate measurementOrdered By: Sunny Vasquez on 89-89-6392LFJ2 (Bld) [Moles/Vol]Whole blood bicarbonate ehpylrahpbo21.0-28.0[facility] HospitalWhole blood ionized calcium measurement (moles/volume)Ordered By: Sunny Vasquez on 14-72-8635Sllepwh.ionized (Bld) [Moles/Vol]Whole blood ionized calcium measurement (moles/volume)1.12-1.32[facility] HospitalWhole blood oxygen saturation measurementOrdered By: Sunny Vasquez on 88-24-5007Qeshhs saturation in BloodWhole blood oxygen saturation bdtxzdriyhgOpk44-08PeihojchcMercy Health Perrysburg HospitalComment on above:Reference ranges reflect baseline specimens onlyWhole blood pHOrdered By: Sunny Vasquez on 63-66-0252sQ (Bld) Whole blood pH7.31-7.45[facility] HospitalBasic Metabolic Panelon 27-53-2975Xoson gap [Moles/Vol]9.9 mmol/LNormal6.0-15.0The [facility] Physician GroupComment on above:Performed By: #### BMP, CBC #### [place] [address] USACalcium [Mass/Vol]8.9 mg/dLNormal8.6-10.3The [facility] Physician GroupComment on above:Result Comment: PERFORMED BY: [place] [id number] PATHOLOGIST HIP HOP ARTIST GEOFFREY VRAGAS M.D.Performed By: #### BMP, CBC #### [place] [address] USAChloride [Moles/Vol]107 mmol/TWvvzwk95-728Ght [facility] Physician GroupComment on above:Performed By: #### BMP, CBC #### [place] [address] USACO2 [Moles/Vol]26.4 mmol/PIwhnlz96.0-31.0The [facility] Physician GroupComment on above:Performed By: #### BMP, CBC #### [place] [address] USACreatinine [Mass/Vol]1.39 mg/dLHigh0.70-1.30The [facility] Physician GroupComment on above:Performed By: #### BMP, CBC #### [facility] [address] [place] [address] USAEstimated GFR51.568 mL/MinNormalThe [facility] Hospital Physician GroupComment on above:Performed By: #### BMP, CBC #### [facility] [address] [place] [address] USAGlucose [Mass/Vol]214 mg/kFPswn18-725Ekk [facility] Physician GroupComment on above:Result Comment: Random Glucose Reference Range is dependent on time and content of last meal. Glucose of more than 200 mg/dL in a nonstressed, ambulatory subject supports the diagnosis of Diabetes Mellitus. ADA recommended reference rangePerformed By: #### BMP, CBC #### [facility] [address] [place] [address] USAPotassium [Moles/Vol]5.3 mmol/LHigh3.5-5.1The [facility] Physician GroupComment on above:Performed By: #### BMP, CBC #### [facility] [address] [place] [address] USASodium [Moles/Vol]138 mmol/DHjjzdx593-427Eyj [facility] Physician GroupComment on above:Performed By: #### BMP, CBC #### [facility] [address] [place] [address] USAUrea nitrogen [Mass/Vol]49 mg/dLHigh7-25The [facility] Physician GroupComment on above:Performed By: #### BMP, CBC #### [facility] [address] [place] [address] USABasophils Auto (Bld) [#/Vol]Ordered By: Sunny Vasquez on 75-37-7872Tzhulrjjt (Bld) [#/Vol]Automated basophil count0.0-0.2FOhioHealth O'Bleness HospitalBasophils/100 WBC Auto (Bld)Ordered By: Sunny Vasquez on 15-69-7554Kmbqgdnrf/100 WBC (Bld)Automated basophil %.[facility] HospitalCalcium [Mass/volume] in Serum or PlasmaOrdered By: Sunny Vasquez on 56-67-2837Zmzgzeo [Mass/Vol]Calcium [Mass/volume] in Serum or Plasma 8.6-10.3FOhioHealth O'Bleness HospitalCarbon dioxide, total [Moles/volume] in Serum or PlasmaOrdered By: Sunny Vasquez on 27-51-8354QX4 [Moles/Vol]Carbon dioxide, total [Moles/volume] in Serum or Akwamk19.0-31.0[facility] HospitalChloride [Moles/volume] in Serum or PlasmaOrdered By: Sunny Vasquez on 71-27-9759Krqbxkwm [Moles/Vol]Chloride [Moles/volume] in Serum or Btypwi73-530GchyclsowMercy Health Perrysburg HospitalComplete Blood Count Auto Diffon 98-40-4191Tkcfzhfxm (Bld) [#/Vol]0.0 10*3/uLNormal0.0-0.2The [facility] Physician GroupComment on above:Result Comment: PERFORMED BY: [place] [id number] PATHOLOGIST HIP HOP ARTIST GEOFFREY VARGAS M.D.Performed By: #### BMP, CBC #### [facility] [address] [place] [address] USABasophils/100 WBC (Bld)0.4 %Normal.The [facility] Physician GroupComment on above:Performed By: #### BMP, CBC #### [facility] [address] [place] [address] USAEosinophils (Bld) [#/Vol]0.2 10*3/uLNormal0.0-0.45The [facility] Physician GroupComment on above:Performed By: #### BMP, CBC #### [place] [address] USAEosinophils/100 WBC (Bld)2.9 %Normal.The [facility] Physician GroupComment on above:Performed By: #### BMP, CBC #### [place] [address] USAErythrocyte distribution width (RBC) [Ratio]15.3 %High 12.0-14.8The [facility] Physician GroupComment on above:Performed By: #### BMP, CBC #### [facility] [address] [place] [address] USAHematocrit (Bld) [Volume fraction]36.2 %Low38.8-50.0The [facility] Physician GroupComment on above:Performed By: #### BMP, CBC #### [place] [address] USAHemoglobin (Bld) [Mass/Vol]12.0 g/dLLow13.0-17.0The [facility] Physician GroupComment on above:Performed By: #### BMP, CBC #### [place] [address] USALymphocytes (Bld) [#/Vol]1.6 10*3/uLNormal1.00-4.8The [facility] Physician GroupComment on above:Performed By: #### BMP, CBC #### [place] [address] USALymphocytes/100 WBC (Bld)18.9 %Normal.The [facility] Physician GroupComment on above:Performed By: #### BMP, CBC #### [place] [address] USAMCH (RBC) [Entitic mass]29.6 voQoeano73.5-35.2The [facility] Physician GroupComment on above:Performed By: #### BMP, CBC #### [place] [address] USAMCV (RBC) [Entitic vol]89.1 pEYtwzqd26.5-101The [facility] Physician GroupComment on above:Performed By: #### BMP, CBC #### [place] [address] USAMean Corpuscular HGB Conc33.2 g/wPJbnfhq53.5-35.6The [facility] Physician GroupComment on above:Performed By: #### BMP, CBC #### [place] [address] USAMonocytes (Bld) [#/Vol]0.5 10*3/uLNormal0.0-0.8The [facility] Physician GroupComment on above:Performed By: #### BMP, CBC #### [facility] [address] [place] [address] USAMonocytes/100 WBC (Bld)6.1 %Normal.The [facility] Physician GroupComment on above:Performed By: #### BMP, CBC #### [facility] [address] [place] [address] USANeutrophils (Bld) [#/Vol]6.0 10*3/uLNormal1.8-7.7The [facility] Physician GroupComment on above:Performed By: #### BMP, CBC #### [facility] [address] [place] [address] USANeutrophils/100 WBC (Bld)71.7 %Normal.The [facility] Physician GroupComment on above:Performed By: #### BMP, CBC #### [facility] [address] [place] [address] USANRBC%0.0 /100{WBC}Normal0-0.5[facility] Comment on above:Performed By: #### BMP, CBC #### [facility] [address] [place] [address] USAPlatelet mean volume (Bld) [Entitic vol]8.7 fLNormal 6.6-10.1The [facility] Physician GroupComment on above:Performed By: #### BMP, CBC #### [facility] [address] [place] [address] USAPlatelets (Bld) [#/Vol]211 10*3/mEObfmxw410-272Jyh [facility] Physician GroupComment on above:Performed By: #### BMP, CBC #### [facility] [address] [place] [address] USARBC (Bld) [#/Vol]4.06 10*6/uLNormal3.90-5.60The [facility] Physician GroupComment on above:Performed By: #### BMP, CBC #### [facility] [address] [place] [address] USAWBC (Bld) [#/Vol]8.4 10*3/uLNormal4.1-10.5The [facility] Physician GroupComment on above:Performed By: #### BMP, CBC #### [place] [address] USACreatinine [Mass/volume] in Serum or PlasmaOrdered By: Sunny Vasquez on 49-41-2242Ibdwqeldtz [Mass/Vol]Creatinine [Mass/volume] in Serum or PlasmaHigh0.70-1.30[facility] HospitalECG 12 lead ECGon 67-39-1188SSK 12 lead ECGST. [facility] Main [place] [address] [place] [address] Electrocardiograph Report Signed Patient: Ramon Mariee MR#: [id number] : 1945 Acct:[id number] Age/Sex: 79 / M ADM Date: 12/20/24 Loc: Room: Type: [facility] Attending Dr: Sunny Vasquez DO Ordering [...] block Abnormal ECG Confirmed by Tom Conde ([id number]) on 12/20/2024 4:19:47 PM Referred By: Electronically Signed By: Tom Conde Transcribed By: MUS Signed By Tom Conde MD 12/20/24 1619NoUNC [facility] Physician GroupEosinophils Auto (Bld) [#/Vol] Ordered By: Sunny Vasquez on 28-14-8070Yscwfgvdqyv (Bld) [#/Vol]Automated eosinophil count0.0-0.45[facility] HospitalEosinophils/100 WBC Auto (Bld)Ordered By: Sunny Vasquez on 91-91-0421Vankdhwefqu/100 WBC (Bld) Automated eosinophil %.[facility] HospitalErythrocyte distribution width Auto (RBC) [Ratio]Ordered By: Sunny Vasquez on 60-84-1855Qmdefpylufm distribution width (RBC) [Ratio]Erythrocyte distribution width [Ratio] by Automated lznrmRnuv11.0-14.8[facility] HospitalGlucose [Mass/volume] in Serum or PlasmaOrdered By: Sunny Vasquez on 48-44-4385Cvgkxnx [Mass/Vol]Glucose [Mass/volume] in Serum or XgjjcmSszv39-751YdxjtcsjkMercy Health Perrysburg HospitalComment on above:ADA recommended reference rangeRandom Glucose Reference Range is dependent on time and content of last meal. Glucose of more than 200 mg/dL in a nonstressed, ambulatory subject supports the diagnosisof Diabetes Mellitus.Hematocrit Auto (Bld) [Volume fraction]Ordered By: Sunny Vasquez on 98-35-8680Gqgdicyjyq (Bld) [Volume fraction]Hematocrit [Volume Fraction] of Blood by Automated odqobAhl37.8-50.0[facility] HospitalHemoglobin [Mass/volume] in BloodOrdered By: Sunny Vasquez on 12-20-2024 Hemoglobin (Bld) [Mass/Vol]Hemoglobin [Mass/volume] in InyhgJad04.0-17.0 [facility] HospitalLeukocytes [#/volume] corrected for nucleated erythrocytes in Blood by Automated counOrdered By: Sunny Vasquez on 12-20-2024 WBC corrected for nucl RBC Auto (Bld) [#/Vol]Leukocytes [#/volume] corrected for nucleated erythrocytes in Blood by Automated coun4.1-10.5FOhioHealth O'Bleness HospitalLymphocytes Auto (Bld) [#/Vol]Ordered By: Sunny Vasquez on 19-66-5445Gsgirwvkbia (Bld) [#/Vol]Lymphocytes [#/volume] in Blood by Automated count1.00-4.8[facility] HospitalLymphocytes/100 WBC Auto (Bld) Ordered By: Sunny Vasquez on 74-30-6402Uovcwzoayan/100 WBC (Bld) Lymphocytes/100 leukocytes in Blood by Automated count.[facility] HospitalMCH Auto (RBC) [Entitic mass]Ordered By: Sunny Vasquez on 33-99-0168MBQ (RBC) [Entitic mass]MCH [Entitic mass] by Automated count27.5-35.2 [facility] HospitalMCHC Auto (RBC) [Mass/Vol]Ordered By: Sunny Vasquez on 29-63-8674VWPG (RBC) [Mass/Vol]MCHC [Mass/volume] by Automated count 32.5-35.6FOhioHealth O'Bleness HospitalMCV Auto (RBC) [Entitic vol]Ordered By: Sunny Vasquez on 00-97-9989CXC (RBC) [Entitic vol]MCV [Entitic volume] by Automated count83.5-101Mer[facility] HospitalMonocytes Auto (Bld) [#/Vol]Ordered By: Sunny Vasquez on 25-88-7303Xwvlhknwf (Bld) [#/Vol]Automated blood monocyte count0.0-0.8[facility] HospitalMonocytes/100 WBC Auto (Bld)Ordered By: Sunny Vasquez on 30-43-4859Epipzzpfh/100 WBC (Bld) Automated monocyte %.[facility] HospitalNeutrophils Auto (Bld) [#/Vol]Ordered By: Sunny Vasquez on 15-75-2249Hooynesgllt (Bld) [#/Vol] Neutrophils [#/volume] in Blood by Automated count1.8-7.7FOhioHealth O'Bleness HospitalNeutrophils/100 WBC Auto (Bld)Ordered By: Sunny Vasquez on 00-55-4140Lzyocavaoqg/100 WBC (Bld)Automated neutrophil %.[facility] HospitalNo Panel InformationOrdered By: Sunny Vasquez on 12-20-2024 Estimated GFR (CKD-EPI)51.568 mL/MinMercy Health Perrysburg HospitalPharmacy Creatinine Clearance (ChemN/AFOhioHealth O'Bleness HospitalNucleated erythrocytes [Presence] in Blood by Automated countOrdered By: Sunny Vasquez on 35-13-1221Lxgnocenv RBC Auto Ql (Bld)Nucleated erythrocytes [Presence] in Blood by Automated count0-0.5FOhioHealth O'Bleness HospitalPlatelet mean volume Auto (Bld) [Entitic vol]Ordered By: Sunny Vasquez on 87-83-6240Zvifnejv mean volume (Bld) [Entitic vol]Platelet mean volume [Entitic volume] in Blood by Automated count6.6-10.1FOhioHealth O'Bleness HospitalPlatelets Auto (Bld) [#/Vol]Ordered By: Sunny Vasquez on 01-94-5605Wcrzmladd (Bld) [#/Vol]Platelets [#/volume] in Blood by Automated vurvh816-704IhzadtaaqMercy Health Perrysburg Hospital Potassium [Moles/volume] in Serum or PlasmaOrdered By: Sunny Vasquez on 13-05-7335Wiukpbaxt [Moles/Vol]Potassium [Moles/volume] in Serum or PlasmaHigh 3.5-5.1FOhioHealth O'Bleness HospitalRBC Auto (Bld) [#/Vol]Ordered By: Sunny Vasquez on 46-25-2210FJJ (Bld) [#/Vol]Erythrocytes [#/volume] in Blood by Automated count3.90-5.60[facility] Regional Medical Centererum or plasma anion gap determinationOrdered By: Sunny Vasquez on 61-65-3930Rtxia gap [Moles/Vol]Serum or plasma anion gap determination6.0-15.0[facility] Regional Medical Centerodium [Moles/volume] in Serum or PlasmaOrdered By: Sunny Vasquez on 43-77-8294Tjqpev [Moles/Vol]Sodium [Moles/volume] in Serum or Plasma 136-145Mer[facility] HospitalUrea nitrogen [Mass/volume] in Serum or PlasmaOrdered By: Sunny Vasquez on 35-39-8820Qded nitrogen [Mass/Vol]Urea nitrogen [Mass/volume] in Serum or PlasmaHigh7-25[facility] HospitalWBC Auto (Bld) [#/Vol]Ordered By: Sunny Vasquez on 90-31-4605XGR (Bld) [#/Vol]Leukocytes [#/volume] in Blood by Automated count4.1-10.5FOhioHealth O'Bleness HospitalCT LUNG SCREENING LOW DOSEon 29-80-3688UD LUNG SCREENING LOW DOSEThis is a summary report. The complete report is available in the patient's medical record. If you cannot access the medical record, please contact the sending organization for a detailed fax or copy. HISTORY: Smoking history. TECHNIQUE: Spiral low dose CT acquisition of the chest from the thoracic inlet to the upper abdomenwithout contrast for lung screening. All CT scans [...] thoracic aorta atherosclerotic calcifications without aneurysm. Normal pulmonarysize artery. Stable heart size. Coronary calcifications and/or stents. No pericardial effusion. Esophagus unremarkable. Bones and soft tissues: No acute osseous findings. No destructive osseous lesions. Degenerative changes. DISH. Underlying decreased bone mineral density. Left-sided pacemaker, grossly unchanged. Upper abdomen: No acute abnormality in the imaged upper abdomen. IMPRESSION: Lung-RADS: LUNGRADS 2 - Benign Follow-Up Recommendation: LDCT 1 Year ELECTRONICALLY SIGNED BY: Roe Garcia MDNorayrayalNot [facility] echo transthoracicon 65-05-4761NQG echo transthoracicST. MARY'S [facility] Main [place] [address] [place] [address] Echocardiogram Signed Patient: Ramon Mariee MR#: [id number] : 1945 Acct:[id number] Age/Sex: 79 / M ADM Date: 10/04/24 Loc: Room: Type: [facility] Attending Dr: Tom Conde MD Ordering Provider: Tom Conde MD Date of Service: 10/04/24 [facility] echo transthoracic: R06.02 - Shortness of breath Copies to: MD Darlene Baca MD, [facility] Weight: 190 lb Performed By: BRENDA Batista BSA: 2.0 m2 BP: 152/73 mmHg HR: 54 Reason For Study: R06.02 - Shortness of breath History: NE, DM, former smoker, pacemaker, family history of [...] ml EF (HM)_phl: 53.0 % ED Current ()_phl: 60.0 % ESV (HM)_phl: 91.0 ml HR (HM)_phl: 61.0 BPMES Current ()_phl: 30.0 % LV Length ED ()_phl: 98.0 mmSV ()_phl: 103.0 mlED Default ()_phl: 60.0 % LV Length ES (HM (more content not included)...NormalThe [facility] Physician GroupComplete Blood Count Auto Diffon 51-44-8673Lkdbmokaq (Bld) [#/Vol]0.1 10*3/uLNormal0.0-0.2The [facility] Physician GroupComment on above:Result Comment: PERFORMED BY: [place] [id number] PATHOLOGIST HIP HOP ARTIST GEOFFREY VARGAS M.D.Performed By: #### CBC #### [facility] [address] [place] [address] USABasophils/100 WBC (Bld)0.7 %Normal.The [facility] Physician GroupComment on above:Performed By: #### CBC #### [place] [address] USAEosinophils (Bld) [#/Vol]0.3 10*3/uLNormal0.0-0.45[facility] Physician [facility]S HospitalComment on above:Performed By: #### CBC #### [address] [place] [address] USAEosinophils/100 WBC (Bld)3.7 %Normal.The [facility] Physician GroupComment on above:Performed By: #### CBC #### [place] [address] USAErythrocyte distribution width (RBC) [Ratio]14.3 %Normal 12.0-14.8The [facility] Physician GroupComment on above:Performed By: #### CBC #### [place] [address] USAHematocrit (Bld) [Volume fraction]36.8 %Low38.8-50.0The [facility] Physician GroupComment on above:Performed By: #### CBC #### [place] [address] USAHemoglobin (Bld) [Mass/Vol]12.1 g/dLLow13.0-17.0The [facility] Physician GroupComment on above:Performed By: #### CBC #### [place] [address] USALymphocytes (Bld) [#/Vol]2.5 10*3/uLNormal1.00-4.8The [facility] Physician GroupComment on above:Performed By: #### CBC #### [place] [address] USALymphocytes/100 WBC (Bld)26.8 %Normal.[facility] Physician GroupComment on above:Performed By: #### CBC #### [place] [address] USAMCH (RBC) [Entitic mass]29.1 seTerngt44.5-35.2The [facility] Physician GroupComment on above:Performed By: #### CBC #### [place] [address] USAMCV (RBC) [Entitic vol]88.7 aJGtkexz04.5-101The [facility] Physician GroupComment on above:Performed By: #### CBC #### [place] [address] USAMean Corpuscular HGB Conc32.9 g/rHYgcutm18.5-35.6The [facility] Physician GroupComment on above:Performed By: #### CBC #### [place] [address] USAMonocytes (Bld) [#/Vol]0.8 10*3/uLNormal0.0-0.8The [facility] Physician GroupComment on above:Performed By: #### CBC #### [facility] [address] [place] [address] USAMonocytes/100 WBC (Bld)8.2 %Normal.The [facility] Physician GroupComment on above:Performed By: #### CBC #### [place] [address] USANeutrophils (Bld) [#/Vol]5.7 10*3/uLNormal1.8-7.7The [facility] Physician GroupComment on above:Performed By: #### CBC #### [place] [address] USANeutrophils/100 WBC (Bld)60.6 %Normal.The [facility] Physician GroupComment on above:Performed By: #### CBC #### [place] [address] USANRBC%0.0 /100{WBC}Normal0-0.5[facility] Comment on above:Performed By: #### CBC #### [place] [address] USAPlatelet mean volume (Bld) [Entitic vol]8.1 fLNormal 6.6-10.1The [facility] Physician GroupComment on above:Performed By: #### CBC #### [place] [address] USAPlatelets (Bld) [#/Vol]248 10*3/bSXetbmu445-566Ikc [facility] Physician GroupComment on above:Performed By: #### CBC #### [place] [address] USARBC (Bld) [#/Vol]4.15 10*6/uLNormal3.90-5.60The [facility] Physician GroupComment on above:Performed By: #### CBC #### [facility] [address] [place] [address] USAWBC (Bld) [#/Vol]9.4 10*3/uLNormal4.1-10.5The [facility] Physician GroupComment on above:Performed By: #### CBC #### [facility] [address] [place] [address] USACBC W Auto Differential panel (Bld)on 74-61-8629Fbbqcygpi (Bld) [#/Vol]0.1 10*3/uLNOMS HealthcareBasophils/100 WBC (Bld)1 %Not Estab.NOMS HealthcareEosinophils (Bld) [#/Vol]0.5 10*3/uLHighNOMS HealthcareEosinophils/100 WBC (Bld)5 %Not Estab.NOMS HealthcareErythrocyte distribution width (RBC) [Ratio]13.0 %11.6 - 15.4 %NOMS HealthcareHematocrit (Bld) [Volume fraction]36.2 %Low37.5 - 51.0 %NOMS HealthcareHemoglobin (Bld) [Mass/Vol]11.2 g/dLLow13.0 - 17.7 g/dLNOMS HealthcareImmature granulocytes (Bld) [#/Vol]0.1 10*3/uLNOMS HealthcareImmature granulocytes/100 WBC (Bld)1 %Not Estab.[facility] Lymphocytes (Bld) [#/Vol]3.0 10*3/uLNOMS HealthcareLymphocytes/100 WBC (Bld)30 % Not Estab.NOMS HealthcareMCH (RBC) [Entitic mass]29.3 pg26.6 - 33.0 pgNOMS HealthcareMCHC (RBC) [Mass/Vol]30.9 g/dLLow31.5 - 35.7 g/dLNOMS HealthcareMCV (RBC) [Entitic vol]95 fL79 - 97 fLNOMS HealthcareMonocytes (Bld) [#/Vol]0.7 10*3/uLNOMS HealthcareMonocytes/100 WBC (Bld)7 %Not Estab.[facility] Healthcare Neutrophils (Bld) [#/Vol]5.6 10*3/uLNOTX HealthcareNeutrophils/100 WBC (Bld)56 % Not Estab.[facility] HealthcarePlatelets (Bld) [#/Vol]302 10*3/uLNOTX HealthcareRBC (Bld) [#/Vol]3.82 10*6/uLLowNOTX HealthcareWBC (Bld) [#/Vol]9.9 10*3/[place] [facility] HealthcareComprehensive metabolic panelon 63-52-8864Olydtsu [Mass/Vol]3.9 g/dL 3.8 - 4.8 g/dLNOTX HealthcareALP [Catalytic activity/Vol]172 U/LHighNOTX HealthcareALT [Catalytic activity/Vol]U/LNOMS HealthcareComment on above: Verified by repeat analysisAST [Catalytic activity/Vol]14 U/LNOMS Healthcare Bilirubin [Mass/Vol]0.2 mg/dL0.0 - 1.2 mg/dLNOTX HealthcareCalcium [Mass/Vol]9.5 mg/dL8.6 - 10.2 mg/dLNOTX HealthcareChloride [Moles/Vol]102 mmol/L96 - 106 mmol/LNOMS HealthcareCO2 [Moles/Vol]22 mmol/L20 - 29 mmol/LNOMS Healthcare Creatinine [Mass/Vol]1.63 mg/dLHigh0.76 - 1.27 mg/dLNOTX HealthcareGFR/1.73 sq M.predicted among non-blacks MDRD (S/P/Bld) [Vol rate/Area]43 mL/min/{1.73_m2} Low59 - PINF mL/min/1.73NOMS HealthcareGlobulin (S) [Mass/Vol]2.8 g/dL1.5 - 4.5 g/dLNOTX HealthcareGlucose [Mass/Vol]165 mg/xYUeaw67 - 99 mg/dLNOTX Healthcare Potassium [Moles/Vol]5.5 mmol/LHigh3.5 - 5.2 mmol/LNOMS HealthcareProtein [Mass/Vol]6.7 g/dL6.0 - 8.5 g/dLNOTX HealthcareSodium [Moles/Vol]137 mmol/L134 - 144 mmol/LNOMS HealthcareUrea nitrogen [Mass/Vol]43 mg/dLHigh8 - 27 mg/dLNOTX HealthcareUrea nitrogen/Creatinine [Mass ratio]26 mg/cnTlfx94 - 24NOTX HealthcareHemoglobin A1con 02-55-9356XiJ1u (Bld) [Mass fraction]7.6 %High4.8 - 5.6 %[facility] HealthcareComment on above:Prediabetes: 5.7 - 6.4 Diabetes: >6.4 Glycemic control for adults with diabetes: <7.0 Lipid 1996 panelon 64-11-8398Njrjndlissu [Mass/Vol]132 mg/dL100 - 199 mg/dLNOTX HealthcareCholesterol in HDL [Mass/Vol]43 mg/dL39 - PINF mg/dLNOTX Healthcare Cholesterol in LDL [Mass/Vol]63 mg/dL0 - 99 mg/dLNOTX HealthcareCholesterol in VLDL [Mass/Vol]26 mg/dL5 - 40 mg/dLNOTX HealthcareTriglyceride [Mass/Vol]149 mg/dL0 - 149 mg/dLNorth Kansas City HospitalMicroalbumin/Creatinine ratio panel (U)on 82-86-5749Glnbrnd DL <= 20 mg/L (U) [Mass/Vol]17.0 ug/mLNot Estab.[facility] HealthcareAlbumin/Creatinine (U) [Mass ratio]18NOTX HealthcareComment on above: Normal: 0 - 29 Moderately increased: 30 - 300 Severely increased: >300 Creatinine (U) [Mass/Vol]93.3 mg/dLNot Estab.[facility] HealthcareNo Panel Information on 19-48-3477Bmtlfdaqkzqfnv and review of laboratory resultsAbnormEncompass Health Rehabilitation Hospital of MechanicsburgPerformed at: - [address] [id number] Technical Sales Consultant: Nahun Pickering PhD, Phone: [phone] Health Specimen Status Reporton 23-79-7922Alrdxkqqkah Disk diffusion (KB) [[facility]]Comment [facility] HealthcareComment on above:Jennifer Veras LP Default Jennifer Veras LP Default A hand-written panel/profile was received from your office. In accordance with the [facility] Ambiguous Test Code Policy dated April 2003, we have completed your order by using the closest currently or formerly recognized AMA panel. We have assigned Lipid Panel, Test Code #103373 to this request. If this is not the testing you wished to receive on this specimen, please contact the [facility] Client Inquiry/Technical Services Department to clarify the test order. We appreciate your business. Glucose Glucometer (BldC) [Mass/Vol]Ordered By: Manda Lockwood on 19-06-8294Mvmfdts [Mass/Vol]165 mg/dLMercy Health Perrysburg HospitalComment on above:Random Glucose Reference Range is dependent on time and content of last meal. Glucose of more than 200 mg/dL in a nonstressed, ambulatory subject supports the diagnosis of Diabetes Mellitus.No Panel InformationOrdered By: Manda Lockwood on 73-26-0368Gjoarhf Glucose CommentGlu2: cleaned meterMercy Health Perrysburg HospitalPOINT OF CARE GLUCOSEon 95-40-7933Mcggaue [Mass/Vol]223 mg/dLCritically qmix12-988NimHenry County HospitalComment on above:Performed By: #### POCGLUC #### [facility] [address] [place] [address] Dr. Garcia [facility] GLUCOSEon 72-68-3055Hxcagqq [Mass/Vol]95 mg/dL Rrcqlj66-202AimHenry County HospitalComment on above:Performed By: #### POCGLUC #### [facility] [address] [place] [address] Dr. Radha CamarenaXR Chest 2 Views*on 00-09-2366VP Chest 2 Views*CLINICAL HISTORY: Cough. COMPARISON: None. TECHNIQUE: Chest radiographs, PA and lateral RESULT: Eventration right hemidiaphragm. No distinct focal consolidation. No pleural effusion. No pneumothorax. Enlarged cardiomediastinal silhouette. Aortic vascular calcifications. Granulomatous calcifications. No acute osseous findings. Degenerative changes. Bridging endplate osteophytes. Left transvenous pacemaker. IMPRESSION: No acute radiographic abnormality. Report reported and signed by Roe Garcia on 09/02/[address] joseph's hospital and medical centern Midstate Medical CenterHEMOGLOBIN A1Con 28-90-0388Bnozvce [Mass/Vol]160 mg/dL NormalHealthSouth - Rehabilitation Hospital of Toms RiverComment on above:Order Comment: PATIENT FASTING Performed By: #### HBA1E #### [facility] [address] [place], [place] [address]TiP2y (Bld) [Mass fraction]7.2 %AbnormalHealthSouth - Rehabilitation Hospital of Toms RiverComment on above:Order Comment: PATIENT FASTINGResult Comment: Diagnosis of Diabetes-Adults Non-Diabetic: < or = 5.6% Increased risk for developing diabetes: 5.7-6.4% Diagnostic of diabetes: > or = 6.5% . Monitoring of Diabetes Age (y) Therapeutic Goal (%) Adults: >18 <7.0 Pediatrics: 13-18 <7.5 7-12 <8.0 0- 6 7.5-8.5 [place] [employer]. Diabetes Care 33(S1), Oct 2009.Performed By: #### HBA1E #### [facility] [address] [place], [place] [address]NICNJ METABOLIC PANELon 45-04-9308Cowfj gap [Moles/Vol]13 mmol/AHjcaau86 - 20[facility] of Toms RiverComment on above:Order Comment: PATIENT FASTINGPerformed By: #### BMP #### [facility] [address] [place], [place] [address]Zjmoagu [Mass/Vol]9.9 mg/dLNormal8.6 - 10.6Health[facility] Hospital of Toms RiverComment on above:Order Comment: PATIENT FASTINGPerformed By: #### BMP #### [facility] [address] [place], [place] [address]Qpercsev [Moles/Vol]101 mmol/IPltevu68 - 107[facility] of Toms RiverComment on above:Order Comment: PATIENT FASTINGPerformed By: #### BMP #### [facility] [address] [place], [place] [address]Unimatphfa [Mass/Vol]1.21 mg/dLNormal0.50 - 1.30[facility] of Toms RiverComment on above:Order Comment: PATIENT FASTINGPerformed By: #### BMP #### [facility] [address] [place], [place] [address]QOB/1.73 sq M.predicted among non-blacks MDRD (S/P/Bld) [Vol rate/Area]62 mL/min/{1.73_m2}Normal>90[facility] of Toms RiverComment on above:Order Comment: PATIENT FASTINGResult Comment: CALCULATIONS OF ESTIMATED GFR ARE PERFORMED USING THE 2020 CKD-EPI STUDY REFIT EQUATION WITHOUT THE RACE VARIABLE FOR THE IDMS-TRACEABLE CREATININE METHODS. https://jasn.asnjournals.org/content/early/ASN.0058854562Kbivewiub By: #### BMP #### [facility] [address] [place], [place] [address]Uscfmya [Mass/Vol]88 mg/kALcdnqc33 - 99[facility] Toms RiverComment on above:Order Comment: PATIENT FASTINGPerformed By: #### BMP #### [facility] [address] [place], [place] [address]XWA4 (Bld) [Moles/Vol]30 mmol/DBqqdrk45 - 32[facility] of Toms RiverComment on above:Order Comment: PATIENT FASTINGPerformed By: #### BMP #### [facility] [address] [place], [place] [address]Myztorgob [Moles/Vol]4.6 mmol/LNormal3.5 - 5.3[facility] Toms RiverComment on above:Order Comment: PATIENT FASTINGPerformed By: #### BMP #### [facility] [address] [place], [place] [address]Qjbwtq [Moles/Vol]139 mmol/PXigqcx270 - 145[facility] Toms RiverComment on above:Order Comment: PATIENT FASTINGPerformed By: #### BMP #### [facility] [address] [place], [place] [address]Hpsp nitrogen [Mass/Vol]28 mg/dLHigh6 - 23[facility] Toms RiverComment on above:Order Comment: PATIENT FASTINGPerformed By: #### BMP #### [facility] [address] [place], [place] [address]Kbanp Pressure Cuff Sizeon 15-73-7238Bcac risk assessmenta) No falls within the last year-[facility] Work Phone: Tobacco use status CPHSb) NoMP-[facility] Work Phone: Blood Pressure Cuff SizeAdultMP-[facility] GroupAtl[facility] Institute Work Phone: Hemoglobin A1Con 69-48-3451Hnpeemo [Mass/Vol]160 mg/dL [facility] Work Phone: HbA1c (Bld) [Mass fraction]7.2 %[facility] Work Phone: Comment on above:Diagnosis of Diabetes-Adults Non- Diabetic: < or = 5.6% Increased risk for developing diabetes: 5.7-6.4% Diagnostic of diabetes: > or = 6.5%. Monitoring of Diabetes Age (y) Therapeutic Goal (%) Adults: >18 <7.0 Pediatrics: 13-18 <7.5 7-12 <8.0 0- 6 7.5-8.5 [place] [employer]. Diabetes Care 33(S1), Oct 2009.LIPID PANEL (CORONARY RISK 2)on 70-73-0046Dlqmqivyjgx [Mass/Vol]131 mg/dLNormal0 - 199[facility] of Toms RiverComment on above:Order Comment: PATIENT FASTINGResult Comment: . AGE DESIRABLE BORDERLINE HIGH HIGH [...] should be performed immediately prior to Metamizole dosing.Performed By: #### LIPID #### [facility] [address] [place], [place] [address]Czendiqiomo in HDL [Mass/Vol]37.8 mg/dLAbnoMiddle Park Medical Center - GranbyComment on above:Order Comment: PATIENT FASTINGResult Comment: . AGE VERY LOW LOW NORMAL HIGH 0-19 Y < 35 < 40 40-45 ---- 20-24 Y ---- < 40 >45 ---- >24 Y ---- < 40 40-60 >60 .Performed By: #### LIPID #### [facility] [address] [place], [place] [address]Eavsdmzqnnu in LDL [Mass/Vol]59 mg/dLNormal0 - 99[facility] of Toms RiverComment on above:Order Comment: PATIENT FASTINGResult Comment: . NEAR BORD AGE DESIRABLE OPTIMAL HIGH HIGH VERY HIGH 0-19 Y 0 - 109 --- 110-129 >/= 130 ---- 20-24 Y 0 - 119 --- 120-159 >/= 160 ---- >24 Y 0 - 99 100-129 130-159 160-189 >/=190 .Performed By: #### LIPID #### [facility] [address] [place], [place] [address]Iqfiozivsrd in VLDL [Mass/Vol]34 mg/dLNormal0 - 40[facility] Toms RiverComment on above:Order Comment: PATIENT FASTINGPerformed By: #### LIPID #### [facility] [address] [place], [place] [address]Ihxhlzfxjhc.total/Cholesterol in HDL [Mass ratio]3.5 {ratio} NormalHealthSouth - Rehabilitation Hospital of Toms RiverComment on above:Order Comment: PATIENT FASTING Result Comment: REF VALUES DESIRABLE < 3.4 HIGH RISK > 5.0Performed By: #### LIPID #### [facility] [address] [place], [place] [address]Vensodkujjup [Mass/Vol]169 mg/dLHigh0 - 149[facility] Toms RiverComment on above:Order Comment: PATIENT FASTINGResult Comment: . AGE DESIRABLE BORDERLINE HIGH HIGH [...] should be performed immediately prior to Metamizole dosing.Performed By: #### LIPID #### [facility] [address] [place], [place] [address]Djrozlerac - Chemistry and Chemistry - challengeon 05-27-2022 Anion gap [Moles/Vol]13 mmol/L10 - 20[facility] Work Phone: Calcium [Mass/Vol]9.9 mg/dL8.6 - 10.6[facility] Work Phone: Chloride [Moles/Vol]101 mmol/L98 - 107[facility] Work Phone: HM7 [Moles/Vol]30 mmol/L21 - 32[facility] Work Phone: Creatinine [Mass/Vol]1.21 mg/dLSee BelowMemorial Health System Work Phone: Comment on above:Reference Range: 0.50 - 1.30Glucose [Mass/Vol]88 mg/dL74 - 99[facility] Work Phone: Potassium [Moles/Vol]4.6 mmol/L3.5 - 5.3[facility] Work Phone: Sodium [Moles/Vol]139 mmol/L136 - 145[facility] Work Phone: Urea nitrogen [Mass/Vol]28 mg/dLabove high threshold6 - 23[facility] Work Phone: Lipid Panelon 38-28-5946Mqozoxujvxx [Mass/Vol]131 mg/dL0 - 199[facility] Work Phone: [phone] on above:. AGE DESIRABLE BORDERLINE HIGH HIGH 0-19 Y [...] should be performed immediately prior to Metamizole dosing.Cholesterol in HDL [Mass/Vol]37.8 mg/dLAbMemorial Hermann Southwest Hospital Work Phone: Comment on above:. AGE VERY LOW LOW NORMAL HIGH 0-19 Y < 35 < 40 40-45 ---- 20-24 Y ---- < 40 >45 ---- >24 Y ---- < 40 40-60 >60. Cholesterol in LDL [Mass/Vol]59 mg/dL0 - 99[facility] Work Phone: Comment on above:. NEAR BORD AGE DESIRABLE OPTIMAL HIGH HIGH VERY HIGH 0-19 Y 0 - 109 --- 110-129 >/= 130 ---- 20-24 Y 0 - 119 --- 120-159 >/= 160 ---- >24 Y 0 - 99 100-129 130-159 160-189 >/=190. Cholesterol.total/Cholesterol in HDL [Mass ratio]3.5 {ratio}[facility] Work Phone: Comment on above:REF VALUESDESIRABLE < 3.4HIGH RISK > 5.0Triglyceride [Mass/Vol]169 mg/dLabove high threshold0 - 149[facility] Work Phone: Comydwq on above:. AGE DESIRABLE BORDERLINE HIGH HIGH VERY HIGH [...] should be performed immediately prior to Metamizole dosing.Lipid Panel34 mg/dL0 - 40 [facility] Work Phone: No Panel Informationon {mL/min/1.73m2}>90 [facility] Work Phone: comment on above:CALCULATIONS OF ESTIMATED GFR ARE PERFORMED USING THE 2020 CKD-EPI STUDY REFIT EQUATION WITHOUT THERACE VARIABLE FOR THE IDMS-TRACEABLE CREATININE METHODS.https://jasn.asnjournals.org/content//ASN.2653382992 Office Visit (Internal Medicine)on 56-26-4686Xjmdwj-up visitDiagnoses/Problems Assessed Hypertension (401.9) (I10) Diabetes mellitus due [...] mellitus; GAVIN = N; Verified Transmission to [facility]; Last Updated By: Pratima Callahan; 05/27/2022 10:05:07 AM Continue: FreeStyle InsuLinx System w/Device Kit; USE DIRECTED Rx By: Poli Mercado; Dispense: 0 Days ; #:1 Kit; Refill: 0;For: Diabetes mellitus; GAVIN = N; Verified Transmission to [facility] [address]; Last Updated By: Pratima Callahan; 05/27/2022 10:05:07 AM Continue: FreeStyle InsuLinx Test In Vitro Strip; TEST ONCE DAILY *E11.9* Rx By: Poli Mercado; Dispense: 90 Days ; #:100 Strip; Refill: 3;For: Diabetes mellitus; GAVIN = N; Verified Transmission to [facility]; Last Updated By: Pratima Callahan; 05/27/2022 10:05:07 AM Continue: Glimepiride 1 MG Oral Tablet; TAKE 1 TABLET BY MOUTH EVERY DAY Rx By: Poli Mercado; Dispense: 90 Days ; #:90 Tablet; Refill: 2;For: Diabetes mellitus; GAVIN = N; Verified Transmission to [facility]6177; Last Updated By: Pratima Callahan; 05/27/2022 10:05:07 AM Continue: Lantus SoloStar 100 UNIT/ML Subcutaneous Solution Pen-injector; INJECT 20 UNITS SUBCUTANEOUSLY EVERY DAY OR AMOUNT DIRECTED Rx By: Poli Mercado; Dispense: 0 Days ; #:1 X 5 x 3 ML Pen; Refill: 1;For: Diabetes mellitus; GAVIN = N; Verified Transmission to [facility]6177; Last Updated By: Pratima Callahan; [...] Hyperlipidemia; GAVIN = N; Verified Transmission to [facility]; Last Updated By: Pratima Callahan; 05/27/2022 10:05:07 AM Hypertension Start: Lisinopril 20 MG Oral Tablet; TAKE 1 TABLET DAILY Rx By: Poli Mercado; Dispense: 90 Days ; #:90 Tablet; Refill: 3;For: Hypertension; GAVIN = N; Verified Transmission to [facility]; Last Updated By: Alesha Claudio; [...] Hypertension; GAVIN = N; Verified Transmission to [facility]; Last Updated By: Pratima Callahan; 05/27/2022 10:05:07 AM Lipid Panel; Status:In Progress - Specimen/Data Collected; Done: [id number] Perform:Lab Services - Lab To Draw (Blood Test); Due:25Aug2022;Ordered; For:Hypertension; Ordered By:Poli Mercado; Continue: Clopidogrel Bisulfate 75 MG Oral Tablet; TAKE 1 TABLET BY MOUTH EVERY DAY Rx By: Poli Mercado; Dispense: 90 Days ; #:90 Tablet; Refill: 3;For: Hypertension; GAVIN = N; Verified Transmission to [facility]6177; Last Updated By: Pratima Callahan; 05/27/2022 10:05:07 AM Unlinked Stop: Lisinopril 10 MG Oral Tablet Rx By: NICHOL; Dispense: 90 Days ; #:90; Refill: 0; GAVIN = N; Record; Last Updated By: Poli Mercado;05/27/2022 10:27:56 AM Continue: Famotidine 20 MG Oral [...] N; Record; Last Updated (more content not included)...NormalUH TouchworksPROSTATE SPECIFIC AGon 10-34-1707Irhomkvs specific Ag [Mass/Vol]4.54 ng/mLHigh0.00 - 4.00[facility] Toms RiverComment on above:Order Comment: PATIENT FASTINGResult Comment: The FDA requires that the method used for PSA assay be reported to the physician. Values obtained with different assay methods must not be used interchangeably. This test was performed at [facility] using the Siemens Atellica PSA method, which is a sandwich immunoassay using chemiluminescence for quantitation. The assay is approved for measurement of prostate-specific antigen (PSA) in serum and may be used in conjunction with a digital rectal examination in men 50 years and older as an aid in detection of prostate cancer. 9-Ogvgh-pvworzsaq inhibitors (e.g. Proscar, Finasteride, Avodart, Dutasteride and Varsha) for the treatment of BPH have been shown to lower PSA levels by an average of 50% after 6 months of treatment.Performed By: #### PSA #### [facility] [address] [place], [place] [address]Bieyefev Specific Antigenon 95-68-1817Erwlyrwv specific Ag [Mass/Vol]4.54 ng/mLabGracie Square Hospital Work Phone: Comment on above:Reference Range: 0.00 - 4.00The FDA requires that the method used for PSA assay be reported to the physician. Values obtained with different assay methods must not be used interchangeably. This test was performed at [facility] using the SiemensAtellica PSA method, which is a sandwich immunoassay using chemiluminescence for quantitation. The assay is approvedfor measurement of prostate-specific antigen (PSA) in serum and may be used in conjunction with a digital rectalexamination in men 50 years and older as an aid in detection of prostate cancer. 4-Ninmn-portawqob inhibitors (e.g. Proscar, Finasteride, Avodart, Dutasteride and Varsha) for the treatment of BPH have been shownto lower PSA levels by an average of 50% after 6 months of treatment.Prostatic Specific Antigen, Totalon 04-86-6798JCMX7.280 ng/mLHigh<4.000NortSelect Medical Specialty [facility] SpecialistComment on above:Result Comment: PSA Test Method: ECLIA/Dung e 601Performed By: #### PSA #### [facility] [address] [place], [place] [id number] 40-50-2415Usxn nitrogen [Mass/Vol]31 mg/dLHigh7-25 [facility] SpecialistComment on above:Performed By: #### CREA, BUN #### [facility] [address] [place], [place] [id number] 90-09-9767Fopvdvoozq [Mass/Vol]1.3 mg/dLNormal 0.7-1.4NoSelect Medical Specialty Hospital [facility] [place] SpecialistComment on above:Performed By: #### CREA, BUN #### [facility] [address] [place], [place] [id number] mL/min/1.17a2Ynotnu>60NortSelect [facility] Specialty [facility] [place] SpecialistComment on above:Performed By: #### CREA, BUN #### [facility] [address] [place], [place] [id number] mL/min/1.32c7Pzy>60[facility] Specialist Comment on above:Performed By: #### CREA, BUN #### [facility] [address] [place], [place] [id number] A1Con 68-91-5378KFS217.81NormalNortSelect Medical Specialty Hospital - [place] SpecialistComment on above:Performed By: #### A1C #### [facility] [address] [place], [place] [id number] (Bld) [Mass fraction]7.3 %High4.0-6.0NoSelect Medical Specialty Hospital - [facility] [place] SpecialistComment on above:Performed By: #### A1C #### [facility] [address] [place], [place] [id number] A1Con 30-53-0555Wihymfc [Mass/Vol]154 mg/dLGreenwood Leflore Hospital Work Phone: HbA1c (Bld) [Mass fraction]7.0 %AbnormalMP-[facility] Work Phone: Comment on above:Diagnosis of Diabetes-Adults Non- Diabetic: < or = 5.6% Increased risk for developing diabetes: 5.7-6.4% Diagnostic of diabetes: > or = 6.5%. Monitoring of Diabetes Age (y) Therapeutic Goal (%) Adults: >18 <7.0 Pediatrics: 13-18 <7.5 7-12 <8.0 0- 6 7.5-8.5 [place] [employer]. Diabetes Care 33(S1), Oct 2009.Laboratory - Chemistry and Chemistry - challengeon 97-30-1593Xvmvs gap [Moles/Vol]12 mmol/L10 - 20MP-[facility] Work Phone: Calcium [Mass/Vol]10.0 mg/dL8.6 - 10.6MP-[facility] Work Phone: Chloride [Moles/Vol]103 mmol/L98 - 107MP-[facility] Work Phone: CD4 [Moles/Vol]32 mmol/L21 - 32MP-[facility] Work Phone: Creatinine [Mass/Vol]1.50 mg/dLabove high thresholdSee BelowMP-[facility] Work Phone: Comment on above:Reference Range: 0.50 - 1.30Glucose [Mass/Vol]109 mg/dLabove high hdxdfcwle03 - 99MP-[facility] Work Phone: Potassium [Moles/Vol]5.2 mmol/L3.5 - 5.3MP-[facility] Work Phone: Sodium [Moles/Vol]142 mmol/L136 - 145MP-[facility] Work Phone: Urea nitrogen [Mass/Vol]26 mg/dLabove high threshold6 - 23MP-[facility] Work Phone: Lipid Panelon 29-47-0190Epimlclwdrv [Mass/Vol]141 mg/dL0 - 199MP-[employer] [facility] Work Phone: Comment on above:. AGE DESIRABLE BORDERLINE HIGH HIGH 0-19 Y [...] should be performed immediately prior to Metamizole dosing.Cholesterol in HDL [Mass/Vol]48.3 mg/dL-[employer] [facility] Work Phone: Comment on above:. AGE VERY LOW LOW NORMAL HIGH 0-19 Y < 35 < 40 40-45 ---- 20-24 Y ---- < 40 >45 ---- >24 Y ---- < 40 40-60 >60. Cholesterol in LDL [Mass/Vol]75 mg/dL0 - 99MP-[facility] Work Phone: Comment on above:. NEAR BORD AGE DESIRABLE OPTIMAL HIGH HIGH VERY HIGH 0-19 Y 0 - 109 --- 110-129 >/= 130 ---- 20-24 Y 0 - 119 --- 120-159 >/= 160 ---- >24 Y 0 - 99 100-129 130-159 160-189 >/=190. Cholesterol.total/Cholesterol in HDL [Mass ratio]2.9 {ratio}MP-[employer] [facility] Work Phone: Comment on above:REF VALUESDESIRABLE < 3.4HIGH RISK > 5.0Triglyceride [Mass/Vol]87 mg/dL0 - 149MP-[employer] [facility] HospitalOsmosisPl[facility] Media Phone: Comment on above:. AGE DESIRABLE BORDERLINE HIGH HIGH VERY HIGH [...] should be performed immediately prior to Metamizole dosing.Lipid Panel17 mg/dL0 - 40 MP-[employer] Phone: No Panel Informationon {mL/min/1.73m2} Abnormal>60MP-[employer] [facility] HospitalVoltaire Phone: Comment on above:CALCULATIONS OF ESTIMATED GFR ARE PERFORMED USING THE MDRD STUDY EQUATION FOR THE IDMS-TRACEABLE CREATININE METHODS. 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 (249.00) (E08.9) Hypertension (401.9) (I10) Orders Diabetes mellitus Continue: BD Pen Needle Mini U/F 31G X 5 MM; use once a day as directed Rx By: Poli Mercado; Dispense: 0 Days ; #:100 Each; Refill: 2;For: Diabetes mellitus; GAVIN = N; Verified Transmission to [facility]; Last Updated By: Pratima Callahan; 09/05/2021 10:22:32 AM Basic Metabolic Panel; Status:In Progress - Specimen/Data Collected; Done: 05Sep2021 Perform:Lab Services - Lab To Draw (Blood Test); Due:04Dec2021;Ordered; For:Diabetes mellitus; Ordered By:Poli Mercado; Continue: FreeStyle InsuLinx System w/Device Kit; USE DIRECTED Rx By: Poli Mercado; Dispense: 0 Days ; #:1 Kit; Refill: 0;For: Diabetes mellitus; GAVIN = N; Verified Transmission to [facility] [address]; Last Updated By: Pratima Callahan; 09/05/2021 10:22:32AM Continue: FreeStyle InsuLinx Test In Vitro Strip; TEST ONCE DAILY *E11.9* Rx By: Poli Mercado; Dispense: 90 Days ; #:100 Strip; Refill: 3;For: Diabetes mellitus; GAVIN = N; Verified Transmission to [facility]177; Last Updated By: Pratima Callahan; 09/05/2021 10:22:32 AM Continue: Glimepiride 1 MG Oral Tablet; TAKE 1 TABLET BY MOUTH EVERY DAY Rx By: Poli Mercado; Dispense: 90 Days ; #:90 Tablet; Refill: 2;For: Diabetes mellitus; GAVIN = N; Verified Transmission to [id number]; Last Updated By: Pratima Callahan; 09/05/2021 10:22:32 AM Continue: Lantus SoloStar 100 UNIT/ML Subcutaneous Solution Pen-injector; INJECT 20 UNITS SUBCUTANEOUSLY EVERYDAY Rx By: Poli Mercado; Dispense: 0 Days ; #:1 X 5 x 3 ML Pen; Refill: 1;For: Diabetes mellitus; GAVIN = N; Verified Transmission to [id number]; Last Updated By: Pratima Callahan; [...] Services - Lab To Draw (Blood Test); Due:[id number];Ordered; For: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; Ordered By:Poli Mercado; Hyperlipidemia Continue: Atorvastatin Calcium 20 MG Oral Tablet; TAKE 1 TABLET BY MOUTH EVERY DAY Rx By: Poli Mercado; Dispense: 90 Days ; #:90 Tablet; Refill: 3;For: Hyperlipidemia; GAVIN = N; Verified Transmission to [id number]; Last Updated By: Pratima Callahan; 09/05/2021 10:22:32 AM Hypertension Continue: amLODIPine Besylate 10 MG Oral Tablet; TAKE 1 TABLET BY MOUTH EVERY DAY Rx By: Poli Mercado; Dispense: 90 Days ; #:90 Tablet; Refill: 2;For: Hypertension; GAVIN = N; Verified Transmission to [id number]; Last Updated By: Pratima Callahan; 09/05/2021 10:22:32 AM Continue: Clopidogrel Bisulfate 75 MG Oral Tablet; TAKE 1 TABLET BY MOUTH EVERY DAY Rx By: Poli Mercado; Dispense: 90 Days ; #:90 Tablet; Refill: 3;For: Hypertension; GAVIN = N; Verified Transmission to [facility]; Last Updated By: Pratima Callahan; [...] of Present Ill[place] had flu sjot/ had covid booster eye.. dr. mg sommer in [facility] 120 s no log here, agent lantus plus glimep has a pcp in [facility] no hypos feels well drove here from [facility] this am will travel to [place] this winter Review of Systems Constitutional: no [...] Hypertension (401.9) (I10) Obes (more content not included)...[facility] Vital Signs Date TimeVital SignValuePerforming JrivncktxWjgebgum68-00-8032 12:42-0500Body qfanal687.6 cmGeor MyraNifty After Fifty Phone: DatavolutionObwfprciao66-19-9432 12:42-0500Body mass index (BMI) [Ratio]29.54 kg/g8Rywhcm Allclasses Phone: 1(423)[employer]1199DatavolutionOajddzrvxl37-23-9598 12:42-0500Body temperature 96.91 [degF]Tom RenteriaWevodfelix [employer] Phone: 1(364)[employer]1199DatavolutionJajogcruhc61-93-0540 12:42-0500Body qodrrg73.01 kgGeorroshni RenteriaWevodfelix [employer] Phone: 1(164)[employer] CommunicationsConductricsFpksorfwfa48-61-1069 12:42-0500Diastolic blood mprlgjuj72 mm[Hg]Tom Field [employer] Phone: 1(549)[employer] CommunicationsConductricsLgyrcsulzb54-81-0593 12:42-0500Heart rate85 /min Tom Field [employer] Phone: 1(811)[employer]-8240DatavolutionJddbfntaxa45-83-7726 12:42-4085XyE3% (BldA) [Mass fraction]95 %Tom Field [employer] Phone: DatavolutionMdnburcuhi59-19-3755 12:42-0500Systolic blood zodjsfsm021 mm[Hg]Tom Field DO Work Phone: 1(912)[facility] [place], [place] [address]Xuzejxkvlg87-25-7904 11:47-0400Body wfyabl593.6 cmGeorroshni Field DO Work Phone: 1(143)[facility] [place], [place] [address]Mubuxzqfzk22-49-3522 11:47-0400Body mass index (BMI) [Ratio]29.38 kg/g1Nfoyjpcrispin Field DO Work Phone: 1(214)[facility] [place], [place] [address]Fuyrqgescx19-23-8869 11:47-0400Body temperature 96.91 [degF]Tom Field DO Work Phone: 1(268)[facility] [place], [place] [address]Mbzugxesui62-61-7913 11:47-0400Body .56 kgGeorroshni Field DO Work Phone: 1(466)[facility] [place], [place] [address]Jmxkndjtux69-89-6724 11:47-0400Diastolic blood oeeiulau48 mm[Hg]Tom Field DO Work Phone: 1(023)[facility] [place], [place] [address]Wbtrsbvenu83-54-7267 11:47-0400Heart rate62 /min Tom Field DO Work Phone: 1(867)[facility] [place], [place] [address]Wouxopyuma80-93-9465 11:47-4063PdX6% (BldA) [Mass fraction]99 %Tom Field DO Work Phone: 1(643)[facility] [place], [place] [address]Ttnpcuadbu26-38-7536 11:47-0400Systolic blood okdbxeoe735 mm[Hg]Tom Field DO Work Phone: 1(453)[facility] [place], [place] [address]Javmauhvpl61-84-1823 11:35-0400Body .6 cmGeorroshni Field DO Work Phone: 1(200)[facility] [place], [place] [address]Metpnmggdh53-61-8319 11:35-0400Body mass index (BMI) [Ratio]29.54 kg/o7Taovfucrispin Field DO Work Phone: 1(237)[address] [place], [place] 2843409-12-2025 11:35-0400Body temperature 97.81 [degF]Tom Field DO Work Phone: 1(561)[facility] [place] [address]-12-2025 11:35-0400Body nfewmo82.01 kgGeorroshni Field DO Work Phone: 1(517)625-[address] [place], [place] [address]Tcqdytgeye13-16-3312 11:35-0400Diastolic blood hiahmkba65 mm[Hg]Tom Field DO Work Phone: [facility] HospitalVbynmvkiob71-70-5990 11:35-0400Heart rate62 /min Tom Field DO Work Phone: [facility] HospitalZxpvbgaeeu43-09-6751 11:35-7389DsD5% (BldA) [Mass fraction]98 %Tom Field DO Work Phone: [facility] HospitalMbiluckvxg02-70-5807 11:35-0400Systolic blood wmhmovwy15 mm[Hg]Tom Field DO Work Phone: [facility] HospitalFrrzgtyxun23-54-5741 08:59-0400Body ovskwf788.6 cmGeorroshni Field DO Work Phone: [facility] HospitalUvniufjffy76-68-3839 08:59-0400Body mass index (BMI) [Ratio]29.86 kg/g7Gnndibroshni Field DO Work Phone: [facility] HospitalIiwoociwej03-03-9542 08:59-0400Body temperature 96.91 [degF]Tom Field DO Work Phone: [facility] HospitalPklxzyvhog66-79-9008 08:59-0400Body thufud13.92 kgGeorroshni Field DO Work Phone: [facility] HospitalGfxaulpyfg50-91-1991 08:59-0400Diastolic blood mm[Hg]Tom Field DO Work Phone: [facility] HospitalCjbbyzfhvw29-56-5911 08:59-0400Heart rate59 /min Tom Field DO Work Phone: Strike[employer] TechnologiesParkland Health CenterZohmacextc96-62-6489 08:59-7935XiF7% (BldA) [Mass fraction]99 %Tom Field DO Work Phone: [facility]OP[facility] CenterTgbzocqsuj66-25-6874 08:59-0400Systolic blood mm[Hg]Tom Field DO Work Phone: Strike[employer] TechnologiesParkland Health CenterQbkptfrngr70-95-3730 10:41-0400Body mktijr392.6 cmGeorge Kaftan DO Work Phone: [facility] HospitalCvihsfcian99-14-4027 10:41-0400Body mass index (BMI) [Ratio]29.86 kg/s1Pnsvlvcrispin Field DO Work Phone: [facility] HospitalZfqpjmpwzc65-27-8346 10:41-0400Body temperature 96.91 [degF]Tom Field DO Work Phone: 1(235)[facility] [place], [place] [address]Tabauhkdjc28-56-2932 10:41-0400Body pewfwz54.92 kgGeorroshni Field DO Work Phone: 1(721)[facility] [place], [place] [address]Khrkmzuwas39-81-5678 10:41-0400Diastolic blood llauesle12 mm[Hg]Tom Field DO Work Phone: 1(731)[facility] [place], [place] [address]Zqahihpliy03-77-2955 10:41-0400Heart rate62 /min Tom Field DO Work Phone: 1(379)[facility] [place], [place] [address]Xxyzdseiiu16-45-5502 10:41-0417BmM6% (BldA) [Mass fraction]99 %Tom Field DO Work Phone: 1(800)[facility] [place], [place] [address]Uttcnfszex69-72-5744 10:41-0400Systolic blood nersbexd508 mm[Hg]Tom Field DO Work Phone: 1(466)[facility] [place], [place] [address]Smozbktvrg98-18-9814 16:38-0400Diastolic blood ymgfmxzj29 mm[Hg]Benedicto Field DO Work Phone: 1(351)[facility] [place], [place] 1054907-21-2025 16:38-0400 Heart rate83 /UgoGlendy Field DO Work Phone: 1(837)[address]07-21-2025 16:38-0400 Respiratory rate22 /UgoGlendy Field DO Work Phone: 1(116)[facility] [place], [place] 1054907-21-2025 16:38-0400 SaO2% (BldA) [Mass fraction]97 %Benedicto Field DO Work Phone: 1(783)[address] [place], [place] 0204807-21-2025 16:38-0400 Systolic blood saemoozy08 mm[Hg]G. Jessica Field DO Work Phone: 1(682)[address] [place], [place] 0204807-21-2025 12:30-0400 Body kmwfuc200.26 cmG. Jessica Field DO Work Phone: 1(333)[address] [place], [place] 0204807-21-2025 12:30-0400 Body aruybunlima39.7 [degF]Benedicto Field DO Work Phone: 1(983)[address] [place], [place] 0204807-21-2025 12:30-0400 Body hbophz02.08 kgG. Jessica Field DO Work Phone: 1(353)[address] [place], [place] 0204806-25-2025 15:13-0400 Diastolic blood sfgagwgu68 mm[Hg]Silvestre Cooley MD Work Phone: 1(753)[address]06-25-2025 15:13-0400Systolic blood slcovluz178 mm[Hg]Silvestre Cooley MD Work Phone: 1(362)[address]06-03-2025 10:30-0400Body twoqcd300.72 cmG. Jessica Field DO Work Phone: 1(862)[address] [place], [place] 0204806-03-2025 10:30-0400 Body mass index (BMI) [Ratio]29.7 kg/m2G. Jessica Field DO Work Phone: 1(068)[address] [place], [place] 0204806-03-2025 10:30-0400 Body kabppb72.9 kgG. Jessica Field DO Work Phone: 1(109)[address] [place], [place] 0204806-03-2025 10:30-0400 Diastolic blood mm[Hg]G. Jessica Field DO Work Phone: 1(755)[address] [place], [place] 0204806-03-2025 10:30-0400 Heart rate67 /Ugo. Jessica Field DO Work Phone: 1(839)[address] [place], [place] 0204806-03-2025 10:30-0400 Respiratory rate18 /Ugo. Jessica Field DO Work Phone: 1(510)[address] [place], [place] 0204806-03-2025 10:30-0400 SaO2% (BldA) [Mass fraction]97 %Benedicto Renterialeighton DO Work Phone: 1(522)[address] [place], [place] 0204806-03-2025 10:30-0400 Systolic blood cowzmndr168 mm[Hg]Benedicto Renterialeighton DO Work Phone: 1(252)[address] [place], [place] 0204805-20-2025 10:04-0400 Body avdpum742.2 Jenniferryan Moreno PA Work Phone: 1(019)484-[address] [place], [place] [address]Bycopkkeuh26-85-9111 10:04-0400Body mass index (BMI) [Ratio]31.01 kg/m2Daja Moreno PA Work Phone: 1(407)675-[address] [place], [place] [address]Biqywqwzzr66-17-0956 10:04-0400Body temperature 97.3 [degF]Daja Moreno PA Work Phone: 1(828)[facility] [place], [place] [address]Scuezjpshb81-52-4925 10:04-0400Body .81 kgDaja Moreno PA Work Phone: [facility] HospitalGcxhxoqutg28-14-9807 10:04-0400Diastolic blood utpdmmhr58 mm[Hg]Daja Moreno PA Work Phone: [facility] HospitalSacrcpqkbw83-20-6520 10:04-0400Heart rate63 /min Daja Moreno PA Work Phone: 1(108)684-[address] [place], [place] [address]Qcycisajie91-86-7269 10:04-8776KoQ6% (BldA) [Mass fraction]96 %Daja Moreno PA Work Phone: [facility] HospitalBewnsjlmux09-20-8300 10:04-0400Systolic blood wurtktpd559 mm[Hg]Daja Moreno PA Work Phone: 1(958)387-[address] [place], [place] [address]Zssaqtibyf32-87-1782 09:03-0400Body .2 cmGecrispin Field DO Work Phone: [facility] HospitalIaofwbbqzu75-75-1750 09:03-0400Body mass index (BMI) [Ratio]31.01 kg/s1RpijynTom Field DO Work Phone: [facility] HospitalMwywvvmysy36-49-5089 09:03-0400Body temperature 97.3 [degF]Tom Field DO Work Phone: 1(247)689-[address] [place], [place] [address]Itmiysgwrh78-46-2467 09:03-0400Body enmjpu56.81 kgGeorge Rashida DO Work Phone: 1(597)490-[address] [place], [place] [address]Gxipcjnkga21-37-7584 09:03-0400Diastolic blood wyragvwn20 mm[Hg]Tom Field DO Work Phone: [facility] HospitalBorjtyqvcv82-99-1164 09:03-0400Heart rate63 /min Tom Field DO Work Phone: 1(417)710-[address] [place], [place] [address]Ftfdhmngdw08-91-3648 09:03-2203XuU0% (BldA) [Mass fraction]96 %Tom Field DO Work Phone: 1(044)726-[address] [place], [place] [address]Aeaucepeer17-09-5490 09:03-0400Systolic blood jmszgiau149 mm[Hg]Tom Field DO Work Phone: 1(847)595-[address] [place], [place] [address]Tlmtcefqyn42-17-1898 06:32-0400Body vzlxew892.64 cmG. Jessica Field DO Work Phone: 1(716)[address] [place], [place] 0204803-24-2025 06:32-0400 Body htpijifchnr95.4 [degF]Benedicto Field DO Work Phone: 1(910)[address] [place], [place] 0204803-24-2025 06:32-0400 Body vlgiwo07.54 kgG. Jessica Field DO Work Phone: 1(278)[address] [place], [place] 0204803-24-2025 06:32-0400 Diastolic blood usvudhrw22 mm[Hg]Benedicto Field DO Work Phone: 1(112)[address] [place], [place] 0204803-24-2025 06:32-0400 Heart rate62 /Ugo. Jessica Field DO Work Phone: 1(499)[address] [place], [place] 0204803-24-2025 06:32-0400 Respiratory rate16 /Ugo. Jessica Field DO Work Phone: 1(791)[address] [place], [place] 0204803-24-2025 06:32-0400 SaO2% (BldA) [Mass fraction]97 %Benedicto Field DO Work Phone: 1(300)[address] [place], [place] 0204803-24-2025 06:32-0400 Systolic blood ecyyxmnb843 mm[Hg]Benedicto Field DO Work Phone: [facility]01-13-2025 10:13-0500 Body .2 cmGecrispin Field DO Work Phone: [facility] HospitalIsisdopfiv32-70-6730 10:13-0500Body temperature 97.3 [degF]Tom Field DO Work Phone: [facility] HospitalRvbjuwhpvu91-14-2546 10:0500Diastolic blood suwbunue97 mm[Hg]Tom Field DO Work Phone: [facility] HospitalOfiqeaeguy54-46-0229 10:0500Heart rate62 /min Tom Field DO Work Phone: [facility] HospitalCcqglvdqvh71-47-3078 10:0769RtA8% (BldA) [Mass fraction]97 %Tom Field DO Work Phone: [facility] HospitalTbgpexqwrk34-57-2417 10:0500Systolic blood gykdapxf946 mm[Hg]Tom Field DO Work Phone: [facility] HospitalYtblnolhyn18-36-0468 07:56-0500Body kmksel726.2 cmSunny Vasquez DO Work Phone: [facility] HospitalGwxlbgeopt96-56-6012 07:56-0500Body mass index (BMI) [Ratio]29.76 kg/x4Zlvzzawbclinton Vasquez DO Work Phone: [facility] HospitalUqwzayjman39-29-7272 07:56-0500Body mmobio08.18 kgBenabdifatha Phank DO Work Phone: [facility] HospitalXcgxqzzrjk50-28-0326 10:17-0500Body .2 Yunier BLACKBURN Work Phone: [facility] HospitalLpzosyijsb93-38-8710 10:17-0500Body mass index (BMI) [Ratio]29.76 kg/m2Autumn BLACKBURN Work Phone: noParkland Health CenterJylsiosdnk06-20-2840 10:17-0500Body ubgzng94.18 Michaela BLACKBURN Work Phone: [facility] HospitalEiubvszawa02-06-2053 10:17-0500Diastolic blood wfcxhavl01 mm[Hg]Autumn Valencia PA Work Phone: [facility] HospitalNqfqfbtcsk18-10-5006 10:17-0500Heart rate66 /min Autumn Valencia PA Work Phone: [facility] HospitalRcatwxunzu33-90-3641 10:17-0500Respiratory rate16 /minAutumn Valencia PA Work Phone: [facility] HospitalImgzgqgbbb14-55-2658 10:17-0108HtG1% (BldA) [Mass fraction]95 %Autumn Valencia PA Work Phone: [facility] HospitalLyqrnuhmqv15-72-8944 10:17-0500Systolic blood tkszqtna909 mm[Hg]Autumn Valencia PA Work Phone: [facility] HospitalUaeetrontp65-14-3223 09:10-0400Body .2 cmBenabdifatah Murcek DO Work Phone: [facility] HospitalVwxfkweqqp17-64-1856 09:10-0400Body mass index (BMI) [Ratio]30.07 kg/l6Leemhpvd Murcek DO Work Phone: [facility] HospitalWoleiqxiyj57-53-3478 09:10-0400Body .09 kgBenchantalmin Murcek DO Work Phone: [facility] HospitalDeycneosvu51-19-0857 15:12-0400Body onpygw385.64 cmDO Benedicto Field Work Phone: [facility]09-16-2024 15:12-0400 Body mass index (BMI) [Ratio]30.2 kg/m2DO Benedicto Field Work Phone: [facility]09-16-2024 15:12-0400 Body iudvie95.82 kgDO Benedicto Field Work Phone: [facility]09-16-2024 15:12-0400 Diastolic blood peqmziqr39 mm[Hg]DO Benedicto Field Work Phone: 1(858)109-[address] [place], [place] 1054909-16-2024 15:12-0400 Heart rate78 /minDO Benedicto Field Work Phone: 1(403)[address] [place], [place] 0204809-16-2024 15:12-0400 SaO2% (BldA) [Mass fraction]98 %DO Benedicto Field Work Phone: 1(037)[address] [place], [place] 0204809-16-2024 15:12-0400 Systolic blood yyehpvjw695 mm[Hg]DO Benedicto Field Work Phone: 1(217)[address] [place], [place] 0204809-06-2024 12:30-0400 Body nsseeh433.7 cmGeorroshni Field DO Work Phone: 1(327)875-[address] [place], [place] [address]Meokvtqxqa77-87-2274 12:30-0400Body mass index (BMI) [Ratio]28.74 kg/w7Rkbfosroshni Field DO Work Phone: 1(149)091-[address] [place], [place] [address]Sfjzawyrvs52-83-4623 12:30-0400Body temperature 97.39 [degF]Tom Field DO Work Phone: 1(483)102-[address] [place], [place] [address]Asuqykxjkq40-70-8788 12:30-0400Body sfladu61.73 kgGeorroshni Field DO Work Phone: 1(466)732-[address] [place], [place] [address]Uaxubclkvy51-92-6666 12:30-0400Diastolic blood yfwqdnec62 mm[Hg]Tom Field DO Work Phone: 1(290)453-[address] [place], [place] [address]Mdhmmyhkwj63-60-0832 12:30-0400Heart rate60 /min Tom Field DO Work Phone: [facility] HospitalFrmlviltsl05-99-5697 12:30-6132TtC6% (BldA) [Mass fraction]100 %Tom Field DO Work Phone: 1(024)779-[address] [place], [place] [address]Vxncrjkbtt10-09-4271 12:30-0400Systolic blood fhduucxz909 mm[Hg]Tom Field DO Work Phone: [facility] HospitalPgfogkjumx14-42-5228 11:24-0400Body nxxlwu695.18 cmDO Benedicto Field Work Phone: 1(906)[address]09-03-2024 11:24-0400 Body mass index (BMI) [Ratio]30.4 kg/m2DO Benedicto Field Work Phone: 1(575)[address] [place], [place] 0204809-03-2024 11:24-0400 Body phgubg74.99 kgDO Benedicto Field Work Phone: 1(575)[address] [place], [place] 0204809-03-2024 11:24-0400 Diastolic blood lfuuxpkd62 mm[Hg]DO Benedicto Field Work Phone: 1(393)[address] [place], [place] 0204809-03-2024 11:24-0400 Heart rate61 /Danna Field Work Phone: 1(242)[address] [place], [place] 0204809-03-2024 11:24-0400 Respiratory rate18 /Danna Field Work Phone: 1(032)[address] [place], [place] 0204809-03-2024 11:24-0400 SaO2% (BldA) [Mass fraction]98 %DO Benedicto Field Work Phone: 1(723)[address] [place], [place] 0204809-03-2024 11:24-0400 Systolic blood ygsqiqir323 mm[Hg]DO Benedicto Field Work Phone: 1(305)[address] [place], [place] 0204809-03-2024 08:34-0400 Body osllfc720.7 cmFegonzalo García TELECOMMUNICATIONS SPECIALIST Work Phone: [facility] HospitalWotsfghjxp84-55-0346 08:34-0400Body mass index (BMI) [Ratio]29.5 kg/o2Ahoevlt Mabelgel TELECOMMUNICATIONS SPECIALIST Work Phone: [facility] HospitalKnyirdrvln50-44-8444 08:34-0400Body kg Amada Ricky TELECOMMUNICATIONS SPECIALIST Work Phone: [facility] HospitalAkxcauxpbf06-50-9339 08:34-0400Diastolic blood uysodqtv12 mm[Hg]Amada García TELECOMMUNICATIONS SPECIALIST Work Phone: [facility] HospitalBurlmatctj25-16-2323 08:34-0400Heart rate75 /min Amada Windnagel TELECOMMUNICATIONS SPECIALIST Work Phone: [facility]OP[facility] CenterPlnfgwkwrf53-21-1196 08:34-0400Systolic blood skklvivs897 mm[Hg]Amada García TELECOMMUNICATIONS SPECIALIST Work Phone: [facility]OP[facility] CenterVhmaxjbjhn70-11-5189 10:03-0400Body efuypa040.7 cmGeorroshni Field DO Work Phone: [facility]OP[facility] CenterGbovsiuyaa13-74-3251 10:03-0400Body mass index (BMI) [Ratio]29.32 kg/d0Svgugkroshni Field DO Work Phone: [facility]OP[facility] CenterKhqorfbjnl85-27-3484 10:03-0400Body temperature 97.3 [degF]Tom Field DO Work Phone: noParkland Health CenterBbkmieqvzt91-91-1501 10:03-0400Body ytteii73.45 kgGeorroshni Field DO Work Phone: NOP[facility] CenterRaoimaigjt06-89-1746 10:03-0400Diastolic blood oxjwugss49 mm[Hg]Tom Field DO Work Phone: noParkland Health CenterOlqpvglhkv92-34-4395 10:03-0400Heart rate61 /min Tom Field DO Work Phone: noParkland Health CenterDewyfpifnm31-05-5288 10:03-5896VxT8% (BldA) [Mass fraction]97 %Tom Field DO Work Phone: noParkland Health CenterRkkjzadymn64-34-5529 10:03-0400Systolic blood xcdekjti314 mm[Hg]Tom Field DO Work Phone: noParkland Health CenterAdlqjoiwgf03-05-6606 10:44-0400Body .64 cmDO Benedicto Field Work Phone: [facility]08-20-2024 10:44-0400 Body mass index (BMI) [Ratio]31.4 kg/m2DO Benedicto Field Work Phone: 1(661)903-[address] [place], [place] 1054908-20-2024 10:44-0400 Body axyqzkcxtvs20.8 [degF]DO Benedicto Field Work Phone: 1(260)[address] [place], [place] 0204808-20-2024 10:44-0400 Body ycfizf83.45 kgDO Benedicto Field Work Phone: 1(526)[address] [place], [place] 0204808-20-2024 10:44-0400 Diastolic blood ogsigcgu62 mm[Hg]DO Benedicto Field Work Phone: 1(706)[address] [place], [place] 0204808-20-2024 10:44-0400 Heart rate68 /minDO Benedicto Field Work Phone: 1(082)[address] [place], [place] 0204808-20-2024 10:44-0400 Respiratory rate16 /minDO Benedicto Renteriaftfelix Work Phone: 1(219)[address] [place], [place] 0204808-20-2024 10:44-0400 SaO2% (BldA) [Mass fraction]98 %DO Benedicto Field Work Phone: 1(993)[address] [place], [place] 0204808-20-2024 10:44-0400 Systolic blood pauidddh401 mm[Hg]DO Benedicto Field Work Phone: 1(171)[address] [place], [place] 0204804-29-2024 10:28-0400 Diastolic blood dwthyklz75 mm[Hg]DO Benedicto Field Work Phone: 1(219)[address] [place], [place] 0204804-29-2024 10:28-0400 Heart rate62 /minDO Benedicto Field Work Phone: 1(857)[address] [place], [place] 0204804-29-2024 10:28-0400 Respiratory rate18 /minDO Benedicto Field Work Phone: 1(077)[address] [place], [place] 0204804-29-2024 10:28-0400 SaO2% (BldA) [Mass fraction]98 %DO Benedicto Field Work Phone: 1(502)[address] [place], [place] 0204804-29-2024 10:28-0400 Systolic blood wtfsmfap716 mm[Hg]DO Benedicto Graffan Work Phone: 1(658)[address] [place], [place] 0204804-29-2024 07:44-0400 Body nntiyu093.72 cmDO Benedicto Field Work Phone: [facility]04-29-2024 07:44-0400 Body .09 kgDO Benedicto Field Work Phone: [facility]09-20-2023 14:00-0400 Body dvuafu225.72 cmKulwinderskylar Tate Other [employer] Other 09-20-2023 14:00-0400Body mass index (BMI) [Ratio] 31.17 kg/p8Xnqwi Tate Other [employer] Other 09-20-2023 14:00-0400Body jxxobu63.99 kgDaskylar Ybarra Other [employer] Other 09-20-2023 14:00-0400Diastolic blood jvqmrkty70 mm[Hg] Liil Ybarra Other [employer] Other 09-20-2023 14:00-6587RvH2% (BldA) [Mass fraction]61 % Lili Ybarra Other [employer] Other 09-20-2023 14:00-0400Systolic blood kravverx941 mm[Hg] Lili Ybarra Other [employer] Other 08-15-2022 10:03-0400Body mbobnk742.72 cmIreemerita Henry Work Phone: [id number]-OhnimlCinema [facility] Work Phone: 1(668) 179-964608-15-2022 10:03-0400Body mass index (BMI) [Ratio] 31.78 kg/d8AifoaAshlee Henry Work Phone: mp576-8479HD-Mvfoty [facility] Work Phone: 1(505) 933-844508-15-2022 10:03-0400Body surface area Derived from formula2.08 l9Rvkjy C Kodz Work Phone: mp-select [facility] Work Phone: 1(716) 563-617908-15-2022 10:03-0400Body nlmfziiuhwe90.4 [degF]Ashlee Thorne Kodz Work Phone: [id number]-Kagpgu [facility] Work Phone: 1(979) 452-727108-15-2022 10:03-0400Body dqcyxn08.8 kgIreemerita Thorne Kodz Work Phone: [id number]-Inuuac [facility] Work Phone: 1(695) 433-327608-15-2022 10:03-0400Diastolic blood lwinmqip98 mm[Hg] Ashlee C Kodz Work Phone: [id number]-Okcdne [facility] Work Phone: 1(105) 467-641208-15-2022 10:03-0400Heart rate70 /minIrena C Kodz Work Phone: [id number]-Bhkquv [facility] Work Phone: 1(387) 335-752408-15-2022 10:03-5383DdL0% (BldA) [Mass fraction]98 % Ashlee C Kodz Work Phone: [facility] Work Phone: 1(462) 374-995608-15-2022 10:03-0400Systolic blood slctfajc590 mm[Hg] [place] C Kodz Work Phone: [id number]-Bxhapp [facility] Work Phone: Encounters Encounter DateEncounter [facility] ProviderFacilityStart: 08-15-2025 End: 95-49-9592Nnsgkt flowsMagy Field DO Work Phone: NOYP [facility] 230Start: 08-15-2025 End: 65-74-4762Jznrar flowsheetGeorge R Kaftan DO Work Phone: NOMS [facility] 230Start: 08-15-2025 End: 58-37-7791Jjlfgc outpatient visit 15 minutesGeorge R Kaftan DO Work Phone: NOJY [facility] 230Comment on above: Acquired hammertoes of both feet (Primary Dx); Cellulitis of other specified site; Tinea crurisStart: 08-15-2025 End: 95-88-2519szbrksgunaVMYFHQ R KAFTANNot AvailableStart: 08-09-2025 End: 75-35-5149hpzjtkxbtsOPFKSL R KAFTANNot AvailableStart: 08-08-2025 End: 54-18-4617Hmkswo flowsheetGeorge R Kaftan DO Work Phone: [facility] 230Start: 08-08-2025 End: 74-71-0479Cwigsx flowsheetGeorge R Kaftan DO Work Phone: [facility] 230Start: 08-08-2025 End: 20-30-1527Seajicofh encounterGeorge R Kaftan DO Work Phone: [facility] 230Start: 08-08-2025 End: 17-89-3251[place] outpatient visit 25 minutesGeorge R Kaftan DO Work Phone: [facility] 230Comment on above: Scrotal edema (Primary Dx); Type 2 diabetes mellitus without complication, with long-term current use of insulin (HCC); Cellulitis of other specified site; Tinea cruris; Chronic bilateral low back pain, unspecified whether sciatica presentStart: 08-08-2025 End: 57-69-3667hvndamkzwiAWKQJE R KAFTANNot AvailableStart: 07-26-2025 End: 26-77-8046Qieouw flowsheetSarah Connell DPM Work Phone: noms [place] PodiatryStart: 07-26-2025 End: 10-87-1702Wadjrn flowsheetCassandra H Connell DPM Work Phone: [facility] PodiatryStart: 07-26-2025 End: 68-76-1951Nbhcsk outpatient visit 15 minutesSarah Padma Ko DPM Work Phone: NOMS [place] PodiatryComment on above:Onychomycosis (Primary Dx); Type II diabetes mellitus with neurological manifestations (HCC); Pain in both feet; Corns and callosities; Hammer toes of both feetStart: 07-26-2025 End: 10-78-1059vucaladzenUKFSDOMDO H SMITHNot AvailableStart: 07-21-2025 End: 00-45-1160eiyqborujcNqdncc Augustine KoromiaFacility:[facility] Centertart: 07-50-9347Ekw-patient / Non-visitMTess Levine- Heart Rhythm ClinicStart: 07-05-2025 End: 81-50-8686naxrmlbcmaUJXCKD KAFTANNot AvailableStart: 06-28-2025 End: 59-58-2018MzvuitUwvkxMkiel Cordon LPN Work Phone: noms [facility] 230Comment on above: Urinary tract infection without hematuria, site unspecifiedStart: 06-24-2025 End: 41-38-0306Ylsgtl flowsheetGeevelinge R Kaftan DO Work Phone: [facility] 230Start: 06-24-2025 End: 26-78-8276Lywdbm flowsheetGeorge R Kaftan DO Work Phone: noMS [facility] 230Start: 06-24-2025 End: 07-31-3673Rgcizf outpatient visit 25 minutesGeorge R Kaftan DO Work Phone: [facility] 230Comment on above: Hypotension, unspecified hypotension type (Primary Dx); Altered mental status, unspecified altered mental status type; Falls; Bradycardia; Sick sinus syndrome (HCC); Status post cardiac pacemaker procedure; Parkinson's disease with dyskinesia and fluctuating manifestations (HCC); Urinary tract infection without hematuria, site unspecifiedStart: 06-24-2025 End: 37-07-2608qjhhxuqlzaLTMRJV R KAFTANNot AvailableStart: 06-16-2025 End: 98-41-6637jorzvssxqgWbfjmweRonnie Gonzalezity: SURG CLINICStart: 06-14-2025 End: 68-47-3953Hytgly flowsheetTom R Kaftan DO Work Phone: NOQS [facility] 230Start: 06-14-2025 End: 55-46-1931Xrsedp flowsheetTom R Kaftan DO Work Phone: NO[facility] 230Start: 06-14-2025 End: 16-45-1377Wfvqmn outpatient visit 25 minutesGeorge R Myraftan DO Work Phone: noms [facility] 230Comment on above: Degeneration of intervertebral disc of lumbosacral region, unspecified whether pain present (Primary Dx); Type 2 diabetes mellitus with hyperglycemia, without long-term current use of insulin (HCC); Mixed hyperlipidemia ; Hypertension, unspecified type ; Hypothyroidism, unspecified type ; Parkinson's disease with dyskinesia and fluctuating manifestations (HCC); Stage 3a chronic kidney disease (CMS-HCC); Type 2 diabetes mellitus without complication, with long-term current use of insulin (HCC)Start: 06-14-2025 End: 49-84-6187aqvgaloxvyDIOEUJ R KAFTANNot AvailableStart: 05-11-2025 End: 56-93-3774Vkxfln Khloe Connell DPM Work Phone: NORE External Department UnsolicitedStart: 05-04-2025 End: 82-07-5325Efrkoc flowsheetGeevelinge R Kaftan DO Work Phone: [facility] 230Start: 05-04-2025 End: 77-11-1537Vpyigw flowsheetGeorge R Kaftan DO Work Phone: [facility] 230Start: 05-04-2025 End: 35-86-8925Qxsxjr outpatient visit 25 minutesGeorge R Kaftan DO Work Phone: noms [facility] 230Comment on above:Orthostatic lightheadedness (Primary Dx); Parkinson's disease with dyskinesia and fluctuating manifestations (HCC); Hypertension, unspecified type ; Hypothyroidism, unspecified type ; Fall, sequela; Acute pain of right kneeStart: 05-04-2025 End: 86-57-4432qrbkhycexyEKKWUH R KAFTANNot AvailableStart: 05-02-2025 End: 84-68-5992Zwubduovl department patient visitAlexandchuy Benitezliliana Facility:[facility]art: 74-99-8868Kmw-patient / Non-visitMTess Levine-Heart Rhythm ClinicStart: 04-25-2025 End: 77-81-7544Nphjzv Savita Connell DPM Work Phone: noms [facility] PODIATRYStart: 04-25-2025 End: 21-17-6259Ehwvrk flowsChidi Connell DPM Work Phone: noms [facility] PODIATRYStart: 04-25-2025 End: 52-77-7062yvzasbtvbgBKNPQTDWF H SMITHNot AvailableStart: 04-25-2025 End: 79-52-9409Chedftp encounter procedureCaoumou Connell DPM Work Phone: noms SWS PODIATRYComment on above:Onychomycosis (Primary Dx); Type II diabetes mellitus with neurological manifestations (HCC); Pain in both feetStart: 04-06-2025 End: 68-87-7478Vovjdtk encounter procedureGeorroshni Conde MD-Pacemaker CheckStart: 04-06-2025 End: 12-91-9950xtutmtpjfdTGlendy Field DO Work Phone: [facility] Work Phone: Start: 04-06-2025 End: 05-05-2483Aulsmwr encounter procedureSilvestre Cooley MD Work Phone: noms SWS DERMComment on above: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Start: 04-06-2025 End: 74-21-8258qrreedcksaAQLGWQ Jony Weiner AvailableStart: 68-62-1014Nlp- patient / Non-visitMTess Levine-Heart Rhythm ClinicStart: 03-15-2025 End: 84-22-8025qmlyfifrmnK. Jessica Field DO Work Phone: [facility] Work Phone: Start: 03-15-2025 End: 73-53-5432Brwgukd encounter procedureG. Jessica Field DO Work Phone: [facility] Work Phone: Start: 03-03-2025 End: 61-56-5011mpnwmbymswSRXTKQ LOWENot AvailableStart: 03-01-2025 End: 37-68-4874Hvbzhy flowsheetGecrispin Field DO Work Phone: [facility] 230Start: 03-01-2025 End: 53-29-5577Xmgqdm flowsheetGecrispin Field DO Work Phone: [facility] 230Start: 03-01-2025 End: 93-41-3723Fiuco of hemosiderin, quantDaja BLACKBURN Work Phone: [facility] Work Phone: Start: 03-01-2025 End: 56-52-1174Jumjzud encounter procedureDaja BLACKBURN Work Phone: [facility] 230Comment on above:Routine general medical examination at health care facility (Primary Dx)Start: 03-01-2025 End: 41-77-6071Ulmmfw outpatient visit 25 minutesGeorge Mayank Field DO Work Phone: [facility] 230Comment on above: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, unspecified vessel or lesion type, unspecified whether oneida or transplanted heart (CMS/HCC) (Primary Dx); Type 2 diabetes mellitus without complication, with long-term current use of insulin; Hypertension, unspecified type ([facility]); Mixed hyperlipidemia ([facility]/HCC); Stage 3a chronic kidney disease (HCC) ([facility]); Type 2 diabetes mellitus with hyperglycemia, without long-term current use of insulin ([facility]); Erectile dysfunction, unspecified erectile dysfunction typeStart: 03-01-2025 End: 52-48-7798QirqzdSjjtay R Kaftan DO Work Phone: [facility] FM 230Comment on above:Type 2 diabetes mellitus without complication, with long-term current use of insulinStart: 02-03-2025 End: 65-28-3967ZyfedtBopseheqm H Smith DPM Work Phone: N[facility] PODIATRYComment on above:OnychomycosisStart: 02-01-2025 End: 54-10-2318Wlsvsz flowsheetHetal Davies MD Work Phone: [facility] DERMStart: 02-01-2025 End: 57-05-4659Lyfodp flowsorlandoEmcharisma Davies MD Work Phone: [facility] DERMStart: 02-01-2025 End: 80-76-8606Yyjten outpatient new 30 minutesEmcharisma Davies MD Work Phone: [facility] DERMComment on above:Seborrheic keratosis (Primary Dx); Lentigines; Capillary angioma; Neoplasm of unspecified behavior of bone, soft tissue, and skin; History of skin cancerStart: 02-01-2025 End: 42-22-3447vwbqrtmjwcPAMUJ A PETITTINot AvailableStart: 01-18-2025 End: 07-16-8172Jgmsad Savita Connell DPM Work Phone: [facility] PODIATRYStart: 01-18-2025 End: 04-65-5362Iqlmgltriny Connell DPM Work Phone: noms [facility] PODIATRYStart: 01-18-2025 End: 55-46-9002Wwrtzzp encounter procedureCaoumou Connell DPM Work Phone: noms SWS PODIATRYComment on above:Onychomycosis (Primary Dx); Type II diabetes mellitus with neurological manifestations (CMS/HCC); Pain in both feetStart: 01-18-2025 End: 77-13-7067djfadbydpiRRCFPMDYT H SMITHNot AvailableStart: 01-13-2025 End: 85-48-4701DbcgduHtqyux R Kaftan DO Work Phone: noms [facility] 230Comment on above:Essential (primary) hypertension (CMS/HCC)Start: 01-05-2025 End: 11-00-6592Uurnuob encounter procedureG. Jessica Field DO Work Phone: [facility]-Pacemaker CheckStart: 01-05-2025 End: 45-71-7326ssvmfdijggW. Jessica Field DO Work Phone: [facility] Work Phone: Start: 59-45-9519Dob-patient / Non-visitG. Jessica Field DO Work Phone: [facility]-Heart Rhythm ClinicStart: 01-04-2025 End: 24-84-1875cholimkhxqNJVTQU R KAFTANNot AvailableStart: 01-03-2025 End: 99-77-0480Grxavcpws to same day surgery centerG. Jessica Field DO Work Phone: [facility] Main CampusStart: 01-03-2025 End: 61-46-0469dknhoackazM. Jessica Field DO Work Phone: [facility] Work Phone: Start: 12-31-2024 End: 94-69-7791cmdjfbkurwDDNMVKN N AUSTINNot AvailableStart: 12-29-2024 End: 59-72-4138umxbmfppweIRPETS LOWENot AvailableStart: 12-20-2024 End: 76-82-5847Ncstubt encounter procedureG. Jessica Field DO Work Phone: [facility] Ynw-Tes-Ogthpycy Testing Work Phone: Start: 12-20-2024 End: 90-66-5891bqpldkrwydL. Robert Rashida DO Work Phone: [facility] Work Phone: Start: 58-26-5010Eszzormkn for preprocedural laboratory examinationSunny Smith [facility] Physician GroupStart: 11-22-2024 End: 11-39-9009kpghjagudfJZBXFC R KAFTANNot AvailableStart: 10-25-2024 End: 23-28-3225Cnacmo flowsheetGecrispin R Myraftan DO Work Phone: [facility] 230Start: 10-25-2024 End: 06-61-8848Qacybi flowsheetGecrispin Talley Myraftan DO Work Phone: [facility] 230Start: 10-25-2024 End: 82-70-9058Hbdgfe outpatient visit 25 minutesGeorroshni Talley Myranicolasaan DO Work Phone: [facility] 230Comment on above: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, unspecified vessel or lesion type, unspecified whether oneida or transplanted heart (CMS/HCC) (Primary Dx); 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/HCC); Chronic kidney disease, stage 3b (HCC) (CMS/HCC); Sick sinus syndrome (CMS/HCC); Hypertensive heart disease with heart failure (CMS/HCC); Hypertension, unspecified type (CMS/HCC); Mixed hyperlipidemia (CMS/HCC); Stage 3a chronic kidney disease (HCC) (CMS/HCC); Type 2 diabetes mellitus with hyperglycemia, without long-term current use of insulin ([facility]/HCC); Raynaud's disease without gangreneStart: 10-25-2024 End: 56-16-1897nmoodgbiwjHVQFHG R KAFTANNot AvailableStart: 10-21-2024 End: 79-50-1906MsbpezBgxiaFrankie Cordon LPN Work Phone: [facility] 230Comment on above:MyalgiaStart: 66-23-6415Xsn-patient / Non-visitG. Jessica Renterialeighton DO Work Phone: [facility]-Heart Rhythm ClinicStart: 10-08-2024 End: 58-30-8169Thwufzz encounter procedureG. Jessica Renterianicolasafelix DO Work Phone: [facility]-Pacemaker CheckStart: 10-08-2024 End: 56-23-0201yzlwogrsavHwmpca Myles NoeliaFacility:[facility] Centertart: 10-05-2024 End: 89-98-9711Klrkon flowsheetBenjamin W Murcek DO Work Phone: noms ENT SANDUSKYStart: 10-05-2024 End: 73-55-7866Buhynv flowsheetBenjamin W Murcek DO Work Phone: noms ENT SANDUSKYStart: 10-05-2024 End: 39-45-6415Vawwoq outpatient visit 25 minutesBenjamin W Murcek DO Work Phone: noms ENT SANDUSKYComment on above:Obstructive sleep apnea (Primary Dx); Intolerance of continuous positive airway pressure (CPAP) ventilationStart: 10-05-2024 End: 38-56-4466amlontamhrZGLMUJWS W MURCEKNot AvailableStart: 10-04-2024 End: 58-20-7878Zzpwjwg encounter procedureG. Jessica Renterianicolasafelix DO Work Phone: [facility]-Electrodiagnostics Work Phone: Start: 10-04-2024 End: 30-81-0298yrxlxuaoqyK. Jessica FieldFacility:[facility] Centertart: 09-29-2024 End: 30-71-0898Bncgky Savita Connell DPM Work Phone: noms SWS PODIATRYStart: 09-29-2024 End: 13-41-0727Vzdbfd Savita Connell DPM Work Phone: noms SWS PODIATRYStart: 09-29-2024 End: 93-05-6230Ronzwrt encounter procedureSarah Connell DPM Work Phone: noms SWS PODIATRYComment on above:Onychomycosis (Primary Dx); Type II diabetes mellitus with neurological manifestations (CMS/HCC); Pain in both feetStart: 09-29-2024 End: 19-05-6954ysyyuqznexBEDLEDZGF H SMITHNot AvailableStart: 09-27-2024 End: 84-85-9706iactobpcnjZWAKNBAR Madelin URSULAot AvailableStart: 09-27-2024 End: 52-49-9989Ftoeeer encounter procedureBenchantalerasmo Vasquez DO Work Phone: NOMS EXT DEPComment on above:LOPEZ (obstructive sleep apnea) (Primary Dx)Start: 09-23-2024 End: 77-45-1036Mmjonlicz encounterNicjennie [facility] Cheng [facility] NEUROLOGYStart: 09-16-2024 End: 07-33-4313iukdfnaolrE. Jessica FieldFacility:[facility] Centertart: 09-06-2024 End: 74-71-8408Nflodl medical center barbourAutumn BLACKBURN Work Phone: N[facility] [place] [facility]TEStart: 09-06-2024 End: 89-82-1081Abzcfb [facility]adsdenjony BLACK[place]URN Work Phone: [facility]TEStart: 09-06-2024 End: 58-14-2495Byiyuj outpatient visit 25 minutesAnn Erik BLACKBURN Work Phone: NOM[facility] [facility] ROUTEComment on above: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) (Primary Dx); Obstructive sleep apnea syndromeStart: 09-06-2024 End: 28-07-7680oiihdeljitGPRX HILLNot AvailableStart: 08-26-2024 End: 61-41-5476YiypzdJxsuwj R Kaftan DO Work Phone: [facility] 230Comment on above:MyalgiaOnychomycosis Start: 08-23-2024 End: 67-03-3413Kgfadghsk encounterGeorroshni Mayank Field DO Work Phone: noms [facility] 230Start: 08-10-2024 End: 19-07-6283Crhwca outpatient new 45 minutesBenjamin W Sylvesterk DO Work Phone: noms ENT SANDUSKYComment on above:Obstructive sleep apnea (Primary Dx); Intolerance of continuous positive airway pressure (CPAP) ventilationStart: 07-18-2024 End: 31-89-2001EnquvyWrnpko R Kaftan DO Work Phone: noms [facility] 230Comment on above:MyalgiaStart: 07-07-2024 End: 24-57-3923ajztfwyuylRLIrvin Field Work Phone: [facility] Work Phone: Start: 07-07-2024 End: 93-45-2491Dokmibi encounter Joanna Field Work Phone: [facility]-Pacemaker CheckStart: 06-30-2024 End: 21-96-6144uiqvakgmcwNXCNV N COHEN MDFacility:AMBCVPAStart: 06-30-2024 End: 98-79-7967Zitrnrk encounter procedureCaoumou Connell DPM Work Phone: noms SWS PODIATRYComment on above:Onychomycosis (Primary Dx); Type II diabetes mellitus with neurological manifestations ([facility]/HCC)Start: 06-28-2024 End: 60-36-5379iioniyvwfoVJIrvin Field Work Phone: [facility] Work Phone: Start: 06-28-2024 End: 52-31-0697Zexzjul encounter Joanna Field Work Phone: [facility] Work Phone: Start: 06-27-2024 End: 36-73-8822mafdepnkreL ROBERT EVONFELIX DOFacility:AMBCVMHStart: 06-18-2024 End: 35-18-2011Veujqi flowsheetGeorge R Kaftan DO Work Phone: [facility] FM 230Start: 06-18-2024 End: 44-78-5060Qnbxfy flowsheetGeorge R Kaftan DO Work Phone: [facility] FM 230Start: 06-18-2024 End: 04-24-1576Dykubj outpatient visit 25 minutesGeorge R Myraftan DO Work Phone: [facility] FM 230Comment on above: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, unspecified vessel or lesion type, unspecified whether oneida or transplanted heart (CMS/HCC) (Primary Dx); Type 2 diabetes mellitus without complication, with long-term current use of insulin (CMS/HCC); 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); Mixed hyperlipidemia (CMS/HCC); Hypertension, unspecified type (CMS/HCC); Hypothyroidism, unspecified type (CMS/HCC)Start: 06-15-2024 End: 85-81-4196Eysduz Mirian García NP Work Phone: [facility] R[facility]TEStart: 06-15-2024 End: 59-87-1517Asybio Mirian García TELECOMMUNICATIONS SPECIALIST Work Phone: [facility] ROUTEStart: 06-15-2024 End: 23-33-7501Cruyhv OnlyGecrispin Field DO Work Phone: noms External Department UnsolicitedStart: 06-15-2024 End: 71-46-2203folpsjtiekLNIrvin Field Work Phone: [facility] Work Phone: Start: 06-15-2024 End: 00-94-6158Sthdkng encounter procedureDO Benedicto Field Work Phone: [facility] Work Phone: Start: 06-15-2024 End: 47-60-4828Wkaspr outpatient visit 25 minutesFegonzalo García TELECOMMUNICATIONS SPECIALIST Work Phone: noms [facility] R[facility]TEComment on above: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) (Primary Dx) Start: 06-07-2024 End: 13-58-9693Kcnulp outpatient visit 25 minutesGeorge Mayank Field DO Work Phone: noms [facility] 230Comment on above: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) (Primary Dx); Peripheral vascular disease (CMS/HCC); Hypertension, unspecified type (CMS/HCC); Hypothyroidism, unspecified type (CMS/HCC); Stage 3a chronic kidney disease (HCC) (CMS/HCC); 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, unspecified vessel or lesion type, unspecified whether oneida or transplanted heart (CMS/HCC); Type 2 diabetes mellitus with hyperglycemia, without long-term current use of insulin (CMS/HCC); MyalgiaStart: 06-01-2024 End: 46-27-7129dkabngdwteHQ Benedicto Field Work Phone: [facility] Work Phone: Start: 06-01-2024 End: 69-22-1214Ehagshu encounter procedureDO Benedicto Field Work Phone: [facility] Work Phone: Start: 05-27-2024 End: 22-61-8644Pbiirma encounter procedureG JESSICA FIELD DOOffice CVMA - MH C208 Start: 36-65-0839Zwg-patient / Non-visitDO Benedicto Field Work Phone: [facility] G[facility]ology Work Phone: Start: 02-09-2024 End: 49-34-6348Ewndftymu to same day surgery centerDO Benedicto Field Work Phone: [facility]-Digestive Health Work Phone: Start: 02-09-2024 End: 68-70-7137dapaylwpqsJO Benedicto Renterialeighton Work Phone: [facility] Work Phone: Start: 10-01-2023 End: 84-72-0382bqforjvlfyDE Benedicto Renterialeighton Work Phone: [facility] Work Phone: Start: 10-01-2023 End: 64-36-1095Bkijlrj encounter Joanna Benedicto Renterialeighton Work Phone: [phone] [place] [address] Ctr-Sleep Lab Work Phone: Start: 85-52-4353Enpuqf outpatient new 45 minutesDavid [facility] SouthStart: 07-02-2023 End: 03-20-6003zzbexacgvmDB Benedicto Renterialeighton Work Phone: [facility] Work Phone: Start: 07-02-2023 End: 17-74-2889Hybgilu encounter Joanna Field Work Phone: [phone] [place] [address] Ctr-Sleep Lab Work Phone: Start: 97-06-4624zoexqznxrvAQTNAHQ HALKER .Facility:H1 Start: 02-25-2023 End: 90-89-2685pcrxjuspovCAPPGWHIMCSX LAKSHMIPATHY .Facility:E8Dtgwf: 02-06-2023 End: 63-76-3695bkdtqibxtaDTJQAGAILKHB LAKSHMIPATHY .Facility:E6Ykarh: 01-09-2023 End: 08-14-9249yexnejffynWYHHQZTBMJJY LAKSHMIPATHY .Facility:Q6Ourkx: 01-02-2023 Jerson SPAULDING .Facility:S2Zevnl: 12-19-2022 End: 39-89-3411obzihqrjysCB SADIE S PERRY .Facility:J2Dodws: 85-45-5730Rt RenewalIrena C Kodz Work Phone: [phone]-Iwsobb [facility] Work Phone: Start: 12-02-2022 End: 69-70-2300cftwyqvgezL JESSICA FIELD DOFacility:51069Hssmg: 12-02-2022 End: 22-22-8161hewuoztvnyN JESSICA FIELD DOFacility:20304Fatew: 11-12-2022 End: 39-60-6190ntuwcysbcqFN SADIE S PERRY .Facility:B4Uqouy: 10-24-2022 ambulatoryDR SADIE S PERRY .Facility:O8Cjvzm: 33-06-2532Ur RenewalIrena C Kodz Work Phone: [phone]-TairmzUmmc [place] Work Phone: Start: 02-29-9099kodykbsifzGfxadoy Dangelo [facility] Facility:9153Start: 62-02-5335Zc RenewalIrena C Kodz Work Phone: [phone]-Gygyli [facility] Work Phone: Start: 10-01-2022 End: 57-18-3316ltvqcjelwkIL SADIE S PERRY .Facility:B6Kpcut: 09-03-2022 End: 08-48-4133mqfyqcyhmuOG SADIE S PERRY .Facility:L1Wpqjf: 75-63-2732Up RenewalIrena C Kodz Work Phone: [phone]-DyqnudUmmc [place] Work Phone: Start: 11-59-3264NBTOLJlgdy C Kodz Work Phone: [phone]-Sqxxyb [facility] Work Phone: Start: 27-99-3084Qdqwyr outpatient visit 25 minutes Ashlee C Kodz Work Phone: [phone]-Hzchev [facility] Work Phone: Start: 75-68-1532zzuhpsrsosQierxyx Dangelo [facility] Facility:9153Start: 05-23-2022 End: 22-60-9321yhdqucltzzLW SADIE Sohan [place] .Facility:Y2Yyxeh: 87-39-8762Zn RenewalIrena C Kodz Work Phone: [phone]-Pxckjt [facility] Work Phone: Start: 60-81-4038Usigquxhk encounterIrena C Kodz Work Phone: [phone]-Niepan [facility]Atl[facility] Work Phone: Start: 02-28-2022 End: 98-40-0831hjhkqvctwyKS SADIE S [place] .Facility:D8Pmdvc: 40-32-3915Aa RenewalIrena C Kodz Work Phone: [phone]-Fzqszq Medical [facility] Work Phone: Start: 29-78-6525Sd RenewalIrena C Kodz Work Phone: [phone]-Knlupu Medical [facility] Work Phone: Start: 38-05-3001PZWYIRxzaz C Kodz Work Phone: [phone]-Oypllp Medical [facility] Work Phone: Start: 63-81-9491DRQGQMzmwe C Kodz Work Phone: [phone]-Otcgtu Medical [facility] Work Phone: Start: 00-72-8154Yx RenewalIrena C Kodz Work Phone: [phone]-Tighdh Medical [facility] Work Phone: Start: 28-40-5304Kaoqfp outpatient visit 15 minutes [place] C Kodz Work Phone: [phone]-Auuugw Medical [facility] Work Phone: Start: 85-75-8043Mwnzapw encounter procedureIrena C Kodz Work Phone: [phone]-Knngbg Medical [facility] Work Phone: Start: 16-69-3837Nb RenewalIreemerita C Kodz Work Phone: [phone]-Lhgwls [facility] Work Phone: Start: 70-42-0366Qz [facility] HospitalIreemerita C Kodz Work Phone: [phone]-Dyuzya [facility] Work Phone: Start: 14-83-2602Zyspeqr encounter procedureB[facility]ing [facility] Work Phone: Start: 19-44-6639Eabjabm encounter procedureB[facility]ing Rock [facility] Work Phone: Start: 68-97-6837Upillis encounter procedureB[facility]ing Rock Hospital Work Phone: Procedures DateProcedureProcedure DetailPerforming ClinicianStart: 34-99-2884Dzhrk dip stick/tablet rgnt non-auto w/o micrscpGeorroshni Field DO Work Phone: Start: 11-23-2932Tzfiexg function panelCaoumou Connell DPM Work Phone: start: 26-46-1553RANXOMST STATUS REPORTCaoumou Connell DPM Work Phone: start: 67-37-6159IJRC SURGERYThomas Jony Cooley MD Work Phone: Start: 49-06-0355YDDC / NAIL BIOPSYEmily Miroslava Davies MD Work Phone: Start: 72-07-3139Znvgynyz blood count with white cell differential, automatedTom Field DO Work Phone: Start: 25-85-5907Enllsdodwrqlk metabolic panelTom Field DO Work Phone: Start: 49-88-5024Pynys panelTom Field DO Work Phone: Start: 68-05-5851YJKPKIGR STATUS REPORTGeorge R Kaftan DO Work Phone: Start: 78-90-4083Vkwwa albumin quantitativeGeorroshni Field DO Work Phone: Start: 04-86-7465Txwsg brachial pressure indexDO Benedicto Field Work Phone: Start: 93-27-9575EqxjybmplbdFQ Benedicto Renterialeighton Work Phone: Start: 21-79-6788Uun new/rplcmt prm pm w/transv eltrd atrial&ventG JESSICA FIELD DOStart: 86-82-3537Agvt plmt l hrt & arts w/njx & angio img s&iG JESSICA FIELD DOStart: 22-22-2286Pqwp Eluting Stent- Coronary Artery.G JESSICA FIELD DOStart: 14-46-0705Cyq trluml coronary angioplasty one art/branchG JESSICA FIELD DOStart: 35-35-1244eqwrpzqjrxq 1G JESSICA FIELD DO Comment on above:normal colonoscopyStart: 04-51-1677wknhb cataract surgeryG JESSICA FIELD DOStart: 77-05-0251vfmf cataract surgeryG JESSICA FIELD DO colonoscopy 2G JESSICA FIELD DOComment on above:about 3 years ago. no polyps. has appt in for another colonoscopy.five heart stentsG JESSICA FIELD DO History of cataract extractionHistory of cataract surgeryG JESSICA FIELD DO History of Cath Placement Of Stent 3Kjavad Mercado MDHistory of operative procedure on kneeHistory of bilateral knee replacementG JESSICA FIELD DOHistory of placement of stent for coronary artery diseaseH/O heart artery stentG JESSICA FIELD DOleft TKRG JESSICA FIELD DOleft total knee replacementG JESSICA FIELD DO right TKRG JESSICA FIELD DOTotal knee replacementKennetpadma Mercado MDComment on above:Bilateral; Plan of Treatment DateCare ActivityDetailAuthorStart: 00-18-7874Llwknkdl screeningDiabetes: Retinopathy ScreeningNOTX HealthcareStart: 47-43-3862[place] screening for protein Diabetes: Urine Protein ScreeningNOTX HealthcareStart: 52-92-6861Dkeblukx screeningDiabetes: Retinopathy ScreeningNOTX HealthcareStart: 05-20-2026Medicare Annual Wellness (AWV)Medicare Annual Wellness (AWV)[facility] HealthcareStart: 36-10-3110Tanke screening for proteinDiabetes: Urine Protein ScreeningNOTX HealthcareStart: 02-01-2026 End: 87-59-6265Gjutnkq encounter procedureNOTX SWS DERMStart: 11-01-2025 End: 67-56-8484Tvvozds encounter avjcshpzp99/20/2026 10:00 AM EST Procedure Visit [facility] [address] [place] [id number] Sarah Connell DPM [address] [place] [address] YOUNG Giron PodiatryStart: 10-19-2025 Urine screening for proteinDiabetes: Urine [facility]ening[facility] Start: 09-12-2025 End: 22-52-8989UMR W Auto Differential panel - BloodCBC and differential Lab Routine Type 2 diabetes mellitus with hyperglycemia, without long-term current use of insulin (HCC) Hypertension, unspecified type Stage 3a chronic kidney disease ([facility]-HCC) Expected: 09/12/2025 (Approximate), Expires: 11/11/2025NOTX HealthcareComment on above:Expected: 09/12/2025 (Approximate), Expires: 11/11/2025Start: 09-12-2025 End: 29-35-9728Upgvmutqkngrz metabolic 2000 panel - Serum or PlasmaComprehensive metabolic panel Lab Routine Type 2 diabetes mellitus with hyperglycemia, without long-term current use of insulin (HCC) Hypertension, unspecified type Stage 3a chronic kidney disease ([facility]-HCC) Expected: 09/12/2025 (Approximate), Expires: 11/11/2025NOTX HealthcareComment on above:Expected: 09/12/2025 (Approximate), Expires: 11/11/2025Start: 09-12-2025 End: 06-72-7709Aiicjjgobd A1c/Hemoglobin.total in BloodHemoglobin A1c Lab Routine Type 2 diabetes mellitus with hyperglycemia, without long-term current use of insulin (HCC) Expected: 09/12/2025 (Approximate), Expires: 11/11/2025NOTX HealthcareComment on above:Expected: 09/12/2025 (Approximate), Expires: 11/11/2025Start: 09-12-2025 End: 71-25-2130Wtpgjcmalkxb/Creatinine panel in random UrineMicroalbumin / creatinine urine ratio Lab Routine Stage 3a chronic kidney disease ([facility]-HCC) Expected: 09/12/2025 (Approximate), Expires: 11/11/2025[facility] Work Phone: Comment on above:Expected: 09/12/2025 (Approximate), Expires: 11/11/2025Start: 40-01-4541Wmxqimoevm A1c measurementDiabetes: Hemoglobin A5TESMV HealthcareStart: 67-34-2083HYGNB-19 Vaccine ( season)COVID-19 Vaccine ()[facility] HealthcareStart: 08-15-2025 End: 45-43-6802Edpbcxs encounter procedureNOFormerly [facility] 230 Comment on above:ArrivedStart: 08-08-2025 End: 47-02-4316Ltdgihm encounter miljenigc23/27/2025 11:40 AM EDT Office Visit Formerly [facility] [address] [place] [address] Tom Field DO [address] [place] [address] ArrivedFormerly [facility] 230Comment on above:ArrivedStart: 07-26-2025 End: 09-11-6464Ipjgmwq encounter procedureNOMS SWS PODIATRYComment on above: ArrivedStart: 06-25-2025 End: 67-15-8637Mgdkh metabolic 1998 panel - Serum or PlasmaBasic metabolic panel Lab Routine Altered mental status, unspecified altered mental status type Hypo tension, unspecified hypotension type Falls Expected: 06/25/2025 (Approximate), Expires: 07/24/2025NOTX HealthcareComment on above:Expected: 06/25/2025 (Approximate), Expires: 07/24/2025Start: 06-25-2025 End: 19-68-3165BPV W Auto Differential panel - BloodCBC and differential Lab Routine Altered mental status, unspecified altered mental status type Hypot ension, unspecified hypotension type Falls Expected: 06/25/2025 (Approximate), Expires: 07/24/2025NOTX Healthcare Work Phone: Comment on above:Expected: 06/25/2025 (Approximate), Expires: 07/24/2025Start: 06-24-2025 End: 26-05-7325Ijxacmqk identified in Urine by CultureUrine culture (clean catch) Microbiology Routine Altered mental status, unspecified altered mental s tatus type Expected: 06/24/2025 (Approximate), Expires: 06/24/2026[facility] HealthcareComment on above:Expected: 06/24/2025 (Approximate), Expires: 06/24/2026Start: 06-24-2025 End: 46-69-9071Tdhbqyk encounter klqvszydi97/12/2025 11:40 AM EDT Office Visit [facility] [address] [place] [address] Tom Field DO [address] [place] [address] ArrivedFormerly [facility] 230Comment on above:ArrivedStart: 63-90-2026Hfnre screening for protein Diabetes: Urine Protein ScreeningHUNTS[facility] M[facility] HealthcareStart: 06-14-2025 End: 24-35-1514Syahzra encounter [facility]NOSIER[facility] 230Comment on above: ArrivedStart: 68-32-2441Ugispqqss vaccinationInfluenza Vaccine (#1)[facility] HealthcareStart: 05-30-2025 End: 73-05-6533YBO W Auto Differential panel - BloodCBC and differential Lab Routine Type 2 diabetes mellitus without complication, with long-term current use of insulin 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, unspecified vessel orlesion type, unspecified whether oneida or transplanted heart (CMS/HCC) Hypertension, unspecified type (CMS/HCC) Mixed hyperlipidemia (CMS/HCC) Stage 3a chronic kidney disease (HCC) ([facility]/HCC) Type 2 diabetes mellitus with hyperglycemia, without long-term current use of insulin ([facility]/HCC) Erectile dysfunction, unspecified erectile dysfunction type Expected: 05/30/2025 (Approximate), Expires: 07/29/2025[facility] HealthcareComment on above:Expected: 05/30/2025 (Approximate), Expires: 07/29/2025Start: 05-30-2025 End: 02-02-2827Ovondjvtsemlj metabolic 2000 panel - Serum or PlasmaComprehensive metabolic panel Lab Routine Type 2 diabetes mellitus without complication, with long-term current use of insulin 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, unspecified vessel or lesion type, unspecified whether oneida or transplanted heart ([facility]/HCC) Hypertension, unspecified type ([facility]/HCC) Mixed hyperlipidemia ([facility]/HCC) Stage 3a chronic kidney disease (HCC) ([facility]/HCC) Type 2 diabetes mellitus with hyperglycemia, without long-term current use of insulin ([facility]) Erectile dysfunction, unspecified erectile dysfunction type Expected: 05/30/2025 (Approximate), Expires: 07/29/2025[facility] HealthcareComment on above: Expected: 05/30/2025 (Approximate), Expires: 07/29/2025Start: 05-30-2025 End: 18-84-8303Gwaagrmxub A1c/Hemoglobin.total in BloodHemoglobin A1c Lab Routine Type 2 diabetes mellitus without complication, with long-term current use of insulin Expected: 05/30/2025 (Approximate), Expires: 07/29/2025[facility] HealthcareComment on above:Expected: 05/30/2025 (Approximate), Expires: 07/29/2025Start: 05-30-2025 End: 67-85-5230Egvtkmwovwxf/Creatinine panel in random UrineMicroalbumin / creatinine urine ratio Lab Routine Type 2 diabetes mellitus without complication, with long-term current use of insulin Expected: 05/30/2025 (Approximate), Expires: 07/29/2025[facility] Healthcare Work Phone: Comment on above:Expected: 05/30/2025 (Approximate), Expires: 07/29/2025Start: 41-65-2732Rwdncrtzdn A1c measurementDiabetes: Hemoglobin M1AHKEH HealthcareStart: 05-05-2025 End: 20-97-7157Tpblxhefkzv [Units/volume] in Serum or PlasmaTSH Lab Routine Hypothyroidism, unspecified type Expected: 05/05/2025 (Approximate), Expires: 06/03/2025NOTX HealthcareComment on above:Expected: 05/05/2025 (Approximate), Expires: 06/03/2025Start: 05-05-2025 End: 21-64-2249Nsxjhtssz (T4) free [Mass/volume] in Serum or PlasmaT4, free Lab Routine Hypothyroidism, unspecified type Expected: 05/05/2025 (Approximate), Expires: 06/03/2025NOTX HealthcareComment on above:Expected: 05/05/2025 (Approximate), Expires: 06/03/2025Start: 05-05-2025 End: 87-92-8676Etibojzqbnsxmmlh (T3) [Mass/volume] in Serum or PlasmaT3 Lab Routine Hypothyroidism, unspecified type Expected: 05/05/2025 (Approximate), Expires: 06/03/2025NOTX HealthcareComment on above:Expected: 05/05/2025 (Approximate), Expires: 06/03/2025Start: 05-04-2025 End: 76-53-5964WT Knee - right 3 [facility] Work Phone: Comment on above:Expected: 05/04/2025, Expires: 05/04/2026Start: 05-04-2025 End: 12-42-9528Ulesqfi encounter doefqrffp64/23/2025 10:40 AM EDT Office Visit [facility] [address] [place] [phone] Tom Field DO [address] [place] [address] [facility]NOS[facility] 230Comment on above:ArrivedStart: 04-25-2025 End: 00-23-7608Omdhcol encounter mlduinfat48/14/2025 10:15 AM EDT Procedure Visit [facility] [address] [place] [address] Sarah Connell DPM [address] [place] [address] [facility]OM[facility]ER PODIATRYStart: 04-06-2025 End: 14-22-4219Xxmqayw encounter cjjgleyui93/25/2025 1:30 PM EDT Office Visit [facility] [address] [place] [phone] Silvestre Cooley MD [address] [place] [address] [facility] DERMStart: 97-82-3123Sgcco screening for proteinDiabetes: Urine Protein ScreeningNOTX HealthcareStart: 03-23-2025 End: 27-93-0261Sngppdu encounter qiuzmvdat20/11/2025 10:00 AM EDT Office Visit [facility] [address] [place] [phone] Hillary Wilhelm PA [address] [place] [address] KRISTY HADDADEVUEStart: 03-03-2025 End: 56-65-9345Qqdspqz encounter pvhaiwzti72/22/2025 8:40 AM EDT Office Visit [facility] [address] [place] [address] Hillary Wilhelm PA [address] [place] [address] KRISTY HADDADEVUEStart: 03-01-2025 End: 81-46-7607Bevtbrc encounter procedureNOSUTTER [facility] 230Comment on above: ArrivedStart: 02-22-2025 End: 25-17-7424HXV W Auto Differential panel - BloodCBC and differential Lab Routine 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/HCC) Chronic kidney disease, stage 3b (HCC) (CMS/HCC) Sick sinus syndrome (CMS/HCC) Hypertensive heart disease with heart failure (CMS/HCC) 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,unspecified vessel or lesion type, unspecified whether oneida or transplanted heart (CMS/HCC) Hypertension, unspecified type (CMS/HCC) Mixed hyperlipidemia (CMS/HCC) Stage 3a chronic kidney disease (HCC) (CMS/HCC) Type 2 diabetes mellitus with hyperglycemia, without long-term current use of insulin(CMS/HCC) Raynaud's disease without gangrene Expected: 02/22/2025 (Approximate), Expires: 10/25/2025[facility] Comment on above:Expected: 02/22/2025 (Approximate), Expires: 10/25/2025Start: 02-22-2025 End: 10-16-8054Moholvopshzfa metabolic 2000 panel - Serum or PlasmaComprehensive metabolic panel Lab Routine 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/HCC) Chronic kidney disease, stage 3b (HCC) (CMS/HCC) Sick sinus syndrome (CMS/HCC) Hypertensive heart disease with heart failure (CMS/HCC) 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, unspecified vessel or lesion type, unspecified whether oneida or transplanted heart (CMS/HCC) Hypertension, unspecified type (CMS/HCC) Mixed hyperlipidemia (CMS/HCC) Stage 3a chronic kidney disease (HCC) (CMS/HCC) Type 2 diabetes mellitus with hyperglycemia, without long-term current use of insulin (CMS/HCC) Raynaud's disease without gangrene Expected: 02/22/2025 (Approximate), Expires: 10/25/2025 [facility] HealthcareComment on above:Expected: 02/22/2025 (Approximate), Expires: 10/25/2025Start: 02-22-2025 End: 55-27-4578Iqhqddwkrq A1c/Hemoglobin.total in BloodHemoglobin A1c Lab Routine 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/HCC) Expected: 02/22/2025 (Approximate), Expires: 10/25/2025NOTX HealthcareComment on above:Expected: 02/22/2025 (Approximate), Expires: 10/25/2025Start: 02-22-2025 End: 32-78-2994Vulay 1996 panel - Serum or PlasmaLipid panel Lab Routine 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, unspecified vessel or lesion type, unspecified whether oneida or transplanted heart ([facility]) Hypertension, unspecified type ([facility]) Expected: 02/22/2025 (Approximate), Expires: 10/25/2025[facility] HealthcareComment on above:Expected: 02/22/2025 (Approximate), Expires: 10/25/2025Start: 02-22-2025 End: 10-37-0573Uwrhzefvunsc/Creatinine panel in random UrineMicroalbumin / creatinine urine ratio Lab Routine Type 2 diabetes mellitus with diabetic chronic kidney disease ([facility]) Expected: 02/22/2025 (Approximate), Expires: 10/25/2025[facility] Work Phone: Comment on above:Expected: 02/22/2025 (Approximate), Expires: 10/25/2025Start: 02-01-2025 End: 71-90-6028Sbligty encounter procedureNOMS SWS DERMComment on above:Arrived Start: 01-18-2025 End: 57-64-6920Jbuupwi encounter procedureNOMS SWS PODIATRYComment on above: ArrivedStart: 04-77-6828Ftcessqsre A1c measurementDiabetes: Hemoglobin W2PQNEO HealthcareStart: 82-92-6526SajyjgmuqCommunity Regional Medical Centertart: 01-03-2025 Neurostimulation of cranial nerveOR Inspire Hypoglossal Nerve Stim Imp (Not Applicable)[facility] Centertart: 12-29-2024 End: 64-15-8697Kmylkzf encounter procedureNOTX [place] ROUTEStart: 01-22-2025Medicare Annual Wellness (AWV)Medicare Annual Wellness (AWV)[facility] HealthcareStart: 11-01-2024 End: 57-63-7000Kxbrpdc encounter qezrmtdih99/20/2025 8:40 AM EST Office Visit [facility] [place] [facility] [address] [facility] [place] [phone] Amada García NP [address] [place] [address] [facility] R[facility]TEStart: 10-25-2024 End: 36-98-6758Usuazeb encounter procedureNOMS SWS FM 230Comment on above:Type 2 diabetes mellitus with diabetic chronic kidney disease ([facility]/HCC); Chronic kidney disease, stage 3b (HCC) ([facility]/HCC); Sick sinus syndrome ([facility]/HCC); Hypertensive heart disease with heart failure ([facility]/HCC)Start: 10-18-2024 End: 95-81-4831RBO W Auto Differential panel - BloodCBC and differential Lab Routine Mixed hyperlipidemia ([facility]/HCC) Hypertension, unspecified type ([facility]/HCC) Hypothyroidism, unspecified type ([facility]/HCC) Expected: 10/18/2024 (Approximate), Expires: 06/18/2025NOTX HealthcareComment on above:Expected: 10/18/2024 (Approximate), Expires: 06/18/2025Start: 10-18-2024 End: 84-54-1818Jpbtbukkxdvsw metabolic 2000 panel - Serum or PlasmaComprehensive metabolic panel Lab Routine 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, unspecified vessel or lesion type, unspecified whether oneida or transplanted heart ([facility]) Type 2 diabetes mellitus without complication, with long-term current use of insulin ([facility]) 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 (HCC) ([facility]) Expected: 10/18/2024 (Approximate), Expires: 06/18/2025NOTX HealthcareComment on above:Expected: 10/18/2024 (Approximate), Expires: 06/18/2025Start: 10-18-2024 End: 84-28-2381Vdlvcjjkhq A1c/Hemoglobin.total in BloodHemoglobin A1c Lab Routine Type 2 diabetes mellitus without complication, with long-term current use of insulin ([facility]/HCC) Expected: 10/18/2024 (Approximate), Expires: 06/18/2025 [facility] HealthcareComment on above:Expected: 10/18/2024 (Approximate), Expires: 06/18/2025Start: 10-18-2024 End: 28-77-1353Hyxlapmzftiw/Creatinine panel in random UrineMicroalbumin / creatinine urine ratio Lab Routine 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pectoris, unspecified vessel or lesion type, unspecified whether oneida or transplanted heart ([facility]/HCC) Type 2 diabetes mellitus without complication, with long-term current use of insulin (CMS/HCC) 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) Hypertension, unspecified type (CMS/HCC) Expected: 10/18/2024 (Approximate), Expires: 06/18/2025[facility] Work Phone: Comment on above:Expected: 10/18/2024 (Approximate), Expires: 06/18/2025Start: 10-05-2024 End: 22-78-5453Ohhziog encounter procedureNOMS ENT SANDUSKYComment on above: ArrivedStart: 09-29-2024 End: 43-27-1861Sehjrya encounter procedureNOMS SWS PODIATRYComment on above: ArrivedStart: 09-27-2024 End: 17-09-1233Nsmcbjp encounter gfysmydbo58/16/2024 10:20 AM EST Office Visit [facility] [address] [facility] [address] [place] [address] Tom Field, [address] [facility] 230 [place] [address] [facility] 230Start: 97-42-6716Uqbuokvkhj A1c measurementDiabetes: Hemoglobin W4ETEPV HealthcareStart: 09-07-2024 End: 14-84-6225Jyereya encounter dqeftievf11/26/2024 10:00 AM EST Office Visit [facility] [address] [place] [address] Amada García, TELECOMMUNICATIONS SPECIALIST [address] [place] [address] NOMS [place] [address] ROUTEStart: 09-06-2024 End: 46-15-5903Jputqqj encounter procedureNOMS [place] [facility] ROUTEComment on above:ArrivedStart: 08-10-2024 End: 12-01-6205Vwxauwo encounter vcxijcfds72/29/2024 9:30 AM EDT Office Visit [facility] [place] [address] [place] [phone] Sunny Vasquez W, DO [address] [place] [address] N[facility]S ENT SANDUSKYStart: 06-28-2024 End: 24-00-7611Qbkxczo encounter wdgxlipvc89/16/2024 8:00 AM EDT Procedure Visit [facility] [address] [place] [address] Sarah Connell DPM [address] [place] [address] NOMS SWS PODIATRYStart: 06-18-2024 End: 69-46-3142Oacikgo encounter qcgntogll72/06/2024 12:20 PM EDT Office Visit [facility] [address] [place] [address] Tom Field, DO [address] [place] [address] [facility] 230Comment on above:ArrivedStart: 06-15-2024 End: 24-17-5710Nafkfyz encounter procedureNOMS [facility] ROUTEComment on above:ArrivedStart: 31-05-8854Xsddcjyvb vaccinationInfluenza Vaccine (#1)[facility] HealthcareStart: 17-59-6602Hekws brachial pressure indexCommunity Regional Medical Centertart: 76-37-9293Fqqkxvktbi A1c measurementDiabetes: Hemoglobin B1NZFJY HealthcareStart: 39-23-0692VjcifecmoCommunity Regional Medical Centertart: 56-85-1074CXP, Provider: Poli Mercado, Status: Pen, Time: 9:45 AMFUV, Provider: Poli Mercado, Status: Pen, Time: 9:45 AM-[facility] Work Phone: Start: 81-71-3429GBJ, Provider: Poli Mercado, Status: Pen, Time: 11:00 AMFUV, Provider: Poli Mercado, Status: Pen, Time: 11:00 AM[facility] Work Phone: Start: 85-53-0491PNT, Provider: Poli Mercado, Status: Pen, Time: 10:30 AMFUV, Provider: Poli Mercado, Status: Pen, Time: 10:30 AM[facility] Work Phone: Start: 03-08-3540NIR, Provider: Poli Mercado, Status: Pen, Time: 10:00 AMFUV, Provider: Poli Mercado, Status: Pen, Time: 10:00 AMGreen[facility] Work Phone: Start: 82-28-3482GLuH/Tdap/Td Vaccines (2 - Td or Tdap)DTaP/Tdap/Td Vaccines (2 - Td or Tdap)[facility]S HealthcareDermatopathology exam Dermatopathology exam Pathology and Cytology Timed Neoplasm of unspecified behavior of bone, soft tissue, and skin Release Upon Ordering for 1 Occurrences starting 02/01/2025NOTX Healthcare Work Phone: comment on above:Release Upon Ordering for 1 Occurrences starting 02/01/2025[facility] EducationL[facility] Work Phone: [facility] referralL[facility] Work Phone: [facility] Immunizations Immunization DateImmunizationNotesCare ZbyjzsubXfpbdlft31-56-9990KKVYK-96 (PFIZER) [phone] 12Y and olderG. Jessica Field DO Work Phone: [facility]10-31-2024Seasonal trivalent influenza vaccine, adjuvanted, preservative freeNicholas Cheng [facility]'s Sleep CenterDhqdruqzco14-07-7369ipfllzddd virus vaccine, unspecified formulationSarah Connell DPM Work Phone: [facility]OPark[facility] CenterFdlfnjuyxb72-75-6822LOI, recombinant, protein subunit RSVpreF, adjuvant reconstitu, 120mcg/0.5mL, PF (Arexvy)Sunny Vasquez DO Work Phone: [facility] HospitalFbqhyesuwl23-46-7845JJZHA-91 (PFIZER) 12Y and olderG. Jessica Field DO Work Phone: [facility]11-15-2023Influenza, Seasonal, Quadrivalent, AdjuvantedGeorroshni Field DO Work Phone: NOParkland Health CenterQdzlxkxuto20-03-9433hjcmqspcg virus vaccine, unspecified formulationGeorroshni Field DO Work Phone: NOParkland Health CenterDoaonuhsig06-06-1970Zgkubvwbriwf Conjugate PCV 20 Tom Rashida DO Work Phone: NOParkland Health CenterYxoiddcwae27-56-0462Orbeshl Bivalent Booster VaccinationGeorroshni Field DO Work Phone: NOParkland Health CenterJusviccyfs02-36-1024Fujnit COVID-19 Vac Bivalent 30 MCG/0.3ML Intramuscular SuspensionIrena C Kodz Work Phone: [facility]10-10-2022Influenza, High-dose Seasonal, Quadrivalent, Preservative FreeGeorroshni Field DO Work Phone: noParkland Health CenterXqjqthtqjb66-45-3326tgdqahlpz, injectable, quadrivalent, contains preservativeIrena C Kodz Work Phone: [phone]-OnyqzcUmmc [facility] Work Phone: [phone] COVID-19 Vaccine 100 MCG/0.5ML Intramuscular SuspensionIrena C Kodz Work Phone: [facility]10-28-2021Moderna COVID-19 Vaccine 100 MCG/0.5ML Intramuscular SuspensionIrena C Kodz Work Phone: [facility]10-08-2021Fluzone High-Dose Quadrivalent 0.7 ML Intramuscular Suspension Prefilled SyringeIrena C Kodz Work Phone: [phone]-YdipxiForrest General Hospital Work Phone: [phone], high dose seasonal, preservative-freeGeorge Kaftan DO Work Phone: noParkland Health CenterMxezicrugp33-39-3185Yrfvovj COVID-19 Vaccine 100 MCG/0.5ML Intramuscular SuspensionIrena C Kodz Work Phone: [facility]01-26-2021Moderna COVID-19 Vaccine 100 MCG/0.5ML Intramuscular SuspensionIrena C Kodz Work Phone: [facility]12-23-2020zoster vaccine recombinantIrena C Kodz Work Phone: [phone]-FmaootUmmc [facility] Work Phone: [phone]) [phone] vaccine recombinantIrena C Kodz Work Phone: [phone]-KrqmofUmmc [facility] Work Phone: [phone] Quadrivalent 0.5 ML Intramuscular Prefilled SyringeIrena C Kodz Work Phone: [phone]-UctnphUmmc [facility] Work Phone: [phone], high dose seasonal, preservative-freeKenneth SaskiaMillie E. Hale HospitalP-[facility] Work Phone: Comment on above:Series:81-33-9670wvanmxnss, injectable, quadrivalent, preservative freeGeorge Kaftan DO Work Phone: NOParkland Health CenterMqcxzdqdur66-18-2370aqaumofqtnzi polysaccharide vaccine, 23 valent; Translations: [Pneumovax 23]Ashlee C Kodz Work Phone: [facility] HealthcareComment on above:Result Comment: LEFT FCMJBJK65-28-6808cdmxtfkdf, high dose seasonal, preservative-freeIrena C Kodz Work Phone: [phone]-NsggkbUmmc [place] Work Phone: [phone]m, injectable, quadrivalent, preservative freeGeorge Kaftan DO Work Phone: NOTX HealthcareComment on above:Result Comment: [07/16/2018] [facility] HospitalTzbtuanm40-33-5780zahbubdcz, high dose seasonal, preservative-freeIrena C Kodz Work Phone: [phone]-VznvauUmmc [place] Work Phone: [phone]kk, injectable, quadrivalent, preservative freeGeorge Kaftan DO Work Phone: noParkland Health CenterWfnjuhkdge62-72-5276nqodbujis, high dose seasonal, preservative-freeIrena C Kodz Work Phone: [phone]-HymxmuUmmc [place] Work Phone: [phone], injectable, quadrivalent, preservative freeGeorge Kaftan DO Work Phone: noParkland Health CenterZqwipxrlrb00-89-0876dyewcqr toxoid, reduced diphtheria toxoid, and acellular pertussis vaccine, adsorbedGeorge Kaftan DO Work Phone: noParkland Health CenterRhbpgriujl71-16-1673tuiqizpet, high dose seasonal, preservative-freePoli Mercado [facility] [place] Work Phone: Comment on above:Series:19-37-8009hvitfwgpixdb polysaccharide vaccine, 23 valentKenneth Nekl [facility] [place] Work Phone: Comment on above:Series:06-79-6282ldixqu vaccine, live Poli Nekl [facility] [place] Work Phone: Comment on above:Series: Payers DatePayer CategoryPayerEncompass Health [facility] [id number]-afe [id number] 2023Unknown2009Medicare 14-27-2628AyjotdiBatson Children'S Hospi[id number] 1960Unknown [id number] 2.16.840.1.687815.3.579.2.53621-21-7414 [id number] 2.16.840.1.201716.3.57[id number] 2.16.840.1.000521.3.57[id number] 2.16.840.1.410268.3.579.2.81072-22-7899Vpsvmzi4345075 2.840.1.293171.3.579.2.97597-45-2596Ylfyjos1096737 2..840.1.160297.3.579.2.54099-42-6162Ufykysg8338078 2.16.840.1.775375.3.579.2.34770-74-8133Dfmdphq2015341 2.16.840.1.505122.3.579.2.95453-72-5158Kakrlem4908960 2.16.840.1.037945.3.579.2.09719-57-9286Fqeelqp0023193 2.16.840.1.512819.3.579.2.41058-91-9619Gceinfe8087992 2.16.840.1.453452.3.579.2.25645-25-4965Klckazq5223511 2.16.840.1.576476.3.579.2.18846-26-5581Zhzotmr7340686 2.16.840.1.075276.3.579.2.87225-26-7114Txgarpr8327758 2.16.840.1.749586.3.579.2.34031-08-5097Kabtybi4634403 2.16.840.1.065685.3.579.2.58835-83-8641Qepaqqb0351777 2.16840.1.732170.3.579.2.48247-20-7357Gkicgdz36980054 2.16840.1.584613.3.579.2.97916-87-9755Rgzsins59672273 2.16840.1.686717.3.579.2.98104-78-8281Pssapls75938814 2.16840.1.119541.3.579.2.88562-76-2537Pyjhmjb39398133 2.840.1.776113.3.579.2.34852-81-5931Nqvsyrk49912615 2.16840.1.331377.3.579.2.843021-30-9453Ocugekc33488608 2.840.1.344393.3.579.2.246749-59-6061Yyrxixa45365540 2.840.1.188855.3.579.2.968814-50-9087Rrynsgb06442146 2.16840.1.730157.3.579.2.862467-52-5919Rqlomyq16784674 2.16.840.1.491500.3.579.2.792271-29-3746Fwvcsaj20828688 2.16840.1.632066.3.579.2.337382-55-6667Zmfnsuq50939731 2.16.840.1.396051.3.579.2.125180-89-6239Dnemjsz13031484 2.16.840.1.867030.3.579.2.154579-03-1628Uuujihb04801564 2.16.840.1.289187.3.579.2.390969-70-6939Andexme91029754 2.16840.1.418240.3.579.2.142173-02-6412Kbwvzky76568897 2.16840.1.973273.3.579.2.048585-57-9886Kwrsfmc5995193 2.16840.1.782910.3.579.2.982245-96-1680Nmsnmbs9376613 2.16840.1.796386.3.579.2.772398-94-7341Talvyyq6915240 2.160.1.014383.3.579.2.476681-47-3689Xzviuxs9541136 2.16840.1.262337.3.579.2.874333-67-2998Kipihfe4297545 2.840.1.694370.3.579.2.080382-46-9219Nfgdrgf0909257 2.840.1.245636.3.579.2.478733-34-6639Knfqpqf4092929 2.160.1.738949.3.579.2.280987-84-0212Jvjiemv8183603 2.16840.1.962726.3.579.2.032357-76-5545Qnilehu8932939 2.16840.1.273747.3.579.2.106559-64-9110Xbldogi4710062 2.16840.1.946216.3.579.2.191695-43-0946Fshanin6118535 2.16840.1.757018.3.579.2.348756-96-0398Sakchkq7473352 2..840.1.401145.3.579.2.127981-63-5740Zzqiymk8363930 2.16.840.1.151201.3.579.2.917965-34-8244Ybkyffa3490712 2.16.840.1.470787.3.579.2.1259MedicareMedicare [id number] 5410c08g-1549-9818-bq03-9a6723a151msXbqtzae11462455 2.16.840.1.570287.3.579.2.490Fddskwn85216982 2.16840.1.337981.3.579.2.531 Odahkwq55782465 2.840.1.384477.3.579.2.418Yufswmd42889481 2.16.840.1.829176.3.579.2.321Cyaukkq91969869 2.16.840.1.170727.3.579.2.531 Afhoqat04703726 2.16.840.1.172869.3.579.2.301Muzyfjr36012577 2.16.840.1.876535.3.579.2.943Amwjhgo87116621 2.840.1.977523.3.579.2.531 Gqhrcjd44572578 2.16840.1.182148.3.579.2.531 Social History DateTypeDetailFacilityStart: 03-17-2024 End: 88-83-9015Zuvhn Drank AlcoholNever Drank AlcoholNorth Kansas City HospitalComment on above:Quit 1987 (1PPD x 20years);Start: 03-17-2024 End: 68-33-7222Bxb [facility] HealthcareStart: 06-04-2020 End: 21-17-2837Pcvygff smoking status NHISEx-smoker (finding)[facility] HospitalComment on above:quit 1988Start: 16-10-9884Rgn Assigned At [facility]Community [facility] Centertart: 05-15-2023 End: 85-29-3787Jyjwexn smoking status NHISNever smoked tobaccoNOMS Healthcare Start: 05-15-2023 End: 74-58-1547Teawpzz use and exposureSmokeless tobacco non-userNOMS Healthcare Start: 06-30-2024 End: 47-93-1956Chzvdzcsk beverage intakeEx-drinker (finding)[facility] Start: 51-03-5903Jdi often do you need to have someone help you when you read instructions, pamphlets, or other written material from your doctor or pharmacy [SILS]RarelyNOMS HealthcareDo you belong to any clubs or organizations such as scientologist groups, TESAROs, fraIntegrated Media Measurement (IMMI) or athletic groups, or school groups?NoNOMS HealthcareAre you now , , , , never or living with a partner?MarriedNOMS HealthcareHow often to you have a drink containing alcohol?Monthly or lessNOMS HealthcareHow many standard drinks containing alcohol do you have on a typical day?1 or 2NOMS HealthcareHow often do you have 6 or more drinks on 1 occasion?NeverNOMS HealthcareDo you feel stress - tense, restless, nervous, or anxious, or unable to sleep at night because yourmind is troubled all the time - these days [OSQ]Not at allNOMS Healthcare(I/We) worried whether (my/our) food would run out before (I/we) got money to buy more.Never trueNOMS HealthcareStart: 71-15-5595Lrwqnap Comment caffeine intake : noneNOMS HealthcareStart: 75-81-5889Udc assigned at birthNot on fileNOMS HealthcareStart: 12-08-2007 End: 13-18-0209FjkJjmg (finding)[facility] HospitalHistory of tobacco useCurrent smokerNOMS HealthcareHistory of tobacco useCigarette Smoker NOMS HealthcareHow often do you need to have someone help you when you read instructions, pamphlets, or other written material from your doctor or pharmacy [SILS]RarelyNOMS HealthcareSexual OrientationOffice [facility] NEGATED: Highlighted row--[facility] Work Phone: Medical Equipment Procedure CodeEquipment CodeEquipment Original TextEquipment IdentifierDates Implantation (procedure)Implantation Unknown 03/26/21 Non Biological Unknown {[id number]{17}[id number]{21}[id number] FDAStart: 04-16-9115Uimgtzttwnrn (procedure)Implantation Unknown 03/26/21 Non Biological Unknown {[id number]{[id number]{21}[id number] FDAStart: 06-72-2304Zaohrrjsfwbv (procedure)Implantation Unknown 03/26/21 Non Biological Unknown {01}[id number]{17}[id number]{21}[id number] FDAStart: 34-57-9291OY Pen Needle Mini U/F 31G X 5 MM use once a day as directed Quantity: 1 Refills: 2 Poli Mercado MD Start : 17-Jan-2014 Active 100 Unit BoxStart: 02-69-7966YpynDbplc InsuLinx Test In Vitro Strip TEST ONCE DAILY *E11.9* Quantity: 100 Refills: 3 Poli Mercado MD Start : 23-Feb-2014 ActiveStart: 63-65-5059HQ Pen Needle Mini U/F 31G X 5 MM use once a day as directed Quantity: 1 Refills: 2 Poli Mercado MD Start : 17-Jan-2014 Active 100 Unit BoxStart: 03-49-5132VzmrJsjvx InsuLinx Test In Vitro Strip TEST ONCE DAILY *E11.9* Quantity: 100 Refills: 3 Poli Mercado MD Start : 23-Feb-2014 ActiveStart: 16-55-5124Fup daily as sduamufx92526709Gomgx: 02-02-2024 Goals DatePatient GoalDesired Activity/State Functional Status FljcXhhzndschbCvsmpaNfhbamag86-53-0813Rrcknun Health Questionnaire 2 item (PHQ- 2) [Reported][facility] HospitalWxgxohnugt24-83-5847Ubcvbuu Health Questionnaire 2 item (PHQ- 2) [Reported][facility] [place] HospitalNhzvawremt28-17-3980Rpknxxn Health Questionnaire 2 item (PHQ- 2) [Reported][facility] Ejkochbbht34-33-4031Nwcjhzx Health Questionnaire 2 item (PHQ- 2) [Reported][facility] HealthcareNOMS HealthcareNEGATED: Highlighted rowFunctional performanceFunctional status health issues are not documented DiseaseMP-[facility] Work Phone: Mental Status DateAssessmentResultFacilityNEGATED: Highlighted rowCognitive function [Interpretation]Cognitive status health issues are not documented DiseaseMP- [facility] Work Phone: Clinical Notes 02-28-2022 to 08-15-2025 Note Date & SjpoGuxrMednycwk76-05-4745 History of Present illness Narrative* Tom Field DO - 08/15/2025 12:40 PM EST Images from the original note were not included. Subjective ?Quick Links Last Note in Specialty Snapshot Current Meds Patient ID: Ramon Mariee is a 80 y.o. male who presents for Cellulitis, Tinea Cruris. Pt presents to the office to follow up re tinea cruris. Tinea Cruris: Prescribed nystatin powder and cipro( still on) to apply to groin area. Pt states rash has improved. Denies any other concerns. Medication Documentation Review Audit Reviewed by Frankie Cordon LPN (Licensed Nurse) on 08/08/25 at 1154 Medication Order Taking? Sig Documenting Provider Last Dose Status acetaminophen (Tylenol) 500 MG tablet [id number] Yes Take 1,000 mg by mouth Daily Active amLODIPine (Norvasc) 5 MG tablet [id number] Yes Take 1 tablet (5 mg) by mouth 1 (one) time each day at the same time Tom Field DO Active Aspirin Low Dose 81 MG EC tablet [id number] Yes TAKE 1 TABLET BY MOUTH EVERY DAY Tom Field DO Active atorvastatin (Lipitor) 20 MG tablet [id number] Yes Take 1 tablet (20 mg) by mouth at bedtime Tom Proctor DO Active carbidopa-levodopa (Sinemet) 25-100 MG tablet [id number] Yes TAKE 2 TABLET BY MOUTH AT 8AM, 2 tablet at eleven, 2 tablets at 2PM, AND 2 tablet at 5PM Tom R Kaftan, DO Active Continuous Glucose Sensor (FreeStyle Lillian 2 Sensor) [facility] [id number] Yes 1 Units every 14 (fourteen) days Tom Field DO Active dapagliflozin-metFORMIN ER (Xigduo XR) 10-500 MG [id number] Yes Take 1 tablet by mouth in the morning. Take with meals. Tom Field DO Active entacapone (Comtan) 200 MG tablet [id number] Yes Take 200 mg by mouth in the morning and 200 mg in the evening and 200 mg before bedtime. Tom Field DO Active insulin glargine (Lantus SoloStar) 100 UNIT/ML pen [id number] Yes IF BLOOD SUGAR BELOW 150 DO NOT TAKE, IF BLOOD SUGAR BETWEEN 150 AND 250 INJECT 5 UNITS UNDER THE SKIN. IF BLOOD SUGAR OVER 250 INJECT 10 UNITS ONLY ONCE DAILY. Tom Field DO Active insulin pen needle (B-D UF III MINI PEN NEEDLES) 31G x 5 mm [facility] [id number] Yes Use daily as directedGecrispin Field DO Active lisinopril 5 MG tablet [id number] Yes TAKE 1 TABLET BY MOUTH EVERY DAY Tom Field DO Active metoprolol succinate XL (Toprol-XL) 25 MG 24 hr tablet [id number] Yes Take 1 tablet (25 mg) by mouth Daily Tom Field DO Active mirabegron ER (Myrbetriq) 50 MG 24 hr tablet [id number] Yes Take 50 mg by mouth 1 (one) time each dayat the same time Active psyllium (Metamucil) 0.36 g capsule [id number] Yes Take 6 capsules by mouth Daily Historical Provider, Active sildenafil (Viagra) 100 MG tablet [id number] Yes Take 1 tablet (100 mg) by mouth Daily as needed for erectile dysfunction Tom Field DO Active tamsulosin (Flomax) 0.4 MG 24 hr capsule [id number] Yes Take 0.4 mg by mouth at bedtime Active terbinafine (LamISIL) 250 MG tablet [id number] Yes Take 1 tablet (250 mg) by mouth Daily Sarah Connell DPM Active traMADol (Ultram) 50 MG tablet [id number] Yes Take 1 tablet (50 mg) by mouth every 8 (eight) hours ifneeded for severe pain Tom Field, DO Active Review of Systems ?Quick Review Review Full History Meds - Current Medications[1] --- PMH - Arthritis Diabetes (HCC) Eczema Heart attack (HCC) Hypercholesteremia Hypertension Squamous cell skin cancer Objective ?Quick Links Timeline (Adult) Labs Imaging Results Review Trend Vitals ?? Avoid pulling in long tables of results. Comment on relevant results to support your medical decision making. There were no vitals taken for this visit. Physical Exam Constitutional: Appearance: Normal appearance. HENT: Head: Normocephalic and atraumatic. Eyes: Extraocular Movements: Extraocular movements intact. Pupils: Pupils are equal, round, and reactive to light. Cardiovascular: Rate and Rhythm: Normal rate and regular rhythm. Heart sounds: No murmur heard. Pulmonary: Effort: Pulmonary effort is normal. Breath sounds: Normal breath sounds. No wheezing, rhonchi or rales. Abdominal: General: Bowel sounds are normal. Palpations: Abdomen is soft. Tenderness: There is no abdominal tenderness. Musculoskeletal: General: Normal range of motion. Comments: Pain with lower back movement in all planes Skin: General: Skin is warm. Comments: Scrotal edema Neurological: General: No focal deficit present. Mental Status: He is alert and oriented to person, place, and time. Psychiatric: Mood and Affect: Mood normal. Behavior: Behavior normal. ?Quick Links Full Problem List Cardiology CHF Diabetes GI Hypertension Thyroid Assessment & Plan Cellulitis of other specified site Orders: ciprofloxacin (Cipro) 500 MG tablet; Take 1 tablet (500 mg) by mouth in the morning and 1 tablet (500 mg) before bedtime. Do all this for 5 days. Tinea cruris improved significantly, continue current treatment Orders: nystatin (Mycostatin) [id number] UNIT/GM powder; Apply topically in the morning and before bedtime. Acquired hammertoes of both feet To see podiatry regarding [1] acetaminophen (Tylenol) 500 MG tablet Aspirin Low Dose 81 MG EC tablet atorvastatin (Lipitor) 20 MG tablet carbidopa-levodopa (Sinemet) 25-100 MG tablet ciprofloxacin (Cipro) 500 MG tablet Continuous Glucose Sensor (FreeStyle Lillian 2 Sensor) misc dapagliflozin-metFORMIN ER (Xigduo XR) 10-500 MG entacapone (Comtan) 200 MG tablet insulin glargine (Lantus SoloStar) 100 UNIT/ML pen insulin pen needle (B-D UF III MINI PEN NEEDLES) 31G x 5 mm misc lisinopril 5 MG tablet metoprolol succinate XL (Toprol-XL) 25 MG 24 hr tablet mirabegron ER (Myrbetriq) 50 MG 24 hr tablet nystatin (Mycostatin) [id number] UNIT/GM powder psyllium (Metamucil) 0.36 g capsule sildenafil (Viagra) 100 MG tablet tamsulosin (Flomax) 0.4 MG 24 hr capsule terbinafine (LamISIL) 250 MG tablet traMADol (Ultram) 50 MG tablet [facility]10-27-[facility]25 Telephone encounter Note* Telephone Encounter - Ariadna Jara - 08/08/2025 3:19 PM EDT Pt's spouse called stating they were in this morning to see Dr. Field and she would like for orders for an XR of the Pt's lower back and right hip sent to [facility]. [facility] [place] [facility] HospitalSnadubetme39-73-3994 Miscellaneous Notes* Telephone Encounter - Ariadna Jara - 08/08/2025 3:19 PM EDT Pt's spouse called stating they were in this morning to see Dr. Field and she would like for orders for an XR of the Pt's lower back and right hip sent to [facility]. documented [facility]10[facility] History of Present illness Narrative* Tom Field DO - 08/08/2025 11:40 AM EDT Images from the original note were not included. Subjective ?Quick Links Last Note in Specialty Snapshot Current Meds Patient ID: Ramon Mariee is a 80 y.o. male who presents for Diabetes. Pt presents to the office with with concerns of possible side effects to the Xigduo. Pt states the after taking the medication the first month it went well. Over the last couple months blood sugar remains elevated after eating. States pt ate cornflakes and milk on Friday and glucose was 140 and was still that high at lunch. She also states she read the side effects: Bladder infection, yeast infection. She states he did have a recent bladder infection and now has possible yeast infection. Rash: Onset: approx 1 week ago. Located in groin area. States scrotum is red. Has been applying Vaseline. does keep area clean and dry. Fall: Pt did have a fall on 08/05 upon turning off light falling in bedroom on right side. Has noticed some back pain. There is some bruising of right arm per . Arm hit walker. Pt was not walkingwell yesterday. Pt took tramadol yesterday so thinks it may be related. Diabetes He presents for his follow-up diabetic visit. He has type 2 diabetes mellitus. His disease course has been stable. Medication Documentation Review Audit Reviewed by Adwoa Luis MA ([employer]) on 07/26/25 at 0921 Medication Order Taking? Sig Documenting Provider Last Dose Status acetaminophen (Tylenol) 500 MG tablet [id number] Take 1,000 mg by mouth Daily Active amLODIPine (Norvasc) 5 MG tablet [id number] Take 1 tablet (5 mg) by mouth 1 (one) time each day at the same time Tom Field, DO Active Aspirin Low Dose 81 MG EC tablet [id number] TAKE 1 TABLET BY MOUTH EVERY DAY Tom Field DO Active atorvastatin (Lipitor) 20 MG tablet [id number] Take 1 tablet (20 mg) by mouth at bedtime Tom Field DO Active carbidopa-levodopa (Sinemet) 25-100 MG tablet [id number] TAKE 2 TABLET BY MOUTH AT 8AM, 2 tablet at eleven, 2 tablets at 2PM, AND 2 tablet at 5PM Tom Field DO Active Continuous Glucose Sensor (FreeStyle Lillian 2 Sensor) [facility] [id number] 1 Units every 14 (fourteen) daysGecrispin Field DO Active dapagliflozin-metFORMIN ER (Xigduo XR) 10-500 MG [id number] Take 1 tablet by mouth in the morning. Take with meals. Tom Field DO Active insulin glargine (Lantus SoloStar) 100 UNIT/ML pen [id number] IF BLOOD SUGAR BELOW 150 DO NOT TAKE, IF BLOOD SUGAR BETWEEN 150 AND 250 INJECT 5 UNITS UNDER THE SKIN. IF BLOOD SUGAR OVER 250 INJECT 10 UNITS ONLY ONCE DAILY. Tom Field, DO Active insulin pen needle (B-D UF III MINI PEN NEEDLES) 31G x 5 mm [facility] [id number] Use daily as directed Tom Field DO Active lisinopril 5 MG tablet [id number] TAKE 1 TABLET BY MOUTH EVERY DAY Tom Field DO Active metoprolol succinate XL (Toprol-XL) 25 MG 24 hr tablet [id number] Take 1 tablet (25 mg) by mouth Daily Tom Field DO Active mirabegron ER (Myrbetriq) 50 MG 24 hr tablet [id number] Take 50 mg by mouth 1 (one) time each day at the same time Active psyllium (Metamucil) 0.36 g capsule [id number] Take 6 capsules by mouth Daily Historical Provider, MDActive sildenafil (Viagra) 100 MG tablet [id number] Take 1 tablet (100 mg) by mouth Daily as needed for erectile dysfunction Tom Field DO Active tamsulosin (Flomax) 0.4 MG 24 hr capsule [id number] Take 0.4 mg by mouth at bedtime Active terbinafine (LamISIL) 250 MG tablet [id number] Take 1 tablet (250 mg) by mouth Daily Sarah Connell DPM Active traMADol (Ultram) 50 MG tablet [id number] Take 1 tablet (50 mg) by mouth every 8 (eight) hours if needed for severe pain Tom Field, DO Active Review of Systems ?Quick Review Review Full History Meds - Current Medications[1] --- PMH - Arthritis Diabetes (HCC) Eczema Heart attack (HCC) Hypercholesteremia Hypertension Squamous cell skin cancer Objective ?Quick Links Timeline (Adult) Labs Imaging Results Review Trend Vitals ?? Avoid pulling in long tables of results. Comment on relevant results to support your medical decision making. There were no vitals taken for this visit. Physical Exam Constitutional: Appearance: Normal appearance. HENT: Head: Normocephalic and atraumatic. Eyes: Extraocular Movements: Extraocular movements intact. Pupils: Pupils are equal, round, and reactive to light. Cardiovascular: Rate and Rhythm: Normal rate and regular rhythm. Heart sounds: No murmur heard. Pulmonary: Effort: Pulmonary effort is normal. Breath sounds: Normal breath sounds. No wheezing, rhonchi or rales. Abdominal: General: Bowel sounds are normal. Palpations: Abdomen is soft. Tenderness: There is no abdominal tenderness. Musculoskeletal: Comments: Pain with lower back movement in all planes Skin: General: Skin is warm. Comments: Scrotal edema Neurological: General: No focal deficit present. Mental Status: He is alert and oriented to person, place, and time. Psychiatric: Mood and Affect: Mood normal. Behavior: Behavior normal. ?Quick Links Full Problem List Cardiology CHF Diabetes GI Hypertension Thyroid Assessment & Plan Type 2 diabetes mellitus without complication, with long-term current use of insulin ([facility]) Reviewed labs and/or imaging at today. Will continue current treatment regimen and follow up at next scheduled visit unless problems arise. Orders: insulin glargine (Lantus SoloStar) 100 UNIT/ML pen; IF BLOOD SUGAR BELOW 150 DO NOT TAKE, IF BLOOD SUGAR BETWEEN 150 AND 250 INJECT 5 UNITS UNDER THE SKIN. IF BLOOD SUGAR OVER 250 INJECT 10 UNITS ONLY ONCE DAILY. Scrotal edema Patient advised to return if symptoms worsen and/or persist despite treatment. Cellulitis of other specified site Should improve with the above prescribed medications. Call if not improved despite treatment. Orders: ciprofloxacin (Cipro) 500 MG tablet; Take 1 tablet (500 mg) by mouth in the morning and 1 tablet (500 mg) before bedtime. Do all this for 10 days. Tinea cruris Keep cool dry and open to the air Orders: nystatin (Mycostatin) [id number] UNIT/GM powder; Apply topically in the morning and before bedtime. Chronic bilateral low back pain, unspecified whether sciatica present Patient advised to return if symptoms worsen and/or persist despite treatment. [1] entacapone (Comtan) 200 MG tablet acetaminophen (Tylenol) 500 MG tablet amLODIPine (Norvasc) 5 MG tablet Aspirin Low Dose 81 MG EC tablet atorvastatin (Lipitor) 20 MG tablet carbidopa-levodopa (Sinemet) 25-100 MG tablet Continuous Glucose Sensor (FreeStyle Lillian 2 Sensor) misc dapagliflozin-metFORMIN ER (Xigduo XR) 10-500 MG insulin glargine (Lantus SoloStar) 100 UNIT/ML pen insulin pen needle (B-D UF III MINI PEN NEEDLES) 31G x 5 mm misc lisinopril 5 MG tablet metoprolol succinate XL (Toprol-XL) 25 MG 24 hr tablet mirabegron ER (Myrbetriq) 50 MG 24 hr tablet psyllium (Metamucil) 0.36 g capsule sildenafil (Viagra) 100 MG tablet tamsulosin (Flomax) 0.4 MG 24 hr capsule terbinafine (LamISIL) 250 MG tablet traMADol (Ultram) 50 MG tablet documented in this encounterNorth [facility] HospitalOtqkbccgxk08-54-6521 History of Present illness Narrative* Sarah Connell DPM - 07/26/2025 9:15 AM EDT Images from the original note [...] surroundings, in no acute distress FOOT EXAM: 07/26/25 Vascular: DORSALIS PEDIS PULSE: 2/4 bilateral POSTERIOR [...] digit Hammertoe 2nd digit bilateral Treatment Note: Diabetes, Onychomycosis: 1. Nails were debrided in length and thickness by manual and mechanical means. 2. Advised patient on continued proper diabetic foot care including daily monitoring of their feet for any new complaints or concerns that may arise. 3. Discussed importance of tight blood sugar control to prevent future complications. 4. RTC: 9-12 weeks or as needed if problems arise. Callous: 1. Hyperkeratosis/porokeratosis as above noted was debrided. 2. Instructed patient on use of aperture pads or Silipos padding/toe spacers to prevent rubbing andcontinued development of the hyperkeratosis. 3. Also discussed use of moisturizing creams for overall increased hydration to the skin. 4. Discussed continued use of proper foot gear to avoid excess pressure over the callous site. Hammertoe: 1. Discussed with patient the findings [...] the shortened recovery time. documented in this encounterNorth [place] City HospitalUnypiqdohu67-10-5043 History of Present illness Narrative* Tom Field DO - 06/24/2025 11:40 AM EDTAssociated Problem(s): Sick sinus syndrome (HCC) Cont fu with cardiology * Tom Field DO - 06/24/2025 11:40 AM EDTAssociated Problem(s): Status post cardiac pacemaker procedure stable * Tom Field DO - 06/24/2025 11:40 AM EDTAssociated Problem(s): Parkinsonism (HCC) Patient advised to return if symptoms worsen and/or persist despite treatment. * Tom Field DO - 06/24/2025 11:40 AM EDT Images from the original note were not included. Subjective ?Quick Links Last Note in Specialty Snapshot Edit RFV/CC Edit Screenings Current Meds Patient ID: Ramon Mariee is a 79 y.o. male who presents for Fall. Pt presents for a follow up from a fall. Pt's states that pt fell last night returning from the bathroom. Pt's states that he misjudged where he was siting on the bed and slid off the bed onto the floor. Pt's notes that pt is seeming a little off and not himself. Fall Medication Documentation Review Audit Reviewed by Frankie Cordon LPN (Licensed Nurse) on 06/14/25 at 0909 Medication Order Taking? Sig Documenting Provider Last Dose Status acetaminophen (Tylenol) 500 MG tablet [id number] Yes Take 1,000 mg by mouth Daily Active amLODIPine (Norvasc) 5 MG tablet [id number] Yes Take 1 tablet (5 mg) by mouth 1 (one) time each day at the same time Tom Field DO Active Aspirin Low Dose 81 MG EC tablet [id number] Yes TAKE 1 TABLET BY MOUTH EVERY DAY Tom Field DO Active atorvastatin (Lipitor) 20 MG tablet [id number] Yes Take 1 tablet (20 mg) by mouth at bedtime Tom Proctor DO Active carbidopa-levodopa (Sinemet) 25-100 MG tablet [id number] Yes TAKE 2 TABLET BY MOUTH AT 8AM, 2 tablet at eleven, 2 tablets at 2PM, AND 2 tablet at 5PM Tom Field DO Active Continuous Glucose Sensor (FreeStyle Lillian 2 Sensor) [facility] [id number] Yes 1 Units every 14 (fourteen) days Tom Field DO Active dapagliflozin-metFORMIN ER (Xigduo XR) 10-500 MG [id number] Yes Take 1 tablet by mouth in the morning. Take with meals. Tom Field, DO Active insulin glargine (Lantus SoloStar) 100 UNIT/ML pen [id number] Yes IF BLOOD SUGAR BELOW 180 DO NOT TAKE, IF BLOOD SUGAR BETWEEN 180 AND 250 INJECT 5 UNITS UNDER THE SKIN. IF BLOOD SUGAR OVER 250 INJECT 10 UNITS ONLY ONCE DAILY. Tom Field DO Active insulin pen needle (B-D UF III MINI PEN NEEDLES) 31G x 5 mm mis [id number] Yes Use daily as directedTom Field, DO Active lisinopril 5 MG tablet [id number] Yes TAKE 1 TABLET BY MOUTH EVERY DAY Tom Field DO Active metoprolol succinate XL (Toprol-XL) 25 MG 24 hr tablet [id number] Yes Take 1 tablet (25 mg) by mouth Daily Tom Field DO Active mirabegron ER (Myrbetriq) 50 MG 24 hr tablet [id number] Yes Take 50 mg by mouth 1 (one) time each dayat the same time Active psyllium (Metamucil) 0.36 g capsule [id number] Take 6 capsules by mouth Daily Patient not taking: Reported on 06/14/2025 Historical Provider, Active sildenafil (Viagra) 100 MG tablet [id number] Yes Take 1 tablet (100 mg) by mouth Daily as needed for erectile dysfunction Tom Field DO Active tamsulosin (Flomax) 0.4 MG 24 hr capsule [id number] Yes Take 0.4 mg by mouth at bedtime Active terbinafine (LamISIL) 250 MG tablet [id number] Yes Take 1 tablet (250 mg) by mouth Daily Sarah Connell DPM Active traMADol (Ultram) 50 MG tablet [id number] Yes Take 1 tablet (50 mg) by mouth every 8 (eight) hours ifneeded for severe pain Tom Field DO Active Review of Systems ?Quick Review Review Full History Edit History Meds - acetaminophen (Tylenol) 500 MG tablet amLODIPine (Norvasc) 5 MG tablet Aspirin Low Dose 81 MG EC tablet atorvastatin (Lipitor) 20 MG tablet carbidopa-levodopa (Sinemet) 25-100 MG tablet Continuous Glucose Sensor (FreeStyle Lillian 2 Sensor) misc dapagliflozin-metFORMIN ER (Xigduo XR) 10-500 MG insulin glargine (Lantus SoloStar) 100 UNIT/ML pen insulin pen needle (B-D UF III MINI PEN NEEDLES) 31G x 5 mm misc lisinopril 5 MG tablet metoprolol succinate XL (Toprol-XL) 25 MG 24 hr tablet mirabegron ER (Myrbetriq) 50 MG 24 hr tablet psyllium (Metamucil) 0.36 g capsule sildenafil (Viagra) 100 MG tablet tamsulosin (Flomax) 0.4 MG 24 hr capsule terbinafine (LamISIL) 250 MG tablet traMADol (Ultram) 50 MG tablet --- PMH - Arthritis Diabetes (HCC) Eczema Heart attack (HCC) Hypercholesteremia Hypertension Squamous cell skin cancer Objective ?Quick Links Add Vitals Timeline (Adult) Labs Imaging Results Review Trend Vitals ?? Avoid pulling in long tables of results. Comment on relevant results to support your medical decision making. Ht 5' 6 BMI 29.86 kg/m Physical Exam Constitutional: General: He is [...] normal. Behavior: Behavior normal. Judgment: Judgment normal. ?Quick Links Full Problem List Cardiology CHF Diabetes GI Hypertension Thyroid Assessment & Plan Altered mental status, unspecified altered mental status type Patient advised to return if symptoms worsen and/or persist despite treatment. Orders: POCT Urinalysis dipstick CBC and differential; Future Basic metabolic panel; Future Urine culture (clean catch); Future Hypotension, unspecified hypotension type Record Blood Pressures 2-4 times weekly and record. Return with readings at next appointment. Call with readings if sees significant changes. Will hold amlodipine for the time being as pt has lost a lot of weight and has had mult episodes of hypotension Orders: CBC and differential; Future Basic metabolic panel; Future Falls Orders: CBC and differential; Future Basic metabolic panel; Future Bradycardia As abvoe Sick sinus syndrome (HCC) Cont fu with cardiology Status post cardiac pacemaker procedure stable Parkinson's disease with dyskinesia and fluctuating manifestations (HCC) Patient advised to return if symptoms worsen and/or persist despite treatment. Urinary tract infection without hematuria, site unspecified Patient advised to return if symptoms worsen and/or persist despite treatment. Orders: ciprofloxacin (Cipro) 250 MG tablet; Take 1 tablet (250 mg) by mouth in the morning and 1 tablet (250 mg) before bedtime. Do all this for 5 days. documented in this encounterNorth Kansas City [id number] Note From: Hillary Oliver Sent: 06/14/2025 14:11:58 EDT Subject: General Message Caller Name: ANTHONY RAMON STREETER; Caller Number: H Refill Request Myrbetriq 50mg ER tab, PO, one tab, one time a day, 30 tabs, 3 refills sent to [place]09-02-2025 History of Present illness Narrative* Tom Field DO - 06/14/2025 9:00 AM EDTAssociated Problem(s): Type 2 diabetes mellitus with hyperglycemia, without long-term current use of insulin (HCC) Reviewed labs and/or imaging at today. Will continue current treatment regimen and follow up at next scheduled visit unless problems arise. * Tom Field DO - 06/14/2025 9:00 AM EDTAssociated Problem(s): DDD (degenerative disc disease), lumbosacral Patient advised to return if symptoms worsen and/or persist despite treatment. * Tom Field DO - 06/14/2025 9:00 AM EDTAssociated Problem(s): Hyperlipidemia Reviewed labs and/or imaging at ov today. Will continue current treatment regimen and follow up at next scheduled visit unless problems arise. * Tom Field DO - 06/14/2025 9:00 AM EDTAssociated Problem(s): Hypertension Record Blood Pressures 2-4 times weekly and record. Return with readings at next appointment. Call with readings if sees significant changes Orders: Comprehensive metabolic panel; Future CBC and differential; Future * Tom Field DO - 06/14/2025 9:00 AM EDTAssociated Problem(s): Hypothyroid Labs ordered today, will follow up when results available * Tom Field DO - 06/14/2025 9:00 AM EDTAssociated Problem(s): Parkinsonism (HCC) Problem is stable, will continue with current treatment plan. Call or return to clinic if any changes occur * Tom Field DO - 06/14/2025 9:00 AM EDTAssociated Problem(s): Stage 3a chronic kidney disease (CMS-HCC) Reviewed labs and/or imaging at ov today. eincouraged hydration. Orders: Microalbumin / creatinine urine ratio; Future Comprehensive metabolic panel; Future CBC and differential; Future * Tom Field DO - 06/14/2025 9:00 AM EDT Images from the original note were not included. Subjective ?Quick Links Last Note in Specialty Snapshot Current Meds Patient ID: Ramon Mariee is a 79 y.o. male who presents for Diabetes, Hyperlipidemia, Hypothyroidism, Hypertension. Pt presents to the office for a routine check up and to review blood work results. Diabetes: Pt does have lillian 3 device and monitors sugars regularly. Sugar has been stable overall, does not feel sugars may improve. Diabetes He presents for his follow-up diabetic [...] ago. The problem is controlled. Review of Systems ?Quick Review Review Full History Meds - acetaminophen (Tylenol) 500 MG tablet amLODIPine (Norvasc) 5 MG tablet Aspirin Low Dose 81 MG EC tablet atorvastatin (Lipitor) 20 MG tablet carbidopa-levodopa (Sinemet) 25-100 MG tablet Continuous Glucose Sensor (FreeStyle Lillian 2 Sensor) misc dapagliflozin-metFORMIN ER (Xigduo XR) 10-500 MG insulin glargine (Lantus SoloStar) 100 UNIT/ML pen insulin pen needle (B-D UF III MINI PEN NEEDLES) 31G x 5 mm misc lisinopril 5 MG tablet metoprolol succinate XL (Toprol-XL) 25 MG 24 hr tablet mirabegron ER (Myrbetriq) 50 MG 24 hr tablet psyllium (Metamucil) 0.36 g capsule sildenafil (Viagra) 100 MG tablet tamsulosin (Flomax) 0.4 MG 24 hr capsule terbinafine (LamISIL) 250 MG tablet traMADol (Ultram) 50 MG tablet --- PMH - Arthritis Diabetes (HCC) Eczema Heart attack (HCC) Hypercholesteremia Hypertension Squamous cell skin cancer Objective ?Quick Links Timeline (Adult) Labs Imaging Results Review Trend Vitals ?? Avoid pulling in long tables of results. Comment on relevant results to support your medical decision making. There were no vitals taken for this visit. Physical Exam ?Quick Links Full Problem List Cardiology CHF Diabetes GI Hypertension Thyroid Assessment & Plan Type 2 diabetes mellitus with hyperglycemia, without long-term current use of insulin (HCC) Reviewed labs and/or imaging at ov today. Will continue current treatment regimen and follow up at next scheduled visit unless problems arise. Degeneration of intervertebral disc of lumbosacral region, unspecified whether pain present Patient advised to return if symptoms worsen and/or persist despite treatment. Mixed hyperlipidemia Reviewed labs and/or imaging at ov today. Will continue current treatment regimen and follow up at next scheduled visit unless problems arise. Hypertension, unspecified type Record Blood Pressures 2-4 times weekly and record. Return with readings at next appointment. Call with readings if sees significant changes Orders: Comprehensive metabolic panel; Future CBC and differential; Future Hypothyroidism, unspecified type Labs ordered today, will follow up when results available Parkinson's disease with dyskinesia and fluctuating manifestations (HCC) Problem is stable, will continue with current treatment plan. Call or return to clinic if any changes occur Stage 3a chronic kidney disease ([facility]-HCC) Reviewed labs and/or imaging at ov today. eincouraged hydration. Orders: Microalbumin / creatinine urine ratio; Future Comprehensive metabolic panel; Future CBC and differential; Future Type 2 diabetes mellitus without complication, with long-term current use of insulin (HCC) Reviewed labs and/or imaging at ov today. Will continue current treatment regimen and follow up at next scheduled visit unless problems arise. Orders: insulin glargine (Lantus SoloStar) 100 UNIT/ML pen; IF BLOOD SUGAR BELOW 150 DO NOT TAKE, IF BLOOD SUGAR BETWEEN 150 AND 250 INJECT 5 UNITS UNDER THE SKIN. IF BLOOD SUGAR OVER 250 INJECT 10 UNITS ONLY ONCE DAILY. documented in this encounterNorth Kansas City [id number] History of Present illness Narrative* Tom Field DO - 05/04/2025 10:40 AM EDTAssociated Problem(s): Parkinsonism (HCC) Problem is stable, will continue with current treatment plan. Call or return to clinic if any changes occur * Tom Field DO - 05/04/2025 10:40 AM EDTAssociated Problem(s): Hypertension Record Blood Pressures 2-4 times weekly and record. Return with readings at next appointment. Call with readings if sees significant changes Orders: amLODIPine (Norvasc) 5 MG tablet; Take 1 tablet (5 mg) by mouth 1 (one) time each day at the same time * Tom Field DO - 05/04/2025 10:40 AM EDTAssociated Problem(s): Hypothyroid Labs ordered today, will follow up when results available Orders: TSH; Future T4, free; Future T3; Future * Tom Field DO - 05/04/2025 10:40 AM EDTAssociated Problem(s): Orthostatic lightheadedness Reviewed ER notes including labs and imaging. Will lower amlodipine, as pt has lost weight since starting the xigduo and bp is trending lower. Orders: amLODIPine (Norvasc) 5 MG tablet; Take 1 tablet (5 mg) by mouth 1 (one) time each day at the same time * Tom Field DO - 05/04/2025 10:40 AM EDT Images from the original note [...] rx now. ER follow up: Seen at [facility] on [place] after syncopal episode resulting in a fall while coming into appt. XR and labs were done. Pt states he is overall doing well. Flowsheet Row Patient Outreach from 05/03/2025 in [facility] [employer] [facility] with Manasa Friday, [employer] Hospital Information ED, Hospital or Long-Term Facility Discharge? ED Patient has been contacted within 2 days of being seen in the ED Yes Diagnosis Syncope Discharge Date 05/02/25 Discharged To: Home Setting Discharge Hospital [facility] Engagement Call Start Time 161 Admission Date 05/02/25 Medications Discharge medications reviewed [...] 3 views right; Future documented in this encounterNorth Kansas City [id number] History of Present illness Narrative* Sarah Connell DPM - 04/25/2025 10:15 AM EDT Images from the original note [...] needed if problems arise. documented in this [facility]06[facility] History of Present illness Narrative* Silvestre Cooley MD - 04/06/2025 1:30 PM EDT Images from the original note were not included. Mohs Surgery Location: Right mu-ism Date of biopsy: 02/01/2025 Diagnosis: Squamous Cell Carcinoma, in situ All pertinent medical history, medications, and allergies were reviewed. General Exam: alert, oriented to person, place, and time, normal affect, well appearing A focused exam completed based on patient reported problems, see below: Skin Exam 1. SQUAMOUS CELL CARCINOMA IN SITU (SCCIS) OF SKIN OF RIGHT CONFUCIANISM REGION Right mu-ism Poorly defined, erythematous, hyperkeratotic patch at the biopsy site Mohs surgery Consent obtained: written (The rationale for Mohs as well as the risks, benefits, and alternatives.The risks of infection, scarring, bleeding, prolonged wound healing, incomplete removal, allergy toanesthesia or meds, nerve injury, and recurrence were addressed.) Ignacio Protocol: Procedure explained and questions answered to [...] sodium bicarbonate Procedure Details: Biopsy accession number: [id number] Biopsy lab: [facility] Date of biopsy: 02/01/2025 Frozen section biopsy performed: Yes Specimen debulked: No Pre-Op diagnosis: squamous cell carcinoma SCC subtype: in situ MohsAIQ Surgical site (if tumor spans multiple areas, please select predominant area): mu-ism Surgery side: right Surgical site (from skin exam): Right mu-ism Pre-operative length (cm): 1.8 Pre-operative width (cm): [...] lab where it was chromacoded and processed. Mohssections were prepared with serial tissue sections, stained, [...] and were reviewed with the patient. A follow- up appointment was made, and instructions were given to follow-up sooner if necessary. Next visit: 02/01/2026 documented in this encounterNorth [place] City [id number] Evaluation note* Diagnosis Onset Date Resolution Status Admit Date Coronary artery disease involving oneida coronary artery of oneida heart wi acuteJune 2024 10:11amS/P [facility]:11[facility]S/P PTCA (percutaneous transluminal coronary angioplasty)acuteJune 2024 10:11amSick sinus syndromeacuteAt[facility] 2024 10:11am [facility] Work Phone: [phone] 420-381505-20-2025 History of Present illness Narrative* BERE [place] [...] at the same time omega-3, EPA+DHA, (Super [place]-3) 1000 MG capsule 1 capsule sildenafil (Viagra) [...] of current healthcare providers: Patient Care Team: oTm Field DO as PCP - General (Family Medicine) Tom Field DO as PCP - ACO Reach Lili Ybarra MD as Referring Physician (Sleep Medicine) Sunny Vasquez DO (Otolaryngology) Eusebio Guerin MD as Referring Physician (Neurology) BERE Quesada as Physician Director [employer] (Neurology) Medicare Annual Visit Over the past [...] at all Patient Health Questionnaire-9 Score: 0 [place] Fall Risk History of Falling, Immediate or [...] done Cognitive Screening Three Word Registration: Banana, [place], Chair Clock Drawing: Normal Clock - 2 Three Word Recall: 2/3 words correct - 2 Total Score (0-5 Points): 4 Pain Assessment Pain Score: 9 Advance Care Planning Do you have a living will?: Yes Do you have a medical power of technical sales consultant?: Yes Who is your medical power of technical sales consultant?: Keri daughter Objective BP 100/62 Pulse 63 [...] Diagnosis Benign prostatic hyperplasia Coronary artery disease ([facility]/HCC) Diabetic renal disease ([facility]) Exercise-induced angina ([facility]/HCC) Heart failure Hyperlipidemia ([facility]/HCC) Hypothyroid ([facility]/HCC) Obstructive sleep apnea syndrome Hypertension ([facility]/HCC) Peripheral vascular disease ([facility]/HCC) Sick sinus syndrome ([facility]/HCC) Stage 3a chronic kidney disease (HCC) ([facility]) Stented coronary artery Type 2 diabetes mellitus with hyperglycemia, without long-term current use of insulin ([facility]) Vitamin D deficiency Generalized osteoarthritis DDD (degenerative disc disease), lumbosacral Parkinsonism ([facility]/HCC) PAC (premature atrial contraction) S/P placement of cardiac pacemaker S/P PTCA (percutaneous transluminal coronary angioplasty) Complication of ventilation therapy Myocardial infarction ([facility]/HCC) Dehydration Continue with care team regarding the [...] family history were discussed. documented in this encounterNorth [place] City [id number] History of Present illness Narrative* Tom Field [...] angina (CMS/HCC) Heart failure Hyperlipidemia (CMS/HCC) Hypothyroid (CMS/HCC) Obstructive sleep apnea syndrome Hypertension (CMS/HCC) Peripheral vascular disease (CMS/HCC) Sick sinus syndrome (CMS/HCC) Stage 3a chronic kidney disease ([facility]) (CMS/HCC) Stented coronary artery Type 2 diabetes mellitus with hyperglycemia, without long-term current use of insulin (CMS/HCC) Vitamin D deficiency Generalized osteoarthritis DDD (degenerative disc disease), lumbosacral Parkinsonism (CMS/HCC) PAC (premature atrial contraction) S/P placement of cardiac pacemaker S/P PTCA (percutaneous transluminal coronary angioplasty) Complication of ventilation therapy Myocardial infarction (CMS/HCC) Dehydration Past Medical History: Past Medical History: Diagnosis Date Arthritis Diabetes (CMS/HCC) Eczema Heart attack (CMS/HCC) Hypercholesteremia (CMS/HCC) Hypertension (CMS/HCC) Family History: Family History Problem Relation Name Age of Onset Cancer Mother Vicky Mariee Heart disease Father Pasotr Mariee Diabetes Sister Morelia Mariee Allergies: Allergies Allergen Reactions Hydrocodone Other Reaction(s): Nausea Lactose Surgical History: Past Surgical History: Procedure Laterality Date CARDIAC PACEMAKER PLACEMENT 03/2021 CARDIAC SURGERY 2019 CORONARY STENT PLACEMENT 8 stents EYE SURGERY JOINT REPLACEMENT OTHER SURGICAL HISTORY 09/27/2024 DISE TOTAL KNEE ARTHROPLASTY 2009; 2011 Social History: [employer] Tobacco Use: Medium Risk (02/01/2025) Patient History [...] min Stress: No Stress Concern Present (03/25/2024) [employer] [place] [employer] - Occupational Stress Questionnaire Feeling of Stress : Not at all Recent Concern: Stress - Stress Concern Present (03/17/2024) [employer] [place] [employer] - Occupational Stress Questionnaire Feeling of Stress : To some extent Social Connections: Moderately Integrated (03/25/2024) Social Connection and Isolation Panel [NHANES] Frequency of Communication with Friends and Family: Three times a week Frequency of Social Gatherings with Friends and Family: Not on file Attends Congregational Services: More than 4 times per year [...] HDL Cholesterol 54 >39 mg/dL VLDL Cholesterol Jose 12 5 - 40 mg/dL LDL Chol Calc ([facility]) 69 0 - 99 mg/dL Comprehensive metabolic [...] unspecified vessel or lesion type, unspecified whether oneida or transplanted heart ([facility]/HCC) Problem is stable, will continue with current treatment plan. Call or return to clinic if any changes occur - Comprehensive metabolic panel; Future - CBC and differential; Future Type 2 diabetes mellitus without complication, with long-term current use of insulin Reviewed labs and/or imaging at ov today. [...] - Hemoglobin A1c; Future Hypertension, unspecified type ([facility]) Record Blood Pressures 2-4 times weekly and record. Return with readings at next appointment. Call with readings if sees significant changes - Comprehensive metabolic panel; Future - CBC and differential; Future Mixed hyperlipidemia ([facility]/HCC) - Comprehensive metabolic panel; Future - CBC and differential; Future Stage 3a chronic kidney disease (HCC) ([facility]/HCC) Reviewed labs and/or imaging at ov today. Will continue current treatment regimen and follow up at next scheduled visit unless problems arise. - Comprehensive metabolic panel; Future - CBC and differential; Future Type 2 diabetes mellitus with hyperglycemia, without long-term current use of insulin ([facility]) - Comprehensive metabolic panel; Future [...] sametime, Disp: , Rfl: omega-3, EPA+DHA, (Super [place]-3) 1000 MG capsule, 1 capsule, Disp: , [...] 30 tablet, Rfl: 0 documented in this [facility]04-28-2025 Telephone encounter Note* Telephone Encounter - Adwoa Luis MA - 02/07/2025 8:04 AM EDT Please advise, thank you. [place] [id number] Miscellaneous Notes* Telephone Encounter - Adwoa Luis MA - 02/07/2025 8:04 AM EDT Please advise, thank you. documented in this [facility]04-22-2025 History of Present illness Narrative* Hetal Davies [...] Next Visit: 1 year documented in this encounterNorth [place] City [id number] History of Present illness Narrative* Sarah Connell, DPM - 01/18/2025 11:30 AM EDT Images [...] needed if problems arise. documented in this encounterNorth [place] City [id number] History of Present illness Narrative* Tom Field DO - 10/25/2024 10:20 AM EST Images [...] apnea syndrome Hypertension (CMS/HCC) Peripheral vascular disease ([facility]/HCC) Sick sinus syndrome (CMS/HCC) Stage 3a chronic kidney disease (HCC) (CMS/HCC) Stented coronary artery Type 2 diabetes mellitus with hyperglycemia, without long-term current use of insulin (CMS/HCC) Vitamin D deficiency Generalized osteoarthritis DDD (degenerative disc disease), lumbosacral Parkinsonism (CMS/HCC) PAC (premature atrial contraction) S/P placement of cardiac pacemaker S/P PTCA (percutaneous transluminal coronary angioplasty) Complication of ventilation therapy Myocardial infarction ([facility]/HCC) Past Medical History: Past Medical History: Diagnosis Date Diabetes (CMS/HCC) Heart attack (CMS/HCC) Hypercholesteremia ([facility]/HCC) Hypertension ([facility]/HCC) Family History: Family History Problem Relation Name [...] min Stress: No Stress Concern Present (03/25/2024) [employer] [place] [employer] - Occupational Stress Questionnaire Feeling of Stress : Not at all Recent Concern: Stress - Stress Concern Present (03/17/2024) [facility] - Occupational Stress Questionnaire Feeling of Stress : To some extent Social Connections: Moderately Integrated (03/25/2024) Social Connection and Isolation Panel [NHANES] Frequency of Communication with Friends and Family: Three times a week Frequency of Social Gatherings with Friends and Family: Not on file Attends Congregational Services: More than 4 times per year [...] unspecified vessel or lesion type, unspecified whether oneida or transplanted heart ([facility]) Problem is stable, will continue with current treatment plan. Call or return to clinic if any changes occur - Lipid panel; Future - Comprehensive metabolic panel; Future - CBC and differential; Future Type 2 diabetes mellitus with diabetic chronic kidney disease ([facility]) Labs ordered today, will follow up when results available - Microalbumin / creatinine urine ratio; Future - Comprehensive metabolic panel; Future - CBC and differential; Future - Hemoglobin A1c; Future Chronic kidney disease, stage 3b (HCC) ([facility]) - Comprehensive metabolic panel; Future - CBC and differential; Future Sick sinus syndrome ([facility]) - Comprehensive metabolic panel; Future - CBC and differential; Future Hypertensive heart disease with heart failure ([facility]) Record Blood Pressures 2-4 times weekly and record. Return with readings at next appointment. Call with readings if sees significant changes - Comprehensive metabolic panel; Future - CBC and differential; Future Hypertension, unspecified type ([facility]) - Lipid panel; Future - Comprehensive metabolic panel; Future - CBC and differential; Future Mixed hyperlipidemia ([facility]) - Comprehensive metabolic panel; Future - CBC and differential; Future Stage 3a chronic kidney disease (HCC) ([facility]) Labs ordered today, will follow up when results available - Comprehensive metabolic panel; Future - CBC and differential; Future Type 2 diabetes mellitus with hyperglycemia, without long-term current use of insulin ([facility]) - Comprehensive metabolic panel; Future [...] Continuous Glucose Sensor (FreeStyle Lillian 2 Sensor) [facility], 1 Units every 14 (fourteen) days, Disp: 2 each, Rfl: 11 insulin glargine (Lantus SoloStar) 100 UNIT/ML pen, INJECT 10 UNITS UNDER THE SKIN EVERY DAY AT BEDTIME, Disp: 15 mL, Rfl: 3 insulin pen needle (B-D UF III MINI PEN NEEDLES) 31G x 5 mm [facility], Use daily as directed, Disp: 100 each, [...] sametime, Disp: , Rfl: omega-3, EPA+DHA, (Super Dublin-3) 1000 MG capsule, 1 capsule, Disp: , Rfl: terbinafine (LamISIL) 250 MG tablet, TAKE 1 TABLET BY MOUTH EVERY DAY, Disp: 90 tablet, Rfl: 0 traMADol (Ultram) 50 MG tablet, Take 1 tablet (50 mg) by mouth every 8 (eight) hours if needed for severe pain, Disp: 30 tablet, Rfl: 0 documented in this encounterNorth Kansas City HospitalDpkflxuzqt64-56-2097 History of Present illness Narrative* Sunny Vasquez DO - 10/05/2024 8:00 AM EST Allergies as of 10/05/2024 - Reviewed 09/29/2024 Allergen Reaction Noted Lactose 03/01/2024 Past Medical History: Diagnosis Date Diabetes (CMS/HCC) Heart attack (CMS/HCC) Hypercholesteremia (CMS/HCC) Hypertension ([facility]/HCC) Current Outpatient Medications: acetaminophen (Tylenol) 500 MG [...] sametime, Disp: , Rfl: omega-3, EPA+DHA, (Super Dublin-3) 1000 MG capsule, 1 capsule, Disp: , [...] min Stress: No Stress Concern Present (03/25/2024) [facility] - Occupational Stress Questionnaire Feeling of Stress : Not at all Recent Concern: Stress - Stress Concern Present (03/17/2024) [facility] - Occupational Stress Questionnaire Feeling of Stress : To some extent Social Connections: Moderately Integrated (03/25/2024) Social Connection and Isolation Panel [NHANES] Frequency of Communication with Friends and Family: Three times a week Frequency of Social Gatherings with Friends and Family: Not on file Attends Congregational Services: More than 4 times per year [...] schedule once it is. documented in this encounterNorth [place] City [id number] History of Present illness Narrative* Sarah Connell DPM - 09/29/2024 11:30 AM EST Images [...] in the feet. Patient's PCP is Tom R Kaftan, DO. Date of Last visit: 06/18/24. No [...] needed if problems arise. documented in this [facility]12-16-2024 History of Present illness Narrative* Sunny Vasquez DO - 09/27/2024 10:45 AM EST mmm * Sunny Vasquez DO - 09/27/2024 10:45 AM EST mmm documented in this [facility]12-12-2024 Telephone encounter Note* Telephone Encounter - Dwight Anand MA - 09/23/2024 10:43 AM EST Robert Herrera calls to state that they've set up pt for PT once weekly for the next 9 weeks. [place] [id number] Miscellaneous Notes* Telephone Encounter - Dwight Anand MA - 09/23/2024 10:43 AM EST Robert Herrera calls to state that they've set up pt for PT once weekly for the next 9 weeks. documented in this [facility]11-25-2024 History of Present illness Narrative* BERE Valadez [...] Review Audit Reviewed by Marcia Self MA ([employer]) on 09/06/24 at 1026 Medication Order Taking? Sig Documenting Provider Last Dose Status acetaminophen (Tylenol) 500 MG tablet [id number] No Take 1,000 mg by mouth Daily Taking Active amLODIPine (Norvasc) 10 MG tablet [id number] No 1 (one) time each day at the same time. Historical Provider, Taking Active aspirin 81 MG EC tablet [id number] Take 1 tablet (81 mg) by mouth Daily Tom Field DO Active atorvastatin (Lipitor) 20 MG tablet [id number] TAKE 1 TABLET BY MOUTH EVERYDAY AT THE SAME TIME Tom Field DO Active carbidopa-levodopa (Sinemet) 25-100 MG tablet [id number] TAKE 1 TABLET BY MOUTH AT 8AM, NOON, 3PM AND6PM Amada García NP Active Continuous Glucose Sensor (FreeStyle Lillian 2 Sensor) [facility] [id number] No 1 Units every 14 (fourteen) days Tom Field DO Taking Active Continuous Glucose Sensor (FreeStyle Lillian 2 Sensor) [facility] [id number] 1 Units every 14 (fourteen) daysRoshniorroshni Field DO Active insulin glargine (Lantus SoloStar) 100 UNIT/ML pen [id number] No INJECT 10 UNITS UNDER THE SKIN EVERYDAY AT BEDTIME Tom Field DO Taking Active insulin pen needle (B-D UF III MINI PEN NEEDLES) 31G x 5 mm [facility] [id number] No Use daily as directed Tom Field DO Taking Active lisinopril 5 MG tablet [id number] No Take 1 tablet (5 mg) by mouth Daily Tom Field DO Taking Active metFORMIN XR (Glucophage-XR) 500 MG 24 hr tablet [id number] Take 2 tablets (1,000 mg) by mouth in themorning and 2 tablets (1,000 mg) before bedtime. Do not crush, chew, or split.. Tom Field DOActive metoprolol succinate XL (Toprol-XL) 25 MG 24 hr tablet [id number] No Take 1 tablet by mouth 1 (one) time each day. Historical Provider, Taking Active mirabegron ER (Myrbetriq) 50 MG 24 hr tablet [id number] No Take 50 mg by mouth 1 (one) time each day at the same time Taking Active Misc. Devices (Rollator Ultra-Light) misc [id number] No 1 rollator with seat for every day use Néstor Field DO Taking Active omega-3, EPA+DHA, (Super Dublin-3) 1000 MG capsule [id number] No 1 capsule Tom Field DO Taking Active terbinafine (LamISIL) 250 MG tablet [id number] TAKE 1 TABLET BY MOUTH EVERY DAY Sarah Connell DPM Active traMADol (Ultram) 50 MG tablet [id number] Take 1 tablet (50 mg) by mouth [...] not wake feeling rested -currently working on [employer] Review of Systems Constitutional: Positive for fatigue. [...] triceps, wrist extensors, wrist extensors, wrist flexor, part time flexible clerk strength 5/5. LUE Strength deltoid, biceps, triceps, wrist extensors, wrist extensors, wrist flexor, part time flexible clerk strength 5/5. RLE Strength illopsoas, quadriceps, tibialis [...] - 79-year-old male who was seen at [facility] [place]24 with altered mental status and [...] after his hospitalization and was evaluated at [facility] with nonacute CT head and cervical [...] does not wear. He followed with Dr Ybarra at [facility]. His will call to schedule an appointment to discuss alternative therapies and/or mask. He is working towards [employer] device. We discussed the affects and risks associated with untreated LOPEZ Evaluation at [facility] in February [address] scan of [...] or sooner if needed documented in this encounterNorth [place] City HospitalYnsapxqjot26-74-9689 Telephone encounter Note* Telephone Encounter - Sarah Connell DPM - 08/26/2024 4:32 PM EST Patient's recent lab work in June was normal for LFTs. He can continue with the Lamisil. Rx was sent. [place] HospitalRlbvqbdwpq33-61-9821 Miscellaneous Notes* Telephone Encounter - Sarah Connell DPM - 08/26/2024 4:32 PM EST Patient's recent lab work in June was normal for LFTs. He can continue with the Lamisil. Rx was sent. documented in this [facility]11-11-2024 Telephone encounter Note* Telephone Encounter - Frankie Cordon LPN - 08/23/2024 10:45 AM EST Rescheduled appt for after labs are completed. [place] HospitalRebhdltmor75-63-9074 Miscellaneous Notes* Telephone Encounter - Frankie Cordon [...] her to confirm this. documented in this [facility]11-11-2024 Telephone encounter Note* Telephone Encounter - Autumn Gibbons - 08/23/2024 9:51 AM EST Pt's spouse called and wanted to make sure the labs ordered are active and can be done prior to appointment on 09/27. I told her yes they were active. She would like someone to call her to confirm this. [place] HospitalJgfegwwtkw48-46-9145 History of Present illness Narrative* Sunny Vasquez, - 08/10/2024 9:30 AM EDT Allergies as of 08/10/2024 - Reviewed 06/30/2024 Allergen Reaction Noted Lactose 03/01/2024 Past Medical History: Diagnosis Date Diabetes ([facility]) Heart attack (CMS/HCC) Hypercholesteremia (CMS/HCC) Hypertension [...] 1 each, Rfl: 0 omega-3, EPA+DHA, (Super Dublin-3) 1000 MG capsule, 1 capsule, Disp: , [...] min Stress: No Stress Concern Present (03/25/2024) [employer] [employer] [facility] - Occupational Stress Questionnaire Feeling of Stress : Not at all Recent Concern: Stress - Stress Concern Present (03/17/2024) [facility] [employer] - Occupational Stress Questionnaire Feeling of Stress : To some extent Social Connections: Moderately Integrated (03/25/2024) Social Connection and Isolation Panel [NHANES] Frequency of Communication with Friends and Family: Three times a week Frequency of Social Gatherings with Friends and Family: Not on file Attends Congregational Services: More than 4 times per year [...] once we have approval. documented in this encounterNorth Kansas City HospitalUkcihfqqle87-92-7747 History of Present illness Narrative* Sarah Connell [...] needed if problems arise. documented in this encounterNorth [place] City HospitalMqhjdxdwda71-85-4247 History of Present illness Narrative* Tom Field, DO - 06/18/2024 12:20 PM EDT Images [...] min Stress: No Stress Concern Present (03/25/2024) [facility] [employer] - Occupational Stress Questionnaire Feeling of Stress : Not at all Recent Concern: Stress - Stress Concern Present (03/17/2024) [facility] [employer] - Occupational Stress Questionnaire Feeling of Stress : To some extent Social Connections: Moderately Integrated (03/25/2024) Social Connection and Isolation Panel [NHANES] Frequency of Communication with Friends and Family: Three times a week Frequency of Social Gatherings with Friends and Family: Not on file Attends Congregational Services: More than 4 times per year [...] unspecified vessel or lesion type, unspecified whether oneida or transplanted heart (CMS/HCC) Problem is stable, will continue with current treatment plan. Call or return to clinic if any changes occur - aspirin 81 MG EC tablet; Take 1 tablet (81 mg) by mouth Daily - Microalbumin / creatinine urine ratio; Future - Comprehensive metabolic panel; Future Type 2 diabetes mellitus without complication, with long-term current use of insulin ([facility]) Reviewed labs and/or imaging at [...] associated with type 2 diabetes mellitus (HCC) ([facility]/HCC) Reviewed labs and/or imaging at ov today. advised that it appears that he is dehydrated and this may be contributing to the kidney problems - Microalbumin / creatinine urine ratio; Future - Comprehensive metabolic panel; Future Mixed hyperlipidemia ([facility]) Reviewed labs and/or imaging at [facility] today. Will continue current treatment regimen and follow up at next scheduled visit unless problems arise. - CBC and differential; Future Hypertension, unspecified type (CMS/HCC) Record Blood Pressures 2-4 times weekly and [...] today. Current Outpatient Medications: omega-3, EPA+DHA, (Super Dublin-3) 1000 MG capsule, 1 capsule, Disp: , [...] 30 tablet, Rfl: 0 documented in this encounterNorth [place] City HospitalXhqmurvtnp32-87-2067 History of Present illness Narrative* Amada García NP - 06/15/2024 8:40 AM EDT [...] Review Audit Reviewed by Frankie Cosby MA ([employer]) on 06/15/24 at 0841 Medication Order Taking? Sig Documenting Provider Last Dose Status acetaminophen (Tylenol) 500 MG tablet [id number] Take 1,000 mg by mouth Daily Active amLODIPine (Norvasc) 10 MG tablet [id number] 1 (one) time each day at the same time. Historical Provider, Active atorvastatin (Lipitor) 20 MG tablet [id number] Take 1 tablet (20 mg) by mouth 1 (one) time each day at the same time Tom Field DO Active carbidopa-levodopa (Sinemet) 25-100 MG tablet [id number] TAKE 1 TABLET BY MOUTH AT 8AM, NOON, 3PM, AND 6PM Amada García NP Active clopidogrel (Plavix) 75 MG tablet [id number] Take 1 tablet (75 mg) by mouth in the morning. Tom Field DO Active Continuous Glucose Marker Machine (FreeStyle Lillian 2 Mart) device [id number] Dispense 1 reader device forevery day use to check blood sugars E11.9 Tom Field DO Active Continuous Glucose Sensor (FreeStyle Lillian 2 Sensor) mis [id number] 1 Units every 14 (fourteen) daysGecrispin Field DO Active Continuous Glucose Sensor (FreeStyle Lillian 2 Sensor) mis [id number] 1 Units every 14 (fourteen) daysGecrispin Field DO Active insulin glargine (Lantus SoloStar) 100 UNIT/ML pen [id number] INJECT 10 UNITS UNDER THE SKIN EVERY DAY AT BEDTIME Tom Field DO Active insulin pen needle (B-D UF III MINI PEN NEEDLES) 31G x 5 mm [facility] [id number] Use daily as directed Tom Field DO Active lisinopril 5 MG tablet [id number] Take 1 tablet (5 mg) by mouth Daily Tom Field DO Active metFORMIN XR (Glucophage-XR) 500 MG 24 hr tablet [id number] TAKE 1 TABLET BY MOUTH IN THE EVENING. TAKE WITH MEALS DO NOT CRUSH, CHEW, OR SPLIT. Tom Field DO Active metoprolol succinate XL (Toprol-XL) 25 MG 24 hr tablet [id number] Take 1 tablet by mouth 1 (one) timeeach day. Historical Provider, Active mirabegron ER (Myrbetriq) 50 MG 24 hr tablet [id number] Take 50 mg by mouth 1 (one) time each day at the same time Active Mis. Devices (Rollator Ultra-Light) [facility] [id number] 1 rollator with seat for every day use Tom Field DO Active terbinafine (LamISIL) 250 MG tablet [id number] TAKE 1 TABLET BY MOUTH EVERY DAY Sarah Connell DPM Active traMADol (Ultram) 50 MG tablet [id number] Take 1 tablet (50 mg) by mouth [...] fell in March and was seen at [facility], was not admitted. Did hit his [...] ankle and great toe bilaterally. Coordination Right: Mmacwr-vs-efey normal. Rapid alternating movement abnormality:Left: Kocpns-qz-aaqt normal. Rapid alternating movement abnormality: Bradykinesia noted with MONY. Gait Slow, shuffle gait. Decreased arm swing bilaterally. Uses arms to get out of the chair. Motor Examination RUE Strength deltoid, biceps, triceps, wrist extensors, wrist extensors, wrist flexor, part time flexible clerk strength 5/5. LUE Strength deltoid, biceps, triceps, wrist extensors, wrist extensors, wrist flexor, part time flexible clerk strength 5/5. RLE Strength illopsoas, quadriceps, tibialis [...] male who is being seen in at [facility] [place]25[place]24 with altered mental status and [...] [facility] [...] does not wear. He followed with Dr Ybarra at [facility]. His will call to schedule an appointment to discuss alternative therapies and/or mask. He has an appt to discuss the Insp[employer] device. We discussed the affects and risks associated with untreated LOPEZ Evaluation at [facility] in February 2024: 1. CT scan of [...] understanding. His made an appt with Dr Ybarra, sleep medicine, to discuss untreated LOPEZ Fall precautions discussed. I will see the patient back in 4 months or sooner if needed documented in this encounterNorth [place] City HospitalDmueycobla20-83-0940 History of Present illness Narrative* Tom Field, DO - 06/07/2024 10:00 AM EDT Images from [...] Diagnosis Benign prostatic hyperplasia Coronary artery disease ([facility]/HCC) Diabetic renal disease ([facility]/HCC) Exercise-induced angina ([facility]/HCC) Heart failure ([facility]/HCC) Hyperlipidemia ([facility]/HCC) Hypothyroid ([facility]/HCC) Obstructive sleep apnea syndrome Hypertension ([facility]/HCC) Peripheral vascular disease ([facility]/HCC) Sick sinus syndrome ([facility]) Stage 3a chronic kidney disease (HCC) ([facility]) Stented coronary artery Type 2 diabetes mellitus with hyperglycemia, without long-term current use of insulin ([facility]) Vitamin D deficiency Generalized osteoarthritis DDD (degenerative disc disease), lumbosacral Parkinsonism ([facility]/HCC) Past Medical History: Past Medical History: Diagnosis Date Diabetes ([facility]/HCC) Heart attack ([facility]/HCC) Hypercholesteremia ([facility]/HCC) Hypertension ([facility]) Family History: Family History Problem [...] min Stress: No Stress Concern Present (03/25/2024) [employer] [employer] [facility] - Occupational Stress Questionnaire Feeling of Stress : Not at all Recent Concern: Stress - Stress Concern Present (03/17/2024) [employer] [employer] [facility] - Occupational Stress Questionnaire Feeling of Stress : To some extent Social Connections: Moderately Integrated (03/25/2024) Social Connection and Isolation Panel [NHANES] Frequency of Communication with Friends and Family: Three times a week Frequency of Social Gatherings with Friends and Family: Not on file Attends Congregational Services: More than 4 times per year [...] for every day use Peripheral vascular disease (CMS/HCC) Reviewed vascular surgery notes in office today. Will continue current treatment regimen and followup at next scheduled visit unless problems arise. Hypertension, unspecified type (CMS/HCC) Record Blood Pressures 2-4 times weekly and [...] unspecified vessel or lesion type, unspecified whether oneida or transplanted heart ([facility]) Patient advised to return if symptoms worsen and/or persist despite treatment. Type 2 diabetes mellitus with hyperglycemia, without long-term current use of insulin ([facility]) Labs ordered today, will follow up when [...] morning., Disp: 90 tablet,Rfl: 1 Continuous Glucose Marker Machine (FreeStyle Lillian 2 Mart) device, Dispense 1 reader device for every [...] 90 tablet, Rfl: 0 documented in this encounterNorth [place] City HospitalPrhxwhemum89-35-7808 [facility]* Encounter Date Diagnosis Assessment [...] and his providers would like reassessment of sleepapnea severity. Even more importantly, we need to enable the patient to effectively use the device on a daily basis so CPAP intolerance is a primary issue. I will try to get a download to assess current control and clarify current settings, and I encouraged the patient to use the device every nightand all night. He will return after sleep testing Jun,Intolerance of continuous positive airway pressure (CPAP) ventilation (ICD-10 - Z78.9)He reports he is only using his device [...] impact on his overall health and wellbeing Jun,hronic systolic congestive heart failure (ICD-10 - I50.22)There is a strong, bidirectional relationship between congestive heart failure and severe sleep apnea. Patients with CHF will have sleep apnea a full 60% of the time, and controlling sleep apnea can have a substantial effect on cardiac function after hypoxia and catecholamine overload caused by recurring apneas are controlled. Jun,MI 31.0-31.9,adult (ICD-10 - Z68.31)Weight reduction would be broadly beneficial for overall health, but would also have direct benefits on apnea severity and sleep quality. Even moderate weight reduction can affect LOPEZ and snoring, and in some patients weight reduction can completely resolve sleep apnea Jun,Essential hypertension (ICD-10 - I10)Control of sleep apnea will frequently have a positive effect on blood pressure control, and may add itionally reduce blood pressure lability. Jun,OtherThe diagnosis of Sleep Apnea was reviewed in [...] caloric intake quantity and better food choices.The patientwas advised to call or return any difficulties arise, including changes in symptoms and/or problemswith treatment [employer] Other 03-30-2023 NoteCONSULTATION CONSULTATION DATE: 01/09/2023 TO: [...] the response to his change in medication.[facility] 12-19-2022 NoteCONSULTATION CONSULTATION DATE: 12/26/2022 HISTORY: [...] from a physician they saw at the [facility]. The patient and the are interested in [...] he will be scheduled at six weeks.[facility] [id number] Note CONSULTATION CONSULTATION DATE: 11/12/2022 CHIEF COMPLAINT: [...] his understand and would like to proceed.[facility] HospitalPynumncd93-20-2456 NoteCONSULTATION PROCEDURE DATE: 11/12/2022 PREOPERATIVE DIAGNOSIS: Gluteal [...] superior sacrococcygeal joint injection in the future.[facility] HospitalLzxukdth11-13-3842 NoteCONSULTATION CONSULTATION DATE: 09/03/2022 CHIEF COMPLAINT: Low [...] patient understands and would like to proceed.[facility] HospitalEudliugi76-96-0248 NoteCONSULTATION CONSULTATION DATE: 05/23/2022 This is a [...] and the patient agrees with his plan.[facility] HospitalBcidxazg99-35-8916 NoteCONSULTATION PROCEDURE DATE: 05/23/2022 PRE AND POSTOPERATIVE [...] will be followed up in the office.[facility] [id number] NoteCONSULTATION CONSULTATION DATE: 02/28/2022 This is a [...] to maintain his medications unless otherwise indicated. [facility] Signed and Approved by: DIAMANTE SPAULDING . 03/04/2022 15:07:00[facility]Evaluation noteNo assessment information availableC[facility] Work Phone: Evaluation note* Diagnosis Onset Date Resolution Status Diminished pulses in lower extremity acutePVD (peripheral vascular disease)acute [facility] Work Phone: Evaluation note* Diagnosis Onset Date Resolution Status Diminished pulses in lower extremity acutePVD (peripheral vascular disease)[id number] placement of cardiac pacemakeracuteS/P PTCA (percutaneous transluminal coronary angioplasty)acuteSick sinus syndromeSt. [facility] of [facility] Work Phone: Evaluation note* Diagnosis Onset Date Resolution Status Diminished pulses in lower extremity acutePVD (peripheral vascular disease)[id number] placement of cardiac pacemakeracuteS/P PTCA (percutaneous transluminal coronary angioplasty)acuteSick sinus syndromeacuteCongestive heart failureacuteDiabetes acuteHTN (hypertension)acuteIntolerance to BiPAP/CPAPacuteMyocardial infarction acuteObstructive sleep apneaacute [facility] Work Phone: Evaluation note* Diagnosis Myalgia [...] unspecified vessel or lesion type, unspecified whether oneida or transplanted heart (CMS/HCC) Type 2 diabetes [...] unspecified vessel or lesion type, unspecified whether oneida or transplanted heart ([facility])- Primary Type 2 diabetes mellitus without complication, with long-term current use of insulin ([facility]) Diabetic nephropathy associated with type 2 diabetes mellitus (HCC) ([facility]) Mixed hyperlipidemia ([facility]) Mixed hyperlipidemia Hypertension, unspecified type ([facility]) Hypothyroidism, unspecified type ([facility]) documented in this encounter [facility] [...] unspecified vessel or lesion type, unspecified whether oneida or transplanted heart ([facility])- Primary Type 2 diabetes mellitus with diabetic chronic kidney disease ([facility]) Chronic kidney disease, stage 3b (HCC) ([facility]) Sick sinus syndrome ([facility]) Sinoatrial node dysfunction Hypertensive heart disease with heart failure ([facility]) Unspecified hypertensive heart disease with heart failure Hypertension, unspecified type ([facility]) Mixed hyperlipidemia ([facility]) Mixed hyperlipidemia Stage 3a chronic kidney disease (HCC) ([facility]) Type 2 diabetes mellitus with hyperglycemia, without long-term current use of insulin ([facility]) Raynaud's disease without gangrene documented in this encounter [facility]* Diagnosis Essential (primary) hypertension ([facility]) Unspecified essential hypertension documented in this encounter [facility]* Diagnosis Onychomycosis- Primary Dermatophytosis of nail Type II diabetes mellitus with neurological manifestations ([facility]) Type II or unspecified type [...] unspecified vessel or lesion type, unspecified whether oneida or transplanted heart ([facility]/HCC)- Primary Type 2 diabetes mellitus without complication, with long-term current use of insulin Hypertension, unspecified type ([facility]/HCC) Mixed hyperlipidemia ([facility]) Mixed hyperlipidemia Stage 3a chronic kidney disease (HCC) ([facility]) Type 2 diabetes mellitus with hyperglycemia, without long-term current use of insulin ([facility]) Erectile dysfunction, unspecified erectile dysfunction type documented in this encounter [facility] HealthcareEvaluation note* Diagnosis Routine general medical examination at health care facility- Primary Routine general medical examination at a health care facility documented in this encounter [facility] HealthcareEvaluation note* Diagnosis Type 2 diabetes mellitus without complication, with long-term current use of insulin documented in this encounter [facility] HealthcareEvaluation note* Diagnosis Onset Date Resolution Status Admit Date Coronary artery disease involving oneida coronary artery of oneida heart wi acuteJune 2024 10:11amS/P placement of cardiac pacemakeracuteJune 2024 10:11amS/P PTCA (percutaneous transluminal coronary angioplasty)[facility]:11amSick sinus syndromeacuteAt[facility] 2024 10:11am [facility] Work Phone: Evaluation note* Diagnosis 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 documented in this encounter [facility] HealthcareEvaluation note* Diagnosis Onychomycosis- Primary Dermatophytosis of nail Type II diabetes mellitus with neurological manifestations (HCC) Type II or unspecified type diabetes mellitus with neurological manifestations, not stated as uncontrolled Pain in both feet documented in this encounter [facility] HealthcareEvaluation note* Diagnosis Orthostatic lightheadedness- Primary Parkinson's disease with dyskinesia and fluctuating manifestations (HCC) Hypertension, unspecified type Hypothyroidism, unspecified type Fall, sequela Acute pain of right knee documented in this encounter [facility] HealthcareEvaluation note* Diagnosis Orthostatic lightheadedness- Primary Parkinson's disease with dyskinesia and fluctuating manifestations (HCC) Hypertension, unspecified type Hypothyroidism, unspecified type Fall, sequela Acute pain of right knee Degeneration of intervertebral disc of lumbosacral region, unspecified whether pain present- Primary Type 2 diabetes mellitus with hyperglycemia, without long-term current use of insulin ([facility]) Mixed hyperlipidemia Mixed hyperlipidemia Hypertension, unspecified type Hypothyroidism, unspecified type Parkinson's disease with dyskinesia and fluctuating manifestations (HCC) Stage 3a chronic kidney disease ([facility]) Type 2 diabetes mellitus without complication, with long-term current use of insulin ([facility]) documented in this encounter [facility] HealthcareEvaluation note* Diagnosis Orthostatic lightheadedness- Primary Parkinson's disease with dyskinesia and fluctuating manifestations (HCC) Hypertension, unspecified type Hypothyroidism, unspecified type Fall, sequela Acute pain of right knee Degeneration of intervertebral disc of lumbosacral region, unspecified whether pain present- Primary Type 2 diabetes mellitus with hyperglycemia, without long-term current use of insulin (HCC) Mixed hyperlipidemia Mixed hyperlipidemia Hypertension, unspecified type Hypothyroidism, unspecified type Parkinson's disease with dyskinesia and fluctuating manifestations (HCC) Stage 3a chronic kidney disease ([facility]) Type 2 diabetes mellitus without complication, with long-term current use of insulin (HCC) Hypotension, unspecified hypotension type- Primary Altered mental status, unspecified altered mental status type Falls Bradycardia Other specified cardiac dysrhythmias Sick sinus syndrome (HCC) Sinoatrial node dysfunction Status post cardiac pacemaker procedure Cardiac pacemaker in situ Parkinson's disease with dyskinesia and fluctuating manifestations (HCC) Urinary tract infection without hematuria, site unspecified documented in this encounter [facility] HealthcareEvaluation note* Diagnosis Orthostatic lightheadedness- Primary Parkinson's disease with dyskinesia and fluctuating manifestations (HCC) Hypertension, unspecified type Hypothyroidism, unspecified type Fall, sequela Acute pain of right knee Degeneration of intervertebral disc of lumbosacral region, unspecified whether pain present- Primary Type 2 diabetes mellitus with hyperglycemia, without long-term current use of insulin (HCC) Mixed hyperlipidemia Mixed hyperlipidemia Hypertension, unspecified type Hypothyroidism, unspecified type Parkinson's disease with dyskinesia and fluctuating manifestations (HCC) Stage 3a chronic kidney disease ([facility]) Type 2 diabetes mellitus without complication, with long-term current use of insulin (HCC) Hypotension, unspecified hypotension type- Primary Altered mental status, unspecified altered mental status type Falls Bradycardia Other specified cardiac dysrhythmias Sick sinus syndrome (HCC) Sinoatrial node dysfunction Status post cardiac pacemaker procedure Cardiac pacemaker in situ Parkinson's disease with dyskinesia and fluctuating manifestations (HCC) Urinary tract infection without hematuria, site unspecified Urinary tract infection without hematuria, site unspecified documented in this encounter [facility]* Diagnosis Orthostatic lightheadedness- Primary Parkinson's disease with dyskinesia and fluctuating manifestations (HCC) Hypertension, unspecified type Hypothyroidism, unspecified type Fall, sequela Acute pain of right knee Degeneration of intervertebral disc of lumbosacral region, unspecified whether pain present- Primary Type 2 diabetes mellitus with hyperglycemia, without long-term current use of insulin (HCC) Mixed hyperlipidemia Hypertension, unspecified type Hypothyroidism, unspecified type Parkinson's disease with dyskinesia and fluctuating manifestations (HCC) Stage 3a chronic kidney disease ([facility]) Type 2 diabetes mellitus without complication, with long-term current use of insulin (HCC) Hypotension, unspecified hypotension type- Primary Altered mental status, unspecified altered mental status type Falls Bradycardia Other specified cardiac dysrhythmias Sick sinus syndrome (HCC) Sinoatrial node dysfunction Status post cardiac pacemaker procedure Cardiac pacemaker in situ Parkinson's disease with dyskinesia and fluctuating manifestations (HCC) Urinary tract infection without hematuria, site unspecified Onychomycosis- Primary Dermatophytosis of nail Type II diabetes mellitus with neurological manifestations (HCC) Type II or unspecified type diabetes mellitus with neurological manifestations, not stated as uncontrolled Pain in both feet Corns and callosities Hammer toes of both feet documented in this encounter [facility]* Diagnosis Orthostatic lightheadedness- Primary Parkinson's disease with dyskinesia and fluctuating manifestations (HCC) Hypertension, unspecified type Hypothyroidism, unspecified type Fall, sequela Acute pain of right knee Degeneration of intervertebral disc of lumbosacral region, unspecified whether pain present- Primary Type 2 diabetes mellitus with hyperglycemia, without long-term current use of insulin (HCC) Mixed hyperlipidemia Hypertension, unspecified type Hypothyroidism, unspecified type Parkinson's disease with dyskinesia and fluctuating manifestations (HCC) Stage 3a chronic kidney disease ([facility]) Type 2 diabetes mellitus without complication, with long-term current use of insulin (HCC) Hypotension, unspecified hypotension type- Primary Altered mental status, unspecified altered mental status type Falls Bradycardia Other specified cardiac dysrhythmias Sick sinus syndrome (HCC) Sinoatrial node dysfunction Status post cardiac pacemaker procedure Cardiac pacemaker in situ Parkinson's disease with dyskinesia and fluctuating manifestations (HCC) Urinary tract infection without hematuria, site unspecified Scrotal edema- Primary Edema of male genital organs Type 2 diabetes mellitus without complication, with long-term current use of insulin (HCC) Cellulitis of other specified site Tinea cruris Dermatophytosis of groin and perianal area Chronic bilateral low back pain, unspecified whether sciatica present documented in this encounter [facility]* Diagnosis Orthostatic lightheadedness- Primary Parkinson's disease with dyskinesia and fluctuating manifestations (HCC) Hypertension, unspecified type Hypothyroidism, unspecified type Fall, sequela Acute pain of right knee Degeneration of intervertebral disc of lumbosacral region, unspecified whether pain present- Primary Type 2 diabetes mellitus with hyperglycemia, without long-term current use of insulin (HCC) Mixed hyperlipidemia Hypertension, unspecified type Hypothyroidism, unspecified type Parkinson's disease with dyskinesia and fluctuating manifestations (HCC) Stage 3a chronic kidney disease (CMS-HCC) Type 2 diabetes mellitus without complication, with long-term current use of insulin (HCC) Hypotension, unspecified hypotension type- Primary Altered mental status, unspecified altered mental status type Falls Bradycardia Other specified cardiac dysrhythmias Sick sinus syndrome (HCC) Sinoatrial node dysfunction Status post cardiac pacemaker procedure Cardiac pacemaker in situ Parkinson's disease with dyskinesia and fluctuating manifestations (HCC) Urinary tract infection without hematuria, site unspecified Acquired hammertoes of both feet- Primary Cellulitis of other specified site Tinea cruris Dermatophytosis of groin and perianal area documented in this encounter [facility] HealthcareHistory and physical note Author Manda Lockwood [facility] February 09, 2024 9:53amNote Date/TimeApril 2023 9:20[place] [address] Gastroenterology H&P Signed Patient: Ramon Mariee MR#: [id number] : 1945 Acct:[id number] Age/Sex: 78 / M Adm Date: 4 Loc: Room: Type: [facility] Attending Dr: Manda Lockwood MD Copies to: Valentino Field Jr, DO Manda Lockwood MD~ Date of Service: 02/09/2024 HISTORY & PHYSICAL: Patient's history with special attention to the cardiovascular, pulmonary systems and the current problem was reviewed with the patient immediately prior to the procedure. Present medications and doses reviewed in the EMR. Allergies and pertinent laboratory tests were also re viewedat this time in the EMR. The physical [...] M.D. Documented By: Manda Lockwood MD 02/09/24 09 Signed By: <Electronically signed by Manda Lockwood MD> 02/09/24 0953 [facility] Work Phone: History general Narrative - Reported* Type Description Date Medical History HTN Medical HistoryDMMedical HistoryMIMedical HistoryCADMedical HistoryOSAMedical HistoryCongestive heart failureSurgical History8 stentsSurgical Historypacemaker 03/26/21Hospitalization Historysee above Transit App Other History of Present illness Narrative* moved to [facility] near [place] * had flu sjot/ had covid booster * eye.. dr. mg sommer in [place] * hgm 120 s * no log here, ran out of test strips * agent lantus plus glimep * has a pcp in [facility] * [facility] hypos [facility] Work Phone: History of Present illness Narrative* moved to [facility] near [place] * had flu sjot/ had covid booster * eye.. dr. mg sommer in [place] * hgm 120 s * no log here, * agent lantus plus glimep * has a pcp in [facility] * no hypos * feels well * drove here from [facility] this am * will travel to [place] this winter [employer] [facility] Work Phone: History of Present illness Narrative* feels well * takes meds ok * hobbies... TV * agent lantus plus glimep * hgm 100-130 * cards d.r G * eye in [place] * no sob or chest pains [facility] [facility] Work Phone: Hospital course Narrative No data available for this section Office [facility] Hospital Discharge instructions Additional Instructions DISCHARGE INSTRUCTIONS [...] years. -Follow up with PCP. -Office number [phone]. [facility] Work Phone: Hospital Discharge instructions Additional Instructions If your symptoms return/worsen or you develop any further concerns or symptoms please see your doctor or return to the emergency department immediately. It is imperative that you go over today's visit and all results with your primary care provider.[facility] Work Phone: Hospital Discharge instructions No data available for this section Office [facility] Instructions* Name Dates Details Instructions not documented -[facility] Work Phone: Progress note No data available for this section Office [facility] Reason for referral (narrative)No reason for referral information availableL[facility] Work Phone: Family History Mother Name Dates Details Family history of Adenocarci noma Of The Liver Status:ActiveFamily history of Mother At Age ___ Status:Active Father Name Dates Details Family history of Coronary A rtery Disease(V17.49) Status:ActiveFamily history of Father At Age ___ Status:Active Unknown Family Member Name Dates Details Adenocarcinoma Of The Liver: Mother Status:ActiveMother At Age ___: Mother Status:ActiveCoronary Artery Disease: Father(V17.49) Status:ActiveFather At Age ___: Father Status:Active Unknown Family Member Name Dates Details Adenocarcinoma Of The Liver: Mother Status:ActiveMother At Age ___: Mother Status:ActiveCoronary Artery Disease: Father(V17.49) Status:ActiveFather At Age ___: Father Status:Active Unknown Family Member Name Dates Details Adenocarcinoma Of The Liver: Mother Status:ActiveMother At Age ___: Mother Status:ActiveCoronary Artery Disease: Father(V17.49) Status:ActiveFather At Age ___: Father Status:Active Unknown Family Member Name Dates Details Father At Age ___: Father Status:ActiveCoronary Artery Disease: Father(V17.49) Status:ActiveMother At Age ___: Mother Status:ActiveAdenocarcinoma Of The Liver: Mother Status:Active Unknown Family Member Name Dates Details Adenocarcinoma Of The Liver: Mother Status:ActiveMother At Age ___: Mother Status:ActiveCoronary Artery Disease: Father(V17.49) Status:ActiveFather At Age ___: Father Status:Active Unknown Family Member Name Dates Details Father At Age ___: Father Status:ActiveCoronary Artery Disease: Father(V17.49) Status:ActiveMother At Age ___: Mother Status:ActiveAdenocarcinoma Of The Liver: Mother Status:Active Unknown Family Member Name Dates Details Father At Age ___: Father Status:ActiveCoronary Artery Disease: Father(V17.49) Status:ActiveMother At Age ___: Mother Status:ActiveAdenocarcinoma Of The Liver: Mother Status:Active Unknown Family Member Name Dates Details Father At Age ___: Father Status:ActiveCoronary Artery Disease: Father(V17.49) Status:ActiveMother At Age ___: Mother Status:ActiveAdenocarcinoma Of The Liver: Mother Status:Active Unknown Family Member Name Dates Details Adenocarcinoma Of The Liver: Mother Status:ActiveMother At Age ___: Mother Status:ActiveCoronary Artery Disease: Father(V17.49) Status:ActiveFather At Age ___: Father Status:Active Unknown Family Member Name Dates Details Adenocarcinoma Of The Liver: Mother Status:ActiveMother At Age ___: Mother Status:ActiveCoronary Artery Disease: Father(V17.49) Status:ActiveFather At Age ___: Father Status:Active Unknown Family Member Name Dates Details Father At Age ___: Father Status:ActiveCoronary Artery Disease: Father(V17.49) Status:ActiveMother At Age ___: Mother Status:ActiveAdenocarcinoma Of The Liver: Mother Status:Active Unknown Family Member Name Dates Details Adenocarcinoma Of The Liver: Mother Status:ActiveMother At Age ___: Mother Status:ActiveCoronary Artery Disease: Father(V17.49) Status:ActiveFather At Age ___: Father Status:Active Unknown Family Member Name Dates Details Father At Age ___: Father Status:ActiveCoronary Artery Disease: Father(V17.49) Status:ActiveMother At Age ___: Mother Status:ActiveAdenocarcinoma Of The Liver: Mother Status:Active Unknown Family Member Name Dates Details Adenocarcinoma Of The Liver: Mother Status:ActiveMother At Age ___: Mother Status:ActiveCoronary Artery Disease: Father(V17.49) Status:ActiveFather At Age ___: Father Status:Active Unknown Family Member Name Dates Details Adenocarcinoma Of The Liver: Mother Status:ActiveMother At Age ___: Mother Status:ActiveCoronary Artery Disease: Father(V17.49) Status:ActiveFather At Age ___: Father Status:Active Unknown Family Member Name Dates Details Adenocarcinoma Of The Liver: Mother Status:ActiveMother At Age ___: Mother Status:ActiveCoronary Artery Disease: Father(V17.49) Status:ActiveFather At Age ___: Father Status:Active Unknown Family Member Name Dates Details Adenocarcinoma Of The Liver: Mother Status:ActiveMother At Age ___: Mother Status:ActiveCoronary Artery Disease: Father(V17.49) Status:ActiveFather At Age ___: Father Status:Active Unknown Family Member Name Dates Details Adenocarcinoma Of The Liver: Mother Status:ActiveMother At Age ___: Mother Status:ActiveCoronary Artery Disease: Father(V17.49) Status:ActiveFather At Age ___: Father Status:Active Relationship Condition Age at Onset Recorded Date/T jeff Not Specified Malignant neoplasm of breast Unknown sisterMalignant neoplasm of colonUnknown Relationship Condition Age at Onset Recorded Date/T jeff mother Malignant neoplasm of breast Unknown sisterMalignant neoplasm of colonUnknown Relationship Condition Age at Onset Recorded Date/T jeff mother Malignant neoplasm of breast Unknown Heart diseaseUnknownsisterMalignant neoplasm of colonUnknownfatherHeart disease UnknownsisterHeart diseaseUnknownsisterMalignant neoplasmUnknown Chief Complaint follow dm//bpfollow dm//bphere for DM / bp visit Summary Purpose Advance Directives Advance Directive Response Recorded Date/ Time Advance Directives No September 17, 2019 10:56am Advance Directive Response Recorded Date/ Time Advance Directives No September 17, 2019 9:56am TypeDate RecordedPatient RepresentativeExplanationAdvance Directives and Living Will.. 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 living will Advance Directive Response Recorded Date/ Time Advance Directives No March 15 11:08am Chief Complaint and Reason for Visit Chief Complaint Admit Date 6 months March 15, 2025 10:11 am Z95.0 April 06, 2025 8:00 am Z95.0 April 06, 2025 2:51 pm Reason for Visit Admit Date Coronary artery disease invo lving oneida coronary artery of oneida heart wi March 15, 2025 10:11am S/P [...] Field for PVD I70.213 - Atherosclerosis of oneida arteries of exReason for VisitDiminished pulses in lower extremity PVD (peripheral vascular disease) Chief Complaint Ref from Dr. Field for PVD I70.213 - Atherosclerosis of oneida arteries of ex pacemaker/stents establishReason for VisitDiminished pulses in lower extremity PVD (peripheral vascular disease) Chief Complaint Ref from Dr. Field for PVD I70.213 - Atherosclerosis of oneida arteries of ex pacemaker/stents establishReason for VisitDiminished pulses in lower extremity PVD (peripheral vascular disease) [id number] S/P placement of cardiac pacemaker S/P PTCA (percutaneous transluminal coronary angioplasty) Sick sinus syndrome Chief Complaint Ref from Dr. Field for PVD I70.213 - Atherosclerosis of oneida arteries of ex pacemaker/stents establish I49.1 I50.9 lopez/ interested in inspireReason for VisitDiminished pulses in lower extremity PVD (peripheral vascular disease) [id number] S/P placement of cardiac pacemaker S/P PTCA (percutaneous transluminal coronary angioplasty) Sick sinus syndrome Chief Complaint Ref from Dr. Field for PVD I70.213 - Atherosclerosis of oneida arteries of ex pacemaker/stents establish I49.1 I50.9 lopez/ interested in inspire Z95.0Reason for VisitDiminished pulses in lower extremity PVD (peripheral vascular disease) [id number] S/P placement of cardiac pacemaker S/P PTCA [...] Z95.0 January 05, 2025 2:0 3pm 6 March 15, 2025 10:11 am Chief Complaint Admit Date 6 March 15, 2025 10:11 am Z95.0 April 06, 2025 8:00 am Z95.0 April 06, 2025 2:51 pm Syncope May 02, 2025 12:1 9pm Chief Complaint Admit Date Syncope May 02, 2025 12:1 9pm Z95.0 July 21, 2025 8: 41am Additional Source Comments (unrecognized sect ion and content) No Status Records FoundNo Status Records FoundNo Status Records FoundNo Status Records FoundNo Status Records FoundNo Status Records FoundNo Status Records FoundNo Status Records FoundNo Status Records Found INFORMATION SOURCE (unrecogn ized section and content) DATE CREATED AUTHOR 05/27/2022 [employer] DATE CREATED AUTHOR AUTHOR'S ORGANIZ ATION 09/02/2022 [facility] DATE CREATED AUTHOR AUTHOR'S ORGANIZ ATION 10/21/2022 [facility] DATE CREATED AUTHOR AUTHOR'S ORGANIZ ATION 12/03/2022 [facility] DATE CREATED AUTHOR AUTHOR'S ORGANIZ ATION 02/26/2023 [facility] DATE CREATED AUTHOR AUTHOR'S ORGANIZ ATION 07/03/2024 [facility] DATE CREATED AUTHOR AUTHOR'S ORGANIZ ATION 06/18/[address] [facility] DATE CREATED AUTHOR AUTHOR'S ORGANIZ ATION 07/25/2025 [facility] DATE CREATED AUTHOR AUTHOR'S ORGANIZ ATION 08/16/2025 [facility] EPIC Care Teams (unrecognized sec tion and content) Team Status: Active Member Role Status Dates Benedicto Field DO Primary Care Provider Active Team Status: Inactive Member Role Status Dates Lili Ybarra MD Attending Provider Active Ashley Astudillo Care Provider, Referring ProviderActive Team Status: Inactive Member Role Status Dates Benedicto Field DO Primary Care Provider Active José Miguel Allan ProviderActive Team Status: Inactive Member Role Status Dates Benedicto Field DO Primary Care Provider Active Start: February 09, 2024 End: February 09, 2024José Miguel Wakefield ProviderActiveStart: February 09, 2024 End: February 09, 2024 Team Status: Active Member Role Status Dates Benedicto Field DO Primary Care Provider Active Start: February 09, 2024 José Miguel [place] Provider, Other ProviderActiveStart: February 09, 2024 Team Status: Inactive Member Role Status Dates Benedicto Field DO Primary Care Provider Active Start: June 01, 2024 End: June 01, 2024José Miguel Garg ProviderActiveStart: June 01, 2024 End: June 01, 2024 Team Status: Active Member Role Status Dates Coleman Gale MD Attending Provider Active S tart: June 01, 2024 Ashley Astudillo Care ProviderActiveStart: June 01, 2024 Team Status: Inactive Member Role Status Dates Coleman Gale MD Attending Provider Active S tart: June 01, 2024 End: June 01, 2024Ashley Astudillo Care ProviderActiveStart: June 01, 2024 End: June 01, 2024 Team Status: Inactive Member Role Status Dates Benedicto Field DO Primary Care Provider Active Start: June 15, 2024 End: June 15, 2024GeJosé Miguel Power ProviderActive Start: June 15, 2024 End: June 15, 2024 Team Status: Active Member Role Status Dates Benedicto Field DO Primary Care Provider Active Start: June 15, 2024 José Miguel Baca ProviderActiveStart: June 15, 2024 Team Status: Active Member Role Status Dates Tom Conde MD Lever Tender Active Ashley Astudillo ProviderActive Team Status: Inactive Member Role Status Dates Benedicto Field DO Primary Care Provider Active Start: June 28, 2024 End: June 28egramu Hardin NPAtttoshia ProviderActiveStart: June 28, 2024 End: June 28, 2024 Team Status: Inactive Member Role Status Dates Benedicto Field DO Primary Care Provider Active Start: July 07, 2024 End: July 07, 2024GeJosé Miguel Power ProviderActive Start: July 07, 2024 End: July 07, 2024Team MemberRelationshipSpecialtyStart DateEnd Date Tom Field DO [address] [place] [address] [facility]02/18/23 Tom Field DO [address] [place] [address] PCP - ACO [facility]12/12/23 Charlene Sullivan, [place] [facility]03/17/24Team MemberRelationshipSpecialtyStart Date End Date Tom Field DO [address] [place] [address] PCP - [facility]02/18/23 Tom Field DO [address] [place] [address] [facility] - [facility]12/12/23 Charlene Sullivan RN [facility]03/17/24 Lili Ybarra MD [address] [place] [address] Referring [facility] Ozroneja63/29/24 Sunny Vasquez DO [address] [place] [address] Rmfjovfwoerels42/29/24Team MemberRelationshipSpecialtyStart DateEnd Date Tom Field DO [address] [place] [address] PCP - [facility]02/18/23 Tom Field DO [address] [place] [address] PCP - O [facility]12/12/23 Charlene Sullivan RN [facility]03/17/24 Lili Ybarra MD [address] [place] [address] Referring PhysicianSle Uuqxbewy05/29/24 Sunny Vasquez, DO [address] [place] [address] Tizyofjrzkngiv07/29/24Team MemberRelationshipSpecialtyStart DateEnd Date Tom Field, DO [address] [place] [address] PCP - GeneralFamily Medicine02/18/23 Tom Field, DO [address] [place] [address] PCP - ACO [facility]12/12/23 Charlene Sullivan RN [facility]03/17/24 Lili Ybarra MD [address] [place] [address] Referring [facility] Iyewzeaj31/29/24 Sunny Vasquez, DO [address] [place] [address] Zvegpcqgbnbeyt24/29/24Team MemberRelationshipSpecialtyStart DateEnd Date Tom Field, DO [address] [place] [address] PCP - Generalmi Medicine02/18/23 Tom Field, DO [address] [place] [address] PCP - ACO [facility]12/12/23 Charlene Sullivan RN Registered [facility]03/17/24 Lili Ybarra MD [address] [place] [address] Referring PhysicianSle Rlouabah99/29/24 Sunny Vasquez, DO [address] [place] [address] Rvzxsflwnfsoxs97/29/24Team MemberRelationshipSpecialtyStart DateEnd Date Tom Field, [address] [place] [address] PCP - Generalmily Medicine02/18/23 Tom Field DO [address] [facility] [address] [place] [address] PCP - ACO [facility]12/12/23 Charlene Sullivan RN [facility] Medicine03/17/24 Lili Ybarra MD [address] [place] [address] Referring PhysicianS[facility] Utnvamcy69/29/24 Sunny Vasquez, DO [address] [place] [address] Dkrtmnushjmioc99/29/24 Eusebio Guerin MD [address] [place] [address] Referring FgynvecoaNdmhietqi62/25/24Team MemberRelationshipSpecialtyStart Date End Date Tom Field DO [address] [place] [address] PCP - [facility]02/18/23 Tom Field DO [address] [place] [address] PCP - ACO [facility]12/12/23 Charlene Sullivan, [place] Reg[facility]03/17/24Team MemberRelationshipSpecialtyStart Date End Date Tom Field DO [address] [place] [address] [facility]02/18/23 Tom Field DO [address] [place] [address] [facility] - [facility]12/12/23 Charlene Sullivan, [place] [facility]03/17/24 Lili Ybarra MD [address] [place] [address] Referring [facility]icianS[facility] Mohltgal05/29/24 Sunny Vasquez, DO [address] [place] [address] Cgxkkkvdbizpcj51/29/24 Eusebio Guerin MD [address] [place] [address] Referring FnfyygygsFojogwhiz07/25/24Team MemberRelationshipSpecialtyStart Date End Date Tom Field DO [address] [place] [address] PCP - GeneralFamily Medicine02/18/23 Tom Field DO [address] [place] [address] PCP - ACO [facility]12/12/23 Charlene Sullivan, [place] [facility] Medicine03/17/24 Lili Ybarra MD [address] [place] [address] Referring PhysicianSchildren[facility] [place] Stdiefsx57/29/24 Sunny Vasquez DO [address] [facility] [place] [address] Uguhxxozlcmlwi85/29/24 Eusebio Guerin MD [address] [place] [address] Referring WlhryegcaExndszefz43/25/24Team MemberRelationshipSpecialtyStart Date End Date Tom Field DO [address] [place] [address] PCP - [facility] Medicine02/18/23 Tom Field DO [address] [place] [address] PCP - ACO [facility]12/12/23 Charlene Sullivan, [place] [facility]03/17/24 Lili Ybarra MD [address] [place] [address] Referring PhysicianSle Nmnjitlb96/29/24 Sunny Vasquez, DO [address]ony [place] [address] Pswjylulniqtzt48/29/24 Eusebio Guerin MD [address] [place] [address] Referring VhyuinaxvMvkezyfhk98/25/24Team MemberRelationshipSpecialtyStart Date End Date Tom Field, DO [address] [place] [address] PCP - GeneralFamily Medicine02/18/23 Tom Field, [address] [place] [address] PCP - ACO [place]12/12/23 Charlene Sullivan, [place] [facility]03/17/24Team MemberRelationshipSpecialtyStart Date End Date Tom Field DO [address] [place] [address] PCP - GeneralFamily Medicine02/18/23 Tom Field, DO [address] [place] [address] PCP - ACO [facility]12/12/23 Charlene Sullivan, RN Registered NurseFamily Medicine03/17/24 Lili Ybarra MD [address] [place] [address] Referring PhysicianS[facility] Yiaeemly87/29/24 Sunny Vasquez, DO [address] [place] [address] Zoqjgpagoaztpf74/29/24 Eusebio Guerin MD [address] [place] [address] Referring XtoorfxceZklrbzhce20/25/24Team MemberRelationshipSpecialtyStart Date End Date Tom Field, DO [address] [place] [address] PCP - [facility] Medicine02/18/23 Tom Field, DO [address] [place] [address] PCP - ACO [place]12/12/23 Charlene Sullivan, [place] [facility] Medicine03/17/24Team MemberRelationshipSpecialtyStart Date End Date Tom Field DO [address] [place] [address] PCP - GeneralFamily Medicine02/18/23 Tom Field DO [address] [place] [address] PCP - ACO [facility]12/12/23 Charlene Sullivan, [place] Registered NurseFamily Medicine03/17/24Team MemberRelationshipSpecialtyStart Date End Date Tom Field DO [address] [place] [address] PCP - GeneralFamily Medicine02/18/23 Tom Field, DO [address] [place] [address] PCP - O [facility]12/12/23 Charlene Sullivan RN Registered [facility]03/17/24Team MemberRelationshipSpecialtyStart Date End Date Tom Field DO [address] [place] [address] PCP - [facility]02/18/23 Tom Field, DO [address] [place] [address] PCP - [facility]12/12/23 Charlene Sullivan RN Registered [facility]03/17/24Team MemberRelationshipSpecialtyStart Date End Date Tom Field, DO [address] [place] [address] [facility]02/18/23 Tom Field DO [address] [place] [address] [facility]12/12/23 Charlene Sullivan RN Registered [facility]03/17/24 Lili Ybarra MD [address] [place] [address] Referring [facility]08/10/24 Sunny Vasquez, DO [address] [place] [address] Flnwqvmezoqypo06/29/24 Eusebio Guerin MD [address] [place] [address] Referring KmwbhugjkHoagetfig77/25/24Team MemberRelationshipSpecialtyStart Date End Date Tom Field DO [address] [place] [address] PCP - [facility] Medicine02/18/23 Tom Field DO [address] [place] [address] PCP - ACO [facility]12/12/23 Charlene Sullivan, [place] [facility] Medicine03/17/24 Lili Ybarra MD [address] [place] [address] Referring PhysicianS[facility] Xuyefeto16/29/24 Sunny Vasquez DO [address] [place] [address] Edknbwczcdbbrs03/29/24 Eusebio Guerin MD [address] [place] [address] Referring RftyvsxgyXhftyiuba75/25/24Team MemberRelationshipSpecialtyStart Date End Date Tom Field DO [address] [place] [address] PCP - [facility] Medicine02/18/23 Tom Field DO [address] [place] [address] PCP - ACO [facility]12/12/23 Charlene Sullivan, [place] Registered NurseFamiPiedmont [facility]03/17/24 Lili Ybarra MD [address] [place] [address] Referring PhysicianSle Euodkrhf77/29/24 Sunny Vasquez DO [address] [place] [address] Gjwvfsyqaedwuj33/29/24 Eusebio Guerin MD [address] [place] [address] Referring EuenoeuzvPayhfywxi07/25/24 Team Status: Inactive Member Role Status Dates Benedicto Field DO Primary Care Provider Active Start: October 04, 2024 End: October 04, 2024GeJosé Miguel Power ProviderActive Start: October 04, 2024 End: October 04, 2024 Team Status: Inactive Member Role Status Dates Benedicto Field DO Primary Care Provider Active Start: October 08, 2024 End: October 08, 2024GeJosé Miguel Power ProviderActive Start: October 08, 2024 End: October 08, 2024 Team Status: Active Member Role Status Dates Benedicto Field DO Primary Care Provider Active Start: October 08, 2024 Sandra Baca ProviderActiveStart: October 08, 2024 José Miguel Saldivar ProviderActiveStart: October 08, 2024 Team Status: Inactive Member Role Status Dates Benedicto Field DO Primary Care Provider Active Start: December 20, 2024 End: December 20caleb Vasquez DOAtttoshia ProviderActiveStart: December 20, 2024 End: December 20, 2024 Team Status: Inactive Member Role Status Dates Benedicto Field DO Primary Care Provider Active Start: January 03, 2025 End: January 03rayabdifatah Vasquez Attending ProviderActiveStart: January 03, 2025 End: January 03, 2025 Team Status: Active Member Role Status Dates Benedicto Field DO Primary Care Provider Active Start: January 05, 2025 Sandra Baca ProviderActiveStart: January 05, 2025 Alf Levine MDAttending ProviderActiveStart: January 05, 2025 Team Status: Inactive Member Role Status Dates Benedicto Field DO Primary Care Provider Active Start: January 05, 2025 End: January 05, 2025Gecrispin Conde MDAttending ProviderActiveStart: January 05, 2025 End: January 05, 2025Team MemberRelationshipSpecialtyStart DateEnd Date Tom Field DO [address] [facility] [place] [address] PCP - GeneralFamily Medicine02/18/23 Tom Field DO [address] [place] [address] PCP - ACO [facility]12/12/23 Charlene Sullivan, [place] Registered NurseFami Medicine03/17/24 Lili Ybarra MD [address] [facility] [address] [place] [id number] Referring PhysicianSchildren[facility] [place] Pcdxoffz37/29/24 Sunny Vasquez DO [address] [place] [address] Kvxajajsloqlhg09/29/24 Eusebio Guerin MD [address] [place] [address] Referring ZxjfdrssxLddumrwot39/25/24 Hillary Wilhelm PA [address] [place] [address] Physician AssistantNeurology12/29/24Team MemberRelationshipSpecialtyStart DateEnd Date Tom Field, DO [address] [place] [address] PCP - GeneralFamily Medicine02/18/23 Tom Field DO [address] [place] [address] PCP - ACO [facility]12/12/23 Charlene Sullivan, [place] Registered NurseFamily Medicine03/17/24 Lili Ybarra MD [address] [place] [address] Referring PhysicianSchildren[facility] [place] Pktrejpt45/29/24 Sunny Vasquez, DO [address] [facility] [place] [address] Nyhlilskncvdzm75/29/24 Eusebio Guerin MD [address] [place] [address] Referring OrptashmhCcacrsqud40/25/24 Hillary Wilhelm PA [address] [place] [address] Physician AssistantNeurology12/29/24Team MemberRelationshipSpecialtyStart DateEnd Date Tom Field, DO [address] [place] [address] PCP - GeneralFawily Medicine02/18/23 Tom Field DO [address] [place] [address] PCP - ACO [facility]12/12/23 Charlene Sullivan, RN Registered [facility] Medicine03/17/24 Lili Ybarra MD Referring PhysicianSchildren[facility] [place] Bqhufdnm94/29/24 Sunny Vasquez DO [address] [facility] [place] [address] Elzqpzaldxddhy10/29/24 Eusebio Guerin MD [address] [place], [place] [address] Referring AenfqefwbEafsdtvbu25/25/24 Hillary Wilhelm PA [address] [place] [address] Physician AssistantNeurology12/29/24Team MemberRelationshipSpecialtyStart DateEnd Date Tom Field, DO [address] [place] [address] PCP - [facility]Spring[facility] Medicine02/18/23 Tom Field DO [address] [place] [address] PCP - ACO [facility]12/12/23 Charlene Sullivan, RN Registered NurseFamily Medicine03/17/24 Lili Ybarra MD Referring PhysicianSle Slfqssqd58/29/24 Sunny Vasquez, DO [address] [place] [address] Fggecjzdszzqkh34/29/24 Eusebio Guerin MD [address] [place] [address] Referring OphhuvytiOemfhoxnj00/25/24 Hillary Wilhelm PA [address] [place] [address] Physician AssistantNeurology12/29/24Team MemberRelationshipSpecialtyStart DateEnd Date Tom Field DO [address] [place] [address] PCP - GeneralFamily Medicine02/18/23 Tom Field DO [address] [place] [address] PCP - ACO [facility]12/12/23 Charlene Sullivan, RN Registered NurseFawily Medicine03/17/24 Lili Ybarra MD Referring [facility]icianS[facility] [place] Yuikvuwb45/29/24 Sunny Vasquez, DO [address] [place] [address] Crczlhsffxbyrj20/29/24 Eusebio Guerin MD [address] [place] [address] Referring FocqylrxbKklevmegm15/25/24 Hillary Wilhelm PA [address] [place] [address] Physician AssistantNeurology12/29/24Team MemberRelationshipSpecialtyStart DateEnd Date Tom Field DO [address] [place] [address] PCP - [facility]Spring[facility] Medicine02/18/23 Tom Field DO [address] [place] [address] PCP - ACO [facility]12/12/23 Lili Ybarra MD [address] [place] [address] Referring [facility]icianS[facility] Mtlkgfdh39/29/24 Sunny Vasquez DO [address] [place] [address] Conquuydejlguv60/29/24 Eusebio Guerin MD [address] [place] [address] Referring LepvvacriIyczmcynt85/25/24 Hillary Wilhelm PA [address] [place] [address] Physician AssistantNeurology12/29/24Team MemberRelationshipSpecialtyStart DateEnd Date Tom Field DO [address] [place] [address] PCP - GeneralFamily Medicine02/18/23 Tom Field DO [address] [place] [address] PCP - ACO [facility]12/12/23 Lili Ybarra MD [address] [place] [address] Referring PhysicianSchildren[facility] Bmgbphog07/29/24 Sunny Vasquez DO [address] [place] [address] Ewvjmmeffxuduc95/29/24 Eusebio Guerin MD [address] [place] [address] Referring MkwijgnqtOqmebnjky41/25/24 Hillary Wilhelm PA [address] [place] [address] Physician AssistantNeurology12/29/24Team MemberRelationshipSpecialtyStart DateEnd Date Tom Field DO [address] [place] [address] PCP - GeneralFawily Medicine02/18/23 Tom Field DO [address] [place] [address] PCP - ACO [facility]12/12/23 Lili Ybarra MD [address] [place] [address] Referring PhysicianSleep Xznjuclz62/29/24 Sunny Vasquez DO [address] [place] [address] Pyhqdwayotjcgh20/29/24 Eusebio Guerin MD [address] [place] [address] Referring RdrltivchTycbyrkmf46/25/24 Hillary Wilhelm PA [address] [place] [address] Physician AssistantNeurology12/29/24Team MemberRelationshipSpecialtyStart DateEnd Date Tom Field DO [address] [place] [address] PCP - GeneralFamily Medicine02/18/23 Tom Field DO [address] [place] [address] PCP - [facility]CO [facility]12/12/23 Lili Ybarra MD [address] [place] [address] Referring PhysicianSchildren's [facility] [place] Ikikdznj68/29/24 Sunny Vasquez DO [address] [place] [address] Swjqagusozaeaa75/29/24 Eusebio Guerin MD [address] [place] [address] Referring CasegrpzqMyckvuznf73/25/24 Hillary Wilhelm PA [address] [place] [id number] Physician AssistantNeurology12/29/24 Team Status: Inactive Member Role Status Dates Benedicto Field DO Primary Care Provider Active Start: March 15, 2025 End: March 15, 2025Georroshni Conde , MDAttending ProviderActiveStart: March 15, 2025 End: March 15, 2025 Team Status: Active Member Role Status Dates Benedicto Field DO Primary Care Provider Active Start: April 06, 2025 Tom Conde , BROeferring ProviderActiveStart: April 06, 2025 Sandra Baca ProviderActiveStart: April 06, 2025 Alf Levine , MDAttending ProviderActiveStart: April 06, 2025 Team Status: Inactive Member Role Status Dates Benedicto Field DO Primary Care Provider Active Start: April 06, 2025 End: April 06, 2025Georroshni Conde , MDAttending ProviderActiveStart: April 06, 2025 End: April 06, 2025Georroshni Noelia , MDReferring ProviderActiveStart: April 06, 2025 End: April 06, 2025Team MemberRelationshipSpecialtyStart DateEnd Date Tom Field DO [address] [place] [address] [facility] - [facility]02/18/23 Tom Field DO [address] [place] [address] PCP - ACO [facility]12/12/23 Lili Ybarra MD [address] [place] [address] Referring PhysicianSchildren[facility] Ijspfopp38/29/24 Sunny Vasquez DO [address] [place] [address] Cgtfgujkexqwep26/29/24 Eusebio Guerin MD [address] [place] [address] Referring PluxbvgnmDiodlvdgn22/25/24 Hillary Wilhelm PA [address] [place] [address] Physician AssistantNeurology12/29/24Team MemberRelationshipSpecialtyStart DateEnd Date Tom Field DO [address] [place] [address] PCP - GeneralFamily Medicine02/18/23 Tom Field DO [address] [place] [address] PCP - ACO [facility]12/12/23 Lili Ybarra MD [address] [place] [address] Referring PhysicianSchildren[facility] Jpxdesiy33/29/24 Sunny Vasquez DO [address] [place] [place] [address] Knefrumwaztnfg86/29/24 Eusebio Guerin MD [address] [place] [place] [address] Referring JzoncyaldFyalryaki85/25/24 Hillary Wilhelm PA [address] [place] [address] Physician AssistantNeurology12/29/24 Team Status: Active Member Role Status Dates Benedicto Field DO Primary Care Provider Active Start: May 02, 2025 Nnamdi Dozier DOEmerjennifer ProviderActiveStart: May 02, 2025 Alf Levine MDAttending ProviderActiveStart: May 02, 2025 Team MemberRelationshipSpecialtyStart DateEnd Date Tom Field DO [address] [place] [address] PCP - GeneralFamily Medicine02/18/23 Tom Field DO [address] [place] [address] PCP - ACO [facility]12/12/23 Lili Ybarra MD [address] [place] [address] Referring PhysicianSleep Efoxkqsc49/29/24 Sunny Vasquez DO [address] [place] [address] Elalnuwlbnmnhr55/29/24 Eusebio Guerin MD [address] [place] [address] Referring CcnsrogwlHdqpridph55/25/24 Hillary Wilhelm PA [address] [place] [address] Physician AssistantNeurology12/29/24Team MemberRelationshipSpecialtyStart DateEnd Date Tom Field DO [address] [place] [address] PCP - Generalmily Medicine02/18/23 Tom Field DO [address] [place] [address] PCP - ACO [facility]12/12/23 Lili Ybarra MD [address] [place] [address] Referring PhysicianSchildren[facility] [place] Acueaish70/29/24 Sunny Vasquez DO [address] [place] [address] Vkxffhsddettvg11/29/24 Eusebio Guerin MD [address] [place] [address] Referring SlvilpmoeIstdfzfun71/25/24 Hillary Wilhelm PA [address] [place] [address] Physician AssistantNeurology12/29/24Team MemberRelationshipSpecialtyStart DateEnd Date Tom Field DO [address] [place] [address] [facility]CP - [facility] Medicine02/18/23 Tom Field DO [address] [place] [address] PCP - ACO Reach12/12/23 Lili Ybarra MD [address] [place] [address] Referring PhysicianSleep Ljyxmwne51/29/24 Sunny Vasquez DO [address] [place] [address] Wveteyswxwxxer71/29/24 Eusebio Guerin MD [address] [place] [address] Referring FoyjmgnttBtsnzwxyv43/25/24 Hillary Wilhelm PA [address] [place] [address] Physician AssistantNeurology12/29/24Team MemberRelationshipSpecialtyStart DateEnd Date Tom Field DO [address] [place] [address] PCP - GeneralFamily Medicine02/18/23 Tom Field DO [address] [place] [address] PCP - ACO Reach12/12/23 Lili Ybarra MD [address] [place] [address] Referring PhysicianSleep Qygrynwz21/29/24 Sunny Vasquez DO [address] [place] [address] Eswoywprztwqyx56/29/24 Eusebio Guerin MD [address] [place] [address] Referring ArjvggtbdCmiicktth29/25/24 Hillary Wilhelm PA [address] [place] [address] Physician AssistantNeurology12/29/24Team MemberRelationshipSpecialtyStart DateEnd Date Tom Field DO [address] [place] [address] [facility]/23 Tom Field DO [address] [place] [address] PCP - ACO [facility]12/12/23 Lili Ybarra MD [address] [place] [address] Referring PhysicianSle Znqbjxpz41/29/24 Sunny Vasquez DO [address] [place] [address] Hagewumklrhulz76/29/24 Eusebio Guerin MD [address] [place] [address] Referring IwchvwutwTqdyfeskd54/25/24 Hillary Wilhelm PA [address] [place] [address] Physician AssistantNeurology12/29/24Team MemberRelationshipSpecialtyStart DateEnd Date Tom Field DO [address] [place] [address] PCP - Generalmily Medicine02/18/23 Tom Field DO [address] [place] [address] PCP - ACO Reach12/12/23 Lili Ybarra MD [address] [place] [address] Referring [facility] Njlnfokz34/29/24 Sunny Vasquez DO [address] [place] [address] Jusxnbjopnizuu24/29/24 Eusebio Guerin MD [address] [place] [address] Referring KpcvtshsiGokrpilgq51/25/24 Hillary Wilhelm PA [address] [place] [id number] Physician AssistantNeurology12/29/24Team MemberRelationshipSpecialtyStart DateEnd Date Tom Field DO [address] [place] [address] PCP - [facility] Medicine02/18/23 Tom Field DO [address] [place] [address] PCP - ACO [facility]12/12/23 Lili Ybarra MD [address] [place] [address] Referring [facility]icianSKadle[facility]08/10/24 Sunny Vasquez, DO [address] [place] [address] Hwiwityraqcrex49/29/24 Eusebio Guerin MD [address] [place] [address] Referring DowmhcznoGraesalke60/25/24 Hillary Wilhelm PA [address] [place] [address] Physician AssistantNeurology12/29/24Team MemberRelationshipSpecialtyStart DateEnd Date Tom Field DO [address] [place] [address] PCP - GeneralFamily Medicine02/18/23 Tom Field DO [address] [place] [address] PCP - ACO [facility]12/12/23 Lili Ybarra MD [address] [place] [address] Referring [facility]icianSchildren[facility] Zoofozui33/29/24 Sunny Vasquez DO [address] [place] [address] Viktykofxuwltv45/29/24 Eusebio Guerin MD [address] [place] [address] Referring PwhtboguaOlavyqyfn31/25/24 Hillary Wilhelm PA [address] [place] [address] Physician AssistantNeurology12/29/24 Team Status: Active Member Role Status Dates Benedicto Field DO Primary Care Provider Active Start: July 21, 2025 Tom Conde MDOther ProviderActiveStart: July 21, 2025 Alf Levine MDAttending ProviderActiveStart: July 21, 2025 Team MemberRelationshipSpecialtyStart DateEnd Date Tom Field DO [address] [place] [address] [facility] - [facility]02/18/23 Tom Field DO [address] [place] [address] PCP - ACO [facility]12/12/23 Lili Ybarra MD [address] [place] [address] Referring PhysicianSchildren[facility] Grsoywux83/29/24 Sunny Vasquez DO [address] [place] [address] Vjcxnichhttvqc56/29/24 Eusebio Guerin MD [address] [place] [address] Referring FwqgopgfcZjqktonke22/25/24 Hillary Wilhelm PA [address] [place] [address] Physician AssistantNeurology12/29/24Team MemberRelationshipSpecialtyStart DateEnd Date Tom Field, DO [address] [place] [address] PCP - [facility] Medicine02/18/23 Tom Field, DO [address] [place] [address] PCP - ACO [facility]12/12/23 Lili Ybarra MD [address] [place] [address] Referring PhysicianSchildren[facility] Chvwgsbh54/29/24 Sunny Vasquez, DO [address] [place] [address] Zhxirdfqpkajzz74/29/24 Eusebio Guerin MD [address] [place] [address] Referring WmaadocihQkjmphnmu59/25/24 Hillary Wilhelm PA [address] [facility] [address] [place] [address] Physician AssistantNeurology12/29/24Te MemberRelationshipSpecialtyStart DateEnd Date Tom Field, DO [address] [place] [address] PCP - [facility] Medicine02/18/23 Tom Field DO [address] [place] [address] PCP - ACO [facility]12/12/23 Lili Ybarra MD [address] [place] [address] Referring PhysicianSchildren[facility] Ycupbego23/29/24 Sunny Vasquez, DO [address] [place] [address] Xzumrktrsekujt38/29/24 Eusebio Guerin MD [address] [place] [address] Referring YxkcptqltYyvdnxalc20/25/24 Hillary Wilhelm PA [address] [place] [address] Physician AssistantNeurology12/29/24Team MemberRelationshipSpecialtyStart DateEnd Date Tom Field DO [address] [place] [address] [facility]02/18/23 Tom Field DO [address] [place] [address] PCP - ACO [facility]12/12/23 Lili Ybarra MD [address] [place] [address] Referring PhysicianSchildren[facility] Blrcoimj78/29/24 Sunny Vasquez DO [address] [place] [address] Vicescgoblitov23/29/24 Eusebio Guerin MD [address] [place] [address] Referring WvipdahsyFekthzyoq51/25/24 Hillary Wilhelm PA [address] [place] [address] Physician AssistantNeurology12/29/24Team MemberRelationshipSpecialtyStart DateEnd Date Tom Field, DO [address] [place] [address] [facility]02/18/23 Tom Field DO [address] [place] [address] PCP - ACO [facility]12/12/23 Lili Ybarra MD [address] [place] [address] Referring PhysicianSchildren[facility] Zpfnckqj96/29/24 Sunny Vasquez DO [address] [place] [address] Dnkninexgohscd63/29/24 Eusebio Guerin MD [address] [place] [address] Referring LnmxwvvowMytvjsrcm43/25/24 Hillary Wilhelm PA [address] [place] [address] Physician AssistantNeurology12/29/24Team MemberRelationshipSpecialtyStart DateEnd Date Tom Field DO [address] [place] [address] [facility]02/18/23 Tom Field DO [address] [place] [address] PCP - ACO Reach12/12/23 Lili Ybarra MD [address] [place] [address] Referring PhysicianSchildren[facility] Rslujvmc88/29/24 Sunny Vasquez DO [address] [place] [address] Qfkbqlbjwjrakb53/29/24 Eusebio Guerin MD [address] [place] [address] Referring WpauryekbJwnpdztmw79/25/24 Hillary Wilhelm PA [address] [place] [address] Physician AssistantNeurology12/29/24Team MemberRelationshipSpecialtyStart DateEnd Date Tom Field, DO [address] [place] [address] PCP - [facility] Medicine02/18/23 Tom Field DO [address] [place] [address] PCP - ACO Reach12/12/23 Lili Ybarra MD [address] [place] [address] Referring PhysicianSleep Xejsuqum48/29/24 Sunny Vasquez DO [address] [place] [address] Pmosdmyljikvds02/29/24 Eusebio Guerin MD [address] [place] [address] Referring MwrewxrcxFisioprcn65/25/24 Hillary Wilhelm PA [address] [place] [address] Physician AssistantNeurology12/29/24 Goals (unrecognized section and content) Goals may be documented in a n alternate section Reason for Visit (unrecogniz ed section and content) ReasonOnset DateCommentsMed Dhkaea0606/28/2025ReasonCommentsFallReasonCommentsMohs Micrographic SurgeryReasonCommentsMed Change RequestReasonOnset DateCommentsMed Sywjcx2802/03/2025ReasonCommentsSkin CheckReasonCommentsResultsDiabetesPain HypertensionHyperlipidemiaReasonOnset DateCommentsMed Kpmbjx4210/21/2024Reason CommentsSleep ApneaS/p DISEReasonCommentsDiabetesHypothyroidismHypertension ReasonCommentsParkinson's DiseaseReasonCommentsInspireNew Patient: InspireReason CommentsMed Refill FOR RECORDS PERTAINING TO PATIENTS WHO [...] BE BASED ON THE PRIMARY CLINICAL RECORDS. [facility] provides no warranty or guarantee of the accuracy or completeness of information in this document.
--- NOTE | 2025-09-07 11:04 | PM.CN ---
Consult Note: HPI Data of Consult Patient: known to practice within the last 3 years Consult date: 09/07/25 Requesting Physician: Machelle Jimenez NP Primary Care Provider: Valentino ANDRES Consult Narrative Reason for consult: back pain Narrative: Ramon Mariee a pleasant 80 year old male presents for evaluation and management of chronic low back pain. Today rating pain 2/10, pain is increased with walking standing ADLS bending lifting and decreased with rest and sleep. longstanding hx of low back pain secondary to lumbar spondylosis and lumbar stenosis. no benefit to heat or ice. mild relief from baclofen and tylenol, moderate relief from tramadol. since last visit patient has sparingly utilized tramadol, continues to engage in PT and HEP with moderate benefit in functional ability. cc:: CC: Machelle Jimenez NP Review of Systems ROS Status of ROS 10 or more systems reviewed and unremarkable except as noted in history and below [facility] Medical History Pacemaker ?Z95.0 - Presence of cardiac pacemaker (ICD-10) Low back pain ?M54.50 - Low back pain, unspecified (ICD-10) Diabetes ?E11.9 - Type 2 diabetes mellitus without complications (ICD-10) Acute prostatitis ?N41.0 - Acute prostatitis (ICD-10) High cholesterol ?E78.00 - Pure hypercholesterolemia, unspecified (ICD-10) Hypertension ?I10 - Essential (primary) hypertension (ICD-10) Congestive heart failure ?I50.9 - Heart failure, unspecified (ICD-10) Angina at rest ?I20.8 - Other forms of angina pectoris (ICD-10) Heart attack ?I21.9 - Acute myocardial infarction, unspecified (ICD-10) Surgical History H/O heart artery stent ?Z95.5 - Presence of coronary angioplasty implant and graft (ICD-10) History of arthroplasty of left knee ?Z96.652 - Presence of left artificial knee joint (ICD-10) History of arthroplasty of right knee ?Z96.651 - Presence of right artificial knee joint (ICD-10) History of cholecystectomy ?Z90.49 - Acquired absence of other specified parts of digestive tract (ICD-10) Meds Home Medications and Allergies Home Medications ?Medication ?Instructions ?Recorded ?Confirmed ?Type amlodipine 10 mg tablet 5 mg PO QDAY 03/13/23 06/08/25 History aspirin 325 mg tablet,delayed 81 mg PO QDAY 03/13/23 12/14/24 History release atorvastatin 20 mg tablet 20 mg PO QDAY 03/13/23 12/14/24 History insulin glargine 100 unit/mL (3 10 unit subcut QAM 03/13/23 12/14/24 History mL) subcutaneous pen (Lantus Solostar U-100 Insulin) lisinopril 10 mg tablet 5 mg PO QDAY 03/13/23 12/14/24 History metoprolol succinate 25 mg PO QDAY 03/13/23 12/14/24 History omega 6-ulp-qtg-fish oil 1,000 mg 1 cap PO QDAY 03/13/23 12/14/24 History (120 mg-180 mg) capsule (Fish Oil) tramadol 50 mg tablet 50 mg PO BID 11/20/23 12/14/24 History acetaminophen 500 mg tablet 500 mg PO .8 hours 03/12/24 12/14/24 History (Tylenol Extra Strength) carbidopa 25 mg-levodopa 100 mg 1 tab PO BID 03/12/24 12/14/24 History tablet (Sinemet) dapagliflozin propaned 10 1 tab PO DAILY 06/08/25 06/08/25 History mg-metformin ER 500 mg tablet, ext rel 24hr (Xigduo XR) mirabegron 25 mg tablet,extended 25 mg PO DAILY 06/08/25 06/08/25 History release 24 hr tamsulosin 0.4 mg capsule 0.4 mg PO DAILY 06/08/25 06/08/25 History terbinafine HCl 250 mg tablet 250 mg PO DAILY 06/08/25 06/08/25 History Allergies Allergy/AdvReac Type Severity Reaction Status Date / Time No Known Drug Allergies Allergy Verified 12/14/24 06:53 Exam Constitutional Documenting provider has reviewed patient's vital signs: yes Common normals: no apparent distress, oriented x3, healthy appearing, alert and well nourished General appearance: cooperative HENTX Common normals: normocephalic, hearing grossly normal bilaterally and moist oral mucous membranes Head and scalp: normocephalic Eye Common normals: PERRL Pupil: PERRL Neck & C-Spine Common normals: full ROM General: normal visual inspection Chest Common normals: inspection of chest normal Respiratory Common normals: normal respiratory effort, no retractions and no use of accessory muscles Back & Pelvis Lumbar spine/lower back: ROM limited, pain with ROM and straight leg raise negative bilaterally Extremity Common normals: normal to inspection and full ROM Neuro Common normals: oriented x3 Sensorium/orientation: alert Gait (neuro): antalgic Motor exam: strength 5/5 throughout and no movement abnormalities noted Psych Common normals: mental status grossly normal, thought process normal, cooperative, affect normal, speech normal and activity/motor behavior normal Speech: normal speech Thought process: normal thought process Results Additional Findings Additional findings: If on a controlled substance or opioids, I have checked an [place] report on this patient and there are no aberrancies noted in the prescribing history.??If on a controlled substance or opioid a drug screen was completed and reviewed within the last year, and if there has not been a drug screen completed we ordered one today to monitor higher risk, state monitored pain medication use. As part of providing excellent, safe, comprehensive care, the following was completed at our patient's visit: 1. A medication reconciliation and review to ensure accurate knowledge of current/active medications, including asking our patients to inform us about any vbav-srm-ffoxopu medications or herbal remedies/nutritional supplements/alternative remedies. 2. A review to specifically ensure our patients have had annual screening for screening for depression, screening for tobacco use, and screening for unhealthy alcohol use. For concerning screenings had a discussion with the patient, provided patient education, and recommended follow-up with primary care provider when appropriate. If patient noted with a risk of falling, they received education on strength, gait, and balance training to prevent future risk of falling. Portions of this note may have been carried over from the previous visit and updated as appropriate. Please note this office utilizes paper charting in addition to the electronic medical record. A list of current medications, vitals, and PMH is available there as the clinical staff outside of myself do not have access to [employer] charting during the clinic day operations. As part of providing quality comprehensive care the current medications, vitals, and PMH were reviewed in the paper chart. 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 The patient does not report intolerable side effects. The patient is NOT opioid naive and non-pharmacologic and non-opioid treatment has failed to significantly relieve the patient's pain and improve functionality. The patient has a diagnosis that is related to a somatic or visceral pain etiology. ? ?? I reviewed with the patient the potential risks and side effects with the use of? opioid medications including but not limited to respiratory depression,? sedation, and even . Within the last 12 months I have verified the patient has access to naloxone should? these effects occur. The patient was advised to let? their family know they had Naloxone in case they would need to administer? the medication. I advised the patient to avoid the use of any other? sedation substances including alcohol, THC, and benzodiazepines while? taking opioid medications due to the risk of compounding side effects and? detrimental outcomes. within the last 12 months I have reviewed the [employer], pain treatment agreement and urine drug screen.? ?? A drug screen was completed within the last year, and no aberrancies were noted regarding their use of controlled substances. The patient understands they are subject to the terms and conditions of the pain contract that they have signed. ? ?? I have checked an [place]AR[place] report on this patient today and there are no aberrancies noted in the prescribing history.? (3) Chronic myofascial pain: (4) Frequent falls: Assessment and Plan: continue PT as tolerated, continue to utilize walker Plan change tramadol 50mg daily prn moderate to severe pain, 10 tabs to last at least 30 days in the future continue f/u with PCP and neurology for parkinsons continue otc tylenol prn f/u 3 months for medication management, sooner if needed
== END 2025-09-07 10:32 | disposition home or self-care (01) ==
LOC: PM 10:32
PROVIDERS: PCP Family Medicine; Visit Provider Nurse Practitioner
DX: M47.816 Spondylosis without myelopathy or radiculopathy, lumbar region (principal); Z79.891 Long term (current) use of opiate analgesic; M79.18 Myalgia, other site; R29.6 Repeated falls
CPT/HCPCS: G0463

== ENCOUNTER 2025-09-30 19:55 | Emergency (ER) | payer MEDICARE, SELFPAY ==
--- OUTSIDE RECORDS SUMMARY | 2024-10-28 05:10 | XMS_ITS ---
Author Organization [facility] in [place] Address [address] [place] [address] Care Team Providers Care Program Schedule Clerk Name Role Phone Gerald Field DO Primary Care Provider Ethan Heredia [phone] REASON FOR VISIT 1 year f/u with PSA Encounters Encounter Location Date Provider Diagnosis Urology [facility] [address] [address] 10/28/2024 Ethan Chowdary Plan Of Treatment No Information Progress Notes * Ramon CRUZ BDOB: [birth year] (80 yo M)Acc No.[id number]:10/28/2024 UNLOCKED PROGRESS NOTE Patient:?Ramon CRUZ :?Ethan Chowdary MDDOB:1945???Age:79 Y ???Sex:MaleDate:10/28/2024Phone:[phone]:[id number] [facility] [address] [place] [id number]:Gerald Field DO Subjective: * Chief Complaints: * 1 . 1 year f/u with PSA. * Medical History: Objective: * Vitals: Assessment: Plan: * Treatment: * * Electronic signature of Ethan Chwodary MD, [id number] on 09/30/2025 at 08:36 PM ESTSign off status: PendingVisit Status:?R/S (Rescheduled) * Provider: Rao Chowdary MD Date: 0 10/28/2024 Generated for Printing/Faxing/eTransmitting on:?09/30/2025 08:36 PM EST
--- OUTSIDE RECORDS SUMMARY | 2025-06-16 04:30 | XMS_ITS ---
Author Organization [facility] [place] Address [address] [place] [place] [address] Care Team Providers Care Packager Or Packer And Weigher Name Role Phone Gerald Field DO Primary Care Provider Ethan Heredia [phone] REASON FOR VISIT 6 mo f/u w PVR Encounters Encounter Location Date Provider Diagnosis Urology [facility] [address] [address] 06/16/2025 Ethan Chowdary Plan Of Treatment No Information Progress Notes * Ramon CRUZ BDOB: [birth year] (80 yo M)Acc No.[id number]:06/16/2025 UNLOCKED PROGRESS NOTE Patient:?Ramon CRUZ :?Ethan Chowdary MDDOB:1945???Age:79 Y ???Sex:MaleDate:06/16/2025Phone:[phone]:[address] [place] [address]Pcp:Gerald Field DO Subjective: * Chief Complaints: * 1 . 6 mo f/u w PVR. * Medical History: Objective: * Vitals: Assessment: Plan: * Treatment: * * Electronic signature of Ethan Chowdary MD, [id number] on 09/30/2025 at 08:36 PM ESTSign off status: PendingVisit Status:?CANC (Cancelled) * Provider: Rao Chowdary MD Date: 0 06/16/2025 Generated for Printing/Faxing/eTransmitting on:?09/30/2025 08:36 PM EST
--- OUTSIDE RECORDS SUMMARY | 2025-09-20 11:20 | XMS_ITS | Encounter Summary ---
Author Organization [facility] Address [address] [place] [address] [address] Care Team Providers Care Principal Security Architect Name Role Phone Gerald Field DO Primary Care Provider [phone] Gerald Field DO Unavailable Gregory Ybarra MD Unavailable [phone] Sunny Vasquez DO Unavailable [phone] Eusebio Guerin MD Unavailable Hillary Wilhelm Unavailable Encounter Details DateTypeDepartmentCare Team (Latest Contact Info)Onolxapeqhx78/09/2025 11:20 AM ESTOffice Visit [facility] [address] [place] [phone] Gerald Field DO [address] [place] [address] 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, unspecified vessel or lesion type, unspecified whether koi or transplanted heart (Primary Dx); Tinea cruris; Diabetic nephropathy associated with type 2 diabetes mellitus (HCC); Mixed hyperlipidemia; Hypertension, unspecified type; Hypothyroidism, unspecified type; Parkinson's disease with dyskinesia and fluctuating manifestations (HCC); Type 2 diabetes mellitus with hyperglycemia, without long-term current use of insulin (HCC) Social History Tobacco UseTypesPacks/DayYears UsedDateSmoking Tobacco: FormerCigarettes1.522 Smokeless Tobacco: NeverAlcohol UseStandard Drinks/WeekCommentsNot Currently0 (1 standard drink = 0.6 oz pure alcohol)caffeine intake : [id number] Health Literacy AnswerDate RecordedHow often do you need to have someone help you when you read instructions, pamphlets, or other written material from your doctor or pharmacy? Mmqecv6703/25/2024Social Connection and Isolation PanelAnswerDate Recorded Frequency of Communication with Friends and FamilyNot on file03/25/2024Frequency of Social Gatherings with Friends and FamilyNot on file03/25/2024How often do you attend yazdanism or cheondoism services?More than 4 times per year03/25/2024o you belong to any clubs or organizations such as yazdanism groups, unions, fraternal or athletic groups, or school groups?No03/25/2024How often do you attend meetings of the clubs or organizations you belong to?Never03/25/2024re you , , , , never , or living with a partner?Kkqtwgt0403/25/2024UDIT-CAnswerDate RecordedQ1: How often do you have a [...] hard at all03/25/2024HQ-2AnswerDate RecordedPatient Health Questionnaire-2 Score0 09/20/2025[facility] [place] [facility] - Occupational Stress QuestionnaireAnswerDate [...] steady place to sleep or slept in [facility] (including now)?No03/17/2024Housing Stability Vital SignAnswerDate RecordedIn the last 12 months, was there a time when you were not able to pay the mortgage or rent on time?No03/25/2024In the past 12 months, how many times have you moved where you were living?t any time in the past 12 months, were you homeless or living in a senior care (including now)?No 03/25/2024Sex and Gender InformationValueDate RecordedSex Assigned at BirthNot on fileLegal IreAyyb7612/25/2022 10:58 PM EDTGender IdentityNot on fileSexual OrientationNot on filedocumented as of this encounter Last Filed Vital Signs Vital SignReadingTime TakenCommentsBlood Kgyaymrt815/6009/20/2025 11:11 AM EST Aqvil311009/20/2025 11:11 AM FNQHeamsiwqpac57 ??C (96.8 ??F)09/20/2025 11:11 AM ESTRespiratory Rate--Oxygen Panrboejlr03%09/20/2025 11:11 AM ESTInhaled Oxygen Concentration--Laroyv00.9 kg (174 lb)09/20/2025 11:11 AM VWFZmaxks164.6 cm (5' 6 )09/20/2025 11:11 AM ESTBody Mass Index28.0809/20/2025 11:11 AM ESTdocumented in this encounter Functional Status * Over the past 2 weeks, how often have you been bothered by any of the following problems?QuestionAnswerDate of AssessmentAuthorLittle interest or pleasure in doing thingsNot at all09/20/2025 11:10 AM Frankie Nagel LPNFeeling down, depressed, or hopelessNot at all09/20/2025 11:10 AM EST Frankie Cordon LPNPatient Health Questionnaire-2 Qitds07011/21/2024 11:10 AM Frankie Nagel LPN documented as of this encounter Progress Notes * Gerald Field DO - 09/20/2025 11:20 AM ESTAssociated Problem(s): Coronary artery disease Problem is stable, will continue with current treatment plan. Call or return to clinic if any changes occur Orders: Lipid panel; Future Comprehensive metabolic panel; Future CBC and differential; Future * Gerald Field DO - 09/20/2025 11:20 AM ESTAssociated Problem(s): Diabetic renal disease (HCC) Reviewed labs and/or imaging at today. improved significantly, Will continue current treatment regimen and follow up at next scheduled visit unless problems arise. Orders: Comprehensive metabolic panel; Future CBC and differential; Future * Gerald Field DO - 09/20/2025 11:20 AM ESTAssociated Problem(s): Hyperlipidemia Orders: Lipid panel; Future Comprehensive metabolic panel; Future CBC and differential; Future * Gerald Field DO - 09/20/2025 11:20 AM ESTAssociated Problem(s): Hypertension Record Blood Pressures 2-4 times weekly and record. Return with readings at next appointment. Call with readings if sees significant changes Orders: Microalbumin / creatinine urine ratio; Future Comprehensive metabolic panel; Future * Gerald Field DO - 09/20/2025 11:20 AM ESTAssociated Problem(s): Hypothyroid Labs ordered today, will follow up when results available Orders: TSH; Future T4, free; Future T3; Future * Gerald Field DO - 09/20/2025 11:20 AM ESTAssociated Problem(s): Parkinsonism (HCC) Problem is stable, but seems to be having side effects to meds so will call neuro for further recommendations * Gerald Field DO - 09/20/2025 11:20 AM ESTAssociated Problem(s): Type 2 diabetes mellitus with hyperglycemia, without long-term current use of insulin (HCC) Labs ordered today, will follow up when results availableReviewed labs and/or imaging at ov today. Will continue current treatment regimen and follow up at next scheduled visit unless problems arise. Orders: Microalbumin / creatinine urine ratio; Future Hemoglobin A1c; Future * Gerald Field DO - 09/20/2025 11:20 AM EST Images from the original note were not included. Subjective ?Quick Links Last Note in Specialty Snapshot Current Meds Patient ID: Ramon Mariee is a 80 y.o. male who presents for Results, Diabetes, Hyperlipidemia, Hypothyroidism, Hypertension. Pt presents to the office for a routine OV and to review lab results. Diabetes: Sugars have been well controlled. Rash: Still using nystatin powder. States when he does not use the redness on groin area reoccurs. SOB: Pt spouse states throughout the day pt has heavy breathing and more anxiousness. States this has ongoing. Does not occur at bedtime. States they have to talk to neurology regarding. Feels it maybe related to medication for parkinson's. Diabetes He presents for his follow-up diabetic visit. He has type 2 diabetes mellitus. Hypertension This is a chronic problem. The current episode started more than 1 year ago. The problem is unchanged. Hyperlipidemia This is a chronic problem. The current episode started more than 1 year ago. The problem is controlled. Medication Documentation Review Audit Reviewed by Adwoa Luis MA (Insurance Instructor) on 08/25/25 at 1353 Medication Order Taking? Sig Documenting Provider Last Dose Status acetaminophen (Tylenol) 500 MG tablet [id number] Take 1,000 mg by mouth Daily Active Aspirin Low Dose 81 MG EC tablet [id number] TAKE 1 TABLET BY MOUTH EVERY DAY Gerald Field DO Active atorvastatin (Lipitor) 20 MG tablet [id number] Take 1 tablet (20 mg) by mouth at bedtime Gerald Field DO Active carbidopa-levodopa (Sinemet) 25-100 MG tablet [id number] TAKE 2 TABLET BY MOUTH AT 8AM, 2 tablet at eleven, 2 tablets at 2PM, AND 2 tablet at 5PM Gerald Field DO Active ciprofloxacin (Cipro) 500 MG tablet [id number] Take 1 tablet (500 mg) by mouth in the morning and 1 tablet (500 mg) before bedtime. Do all this for 5 days. Gerald Field DO 08/20/25 2356 Continuous Glucose Sensor (FreeStyle Wilfred 2 Sensor) [facility] [id number] 1 Units every 14 (fourteen) daysGerald Field DO Active dapagliflozin-metFORMIN ER (Xigduo XR) 10-500 MG [id number] Take 1 tablet by mouth in the morning. Take with meals. Gerald Field DO Active entacapone (Comtan) 200 MG tablet [id number] Take 200 mg by mouth in the morning and 200 mg in the evening and 200 mg before bedtime. Gerald Field, DO Active insulin glargine (Lantus SoloStar) 100 UNIT/ML pen [id number] IF BLOOD SUGAR BELOW 150 DO NOT TAKE, IF BLOOD SUGAR BETWEEN 150 AND 250 INJECT 5 UNITS UNDER THE SKIN. IF BLOOD SUGAR OVER 250 INJECT 10 UNITS ONLY ONCE DAILY. Gerald Field, DO Active insulin pen needle (B-D UF III MINI PEN NEEDLES) 31G x 5 mm [facility] [id number] Use daily as directed Gerald Field DO Active lisinopril 5 MG tablet [id number] TAKE 1 TABLET BY MOUTH EVERY DAY Gerald Field DO Active metoprolol succinate XL (Toprol-XL) 25 MG 24 hr tablet [id number] Take 1 tablet (25 mg) by mouth Daily Gerald Field DO Active mirabegron ER (Myrbetriq) 50 MG 24 hr tablet [id number] Take 50 mg by mouth 1 (one) time each day at the same time Active nystatin (Mycostatin) 419106 UNIT/GM powder [id number] Apply topically in the morning and before bedtime. Gerald Field DO Active psyllium (Metamucil) 0.36 g capsule [id number] Take 6 capsules by mouth Daily Historical Provider, MDActive sildenafil (Viagra) 100 MG tablet [id number] Take 1 tablet (100 mg) by mouth Daily as needed for erectile dysfunction Gerald Field DO Active tamsulosin (Flomax) 0.4 MG 24 hr capsule [id number] Take 0.4 mg by mouth at bedtime Active terbinafine (LamISIL) 250 MG tablet [id number] Take 1 tablet (250 mg) by mouth Daily Tanja Connell DPM Active traMADol (Ultram) 50 MG tablet [id number] Take 1 tablet (50 mg) by mouth every 8 (eight) hours if needed for severe pain Gerald Field, DO Active Review of Systems ?Quick [...] Diabetes GI Hypertension Thyroid Assessment & Plan Tinea cruris Patient advised to return if symptoms worsen and/or persist despite treatment. 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 Call or return to clinic if any changes occur Orders: Lipid panel; Future Comprehensive metabolic panel; Future CBC and differential; Future Diabetic nephropathy associated with type 2 diabetes mellitus (HCC) Reviewed labs and/or imaging at today. improved significantly, Will continue current treatment regimen and follow up at next scheduled visit unless problems arise. Orders: Comprehensive metabolic panel; Future CBC and differential; Future Mixed hyperlipidemia Orders: Lipid panel; Future Comprehensive metabolic panel; Future CBC and differential; Future Hypertension, unspecified type Record Blood Pressures 2-4 times weekly and record. Return with readings at next appointment. Call with readings if sees significant changes Orders: Microalbumin / creatinine urine ratio; Future Comprehensive metabolic panel; Future Hypothyroidism, unspecified type Labs ordered today, will follow up when results available Orders: TSH; Future T4, free; Future T3; Future Parkinson's disease with dyskinesia and fluctuating manifestations (HCC) Problem is stable, but seems to be having side effects to meds so will call neuro for further recommendations Type 2 diabetes mellitus with hyperglycemia, without long-term current use of insulin (HCC) Labs ordered today, will follow up when results availableReviewed labs and/or imaging at today. Will continue current treatment regimen and follow up at next scheduled visit unless problems arise. Orders: Microalbumin / creatinine urine ratio; Future Hemoglobin A1c; Future [1] acetaminophen (Tylenol) 500 MG tablet Aspirin Low Dose 81 MG EC tablet atorvastatin (Lipitor) 20 MG tablet carbidopa-levodopa (Sinemet) 25-100 MG tablet Continuous Glucose Sensor (FreeStyle Wilfred 2 Sensor) misc dapagliflozin-metFORMIN ER (Xigduo XR) 10-500 MG entacapone (Comtan) 200 MG tablet insulin glargine (Lantus SoloStar) 100 UNIT/ML pen insulin pen needle (B-D UF III MINI PEN NEEDLES) 31G x 5 mm mis lisinopril 5 MG tablet metoprolol succinate XL (Toprol-XL) 25 MG 24 hr tablet mirabegron ER (Myrbetriq) 50 MG 24 hr tablet nystatin (Mycostatin) [id number] UNIT/GM powder psyllium (Metamucil) 0.36 g capsule sildenafil (Viagra) 100 MG tablet tamsulosin (Flomax) 0.4 MG 24 hr capsule terbinafine (LamISIL) 250 MG tablet traMADol (Ultram) 50 MG tablet documented in this encounter Plan of Treatment DateTypeDepartmentCare Team (Latest Contact Info)Qyrucfeoklm92/06/2026 2:45 PM ESTOffice Visit [facility] [address] [place] [phone] Tanja Connell DPM [address] [place] [address] 11/01/2025 10:00 AM ESTProcedure Visit [facility] [address] [place] [phone] Tanja Connell DPM [address] [place] [address] 02/01/2026 9:05 AM EDTOffice Visit [facility] [address] [place] [phone] Mary Davies MD [address] [place] [address] 02/13/2026 10:20 AM EDTOffice Visit [facility] [address] [place] [phone] Gerald Field DO [address] [place] [address] NameTypePriorityAssociated DiagnosesOrder ScheduleMicroalbumin / creatinine urine ratioLabRoutine Hypertension, unspecified type Type 2 diabetes mellitus with hyperglycemia, without long-term current use of insulin (HCC) Expected: 02/27/2026 (Approximate), Expires: 06/17/2026Lipid panelLabRoutine 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, unspecified vessel or lesion type, unspecified whether koi or transplanted heart Mixed hyperlipidemia Expected: 02/27/2026 (Approximate), Expires: 06/17/2026omprehensive metabolic panelLabRoutine 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, unspecified vessel or lesion type, unspecified whether koi or transplanted heart Diabetic nephropathy associated with type 2 diabetes mellitus (HCC) Mixed hyperlipidemia Hypertension, unspecified type Expected: 02/27/2026 (Approximate), Expires: 06/17/2026BC and differentialLab Routine 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, unspecified vessel or lesion type, unspecified whether koi or transplanted heart Diabetic nephropathy associated with type 2 diabetes mellitus (HCC) Mixed hyperlipidemia Expected: 02/27/2026 (Approximate), Expires: 06/17/2026Hemoglobin X3tTlcPsbspbk Type 2 diabetes mellitus with hyperglycemia, without long-term current use of insulin (HCC) Expected: 02/27/2026 (Approximate), Expires: 06/17/2026TSHLabRoutine Hypothyroidism, unspecified type Expected: 02/27/2026 (Approximate), Expires: 06/17/2026T4, freeLabRoutine Hypothyroidism, unspecified type Expected: 02/27/2026 (Approximate), Expires: 06/17/20269906N1MobLspiklr Hypothyroidism, unspecified type Expected: 02/27/2026 (Approximate), Expires: 06/17/2026documented as of this encounter Visit Diagnoses Diagnosis 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, unspecified vessel or lesion type, unspecified whether koi or transplanted heart- Primary Tinea cruris Dermatophytosis of groin and perianal area Diabetic nephropathy associated with type 2 diabetes mellitus (HCC) Mixed hyperlipidemia Hypertension, unspecified type Hypothyroidism, unspecified type Parkinson's disease with dyskinesia and fluctuating manifestations (HCC) Type 2 diabetes mellitus with hyperglycemia, without long-term current use of insulin (HCC) documented in this encounter Additional Health Concerns AssessmentNoted TimePHQ-9 Depression Total Score: 6003/01/2025 10:00 AM EDT documented as of this encounter Care Teams Team MemberRelationshipSpecialtyStart DateEnd Date Gerald Field DO [address] [place] [address] [facility] - [facility] Gerald Field DO [address] [place] [address] PCP - ACO [facility]12/12/23 Gregory Ybarra MD [address] [place] [address] Referring PhysicianSherrick campus Uwacsfun95/29/24 Sunny Vasquez DO [address] [facility] [place] [address] Vztnpvhzcyhfuv45/29/24 Eusebio Guerin MD [address] [place] [address] [place] [address] Referring EeqlztuenIwrhoqltv10/25/24 Hillary Wilhelm PA [address] [place] [address] Physician AssistantNeurology12/29/24documented as of this encounter
--- OUTSIDE RECORDS SUMMARY | 2025-09-27 08:30 | XMS_ITS | Continuity of Care Document ---
Author Organization [facility] Address [address] [place] [address] Phone Care Team Providers Care Metal Bed Assembler Name Role Phone Benedicto Field DO Primary Care Provider Gerald Conde MD Other Provider Alf Levine MD Attending Provider Gerald Conde MD Attending Provider Care Teams Patient Care Team Team Status: Active Member Role/Relationship Status Dates Gerald Conde MD Author Agent Active Ashley Astudillo Care ProviderActive Visit Care Team Team Status: Active Member Role/Relationship Status Dates Benedicto Field DO Primary Care Provider Active Start: July 21, 2025 Gerald Conde MDOther ProviderActiveStart: July 21, 2025 José Miguel Saldivar ProviderActiveStart: July 21, 2025 Patient Care Team Team Status: Inactive Member Role/Relationship Status Dates Benedicto Field DO Primary Care Provider Active Start: September 27, 2025 End: September 27, 2025GeJosé Miguel Power ProviderActive Start: September 27, 2025 End: [place] 16th, 2025 Chief Complaint and Reason for Visit Chief Complaint Admit Date Z95.0 July 21, 2025 8: 41am 6 month f/u September 27, 2025 12:47pm Reason for Visit Admit Date Coronary artery disease invo lving absentee-shawnee coronary artery of absentee-shawnee heart wi September 27, 2025 12:47pm S/P placement of cardiac pacemaker Decem 2024 12:47pm S/P PTCA (percutaneous transluminal juanito nary angioplasty) September 27, 2025 12:47pm Sick sinus syndrome September 27, 2025 12:47pm Allergies, Adverse Reactions, Alerts Allergen Type Severity Reaction Last Updated Verified Status Comments lactose Allergy Moderate Unknown Reaction September 27, 2025 12:54pm Yes Active intolerant hydrocodone Allergy Unknown Nausea September 12:54pm Yes Active Social History Smoking Status Status Start Date End Date Date of Observa tion Never smoked tobacco (finding) May 02, 2025 1:59pm Observation Status Observation Response Date of Response Legal Sex Male (finding) [facility] Family History Relationship Condition Age at Onset Recorded Date/T jeff mother Malignant neoplasm of breast Unknown Heart diseaseUnknownsisterMalignant neoplasm of colonUnknownfatherHeart disease UnknownsisterHeart diseaseUnknownsisterMalignant neoplasmUnknown Problems Active Problems Problem Diagnosis/Recorded Date Onset Date Status C omments Obstructive sleep apnea June 01, 2024 9:44am Unknown Active unable to tolerate cpap S/P placement of cardiac pacemaker June 15, 2024 1:52pm Unknown Active DiabetesAugust 2019 9:41amUnknownActiveDiminished pulses in lower extremityAugust 2023 10:08amUnknownActiveCongestive heart failureAugust 2023 9:44amUnknownActiveSick sinus syndromeSept2023 11:01am UnknownActiveIntolerance to BiPAP/CPAPSeptember 2023 2:28pmUnknownActive Myocardial infarctionAugust 2023 9:43amUnknownActivePAC (premature atrial contraction)June 15, 2024 10:13amUnknownActivePVD (peripheral vascular disease)June 01, 2024 10:08amUnknownActiveCoronary artery disease involving absentee-shawnee coronary artery of absentee-shawnee heart without angina pectorisSept2023 1:51pmUnknownActiveS/P PTCA (percutaneous transluminal coronary angioplasty)June 15, 2024 1:52pmUnknownActiveHTN (hypertension)June 04, 2020 9:41amUnknownActiveInactive/Resolved Problems Problem Diagnosis/Recorded Date Onset Date Status C omments Orthostatic lightheadedness May 02, 2025 3:47pm Unknown Resolved CellulitisAugust 2019 10:26amUnknownResolvedProblem List clean-up per request of Phys. EHR CmteDementiaMay 2023 2:58amUnknownResolvedPre-syncope May 02, 2025 3:47pmUnknownResolvedElevated troponinMay 2023 2:58am UnknownResolvedAMS (altered mental status)February 25, 2024 2:58amUnknownResolved Parkinson diseaseMay 2023 12:00pmUnknownResolvedDehydrationMay 2023 2:58amUnknownResolved Medications Medication Status Dose Units Route Directions Qty Days Refills S tart Date Stop Date End Date Reason(s) Instructions Adherence Carbidopa-Levodopa (Sinemet) 25-100 mg tablet Active 2 TAB PO Four times daily 240 30 3 May 02, 2025 1:44pm Complies with drug therapyAtorvastatin 20 mg hhibvmDbahcn52HCYRRhjopUsbzbn 2019 11:00pmComplies with drug therapyLisinopril 20 mg sggpclPbdvufxxyfxl29WLPE DailyAugust 2019 11:00pmSeptember 2023 10:18amClopidogrel 75 mg izdylhJdnzlhmyfxxt43OEHUIbnkmZynazy 2019 11:00pmSeptember 2023 11:00amAspirin (Ecotrin Low Strength) 81 mg Tablet,Delayed Release (Dr/Ec)Active 81MGPODailyAugust 2019 11:00pmComplies with drug therapyLevothyroxine 25 mcg tabletDiscontinuedAugust 2019 11:00pmApril 2023 1:19pm Glimepiride 1 mg hxsytyPcwbzdqqwbsb8JTRPKaolsMcgnof 2019 11:00pmMay 2023 12:58pmDoxycycline Hyclate 100 mg hrjzhqrIcxyrafsydnt925EBVCYheke June 03, 2020 11:00pmApril 2023 1:19pmDoxycycline Monohydrate 100 mg qxxnwsDqmmqwqpbluy840HWCJNdhyp dailyFebruary 23, 2024 11:00pmMa2023 12:58pm started on 02/18/24 x7 days.Oxybutynin Chloride 10 mg tablet extended release 24hr Voojlpsyfoct03LFIDJofzkBzs 13th, 2024 11:00pmMay 2023 12:58pmMetoprolol Succinate 25 mg tablet extended release 24 yyPfnhhn13SIZKDgbybKuj 2023 11:00pmComplies with drug therapyTramadol 50 mg anoemzYlongn89RKVIQkoca as needed for painFebruary 23, 2024 11:00pmFreeTextSi tablet as needed Orally Once a day; Note: Source Status: Taking; Provider: Tate Jenkins ( ) Complies with drug therapyInsulin Glargine (Lantus Solostar U-100 Insulin) 100 unit/mL (3 mL) insulin yzyMinsbrnaczmu9WPUPNPWJOGTjyyxjdTwt 13th, 2024 11:00pm February 26, 2024 4:19pmFreeTextSi to 10 units as directed Subcutaneous; Note: Source Status: Taking; Provider: Tate Jenkins ( )Carbidopa- Levodopa (Sinemet) 25-100 mg SsrjymLcenczvxhbmg6PYSNV9q/Day with okkhd844017Xhq 15th, 2024 11:00pmSeptember 2023 10:19amInsulin Glargine (Lantus Solostar U-100 Insulin) 100 unit/mL (3 mL) insulin lpuBmirosxksxel8MQOXQOXWOKWjeybix94Fna 16th, 2024 4:19pmDecch 2024 9:51amFreeTextSi to 12 units as directed Subcutaneous; Note: Source Status: Taking; Provider: Tate Jenkins ( )Diphenhydramine-Acetaminophen (Tylenol Pm Extra Strength) 25-500 mg hoiehtAeqiwdviegod1PQKLEHqiwq at bedtime as needed for sleep and painMarch 2024 11:00pmJuly 2024 11:29amInsulin Glargine (Lantus Solostar U-100 Insulin) 100 unit/mL (3 mL) insulin jyoFwzkdrkgrqei34SNERAMCRWTQvwxyyzDyjwa 2024 11:00pmDecember 2024 12:56pmFreeTextSi to 12 units as directed Subcutaneous; Note: Source Status: Taking; Provider: Tate Jenkins ( ) take when bs over 122Tamsulosin (Flomax) 0.4 mg capsuleActive0.4MGPO DailyMarch 2024 11:00pmComplies with drug therapyMetformin 500 mg tablet extended release 24 hrDiscontinuedMGPOAugust 2023 11:00pmSeptember 2023 10:19amMetformin 500 mg tablet extended release 24 uzJpsldwvargim461CPVR DailySept2023 10:17amDecemb2023 10:32amMetformin 500 mg tablet extended release 24 afJckceshozzvi443HECMMfrlc dailyDece2023 10:30amJune 2024 9:20amCarbidopa-Levodopa (Sinemet) 25-100 mg tablet Xhvqgficyzut7TBABCToej times dailySept2023 10:17amDecemb2023 10:32amMirabegron (Myrbetriq) 50 mg tablet extended release 24 isBmmqso77EMYT Every morningSept2023 11:00pmComplies with drug therapyLisinopril 5 mg pssfeeOxqfxm1BNRETlasxVapumzden 2nd, 2024 11:00pmComplies with drug therapy Amlodipine 10 mg xdrgzeNlufdrvtvpom27FRGSSuabc morningSept2023 11:00pmDecemb2024 12:55pmTerbinafine Hcl 250 mg nbexfuVzlifd184NVLY Every morningSept2023 11:00pmComplies with drug therapyOmega 5-Hjk-Wqj-Fish Oil (Fish Oil) 1,000 mg (120 mg-180 mg) dpnovdgOcdcgj5DDYEWMivgz June 14, 2024 11:00pmComplies with drug therapyCarbidopa-Levodopa (Sinemet) 25-100 mg ufdcewRjeyzuhvtihe0MWYIK.COMPLEX2023 10:29am May 02, 2025 1:48pmtake 2 tabs x4bWduiclxcagl Propaned-Metformin (Xigduo Xr) 10-500 mg tablet, IR - ER, biphasic 69cnPiimhg5DYWEHEbjsy morningJun2024 11:00pmComplies with drug therapyBaclofen 10 mg dhngqsPzzkheclcjkz45OCBYEptef at bedtimeJun2024 11:00pmJuly 2024 11:28amSildenafil 100 mg tablet Oyvddjaisptg132MJLRWevcoIhqa 2nd, 2025 11:00pmDebanner [facility] 2024 12:58pm Psyllium Husk (Metamucil) 0.4 gram capsuleActive0.4GMPOTwice dailyJun2024 11:00pmComplies with drug therapySildenafil 100 mg wcyyhlLbukru360ZQAZHcahj as neededDece2024 12:56pmComplies with drug therapyEntacapone 200 mg vrrvmqMpjwqf329KMUH.[facility] 2024 12:55ko205 mg orally 2 to 3 times a day;Complies with drug therapy Immunizations Immunization Event Date Not Given Reason Dose Number Seamer Lot Number Reason(s) Given Vaccine Information Statement (VIS) Detail Administration Location COVID-19 mRNA-1273 (Moderna) November 07, 2020 COVID-19 mRNA-1273 (Moderna)December 05OVID-19 mRNA-1273 (Moderna) August 09OVID-19 mRNA-1273 (Moderna)January 24OVID-19 mRNA Bivalent Booster (Pfizer)August 24OVID-19 (PFIZER) 12Y and older[facility] OVID-19 (PFIZER) 12Y and olderJanuary 2024Influenza, trivalentOctober 2023 Vital Signs Vital Reading Result Reference Range Collection Date/Time Height 66 [in_i] September 27, 2025 1:98oyZeiwun80.83 kgDecember 2024 1:00pmHeart Rate55 /bds50-897Nrjkyifr 16th, 2025 1:00pmRespiratory rate18 /bhm90-36Kzatvqzt 2024 1:00pmOxygen saturation by Pulse bkaflwbh64 %95-100September 27, 2025 1:00pmBP Pjytwntw877 mm[Hg]100-140Dece2024 1:00pmBP Rjqsevspk94 mm[Hg]60-100Deceer 2024 1:00pmBMI (Body Mass Index)28.4 kg/h7Styhgyjp 2024 1:00pm Advance Directives Advance Directive Response Recorded Date/ Time Advance Directives No March 15 10:08am Insurance Providers Guarantor Ramon Mariee Address [address] [facility] [address] [facility] [address]Ihcubef Info.Home Phone: Payer Group Member ID Coverage Type Subscriber Relationship to Subscriber Effective Date Expiration Date Medicare [id number] B Kolker Id: [id number] [address] [address] Home Phone: Email: [email or web address] Outpatient Id: PLAN [id number] Encounters Encounter Location(s) Arrival/Admit Date Discharge/Departure Date Discharge/Departure Disposition Provider(s) Non-patient / [facility]visit -[facility] July 212024 8:41am Julia Mareparted Physician/Provider [facility]pm[facility] 20[facility] 1:27pmDischarged to home care or self care (routine discharge)Gerald Conde MD Recent Diagnosis Onset Date Admit Date Coronary artery disease invo lving absentee-shawnee coronary artery of absentee-shawnee heart wi Unknown September 27, 2025 12:47pm S/P placement of cardiac pacemaker Unknown September 27, 2025 12:47pm S/P PTCA (percutaneous trans luminal coronary angioplasty) Unknown September 27, 2025 12:47pm Sick sinus syndrome Unknown September 12:47pm Assessments Diagnosis Onset Date Resolution Status Admit Date Coronary artery disease involving absentee-shawnee coronary artery of absentee-shawnee heart wi acuteSeptember 27, 2025 12:47pmS/P placement of cardiac pacemakeracuteSeptember 27, 2025 12:47pmS/P PTCA (percutaneous transluminal coronary angioplasty)acute September 27, 2025 12:47pmSick sinus syndromeacuteSeptember 27, 2025 12:47pm Plan of Treatment Author Yudy Cortez [facility] 2024 12:52pm # CAD s/p multiple PCI (total of 8 stents in the past, last episode was 3 stents placed in 2016) ??? no angina. # SSS s/p PPM (Medtronic Millie XT DR MRI implanted 03/26/2021) ??? functioning normally. # Hypertension ??? well-controlled. # Other: Sleep apnea, Parkinson's disease, diabetes. EKG 07/02/2024 ??? atrial paced rhythm, 61 bpm, LBBB. Pacemaker interrogation 02/26/2024 ??? battery life 10 years, normal thresholds and impedance. Programmed DDDR-60. RA pacing 87.6%, RV pacing 0.05%. No events. Pacemaker interrogation 07/10/2024 ??? battery life 10 years, underlying sinus yari in the 50s, normal threshold and impedance. RA pacing 91.6%. Echo 10/04/2024 ??? EF 60-65%, mild LVH, G1 DD, mildly dilated LA, trace TR, RVSP 40 mmHg. Pacemaker interrogation 01/05/2025 ??? normal sensing, threshold and impedance. Atrial paced 99%. Battery life 9.4 years. No significant mode switch. Lipid panel from an almost 02/22/25 ??? cholesterol 135, LDL 69, HDL 54, triglycerides 58. - I reviewed the recent pacemaker interrogation above. - Cont aspirin, Lipitor, amlodipine, lisinopril, metoprolol. No refills needed today. - He usually has his labs done by PCP and will bring them in at the next visit. - F/u 6 months Future Tests Future scheduled test information is unavailable Pending Tests Pending diagnostic test information is unavailable Future Visits Future appointment information is unavailable Future Procedures Future procedure information is unavailable Future Medications Future medication information is unavailable Patient Instructions Patient instructions are unavailable
--- OUTSIDE RECORDS SUMMARY | 2025-09-29 13:45 | XMS_ITS | Encounter Summary ---
Author Organization [facility] Address [address] [place] [address] Care Team Providers Care Dining Services Director Name Role Phone Gerald Field DO Primary Care Provider Gerald Field DO Unavailable [phone] Gregory Ybarra MD Unavailable [phone] Sylvesterlupe Sunny Yusuf DO Unavailable [phone] Eusebio Guerin MD Unavailable Hillary Wilhelm Unavailable Encounter Details DateTypeDepartmentCare Team (Latest Contact Info)Vmlumrscqrv21/18/2025 1:45 PM ESTOffice Visit [facility] [address] [place] [phone] Tanja Connell DPM [address] [place] [address] Hammer toe of right foot (Primary Dx); Pain of toe of right foot Social History Tobacco UseTypesPacks/DayYears UsedDateSmoking Tobacco: FormerCigarettes1.522 Smokeless Tobacco: NeverAlcohol UseStandard Drinks/WeekCommentsNot Currently0 (1 standard drink = 0.6 oz pure alcohol)caffeine intake : gnelI2652 Health Literacy AnswerDate RecordedHow often do you need to have someone help you when you read instructions, pamphlets, or other written material from your doctor or pharmacy? Exqnzh8503/25/2024Social Connection and Isolation PanelAnswerDate Recorded Frequency of Communication with Friends and FamilyNot on file03/25/2024Frequency of Social Gatherings with Friends and FamilyNot on file03/25/2024How often do you attend amish or anabaptist services?More than 4 times per year03/25/2024o you belong to any clubs or organizations such as amish groups, unions, fraternal or athletic groups, or school groups?No03/25/2024How often do you attend meetings of the clubs or organizations you belong to?Never03/25/2024re you , , , , never , or living with a partner?Knlruec1903/25/2024UDIT-CAnswerDate RecordedQ1: How often do you have a [...] hard at all03/25/2024HQ-2AnswerDate RecordedPatient Health Questionnaire-2 Score0 09/20/2025Finintermountain healthcare [place] of Occupational Health - Occupational Stress QuestionnaireAnswerDate [...] were you homeless or living in a custodial (including now)?No 03/25/2024Sex and Gender InformationValueDate RecordedSex Assigned at BirthNot on fileLegal CucElqy6412/25/2022 10:58 PM EDTGender IdentityNot on fileSexual OrientationNot on filedocumented as of this encounter Patient Instructions * Patient Instructions* Tanja Connell DPM - 09/29/2025 1:45 PM EST POST-OPERATIVE INSTRUCTIONS FOR TENOTOMY A podiatric surgical procedure has been performed on your foot. In a few hours, you will feel a throbbing sensation in your toe. This is the wearing off of the anesthetic used to numb your toe. You can take Tylenol, Aspirin or Advil if you wish for the minor pain. A certain amount of bleeding is normal as it cleanses the area. INSTRUCTIONS FOR CARE Keep the dressing on for 24 hours or until tomorrow morning. Keep it clean and dry. After removing the sponge and wrap part of the dressing, try to keep the long tape (Steri-strips) in place to keep the toe splinted. The tape will need to be changed every 2-3 days. You can bathe and shower as normal, but avoid soaking the foot as this will keep the tape from sticking. When reapplying the steri-strips, use a prep pad if needed to help make the skin sticky and help the tape to stay in place. Apply the tape to the bottom of the toe first at the tip of the toe. Then fold the tape over the top of the toe as you are holding the toe in a straight position. Be careful not to pull the toe up higher than the rest of the toes. We want to splint the toe to keep the tendon from reattaching and causing the hammertoe to recur. If any problems arise, please call the office at . If you reach the tow operator, inform them that you had a tenotomy procedure performed and you are experiencing problems. documented in this encounter Progress Notes * Tanja Connell DPM - 09/29/2025 1:45 PM EST Images from the original [...] like to proceed with the tenotomy procedure on the right foot that we discussed due to his persistent pain and symptoms. Patient presents today for follow-up flexor tenotomy of the left 2nd digit. he has been doing the splinting and has noted significant improvement in regards to the appearance and the position of the toes. he did not have any pain following the procedure. No other complaints. No other pedal complaints. Exam: General Examination: GENERAL APPEARANCE: awake, aware of surroundings, in no acute distress FOOT EXAM: 09/29/2025 Vascular: DORSALIS PEDIS PULSE: 2/4 bilateral POSTERIOR TIBIAL PULSE: 1/4 bilateral TEMPERATURE GRADIENT: warm to cool EDEMA: none CAPILLARY FILLING TIME(sec): capillary fill intact bilateral digits less than 3 secs Neurologic: VIBRATORY: decreased to the hallux IPJ bilateral SEMMES-MIKE 5.07 MONOFILAMENT: decreased along the toes, intact to the plantar ball of the foot and toes Dermatologic: SKIN FINDINGS: normal, wound to the plantar 2nd digit left is healed. 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 The risks, benefits, and alternatives were discussed. Adigital block was performed using a total of 3 cc of 2% Lidocaine plain. After a Betadine prep, attention was directed to the right 2nd digit where a flexible hammertoe deformity was noted. Using an 18 gauge needle at the plantar proximal interphalangeal joint, the tendon was released and freed from the attachment points. There was release of the contracture of the toe was noted. The toe was splinted with steri-strips and patient instructed on home care. Post-operative instructions were given. Patient to RTC in 2 weeks for follow-up. Surgery Follow-up Examination: Patient was advised that they can discontinue splinting to the prior hammertoe deformity. The toe is in a good anatomic position with no residual evidence of contracture. I did dispense a crest pad and instructed patient on use if there is any residual pain to the toe. Patient has return to normal shoe gear, activity and bathing without any restrictions. They should follow-up if they notice any persistent pain or problems. documented in this encounter Plan of Treatment DateTypeDepartmentCare Team (Latest Contact Info)Egekpwhnmrm04/06/2026 2:45 PM ESTOffice Visit [facility] [place] [facility] [address] [place] [phone] Tanja Connell DPM [address] [place] [address] 11/01/2025 10:00 AM ESTProcedure Visit [facility] [place] [facility] [address] [place] [phone] Tanja Connell DPM [address] [place] [address] 02/01/2026 9:05 AM EDTOffice Visit [facility] [place] [facility] [address] [place] [phone] Mary Davies MD [address] [place] [address] 02/13/2026 10:20 AM EDTOffice Visit [facility] [place] [facility] [address] [place] [phone] Gerald Field DO [address] [place] [address] documented as of this encounter Visit Diagnoses Diagnosis Hammer toe of right foot- Primary Pain of toe of right foot documented in this encounter Additional Health Concerns AssessmentNoted TimePHQ-9 Depression Total Score: 6003/01/2025 10:00 AM EDT documented as of this encounter Care Teams Team MemberRelationshipSpecialtyStart DateEnd Date Gerald Field DO [address] [place] [address] PCP - GeneralFamily Medicine02/18/23 Gerald Field DO [address] [place] [address] PCP - ACO Reach12/12/23 Gregory Ybarra MD [address] [place] [address] Referring PhysicianScity of [facility] Wxijhazm31/29/24 Sunny Vasquez DO [address] [place] [address] Coafifmqtcrpbi09/29/24 Eusebio Guerin MD [address] [place] [address] [place] [address] Referring ZbsiwcwwwYrvqmgoxy96/25/24 Hillary Wilhelm PA [address] [place] [address] Physician AssistantNeurology12/29/24documented as of this encounter
[2025-09-30 19:59] VITALS: BP 128/66; PULSE 75; TEMP 36.8; O2SAT 98; BMI 26.3
--- NOTE | 2025-09-30 20:09 | XR_ITS ---
The [place] [id number] Patient Name: BEATRICE CRUZ MRN: [id number] date: 1945 Sex: M Assigned Patient Location: ED.MAIN Current Patient Location: ED.MAIN Accession/Order Number: [id number] Exam Date: 09/30/2025 20:40 Report Date: 09/30/2025 21:49 At the request of: OLI ARMSTRONG MD Procedure: XR knee RT 3V XR knee RT 3V 09/30/2025 9:08 PM SIGNS AND SYMPTOMS: ^fall onto right side PROTOCOL: Frontal and lateral radiographs of the right knee COMPARISON: None FINDINGS: There is total right knee arthroplasty. There is no fracture or hardware complication. No malalignment. No soft tissue swelling. Vascular calcifications are present in the soft tissues. XR/XR knee RT 3V IMPRESSION: No acute bony injury. Uncomplicated total right knee arthroplasty. Impression dictated by: Robert Callaway M.D. 09/30/2025 9:49 PM Dictation Location: [place] [address] Electronically authenticated by: [id number] Y Date: 09/30/2025 21:49
--- NOTE | 2025-09-30 20:09 | XR_ITS ---
The [address] [address] Patient Name: BEATRICE CRUZ MRN: [id number] date: 1945 Sex: M Assigned Patient Location: ED.MAIN Current Patient Location: ED.MAIN Accession/Order Number: [id number] Exam Date: 09/30/2025 20:40 Report Date: 09/30/2025 21:48 At the request of: OLI ARMSTRONG MD Procedure: XR hip RT 2V w/ pelvis XR hip RT 2V w/ pelvis 09/30/2025 9:08 PM SIGNS AND SYMPTOMS: ^injury, fall onto right side PROTOCOL: Frontal radiograph the pelvis with frontal and frog-leg views of the right hip COMPARISON: None FINDINGS: Degenerative changes are noted in the lumbar spine, sacroiliac joints, and bilateral hips. Vascular calcifications are present in the pelvis. There is no evidence of fracture or dislocation. XR/XR hip RT 2V w/ pelvis IMPRESSION: No acute bony injury. Degenerative changes are noted as above. Impression dictated by: Robert Callaway M.D. 09/30/2025 9:48 PM Dictation Location: [place] [address] Electronically authenticated by: [id number] Y Date: 09/30/2025 21:48
--- NOTE | 2025-09-30 20:09 | CT_ITS ---
The [address] [address] Patient Name: BEATRICE CRUZ MRN: [id number] date: 1945 Sex: M Assigned Patient Location: ED.MAIN Current Patient Location: ED.MAIN Accession/Order Number: [id number] Exam Date: 09/30/2025 20:40 Report Date: 09/30/2025 21:47 At the request of: OLI ARMSTRONG MD Procedure: CT lumbar spine wo con CT lumbar spine wo con 09/30/2025 9:08 PM History:Fall TECHNIQUE: Multi detector CT axial slices of the lumbar spine were obtained without IV contrast. Volumetric acquisition sagittal, coronal, and 3-D reconstructions were performed and reviewed on a separate workstation. CT was performed with one or more of the following dose reduction techniques: Automated exposure control, adjustment of the mA and/or kV according to patient size, or use of iterative reconstruction technique. COMPARISON: None FINDINGS: There is preservation of the vertebral body heights. There is moderate disc height loss at L2-3 and L4-5. There is severe disc height loss at L5-S1. There is a circumferential disc bulge at L3-L4 and L4-5. This contributes to spinal canal stenosis at both levels. There is facet hypertrophy with endplate osteophyte formation contributing to neural foraminal stenosis at L4-5 and L5-S1. There is anterior osteophyte formation in the thoracolumbar spine greatest at L4-L5 and L5-S1. No fractures or dislocations are seen. The alignment of the lumbar spine is normal. The paraspinous soft tissues are within normal limits. The visualized lung parenchyma is unremarkable. Atherosclerotic changes are noted in the abdominal aorta and its branches. CT/CT lumbar spine wo con IMPRESSION: No acute bony injury. Significant multilevel degenerative changes noted as above. Impression dictated by: Robert Callaway M.D. 09/30/2025 9:47 PM Dictation Location: [facility] Electronically authenticated by: [id number] Y Date: 09/30/2025 21:47
--- NOTE | 2025-09-30 20:09 | CT_ITS ---
The [place] [id number] Patient Name: BEATRICE CRUZ MRN: [id number] date: 1945 Sex: M Assigned Patient Location: ED.MAIN Current Patient Location: ED.MAIN Accession/Order Number: [id number] Exam Date: 09/30/2025 20:40 Report Date: 09/30/2025 21:36 At the request of: OLI ARMSTRONG MD Procedure: CT head/brain wo con CT head/brain wo con 09/30/2025 9:08 PM SIGNS AND SYMPTOMS: ^fall TECHNIQUE:Multi-detector CT axial slices of the brain were obtained without IV contrast. CT was performed with one or more of the following dose reduction techniques: Automated exposure control, adjustment of the mA and/or kV according to patient size, or use of iterative reconstruction technique. COMPARISON: None. FINDINGS: There is no shift of the midline structures, acute intracranial bleeding, mass effects, or evidence of acute ischemia. There is age-related cortical atrophy. Atherosclerotic changes are noted in the V4 segment of the left vertebral artery and intracranial segments of the internal carotid arteries. There is periventricular white matter hypoattenuation. The ventricular system is normal in size. The brainstem and the cerebellum are unremarkable. The visualized intraorbital contents and the infratemporal soft tissues show no acute abnormality. Mucosal thickening is noted in the maxillary sinuses. The osseous structures in the skull base and the calvarium show no abnormality. CT/CT head/brain wo con IMPRESSION: No acute intracranial pathology. 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 Impression dictated by: Robert Callaway M.D. 09/30/2025 9:36 PM Dictation Location: [place] [address] Electronically authenticated by: [id number] Y Date: 09/30/2025 21:36
--- NOTE | 2025-09-30 20:09 | CT_ITS ---
The [address] [address] Patient Name: BEATRICE CRUZ MRN: [id number] date: 1945 Sex: M Assigned Patient Location: ED.MAIN Current Patient Location: ED.MAIN Accession/Order Number: [id number] Exam Date: 09/30/2025 20:40 Report Date: 09/30/2025 21:40 At the request of: OLI ARMSTRONG MD Procedure: CT cervical spine wo con CT cervical spine wo con 09/30/2025 9:08 PM SIGN AND SYMPTOMS: ^fall TECHNIQUE: Multi detector CT axial slices of the cervical spine were obtained without IV contrast. Volumetric acquisition sagittal, coronal, and 3-D reconstructions were performed and reviewed. CT was performed with one or more of the following dose reduction techniques: Automated exposure control, adjustment of the mA and/or kV according to patient size, or use of iterative reconstruction technique. COMPARISON: 03/12/2024 FINDINGS: There is preservation of the vertebral body heights. There is moderate to severe disc height loss at C6-C7 with moderate disc height loss at C5-C6 and C7-T1. There is bridging anterior osteophyte formation throughout the cervical spine consistent with diffuse idiopathic skeletal hyperostosis. There is facet hypertrophy throughout. There is ossification along the nuchal ligament. No fractures or dislocations are seen. The alignment of the cervical spine is normal. The craniocervical junction is within normal limits. Degenerative changes are noted in the atlantoaxial joint. The prevertebral soft tissues are within normal limits. The paraspinous soft tissues are within normal limits. The lung apices are unremarkable. Calcified plaque is noted in the carotid bifurcations. CT/CT cervical spine wo con IMPRESSION: No fracture or subluxation. Significant multilevel degenerative changes noted with findings consistent with diffuse idiopathic skeletal hyperostosis. Impression dictated by: Robert Callaway M.D. 09/30/2025 9:40 PM Dictation Location: [place] [address] Electronically authenticated by: [id number] Y Date: 09/30/2025 21:40
--- NOTE | 2025-09-30 20:11 | ED.FALL1 ---
HPI HPI - Fall General Chief Complaint: Fall Stated Complaint: FALL Time Seen by Provider: 09/30/25 20:03 Source: patient Source comment: And EMS Mode of arrival: ambulance Limitations: no limitations History of Present Illness HPI Narrative: states he tripped in the bathroom and struck his head. Denies LOC. States his helped him up. He was not able to walk due to knee pain. Right knee pain. Denies injury elsewhere. No complaint of neck pain, chest wall pain, abdominal pain. Able to move all extremities and only complains of the right knee pain. No nausea Related Data Home Medications ?Medication ?Instructions ?Recorded ?Confirmed aspirin 325 mg tablet,delayed 81 mg PO QDAY 03/13/23 09/30/25 release atorvastatin 20 mg tablet 20 mg PO QDAY 03/13/23 09/30/25 lisinopril 10 mg tablet 5 mg PO QDAY 03/13/23 09/30/25 metoprolol succinate 25 mg PO QDAY 03/13/23 09/30/25 omega 6-tjt-tey-fish oil 1,000 mg 1 cap PO QDAY 03/13/23 09/30/25 (120 mg-180 mg) capsule (Fish Oil) tramadol 50 mg tablet 50 mg PO BID PRN pain 11/20/23 09/30/25 acetaminophen 500 mg tablet 500 mg PO .8 hours PRN fever or 03/12/24 09/30/25 (Tylenol Extra Strength) pain carbidopa 25 mg-levodopa 100 mg 2 tab PO QID 03/12/24 09/30/25 tablet (Sinemet) dapagliflozin propaned 10 1 tab PO DAILY 06/08/25 09/30/25 mg-metformin ER 500 mg tablet, ext rel 24hr (Xigduo XR) mirabegron 25 mg tablet,extended 25 mg PO DAILY 06/08/25 09/30/25 release 24 hr tamsulosin 0.4 mg capsule 0.4 mg PO DAILY 06/08/25 09/30/25 terbinafine HCl 250 mg tablet 250 mg PO DAILY 06/08/25 09/30/25 entacapone 200 mg tablet 200 mg PO BID 09/30/25 09/30/25 escitalopram oxalate 5 mg tablet 5 mg PO DAILY 09/30/25 09/30/25 nystatin 100,000 unit/gram topical 1 applic topical BID 09/30/25 09/30/25 powder (Klayesta) Allergies Allergy/AdvReac Type Severity Reaction Status Date / Time No Known Drug Allergies Allergy Verified 09/30/25 20:04 Opioid HPI Opioid Management Most Recent Pain and Opioid Data: Last Pain Scale 7 Today, 20:20 Review of Systems ROS Status of ROS 10 or more systems reviewed and unremarkable except as noted in history and below [facility] Medical History (Updated 09/30/25 @ 23:10 by Blaine Gilmore MD) Cellulitis of left lower leg ?L03.116 - Cellulitis of left lower limb (ICD-10) Parkinson disease ?G20.A1 - Parkinson's disease without dyskinesia, without mention of fluctuations (ICD-10) CKD (chronic kidney disease) ?N18.9 - Chronic kidney disease, unspecified (ICD-10) Diabetes type 2, controlled ?E11.9 - Type 2 diabetes mellitus without complications (ICD-10) Hypertension ?I10 - Essential (primary) hypertension (ICD-10) Pacemaker ?Z95.0 - Presence of cardiac pacemaker (ICD-10) Low back pain ?M54.50 - Low back pain, unspecified (ICD-10) Diabetes ?E11.9 - Type 2 diabetes mellitus without complications (ICD-10) Acute prostatitis ?N41.0 - Acute prostatitis (ICD-10) High cholesterol ?E78.00 - Pure hypercholesterolemia, unspecified (ICD-10) Hypertension ?I10 - Essential (primary) hypertension (ICD-10) Angina at rest ?I20.8 - Other forms of angina pectoris (ICD-10) Heart attack ?I21.9 - Acute myocardial infarction, unspecified (ICD-10) Surgical History (Updated 09/30/25 @ 22:27 by Mercedes Stern) H/O heart artery stent ?Z95.5 - Presence of coronary angioplasty implant and graft (ICD-10) History of arthroplasty of left knee ?Z96.652 - Presence of left artificial knee joint (ICD-10) History of arthroplasty of right knee ?Z96.651 - Presence of right artificial knee joint (ICD-10) Social History Little interest or pleasure in doing things: not at all Feeling down, depressed, or hopeless: not at all Exam Constitutional Vital Signs, click to edit/add: Last Vital Signs Temp 98.2 F 09/30/25 19:59 Pulse 65 09/30/25 22:43 Resp 18 09/30/25 22:43 BP 150/63 H 09/30/25 22:43 Pulse Ox 99 09/30/25 22:43 O2 Del Method Room Air 09/30/25 22:43 Common normals: no apparent distress, oriented x3, healthy appearing, alert and well nourished [facility] Common normals: normocephalic Head images:  1. abrasion Eye Common normals: PERRL and EOMs intact bilaterally Neck & C-Spine Common normals: full ROM Chest Common normals: inspection of chest normal, palpation of chest normal and inspection of breasts normal Respiratory Common normals: normal respiratory effort, no retractions, no use of accessory muscles and clear to auscultation bilaterally Cardio Common normals: regular rate, regular rhythm, S1 normal heart sound and S2 normal heart sound GI Common normals: Normal to inspection, nondistended, normoactive bowel sounds present, soft to palpation and non-tender Back & Pelvis Common normals: no CVA tenderness Back image (male):  1. mild tenderness Extremity Common normals: normal to inspection Other: mild tenderness right knee. no gross deformity Neuro Common normals: oriented x3, CN's II-XII intact bilaterally, moves all extremities and no focal motor deficits Psych Appearance: grossly normal Course Vital Signs Vital signs: Vital Signs Temperature 98.2 F 09/30/25 19:59 Pulse Rate 75 09/30/25 19:59 Respiratory Rate 16 09/30/25 19:59 Blood Pressure 128/66 09/30/25 19:59 Pulse Oximetry 98 09/30/25 19:59 Oxygen Delivery Method Room Air 09/30/25 19:59 Temperature 98.2 F 09/30/25 19:59 Pulse Rate 65 09/30/25 22:43 Respiratory Rate 18 09/30/25 22:43 Blood Pressure 150/63 H 09/30/25 22:43 Pulse Oximetry 99 09/30/25 22:43 Oxygen Delivery Method Room Air 09/30/25 22:43 MDM - Fall MDM Narrative Medical decision making narrative: patient fell in the bathroom striking his head on the tub. helped him up and he was not able to walk because of pain. Transferred to the ED via Squad. Exam with finding of mild abrasion occipital scalp without swelling. Mild pain right knee with ROM. CTs brain, C-spine neg. xray right hip and right knee without acute findings. He did have some tenderness on exam of his lower back. CT L-spine without acute findings. Patient able to ambulate in the department with his walker. Basic labs including CBC, BMP and UA WNL. patient discharged home in the care of his family Lab Data Labs: Lab Results 09/30/25 09/30/25 Range/Units 20:25 22:15 WBC 11.2 H (4.0-11.0) 10^3/uL RBC 4.07 L (4.70-6.10) 10^6/uL Hgb 12.3 L (14.0-18.0) g/dL Hct 37.2 L (42.0-54.0) % MCV 91.4 (80.0-94.0) fL MCH 30.2 (25.9-34.0) pg MCHC 33.1 (29.9-35.2) g/dL RDW 15.1 H (11.0-15.0) % Plt Count 335 (150-450) 10^3/uL MPV 10.0 (9.5-13.5) fL Neut % (Auto) 64.4 (43.0-75.0) % Lymph % (Auto) 25.2 (20.5-60.0) % Antelope % (Auto) 9.0 (1.7-12.0) % Eos % (Auto) 0.6 L (0.9-7.0) % Baso % (Auto) 0.4 (0.2-2.0) % Neut # (Auto) 7.2 H (1.4-6.5) 10^3/uL Lymph # (Auto) 2.8 (1.2-3.8) 10^3/uL Antelope # (Auto) 1.0 H (0.3-0.8) 10^3/uL Eos # (Auto) 0.1 (0.0-0.7) 10^3/uL Baso # (Auto) 0.1 (0.0-0.1) 10^3/uL Abs Immat Gran (auto) 0.04 H (0.00-0.03) 10^3/uL Imm/Tot Granulo (auto) 0.4 (0.0-0.5) % Sodium 133 L (136-145) mmol/L Potassium 3.8 (3.5-5.1) mmol/L Chloride 103 (98-107) mmol/L Carbon Dioxide 21.1 (21.0-32.0) mmol/L Anion Gap 12.7 BUN 38.0 H (7.0-18.0) mg/dL Creatinine 1.69 H (0.70-1.30) mg/dL Est GFR ( Amer) 48 L (>=60 mL/min/1.73m^2) Est GFR (Non-Af Amer) 39 L (>=60 mL/min/1.73m^2) BUN/Creatinine Ratio 22.5 Glucose 126 H (74-106) mg/dL Calcium 9.2 (8.5-10.1) mg/dL Urine Color Yellow (YELLOW) Urine Clarity Clear (CLEAR) Urine pH 6.0 (5.0-9.0) Ur Specific [place] <=1.005 A (1.005-1.025) Urine Protein Negative (NEG/TRACE) mg/dL Urine Glucose (UA) 500 A (NEGATIVE) mg/dL Urine Ketones 15 A (NEGATIVE) mg/dL Urine Occult Blood Negative (NEGATIVE) Urine Nitrite Negative (NEGATIVE) Urine Bilirubin Negative (NEGATIVE) Urine Urobilinogen 0.2 (0.2-1.0) EU/dL Ur Leukocyte Esterase Negative (NEGATIVE) Urine RBC None seen (0-2) #/HPF Urine WBC 0-2 A (NONE SEEN) #/HPF Ur Squamous Epith Cells Rare (NONE/RARE) #/LPF Urine Crystals None seen (None Seen) #/HPF Urine Bacteria None seen (NONE SEEN) #/HPF Urine Casts None seen (NONE SEEN) #/LPF Urine Mucus None seen (NONE SEEN) Ur Culture Indicated? No Discharge Plan Discharge Chief Complaint: Fall Clinical Impression: Closed head injury, Right knee sprain Patient Disposition: Home, Self-Care Prescriptions / Home Meds: No Action aspirin 325 mg tablet,delayed release (DR/EC) 81 mg PO QDAY omega 8-ogs-xro-fish oil [Fish Oil] 1,000 mg (120 mg-180 mg) capsule 1 cap PO QDAY atorvastatin 20 mg tablet 20 mg PO QDAY lisinopril 10 mg tablet 5 mg PO QDAY metoprolol succinate 25 mg PO QDAY acetaminophen [Tylenol Extra Strength] 500 mg tablet 500 mg PO .8 hours PRN (Reason: fever or pain) carbidopa-levodopa [Sinemet] 25-100 mg tablet 2 tab PO QID terbinafine HCl 250 mg tablet 250 mg PO DAILY Xigduo XR 10-500 mg tablet, IR - ER, biphasic 24hr 1 tab PO DAILY tamsulosin 0.4 mg capsule 0.4 mg PO DAILY mirabegron 25 mg tablet extended release 24 hr 25 mg PO DAILY entacapone 200 mg tablet 200 mg PO BID Rx Instructions: can take up to TID escitalopram oxalate 5 mg tablet 5 mg PO DAILY nystatin [Klayesta] 100,000 unit/gram powder 1 applic TOPICAL BID tramadol 50 mg tablet 50 mg PO BID PRN (Reason: pain) Print Language: Welsh Instructions: Knee Sprain (ED), Head Injury (ED) Additional Instructions: follow up with your family doctor next week Referrals: Valentino ANDRES [Primary Care Provider, Family Practice] - 1 week
--- OUTSIDE RECORDS SUMMARY | 2025-09-30 20:37 | XMS_ITS | Encounter Summary ---
Author Organization [facility] Address [address] [facility] [place] [address] Care Team Providers Care Gluer And Wedger Name Role Phone Gerald Field DO Primary Care Provider Gerald Field DO Unavailable [phone] Gregory Ybarra MD Unavailable [phone] Michaelfrancois Sunny Yusuf DO Unavailable Eusebio Guerin MD Unavailable [phone] Hillary Wilhelm Unavailable Encounter Details DateTypeDepartmentCare Team (Latest Contact Info)Addjfbudoxv90/09/2025Telephone [facility] [place] [facility] [address] [facility] [address] [place] [address] Maryan Sweeney MA Social History Tobacco UseTypesPacks/DayYears UsedDateSmoking Tobacco: FormerCigarettes1.522 Smokeless Tobacco: NeverAlcohol UseStandard Drinks/WeekCommentsNot Currently0 (1 standard drink = 0.6 oz pure alcohol)caffeine intake : [id number] Health Literacy AnswerDate RecordedHow often do you need to have someone help you when you read instructions, pamphlets, or other written material from your doctor or pharmacy? Gsqniu4103/25/2024Social Connection and Isolation PanelAnswerDate Recorded Frequency of Communication with Friends and FamilyNot on file06/13/2024Frequency of Social Gatherings with Friends and FamilyNot on file03/25/2024How often do you attend sikhism or christian services?More than 4 times per year03/25/2024o you belong to any clubs or organizations such as sikhism groups, unions, fraternal or athletic groups, or school groups?No03/25/2024How often do you attend meetings of the clubs or organizations you belong to?Never03/25/2024re you , , , , never , or living with a partner?Gbcnrrc5503/25/2024UDIT-CAnswerDate RecordedQ1: How often do you have a [...] hard at all03/25/2024HQ-2AnswerDate RecordedPatient Health Questionnaire-2 Score0 09/20/2025[facility] [place] of Occup[facility] Health - Occupational Stress QuestionnaireAnswerDate [...] were you homeless or living in a usp (including now)?No 03/25/2024Sex and Gender InformationValueDate RecordedSex Assigned at BirthNot on fileLegal PipXrpd6412/25/2022 10:58 PM EDTGender IdentityNot on fileSexual OrientationNot on filedocumented as of this encounter Miscellaneous Notes * Telephone Encounter - Frankie Cordon LPN - 09/20/2025 12:02 PM EST We do have this documented in chart. Closing. * Telephone Encounter - Maryan Sweeney MA - 09/20/2025 11:53 AM EST Pt's spouse wanted to let you know that pt had both the COVID and Flu shot this year She stated that she keeps getting reminders to have this completed These where done at [facility] in [place] documented in this encounter Plan of Treatment DateTypeDepartmentCare Team (Latest Contact Info)Vcqpmpgwbyk20/06/2026 2:45 PM ESTOffice Visit [facility] [place] [facility] [address] [place] [phone] Tanja Connell, DPM [address] [place] [address] 11/01/2025 10:00 AM ESTProcedure Visit [facility] [place] [facility] [address] [place] [phone] Tanja Connell, DPM [address] [place] [address] 02/01/2026 9:05 AM EDTOffice Visit [facility] [place] [facility] [address] [place] [address] Mary Davies MD [address] [place] [address] 02/13/2026 10:20 AM EDTOffice Visit [facility] [address] [place] [phone] Gerald Field DO [address] [place] [address] documented as of this encounter Visit Diagnoses Not on filedocumented in this encounter Additional Health Concerns AssessmentNoted TimePHQ-9 Depression Total Score: 6003/01/2025 10:00 AM EDT documented as of this encounter Care Teams Team MemberRelationshipSpecialtyStart DateEnd Date Gerald Field DO [address] [place] [address] PCP - GeneralFamily Medicine02/18/23 Gerald Field DO [address] [place] [address] PCP - ACO Reach12/12/23 Gregory Ybarra MD [address] [place] [address] Referring PhysicianSle Pahxbxcw73/29/24 Sunny Vasquez DO [address] [place] [address] Ezdicqzafixctt41/29/24 Eusebio Guerin MD [address] [facility] [address] [place], [place] [id number] Referring XamkviaeaOmgagybax87/25/24 Hillary Wilhelm PA [address] [place] [address] Physician AssistantNeurology12/29/24documented as of this encounter
--- OUTSIDE RECORDS SUMMARY | 2025-09-30 20:37 | XMS_ITS | Encounter Summary ---
Author Organization [facility] Address [address] [place] [place] [address] Care Team Providers Care Hook Loader Name Role Phone Gerald Field DO Primary Care Provider [phone] Gerald Field DO Unavailable [phone] Gregory Ybarra MD Unavailable [phone] SylvesterlupeSunny DO Unavailable Eusebio Guerin MD Unavailable [phone] Hillary Wilhelm Unavailable Encounter Details DateTypeDepartmentCare Team (Latest Contact Info)Blzleafnxtn44/18/2025Travel Social History Tobacco UseTypesPacks/DayYears UsedDateSmoking Tobacco: FormerCigarettes1.522 Smokeless Tobacco: NeverAlcohol UseStandard Drinks/WeekCommentsNot Currently0 (1 standard drink = 0.6 oz pure alcohol)caffeine intake : [id number] Health Literacy AnswerDate RecordedHow often do you need to have someone help you when you read instructions, pamphlets, or other written material from your doctor or pharmacy? Rjzokl5203/25/2024Social Connection and Isolation PanelAnswerDate Recorded Frequency of Communication with Friends and FamilyNot on file03/25/2024Frequency of Social Gatherings with Friends and FamilyNot on file03/25/2024How often do you attend jainism or episcopalian services?More than 4 times per year03/25/2024o you belong to any clubs or organizations such as jainism groups, unions, fraternal or athletic groups, or school groups?No03/25/2024How often do you attend meetings of the clubs or organizations you belong to?Never03/25/2024re you , , , , never , or living with a partner?Fftbrji6903/25/2024UDIT-CAnswerDate RecordedQ1: How often do you have a [...] hard at all03/25/2024HQ-2AnswerDate RecordedPatient Health Questionnaire-2 Score0 09/20/2025[facility] [place] of Occupational Health - Occupational Stress QuestionnaireAnswerDate [...] steady place to sleep or slept in [place] (including now)?No03/17/2024Housing Stability Vital SignAnswerDate RecordedIn the last 12 months, was there a time when you were not able to pay the mortgage or rent on time?No03/25/2024In the past 12 months, how many times have you moved where you were living?t any time in the past 12 months, were you homeless or living in a half-way (including now)?No 03/25/2024Sex and Gender InformationValueDate RecordedSex Assigned at BirthNot on fileLegal DdpSifg6412/25/2022 10:58 PM EDTGender IdentityNot on fileSexual OrientationNot on filedocumented as of this encounter Plan of Treatment DateTypeDepartmentCare Team (Latest Contact Info)Uvtarpqftgd18/06/2026 2:45 PM ESTOffice Visit [facility] [place] [facility] [address] [place] [phone] Tanja Connell DPM [address] [place] [address] 11/01/2025 10:00 AM ESTProcedure Visit [facility] [place] [facility] [address] [place] [address] Tanja Connell DPM [address] [place] [address] 02/01/2026 9:05 AM EDTOffice Visit [facility] [place] [facility] [address] [place] [address] Mary Davies MD [address] [place] [address] 02/13/2026 10:20 AM EDTOffice Visit [facility] [address] [place] [phone] Gerald Field DO [address] [place] [address] documented as of this encounter Visit Diagnoses Not on filedocumented in this encounter Additional Health Concerns AssessmentNoted TimePQ-9 Depression Total Score: 6003/01/2025 10:00 AM EDT documented as of this encounter Care Teams Team MemberRelationshipSpecialtyStart DateEnd Date Gerald Field DO [address] [place] [address] PCP - GeneralFamily Medicine02/18/23 Gerald Field DO [address] [place] [address] PCP - ACO Reach12/12/23 Gregory Ybarra MD [address] [facility] [address] [place] [address] Referring [facility] Vlujnvzl19/29/24 Sunny Vasquez DO [address] [place] [address] Fygcvbscjxrulf07/29/24 Eusebio Guerin MD [address] [facility] [place] [address] Referring TqyhgslsdKogwpabax72/25/24 Hillary Wilhelm PA [address] [place] [id number] Physician AssistantNeurology12/29/24documented as of this encounter
--- OUTSIDE RECORDS SUMMARY | 2025-09-30 20:37 | XMS_ITS | Patient Health Record ---
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 [place] [address] [id number] Jakob Mariee - [facility] Supp[facility] (Secondary)[address] [place] [id number] Jakob Vieira - patient is the insured
--- OUTSIDE RECORDS SUMMARY | 2025-09-30 20:37 | XMS_ITS | Encounter Summary ---
Author Organization [facility] Address [address] [place] [address] Care Team Providers Care Underwriting Intern Name Role Phone Gerald Field DO Primary Care Provider Gerald Field DO Unavailable Gregory Ybarra MD Unavailable [phone] Sunny Vasquez DO Unavailable [phone] Eusebio Guerin MD Unavailable Hillary Wilhelm Unavailable Reason for Visit * ReasonCommentsMed Refill Encounter Details DateTypeDepartmentCare Team (Latest Contact Info)Rcdpllofawf73/10/2025Refill [facility] [address] [place] [phone] Gerald Field DO [address] [facility] [address] [place], [place] [phone] Type 2 diabetes mellitus without complication, with long-term current use of insulin (HCC) Social History Tobacco UseTypesPacks/DayYears UsedDateSmoking Tobacco: FormerCigarettes1.522 Smokeless Tobacco: NeverAlcohol UseStandard Drinks/WeekCommentsNot Currently0 (1 standard drink = 0.6 oz pure alcohol)caffeine intake : vmmyC1111 Health Literacy AnswerDate RecordedHow often do you need to have someone help you when you read instructions, pamphlets, or other written material from your doctor or pharmacy? Galeax1103/25/2024Social Connection and Isolation PanelAnswerDate Recorded Frequency of Communication with Friends and FamilyNot on file03/25/2024Frequency of Social Gatherings with Friends and FamilyNot on file03/25/2024How often do you attend voodoo or pentecostalism services?More than 4 times per year03/25/2024o you belong to any clubs or organizations such as voodoo groups, unions, fraternal or athletic groups, or school groups?No03/25/2024How often do you attend meetings of the clubs or organizations you belong to?Never03/25/2024re you , , , , never , or living with a partner?Zdonlem7403/25/2024UDIT-CAnswerDate RecordedQ1: How often do you have a [...] hard at all03/25/2024HQ-2AnswerDate RecordedPatient Health Questionnaire-2 Score0 09/20/2025[facility] [place] of Occupational Health - Occupational Stress QuestionnaireAnswerDate [...] steady place to sleep or slept in [place] (including now)?No03/17/2024Housing Stability Vital SignAnswerDate RecordedIn the last 12 months, was there a time when you were not able to pay the mortgage or rent on time?No03/25/2024In the past 12 months, how many times have you moved where you were living?t any time in the past 12 months, were you homeless or living in a alf (including now)?No 03/25/2024Sex and Gender InformationValueDate RecordedSex Assigned at BirthNot on fileLegal YgmHuoh3212/25/2022 10:58 PM EDTGender IdentityNot on fileSexual OrientationNot on filedocumented as of this encounter Plan of Treatment DateTypeDepartmentCare Team (Latest Contact Info)Uyognlluomn81/06/2026 2:45 PM ESTOffice Visit [facility] [address] [place] [phone] Tanja Connell DPM [address] [place] [address] 11/01/2025 10:00 AM ESTProcedure Visit [facility] [address] [place] [phone] Tanja Connell DPM [address] [place] [address] 02/01/2026 9:05 AM EDTOffice Visit [facility] [address] [place] [address] Mary Davies MD [address] [place] [address] 02/13/2026 10:20 AM EDTOffice Visit [facility] [address] [place] [address] Gerald Field DO [address] [place] [address] documented as of this encounter Visit Diagnoses Diagnosis Type 2 diabetes mellitus without complication, with long-term current use of insulin (HCC) documented in this encounter Additional Health Concerns AssessmentNoted TimePHQ-9 Depression Total Score: 6003/01/2025 10:00 AM EDT documented as of this encounter Care Teams Team MemberRelationshipSpecialtyStart DateEnd Date Gerald Field DO [address] [place] [address] PCP - GeneralFaflly Medicine02/18/23 Gerald Field DO [address] [place] [address] PCP - ACO [facility]12/12/23 Gregory Ybarra MD [address] [place] [address] Referring [facility] Fkzxwbpd29/29/24 Sunny Vasquez, DO [address] [place] [address] Vmmhmlpvucmfwa29/29/24 Eusebio Guerin MD [address] [place] [address] [place] [address] Referring VxofzoagdKvtljwlgi98/25/24 Hillary Wilhelm PA [address] [place] [address] Physician AssistantNeurology12/29/24documented as of this encounter
--- OUTSIDE RECORDS SUMMARY | 2025-09-30 20:37 | XMS_ITS | Encounter Summary ---
Author Organization [facility] Address [address] [facility] [place] [address] Care Team Providers Care Parcel Carrier Name Role Phone Gerald Field DO Primary Care Provider [phone] Gerald Field DO Unavailable [phone] Gregory Ybarra MD Unavailable [phone] SylvesterlupeSunny DO Unavailable Eusebio Guerin MD Unavailable [phone] Hillary Wilhelm Unavailable Encounter Details DateTypeDepartmentCare Team (Latest Contact Info)Vnhwbfhvzhm78/09/2025Travel Social History Tobacco UseTypesPacks/DayYears UsedDateSmoking Tobacco: FormerCigarettes1.522 Smokeless Tobacco: NeverAlcohol UseStandard Drinks/WeekCommentsNot Currently0 (1 standard drink = 0.6 oz pure alcohol)caffeine intake : ljxvM3221 Health Literacy AnswerDate RecordedHow often do you need to have someone help you when you read instructions, pamphlets, or other written material from your doctor or pharmacy? Nsmsmj7703/25/2024Social Connection and Isolation PanelAnswerDate Recorded Frequency of Communication with Friends and FamilyNot on file03/25/2024Frequency of Social Gatherings with Friends and FamilyNot on file03/25/2024How often do you attend shinto or jain services?More than 4 times per year03/25/2024o you belong to any clubs or organizations such as shinto groups, unions, fraternal or athletic groups, or school groups?No03/25/2024How often do you attend meetings of the clubs or organizations you belong to?Never03/25/2024re you , , , , never , or living with a partner?Bbpgldk0203/25/2024UDIT-CAnswerDate RecordedQ1: How often do you have a [...] hard at all03/25/2024HQ-2AnswerDate RecordedPatient Health Questionnaire-2 Score0 09/20/2025[facility] [place] of Occupational Health - Occupational Stress QuestionnaireAnswerDate [...] steady place to sleep or slept in [place] (including now)?No03/17/2024Housing Stability Vital SignAnswerDate RecordedIn the last 12 months, was there a time when you were not able to pay the mortgage or rent on time?No03/25/2024In the past 12 months, how many times have you moved where you were living?t any time in the past 12 months, were you homeless or living in a intermediate (including now)?No 03/25/2024Sex and Gender InformationValueDate RecordedSex Assigned at BirthNot on fileLegal OfpAjju3512/25/2022 10:58 PM EDTGender IdentityNot on fileSexual OrientationNot on filedocumented as of this encounter Plan of Treatment DateTypeDepartmentCare Team (Latest Contact Info)Lwqubahrzru67/06/2026 2:45 PM ESTOffice Visit [facility] [place] [facility] [address] [place] [phone] Tanja Connell DPM [address] [place] [address] 11/01/2025 10:00 AM ESTProcedure Visit [facility] [place] [address] [place] [address] Tanja Connell DPM [address] [place] [address] 02/01/2026 9:05 AM EDTOffice Visit [facility] [address] [place] [address] Mary Davies MD [address] [place] [address] 02/13/2026 10:20 AM EDTOffice Visit [facility] [address] [place] [phone] Gerald Field DO [address] [place] [address] documented as of this encounter Visit Diagnoses Not on filedocumented in this encounter Additional Health Concerns AssessmentNoted TimePQ-9 Depression Total Score: 6003/01/2025 10:00 AM EDT documented as of this encounter Care Teams Team MemberRelationshipSpecialtyStart DateEnd Date Gerald Field DO [address] [place] [address] PCP - GeneralFamily Medicine02/18/23 Gerald Field DO [address] [place] [address] PCP - ACO [facility]12/12/23 Gregory Ybarra MD [address] [facility] [address] [place] [address] Referring [facility] Sodpvefv06/29/24 Sunny Vasquez DO [address] [place] [address] Wctbzdlbwfisfz63/29/24 Eusebio Guerin MD [address] [facility] [place] [address] Referring NdgkovaxcKcqhejasc44/25/24 Hillary Wilehlm PA [address] [place] [id number] Physician AssistantNeurology12/29/24documented as of this encounter
--- OUTSIDE RECORDS SUMMARY | 2025-09-30 20:37 | XMS_ITS | Clinical Summary ---
Author Organization [facility] Address [facility] [place] [address] Care Team Providers Care Operations Support Analyst Name Role Phone Valentino Field DO Unavailable Unavailable Valentino Field DO Primary Care Provider Jacques labmilli Allergies No known active allergies Medications MedicationSigDispense [...] DateHTN (hypertension)03/09/2015Diabetes mellitus type 1, uncontrolled, without /28/2015Stented coronary artery 03/09/2015ngina upijng9703/09/2015 Social History Tobacco UseTypesPacks/DayYears UsedDateSmoking Tobacco: Never AssessedSex and Gender InformationValueDate RecordedSex Assigned at BirthNot on fileLegal Sex Male09/13/2012 10:21 AM ESTGender IdentityNot on fileSexual OrientationNot on file Last Filed Vital Signs Vital SignReadingTime TakenCommentsBlood Otqbvbay283/7805 4:37 PM EDT Rfamr2419 4:37 PM WSCZwzljrfwlan39.8 ??C (98.2 ??F)12/29/2008 8:00 AM EDTRespiratory Inar211812/29/2008 8:00 AM EDTOxygen Jsjvtdigiu39%12/29/2008 8:00 AM EDTInhaled Oxygen Concentration--Qiwsal471.3 kg (230 lb)03/09/2015 4:37 PM UFMXupsfw755.7 cm (5' 8 )12/28/2008 3:00 PM EDTBody Mass Index34.9712/28/2008 3:00 PM EDT Plan of Treatment Health MaintenanceDue DateLast DoneCommentsAnxiety Sazkjrdis58/08/1963Depression Tiiejuqpy56/08/1963DTaP,Tdap,Td Vaccine (1 - Tdap)1964Pneumococcal Vaccine: 50+ (1 of 1 - PCV)1995Shingrix Vaccine (1 of 2)1995Diabetes Lgyhrgblj83RSV Vaccine (1 - 1-dose 75+ series)2020 Advance Directive Nxpreiedsp84/01/2025Covid-19 Vaccine (1 - 2024- season) 2025Influenza Vaccine (#1)8750ItufaisknmnEmejotjqfjmy35/16/2018, 08/19/2014Colorectal Cancer ScreeningDiscontinuedCT ColonographyDiscontinued Cologuard (FIT-DNA)DiscontinuedFecal Occult BloodDiscontinuedSigmoidoscopy Discontinued Procedures Procedure NamePriorityDate/TimeAssociated DiagnosisCommentsBASIC METABOLIC PANEL STAT12/28/2008 8:30 AM EDT from Last 3 Months or Most Recently Relevant to Health Maintenance Results * (ABNORMAL) BASIC METABOLIC PNL (12/28/2008 8:30 AM EDT)ComponentValueRef Range Test MethodAnalysis TimePerformed AtPathologist SjoggjmrhAMG8959 - 25 mg/dL [facility] PEAAPFQUDUZoqlpo504502 - 146 mmol/LFAIRVIEW LABORATORYPotassium4.33.5 - 5.0 mmol/LFA[facility] FHTTOWIMZARqcsjsdf81334 - 110 mmol/LFAIRVIEW LABORATORY XG46614 - 32 mmol/LFA[facility]VIEW TREANGEPTUChwpehl531(H)65 - 100 mg/dLFAIRVIEW LABORATORYCreatinine0.800.70 - 1.40 mg/dLFAIRVIEW LABORATORYCalcium9.58.5 - 10.5 mg/dLFAIRVIEW LABORATORYGlom Filtration Rate (SHERWIN)>60>60 ml/min/1.73sqm [facility] LABORATORYGlom Filtration Rate (AA)>60>60 ml/min/1.73sqmFAIRVIEW LABORATORYSpecimen (Source)Anatomical Location / LateralityCollection Method / VolumeCollection TimeReceived TimeBlood specimen (specimen)BLOOD SPECIMEN / Mxbxgqu1712/28/2008 8:30 AM EDT12/28/2008 8:52 AM EDT Narrative Authorizing ProviderResult TypeResult StatusAli N (Hist) ShaikhLABORATORYFinal ResultPerforming OrganizationAddressCity/State/ZIP CodePhone Number [facility] [address] [place] [address] from Last 3 Months or Most Recently Relevant to Health Maintenance Insurance * Guarantor: Ramon Mariee TypeRelation to PatientDate of BirthPhone Billing AddressPersonal/NwyflaJzhq1945 [address] [address] Care Teams Team MemberRelationshipSpecialtyStart DateEnd Date Valentino Field DO PCP - GeneralFawyly Mihlqgpr58/10/20 Valentino Field DO [facility] Hkxjupii01/10/20
--- OUTSIDE RECORDS SUMMARY | 2025-09-30 20:37 | XMS_ITS | Data Portability ---
Author Organization [place] - [facility], [facility] OP Address [address] [place] [address] Care Team Providers Care Medical Technologist Microbiology Name Role Phone Valentino ANDRES JR Primary Care Provider [phone] Assessment No assessment recorded. Plan of Treatment Reminders Order DateSubmit DateProviderLast Modified ByOrganization DetailsLast Modified TimeDetailsAppointmentsFOLLOW UP 10:20BERE ESPINO-CNot availableNot availableNot availableLabNone recorded.[facility] referral - Parkinsonism, [facility] home health, PT for balance/gait, ST if available for dysp hagia/0728bvqtsou08Lji oiunuggoe17/02/2025 07:44:50ProceduresNone recorded.SurgeriesNone recorded.ImagingNone recorded.Medication Ordersentacapone 200 mg trbtdc45THENA[id number], [address] [place], [address], 11 10:35:33Comtan 200 mg tablet lowe109[id number], [address] [place], [address], 11 11:42:27 Patient TargetsNo targets recorded. Patient Instructions Encounter Date Encounter Id Patient Instructions Last Modified By Organization Details Last Modified Time 06/01/2025 [id number] 1. Old records reviewed. 2. Continue Sinemet 25-100mg 2 tabs PO 4 times daily for PD. 3. He is willing to participate with home health PT. He has previously used [facility]. 4. I counseled the patient on fall precautions at length. I discussed the high risk of trauma and debility associated with falls. The patient states understanding. The patient is at a high risk for morbidity and mortality due to frequent falls. [id number] Not available 06/01/2025 12:54:30 08/02/2025 785 1. Add Comtan 20 0mg PO BID and then adjust to TID if needed in between doses of Sinemet. 2. I counseled the patient and family on the side effects of medications. 3. Continue Sinemet 25-100mg 2 tabs PO 4 times daily for PD. 4. Consider Sinemet CR pending course. 5. Work with PT as ordered for fall prevention. 6. Plan also discussed with his daughters who were present. 7. I counseled the patient on fall precautions at length. I discussed the high risk of trauma and debility associated with falls. The patient states understanding. The patient is at a high risk for morbidity and mortality due to frequent falls. Follow up 4-6 weeks munno976Vud uxpegfxhz22/21/2025 10:06:33111861. Continue Sinemet 25- 100mg 2 tabs PO 4 times daily for PD. 2. Continue Comtan 200mg PO BID to TIDif needed in between doses of Sinemet. 3. Continue with PT and ST as ordered. 4. I counseled the patient on fall precautions at length. I discussed the high risk of trauma and debility associated with falls. The patient states understanding. The patient is at a high risk for morbidity and mortalitydue to frequent falls. Follow up 4 gklujbqkqzh198Zni gjeqrddqp99/25/2025 11:09:27 Reason for Referral Home Health Referral for Par kinsonism Parkinsonism, [facility] home health, PT for balance/gait, ST if available for dysphagia Referring Physician: Chikis Alves, Neurology, Encounter Date: 06/01/2025 Procedures Surgical History Date Name Laterality Status Provider Name and Address Organization Details Recorded Time implantation of cardiac pacemakercomkeSynereca Pharmaceuticalsdwaine MarurfoVirgin[facility] [place] 05/30/2025 13:30:28placement of stent in coronary arterycomUniversity [facility] Xiao [facility], [facility]05/30/2025 13:30:37operation on jointcompletedTaylor [facility], [facility]05/30/2025 13:30:59surgical procedure on eye region completedTaylor [facility]iqueSouthern [facility], [facility]05/30/2025 13:31:10arthroscopy of kneecompletcharlymelecio [facility], [facility]05/30/2025 13:31:22 Imaging Results None recorded. Procedure Notes None recorded. Medical Equipment None Reported. Allergies Allergen ID Allergen Name Allergen Category Reaction Reaction Severity Criticality Documentation Date Start Date Code Code System Note Provider Name and Address Organization Details Recorded Time 157 hydrocodone Not available Not available Not available Not mmubwbqgj10/18/26805357HeMmywLkdaigg Dameon [facility], [facility]05/30/2025 13:28:33694mrsgicxvpnx,medicationNot available Not available Not dhlseyynd13/18/71261035ArCwzzFvrrjgo [facility], [facility]05/30/2025 13:28:49 Medications Name Sig Start Date Stop Date Status Note LastModified by Organization Details LastModified Time atorvastatin 20 mg tablet TAKE 1 TABLET BY MOUTH EVERYDAY AT THE SAME TIME activeNot AvailableNot AvailableNot Availableclopidogrel 75 mg tabletTAKE 1 TABLET (75 MG) BY MOUTH IN THE EYFHURS5408/02/2025ompletedNot AvailableNot AvailableNot Availableciprofloxacin 250 mg tabletTAKE 1 TABLET BY MOUTH IN THE MORNING AND BEFORE BEDTIME FOR 5 DAYS07/30/2025ompletedNot AvailableNot AvailableNot Availableamlodipine 5 mg tabletTAKE 1 TABLET BY MOUTH ONCE DAILY AT THE SAME TIME08/02/2025ompletedNot AvailableNot AvailableNot Available ciprofloxacin 500 mg tabletTAKE 1 TABLET BY MOUTH IN THE MORNING AND BEFORE BEDTIME FOR 5 DAYSactiveNot AvailableNot AvailableNot Availableaspirin 81 mg tablet,delayed releaseTAKE 1 TABLET BY MOUTH EVERY DAYactiveNot AvailableNot AvailableNot Availabletramadol 50 mg tabletTAKE 1 TABLET BY MOUTH TWICE A DAY NEEDED FOR PAIN *MUST LAST 30 DAYS*activeNot AvailableNot AvailableNot Available acetaminophen 500 mg tabletTake 2 tablets every day by oral route in the morning.activeNot AvailableNot AvailableNot Availablesildenafil 100 mg tablet TAKE 1 TABLET BY MOUTH EVERY DAY NEEDED FOR ERECTILE DYSFUNCTIONactiveNot AvailableNot AvailableNot Availableterbinafine HCl 250 mg tabletTAKE 1 TABLET BY MOUTH EVERY DAYactiveNot AvailableNot AvailableNot Availableentacapone 200 mg tabletTAKE 1 TABLET BY MOUTH 2-3 TIMES A DAY5activeNot AvailableNot AvailableNot Availabletamsulosin 0.4 mg capsuleTAKE 1 CAPSULE BY MOUTH EVERY DAY FOR 90 DAYSactiveNot AvailableNot AvailableNot Availablebaclofen 10 mg tablet TAKE 1 TABLET BY MOUTH TWICE A DAY NEEDED FOR MUSCLE SPASM06/01/2025ompleted Not AvailableNot AvailableNot Availableamlodipine 10 mg tabletTAKE 1 TABLET BY MOUTH EVERYDAY AT DCNEQDN1806/01/2025ompletedNot AvailableNot AvailableNot Availableerythromycin 5 mg/gram (0.5 %) eye ointmentAPPLY TO BOTH EYES 3 TIMES DAILY FOR 1 WEEK06/01/2025ompletedNot AvailableNot AvailableNot Available lisinopril 5 mg tabletTAKE 1 TABLET BY MOUTH EVERY DAYactiveNot AvailableNot AvailableNot Availablemetoprolol succinate ER 25 mg tablet,extended release 24 hrTAKE 1 TABLET BY MOUTH EVERY DAYactiveNot AvailableNot AvailableNot Available carbidopa 25 mg-levodopa 100 mg tabletTAKE 2 TABLET BY MOUTH AT 8AM, 2 TABLET AT NOON, 2 TABLETS AT 3PM, AND 2 TABLET AT 6PMactiveNot AvailableNot AvailableNot Availablemetformin ER 500 mg tablet,extended release 24 hrTAKE 2 TABLETS BY MOUTH IN THE MORNING AND BEFORE BEDTIME*DO NOT CRUSH,CHEW,OR SPLIT*08/02/2025 completedNot AvailableNot AvailableNot Availableamoxicillin 875 mg-potassium clavulanate 125 mg tabletTAKE 1 TABLET BY MOUTH IN THE MORNING AND BEFORE BEDTIME FOR 5 DAYS5completedNot AvailableNot AvailableNot Available Lexapro 5 mg tabletTake 1 tablet every day by oral route.5activeNot AvailableNot AvailableNot AvailableBD Ultra-Fine Mini Pen Needle 31 gauge x 3/16 USE DAILY DIRECTEDactiveNot AvailableNot AvailableNot AvailableFish Oil activeNot AvailableNot AvailableNot AvailableLantus Solostar U-100 Insulin 100 unit/mL (3 mL) subcutaneous penINJECT 10 UNITS UNDER THE SKIN EVERY DAY AT BEDTIMEactiveNot AvailableNot AvailableNot AvailableMyrbetriq 50 mg tablet,extended releaseTAKE 1 TABLET BY MOUTH EVERY DAYactiveNot AvailableNot AvailableNot AvailableXigduo XR 10 mg-500 mg tablet,extended releaseTAKE 1 TABLET BY MOUTH IN THE MORNING WITH MEALSactiveNot AvailableNot AvailableNot AvailableKlayesta 100,000 unit/gram topical powderAPPLY TO THE AFFECTED AREA(S) IN THE MORNING AND BEFORE BEDTIME.activeNot AvailableNot AvailableNot Available Vitals Date Recorded Respiratory rate Body height Body weight Systolic And Diastolic Provider Name and Address Organization Details Last Updated DateTime 06/01/2025 16 /min 167.64 cm 00226.59 g 122/62 mm[Hg] Taylor Xiao [employer] 06/01/2025 10:26:03 Date Recorded Body height Respiratory rate Body weight Systolic And Diastolic Provider Name and Address Organization Details Last Updated DateTime 08/02/2025 167.64 cm 16 /min 14281.59 g 118/52 mm[Hg] Taylor Xiao [employer] 08/02/2025 09:20:03 Date Recorded Body height Respiratory rate Body weight Provider Name and Address Organization Details Last Updated DateTime 09/06/2025 167.64 cm 16 /min 43679.59 g Taylor [employer] 09/06/2025 10:19:45 Social History Question Answer Notes LastModified by Organization D etails LastModified Time Tobacco Smoking Status Former Smoker Taylor poon [employer], [facility]05/30/2025 13:30:08What Is Your Level Of Caffeine Consumption?Xtmeujnmvze26Unhtfmprdfe not qwjbiwpvn37/18/2025Do You Or Have You Ever Used Marijuana?Never Dyoenovgcvx05Uzrkmuxqpiz not iwpfhphjs44/18/2025 Sex: Unknown Functional Status Question Answer Note LastModified by Organization D etails LastModified Time Do you use any illicit or recreational drugs? No lmexppb89Duypfcwgowt not sojknubbr83/18/2025Do you or have you ever used any other forms of tobacco or nicotine?Wbjeoytil75Dhnxzczgoqy not available 05/30/2025What is your level of alcohol consumption?Evlkgmnjped66Dglgfdcbuwn not ljqurqqfh39/18/2025Do you or have you ever used any nicotine-free cigarettes, vape, or chewing tobacco?Kuxmammfg37Bqrfgukexya not tyfynodlk55/18/2025 Mental Status None recorded. Family History Relationship Description Onset Age of this Age Resolved Age Notes LastModified by Organization Details LastModified Time Mother Malignant neoplastic disease klayvie51Pje igihmqmcm91/18/2025 13:29:35FatherHeart lwqgfvjlpvvmrd11Cgk ningraxsu02/18/2025 13:29:44SisterDiabetes zoshilpvvabzdzk29Hdh available 05/30/2025 13:29:50 Medical History Condition Response Diabetes Y Heart Attack (DC) Y Hyperlipidemia Y Arthritis Y Hypertension Y Past Encounters Encounter ID Performer Location Encounter Start Date Encounter Closed Date Diagnosis/Indication Diagnosis SNOMED-CT Code Diagnosis ICD10 Code Diagnosis IMO Codes Diagnosis Note [id number] CHIKIS ALVES PA-C [place] [facility] [address] [place] [id number] 06/01/2025 10:15:49 06/01/2025 11:02:04 Sleep apnea 77445941 G47.30 Patient has a CPAP that he does not wear. He followed with Dr Ybarra at [facility]. He remains untreated.His notes he sleeps all the time .[id number] G20.C 41945856 The patient presents with history of Parkinsons disease. He was seen at [facility] on 02/25/2024 with altered mental status and general unwell feeling for approximately 2 weeks[address] He had a CT head and MRI brain that did not reveal acute pathology. He was noted to exhibit Parkinsonian features and started on Sinemet 25/100 TID. His and daughter state they have seen improvement in his gait and he is moving better but the medication seem to wear off with a definite notable difference. He had increasein freezing episodes and bradykinesia reportedly and has had some response to Sinemet adjustment when he takes 2 tabs. His tried given this to him every 2 hours while they were on vacation and she noted a remarkable difference. He is doing well with current dosing. He has done PT in the past for balance/gait and is willing to repeat. His notes 3 falls since February and one of the falls werewhen he forgot to take his medications. [id number] [facility]As[facility] [place] [facility] [address] [place] [address] 08/02/2025 09:12:0708/02/2025 09:51:16Sleep [id number] Patient has a CPAP that he does not wear. He followed with Dr Ybarra at [facility]. He remains untreated.He sleeps most of the day per his .Oypjhzqudpuy74190925 G20.C [id number] The patient presents with history of Parkinsons disease. He was seen at [facility] on 02/25/2024 with altered mental status and general unwell feeling for approximately 2 weeks[address] He had a CT head and MRI brain that did not reveal acute pathology. He was noted to exhibit Parkinsonian features and started on Sinemet 25/100 TID. His and daughter state they have seen improvement in his gait and he is moving better but the medication seem to wear off with a definite notable difference. He had increasein freezing episodes and bradykinesia reportedly and has had some response to Sinemet adjustment when he takes 2 tabs. His tried given this to him every 2 hours while they were on vacation and she noted a remarkable difference. He has started home health PT with [facility] and he has had 3 visits. He is having off symptoms prior to his next dose of Sinemet manifested as tachypnea and lip smacking. He notes he feels anxious.[id number] [facility] [address] [place] [address] 09/06/2025 10:16: 10:53:51Sleep tpguq59910918J77.30 Patient has a CPAP that he does not wear. He followed with Dr Ybarra at [facility]. He remains untreated.Pdkydrxgcubu94610477S73.C [id number] The patient presents with history of Parkinson's disease. He was seen at [facility] on 02/25/2024 with altered mental status and general unwell feeling for approximately [address] He had a [address] head and MRI brain that did not reveal acute pathology. He was noted to exhibit Parkinsonian features and started on Sinemet 25/100 TID. His and daughter state they have seen improvement in his gait and he is moving better but the medication seem to wear off with a definite notable difference. He had increase in freezing episodes and bradykinesia reportedly and has had some response to Sinemet adjustment when he takes 2 tabs. His tried given this to him every 2 hours while they were on vacation and she noted a remarkable difference. He has started home health PT with [facility] and he has had 3 visits. He is having off symptoms prior to his next dose of Sinemet manifested as tachypnea and lip smacking. He has responded well to Comtan addition and he is also working with PT and ST. Health Concerns Section Related Observation LastModified by Organization Detai ls LastModified Time None Recorded Concern Status LastModified by Organization Details LastModified Time None Recorded Advance Directives Directive None Recorded Payers Insurance Date Sequence Insurance Name Policy Number Policy Gao Covered Member ID Gao Member ID Guarantor Name 09/06/2025 2 [facility] Ramon [id number] B [id number] Ramon [id number] B Kolker Notes Date Note Type Note Provider Name and Address Orga nization Details Recorded Time 06/01/2025 text/html Sleep ProblemsRe ported by Patient Parkinson's DiseaseReported by Patient-takes Sinemet-denies tremors- reports 3 falls since last seen-at one time, he forgot his Sinemet dose, the other time he did not have his walker, and the other time he lost 13 lbs and needed blood pressure medication lowering per 's report-ambulates with his walker-using it more lately-slowness in movement- states spells don't last as long as before-sleeping well at night-averages 8 hours a night-does not wake feeling rested- reports he sleeps all day and all night-not getting inspire device after all-pulse ox has been good- reports some worsening mentally - worsening confusion and memory-denies hallucination The patient is here to establish care. He was previously followed by [facility].CHIKIS ALVES PA-C [address] [facility],[address] [place], [address], [facility], [facility]06/01/2025 12:57:381text/htmlParkinson's Disease Reported by Patient-takes Sinemet-denies tremors-reports 2 falls since May- states that he fell at the bed of the bed-states that he had another one where he slid on the floor-ambulates with his walker-slowness in movement-sleeping well at night-averages 8 hours a night-does not wake feeling rested-pulse ox has been good-patient denies worsening confusion-family would agree-denies hallucination-patient's family states that when the medication wears off he does some deep breathing and lip smacking-he does not he feels anxious as if his medication is wearing off-he is doing the home PT for balance and training- [facility] -he refuses to do some of the exercises on his own like he should-he has had 3 visitsCHIKIS ALVES PA-C [address] [facility], [place], [address], [facility], [facility]08/02/2025 10:06:4809/06/2025text/htmlParkinson's Disease Reported by Patient-takes Sinemet-started Comtan last visit, PT ordered-states that the medication has improved symptoms-his notes that he gets up earlier on Sundays and needs an extra Sinemet dose-denies tremors-ambulates with his walker-states that balance is improving-she is doing exercises that PT gives him even on the days that they are not coming in-this is really improving balance and strength-sleeping well at night-averages 8 hours a night-patient denies worsening confusion-family would agree-denies hallucinationCHIKIS ALVES PA-C [address] [facility], [place], [address], [facility] [place], [facility]09/06/2025 11:09:37
--- OUTSIDE RECORDS SUMMARY | 2025-09-30 20:37 | XMS_ITS | Encounter Summary ---
Author Organization [facility] Address [address] [place] [address] Care Team Providers Care Drum Maker Name Role Phone Gerald Field DO Primary Care Provider [phone] Gerald Field DO Unavailable Gregory Ybarra MD Unavailable [phone] Sunny Vasquez DO Unavailable Eusebio Guerin MD Unavailable Hillary Wilhelm Unavailable Encounter Details DateTypeDepartmentCare Team (Latest Contact Info)Itevycdtsfm75/09/2025Bamboo flowsheet [facility] [address] [place] [address] Gerald Field DO [address] [place] [address] Social History Tobacco UseTypesPacks/DayYears UsedDateSmoking Tobacco: FormerCigarettes1.522 Smokeless Tobacco: NeverAlcohol UseStandard Drinks/WeekCommentsNot Currently0 (1 standard drink = 0.6 oz pure alcohol)caffeine intake : [id number] Health Literacy AnswerDate RecordedHow often do you need to have someone help you when you read instructions, pamphlets, or other written material from your doctor or pharmacy? Vlowbc0003/25/2024Social Connection and Isolation PanelAnswerDate Recorded Frequency of Communication with Friends and FamilyNot on file03/25/2024Frequency of Social Gatherings with Friends and FamilyNot on file03/25/2024How often do you attend druze or roman catholic services?More than 4 times per year03/25/2024o you belong to any clubs or organizations such as druze groups, unions, fraternal or athletic groups, or school groups?No03/25/2024How often do you attend meetings of the clubs or organizations you belong to?Never03/25/2024re you , , , , never , or living with a partner?Jtxvvtm5803/25/2024UDIT-CAnswerDate RecordedQ1: How often do you have a [...] hard at all03/25/2024HQ-2AnswerDate RecordedPatient Health Questionnaire-2 Score0 09/20/2025[facility] [place] [facility] - Occupational Stress QuestionnaireAnswerDate [...] were you homeless or living in a mcc (including now)?No 03/25/2024Sex and Gender InformationValueDate RecordedSex Assigned at BirthNot on fileLegal GbeDmpj2712/25/2022 10:58 PM EDTGender IdentityNot on fileSexual OrientationNot on filedocumented as of this encounter Plan of Treatment DateTypeDepartmentCare Team (Latest Contact Info)Xrkqktuhtgw00/06/2026 2:45 PM ESTOffice Visit [facility] [address] [place] [address] Tanja Connell DPM [address] [place] [address] 11/01/2025 10:00 AM ESTProcedure Visit [facility] [place] [facility] [address] [place] [address] Tanja Connell DPM [address] [place] [address] 02/01/2026 9:05 AM EDTOffice Visit [facility] [address] [place] [address] Mary Davies MD [address] [place] [address] 02/13/2026 10:20 AM EDTOffice Visit [facility] [address] [place] [address] Gerald Field DO [address] [place] [address] documented as of this encounter Visit Diagnoses Not on filedocumented in this encounter Additional Health Concerns AssessmentNoted TimePQ-9 Depression Total Score: 6003/01/2025 10:00 AM EDT documented as of this encounter Care Teams Team MemberRelationshipSpecialtyStart DateEnd Date Gerald Field DO [address] [place] [address] [facility] - [facility]/23 Gerald Field DO [address] [place] [address] PCP - ACO Reach12/12/23 Gregory Ybarra MD [address] [place] [address] Referring PhysicianSmadera community hospital Qfsfslyl61/29/24 Sunny Vasquez DO [address] [place] [address] Fzmsxgexuvhpmo70/29/24 Eusebio Guerin MD [address] [place] [address] [place] [address] Referring LwkseqybgXwjftmowf13/25/24 Hillary Wilhelm PA [address] [facility] [address] [place] [id number] Physician AssistantNeurology12/29/24documented as of this encounter
--- OUTSIDE RECORDS SUMMARY | 2025-09-30 20:37 | XMS_ITS | Patient Health Record ---
Author Organization [facility] [place] in [place] Address [address] [place] [address] Care Team Providers Care Grey Tender Name Role Phone Gerald Field DO Primary Care Provider Ethan Heredia [phone] Allergies No Known Allergies Reason For Referral No Information Medications Medication SIG (Take, Route, Frequency, Duration) Notes Start Date End Date Status Myrbetriq 50 MG 1 tablet - sample Or ally Once a day; Duration: 30 days Lot# [id number] Exp: 04/202603/18/2024 ActiveFish OilActiveLantus SoloStarActiveLisinoprilActiveClindamycin HCl 300 MG TAKE 1 CAPSULE BY MOUTH IN THE MORNING, EVENING AND BEFORE BEDTIME FOR 10 DAYS Oral; Duration: 10 DaysNot-TakingVitamin CNot-TakingVitamin ENot-Taking Tamsulosin HCl 0.4 MG1 capsule Orally Once a day; Duration: 90 days12/16/2024 ActiveGlimepirideActiveVitamin B ComplexNot-TakingVitamin D90Gcm-Okgnim Carbidopa-Levodopa 25-100 MGOral; Duration: 90 DaysActiveoxyBUTYnin Chloride ER 10 MG1 tablet Orally Once a day; Duration: Not-TakingClopidogrel BisulfateActiveSildenafil Citrate 100 MG1 tablet as needed Orally Once a day; Duration: 30 day(s)01/24/20224678Ntw-ZvctiwOckny-93ZdfijeRxmfQce-TakingAtorvastatin CalciumActiveoxyBUTYnin Chloride ER 10 MG1 tablet Orally [...] alcohol in the p ast year? No Uvaosr6AqxatzimkqzrhlNjcgbuna Problems Problem Type SNOMED Code ICD Code Onset Dates Problem Status W/U Status Risk Notes Problem Urge incontinence of urine (89966513) Urg e incontinence (N39.41) ActiveconfirmedProblemBenign prostatic hyperplasia (918869491)BPH (benign prostatic hyperplasia) (N40.0)ActiveconfirmedProblemErectile dysfunction (disorder) (893460546)Erectile dysfunction, unspecified erectile dysfunction type (N52.9)ActiveconfirmedProblemLower urinary tract symptoms due to benign prostatic hypertrophy (91264210205212)Benign prostatic hyperplasia with lower urinary tract symptoms (N40.1)Activeconfirmed Vital Signs Height 68 in 12/16/2024 Ezqnqy278 lbs12/16/2024BMI29.04 kg/m212/16/2024 Encounters Encounter Location Date Provider Diagnosis Urology [address] [address] 12/16/2024 Ethan Chowdary Frequency of micturition R35.0 [...] Order Date UA DIP NONAUTO WO MICRO (94469) - IN OFF ICE 09/21/2020 Future Test Test Name Order Date PSA, TOTAL 01/31/2024 PSA, TOTAL 10/30/2024 Insurance Providers Payer Name Payer Address Payer Phone Subscriber Number Group Number Insured Name Patient Relationship to Insured Coverage Start Date Coverage End Date [place] [address] [place] [address] [id number] Jakob Mariee - [facility] the [facility] [address] [place] [phone], WilliamSelf - patient is the [id number] 2012 Medical (General) History Medical History History ICD Code diabetes mellitus hypertensionhyperlipidemiaheart attackheart diseaseElevated prostate specific antigen (PSA)R97.20Frequency of mnmiixdkrmsJ65.0Leg infectionparkinsons disease Surgical History Surgery Date(Month/Year) cardiac ablation left knee replacementright knee replacementNerve ablation in backfinger surgery Hospitalization History Reason Date(Month/Year)
--- OUTSIDE RECORDS SUMMARY | 2025-09-30 20:37 | XMS_ITS | Clinical Summary ---
Author Organization [facility] Address [address] [place] [address] Phone Care Team Providers Care Fisher Name Role Phone Ashlee Henry MD Primary Care Provider [phone] Social History Tobacco UseTypesPacks/DayYears UsedDateSmoking Tobacco: Never AssessedSex and Gender InformationValueDate RecordedSex Assigned at BirthNot on fileLegal Sex Male09/06/2022 11:52 AM ESTGender IdentityNot on fileSexual OrientationNot on file Last Filed Vital Signs Vital SignReadingTime TakenCommentsBlood Kfqaekbk360/6208 10:03 AM EDT Spdqd752105/27/2022 10:03 AM JJQCqgaxpitmmm75.8 ??C (96.4 ??F)05/27/2022 10:03 AM EDTRespiratory Rate--Oxygen Vguagiyyqk58%05/27/2022 10:03 AM EDTInhaled Oxygen Concentration--Jkehqs01.8 kg (209 lb)05/27/2022 10:03 AM XVFWfxbrm233.7 cm (5' 8 )05/27/2022 10:03 AM EDTBody [...] 09/05/2021, 04/07/2019, Additional history exists Irritable Bowel CkuanffgFnsqhakxkjtj40/07/2014HIB VaccinesAged OutNo longer eligible based on patient's [...] NamePriorityDate/TimeAssociated DiagnosisCommentsLIPID PANELRoutine 05/27/2022 10:49 AM EDT PMSEKFCUPUS09/07/2014 from Last 3 Months or Most Recently Relevant to Health Maintenance Results * (ABNORMAL) Lipid Panel (05/27/2022 10:49 AM EDT)ComponentValueRef RangeTest MethodAnalysis TimePerformed AtPathologist HghvxzbzlOzkfnnjvnvw5989 - 199 mg/dLCURAHEALTH [facility] LABComment: . ?AGE ?DESIRABLE ?? BORDERLINE HIGH [...] be performed immediately prior to Metamizole dosing. HDL37.8(A)mg/dLCURAHEALTH HERITAGE VALLEY LABComment: . ?AGE ?VERY LOW ?? LOW ? NORMAL ?HIGH ?? 0-19 Y < 35 < 40 40-45 ---- 20-24 Y ---- < 40 >45 ---- >24 Y ---- < 40 40-60 >60 . Cholesterol/HDL Ratio3.5CUR[facility] LABComment: REF VALUES DESIRABLE < 3.4 HIGH RISK > 5.0 RUG527 - 99 mg/dLCURAHEALTH HERITAGE VAL[facility] LABComment: . ? NEAR ?BORD ?AGE ?DESIRABLE ??OPTIMAL ?HIGH ? HIGH ? VERY HIGH 0-19 Y 0 - 109 --- 110-129 >/= 130 ---- 20-24 Y 0 - 119 --- 120-159 >/= 160 ---- >24 Y 0 - 99 100-129 130-159 160-189 >/=190 . QRCZ232 - 40 mg/dLCURAHE[facility] VAL[facility] MTORazfdvlmpwisr458(H)0 - 149 mg/dLCAROMONT REGIONAL MEDICAL CENTERC LABComment: . ?AGE ?DESIRABLE ?? BORDERLINE HIGH [...] EDT Narrative Authorizing ProviderResult TypeResult StatusPoli Mercado MDPRAIRIE VIEW [facility] BLOOD ORDERABLESFinal ResultPerforming OrganizationAddressCity/State/ZIP CodePhone Number [facility] [address] [address] * COLONOSCOPY (08/19/2014)Anatomical RegionLateralityModalityEndoscopy Narrative 08/19/2014 Ordered by an unspecified provider. Authorizing ProviderResult TypeResult StatusOnbase ConversionENDOSCOPY PROCEDURE ORDERABLESFinal Result from Last 3 Months or Most Recently Relevant to Health Maintenance Insurance * Guarantor: Ramon Mariee TypeRelation to PatientDate of BirthPhone Billing AddressPersonal/DyugvyBesl1945 [address] [address] Care Teams Team MemberRelationshipSpecialtyStart DateEnd Date Ashlee Henry MD [facility] - General04/12/19
--- OUTSIDE RECORDS SUMMARY | 2025-09-30 20:38 | XMS_ITS | Encounter Summary ---
Author Organization [facility] Address [address] [place] [address] Care Team Providers Care Skimmer Scoop Operator Name Role Phone Gerald Field DO Primary Care Provider [phone] Gerald Field DO Unavailable Gregory Ybarra MD Unavailable [phone] MichaelSunny parrish Madelin DO Unavailable Eusebio Guerin MD Unavailable Hillary Wilhelm Unavailable Encounter Details DateTypeDepartmentCare Team (Latest Contact Info)Zpzjhdnnkqu93/18/2025Bamboo flowsheet [facility] [place] [facility] [address] [place] [address] Tanja Connell DPM [address] [place] [address] Social History Tobacco UseTypesPacks/DayYears UsedDateSmoking Tobacco: FormerCigarettes1.522 Smokeless Tobacco: NeverAlcohol UseStandard Drinks/WeekCommentsNot Currently0 (1 standard drink = 0.6 oz pure alcohol)caffeine intake : iwwuZ0794 Health Literacy AnswerDate RecordedHow often do you need to have someone help you when you read instructions, pamphlets, or other written material from your doctor or pharmacy? Ocxoog5703/25/2024Social Connection and Isolation PanelAnswerDate Recorded Frequency of Communication with Friends and FamilyNot on file03/25/2024Frequency of Social Gatherings with Friends and FamilyNot on file03/25/2024How often do you attend jewish or rastafari services?More than 4 times per year03/25/2024o you belong to any clubs or organizations such as jewish groups, unions, fraternal or athletic groups, or school groups?No03/25/2024How often do you attend meetings of the clubs or organizations you belong to?Never03/25/2024re you , , , , never , or living with a partner?Tkcawez4803/25/2024UDIT-CAnswerDate RecordedQ1: How often do you have a [...] hard at all03/25/2024HQ-2AnswerDate RecordedPatient Health Questionnaire-2 Score0 09/20/2025[facility] Occupational Health - Occupational Stress QuestionnaireAnswerDate [...] steady place to sleep or slept in crooked [place] (including now)?No03/17/2024Housing Stability Vital SignAnswerDate RecordedIn the last 12 months, was there a time when you were not able to pay the mortgage or rent on time?No03/25/2024In the past 12 months, how many times have you moved where you were living?t any time in the past 12 months, were you homeless or living in a prison (including now)?No 03/25/2024Sex and Gender InformationValueDate RecordedSex Assigned at BirthNot on fileLegal ZhnCrob7512/25/2022 10:58 PM EDTGender IdentityNot on fileSexual OrientationNot on filedocumented as of this encounter Plan of Treatment DateTypeDepartmentCare Team (Latest Contact Info)Aqzbffateos49/06/2026 2:45 PM ESTOffice Visit [facility] [address] [place] [address] Tanja Connell DPM [address] [place] [address] 11/01/2025 10:00 AM ESTProcedure Visit [facility] [address] [place] [address] Tanja Connell DPM [address] [place] [address] 02/01/2026 9:05 AM EDTOffice Visit [facility] [address] [place] [address] Mary Davies MD [address] [place] [address] 02/13/2026 10:20 AM EDTOffice Visit [facility] [place] [facility] [address] [place] [address] Gerald Field DO [address] [place] [address] documented as of this encounter Visit Diagnoses Not on filedocumented in this encounter Additional Health Concerns AssessmentNoted TimePHQ-9 Depression Total Score: 6003/01/2025 10:00 AM EDT documented as of this encounter Care Teams Team MemberRelationshipSpecialtyStart DateEnd Date Gerald Field DO [address] [place] [address] PCP - GeneralFaidly Medicine02/18/23 Gerald Field DO [address] [place] [address] PCP - ACO Reach12/12/23 Gregory Ybarra MD [address] [facility] [address] [place] [address] Referring PhysicianStwin cities community hospital Ervqmhfv97/29/24 Sunny Vasquez DO [address] [place] [address] Pxkvzougcvhqpw56/29/24 Eusebio Guerin MD [address] [place] [address] [place] [address] Referring VgmtttwwqEqsicudma70/25/24 Hillary Wilhelm PA [address] [facility] [address] [place] [address] Physician AssistantNeurology12/29/24documented as of this encounter
--- OUTSIDE RECORDS SUMMARY | 2025-09-30 20:38 | XMS_ITS | Clinical Summary ---
Author Organization [facility] Address [address] [place] [address] Care Team Providers Care Residence Leasing Agent Name Role Phone Gerald Field DO Primary Care Provider [phone] Gerald Field DO Unavailable [phone] Gregory Ybarra MD Unavailable [phone] Sylvesterlupe Sunny Yusuf DO Unavailable Eusebio Guerin MD Unavailable [phone] Hillary Wilhelm Unavailable Allergies Active AllergyReactionsCriticalityNoted ZqiwTwzyfjyoQlvlmsjbzbp36/24/2025 Other Reaction(s): Nausea Dagwras9003/01/2024 Medications MedicationSigDispense QuantityRefillsLast FilledStart DateEnd DateStatus insulin [...] hyperglycemia, without long-term current use of insulin ([facility]),Type 2 diabetes mellitus with stage 3b chronic kidney disease, without long-term current use of insulin ([facility])1 Units every 14 (fourteen) days 2 each 4Active traMADol (Ultram) 50 MG tablet Indications:MyalgiaTake 1 tablet (50 mg) by mouth every 8 (eight) hours if needed for severe pain 30 tablet 5Active tamsulosin (Flomax) 0.4 MG 24 hr capsule Take 0.4 mg by mouth at hnletmf64/06/2025Active lisinopril 5 MG tablet Indications:Essential (primary) hypertensionTAKE 1 TABLET BY MOUTH EVERY DAY 90 tablet 5Active metoprolol succinate XL (Toprol-XL) 25 MG 24 hr tablet Indications:Hypertensive heart disease with heart failure ([facility])Take 1 tablet (25 mg) by mouth Daily 90 tablet 5Active sildenafil (Viagra) 100 MG tablet Indications:Erectile dysfunction, unspecified erectile dysfunction typeTake 1 tablet (100 mg) by mouth Daily as needed for erectile dysfunction 12 tablet [id number]//[id number]/6Active psyllium (Metamucil) 0.36 g capsule Take 6 capsules by mouth DailyActive Aspirin Low Dose 81 MG EC tablet Indications: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, unspecified vessel or lesion type, unspecified whether resighini or transplanted heart,Type 2 diabetes mellitus without complication, with long-term current use of insulin ([facility])TAKE 1 TABLET BY MOUTH EVERY DAY 90 tablet 5Active carbidopa-levodopa (Sinemet) 25-100 MG tablet Indications:Parkinson's disease with dyskinesia and fluctuating manifestations ([facility])TAKE 2 TABLET BY MOUTH AT 8AM, 2 tablet at eleven, 2 tablets at 2PM, AND 2 tablet at 5PM5Active terbinafine (LamISIL) 250 MG tablet Indications:OnychomycosisTake 1 tablet (250 mg) by mouth Daily 90 tablet 5Active atorvastatin (Lipitor) 20 MG tablet Indications:Hypertensive heart disease with heart failure ([facility])Take 1 tablet (20 mg) by mouth at [...] OVER 250 INJECT 10 UNITS ONLY ONCE DAILY.08/08/2025tive nystatin (Mycostatin) 828466 UNIT/GM powder Indications:Tinea crurisApply topically in the morning and before bedtime. 30 g 312516Active Xigduo XR 10-500 MG Indications:Type 2 diabetes mellitus without complication, with long-term current use of insulin (HCC)TAKE 1 TABLET BY MOUTH IN THE MORNING WITH MEALS 30 tablet 5125Active dapagliflozin-metFORMIN ER (Xigduo XR) 10-500 MG Indications:Type 2 diabetes mellitus without complication, with long-term current use of insulin (HCC)Take 1 tablet by mouth in the morning. Take with meals. 30 tablet /Discontinued nystatin (Mycostatin) 535455 UNIT/GM powder Indications:Tinea crurisApply topically in the morning and before bedtime. Discontinued(Reorder) ciprofloxacin (Cipro) 500 MG tablet Take 500 mg by mouth in the morning and 500 mg before bedtime.09/20/2025 Discontinued Active Problems ProblemNoted DateDiagnosed DateLower urinary tract symptoms due to benign prostatic apkxysykrta54/08/2025Orthostatic jgxoanvrbucxkln27/22/2025 Assessment & Plan (05/04/2025 12:14 PM EDT): Reviewed ER notes including labs and imaging. Will lower amlodipine, as pt has lost weight since starting the xigduo and bp is trending lower. Orders: amLODIPine (Norvasc) 5 MG tablet; Take 1 tablet (5 mg) by mouth 1 (one) time each day at the same time Ykbgimpksgn36/25/2025omplication of ventilation umtwwna1708/07/2024Myocardial ahdoffmurc74/26/2024AC (premature atrial contraction)06/18/2024Status post cardiac pacemaker rogjzclbo14/06/2024 Assessment & Plan (06/24/2025 12:46 PM EDT): stable S/P PTCA (percutaneous transluminal coronary angioplasty)06/18/2024arkinsonism 03/01/2024 Assessment & Plan (09/20/2025 12:31 PM EST): Problem is stable, but seems to be having side effects to meds so will call neuro for further recommendations Assessment & Plan (06/24/2025 12:46 PM EDT): [...] clinic if any changes occur Vitamin D yroxfvnpgy55/21/2024Generalized fkvuiiyyhzkkaz52/21/2024DD (degenerative disc disease), lgoprnkzlvb46/21/2024 Assessment & Plan (06/14/2025 9:37 AM EDT): Patient advised to return if symptoms worsen and/or persist despite treatment. Type 2 diabetes mellitus with hyperglycemia, without long-term current use of gtslflb3310/02/2023 Assessment & Plan (09/20/2025 12:31 PM EST): Labs ordered today, will follow up when results availableReviewed labs and/or imaging at today. Will continue current treatment regimen and follow up at next scheduled visit unless problems arise. Orders: Microalbumin / creatinine urine ratio; Future Hemoglobin A1c; Future Assessment & Plan (06/14/2025 9:37 AM EDT): Reviewed labs and/or imaging at ov today. Will continue current treatment regimen and follow up at next scheduled visit unless problems arise. Benign prostatic bsymyshryki33/03/2023oronary artery fticjrd9905/15/2023 Assessment & Plan (09/20/2025 12:31 PM EST): Problem is stable, will continue with current treatment plan. Call or return to clinic if any changes occur Orders: Lipid panel; Future Comprehensive metabolic panel; Future CBC and differential; Future Diabetic renal iiuorwi0605/15/2023 Assessment & Plan (09/20/2025 12:31 PM EST): Reviewed labs and/or imaging at ov today. improved significantly, Will continue current treatment regimen and follow up at next scheduled visit unless problems arise. Orders: Comprehensive metabolic panel; Future CBC and differential; Future Heart mwpfukz4205/15/20235084Bpiylhtkbepern66/03/2023 Assessment & Plan (09/20/2025 12:31 PM EST): Orders: Lipid panel; Future Comprehensive metabolic panel; Future CBC and differential; Future Assessment & Plan (06/14/2025 9:37 AM EDT): Reviewed labs and/or imaging at ov today. Will continue current treatment regimen and follow up at next scheduled visit unless problems arise. Xajkpusluxd61/03/2023 Assessment & Plan (09/20/2025 12:31 PM EST): Labs ordered today, will follow up when results available Orders: TSH; Future T4, free; Future T3; Future Assessment & Plan (06/14/2025 9:37 AM EDT): Labs ordered today, will follow up when results available Assessment & Plan (05/04/2025 12:14 PM EDT): Labs ordered today, will follow up when results available Orders: TSH; Future T4, free; Future T3; Future Obstructive sleep apnea beiefmyu44/03/2023eripheral vascular czhsgue0205/15/2023 Sick sinus /03/2023 Assessment & Plan (06/24/2025 12:46 PM EDT): Cont fu with cardiology Stage 3a chronic kidney vqkwvuc4105/15/2023 Assessment & Plan (06/14/2025 9:37 AM EDT): Reviewed labs and/or imaging at ov today. eincouraged hydration. Orders: Microalbumin / creatinine urine ratio; Future Comprehensive metabolic panel; Future CBC and differential; Future Exercise-induced vyogmb4903/09/20153942Xkracvwnwmcq22/28/2015 Assessment & Plan (09/20/2025 12:31 PM EST): Record Blood Pressures 2-4 times weekly and record. Return with readings at next appointment. Call with readings if sees significant changes Orders: Microalbumin / creatinine urine ratio; Future Comprehensive metabolic panel; Future Assessment & Plan (06/14/2025 9:37 AM EDT): [...] day at the same time Stented coronary uzwyxp3503/09/2015 Encounters DateTypeDepartmentCare EbdmFsqupyqkjce77/18/2025 1:45 PM ESTOffice Visit [facility] [address] [place] [phone] Tanja Connell DPM Hammer toe of right foot (Primary Dx); Pain of toe of right foot09/29/2025amboo flowsheet [facility] [address] [place] [phone] Tanja Connell DPM 09/29/20253910Boptwl25/10/2025Refill [facility] [address] [place] [address] Gerald Field DO Type 2 diabetes mellitus without complication, with long-term current use of insulin ([facility])09/20/2025 11:20 AM ESTOffice Visit [facility] [address] [place] [address] Gerald Field DO 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, unspecified vessel or lesion type, unspecified whether resighini or transplanted heart (Primary Dx); Tinea cruris; Diabetic nephropathy associated with type 2 diabetes mellitus ([facility]); Mixed hyperlipidemia; Hypertension, unspecified type; Hypothyroidism, unspecified type; Parkinson's disease with dyskinesia and fluctuating manifestations ([facility]); Type 2 diabetes mellitus with hyperglycemia, without long-term current use of insulin ([facility])09/20/2025Telephone [facility] [address] [place] [address] Maryan Sweeney MA 09/20/2025amboo flowsheet [facility] [address] [place] [address] Gerald Field DO 09/20/20252428Gzqnna26/04/2025 2:00 PM ESTOffice Visit [facility] [address] [place] [address] Tanja Connell DPM Hammertoe of left foot (Primary Dx); Left foot pain09/15/2025amboo flowsheet [facility] [place] [facility] [address] [place] [address] Tanja Connell DPM 09/15/20253694Tprfxu76/26/2025Abstract [facility] [address] [place] [address] Gerald Field DO 08/25/2025 1:45 PM ESTOffice Visit [facility] [address] [place] [address] Tanja Connell, DPM Hammer toes of both feet (Primary Dx); Pain in both feet08/25/2025[facility] flowsheet [facility] [address] [place] [address] Tanja Connell DPM 08/25/20259621Rnqiiu53/03/2025 12:40 PM ESTOffice Visit [facility] [address] [place] [address] Gerald Field DO Acquired hammertoes of both feet (Primary Dx); Cellulitis of other specified site; Tinea wodsmy1310/15/2024[facility] flowsheet [facility] [address] [place] [address] Gerald Field DO 08/15/20255722Shwtmz73/28/2025 10:15 AM EDTAncillary Procedure [facility] [address] [place] [address] Falls; Back pain, unspecified back location, unspecified back pain laterality, unspecified chronicity; Hip pain, unspecified lieqegnfdr28/28/2025Results Follow-Up [facility] [address] [place] [address] Frankie Cordon LPN XR hip right 2 or 3 views08/09/20251209Bhyjwf36/27/2025 11:40 AM EDTOffice Visit [facility] [address] [place] [address] Gerald Field DO Scrotal edema (Primary Dx); Type 2 diabetes mellitus without complication, with long-term current use of insulin (HCC); Cellulitis of other specified site; Tinea cruris; Chronic bilateral low back pain, unspecified whether sciatica qqekkbi8008/08/2025 Telephone [facility] [address] [place] [address] Gerald Field, DO 08/08/2025amb flowsheet [facility] [address] [place] [address] Gerald Field, DO 08/08/20257185Cglnkp09/14/2025 9:15 AM EDTProcedure Visit [facility] [address] [place] [address] Tanja Connell, DPYesenia Onychomycosis (Primary Dx); Type II diabetes mellitus with neurological manifestations (HCC); Pain in both feet; Corns and callosities; Hammer toes of both feet07/26/2025amb flowsheet [facility] [address] [place] [address] Tanja Connell DPM 07/26/20257146Gigyai27/23/2025 9:00 AM EDTClinical Support [facility] [address] [place] [address] Urinary tract infection without hematuria, site okghxaexppz28/23/2025Telephone [facility] [address] [place] [address] Frankie Cordon LPN Zwenhbd0707/05/2025Travelfrom Last 3 Months Immunizations ImmunizationAdministration DatesNext DueInfluenza, High Dose Seasonal, Preservative Free06/22/2025,2021,07/28/2019,07/13/2018,07/28/2017, 07/26/2015Influenza, High-dose Seasonal, Quadrivalent, Preservative Free 07/22/2022,2021Influenza, Seasonal, Quadrivalent, Qmnopvioup97/15/2023, 2020Influenza, injectable, /06/2022Influenza, injectable, quadrivalent, preservative free07/28/2019,07/13/2018,07/28/2017,07/26/2015 Influenza, trivalent, wfjddigadz18/31/2024Moderna Bivalent Booster Vaccination 2Pneumococcal Conjugate PCV 3Pneumococcal Polysaccharide SLDH317010/25/2017,11/04/2012RSV, recombinant, protein subunit RSVpreF, adjuvant reconstitu, 120mcg/0.5mL, PF (Arexvy)06/22/2024Tdap111/24/2013Zoster, Recombinant 10/04/2020,08/04/2020Zoster, live10/09/2012 Family History Medical HistoryRelationNameCommentsHeart diseaseFatherElmer KolkerCancerMother Vicky KolkerDiabetesSisterChristine KolkerRelationNameStatusCommentsDaughter2 daughtersFatherElmer KolkerDeceasedMotherVicky KolkerDeceasedSisterChristine KolkerAlive1 sisterSon1 son Social History Tobacco UseTypesPacks/DayYears UsedDateSmoking Tobacco: FormerCigarettes1.522 Smokeless Tobacco: Never Tobacco Cessation:Counseling Given: Yes Alcohol UseStandard Drinks/WeekCommentsNot Currently0 (1 standard drink = 0.6 oz pure alcohol)caffeine intake : [id number] Health LiteracyAnswerDate RecordedHow often do you need to have someone help you when you read instructions, pamphlets, or other written material from your doctor or pharmacy?Rarely 03/25/2024Social Connection and Isolation PanelAnswerDate RecordedFrequency of Communication with Friends and FamilyNot on file03/25/2024Frequency of Social Gatherings with Friends and FamilyNot on file03/25/2024How often do you attend yazdanism or mormonism services?More than 4 times per year03/25/2024o you [...] at all 03/25/2024HQ-2AnswerDate RecordedPatient Health Questionnaire-2 Score0 09/20/2025[facility] - Occupational Stress QuestionnaireAnswerDate [...] steady place to sleep or slept in [facility] (including now)?No03/17/2024Housing Stability Vital SignAnswerDate RecordedIn the [...] InformationValueDate RecordedSex Assigned at BirthNot on fileLegal YmzGmkf9712/25/2022 10:58 PM EDTGender IdentityNot on fileSexual OrientationNot on file Last Filed Vital Signs Vital SignReadingTime TakenCommentsBlood Vahkfxzc495/6009/20/2025 11:11 AM EST Rzqdz906009/20/2025 11:11 AM LXNToeuoemmveq06 ??C (96.8 ??F)09/20/2025 11:11 AM ESTRespiratory Dmxg205611/06/2023 10:17 AM ESTOxygen Qitsbwwvpq99%09/20/2025 11:11 AM ESTInhaled Oxygen Concentration--Pfeksy35.9 kg (174 lb)09/20/2025 11:11 AM RPGMcyydg006.6 cm (5' 6 )09/20/2025 11:11 AM ESTBody Mass Index28.0809/20/2025 11:11 AM EST Plan of Treatment DateTypeDepartmentCare Team (Latest Contact Info)Ukaeicrcjgv47/06/2026 2:45 PM ESTOffice Visit [facility] [address] [place] [address] Tanja Connell DPM [address] [place] [address] 11/01/2025 10:00 AM ESTProcedure Visit [facility] [address] [place] [address] Tanja Connell DPM [address] [place] [address] 02/01/2026 9:05 AM EDTOffice Visit [facility] [address] [place] [address] Mary Davies MD [address] [place] [address] 02/13/2026 10:20 AM EDTOffice Visit [facility] [address] [place] [address] Gerald Field DO [address] [place] [address] Health MaintenanceDue DateLast DoneCommentsDiabetes: Hemoglobin A1C12/10/2025 09/09/2025, 06/08/2025, 02/22/2025, Additional history existsCOVID-19 Vaccine ( season), 10/21/2024, 09/14/2023, Additional history existsDiabetes: Urine Protein Zryndmgkn16, 06/08/2025, 02/22/2025, Additional history existsDiabetes: Retinopathy Keitfitgh74/03/2027 11/15/2024, 04/23/2024neumococcal Vaccine: 65+ EitngEnceacpne68/12/2023, 08/25/2018, 11/04/2012Influenza ZqnoublFtarojaje93/10/2025, 08/12/2024, 08/27/2023, Additional history exists Procedures Procedure NamePriorityDate/TimeAssociated DiagnosisCommentsHEMOGLOBIN F5UKrquucr 09/09/2025 9:29 AM EST Type 2 diabetes mellitus with hyperglycemia, without long-term current use of insulin (HCC) CBC (INCLUDES DIFF/PLT)Vhsiyna7009/09/2025 9:29 AM EST Type 2 diabetes mellitus with hyperglycemia, without long-term current use of insulin (HCC) Hypertension, unspecified type Stage 3a chronic kidney disease (CMS-HCC) COMPREHENSIVE METABOLIC ENEPKTxctaux49/28/2025 9:29 AM EST Type 2 diabetes mellitus with hyperglycemia, without long-term current use of insulin (HCC) Hypertension, unspecified type Stage 3a chronic kidney disease (CMS-HCC) MICROALBUMIN / CREATININE URINE ZLJRTBdrgjsq52/28/2025 9:29 AM EST Stage 3a chronic kidney disease (CMS-HCC) XR HIP 2 OR 3 VW AQTKXAoxarsn46/28/2025 10:20 AM EDT [place] Hip pain, unspecified laterality XR LUMBAR SPINE 2-3 WIOMOWofiklc02/28/2025 10:20 AM EDT [place] Back pain, unspecified back location, unspecified back pain laterality, unspecified chronicity POCT URINALYSIS LGHQLQIMUdctrnz84/23/2025 9:44 AM EDT Urinary tract infection without hematuria, site unspecified DIABETIC RETINOPATHY SCREENING - OU - BOTH VFEVFiizzdk11/03/2025 1:29 PM ESTfrom Last 3 Months or Most Recently Relevant to Health Maintenance Results * Microalbumin / creatinine urine ratio (09/09/2025 9:29 AM EST)ComponentValue Ref RangeTest MethodAnalysis TimePerformed AtPathologist SignatureCreat Ur75.2 Not Estab. mg/dLLABCORPAlbumin Ur11.0Not Estab. ug/mLLABCORPAlb/Creat Ratio Qatir261 - 29 mg/g creatLABCORPComment: ? Normal: ?0 - ??29 ? Moderately increased: 30 - 300 Severely increased: >300 Specimen (Source)Anatomical Location / LateralityCollection Method / Volume Collection TimeReceived TimeUrineUrine specimen obtained by clean catch procedure / Pnhuvqx9009/09/2025 9:29 AM EST09/09/2025 Narrative [facility] - 09/10/2025 1:06 PM EST Performed at: 01 - [address], [place], [place] ??[id number] Otolaryngologist: Nahun Pickering PhD, Phone: ??[phone] Authorizing ProviderResult TypeResult StatusGeorge Mayank Field DOLAB URINE ORDERABLESFinal ResultPerforming OrganizationAddressCity/State/ZIP CodePhone Number [facility] * (ABNORMAL) CBC and differential (09/09/2025 9:29 AM EST)ComponentValueRef RangeTest MethodAnalysis TimePerformed AtPathologist SignatureWBC8.13.4 - 10.8 x10E3/uLLABCORPRBC4.07(L)4.14 - 5.80 x10E6/cNRMORTILGaf91.3(L)13.0 - 17.7 g/dL MQAPHTDMez89.937.5 - 51.0 %IGNKJZGNXP5464 - 97 gZSEWXYUNLIC14.226.6 - 33.0 pg CBORHBFQPMP03.531.5 - 35.7 g/aKBSWSRDFCXA14.311.6 - 15.4 %LAFSROHNkafnhrpf026 150 - 450 x10E3/vRFCEAVZNDspxvfkymsk41Yvz Estab. %YAKBDLLHltkym72Srq Estab. % NKUHILXSsbmklgyk2Ruu Estab. %EZOZZFPBse6Nhk Estab. %ZFXJPQSXrupt5Ftw Estab. % LABCORPNeutrophils Abs4.51.4 - 7.0 x10E3/uLLABCORPLymphs Abs2.70.7 - 3.1 x10E3/uLLABCORPMonocytesAbs0.70.1 - 0.9 x10E3/uLLABCORPEos Abs0.10.0 - 0.4 x10E3/uLLABCORPBaso Abs0.00.0 - 0.2 x10E3/uLLABCORPImmature Ewsaqaumvqvw1Ybi Estab. %LABCORPImmature Grans Abs0.00.0 - 0.1 x10E3/uLLABCORPSpecimen (Source) Anatomical Location / LateralityCollection Method / VolumeCollection Time Received TimeBloodVenous blood specimen / Dqgnasu3609/09/2025 9:29 AM EST 09/09/2025 Narrative [facility] - 09/10/2025 1:06 PM EST Performed at: [address] ??[id number] Otolaryngologist: Nahun Pickering PhD, Phone: ??[phone] Authorizing ProviderResult TypeResult StatusGeevelinroshni Mayank Field [facility] BLOOD ORDERABLESFinal ResultPerforming OrganizationAddWellSpan Waynesboro Hospitalty/State/[facility] CherokeePhone Number [facility] * (ABNORMAL) Hemoglobin A1c (09/09/2025 9:29 AM EST)ComponentValueRef RangeTest MethodAnalysis TimePerformed AtPathologist XxzwckavgTjdF4T9.5(H)4.8 - 5.6 % [facility]PComment: ? Prediabetes: 5.7 - 6.4 Diabetes: >6.4 Glycemic control for adults with diabetes: <7.0 Specimen (Source)Anatomical Location / LateralityCollection Method / Volume Collection TimeReceived TimeBloodVenous blood specimen / Hqdbkny8409/09/2025 9:29 AM EST09/09/2025 Narrative [facility] - 09/10/2025 1:06 PM EST Performed at: [address] ??[id number] Otolaryngologist: Nahun Pickering PhD, Phone: ??[phone] Authorizing ProviderResult TypeResult StatusGevtroshni Mayank Field [facility] BLOOD ORDERABLESFinal ResultPerforming OrganizationAddTem[facility]/State/[facility] CodePhone Number [facility] * (ABNORMAL) Comprehensive metabolic panel (09/09/2025 9:29 AM EST)Component ValueRef RangeTest MethodAnalysis TimePerformed AtPathologist SignatureGlucose 119(H)70 - 99 mg/wTNTKJISIQUX421 - 27 mg/dLLABCORPCreat1.42(H)0.76 - 1.27 mg/zYRDUWZXAUVPX90(L)>59 mL/min/1.73LABC[facility]PBUN/Creat Krgdp8147 - 24[facility] Xhwdqz142088 - 144 mmol/[facility]ABCORPPotassium4.33.5 - 5.2 mmol/EYQSGZGOIfffdqfv306 (H)96 - 106 mmol/LLABCORPCarbon Mtkmysf4854 - 29 mmol/[facility]ABCORPCalcium9.08.6 - 10.2 mg/dLLABCORPProtein Total6.56.0 - 8.5 g/dLLABCORPAlbumin3.6(L)3.8 - 4.8 g/dLLABCORPGlobulin Total2.91.5 - 4.5 g/dLLABCORPBili Total0.40.0 - 1.2 mg/dL LABCORPAlk Mwfwipgnlcg700(H)47 - 123 IU/IVENGWQVYLR979 - 40 IU/GLLNARZSVOJ56 - 44 IU/[facility]PSpecimen (Source)Anatomical Location / LateralityCollection Method / VolumeCollection TimeReceived TimeBloodVenous blood specimen / Idoguhh1709/09/2025 9:29 AM EST09/09/2025 Narrative [facility] - 09/10/2025 1:06 PM EST Performed at: 01 - [address] ??[id number] Otolaryngologist: Nahun Pickering PhD, Phone: ??[phone] Authorizing ProviderResult TypeResult StatusGeorroshni Field [facility] BLOOD ORDERABLESFinal ResultPerforming OrganizationAddressCity/State/[facility] CodePhone Number [facility] * XR hip right 2 or 3 [...] BY: Roberto Anders DO Authorizing ProviderResult TypeResult StatusGeorge Mayank Field DOIMG XR PROCEDURES Final Result * XR lumbar [...] BY: Roberto Anders DO Authorizing ProviderResult TypeResult Katie Field DOIMG XR PROCEDURES Final Result * POCT Urinalysis dipstick (07/05/2025 9:44 AM EDT)ComponentValueRef RangeTest MethodAnalysis TimePerformed AtPathologist SignatureColor, UAYellowClarity, UA ClearGlucose, UA2+Negative - 2000(110) ++++ mg/dLBilirubin, UANegativeNegative - 4(70) +++ mg/dLKetones, UANegativeNegative - 160(16) ++++ mg/dLSpec Grav, UA 1.0151 - 1.03Blood, UANegativeNegative - 50 Dario/mcLpH, UA5.05 - 9Protein, UA NegativeNegative - 2000(20) ++++ mg/dLUrobilinogen, UA1.00.2 - 12 mg/dL Leukocytes, UANegativeNegative - 500+++ Jenn/mcLNitrite, UANegativeNegative - PositiveSpecimen (Source)Anatomical Location / LateralityCollection Method / VolumeCollection TimeReceived JnkmGrslv49/23/2025 9:44 AM EDT Narrative Authorizing ProviderResult TypeResult Katie Field DOPOINT OF CARE TEST ENTER/EDIT ORDERABLESFinal Result * (ABNORMAL) Diabetic Retinopathy Screening - OU - Both Eyes (11/15/2024 1:29 PM EST)Anatomical RegionLateralityModalityHeadOther Narrative Authorizing ProviderResult TypeResult StatusGerald Field DOOPHTH PHOTOGRAPHY Final Result from Last 3 Months or Most Recently Relevant to Health Maintenance Insurance * Guarantor: Ramon MarieeAccomady TypeRelation to PatientDate of BirthPhone Billing AddressPersonal/IsxubdCmmu1945 [id number] [address] Advance Directives TypeDate RecordedPatient RepresentativeExplanationAdvance Directives and Living Will.02.01 living will Care Teams Team MemberRelationshipSpecialtyStart DateEnd Date Gerald Field DO [address] [address] [place] [address] PCP - [facility]Fap[facility] Medicine02/18/23 Gerald Field DO [address] [place] [address] PCP - ACO Reach12/12/23 Gregory Ybarra MD [address] [place] [address] Referring PhysicianSventura county medical center Zvncbmfg68/29/24 Sunny Vasquez DO [address] [facility] [place] [address] Bqvhhvisvdbsyp79/29/24 Eusebio Guerin MD [address] [place] [address] [place] [address] Referring XagtsnbyuLwsyhpeil09/25/24 Hillary Wilhelm PA [address] [facility] [address] [place] [address] Physician AssistantNeurology12/29/24
[2025-09-30 20:40] LABS: Hematocrit 37.2 % (42.0-54.0); Hemoglobin 12.3 g/dL (14.0-18.0); Immature Granulocytes Abs Auto 0.04 10^3/uL (0.00-0.03); Immature Granulocytes Pct Auto 0.4 % (0.0-0.5); Lymphocytes Absolute Auto 2.8 10^3/uL (1.2-3.8); Mean Corpuscular HGB Conc 33.1 g/dL (29.9-35.2); Mean Corpuscular Hemoglobin 30.2 pg (25.9-34.0); Mean Corpuscular Volume 91.4 fL (80.0-94.0); Platelet Count 335 10^3/uL (150-450); Red Blood Count 4.07 10^6/uL (4.70-6.10); White Blood Count 11.2 10^3/uL (4.0-11.0)
[2025-09-30 20:51] LABS: Anion Gap 12.7; Blood Urea Nitrogen 38.0 mg/dL (7.0-18.0); Calcium 9.2 mg/dL (8.5-10.1); Carbon Dioxide 21.1 mmol/L (21.0-32.0); Chloride 103 mmol/L (98-107); Estimated GFR (African America 48 (>=60 mL/min/1.73m^2); Estimated GFR (Non-African Ame 39 (>=60 mL/min/1.73m^2); Glucose 126 mg/dL (74-106); Potassium 3.8 mmol/L (3.5-5.1); Sodium 133 mmol/L (136-145)
[2025-09-30] MEDS: 0.9 % SODIUM CHLORIDE 1,000 ML 999 ML IV (21:15)
[2025-09-30 22:42] LABS: Glucose Urine UA 500 mg/dL (NEGATIVE)
[2025-09-30 22:43] VITALS: BP 150/63; PULSE 65; O2SAT 99
[2025-09-30 22:51] LABS: Cast Seen? NONE SEEN #/LPF (NONE SEEN); Crystals Seen? None Seen #/HPF (None Seen); Urine Culture Indicated NO
== END 2025-09-30 23:21 | disposition home or self-care (01) ==
PROVIDERS: Emergency Provider Internal Medicine; PCP Family Medicine
DX: S83.91XA Sprain of unspecified site of right knee, initial encounter (principal); S09.8XXA Other specified injuries of head, initial encounter; W01.198A Fall on same level from slipping, tripping and stumbling with subsequent striking against other object, initial encounter; Y92.002 Bathroom of unspecified non-institutional (private) residence as the place of occurrence of the external cause
CPT/HCPCS: 36415; 70450; 72125; 72131; 73502; 73562; 76376; 80048; 81001; 85025; 99285